=== PATIENT | male | born 1955 | race Caucasian/White ===

== ENCOUNTER 2020-05-01 12:08 | Emergency (ER) | payer OTHER, SELFPAY ==
--- NOTE | 2020-05-01 | ECG_ITS ---
Test Reason : CHEST PAIN Blood Pressure : / mmHG Vent. Rate : 082 BPM Atrial Rate : 357 BPM P-R Int : 000 ms QRS Dur : 086 ms QT Int : 392 ms P-R-T Axes : 000 -01 -10 degrees QTc Int : 457 ms Atrial fibrillation Abnormal ECG When compared to the previous EKG of No significant changes seen Referred By: Generic ED Physician Electronically Signed By:ANDIE DAVISON MD
[2020-05-01 12:40] VITALS: BP 157/98; PULSE 78; RESP 15; TEMP 36.6; O2SAT 98; BMI 35.6
--- NOTE | 2020-05-01 13:07 | XR_ITS ---
EXAMINATION: XR CHEST CLINICAL INFORMATION: Chest pain. COMPARISON: Chest 11/10/2018 TECHNIQUE: 2 views of the chest were obtained. FINDINGS: The lungs are well-expanded and clear of acute process. The heart size and pulmonary vascularity is normal. There is a healed fracture left posterior seventh rib. There is moderate spondylosis mid and lower dorsal spine. No lytic process. XR/XR chest 2V IMPRESSION: Unremarkable chest exam. Healing fracture left posterior seventh rib
[2020-05-01 13:09] VITALS: BP 154/106; PULSE 78; PULSE 79; RESP 16; O2SAT 96
--- NOTE | 2020-05-01 13:13 | ED_ITS ---
HPI - Chest Pain General Chief Complaint: Chest Pain Stated Complaint: chest pain Time Seen by Provider: 05/01/20 13:06 Source: patient and full time staff interpreter Mode of arrival: ambulatory Limitations: language barrier (conference interpreter) History of Present Illness HPI narrative: 64-year-old male with a past medical history of AFib on Eliquis, hypertension, hyperlipidemia, hernia repair here with chest and abdominal pain since 15:00 yesterday. The patient tells me he was eating shrimp yesterday at 15:00 and started to feel heaviness in his chest and upper abdomen. Intermittent pain since then. Worsened with eating, drinking and taking his morning medications. No associated nausea, diaphoresis, shortness of breath, dizziness, vomiting, fevers, chills, cough. MD complaint: chest heaviness Onset (ago): day(s) (<24 hrs) Timing of current episode: episodic Onset: after eating Pain location: substernal Pain radiation: abdomen Severity: mild Quality: heaviness Relieving factors: nothing Exacerbating factors: eating Treatment prior to arrival: none Related Data Allergies Allergy/AdvReac Type Severity Reaction Status Date / Time Iodinated Contrast Media Allergy Unknown HIVES Unverified 01/27/20 16:43 [CONTRAST, IV] kiwi [KIWI] Allergy Unknown THROAT Unverified 01/27/20 16:43 SWELLING kiwi Allergy Unknown anaphylaxis Uncoded 01/10/20 00:00 IV contrast AdvReac Unknown swelling Uncoded 01/10/20 00:00 Review of Systems Review of Systems: Yes all other systems are reviewed and are negative Constitutional: Constitutional: Reports no additional constitutional complaints, Denies body ache(s), Denies chills, Denies fever(s), Denies headache(s) and Denies weakness Eyes: Eyes: Reports no additional eye complaints and Denies change in vision ENT: Reports system reviewed and no additional complaints, except as d ocumented, Denies dizziness, Denies headache(s), Denies nasal congestion, Denies nasal discharge and Denies neck pain Cardiovascular: Cardiovascular: Reports no additional cardiovascular complaints, Reports chest pain, Denies leg edema and Denies dyspnea Respiratory: Respiratory: Reports no additional respiratory complaints, Denies cough and Denies dyspnea Gastrointestinal: Gastrointestinal: Reports no additional gastrointestinal complaints, Reports abdominal pain, Denies diarrhea, Denies nausea and Denies vomiting Genitourinary: Genitourinary: Denies urinary incontinence Musculoskeletal: Musculoskeletal: Reports no additional musculoskeletal complaints, Denies back pain, Denies arthralgias, Denies joint swelling, Denies neck pain, Denies numbness and Denies tingling Integumentary/Breasts: Skin/Breast: Reports system reviewed and no additional complaints, except as docu and Denies rash Neurologic: Reports system reviewed and no additional complaints, except as documented, Denies Abnormal speech present, Denies dizziness, Denies headache(s), Denies numbness, Denies tingling and Denies weakness [facility] Past Medical History Medical History Anxiety HTN (hypertension) Hypothyroid Palpitation Social History Social History Alcohol intake: never Smoking Status: Former smoker Use of substances other than those prescribed or required for medical reasons: No Advance Directives: No Advance Directives Information Provided: No Physical Exam Vital Signs: Vital Signs: Last Vital Signs Temp 98 F 05/01/20 12:40 Pulse 74 05/01/20 14:18 Resp 20 05/01/20 14:18 BP 164/98 H 05/01/20 14:18 Pulse Ox 98 05/01/20 14:18 Body Mass Index 35.6 Const: General: cooperative, healthy appearing, comfortable and no acute distress Orientation/consciousness: patient oriented x3 Limitations: no limitations HENMT: Head: Yes normal to inspection Ears: hearing grossly normal bilaterally General nose exam: Normal external nose present Face and sinus: Yes normal facial exam Mouth: Normal oral and palatal mucosa present Throat: Yes posterior oropharynx normal Eyes: General: appearance normal, both eyes and all related structures Pupils: Equal, round and reactive pupils present Neck: Neck: Yes normal visual inspection Chest: Other: Central chest tender to palpation Chest palpation & inspection: normal inspection of the chest Resp: Effort & Inspection: normal respiratory effort Auscultation: clear to auscultation bilaterally Cardio: Rate: regular rate Rhythm: regular rhythm Peripheral pulses: Peripheral pulses 2+ throughout GI: Inspection: Yes normal to inspection Palpation (GI): Soft to palpation and Tenderness to palpation present (GI) (No rebound or guarding) in the epigastrum Auscultation: normal bowel sounds Back/Spine/Pelvis: Thoracic/Lumbar Spine: thoracic and lumbar spine normal to inspection Skin: General skin exam: no rashes or lesions noted Neuro: General: patient oriented x3, no focal motor deficits and normal sensation to monofilament Cranial nerves: Yes Equal, round and reactive pupils present Cognition (Neuro): normal cognition Speech: No Abnormal speech present Gait exam (Neuro): Normal gait present Motor exam (neuro): 5/5 motor strength present throughout Extrem: General: Yes normal to inspection Course Course Course Narrative: 64-year-old male here with upper abdominal pain and chest pain after eating shrimp yesterday. No other associated symptoms. Patient has mild tenderness in the epigastric and some mild tenderness over the central chest. Well appearing, stable vital signs. Will check labs including troponin, EKG, chest x-ray. 1430-EKG, chest x-ray unremarkable. Labs including troponin unremarkable as well. The patient tells me he has pain is completely resolved after receiving a GI cocktail here. More likely gastritis or GERD. Discussed dietary changes with the patient. Reviewed follow-up with primary care. Reviewed worrisome signs and symptoms and when to return to the emergency department. Comfortable discharge home. MDM - Chest Pain MDM Narrative Medical decision making narrative: ACS, gastritis, GERD, cholecystitis, cholelithiasis Less likely ACS with symptoms greater than 24 hours, negative troponin and unr emarkable EKG from baseline. Less likely gallstones or acute cholecystitis with no right upper quadrant abdominal pain, normal LFTs, resolved min of symptoms with GI cocktail here. More likely gastritis or GERD. Medical Records Data Attestation: I reviewed the patient's medical records. Lab Data Attestation: I reviewed the patient's lab results. Result diagrams: 05/01/20 13:30 05/01/20 13:30 Labs: Lab Results 05/01/20 05/01/20 05/01/20 Range/Units 13:30 13:30 13:30 WBC 7.4 (4.8-10.8) X10*3/uL RBC 5.04 (4.60-5.80) X10*6/uL Hgb 16.0 (14.0-18.0) g/dl Hct 46.4 (42-52) % MCV 92.1 (80-98) fL MCH 31.7 (27.0-33.0) pg MCHC 34.5 (31.0-36.0) g/dl RDW 11.7 (11.0-16.0) % Plt Count 200 (160-400) X10*3/uL MPV 10.5 (9.4-12.4) fL Immature Gran % (Auto) 0.4 (0.0-0.4) % Neut % (Auto) 65.5 (45-73) % Lymph % (Auto) 20.3 (20-40) % Lanier % (Auto) 12.2 H (2-11) % Eos % (Auto) 1.1 (0-4) % Baso % (Auto) 0.5 (0-2) % Lymph # (Auto) 1.5 (1.2-4.9) X10*3/uL Lanier # (Auto) 0.9 (0.1-1.2) X10*3/uL Eos # (Auto) 0.1 (0.0-0.4) X10*3/uL Baso # (Auto) 0.0 (0.0-0.2) X10*3/uL Abs Immat Gran (auto) 0.03 (0.00-0.03) X10*3/uL Absolute Neuts (auto) 4.9 (2.0-8.3) X10*3/uL Absolute Nucleated RBC 0.000 (0.0-0.012) X10*3/uL Nucleated RBC % (auto) 0.0 (0.0-0.2) /100WBC Hold Blue Top Sodium 141 (135-145) mmol/L Potassium 3.7 (3.3-5.1) mmol/l Chloride 104 (96-108) mmol/L Carbon Dioxide 27 (22-29) mmol/L Anion Gap 14 (12-20) BUN 14 (9-16) mg/dL Creatinine 0.94 (0.5-1.4) mg/dL Estim Creat Clear Calc 87.9 Estimated GFR > 60 Random Glucose 102 (60-115) mg/dL Calcium 9.4 (8.4-10.2) mg/dL Magnesium 2.1 (1.6-2.6) mg/dL Total Bilirubin 1.1 H (0.0-1.0) mg/dL Direct Bilirubin 0.4 (0.0-0.5) mg/dL AST 30 (5-37) U/L ALT 37 (0-40) U/L Alkaline Phosphatase 72 (39-117) U/L Troponin I High Sens < 3.5 (<3.5-35.0) ng/L Total Protein 7.5 (6.5-8.0) g/dL Albumin 4.5 (3.5-5.0) g/dL Lipase 59 (8-78) U/L 05/01/20 Range/Units 13:30 WBC (4.8-10.8) X10*3/uL RBC (4.60-5.80) X10*6/uL Hgb (14.0-18.0) g/dl Hct (42-52) % MCV (80-98) fL MCH (27.0-33.0) pg MCHC (31.0-36.0) g/dl RDW (11.0-16.0) % Plt Count (160-400) X10*3/uL MPV (9.4-12.4) fL Immature Gran % (Auto) (0.0-0.4) % Neut % (Auto) (45-73) % Lymph % (Auto) (20-40) % Lanier % (Auto) (2-11) % Eos % (Auto) (0-4) % Baso % (Auto) (0-2) % Lymph # (Auto) (1.2-4.9) X10*3/uL Lanier # (Auto) (0.1-1.2) X10*3/uL Eos # (Auto) (0.0-0.4) X10*3/uL Baso # (Auto) (0.0-0.2) X10*3/uL Abs Immat Gran (auto) (0.00-0.03) X10*3/uL Absolute Neuts (auto) (2.0-8.3) X10*3/uL Absolute Nucleated RBC (0.0-0.012) X10*3/uL Nucleated RBC % (auto) (0.0-0.2) /100WBC Hold Blue Top SEE NOTE Sodium (135-145) mmol/L Potassium (3.3-5.1) mmol/l Chloride (96-108) mmol/L Carbon Dioxide (22-29) mmol/L Anion Gap (12-20) BUN (9-16) mg/dL Creatinine (0.5-1.4) mg/dL Estim Creat Clear Calc Estimated GFR Random Glucose (60-115) mg/dL Calcium (8.4-10.2) mg/dL Magnesium (1.6-2.6) mg/dL Total Bilirubin (0.0-1.0) mg/dL Direct Bilirubin (0.0-0.5) mg/dL AST (5-37) U/L ALT (0-40) U/L Alkaline Phosphatase (39-117) U/L Troponin I High Sens (<3.5-35.0) ng/L Total Protein (6.5-8.0) g/dL Albumin (3.5-5.0) g/dL Lipase (8-78) U/L Imaging Data Chest x-ray: Attestation: I personally reviewed and interpreted this imaging study as follows: Radiologist's impression: EXAMINATION: XR CHEST CLINICAL INFORMATION: Chest pain. COMPARISON: Chest 11/10/2018 TECHNIQUE: 2 views of the chest were obtained. FINDINGS: The lungs are well-expanded and clear of acute process. The heart size and pulmonary vascularity is normal. There is a healed fracture left posterior seventh rib. There is moderate spondylosis mid and lower dorsal spine. No lytic process. XR/XR chest 2V IMPRESSION: Unremarkable chest exam. Healing fracture left posterior seventh rib ECG Data ECG #1: Attestation: I personally reviewed and interpreted this ECG as follows: ECG interpretation date: 05/01/20 ECG interpretation time: 12:12 Interpretation: AFib with a rate of 82, normal QRS, normal QT Discharge Plan Discharge Clinical Impression: Gastritis Qualifiers: Gastritis type: unspecified gastritis Chronicity: acute Gastritis bleeding: without bleeding Qualified Code(s): K29.00 - Acute gastritis without bleeding Patient Disposition: Home, Self-Care Instructions: Gastritis (ED) Additional Instructions: Avoid fatty, greasy, spicy foods. After eating make sure you stay sitting up for at least 30 minutes. Follow-up with your primary care doctor Continue your [facility] Referrals: Gemini Chavez MD [Primary Care Provider] - 2 days Interventions: ED Discharge Assessment Last Done: 05/01/20 15:08 Discharge Date/Time: 05/01/20 15:09
[2020-05-01] MEDS: Lidocaine HCl Viscous 2 % 15 ML SOLUTION MUCOUS MEM (13:36)
[2020-05-01] MEDS: Magnesium Hydrox/Alum Hydrox 30 ML ORAL.SUSP PO (13:37)
[2020-05-01 13:38] LABS: MANUAL DIFF FLAG NO
[2020-05-01] MEDS: Famotidine/PF 20 MG/2 ML VIAL IVPUSH (13:39)
[2020-05-01 13:44] LABS: Basophils Percent Auto 0.5 % (0-2); Eosinophils Absolute Auto 0.1 X10*3/uL (0.0-0.4); Eosinophils Percent Auto 1.1 % (0-4); Hematocrit 46.4 % (42-52); Imm Gran Abs Auto 0.03 X10*3/uL (0.00-0.03); Imm Gran Pct Auto 0.4 % (0.0-0.4); Lymphocytes Absolute Auto 1.5 X10*3/uL (1.2-4.9); Lymphocytes Percent Auto 20.3 % (20-40); Mean Corpuscular HGB Conc 34.5 g/dl (31.0-36.0); Mean Corpuscular Hemoglobin 31.7 pg (27.0-33.0); Mean Corpuscular Volume 92.1 fL (80-98); Mean Platelet Volume 10.5 fL (9.4-12.4); Monocytes Absolute Auto 0.9 X10*3/uL (0.1-1.2); Monocytes Percent Auto 12.2 % (2-11); Neutrophils Absolute Auto 4.9 X10*3/uL (2.0-8.3); Neutrophils Percent Auto 65.5 % (45-73); Platelet Count 200 X10*3/uL (160-400); Red Blood Count 5.04 X10*6/uL (4.60-5.80); Red Cell Distribution Width 11.7 % (11.0-16.0); White Blood Count 7.4 X10*3/uL (4.8-10.8)
[2020-05-01 14:09] LABS: Alanine Aminotransferase 37 U/L (0-40); Albumin Level 4.5 g/dL (3.5-5.0); Alkaline Phosphatase 72 U/L (39-117); Anion Gap 14 (12-20); Aspartate Amino Transferase 30 U/L (5-37); Bilirubin Direct 0.4 mg/dL (0.0-0.5); Bilirubin Total 1.1 mg/dL (0.0-1.0); Blood Urea Nitrogen 14 mg/dL (9-16); Calcium 9.4 mg/dL (8.4-10.2); Carbon Dioxide 27 mmol/L (22-29); Chloride 104 mmol/L (96-108); Creatinine Clr Calc Pharmacy 87.9; Estimated Glomerular Filt Rate > 60; Glucose Random 102 mg/dL (60-115); Lipase 59 U/L (8-78); Magnesium 2.1 mg/dL (1.6-2.6); Potassium 3.7 mmol/l (3.3-5.1); Sodium 141 mmol/L (135-145); Total Protein 7.5 g/dL (6.5-8.0)
[2020-05-01 14:15] LABS: Troponin-I High Sensitivity < 3.5 ng/L (<3.5-35.0)
[2020-05-01 14:18] VITALS: BP 164/98; PULSE 74; RESP 20; O2SAT 98
== END 2020-05-01 15:09 | disposition home or self-care (01) ==
PROVIDERS: Nurse Practitioner Family; Emergency Provider Emergency Medicine; PCP Internal Medicine
DX: K29.00 Acute gastritis without bleeding (principal); I10 Essential (primary) hypertension
CPT/HCPCS: 36415; 71046; 80048; 80076; 83690; 83735; 84484; 85025; 93005; 99284

== ENCOUNTER → 2020-05-24 13:29 | Outpatient (BNVA) | payer OTHER, SELFPAY | PROVIDERS: PCP Internal Medicine; Visit Provider Internal Medicine | DX: J44.9 Chronic obstructive pulmonary disease, unspecified (principal); J30.9 Allergic rhinitis, unspecified; G47.33 Obstructive sleep apnea (adult) (pediatric); E66.9 Obesity, unspecified; Z68.36 Body mass index [BMI] 36.0-36.9, adult; Z79.51 Long term (current) use of inhaled steroids; Z71.3 Dietary counseling and surveillance | CPT/HCPCS: 99212 ==

== ENCOUNTER → 2020-06-30 08:27 | Outpatient (BNVA) | payer OTHER, SELFPAY | PROVIDERS: PCP Internal Medicine; Visit Provider Nurse Practitioner | DX: K76.0 Fatty (change of) liver, not elsewhere classified (principal); K21.9 Gastro-esophageal reflux disease without esophagitis; K76.9 Liver disease, unspecified | CPT/HCPCS: Q3014 ==

== ENCOUNTER 2020-07-19 10:34 | Outpatient (REF) | payer OTHER, SELFPAY | END 2020-07-19 10:35 | disposition home or self-care (01) | LOC: HO.LAB 10:34 | PROVIDERS: Visit Provider Internal Medicine | DX: Z20.822 Contact with and (suspected) exposure to COVID-19 (principal) | CPT/HCPCS: 36415; C9803; U0003; U0005 ==

== ENCOUNTER → 2020-07-21 09:04 | Outpatient (BNVA) | payer OTHER, SELFPAY | PROVIDERS: PCP Internal Medicine; Visit Provider Nurse Practitioner | DX: Z13.89 Encounter for screening for other disorder (principal) | CPT/HCPCS: Q3014 ==

== ENCOUNTER 2020-07-26 06:21 | Outpatient (REF) | payer OTHER, SELFPAY ==
[2020-07-26 07:33] LABS: Alanine Aminotransferase 46 U/L (0-40); Albumin Level 4.2 g/dL (3.5-5.0); Alkaline Phosphatase 67 U/L (39-117); Aspartate Amino Transferase 31 U/L (5-37); Bilirubin Direct 0.3 mg/dL (0.0-0.5); Bilirubin Total 1.1 mg/dL (0.0-1.0); Total Protein 6.9 g/dL (6.5-8.0)
[2020-07-28 12:21] LABS: Alpha Fetoprotein 3.3 ng/mL (<6.1)
== END 2020-07-26 06:22 | disposition home or self-care (01) ==
LOC: HO.LAB 06:21
PROVIDERS: PCP Internal Medicine; Visit Provider Nurse Practitioner
DX: K76.0 Fatty (change of) liver, not elsewhere classified (principal)
CPT/HCPCS: 36415; 80076; 82105

== ENCOUNTER 2020-08-11 07:40 | Outpatient (REF) | payer OTHER, SELFPAY ==
--- NOTE | ~2020-08-11 | US_ITS ---
EXAMINATION: US ABDOMEN COMPLETE CLINICAL INFORMATION: Fatty liver. COMPARISON: None TECHNIQUE: Real-time imaging of the abdominal viscera. FINDINGS: PANCREAS: Normal. ABDOMINAL AORTA: The proximal, mid, and distal segments are normal in caliber. INFERIOR VENA CAVA: Visualized portions are normal. LIVER: The liver is normal in size. The liver contour is normal. Parenchymal echogenicity is increased. No focal hepatic lesion. There is no intrahepatic biliary duct dilatation seen. There is no liver mass seen on today's exam. GALLBLADDER: Normal. The gallbladder is physiologically distended without evidence of stones, sludge, polyps, wall thickening or pericholecystic fluid. COMMON BILE DUCT: Normal in caliber measuring 0.3 cm in diameter. RIGHT KIDNEY: There is an echogenic stone midpole measuring 0.4 x 0.4 cm. There are 2 anechoic cysts. A midpole cyst measures 1.7 x 1.4 x 1.7 cm. Upper pole cyst measures 2.2 x 2.4 x 2.0 cm. No hydronephrosis. No renal calculi or focal parenchymal lesions. The kidney measures 11.7 cm in maximum dimension. LEFT KIDNEY: Normal. No hydronephrosis. No renal calculi or focal parenchymal lesions. The kidney measures 11.0 cm in maximum dimension. SPLEEN: Normal. The spleen measures 10.2 cm in maximum dimension. FREE FLUID: None. US/US abdomen complete IMPRESSION: Nonobstructive echogenic stone midpole and 2 cysts in right kidney. Mild hepatic steatosis. No focal lesion seen on the today's exam. On previous exam, there was a 1.9 cm heterogeneous lesion in the left hepatic lobe.
== END 2020-08-11 07:41 | disposition home or self-care (01) ==
LOC: HO.US 07:40
PROVIDERS: PCP Internal Medicine; Visit Provider Nurse Practitioner
DX: K76.0 Fatty (change of) liver, not elsewhere classified (principal)
CPT/HCPCS: 76700

== ENCOUNTER 2020-11-13 14:16 | Emergency (ER) | payer OTHER, SELFPAY ==
--- NOTE | ~2020-11-13 | XR_ITS ---
EXAMINATION: XR CHEST [id number] CLINICAL INFORMATION: Cough, wheezing. Right foot injury to the great toe. COMPARISON: Chest radiograph done on 05/01/2020. TECHNIQUE: 2 views of the chest and 3 views of the right foot were obtained. FINDINGS: Chest: Both lungs are symmetrically expanded and appear clear. The cardiac mediastinal silhouette is within normal limit. No evidence of any pleural effusion or pneumothorax. No significant change. Right foot: The bony alignment is intact. The cortices are intact. The articular margins, joint space appear unremarkable. Mild diffuse osteopenia is noted. This noted at the insertional site of the Achilles tendon to the calcaneus. XR/XR chest 2V IMPRESSION: 1. Unremarkable radiographic appearance of the chest, unchanged since 05/01/2020. 2. No radiographic evidence of any displaced right great toe fracture. Mild diffuse osteopenia.
--- NOTE | ~2020-11-13 | XR_ITS ---
EXAMINATION: XR CHEST [id number] CLINICAL INFORMATION: Cough, wheezing. Right foot injury to the great toe. COMPARISON: Chest radiograph done on 05/01/2020. TECHNIQUE: 2 views of the chest and 3 views of the right foot were obtained. FINDINGS: Chest: Both lungs are symmetrically expanded and appear clear. The cardiac mediastinal silhouette is within normal limit. No evidence of any pleural effusion or pneumothorax. No significant change. Right foot: The bony alignment is intact. The cortices are intact. The articular margins, joint space appear unremarkable. Mild diffuse osteopenia is noted. This noted at the insertional site of the Achilles tendon to the calcaneus. XR/XR foot RT 2V IMPRESSION: 1. Unremarkable radiographic appearance of the chest, unchanged since 05/01/2020. 2. No radiographic evidence of any displaced right great toe fracture. Mild diffuse osteopenia.
[2020-11-13 14:30] VITALS: BP 152/95; PULSE 91; RESP 22; TEMP 37.3; O2SAT 98; BMI 35.5
--- NOTE | 2020-11-13 15:48 | ECG_ITS ---
Test Reason : SOB/CHEST PAIN Blood Pressure : / mmHG Vent. Rate : 093 BPM Atrial Rate : 054 BPM P-R Int : 000 ms QRS Dur : 084 ms QT Int : 372 ms P-R-T Axes : 000 034 015 degrees QTc Int : 462 ms Atrial fibrillation Abnormal ECG No significant changes when compared with the previous EKG of 01 may 2020 Referred By: Summer Swenson Electronically Signed By:ANDREWS MARTINS
--- NOTE | 2020-11-13 16:05 | ED.SOB ---
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 Also is feeling wheezy and using his albuterol MDI with continued symptoms. No fevers, chills, body aches or leg swelling or pain. No weight gain. Patient has been compliant with all of his medications. He did receive a COVID vaccine 2 months ago x 2 (moderna). no recent travel or sick contact. patient is also complaining of right great toe pain. He tells me yesterday a heavy object fall on his toe causing pain. Related Data Home Medications Medication Instructions Recorded Confirmed acetaminophen 500 mg tablet 500 mg PO Q6H PRN 05/24/20 apixaban 5 mg tablet 5 mg PO BID 05/24/20 cholecalciferol (vitamin D3) 50 50 mcg PO DAILY 05/24/20 mcg (2,000 unit) tablet clonazepam 1 mg tablet 1 mg PO BID PRN 05/24/20 flu vacc [id number] 6mos up(PF) ml IM 05/24/20 fluticasone propionate 220 2 puff INHALATION BID 05/24/20 mcg/actuation HFA aerosol inhaler furosemide 40 mg tablet 0 mg PO 05/24/20 hydroxyzine pamoate 25 mg capsule 25 mg PO BID 05/24/20 levothyroxine 100 mcg tablet 100 mcg PO DAILY 05/24/20 lisinopril 40 mg tablet 40 mg PO DAILY 05/24/20 loratadine 10 mg tablet 10 mg PO DAILY 05/24/20 metoprolol succinate 200 mg 200 mg PO DAILY 05/24/20 tablet,extended release 24 hr rosuvastatin 40 mg tablet 40 mg PO DAILY 05/24/20 umeclidinium 62.5 mcg/actuation 1 inh INHALATION DAILY 05/24/20 blister powder for inhalation vitamin E (dl, acetate) 400 unit 400 unit PO BID 05/24/20 capsule zolpidem 10 mg tablet 10 mg PO BEDTIME PRN 05/24/20 Previous Rx's Medication Instructions Recorded omeprazole 20 mg capsule,delayed 20 mg PO DAILY 30 Days #30 cap 07/21/20 release benzonatate [Tessalon Perles] 100 mg PO TID PRN #10 cap 11/13/20 prednisone 40 mg PO DAILY #8 tab 11/13/20 Allergies Allergy/AdvReac Type Severity Reaction Status Date / Time Iodinated Contrast Media Allergy Unknown HIVES Verified 07/21/20 09:09 [CONTRAST, IV] kiwi [KIWI] Allergy Unknown THROAT Verified 07/21/20 09:09 SWELLING Review of Systems Review of Systems: Yes all other systems are reviewed and are negative Constitutional: Constitutional: Reports no additional constitutional complaints, Denies body ache(s), Denies chills, Denies fever(s), Denies headache(s) and Denies weakness Eyes: Eyes: Reports no additional eye complaints and Denies change in vision ENT: Reports system reviewed and no additional complaints, except as documented, Denies dizziness, Denies headache(s), Denies nasal congestion, Denies nasal discharge and Denies neck pain Cardiovascular: Cardiovascular: Reports no additional cardiovascular complaints, Reports chest pain, Denies leg edema and Reports dyspnea Respiratory: Respiratory: Reports no additional respiratory complaints, Reports cough and Reports dyspnea Gastrointestinal: Gastrointestinal: Reports no additional gastrointestinal complaints, Denies abdominal pain, Denies diarrhea, Denies nausea and Denies vomiting Genitourinary: Genitourinary: Denies urinary incontinence Musculoskeletal: Musculoskeletal: Reports no additional musculoskeletal complaints, Denies back pain, Reports arthralgias, Denies joint swelling, Denies neck pain, Denies numbness and Denies tingling Integumentary/Breasts: Skin/Breast: Reports system reviewed and no additional complaints, except as docu and Denies rash Neurologic: Reports system reviewed and no additional complaints, except as documented, Denies Abnormal speech present, Denies dizziness, Denies headache(s), Denies numbness, Denies tingling and Denies weakness PMFSH Past Medical History Attestation statement: The following information was validated with the patient. Source: old records reviewed and nursing notes reviewed Medical History (Updated 11/13/20 @ 18:05 by Summer Swenson NP) Afib Allergic rhinitis Anxiety CHF (congestive heart failure) COPD (chronic obstructive pulmonary disease) HTN (hypertension) Hypothyroid Obesity (BMI 30-39.9) CE (obstructive sleep apnea) Palpitation Surgical History History of surgery on arm Hx of colonoscopy Hx of eye surgery Hx of knee surgery Hx of tonsillectomy Family History Family History Family/Other No problems noted. Social History Social History Alcohol intake: never Patient Tobacco Use Status: Never used Tobacco Use of substances other than those prescribed or required for medical reasons: No Advance Directives: No Advance Directives Information Provided: No Physical Exam Vital Signs: Vital Signs: Last Vital Signs Temp 98.0 F 11/13/20 16:56 Pulse 105 H 11/13/20 16:56 Resp 20 11/13/20 16:56 BP 147/99 H 11/13/20 16:56 Pulse Ox 97 11/13/20 16:56 Body Mass Index 35.5 Const: General: cooperative, healthy appearing, comfortable and no acute distress Orientation/consciousness: patient oriented x3 Limitations: no limitations HENMT: Head: Yes normal to inspection Ears: hearing grossly normal bilaterally General nose exam: Normal external nose present Face and sinus: Yes normal facial exam Mouth: Normal oral and palatal mucosa present Throat: Yes posterior oropharynx normal Eyes: General: appearance normal, both eyes and all related structures Pupils: Equal, round and reactive pupils present Neck: Neck: Yes normal visual inspection Chest: Chest palpation & inspection: normal inspection of the chest Resp: Other: Mild tachypnea with a rate of 22 Prolonged expiration Mild expiratory wheezing bilaterally Cardio: Rate: regular rate Rhythm: regular rhythm Peripheral pulses: Peripheral pulses 2+ throughout GI: Inspection: Yes normal to inspection Palpation (GI): Soft to palpation and nontender Auscultation: normal bowel sounds Back/Spine/Pelvis: Thoracic/Lumbar Spine: thoracic and lumbar spine normal to inspection Skin: General skin exam: no rashes or lesions noted Neuro: General: patient oriented x3, no focal motor deficits and normal sensation to monofilament Cranial nerves: Yes Equal, round and reactive pupils present Cognition (Neuro): normal cognition Speech: No Abnormal speech present Gait exam (Neuro): Normal gait present Motor exam (neuro): 5/5 motor strength present throughout Extrem: Other: To the right great toe there is mild tenderness. There is scant bleeding noting around the nail bed but the nail is intact. Mild tenderness with flexion of the toe but patient is able General: Yes normal to inspection, Yes no pedal edema and Yes no calf tenderness Course Course Course Narrative: 64-year-old male here with complaints of shortness of breath, chest tightness, nonproductive cough and wheezing since yesterday. Also complaining of right great toe pain with a injury which occurred yesterday. On exam the patient has mild tachypnea with expiratory wheezing and prolonged expirations. Likely COPD exacerbation. No leg swelling or calf pain. Will check chest x-ray, EKG, labs. Will give DuoNeb, Solu-Medrol, magnesium IV. Will also check COVID screen. X-ray of right great toe to rule out fracture 1800- labs are unremarkable. The patient has a mildly elevated BNP but actually is improved from previous levels. Clinically he is not in congestive heart failure. His chest x-ray is normal. EKG and troponin are negative. He is in AFib with a rate of 80-90 and is currently anticoagulated on Eliquis.. He is feeling improved. He was able to ambulate in the room with no tachypnea and oxygen saturation greater than 96%. Likely COPD exacerbation. Will discharge patient home with burst of prednisone. He tells me he has adequate albuterol at home. His x-ray of his right toe was negative for acute fracture. The area was cleansed and a topical antibiotic ointment and wrap were placed. Reviewed worrisome signs and symptoms and when to return to the emergency department. Comfortable discharge home. MDM - SOB/Dyspnea MDM Narrative Medical decision making narrative: less likely CHF with no clinical findings of CHF, normal cxr less likely PE with no clinical findings concerning for DVT, no tachypnea, hypoxia. He does have some tachycardia which is likely secondary to albuterol and improved with time. He is also currently anticoagulated less likely ACS with atypical chest pain, an EKG which shows no ischemic changes and a troponin which is negative with symptoms greater than 24 hours Differential Diagnosis Differential diagnosis: Likely acute exacerbation of chronic obstructive airways disease, congestive heart failure, pneumonia and pulmonary embolism Medical Records Attestation: I reviewed the patient's medical records. Lab Data Attestation: I reviewed the patient's lab results. Result diagrams: 11/13/20 16:36 11/13/20 16:36 Labs: Lab Results 11/13/20 11/13/20 11/13/20 Range/Units 16:36 16:36 16:36 WBC 11.6 H (4.8-10.8) X10*3/uL RBC 4.75 (4.60-5.80) X10*6/uL Hgb 15.3 (14.0-18.0) g/dl Hct 44.4 (42-52) % MCV 93.5 (80-98) fL MCH 32.2 (27.0-33.0) pg MCHC 34.5 (31.0-36.0) g/dl RDW 11.9 (11.0-16.0) % Plt Count 189 (160-400) X10*3/uL MPV 10.3 (9.4-12.4) fL Immature Gran % (Auto) 0.2 (0.0-0.4) % Neut % (Auto) 76.7 H (45-73) % Lymph % (Auto) 13.2 L (20-40) % [place] % (Auto) 9.3 (2-11) % Eos % (Auto) 0.4 (0-4) % Baso % (Auto) 0.2 (0-2) % Lymph # (Auto) 1.5 (1.2-4.9) X10*3/uL [place] # (Auto) 1.1 (0.1-1.2) X10*3/uL Eos # (Auto) 0.1 (0.0-0.4) X10*3/uL Baso # (Auto) 0.0 (0.0-0.2) X10*3/uL Abs Immat Gran (auto) 0.02 (0.00-0.03) X10*3/uL Absolute Neuts (auto) 8.9 H (2.0-8.3) X10*3/uL Absolute Nucleated RBC 0.000 (0.0-0.012) X10*3/uL Nucleated RBC % (auto) 0.0 (0.0-0.2) /100WBC Sodium 144 (135-145) mmol/L Potassium 3.5 (3.3-5.1) mmol/L Chloride 109 H (96-108) mmol/L Carbon Dioxide 24 (22-29) mmol/L Anion Gap 15 (12-20) BUN 10 (9-16) mg/dL Creatinine 0.94 (0.5-1.4) mg/dL Estim Creat Clear Calc 87.8 Estimated GFR > 60 Random Glucose 155 H D (60-115) mg/dL Calcium 9.6 (8.4-10.2) mg/dL Magnesium 2.0 (1.6-2.6) mg/dL Total Bilirubin 0.8 (0.0-1.0) mg/dL Direct Bilirubin 0.2 (0.0-0.5) mg/dL AST 37 (5-37) U/L ALT 58 H (0-40) U/L Alkaline Phosphatase 70 (39-117) U/L Troponin I High Sens < 3.5 (<3.5-35.0) ng/L B-Natriuretic Peptide (<100) pg/mL Total Protein 7.0 (6.5-8.0) g/dL Albumin 4.2 (3.5-5.0) g/dL COVID-19 (KRISTEN) (Negative) COVID-19 Clin Com 11/13/20 11/13/20 Range/Units 16:36 17:02 WBC (4.8-10.8) X10*3/uL RBC (4.60-5.80) X10*6/uL Hgb (14.0-18.0) g/dl Hct (42-52) % MCV (80-98) fL MCH (27.0-33.0) pg MCHC (31.0-36.0) g/dl RDW (11.0-16.0) % Plt Count (160-400) X10*3/uL MPV (9.4-12.4) fL Immature Gran % (Auto) (0.0-0.4) % Neut % (Auto) (45-73) % Lymph % (Auto) (20-40) % [place] % (Auto) (2-11) % Eos % (Auto) (0-4) % Baso % (Auto) (0-2) % Lymph # (Auto) (1.2-4.9) X10*3/uL [place] # (Auto) (0.1-1.2) X10*3/uL Eos # (Auto) (0.0-0.4) X10*3/uL Baso # (Auto) (0.0-0.2) X10*3/uL Abs Immat Gran (auto) (0.00-0.03) X10*3/uL Absolute Neuts (auto) (2.0-8.3) X10*3/uL Absolute Nucleated RBC (0.0-0.012) X10*3/uL Nucleated RBC % (auto) (0.0-0.2) /100WBC Sodium (135-145) mmol/L Potassium (3.3-5.1) mmol/L Chloride (96-108) mmol/L Carbon Dioxide (22-29) mmol/L Anion Gap (12-20) BUN (9-16) mg/dL Creatinine (0.5-1.4) mg/dL Estim Creat Clear Calc Estimated GFR Random Glucose (60-115) mg/dL Calcium (8.4-10.2) mg/dL Magnesium (1.6-2.6) mg/dL Total Bilirubin (0.0-1.0) mg/dL Direct Bilirubin (0.0-0.5) mg/dL AST (5-37) U/L ALT (0-40) U/L Alkaline Phosphatase (39-117) U/L Troponin I High Sens (<3.5-35.0) ng/L B-Natriuretic Peptide 222 H (<100) pg/mL Total Protein (6.5-8.0) g/dL Albumin (3.5-5.0) g/dL COVID-19 (KRISTEN) Negative (Negative) COVID-19 Clin Com See Note Imaging Data Chest x-ray: Attestation: I personally reviewed and interpreted this imaging study as follows: Radiologist's impression: FINDINGS: Chest: Both lungs are symmetrically expanded and appear clear. The cardiac mediastinal silhouette is within normal limit. No evidence of any pleural effusion or pneumothorax. No significant change. right foot xray: Attestation: I personally reviewed and interpreted this imaging study as follows: Radiologist's impression: e.Right foot: The bony alignment is intact. The cortices are intact. The articular margins, joint space appear unremarkable. Mild diffuse osteopenia is noted. This noted at the insertional site of the Achilles tendon to the calcaneus ECG Data Attestation: I personally reviewed and interpreted this ECG as follows: ECG interpretation date: 11/13/20 ECG interpretation time: 15:44 Interpretation: AFib with rate of 93, normal QRS, normal QT Discharge Plan Discharge Clinical Impression: COPD (chronic obstructive pulmonary disease), Contusion of toe Patient Disposition: Home, Self-Care Instructions: COPD (Chronic Obstructive Pulmonary Disease) (ED), Contusion in Adults (ED) Additional Instructions: Next dose of prednisone tomorrow Increase fluids, rest Return for severe SOB, CP, fever >100.4 keep your toe covered, clean. return for increasing redness, drainage or fever or concern for infection Prescriptions: New prednisone 20 mg tablet 40 mg PO DAILY Qty: 8 RF: 0 benzonatate [Tessalon Perles] 100 mg capsule 100 mg PO TID PRN (Reason: cough) Qty: 10 RF: 0 No Action loratadine 10 mg tablet 10 mg PO DAILY RF: 0 zolpidem 10 mg tablet 10 mg PO BEDTIME PRNRF: 0 hydroxyzine pamoate 25 mg capsule 25 mg PO BID RF: 0 cholecalciferol (vitamin D3) 50 mcg (2,000 unit) tablet 50 mcg PO DAILY RF: 0 lisinopril 40 mg tablet 40 mg PO DAILY RF: 0 Eliquis 5 mg tablet 5 mg PO BID RF: 0 Incruse Ellipta 62.5 mcg/actuation blister with device 1 inh inhalation DAILY RF: 0 clonazepam 1 mg tablet 1 mg PO BID PRNRF: 0 vitamin E (dl, acetate) 400 unit capsule 400 unit PO BID RF: 0 Flovent HFA 220 mcg/actuation HFA aerosol inhaler 2 puff inhalation BID RF: 0 rosuvastatin 40 mg tablet 40 mg PO DAILY RF: 0 furosemide 40 mg tablet 0 mg PO RF: 0 metoprolol succinate 200 mg tablet extended release 24 hr 200 mg PO DAILY RF: 0 levothyroxine 100 mcg tablet 100 mcg PO DAILY RF: 0 acetaminophen 500 mg tablet 500 mg PO Q6H PRNRF: 0 Fluzone Quad (PF) 60 mcg (15 mcg x 4)/0.5 mL syringe IM RF: 0 omeprazole 20 mg capsule,delayed release(DR/EC) 20 mg PO DAILY 30 Days Qty: 30 RF: 6 Referrals: Gemini Chavez MD [Primary Care Provider] - 2 days Interventions: ED Discharge Assessment Last Done: 11/13/20 18:39 Discharge Date/Time: 11/13/20 18:39
[2020-11-13] MEDS: Albuterol/Iprat 2.5/0.5MG 3 ML AMPUL.NEB INHALE (16:33)
[2020-11-13 16:36] VITALS: PULSE 84; O2SAT 100
[2020-11-13] MEDS: methylPREDNISolone Sod Succ 125 MG/2 ML VIAL IVPUSH (16:39)
[2020-11-13] MEDS: Magnesium Sulfate/H2O 2 GM/50 ML PIGGYBACK IV (16:39)
[2020-11-13 16:41] LABS: MANUAL DIFF FLAG NO
[2020-11-13 16:43] LABS: Basophils Percent Auto 0.2 % (0-2); Eosinophils Absolute Auto 0.1 X10*3/uL (0.0-0.4); Eosinophils Percent Auto 0.4 % (0-4); Hematocrit 44.4 % (42-52); Hemoglobin 15.3 g/dl (14.0-18.0); Imm Gran Abs Auto 0.02 X10*3/uL (0.00-0.03); Imm Gran Pct Auto 0.2 % (0.0-0.4); Lymphocytes Absolute Auto 1.5 X10*3/uL (1.2-4.9); Lymphocytes Percent Auto 13.2 % (20-40); Mean Corpuscular HGB Conc 34.5 g/dl (31.0-36.0); Mean Corpuscular Hemoglobin 32.2 pg (27.0-33.0); Mean Corpuscular Volume 93.5 fL (80-98); Mean Platelet Volume 10.3 fL (9.4-12.4); Monocytes Absolute Auto 1.1 X10*3/uL (0.1-1.2); Monocytes Percent Auto 9.3 % (2-11); Neutrophils Absolute Auto 8.9 X10*3/uL (2.0-8.3); Neutrophils Percent Auto 76.7 % (45-73); Platelet Count 189 X10*3/uL (160-400); Red Blood Count 4.75 X10*6/uL (4.60-5.80); Red Cell Distribution Width 11.9 % (11.0-16.0); White Blood Count 11.6 X10*3/uL (4.8-10.8)
--- NOTE | 2020-11-13 16:45 | PC.NURSE ---
Pt alert and oriented x3, LS wheezes throughout. O2 sat 97-98% RA. His systolic bp high 150s. Pt has hx of asthma, he reports sob, non-productive cough, wheezing, and chest tightness starting yesterday. Symptoms worse when he woke up this morning and continued throughout the day. Pt states he has updraft machine and inhaler pump at home, he last used his inhaler this morning but no relief. Pt reports he is on Eliquis and a water pill but not able to remember the name. IV line has been established, labs drawn, meds given as documented. Pt in no apparent distress, Respiratory Therapist at bedside.
[2020-11-13 16:56] VITALS: BP 147/99; PULSE 105; RESP 20; TEMP 36.7; O2SAT 97
[2020-11-13] MEDS: guaiFENesin 100 MG/5 ML LIQUID PO (17:08)
[2020-11-13 17:14] LABS: Alanine Aminotransferase 58 U/L (0-40); Albumin Level 4.2 g/dL (3.5-5.0); Alkaline Phosphatase 70 U/L (39-117); Anion Gap 15 (12-20); Aspartate Amino Transferase 37 U/L (5-37); Bilirubin Direct 0.2 mg/dL (0.0-0.5); Bilirubin Total 0.8 mg/dL (0.0-1.0); Blood Urea Nitrogen 10 mg/dL (9-16); Calcium 9.6 mg/dL (8.4-10.2); Carbon Dioxide 24 mmol/L (22-29); Chloride 109 mmol/L (96-108); Creatinine Clr Calc Pharmacy 87.8; Estimated Glomerular Filt Rate > 60; Glucose Random 155 mg/dL (60-115); Potassium 3.5 mmol/L (3.3-5.1); Sodium 144 mmol/L (135-145)
[2020-11-13 17:16] LABS: B Type Natriuretic Peptide 222 pg/mL (<100)
[2020-11-13 17:17] LABS: Troponin-I High Sensitivity < 3.5 ng/L (<3.5-35.0)
[2020-11-13 17:30] LABS: COVID-19 Test Negative (Negative)
== END 2020-11-13 18:39 | disposition home or self-care (01) ==
PROVIDERS: Nurse Practitioner Family; Emergency Provider Emergency Medicine; PCP Internal Medicine
DX: J44.9 Chronic obstructive pulmonary disease, unspecified (principal); S90.111A Contusion of right great toe without damage to nail, initial encounter; I48.91 Unspecified atrial fibrillation; I11.0 Hypertensive heart disease with heart failure; I50.9 Heart failure, unspecified; Z79.01 Long term (current) use of anticoagulants; Z79.899 Other long term (current) drug therapy; W20.8XXA Other cause of strike by thrown, projected or falling object, initial encounter; Y93.9 Activity, unspecified; Y92.9 Unspecified place or not applicable; Y99.9 Unspecified external cause status; Z20.822 Contact with and (suspected) exposure to COVID-19
CPT/HCPCS: 36415; 71046; 73620; 80048; 80076; 83735; 83880; 84484; 85025; 87635; 93005; 94640; 96365; 96366; 96375; 99284; J2930; J3475

== ENCOUNTER → 2020-11-22 13:07 | Outpatient (BNVA) | payer OTHER, SELFPAY | PROVIDERS: PCP Internal Medicine; Visit Provider Internal Medicine | DX: J44.9 Chronic obstructive pulmonary disease, unspecified (principal); G47.33 Obstructive sleep apnea (adult) (pediatric); E66.9 Obesity, unspecified; J40 Bronchitis, not specified as acute or chronic | CPT/HCPCS: 99212 ==

== ENCOUNTER → 2021-01-22 09:42 | Outpatient (BNVA) | payer OTHER, SELFPAY | PROVIDERS: PCP Internal Medicine; Visit Provider Nurse Practitioner | CPT/HCPCS: Q3014 ==

== ENCOUNTER → 2021-03-20 12:40 | Outpatient (BNVA) | payer OTHER, SELFPAY | PROVIDERS: PCP Internal Medicine; Visit Provider Internal Medicine | DX: J44.9 Chronic obstructive pulmonary disease, unspecified (principal); G47.33 Obstructive sleep apnea (adult) (pediatric); J30.9 Allergic rhinitis, unspecified; E66.9 Obesity, unspecified; Z68.35 Body mass index [BMI] 35.0-35.9, adult; Z79.899 Other long term (current) drug therapy; Z91.19 Patient's noncompliance with other medical treatment and regimen | CPT/HCPCS: 99212 ==

== ENCOUNTER 2021-04-04 10:52 | Emergency (ER) | payer OTHER, SELFPAY ==
[2021-04-04 11:18] VITALS: BP 170/114; PULSE 90; RESP 18; TEMP 36.6; O2SAT 99; BMI 36.6
[2021-04-04 13:08] LABS: MANUAL DIFF FLAG NO
[2021-04-04 13:10] LABS: Basophils Percent Auto 0.5 % (0-2); Eosinophils Percent Auto 0.3 % (0-4); Hemoglobin 15.8 g/dl (14.0-18.0); Imm Gran Abs Auto 0.01 X10*3/uL (0.00-0.03); Imm Gran Pct Auto 0.2 % (0.0-0.4); Lymphocytes Absolute Auto 1.3 X10*3/uL (1.2-4.9); Mean Corpuscular HGB Conc 34.3 g/dl (31.0-36.0); Mean Corpuscular Hemoglobin 32.2 pg (27.0-33.0); Mean Corpuscular Volume 93.9 fL (80.0-98.0); Mean Platelet Volume 10.1 fL (9.4-12.4); Monocytes Absolute Auto 0.8 X10*3/uL (0.1-1.2); Monocytes Percent Auto 13.7 % (2-11); Neutrophils Absolute Auto 3.9 x10*3/uL (2.0-8.3); Neutrophils Percent Auto 64.3 % (45-73); Platelet Count 161 X10*3/uL (160-400); Red Cell Distribution Width 11.9 % (11.0-16.0); White Blood Count 6.1 X10*3/uL (4.8-10.8)
[2021-04-04 13:32] LABS: Alanine Aminotransferase 45 U/L (0-40); Albumin Level 4.3 g/dL (3.5-5.0); Alkaline Phosphatase 67 U/L (39-117); Anion Gap 14 (12-20); Aspartate Amino Transferase 35 U/L (5-37); Bilirubin Total 1.1 mg/dL (0.0-1.0); Blood Urea Nitrogen 10 mg/dL (9-16); Calcium 9.3 mg/dL (8.4-10.2); Carbon Dioxide 26 mmol/L (22-29); Chloride 106 mmol/L (96-108); Creatinine Clr Calc Pharmacy 81.6; Estimated Glomerular Filt Rate > 60; Glucose Random 135 mg/dL (60-115); Sodium 142 mmol/L (135-145); Total Protein 7.2 g/dL (6.5-8.0)
[2021-04-04 15:24] VITALS: BP 184/116; PULSE 88; RESP 18; TEMP 36.1; O2SAT 98
[2021-04-04 15:35] VITALS: BP 195/116; PULSE 96; RESP 18
--- NOTE | 2021-04-04 15:59 | ED_ITS ---
HPI - General Adult General Chief complaint: General Medical Stated complaint: hbp Time Seen by Provider: 04/04/21 15:59 Source: patient Mode of arrival: ambulatory Limitations: no limitations History of Present Illness HPI narrative: blood pressure has been running too high. Patient has been taking his lisinopril and Metoprolol consistently. Patient describes a slight headache. no other symptoms. Related Data Home Medications Medication Instructions Recorded Confirmed acetaminophen 500 mg tablet 500 mg PO Q6H PRN 05/24/20 03/20/21 apixaban 5 mg tablet 5 mg PO BID 05/24/20 03/20/21 cholecalciferol (vitamin D3) 50 50 mcg PO DAILY 05/24/20 03/20/21 mcg (2,000 unit) tablet clonazepam 1 mg tablet 1 mg PO BID PRN 05/24/20 03/20/21 flu vacc [id number] 6mos up(PF) ml IM 05/24/20 03/20/21 fluticasone propionate 220 2 puff INHALATION BID 05/24/20 03/20/21 mcg/actuation HFA aerosol inhaler furosemide 40 mg tablet 0 mg PO 05/24/20 03/20/21 hydroxyzine pamoate 25 mg capsule 25 mg PO BID 05/24/20 03/20/21 levothyroxine 100 mcg tablet 100 mcg PO DAILY 05/24/20 03/20/21 lisinopril 40 mg tablet 40 mg PO DAILY 05/24/20 03/20/21 loratadine 10 mg tablet 10 mg PO DAILY 05/24/20 03/20/21 metoprolol succinate 200 mg 200 mg PO DAILY 05/24/20 03/20/21 tablet,extended release 24 hr rosuvastatin 40 mg tablet 40 mg PO DAILY 05/24/20 03/20/21 umeclidinium 62.5 mcg/actuation 1 inh INHALATION DAILY 05/24/20 03/20/21 blister powder for inhalation zolpidem 10 mg tablet 10 mg PO BEDTIME PRN 05/24/20 03/20/21 albuterol sulfate mg INHALATION 03/20/21 03/20/21 Previous Rx's Medication Instructions Recorded benzonatate 100 mg capsule 100 mg PO TID PRN #10 cap 11/13/20 (Lamberto Rosales) vitamin E (dl, acetate) 180 mg 180 mg PO BID 90 Days #180 cap 01/12/21 (400 unit) capsule omeprazole 20 mg capsule,delayed 20 mg PO DAILY 30 Days #30 cap 02/20/21 release hydrochlorothiazide 50 mg tablet 50 mg PO QAM #20 tab 04/04/21 Allergies Allergy/AdvReac Type Severity Reaction Status Date / Time Iodinated Contrast Media Allergy Unknown HIVES Verified 03/20/21 13:16 [CONTRAST, IV] kiwi [KIWI] Allergy Unknown THROAT Verified 03/20/21 13:16 SWELLING Review of Systems Neurologic: Denies Sensory deficit (Neuro) [facility] Past Medical History Medical History Afib Allergic rhinitis Anxiety Bronchitis CHF (congestive heart failure) COPD (chronic obstructive pulmonary disease) HTN (hypertension) Hypothyroid Obesity (BMI 30-39.9) CE (obstructive sleep apnea) Palpitation Surgical History History of surgery on arm Hx of colonoscopy Hx of eye surgery Hx of knee surgery Hx of tonsillectomy Family History Family History Family/Other No problems noted. Social History Social History Alcohol intake: never Patient Tobacco Use Status: Never used Tobacco Advance Directives: No Physical Exam Vital Signs: Vital Signs: Last Vital Signs Temp 97 F 04/04/21 15:24 Pulse 88 04/04/21 16:18 Resp 18 04/04/21 15:35 BP 190/113 H 04/04/21 16:18 Pulse Ox 98 04/04/21 15:24 Body Mass Index 36.6 Const: Other: no acute distress Nutritional Appearance: obese Orientation/consciousness: oriented to person and patient oriented x3 Limitations: no limitations HENMT: Head: Yes normal to inspection Ears: external ears normal General nose exam: Normal external nose present Mouth: Normal oral and palatal mucosa present and oropharynx normal Throat: Yes posterior oropharynx normal Eyes: General: appearance normal, both eyes and all related structures Neck: Other: supple Neck: Yes normal visual inspection Chest: Chest palpation & inspection: normal inspection of the chest Resp: Auscultation: clear to auscultation bilaterally Cardio: Jugular venous distension: no JVD Rate: regular rate Rhythm: regular rhythm Heart sounds: S1 normal heart sound present and S2 normal heart sound present GI: Inspection: Yes normal to inspection Palpation (GI): Soft to palpation, nontender and No hepatosplenomegaly present Auscultation: normal bowel sounds : General: Yes no CVA tenderness Back/Spine/Pelvis: Back: no CVA tenderness Skin: General skin exam: no rashes or lesions noted Neuro: General: oriented to person and patient oriented x3 Cranial nerves: Yes CN's II-XII intact bilaterally Motor exam (neuro): 5/5 motor strength present throughout Sensory Exam: No Sensory deficit (Neuro) Extrem: Other: mild edema Psych: Appearance: grossly normal Course Reevaluation(s) Reevaluation #1: no evidence of end organ damage will dc on HCTZ in addition to Lisinopril, and metoprolol Time: 16:51 Medical Decision Making Lab Data Result diagrams: 04/04/21 13:05 04/04/21 13:05 Labs: Lab Results 04/04/21 04/04/21 04/04/21 Range/Units 13:05 13:05 16:23 WBC 6.1 (4.8-10.8) X10*3/uL RBC 4.90 (4.60-5.80) X10*6/uL Hgb 15.8 (14.0-18.0) g/dl Hct 46.0 (42.0-52.0) % MCV 93.9 (80.0-98.0) fL MCH 32.2 (27.0-33.0) pg MCHC 34.3 (31.0-36.0) g/dl RDW 11.9 (11.0-16.0) % Plt Count 161 (160-400) X10*3/uL MPV 10.1 (9.4-12.4) fL Immature Gran % (Auto) 0.2 (0.0-0.4) % Neut % (Auto) 64.3 (45-73) % Lymph % (Auto) 21.0 (20-40) % Garland % (Auto) 13.7 H (2-11) % Eos % (Auto) 0.3 (0-4) % Baso % (Auto) 0.5 (0-2) % Lymph # (Auto) 1.3 (1.2-4.9) X10*3/uL [place] # (Auto) 0.8 (0.1-1.2) X10*3/uL Eos # (Auto) 0.0 (0.0-0.4) X10*3/uL Baso # (Auto) 0.0 (0.0-0.2) X10*3/uL Abs Immat Gran (auto) 0.01 (0.00-0.03) X10*3/uL Absolute Neuts (auto) 3.9 (2.0-8.3) x10*3/uL Absolute Nucleated RBC 0.000 (0.0-0.012) X10*3/uL Nucleated RBC % (auto) 0.0 (0.0-0.2) /100WBC Sodium 142 (135-145) mmol/L Potassium 4.0 (3.3-5.1) mmol/L Chloride 106 (96-108) mmol/L Carbon Dioxide 26 (22-29) mmol/L Anion Gap 14 (12-20) BUN 10 (9-16) mg/dL Creatinine 0.98 (0.5-1.4) mg/dL Estim Creat Clear Calc 81.6 Estimated GFR > 60 Random Glucose 135 H (60-115) mg/dL Calcium 9.3 (8.4-10.2) mg/dL Total Bilirubin 1.1 H (0.0-1.0) mg/dL AST 35 (5-37) U/L ALT 45 H (0-40) U/L Alkaline Phosphatase 67 (39-117) U/L Total Protein 7.2 (6.5-8.0) g/dL Albumin 4.3 (3.5-5.0) g/dL Urine Color YELLOW Urine Appearance CLEAR Urine pH 6.0 (5.0-8.0) Ur Specific Can[place] 1.020 (1.005-1.025) Urine Protein NEG (NEG-TRACE) MG/DL Urine Glucose (UA) NEG (NEG) MG/DL Urine Ketones NEG (NEG) MG/DL Urine Blood NEG (NEG) Urine Nitrite NEG (NEG) Ur Leukocyte Esterase NEG (NEG) Discharge Plan Discharge Clinical Impression: Hypertension Qualifiers: Hypertension type: unspecified Qualified Code(s): I10 - Essential (primary) hypertension Patient Disposition: Home, Self-Care Instructions: Hypertension (ED) Prescriptions: New hydrochlorothiazide 50 mg tablet 50 mg PO QAM Qty: 20 RF: 0 No Action vitamin E (dl, acetate) 180 mg (400 unit) capsule 180 mg PO BID 90 Days Qty: 180 RF: 1 omeprazole 20 mg capsule,delayed release(DR/EC) 20 mg PO DAILY 30 Days Qty: 30 RF: 6 benzonatate [Tessalon Perles] 100 mg capsule 100 mg PO TID PRN (Reason: cough) Qty: 10 RF: 0 loratadine 10 mg tablet 10 mg PO DAILY RF: 0 zolpidem 10 mg tablet 10 mg PO BEDTIME PRNRF: 0 hydroxyzine pamoate 25 mg capsule 25 mg PO BID RF: 0 cholecalciferol (vitamin D3) 50 mcg (2,000 unit) tablet 50 mcg PO DAILY RF: 0 lisinopril 40 mg tablet 40 mg PO DAILY RF: 0 Eliquis 5 mg tablet 5 mg PO BID RF: 0 Incruse Ellipta 62.5 mcg/actuation blister with device 1 inh inhalation DAILY RF: 0 clonazepam 1 mg tablet 1 mg PO BID PRNRF: 0 Flovent HFA 220 mcg/actuation HFA aerosol inhaler 2 puff inhalation BID RF: 0 rosuvastatin 40 mg tablet 40 mg PO DAILY RF: 0 furosemide 40 mg tablet 0 mg PO RF: 0 metoprolol succinate 200 mg tablet extended release 24 hr 200 mg PO DAILY RF: 0 levothyroxine 100 mcg tablet 100 mcg PO DAILY RF: 0 acetaminophen 500 mg tablet 500 mg PO Q6H PRNRF: 0 Fluzone Quad [id number] (PF) 60 mcg (15 mcg x 4)/0.5 mL syringe IM RF: 0 albuterol sulfate 2.5 mg /3 mL (0.083 %) solution for nebulization inhalation RF: 0 Referrals: Gemini Chavez MD [Primary Care Provider] - 1 week Interventions: LWBS Worksheet Last Done: 04/04/21 13:05
[2021-04-04 16:18] VITALS: BP 190/113; PULSE 88
[2021-04-04] MEDS: hydroCHLOROthiazide 50 MG TABLET PO (16:18)
[2021-04-04] MEDS: lisinopriL 40 MG TABLET PO (16:18)
[2021-04-04 16:31] LABS: Appearance Urine CLEAR; Color Urine YELLOW; Glucose Urine UA NEG (NEG); Leukocyte Esterase Urine NEG (NEG); Nitrite Urine NEG (NEG); Urine Blood NEG (NEG); Urine Ketones NEG (NEG); Urine Protein NEG (NEG-TRACE)
[2021-04-04 16:56] VITALS: BP 201/116; PULSE 89; RESP 16; O2SAT 99
[2021-04-04 17:00] LABS: Hyaline Casts Urine 0-2 /LPF; Mucus Urine TRACE /LPF; RBC Urine 0-2 /HPF (0); WBC Urine 0-2 /HPF (0-4)
== END 2021-04-04 17:05 | disposition home or self-care (01) ==
PROVIDERS: Emergency Provider Emergency Medicine; PCP Internal Medicine
DX: I10 Essential (primary) hypertension (principal); Z79.899 Other long term (current) drug therapy
CPT/HCPCS: 36415; 80053; 81001; 85025; 99283; 99284

== ENCOUNTER → 2021-10-10 13:54 | Outpatient (BNVA) | payer OTHER, SELFPAY | PROVIDERS: PCP Internal Medicine; Visit Provider Internal Medicine | DX: J44.9 Chronic obstructive pulmonary disease, unspecified (principal); J30.9 Allergic rhinitis, unspecified; G47.33 Obstructive sleep apnea (adult) (pediatric); E66.9 Obesity, unspecified; Z68.36 Body mass index [BMI] 36.0-36.9, adult; Z79.899 Other long term (current) drug therapy; Z91.19 Patient's noncompliance with other medical treatment and regimen | CPT/HCPCS: 99212 ==

== ENCOUNTER → 2021-10-19 11:14 | Outpatient (BNVA) | payer OTHER, SELFPAY | PROVIDERS: PCP Internal Medicine; Visit Provider Nurse Practitioner | DX: R14.0 Abdominal distension (gaseous) (principal); K21.9 Gastro-esophageal reflux disease without esophagitis; K76.0 Fatty (change of) liver, not elsewhere classified; K76.9 Liver disease, unspecified; Z79.899 Other long term (current) drug therapy | CPT/HCPCS: 99212 ==

== ENCOUNTER 2021-11-06 10:58 | Outpatient (REF) | payer OTHER, SELFPAY ==
--- NOTE | ~2021-11-06 | CT_ITS ---
EXAMINATION: CT ABDOMEN WITHOUT CONTRAST CLINICAL INFORMATION: Liver disease COMPARISON: Previous CT November 2019 and abdominal ultrasound August 2020 TECHNIQUE: Contiguous axial thin section helical images of the abdomen were performed without contrast. The data set was reformatted in the coronal and sagittal planes and reviewed on an independent workstation. This CT examination was performed using dose optimization techniques as appropriate, variously including the following: *Automated exposure control *Adjustment of mA and/or kV according to patient size (this includes techniques or standardized protocols for targeted exams where dose is matched to indication/reason for exam; i.e. extremities or head) *Use of iterative reconstruction technique DLP: 555 mGy-cm FINDINGS: LUNG BASES: The lung bases are clear. LIVER, GALLBLADDER, BILIARY TREE: The liver is normal in size, shape and attenuation. No focal liver lesion or biliary duct dilatation. Normal gallbladder. PANCREAS: Normal SPLEEN: Normal ADRENAL GLANDS AND KIDNEYS: The adrenal glands are normal. There are bilateral renal cysts. No imaging follow-up needed. There is a 4 mm right renal stone. No hydronephrosis. BOWEL LOOPS: There is diverticulosis of the colon. Small and large bowel is otherwise unremarkable. The appendix is normal. The stomach is normal. LYMPH NODES: Normal. VASCULAR: There is evidence of atherosclerotic disease. No aneurysm. The bladder is normal. There is a reservoir for penile prosthesis adjacent to the bladder. The prostate gland does not appear enlarged. There is increased soft tissue seen deep to the abdominal wall in the inguinal region probably representing postsurgical changes following inguinal hernia repair. BONES: There are degenerative changes of the spine. CT/CT abdomen wo con IMPRESSION: Normal-appearing liver. Bilateral renal cysts. Right renal stone. Diverticulosis. Fleischner guidelines were followed.
== END 2021-11-06 10:59 | disposition home or self-care (01) ==
LOC: HO.CT 10:58
PROVIDERS: PCP Internal Medicine; Visit Provider Nurse Practitioner
DX: K76.9 Liver disease, unspecified (principal)
CPT/HCPCS: 74150

== ENCOUNTER → 2021-11-29 11:16 | Outpatient (BNVA) | payer OTHER, SELFPAY | PROVIDERS: PCP Internal Medicine; Visit Provider Nurse Practitioner | DX: K21.9 Gastro-esophageal reflux disease without esophagitis (principal); K76.0 Fatty (change of) liver, not elsewhere classified; Z79.899 Other long term (current) drug therapy | CPT/HCPCS: 99212 ==

== ENCOUNTER 2022-02-11 08:30 | Emergency (ER) | payer OTHER, SELFPAY ==
--- NOTE | ~2022-02-11 | XR_ITS ---
EXAMINATION: XR CHEST CLINICAL INFORMATION: Cough. COMPARISON: 11/13/2020 chest radiographs. TECHNIQUE: Frontal view of the chest was obtained. FINDINGS: The lungs are clear. The heart and mediastinal structures are unremarkable. Old healed posterolateral left seventh rib fracture without interval change. XR/XR chest 1V IMPRESSION: No acute cardiopulmonary process.
[2022-02-11 08:39] VITALS: BP 114/70; PULSE 82; PULSE 86; RESP 20; TEMP 36.9; O2SAT 96; O2SAT 98; BMI 34.9
--- NOTE | 2022-02-11 08:54 | ED_ITS ---
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 He is fully vaccinated against COVID and the flu. He denies sick contacts. He feels weak and dizzy when he stands up. MD elicited complaint: nausea, vomiting and other (URI symptoms, weak and dizzy, productive cough) Pertinent past history: other (asthma) Onset (ago): day(s) (4) Associated nausea: Yes Associated abdominal pain: No Location of pain: diffuse (overall doesn't feel well) Pain consistency: constant Severity: mild Quality: aching, dull and constant Exacerbating factors: eating, movement and exertion Relieving factors: none Associated symptoms: cough, fever/chills, loss of appetite, malaise, nausea/vomiting and weakness Treatment prior to arrival: none Related Data Home Medications Medication Instructions Recorded Confirmed acetaminophen 500 mg tablet 500 mg PO Q6H PRN 05/24/20 03/20/21 apixaban 5 mg tablet 5 mg PO BID 05/24/20 03/20/21 cholecalciferol (vitamin D3) 50 50 mcg PO DAILY 05/24/20 03/20/21 mcg (2,000 unit) tablet clonazepam 1 mg tablet 1 mg PO BID PRN 05/24/20 03/20/21 flu vacc [id number] 6mos up(PF) 60 ml IM 05/24/20 03/20/21 mcg(15 mcgx4)/0.5 mL IM syringe fluticasone propionate 220 2 puff inhalation BID 05/24/20 03/20/21 mcg/actuation HFA aerosol inhaler furosemide 40 mg tablet 0 mg PO 05/24/20 03/20/21 hydroxyzine pamoate 25 mg capsule 25 mg PO BID 05/24/20 03/20/21 levothyroxine 100 mcg tablet 100 mcg PO DAILY 05/24/20 03/20/21 lisinopril 40 mg tablet 40 mg PO DAILY 05/24/20 03/20/21 loratadine 10 mg tablet 10 mg PO DAILY 05/24/20 03/20/21 metoprolol succinate 200 mg 200 mg PO DAILY 05/24/20 03/20/21 tablet,extended release 24 hr rosuvastatin 40 mg tablet 40 mg PO DAILY 05/24/20 03/20/21 umeclidinium 62.5 mcg/actuation 1 inh inhalation DAILY 05/24/20 03/20/21 blister powder for inhalation zolpidem 10 mg tablet 10 mg PO BEDTIME PRN 05/24/20 03/20/21 albuterol sulfate 2.5 mg/3 mL mg inhalation 03/20/21 03/20/21 (0.083 %) solution for nebulization hydrochlorothiazide 12.5 mg tablet 12.5 mg PO DAILY 10/19/21 Previous Rx's Medication Instructions Recorded benzonatate 100 mg capsule 100 mg PO TID PRN cough #10 caps 11/13/20 (Lamberto Rosales) hydrochlorothiazide 50 mg tablet 50 mg PO QAM #20 tabs 04/04/21 omeprazole 20 mg capsule,delayed 20 mg PO DAILY 30 days #30 caps 10/19/21 release simethicone 180 mg capsule 180 mg PO QID 30 days #120 caps 10/19/21 vitamin E (dl, acetate) 180 mg 180 mg PO BID #180 caps 01/01/22 (400 unit) capsule azithromycin 250 mg tablet See Rx Instructions PO .COMPLEX #6 02/11/22 tabs benzonatate 100 mg capsule 100 mg PO TID PRN cough #14 caps 02/11/22 prednisone 20 mg tablet 40 mg PO DAILY 5 days #10 tabs 02/11/22 Allergies Allergy/AdvReac Type Severity Reaction Status Date / Time Iodinated Contrast Media Allergy Unknown HIVES Verified 11/29/21 11:39 [CONTRAST, IV] kiwi [KIWI] Allergy Unknown THROAT Verified 11/29/21 11:39 SWELLING Review of Systems 2 Review of Systems: Constitutional : pos Fever, pos Chills, pos Fatigue, pos Malaise ENT/Mouth : No sore throat, No Rhinorrhea Eyes: No Eye Pain, No Swelling, No Redness Cardiovascular : No Chest Pain, pos SOB, No Dyspnea on Exertion, No Orthopnea, No Edema, No Palpitations Respiratory : pos Cough, No Sputum, pos Wheezing Gastrointestinal : pos Nausea, pos Vomiting, No Diarrhea, No Constipation, No abdominal Pain, No Hematochezia, No Melena Genitourinary : No Dysuria, No Urinary Frequency, No Hematuria, Musculoskeletal : No joint pain, No Myalgias, No Joint Swelling Skin : No Skin Lesions, No rash Neuro : pos Weakness, No Numbness, pos Dizziness, No Headache Psych : No Anxiety/Panic, No Depression Heme/Lymph: No Bruising, No Bleeding,No Lymphadenopathy Endocrine : No Polyuria, No Polydipsia All other systems reviewed and are negative Gastrointestinal: Gastrointestinal: Reports nausea PMFSH Past Medical History Attestation statement: The following information was validated with the patient. Medical History Afib Allergic rhinitis Anxiety Bronchitis CHF (congestive heart failure) COPD (chronic obstructive pulmonary disease) HTN (hypertension) Hypothyroid Obesity (BMI 30-39.9) CE (obstructive sleep apnea) Palpitation Surgical History History of surgery on arm Hx of colonoscopy Hx of eye surgery Hx of knee surgery Hx of tonsillectomy Family History Family History Family/Other No problems noted. Social History Social History Alcohol intake: never Patient Tobacco Use Status: Never used Tobacco Use of substances other than those prescribed or required for medical reasons: No Advance Directives: No Advance Directives Information Provided: Yes Physical Exam Vital Signs: Vital Signs: Last Vital Signs Temp 98.4 F 02/11/22 08:39 Pulse 100 02/11/22 12:19 Resp 18 02/11/22 09:18 BP 122/86 02/11/22 12:19 Pulse Ox 97 02/11/22 10:54 O2 Del Method 02/11/22 10:54 BMI result Body Mass Index 34.9 Appearance: Alert. Oriented X3. No acute distress. Eyes: Pupils equal, round and reactive to light. ENT: Pharynx normal. Neck: Normal inspection. Neck supple. CVS: irregular heart rate and rhythm. Pulses normal. Respiratory: No respiratory distress. Breath sounds diminished and coarse throughout Abdomen: Soft and nontender. Skin: Skin warm and dry. Normal skin color. Normal skin turgor. Extremities: No lower extremity edema. No calf ttp Neuro: Oriented X 3. No motor deficit. No sensory deficit. Course Course Course Narrative: mildly dry - IVF ordered. will repeat Cr after gentle fluids, feels better resp pathogen panel sent off currently eating food now. Cr improved, resp pathogen panel pending - no hypoxia, stable VS - anticipate DC home MDM - Nausea/Vomiting/Diarrhea MDM Narrative Medical decision making narrative: 66 yo male with hx of COPD, CHF, afib on eliquis, anxiety, CE, GERD here with c/o feeling weak, fevers, chills, n/v dizziness cough with sputum production and overall not feeling well. At this time will obtain UA, CXR, labs, hydrate, supportive medications - tylenol, zofran, neb treatment. Swabs for flu and COVID. Dispo per results and findings. Lab Data Result diagrams: 02/11/22 09:09 02/11/22 12:43 Labs: Lab Results 02/11/22 02/11/22 02/11/22 Range/Units 09:09 09:09 09:09 WBC 6.9 (4.8-10.8) X10*3/uL RBC 5.08 (4.60-5.80) X10*6/uL Hgb 16.0 (14.0-18.0) g/dl Hct 47.7 (42.0-52.0) % MCV 93.9 (80.0-98.0) fL MCH 31.5 (27.0-33.0) pg MCHC 33.5 (31.0-36.0) g/dl RDW 11.8 (11.0-16.0) % Plt Count 163 (160-400) X10*3/uL MPV 10.6 (9.4-12.4) fL Immature Gran % (Auto) 0.3 (0.0-0.4) % Neut % (Auto) 64.1 (45-73) % Lymph % (Auto) 16.7 L (20-40) % Morrison % (Auto) 18.6 H (2-11) % Eos % (Auto) 0.0 (0-4) % Baso % (Auto) 0.3 (0-2) % Lymph # (Auto) 1.2 (1.2-4.9) X10*3/uL Morrison # (Auto) 1.3 H (0.1-1.2) X10*3/uL Eos # (Auto) 0.0 (0.0-0.4) X10*3/uL Baso # (Auto) 0.0 (0.0-0.2) X10*3/uL Abs Immat Gran (auto) 0.02 (0.00-0.03) X10*3/uL Absolute Neuts (auto) 4.4 (2.0-8.3) x10*3/uL Absolute Nucleated RBC 0.000 (0.0-0.012) X10*3/uL Nucleated RBC % (auto) 0.0 (0.0-0.2) /100WBC PT (10.0-13.1) SEC INR (0.9-1.1) Sodium 139 (135-145) mmol/L Potassium 3.9 (3.3-5.1) mmol/L Chloride 99 (96-108) mmol/L Carbon Dioxide 23 (22-29) mmol/L Anion Gap 21 H (12-20) BUN 27 H (9-16) mg/dL Creatinine 1.55 H (0.5-1.4) mg/dL Estim Creat Clear Calc 49.7 Estimated GFR 45 Random Glucose 123 H (60-115) mg/dL Lactic Acid (0.5-2.0) mmol/L Calcium 9.3 (8.4-10.2) mg/dL Magnesium 1.9 (1.6-2.6) mg/dL Total Bilirubin 1.2 H (0.0-1.0) mg/dL Direct Bilirubin 0.5 (0.0-0.5) mg/dL AST 42 H (5-37) U/L ALT 26 (0-40) U/L Alkaline Phosphatase 51 D (39-117) U/L Troponin I High Sens (<3.5-35.0) ng/L B-Natriuretic Peptide (<100) pg/mL Total Protein 7.3 (6.5-8.0) g/dL Albumin 4.2 (3.5-5.0) g/dL Lipase 53 (8-78) U/L Urine Color Urine Appearance Urine pH (5.0-9.0) Ur Specific [place] (1.005-1.025) Urine Protein (Neg-Trace) mg/dL Urine Glucose (UA) (Negative) mg/dL Urine Ketones (Negative) mg/dL Urine Blood (Negative) Urine Nitrite (Negative) Ur Leukocyte Esterase (Negative) Urine RBC (0-2) /HPF Urine WBC (0-5) /HPF Ur Squamous Epith Cells (0-2) /HPF Urine Bacteria (None Seen) Hyaline Casts (0-2) /LPF Respiratory Panel Donovan Adenovirus (Rapid PCR) (Not Detect.) B.pert (TEM-PCR) (Not Detect.) B.parapertussis DNA PCR (Not Detect.) C. pneumoniae DNA (PCR) (Not Detect.) Coronavirus OC43 (PCR) (Not Detect.) Coronavirus HKU1 (PCR) (Not Detect.) Coronavirus 229E (PCR) (Not Detect.) COVID-19 (KRISTEN) Negative (Negative) COVID-19 Clin Com See Note Coronavirus NL63 (PCR) (Not Detect.) Human Metapneumovir PCR (Not Detect.) Influenza Type A (KRIS) (Negative) Influenza A (RT-PCR) (Not Detect.) Influenza Type B (KRIS) (Negative) Influenza B (RT-PCR) (Not Detect.) Influenza A & B Note M. pneumoniae (PCR) (Not Detect.) Parainfluenza 1 (PCR) (Not Detect.) Parainfluenza 2 (PCR) (Not Detect.) Parainfluenza 3 (PCR) (Not Detect.) Parainfluenza 4 (PCR) (Not Detect.) RSV (PCR) (Not Detect.) Entero/Rhino (PCR) (Not Detect.) SARS-CoV-2 RNA (RT-PCR) (Not Detect.) 02/11/22 02/11/22 02/11/22 Range/Units 09:09 09:09 09:09 WBC (4.8-10.8) X10*3/uL RBC (4.60-5.80) X10*6/uL Hgb (14.0-18.0) g/dl Hct (42.0-52.0) % MCV (80.0-98.0) fL MCH (27.0-33.0) pg MCHC (31.0-36.0) g/dl RDW (11.0-16.0) % Plt Count (160-400) X10*3/uL MPV (9.4-12.4) fL Immature Gran % (Auto) (0.0-0.4) % Neut % (Auto) (45-73) % Lymph % (Auto) (20-40) % Morrison % (Auto) (2-11) % Eos % (Auto) (0-4) % Baso % (Auto) (0-2) % Lymph # (Auto) (1.2-4.9) X10*3/uL Morrison # (Auto) (0.1-1.2) X10*3/uL Eos # (Auto) (0.0-0.4) X10*3/uL Baso # (Auto) (0.0-0.2) X10*3/uL Abs Immat Gran (auto) (0.00-0.03) X10*3/uL Absolute Neuts (auto) (2.0-8.3) x10*3/uL Absolute Nucleated RBC (0.0-0.012) X10*3/uL Nucleated RBC % (auto) (0.0-0.2) /100WBC PT 17.7 H (10.0-13.1) SEC INR 1.5 H (0.9-1.1) Sodium (135-145) mmol/L Potassium (3.3-5.1) mmol/L Chloride (96-108) mmol/L Carbon Dioxide (22-29) mmol/L Anion Gap (12-20) BUN (9-16) mg/dL Creatinine (0.5-1.4) mg/dL Estim Creat Clear Calc Estimated GFR Random Glucose (60-115) mg/dL Lactic Acid 1.7 (0.5-2.0) mmol/L Calcium (8.4-10.2) mg/dL Magnesium (1.6-2.6) mg/dL Total Bilirubin (0.0-1.0) mg/dL Direct Bilirubin (0.0-0.5) mg/dL AST (5-37) U/L ALT (0-40) U/L Alkaline Phosphatase (39-117) U/L Troponin I High Sens 3.6 (<3.5-35.0) ng/L B-Natriuretic Peptide (<100) pg/mL Total Protein (6.5-8.0) g/dL Albumin (3.5-5.0) g/dL Lipase (8-78) U/L Urine Color Urine Appearance Urine pH (5.0-9.0) Ur Specific [place] (1.005-1.025) Urine Protein (Neg-Trace) mg/dL Urine Glucose (UA) (Negative) mg/dL Urine Ketones (Negative) mg/dL Urine Blood (Negative) Urine Nitrite (Negative) Ur Leukocyte Esterase (Negative) Urine RBC (0-2) /HPF Urine WBC (0-5) /HPF Ur Squamous Epith Cells (0-2) /HPF Urine Bacteria (None Seen) Hyaline Casts (0-2) /LPF Respiratory Panel Donovan Adenovirus (Rapid PCR) (Not Detect.) B.pert (TEM-PCR) (Not Detect.) B.parapertussis DNA PCR (Not Detect.) C. pneumoniae DNA (PCR) (Not Detect.) Coronavirus OC43 (PCR) (Not Detect.) Coronavirus HKU1 (PCR) (Not Detect.) Coronavirus 229E (PCR) (Not Detect.) COVID-19 (KRISTEN) (Negative) COVID-19 Clin Com Coronavirus NL63 (PCR) (Not Detect.) Human Metapneumovir PCR (Not Detect.) Influenza Type A (KRIS) (Negative) Influenza A (RT-PCR) (Not Detect.) Influenza Type B (KRIS) (Negative) Influenza B (RT-PCR) (Not Detect.) Influenza A & B Note M. pneumoniae (PCR) (Not Detect.) Parainfluenza 1 (PCR) (Not Detect.) Parainfluenza 2 (PCR) (Not Detect.) Parainfluenza 3 (PCR) (Not Detect.) Parainfluenza 4 (PCR) (Not Detect.) RSV (PCR) (Not Detect.) Entero/Rhino (PCR) (Not Detect.) SARS-CoV-2 RNA (RT-PCR) (Not Detect.) 10/03/22 10/03/22 10/03/22 Range/Units 09:09 09:09 12:19 WBC (4.8-10.8) X10*3/uL RBC (4.60-5.80) X10*6/uL Hgb (14.0-18.0) g/dl Hct (42.0-52.0) % MCV (80.0-98.0) fL MCH (27.0-33.0) pg MCHC (31.0-36.0) g/dl RDW (11.0-16.0) % Plt Count (160-400) X10*3/uL MPV (9.4-12.4) fL Immature Gran % (Auto) (0.0-0.4) % Neut % (Auto) (45-73) % Lymph % (Auto) (20-40) % Morrison % (Auto) (2-11) % Eos % (Auto) (0-4) % Baso % (Auto) (0-2) % Lymph # (Auto) (1.2-4.9) X10*3/uL Morrison # (Auto) (0.1-1.2) X10*3/uL Eos # (Auto) (0.0-0.4) X10*3/uL Baso # (Auto) (0.0-0.2) X10*3/uL Abs Immat Gran (auto) (0.00-0.03) X10*3/uL Absolute Neuts (auto) (2.0-8.3) x10*3/uL Absolute Nucleated RBC (0.0-0.012) X10*3/uL Nucleated RBC % (auto) (0.0-0.2) /100WBC PT (10.0-13.1) SEC INR (0.9-1.1) Sodium (135-145) mmol/L Potassium (3.3-5.1) mmol/L Chloride (96-108) mmol/L Carbon Dioxide (22-29) mmol/L Anion Gap (12-20) BUN (9-16) mg/dL Creatinine (0.5-1.4) mg/dL Estim Creat Clear Calc Estimated GFR Random Glucose (60-115) mg/dL Lactic Acid (0.5-2.0) mmol/L Calcium (8.4-10.2) mg/dL Magnesium (1.6-2.6) mg/dL Total Bilirubin (0.0-1.0) mg/dL Direct Bilirubin (0.0-0.5) mg/dL AST (5-37) U/L ALT (0-40) U/L Alkaline Phosphatase (39-117) U/L Troponin I High Sens (<3.5-35.0) ng/L B-Natriuretic Peptide 24 (<100) pg/mL Total Protein (6.5-8.0) g/dL Albumin (3.5-5.0) g/dL Lipase (8-78) U/L Urine Color Dark Yellow Urine Appearance Clear Urine pH 5.0 (5.0-9.0) Ur Specific [place] 1.020 (1.005-1.025) Urine Protein Negative (Neg-Trace) mg/dL Urine Glucose (UA) Negative (Negative) mg/dL Urine Ketones Negative (Negative) mg/dL Urine Blood Negative (Negative) Urine Nitrite Negative (Negative) Ur Leukocyte Esterase Trace H (Negative) Urine RBC 3-5 H (0-2) /HPF Urine WBC 0-5 (0-5) /HPF Ur Squamous Epith Cells 0-2 (0-2) /HPF Urine Bacteria None Seen (None Seen) Hyaline Casts 6-10 (0-2) /LPF Respiratory Panel Donovan Adenovirus (Rapid PCR) (Not Detect.) B.pert (TEM-PCR) (Not Detect.) B.parapertussis DNA PCR (Not Detect.) C. pneumoniae DNA (PCR) (Not Detect.) Coronavirus OC43 (PCR) (Not Detect.) Coronavirus HKU1 (PCR) (Not Detect.) Coronavirus 229E (PCR) (Not Detect.) COVID-19 (KRISTEN) (Negative) COVID-19 Clin Com Coronavirus NL63 (PCR) (Not Detect.) Human Metapneumovir PCR (Not Detect.) Influenza Type A (KRIS) Negative (Negative) Influenza A (RT-PCR) (Not Detect.) Influenza Type B (KRIS) Negative (Negative) Influenza B (RT-PCR) (Not Detect.) Influenza A & B Note See Note M. pneumoniae (PCR) (Not Detect.) Parainfluenza 1 (PCR) (Not Detect.) Parainfluenza 2 (PCR) (Not Detect.) Parainfluenza 3 (PCR) (Not Detect.) Parainfluenza 4 (PCR) (Not Detect.) RSV (PCR) (Not Detect.) Entero/Rhino (PCR) (Not Detect.) SARS-CoV-2 RNA (RT-PCR) (Not Detect.) 02/11/22 02/11/22 Range/Units 12:39 12:43 WBC (4.8-10.8) X10*3/uL RBC (4.60-5.80) X10*6/uL Hgb (14.0-18.0) g/dl Hct (42.0-52.0) % MCV (80.0-98.0) fL MCH (27.0-33.0) pg MCHC (31.0-36.0) g/dl RDW (11.0-16.0) % Plt Count (160-400) X10*3/uL MPV (9.4-12.4) fL Immature Gran % (Auto) (0.0-0.4) % Neut % (Auto) (45-73) % Lymph % (Auto) (20-40) % Morrison % (Auto) (2-11) % Eos % (Auto) (0-4) % Baso % (Auto) (0-2) % Lymph # (Auto) (1.2-4.9) X10*3/uL Morrison # (Auto) (0.1-1.2) X10*3/uL Eos # (Auto) (0.0-0.4) X10*3/uL Baso # (Auto) (0.0-0.2) X10*3/uL Abs Immat Gran (auto) (0.00-0.03) X10*3/uL Absolute Neuts (auto) (2.0-8.3) x10*3/uL Absolute Nucleated RBC (0.0-0.012) X10*3/uL Nucleated RBC % (auto) (0.0-0.2) /100WBC PT (10.0-13.1) SEC INR (0.9-1.1) Sodium (135-145) mmol/L Potassium (3.3-5.1) mmol/L Chloride (96-108) mmol/L Carbon Dioxide (22-29) mmol/L Anion Gap (12-20) BUN (9-16) mg/dL Creatinine 1.44 H (0.5-1.4) mg/dL Estim Creat Clear Calc 53.5 Estimated GFR 49 Random Glucose (60-115) mg/dL Lactic Acid (0.5-2.0) mmol/L Calcium (8.4-10.2) mg/dL Magnesium (1.6-2.6) mg/dL Total Bilirubin (0.0-1.0) mg/dL Direct Bilirubin (0.0-0.5) mg/dL AST (5-37) U/L ALT (0-40) U/L Alkaline Phosphatase (39-117) U/L Troponin I High Sens (<3.5-35.0) ng/L B-Natriuretic Peptide (<100) pg/mL Total Protein (6.5-8.0) g/dL Albumin (3.5-5.0) g/dL Lipase (8-78) U/L Urine Color Urine Appearance Urine pH (5.0-9.0) Ur Specific [place] (1.005-1.025) Urine Protein (Neg-Trace) mg/dL Urine Glucose (UA) (Negative) mg/dL Urine Ketones (Negative) mg/dL Urine Blood (Negative) Urine Nitrite (Negative) Ur Leukocyte Esterase (Negative) Urine RBC (0-2) /HPF Urine WBC (0-5) /HPF Ur Squamous Epith Cells (0-2) /HPF Urine Bacteria (None Seen) Hyaline Casts (0-2) /LPF Respiratory Panel Donovan See Note Adenovirus (Rapid PCR) Not Detected (Not Detect.) B.pert (TEM-PCR) Not Detected (Not Detect.) B.parapertussis DNA PCR Not Detected (Not Detect.) C. pneumoniae DNA (PCR) Not Detected (Not Detect.) Coronavirus OC43 (PCR) Not Detected (Not Detect.) Coronavirus HKU1 (PCR) Not Detected (Not Detect.) Coronavirus 229E (PCR) Not Detected (Not Detect.) COVID-19 (KRISTEN) (Negative) COVID-19 Clin Com Coronavirus NL63 (PCR) Not Detected (Not Detect.) Human Metapneumovir PCR Not Detected (Not Detect.) Influenza Type A (KRIS) (Negative) Influenza A (RT-PCR) Not Detected (Not Detect.) Influenza Type B (KRIS) (Negative) Influenza B (RT-PCR) Not Detected (Not Detect.) Influenza A & B Note M. pneumoniae (PCR) Not Detected (Not Detect.) Parainfluenza 1 (PCR) Not Detected (Not Detect.) Parainfluenza 2 (PCR) Not Detected (Not Detect.) Parainfluenza 3 (PCR) Not Detected (Not Detect.) Parainfluenza 4 (PCR) Not Detected (Not Detect.) RSV (PCR) Detected A (Not Detect.) Entero/Rhino (PCR) Not Detected (Not Detect.) SARS-CoV-2 RNA (RT-PCR) Not Detected (Not Detect.) Discharge Plan Discharge Clinical Impression: Acute viral syndrome, Bronchitis, Dehydration, mild, RSV bronchitis Patient Disposition: Home, Self-Care Instructions: Dehydration (ED), Acute Bronchitis (ED), Viral Syndrome (ED), Respiratory Syncytial Virus (ED) Additional Instructions: regresar al servicio de urgencias por cualquier empeoramiento de los s?ntomas o inquietudes No tome medicamentos para la presi?n arterial hoy. suspender hidroclorotiazida HCTZ y lisinopril hasta el 10/19. Consulte a shields m?dico esta semana y repita la prueba de funci?n renal en 2 d?as. Prescriptions: New azithromycin 250 mg tablet See Rx Instructions .ROUTE .COMPLEX Qty: 6 0RF Rx Instructions: For 250 mg dose pack: take 500 mg today (day 1), then 250 mg for 4 days (days 2-5) prednisone 20 mg tablet 40 mg PO DAILY 5 Days Qty: 10 0RF benzonatate 100 mg capsule 100 mg PO TID PRN (Reason: cough) Qty: 14 0RF No Action vitamin E (dl, acetate) 180 mg (400 unit) capsule 180 mg PO BID Qty: 180 1RF benzonatate [Tessalon Perles] 100 mg capsule 100 mg PO TID PRN (Reason: cough) Qty: 10 0RF hydrochlorothiazide 50 mg tablet 50 mg PO QAM Qty: 20 0RF loratadine 10 mg tablet 10 mg PO DAILY zolpidem 10 mg tablet 10 mg PO BEDTIME PRN hydroxyzine pamoate 25 mg capsule 25 mg PO BID cholecalciferol (vitamin D3) 50 mcg (2,000 unit) tablet 50 mcg PO DAILY lisinopril 40 mg tablet 40 mg PO DAILY Eliquis 5 mg tablet 5 mg PO BID Incruse Ellipta 62.5 mcg/actuation blister with device 1 inh inhalation DAILY clonazepam 1 mg tablet 1 mg PO BID PRN Flovent HFA 220 mcg/actuation HFA aerosol inhaler 2 puff inhalation BID rosuvastatin 40 mg tablet 40 mg PO DAILY furosemide 40 mg tablet 0 mg PO metoprolol succinate 200 mg tablet extended release 24 hr 200 mg PO DAILY levothyroxine 100 mcg tablet 100 mcg PO DAILY acetaminophen 500 mg tablet 500 mg PO Q6H PRN Fluzone Quad [id number] (PF) 60 mcg (15 mcg x 4)/0.5 mL syringe IM albuterol sulfate 2.5 mg /3 mL (0.083 %) solution for nebulization inhalation hydrochlorothiazide 12.5 mg tablet 12.5 mg PO DAILY simethicone 180 mg capsule 180 mg PO QID 30 Days Qty: 120 6RF Rx Instructions: after meals omeprazole 20 mg capsule,delayed release(DR/EC) 20 mg PO DAILY 30 Days Qty: 30 6RF Referrals: Gemini Chavez MD [Primary Care Provider] - 2 days Print Language: Greenlandic
--- NOTE | 2022-02-11 08:55 | ECG_ITS ---
Test Reason : sob Blood Pressure : / mmHG Vent. Rate : 115 BPM Atrial Rate : 000 BPM P-R Int : 000 ms QRS Dur : 082 ms QT Int : 330 ms P-R-T Axes : 000 022 023 degrees QTc Int : 456 ms Atrial fibrillation with rapid ventricular response Abnormal ECG When compared with ECG of 13-NOV-2020 15:44, Heart rate has increased Referred By: Bethany Machado Electronically Signed By:RAYMOND FRAZIER
[2022-02-11 09:14] LABS: MANUAL DIFF FLAG NO
[2022-02-11] MEDS: Albuterol Sulfate 2.5 MG, Albuterol/Iprat 2.5/0.5MG 3 ML 3 ML INHALE (09:17)
[2022-02-11 09:18] VITALS: PULSE 93; RESP 18; O2SAT 97
[2022-02-11 09:19] LABS: Basophils Percent Auto 0.3 % (0-2); Hematocrit 47.7 % (42.0-52.0); Imm Gran Abs Auto 0.02 X10*3/uL (0.00-0.03); Imm Gran Pct Auto 0.3 % (0.0-0.4); Lymphocytes Absolute Auto 1.2 X10*3/uL (1.2-4.9); Lymphocytes Percent Auto 16.7 % (20-40); Mean Corpuscular HGB Conc 33.5 g/dl (31.0-36.0); Mean Corpuscular Hemoglobin 31.5 pg (27.0-33.0); Mean Corpuscular Volume 93.9 fL (80.0-98.0); Mean Platelet Volume 10.6 fL (9.4-12.4); Monocytes Absolute Auto 1.3 X10*3/uL (0.1-1.2); Monocytes Percent Auto 18.6 % (2-11); Neutrophils Absolute Auto 4.4 x10*3/uL (2.0-8.3); Neutrophils Percent Auto 64.1 % (45-73); Platelet Count 163 X10*3/uL (160-400); Red Blood Count 5.08 X10*6/uL (4.60-5.80); Red Cell Distribution Width 11.8 % (11.0-16.0); White Blood Count 6.9 X10*3/uL (4.8-10.8)
[2022-02-11 09:21] LABS: INTERNATIONAL NORM RATIO 1.5 (0.9-1.1); Prothrombin Time 17.7 SEC (10.0-13.1)
[2022-02-11 09:27] LABS: Lactic Acid 1.7 mmol/L (0.5-2.0)
[2022-02-11 09:32] LABS: COVID-19 Test Negative (Negative); IDNOW Serial# 16C4AD1C; IDNOW Serial# 9DB6401D; Influenza A Negative (Negative); Influenza B2 Negative (Negative)
[2022-02-11 09:36] LABS: Troponin-I High Sensitivity 3.6 ng/L (<3.5-35.0)
[2022-02-11 09:37] LABS: B Type Natriuretic Peptide 24 pg/mL (<100)
[2022-02-11 09:43] LABS: Alanine Aminotransferase 26 U/L (0-40); Albumin Level 4.2 g/dL (3.5-5.0); Alkaline Phosphatase 51 U/L (39-117); Anion Gap 21 (12-20); Aspartate Amino Transferase 42 U/L (5-37); Bilirubin Direct 0.5 mg/dL (0.0-0.5); Bilirubin Total 1.2 mg/dL (0.0-1.0); Blood Urea Nitrogen 27 mg/dL (9-16); Calcium 9.3 mg/dL (8.4-10.2); Carbon Dioxide 23 mmol/L (22-29); Chloride 99 mmol/L (96-108); Creatinine Clr Calc Pharmacy 49.7; Estimated Glomerular Filt Rate 45; Glucose Random 123 mg/dL (60-115); Lipase 53 U/L (8-78); Magnesium 1.9 mg/dL (1.6-2.6); Potassium 3.9 mmol/L (3.3-5.1); Sodium 139 mmol/L (135-145); Total Protein 7.3 g/dL (6.5-8.0)
[2022-02-11 10:13] VITALS: BP 94/67; PULSE 110; O2SAT 96
[2022-02-11] MEDS: 0.9 % Sodium Chloride 500 ML IV ×2 (10:23→10:53)
[2022-02-11] MEDS: ondansetron HCL 4 MG/2 ML VIAL IVPUSH (10:24)
[2022-02-11] MEDS: methylPREDNISolone Sod Succ 125 MG/2 ML VIAL IVPUSH (10:24)
[2022-02-11] MEDS: Acetaminophen 325 MG TABLET 650 MG PO (10:24)
[2022-02-11 10:54] VITALS: BP 99/79; PULSE 103; O2SAT 97
[2022-02-11 12:19] VITALS: BP 122/86; PULSE 100
[2022-02-11 12:32] LABS: Appearance Urine Clear; Color Urine Dark Yellow; Glucose Urine UA Negative (Negative); Leukocyte Esterase Urine Trace (Negative); Nitrite Urine Negative (Negative); UMIC TRIGGER UACC YES; Urine Blood Negative (Negative); Urine Ketones Negative (Negative); Urine Protein Negative (Neg-Trace)
[2022-02-11 13:00] LABS: Bacteria Urine None Seen (None Seen); Squamous Epithelial Cell Urine 0-2 /HPF (0-2); WBC Urine 0-5 /HPF (0-5)
[2022-02-11 13:13] LABS: Creatinine Clr Calc Pharmacy 53.5; Estimated Glomerular Filt Rate 49
[2022-02-11 14:53] LABS: Adenovirus PCR Not Detected (Not Detect.); Bordetella parapertussis PCR Not Detected (Not Detect.); Bordetella pertussis PCR Not Detected (Not Detect.); Chlamydia pneumoniae PCR Not Detected (Not Detect.); Coronavirus 229E PCR Not Detected (Not Detect.); Coronavirus HKU1 PCR Not Detected (Not Detect.); Coronavirus NL63 PCR Not Detected (Not Detect.)
[2022-02-11 14:54] LABS: Coronavirus OC43 PCR Not Detected (Not Detect.); Human metapneumovirus PCR Not Detected (Not Detect.); Influenza A PCR Not Detected (Not Detect.); Influenza B PCR Not Detected (Not Detect.); Mycoplasma pneumoniae PCR Not Detected (Not Detect.); Parainfluenza 1 PCR Not Detected (Not Detect.); Parainfluenza 2 PCR Not Detected (Not Detect.); Parainfluenza 3 PCR Not Detected (Not Detect.); Parainfluenza 4 PCR Not Detected (Not Detect.); RSV PCR Detected (Not Detect.); Rhino/Enterovirus PCR Not Detected (Not Detect.); SARS-CoV-2 PCR Not Detected (Not Detect.)
== END 2022-02-11 15:19 | disposition home or self-care (01) ==
PROVIDERS: Emergency Provider Emergency Medicine; PCP Internal Medicine
DX: B34.9 Viral infection, unspecified (principal); J20.5 Acute bronchitis due to respiratory syncytial virus; E86.0 Dehydration; R06.02 Shortness of breath; I11.0 Hypertensive heart disease with heart failure; I50.9 Heart failure, unspecified; I48.91 Unspecified atrial fibrillation; Z20.822 Contact with and (suspected) exposure to COVID-19; Z79.01 Long term (current) use of anticoagulants; Z79.899 Other long term (current) drug therapy; Z79.02 Long term (current) use of antithrombotics/antiplatelets
CPT/HCPCS: 36415; 71045; 80048; 80076; 81001; 82565; 83605; 83690; 83735; 83880; 84484; 85025; 85610; 87040; 87502; 87633; 87635; 93005; 94640; 96361; 96374; 96375; 99284; 99285; J2405; J2930

== ENCOUNTER → 2022-04-17 13:21 | Outpatient (BNVA) | payer OTHER, SELFPAY | PROVIDERS: PCP Internal Medicine; Visit Provider Internal Medicine | DX: J44.9 Chronic obstructive pulmonary disease, unspecified (principal); J30.9 Allergic rhinitis, unspecified; G47.33 Obstructive sleep apnea (adult) (pediatric); J39.2 Other diseases of pharynx | CPT/HCPCS: 99212 ==

== ENCOUNTER 2022-05-17 08:23 | Outpatient (REF) | payer OTHER, SELFPAY ==
--- NOTE | ~2022-05-17 | XR_ITS ---
EXAMINATION: XR CHEST CLINICAL INFORMATION: COPD, shortness of breath COMPARISON: 02/11/2022 TECHNIQUE: 2 views of the chest were obtained. FINDINGS: Lungs are clear. No focal consolidation or mass. Normal pulmonary vascularity. No pleural effusion or pneumothorax. Healed left rib fracture with fracture callus. Calcified aortic arch. Normal heart size. XR/XR chest 2V IMPRESSION: No acute pulmonary disease. No significant change from prior study.
== END 2022-05-17 08:24 | disposition home or self-care (01) ==
LOC: HO.XRAY 08:23
PROVIDERS: PCP Internal Medicine; Visit Provider General Practice
DX: R06.02 Shortness of breath (principal); J44.9 Chronic obstructive pulmonary disease, unspecified
CPT/HCPCS: 71046

== ENCOUNTER → 2022-06-12 11:51 | Outpatient (BNVA) | payer OTHER, SELFPAY | PROVIDERS: PCP Internal Medicine; Referring Provider Internal Medicine; Visit Provider Nurse Practitioner | DX: Z13.89 Encounter for screening for other disorder (principal) ==

== ENCOUNTER 2022-06-19 06:12 | Outpatient (REF) | payer OTHER, SELFPAY ==
[2022-06-19 08:08] LABS: Blood Urea Nitrogen 14 mg/dL (9-16); Estimated Glomerular Filt Rate > 60
== END 2022-06-19 06:13 | disposition home or self-care (01) ==
LOC: HO.LAB 06:12
PROVIDERS: PCP Internal Medicine; Visit Provider Otolaryngology
DX: J38.3 Other diseases of vocal cords (principal)
CPT/HCPCS: 36415; 82565; 84520

== ENCOUNTER 2022-06-20 13:19 | Outpatient (REF) | payer OTHER, SELFPAY ==
--- NOTE | ~2022-06-20 | CT_ITS ---
EXAMINATION: CT SOFT TISSUE NECK WITHOUT CONTRAST CLINICAL INFORMATION: 66-year-old with hoarseness, dysphagia. COMPARISON: None TECHNIQUE: Volumetric CT imaging was performed in the axial plane with generation of coronal and sagittal reformatted images without intravenous contrast. Study is limited in this regard. This CT examination was performed using dose optimization techniques as appropriate, variously including the following: *Automated exposure control *Adjustment of mA and/or kV according to patient size (this includes techniques or standardized protocols for targeted exams where dose is matched to indication/reason for exam; i.e. extremities or head) *Use of iterative reconstruction technique DLP: 322 mGy-cm. FINDINGS: Skull Base: Visualized calvarium is intact. Very limited assessment of the included intracranial soft tissue structures demonstrates bilateral ICA mural calcifications. Sinusoidal nasal septal deviation is noted with scattered minor mucosal thickening in the paranasal sinuses. The mastoids and middle ear cavities are unopacified. Suprahyoid Neck: The nasopharynx, retropharynx and oropharynx appears smoothly contoured with unremarkable attenuation. The veterinary meat inspector and parapharyngeal spaces appear within normal limits. The parotid and submandibular glands are normal in morphology, with some fatty replacement of the parotid glands noted. The oral cavity structures appear within normal limits with a normal appearance to the base of the tongue and floor of the mouth structures. There are multiple small, nonpathologic-appearing, normal-sized bilateral submandibular space, submental and IJ chain lymph nodes. Moderately extensive partially calcified atheromatous plaque at both carotid bulbs. Correlate for any bruits. Lingual tonsils appear slightly lumpy but are otherwise grossly unremarkable. Epiglottis is smoothly contoured and normal in thickness. Infrahyoid Neck: The hypopharynx, larynx and thyroid gland appear within normal limits. Scattered small, nonpathologic-appearing normal-sized bilateral IJ chain and level 5 lymph nodes are seen bilaterally. No lymphadenopathy. Cartilaginous structures appear intact. Upper Chest: Visualized lung parenchyma is remarkable for a 2.5 mm noncalcified right upper lobe pulmonary nodule on image 351 of series 503. The visualized mediastinum demonstrates borderline enlargement of the ascending thoracic aorta, measuring 4.0 cm. Skeletal: Discogenic degenerative changes, with disc space height loss, degenerative endplate sclerosis, Schmorl's nodes and spondylosis noted at C3-C4. Otherwise, skeletal structures appear intact. Other Comments: None. CT/CT soft tissue neck wo IV con IMPRESSION: 1. No specific cause for hoarseness identified. 2. No cervical lymphadenopathy. 3. Moderately extensive partially calcified atheromatous plaque at both carotid bulbs. Correlate for any bruits. 4. Noncalcified 2.5 mm right upper lobe pulmonary nodule. If this patient is not at elevated risk (no history of smoking or underlying malignancy), then no further followup for this is suggested on the basis of the current Fleischner criteria. If the patient is at elevated risk, then a followup CT the chest would be recommended in 12 months.
== END 2022-06-20 13:20 | disposition home or self-care (01) ==
LOC: HO.CT 13:19
PROVIDERS: Visit Provider Otolaryngology
DX: R13.10 Dysphagia, unspecified (principal); R49.0 Dysphonia
CPT/HCPCS: 70490

== ENCOUNTER → 2022-07-10 13:24 | Outpatient (BNVA) | payer OTHER, SELFPAY | PROVIDERS: PCP Internal Medicine; Visit Provider Internal Medicine | DX: J44.9 Chronic obstructive pulmonary disease, unspecified (principal); J30.9 Allergic rhinitis, unspecified; G47.33 Obstructive sleep apnea (adult) (pediatric); J39.2 Other diseases of pharynx | CPT/HCPCS: 99212 ==

== ENCOUNTER → 2022-07-25 11:13 | Outpatient (BNVA) | payer OTHER, SELFPAY | PROVIDERS: PCP Internal Medicine; Visit Provider Nurse Practitioner | DX: K86.89 Other specified diseases of pancreas (principal); K21.9 Gastro-esophageal reflux disease without esophagitis; R14.0 Abdominal distension (gaseous) | CPT/HCPCS: 99212 ==

== ENCOUNTER 2022-08-14 10:16 | Outpatient (REF) | payer OTHER, SELFPAY ==
--- NOTE | ~2022-08-14 | US_ITS ---
EXAMINATION: US ABDOMEN COMPLETE CLINICAL INFORMATION: Fatty change of liver, not elsewhere classified. COMPARISON: CT abdomen 11/06/2021. Ultrasound abdomen complete 08/11/2020. Ultrasound abdomen limited 11/15/2019. X-ray abdomen 08/31/2018. TECHNIQUE: Real-time imaging of the abdominal viscera. FINDINGS: PANCREAS: Limited. The visualized pancreatic head and body are normal in appearance. The remainder of the pancreas is obscured from visualization by the overlying bowel gas. ABDOMINAL AORTA: The proximal common mid and distal segments are normal in caliber, with suboptimal visualization of the mid and distal segments. INFERIOR VENA CAVA: Visualized portions are normal. LIVER: The liver is normal in size. The liver contour is normal. There is diffuse increased liver parenchymal echogenicity echogenicity. No focal hepatic lesion. There is no intrahepatic biliary duct dilatation seen. GALLBLADDER: Normal. The gallbladder is physiologically distended without evidence of stones, sludge, polyps, wall thickening or pericholecystic fluid. COMMON BILE DUCT: Normal in caliber measuring 0.3 cm in diameter. RIGHT KIDNEY: At the interpolar aspect, a 4 mm nonobstructing calculus is seen. No hydronephrosis The kidney measures 11.4 cm in maximum dimension. At the upper pole, a 2.2 cm in maximal diameter anechoic, simple cyst is seen. LEFT KIDNEY: There is mild renal cortical thinning. No hydronephrosis or renal calculi. The kidney measures 10.7 cm in maximum dimension. At the lower pole, a 2.2 cm in maximal diameter anechoic, simple cyst is seen. SPLEEN: Normal. The spleen measures 9.3 cm in maximum dimension. FREE FLUID: None. US/US abdomen complete IMPRESSION: 1. There is generalized increase in hepatic echotexture, consistent with fatty infiltration or hepatocellular disease. Please correlate clinically. No focal hepatic mass or intrahepatic biliary dilatation is seen. 2. A 4 mm nonobstructing right renal calculus is seen. No left renal calculus is seen. No hydronephrosis is noted bilaterally. 3. There are benign, simple bilateral renal cysts, for which no imaging follow-up recommended. 4. Technically limited ultrasound examination of the pancreas and abdominal aorta.
== END 2022-08-14 10:17 | disposition home or self-care (01) ==
LOC: HO.US 10:16
PROVIDERS: PCP Internal Medicine; Visit Provider Nurse Practitioner
DX: K76.0 Fatty (change of) liver, not elsewhere classified (principal)
CPT/HCPCS: 76700

== ENCOUNTER 2022-10-03 09:33 | Outpatient (REF) | payer OTHER, SELFPAY ==
[2022-10-03 10:43] LABS: MANUAL DIFF FLAG NO
[2022-10-03 10:59] LABS: Basophils Percent Auto 0.4 % (0-2); Eosinophils Percent Auto 0.4 % (0-4); Hematocrit 44.1 % (42.0-52.0); Hemoglobin 15.2 g/dl (14.0-18.0); Imm Gran Abs Auto 0.02 X10*3/uL (0.00-0.03); Imm Gran Pct Auto 0.3 % (0.0-0.4); Lymphocytes Absolute Auto 1.5 X10*3/uL (1.2-4.9); Lymphocytes Percent Auto 19.5 % (20-40); Mean Corpuscular HGB Conc 34.5 g/dl (31.0-36.0); Mean Corpuscular Hemoglobin 31.5 pg (27.0-33.0); Mean Corpuscular Volume 91.5 fL (80.0-98.0); Monocytes Percent Auto 12.7 % (2-11); Neutrophils Absolute Auto 5.2 x10*3/uL (2.0-8.3); Neutrophils Percent Auto 66.7 % (45-73); Platelet Count 230 X10*3/uL (160-400); Red Blood Count 4.82 X10*6/uL (4.60-5.80); Red Cell Distribution Width 11.9 % (11.0-16.0); White Blood Count 7.8 X10*3/uL (4.8-10.8)
[2022-10-03 11:56] LABS: Alanine Aminotransferase 42 U/L (0-40); Albumin Level 4.1 g/dL (3.5-5.0); Alkaline Phosphatase 64 U/L (39-117); Anion Gap 12 (12-20); Aspartate Amino Transferase 30 U/L (5-37); Bilirubin Total 1.8 mg/dL (0.0-1.0); Blood Urea Nitrogen 18 mg/dL (9-16); Calcium 9.5 mg/dL (8.4-10.2); Carbon Dioxide 30 mmol/L (22-29); Chloride 105 mmol/L (96-108); Estimated Glomerular Filt Rate > 60; Glucose Random 107 mg/dL (60-115); Sodium 143 mmol/L (135-145); Total Protein 7.1 g/dL (6.5-8.0)
[2022-10-09 06:57] LABS: Alpha Fetoprotein 2.7 ng/mL (<6.1)
== END 2022-10-03 09:34 | disposition home or self-care (01) ==
LOC: HO.LAB 09:33
PROVIDERS: PCP Internal Medicine; Visit Provider Nurse Practitioner
DX: K76.0 Fatty (change of) liver, not elsewhere classified (principal); K86.89 Other specified diseases of pancreas; R14.0 Abdominal distension (gaseous); K21.9 Gastro-esophageal reflux disease without esophagitis; R74.01 Elevation of levels of liver transaminase levels; K75.81 Nonalcoholic steatohepatitis (NASH)
CPT/HCPCS: 36415; 80053; 82105; 85025; 99212

== ENCOUNTER 2022-11-01 21:18 | Emergency (ER) | payer OTHER, SELFPAY ==
--- NOTE | ~2022-11-01 | XR_ITS ---
EXAMINATION: XR CHEST CLINICAL INFORMATION: Cough COMPARISON: Chest x-ray 05/17/2022 TECHNIQUE: Frontal view of the chest was obtained. FINDINGS: No significant abnormality is noted involving the heart, lungs, mediastinum, bony thorax or soft tissues. XR/XR chest 1V IMPRESSION: Unremarkable chest examination.
--- NOTE | ~2022-11-01 | CT_ITS ---
EXAMINATION: CT HEAD WITHOUT CONTRAST CLINICAL INFORMATION: Dizziness COMPARISON: None available. TECHNIQUE: Contiguous axial imaging was performed from the skull base to vertex without intravenous administration of contrast. This CT examination was performed using dose optimization techniques as appropriate, variously including the following: *Automated exposure control *Adjustment of mA and/or kV according to patient size (this includes techniques or standardized protocols for targeted exams where dose is matched to indication/reason for exam; i.e. extremities or head) *Use of iterative reconstruction technique DLP: 707 there is no acute mGy-cm FINDINGS: There is no acute intra-axial, extra axial bleed, masses or midline shift. There is no acute infarct in the evolution. There is no edema. Rust to white matter differentiation is maintained normal. The lateral ventricles are symmetrical in size and configuration but enlarged. Bone windows reveal no calvarial abnormality. There is no scalp soft tissue abnormality. Bilateral paranasal sinuses and mastoid air cells are well-aerated. CT/CT head/brain wo IV con IMPRESSION: No acute intracranial process seen
--- NOTE | 2022-11-01 21:25 | ED.DIZZY ---
HPI - Dizziness General Chief Complaint: Dizziness Stated Complaint: DIZZINESS, DIFFICULTY BREATHING Time Seen by Provider: 11/01/22 21:22 Source: patient Mode of arrival: ambulatory Limitations: no limitations History of Present Illness HPI Narrative: Patient is 66 years old with history of atrial fibrillation, COPD, anxiety comes here for feeling dizzy for last 4 days patient having vertiginous feeling with spinning movement especially when turning his head to the left side with off-balance no nausea no vomiting no headche patient complaining of chest discomfort also for last 4 days. Patient seems very anxious on arrival patient does have history of COPD and been coughing for last 4 days using an nebulizing treatment only once today no fever chills Related Data Home Medications Medication Instructions Recorded Confirmed acetaminophen 500 mg tablet 500 mg PO Q6H PRN 05/24/20 03/20/21 apixaban 5 mg tablet 5 mg PO BID 05/24/20 03/20/21 cholecalciferol (vitamin D3) 50 50 mcg PO DAILY 05/24/20 03/20/21 mcg (2,000 unit) tablet clonazepam 1 mg tablet 1 mg PO BID PRN 05/24/20 03/20/21 fluticasone propionate 220 2 puff inhalation BID 05/24/20 03/20/21 mcg/actuation HFA aerosol inhaler hydroxyzine pamoate 25 mg capsule 25 mg PO BID 05/24/20 03/20/21 levothyroxine 100 mcg tablet 100 mcg PO DAILY 05/24/20 03/20/21 lisinopril 40 mg tablet 40 mg PO DAILY 05/24/20 03/20/21 loratadine 10 mg tablet 10 mg PO DAILY 05/24/20 03/20/21 metoprolol succinate 200 mg 200 mg PO DAILY 05/24/20 03/20/21 tablet,extended release 24 hr rosuvastatin 40 mg tablet 40 mg PO DAILY 05/24/20 03/20/21 umeclidinium 62.5 mcg/actuation 1 inh inhalation DAILY 05/24/20 03/20/21 blister powder for inhalation zolpidem 10 mg tablet 10 mg PO BEDTIME PRN 05/24/20 03/20/21 albuterol sulfate 2.5 mg/3 mL mg inhalation 03/20/21 03/20/21 (0.083 %) solution for nebulization hydrochlorothiazide 12.5 mg tablet 12.5 mg PO DAILY 10/19/21 furosemide 40 mg tablet 40 mg PO DAILY 10/03/22 Previous Rx's Medication Instructions Recorded vitamin E (dl, acetate) 180 mg 180 mg PO BID #180 caps 01/01/22 (400 unit) capsule omeprazole 20 mg capsule,delayed 20 mg PO DAILY 30 days #30 caps 07/25/22 release simethicone 180 mg capsule 180 mg PO QID 30 days #120 caps 07/25/22 [id number] 1 cap PO QID 30 days #120 caps 09/24/22 36,000-114,000-180,000 unit capsule,delay rel (Creon) benzonatate 200 mg capsule 200 mg PO TID PRN cough #20 caps 11/02/22 meclizine 25 mg tablet 25 mg PO TID PRN dizziness #20 tabs 11/02/22 Allergies Allergy/AdvReac Type Severity Reaction Status Date / Time Iodinated Contrast Media Allergy Unknown HIVES Verified 10/03/22 09:55 [CONTRAST, IV] kiwi [KIWI] Allergy Unknown THROAT Verified 10/03/22 09:55 SWELLING Review of Systems Review of Systems: Yes all other systems are reviewed and are negative [facility] Past Medical History Medical History Afib Allergic rhinitis Anxiety Bronchitis CHF (congestive heart failure) COPD (chronic obstructive pulmonary disease) HTN (hypertension) Hypothyroid Obesity (BMI 30-39.9) CE (obstructive sleep apnea) Palpitation Throat disorder Surgical History History of surgery on arm Hx of colonoscopy Hx of eye surgery Hx of knee surgery Hx of tonsillectomy Family History Family History Family/Other No problems noted. Social History Social History Alcohol intake: never Patient Tobacco Use Status: Never used Tobacco Advance Directives: No Advance Directives Information Provided: Yes Physical Exam Vital Signs: Vital Signs: Last Vital Signs Temp 98.1 F 11/01/22 22:49 Pulse 83 11/01/22 22:49 Resp 17 06/23/23 22:49 BP 106/73 11/01/22 22:49 Pulse Ox 96 11/01/22 22:49 O2 Del Method Room Air 11/01/22 22:49 BMI result Body Mass Index 38.4 Appearance: Alert. Oriented X3. No acute distress. Eyes: PERRLA, No Nystagmus increased dizziness on turning his head to left side ENT: Pharynx normal. Oral Mucosa moist Neck: Normal inspection. Neck supple. CVS: Normal heart rate and rhythm. Pulses normal. Respiratory: No respiratory distress. Equal air entry bilateral, no wheezing/rales/rhonchi Abdomen: Soft and nontender. Bowel sounds are present, no mass palpable, no CVA tenderness Skin: Skin warm and dry. Normal skin color. Normal skin turgor. Extremities: No lower extremity edema. No calf tenderness Neuro: Oriented X 3. No motor deficit. No sensory deficit.No cerebellar signs , cranial nerves II-XII intact Medications Administered Discontinued Medications Generic Name Dose Route Start Last Admin Trade Name Freq PRN Reason Stop Dose Admin Meclizine HCl 50 mg 11/01/22 22:23 11/01/22 22:56 Meclizine Hcl 25 Mg Tablet PO 11/01/22 22:24 50 mg ONCE ONE Administration Medical Decision Making Medical Decision Making [facility] Narrative: Patient chronic bronchitis with cough came for acute dizziness last 4 days clinically patient has benign positional vertigo CT head is negative patient felt better after meclizine and ambulatory in the ED discharge patient home Lab Data [facility] Lab Attestation statement: I reviewed the patient's lab results. 11/01/22 22:48 11/01/22 22:48 Labs: Lab Results 11/01/22 11/01/22 11/01/22 Range/Units 22:48 22:48 22:48 WBC 7.4 (4.8-10.8) X10*3/uL RBC 4.44 L (4.60-5.80) X10*6/uL Hgb 14.1 (14.0-18.0) g/dl Hct 41.3 L (42.0-52.0) % MCV 93.0 (80.0-98.0) fL MCH 31.8 (27.0-33.0) pg MCHC 34.1 (31.0-36.0) g/dl RDW 12.4 (11.0-16.0) % Plt Count 230 (160-400) X10*3/uL MPV 9.9 (9.4-12.4) fL Immature Gran % (Auto) 0.4 (0.0-0.4) % Neut % (Auto) 61.3 (45-73) % Lymph % (Auto) 26.0 (20-40) % [place] % (Auto) 11.2 H (2-11) % Eos % (Auto) 0.7 (0-4) % Baso % (Auto) 0.4 (0-2) % Lymph # (Auto) 1.9 (1.2-4.9) X10*3/uL [place] # (Auto) 0.8 (0.1-1.2) X10*3/uL Eos # (Auto) 0.1 (0.0-0.4) X10*3/uL Baso # (Auto) 0.0 (0.0-0.2) X10*3/uL Abs Immat Gran (auto) 0.03 (0.00-0.03) X10*3/uL Absolute Neuts (auto) 4.5 (2.0-8.3) x10*3/uL Absolute Nucleated RBC 0.000 (0.0-0.012) X10*3/uL Nucleated RBC % (auto) 0.0 (0.0-0.2) /100WBC PT 14.0 H (10.0-13.1) SEC INR 1.2 H (0.9-1.1) Sodium 140 (135-145) mmol/L Potassium 3.7 (3.3-5.1) mmol/L Chloride 104 (96-108) mmol/L Carbon Dioxide 24 (22-29) mmol/L Anion Gap 16 (12-20) BUN 27 H (9-16) mg/dL Creatinine 1.42 H (0.5-1.4) mg/dL Estim Creat Clear Calc 64.8 Estimated GFR 50 Random Glucose 117 H (60-115) mg/dL Calcium 9.5 (8.4-10.2) mg/dL Magnesium 1.9 (1.6-2.6) mg/dL Total Bilirubin 0.7 (0.0-1.0) mg/dL AST 24 (5-37) U/L ALT 30 (0-40) U/L Alkaline Phosphatase 52 (39-117) U/L Troponin I High Sens (<3.5-35.0) ng/L Total Protein 7.4 (6.5-8.0) g/dL Albumin 3.8 (3.5-5.0) g/dL 11/01/22 Range/Units 22:48 WBC (4.8-10.8) X10*3/uL RBC (4.60-5.80) X10*6/uL Hgb (14.0-18.0) g/dl Hct (42.0-52.0) % MCV (80.0-98.0) fL MCH (27.0-33.0) pg MCHC (31.0-36.0) g/dl RDW (11.0-16.0) % Plt Count (160-400) X10*3/uL MPV (9.4-12.4) fL Immature Gran % (Auto) (0.0-0.4) % Neut % (Auto) (45-73) % Lymph % (Auto) (20-40) % [place] % (Auto) (2-11) % Eos % (Auto) (0-4) % Baso % (Auto) (0-2) % Lymph # (Auto) (1.2-4.9) X10*3/uL [place] # (Auto) (0.1-1.2) X10*3/uL Eos # (Auto) (0.0-0.4) X10*3/uL Baso # (Auto) (0.0-0.2) X10*3/uL Abs Immat Gran (auto) (0.00-0.03) X10*3/uL Absolute Neuts (auto) (2.0-8.3) x10*3/uL Absolute Nucleated RBC (0.0-0.012) X10*3/uL Nucleated RBC % (auto) (0.0-0.2) /100WBC PT (10.0-13.1) SEC INR (0.9-1.1) Sodium (135-145) mmol/L Potassium (3.3-5.1) mmol/L Chloride (96-108) mmol/L Carbon Dioxide (22-29) mmol/L Anion Gap (12-20) BUN (9-16) mg/dL Creatinine (0.5-1.4) mg/dL Estim Creat Clear Calc Estimated GFR Random Glucose (60-115) mg/dL Calcium (8.4-10.2) mg/dL Magnesium (1.6-2.6) mg/dL Total Bilirubin (0.0-1.0) mg/dL AST (5-37) U/L ALT (0-40) U/L Alkaline Phosphatase (39-117) U/L Troponin I High Sens < 2.7 (<3.5-35.0) ng/L Total Protein (6.5-8.0) g/dL Albumin (3.5-5.0) g/dL Independent Interpretation I performed an independent interpretation of an: EKG Interpretation: Atrial fibrillation with heart rate 84 beats per minute no acute ST wave changes no acute ischemia Discharge Plan Discharge Clinical Impression: Benign paroxysmal positional vertigo, Chronic bronchitis Patient Disposition: Home, Self-Care Instructions: Chronic Bronchitis (ED), Benign Paroxysmal Positional Vertigo (ED) Additional Instructions: Care and cautions as advised Meclizine tablet 1 tablet every 8 hours as needed for dizziness Follow-up with PCP Use your nebulizer treatment every 6 hours as needed and take cough drops Cuidados y precauciones seg?n lo recomendado Tableta de meclizina 1 tableta cada 8 horas seg?n sea necesario para los mareos Seguimiento con PCP Use shields tratamiento con nebulizador cada 6 horas seg?n sea necesario y tome pastillas para la tos Prescriptions: New meclizine 25 mg tablet 25 mg PO TID PRN (Reason: dizziness) Qty: 20 0RF benzonatate 200 mg capsule 200 mg PO TID PRN (Reason: cough) Qty: 20 0RF No Action vitamin E (dl, acetate) 180 mg (400 unit) capsule 180 mg PO BID Qty: 180 1RF Creon 36,000-114,000- 180,000 unit capsule,delayed release(DR/EC) 1 cap PO QID 30 Days Qty: 120 3RF Rx Instructions: administer with meals and/or snacks loratadine 10 mg tablet 10 mg PO DAILY zolpidem 10 mg tablet 10 mg PO BEDTIME PRN hydroxyzine pamoate 25 mg capsule 25 mg PO BID cholecalciferol (vitamin D3) 50 mcg (2,000 unit) tablet 50 mcg PO DAILY lisinopril 40 mg tablet 40 mg PO DAILY Eliquis 5 mg tablet 5 mg PO BID Incruse Ellipta 62.5 mcg/actuation blister with device 1 inh inhalation DAILY clonazepam 1 mg tablet 1 mg PO BID PRN Flovent HFA 220 mcg/actuation HFA aerosol inhaler 2 puff inhalation BID rosuvastatin 40 mg tablet 40 mg PO DAILY metoprolol succinate 200 mg tablet extended release 24 hr 200 mg PO DAILY levothyroxine 100 mcg tablet 100 mcg PO DAILY acetaminophen 500 mg tablet 500 mg PO Q6H PRN furosemide 40 mg tablet 40 mg PO DAILY albuterol sulfate 2.5 mg /3 mL (0.083 %) solution for nebulization inhalation omeprazole 20 mg capsule,delayed release(DR/EC) 20 mg PO DAILY 30 Days Qty: 30 6RF simethicone 180 mg capsule 180 mg PO QID 30 Days Qty: 120 6RF Rx Instructions: after meals hydrochlorothiazide 12.5 mg tablet 12.5 mg PO DAILY Print Language: Vietnamese
[2022-11-01 21:30] VITALS: BP 152/88; PULSE 88; RESP 18; TEMP 37; O2SAT 98; BMI 38.4
--- NOTE | 2022-11-01 22:22 | ECG_ITS ---
Test Reason : CHEST PAIN Blood Pressure : / mmHG Vent. Rate : 084 BPM Atrial Rate : 000 BPM P-R Int : 000 ms QRS Dur : 092 ms QT Int : 374 ms P-R-T Axes : 000 001 005 degrees QTc Int : 441 ms Atrial fibrillation Abnormal ECG When compared with ECG of 11-FEB-2022 09:24, No significant change was found Referred By: Tanner Perez Electronically Signed By:ANDREWS MARTINS
[2022-11-01 22:49] VITALS: BP 106/73; PULSE 83; RESP 17; TEMP 36.7; O2SAT 96
[2022-11-01 22:52] LABS: MANUAL DIFF FLAG NO
[2022-11-01 22:53] LABS: Basophils Percent Auto 0.4 % (0-2); Eosinophils Absolute Auto 0.1 X10*3/uL (0.0-0.4); Eosinophils Percent Auto 0.7 % (0-4); Hematocrit 41.3 % (42.0-52.0); Hemoglobin 14.1 g/dl (14.0-18.0); Imm Gran Abs Auto 0.03 X10*3/uL (0.00-0.03); Imm Gran Pct Auto 0.4 % (0.0-0.4); Lymphocytes Absolute Auto 1.9 X10*3/uL (1.2-4.9); Mean Corpuscular HGB Conc 34.1 g/dl (31.0-36.0); Mean Corpuscular Hemoglobin 31.8 pg (27.0-33.0); Mean Platelet Volume 9.9 fL (9.4-12.4); Monocytes Absolute Auto 0.8 X10*3/uL (0.1-1.2); Monocytes Percent Auto 11.2 % (2-11); Neutrophils Absolute Auto 4.5 x10*3/uL (2.0-8.3); Neutrophils Percent Auto 61.3 % (45-73); Platelet Count 230 X10*3/uL (160-400); Red Blood Count 4.44 X10*6/uL (4.60-5.80); Red Cell Distribution Width 12.4 % (11.0-16.0); White Blood Count 7.4 X10*3/uL (4.8-10.8)
[2022-11-01] MEDS: Meclizine HCl 25 MG TABLET 50 MG PO (22:56)
[2022-11-01 22:59] LABS: INTERNATIONAL NORM RATIO 1.2 (0.9-1.1)
[2022-11-01 23:09] LABS: Alanine Aminotransferase 30 U/L (0-40); Albumin Level 3.8 g/dL (3.5-5.0); Alkaline Phosphatase 52 U/L (39-117); Anion Gap 16 (12-20); Aspartate Amino Transferase 24 U/L (5-37); Bilirubin Total 0.7 mg/dL (0.0-1.0); Blood Urea Nitrogen 27 mg/dL (9-16); Calcium 9.5 mg/dL (8.4-10.2); Carbon Dioxide 24 mmol/L (22-29); Chloride 104 mmol/L (96-108); Creatinine Clr Calc Pharmacy 64.8; Estimated Glomerular Filt Rate 50; Glucose Random 117 mg/dL (60-115); Magnesium 1.9 mg/dL (1.6-2.6); Potassium 3.7 mmol/L (3.3-5.1); Sodium 140 mmol/L (135-145); Total Protein 7.4 g/dL (6.5-8.0)
[2022-11-01 23:17] LABS: Troponin-I High Sensitivity < 2.7 ng/L (<3.5-35.0)
== END 2022-11-02 00:37 | disposition home or self-care (01) ==
PROVIDERS: Emergency Provider Internal Medicine; PCP Internal Medicine
DX: R07.89 Other chest pain (principal); R06.02 Shortness of breath; J40 Bronchitis, not specified as acute or chronic; R42 Dizziness and giddiness; Z79.899 Other long term (current) drug therapy
CPT/HCPCS: 36415; 70450; 71045; 80053; 83735; 84484; 85025; 85610; 93005; 99284; 99285

== ENCOUNTER 2022-11-28 08:00 | Outpatient (RCR) | payer OTHER, SELFPAY ==
[2022-11-26 14:30] VITALS: BP 135/87; PULSE 89
== END 2022-12-31 08:38 | disposition home or self-care (01) ==
LOC: HO.PT 08:00
PROVIDERS: PCP Internal Medicine; Visit Provider Registered Nurse
DX: R42 Dizziness and giddiness (principal)
CPT/HCPCS: 95992; 97110; 97162

== ENCOUNTER 2022-12-13 08:18 | Outpatient (REF) | payer OTHER, SELFPAY ==
[2022-12-13 15:33] LABS: Cholesterol 178 mg/dL; HDL Cholesterol 40 mg/dL; LDL Cholesterol Calculated 105 mg/dl; Triglycerides 167 mg/dL
[2022-12-14 04:29] LABS: HBsAGNum1 0.63 S/CO (0.00-0.99); HIV AB/AG Nonreactive (Nonreactive); HIV Num 1 0.07 S/CO (0.00-0.99); Hepatitis B Surface Antigen Negative (Negative)
[2022-12-14 04:37] LABS: ~HepC Num1 0.12 S/CO (0.00-0.79); ~Hepatitis C Antibody Nonreactive (Nonreactive)
== END 2022-12-13 08:19 | disposition home or self-care (01) ==
LOC: HO.HHCL 08:18
PROVIDERS: Visit Provider Internal Medicine
DX: I10 Essential (primary) hypertension (principal); Z77.21 Contact with and (suspected) exposure to potentially hazardous body fluids
CPT/HCPCS: 36415; 80061; 86803; 87340; 87389

== ENCOUNTER 2022-12-19 07:00 | Outpatient (REF) | payer OTHER, SELFPAY ==
--- NOTE | ~2022-12-19 | FL_ITS ---
EXAMINATION: FL BARIUM SWALLOW CLINICAL INFORMATION: Patient complaining of transient dysphagia to solids and episodic loss of voice. COMPARISON: None available. Correlation made with CT soft tissue neck 06/20/2022. TECHNIQUE: Barium swallow examination is performed using fluoroscopic evaluation in addition to multiple fluoroscopic spot views. The patient is imaged both upright and prone and using both thick and thin sulfate along with effervescent granules. Fluoroscopy time: 3.1 minutes DAP: 23.665 Gycm2 Images: 51 FINDINGS: The oropharyngeal phase of swallow is normal. Mild pooling in the vallecula and piriform sinuses was noted, which cleared upon subsequent swallows. There was trace laryngeal penetration on thick barium to the level of the false cords, without gross aspiration. This cleared upon patient throat clearing, and was felt by the patient. No further episodes of penetration or aspiration. The esophagus has a normal caliber, without evidence of stricture, mass, or mucosal abnormality. Minimal disordered tertiary contractions were noted after the primary peristaltic wave within the distal one half of the esophagus, consistent with mild presbyesophagus. No evidence of hiatus hernia. No evidence of gastro-esophageal reflux. Limited imaging of the stomach, duodenal bulb, duodenum, and proximal small bowel demonstrate no abnormalities. Effervescent granule artifact noted in the stomach. Mild calcification of the aortic arch noted incidentally. FL/FL barium swallow IMPRESSION: Transient laryngeal penetration noted on thick barium, which was felt by the patient, and subsequently cleared with patient throat clearing. No gross aspiration in the subglottic region. No additional aspiration episode identified. Mild presbyesophagus. Esophagus otherwise normal. Remainder the examination is normal.
== END 2022-12-19 07:01 | disposition home or self-care (01) ==
LOC: HO.XRAY 07:00
PROVIDERS: PCP Internal Medicine; Visit Provider Otolaryngology
DX: R13.10 Dysphagia, unspecified (principal)
CPT/HCPCS: 74220

== ENCOUNTER → 2022-12-19 07:03 | Outpatient (BNV) | payer OTHER, SELFPAY | PROVIDERS: PCP Internal Medicine; Visit Provider Radiology Diagnostic Radiology | DX: R13.10 Dysphagia, unspecified (principal) | CPT/HCPCS: 74221 ==

== ENCOUNTER 2023-01-08 04:23 | Emergency (ER) | payer OTHER, SELFPAY ==
[2023-01-08 04:27] VITALS: BP 157/91; PULSE 88; RESP 18; TEMP 36.8; O2SAT 98; BMI 36.6
[2023-01-08 04:45] VITALS: BP 140/89; PULSE 83; RESP 17; TEMP 36.8; O2SAT 98
--- NOTE | 2023-01-08 04:47 | ED_ITS ---
HPI - General Adult General Chief complaint: Dyspnea Stated complaint: Shortness of breath, sore throat Time Seen by Provider: 01/08/23 04:40 Source: patient Mode of arrival: ambulatory Limitations: no limitations History of Present Illness HPI narrative: Patient comes to the emergency room requesting to be tested for COVID. Patient's daughter recently tested positive for COVID. Patient states that he also have a sore throat. Denies chest pain, patient states that he has shortness of breath for a few seconds and then it self-resolved. Patient known to have COPD. Patient states it has been well controlled with his medications. Denies any fever chills, denies worsening coughing or sputum production. Patient is not oxygen dependent Related Data Home Medications Medication Instructions Recorded Confirmed acetaminophen 500 mg tablet 500 mg PO Q6H PRN 05/24/20 03/20/21 apixaban 5 mg tablet 5 mg PO BID 05/24/20 03/20/21 cholecalciferol (vitamin D3) 50 50 mcg PO DAILY 05/24/20 03/20/21 mcg (2,000 unit) tablet clonazepam 1 mg tablet 1 mg PO BID PRN 05/24/20 03/20/21 fluticasone propionate 220 2 puff inhalation BID 05/24/20 03/20/21 mcg/actuation HFA aerosol inhaler hydroxyzine pamoate 25 mg capsule 25 mg PO BID 05/24/20 03/20/21 levothyroxine 100 mcg tablet 100 mcg PO DAILY 05/24/20 03/20/21 lisinopril 40 mg tablet 40 mg PO DAILY 05/24/20 03/20/21 loratadine 10 mg tablet 10 mg PO DAILY 05/24/20 03/20/21 metoprolol succinate 200 mg 200 mg PO DAILY 05/24/20 03/20/21 tablet,extended release 24 hr rosuvastatin 40 mg tablet 40 mg PO DAILY 05/24/20 03/20/21 umeclidinium 62.5 mcg/actuation 1 inh inhalation DAILY 05/24/20 03/20/21 blister powder for inhalation zolpidem 10 mg tablet 10 mg PO BEDTIME PRN 05/24/20 03/20/21 albuterol sulfate 2.5 mg/3 mL mg inhalation 03/20/21 03/20/21 (0.083 %) solution for nebulization hydrochlorothiazide 12.5 mg tablet 12.5 mg PO DAILY 10/19/21 furosemide 40 mg tablet 40 mg PO DAILY 10/03/22 Previous Rx's Medication Instructions Recorded vitamin E (dl, acetate) 180 mg 180 mg PO BID #180 caps 01/01/22 (400 unit) capsule omeprazole 20 mg capsule,delayed 20 mg PO DAILY 30 days #30 caps 07/25/22 release simethicone 180 mg capsule 180 mg PO QID 30 days #120 caps 07/25/22 [id number] 1 cap PO QID 30 days #120 caps 09/24/22 36,000-114,000-180,000 unit capsule,delay rel (Creon) benzonatate 200 mg capsule 200 mg PO TID PRN cough #20 caps 11/02/22 meclizine 25 mg tablet 25 mg PO TID PRN dizziness #20 tabs 11/02/22 Allergies Allergy/AdvReac Type Severity Reaction Status Date / Time Iodinated Contrast Media Allergy Unknown HIVES Verified 10/03/22 09:55 [CONTRAST, IV] kiwi [KIWI] Allergy Unknown THROAT Verified 10/03/22 09:55 SWELLING Review of Systems Review of Systems: Constitutional : No Weight loss, No Fever, No Chills, No Night Sweats, No Fatigue, No Malaise ENT/Mouth : No Hearing loss, No Ear Pain, No Nasal Congestion, No Sinus Pain, No Hoarseness, complaining of mild sore throat, No Rhinorrhea, No Swallowing Difficulty Eyes: No Eye Pain, No Swelling, No Redness, No Foreign Body, No Discharge, No Vision Changes Cardiovascular : No Chest Pain, No SOB, No Dyspnea on Exertion, No Orthopnea, No Edema, No Palpitations Respiratory : No Cough, No Sputum, No Wheezing, No Smoke Exposure, No Dyspnea Gastrointestinal : No Nausea, No Vomiting, No Diarrhea, No Constipation, No abdominal Pain, No Hematochezia, No Melena Genitourinary : no irregular bleeding, No Dysuria, No Urinary Frequency, No Hematuria, No Urinary Incontinence, No Urgency, No Flank Pain, No Urinary Flow Changes, No Hesitancy Musculoskeletal : No joint pain, No Myalgias, No Joint Swelling Skin : No Skin Lesions, No rash Neuro : No Weakness, No Numbness, No Paresthesias, No Loss of Consciousness, No Dizziness, No Headache Psych : No Anxiety/Panic, No Depression, No SI/HI/AH/VH, No Social Issues, Heme/Lymph: No Bruising, No Bleeding,No Lymphadenopathy Endocrine : No Polyuria, No Polydipsia, No Temperature Intolerance COUNT INCLUDES THE [facility] Past Medical History Medical History Afib Allergic rhinitis Anxiety Bronchitis CHF (congestive heart failure) COPD (chronic obstructive pulmonary disease) HTN (hypertension) Hypothyroid Obesity (BMI 30-39.9) CE (obstructive sleep apnea) Palpitation Throat disorder Surgical History History of surgery on arm Hx of colonoscopy Hx of eye surgery Hx of knee surgery Hx of tonsillectomy Family History Family History Family/Other No problems noted. Social History Social History Alcohol intake: never Patient Tobacco Use Status: Never used Tobacco Smoked in Last 30 Days: No Use of substances other than those prescribed or required for medical reasons: No Advance Directives: No Advance Directives Information Provided: No Physical Exam ED Vital Signs: Vital Signs - 24 hr 01/08/23 04:27 01/08/23 04:45 Temperature 98.2 F 98.3 F Pulse Rate 88 83 Respiratory Rate 18 17 Blood Pressure 157/91 H 140/89 H Pulse Oximetry 98 98 Oxygen Delivery Method Room Air Room Air BMI result Body Mass Index 36.6 Const Other: Appearance: Alert. Oriented X3. No acute distress. Eyes: Pupils equal, round and reactive to light. ENT: Pharynx normal. No exudates Neck: Normal inspection. Neck supple. No lymph nodes noted. No crepitus CVS: Normal heart rate and rhythm. Pulses normal. Normal S1 and S2 Respiratory: No respiratory distress. Breath sounds normal. No Wheezing. No rales Abdomen: Soft and nontender. No rigidity. No distention. Skin: Skin warm and dry. Normal skin color. Normal skin turgor. Extremities: No lower extremity edema. No Lacerations. No Rash Neuro: Oriented X 3. No motor deficit. No sensory deficit. Moving all extremities. No slurred speech. CN 2 through 12 grossly intact Psych: calm, cooperative, normal affect Course Course Course Narrative: -patient's vital stable, no shortness of breath, normal physical exam. -per patient's request, we will test him for COVID, influenza and strep Medical Decision Making Medical Decision Making MDM Narrative: Patient's physical exam is normal -my interpretation of labs, negative for COVID influenza and strep -patient likely having viral pharyngitis Differential Diagnosis Differential Diagnoses: The differential diagnosis associated with the presentation includes (COVID, influenza, strep, viral pharyngitis) Lab Data Labs: Lab Results 01/08/23 01/08/23 01/08/23 Range/Units 04:51 04:51 04:51 COVID-19 (KRISTEN) Negative (Negative) COVID-19 Clin Com See Note Influenza Type A (KRIS) Negative (Negative) Influenza Type B (KRIS) Negative (Negative) Influenza A & B Note See Note S. pyogenes GrpA KRIS Negative (Negative) Discharge Plan Discharge Clinical Impression: Acute viral pharyngitis Patient Disposition: Home, Self-Care Instructions: Pharyngitis (ED) Additional Instructions: Please follow-up with your primary care physician tomorrow. If you have any worsening or new symptoms, please return to the emergency room or call 911 Prescriptions: No Action vitamin E (dl, acetate) 180 mg (400 unit) capsule 180 mg PO BID Qty: 180 1RF Creon 36,000-114,000- 180,000 unit capsule,delayed release(DR/EC) 1 cap PO QID 30 Days Qty: 120 3RF Rx Instructions: administer with meals and/or snacks meclizine 25 mg tablet 25 mg PO TID PRN (Reason: dizziness) Qty: 20 0RF benzonatate 200 mg capsule 200 mg PO TID PRN (Reason: cough) Qty: 20 0RF loratadine 10 mg tablet 10 mg PO DAILY zolpidem 10 mg tablet 10 mg PO BEDTIME PRN hydroxyzine pamoate 25 mg capsule 25 mg PO BID cholecalciferol (vitamin D3) 50 mcg (2,000 unit) tablet 50 mcg PO DAILY lisinopril 40 mg tablet 40 mg PO DAILY Eliquis 5 mg tablet 5 mg PO BID Incruse Ellipta 62.5 mcg/actuation blister with device 1 inh inhalation DAILY clonazepam 1 mg tablet 1 mg PO BID PRN Flovent HFA 220 mcg/actuation HFA aerosol inhaler 2 puff inhalation BID rosuvastatin 40 mg tablet 40 mg PO DAILY metoprolol succinate 200 mg tablet extended release 24 hr 200 mg PO DAILY levothyroxine 100 mcg tablet 100 mcg PO DAILY acetaminophen 500 mg tablet 500 mg PO Q6H PRN furosemide 40 mg tablet 40 mg PO DAILY albuterol sulfate 2.5 mg /3 mL (0.083 %) solution for nebulization inhalation omeprazole 20 mg capsule,delayed release(DR/EC) 20 mg PO DAILY 30 Days Qty: 30 6RF simethicone 180 mg capsule 180 mg PO QID 30 Days Qty: 120 6RF Rx Instructions: after meals hydrochlorothiazide 12.5 mg tablet 12.5 mg PO DAILY
[2023-01-08 05:09] LABS: IDNOW Serial# 6674DD1D; Strep A Nucleic Acid Negative (Negative)
[2023-01-08 05:13] LABS: IDNOW Serial# 08D9AD1C; IDNOW Serial# BCCEAD1C; Influenza A Negative (Negative); Influenza B2 Negative (Negative)
[2023-01-08 05:14] LABS: COVID-19 Test Negative (Negative)
[2023-01-08 05:48] VITALS: BP 118/95; PULSE 79; RESP 19; TEMP 36.7; O2SAT 98
--- NOTE | 2023-01-08 05:48 | PC.NURSE ---
proposal writer utilized upon pt arrival. vss. pt ambulatory at discharge. pt reports sob resolved at this time. pt requested medication for coughing. this rn discussed with dr vicente. dr vicente to place medication order. pt provided with discharge packet. pt verbalized understanding of discharge plan
== END 2023-01-08 05:51 | disposition home or self-care (01) ==
PROVIDERS: Emergency Provider Emergency Medicine; PCP Internal Medicine
DX: J02.9 Acute pharyngitis, unspecified (principal); R06.02 Shortness of breath; Z20.822 Contact with and (suspected) exposure to COVID-19; I10 Essential (primary) hypertension; I48.91 Unspecified atrial fibrillation; Z79.01 Long term (current) use of anticoagulants; Z79.899 Other long term (current) drug therapy
CPT/HCPCS: 87502; 87635; 87651; 99283; 99284

== ENCOUNTER 2023-01-23 10:54 | Outpatient (AMB) | payer OTHER, SELFPAY ==
--- NOTE | 2023-01-23 11:00 | MHC.OFFVIS ---
Intake Vital Signs 01/23/23 11:01 Height 5 ft 5 in Weight 217 lb BMI 36.1 BP 102/74 Blood Pressure Location Lt brachial Position Sitting Pulse 82 Pulse Source Pulse Oximeter Pulse Oximetry (%) 98 Oxygen Delivery Method Room Air Intake Visit Reasons: copd Intake Note: pt is here for follow up and states he is coughing and short of breath. Neon Sign Worker Required: Yes Neon Sign Worker Name: [email or web address] [id number] Allergies Iodinated Contrast Media [CONTRAST, IV] Allergy (Unknown, Verified 01/23/23 11:20) HIVES kiwi [KIWI] Allergy (Unknown, Verified 01/23/23 11:20) THROAT SWELLING Medication List - Last Reconciled 01/23/23 by Curt Marroquin MD acetaminophen 500 mg PO Q6H PRN albuterol sulfate mg inhalation albuterol sulfate 90 mcg/actuation 2 puffs inhalation Q6H PRN apixaban 5 mg PO BID benzonatate 100 mg PO TID PRN benzonatate 200 mg PO TID PRN cholecalciferol (vitamin D3) 50 mcg PO DAILY clonazepam 1 mg PO BID PRN fluticasone propionate 220 mcg/actuation 2 puffs inhalation BID furosemide 40 mg PO DAILY hydrochlorothiazide 12.5 mg PO DAILY hydroxyzine pamoate 25 mg PO BID levothyroxine 100 mcg PO DAILY [id number] 36,000-114,000- 180,000 unit (Creon) 1 cap PO QID 30 days lisinopril 40 mg PO DAILY loratadine 10 mg PO DAILY meclizine 25 mg PO TID PRN metoprolol succinate ER 200 mg PO DAILY omeprazole 20 mg PO DAILY 30 days rosuvastatin 40 mg PO DAILY simethicone 180 mg PO QID 30 days umeclidinium 62.5 mcg/actuation 1 inh inhalation DAILY vitamin E (dl, acetate) 180 mg PO BID zolpidem 10 mg PO BEDTIME PRN Do you need a note to return to daycare/school/sports/work: No HPI copd HPI Details This 67 years old gentleman's, Pashto-speaking, very pleasant,, comes after 6 months for follow-up He is a known case of obstructive sleep apnea but could not use the CPAP and does not want to use in future. He tries to lose weight and has lost only about. 3 lb in the last 6 months He has always sleeping in lateral position and his she say is that he can sleep about 6 hours without any problem. However he does continue to snore, as per his . He has had palatoplasty in the past. Breathing elias he complains of frequent bouts of cough and gets short of breath on walking even in the house. Denies any acute attacks of wheezing, or any shortness of breath at rest. He does use Incruse Ellipta 1 inhalation daily and albuterol 2 puffs Q 4-6 hours, and he is also on cough medicine, benzonatate 100 mg t.i.d. p.r.n.. [facility] Medical History Throat disorder Bronchitis CHF (congestive heart failure) Afib Allergic rhinitis COPD (chronic obstructive pulmonary disease) CE (obstructive sleep apnea) Obesity (BMI 30-39.9) Hypothyroid Anxiety Palpitation HTN (hypertension) Surgical History History of surgery on arm Hx of eye surgery Hx of colonoscopy Hx of knee surgery Hx of tonsillectomy Family History Family/Other No problems noted. Social History Alcohol intake: never Patient Tobacco Use Status: Never used Tobacco Review of Systems Const All systems reviewed & are unremarkable except as noted in HPI and below Eyes Reports no additional complaints ENT Reports nasal congestion (Mild intermittent) Card Denies chest pain, Reports irregular heart rhythm (Atrial fib) and Denies leg edema Resp Reports as per HPI GI Reports no additional complaints Reports no additional complaints Musc Reports abnormal gait (Uses cane), Reports back pain and Reports arthralgias Skin/Breast Reports system reviewed and no additional complaints, except as documented Neuro Reports no additional complaints and Reports abnormal gait (Uses cane) Psych Reports no additional complaints Physical Exam Vital Signs: Last Vital Signs Pulse 82 01/23/23 11:01 BP 102/74 01/23/23 11:01 Pulse Ox 98 01/23/23 11:01 Oxygen Delivery Method Room Air 01/23/23 11:01 BMI result Body Mass Index 36.1 Const General: comfortable, no acute distress, alert and awake Orientation/consciousness: patient oriented x3 HEENT Head: Yes normal to inspection General nose exam: No nasal polyps present and No nasal discharge present Face and sinus: Yes sinuses nontender Mouth: oropharynx normal Throat: Yes posterior oropharynx normal Eyes General: appearance normal, both eyes and all related structures Neck Neck: Yes normal visual inspection, Yes no lymphadenopathy, Yes trachea midline and Yes no JVD Thyroid: Thyroid normal Chest Chest palpation & inspection: normal inspection of the chest, normal palpation of entire chest wall and no tenderness Resp Other: Percussion note is resonant, breath sounds are distant with prolonged expiratory phase. No wheezes or rhonchi are heard. Cardio Palpation: normal PMI Rate: regular rate Rhythm: regular rhythm Heart sounds: no gallops and no murmurs GI Palpation (GI): Soft to palpation, nontender, No hepatosplenomegaly present and no masses Auscultation: normal bowel sounds Back/Spine/Pelvis Thoracic/Lumbar Spine: thoracic and lumbar spine normal to inspection and thoraco-lumbar ROM limited Skin General skin exam: no rashes or lesions noted Neuro General: patient oriented x3 and no focal motor deficits Cranial nerves: Yes CN's II-XII intact bilaterally Extrem General: Yes normal to inspection, Yes no clubbing, cyanosis or edema and Yes no calf tenderness Psych Appearance: grossly normal and well kempt Speech and movement: Normal speech and movement present Office Procedures Spirometry Testing Spirometry Comments: Spirometry done in the office, Dr. Marroquin has the results results scanned to his chart. [id number]- Spirometry Results Reviewed Results Reviewed: spirometry NORMAL Assessment & Plan Assessment & Plan (1) Obesity (BMI 30-39.9): Comment: Discussed about his weight, he is not well motivated to lose weight. Also cannot walk much . Advised him to cut down the use of carbohydrates, and increase roughage in the diet . Code(s): E66.9 - Obesity, unspecified (2) CE (obstructive sleep apnea): Comment: Currently untreated. He lost his machine because of noncompliance. He claims that he sleeps okay. Advised that he should continue to lose weight and also sleep on the side as much as possible. Patient is not interested in getting the CPAP machine again Code(s): G47.33 - Obstructive sleep apnea (adult) (pediatric) (3) COPD (chronic obstructive pulmonary disease): Comment: [id number] COPD is well controlled at this time. It seems to be well controlled and actually the spirometry today is normal. [place] : Flovent-220 2 puffs b.i.d. Incruse Ellipta 1 inhalation daily. Albuterol( Ventolin ) HFA 2 puffs Q 4-6 hours p.r.n.. Code(s): J44.9 - Chronic obstructive pulmonary disease, unspecified (4) Allergic rhinitis: Comment: It is mild, seasonal, Advised to use Claritin 10 mg once a day p.r.n. Code(s): J30.9 - Allergic rhinitis, unspecified Orders: Orders AMB Spirometry Testing Today J44.9 - Chronic obstructive pulmonary disease, unspecified Coding Level of Care Code Est Pt Level 3 (98646) Diagnoses Obesity (BMI 30-39.9) E66.9 CE (obstructive sleep apnea) G47.33 COPD (chronic obstructive pulmonary disease) J44.9 Allergic rhinitis J30.9 CPT Codes Spirometry - CPT: 75277- Spirometry ([id number])
[2023-01-23 11:01] VITALS: BP 102/74; PULSE 82; O2SAT 98; BMI 36.1
== END 2023-01-23 11:34 | disposition home or self-care (01) ==
PROVIDERS: PCP Internal Medicine; Visit Provider Internal Medicine
DX: E66.9 Obesity, unspecified (principal); G47.33 Obstructive sleep apnea (adult) (pediatric); J44.9 Chronic obstructive pulmonary disease, unspecified; J30.9 Allergic rhinitis, unspecified
CPT/HCPCS: 94010; 99213

== ENCOUNTER → 2023-01-23 10:54 | Outpatient (BNVA) | payer OTHER, SELFPAY | PROVIDERS: PCP Internal Medicine; Visit Provider Internal Medicine | DX: Z01.818 Encounter for other preprocedural examination (principal); K86.89 Other specified diseases of pancreas; K21.9 Gastro-esophageal reflux disease without esophagitis; R14.0 Abdominal distension (gaseous); K76.0 Fatty (change of) liver, not elsewhere classified; Z79.899 Other long term (current) drug therapy; J44.9 Chronic obstructive pulmonary disease, unspecified; G47.33 Obstructive sleep apnea (adult) (pediatric); E66.9 Obesity, unspecified; Z68.36 Body mass index [BMI] 36.0-36.9, adult; J30.9 Allergic rhinitis, unspecified | CPT/HCPCS: 94010; 99212 ==

== ENCOUNTER 2023-01-23 11:46 | Outpatient (AMB) | payer OTHER, SELFPAY ==
--- NOTE | 2023-01-23 11:49 | MHC.OFFVIS ---
Intake Vital Signs 01/23/23 11:58 Height 5 ft 5 in Weight 217 lb 6.012 oz BMI 36.2 BP 108/85 Blood Pressure Location Lt brachial Position Sitting Pulse 94 Intake Visit Reasons: Follow up Intake Note: Min presents in the office today in 4 months follow up of GERD and abdominal bloating. CC: He states he continues to have abdominal bloating. He states that GERD is well managed with medication. He also reports he feels that his BMs are small. Pt reports he was recently sick with vertigo and asthma. Denies other GI symptoms. Patient unsure if he is taking Omeprazole and Pantoprazole or only one PPI medication. 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 He continues to feel bloated.? This is the same symptom he has complained about since 2019 and this is failed to resolve with various antibiotic treatment for possible bacterial overgrowth and with simethicone.? Next visit consider if you do an H pylori stool antigen.? We cannot do a breath test because he is on omeprazole 20 mg a day.? In the past he had constipation but this time he denies that he is constipated moving his bowels daily with soft stools.? It is possible that he is having incomplete evacuation does not realize this and this could be contributing to his bloating.? It is also possible that his bloating has something to do with cardiac causes with an element of right-sided heart failure.? I suppose we could also consider food allergy testing going forward. He swears that he went for his labs the day before his US, but they are not found in the chart. He is agreeable to go again. We review the US, but I can not give him a full picture of his liver health w/o the labs.This is especially true as he had a hx of ? mass on a past US that was then thought to be hemangioma, follow-up was recommended with MRI.? However, the patient with 2 frightened of the machine had the MRI since this did not.? This makes it more important to follow him with an alpha-fetoprotein. ROV 6 weeks. (2) Abdominal bloating: ?Code(s): R14.0 - Abdominal distension (gaseous) (3) GERD (gastroesophageal reflux disease): ?Code(s): K21.9 - Gastro-esophageal reflux disease without esophagitis LABS 11/01/22-[address]: Gemini Merritt MD ORDERED: CMP, MG Test Result Flag Refere nce Si te Sodium 140 135-145 mmol/L Potassium 3.7 3.3-5.1 m mol/L C L 10 4 96-108 mmol /L CO2 24 22-29 mmol/L Gap 16 12-20 BUN 27 H 9-16 mg/dL Creat 1.42 H 0 .5-1.4 mg/dL Estimated C rCl 64.8 eGFR (ca lculated from the MDRD study equatio n) and eCrCl (calculated from the Cockcroft-Gau lt equation) are b ased on dif ferent parameters and may not yield comparable results . I f eCrCl result is absurd, please sarah ck patient's height/weight. EGFR 50 NOTE: For Afr ican-Czech ghassan viduals, multiply the result by 1.210. [facility] Aides And Assistants Teacher haylee Kidney Disease : Estimated GFR < 60 mL/min/1.73m2 Severe Kidn ey Disease: Estim ated GFR < 15 mL/m in/1.73m2 Glucos e, Random 117 H 60-115 mg/dL CA 9.5 8.4-10.2 mg/dL Magnesium 1.9 1. 6-2.6 mg/dL Total Bili 0.7 0.0- 1.0 mg/dL AST (GOT) 24 5-37 U /L ALT (GPT) 30 0-40 U/L Protein, Total 7 .4 6.5-8.0 g/ dL Al b 3.8 3.5-5.0 g/dL Alk Phos 52 39-117 U/L 10/03/22-[address]: Gemini Merritt MD ORDERED: Alpha Feto Test Result Flag Refere pallavie Si te AFPTM 2.7 <6.1 ng /mL QU M CORRESPONDENCE On 09/25/22 @ 08:57 Vy Waters Wrote To Per pharmacy medication is covered by insurance but they will order it because they do not have it in stock. On 09/24/22 @ 09:32 Wrote To Vy Waters Creon sent, please [facility] and make sure to be dispense. On 09/12/22 @ 09:29 Vy Waters Wrote To [employer] denied, Creon does not requires PA. Please advise. On 09/11/22 @ 23:01 System Wrote To Workgroup(s) for Response Received TODAY'S VISIT SYRIAC #Vianney Matthews We review the labs that he missed for his ROSE and all seems well. He continues to have bloating and gas although he says that since we started the Creon and the simethicone his symptoms have improved by about 50%. I think because he is a big julio c we need to increase the dose and will have him take 2 caps 4 times of the Creon a day. He is agreeable to this. He continues on his omeprazole with good control of his GERD. His last colonoscopy was in 2012 any received to phone call in a angle issue and he says ?all a understood with the word colonoscopy. ? Obviously he needs to be scheduled for screening and we will get this going. There are no prior problems with anesthesia or sedation. He has COPD that is well controlled he denies cardiac problems. There are no infectious disease problems. There is no known family history of colorectal cancer or polyps. Return office visit in 8 weeks to evaluate his response the Creon of course I will see him after the colonoscopy. [facility] Medical History Throat disorder Bronchitis CHF (congestive heart failure) Afib Allergic rhinitis COPD (chronic obstructive pulmonary disease) CE (obstructive sleep apnea) Obesity (BMI 30-39.9) Hypothyroid Anxiety Palpitation HTN (hypertension) Surgical History History of surgery on arm Hx of eye surgery Hx of colonoscopy Hx of knee surgery Hx of tonsillectomy Family History Family/Other No problems noted. Social History Alcohol intake: never Patient Tobacco Use Status: Never used Tobacco Review of Systems Const Denies fatigue, Denies fever(s), Denies night sweats, Denies poor appetite and Denies weight loss ENT Reports Normal hearing present, Denies dental pain, Denies dysphagia, Denies hearing loss, Denies mouth pain, Denies odynophagia, Denies throat swelling, Denies tongue swelling and Reports other (Dentition adequate) Card Reports no additional complaints Resp Reports no additional complaints GI Denies abdominal pain, Denies melena, Reports bloating, Denies hematochezia, Denies constipation, Reports GI cramping, Denies dysphagia, Denies excessive flatus, Denies early satiety, Reports heartburn, Reports diarrhea, Denies nausea, Denies odynophagia, Denies vomiting and Denies hematemesis Skin/Breast Denies pruritus, Denies lesions, Denies rash and Denies jaundice Neuro Reports Normal hearing present and Denies Abnormal speech present Endo Denies fatigue Aller/Immun Denies throat swelling and Denies tongue swelling Physical Exam Vital Signs: Last Vital Signs Pulse 94 01/23/23 11:58 BP 108/85 01/23/23 11:58 BMI result Body Mass Index 36.2 Const General: cooperative, no acute distress, well developed and well groomed Nutritional Appearance: well nourished and obese morbidly obese Orientation/consciousness: oriented to person, oriented to place and oriented to time Limitations: language barrier and ambulation with cane HEENT Head: Yes normocephalic and Yes atraumatic Eyes General: appearance normal, both eyes and all related structures Pupils: Equal, round and reactive pupils present Neck Neck: Yes normal visual inspection and Yes no lymphadenopathy Thyroid: Thyroid normal Resp Effort & Inspection: normal respiratory effort and able to speak in complete sentences Auscultation: clear to auscultation bilaterally Cardio Rate: regular rate Rhythm: regular rhythm Heart sounds: Normal, physiologic split S2 sound present Peripheral pulses: radial pulses present and posterior tibial pulses present GI Inspection: No distended, Yes Abdominal panniculus present and Yes obesity Palpation (GI): Soft to palpation, nontender, no guarding, not rigid and No hepatosplenomegaly present Percussion: Yes normal to percussion Auscultation: normal bowel sounds Rectal Exam - Male: Yes deferred Skin General skin exam: no rashes or lesions noted, turgor normal, skin not dry, no jaundice, No spider nevi and no striae Rashes: no rashes Nails: normal Neuro General: oriented to person, oriented to place and oriented to time Cranial nerves: Yes Equal, round and reactive pupils present and Yes Normal hearing present Speech: No Abnormal speech present Extrem General: Yes normal to inspection, No clubbing, No cyanosis and No edema Psych Appearance: grossly normal and well kempt Mental Status: mental status grossly normal Speech and movement: Normal speech and movement present Affect: normal affect Attitude: cooperative Thought process: Normal thought process present and not confabulating Thought content: Normal thought content present Insight: Limited insight present (Psych) Judgement: Limited judgement present (Psych) Results Reviewed Results Reviewed: Total Bili 0.7 0.0-1.0 mg/dL AST (GOT) 24 5-37 U/L ALT (GPT) 30 0-40 U/L Protein, Total 7.4 6.5-8.0 g/dL Alb 3.8 3.5-5.0 g/dL Alk Phos 52 39-117 U/L 10/03/22-[address]: Gemini Chavez MD ORDERED: Alpha Feto Test Result Flag Reference Site AFPTM 2.7 Assessment & Plan Assessment & Plan (1) Pancreatic insufficiency: Code(s): K86.89 - Other specified diseases of pancreas Plan: SYRIAC #Vianney Live We review the labs that he missed for his ROSE and all seems well. He continues to have bloating and gas although he says that since we started the Creon and the simethicone his symptoms have improved by about 50%. I think because he is a big julio c we need to increase the dose and will have him take 2 caps 4 times of the Creon a day. He is agreeable to this. He continues on his omeprazole with good control of his GERD. His last colonoscopy was in 2012 any received to phone call in a angle issue and he says ?all a understood with the word colonoscopy. ? Obviously he needs to be scheduled for screening and we will get this going. There are no prior problems with anesthesia or sedation. He has COPD that is well controlled he denies cardiac problems. There are no infectious disease problems. There is no known family history of colorectal cancer or polyps. Return office visit in 8 weeks to evaluate his response the Creon of course I will see him after the colonoscopy. (2) Abdominal bloating: Code(s): R14.0 - Abdominal distension (gaseous) (3) GERD (gastroesophageal reflux disease): Code(s): K21.9 - Gastro-esophageal reflux disease without esophagitis (4) Colon cancer screening: Code(s): Z12.11 - Encounter for screening for malignant neoplasm of colon (5) Pre-op examination: Code(s): Z01.818 - Encounter for other preprocedural examination (6) Hepatic steatosis: Comment: LIVER APPEARS NORMAL ON CAT SCAN 11/2021 SO HE IS REFERRED BACK TO HIS PRIMARY CARE PROVIDER FOR MONITORING OF HIS TRANSAMINASES. 11/2019 hepatic panel shows an elevated total bilirubin of 1.2 direct normal at 0.5, AST/ALT is 29/49 with a normal alk-phos, BNP is elevated at 343, TSH is low at 0.24 with no T4 yet available, autoimmune workup is negative, alpha fetoprotein from 05/2019 was 2.6, he is immune to hepatitis a is screen for hepatitis B and C is negative, HIV is also negative. * CURRENT Laboratory Tests Total Bili 0.7 0.0-1.0 mg/dL AST (GOT) 24 5-37 U/L ALT (GPT) 30 0-40 U/L Protein, Total 7.4 6.5-8.0 g/dL Alb 3.8 3.5-5.0 g/dL Alk Phos 52 39-117 U/L 10/03/22-[address]: Gemini Chavez MD ORDERED: Alpha Feto Test Result Flag Reference Site AFPTM 2.7 ULTRASOUND OF THE ABDOMEN 08/20/22 IMPRESSION: 1. There is generalized increase in hepatic echotexture, consistent with fatty infiltration or hepatocellular disease. Please correlate clinically. No focal hepatic mass or intrahepatic biliary dilatation is seen. 2. A 4 mm nonobstructing right renal calculus is seen. No left renal calculus is seen. No hydronephrosis is noted bilaterally. 3. There are benign, simple bilateral renal cysts, for which no imaging follow-up recommended. 4. Technically limited ultrasound examination of the pancreas and abdominal aorta. Code(s): K76.0 - Fatty (change of) liver, not elsewhere classified Orders: Orders Colonoscopy - GI Use Only 01/23/23 Z12.11 - Encounter for screening for malignant neoplasm of colon Medications: New peg 3350-electrolytes 236-22.74-6.74 -5.86 gram (Golytely) until fecal effluent is clear; do not exceed a total volume of 2,000 mL 240 mL PO Q10M 4,000 mL 0RF 1 day Z12.11 - Encounter for screening for malignant neoplasm of colon Changed From mjwyec-lzwwhczu-obzskrs 36,000-114,000- 180,000 unit administer with meals and/or snacks 1 cap PO QID 30 days 120 caps 3RF K86.89 - Other specified diseases of pancreas To emsmnj-amzeyfih-irhcipi 36,000-114,000- 180,000 unit (Creon) administer with meals and/or snacks 2 caps PO QID 240 caps 3RF 30 days K86.89 - Other specified diseases of pancreas Refilled simethicone after meals 180 mg PO QID 120 caps 6RF 30 days R14.0 - Abdominal distension (gaseous) Coding Level of Care Code Est Pt Level 4 (55325) Diagnoses Pancreatic insufficiency K86.89 Abdominal bloating R14.0 GERD (gastroesophageal reflux disease) K21.9 Colon cancer screening Z12.11 Pre-op examination Z01.818 Hepatic steatosis K76.0
[2023-01-23 11:58] VITALS: BP 108/85; PULSE 94; BMI 36.2
== END 2023-01-23 12:39 | disposition home or self-care (01) ==
PROVIDERS: PCP Internal Medicine; Visit Provider Nurse Practitioner
DX: K86.89 Other specified diseases of pancreas (principal); R14.0 Abdominal distension (gaseous); K21.9 Gastro-esophageal reflux disease without esophagitis; Z12.11 Encounter for screening for malignant neoplasm of colon; Z01.818 Encounter for other preprocedural examination; K76.0 Fatty (change of) liver, not elsewhere classified
CPT/HCPCS: 99214

== ENCOUNTER 2023-02-12 15:39 | Outpatient (REF) | payer OTHER, SELFPAY ==
[2023-02-12 17:53] LABS: Alanine Aminotransferase 24 U/L (0-40); Albumin Level 4.2 g/dL (3.5-5.0); Alkaline Phosphatase 63 U/L (39-117); Anion Gap 15 (12-20); Aspartate Amino Transferase 22 U/L (5-37); Bilirubin Total 0.8 mg/dL (0.0-1.0); Blood Urea Nitrogen 17 mg/dL (9-16); Calcium 9.7 mg/dL (8.4-10.2); Carbon Dioxide 28 mmol/L (22-29); Chloride 102 mmol/L (96-108); Estimated Glomerular Filt Rate > 60; Glucose Random 100 mg/dL (60-115); Potassium 4.1 mmol/L (3.3-5.1); Sodium 141 mmol/L (135-145); Total Protein 7.7 g/dL (6.5-8.0)
== END 2023-02-12 15:40 | disposition home or self-care (01) ==
LOC: HO.HHCL 15:39
PROVIDERS: Visit Provider Student in an Organized Health Care Education/Training Program
DX: I10 Essential (primary) hypertension (principal)
CPT/HCPCS: 36415; 80053

== ENCOUNTER 2023-03-05 11:46 | Outpatient (REF) | payer OTHER, SELFPAY ==
[2023-03-05 14:20] LABS: TSH reflex Free T4 0.19 uIU/mL (0.32-4.0)
[2023-03-05 14:50] LABS: Free T4 (Free Thyroxine) 1.26 ng/dL (0.71-1.85)
== END 2023-03-05 11:47 | disposition home or self-care (01) ==
LOC: HO.HHCL 11:46
PROVIDERS: Visit Provider Internal Medicine
DX: E03.9 Hypothyroidism, unspecified (principal)
CPT/HCPCS: 36415; 84439; 84443

== ENCOUNTER 2023-03-20 13:59 | Outpatient (AMB) | payer OTHER, SELFPAY ==
--- NOTE | 2023-03-20 14:45 | MHC.OFFVIS ---
Intake Vital Signs 03/20/23 14:48 Height 5 ft 5 in Weight 227 lb BMI 37.8 BP 110/72 Blood Pressure Location Lt brachial Position Sitting Pulse 84 Pulse Source Pulse Oximeter Pulse Oximetry (%) 99 Oxygen Delivery Method Room Air Intake Visit Reasons: increased shortness of breath Intake Note: pt is here for follow up and states he is feeling okay, but he states he has been having some shortness of breath. Franchise Sales Director Required: Yes Franchise Sales Director Name: [id number] flillipe Allergies Iodinated Contrast Media [CONTRAST, IV] Allergy (Unknown, Verified 03/20/23 15:06) HIVES kiwi [KIWI] Allergy (Unknown, Verified 03/20/23 15:06) THROAT SWELLING Medication List - Last Reconciled 03/20/23 by Curt Marroquin MD acetaminophen 500 mg PO Q6H PRN albuterol sulfate mg inhalation albuterol sulfate 90 mcg/actuation 2 puffs inhalation Q6H PRN apixaban 5 mg PO BID cholecalciferol (vitamin D3) 50 mcg PO DAILY clonazepam 1 mg PO BID PRN furosemide 40 mg PO DAILY hydrochlorothiazide 12.5 mg PO DAILY hydroxyzine pamoate 25 mg PO BID levothyroxine 100 mcg PO DAILY hrspmw-dabjfqje-mnychyj 36,000-114,000- 180,000 unit (Creon) 2 caps PO QID 30 days lisinopril 40 mg PO DAILY loratadine 10 mg PO DAILY meclizine 25 mg PO TID PRN metoprolol succinate ER 200 mg PO DAILY omeprazole 20 mg PO DAILY 30 days peg 3350-electrolytes 236-22.74-6.74 -5.86 gram (Golytely) 240 mL PO Q10M 1 day rosuvastatin 40 mg PO DAILY simethicone 180 mg PO QID 30 days umeclidinium 62.5 mcg/actuation 1 inh inhalation DAILY vitamin E (dl, acetate) 180 mg PO BID zolpidem 10 mg PO BEDTIME PRN Do you need a note to return to daycare/school/sports/work: No HPI increased shortness of breath HPI Details This 67 years old gentleman is a case of gross obesity and obstructive sleep apnea but has not been able to use CPAP. He remains lightheaded and due to chronic vertigo problem, and his gait is somewhat unstable. He is known to have chronic obstructive/restrictive pulmonary disorder. Currently using Incruse Ellipta once a day and Flovent-to 22 puffs b.i.d.. He claims that he is more short of breath than before, with increased cough and some wheezing. Denies any respiratory infection. [facility] Medical History Throat disorder Bronchitis CHF (congestive heart failure) Afib Allergic rhinitis COPD (chronic obstructive pulmonary disease) CE (obstructive sleep apnea) Obesity (BMI 30-39.9) Hypothyroid Anxiety Palpitation HTN (hypertension) Surgical History History of surgery on arm Hx of eye surgery Hx of colonoscopy Hx of knee surgery Hx of tonsillectomy Family History Family/Other No problems noted. Social History Alcohol intake: never Patient Tobacco Use Status: Never used Tobacco Review of Systems Const All systems reviewed & are unremarkable except as noted in HPI and below Eyes Reports no additional complaints ENT Reports nasal congestion (Mild intermittent) Card Denies chest pain, Reports irregular heart rhythm (Atrial fib) and Denies leg edema Resp Reports as per HPI GI Reports no additional complaints Reports no additional complaints Musc Reports abnormal gait (Uses cane), Reports back pain and Reports arthralgias Skin/Breast Reports system reviewed and no additional complaints, except as documented Neuro Reports no additional complaints and Reports abnormal gait (Uses cane) Psych Reports no additional complaints Physical Exam Vital Signs: Last Vital Signs Pulse 84 03/20/23 14:48 BP 110/72 03/20/23 14:48 Pulse Ox 99 03/20/23 14:48 Oxygen Delivery Method Room Air 03/20/23 14:48 BMI result Body Mass Index 37.8 Const General: comfortable, no acute distress, alert and awake Orientation/consciousness: patient oriented x3 HEENT Head: Yes normal to inspection General nose exam: No nasal polyps present and No nasal discharge present Face and sinus: Yes sinuses nontender Mouth: oropharynx normal Throat: Yes posterior oropharynx normal Eyes General: appearance normal, both eyes and all related structures Neck Neck: Yes normal visual inspection, Yes no lymphadenopathy, Yes trachea midline and Yes no JVD Thyroid: Thyroid normal Chest Chest palpation & inspection: normal inspection of the chest, normal palpation of entire chest wall and no tenderness Resp Other: Percussion note is resonant, breath sounds are distant with prolonged expiratory phase. No wheezes or rhonchi are heard. But he is not able to take deep breaths. Cardio Palpation: normal PMI Rate: regular rate Rhythm: regular rhythm Heart sounds: no gallops and no murmurs GI Palpation (GI): Soft to palpation, nontender, No hepatosplenomegaly present and no masses Auscultation: normal bowel sounds Back/Spine/Pelvis Thoracic/Lumbar Spine: thoracic and lumbar spine normal to inspection and thoraco-lumbar ROM limited Skin General skin exam: no rashes or lesions noted Neuro General: patient oriented x3 and no focal motor deficits Cranial nerves: Yes CN's II-XII intact bilaterally Extrem General: Yes normal to inspection, Yes no clubbing, cyanosis or edema and Yes no calf tenderness Psych Appearance: grossly normal and well kempt Speech and movement: Normal speech and movement present Assessment & Plan Assessment & Plan (1) COPD (chronic obstructive pulmonary disease): Comment: Mvkj-ku-renmcvjo COPD . Patient complains of increased shortness of breath on minimal exertion. This seems to be secondary to his obesity and also general deconditioning. TX: Continue Incruse Ellipta 1 inhalation daily. Will replace Flovent with Advair 250-50 1 inhalation b.i.d. Albuterol( Ventolin ) HFA 2 puffs Q 4-6 hours p.r.n.. Code(s): J44.9 - Chronic obstructive pulmonary disease, unspecified (2) Obesity (BMI 30-39.9): Comment: Discussed about his weight, he is not well motivated to lose weight. Also cannot walk much . Advised him to cut down the use of carbohydrates, and increase roughage in the diet . Code(s): E66.9 - Obesity, unspecified (3) CE (obstructive sleep apnea): Comment: Currently untreated. He lost his machine because of noncompliance. He claims that he sleeps okay. Advised that he should continue to lose weight and also sleep on the side as much as possible. *Patient is not interested in getting the CPAP machine again Code(s): G47.33 - Obstructive sleep apnea (adult) (pediatric) (4) Allergic rhinitis: Comment: It is mild, seasonal, Advised to use Claritin 10 mg once a day p.r.n. Code(s): J30.9 - Allergic rhinitis, unspecified Coding Level of Care Code Est Pt Level 3 (41462) Diagnoses COPD (chronic obstructive pulmonary disease) J44.9 Obesity (BMI 30-39.9) E66.9 CE (obstructive sleep apnea) G47.33 Allergic rhinitis J30.9
[2023-03-20 14:48] VITALS: BP 110/72; PULSE 84; O2SAT 99; BMI 37.8
== END 2023-03-20 15:07 | disposition home or self-care (01) ==
PROVIDERS: PCP Internal Medicine; Visit Provider Internal Medicine
DX: J44.9 Chronic obstructive pulmonary disease, unspecified (principal); E66.9 Obesity, unspecified; G47.33 Obstructive sleep apnea (adult) (pediatric); J30.9 Allergic rhinitis, unspecified
CPT/HCPCS: 99213

== ENCOUNTER → 2023-03-20 13:59 | Outpatient (BNVA) | payer OTHER, SELFPAY | PROVIDERS: PCP Internal Medicine; Visit Provider Internal Medicine | DX: J44.9 Chronic obstructive pulmonary disease, unspecified (principal); J30.9 Allergic rhinitis, unspecified; E66.9 Obesity, unspecified; G47.33 Obstructive sleep apnea (adult) (pediatric); Z68.37 Body mass index [BMI] 37.0-37.9, adult | CPT/HCPCS: 99212 ==

== ENCOUNTER 2023-04-01 09:58 | Day surgery (SDC) | payer OTHER, SELFPAY ==
[2023-03-27 16:17] VITALS: BMI 36.8
--- NOTE | 2023-03-31 08:53 | P.CONAN_ITS ---
Documented by User: Masha Dixon NP 03/31/23 08:56 HPI - Anesthesia Eval Consult details Narrative: 67yo M for Upper Endoscopy Eliquis for afib 02/2023 cardiac cleared for eye surgery under MAC PMFSH Active Problems Active Problems: All Active Problems (Updated 03/27/23 @ 16:27 by Melanie Flores, RN) Pre-op examination (Acute) Colon cancer screening (Acute) Pancreatic insufficiency (Acute) Abdominal bloating (Acute) Hepatic steatosis (Acute) Liver lesion (Acute) GERD (gastroesophageal reflux disease) (Acute) Throat disorder (Acute) Bronchitis (Acute) Allergic rhinitis (Acute) COPD (chronic obstructive pulmonary disease) (Acute) CE (obstructive sleep apnea) (Acute) Obesity (BMI 30-39.9) (Acute) Past Medical History Medical History Hoarseness Dysphagia Throat disorder Bronchitis CHF (congestive heart failure) Afib Allergic rhinitis COPD (chronic obstructive pulmonary disease) CE (obstructive sleep apnea) Obesity (BMI 30-39.9) Hypothyroid Anxiety Palpitation HTN (hypertension) Family History Family History Family/Other No problems noted. Surgical History Surgical History Hx of umbilical hernia repair History of surgery on arm Hx of eye surgery Hx of colonoscopy Hx of knee surgery Hx of tonsillectomy Social History Alcohol intake: never Patient Tobacco Use Status: Never used Tobacco Use of substances other than those prescribed or required for medical reasons: Yes Advance Directives: No Advance Directives Information Provided: Yes Meds Allergies Allergy/AdvReac Type Severity Reaction Status Date / Time Iodinated Contrast Media Allergy Unknown HIVES Verified 03/20/23 15:06 [CONTRAST, IV] kiwi [KIWI] Allergy Unknown THROAT Verified 03/20/23 15:06 SWELLING Home Medications Medication Instructions Recorded Confirmed Last Taken Type acetaminophen 500 mg tablet 500 mg PO Q6H PRN Pain 05/24/20 03/27/23 Unknown History apixaban 5 mg tablet 5 mg PO BID 05/24/20 03/27/23 Unknown History cholecalciferol (vitamin D3) 50 50 mcg PO DAILY 05/24/20 03/27/23 Unknown History mcg (2,000 unit) tablet clonazepam 1 mg tablet 1 mg PO BID PRN Anxiety 05/24/20 04/01/23 04/01/23 06:00 History 1 hydroxyzine pamoate 25 mg capsule 25 mg PO BID 05/24/20 03/27/23 Unknown History levothyroxine 100 mcg tablet 100 mcg PO DAILY 05/24/20 03/27/23 Unknown History lisinopril 40 mg tablet 40 mg PO DAILY 05/24/20 03/27/23 Unknown History loratadine 10 mg tablet 10 mg PO DAILY 05/24/20 03/27/23 Unknown History metoprolol succinate 200 mg 200 mg PO DAILY 05/24/20 04/01/23 04/01/23 06:00 History tablet,extended release 24 hr 200 rosuvastatin 40 mg tablet 40 mg PO DAILY 05/24/20 03/27/23 Unknown History umeclidinium 62.5 mcg/actuation 1 inh inhalation DAILY 05/24/20 03/27/23 Unknown History blister powder for inhalation zolpidem 10 mg tablet 10 mg PO BEDTIME PRN Insomnia 05/24/20 03/27/23 Unknown History albuterol sulfate 2.5 mg/3 mL mg inhalation 03/20/21 03/20/21 Unknown History (0.083 %) solution for nebulization hydrochlorothiazide 12.5 mg tablet 12.5 mg PO DAILY 10/19/21 03/27/23 Unknown History furosemide 40 mg tablet 40 mg PO DAILY 10/03/22 03/27/23 Unknown History albuterol sulfate 90 mcg/actuation 2 puff inhalation Q6H PRN 01/23/23 03/27/23 Unknown History aerosol inhaler Shortness Of Breath pantoprazole 40 mg tablet,delayed 40 mg PO DAILY 03/27/23 03/27/23 Unknown History release Exam Height,Weight and Vital Signs: Height 5 ft 5 in Weight 100.244 kg Pertinent Lab Results Pertinent Lab Results: Laboratory Tests 11/01/22 02/12/23 22:48 15:42 WBC 7.4 Hgb 14.1 Hct 41.3 L Plt Count 230 Sodium 141 Potassium 4.1 Chloride 102 Carbon Dioxide 28 BUN 17 H Creatinine 1.05 Narrative Narrative: EKG 10/2022 Vent. Rate : 084 BPM Atrial Rate : 000 BPM P-R Int : 000 ms QRS Dur : 092 ms QT Int : 374 ms P-R-T Axes : 000 001 005 degrees QTc Int : 441 ms Atrial fibrillation Abnormal ECG When compared with ECG of 11-FEB-2022 09:24, No significant change was found Assessment and Plan Assessment Anesthesia Assessment: Chart Reviewed Documented by User: Veronica Tapia MD 04/01/23 11:05 [facility] Past Medical History Medical History Hoarseness Dysphagia Throat disorder Bronchitis CHF (congestive heart failure) Afib Allergic rhinitis COPD (chronic obstructive pulmonary disease) CE (obstructive sleep apnea) Obesity (BMI 30-39.9) Hypothyroid Anxiety Palpitation HTN (hypertension) Family History Family History Family/Other No problems noted. Surgical History Surgical History Hx of umbilical hernia repair History of surgery on arm Hx of eye surgery Hx of colonoscopy Hx of knee surgery Hx of tonsillectomy History of Problems with Anesthesia: No Social History Alcohol intake: never Patient Tobacco Use Status: Never used Tobacco Use of substances other than those prescribed or required for medical reasons: Yes Advance Directives: No Advance Directives Information Provided: Yes Meds Allergies Allergy/AdvReac Type Severity Reaction Status Date / Time Iodinated Contrast Media Allergy Unknown HIVES Verified 03/20/23 15:06 [CONTRAST, IV] kiwi [KIWI] Allergy Unknown THROAT Verified 03/20/23 15:06 SWELLING Home Medications Medication Instructions Recorded Confirmed Last Taken Type acetaminophen 500 mg tablet 500 mg PO Q6H PRN Pain 05/24/20 03/27/23 Unknown History apixaban 5 mg tablet 5 mg PO BID 05/24/20 03/27/23 Unknown History cholecalciferol (vitamin D3) 50 50 mcg PO DAILY 05/24/20 03/27/23 Unknown History mcg (2,000 unit) tablet clonazepam 1 mg tablet 1 mg PO BID PRN Anxiety 05/24/20 04/01/23 04/01/23 06:00 History 1 hydroxyzine pamoate 25 mg capsule 25 mg PO BID 05/24/20 03/27/23 Unknown History levothyroxine 100 mcg tablet 100 mcg PO DAILY 05/24/20 03/27/23 Unknown History lisinopril 40 mg tablet 40 mg PO DAILY 05/24/20 03/27/23 Unknown History loratadine 10 mg tablet 10 mg PO DAILY 05/24/20 03/27/23 Unknown History metoprolol succinate 200 mg 200 mg PO DAILY 05/24/20 04/01/23 04/01/23 06:00 History tablet,extended release 24 hr 200 rosuvastatin 40 mg tablet 40 mg PO DAILY 05/24/20 03/27/23 Unknown History umeclidinium 62.5 mcg/actuation 1 inh inhalation DAILY 05/24/20 03/27/23 Unknown History blister powder for inhalation zolpidem 10 mg tablet 10 mg PO BEDTIME PRN Insomnia 05/24/20 03/27/23 Unknown History albuterol sulfate 2.5 mg/3 mL mg inhalation 03/20/21 03/20/21 Unknown History (0.083 %) solution for nebulization hydrochlorothiazide 12.5 mg tablet 12.5 mg PO DAILY 10/19/21 03/27/23 Unknown History furosemide 40 mg tablet 40 mg PO DAILY 10/03/22 03/27/23 Unknown History albuterol sulfate 90 mcg/actuation 2 puff inhalation Q6H PRN 01/23/23 03/27/23 Unknown History aerosol inhaler Shortness Of Breath pantoprazole 40 mg tablet,delayed 40 mg PO DAILY 03/27/23 03/27/23 Unknown History release Exam Airway Mallampati Class: III (edentulous upper) TM Dist: >3cm Neck ROM: Full Loose/Missing/Broken Teeth: Yes, Upper and Lower Heart: IRREG IRREGULAR RHYTHM Lungs: CTA Assessment and Plan Assessment Anesthesia Assessment: Anesthesia Plan Discussed Final Anesthetic Review History of Problems with Anesthesia: No NPO: Yes ASA Class: III Final Preanesthetic Review: Meds/Allgs Chart Reviewed, Consent Obtained/Reviewed and Anes Risks/Benef Reviewed Patient Risk: Intermediate Procedure Risk: Intermediate Anesthetic Plan Anesthetic Plan: MAC: Disposition: Standard PACU
[2023-04-01 10:41] VITALS: BP 148/106; PULSE 72; RESP 18; TEMP 36.6; O2SAT 99; BMI 36.6
--- NOTE | 2023-04-01 10:44 | MHC.SHP ---
Pre-Procedural Eval Section A Date of Service: 04/01/23 The patient is an INPATIENT: No Changes since office visit: No Cold of Flu in the past 2 weeks, No New Medical Problems, No Changes in Medication and No Patient answered all questions The History & Physical has been completed within 30 days and I have reviewed it.: Yes Section B Chief Complaint: Encounter for screening for upper gastrointestinal Allergies: Allergies Allergy/AdvReac Type Severity Reaction Status Date / Time Iodinated Contrast Media Allergy Unknown HIVES Verified 03/20/23 15:06 [CONTRAST, IV] kiwi [KIWI] Allergy Unknown THROAT Verified 03/20/23 15:06 SWELLING Plan I have reviewed the history and physical and performed a pertinent physical examination on my patient. No changes have occurred unless specified. Time Spent With Patient Time: Total time managing care of this patient today ____ minutes.
[2023-04-01 11:13] VITALS: BP 124/86; PULSE 87; RESP 18; TEMP 36.6; O2SAT 100
[2023-04-01 11:27] VITALS: BP 115/83; PULSE 68; RESP 16; O2SAT 97
[2023-04-01 11:40] VITALS: BP 134/86; PULSE 79; RESP 16; TEMP 36.3; O2SAT 99
--- NOTE | 2023-04-01 14:16 | OP_ITS ---
DATE OF SERVICE: 04/01/2023 SURGEON: Larry Carnes MD INDICATIONS: Dysphagia and abnormal barium swallow. PREOPERATIVE DIAGNOSIS: POSTOPERATIVE DIAGNOSIS: PROCEDURE PERFORMED: Upper endoscopy with biopsy. ESTIMATED BLOOD LOSS: COMPLICATIONS: ANESTHESIA: Monitored anesthesia care. ASSISTANTS: SPECIMENS: DESCRIPTION OF PROCEDURE: A history and physical was performed. The risks and benefits of the procedure were explained to the patient. Informed consent was obtained. The patient was placed in the left lateral decubitus position. The Olympus video gastroscope was introduced into the esophagus, stomach, and duodenum. Examination was performed. The scope was removed. He tolerated the procedure well and was returned to the recovery area in stable condition. FINDINGS: Esophagus: The esophagus was normal. There was an irregular EG junction, which was biopsied. Stomach: The stomach showed no evidence of masses or ulcers. The antrum was slightly nodular. This was biopsied. Duodenum: The bulb and 2nd portion were normal. IMPRESSION: Gastroesophageal reflux disease. RECOMMENDATION: Follow up the biopsy results. MD ERVIN Ny/JESUSL / [id number]
== END 2023-04-01 12:54 | disposition home or self-care (01) ==
PROVIDERS: PCP Internal Medicine; Visit Provider Internal Medicine Gastroenterology
PROC: 0DJ08ZZ Inspection of Upper Intestinal Tract, Via Natural or Artificial Opening Endoscopic (ICD-10-PCS; CPT 43235; principal; 2023-04-01 11:30)
DX: K21.9 Gastro-esophageal reflux disease without esophagitis (principal); R13.10 Dysphagia, unspecified; K22.89 Other specified disease of esophagus; I11.0 Hypertensive heart disease with heart failure; I50.9 Heart failure, unspecified; I48.91 Unspecified atrial fibrillation; K76.0 Fatty (change of) liver, not elsewhere classified; J44.9 Chronic obstructive pulmonary disease, unspecified; G47.33 Obstructive sleep apnea (adult) (pediatric); K86.89 Other specified diseases of pancreas; Z79.899 Other long term (current) drug therapy; Z79.01 Long term (current) use of anticoagulants
CPT/HCPCS: 43239; 88305; 88342; J2704

== ENCOUNTER 2023-04-07 09:03 | Emergency (ER) | payer OTHER, SELFPAY ==
[2023-04-07 09:33] VITALS: BP 144/83; PULSE 78; RESP 18; TEMP 36.2; O2SAT 97; BMI 37.9
--- NOTE | 2023-04-07 09:59 | ED_ITS ---
HPI - General Adult General Chief complaint: General Medical Stated complaint: Allergic reaction Time Seen by Provider: 04/07/23 09:55 Source: patient Mode of arrival: ambulatory Limitations: no limitations History of Present Illness HPI narrative: 67-year-old male history of hepatic steatosis liver lesion, GERD, throat disorder COPD, CE and obesity presenting with complaints throat feels like it is swollen, and his face is also swollen this has been going on x2 days, patient reports he has a known history to allergic to kiwi however he has not eaten kiwi, this started after he ate bread with raisins he does not know that was cross contaminated. He reports swelling to face was worse yesterday has improved today but he still feels like his throat was closing. No history of anaphylaxis in the past. He denies chest pain, shortness of breath, nausea, vomiting, abdominal pain, diarrhea Related Data Home Medications Medication Instructions Recorded Confirmed acetaminophen 500 mg tablet 500 mg PO Q6H PRN Pain 05/24/20 03/27/23 apixaban 5 mg tablet 5 mg PO BID 05/24/20 03/27/23 cholecalciferol (vitamin D3) 50 50 mcg PO DAILY 05/24/20 03/27/23 mcg (2,000 unit) tablet clonazepam 1 mg tablet 1 mg PO BID PRN Anxiety 05/24/20 04/01/23 hydroxyzine pamoate 25 mg capsule 25 mg PO BID 05/24/20 03/27/23 levothyroxine 100 mcg tablet 100 mcg PO DAILY 05/24/20 03/27/23 lisinopril 40 mg tablet 40 mg PO DAILY 05/24/20 03/27/23 loratadine 10 mg tablet 10 mg PO DAILY 05/24/20 03/27/23 metoprolol succinate 200 mg 200 mg PO DAILY 05/24/20 04/01/23 tablet,extended release 24 hr rosuvastatin 40 mg tablet 40 mg PO DAILY 05/24/20 03/27/23 umeclidinium 62.5 mcg/actuation 1 inh inhalation DAILY 05/24/20 03/27/23 blister powder for inhalation zolpidem 10 mg tablet 10 mg PO BEDTIME PRN Insomnia 05/24/20 03/27/23 albuterol sulfate 2.5 mg/3 mL mg inhalation 03/20/21 03/20/21 (0.083 %) solution for nebulization hydrochlorothiazide 12.5 mg tablet 12.5 mg PO DAILY 10/19/21 03/27/23 furosemide 40 mg tablet 40 mg PO DAILY 10/03/22 03/27/23 albuterol sulfate 90 mcg/actuation 2 puff inhalation Q6H PRN 01/23/23 03/27/23 aerosol inhaler Shortness Of Breath pantoprazole 40 mg tablet,delayed 40 mg PO DAILY 03/27/23 03/27/23 release Previous Rx's Medication Instructions Recorded vitamin E (dl, acetate) 180 mg 180 mg PO BID #180 caps 01/01/22 (400 unit) capsule meclizine 25 mg tablet 25 mg PO TID PRN dizziness #20 tabs 11/02/22 [id number] 2 cap PO QID 30 days #240 caps 01/23/23 36,000-114,000-180,000 unit capsule,delay rel (Creon) peg 3350-electrolytes 236 240 ml PO Q10M 1 day #4,000 mL 01/23/23 gram-22.74 gram-6.74 gram-5.86 gram solution (Golytely) simethicone 180 mg capsule 180 mg PO QID 30 days #120 caps 01/23/23 diphenhydramine HCl 25 mg capsule 25 mg PO TID PRN allergic reaction 04/07/23 (Benadryl) #20 caps epinephrine 0.3 mg/0.3 mL 0.3 mg (0.3 mL) IM Q4H PRN 04/07/23 injection, auto-injector (EpiPen anaphylaxis #2 ea 2-Blaise) prednisone 20 mg tablet 40 mg (2 x 20 mg) PO DAILY 5 days 04/07/23 #10 tabs Allergies Allergy/AdvReac Type Severity Reaction Status Date / Time Iodinated Contrast Media Allergy Unknown HIVES Verified 03/20/23 15:06 [CONTRAST, IV] kiwi [KIWI] Allergy Unknown THROAT Verified 03/20/23 15:06 SWELLING Review of Systems Review of Systems: Constitutional : No Weight loss, No Fever, No Chills, No Fatigue, No Malaise ENT/Mouth : No sore throat, No Rhinorrhea, + swelling to throat Eyes: No Eye Pain, No Swelling, No Redness Cardiovascular : No Chest Pain, No SOB, No Dyspnea on Exertion, No Orthopnea, No Edema, No Palpitations Respiratory : No Cough, No Sputum, No Wheezing Gastrointestinal : No Nausea, No Vomiting, No Diarrhea, No Constipation, No abdominal Pain, No Hematochezia, No Melena Genitourinary : No Dysuria, No Urinary Frequency, No Hematuria, Musculoskeletal : No joint pain, No Myalgias, No Joint Swelling Skin : No Skin Lesions, No rash Neuro : No Weakness, No Numbness, No Dizziness, No Headache Psych : No Anxiety/Panic, No Depression All other systems reviewed and are negative Yes all other systems are reviewed and are negative [facility] Past Medical History Attestation statement: The following information was validated with the patient. Source: old records reviewed and nursing notes reviewed Medical History Hoarseness Dysphagia Throat disorder Bronchitis CHF (congestive heart failure) Afib Allergic rhinitis COPD (chronic obstructive pulmonary disease) CE (obstructive sleep apnea) Obesity (BMI 30-39.9) Hypothyroid Anxiety Palpitation HTN (hypertension) Surgical History Hx of umbilical hernia repair History of surgery on arm Hx of eye surgery Hx of colonoscopy Hx of knee surgery Hx of tonsillectomy Family History Family History Family/Other No problems noted. Social History Alcohol intake: never Patient Tobacco Use Status: Never used Tobacco Advance Directives: No Advance Directives Information Provided: Yes Physical Exam ED Vital Signs: Vital Signs - 24 hr 04/07/23 09:33 Temperature 97.1 F Pulse Rate 78 Respiratory Rate 18 Blood Pressure 144/83 H Pulse Oximetry 97 Oxygen Delivery Method Room Air BMI result Body Mass Index 37.9 vss Appearance: Alert.? Oriented X3.? No acute distress.? Head: Normocephalic, atraumatic, no step-offs or deformities Eyes: Pupils equal, round and reactive to light.? ENT: Pharynx with slight erythema, no evident edema, patient is speaking in full sentences controlling secretions well. Neck: Normal inspection.? Neck supple.? CVS: Normal heart rate and rhythm.? Pulses normal.? Respiratory: No respiratory distress.? Breath sounds normal.? No stridor Abdomen: Soft and nontender.? Skin: Skin warm and dry.? Normal skin color.? Normal skin turgor.? Extremities: No lower extremity edema.? No calf ttp. 5/5 strength to bilateral upper and lower extremities Neuro: Oriented X 3.? No motor deficit.? No sensory deficit. CN 2-12 intact Course Reevaluation(s) Reevaluation #1: Patient feeling much better. Patient is speaking full sentences controlling secretions well tolerating p.o.. Educated patient on diagnosis and treatment plan, answered all question, patient verbalizes understanding. At this time patient will be discharged home, advised to return with new or worsening symptoms. Educated on worrisome signs and symptoms and when to return. At this time I feel comfortable discharge home. Prior to discharge I did have a long conversation with patient about proper use of an EpiPen. I do not appreciate any edema airway, face, lips, hard palate, uvula at time of discharge. Patient well-appearing saturating well on room air Time: 12:01 Medications Administered Discontinued Medications Generic Name Dose Route Start Last Admin Trade Name Keke PRN Reason Stop Dose Admin Dexamethasone Sodium Phosphate 10 mg 04/07/23 10:06 04/07/23 10:35 Dexamethasone Sod Phosphate 10 Mg/Ml Vial IVPUSH 04/07/23 10:07 10 mg ONCE ONE Administration Diphenhydramine HCl 25 mg 04/07/23 10:06 04/07/23 10:33 Diphenhydramine Hcl 50 Mg/Ml Vial IVPUSH 04/07/23 10:07 25 mg ONCE ONE Administration Medical Decision Making Medical Decision Making [facility] Narrative: 1001 67-year-old male presents with complaints of feeling like his face and throat are swelling after eating bread and raisins yesterday. Known history of kiwi allergy Physical exam benign This is likely allergic reaction. Unlikely anaphylaxis, threat to airway. Less likely angioedema Plan will give Kathy Hearn Differential Diagnosis Differential Diagnoses: The differential diagnosis associated with the presentation includes This is likely allergic reaction. Unlikely anaphylaxis, threat to airway. Less likely angioedema Admission/Observation Consideration of admission/observation: Escalation of care including admission/observation considered unlikely Tests considered The following testing was considered but not selected: Considered laboratory studies which would likely show eosinophilic predominance from allergic reaction, would not provide much more information that would change treatment. No indication Prescription Management I considered prescription management with: Other (Prednisone, Benadryl and epi pens has been educated on proper use of EpiPen) Chronic Conditions Patient?s care impacted by: Other (CE, obesity, copd, gerd ) Critical Care Time Critical Care Time Critical Care Time: No Discharge Plan Discharge Clinical Impression: Allergic reaction Patient Disposition: Home, Self-Care Instructions: General Allergic Reaction (ED), Allergy Testing (ED) Additional Instructions: Take your medications as prescribed. If you were prescribed antibiotics today, it is important that you take your medication to their entirety, do not skip any doses, do not finish them early. Follow-up with your primary care provider this week. You may want to follow up with Allergy doctor. Return to the emergency department with new or worsening symptoms. Such as fevers, chills, chest pain, shortness of breath, nausea, vomiting, dizziness, headache, vision changes, lethargy In case of emergency call 911 An EpiPen has been sent to your pharmacy, please only uses in case of severe emergency if you feel like you can not speak, throat is closing or you cannot breathe. Inject this anterior outer thigh, follow instructions on packaging, you can also ask Pharmacy for a demonstration pen. If you use an EpiPen you should seek medical attention immediately after call 911. [place] william medicamentos seg?n lo recetado. Si hoy te recetaron antibi?ticos, es importante que tomes tu medicaci?n en shields totalidad, no te saltes ninguna dosis, no las termines antes de tiempo. Tamiko un seguimiento con shields proveedor de atenci?n primaria esta semana. Es posible que desee realizar un seguimiento con un m?dico especialista en alergias. Regrese al departamento de emergencias si los s?ntomas son nuevos o empeoran. Felda fiebre, escalofr?os, dolor de pecho, dificultad para respirar, n?useas, v?mitos, mareos, dolor de gustavo, cambios en la visi?n, letargo. En palmer de emergencia llame al . Se felix enviado un EpiPen a shields farmacia; ?selo solo en palmer de emergencia grave si siente que no puede hablar, se le leda la garganta o no puede respirar. Inyecte esta parte anterior externa del muslo, siga las instrucciones del paquete, tambi?n puede solicitar en la farmacia alison pluma de demostraci?n. Si usa un EpiPen, debe buscar atenci?n m?dica inmediatamente despu?s de llamar al . Prescriptions: New diphenhydramine HCl [Benadryl] 25 mg capsule 25 mg PO TID PRN (Reason: allergic reaction) Qty: 20 0RF prednisone 20 mg tablet 40 mg PO DAILY 5 Days Qty: 10 0RF epinephrine [EpiPen 2-Blaise] 0.3 mg/0.3 mL auto-injector 0.3 mg IM Q4H PRN (Reason: anaphylaxis) Qty: 2 0RF No Action vitamin E (dl, acetate) 180 mg (400 unit) capsule 180 mg PO BID Qty: 180 1RF meclizine 25 mg tablet 25 mg PO TID PRN (Reason: dizziness) Qty: 20 0RF pantoprazole 40 mg tablet,delayed release (DR/EC) 40 mg PO DAILY loratadine 10 mg tablet 10 mg PO DAILY zolpidem 10 mg tablet 10 mg PO BEDTIME PRN (Reason: Insomnia) hydroxyzine pamoate 25 mg capsule 25 mg PO BID cholecalciferol (vitamin D3) 50 mcg (2,000 unit) tablet 50 mcg PO DAILY lisinopril 40 mg tablet 40 mg PO DAILY Eliquis 5 mg tablet 5 mg PO BID Incruse Ellipta 62.5 mcg/actuation blister with device 1 inh inhalation DAILY clonazepam 1 mg tablet 1 mg PO BID PRN (Reason: Anxiety) rosuvastatin 40 mg tablet 40 mg PO DAILY metoprolol succinate 200 mg tablet extended release 24 hr 200 mg PO DAILY levothyroxine 100 mcg tablet 100 mcg PO DAILY acetaminophen 500 mg tablet 500 mg PO Q6H PRN (Reason: Pain) furosemide 40 mg tablet 40 mg PO DAILY albuterol sulfate 2.5 mg /3 mL (0.083 %) solution for nebulization inhalation hydrochlorothiazide 12.5 mg tablet 12.5 mg PO DAILY albuterol sulfate 90 mcg/actuation HFA aerosol inhaler 2 puff inhalation Q6H PRN (Reason: Shortness Of Breath) Creon 36,000-114,000- 180,000 unit capsule,delayed release(DR/EC) 2 cap PO QID 30 Days Qty: 240 3RF Rx Instructions: administer with meals and/or snacks simethicone 180 mg capsule 180 mg PO QID 30 Days Qty: 120 6RF Rx Instructions: after meals peg 3350-electrolytes [Golytely] 236-22.74-6.74 -5.86 gram recon soln 240 ml PO Q10M 1 Days Qty: 4000 0RF Rx Instructions: until fecal effluent is clear; do not exceed a total volume of 2,000 mL Referrals: [facility] [Outside] - 1 day Gemini Chavez MD [Primary Care Provider] - 2 days
[2023-04-07] MEDS: diphenhydrAMINE HCL 50 MG/ML VIAL 25 MG IVPUSH (10:33)
[2023-04-07] MEDS: dexAMETHasone sod phosphate 10 MG/ML VIAL IVPUSH (10:35)
== END 2023-04-07 12:18 | disposition home or self-care (01) ==
PROVIDERS: Emergency Provider Emergency Medicine; PCP Internal Medicine
DX: T78.40XA Allergy, unspecified, initial encounter (principal); X58.XXXA Exposure to other specified factors, initial encounter
CPT/HCPCS: 96374; 96375; 99284; J1100; J1200

== ENCOUNTER 2023-05-20 08:48 | Outpatient (REF) | payer OTHER, SELFPAY ==
[2023-05-20 09:28] LABS: Estimated Average Glucose 131 mg/dL; Hemoglobin A1c % 6.2 % (<6.0)
[2023-05-20 10:09] LABS: Anion Gap 14 (12-20); Blood Urea Nitrogen 16 mg/dL (9-16); Calcium 9.5 mg/dL (8.4-10.2); Carbon Dioxide 28 mmol/L (22-29); Chloride 104 mmol/L (96-108); Cholesterol 170 mg/dL (<200); Estimated Glomerular Filt Rate > 60; Glucose Random 175 mg/dL (60-115); HDL Cholesterol 36 mg/dL (>40); LDL Cholesterol Calculated 67 mg/dL (<100); Sodium 142 mmol/L (135-145); Triglycerides 335 mg/dL (<150)
[2023-05-20 10:13] LABS: TSH reflex Free T4 0.94 uIU/mL (0.32-4.0)
== END 2023-05-20 08:49 | disposition home or self-care (01) ==
LOC: HO.LAB 08:48
PROVIDERS: PCP Internal Medicine; Visit Provider Internal Medicine
DX: J44.9 Chronic obstructive pulmonary disease, unspecified (principal); I10 Essential (primary) hypertension; R73.03 Prediabetes; J30.9 Allergic rhinitis, unspecified; G47.33 Obstructive sleep apnea (adult) (pediatric); E66.9 Obesity, unspecified
CPT/HCPCS: 36415; 80048; 80061; 83036; 84443; 99212

== ENCOUNTER 2023-05-20 09:15 | Outpatient (AMB) | payer OTHER, SELFPAY ==
--- NOTE | 2023-05-20 09:21 | MHC.OFFVIS ---
Intake Vital Signs 05/20/23 09:22 Height 5 ft 5 in Weight 229 lb 4.492 oz BMI 38.2 BP 132/72 Blood Pressure Location Lt brachial Position Sitting Pulse 80 Pulse Source Pulse Oximeter Pulse Oximetry (%) 98 Oxygen Delivery Method Room Air Intake Visit Reasons: copd : 2 months f/u Drill Doctor Required: Yes Allergies Iodinated Contrast Media [CONTRAST, IV] Allergy (Unknown, Verified 05/20/23 09:30) HIVES kiwi [KIWI] Allergy (Unknown, Verified 05/20/23 09:30) THROAT SWELLING Medication List - Last Reconciled 05/20/23 by Curt Marroquin MD acetaminophen 500 mg PO Q6H PRN albuterol sulfate mg inhalation albuterol sulfate 90 mcg/actuation 2 puffs inhalation Q6H PRN apixaban 5 mg PO BID cholecalciferol (vitamin D3) 50 mcg PO DAILY clonazepam 1 mg PO BID PRN diphenhydramine HCl (Benadryl) 25 mg PO TID PRN epinephrine (EpiPen 2-Blaise) 0.3 mg (0.3 mL) IM Q4H PRN fluticasone propion-salmeterol 250-50 mcg/dose (Advair Diskus) 1 inh inhalation BID 30 days furosemide 40 mg PO DAILY hydrochlorothiazide 12.5 mg PO DAILY hydroxyzine pamoate 25 mg PO BID levothyroxine 100 mcg PO DAILY [id number]-wweshkhh-tbzovjy 36,000-114,000- 180,000 unit (Creon) 2 caps PO QID 30 days lisinopril 40 mg PO DAILY loratadine 10 mg PO DAILY meclizine 25 mg PO TID PRN metoprolol succinate ER 200 mg PO DAILY pantoprazole 40 mg PO DAILY peg 3350-electrolytes 236-22.74-6.74 -5.86 gram (Golytely) 240 mL PO Q10M 1 day prednisone 40 mg (2 x 20 mg) PO DAILY 5 days rosuvastatin 40 mg PO DAILY simethicone 180 mg PO QID 30 days umeclidinium 62.5 mcg/actuation 1 inh inhalation DAILY vitamin E (dl, acetate) 180 mg PO BID zolpidem 10 mg PO BEDTIME PRN Do you need a note to return to daycare/school/sports/work: No HPI copd : 2 months f/u HPI Details THIS 67 YEARS OLD GENTLEMAN IS A KNOWN CASE OF GROSS OBESITY/ CE BUT NOT ABLE TO USE CPAP. HE ALSO HAS CHRONIC OBSTRUCTIVE PULMONARY DISEASE FOR WHICH HE IS BEING TREATED WITH COMBINATION OF ADVAIR, INCRUSE ELLIPTA AND ALBUTEROL. HE COMES FOR FOLLOW-UP AFTER HE HAS BEEN USING ADVAIR FOR 2 MONTHS. CLAIMS THAT HIS BREATHING IS DEFINITELY MUCH BETTER. HE WALKS SLOW BUT IT HE GETS SHORT OF BREATH IF HE CLIMBS 1 FLIGHT OF STAIRS. HE HAS HAD NO ACUTE EXACERBATION CHEST INFECTION. EVEN THOUGH HE DOES NOT USE CPAP HE SLEEPS FAIRLY WELL. [facility] Medical History Hoarseness Dysphagia Throat disorder Bronchitis CHF (congestive heart failure) Afib Allergic rhinitis COPD (chronic obstructive pulmonary disease) CE (obstructive sleep apnea) Obesity (BMI 30-39.9) Hypothyroid Anxiety Palpitation HTN (hypertension) Surgical History Hx of umbilical hernia repair History of surgery on arm Hx of eye surgery Hx of colonoscopy Hx of knee surgery Hx of tonsillectomy Family History Family/Other No problems noted. Social History Alcohol intake: never Patient Tobacco Use Status: Never used Tobacco Review of Systems Const All systems reviewed & are unremarkable except as noted in HPI and below Eyes Reports no additional complaints ENT Reports nasal congestion (Mild intermittent) Card Denies chest pain, Reports irregular heart rhythm (Atrial fib) and Denies leg edema Resp Reports as per HPI GI Reports no additional complaints Reports no additional complaints Musc Reports abnormal gait (Uses cane), Reports back pain and Reports arthralgias Skin/Breast Reports system reviewed and no additional complaints, except as documented Neuro Reports no additional complaints and Reports abnormal gait (Uses cane) Psych Reports no additional complaints Physical Exam Vital Signs: Last Vital Signs Pulse 80 05/20/23 09:22 BP 132/72 05/20/23 09:22 Pulse Ox 98 05/20/23 09:22 Oxygen Delivery Method Room Air 05/20/23 09:22 BMI result Body Mass Index 38.2 Const General: comfortable, no acute distress, alert and awake Orientation/consciousness: patient oriented x3 HEENT Head: Yes normal to inspection General nose exam: No nasal polyps present and No nasal discharge present Face and sinus: Yes sinuses nontender Mouth: oropharynx normal Throat: Yes posterior oropharynx normal Eyes General: appearance normal, both eyes and all related structures Neck Neck: Yes normal visual inspection, Yes no lymphadenopathy, Yes trachea midline and Yes no JVD Thyroid: Thyroid normal Chest Chest palpation & inspection: normal inspection of the chest, normal palpation of entire chest wall and no tenderness Resp Other: Percussion note is resonant, breath sounds are distant with prolonged expiratory phase. No wheezes or rhonchi are heard. Cardio Palpation: normal PMI Rate: regular rate Rhythm: regular rhythm Heart sounds: no gallops and no murmurs GI Palpation (GI): Soft to palpation, nontender, No hepatosplenomegaly present and no masses Auscultation: normal bowel sounds Back/Spine/Pelvis Thoracic/Lumbar Spine: thoracic and lumbar spine normal to inspection and thoraco-lumbar ROM limited Skin General skin exam: no rashes or lesions noted Neuro General: patient oriented x3 and no focal motor deficits Cranial nerves: Yes CN's II-XII intact bilaterally Extrem General: Yes normal to inspection, Yes no clubbing, cyanosis or edema and Yes no calf tenderness Psych Appearance: grossly normal and well kempt Speech and movement: Normal speech and movement present Assessment & Plan Assessment & Plan (1) COPD (chronic obstructive pulmonary disease): Comment: [id number] COPD . Generally well controlled, He claims that since he is on Advair his breathing is better. Code(s): J44.9 - Chronic obstructive pulmonary disease, unspecified Plan: Continue to use: ADVAIR 250-51 INHALATION B.I.D.. INCRUSE ELLIPTA 1 INHALATION DAILY. VENTOLIN HFA 2 PUFFS Q 4-6 HOURS P.R.N. (2) Allergic rhinitis: Comment: It is mild, seasonal, Advised to use Claritin 10 mg once a day p.r.n. Code(s): J30.9 - Allergic rhinitis, unspecified Plan: ABOVE (3) CE (obstructive sleep apnea): Comment: Currently untreated. He lost his machine because of noncompliance. He claims that he sleeps okay. Advised that he should continue to lose weight and also sleep on the side as much as possible. *Patient is not interested in getting the CPAP machine again Code(s): G47.33 - Obstructive sleep apnea (adult) (pediatric) Plan: ABOVE (4) Obesity (BMI 30-39.9): Comment: Discussed about his weight, he is not well motivated to lose weight. Also cannot walk much . Advised him to cut down the use of carbohydrates, and increase roughage in the diet . Code(s): E66.9 - Obesity, unspecified Plan: ABOVE Coding Level of Care Code Est Pt Level 3 (08733) Diagnoses COPD (chronic obstructive pulmonary disease) J44.9 Allergic rhinitis J30.9 CE (obstructive sleep apnea) G47.33 Obesity (BMI 30-39.9) E66.9
[2023-05-20 09:22] VITALS: BP 132/72; PULSE 80; O2SAT 98; BMI 38.2
== END 2023-05-20 09:35 | disposition home or self-care (01) ==
PROVIDERS: PCP Internal Medicine; Visit Provider Internal Medicine
DX: J44.9 Chronic obstructive pulmonary disease, unspecified (principal); J30.9 Allergic rhinitis, unspecified; G47.33 Obstructive sleep apnea (adult) (pediatric); E66.9 Obesity, unspecified
CPT/HCPCS: 99213

== ENCOUNTER 2023-06-19 11:37 | Emergency (ER) | payer OTHER, SELFPAY ==
--- NOTE | ~2023-06-19 | CT_ITS ---
EXAMINATION: CT CERVICAL SPINE WITHOUT CONTRAST CT LUMBAR SPINE WITHOUT CONTRAST CLINICAL INFORMATION: Neck trauma. Low back pain status post fall. COMPARISON: CT soft tissue neck 06/20/2022. TECHNIQUE: Traffic Maintenance Officer images were obtained. CT imaging of the cervical spine and lumbar spine was performed without contrast. Data was reformatted into multiplanar images at the acquisition workstation. This CT examination was performed using dose optimization techniques as appropriate, including one or more of the following: Automated exposure control, iterative reconstruction, and adjustment of technique factors (mA and/or kVp) according to patient size (this includes techniques or standardized protocols for targeted exams where dose is matched to indication/reason for exam). Fleischner Society criteria for the followup of incidental pulmonary nodules was implemented if appropriate. DLP: 1985 mGy-cm. (Includes head) FINDINGS: Cervical spine: Spinal alignment is normal in the sagittal dimension. Vertebral heights are preserved. No acute cervical spine fracture. No abnormal prevertebral soft tissue swelling. There is loss of intervertebral disc height with associated sclerotic degenerative endplate changes and hypertrophic disc osteophyte spurring at C3-C4. Canal patency is not well assessed on this examination due to inherent limitations of CT without intrathecal contrast. Grossly no bony canal compromise. There is heavily calcified atheromatous plaque involving both carotid bifurcations visualized soft tissues of the neck are otherwise unremarkable. Lumbar spine: Spinal alignment is normal in the sagittal dimension. Vertebral body heights are preserved. No acute fracture. Intervertebral disc spaces are grossly maintained at all levels. Grossly no spinal canal compromise. No neuroforaminal encroachment. Limited visualization of the retroperitoneal anatomy reveals scattered atheromatous calcification involving abdominal aorta and iliac vessels. CT/CT lumbar spine wo IV con IMPRESSION: Cervical spine: No evidence of acute fracture and no posttraumatic spinal subluxation. There is degenerative spondylosis at C3-C4. Lumbar spine: No evidence of acute fracture. No canal or neuroforaminal compromise.
--- NOTE | ~2023-06-19 | CT_ITS ---
EXAMINATION: CT HEAD WITHOUT CONTRAST CLINICAL INFORMATION: Blunt head trauma without loss of consciousness, on Eliquis, significant head injury and posttraumatic headache. COMPARISON: CT scan of brain on 11/01/2022 TECHNIQUE: Contiguous axial imaging was performed from the skull base to vertex without intravenous administration of contrast. This CT examination was performed using dose optimization techniques as appropriate, variously including the following: *Automated exposure control *Adjustment of mA and/or kV according to patient size (this includes techniques or standardized protocols for targeted exams where dose is matched to indication/reason for exam; i.e. extremities or head) *Use of iterative reconstruction technique DLP: 768 mGy-cm FINDINGS: Ventricles, sulci and cisterns are dilated, especially the ventricles. There is no midline shift, no abnormal intra- or extra- axial fluid accumulation. Rust and white matter differentiation is normal. Bone window images show no evidence of skull fracture. Mild mucosal thickening is seen in the right ethmoid sinus. CT/CT head/brain wo IV con IMPRESSION: 1. Unchanged mild cerebral atrophy and ventriculomegaly. 2. No intracranial hemorrhage or skull fracture is seen. 3. No evidence of space occupying lesion could be found. 4. The current plain CT scan of the brain shows no diagnostic evidence of acute cerebral infarction.
--- NOTE | 2023-06-19 11:39 | ECG_ITS ---
Test Reason : dyspnea Blood Pressure : / mmHG Vent. Rate : 071 BPM Atrial Rate : 000 BPM P-R Int : 000 ms QRS Dur : 078 ms QT Int : 374 ms P-R-T Axes : 000 -04 -03 degrees QTc Int : 406 ms Atrial fibrillation Abnormal ECG When compared with ECG of 01-NOV-2022 22:24, No significant change was found Referred By: Generic ED Physician Electronically Signed By:ANDREWS MARTINS
[2023-06-19 11:41] VITALS: BP 121/68; PULSE 82; O2SAT 100
[2023-06-19 11:52] VITALS: BP 112/80; PULSE 67; RESP 16; TEMP 36.4; O2SAT 97; BMI 37.5
[2023-06-19 12:18] LABS: MANUAL DIFF FLAG NO
[2023-06-19 12:22] LABS: Basophils Percent Auto 0.5 % (0-2); Eosinophils Percent Auto 0.6 % (0-4); Hematocrit 41.2 % (42.0-52.0); Hemoglobin 14.1 g/dl (14.0-18.0); Imm Gran Abs Auto 0.01 X10*3/uL (0.00-0.03); Imm Gran Pct Auto 0.2 % (0.0-0.4); Lymphocytes Absolute Auto 1.7 X10*3/uL (1.2-4.9); Lymphocytes Percent Auto 27.2 % (20-40); Mean Corpuscular HGB Conc 34.2 g/dl (31.0-36.0); Mean Corpuscular Hemoglobin 31.1 pg (27.0-33.0); Mean Corpuscular Volume 90.9 fL (80.0-98.0); Mean Platelet Volume 10.3 fL (9.4-12.4); Monocytes Absolute Auto 0.8 X10*3/uL (0.1-1.2); Neutrophils Absolute Auto 3.7 x10*3/uL (2.0-8.3); Neutrophils Percent Auto 58.5 % (45-73); Platelet Count 191 X10*3/uL (160-400); Red Blood Count 4.53 X10*6/uL (4.60-5.80); Red Cell Distribution Width 11.9 % (11.0-16.0); White Blood Count 6.3 X10*3/uL (4.8-10.8)
[2023-06-19 12:32] LABS: Anion Gap 12 (12-20); Blood Urea Nitrogen 24 mg/dL (9-16); Calcium 9.5 mg/dL (8.4-10.2); Carbon Dioxide 26 mmol/L (22-29); Chloride 105 mmol/L (96-108); Creatinine Clr Calc Pharmacy 64.6; Estimated Glomerular Filt Rate 57; Glucose Random 138 mg/dL (60-115); Sodium 139 mmol/L (135-145)
[2023-06-19 12:39] LABS: B Type Natriuretic Peptide 107 pg/mL (<100)
[2023-06-19 12:40] LABS: Troponin-I High Sensitivity 5.2 ng/L (<3.5-35.0)
--- NOTE | 2023-06-19 12:59 | ED.SYNCOPE ---
HPI - Syncope General Chief Complaint: Syncope Stated Complaint: near syncope Time Seen by Provider: 06/19/23 12:15 Source: patient, old records reviewed, safety and skill based pay manager and other (INSURANCE SPECIALIST) Mode of arrival: EMS Limitations: no limitations History of Present Illness HPI narrative: 67 yo male wiht PMH of GERD, fatty liver, CE, afib on eliquis, HTN, anxiety, palpitations, CHF, dysphagia, vertigo for the last 6 months with recurrent bouts of dizziness leading to falls - states his doctor is aware. Was at [facility] states the room was spinning when he fell backwards and hit his head and lower back. He did not have a LOC he was awake for the entire thing. MD complaint: other Onset (ago): minute(s) ([place] MATE) Prodromal symptoms: lightheaded Witnessed: Yes - by Bystander Context: other (while standing and shopping) Injuries sustained associated with event: head and back (lumbar) Current symptoms: back to baseline and other (mild low back pain) History: other (dizziness with falls) Treatments prior to arrival: other (c spine collar) Related Data Home Medications Medication Instructions Recorded Confirmed acetaminophen 500 mg tablet 500 mg PO Q6H PRN Pain 05/24/20 05/20/23 apixaban 5 mg tablet 5 mg PO BID 05/24/20 05/20/23 cholecalciferol (vitamin D3) 50 50 mcg PO DAILY 05/24/20 05/20/23 mcg (2,000 unit) tablet clonazepam 1 mg tablet 1 mg PO BID PRN Anxiety 05/24/20 05/20/23 hydroxyzine pamoate 25 mg capsule 25 mg PO BID 05/24/20 05/20/23 levothyroxine 100 mcg tablet 100 mcg PO DAILY 05/24/20 05/20/23 lisinopril 40 mg tablet 40 mg PO DAILY 05/24/20 05/20/23 loratadine 10 mg tablet 10 mg PO DAILY 05/24/20 05/20/23 metoprolol succinate 200 mg 200 mg PO DAILY 05/24/20 05/20/23 tablet,extended release 24 hr rosuvastatin 40 mg tablet 40 mg PO DAILY 05/24/20 05/20/23 umeclidinium 62.5 mcg/actuation 1 inh inhalation DAILY 05/24/20 05/20/23 blister powder for inhalation zolpidem 10 mg tablet 10 mg PO BEDTIME PRN Insomnia 05/24/20 05/20/23 albuterol sulfate 2.5 mg/3 mL mg inhalation 03/20/21 05/20/23 (0.083 %) solution for nebulization hydrochlorothiazide 12.5 mg tablet 12.5 mg PO DAILY 10/19/21 05/20/23 furosemide 40 mg tablet 40 mg PO DAILY 10/03/22 05/20/23 albuterol sulfate 90 mcg/actuation 2 puff inhalation Q6H PRN 01/23/23 05/20/23 aerosol inhaler Shortness Of Breath pantoprazole 40 mg tablet,delayed 40 mg PO DAILY 03/27/23 05/20/23 release Previous Rx's Medication Instructions Recorded vitamin E (dl, acetate) 180 mg 180 mg PO BID #180 caps 01/01/22 (400 unit) capsule meclizine 25 mg tablet 25 mg PO TID PRN dizziness #20 tabs 11/02/22 dlcvpb-ymddrtoi-hzluval 2 cap PO QID 30 days #240 caps 01/23/23 36,000-114,000-180,000 unit capsule,delay rel (Creon) peg 3350-electrolytes 236 240 ml PO Q10M 1 day #4,000 mL 01/23/23 gram-22.74 gram-6.74 gram-5.86 gram solution (Golytely) simethicone 180 mg capsule 180 mg PO QID 30 days #120 caps 01/23/23 diphenhydramine HCl 25 mg capsule 25 mg PO TID PRN allergic reaction 04/07/23 (Benadryl) #20 caps epinephrine 0.3 mg/0.3 mL 0.3 mg (0.3 mL) IM Q4H PRN 04/07/23 injection, auto-injector (EpiPen anaphylaxis #2 ea 2-Blaise) prednisone 20 mg tablet 40 mg (2 x 20 mg) PO DAILY 5 days 04/07/23 #10 tabs fluticasone 250 mcg-salmeterol 50 1 inh inhalation BID COPD 30 days 04/08/23 mcg/dose blistr powdr for #60 ea inhalation (Advair Diskus) Allergies Allergy/AdvReac Type Severity Reaction Status Date / Time Iodinated Contrast Media Allergy Unknown HIVES Verified 05/20/23 09:30 [CONTRAST, IV] kiwi [KIWI] Allergy Unknown THROAT Verified 05/20/23 09:30 SWELLING Review of Systems Review of Systems: Constitutional : No Fever, No Chills, No Fatigue ENT/Mouth : No sore throat, No Rhinorrhea Eyes: No Eye Pain, No Swelling, No Redness Cardiovascular : No Chest Pain, No SOB, No Dyspnea on Exertion Respiratory : No Cough, No Sputum Gastrointestinal : No Nausea, No Vomiting, No Diarrhea, No abdominal Pain Genitourinary : No Dysuria, No Urinary Frequency, No Hematuria, Musculoskeletal : No joint pain, No Myalgias, No Joint Swelling, pos back pain Skin : No Skin Lesions, No rash Neuro : No Weakness, No Numbness, No Dizziness, positive Headache Psych : No Anxiety/Panic, No Depression All other systems reviewed and are negative [facility] Past Medical History Attestation statement: The following information was validated with the patient. Source: old records reviewed Medical History Hoarseness Dysphagia Throat disorder Bronchitis CHF (congestive heart failure) Afib Allergic rhinitis COPD (chronic obstructive pulmonary disease) CE (obstructive sleep apnea) Obesity (BMI 30-39.9) Hypothyroid Anxiety Palpitation HTN (hypertension) Surgical History Hx of umbilical hernia repair History of surgery on arm Hx of eye surgery Hx of colonoscopy Hx of knee surgery Hx of tonsillectomy Family History Family History Family/Other No problems noted. Social History Social History Alcohol intake: never Patient Tobacco Use Status: Never used Tobacco Physical Exam Vital Signs: Vital Signs: Last Vital Signs Temp 97.4 F 06/19/23 15:28 Pulse 75 06/19/23 15:28 Resp 16 06/19/23 15:28 BP 136/89 06/19/23 15:28 Pulse Ox 98 06/19/23 15:28 O2 Del Method Room Air 06/19/23 15:28 BMI result Body Mass Index 37.5 Appearance: Alert. Oriented X3. No acute distress. Eyes: Pupils equal, round and reactive to light. ENT: Pharynx normal. Atraumatic Neck: Normal inspection. Neck supple. CVS: Normal heart rate and rhythm. Pulses normal. Respiratory: No respiratory distress. Breath sounds normal. Abdomen: Soft and nontender. Back: no hematoma but noted lower lumbar ttp Skin: Skin warm and dry. Normal skin color. Normal skin turgor. Extremities: No lower extremity edema. No calf ttp Neuro: Oriented X 3. No motor deficit. No sensory deficit. Course Course Course Narrative: steady gait Medications Administered Discontinued Medications Generic Name Dose Route Start Last Admin Trade Name Keke PRN Reason Stop Dose Admin Oxycodone HCl 5 mg 06/19/23 13:16 06/19/23 13:22 Oxycodone Hcl Immed Release 5 Mg Tablet PO 06/19/23 13:17 5 mg ONCE ONE Administration Medical Decision Making Medical Decision Making [facility] Narrative: 67 yo male wiht PMH of GERD, fatty liver, CE, afib on eliquis, HTN, anxiety, palpitations, CHF, dysphagia, vertigo here with recurrent episode of room spinning and fell backwards states this happens frequently and has been going on and off for 6 months at this time injured lower back he is adamant he did not have LOC and this was not syncope. He will need basic labs, EKG, CT head/cspine and lumbar spine. He is at baseline. He states and his INSURANCE SPECIALIST that PCP is aware of falls and eliquis use. Differential Diagnosis Differential Diagnoses: The differential diagnosis associated with the presentation includes vertigo, head injury, back injury Admission/Observation Consideration of admission/observation: Escalation of care including admission/observation considered GCS 15 at baseline, steady gait, dizziness resolved Lab Data [facility] Lab Attestation statement: I reviewed the patient's lab results. 06/19/23 12:14 06/19/23 12:14 Labs: Lab Results 06/19/23 06/19/23 Range/Units 12:14 12:15 WBC 6.3 (4.8-10.8) X10*3/uL RBC 4.53 L (4.60-5.80) X10*6/uL Hgb 14.1 (14.0-18.0) g/dl Hct 41.2 L (42.0-52.0) % MCV 90.9 (80.0-98.0) fL MCH 31.1 (27.0-33.0) pg MCHC 34.2 (31.0-36.0) g/dl RDW 11.9 (11.0-16.0) % Plt Count 191 (160-400) X10*3/uL MPV 10.3 (9.4-12.4) fL Immature Gran % (Auto) 0.2 (0.0-0.4) % Neut % (Auto) 58.5 (45-73) % Lymph % (Auto) 27.2 (20-40) % [place] % (Auto) 13.0 H (2-11) % Eos % (Auto) 0.6 (0-4) % Baso % (Auto) 0.5 (0-2) % Lymph # (Auto) 1.7 (1.2-4.9) X10*3/uL [place] # (Auto) 0.8 (0.1-1.2) X10*3/uL Eos # (Auto) 0.0 (0.0-0.4) X10*3/uL Baso # (Auto) 0.0 (0.0-0.2) X10*3/uL Abs Immat Gran (auto) 0.01 (0.00-0.03) X10*3/uL Absolute Neuts (auto) 3.7 (2.0-8.3) x10*3/uL Absolute Nucleated RBC 0.000 (0.0-0.012) X10*3/uL Nucleated RBC % (auto) 0.0 (0.0-0.2) /100WBC Sodium 139 (135-145) mmol/L Potassium 4.0 (3.3-5.1) mmol/L Chloride 105 (96-108) mmol/L Carbon Dioxide 26 (22-29) mmol/L Anion Gap 12 (12-20) BUN 24 H (9-16) mg/dL Creatinine 1.26 (0.5-1.4) mg/dL Estim Creat Clear Calc 64.6 Estimated GFR 57 Random Glucose 138 H (60-115) mg/dL Calcium 9.5 (8.4-10.2) mg/dL Troponin I High Sens 5.2 D (<3.5-35.0) ng/L B-Natriuretic Peptide 107 H (<100) pg/mL Independent Interpretation I performed an independent interpretation of an: EKG and CT Scan (no trauma) Interpretation: Rate: 71 Rhythm: afib [place]: left Normal QRS complex. ST T wave : normal no KIARA qTC: 406 prior studies: The study has been interpreted contemporaneously by me. . Radiology Impression Discussion of test interpretation with radiology: I have reviewed the radiologist's reading. Independent Historian Clinical information obtained from an independent historian. History obtained from or confirmed by: EMS External Record Review External record reviewed: Inpatient record Discharge Plan Discharge Clinical Impression: Dizziness Head injury Qualifiers: Encounter type: initial encounter Qualified Code(s): S09.90XA - Unspecified injury of head, initial encounter Low back pain Qualifiers: Chronicity: acute Back pain laterality: bilateral Sciatica presence: without sciatica Qualified Code(s): M54.50 - Low back pain, unspecified Patient Disposition: Home, Self-Care Instructions: Acute Low Back Pain (ED), Dizziness (ED), Head Injury (ED) Additional Instructions: no acute findings on labs, CT head, cervical spine or lumbar spine - no fractures, bleeding or broken bones. return for worsening pain, confusion, vomiting or any other concerns. sin hallazgos agudos en los laboratorios, tomograf?a computarizada de la gustavo, columna cervical o columna lumbar; sin fracturas, sangrado ni huesos rotos. Regrese si el dolor empeora, confusi?n, v?mitos o cualquier otra inquietud. Prescriptions: No Action vitamin E (dl, acetate) 180 mg (400 unit) capsule 180 mg PO BID Qty: 180 1RF fluticasone propion-salmeterol [Advair Diskus] 250-50 mcg/dose blister with device 1 inh inhalation BID 30 Days Qty: 60 3RF meclizine 25 mg tablet 25 mg PO TID PRN (Reason: dizziness) Qty: 20 0RF pantoprazole 40 mg tablet,delayed release (DR/EC) 40 mg PO DAILY diphenhydramine HCl [Benadryl] 25 mg capsule 25 mg PO TID PRN (Reason: allergic reaction) Qty: 20 0RF prednisone 20 mg tablet 40 mg PO DAILY 5 Days Qty: 10 0RF epinephrine [EpiPen 2-Blaise] 0.3 mg/0.3 mL auto-injector 0.3 mg IM Q4H PRN (Reason: anaphylaxis) Qty: 2 0RF loratadine 10 mg tablet 10 mg PO DAILY zolpidem 10 mg tablet 10 mg PO BEDTIME PRN (Reason: Insomnia) hydroxyzine pamoate 25 mg capsule 25 mg PO BID cholecalciferol (vitamin D3) 50 mcg (2,000 unit) tablet 50 mcg PO DAILY lisinopril 40 mg tablet 40 mg PO DAILY Eliquis 5 mg tablet 5 mg PO BID Incruse Ellipta 62.5 mcg/actuation blister with device 1 inh inhalation DAILY clonazepam 1 mg tablet 1 mg PO BID PRN (Reason: Anxiety) rosuvastatin 40 mg tablet 40 mg PO DAILY metoprolol succinate 200 mg tablet extended release 24 hr 200 mg PO DAILY levothyroxine 100 mcg tablet 100 mcg PO DAILY acetaminophen 500 mg tablet 500 mg PO Q6H PRN (Reason: Pain) furosemide 40 mg tablet 40 mg PO DAILY albuterol sulfate 2.5 mg /3 mL (0.083 %) solution for nebulization inhalation hydrochlorothiazide 12.5 mg tablet 12.5 mg PO DAILY albuterol sulfate 90 mcg/actuation HFA aerosol inhaler 2 puff inhalation Q6H PRN (Reason: Shortness Of Breath) Creon 36,000-114,000- 180,000 unit capsule,delayed release(DR/EC) 2 cap PO QID 30 Days Qty: 240 3RF Rx Instructions: administer with meals and/or snacks simethicone 180 mg capsule 180 mg PO QID 30 Days Qty: 120 6RF Rx Instructions: after meals peg 3350-electrolytes [Golytely] 236-22.74-6.74 -5.86 gram recon soln 240 ml PO Q10M 1 Days Qty: 4000 0RF Rx Instructions: until fecal effluent is clear; do not exceed a total volume of 2,000 mL Print Language: Kazakh
[2023-06-19] MEDS: oxyCODONE HCl Immed Release 5 MG TABLET PO (13:22)
[2023-06-19 15:28] VITALS: BP 136/89; PULSE 75; RESP 16; TEMP 36.3; O2SAT 98
[2023-06-19 15:53] LABS: Glucose, Whole Blood 106 mg/dL (60-115)
== END 2023-06-19 16:31 | disposition home or self-care (01) ==
PROVIDERS: Emergency Provider Emergency Medicine; PCP Internal Medicine
DX: S09.90XA Unspecified injury of head, initial encounter (principal); R55 Syncope and collapse; M54.50 Low back pain, unspecified; R51.9 Headache, unspecified; I48.91 Unspecified atrial fibrillation; R06.02 Shortness of breath; M54.2 Cervicalgia; I10 Essential (primary) hypertension; W01.10XA Fall on same level from slipping, tripping and stumbling with subsequent striking against unspecified object, initial encounter; Y93.9 Activity, unspecified; Y92.9 Unspecified place or not applicable; Y99.8 Other external cause status; Z79.01 Long term (current) use of anticoagulants; Z79.899 Other long term (current) drug therapy
CPT/HCPCS: 36415; 70450; 72125; 72132; 80048; 82947; 83880; 84484; 85025; 93005; 99284; 99285

== ENCOUNTER → 2023-06-19 11:39 | Outpatient (BNV) | payer OTHER, SELFPAY | PROVIDERS: Emergency Provider Emergency Medicine; PCP Internal Medicine; Visit Provider Internal Medicine | DX: I48.91 Unspecified atrial fibrillation (principal) | CPT/HCPCS: 93010 ==

== ENCOUNTER 2023-07-02 17:45 | Outpatient (REF) | payer OTHER, SELFPAY | END 2023-07-02 17:46 | disposition home or self-care (01) | LOC: HO.HHCLNP 17:45 | PROVIDERS: Visit Provider Emergency Medicine | DX: J02.9 Acute pharyngitis, unspecified (principal) | CPT/HCPCS: 87070 ==

== ENCOUNTER 2023-08-08 09:27 | Inpatient (IN) | payer OTHER, SELFPAY ==
[2023-08-08] VITALS (13 sets, daily range): BP systolic 93–138; BP diastolic 60–90; PULSE 90–136; RESP 15–26; TEMP 36.3–37.1; O2SAT 95–100; BMI 33.3
--- NOTE | ~2023-08-08 | XR_ITS ---
EXAMINATION: XR CHEST CLINICAL INFORMATION: Cough. Dyspnea. COMPARISON: Previous chest x-ray October 2022 TECHNIQUE: 2 views of the chest were obtained. FINDINGS: The cardiac and mediastinal contours are stable. There may be subsegmental atelectasis at the left lung base. No definite pneumonia. No pleural effusion or pneumothorax. Degenerative changes of the spine. XR/XR chest 2V IMPRESSION: Subsegmental atelectasis at the left lung base. No definite pneumonia.
--- NOTE | 2023-08-08 09:48 | ED.ASTHMA ---
HPI - Asthma General Chief Complaint: Asthma Stated Complaint: diff breathing, coming from home, per ems Time Seen by Provider: 08/08/23 09:37 Source: patient, EMS and RN notes reviewed Mode of arrival: EMS Limitations: no limitations History of Present Illness HPI Narrative: Patient is a 67-year-old male with history of asthma, COPD, CE, CHF, AFib on Eliquis, hypothyroid, HTN presenting to the emergency department with 6 days of shortness of breath, nonproductive cough and wheezing. He denies fevers. Denies chest pain or palpitations. Also complains of bilateral flank pain. Denies dysuria or hematuria. Denies abdominal pain, nausea, vomiting, diarrhea, constipation. Denies recent calf pain or swelling. MD complaint: shortness of breath and wheezing Onset (ago): day(s) Severity: moderate Associated symptoms: dry cough Treatments Prior to Arrival: inhaled bronchodilator Related Data Home Medications Medication Instructions Recorded Confirmed acetaminophen 500 mg tablet 500 mg PO Q6H PRN Pain 05/24/20 05/20/23 apixaban 5 mg tablet 5 mg PO BID 05/24/20 05/20/23 cholecalciferol (vitamin D3) 50 50 mcg PO DAILY 05/24/20 05/20/23 mcg (2,000 unit) tablet clonazepam 1 mg tablet 1 mg PO BID PRN Anxiety 05/24/20 05/20/23 hydroxyzine pamoate 25 mg capsule 25 mg PO BID 05/24/20 05/20/23 levothyroxine 100 mcg tablet 100 mcg PO DAILY 05/24/20 05/20/23 lisinopril 40 mg tablet 40 mg PO DAILY 05/24/20 05/20/23 loratadine 10 mg tablet 10 mg PO DAILY 05/24/20 05/20/23 metoprolol succinate 200 mg 200 mg PO DAILY 05/24/20 05/20/23 tablet,extended release 24 hr rosuvastatin 40 mg tablet 40 mg PO DAILY 05/24/20 05/20/23 umeclidinium 62.5 mcg/actuation 1 inh inhalation DAILY 05/24/20 05/20/23 blister powder for inhalation zolpidem 10 mg tablet 10 mg PO BEDTIME PRN Insomnia 05/24/20 05/20/23 albuterol sulfate 2.5 mg/3 mL mg inhalation 03/20/21 05/20/23 (0.083 %) solution for nebulization hydrochlorothiazide 12.5 mg tablet 12.5 mg PO DAILY 10/19/21 05/20/23 furosemide 40 mg tablet 40 mg PO DAILY 10/03/22 05/20/23 pantoprazole 40 mg tablet,delayed 40 mg PO DAILY 03/27/23 05/20/23 release Previous Rx's Medication Instructions Recorded vitamin E (dl, acetate) 180 mg 180 mg PO BID #180 caps 01/01/22 (400 unit) capsule meclizine 25 mg tablet 25 mg PO TID PRN dizziness #20 tabs 11/02/22 hnolba-jepccfkj-nlpmfvv 2 cap PO QID 30 days #240 caps 01/23/23 36,000-114,000-180,000 unit capsule,delay rel (Creon) peg 3350-electrolytes 236 240 ml PO Q10M 1 day #4,000 mL 01/23/23 gram-22.74 gram-6.74 gram-5.86 gram solution (Golytely) simethicone 180 mg capsule 180 mg PO QID 30 days #120 caps 01/23/23 diphenhydramine HCl 25 mg capsule 25 mg PO TID PRN allergic reaction 04/07/23 (Benadryl) #20 caps epinephrine 0.3 mg/0.3 mL 0.3 mg (0.3 mL) IM Q4H PRN 04/07/23 injection, auto-injector (EpiPen anaphylaxis #2 ea 2-Blaise) prednisone 20 mg tablet 40 mg (2 x 20 mg) PO DAILY 5 days 04/07/23 #10 tabs fluticasone 250 mcg-salmeterol 50 1 ea PO BID #180 ea 07/04/23 mcg/dose blistr powdr for inhalation (Wixela Inhub) albuterol sulfate 90 mcg/actuation 2 puff inhalation Q6H PRN 08/05/23 aerosol inhaler Shortness Of Breath #1 ea Allergies Allergy/AdvReac Type Severity Reaction Status Date / Time Iodinated Contrast Media Allergy Unknown HIVES Verified 05/20/23 09:30 [CONTRAST, IV] kiwi [KIWI] Allergy Unknown THROAT Verified 05/20/23 09:30 SWELLING Review of Systems Review of Systems: As per HPI. Yes all other systems are reviewed and are negative Constitutional: Constitutional: Reports as per HPI [facility] Past Medical History Medical History Hoarseness Dysphagia Throat disorder Bronchitis CHF (congestive heart failure) Afib Allergic rhinitis COPD (chronic obstructive pulmonary disease) CE (obstructive sleep apnea) Obesity (BMI 30-39.9) Hypothyroid Anxiety Palpitation HTN (hypertension) Surgical History Hx of umbilical hernia repair History of surgery on arm Hx of eye surgery Hx of colonoscopy Hx of knee surgery Hx of tonsillectomy Family History Family History Family/Other No problems noted. Social History Social History Alcohol intake: former Patient Tobacco Use Status: Never used Tobacco Smoked in Last 30 Days: No Use of substances other than those prescribed or required for medical reasons: No Advance Directives: No Advance Directives Information Provided: No Physical Exam Vital Signs: Vital Signs: Last Vital Signs Temp 98.8 F 08/08/23 12:41 Pulse 136 H 08/08/23 12:41 Resp 18 08/08/23 12:41 BP 106/68 08/08/23 12:41 Pulse Ox 96 08/08/23 12:41 O2 Del Method Room Air 08/08/23 12:41 O2 Flow Rate 98 08/08/23 10:00 BMI result Body Mass Index 33.3 Vital signs have been reviewed and appear to be correct. Blood pressure normal. Heart rate tachycardic. Respiratory rate tachypneic. Temperature normal (97.9 oral). Oxygen saturation normal. Const: General: cooperative and no acute distress Orientation/consciousness: oriented to person, oriented to place, oriented to time and patient oriented x3 Limitations: no limitations HEENT: Head: Yes normocephalic and Yes atraumatic Ears: external ears normal General nose exam: Normal external nose present Face and sinus: Yes face symmetric Mouth: oropharynx normal and moist mucous membranes Throat: Yes uvula midline Eyes: Pupils: Equal, round and reactive pupils present Neck: Neck: Yes normal visual inspection and Yes supple Resp: Effort & Inspection: abnormal respiratory effort (increased effort) and no respiratory distress Auscultation: wheezes expiratory wheezes, inspiratory wheezes and throughout Cardio: Rate: regular rate Rhythm: regular rhythm Heart sounds: S1 normal heart sound present and S2 normal heart sound present GI: Palpation (GI): Soft to palpation and nontender Auscultation: normoactive bowel sounds : General: Yes no CVA tenderness Back/Spine/Pelvis: Back: no CVA tenderness Skin: General skin exam: elasticity normal and turgor normal Neuro: General: oriented to person, oriented to place, oriented to time, patient oriented x3, moves all extremities, no focal motor deficits and CN's II-XI intact bilaterally Cranial nerves: Yes Equal, round and reactive pupils present Cognition (Neuro): normal cognition Extrem: General: Yes full ROM, Yes no pedal edema and Yes no calf tenderness Psych: Mental Status: mental status grossly normal Affect: normal affect Thought process: Normal thought process present Medications Administered Discontinued Medications Generic Name Dose Route Start Last Admin Trade Name Freq PRN Reason Stop Dose Admin Albuterol Sulfate 5 mg/ 0 mg 08/08/23 10:09 08/08/23 10:13 Albuterol/Ipratropium 3 ml INHALE 08/08/23 10:10 1 each ONCE ONE Administration Levalbuterol HCl 1.25 mg/ 0 mg 08/08/23 11:09 08/08/23 11:11 Ipratropium Upperco 0.5 mg INHALE 08/08/23 11:10 1 dose ONCE ONE Administration Diltiazem HCl 10 mg 08/08/23 13:10 08/08/23 13:22 Diltiazem Hcl 50 Mg/10 Ml Vial IVPUSH 08/08/23 13:11 10 mg STAT STA Administration Doxycycline Monohydrate 100 mg 08/08/23 11:04 08/08/23 11:09 Doxycycline Monohydrate 100 Mg Capsule PO 08/08/23 11:05 100 mg ONCE ONE Administration Ceftriaxone Sodium 1 gm/ 50 mls @ 100 mls/hr 08/08/23 09:53 08/08/23 11:39 Sodium Chloride IV 08/08/23 10:22 Infused ONCE ONE Infusion Sodium Chloride 1,000 mls @ 999 mls/hr 08/08/23 11:00 08/08/23 12:15 Ns IV 08/08/23 12:00 Infused .Q1H1M [facility] Infusion Methylprednisolone Sodium Succinate 125 mg 08/08/23 09:53 08/08/23 10:44 Methylprednisolone Sod Succ 125 Mg/2 Ml Vial IVPUSH 08/08/23 09:54 125 mg ONCE ONE Administration Metoprolol Tartrate 5 mg 08/08/23 10:35 08/08/23 10:41 Metoprolol Tartrate 5 Mg/5 Ml Vial IVPUSH 08/08/23 10:36 5 mg ONCE ONE Administration Metoprolol Tartrate 5 mg 08/08/23 12:00 08/08/23 12:14 Metoprolol Tartrate 5 Mg/5 Ml Vial IVPUSH 08/08/23 12:01 5 mg ONCE ONE Administration Morphine Sulfate 4 mg 08/08/23 12:29 08/08/23 12:39 Morphine Sulfate 4 Mg/Ml Cartridge IVPUSH 08/08/23 12:30 4 mg ONCE ONE Administration Protocol Medical Decision Making Medical Decision Making [facility] Narrative: Patient is a 67-year-old male with history of asthma, COPD, CE, CHF, AFib on Eliquis, hypothyroid, HTN presenting to the emergency department with 6 days of shortness of breath, nonproductive cough and wheezing. On exam patient is awake, A+Ox3, tachycardic, tachypneic, afebrile, normal neurological exam without focal deficits, physical exam findings as above. Given reported symptoms and physical exam findings, initial differential includes COPD exacerbation, viral illness, bronchitis, pneumonia, CHF exacerbation. Patient became increasingly tachycardic with breathing treatment given here, EKG shows afib with RVR. IV metoprolol and ceftriaxone ordered. Plan: labs including cultures and lactic, IV abx, IV metoprolol, CXR, ED bronch protocol Labs notable for lactic of 2.8, patient does not meet severe sepsis criteria and therefore does not require the 30mL/kg bolus. X-ray notable for atelectasis of left lung base. My interpretation is in agreement with the radiologist's interpretation. Will treat for pneumonia with ceftriaxone and doxycycline. Patient remains tachycardic despite 2 doses of metoprolol. He continues to complain of bilateral flank pain, has not provided urine specimen yet, will treat pain to see if this improves his heart rate. Heart rate not improved with morphine. Diltiazem given with improvement in rate. Repeat troponin negative. Repeat lactic slightly increased, patient has received 2L of IV fluids. Differential Diagnosis Differential Diagnoses: The differential diagnosis associated with the presentation includes As per [facility]. Admission/Observation Consideration of admission/observation: Escalation of care including admission/observation considered Lab Data [facility] Lab Attestation statement: I reviewed the patient's lab results. As per MDM. 08/08/23 10:23 08/08/23 10:23 Labs: Lab Results 08/08/23 08/08/23 Range/Units 10:23 13:29 WBC 9.1 (4.8-10.8) X10*3/uL RBC 4.32 L (4.60-5.80) X10*6/uL Hgb 13.8 L (14.0-18.0) g/dl Hct 40.1 L (42.0-52.0) % MCV 92.8 (80.0-98.0) fL MCH 31.9 (27.0-33.0) pg MCHC 34.4 (31.0-36.0) g/dl RDW 12.6 (11.0-16.0) % Plt Count 157 L (160-400) X10*3/uL MPV 10.1 (9.4-12.4) fL Immature Gran % (Auto) 0.6 H (0.0-0.4) % Neut % (Auto) 84.8 H (45-73) % Lymph % (Auto) 7.1 L (20-40) % Esmeralda % (Auto) 7.1 (2-11) % Eos % (Auto) 0.1 (0-4) % Baso % (Auto) 0.3 (0-2) % Lymph # (Auto) 0.6 L (1.2-4.9) X10*3/uL [place]mer[place] # (Auto) 0.6 (0.1-1.2) X10*3/uL Eos # (Auto) 0.0 (0.0-0.4) X10*3/uL Baso # (Auto) 0.0 (0.0-0.2) X10*3/uL Abs Immat Gran (auto) 0.05 H (0.00-0.03) X10*3/uL Absolute Neuts (auto) 7.7 (2.0-8.3) x10*3/uL Absolute Nucleated RBC 0.000 (0.0-0.012) X10*3/uL Nucleated RBC % (auto) 0.0 (0.0-0.2) /100WBC Sodium 138 (135-145) mmol/L Potassium 3.4 (3.3-5.1) mmol/L Chloride 103 (96-108) mmol/L Carbon Dioxide 26 (22-29) mmol/L Anion Gap 12 (12-20) BUN 25 H (9-16) mg/dL Creatinine 1.38 (0.5-1.4) mg/dL Estim Creat Clear Calc 63.1 Estimated GFR 51 Random Glucose 249 H (60-115) mg/dL Lactic Acid 2.8 H* (0.5-2.0) mmol/L Lactic Acid F/U @ 2Hr 3.3 H* (0.5-2.0) mmol/L Calcium 9.1 (8.4-10.2) mg/dL Total Bilirubin 1.2 H (0.0-1.0) mg/dL AST 21 (5-37) U/L ALT 25 (0-40) U/L Alkaline Phosphatase 55 (39-117) U/L Troponin I High Sens 3.3 2.7 (<3.5-35.0) ng/L B-Natriuretic Peptide 65 (<100) pg/mL Total Protein 6.9 (6.5-8.0) g/dL Albumin 3.9 (3.5-5.0) g/dL Influenza Type A (PCR) NEGATIVE (Negative) Influenza Type B (PCR) NEGATIVE (Negative) RSV RNA Qual (PCR) NEGATIVE (Negative) SARS-CoV-2 RNA (RT-PCR) NEGATIVE (Negative) Independent Interpretation I performed an independent interpretation of an: EKG (Initial EKG shows afib with RVR, rate of 168bpm, normal QTc, ST depression in V3-V5, likely rate related; repeat EKG shows atrial fibrillation with RVR, rate 118 beats per minute, normal QTc) and Plain X-Ray Interpretation: Left lower lobe atelectasis noted on chest x-ray Radiology Impression Discussion of test interpretation with radiology: I have reviewed the radiologist's reading. Radiologist Impression: XR/XR chest 2V IMPRESSION: Subsegmental atelectasis at the left lung base. No definite pneumonia. External Record Review External record reviewed: Inpatient record, Office record and Outpatient record Prescription Management I considered prescription management with: Pain Medication and Antibiotic Chronic Conditions Patient?s care impacted by: Other Critical Care Time Critical Care Time Critical Care Time: Yes Total Critical Care Time: 45 Attestation: I have personally provided critical care time exclusive of time spent on separately billable procedures. Time includes review of lab data, radiology results, discussion with consultants, and monitoring for potential decompensation. Intervention performed as documented. Discharge Plan Discharge Clinical Impression: Acute exacerbation of chronic obstructive pulmonary disease, Atrial fibrillation with RVR Patient Disposition: Admitted As Inpatient
--- NOTE | 2023-08-08 09:57 | ECG_ITS ---
Test Reason : DYSPNEA Blood Pressure : / mmHG Vent. Rate : 168 BPM Atrial Rate : 000 BPM P-R Int : 000 ms QRS Dur : 070 ms QT Int : 262 ms P-R-T Axes : 000 008 -32 degrees QTc Int : 437 ms Atrial fibrillation with rapid ventricular response Posterior infarct , age undetermined ST & T wave changes- subendocardial injury Abnormal ECG When compared with ECG of 19-JUN-2023 12:06, Vent. rate has increased BY [address] now depressed in Lateral leads Nonspecific T wave abnormality has replaced inverted T waves in Inferior leads Referred By: Ysabel Benton Electronically Signed By:Jez Welch
[2023-08-08] MEDS: Albuterol Sulfate 5 MG, Albuterol/Iprat 2.5/0.5MG 3 ML 3 ML INHALE (10:13)
[2023-08-08 10:30] LABS: MANUAL DIFF FLAG NO
[2023-08-08] MEDS: Metoprolol Tartrate 5 MG/5 ML VIAL IVPUSH ×2 (10:41→12:14)
[2023-08-08] MEDS: methylPREDNISolone Sod Succ 125 MG/2 ML VIAL IVPUSH (10:44)
[2023-08-08] MEDS: cefTRIAXone sodium 1 GM in 0.9 % Sodium Chloride 50 ML IV (10:45)
[2023-08-08 10:48] LABS: Basophils Percent Auto 0.3 % (0-2); Eosinophils Percent Auto 0.1 % (0-4); Hematocrit 40.1 % (42.0-52.0); Hemoglobin 13.8 g/dl (14.0-18.0); Imm Gran Abs Auto 0.05 X10*3/uL (0.00-0.03); Imm Gran Pct Auto 0.6 % (0.0-0.4); Lymphocytes Absolute Auto 0.6 X10*3/uL (1.2-4.9); Lymphocytes Percent Auto 7.1 % (20-40); Mean Corpuscular HGB Conc 34.4 g/dl (31.0-36.0); Mean Corpuscular Hemoglobin 31.9 pg (27.0-33.0); Mean Corpuscular Volume 92.8 fL (80.0-98.0); Mean Platelet Volume 10.1 fL (9.4-12.4); Monocytes Absolute Auto 0.6 X10*3/uL (0.1-1.2); Monocytes Percent Auto 7.1 % (2-11); Neutrophils Absolute Auto 7.7 x10*3/uL (2.0-8.3); Neutrophils Percent Auto 84.8 % (45-73); Platelet Count 157 X10*3/uL (160-400); Red Blood Count 4.32 X10*6/uL (4.60-5.80); Red Cell Distribution Width 12.6 % (11.0-16.0); White Blood Count 9.1 X10*3/uL (4.8-10.8)
[2023-08-08 10:50] LABS: Alanine Aminotransferase 25 U/L (0-40); Albumin Level 3.9 g/dL (3.5-5.0); Alkaline Phosphatase 55 U/L (39-117); Anion Gap 12 (12-20); Aspartate Amino Transferase 21 U/L (5-37); Bilirubin Total 1.2 mg/dL (0.0-1.0); Blood Urea Nitrogen 25 mg/dL (9-16); Calcium 9.1 mg/dL (8.4-10.2); Carbon Dioxide 26 mmol/L (22-29); Chloride 103 mmol/L (96-108); Creatinine Clr Calc Pharmacy 63.1; Estimated Glomerular Filt Rate 51; Glucose Random 249 mg/dL (60-115); Potassium 3.4 mmol/L (3.3-5.1); Sodium 138 mmol/L (135-145); Total Protein 6.9 g/dL (6.5-8.0)
[2023-08-08 10:54] LABS: B Type Natriuretic Peptide 65 pg/mL (<100); Lactic Acid 2.8 mmol/L (0.5-2.0)
[2023-08-08 10:58] LABS: Troponin-I High Sensitivity 3.3 ng/L (<3.5-35.0)
[2023-08-08 11:07] LABS: Influenza A PCR NEGATIVE (Negative); Influenza B PCR NEGATIVE (Negative); Resp Syncy Virus RNA Qual PCR NEGATIVE (Negative); SARS COV2 PCR INHOUSE NEGATIVE (Negative)
[2023-08-08] MEDS: Doxycycline Monohydrate 100 MG CAPSULE PO (11:09)
[2023-08-08] MEDS: 0.9 % Sodium Chloride 1,000 ML 999 ML IV (11:09)
[2023-08-08] MEDS: levalbuterol HCL 1.25 MG, Ipratropium Bromide 0.5 MG INHALE ×2 (11:11→14:57)
[2023-08-08 12:27] LABS: Reflex Lactate? Lactic Acid Added
[2023-08-08] MEDS: Morphine Sulfate 4 MG/ML CARTRIDGE IVPUSH (12:39)
[2023-08-08] MEDS: dilTIAZem HCL 50 MG/10 ML VIAL 10 MG IVPUSH (13:22)
[2023-08-08 13:51] LABS: ~Lactic Acid-LAB USE ONLY 3.3 mmol/L (0.5-2.0)
--- NOTE | 2023-08-08 13:55 | ECG_ITS ---
Test Reason : TACHY Blood Pressure : / mmHG Vent. Rate : 118 BPM Atrial Rate : 000 BPM P-R Int : 000 ms QRS Dur : 070 ms QT Int : 324 ms P-R-T Axes : 000 008 004 degrees QTc Int : 454 ms Atrial fibrillation with rapid ventricular response Abnormal ECG When compared with ECG of 08-AUG-2023 10:29, ST no longer depressed in Anterolateral leads Referred By: Ysabel Benton Electronically Signed By:Jez Welch
[2023-08-08 13:58] LABS: Troponin-I High Sensitivity 2.7 ng/L (<3.5-35.0)
--- NOTE | 2023-08-08 14:23 | P.HPHOSP_ITS ---
History of Present Illness Date of Service: 08/08/23 Attending physician on admission: Daniel Garza Chief Complaint: SOB, difficulty breathing Pt is a 67-year-old male with a PMH significant for paroxysmal?AFib on Eliquis, moderate persistent asthma, CE intolerant of CPAP, HTN, HLD, vertigo, and GERD who presents to the ED with?SOB and nonproductive cough x6 days. Patient also complains of chest pressure without pain or palpitations x3 days and lower right-sided back pain for the past 2 days, worse with breathing deeply or coughing. Patient additionally complains of RUQ and right-sided abdominal pain separate from lower right back pain that started while in the ED 20-30 minutes ago denies nausea, vomiting. No diarrhea. Patient denies ever having similar symptoms this bad before, and denies of her being admitted to the hospital for asthma exacerbation. Denies fever or chills. In the ED pt was tachycardic up to 136, tachypneic up to 26, satting at 96% on RA. Labs were significant for random glucose 249, lactic acid 2.8 with repeat 3.3, and total bilirubin 1.2. Initial troponin 3.3 with repeat 2.7. No leukocytosis. Stable H&H 13.8/40.1. No significant electrolyte abnormalities. Tested negative for flu, RSV, COVID. CXR showed subsegmental atelectasis at the left lung base with no definite pneumonia. Initial EKG demonstrated AFib with RVR of [address] depressions in V2-V6; repeat EKG showed AFib with RVR of 118 not evidence of significant ST elevations or depressions.. Pt was treated with DuoNeb, Solu-Medrol, ceftriaxone, doxycycline, morphine, metoprolol 5 mg IV x2 doses, diltiazem 10 mg IV, and IVF. Pt will be admitted to the hospital for treatment further evaluation of AFib with RVR in the setting of acute asthma exacerbation. Review of Systems 2 Review of Systems: SOB, difficulty breathing Nonproductive cough Chest pressure Right lower back pain RUQ and right-sided flank pain Denies fever, chills, nausea, vomiting PMFSH Medical History Hoarseness Dysphagia Throat disorder Bronchitis CHF (congestive heart failure) Afib Allergic rhinitis COPD (chronic obstructive pulmonary disease) CE (obstructive sleep apnea) Obesity (BMI 30-39.9) Hypothyroid Anxiety Palpitation HTN (hypertension) Family History Family/Other No problems noted. Surgical History Hx of umbilical hernia repair History of surgery on arm Hx of eye surgery Hx of colonoscopy Hx of knee surgery Hx of tonsillectomy Social History Alcohol intake: former Patient Tobacco Use Status: Never used Tobacco Smoked in Last 30 Days: No Use of substances other than those prescribed or required for medical reasons: No Advance Directives: No Advance Directives Information Provided: No Meds Allergies Allergy/AdvReac Type Severity Reaction Status Date / Time Iodinated Contrast Media Allergy Unknown HIVES Verified 05/20/23 09:30 [CONTRAST, IV] kiwi [KIWI] Allergy Unknown THROAT Verified 05/20/23 09:30 SWELLING Home Medications Medication Instructions Recorded Confirmed Last Taken Type acetaminophen 500 mg tablet 500 mg PO Q6H PRN Pain 05/24/20 05/20/23 Unknown History apixaban 5 mg tablet 5 mg PO BID 05/24/20 05/20/23 08/07/23 History cholecalciferol (vitamin D3) 50 50 mcg PO DAILY 05/24/20 05/20/23 08/07/23 History mcg (2,000 unit) tablet clonazepam 1 mg tablet 1 mg PO BID PRN Anxiety 05/24/20 05/20/23 08/07/23 History hydroxyzine pamoate 25 mg capsule 25 mg PO BID 05/24/20 05/20/23 Unknown History levothyroxine 100 mcg tablet 100 mcg PO DAILY 05/24/20 05/20/23 08/07/23 History lisinopril 40 mg tablet 40 mg PO DAILY 05/24/20 05/20/23 Unknown History loratadine 10 mg tablet 10 mg PO DAILY 05/24/20 05/20/23 Unknown History metoprolol succinate 200 mg 200 mg PO DAILY 05/24/20 05/20/23 04/01/23 06:00 History tablet,extended release 24 hr 200 rosuvastatin 40 mg tablet 40 mg PO DAILY 05/24/20 05/20/23 Unknown History umeclidinium 62.5 mcg/actuation 1 inh inhalation DAILY 05/24/20 05/20/23 Unknown History blister powder for inhalation zolpidem 10 mg tablet 10 mg PO BEDTIME PRN Insomnia 05/24/20 05/20/23 Unknown History albuterol sulfate 2.5 mg/3 mL 3 mg inhalation QID PRN Shortness 03/20/21 05/20/23 08/07/23 History (0.083 %) solution for nebulization Of Breath Or Wheezing hydrochlorothiazide 12.5 mg tablet 12.5 mg PO DAILY 10/19/21 05/20/23 08/07/23 History furosemide 40 mg tablet 40 mg PO DAILY 10/03/22 05/20/23 Unknown History pantoprazole 40 mg tablet,delayed 40 mg PO DAILY 03/27/23 05/20/23 Unknown History release Physical Exam 2 Vital Signs and Narrative: Vital Signs: Last Vital Signs Temp 98.8 F 08/08/23 12:41 Pulse 136 H 08/08/23 12:41 Resp 18 08/08/23 12:41 BP 106/68 08/08/23 12:41 Pulse Ox 96 08/08/23 12:41 O2 Del Method Room Air 08/08/23 12:41 O2 Flow Rate 98 08/08/23 10:00 BMI result Body Mass Index 33.3 Constitutional: Alert, in no acute distress. Mental Status: Oriented to person, place and time. Eyes: Pupils are equal, round, and reactive to light. Ear, Nose, and Throat: Oropharynx clear, mucous membranes moist. Ears and nose without deformities. Trachea midline. Respiratory: Diffuse expiratory wheezing. Cardiovascular: Irregularly irregular rhythm, tachy. Gastrointestinal: Abdomen soft, non-distended, with right-sided abdominal tenderness. Normal bowel sounds. Neurologic: Cranial nerves II-XII are grossly intact bilaterally. No focal neurological deficits. Moves all extremities spontaneously. Skin: Warm, dry. Musculoskeletal: No cyanosis or clubbing. Extremities: No edema. Psychiatric: Normal mood and affect. Results Labs 08/08/23 10:23 08/08/23 10:23 Labs: Laboratory Results - last 24 hr 08/08/23 08/08/23 10:23 13:29 MCV 92.8 MCH 31.9 MCHC 34.4 RDW 12.6 Plt Count 157 L MPV 10.1 Immature Gran % (Auto) 0.6 H Neut % (Auto) 84.8 H Lymph % (Auto) 7.1 L [place] % (Auto) 7.1 Eos % (Auto) 0.1 Baso % (Auto) 0.3 Lymph # (Auto) 0.6 L [place] # (Auto) 0.6 Eos # (Auto) 0.0 Baso # (Auto) 0.0 Abs Immat Gran (auto) 0.05 H Absolute Neuts (auto) 7.7 Absolute Nucleated RBC 0.000 Nucleated RBC % (auto) 0.0 Anion Gap 12 Estim Creat Clear Calc 63.1 Estimated GFR 51 Random Glucose 249 H Lactic Acid 2.8 H* Lactic Acid F/U @ 2Hr 3.3 H* Calcium 9.1 Total Bilirubin 1.2 H AST 21 ALT 25 Alkaline Phosphatase 55 Troponin I High Sens 3.3 2.7 B-Natriuretic Peptide 65 Total Protein 6.9 Albumin 3.9 Influenza Type A (PCR) NEGATIVE Influenza Type B (PCR) NEGATIVE RSV RNA Qual (PCR) NEGATIVE SARS-CoV-2 RNA (RT-PCR) NEGATIVE Imaging Radiologist's Impressions: Impressions Chest X-Ray 08/08/23 10:06 IMPRESSION: Subsegmental atelectasis at the left lung base. No definite pneumonia. Assessment and Plan (1) Atrial fibrillation with RVR: Status: Acute (2) Asthma exacerbation: Status: Acute Plan Pt is a 67-year-old male with a PMH significant for paroxysmal?AFib on Eliquis, moderate persistent asthma, CE intolerant of CPAP, HTN, HLD, vertigo, and GERD who presents to the ED with?SOB and nonproductive cough x6 days. Pt will be admitted to the hospital for treatment further evaluation of AFib with RVR in the setting of acute asthma exacerbation. AFib with RVR In the setting of asthma exacerbation Heart rate as high as 168 Was given metoprolol 5 mg IV x2 doses and diltiazem 10 mg IV in the ED Rate still poorly controlled, jumping into the 120s and 130s during interview and exam Will start on diltiazem drip Continue Eliquis, metoprolol Monitor on telemetry Acute asthma exacerbation Patient with SOB, nonproductive cough, difficulty breathing x6 days Significant wheezing upon auscultation despite treatments in the ED Will treat with Xopenex, Solu-Medrol, loratadine, benzonatate Pt not hypoxic Monitor respiratory status Chest pressure Likely secondary to asthma exacerbation Repeat EKG without ischemic changes Initial troponin 3.3 with repeat flat at 2.7 Pt being monitored on telemetry Lactic acidosis Lactic acid 2.8 with repeat 3.3 Secondary to albuterol use, not sepsis Not indication of bacterial infection: UA negative, CXR without evidence of pneumonia; no fever or leukocytosis No indication to continue antibiotics at this time HTN Continue lisinopril, hydrochlorothiazide Hypothyroidism Continue levothyroxine Mood disorder Continue clonazepam, hydroxyzine, zolpidem HLD Continue statin Vertigo Continue meclizine Full Code Attending:?Dr. Aldana DVT Prophylaxis: On Eliquis Pt will require a hospitalization of at least two nights for treatment of?AFib with RVR in the setting of acute asthma exacerbation. Patient will require hospitalization for treatment with IV diltiazem, breathing treatments, IV steroids, and close monitoring of cardiac function and respiratory status. Quality Stroke Does the patient have a stroke diagnosis?: No VTE Prior VTE?: No VTE Risk Level:: Medical - moderate - high VTE Device Contraindication: Treatment Not Indicated VTE Drug Contraindication: N/A - Med Ordered
[2023-08-08 14:43] LABS: Appearance Urine Clear; Color Urine Yellow; Glucose Urine UA Negative (Negative); Leukocyte Esterase Urine Negative (Negative); Nitrite Urine Negative (Negative); PH 5.5 (5.0-9.0); Specific Gravity - Urine 1.015 (1.005-1.025); Urine Blood Negative (Negative); Urine Ketones Negative (Negative); Urine Protein Negative (Neg-Trace)
[2023-08-08 15:32] LABS: Reflex Lactate? 2 Y
[2023-08-08 15:48] LABS: Cancel Lactic Acid Canceled
--- NOTE | 2023-08-08 17:26 | PHA.MEDREC ---
Pharmacy Consult ? Medication Reconciliation Pharmacy has completed the medication reconciliation.
[2023-08-08] MEDS: 0.9 % Sodium Chloride Flush 3 ML SYRINGE IVFLUSH (18:07)
[2023-08-08] MEDS: levalbuterol HCL 1.25 MG/3 ML VIAL.NEB INHALE (18:48)
--- NOTE | 2023-08-08 19:08 | PC.NURSE ---
this nurse did not see the Cardizem drip ordered bc it did not flag on [employer] and it was not communicated to me by the provider to start the drip. Communicated to RN upstairs.
[2023-08-08] MEDS: dilTIAZem HCL 125 MG in 0.9 % Sodium Chloride 100 ML 10 MG IVCONT (19:55)
[2023-08-08] MEDS: methylPREDNISolone Sod Succ 40 MG/ML VIAL IVPUSH (20:02)
[2023-08-08] MEDS: Benzonatate 100 MG CAPSULE PO (20:03)
[2023-08-08] MEDS: Melatonin 3 MG TABLET 6 MG PO (21:44)
[2023-08-08] MEDS: Acetaminophen 325 MG TABLET 650 MG PO (21:44)
[2023-08-09] VITALS (11 sets, daily range): BP systolic 103–132; BP diastolic 68–83; PULSE 71–98; RESP 18–20; TEMP 36.3–36.8; O2SAT 94–99
--- NOTE | 2023-08-09 00:10 | MHC.PIE ---
P.ABD PAIN I.PT STATES HE HAS ABD PAIN.STATES ATTEMPTED TO MOVE BOWELS BUT ONLY PASSED GAS.ABD IS ROUND AND FIRM,POSITIVE BOWEL SOUNDS.DENIES NAUSEA.DR AMINA MENDES. STATES TO GIVE ANOTHER DOSE OF PRN TYLENOL NOW.MED GIVEN ALONG WITH COLACE. E.PT RESTING COMF AFTER.AWAIT COLACE EFFECT.
[2023-08-09] MEDS: Acetaminophen 325 MG TABLET 650 MG PO ×2 (00:16→09:36)
[2023-08-09] MEDS: Docusate Sodium 100 MG CAPSULE PO (00:17)
[2023-08-09] MEDS: levalbuterol HCL 1.25 MG/3 ML VIAL.NEB INHALE ×5 (00:54→19:45)
[2023-08-09] MEDS: dilTIAZem HCL 125 MG in 0.9 % Sodium Chloride 100 ML 15 MG IVCONT (04:34)
--- NOTE | 2023-08-09 08:46 | MHC.CM.PN ---
CM met with Patient at bedside and addressed IMM with him, providing Patient with the original and a copy has been placed on the chart. CM assisted Patient with the completion of a HCP; he named his Daughter/Gemini Dia as his Agent. Patient lives alone in an apartment and he uses a cane and a walker to assist with mobility. Patient has a [employer] both day and evening hours. Home/resume said services is the goal and CM has initiated and will follow for dc planning. PCP is Dr. Gemini Gotti.
--- NOTE | 2023-08-09 09:11 | P.PNIM_ITS ---
Subjective Subjective Date of Service: 08/09/23 Interval History: sob Physical Exam 2 Vital Signs: Vital Signs: Last Vital Signs Temp 97.6 F 08/09/23 07:37 Pulse 71 08/09/23 08:04 Resp 20 08/09/23 08:04 BP 112/77 08/09/23 07:37 Pulse Ox 94 08/09/23 07:37 O2 Del Method Room Air 08/09/23 07:37 O2 Flow Rate 98 08/08/23 10:00 BMI result Body Mass Index 33.3 General: AO X 3, no acute distress Resp: wheeze bilateral, no accessory muscles used CVS: S1,S2,irregular GI: soft, non tender, non distended Neuro: motor grossly intact, alert Psych: appropriate affect, appropriate insight Objective Data Active Medications Acetaminophen (Acetaminophen 325 Mg Tablet) 650 mg PO Q6H PRN PRN Reason: Pain, Mild (Pain Scale 1-3) Last Admin: 08/09/23 00:16 Dose: 650 mg Documented By: MIRI Apixaban (Apixaban 5 Mg Tablet) 5 mg PO BID [facility] Benzonatate (Benzonatate 100 Mg Capsule) 100 mg PO TID PRN PRN Reason: Cough Last Admin: 08/08/23 20:03 Dose: 100 mg Documented By: JENAE Clonazepam (Clonazepam 1 Mg Tablet) 1 mg PO BID PRN PRN Reason: Anxiety Cyclobenzaprine HCl (Cyclobenzaprine Hcl 10 Mg Tablet) 10 mg PO BEDTIME [facility] Docusate Sodium (Docusate Sodium 100 Mg Capsule) 100 mg PO DAILY PRN PRN Reason: Constipation Last Admin: 08/09/23 00:17 Dose: 100 mg Documented By: MIRI Furosemide (Furosemide 40 Mg Tablet) 40 mg PO Q2D [facility]; Protocol Furosemide (Furosemide 20 Mg Tablet) 60 mg PO Q2D [facility]; Protocol Hydroxyzine HCl (Hydroxyzine Hcl 25 Mg Tablet) 25 mg PO BID PRN PRN Reason: Anxiety Diltiazem HCl 125 mg/ Sodium (Chloride) 125 mls @ 0 mls/hr IVCONT .Q0M [facility]; Protocol Last Titration: 08/09/23 04:36 Dose: 10 mg/hr, 10 mls/hr Documented By: MIRI Levalbuterol HCl (Levalbuterol Hcl 1.25 Mg/3 Ml Vial.Neb) 1.25 mg INHALE RQ4H WHILE AWAKE [facility] Last Admin: 08/09/23 00:54 Dose: 1.25 mg Documented By: NEAL Levalbuterol HCl (Levalbuterol Hcl 1.25 Mg/3 Ml Vial.Neb) 1.25 mg INHALE Q4H PRN PRN Reason: Wheezing Last Admin: 08/09/23 08:02 Dose: 1.25 mg Documented By: JOSE ANGEL Levothyroxine Sodium (Levothyroxine Sodium 100 Mcg Tablet) 100 mcg PO DAILY [facility] Loratadine (Loratadine 10 Mg Tablet) 10 mg PO DAILY [facility] Melatonin (Melatonin 3 Mg Tablet) 6 mg PO BEDTIME PRN PRN Reason: Insomnia Last Admin: 08/08/23 21:44 Dose: 6 mg Documented By: JENAE Methylprednisolone Sodium Succinate (Methylprednisolone Sod Succ 40 Mg/Ml Vial) 40 mg IVPUSH Q12H [facility] Last Admin: 08/08/23 20:02 Dose: 40 mg Documented By: JENAE Metoprolol Succinate (Metoprolol Succinate Er 100 Mg Tab.Er.24h) 200 mg PO DAILY [facility]; Protocol Non-Formulary Medication (Rdxuiw-Lmtbrhds-Ilwhega [Creon]) 2 cap PO QID [facility] Non-Formulary Medication (Pantoprazole) 40 mg PO DAILY [facility] Non-Formulary Medication (Rosuvastatin) 40 mg PO DAILY [facility] Non-Formulary Medication (Simethicone) 180 mg PO QID [facility] Non-Formulary Medication (Vitamin E (Dl, Acetate)) 45 mg PO DAILY [facility] Ondansetron HCl (Ondansetron Hcl 4 Mg/2 Ml Vial) 4 mg IVPUSH Q8H PRN PRN Reason: Nausea and Vomiting Sodium Chloride (0.9 % Sodium Chloride Flush 3 Ml Syringe) 3 ml IVFLUSH QSHIFT [facility] Last Admin: 08/09/23 00:20 Dose: Not Given Documented By: MIRI Non-Admin Reason: IV Running Vitamin D (Cholecalciferol (Vitamin D3) 25 Mcg Tablet) 50 mcg PO DAILY [facility] Zolpidem Tartrate (Zolpidem Tartrate 5 Mg Tablet) 10 mg PO BEDTIME PRN PRN Reason: Insomnia Labs 08/08/23 10:23 08/08/23 10:23 Labs: Laboratory Results - last 24 hr 08/08/23 08/08/23 08/08/23 10:23 13:29 14:32 MCV 92.8 MCH 31.9 MCHC 34.4 RDW 12.6 Plt Count 157 L MPV 10.1 Immature Gran % (Auto) 0.6 H Neut % (Auto) 84.8 H Lymph % (Auto) 7.1 L [place] % (Auto) 7.1 Eos % (Auto) 0.1 Baso % (Auto) 0.3 Lymph # (Auto) 0.6 L [place] # (Auto) 0.6 Eos # (Auto) 0.0 Baso # (Auto) 0.0 Abs Immat Gran (auto) 0.05 H Absolute Neuts (auto) 7.7 Absolute Nucleated RBC 0.000 Nucleated RBC % (auto) 0.0 Anion Gap 12 Estim Creat Clear Calc 63.1 Estimated GFR 51 Random Glucose 249 H Lactic Acid 2.8 H* Lactic Acid F/U @ 2Hr 3.3 H* Calcium 9.1 Total Bilirubin 1.2 H AST 21 ALT 25 Alkaline Phosphatase 55 Troponin I High Sens 3.3 2.7 B-Natriuretic Peptide 65 Total Protein 6.9 Albumin 3.9 Urine Color Yellow Urine Appearance Clear Urine pH 5.5 Ur Specific [place] 1.015 Urine Protein Negative Urine Glucose (UA) Negative Urine Ketones Negative Urine Blood Negative Urine Nitrite Negative Ur Leukocyte Esterase Negative Influenza Type A (PCR) NEGATIVE Influenza Type B (PCR) NEGATIVE RSV RNA Qual (PCR) NEGATIVE SARS-CoV-2 RNA (RT-PCR) NEGATIVE Assessment and Plan (1) Asthma exacerbation: Status: Acute Plan 67M PMH paroxysmal AFib on Eliquis, moderate persistent asthma, CE intolerant of CPAP, HTN, HLD, vertigo, and GERD who presented to the ED with SOB and nonproductive cough x6 days, found to have afib with rvr paroxysmal AFib with RVR rate controlled on iv cardizem, change back to po toprol continue eliquis moderate persistent asthma with acute decompensation steroids, nebs Chest pressure resolved, troponin negative Lactic acidosis Secondary to albuterol use, not sepsis HTN Continue lisinopril, hydrochlorothiazide, toprol Hypothyroidism Continue levothyroxine Mood disorder Continue clonazepam, hydroxyzine, zolpidem HLD Continue statin Vertigo Continue meclizine Full Code DVT Prophylaxis: On Eliquis reason for continued hospitalization: still wheezy, sob Quality Stroke Does the patient have a stroke diagnosis?: No VTE Prior VTE?: No VTE Risk Level:: Medical - moderate - high VTE Device Contraindication: Treatment Not Indicated VTE Drug Contraindication: N/A - Med Ordered
[2023-08-09] MEDS: methylPREDNISolone Sod Succ 40 MG/ML VIAL IVPUSH ×2 (09:35→20:19)
[2023-08-09] MEDS: guaiFENesin DM 100/10/5 ML 5 ML SYRUP PO (09:35)
[2023-08-09] MEDS: Metoprolol Succinate ER 100 MG TAB.ER.24H 200 MG PO (09:36)
[2023-08-09] MEDS: clonazePAM 1 MG TABLET PO (09:36)
[2023-08-09] MEDS: Furosemide 40 MG TABLET PO (09:36)
[2023-08-09] MEDS: Apixaban 5 MG TABLET PO ×2 (09:36→20:14)
[2023-08-09] MEDS: 0.9 % Sodium Chloride Flush 3 ML SYRINGE IVFLUSH ×3 (09:36→20:14)
[2023-08-09] MEDS: Levothyroxine Sodium 100 MCG TABLET PO (09:36)
[2023-08-09] MEDS: oxyCODONE HCl Immed Release 5 MG TABLET PO ×2 (12:23→22:23)
[2023-08-09] MEDS: Simethicone 80 MG TAB.CHEW 160 MG PO ×3 (14:40→20:13)
[2023-08-09] MEDS: Cyclobenzaprine HCl 10 MG TABLET PO (20:14)
[2023-08-10 03:10] VITALS: BP 129/62; PULSE 90; RESP 20; TEMP 36.4; O2SAT 95
[2023-08-10] MEDS: Omeprazole 20 MG CAPSULE.DR PO (05:39)
[2023-08-10 07:41] VITALS: BP 137/90; PULSE 99; RESP 18; TEMP 35.8; O2SAT 100
[2023-08-10] MEDS: levalbuterol HCL 1.25 MG/3 ML VIAL.NEB INHALE (07:46)
[2023-08-10 07:47] VITALS: PULSE 94; RESP 18; O2SAT 98
--- NOTE | 2023-08-10 09:16 | PM.DS ---
DS: Providers Provider Date of Service: 08/10/23 Date of admission: 08/08/23 15:43 Primary care physician: Gemini Chung MD DS: Diagnosis Discharge Diagnosis (1) Asthma exacerbation: Status: Acute DS: Summary Hospital Course Hospital Course: from initial hpi: 67-year-old male with a PMH significant for paroxysmal?AFib on Eliquis, moderate persistent asthma, CE intolerant of CPAP, HTN, HLD, vertigo, and GERD who presents to the ED with?SOB and nonproductive cough x6 days. Patient also complains of chest pressure without pain or palpitations x3 days and lower right-sided back pain for the past 2 days, worse with breathing deeply or coughing. Patient additionally complains of RUQ and right-sided abdominal pain separate from lower right back pain that started while in the ED 20-30 minutes ago denies nausea, vomiting. No diarrhea. Patient denies ever having similar symptoms this bad before, and denies of her being admitted to the hospital for asthma exacerbation. Denies fever or chills. In the ED pt was tachycardic up to 136, tachypneic up to 26, satting at 96% on RA. Labs were significant for random glucose 249, lactic acid 2.8 with repeat 3.3, and total bilirubin 1.2. Initial troponin 3.3 with repeat 2.7. No leukocytosis. Stable H&H 13.8/40.1. No significant electrolyte abnormalities. Tested negative for flu, RSV, COVID. CXR showed subsegmental atelectasis at the left lung base with no definite pneumonia. Initial EKG demonstrated AFib with RVR of [address] depressions in V2-V6; repeat EKG showed AFib with RVR of 118 not evidence of significant ST elevations or depressions.. Pt was treated with DuoNeb, Solu-Medrol, ceftriaxone, doxycycline, morphine, metoprolol 5 mg IV x2 doses, diltiazem 10 mg IV, and IVF. Pt will be admitted to the hospital for treatment further evaluation of AFib with RVR in the setting of acute asthma exacerbation. hospital course: Patient was admitted for paroxysmal atrial fibrillation with rapid ventricular response. He was initially started on IV Cardizem infusion and heart rate became better controlled he was transitioned back to his oral metoprolol succinate 200 mg daily and heart rate remained controlled. Was continued on his Eliquis. For moderate persistent asthma with acute decompensation/COPD was treated with IV steroids and nebulizers. He is still wheezy at time of discharge but feeling much better and will continue 5 more days of prednisone 40 mg daily at home. For hypertension was continued on lisinopril, hydrochlorothiazide, Toprol. For hypothyroidism was continue Synthroid. For mood disorder was continued on Klonopin, hydroxyzine. For hyperlipidemia was continue on statin. For obesity weight loss recommended. Patient is feeling better will be discharged home. Time Attestation Discharge Coordination Time (in mins): 35 Quality: Safe Use of Opioids Does Pt have an Active Cancer Diagnosis on the Problem List?: No Quality: Stroke Does the patient have a stroke diagnosis?: No Physical Exam Vital Signs: Vital Signs: Last Vital Signs Temp 96.5 F L 08/10/23 07:41 Pulse 94 08/10/23 07:47 Resp 18 08/10/23 07:47 BP 137/90 H 08/10/23 07:41 Pulse Ox 100 08/10/23 07:41 O2 Del Method Room Air 08/10/23 07:41 O2 Flow Rate 98 08/08/23 10:00 BMI result Body Mass Index 33.3 General: AO X 3, no acute distress Resp: still some mild wheeze bilateral, no accessory muscles used CVS: S1,S2,irregular GI: soft, non tender, non distended Neuro: motor grossly intact, alert Psych: appropriate affect, appropriate insight DS: Data Data Completed and Pending Labs on day of discharge: Preliminary micro results at discharge 08/08/23 10:38 Blood Culture - Preliminary Blood - Venous No growth after 24 hours. 08/08/23 10:23 Blood Culture - Preliminary Blood - Venous No growth after 24 hours. Discharge Plan Discharge Anticipated Discharge Date/Time: 08/10/23 09:14 Patient Disposition: Home, Self-Care Discharge Diagnosis: asthma/copd, afib rvr Referrals: Gemini Chavez MD [Primary Care Provider] - 1 Week Discharge Medications: New prednisone 20 mg tablet 40 mg PO DAILY Qty: 10 0RF Continued albuterol sulfate 90 mcg/actuation HFA aerosol inhaler 2 puff inhalation Q6H PRN (Reason: Shortness Of Breath) Qty: 1 0RF pantoprazole 40 mg tablet,delayed release (DR/EC) 40 mg PO DAILY epinephrine [EpiPen 2-Blaise] 0.3 mg/0.3 mL auto-injector 0.3 mg IM Q4H PRN (Reason: anaphylaxis) Qty: 2 0RF cyclobenzaprine 10 mg tablet 10 mg PO BEDTIME furosemide 40 mg tablet 40 mg PO Q2D furosemide 40 mg tablet 60 mg PO Q2D vitamin E (dl, acetate) 45 mg (100 unit) capsule 45 mg PO DAILY diclofenac sodium 1 % gel 2 g topical QID fluticasone propion-salmeterol [Wixela Inhub] 250-50 mcg/dose blister with device 1 inh PO BID prednisone 20 mg tablet 20 mg PO DAILY Creon 36,000-114,000- 180,000 unit capsule,delayed release(DR/EC) 2 cap PO QID loratadine 10 mg tablet 10 mg PO DAILY zolpidem 10 mg tablet 10 mg PO BEDTIME PRN (Reason: Insomnia) hydroxyzine pamoate 25 mg capsule 25 mg PO BID PRN (Reason: Anxiety) cholecalciferol (vitamin D3) 50 mcg (2,000 unit) tablet 50 mcg PO DAILY lisinopril 40 mg tablet 40 mg PO DAILY apixaban 5 mg tablet 5 mg PO BID clonazepam 1 mg tablet 1 mg PO BID PRN (Reason: Anxiety) rosuvastatin 40 mg tablet 40 mg PO DAILY metoprolol succinate 200 mg tablet extended release 24 hr 200 mg PO DAILY levothyroxine 100 mcg tablet 100 mcg PO DAILY albuterol sulfate 2.5 mg /3 mL (0.083 %) solution for nebulization 3 mg inhalation QID PRN (Reason: Shortness Of Breath Or Wheezing) simethicone 180 mg capsule 180 mg PO QID 30 Days Qty: 120 6RF Rx Instructions: after meals Discharge Orders: Discharge Order (Routine); Ordered 08/10/23 Ordered By: Daniel Garza Diet: Advance to usual diet Activity on Discharge: As tolerated Stand Alone Forms: Patient Portal Discharge page Care Plan Goals: recovery Health Concerns: asthma/copd Plan of Treatment: prednisone 5 more days Assessment: see above
--- NOTE | 2023-08-10 09:34 | MHC.CM.PN ---
Patient has been medically cleared for dc to home today, self care.
[2023-08-10] MEDS: 0.9 % Sodium Chloride Flush 3 ML SYRINGE IVFLUSH (09:52)
[2023-08-10] MEDS: Atorvastatin Calcium 80 MG TABLET PO (09:52)
[2023-08-10] MEDS: Apixaban 5 MG TABLET PO (09:52)
[2023-08-10] MEDS: Furosemide 20 MG TABLET 60 MG PO (09:53)
[2023-08-10] MEDS: Cholecalciferol (Vitamin D3) 25 MCG TABLET 50 MCG PO (09:53)
[2023-08-10] MEDS: Levothyroxine Sodium 100 MCG TABLET PO (09:53)
[2023-08-10] MEDS: Simethicone 80 MG TAB.CHEW 160 MG PO (09:53)
[2023-08-10] MEDS: methylPREDNISolone Sod Succ 40 MG/ML VIAL IVPUSH (09:53)
[2023-08-10] MEDS: Loratadine 10 MG TABLET PO (09:53)
[2023-08-10] MEDS: Metoprolol Succinate ER 100 MG TAB.ER.24H 200 MG PO (09:53)
[2023-08-10 10:36] VITALS: BP 143/61; PULSE 67; RESP 20; TEMP 35.8; O2SAT 97
== END 2023-08-10 11:05 | disposition home or self-care (01) | DRG 202 ==
LOC: HO.ED 14:30 → HO.EDOVER 15:54 → HO.IMC 18:04
PROVIDERS: Registered Nurse Emergency; Admitting Provider Student in an Organized Health Care Education/Training Program; Emergency Provider Student in an Organized Health Care Education/Training Program; PCP Internal Medicine; Visit Provider Internal Medicine
DX: J45.41 Moderate persistent asthma with (acute) exacerbation (principal); J44.1 Chronic obstructive pulmonary disease with (acute) exacerbation; I48.0 Paroxysmal atrial fibrillation; I10 Essential (primary) hypertension; E78.5 Hyperlipidemia, unspecified; R42 Dizziness and giddiness; Z20.822 Contact with and (suspected) exposure to COVID-19; E03.9 Hypothyroidism, unspecified; Z91.041 Radiographic dye allergy status; Z79.01 Long term (current) use of anticoagulants; Z79.51 Long term (current) use of inhaled steroids; Z79.52 Long term (current) use of systemic steroids; Z79.890 Hormone replacement therapy; Z79.899 Other long term (current) drug therapy
CPT/HCPCS: 0241U; 36415; 71046; 80053; 81003; 83605; 83880; 84484; 85025; 87040; 93005; 94640; 99285; J0696; J2270; J2920; J2930

== ENCOUNTER → 2023-08-08 09:57 | Outpatient (BNV) | payer OTHER, SELFPAY | PROVIDERS: Admitting Provider Student in an Organized Health Care Education/Training Program; Emergency Provider Student in an Organized Health Care Education/Training Program; PCP Internal Medicine; Visit Provider Internal Medicine Cardiovascular Disease | DX: R94.31 Abnormal electrocardiogram [ECG] [EKG] (principal) | CPT/HCPCS: 93010 ==

== ENCOUNTER → 2023-08-08 15:43 | Outpatient (BNV) | payer OTHER, SELFPAY | PROVIDERS: Admitting Provider Student in an Organized Health Care Education/Training Program; Emergency Provider Student in an Organized Health Care Education/Training Program; PCP Internal Medicine; Visit Provider Student in an Organized Health Care Education/Training Program | DX: J45.41 Moderate persistent asthma with (acute) exacerbation (principal) | CPT/HCPCS: 99223; 99233; 99239 ==

== ENCOUNTER 2023-09-03 10:45 | Outpatient (REF) | payer OTHER, SELFPAY ==
[2023-09-03 12:40] LABS: TSH reflex Free T4 0.34 uIU/mL (0.32-4.0)
== END 2023-09-03 10:46 | disposition home or self-care (01) ==
LOC: HO.HHCL 10:45
PROVIDERS: Visit Provider Internal Medicine
DX: R63.5 Abnormal weight gain (principal)
CPT/HCPCS: 36415; 84443

== ENCOUNTER 2023-09-12 10:20 | Outpatient (AMB) | payer OTHER, SELFPAY ==
--- NOTE | 2023-09-12 10:22 | A.OFFVIS_ITS ---
Vital Signs 09/12/23 10:23 Height 5 ft 5 in Weight 226 lb 3.108 oz BMI 37.6 BP 107/71 Blood Pressure Location Lt brachial Position Sitting Pulse 80 Pulse Source Pulse Oximeter Pulse Oximetry (%) 97 Oxygen Delivery Method Room Air Intake Visit Reasons: 6 Month Follow up Intake Note: Min presents in the office today in 6 months follow up of GERD and abdominal bloating. CC: Patient underwent EGD with Dr. Carnes on 04/01/23. Patient states that he is not eating much but continues to gain weight. He was seen in the ER on 08/07 with MOSAIC FLOOR LAYER complications. Patient does not know what medications he is taking. 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 He continues to have bloating and gas although he says that since we started the Creon and the simethicone his symptoms have improved by about 50%. I think because he is a big julio c we need to increase the dose and will have him take 2 caps 4 times of the Creon a day. He is agreeable to this. He continues on his omeprazole with good control of his GERD. His last colonoscopy was in 2012 any received to phone call in a angle issue and he says ?all a understood with the word colonoscopy. ? Obviously he needs to be scheduled for screening and we will get this going. There are no prior problems with anesthesia or sedation. He has COPD that is well controlled he denies cardiac problems. There are no infectious disease problems. There is no known family history of colorectal cancer or polyps. Return office visit in 8 weeks to evaluate his response the Creon of course I will see him after the colonoscopy. (2) Abdominal bloating: Code(s): R14.0 - Abdominal distension (gaseous) (3) GERD (gastroesophageal reflux disease): Code(s): K21.9 - Gastro-esophageal reflux disease without esophagitis (4) Colon cancer screening: Code(s): Z12.11 - Encounter for screening for malignant neoplasm of colon (5) Pre-op examination: Code(s): Z01.818 - Encounter for other preprocedural examination (6) Hepatic steatosis: Comment: LIVER APPEARS NORMAL ON CAT SCAN 11/2021 SO HE IS REFERRED BACK TO HIS PRIMARY CARE PROVIDER FOR MONITORING OF HIS TRANSAMINASES. 11/2019 hepatic panel shows an elevated total bilirubin of 1.2 direct normal at 0.5, AST/ALT is 29/49 with a normal alk-phos, BNP is elevated at 343, TSH is low at 0.24 with no T4 yet available, autoimmune workup is negative, alpha fetoprotein from 05/2019 was 2.6, he is immune to hepatitis a is screen for hepatitis B and C is negative, HIV is also negative. * CURRENT Laboratory Tests Total Bili 0.7 0.0-1.0 mg/dL AST (GOT) 24 5-37 U/L ALT (GPT) 30 0-40 U/L Protein, Total 7.4 6.5-8.0 g/dL Alb 3.8 3.5-5.0 g/dL Alk Phos 52 39-117 U/L 10/03/22-[address]: Gemini Chavez MD ORDERED: Alpha Feto Test Result Flag Reference Site AFPTM 2.7 ULTRASOUND OF THE ABDOMEN 08/20/22 IMPRESSION: 1. There is generalized increase in hepatic echotexture, consistent with fatty infiltration or hepatocellular disease. Please correlate clinically. No focal hepatic mass or intrahepatic biliary dilatation is seen. 2. A 4 mm nonobstructing right renal calculus is seen. No left renal calculus is seen. No hydronephrosis is noted bilaterally. 3. There are benign, simple bilateral renal cysts, for which no imaging follow-up recommended. 4. Technically limited ultrasound examination of the pancreas and abdominal aorta. Code(s): K76.0 - Fatty (change of) liver, not elsewhere classified Orders: Orders Colonoscopy - GI Use Only 01/23/23 Z12.11 - Encounter for screening for malignant neoplasm of colon Medications: New peg 3350-electrolytes 236-22.74-6.74 -5.86 gram (Golytely) until fecal effluent is clear; do not exceed a total volume of 2,000 mL 240 mL PO Q10M 4,000 mL 0RF 1 day Z12.11 - Encounter for screening for malignant neoplasm of colon Changed From pjdelt-xvintawp-xjqqjlb 36,000-114,000- 180,000 unit administer with meals and/or snacks 1 cap PO QID 30 days 120 caps 3RF K86.89 - Other specified diseases of pancreas To zryoty-fjsdmjsb-cekczxt 36,000-114,000- 180,000 unit (Creon) administer with meals and/or snacks 2 caps PO QID 240 caps 3RF 30 days K86.89 - Other specified diseases of pancreas Refilled simethicone after meals 180 mg PO QID 120 caps 6RF 30 days R14.0 - Abdominal distension (gaseous) CORRESPONDENCE On 09/09/23 @ 11:46 Noni Guillermo Wrote To [facility] (2) It is okay I will see him. On 09/09/23 @ 09:24 Vy Waters Wrote To [facility] I called the patient and told him that since he was seen by Dr. Carnes and underwent a procedure with him he should follow up with him. The patient almost started crying and saying no I don't want to loose my doctor please . I went because the sent me to him but I don't even know that doctor. He wants to continue following up with you. Please advise. On 09/09/23 @ 08:24 Noni Guillermo Wrote To Vy Waters I am just is confused as you are, but reading Dr. Carnes note looks like he should probably just follow with Dr. Carnes in cancel the appointment with me. I have no idea why he ended up with Dr. Carnes On 09/08/23 @ 17:27 Vy Waters Wrote To [facility] I'm a little confused, it seems like this patient saw Dr. Carnes in his office and underwent EGD with him on 04/01/23. I'm not sure if you're aware or he should continue following up with Dr. Carnes. Please advise EGD-performed by [facility] 04/01/23 FINDINGS: Esophagus: The esophagus was normal. There was an irregular EG junction, which was biopsied. Stomach: The stomach showed no evidence of masses or ulcers. The antrum was slightly nodular. This was biopsied. Duodenum: The bulb and 2nd portion were normal. IMPRESSION: Gastroesophageal reflux disease. RECOMMENDATION: Follow up the biopsy results. Larry Carnes MD BIOPSY Received: 04/01/23 Diagnosis A. Gastric antrum, biopsy: Gastric antral mucosa with mild reactive changes, congestion, and focal minimal chronic inactive inflammation; negative for H pylori, intestinal metaplasia and dysplasia. B. Gastroesophageal junction, biopsy: Squamocolumnar mucosa with focal mild chronic active inflammation; negative for intestinal metaplasia and dysplasia TODAY'S VISIT TONGAN# Marta Live He continues to have gas and bloating and wants to know if there is anything mor e we can do even though his symptoms have been 50% better since we started Creon and simethicone. He denies constipation although we might try giving him a laxative in the future if this does not resolve. Sometimes people do not realize they are having incomplete evacuation. Before we do that I think I will try treating him for small-bowel bacterial overgrowth I will give him a course of Flagyl and recommend that he get a probiotic supplement. He continues on his pantoprazole with good control of his GERD. Our schedulers thought that he was going to have the colonoscopy through Dr. Saul aguiar office but he only had an upper endoscopy and he would prefer to stay with our service. Apparently there was some confusion through his primary care office when they referred him to a new service for hoarseness of voice not realize he is already seeing gastroenterology. Return office visit in 6 weeks to see how he is feeling. [facility] Medical History Hoarseness Dysphagia Throat disorder Bronchitis CHF (congestive heart failure) Afib Allergic rhinitis COPD (chronic obstructive pulmonary disease) CE (obstructive sleep apnea) Obesity (BMI 30-39.9) Hypothyroid Anxiety Palpitation HTN (hypertension) Surgical History Hx of umbilical hernia repair History of surgery on arm Hx of eye surgery Hx of colonoscopy Hx of knee surgery Hx of tonsillectomy Family History Family/Other No problems noted. Social History Household Members: None Housing: Apartment Do you presently have visiting nurse or other home services: Yes Alcohol intake: former Patient Tobacco Use Status: Never used Tobacco service: No Review of Systems Const Denies fatigue, Denies fever(s), Denies night sweats, Denies poor appetite and Denies weight loss Eyes Details: glasses Reports requires corrective lenses ENT Reports Normal hearing present, Denies dental pain, Denies dysphagia, Denies hearing loss, Denies mouth pain, Denies odynophagia, Denies throat swelling, D enies tongue swelling and Reports other (Dentition adequate) Card Reports no additional complaints Resp Reports no additional complaints GI Details: Denies abdominal pain, Denies melena, Reports bloating, Denies hematochezia, Denies constipation, Denies GI cramping, Denies dysphagia, Denies excessive flatus, Denies early satiety, Reports heartburn, Denies diarrhea, Denies nausea, Denies odynophagia, Denies vomiting and Denies hematemesis Skin/Breast Denies pruritus, Denies lesions, Denies rash and Denies jaundice Neuro Reports Normal hearing present and Denies Abnormal speech present Endo Denies fatigue Aller/Immun Denies throat swelling and Denies tongue swelling Physical Exam Vital Signs: Last Vital Signs Pulse 80 09/12/23 10:23 BP 107/71 09/12/23 10:23 Pulse Ox 97 09/12/23 10:23 Oxygen Delivery Method Room Air 09/12/23 10:23 BMI result Body Mass Index 37.6 Const General: cooperative, no acute distress, well developed and well groomed Nutritional Appearance: well nourished and obese Orientation/consciousness: oriented to person, oriented to place and oriented to time Limitations: language barrier and ambulation with cane HEENT Head: Yes normocephalic and Yes atraumatic Eyes General: appearance normal, both eyes and all related structures Pupils: Equal, round and reactive pupils present Neck Neck: Yes normal visual inspection and Yes no lymphadenopathy Thyroid: Thyroid normal Resp Effort & Inspection: normal respiratory effort and able to speak in complete sentences Auscultation: clear to auscultation bilaterally Cardio Rate: regular rate Rhythm: regular rhythm Heart sounds: Normal, physiologic split S2 sound present Peripheral pulses: radial pulses present and posterior tibial pulses present GI Inspection: Yes distended, Yes Abdominal panniculus present and Yes obesity Palpation (GI): Soft to palpation, nontender, no guarding, not rigid and No hepatosplenomegaly present Percussion: Yes normal to percussion Auscultation: normal bowel sounds Rectal Exam - Male: Yes deferred Skin General skin exam: no rashes or lesions noted, turgor normal, skin not dry, no jaundice, No spider nevi and no striae Rashes: no rashes Nails: normal Neuro General: oriented to person, oriented to place and oriented to time Cranial nerves: Yes Equal, round and reactive pupils present and Yes Normal hearing present Speech: No Abnormal speech present Extrem General: Yes normal to inspection, No clubbing, No cyanosis and No edema Psych Appearance: grossly normal and well kempt Mental Status: mental status grossly normal Speech and movement: Normal speech and movement present Affect: normal affect Attitude: cooperative Thought process: Normal thought process present and not confabulating Thought content: Normal thought content present Insight: Limited insight present (Psych) Judgement: Limited judgement present (Psych) Results Reviewed Results Reviewed: EGD-performed by [facility] 04/01/23 FINDINGS: Esophagus: The esophagus was normal. There was an irregular EG junction, which was biopsied. Stomach: The stomach showed no evidence of masses or ulcers. The antrum was slightly nodular. This was biopsied. Duodenum: The bulb and 2nd portion were normal. IMPRESSION: Gastroesophageal reflux disease. RECOMMENDATION: Follow up the biopsy results. Larry Carnes MD BIOPSY Received: 04/01/23 Diagnosis A. Gastric antrum, biopsy: Gastric antral mucosa with mild reactive changes, congestion, and focal minimal chronic inactive inflammation; negative for H pylori, intestinal metaplasia and dysplasia. B. Gastroesophageal junction, biopsy: Squamocolumnar mucosa with focal mild chronic active inflammation; negative for intestinal metaplasia and dysplasia Assessment & Plan Assessment & Plan (1) Pancreatic insufficiency: Code(s): K86.89 - Other specified diseases of pancreas Category: Medical (2) Abdominal bloating: Code(s): R14.0 - Abdominal distension (gaseous) Category: Medical (3) GERD (gastroesophageal reflux disease): Code(s): K21.9 - Gastro-esophageal reflux disease without esophagitis Category: Medical Plan TONGAN# Brigitteira Live He continues to have gas and bloating and wants to know if there is anything more we can do even though his symptoms have been 50% better since we started Creon and simethicone. He denies constipation although we might try giving him a laxative in the future if this does not resolve. Sometimes people do not realize they are having incomplete evacuation. Before we do that I think I will try treating him for small-bowel bacterial overgrowth I will give him a course of Flagyl and recommend that he get a probiotic supplement. He continues on his pantoprazole with good control of his GERD. Our schedulers thought that he was going to have the colonoscopy through Dr. Carnes office but he only had an upper endoscopy and he would prefer to stay with our service. Apparently there was some confusion through his primary care office when they referred him to a new service for hoarseness of voice not realize he is already seeing gastroenterology. Return office visit in 6 weeks to see how he is feeling. Medications: New metronidazole 500 mg PO TID 10 days 30 tabs 0RF L.acidoph,saliva-B.bif-S.therm 175 mg (Acidophilus Probiotic Blend) 1 cap PO DAILY 30 caps 6RF K86.89 - Other specified diseases of pancreas, R14.0 - Abdominal distension (gaseous) pantoprazole 40 mg PO DAILY 30 tabs 6RF Refilled simethicone after meals 180 mg PO QID 30 days 120 caps 6RF R14.0 - Abdominal distension (gaseous) Coding Level of Care Code Est Pt Level 3 (00699) Diagnoses Pancreatic insufficiency K86.89 Abdominal bloating R14.0 GERD (gastroesophageal reflux disease) K21.9
[2023-09-12 10:23] VITALS: BP 107/71; PULSE 80; O2SAT 97; BMI 37.6
== END 2023-09-12 11:14 | disposition home or self-care (01) ==
PROVIDERS: PCP Internal Medicine; Visit Provider Nurse Practitioner
DX: K86.89 Other specified diseases of pancreas (principal); R14.0 Abdominal distension (gaseous); K21.9 Gastro-esophageal reflux disease without esophagitis
CPT/HCPCS: 99213

== ENCOUNTER → 2023-09-12 10:20 | Outpatient (BNVA) | payer OTHER, SELFPAY | PROVIDERS: PCP Internal Medicine; Visit Provider Nurse Practitioner | DX: K86.89 Other specified diseases of pancreas (principal); R14.0 Abdominal distension (gaseous); K21.9 Gastro-esophageal reflux disease without esophagitis | CPT/HCPCS: 99212 ==

== ENCOUNTER 2023-09-16 06:21 | Outpatient (REF) | payer OTHER, SELFPAY ==
[2023-09-16 07:07] LABS: Anion Gap 15 (12-20); Blood Urea Nitrogen 31 mg/dL (9-16); Calcium 9.6 mg/dL (8.4-10.2); Carbon Dioxide 29 mmol/L (22-29); Chloride 102 mmol/L (96-108); Estimated Glomerular Filt Rate 44; Glucose Random 126 mg/dL (60-115); Potassium 4.1 mmol/L (3.3-5.1); Sodium 142 mmol/L (135-145)
[2023-09-16 07:13] LABS: B Type Natriuretic Peptide 77 pg/mL (<100)
== END 2023-09-16 06:22 | disposition home or self-care (01) ==
LOC: HO.LAB 06:21
PROVIDERS: PCP Internal Medicine; Visit Provider Internal Medicine Cardiovascular Disease
DX: R60.9 Edema, unspecified (principal)
CPT/HCPCS: 36415; 80048; 83880

== ENCOUNTER 2023-11-10 09:47 | Outpatient (AMB) | payer OTHER, SELFPAY ==
[2023-11-10 10:44] VITALS: BP 102/64; PULSE 95; O2SAT 98; BMI 41.1
--- NOTE | 2023-11-10 10:44 | A.OFFVIS_ITS ---
Vital Signs 11/10/23 10:44 Height 5 ft 3 in Weight 232 lb BMI 41.1 BP 102/64 Blood Pressure Location Lt brachial Position Sitting Pulse 95 Pulse Source Pulse Oximeter Pulse Oximetry (%) 98 Oxygen Delivery Method Room Air Intake Visit Reasons: COPD Intake Note: pt is here for follow up and states his breathing is not good, and is bad all the time. Dev Ops Engineer Required: Yes Dev Ops Engineer Services: Dev Ops Engineer Present Dev Ops Engineer Name: Malena Allergies Iodinated Contrast Media [CONTRAST, IV] Allergy (Unknown, Verified 11/10/23 10:50) HIVES kiwi [KIWI] Allergy (Unknown, Verified 11/10/23 10:50) THROAT SWELLING Medication List - Last Reconciled 11/10/23 by Curt Marroquin MD albuterol sulfate 3 mg inhalation QID PRN albuterol sulfate 90 mcg/actuation (Ventolin HFA) 2 inhalations PO Q6H PRN apixaban 5 mg PO BID cholecalciferol (vitamin D3) 50 mcg PO DAILY clonazepam 1 mg PO BID PRN cyclobenzaprine 10 mg PO BEDTIME diclofenac sodium 1% 2 grams topical QID epinephrine (EpiPen 2-Blaise) 0.3 mg (0.3 mL) IM Q4H PRN fluticasone propion-salmeterol 250-50 mcg/dose (Wixela Inhub) 1 inh PO BID furosemide 40 mg PO Q2D furosemide 60 mg PO Q2D hydroxyzine pamoate 25 mg PO BID PRN L.acidoph,saliva-B.bif-S.therm 175 mg (Acidophilus Probiotic Blend) 1 cap PO DAILY levothyroxine 100 mcg PO DAILY emghmx-plpqvukb-kereemn 36,000-114,000- 180,000 unit (Creon) 2 caps PO QID lisinopril 40 mg PO DAILY loratadine 10 mg PO DAILY metoprolol succinate ER 200 mg PO DAILY metronidazole 500 mg PO TID 10 days pantoprazole 40 mg PO DAILY prednisone 20 mg PO DAILY rosuvastatin 40 mg PO DAILY simethicone 180 mg PO QID 30 days vitamin E (dl, acetate) 45 mg PO DAILY zolpidem 10 mg PO BEDTIME PRN Do you need a note to return to daycare/school/sports/work: No HPI HPI COPD: Details: Min is 67 years old very nice gentleman, who comes. For follow-up after 6 months He has been doing well except for the fact that lately he is becoming more short of breath on walking. Also complains of increased bouts of cough. He is nonsmoker. He remains grossly obese, and does have history of obstructive sleep apnea, but not able to use the CPAP. He claims that he tries to sleep in lateral position and does get 6-7 hours of sleep at night. He remains somewhat tired during the daytime, but denies being overly sleepy. Lately he has put on weight, and thus he is getting more short of breath on walking around. He say is that he has put on more weight since his diuretic therapy was stopped. For his breathing he continues to use Wixela 250-51 inhalation b.i.d.. He does have Incruse Ellipta at home but he really does not need to use it. He also has the albuterol HFA on hand but hardly needs to use it. His shortness of breath is mainly when he walks around, and seems to be coinciding with increase in his weight. [facility] Medical History Hoarseness Dysphagia Throat disorder Bronchitis CHF (congestive heart failure) Afib Allergic rhinitis COPD (chronic obstructive pulmonary disease) CE (obstructive sleep apnea) Obesity (BMI 30-39.9) Hypothyroid Anxiety Palpitation HTN (hypertension) Surgical History Hx of umbilical hernia repair History of surgery on arm Hx of eye surgery Hx of colonoscopy Hx of knee surgery Hx of tonsillectomy Family History Family/Other No problems noted. Social History Household Members: None Housing: Apartment Do you presently have visiting nurse or other home services: Yes Alcohol intake: former Patient Tobacco Use Status: Never used Tobacco service: No Review of Systems Const All systems reviewed & are unremarkable except as noted in HPI and below Eyes Reports no additional complaints ENT Reports nasal congestion (Mild intermittent) Card Denies chest pain, Reports irregular heart rhythm (Atrial fib) and Denies leg edema Resp Reports as per HPI GI Reports no additional complaints Reports no additional complaints Musc Reports abnormal gait (Uses cane), Reports back pain and Reports arthralgias Skin/Breast Reports system reviewed and no additional complaints, except as documented Neuro Reports no additional complaints and Reports abnormal gait (Uses cane) Psych Reports no additional complaints Physical Exam Vital Signs: Last Vital Signs Pulse 95 11/10/23 10:44 BP 102/64 11/10/23 10:44 Pulse Ox 98 11/10/23 10:44 Oxygen Delivery Method Room Air 11/10/23 10:44 BMI result Body Mass Index 41.1 Const General: comfortable, no acute distress, alert and awake Orientation/consciousness: patient oriented x3 HEENT Head: Yes normal to inspection General nose exam: No nasal polyps present and No nasal discharge present Face and sinus: Yes sinuses nontender Mouth: oropharynx normal Throat: Yes posterior oropharynx normal Eyes General: appearance normal, both eyes and all related structures Neck Neck: Yes normal visual inspection, Yes no lymphadenopathy, Yes trachea midline and Yes no JVD Thyroid: Thyroid normal Chest Chest palpation & inspection: normal inspection of the chest, normal palpation of entire chest wall and no tenderness Resp Other: Percussion note is resonant, breath sounds are distant with prolonged expiratory phase. No wheezes or rhonchi are heard. Cardio Palpation: normal PMI Rate: regular rate Rhythm: regular rhythm Heart sounds: no gallops and no murmurs GI Inspection: Yes other (Abdomen is obese and protuberant) Palpation (GI): Soft to palpation, nontender, No hepatosplenomegaly present and no masses Auscultation: normal bowel sounds Back/Spine/Pelvis Thoracic/Lumbar Spine: thoracic and lumbar spine normal to inspection and thoraco-lumbar ROM limited Skin General skin exam: no rashes or lesions noted Neuro General: patient oriented x3 and no focal motor deficits Cranial nerves: Yes CN's II-XII intact bilaterally Extrem General: Yes normal to inspection, Yes no clubbing, cyanosis or edema and Yes no calf tenderness Psych Appearance: grossly normal and well kempt Speech and movement: Normal speech and movement present Assessment & Plan Assessment & Plan (1) COPD (chronic obstructive pulmonary disease): Comment: Auin-rh-kczfeavr COPD . Generally well controlled, SPIROMETRY IN 2022 WAS BASICALLY NORMAL. Code(s): J44.9 - Chronic obstructive pulmonary disease, unspecified Category: Medical Plan: Advised to continue using Wixela 250-51 inhalation b.i.d.. May use albuterol HFA 2 puffs Q 6 hours p.r.n. He really does not need to use INCRUSE ELLIPTA. And is explained thoroughly . About this (2) Allergic rhinitis: Comment: It is mild, seasonal, . Inactive at this time Code(s): J30.9 - Allergic rhinitis, unspecified Category: Medical Plan: Advised to use Claritin 10 mg once a day p.r.n. (3) CE (obstructive sleep apnea): Comment: Currently untreated. He lost his machine because of noncompliance. He claims that he sleeps okay. Advised that he should continue to lose weight and also sleep on the side as much as possible. *Patient is not interested in getting the CPAP machine again Code(s): G47.33 - Obstructive sleep apnea (adult) (pediatric) Category: Medical Plan: as above (4) Obesity (BMI 30-39.9): Comment: Discussed about his weight, he is not well motivated to lose weight. Also cannot walk much . He has actually put on some weight lately, this seems to be due to lack of activity and exercise. Code(s): E66.9 - Obesity, unspecified Category: Medical Plan: Encouraged to stay active and walk on a daily basis. Cut down the intake of calories. Coding Level of Care Code Est Pt Level 3 (68546) Diagnoses COPD (chronic obstructive pulmonary disease) J44.9 Allergic rhinitis J30.9 CE (obstructive sleep apnea) G47.33 Obesity (BMI 30-39.9) E66.9
== END 2023-11-10 11:03 | disposition home or self-care (01) ==
PROVIDERS: PCP Internal Medicine; Visit Provider Internal Medicine
DX: J44.9 Chronic obstructive pulmonary disease, unspecified (principal); J30.9 Allergic rhinitis, unspecified; G47.33 Obstructive sleep apnea (adult) (pediatric); E66.9 Obesity, unspecified
CPT/HCPCS: 99213

== ENCOUNTER → 2023-11-10 09:47 | Outpatient (BNVA) | payer OTHER, SELFPAY | PROVIDERS: PCP Internal Medicine; Visit Provider Internal Medicine | DX: J44.9 Chronic obstructive pulmonary disease, unspecified (principal); J30.9 Allergic rhinitis, unspecified; E66.09 Other obesity due to excess calories; G47.33 Obstructive sleep apnea (adult) (pediatric) | CPT/HCPCS: 99212 ==

== ENCOUNTER 2023-11-21 08:15 | Outpatient (REF) | payer OTHER, SELFPAY ==
[2023-11-21 11:37] LABS: Anion Gap 12 (12-20); Blood Urea Nitrogen 16 mg/dL (9-16); Calcium 9.5 mg/dL (8.4-10.2); Carbon Dioxide 24 mmol/L (22-29); Chloride 110 mmol/L (96-108); Estimated Glomerular Filt Rate 60; Glucose Random 102 mg/dL (60-115); Sodium 142 mmol/L (135-145)
== END 2023-11-21 08:16 | disposition home or self-care (01) ==
LOC: HO.HHCL 08:15
PROVIDERS: Visit Provider Internal Medicine Cardiovascular Disease
DX: R60.9 Edema, unspecified (principal)
CPT/HCPCS: 36415; 80048

== ENCOUNTER 2024-01-21 08:46 | Day surgery (SDC) | payer OTHER, SELFPAY ==
--- NOTE | 2024-01-21 09:44 | P.HPSUR_ITS ---
Pre-Procedural Eval Section A - 24 Hr Update-Section A only Date of Service: 01/21/24 Section B - Complete if H&P > 30 days Chief Complaint: colon screening Relevant Family History (Specify if Yes): No Relevant Social History: None Present Medications: see Short Stay Collaborative assessment Medical History: Significant History (Hoarseness Dysphagia Throat disorder Bronchitis CHF (congestive heart failure) Afib Allergic rhinitis COPD (chronic obstructive pulmonary disease) CE (obstructive sleep apnea) Obesity (BMI 30- 39.9) Hypothyroid Anxiety Palpitation HTN (hypertension)) History of Previous Operations: Relevant previous surgery/procedure and date(s) (Hx of umbilical hernia repair History of surgery on arm Hx of eye surgery Hx of colonoscopy Hx of knee surgery Hx of tonsillectomy) Allergies: Allergies Allergy/AdvReac Type Severity Reaction Status Date / Time Iodinated Contrast Media Allergy Unknown HIVES Verified 11/10/23 10:50 [CONTRAST, IV] kiwi [KIWI] Allergy Unknown THROAT Verified 11/10/23 10:50 SWELLING Review of Systems Sugical H&P ROS: Negative: Constitution, Cardiovascular, Respiratory, Neurological, Psychiatric, Hem-Onc, Allergic/Immunologic, Gastrointestinal, Genitourinary, Musculoskeletal, Integumentary, Endocrine and Eyes/Ears/Nose/Throat Exam Surgical H&P Exam: Normal: HEENT, Normal: Heart, Normal: Lungs, Normal: Extremities, Normal: Abdomen, Normal: Skin and Normal: Neurological Plan Diagnosis/Plan: Unchanged I have reviewed the history and physical and performed a pertinent physical examination on my patient. No changes have occurred unless specified. Time Spent With Patient Time: Total time managing care of this patient today ____ minutes.
[2024-01-21 09:55] VITALS: BMI 34.6
--- NOTE | 2024-01-21 10:09 | HO.ANESPROP2 ---
HPI - Anesthesia Eval Consult details Narrative: colon screen [facility] [place] Active Problems Active Problems: All Active Problems Asthma exacerbation (Acute) Acute exacerbation of chronic obstructive pulmonary disease (Acute) Pre-op examination (Acute) Colon cancer screening (Acute) Pancreatic insufficiency (Acute) Abdominal bloating (Acute) Hepatic steatosis (Acute) Liver lesion (Acute) GERD (gastroesophageal reflux disease) (Acute) Throat disorder (Acute) Bronchitis (Acute) Allergic rhinitis (Acute) COPD (chronic obstructive pulmonary disease) (Acute) CE (obstructive sleep apnea) (Acute) Obesity (BMI 30-39.9) (Acute) Past Medical History Medical History Hoarseness Dysphagia Throat disorder Bronchitis CHF (congestive heart failure) Afib Allergic rhinitis COPD (chronic obstructive pulmonary disease) EC (obstructive sleep apnea) Obesity (BMI 30-39.9) Hypothyroid Anxiety Palpitation HTN (hypertension) Family History Family History Family/Other No problems noted. Family history of problems with anesthesia: No Surgical History Surgical History Hx of umbilical hernia repair History of surgery on arm Hx of eye surgery Hx of colonoscopy Hx of knee surgery Hx of tonsillectomy History of Problems with Anesthesia: No Social History Social History Household Members: None Housing: Apartment Do you presently have visiting nurse or other home services: Yes Alcohol intake: former Patient Tobacco Use Status: Never used Tobacco Advance Directives: No Advance Directives Information Provided: Yes service: No Meds Allergies Allergy/AdvReac Type Severity Reaction Status Date / Time Iodinated Contrast Media Allergy Unknown HIVES Verified 11/10/23 10:50 [CONTRAST, IV] kiwi [KIWI] Allergy Unknown THROAT Verified 11/10/23 10:50 SWELLING Home Medications ?Medication ?Instructions ?Recorded ?Confirmed ?Last Taken ?Type apixaban 5 mg tablet 5 mg PO BID 05/24/20 08/08/23 08/08/23 History cholecalciferol (vitamin D3) 50 50 mcg PO DAILY 05/24/20 08/08/23 08/08/23 History mcg (2,000 unit) tablet clonazepam 1 mg tablet 1 mg PO BID PRN Anxiety 05/24/20 08/08/23 08/07/23 History hydroxyzine pamoate 25 mg capsule 25 mg PO BID PRN Anxiety 05/24/20 08/08/23 Unknown History levothyroxine 100 mcg tablet 100 mcg PO DAILY 05/24/20 08/08/23 08/08/23 History lisinopril 40 mg tablet 40 mg PO DAILY 05/24/20 08/08/23 08/08/23 History loratadine 10 mg tablet 10 mg PO DAILY 05/24/20 08/08/23 08/08/23 History metoprolol succinate 200 mg 200 mg PO DAILY 05/24/20 08/08/23 08/08/23 History tablet,extended release 24 hr rosuvastatin 40 mg tablet 40 mg PO DAILY 05/24/20 08/08/23 08/08/23 History zolpidem 10 mg tablet 10 mg PO BEDTIME PRN Insomnia 05/24/20 08/08/23 Unknown History albuterol sulfate 2.5 mg/3 mL 3 mg inhalation QID PRN Shortness 03/20/21 08/08/23 Unknown History (0.083 %) solution for nebulization Of Breath Or Wheezing cyclobenzaprine 10 mg tablet 10 mg PO BEDTIME 08/08/23 08/08/23 08/07/23 History diclofenac sodium 1 % topical gel 2 g topical QID 08/08/23 08/08/23 08/08/23 History furosemide 40 mg tablet 40 mg PO Q2D 08/08/23 08/08/23 08/07/23 History furosemide 40 mg tablet 60 mg PO Q2D 08/08/23 08/08/23 08/08/23 History prednisone 20 mg tablet 20 mg PO DAILY 08/08/23 08/08/23 08/08/23 History vitamin E (dl, acetate) 45 mg (100 45 mg PO DAILY 08/08/23 08/08/23 08/08/23 History unit) capsule Exam Airway Mallampati Class: II TM Dist: >3cm Neck ROM: Limited Heart: rrr Lungs: cta Assessment and Plan Assessment Anesthesia Assessment: Anesthesia Plan Discussed Final Anesthetic Review Family History of Problems with Anesthesia: No History of Problems with Anesthesia: No NPO: Yes ASA Class: III Final Preanesthetic Review: No Changes in Pt Med Stat, Meds/Allgs Chart Reviewed, Consent Obtained/Reviewed and Anes Risks/Benef Reviewed Patient Risk: Intermediate Procedure Risk: Low Anesthetic Plan Anesthetic Plan: MAC: Disposition: Standard PACU
[2024-01-21 10:11] VITALS: BP 150/97; PULSE 89; RESP 16; TEMP 36.4; O2SAT 99
[2024-01-21] MEDS: Lactated Ringers 1,000 ML 50 ML IVCONT (10:14)
--- NOTE | 2024-01-21 10:43 | HO.OPN-COLON ---
Colonoscopy Operative Note Operative Note Date of Service: 01/21/24 Narrative: Operative Information Procedure Description: Colonoscopy Indication: screening Anesthesia: MAC COLONOSCOPY Instrument: Olympus variable stiffness ADULT scope 190L Colonoscopy Monitoring: Vital signs and clinical assessment, continuous EKG monitoring, Pulse oximetry, Carbon Dioxide monitoring and blood pressure monitoring were done throughout the procedure. Colon withdrawal time was 8 minutes. Procedure: The patient was placed in the left lateral decubitis position and pre-procedure medications were administered. After a digital rectal examination of the ano-rectum, the video colonoscope was inserted into the rectum and advanced through the colon to the cecum/TI. The colonoscope was slowly withdrawn in a retrograde panoramic fashion and the colon mucosa was carefully examined including a retroflexed view of the rectum. Findings and interventions are described below. Procedure Difficulty: easy Findings: Terminal Ileum-not intubated due to prep Cecum: poor prep, partially seen, looked normal Ascending Colon: normal Transverse Colon -normal Descending Colon:normal Sigmoid Colon: moderate diverticulosis Rectum: Retroflexion with small internal hemorrhoids seen, grade I, x 3 sessile polyps 7-9 mm sessile polyps removed with cold snare Anorectum - normal Intervention: cold snare Colon preparation: [place] Bowel Preparation Scale Right colon; 1 Transverse colon: 2 Left colon; 3 (0 = Unprepared colon segment with mucosa not seen due to solid stool that cannot be cleared. 1 = Portion of mucosa of the colon segment seen, but other areas of the colon segment not well seen due to staining, residual stool and/or opaque liquid. 2 = Minor amount of residual staining, small fragments of stool and/or opaque liquid, but mucosa of colon segment seen well. 3 = Entire mucosa of colon segment seen well with no residual staining, small fragments of stool or opaque liquid) Impression and Post Procedure Diagnosis: diverticulosis colon polyps internal hemorrhoids Plan: High fiber diet leaflet Avoid straining at stool, epsom salts and sitz bath, anusol supps or cream Repeat Colonoscopy in 6-12 months due to poor right prep or earlier if clinically indicated Above findings were reviewed with the patient and relevant handouts were provided if indicated.
[2024-01-21 10:50] VITALS: BP 104/74; PULSE 93; RESP 18; TEMP 36.1; O2SAT 96
[2024-01-21 11:05] VITALS: BP 122/89; PULSE 79; RESP 18; TEMP 36.3; O2SAT 97
[2024-01-21 11:14] VITALS: BP 129/95; PULSE 76; RESP 18; TEMP 36.1; O2SAT 99
== END 2024-01-21 11:53 | disposition home or self-care (01) ==
PROVIDERS: PCP Internal Medicine; Visit Provider Internal Medicine Gastroenterology
PROC: 0DJD8ZZ Inspection of Lower Intestinal Tract, Via Natural or Artificial Opening Endoscopic (ICD-10-PCS; CPT 45378; principal; 2024-01-21 10:50)
DX: Z12.11 Encounter for screening for malignant neoplasm of colon (principal); K62.1 Rectal polyp; K57.30 Diverticulosis of large intestine without perforation or abscess without bleeding; K64.0 First degree hemorrhoids; K21.9 Gastro-esophageal reflux disease without esophagitis; R14.0 Abdominal distension (gaseous); K86.89 Other specified diseases of pancreas; K76.0 Fatty (change of) liver, not elsewhere classified; K22.89 Other specified disease of esophagus; I11.0 Hypertensive heart disease with heart failure; I50.9 Heart failure, unspecified; I48.91 Unspecified atrial fibrillation; J44.9 Chronic obstructive pulmonary disease, unspecified; G47.33 Obstructive sleep apnea (adult) (pediatric); E66.9 Obesity, unspecified; Z68.37 Body mass index [BMI] 37.0-37.9, adult; Z79.899 Other long term (current) drug therapy; Z91.041 Radiographic dye allergy status; Z98.890 Other specified postprocedural states
CPT/HCPCS: 45385; 88305; J2704

== ENCOUNTER → 2024-01-21 08:46 | Outpatient (BNV) | payer OTHER, SELFPAY | PROVIDERS: PCP Internal Medicine; Visit Provider Internal Medicine Gastroenterology | DX: Z12.11 Encounter for screening for malignant neoplasm of colon (principal); K63.5 Polyp of colon; Z91.199 Patient's noncompliance with other medical treatment and regimen due to unspecified reason; K57.30 Diverticulosis of large intestine without perforation or abscess without bleeding | CPT/HCPCS: 45385 ==

== ENCOUNTER → 2024-02-04 11:49 | Outpatient (BNVA) | payer OTHER, SELFPAY | PROVIDERS: PCP Internal Medicine; Visit Provider Nurse Practitioner | DX: Z01.818 Encounter for other preprocedural examination (principal); K21.9 Gastro-esophageal reflux disease without esophagitis; K59.00 Constipation, unspecified | CPT/HCPCS: 99212 ==

== ENCOUNTER 2024-02-11 10:52 | Outpatient (REF) | payer OTHER, SELFPAY ==
[2024-02-11 14:23] LABS: PSA,Total (Free>4and<10) 0.27 ng/mL (0.00-4.00)
[2024-02-11 14:24] LABS: Alanine Aminotransferase 18 U/L (0-40); Albumin Level 4.4 g/dL (3.5-5.0); Alkaline Phosphatase 46 U/L (39-117); Anion Gap 15 (12-20); Aspartate Amino Transferase 20 U/L (5-37); Bilirubin Total 1.7 mg/dL (0.0-1.0); Blood Urea Nitrogen 20 mg/dL (9-16); Calcium 9.5 mg/dL (8.4-10.2); Carbon Dioxide 25 mmol/L (22-29); Chloride 106 mmol/L (96-108); Estimated Glomerular Filt Rate 48; Glucose Random 97 mg/dL (60-115); Potassium 3.7 mmol/L (3.3-5.1); Sodium 142 mmol/L (135-145); Total Protein 7.1 g/dL (6.5-8.0)
== END 2024-02-11 10:53 | disposition home or self-care (01) ==
LOC: HO.HHCL 10:52
PROVIDERS: Visit Provider Internal Medicine
DX: N40.1 Benign prostatic hyperplasia with lower urinary tract symptoms (principal); R39.16 Straining to void; Z12.5 Encounter for screening for malignant neoplasm of prostate
CPT/HCPCS: 36415; 80053; 84153

== ENCOUNTER 2024-03-18 09:08 | Outpatient (AMB) | payer OTHER, SELFPAY ==
--- NOTE | 2024-03-18 09:59 | A.OFFVIS_ITS ---
Vital Signs 03/18/24 10:01 03/18/24 10:07 Height 5 ft 6 in Weight 205 lb 0.478 oz BMI 33.1 33.1 BP 110/62 Blood Pressure Location Lt brachial Position Sitting Pulse 89 Pulse Source Pulse Oximeter Pulse Oximetry (%) 98 Oxygen Delivery Method Room Air Intake Visit Reasons: COPD Pmp Project Manager Required: No Pmp Project Manager Name: Alexandra SMITH Dairy Equipment Specialist: Dairy Equipment Specialist offered & declined Accompanied by: Self / Same As Patient Allergies Iodinated Contrast Media [CONTRAST, IV] Allergy (Unknown, Verified 03/18/24 10:11) HIVES kiwi [KIWI] Allergy (Unknown, Verified 03/18/24 10:11) THROAT SWELLING Medication List - Last Reconciled 03/18/24 by Curt Marroquin MD albuterol sulfate 3 mg inhalation QID PRN albuterol sulfate 90 mcg/actuation (Ventolin HFA) 2 puffs PO Q6H PRN apixaban 5 mg PO BID bisacodyl (Dulcolax (bisacodyl)) 10 mg (2 x 5 mg) PO BEDTIME 2 days cholecalciferol (vitamin D3) 50 mcg PO DAILY clonazepam 1 mg PO BID PRN cyclobenzaprine 10 mg PO BEDTIME diclofenac sodium 1% 2 grams topical QID epinephrine (EpiPen 2-Blaise) 0.3 mg (0.3 mL) IM Q4H PRN fluticasone propion-salmeterol 250-50 mcg/dose (Wixela Inhub) 1 ea PO BID furosemide 60 mg PO Q2D hydroxyzine pamoate 25 mg PO BID PRN L.acidoph,saliva-B.bif-S.therm 175 mg (Acidophilus Probiotic Blend) 1 cap PO DAILY levothyroxine 100 mcg PO DAILY [id number]-zplzlrtf-pqicizd 36,000-114,000- 180,000 unit (Creon) 2 caps PO QID lisinopril 40 mg PO DAILY loratadine 10 mg PO DAILY magnesium citrate 150 mL PO DAILY meclizine mg PO metoprolol succinate ER 200 mg PO DAILY pantoprazole 40 mg PO DAILY prednisone 20 mg PO DAILY rosuvastatin 40 mg PO DAILY semaglutide (weight loss) (Wegovy) 1 mg subcut QWEEK sennosides (Senna Laxative) 17.2 mg (2 x 8.6 mg) PO BEDTIME simethicone 180 mg PO QID 30 days umeclidinium 62.5 mcg/actuation (Incruse Ellipta) 1 inh inhalation DAILY vitamin E (dl, acetate) 45 mg PO DAILY zolpidem 10 mg PO BEDTIME PRN Do you need a note to return to daycare/school/sports/work: No HPI HPI COPD: Details: 68 years old very pleasant gentleman is here for his routine follow-up after 4 months. He does have history of obstructive sleep apnea but has not been able to use the CPAP. He sleeps in lateral position as much as possible and claims that he gets good sleep for 6 hours per night. Denies any daytime sleepiness. Has not been able to lose much weight. For COPD he uses Wixela 250-50 1 inhalation b.i.d. and he has Ventolin for rescue usage, but hardly needs to use it. He is nonsmoker. Overall he is very stable and happy. [facility] Medical History Pre-op examination Colon cancer screening Hoarseness Dysphagia Throat disorder Bronchitis CHF (congestive heart failure) Afib Allergic rhinitis COPD (chronic obstructive pulmonary disease) CE (obstructive sleep apnea) Obesity (BMI 30-39.9) Hypothyroid Anxiety Palpitation HTN (hypertension) Surgical History Hx of umbilical hernia repair History of surgery on arm Hx of eye surgery Hx of colonoscopy Hx of knee surgery Hx of tonsillectomy Family History Family/Other No problems noted. Social History Household Members: None Housing: Apartment Do you presently have visiting nurse or other home services: Yes Alcohol intake: former Patient Tobacco Use Status: Former Tobacco user service: No Review of Systems Const All systems reviewed & are unremarkable except as noted in HPI and below Eyes Reports no additional complaints ENT Reports nasal congestion (Mild intermittent) Card Denies chest pain, Reports irregular heart rhythm (Atrial fib) and Denies leg edema Resp Reports as per HPI GI Reports no additional complaints Reports no additional complaints Musc Reports abnormal gait (Uses cane), Reports back pain and Reports arthralgias Skin/Breast Reports system reviewed and no additional complaints, except as documented Neuro Reports no additional complaints and Reports abnormal gait (Uses cane) Psych Reports no additional complaints Physical Exam Vital Signs: Last Vital Signs Pulse 89 03/18/24 10:01 BP 110/62 03/18/24 10:01 Pulse Ox 98 03/18/24 10:01 Oxygen Delivery Method Room Air 03/18/24 10:01 BMI result Body Mass Index 33.1 Const General: comfortable, no acute distress, alert and awake Orientation/consciousness: patient oriented x3 HEENT Head: Yes normal to inspection General nose exam: No nasal polyps present and No nasal discharge present Face and sinus: Yes sinuses nontender Mouth: oropharynx normal Throat: Yes posterior oropharynx normal Eyes General: appearance normal, both eyes and all related structures Neck Neck: Yes normal visual inspection, Yes no lymphadenopathy, Yes trachea midline and Yes no JVD Thyroid: Thyroid normal Chest Chest palpation & inspection: normal inspection of the chest, normal palpation of entire chest wall and no tenderness Resp Other: Percussion note is resonant, breath sounds are distant with prolonged expiratory phase. No wheezes or rhonchi are heard. Cardio Palpation: normal PMI Rate: regular rate Rhythm: regular rhythm Heart sounds: no gallops and no murmurs GI Inspection: Yes other (Abdomen is obese and protuberant) Palpation (GI): Soft to palpation, nontender, No hepatosplenomegaly present and no masses Auscultation: normal bowel sounds Back/Spine/Pelvis Thoracic/Lumbar Spine: thoracic and lumbar spine normal to inspection and thoraco-lumbar ROM limited Skin General skin exam: no rashes or lesions noted Neuro General: patient oriented x3 and no focal motor deficits Cranial nerves: Yes CN's II-XII intact bilaterally Extrem General: Yes normal to inspection, Yes no clubbing, cyanosis or edema and Yes no calf tenderness Psych Appearance: grossly normal and well kempt Speech and movement: Normal speech and movement present Assessment & Plan Assessment & Plan (1) COPD (chronic obstructive pulmonary disease): Comment: Bquz-qe-epiamgid COPD . Generally well controlled, SPIROMETRY IN 2022 WAS BASICALLY NORMAL. Code(s): J44.9 - Chronic obstructive pulmonary disease, unspecified Category: Medical Plan: Continue to use Wixela 250-50 1 inhalation b.i.d.. Continue to use Ventolin 2 puffs Q 6 hours only as needed. (2) Allergic rhinitis: Comment: It is mild, seasonal, . Inactive at this time Code(s): J30.9 - Allergic rhinitis, unspecified Category: Medical Plan: No active treatment needed at this time . (3) CE (obstructive sleep apnea): Comment: Currently untreated. He lost his machine because of noncompliance. He claims that he sleeps okay. Code(s): G47.33 - Obstructive sleep apnea (adult) (pediatric) Category: Medical Plan: Advised that he should continue to lose weight and also sleep on the side as much as possible. *Patient is not interested in getting the CPAP machine again (4) Obesity (BMI 30-39.9): Comment: Discussed about his weight, he is not well motivated to lose weight. Also cannot walk much . He has actually put on some weight lately, this seems to be due to lack of activity and exercise. Code(s): E66.9 - Obesity, unspecified Category: Medical Plan: He is moderately obese, current BMI 33. Has not lost much weight, . If he can maintain his weight at present level, would be okay. Coding Level of Care Code Est Pt Level 3 (33853) Diagnoses COPD (chronic obstructive pulmonary disease) J44.9 Allergic rhinitis J30.9 CE (obstructive sleep apnea) G47.33 Obesity (BMI 30-39.9) E66.9
[2024-03-18 10:01] VITALS: BP 110/62; PULSE 89; O2SAT 98; BMI 33.1
--- NOTE | 2024-03-18 10:06 | A.OFFVIS_ITS ---
Vital Signs 03/18/24 10:01 Height 5 ft 6 in Weight 205 lb 0.478 oz BMI 33.1 BP 110/62 Blood Pressure Location Lt brachial Position Sitting Pulse 89 Pulse Source Pulse Oximeter Pulse Oximetry (%) 98 Oxygen Delivery Method Room Air Intake Visit Reasons: COPD Statistical Reporting Analyst Required: Yes Statistical Reporting Analyst Name: Alexandra SMITH Floorworker Lasting: Floorworker Lasting offered & declined Accompanied by: Self / Same As Patient Allergies Iodinated Contrast Media [CONTRAST, IV] Allergy (Unknown, Verified 03/18/24 10:03) HIVES kiwi [KIWI] Allergy (Unknown, Verified 03/18/24 10:03) THROAT SWELLING Medication List - Last Reconciled 03/18/24 by Sho Landin LPN albuterol sulfate 3 mg inhalation QID PRN albuterol sulfate 90 mcg/actuation (Ventolin HFA) 2 puffs PO Q6H PRN apixaban 5 mg PO BID bisacodyl (Dulcolax (bisacodyl)) 10 mg (2 x 5 mg) PO BEDTIME 2 days cholecalciferol (vitamin D3) 50 mcg PO DAILY clonazepam 1 mg PO BID PRN cyclobenzaprine 10 mg PO BEDTIME diclofenac sodium 1% 2 grams topical QID epinephrine (EpiPen 2-Blaise) 0.3 mg (0.3 mL) IM Q4H PRN fluticasone propion-salmeterol 250-50 mcg/dose (Wixela Inhub) 1 ea PO BID furosemide 60 mg PO Q2D hydroxyzine pamoate 25 mg PO BID PRN L.acidoph,saliva-B.bif-S.therm 175 mg (Acidophilus Probiotic Blend) 1 cap PO DAILY levothyroxine 100 mcg PO DAILY jxyibg-vhmcadfy-tzijmpv 36,000-114,000- 180,000 unit (Creon) 2 caps PO QID lisinopril 40 mg PO DAILY loratadine 10 mg PO DAILY magnesium citrate 150 mL PO DAILY meclizine mg PO metoprolol succinate ER 200 mg PO DAILY pantoprazole 40 mg PO DAILY prednisone 20 mg PO DAILY rosuvastatin 40 mg PO DAILY semaglutide (weight loss) (Wegovy) 1 mg subcut QWEEK sennosides (Senna Laxative) 17.2 mg (2 x 8.6 mg) PO BEDTIME simethicone 180 mg PO QID 30 days umeclidinium 62.5 mcg/actuation (Incruse Ellipta) 1 inh inhalation DAILY vitamin E (dl, acetate) 45 mg PO DAILY zolpidem 10 mg PO BEDTIME PRN PFSH Medical History (Updated 03/17/24 @ 14:28 by ANOOP Rubin) Pre-op examination Colon cancer screening Hoarseness Dysphagia Throat disorder Bronchitis CHF (congestive heart failure) Afib Allergic rhinitis COPD (chronic obstructive pulmonary disease) CE (obstructive sleep apnea) Obesity (BMI 30-39.9) Hypothyroid Anxiety Palpitation HTN (hypertension) Surgical History (Updated 03/17/24 @ 14:28 by ANOOP Rubin) Hx of umbilical hernia repair History of surgery on arm Hx of eye surgery Hx of colonoscopy Hx of knee surgery Hx of tonsillectomy Family History Family/Other No problems noted. Social History (Updated 03/18/24 @ 10:05 by Sho Landin LPN) Household Members: None Housing: Apartment Do you presently have visiting nurse or other home services: Yes Alcohol intake: former Patient Tobacco Use Status: Former Tobacco user service: No Physical Exam Vital Signs: Last Vital Signs Pulse 89 03/18/24 10:01 BP 110/62 03/18/24 10:01 Pulse Ox 98 03/18/24 10:01 Oxygen Delivery Method Room Air 03/18/24 10:01 BMI result Body Mass Index 33.1 Quality Reporting (2019) Adult ([facility] 138/2/22/69) Body Mass Index: 33.1 Coding
--- NOTE | 2024-03-18 11:53 | A.OFFVIS_ITS ---
Vital Signs 03/18/24 10:01 Height 5 ft 6 in Weight 205 lb 0.478 oz BMI 33.1 BP 110/62 Blood Pressure Location Lt brachial Position Sitting Pulse 89 Pulse Source Pulse Oximeter Pulse Oximetry (%) 98 Oxygen Delivery Method Room Air Intake Visit Reasons: COPD Allergies Iodinated Contrast Media [CONTRAST, IV] Allergy (Unknown, Verified 03/18/24 10:11) HIVES kiwi [KIWI] Allergy (Unknown, Verified 03/18/24 10:11) THROAT SWELLING Medication List - Last Reconciled 03/18/24 by Curt Marroquin MD albuterol sulfate 3 mg inhalation QID PRN albuterol sulfate 90 mcg/actuation (Ventolin HFA) 2 puffs PO Q6H PRN apixaban 5 mg PO BID bisacodyl (Dulcolax (bisacodyl)) 10 mg (2 x 5 mg) PO BEDTIME 2 days cholecalciferol (vitamin D3) 50 mcg PO DAILY clonazepam 1 mg PO BID PRN cyclobenzaprine 10 mg PO BEDTIME diclofenac sodium 1% 2 grams topical QID epinephrine (EpiPen 2-Blaise) 0.3 mg (0.3 mL) IM Q4H PRN fluticasone propion-salmeterol 250-50 mcg/dose (Wixela Inhub) 1 ea PO BID furosemide 60 mg PO Q2D hydroxyzine pamoate 25 mg PO BID PRN L.acidoph,saliva-B.bif-S.therm 175 mg (Acidophilus Probiotic Blend) 1 cap PO DAILY levothyroxine 100 mcg PO DAILY gmdgvq-ukrvukgp-yvvfawm 36,000-114,000- 180,000 unit (Creon) 2 caps PO QID lisinopril 40 mg PO DAILY loratadine 10 mg PO DAILY magnesium citrate 150 mL PO DAILY meclizine mg PO metoprolol succinate ER 200 mg PO DAILY pantoprazole 40 mg PO DAILY prednisone 20 mg PO DAILY rosuvastatin 40 mg PO DAILY semaglutide (weight loss) (Wegovy) 1 mg subcut QWEEK sennosides (Senna Laxative) 17.2 mg (2 x 8.6 mg) PO BEDTIME simethicone 180 mg PO QID 30 days umeclidinium 62.5 mcg/actuation (Incruse Ellipta) 1 inh inhalation DAILY vitamin E (dl, acetate) 45 mg PO DAILY zolpidem 10 mg PO BEDTIME PRN PFSH Medical History Pre-op examination Colon cancer screening Hoarseness Dysphagia Throat disorder Bronchitis CHF (congestive heart failure) Afib Allergic rhinitis COPD (chronic obstructive pulmonary disease) CE (obstructive sleep apnea) Obesity (BMI 30-39.9) Hypothyroid Anxiety Palpitation HTN (hypertension) Surgical History Hx of umbilical hernia repair History of surgery on arm Hx of eye surgery Hx of colonoscopy Hx of knee surgery Hx of tonsillectomy Family History Family/Other No problems noted. Social History Household Members: None Housing: Apartment Do you presently have visiting nurse or other home services: Yes Alcohol intake: former Patient Tobacco Use Status: Former Tobacco user service: No Physical Exam Vital Signs: Last Vital Signs Pulse 89 03/18/24 10:01 BP 110/62 03/18/24 10:01 Pulse Ox 98 03/18/24 10:01 Oxygen Delivery Method Room Air 03/18/24 10:01 BMI result Body Mass Index 33.1 Quality Reporting (2019) Adult ([facility] 138/2/69) Body Mass Index: 33.1 Assessment & Plan Assessment & Plan (1) COPD (chronic obstructive pulmonary disease): Comment: Ndxb-ve-afeugixn COPD . Generally well controlled, SPIROMETRY IN 2022 WAS BASICALLY NORMAL. Code(s): J44.9 - Chronic obstructive pulmonary disease, unspecified Category: Medical Plan: CONTINUE TO USE WIXELA 250-51 INHALATION B.I.D.. AND ALBUTEROL HFA 2 PUFFS Q 6 HOURS P.R.N. (2) Allergic rhinitis: Comment: It is mild, seasonal, . Inactive at this time Code(s): J30.9 - Allergic rhinitis, unspecified Category: Medical Plan: NO NEED OF ANY ACTIVE TREATMENT (3) CE (obstructive sleep apnea): Comment: Currently untreated. He lost his machine because of noncompliance. He claims that he sleeps okay. Code(s): G47.33 - Obstructive sleep apnea (adult) (pediatric) Category: Medical Plan: AGAIN INSTRUCTED TO LOSE WEIGHT AND TRY TO SLEEP IN LATERAL POSITION (4) Obesity (BMI 30-39.9): Comment: Discussed about his weight, he is not well motivated to lose weight. Also cannot walk much . He has actually put on some weight lately, this seems to be due to lack of activity and exercise. Code(s): E66.9 - Obesity, unspecified Category: Medical Plan: TALKED TO HIM ABOUT THE WEIGHT HE WILL TRY TO LOSE SOME BUT, IT MAY NOT BE REALISTIC TO EXPECT ANY SIGNIFICANT WEIGHT LOSS IN HIS CASE Coding Level of Care Code Est Pt Level 3 (02365) Diagnoses COPD (chronic obstructive pulmonary disease) J44.9 Allergic rhinitis J30.9 CE (obstructive sleep apnea) G47.33 Obesity (BMI 30-39.9) E66.9
[2024-03-18 11:55] VITALS: BMI 33.1
== END 2024-03-18 10:12 | disposition home or self-care (01) ==
LOC: HO.HPS 09:08
PROVIDERS: PCP Internal Medicine; Visit Provider Internal Medicine
DX: J44.9 Chronic obstructive pulmonary disease, unspecified (principal); G47.33 Obstructive sleep apnea (adult) (pediatric); E66.9 Obesity, unspecified; Z68.33 Body mass index [BMI] 33.0-33.9, adult
CPT/HCPCS: 99213

== ENCOUNTER → 2024-03-18 09:08 | Outpatient (BNVA) | payer OTHER, SELFPAY | PROVIDERS: PCP Internal Medicine; Visit Provider Internal Medicine | DX: J44.9 Chronic obstructive pulmonary disease, unspecified (principal); J30.9 Allergic rhinitis, unspecified; G47.33 Obstructive sleep apnea (adult) (pediatric); E66.9 Obesity, unspecified; Z68.33 Body mass index [BMI] 33.0-33.9, adult | CPT/HCPCS: 99212 ==

== ENCOUNTER 2024-03-19 13:31 | Outpatient (AMB) | payer OTHER, SELFPAY ==
--- NOTE | 2024-03-19 13:33 | A.OFFVIS_ITS ---
Vital Signs 03/19/24 13:37 Height 5 ft 6 in Weight 203 lb 11.314 oz BMI 32.9 BP 124/90 H Blood Pressure Location Rt brachial Position Sitting Pulse 79 Intake Visit Reasons: F/u constipation Intake Note: iMn presents to in office follow up of constipation. CC:Patient reports doing well and denies having any new GI concerns today. Client Services Representative Required: Yes Accompanied by: Self / Same As Patient Allergies Iodinated Contrast Media [CONTRAST, IV] Allergy (Unknown, Verified 05/25/24 09:36) HIVES kiwi [KIWI] Allergy (Unknown, Verified 05/25/24 09:36) THROAT SWELLING HPI HPI F/u constipation: Details: Assessment & Plan (1) GERD (gastroesophageal reflux disease): Code(s): K21.9 - Gastro-esophageal reflux disease without esophagitis Category: Medical (2) Pre-op examination: Code(s): Z01.818 - Encounter for other preprocedural examination Category: Medical (3) Constipation: Code(s): K59.00 - Constipation, unspecified Category: Medical Plan 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 But this has only been a problem over the past week. He has a new medication - WEGOVY - so this explains a lot!! He also did not fully clear with his scope, likely r/t the above medication which I was not aware he was on. He has not tried any of the jgfx-kqt-jrgmvhf laxatives so will start him on senna and titrate to affect her side effect. We will likely need to continue to titrate this treatment as he increases his will go V dose. Otherwise he has no other GI complaints at this time. I will put him in for his 1 year follow-up for his colonoscopy and I am also going to ask him to go for some blood work just to make sure best protect his health. Return office visit in 6 weeks to titrate his constipation treatment. Orders: Orders Colonoscopy - GI Use Only Today Z01.818 - Encounter for other preprocedural examination Comprehensive Met. Panel Today Z01.818 - Encounter for other preprocedural examination Medications: New bisacodyl (Dulcolax (bisacodyl)) 10 mg (2 x 5 mg) PO BEDTIME 2 days 4 tabs 0RF magnesium citrate For 2 days colonoscopy prep 150 mL PO DAILY 300 mL 0RF sennosides (Senna Laxative) 17.2 mg (2 x 8.6 mg) PO BEDTIME 60 tabs 6RF K59.00 - Constipation, unspecified peg 3350-electrolytes 236-22.74-6.74 -5.86 gram (Golytely) until fecal effluent is clear; do not exceed a total volume of 2,000 mL 240 mL PO Q10M 1 day 4,000 mL 0RF Z12.11 - Encounter for screening for malignant neoplasm of colon Refilled L.acidoph,saliva-B.bif-S.therm 175 mg (Acidophilus Probiotic Blend) 1 cap PO DAILY 30 caps 6RF K86.89 - Other specified diseases of pancreas, R14.0 - Abdominal distension (gaseous) pantoprazole 40 mg PO DAILY 30 tabs 6RF simethicone after meals 180 mg PO QID 30 days 120 caps 6RF R14.0 - Abdominal distension (gaseous) kzupvj-tpatppxk-nalephn 36,000-114,000- 180,000 unit (Creon) 2 caps PO QID 720 caps 1RF COLONOSCOPY Needs to be done BIOPSY TODAY'S VISIT 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 His creon dosing was incorrectly put in as 2 caps qid, I change this to bid. With this he feels he is stable and satisfied with his GI regimen. ROV 6 mos. PFS Medical History Pre-op examination Colon cancer screening Hoarseness Dysphagia Throat disorder Bronchitis CHF (congestive heart failure) Afib Allergic rhinitis COPD (chronic obstructive pulmonary disease) CE (obstructive sleep apnea) Obesity (BMI 30-39.9) Hypothyroid Anxiety Palpitation HTN (hypertension) Surgical History Hx of umbilical hernia repair History of surgery on arm Hx of eye surgery Hx of colonoscopy Hx of knee surgery Hx of tonsillectomy Family History Family/Other No problems noted. Social History Household Members: None Housing: Apartment Do you presently have visiting nurse or other home services: Yes Alcohol intake: former Patient Tobacco Use Status: Former Tobacco user Advance Directives Date on File: 08/11/23 service: No Review of Systems Const Denies fatigue, Denies fever(s), Denies night sweats, Denies poor appetite and Denies weight loss ENT Reports Normal hearing present, Denies dental pain, Denies dysphagia, Denies hearing loss, Denies mouth pain, Denies odynophagia, Denies throat swelling, Denies tongue swelling and Reports other (Dentition adequate) Card Reports no additional complaints Resp Reports no additional complaints GI Details: Denies abdominal pain, Denies melena, Reports bloating, Denies hematochezia, Reports constipation, Denies GI cramping, Denies dysphagia, Denies excessive flatus, Denies early satiety, Reports heartburn, Denies diarrhea, Denies nausea, Denies odynophagia, Denies vomiting and Denies hematemesis Skin/Breast Denies pruritus, Denies lesions, Denies rash and Denies jaundice Neuro Reports Normal hearing present and Denies Abnormal speech present Endo Denies fatigue Aller/Immun Denies throat swelling and Denies tongue swelling Physical Exam Vital Signs: Last Vital Signs Pulse 79 03/19/24 13:37 BP 124/90 H 03/19/24 13:37 BMI result Body Mass Index 32.9 Const General: cooperative, no acute distress, well developed and well groomed Nutritional Appearance: well nourished and obese Orientation/consciousness: oriented to person, oriented to place and oriented to time Limitations: language barrier and ambulation with cane HEENT Head: Yes normocephalic and Yes atraumatic Eyes General: appearance normal, both eyes and all related structures Pupils: Equal, round and reactive pupils present Neck Neck: Yes normal visual inspection and Yes no lymphadenopathy Thyroid: Thyroid normal Resp Effort & Inspection: normal respiratory effort and able to speak in complete sentences Auscultation: clear to auscultation bilaterally Cardio Rate: regular rate Rhythm: regular rhythm Heart sounds: Normal, physiologic split S2 sound present Peripheral pulses: radial pulses present and posterior tibial pulses present GI Inspection: No distended, No Abdominal panniculus present and Yes obesity Palpation (GI): Soft to palpation, nontender, no guarding, not rigid and No hepatosplenomegaly present Percussion: Yes normal to percussion Auscultation: normal bowel sounds Rectal Exam - Male: Yes deferred Skin General skin exam: no rashes or lesions noted, turgor normal, skin not dry, no jaundice, No spider nevi and no striae Rashes: no rashes Nails: normal Neuro General: oriented to person, oriented to place and oriented to time Cranial nerves: Yes Equal, round and reactive pupils present and Yes Normal hearing present Speech: No Abnormal speech present Extrem General: Yes normal to inspection, No clubbing, No cyanosis and No edema Psych Appearance: grossly normal and well kempt Mental Status: mental status grossly normal Speech and movement: Normal speech and movement present Affect: normal affect Attitude: cooperative Thought process: Normal thought process present and not confabulating Thought content: Normal thought content present Insight: Fair insight present (Psych) Judgement: Fair judgement present (Psych) Assessment & Plan Assessment & Plan (1) Constipation: Code(s): K59.00 - Constipation, unspecified Category: Medical (2) GERD (gastroesophageal reflux disease): Code(s): K21.9 - Gastro-esophageal reflux disease without esophagitis Category: Medical Plan 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 His creon dosing was incorrectly put in as 2 caps qid, I change this to bid. With this he feels he is stable and satisfied with his GI regimen. ROV 6 mos. COLONOSCOPY Needs to be done BIOPSY Medications: Changed From rtjtnj-rdhsbtul-bmhpihj 36,000-114,000- 180,000 unit 2 caps PO QID 720 caps 1RF To briwff-urqlfnja-gcbdtqf 36,000-114,000- 180,000 unit (Creon) 2 caps PO QID 720 caps 1RF Refilled L.acidoph,saliva-B.bif-S.therm 175 mg (Acidophilus Probiotic Blend) 1 cap PO DAILY 30 caps 6RF R14.0 - Abdominal distension (gaseous), K86.89 - Other specified diseases of pancreas pantoprazole 40 mg PO DAILY 30 tabs 6RF simethicone after meals 180 mg PO QID 120 caps 6RF 30 days R14.0 - Abdominal distension (gaseous) sennosides (Senna Laxative) 17.2 mg (2 x 8.6 mg) PO BEDTIME 60 tabs 6RF K59.00 - Constipation, unspecified Coding Level of Care Code Est Pt Level 3 (70349) Diagnoses Constipation K59.00 GERD (gastroesophageal reflux disease) K21.9
[2024-03-19 13:37] VITALS: BP 124/90; PULSE 79; BMI 32.9
== END 2024-03-19 13:57 | disposition home or self-care (01) ==
PROVIDERS: PCP Internal Medicine; Visit Provider Nurse Practitioner
DX: K59.00 Constipation, unspecified (principal); K21.9 Gastro-esophageal reflux disease without esophagitis
CPT/HCPCS: 99213

== ENCOUNTER → 2024-03-19 13:31 | Outpatient (BNVA) | payer OTHER, SELFPAY | PROVIDERS: PCP Internal Medicine; Visit Provider Nurse Practitioner | DX: K59.00 Constipation, unspecified (principal); K21.9 Gastro-esophageal reflux disease without esophagitis | CPT/HCPCS: 99212 ==

== ENCOUNTER 2024-03-20 15:30 | Emergency (ER) | payer OTHER, SELFPAY ==
--- NOTE | 2024-03-20 | ECG_ITS ---
Test Reason : dizziness Blood Pressure : / mmHG Vent. Rate : 083 BPM Atrial Rate : 000 BPM P-R Int : 000 ms QRS Dur : 078 ms QT Int : 356 ms P-R-T Axes : 000 000 012 degrees QTc Int : 418 ms Atrial fibrillation Abnormal ECG When compared with ECG of 08-AUG-2023 14:33, No significant change was found Referred By: Generic ED Physician Electronically Signed By:ANDIE DAVISON MD
--- NOTE | ~2024-03-20 | CT_ITS ---
EXAMINATION: CT HEAD WITHOUT CONTRAST [facility]: Head CT on 06/19/2023 TECHNIQUE: Contiguous axial imaging was performed from the skull base to vertex without intravenous administration of contrast. This CT examination was performed using dose optimization techniques as appropriate, variously including the following: *Automated exposure control *Adjustment of mA and/or kV according to patient size (this includes techniques or standardized protocols for targeted exams where dose is matched to indication/reason for exam; i.e. extremities or head) *Use of iterative reconstruction technique DLP: 792 mGy-cm RESULTS: There is no evidence of acute intracranial hemorrhage, acute large vessel infarct, midline shift or mass effect. The lopes-white differentiation is preserved. The ventricles and sulci are within normal limits in size and configuration. There is no evidence of hydrocephalus. There are no extraaxial collections. Osseous structures are intact. Paranasal sinuses and mastoid air cells are well aerated. CT/CT head/brain wo IV con IMPRESSION: No acute intracranial pathology. Electronically signed by: Nenita Duque MD 03/20/2024 06:11 PM ADALID ANNE
[2024-03-20 15:43] VITALS: BP 118/70; PULSE 96; O2SAT 97
[2024-03-20 15:55] VITALS: BP 120/87; PULSE 89; RESP 16; TEMP 36.8; O2SAT 98
[2024-03-20 16:17] LABS: MANUAL DIFF FLAG NO
[2024-03-20 16:19] VITALS: BP 120/87; PULSE 89; RESP 16; TEMP 36.6; O2SAT 99; BMI 34.3
[2024-03-20 16:25] LABS: Basophils Percent Auto 0.5 % (0-2); Eosinophils Absolute Auto 0.1 X10*3/uL (0.0-0.4); Eosinophils Percent Auto 0.6 % (0-4); Hemoglobin 12.4 g/dl (14.0-18.0); Imm Gran Abs Auto 0.02 X10*3/uL (0.00-0.03); Imm Gran Pct Auto 0.3 % (0.0-0.4); Lymphocytes Absolute Auto 1.6 X10*3/uL (1.2-4.9); Lymphocytes Percent Auto 20.2 % (20-40); Mean Corpuscular HGB Conc 35.4 g/dl (31.0-36.0); Mean Corpuscular Hemoglobin 30.8 pg (27.0-33.0); Mean Corpuscular Volume 87.1 fL (80.0-98.0); Monocytes Percent Auto 13.1 % (2-11); Neutrophils Absolute Auto 5.2 x10*3/uL (2.0-8.3); Neutrophils Percent Auto 65.3 % (45-73); Platelet Count 177 X10*3/uL (160-400); Red Blood Count 4.02 X10*6/uL (4.60-5.80); Red Cell Distribution Width 12.9 % (11.0-16.0); White Blood Count 7.9 X10*3/uL (4.8-10.8)
[2024-03-20 16:40] LABS: Alanine Aminotransferase 21 U/L (0-40); Albumin Level 3.8 g/dL (3.5-5.0); Alkaline Phosphatase 40 U/L (39-117); Anion Gap 14 (12-20); Aspartate Amino Transferase 19 U/L (5-37); Bilirubin Total 0.9 mg/dL (0.0-1.0); Blood Urea Nitrogen 14 mg/dL (9-16); Calcium 9.4 mg/dL (8.4-10.2); Carbon Dioxide 21 mmol/L (22-29); Chloride 112 mmol/L (96-108); Estimated Glomerular Filt Rate > 60; Glucose Random 85 mg/dL (60-115); Magnesium 1.5 mg/dL (1.6-2.6); Potassium 3.9 mmol/L (3.3-5.1); Sodium 143 mmol/L (135-145); Total Protein 6.2 g/dL (6.5-8.0)
[2024-03-20 16:49] LABS: Troponin-I High Sensitivity < 2.7 ng/L (<3.5-35.0)
[2024-03-20 18:30] VITALS: BP 139/98; PULSE 83; RESP 16; O2SAT 100
--- NOTE | 2024-03-20 18:43 | ED.GENADULT ---
HPI - General Adult General Chief complaint: Dizziness Stated complaint: weakness, dizzy, trouble breathing x2 days Time Seen by Provider: 03/20/24 17:20 Source: patient, RN notes reviewed and old records reviewed Mode of arrival: EMS Limitations: no limitations History of Present Illness ED Provider: Rajeev HPI narrative: 68-year-old male past medical history significant for vertigo, COPD, pancreatic insufficiency, fatty liver, GERD, obesity presents for evaluation of dizziness. Patient reports that prior to arrival he became dizzy, lightheaded and fell down. He did not hit his head or lose consciousness. He denied any chest pain He does take Eliquis for history of atrial fibrillation The patient reports that his symptoms have resolved at the time of my evaluation. He denies any kind of pain whatsoever Denies any fevers, chills, cough Denies any visual changes, focal weakness, difficulty with speech Related Data Home Medications ?Medication ?Instructions ?Recorded ?Confirmed apixaban 5 mg tablet 5 mg PO BID 05/24/20 03/18/24 cholecalciferol (vitamin D3) 50 50 mcg PO DAILY 05/24/20 03/18/24 mcg (2,000 unit) tablet clonazepam 1 mg tablet 1 mg PO BID PRN Anxiety 05/24/20 03/18/24 hydroxyzine pamoate 25 mg capsule 25 mg PO BID PRN Anxiety 05/24/20 03/18/24 levothyroxine 100 mcg tablet 100 mcg PO DAILY 05/24/20 03/18/24 lisinopril 40 mg tablet 40 mg PO DAILY 05/24/20 03/18/24 loratadine 10 mg tablet 10 mg PO DAILY 05/24/20 03/18/24 metoprolol succinate 200 mg 200 mg PO DAILY 05/24/20 03/18/24 tablet,extended release 24 hr rosuvastatin 40 mg tablet 40 mg PO DAILY 05/24/20 03/18/24 zolpidem 10 mg tablet 10 mg PO BEDTIME PRN Insomnia 05/24/20 03/18/24 albuterol sulfate 2.5 mg/3 mL 3 mg inhalation QID PRN Shortness 03/20/21 03/18/24 (0.083 %) solution for nebulization Of Breath Or Wheezing cyclobenzaprine 10 mg tablet 10 mg PO BEDTIME 08/08/23 03/18/24 diclofenac sodium 1 % topical gel 2 g topical QID 08/08/23 03/18/24 furosemide 40 mg tablet 60 mg PO Q2D 08/08/23 03/18/24 prednisone 20 mg tablet 20 mg PO DAILY 08/08/23 03/18/24 vitamin E (dl, acetate) 45 mg (100 45 mg PO DAILY 08/08/23 03/18/24 unit) capsule meclizine 25 mg tablet mg PO 03/17/24 03/18/24 umeclidinium 62.5 mcg/actuation 1 inh inhalation DAILY 03/17/24 03/18/24 blister powder for inhalation (Incruse Ellipta) semaglutide (weight loss) 2.4 mg subcut 03/19/24 mg/0.75 mL subcutaneous pen injector (Candace) Previous Rx's ?Medication ?Instructions ?Recorded epinephrine 0.3 mg/0.3 mL 0.3 mg (0.3 mL) IM Q4H PRN 04/07/23 injection, auto-injector (EpiPen anaphylaxis #2 ea 2-Blaise) albuterol sulfate 90 mcg/actuation 2 puff PO Q6H PRN shortness of 12/23/23 aerosol inhaler (Ventolin HFA) breath or wheezing #18 ea fluticasone 250 mcg-salmeterol 50 1 ea PO BID #180 ea 12/29/23 mcg/dose blistr powdr for inhalation (Wixela Inhub) bisacodyl 5 mg tablet,delayed 10 mg (2 x 5 mg) PO BEDTIME 2 days 02/04/24 release (Dulcolax (bisacodyl)) #4 tabs magnesium citrate 150 ml PO DAILY #300 mL 02/04/24 L.acidophil,salivari-Bifido 1 cap PO DAILY #30 caps 03/19/24 bifidum-Strep thermoph 175 mg capsule (Acidophilus Probiotic Blend) sptouk-gtkderyz-kljiccp 2 cap PO QID #720 caps 03/19/24 36,000-114,000-180,000 unit capsule,delay rel (Creon) pantoprazole 40 mg tablet,delayed 40 mg PO DAILY #30 tabs 03/19/24 release sennosides 8.6 mg tablet (Senna 17.2 mg (2 x 8.6 mg) PO BEDTIME 03/19/24 Laxative) #60 tabs simethicone 180 mg capsule 180 mg PO QID 30 days #120 caps 03/19/24 Allergies Allergy/AdvReac Type Severity Reaction Status Date / Time Iodinated Contrast Media Allergy Unknown HIVES Verified 03/20/24 16:20 [CONTRAST, IV] kiwi [KIWI] Allergy Unknown THROAT Verified 03/20/24 16:20 SWELLING Review of Systems Constitutional: Constitutional: Denies body ache(s), Denies chills, Denies fever(s), Denies frequent falls and Denies headache(s) Eyes: Eyes: Denies blurry vision ENT: Reports vertigo, Reports dizziness and Denies headache(s) Cardiovascular: Cardiovascular: Denies chest pain, Denies chest pain at rest and Reports dyspnea Respiratory: Respiratory: Denies cough and Reports dyspnea Gastrointestinal: Gastrointestinal: Denies abdominal pain, Denies nausea and Denies vomiting Musculoskeletal: Musculoskeletal: Denies back pain, Denies arthralgias and Denies joint swelling Integumentary/Breasts: Skin/Breast: Denies rash Neurologic: Reports vertigo, Reports dizziness, Denies frequent falls and Denies headache(s) Psychiatric: Psychiatric: Denies anxiety PMFSH Past Medical History Medical History Pre-op examination Colon cancer screening Hoarseness Dysphagia Throat disorder Bronchitis CHF (congestive heart failure) Afib Allergic rhinitis COPD (chronic obstructive pulmonary disease) CE (obstructive sleep apnea) Obesity (BMI 30-39.9) Hypothyroid Anxiety Palpitation HTN (hypertension) Surgical History Hx of umbilical hernia repair History of surgery on arm Hx of eye surgery Hx of colonoscopy Hx of knee surgery Hx of tonsillectomy Family History Family History Family/Other No problems noted. Social History Social History Household Members: None Housing: Apartment Do you presently have visiting nurse or other home services: Yes Alcohol intake: former Patient Tobacco Use Status: Former Tobacco user Advance Directives: Yes Advance Directives on File: Yes Advance Directives Date on File: 08/11/23 service: No Physical Exam ED Vital Signs: Vital Signs - 24 hr 03/20/24 15:55 03/20/24 16:19 03/20/24 18:30 Temperature 98.2 F 97.9 F Pulse Rate 89 89 83 Respiratory Rate 16 16 16 Blood Pressure 120/87 120/87 139/98 H Pulse Oximetry 98 99 100 Oxygen Delivery Method Room Air Room Air Room Air 03/20/24 19:10 03/20/24 19:15 Temperature 97.5 F 97.5 F Pulse Rate 81 81 Respiratory Rate 17 17 Blood Pressure 121/94 H 121/94 H Pulse Oximetry 100 100 Oxygen Delivery Method Room Air Room Air BMI result Body Mass Index 34.3 Const General: healthy appearing, comfortable, no acute distress, alert and awake Nutritional Appearance: well nourished Orientation/consciousness: patient oriented x3 HENMT Head: Yes normocephalic and Yes atraumatic Eyes Eyelids: Yes eyelids normal Conjunctivae: conjunctivae normal Sclerae: sclerae normal Corneas: corneas normal Pupils: Equal, round and reactive pupils present EOM: EOMs intact bilaterally Neck Neck: Yes full ROM Resp Effort & Inspection: normal respiratory effort, able to speak in complete sentences, no audible wheezes and not labored Auscultation: clear to auscultation bilaterally Cardio Rate: regular rate Rhythm: regular rhythm GI Inspection: No distended Palpation (GI): Soft to palpation, not firm, nontender, no guarding and not rigid Skin General skin exam: elasticity normal Neuro General: patient oriented x3 Cranial nerves: Yes CN's II-XII intact bilaterally, Yes Equal, round and reactive pupils present and Yes Bilaterally intact EOM present Cognition (Neuro): normal cognition Extrem Other: Moving all extremities well without any obvious deformities Medical Decision Making Medical Decision Making MDM Narrative: 68-year-old male with past medical history as documented above presents for evaluation of lightheadedness and dizziness. He also endorses shortness of breath for the last 2 days, his oxygen saturation is 100% on room air. The patient is not tachycardic. He is on Eliquis for AFib, this makes PE much less likely. The patient has a strong history of vertigo which is the likely diagnosis at this time. He did fall but denies hitting his head. A CT scan of the brain was ordered which does not show any evidence of intracranial hemorrhage. The patient's hemoglobin hematocrit are slightly below normal at 12.4 and 35.0 respectively. This is a normocytic anemia. Unclear etiology, the patient denies any black or bloody stool. Electrolytes are significant for a carbon dioxide of 21, chloride of 112 and a magnesium is slightly low at 1.5. Otherwise unremarkable chemistries. The patient's lungs are clear to auscultation. I do not suspect pneumonia does not seem to have an asthma exacerbation or COPD exacerbation. The patient feels safe being discharged home and he will be discharged at this time Differential Diagnosis Differential Diagnoses: The differential diagnosis associated with the presentation includes Vertigo Orthostasis Dehydration Dizziness Intracranial hemorrhage COPD Admission/Observation Consideration of admission/observation: Escalation of care including admission/observation considered Symptoms have resolved, workup largely unremarkable Lab Data MDM Lab Attestation statement: I reviewed the patient's lab results. As above 03/20/24 16:13 03/20/24 16:13 Labs: Lab Results 03/20/24 Range/Units 16:13 WBC 7.9 (4.8-10.8) X10*3/uL RBC 4.02 L (4.60-5.80) X10*6/uL Hgb 12.4 L (14.0-18.0) g/dl Hct 35.0 L (42.0-52.0) % MCV 87.1 (80.0-98.0) fL MCH 30.8 (27.0-33.0) pg MCHC 35.4 (31.0-36.0) g/dl RDW 12.9 (11.0-16.0) % Plt Count 177 (160-400) X10*3/uL MPV 10.0 (9.4-12.4) fL Immature Gran % (Auto) 0.3 (0.0-0.4) % Neut % (Auto) 65.3 (45-73) % Lymph % (Auto) 20.2 (20-40) % Stephenson % (Auto) 13.1 H (2-11) % Eos % (Auto) 0.6 (0-4) % Baso % (Auto) 0.5 (0-2) % Lymph # (Auto) 1.6 (1.2-4.9) X10*3/uL Stephenson # (Auto) 1.0 (0.1-1.2) X10*3/uL Eos # (Auto) 0.1 (0.0-0.4) X10*3/uL Baso # (Auto) 0.0 (0.0-0.2) X10*3/uL Abs Immat Gran (auto) 0.02 (0.00-0.03) X10*3/uL Absolute Neuts (auto) 5.2 (2.0-8.3) x10*3/uL Absolute Nucleated RBC 0.000 (0.0-0.012) X10*3/uL Nucleated RBC % (auto) 0.0 (0.0-0.2) /100WBC Hold Blue Top SEE NOTE Sodium 143 (135-145) mmol/L Potassium 3.9 (3.3-5.1) mmol/L Chloride 112 H (96-108) mmol/L Carbon Dioxide 21 L (22-29) mmol/L Anion Gap 14 (12-20) BUN 14 (9-16) mg/dL Creatinine 1.20 (0.5-1.4) mg/dL Estim Creat Clear Calc 64.0 Estimated GFR > 60 Random Glucose 85 (60-115) mg/dL Calcium 9.4 (8.4-10.2) mg/dL Magnesium 1.5 L (1.6-2.6) mg/dL Total Bilirubin 0.9 (0.0-1.0) mg/dL AST 19 (5-37) U/L ALT 21 (0-40) U/L Alkaline Phosphatase 40 (39-117) U/L Troponin I High Sens < 2.7 (<3.5-35.0) ng/L Total Protein 6.2 L (6.5-8.0) g/dL Albumin 3.8 (3.5-5.0) g/dL Independent Interpretation I performed an independent interpretation of an: EKG (AFib with a rate of 83 beats per minute. No ST segment elevation TN) and CT Scan (Agree with Radiology interpretation) Radiology Impression Discussion of test interpretation with radiology: I have reviewed the radiologist's reading. Radiologist Impression: TECHNIQUE: Contiguous axial imaging was performed from the skull base to vertex without intravenous administration of contrast. This CT examination was performed using dose optimization techniques as appropriate, variously including the following: *Automated exposure control *Adjustment of mA and/or kV according to patient size (this includes techniques or standardized protocols for targeted exams where dose is matched to indication/reason for exam; i.e. extremities or head) *Use of iterative reconstruction technique DLP: 792 mGy-cm RESULTS: There is no evidence of acute intracranial hemorrhage, acute large vessel infarct, midline shift or mass effect. The lopes-white differentiation is preserved. The ventricles and sulci are within normal limits in size and configuration. There is no evidence of hydrocephalus. There are no extraaxial collections. Osseous structures are intact. Paranasal sinuses and mastoid air cells are well aerated. CT/CT head/brain wo IV con IMPRESSION: No acute intracranial pathology. Electronically signed by: Nenita Duque MD 03/20/2024 06:11 PM [facility] Discharge Plan Discharge Clinical Impression: Dizziness Patient Disposition: Home, Self-Care Instructions: Benign Paroxysmal Positional Vertigo (ED) Additional Instructions: Your workup in the ER today was reassuring. This includes your labs, EKG. Your CT scan did not show any evidence of traumatic injuries Follow-up with your primary doctor, return for new or worsening symptoms Prescriptions: No Action albuterol sulfate [Ventolin HFA] 90 mcg/actuation HFA aerosol inhaler 2 puff PO Q6H PRN (Reason: shortness of breath or wheezing) Qty: 18 0RF fluticasone propion-salmeterol [Wixela Inhub] 250-50 mcg/dose blister with device 1 ea PO BID Qty: 180 1RF epinephrine [EpiPen 2-Blaise] 0.3 mg/0.3 mL auto-injector 0.3 mg IM Q4H PRN (Reason: anaphylaxis) Qty: 2 0RF cyclobenzaprine 10 mg tablet 10 mg PO BEDTIME furosemide 40 mg tablet 60 mg PO Q2D vitamin E (dl, acetate) 45 mg (100 unit) capsule 45 mg PO DAILY diclofenac sodium 1 % gel 2 g topical QID prednisone 20 mg tablet 20 mg PO DAILY loratadine 10 mg tablet 10 mg PO DAILY zolpidem 10 mg tablet 10 mg PO BEDTIME PRN (Reason: Insomnia) hydroxyzine pamoate 25 mg capsule 25 mg PO BID PRN (Reason: Anxiety) cholecalciferol (vitamin D3) 50 mcg (2,000 unit) tablet 50 mcg PO DAILY lisinopril 40 mg tablet 40 mg PO DAILY apixaban 5 mg tablet 5 mg PO BID clonazepam 1 mg tablet 1 mg PO BID PRN (Reason: Anxiety) rosuvastatin 40 mg tablet 40 mg PO DAILY metoprolol succinate 200 mg tablet extended release 24 hr 200 mg PO DAILY levothyroxine 100 mcg tablet 100 mcg PO DAILY albuterol sulfate 2.5 mg /3 mL (0.083 %) solution for nebulization 3 mg inhalation QID PRN (Reason: Shortness Of Breath Or Wheezing) bisacodyl [Dulcolax (bisacodyl)] 5 mg tablet,delayed release (DR/EC) 10 mg PO BEDTIME 2 Days Qty: 4 0RF magnesium citrate Solution 150 ml PO DAILY Qty: 300 0RF Rx Instructions: For 2 days colonoscopy prep Incruse Ellipta 62.5 mcg/actuation blister with device 1 inh inhalation DAILY meclizine 25 mg tablet PO Wegovy 2.4 mg/0.75 mL pen injector subcut Creon 36,000-114,000- 180,000 unit capsule,delayed release(DR/EC) 2 cap PO QID Qty: 720 1RF L.acidoph,saliva-B.bif-S.therm [Acidophilus Probiotic Blend] 175 mg capsule 1 cap PO DAILY Qty: 30 6RF pantoprazole 40 mg tablet,delayed release (DR/EC) 40 mg PO DAILY Qty: 30 6RF sennosides [Senna Laxative] 8.6 mg tablet 17.2 mg PO BEDTIME Qty: 60 6RF simethicone 180 mg capsule 180 mg PO QID 30 Days Qty: 120 6RF Rx Instructions: after meals Interventions: ED Discharge Assessment Last Done: 03/20/24 19:15 Discharge Date/Time: 03/20/24 19:21 Print Language: Chilean
[2024-03-20 19:10] VITALS: BP 121/94; PULSE 81; RESP 17; TEMP 36.4; O2SAT 100
[2024-03-20 19:15] VITALS: BP 121/94; PULSE 81; RESP 17; TEMP 36.4; O2SAT 100
== END 2024-03-20 19:21 | disposition home or self-care (01) ==
PROVIDERS: Emergency Provider Emergency Medicine; PCP Internal Medicine
DX: R42 Dizziness and giddiness (principal); I10 Essential (primary) hypertension; I48.91 Unspecified atrial fibrillation; J44.9 Chronic obstructive pulmonary disease, unspecified; Z79.01 Long term (current) use of anticoagulants; Z79.02 Long term (current) use of antithrombotics/antiplatelets; Z79.899 Other long term (current) drug therapy
CPT/HCPCS: 36415; 70450; 80053; 83735; 84484; 85025; 93005; 99284

== ENCOUNTER → 2024-03-20 15:59 | Outpatient (BNV) | payer OTHER, SELFPAY | PROVIDERS: Emergency Provider Emergency Medicine; PCP Internal Medicine; Visit Provider Internal Medicine Cardiovascular Disease | DX: R94.31 Abnormal electrocardiogram [ECG] [EKG] (principal) | CPT/HCPCS: 93010 ==

== ENCOUNTER 2024-05-03 08:10 | Outpatient (REF) | payer OTHER, SELFPAY ==
[2024-05-03 12:30] LABS: Albumin Level 3.9 g/dL (3.5-5.0); Alkaline Phosphatase 39 U/L (39-117); Anion Gap 12 (12-20); Aspartate Amino Transferase 25 U/L (5-37); Bilirubin Total 0.8 mg/dL (0.0-1.0); Blood Urea Nitrogen 9 mg/dL (9-16); Calcium 8.7 mg/dL (8.4-10.2); Carbon Dioxide 30 mmol/L (22-29); Chloride 104 mmol/L (96-108); Cholesterol 118 mg/dL (<200); Estimated Glomerular Filt Rate > 60; Glucose Random 73 mg/dL (60-115); HDL Cholesterol 31 mg/dL (>40); LDL Cholesterol Calculated 41 mg/dL (<100); Sodium 142 mmol/L (135-145); Total Protein 6.7 g/dL (6.5-8.0); Triglycerides 230 mg/dL (<150)
[2024-05-03 14:01] LABS: Alanine Aminotransferase 27 U/L (0-40)
== END 2024-05-03 08:11 | disposition home or self-care (01) ==
LOC: HO.HHCL 08:10
PROVIDERS: Visit Provider Internal Medicine
DX: Z01.818 Encounter for other preprocedural examination (principal); N18.30 Chronic kidney disease, stage 3 unspecified; R73.03 Prediabetes
CPT/HCPCS: 36415; 80053; 80061

== ENCOUNTER 2024-05-04 09:36 | Outpatient (REF) | payer OTHER, SELFPAY ==
[2024-05-04 11:01] LABS: Appearance Urine Clear; Color Urine Dark Yellow; Glucose Urine UA Negative (Negative); Leukocyte Esterase Urine Small (1+) (Negative); Nitrite Urine Negative (Negative); Specific Gravity - Urine 1.025 (1.005-1.025); UMIC TRIGGER UA YES; Urine Blood Negative (Negative); Urine Ketones Trace mg/dL (Negative); Urine Protein 30 (1+) mg/dL (Neg-Trace)
[2024-05-04 11:20] LABS: Bacteria Urine None Seen (None Seen); RBC Urine 0-2 /HPF (0-2); Squamous Epithelial Cell Urine 0-2 /HPF (0-2); WBC Urine 0-5 /HPF (0-5)
[2024-05-04 11:47] LABS: Creatinine Urine 306.08 mg/dL; Total Protein Urine Random 30 mg/dL (<12)
[2024-05-04 12:03] LABS: Anion Gap 10 (12-20); Blood Urea Nitrogen 17 mg/dL (9-16); Calcium 9.4 mg/dL (8.4-10.2); Carbon Dioxide 29 mmol/L (22-29); Chloride 107 mmol/L (96-108); Estimated Glomerular Filt Rate 59; Glucose Random 85 mg/dL (60-115); Potassium 4.2 mmol/L (3.3-5.1); Sodium 142 mmol/L (135-145)
== END 2024-05-04 09:37 | disposition home or self-care (01) ==
LOC: HO.LAB 09:36
PROVIDERS: PCP Internal Medicine; Referring Provider Internal Medicine; Visit Provider Internal Medicine Hypertension Specialist
DX: N18.9 Chronic kidney disease, unspecified (principal)
CPT/HCPCS: 36415; 80048; 81001; 81003; 82570; 84156; 99202

== ENCOUNTER 2024-05-04 09:50 | Outpatient (AMB) | payer OTHER, SELFPAY ==
[2024-05-04 09:38] VITALS: BP 98/68; PULSE 92; O2SAT 98; BMI 32.8
--- NOTE | 2024-05-04 09:38 | HO.NEPHOV_ITS ---
Vital Signs 05/04/24 09:38 Height 5 ft 6 in Weight 203 lb BMI 32.8 BP 98/68 Blood Pressure Location Rt brachial Position Sitting Pulse 92 Pulse Source Pulse Oximeter Pulse Oximetry (%) 98 Oxygen Delivery Method Room Air Intake Visit Reasons: ENP: CKD/ Conf Trim Machine Operator Required: Yes Trim Machine Operator Name: Luis Manuel [id number] Accompanied by: Self / Same As Patient Allergies Iodinated Contrast Media [CONTRAST, IV] Allergy (Unknown, Verified 05/04/24 09:40) HIVES kiwi [KIWI] Allergy (Unknown, Verified 05/04/24 09:40) THROAT SWELLING Medication List - Last Reconciled 05/04/24 by Claudio Allan MD albuterol sulfate 3 mg inhalation QID PRN albuterol sulfate 90 mcg/actuation (Ventolin HFA) 2 puffs PO Q6H PRN apixaban 5 mg PO BID bisacodyl (Dulcolax (bisacodyl)) 10 mg (2 x 5 mg) PO BEDTIME 2 days cholecalciferol (vitamin D3) 50 mcg PO DAILY clonazepam 1 mg PO BID PRN cyclobenzaprine 10 mg PO BEDTIME diclofenac sodium 1% 2 grams topical QID epinephrine (EpiPen 2-Blaise) 0.3 mg (0.3 mL) IM Q4H PRN fluticasone propion-salmeterol 250-50 mcg/dose (Wixela Inhub) 1 ea PO BID furosemide 60 mg PO Q2D hydroxyzine pamoate 25 mg PO BID PRN L.acidoph,saliva-B.bif-S.therm 175 mg (Acidophilus Probiotic Blend) 1 cap PO DAILY levothyroxine 100 mcg PO DAILY tiwitz-qwlfpuuf-sgpkpwt 36,000-114,000- 180,000 unit (Creon) 2 caps PO QID lisinopril 40 mg PO DAILY loratadine 10 mg PO DAILY magnesium citrate 150 mL PO DAILY meclizine mg PO metoprolol succinate ER 200 mg PO DAILY pantoprazole 40 mg PO DAILY prednisone 20 mg PO DAILY rosuvastatin 40 mg PO DAILY semaglutide (weight loss) (Wegovy) mg subcut sennosides (Senna Laxative) 17.2 mg (2 x 8.6 mg) PO BEDTIME simethicone 180 mg PO QID 30 days umeclidinium 62.5 mcg/actuation (Incruse Ellipta) 1 inh inhalation DAILY vitamin E (dl, acetate) 45 mg PO DAILY zolpidem 10 mg PO BEDTIME PRN HPI Comments Details: Min is a pleasant 68-year-old man with a history of obesity with hypertension has been referred for chronic kidney disease. Two months ago creatinine was 1.46. Subsequently this has improved. He is on Wegovy and he was lost about 40 lb. [facility] Medical History Pre-op examination Colon cancer screening Hoarseness Dysphagia Throat disorder Bronchitis CHF (congestive heart failure) Afib Allergic rhinitis COPD (chronic obstructive pulmonary disease) CE (obstructive sleep apnea) Obesity (BMI 30-39.9) Hypothyroid Anxiety Palpitation HTN (hypertension) Surgical History Hx of umbilical hernia repair History of surgery on arm Hx of eye surgery Hx of colonoscopy Hx of knee surgery Hx of tonsillectomy Family History Family/Other No problems noted. Social History Household Members: None Housing: Apartment Do you presently have visiting nurse or other home services: Yes Alcohol intake: former Patient Tobacco Use Status: Former Tobacco user Advance Directives Date on File: 08/11/23 service: No Review of Systems Const Denies fever(s) and Denies weight loss Card Denies chest pain Resp Denies cough and Denies hemoptysis GI Denies abdominal pain, Denies diarrhea and Denies nausea Musc Denies back pain Neuro Denies focal weakness Physical Exam Vital Signs: Last Vital Signs Pulse 92 05/04/24 09:38 BP 98/68 05/04/24 09:38 Pulse Ox 98 05/04/24 09:38 Oxygen Delivery Method Room Air 05/04/24 09:38 BMI result Body Mass Index 32.8 Comfortable Neck supple no JVD. Lungs entry equal no rales. Heart S1-S2 heard no gallop or rub. Abdomen soft nontender. Neuro alert awake oriented. No asterixis. Extremities no edema. Results Reviewed Nephrology Results: Hgb 12.4 g/dl (14.0-18.0) L 03/20/24 WBC 7.9 X10*3/uL (4.8-10.8) 03/20/24 Plt Count 177 X10*3/uL (160-400) 03/20/24 Sodium 142 mmol/L (135-145) 05/03/24 Potassium 4.0 mmol/L (3.3-5.1) 05/03/24 Chloride 104 mmol/L (96-108) 05/03/24 Carbon Dioxide 30 mmol/L (22-29) H 05/03/24 BUN 9 mg/dL (9-16) 05/03/24 Creatinine 1.17 mg/dL (0.5-1.4) 05/03/24 Calcium 8.7 mg/dL (8.4-10.2) 05/03/24 Assessment & Plan Assessment & Plan (1) CKD (chronic kidney disease): Code(s): N18.9 - Chronic kidney disease, unspecified Category: Medical Plan 68-year-old man with the acute kidney injury superimposed on chronic kidney disease. Acute kidney injury has resolved. He was underlying chronic kidney disease most likely due to hypertensive nephrosclerosis. In 2022 abdominal ultrasonogram showed a nonobstructing calculi in the right kidney. At present I do not think he has a obstructive uropathy however he needs a follow-up ultrasonogram. Optimize blood pressure control. Avoid hypotension. I have asked him to bring all his medications next visit and we might have to lower his lisinopril based on the blood pressure. I have initiated a comprehensive workup for underlying CKD. I will keep you updated Orders: Orders Basic Metabolic Panel Today N18.9 - Chronic kidney disease, unspecified UA and rflx microscopic Today N18.9 - Chronic kidney disease, unspecified Creatinine Urine Today N18.9 - Chronic kidney disease, unspecified Total Protein Urine Random Today N18.9 - Chronic kidney disease, unspecified US renal BI Today I10 - Essential (primary) hypertension, N18.9 - Chronic kidney disease, unspecified Coding Level of Care Code New Pt Level 4 (97901) Diagnoses CKD (chronic kidney disease) N18.9
== END 2024-05-04 10:02 | disposition home or self-care (01) ==
PROVIDERS: PCP Internal Medicine; Referring Provider Internal Medicine; Visit Provider Internal Medicine Hypertension Specialist
DX: N18.9 Chronic kidney disease, unspecified (principal)
CPT/HCPCS: 99204

== ENCOUNTER 2024-05-11 12:17 | Outpatient (REF) | payer OTHER, SELFPAY ==
--- NOTE | ~2024-05-11 | US_ITS ---
CLINICAL HISTORY: I10 - Essential (primary) hypertension US renal Comparison: 08/14/2022 Findings: Right kidney 12.9 cm length. 2.8 cm upper pole cyst. 5 mm lower pole stone. Left kidney 13.7 cm length. Thin cortex noted on the left. This most likely indicates chronic disease. 2.5 cm midpole cyst. No bilateral hydronephrosis. Normal bilateral renal echogenicity. Impression: 5 mm nonobstructing right renal stone Thin left renal cortex consistent with chronic disease This document has been electronically signed by: Edis Carl MD on 05/11/2024 18:41:19
== END 2024-05-11 12:18 | disposition home or self-care (01) ==
LOC: HO.US 12:17
PROVIDERS: PCP Internal Medicine; Visit Provider Internal Medicine Hypertension Specialist
DX: I12.9 Hypertensive chronic kidney disease with stage 1 through stage 4 chronic kidney disease, or unspecified chronic kidney disease (principal); N18.9 Chronic kidney disease, unspecified
CPT/HCPCS: 76775

== ENCOUNTER → 2024-05-11 12:19 | Outpatient (BNV) | payer OTHER, SELFPAY | PROVIDERS: PCP Internal Medicine; Visit Provider Radiology Diagnostic Radiology | DX: N20.0 Calculus of kidney (principal); I10 Essential (primary) hypertension | CPT/HCPCS: 76775 ==

== ENCOUNTER 2024-05-25 09:27 | Outpatient (AMB) | payer OTHER, SELFPAY ==
[2024-05-25 09:34] VITALS: BP 108/74; PULSE 80; O2SAT 94; BMI 32.1
--- NOTE | 2024-05-25 09:34 | HO.NEPHOV_ITS ---
Vital Signs 05/25/24 09:34 Height 5 ft 6 in Weight 199 lb BMI 32.1 BP 108/74 Blood Pressure Location Rt brachial Position Sitting Pulse 80 Pulse Source Pulse Oximeter Pulse Oximetry (%) 94 Oxygen Delivery Method Room Air Intake Visit Reasons: CKD/ CONF Sale Professional Digital Marketing Required: Yes Accompanied by: Self / Same As Patient Allergies Iodinated Contrast Media [CONTRAST, IV] Allergy (Unknown, Verified 05/25/24 09:36) HIVES kiwi [KIWI] Allergy (Unknown, Verified 05/25/24 09:36) THROAT SWELLING HPI Comments Details: Min is a pleasant 68-year-old man with a history of obesity with hypertension has been referred for chronic kidney disease. Two months ago creatinine was 1.46. Subsequently this has improved. He is on Wegovy and he was lost about 40 lb. 05/25/24 Wegovy had been discontinued Lost 4 lbs since last visit 3 weeks ago [facility] Medical History Pre-op examination Colon cancer screening Hoarseness Dysphagia Throat disorder Bronchitis CHF (congestive heart failure) Afib Allergic rhinitis COPD (chronic obstructive pulmonary disease) CE (obstructive sleep apnea) Obesity (BMI 30-39.9) Hypothyroid Anxiety Palpitation HTN (hypertension) Surgical History Hx of umbilical hernia repair History of surgery on arm Hx of eye surgery Hx of colonoscopy Hx of knee surgery Hx of tonsillectomy Family History Family/Other No problems noted. Social History Household Members: None Housing: Apartment Do you presently have visiting nurse or other home services: Yes Alcohol intake: former Patient Tobacco Use Status: Former Tobacco user Advance Directives Date on File: 08/11/23 service: No Physical Exam Vital Signs: Last Vital Signs Pulse 80 05/25/24 09:34 BP 108/74 05/25/24 09:34 Pulse Ox 94 05/25/24 09:34 Oxygen Delivery Method Room Air 05/25/24 09:34 BMI result Body Mass Index 32.1 Comfortable Neck supple no JVD. Lungs entry equal no rales. Heart S1-S2 heard no gallop or rub. Abdomen soft nontender. Neuro alert awake oriented. No asterixis. Extremities no edema. Results Reviewed Results Reviewed: Apr 2024 USG Right kidney 12.9 cm length. 2.8 cm upper pole cyst. 5 mm lower pole stone. Left kidney 13.7 cm length. Thin cortex noted on the left. This most likely indicates chronic disease. 2.5 cm midpole cyst. No bilateral hydronephrosis. Normal bilateral renal echogenicity. Nephrology Results: Hgb 12.4 g/dl (14.0-18.0) L 03/20/24 WBC 7.9 X10*3/uL (4.8-10.8) 03/20/24 Plt Count 177 X10*3/uL (160-400) 03/20/24 Sodium 142 mmol/L (135-145) 05/04/24 Potassium 4.2 mmol/L (3.3-5.1) 05/04/24 Chloride 107 mmol/L (96-108) 05/04/24 Carbon Dioxide 29 mmol/L (22-29) 05/04/24 BUN 17 mg/dL (9-16) H 05/04/24 Creatinine 1.23 mg/dL (0.5-1.4) 05/04/24 Calcium 9.4 mg/dL (8.4-10.2) 05/04/24 Urine Protein 30 (1+) mg/dL (Neg-Trace) H 05/04/24 Urine Creatinine 306.08 mg/dL 05/04/24 Renal US 05/11/24 Assessment & Plan Assessment & Plan (1) CKD (chronic kidney disease): Code(s): N18.9 - Chronic kidney disease, unspecified Category: Medical Plan 68-year-old man with the acute kidney injury superimposed on chronic kidney disease. Acute kidney injury has resolved. He was underlying chronic kidney disease most likely due to hypertensive nephrosclerosis. In 2022 abdominal ultrasonogram showed a nonobstructing calculi in the right kidney. No obstructive uropathy based on ultrasonogram in Apr 2024 Optimize blood pressure control. Avoid hypotension. Since BP is relatively low, Lisinopril can be decreased by 50 % to 20 mg a day Orders: Orders Basic Metabolic Panel 3 Months N18.9 - Chronic kidney disease, unspecified Coding Level of Care Code Est Pt Level 4 (15138) Diagnoses CKD (chronic kidney disease) N18.9
== END 2024-05-25 09:51 | disposition home or self-care (01) ==
PROVIDERS: PCP Internal Medicine; Visit Provider Internal Medicine Hypertension Specialist
DX: N18.9 Chronic kidney disease, unspecified (principal)
CPT/HCPCS: 99214

== ENCOUNTER → 2024-05-25 09:27 | Outpatient (BNVA) | payer OTHER, SELFPAY | PROVIDERS: PCP Internal Medicine; Visit Provider Internal Medicine Hypertension Specialist | DX: I12.9 Hypertensive chronic kidney disease with stage 1 through stage 4 chronic kidney disease, or unspecified chronic kidney disease (principal); E66.9 Obesity, unspecified; N18.9 Chronic kidney disease, unspecified; Z68.32 Body mass index [BMI] 32.0-32.9, adult | CPT/HCPCS: 99212 ==

== ENCOUNTER 2024-06-16 08:30 | Emergency (ER) | payer OTHER, SELFPAY ==
--- NOTE | ~2024-06-16 | XR_ITS ---
EXAMINATION: XR CHEST CLINICAL INFORMATION: cough COMPARISON: August 08, 2023. TECHNIQUE: Frontal view of the chest was obtained. FINDINGS: Prominence of the interstitial markings. No pleural effusion or pneumothorax. No hyperinflation. Cardiomediastinal silhouette demonstrates calcified plaque Arctic arch. Multilevel thoracic spondylosis. Questionable old healed rib fracture posterior aspect left seventh rib. XR/XR chest 1V IMPRESSION: Mild interstitial edema versus acute small airway inflammatory and/or infectious disease. Electronically signed by: Valentin Resendiz MD 06/16/2024 09:02 AM [facility]
--- NOTE | ~2024-06-16 | XR_ITS ---
EXAMINATION: XR SHOULDER, LEFT CLINICAL INFORMATION: pain, trauma COMPARISON: None available. TECHNIQUE: AP external rotation, Grashey, scapular Y, and axillary views of the left shoulder. FINDINGS: Mild loss of glenohumeral and AC joint space without bony erosive changes, loose body or periarticular spurring. No acute fracture or dislocation seen no soft tissue calcification or soft tissue swelling. XR/XR shoulder LT min 2V IMPRESSION: Mild early degenerative changes left shoulder joint. No acute fracture or dislocation. Electronically signed by: Chacorta Noland MD 06/16/2024 12:59 PM EST
--- NOTE | ~2024-06-16 | CT_ITS ---
EXAMINATION: CT HEAD WITHOUT CONTRAST CLINICAL INFORMATION: Fall with head strike. Blood thinners. COMPARISON: Numerous priors, most recently 03/20/2024. TECHNIQUE: Contiguous axial imaging was performed from the skull base to vertex without intravenous administration of contrast. This CT examination was performed using dose optimization techniques as appropriate, variously including the following: *Automated exposure control *Adjustment of mA and/or kV according to patient size (this includes techniques or standardized protocols for targeted exams where dose is matched to indication/reason for exam; i.e. extremities or head) *Use of iterative reconstruction technique FINDINGS: There is no evidence of intracranial hemorrhage or extra-axial fluid collection. There is no mass effect, or edema. No CT evidence of acute territorial infarct. Ventricles, sulci, and cisterns are normal in size and configuration for patient age. No hydrocephalus. No midline shift. No significant white matter abnormalities. Empty sella noted. Mild atheromatous calcification of the bilateral carotid siphons and V4 segments vertebral arteries bilaterally. Globes and orbital contents image normally. No extracranial soft tissue abnormalities. Mild mucoperiosteal thickening throughout the ethmoid and bilateral maxillary sinuses. The remainder of the paranasal sinuses, mastoid air cells, and tympanic cavities are normally aerated. No suspicious bony abnormalities. No fractures evident. CT/CT head/brain wo IV con IMPRESSION: No acute intracranial abnormality. No fracture evident. Electronically signed by: Bladimir Doherty MD 06/16/2024 09:49 AM [facility]
--- NOTE | ~2024-06-16 | CT_ITS ---
EXAMINATION: CT CERVICAL SPINE WITHOUT CONTRAST CLINICAL INFORMATION: Fall, head strike; neck pain. COMPARISON: 06/19/2023. TECHNIQUE: Spiral CT examination of the cervical spine performed in axial plane, without IV contrast. Sagittal, coronal, and thin section axial reformatted images were constructed from the axial data set. This CT examination was performed using dose optimization techniques as appropriate, variously including the following: *Automated exposure control *Adjustment of mA and/or kV according to patient size (this includes techniques or standardized protocols for targeted exams where dose is matched to indication/reason for exam; i.e. extremities or head) *Use of iterative reconstruction technique FINDINGS: There is moderate motion degradation in the superior aspect of the cervical region, limiting sensitivity. There is a mild levoconvex scoliosis, centered at C5. Straightening of the normal lordosis, nonspecific. Within confines of motion, no discrete fracture, compression deformity, traumatic subluxation, or suspicious bone lesion. Normal sagittal alignment without subluxation. There is a small bone island within the spinous process of C4. Severe disc degeneration focally at C3-4, with sclerosis of the endplates and spurring. Normal facet alignment. Hypertrophic degenerative facet changes, significant at C2-3 on the left. Uncinate spurring right greater than left, C3-4. Grossly no canal stenosis given modality limitation. C1-2 articulation and craniocervical junction are intact and aligned allowing for motion artifact. No prevertebral soft tissue abnormalities. Heavy calcification of the left greater than right carotid bulbs. Normal thyroid. Imaged lung apices clear. CT/CT cervical spine wo IV con IMPRESSION: 1. Somewhat limited exam due to motion as detailed. 2. No CT evidence of acute cervical spine fracture or injury. 3. Spondylosis as discussed, most significant at C2-3 and C3-4. 4. Heavy left greater than right carotid bulb calcification. 5. No significant interval change from 06/19/2023. Electronically signed by: Bladimir Doherty MD 06/16/2024 09:56 AM EST
[2024-06-16 08:31] VITALS: BP 141/69; PULSE 118; RESP 22; TEMP 36.5; O2SAT 99; BMI 32.5
--- NOTE | 2024-06-16 08:38 | ECG_ITS ---
Test Reason : dyspnea Blood Pressure : */* mmHG Vent. Rate : 111 BPM Atrial Rate : * BPM P-R Int : * ms QRS Dur : 80 ms QT Int : 316 ms P-R-T Axes : * 8 16 degrees QTcB Int : 429 ms Atrial fibrillation with rapid ventricular response Abnormal ECG When compared with ECG of 20-Mar-2024 15:59, No significant change was found Referred By: Generic ED Physician Electronically Signed By: Jez Welch
--- OUTSIDE RECORDS SUMMARY | 2024-06-16 08:58 | XMS_ITS | Encounter Summary ---
Author Organization [employer] Address [address] [facility] [address] [place] [address] Care Team Providers Care Business Continuity Specialist Name Role Phone Gemini Chavez MD Primary Care Provide r Reason for Visit * Reason Onset Date Comments Prior Authorization 06/10/2024 Encounter Details Date Type Department Care Team ([facility] st Contact Info) Description 06/10/2024 Telephone [facility] [address] [place], [place] [phone] Gemini Chavez MD [address] [place] [address] Prior Authorization Social History Tobacco Use Types Packs/Day Years Used Date Smoking Tobacco: Former Cigarettes Passive Smoke Exposure: Past Smokeless Tobacco: Never Alcohol Use Standard Drinks/Week Comments Never 0 (1 standard drink = 0.6 oz pur e alcohol) Depression Answer Date Recorded Patient Health Questionnaire-9 Score 0 09/03/2023 Patient Health Questionnaire-9 Score 0 09/03/2023 Last PHQ-9: Questionnaire Data Not on file 0 09/03/2023 Housing Stability Answer Date Recorded What is your housing situation today? I have hubert doshi 10/31/[address] you li ve. Do you have problems with any of the following? None of the above 10/31/2023 Food Insecurity Answer Date Recorded Within the past 12 months, y ou worried that your food would run out before you got money to buy more: Never True 10/31/2023 Within the past 12 months,th e food you bought just didn't last and you didn't have enough money to get more: Never True Transportation Answer Date Recorded In the past 12 months, has l ack of transportation kept you from medical appts, meetings, work or from getting things needed for daily living? No 10/31/2023 Utilities Answer Date Recorded In the past 12 months, has t he electric, gas, oil or water company threatened to shut off services in your home? Yes 10/31/2023 Depression Answer Date Recorded Patient Health Questionnaire-2 Score 0 09/03/2023 Internet Access Answer Date Recorded Internet Access Q1 Yes 01/09/2024 Internet Access Q2 Not on file 01/09/2024 Sex and Gender Information Value Date Recorded Sex Assigned at Male 03/11/2022 10:15 AM EDT Legal Sex Male 10:15 AM EDT Gender Identity Male 03/11/2022 10:15 AM EDT Sexual Orientation Straight 03/11/2022 10 :15 AM EDT documented as of this encounter Miscellaneous Notes * Telephone Encounter - Rohit Cruz - 06/10/2024 9:00 AM EST Tc from pt requesting a PA for Tirzepatide-Weight Management (Zepbound) 2.5 MG/0.5ML solution auto-injector because pt stated that he received a letter stating that PA got denied. Contact pt: [phone] (Afghan) documented in this encounter Plan of Treatment Upcoming Encounters Date Type Department Care Team (Late st Contact Info) Description 07/22/2024 11:00 AM EDT Office Visit [facility] [address] [place], [place] [phone] Gemini Chavze MD [address] [place] [address] documented as of this encounter Visit Diagnoses Not on filedocumented in this encounter Additional Health Concerns Assessment Noted Time PHQ-9 Depression Total Score: 0 09/03/19 24 9:55 AM EDT documented as of this encounter Care Teams Business Continuity Specialist Relationship Specialty Start Date End Date Gemini Chavez MD [address] [place], [place] [phone] PCP - General Family Medicine 01/21/18 [employer] 03/28/24 documented as of this encounter
--- OUTSIDE RECORDS SUMMARY | 2024-06-16 08:58 | XMS_ITS | Encounter Summary ---
Author Organization [employer] Address [address] [facility] 7t [place] [address] Care Team Providers Care Spanish Professor Name Role Phone Gemini Chavez MD Primary Care Provide r Reason for Visit * Reason Comments Med Refill Encounter Details Date Type Department Care Team ([facility] st Contact Info) Description 02/12/2024 Refill [facility] [address] [place], [place] [phone] Gemini Chavez MD [address] [place] [address] Prediabetes Social History Tobacco Use Types Packs/Day Years [...] AM EDT documented as of this encounter Plan of Treatment Upcoming Encounters Date Type Department Care Team (Late st Contact Info) Description 07/22/2024 11:00 AM EDT Office Visit [facility] [address] [place] [phone] Gemini Chavez MD [address] [place] [address] documented as of this encounter Visit Diagnoses Diagnosis Prediabetes Other abnormal glucose documented in this encounter Additional Health Concerns Assessment Noted Time PHQ-9 Depression Total Score: 0 09/03/19 24 9:55 AM EDT documented as of this encounter Care Teams Spanish Professor Relationship Specialty Start Date End Date Gemini Chavez MD [address] [place] [phone] PCP - General Family Medicine 01/21/18 [employer] 03/28/24 documented as of this encounter
--- OUTSIDE RECORDS SUMMARY | 2024-06-16 08:58 | XMS_ITS | Clinical Summary ---
Author Organization [address] [facility] Address [address] [place] [address] Phone Care Team Providers Care Steel Worker Name Role Phone Gemini Chavez MD Primary Care Provide r Allergies No known active allergies Encounters Date Type Department Care Team Description 06/02/2024 1:45 PM EST Office Visit [facility] [address] [phone] Gallito Hancock DPM Ingrowing nail (Primary Dx); Type II diabetes mellitus with peripheral circulatory disorder (CMS/HCC) from Last 3 Months Social History Tobacco Use Types Packs/Day Years Used Date Smoking Tobacco: Never Assessed Sex and Gender Information Value Date Recorded Sex Assigned at Not on file Gender Identity Not on file Sexual Orientation Not on file Job Start Date Occupation Industry Not on file Not on file Not on file Last Filed Vital Signs Vital Sign Reading Time Taken Comments Blood Pressure - - Pulse - - Temperature - - Respiratory Rate - - Oxygen Saturation - - Inhaled Oxygen Concentration - - Weight 104 kg (230 lb) 06/02/2024 1:35 PM EST Height 167.6 cm (5' 5.98 ) 06/02/2024 1:35 PM ES T Body Mass Index 37.14 06/02/2024 1:35 PM EST Plan of Treatment Upcoming Encounters Date Type Department Care Team (Late st Contact Info) Description 09/01/2024 1:00 PM EDT Office Visit [facility] [address] [phone] Gallito Hancock DPM [address] [address] Health Maintenance Due Date Last Done Comments Diabetes: Annual Foot Exam 11/18/1965 Diabetes: Annual Retina Eye Exam 11/18/1965 Hepatitis A Vaccines (1 of 2 - Risk 2-dose series) 11/18/1974 Zoster Vaccines (1 of 2) 11/18/2005 Hepatitis B Vaccines (1 of 3 - Risk 3-dose series) 2015 Abdominal Aortic Aneurysm (AAA) Screen 06/06/2023 Colorectal Cancer Screening: Colonoscopy 06/06/2023 Falls Risk Assessment 06/06/2023 Hepatitis C Screening 06/06/2023 Medicare Annual Wellness Visit 06/06/2023 Social Influencers of Health Screening 06/06/2023 Diabetes: Annual Urine Albumin-Creatinine Ratio (uACR) 06/02/2024 Diabetes: Blood Sugar Control Test (HGBA1C) 06/02/2024 11/11/2023 Depression Screening 09/02/2024 09/03/2023 Diabetes: Annual GFR (Glomerular Filtration Rate) 05/04/2025 05/04/2024, 05/03/2024 Hypertension/CHF/CAD Annual BMP Blood Test 05/04/2025 05/04/2024, 05/03/2024 Cholesterol Screening (Lipid Panel) 05/03/2029 05/03/2024 DTaP,Tdap,and Td Vaccines (5 - Td or Tdap) 04/10/2031 04/10/2021, 06/16/2014, 01/30/2006, Additional history exists Pneumococcal Vaccine: 65+ Years Completed 11/04/2022, 02/03/2015, 01/24/2015, Additional history exists RSV Immunization Patients 60+ Years Old Completed 05/19/2023 Influenza Vaccine Completed 01/05/2024, , 01/23/2022, Additional history exists COVID-19 Vaccine Completed 02/11/2024, , 04/24/2022, Additional history exists HIB Vaccines Aged Out No longer eligi ble based on patient's age to complete this topic HPV Vaccines Aged Out No longer eligi ble based on patient's age to complete this topic IPV Vaccines Aged Out No longer eligi ble based on patient's age to complete this topic MMR Vaccines Aged Out No longer eligi ble based on patient's age to complete this topic Meningococcal ACWY Vaccine Aged Out N o longer eligible based on patient's age to complete this topic RSV Immunization Patients Under 20 months Aged Out No longer eligible based on patient's age to complete this topic Varicella Vaccines Aged Out No longer eligible based on patient's age to complete this topic Care Teams Steel Worker Relationship Specialty Start Date End Date Gemini Chavez MD [address] [place] [phone] PCP - General 04/24/23
--- OUTSIDE RECORDS SUMMARY | 2024-06-16 08:58 | XMS_ITS | Encounter Summary ---
Author Organization [employer] Address [address] [facility] 7t [place] [address] Care Team Providers Care J2Ee Java Developer Name Role Phone Gemini Chavez MD Primary Care Provide r Reason for Visit * Reason Comments Med Refill Encounter Details Date Type Department Care Team ([facility] st Contact Info) Description 06/09/2024 Refill [facility] [address] [place], [place] [phone] Gemini Ochoa MD [address] [place] [address] Primary hypertension Social History Tobacco Use Types Packs/Day Years [...] Description 07/22/2024 11:00 AM EDT Office Visit [facility] [address] [place] [phone] Gemini Chavez MD [address] [place] [phone] documented as of this encounter Visit Diagnoses Diagnosis Primary hypertension Unspecified essential hypertension documented in this encounter Additional Health Concerns Assessment Noted Time PHQ-9 Depression Total Score: 0 09/03/19 24 9:55 AM EDT documented as of this encounter Care Teams J2Ee Java Developer Relationship Specialty Start Date End Date Gemini Chavez MD [address] [place] [phone] PCP - General Family Medicine 01/21/18 [employer] 03/28/24 documented as of this encounter
--- OUTSIDE RECORDS SUMMARY | 2024-06-16 08:58 | XMS_ITS | Encounter Summary ---
Author Organization [employer] Address [address] [facility] 7t [place] [address] Care Team Providers Care Senior Patient Account Representative Name Role Phone Gemini Chavez MD Primary Care Provide r Encounter Details Date Type Department Care Team (Late st Contact Info) Description 02/19/2023 Abstract [facility] [address] [place], [place] [phone] Gemini Chavez MD [address] [place], [place] [phone] Social History Tobacco Use Types Packs/Day Years Used Date Smoking Tobacco: Never Passive Smoke Exposure: Never Smokeless Tobacco: Never Alcohol Use Standard Drinks/Week Comments Never 0 (1 standard drink = 0.6 oz pur e alcohol) Depression Answer Date Recorded Patient Health Questionnaire-9 Score 6 05/16/2022 Housing Stability Answer Date Recorded What is your housing situation today? I have hbuertjuarez doshi 02/18/[address] you li ve. Do you have problems with any of the following? None of the above 02/18/2023 Food Insecurity Answer Date Recorded Within the past 12 months, y ou worried that your food would run out before you got money to buy more: Never True 02/18/2023 Within the past 12 months,th e food you bought just didn't last and you didn't have enough money to get more: Never True 02/2023 Transportation Answer Date Recorded In the past 12 months, has l ack of transportation kept you from medical appts, meetings, work or from getting things needed for daily living? No 02/18/2023 Utilities Answer Date Recorded In the past 12 months, has t he electric, gas, oil or water company threatened to shut off services in your home? No 02/18/2023 Depression Answer Date Recorded Patient Health Questionnaire-2 Score 2 05/16/2022 Sex and Gender Information Value Date Recorded Sex Assigned at Male 03/11/2022 10:15 AM EDT Legal Sex Male 10:15 AM EDT Gender Identity Male 03/11/2022 10:15 AM EDT Sexual Orientation Straight 03/11/2022 10 :15 AM EDT documented as of this encounter Plan of Treatment Upcoming Encounters Date Type Department Care Team (Late st Contact Info) Description 07/22/2024 11:00 AM EDT Office Visit [facility] [address] [place] [address] Gemini Chavez MD [address] [place] [address] documented as of this encounter Visit Diagnoses Not on filedocumented in this encounter Additional Health Concerns Assessment Noted Time PHQ-9 Depression Total Score: 6 05/16/19 23 1:42 PM EST documented as of this encounter Care Teams Senior Patient Account Representative Relationship Specialty Start Date End Date Gemini Chavez MD [address] [place] [address] PCP - General Family Medicine 01/21/18 [employer] 03/28/24 documented as of this encounter
--- OUTSIDE RECORDS SUMMARY | 2024-06-16 08:58 | XMS_ITS | Clinical Summary ---
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 Name Role Phone Gemini Chavez MD Primary Care Provide r Allergies Active Allergy Reactions Criticality Noted Date Comments Iodinated Contrast Media Hives 05/20/2023 Kiwi Extract 04/25/2017 Medications clonazePAM (KlonoPIN) 1 MG tablet TOME FAUSTINA TABLETA DOS VECES AL D A CUANDO SEA NECESARIO 2021 Active hydrOXYzine pamoate (Vistaril) 25 MG capsule hydroxyzine pamoate 25 mg capsule TOME FAUSTINA C PSULA DOS VECES AL D A CUANDO SEA NECESARIO Active zolpidem (Ambien) 10 MG tablet zolpidem 10 mg tablet TOME FAUSTINA TABLETA TODOS LOS D AL ACOSTARSE CUANDO SEA NECESARIO 2017 Active simethicone (Mylicon,Gas-X) 180 MG capsule Anti-Gas Ultra Strength 180 mg capsule TOME 1 C PSULA POR V A ORAL CUATRO VECES AL D A AFTER MEALS FOR 30 DAYS Active Respiratory Therapy Supplies (Nebulizer/Tubing/Kala thpiece) kitIndications:Chroni c obstructive pulmonary disease, unspecified COPD type (CMS/HCC) Use along with nebulizer 1 kit 2022 Active Blood Pressure Monitoring ([employer] Blood Pressure Monitor) miscIndications:Prima ry hypertension USE TO MONITOR BLOOD PRESSURE 1 each 2022 Active pantoprazole (ProtoNix) 40 MG EC tablet TAKE 1 TABLET BY MOUTH EVERY DAY 90 tablet 3 2022 Active Acetaminophen Extra Strength 500 MG tabletIndications:Evan yarthralgia TOME FAUSTINA TABLETA POR V A ORAL CADA SEIS HORAS CUANDO SEA NECESARIO MAX 8 TABS DAILY 40 tablet 2 2022 Active furosemide (Lasix) 40 MG tabletIndications:Chr onic systolic heart failure (CMS/HCC) TAKE ALTERNATING DOSE OF 1 TABLET AND 1 1/2 TABLET EVERY OTHER DAY 114 tablet 1 2022 Active cholecalciferol (Vitamin D-3) 50 MCG (2000 UT) tabletIndications:Vit figueroa D deficiency TAKE 1 TABLET BY MOUTH EVERY DAY 90 tablet 3 2023 Active loratadine (Claritin) 10 MG tabletIndications:Sea shady allergies TAKE 1 TABLET BY MOUTH EVERY DAY IF NEEDED FOR ALLERGIES 90 tablet 1 2023 Active cyclobenzaprine (Flexeril) 10 MG tablet Take 1 tablet (10 mg) by mouth at bedtime for 10 days. 10 tablet 2023 Active Ventolin HFA 108 (90 Base) MCG/ACT inhaler Inhale 2 puffs every 4 (four) hours if needed for shortness of breath or wheezing. 2023 Active EPINEPHrine (Epipen) 0.3 MG/0.3ML injection syringe INJECT 0.3 MG (0.3 ML) INTRAMUSCULARLY EVERY 4 HOURS NEEDED FOR ANAPHYLAXIS AND CALL 911 2022 Active Creon 90839-266430 units capsule delayed-release particles capsule Take 2 capsules by mouth 4 times daily. ADMINISTER WITH MEALS AND/OR SNACKS 2022 Active Fluticasone-Salmetero l 250-50 MCG/ACT aerosol powder Inhale 1 puff 2 times daily. 2023 Active Umeclidinium [place] (Incruse Ellipta) 62.5 MCG/ACT aerosol powderIndications:Chr onic obstructive pulmonary disease, unspecified COPD type (CMS/HCC) Take 1 Inhalation. by mouth in the morning. Inhale 1 puff by inhalation route every day at the same time each day 30 each 3 08/21 Active metFORMIN (Glucophage) 500 MG tabletIndications:Pre diabetes Take 1 tablet (500 mg) by mouth with breakfast and with evening meal. 60 tablet 11 11/10 Active rosuvastatin (Crestor) 40 MG tabletIndications:Pur e hypercholesterolemia TAKE 1 TABLET BY MOUTH EVERY DAY 90 tablet 1 2023 Active Semaglutide-Weight Management (Wegovy) 1 MG/0.5ML solution auto-injector INJECT ONE PEN (=1MG) SUBCUTANEOUSLY ONCE A WEEK 2 mL 2023 Active metoprolol succinate XL (Toprol-XL) 200 MG 24 hr tablet TAKE 1 TABLET BY MOUTH EVERY DAY 90 tablet 1 2023 Active hydroCHLOROthiazide 12.5 MG tabletIndications:Hyp ertension, essential TAKE 1 TABLET BY MOUTH EVERY DAY 90 tablet 1 2023 Active cholecalciferol (Vitamin D-3) 25 MCG (1000 UT) tabletIndications:Pre diabetes Take 1 tablet (25 mcg) by mouth Once per day. 60 tablet 1 2023 Active apixaban (Eliquis) 5 MG tablet TAKE 1 TABLET BY MOUTH TWICE A DAY 180 tablet 2023 Active Vitamin E 45 MG (100 UNIT) capsuleIndications:Ac quired hypothyroidism TOME 1 CAPSULA POR VIA ORAL CADA MANANA 30 capsule 11 2023 Active meclizine (Antivert) 25 MG tabletIndications:Josh tigo TOME FAUSTINA TABLETA (25 MG) POR VIA ORAL CUANDO SEA NECESARIO KINJAL VECES AL СЕРГЕЙ (MORNING, NOON AND AT BEDTIME) PARA EL MAREO 30 tablet 2023 Active levothyroxine (Synthroid, Levoxyl) 100 MCG tabletIndications:Acq uired hypothyroidism TAKE 1 TABLET BY MOUTH EVERY DAY 90 tablet 1 2023 Active Semaglutide-Weight Management (Wegovy) 2.4 MG/0.75ML solution auto-injectorIndicati ons:Class 1 obesity due to excess calories with serious comorbidity and body mass index (BMI) of 33.0 to 33.9 in adult INJECT 2.4 ML UNDER THE SKIN EVERY 7 (SEVEN) DAYS. 2 mL 2023 Active Diclofenac Sodium 1 % gel APPLY 2 GRAMS TOPICALLY FOUR TIMES DAILY 300 g 2 2023 Active Tirzepatide-Weight Management (Zepbound) 2.5 MG/0.5ML solution auto-injectorIndicati ons:Class 2 severe obesity due to excess calories with serious comorbidity and body mass index (BMI) of 38.0 to 38.9 in adult ([facility]) Inject 0.5 mL (2.5 mg) under the skin 1 (one) time per week. 2 mL 2023 Active albuterol (2.5 MG/3ML) 0.083% nebulizer solution USE 1 VIAL VIA NEBULIZER KINJAL VECES AL СЕРГЕЙ 150 mL 3 2024 Active lisinopril 40 MG tabletIndications:Zaina singleton hypertension TAKE 1 TABLET BY MOUTH EVERY MORNING 90 tablet 2024 Active albuterol (2.5 MG/3ML) 0.083% nebulizer solution USE 1 VIAL VIA NEBULIZER KINJAL VECES AL СЕРГЕЙ 180 mL 3 06/03 Discontinued lisinopril 40 MG tabletIndications:Zaina singleton hypertension TAKE 1 TABLET BY MOUTH EVERY MORNING 90 tablet 06/09 Discontinued Active Problems Problem Noted Date Diagnosed Date Stage 3 chronic kidney disease 04/16/2024 Class 1 obesity due to exces s calories with serious comorbidity and body mass index (BMI) of 33.0 to 33.9 in adult 02/11/2024 Assessment & Plan (02/11/2024 2:03 PM EDT): Patient is going on right direction, no reported side effects, I will go up on wegovy to 1.7mg weekly Benign prostatic hyperplasia (BPH) with straining on urination 02/11/2024 Class 2 severe obesity due t o excess calories with serious comorbidity and body mass index (BMI) of 38.0 to 38.9 in adult 11/11/2023 Assessment & Plan (11/11/2023 12:07 PM EDT): I will prescribed wegovy for patient, it is my medical opinion patient will benefit form medication Colon cancer screening 09/03/2023 Assessment & Plan (09/03/2023 1:57 PM EDT): Patient reports he received prep for colonoscopy but has not being schedule yet Atrial fibrillation with RVR 08/22/2023 Assessment & Plan (09/03/2023 1:54 PM EDT): Rate seem to be control now, c/w same medication regimen, f/u with cardiology Assessment & Plan (08/22/2023 1:41 PM EDT): Now again return to baseline C/w same medication regimen I discontinue his amlodipine his blood pressure has being in the low side Cardiology office will be call for a possible sooner appointment Mixed stress and urge urinary incontinence Weight gain 05/19/2023 Assessment & Plan (09/03/2023 1:57 PM EDT): I will check his TSH and contact him back Patient declines fern cutter appointment Prediabetes 05/19/2023 Assessment & Plan (04/20/2024 4:46 PM EST): Today extensive discussion was done about life style modifications I advise healthy diet (low calorie) and cardiovascular exercise Assessment & Plan (02/11/2024 2:03 PM EDT): Continue with life style modification Assessment & Plan (11/11/2023 12:04 PM EDT): Today extensive discussion was done about life style modifications I advise healthy diet (low calorie) and cardiovascular exercise Today A1c went up to 6.4% I started him on metformin 500mg BID Assessment & Plan (09/03/2023 1:55 PM EDT): Today extensive discussion was done about life style modifications I advise healthy diet (low calorie) and cardiovascular exercise Assessment & Plan (05/19/2023 2:05 PM EST): Today extensive discussion was done about life style modifications I advise healthy diet (low calorie) and cardiovascular exercise Polyarthralgia 03/05/2023 Assessment & Plan (03/05/2023 12:23 PM EDT): Acetaminophen PRN Patient will like to be re-evalauted for more TREER hours Preop examination 02/13/2023 Assessment & Plan (02/13/2023 7:03 AM EDT): RCRI is 2-pt is a moderate risk pt going for a low risk procedure Summary Bleeding Risk: Moderate (2-day risk of major bleed 0-2%) Anticoagulant: Apixaban Creatinine Clearance: 72.4 mL/min Indication For Antithrombotic: Atrial fibrillation Thromboembolic Risk: Moderate Preoperative Recommendations Last dose of apixaban: 2 days before surgery (skip 2 doses). Schedule Day Instructions -3 Apixaban as usual (morning and night) -2 Apixaban as usual (morning and night) -1 No apixaban Surgery No apixaban Last labs in 10/2022 Cr was 1.4 today cr is wnl , hb wnl , last hb1AC 5.5 and TSH in 06/2022 wnl -there are no major contraindications for surgery -advised pt to avoid any NSAIDS -advised to hold on AC day before and day of surgery , to resume AC as per surgeon but ideally next day of procedure--I called his ocular care technologist-Dr Ely's # [phone] office and spoke w CLIFF rodriguez with plan to hold AC as rec above with no need for bridging. 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 Assessment & Plan (11/11/2023 12:03 PM EDT): Continue to follow with pulmonology Assessment & Plan (09/03/2023 1:54 PM EDT): Controlled, c/w current medications and keep pulmonology appointments Needle exposure 12/12/2022 Hoarseness, persistent 11/28/2022 Assessment & Plan (03/05/2023 12:29 PM EDT): Patient will get a second opinion he has an appointment on 05/2023 Assessment & Plan (12/12/2022 1:37 PM EDT): Continue to follow with ENT Assessment & Plan (11/28/2022 10:37 AM EDT): Patient was already seen by ENT for this CT of the neck was ordered which did not identify any cause for his hoarseness, I will get ENT notes and call to see if he has a soon appointment Venous stasis 11/28/2022 Venous insufficiency of lower extremity 11/29/19 23 Assessment & Plan (11/28/2022 10:38 AM EDT): Compression stockings will be prescribed Pain in right toe(s) 11/04/2022 Overview (11/04/2022): Right foot Hallux Assessment & Plan (11/04/2022 1:06 PM EDT): Extremely tender to palpation on the tip of his right foot big toe. Appears to be ingrown toenail. Stat referral to podiatry sent. Vertigo 11/04/2022 Assessment & Plan (08/22/2023 1:42 PM EDT): Dizziness resolved C/w meclizine PRN Declines vestibular therapy for now Assessment & Plan (12/12/2022 1:36 PM EDT): Controlled Continue with meclizine PRN Assessment & Plan (11/04/2022 1:07 PM EDT): Patient reports that the meclizine that he was prescribed is not helping with his vertigo. Aching headache 05/16/2022 Assessment & Plan (12/12/2022 1:35 PM EDT): Likely tension headaches Acetaminophen PRN Chronic obstructive lung disease 05/16/2022 Assessment & Plan (08/22/2023 1:40 PM EDT): Exacerbation resolved now C/w same medication regimen including Incrusa Ellipta Continue to follow with pulmonology Assessment & Plan (05/19/2023 2:03 PM EST): Continue to follow with pulmonology Chronic systolic heart failure 05/16/2022 Assessment & Plan (11/11/2023 12:04 PM EDT): Continue t follow with cardiology Assessment & Plan (03/05/2023 12:22 PM EDT): VNA service will be place for a limited time F/u with cardiology Dyspnea on exertion 05/16/2022 Vascular insufficiency 05/16/2022 Acquired hypothyroidism 02/04/2018 Assessment & Plan (03/05/2023 12:24 PM EDT): TSH will be check History of alcohol abuse 06/23/2012 Simple renal cyst 06/23/2012 Steatohepatitis 06/23/2012 Atrial fibrillation 12/12/2011 Assessment & Plan (05/19/2023 2:03 PM EST): Continue to follow with cardiology Ptosis of eyelid 12/12/2011 Rupture of quadriceps tendon 12/12/2011 Sleep apnea 12/12/2011 Anxiety state 10/31/2011 Coronary atherosclerosis 10/31/2011 Hypertension 10/31/2011 Assessment & Plan (04/20/2024 4:46 PM EST): I advised: - Aerobic exercise to reduce BP. Initial goal of 30 min walk 3-5x/week. Increase as tolerated. - low-sodium diet (goal: <2g/day) and heart healthy diet such as DASH to reduce BP and prevent ASCVD. - Home BP monitoring 1-2 x day with goal of <140/90. - Seek immediate medical attention for chest pain, palpitations, SOB, syncope, or sudden changes in mental status. - Do not change or discontinue current prescriptions without first consulting health care provider Assessment & Plan (02/11/2024 2:02 PM EDT): I advise: - Aerobic exercise to reduce BP. Initial goal of 30 min walk 3-5x/week. Increase as tolerated. - low-sodium diet (goal: <2g/day) and heart healthy diet such as DASH to reduce BP and prevent ASCVD. - Home BP monitoring 1-2 x day with goal of <140/90. - Seek immediate medical attention for chest pain, palpitations, SOB, syncope, or sudden changes in mental status. - Do not change or discontinue current prescriptions without first consulting health care provider Assessment & Plan (11/11/2023 11:04 AM EDT): Not control today, I will set up patient for VNA services, he will benefit for medication administration and blood pressure monitoring - Aerobic exercise to reduce BP. Initial goal of 30 min walk 3-5x/week. Increase as tolerated. - low-sodium diet (goal: <2g/day) and heart healthy diet such as DASH to reduce BP and prevent ASCVD. - Home BP monitoring 1-2 x day with goal of <140/90. - Seek immediate medical attention for chest pain, palpitations, SOB, syncope, or sudden changes in mental status. - Do not change or discontinue current prescriptions without first consulting health care provider Assessment & Plan (05/19/2023 2:04 PM EST): Maintenance: BMP:ordered today Lipid Panel: ordered today ASCVD Risk: patient on high intensity statin - Aerobic exercise to reduce BP. Initial goal of 30 min walk 3-5x/week. Increase as tolerated. - low-sodium diet (goal: <2g/day) and heart healthy diet such as DASH to reduce BP and prevent ASCVD. - Home BP monitoring 1-2 x day with goal of <140/90. - Seek immediate medical attention for chest pain, palpitations, SOB, syncope, or sudden changes in mental status. - Do not change or discontinue current prescriptions without first consulting health care provider Assessment & Plan (03/05/2023 12:22 PM EDT): - Aerobic exercise to reduce BP. Initial goal of 30 min walk 3-5x/week. Increase as tolerated. - low-sodium diet (goal: <2g/day) and heart healthy diet such as DASH to reduce BP and prevent ASCVD. - Home BP monitoring 1-2 x day with goal of <140/90. - Seek immediate medical attention for chest pain, palpitations, SOB, syncope, or sudden changes in mental status. - Do not change or discontinue current prescriptions without first consulting health care provider Assessment & Plan (12/12/2022 1:35 PM EDT): - Aerobic exercise to reduce BP. Initial goal of 30 min walk 3-5x/week. Increase as tolerated. - low-sodium diet (goal: <2g/day) and heart healthy diet such as DASH to reduce BP and prevent ASCVD. - Home BP monitoring 1-2 x day with goal of <140/90. - Seek immediate medical attention for chest pain, palpitations, SOB, syncope, or sudden changes in mental status. - Do not change or discontinue current prescriptions without first consulting health care provider Assessment & Plan (11/04/2022 11:35 AM EDT): BP well managed, no medication changes recommended at this time. Counseled low-salt diet, advised increase in exercise to 30 min/ day most days, weight loss if applicable. call clinic for high BP >170/90 or low <90/60. Mood disorder 10/31/2011 Pure hypercholesterolemia 10/31/2011 Encounters Date Type Department Care Team Description 06/10/2024 Telephone [facility] [address] [place] [address] Gemini Chavez MD Prior Authorization 06/09/2024 Refill [facility] [address] [place] [address] Gemini Ochao MD Primary hypertension 06/03/2024 Refill [facility] [address] [place] [address] Gemini Chavez MD 05/26/2024 Telephone [facility] [address] [place] [address] Gemini Chavez MD Prior Authorization ([facility] for Zepbound) 05/14/2024 Refill [facility] [address] [place] [address] Gemini Chavez MD Class 1 obesity due to excess calories with serious comorbidity and body mass index (BMI) of 33.0 to 33.9 in adult 05/11/2024 Orders Only [facility] External Provider, [facility] 05/11/2024 Telephone [facility] [address] [place] [address] Gemini Chavez MD medication denied 05/10/2024 Orders Only [facility] [address] [place] [address] Gemini Chavez MD Stage 3 chronic kidney disease, unspecified whether stage 3a or 3b CKD ([facility]/HCC) (Primary Dx); Class 2 severe obesity due to excess calories with serious comorbidity and body mass index (BMI) of 38.0 to 38.9 in adult (CMS/HCC) 05/08/2024 Refill [facility] [address] [place] [address] Gemini Chavez MD Class 1 obesity due to excess calories with serious comorbidity and body mass index (BMI) of 33.0 to 33.9 in adult 05/04/2024 Orders Only [facility] Provider, Generic External Data 05/03/2024 Orders Only [facility] Provider, Generic External Data 04/30/2024 Telephone [facility] [address] [facility] [place] [address] Gemini Chavez MD FYI 04/27/2024 Telephone [facility] [address] [facility] [place] [address] Gemini Chavez MD Nurse Triage; Follow up InStead visit 04/27/24 04/27/2024 Telephone [facility] [address] [place] [address] Gemini Chavez MD FYI 04/22/2024 Orders Only [facility] [address] [facility] [place] [address] Gemini Chavez MD Viral upper respiratory tract infection (Primary Dx) 04/22/2024 Telephone [facility] [address] [facility] [place] [address] Gemini Chavez MD Medication Question 04/21/2024 Telephone [facility] [address] [facility] [place] [address] Gemini Chavez MD Fyi 04/20/2024 Telephone [facility] [address] [facility] [place] [address] Christy Diaz RN URI s/s 04/16/2024 10:45 AM EST Office Visit [facility] [address] [place] [phone] Gemini Chavez MD Stage 3 chronic kidney disease, unspecified whether stage 3a or 3b CKD (CMS/HCC) (Primary Dx); Prediabetes; Primary hypertension 04/16/2024 Telephone [facility] [address] [place] [phone] Roxy Haley RN Med Refill (Wegovy notification) 04/16/2024 Travel 04/13/2024 Refill [facility] [address] [place] [address] Gemini Chavez MD 04/12/2024 Refill [facility] [address] [place] [address] Gemini Chavez MD Class 1 obesity due to excess calories with serious comorbidity and body mass index (BMI) of 33.0 to 33.9 in adult 04/01/2024 Refill [facility] [address] [place] [phone] Gemini Chavez MD Acquired hypothyroidism 03/31/2024 Telephone [facility] [address] [place] [address] Gemini Chavez MD order 03/25/2024 Telephone [facility] [address] [place] [phone] Gemini Chavez MD VNA services 03/22/2024 Telephone [facility] [address] [place] [phone] Gemini Chavez MD ER Follow-up 03/20/2024 Orders Only [facility] External Provider, [facility] 03/17/2024 Refill [facility] [address] [place] [phone] Gemini Chavez MD Acquired hypothyroidism; Vertigo from Last 3 Months Immunizations Name Administration Dates Next Due Influenza High-dose Quadriva lent Preservative Free 01/23/2022 Influenza Injectable Quadriv alant Preservative Free IIV4 MDCK 02/13/2019 Influenza Quadrivalent Adjuvanted 01/18/2023 Influenza injectable quadriv alent preservative free 02/13/2021,02/04/2020,02/09/2018,01/01,02/08/2016 Influenza, High Dose Seasona l, Preservative Free 01/05/2024 Influenza, Injectable, MDCK, preservative free 02/03/2015 Influenza, Split (incl. alexia fied surface antigen) 01/24/2015,05/28/2012 Moderna Covid-19 Vaccine 12+ 04/11/2021,08/23/19 21,07/25/2020 Moderna Covid-19 Vaccine 6+ Bivalent 04/24/2022 Pfizer Covid-19 Vaccine 12+ 02/11/2024, 3 Pneumococcal Conjugate PCV 20 11/04/2022 Pneumococcal Polysaccharide PPSV23 02/03/2015,,01/30/2000 RSV Bivalent 05/19/2023 TD (adult), 2 Lf tetanus tox oid, preservative free, adsorbed 01/30/2006,05/13/1994 Td (adult), 5 Lf tetanus tox oid, preservative free, adsorbed 06/16/2014 Tdap 04/10/2021 Social History Tobacco Use Types Packs/Day Years Used Date Smoking Tobacco: Former Cigarettes Passive Smoke Exposure: Past Smokeless Tobacco: Never Tobacco Cessation:Counseling Given: Not Answered Alcohol Use Standard Drinks/Week Comments Never 0 [...] Orientation Straight 03/11/2022 10 :15 AM EDT Last Filed Vital Signs Vital Sign Reading Time Taken Comments Blood Pressure 118/82 04/16/2024 11:12 AM EST Pulse 80 04/16/2024 11:12 AM EST Temperature 36.8 ??C (98.2 ??F) 04/16/2024 11:[address] Respiratory Rate 18 04/16/2024 11:12 AM EST Oxygen Saturation 100% 02/11/2024 10:08 AM EDT Inhaled Oxygen Concentration - - Weight 92.6 kg (204 lb 3.2 oz) 04/16/2024 11:12 AM EST Height 165.1 cm (5' 5 ) 04/16/2024 11:12 AM EST Body Mass Index 33.98 04/16/2024 11:12 AM EST Plan of Treatment Upcoming Encounters Date Type Department Care Team (Late st Contact Info) Description 07/22/2024 11:00 AM EDT Office Visit [facility] [address] [place] [address] Gemini Chavez MD [address] [place] [address] Health Maintenance Due Date Last Done Comments CT Colonography 1955 Colonoscopy 1955 Colorectal Cancer Screening 1955 FIT DNA/Cologuard 1955 FIT 1955 FOBT 1955 Sigmoidoscopy 1955 Alcohol/Substance Use Screening 1967 Hepatitis A Vaccines (1 of 2 - Risk 2-dose series) 11/18/1974 Zoster Vaccines (1 of 2) 11/18/2005 Hepatitis B Vaccines (1 of 3 - Risk 3-dose series) 2015 Depression Screening 09/02/2024 09/03/2023, 09/03/19 SDOH Screening 10/30/2024 10/31/2023 Diabetes: Hemoglobin A1C 11/10/2024 024, 05/20/2023, 06/13/2022, Additional history exists Tobacco Screening 04/16/2025 04/16/2024 Lipid Panel 05/03/2029 05/03/2024, 010 01/2024, 12/13/2022, Additional history exists DTaP/Tdap/Td Vaccines (2 - Td or Tdap) 04/10/2031 04/10/2021, 06/16/2014, 01/30/2006, Additional history exists Pneumococcal Vaccine: 50+ Years Completed 11/04/2022, 02/03/2015, 01/24/2015, Additional history exists Hepatitis C Screening Completed 12/13/2022 RSV Patients and Patients Aged 60 years or older Completed 05/19/2023 Influenza Vaccine Completed 01/05/2024, , [...] patient's age to complete this topic Meningococcal Vaccine Aged Out No suzanne katie eligible based on patient's age to complete this topic RSV under 20 months Aged Out No longe r eligible based on patient's age to complete this topic Rotavirus Vaccines Aged Out No longer eligible based on patient's age to complete this topic Procedures Procedure Name Priority Date/Time Associated Diagnosis Comments US RENAL BI Routine 05/11/2024 6:41 PM EST BASIC METABOLIC PANEL Routine 05/04/2024 10:19 AM EST URINE PROTEIN, TOTAL, RANDOM (W/O CREATININE) Routine 05/04/2024 10:18 AM EST CREATININE, RANDOM URINE Routine 05/04/2024 10:18 AM EST URINALYSIS, COMPLETE Routine 05/04/2024 10:18 AM EST COMPREHENSIVE METABOLIC PANEL Routine 05/03/2024 8:15 AM EST LIPID PANEL, STANDARD Routine 05/03/2024 8:15 AM EST Stage 3 chronic kidney disease, unspecified whether stage 3a or 3b CKD (CMS/HCC) Prediabetes CT HEAD WO CONTRAST Routine 03/20/2024 5 :54 PM EST POCT GLYCATED HEMOGLOBIN, TOTAL Routine 11/11/2023 11:12 AM EDT Prediabetes HEPATITIS C ANTIBODY REFLEX Routine 12/13/2022 8:21 AM EDT from Last 3 Months or Most Recently Relevant to Health Maintenance Results * US RENAL BI (05/11/2024 6:41 PM EST) Anatomical Region Laterality Modality Abdomen Ultrasound 05/11/2024 6:41 PM EST Narrative 05/11/2024 6:43 PM EST ? [facility] ?[address] ?[place] [address] ? Ultrasound Report ? Signed ? Patient: Min Rees ?MR#: ?? [id number] ? : 1955 ?Acct:[id number] ? Age/Sex: 68 / M ?ADM Date: 12/31/24 ? Loc: HO.US ? Attending Dr: Claudio Allan MD ? Ordering Physician: Claudio Allan MD ?? Date of Service: 05/11/24 ?? Procedure(s): US renal BI ?? Accession Number(s): [id number] ? cc: Claudio Allan MD; Gemini Chavez MD ? CLINICAL HISTORY: I10 - Essential (primary) hypertension ? US renal ? Comparison: 08/14/2022 ? Findings: ? Right kidney 12.9 cm length. ?? 2.8 cm upper pole cyst. ?? 5 mm lower pole stone. ? Left kidney 13.7 cm length. ?? Thin cortex noted on the left. ?? This most likely indicates chronic disease. ?? 2.5 cm midpole cyst. ? No bilateral hydronephrosis. ?? Normal bilateral renal echogenicity. ? Impression: ? 5 mm nonobstructing right renal stone ? Thin left renal cortex consistent with chronic disease ? This document has been electronically signed by: Edis Carl MD on ?? 05/11/2024 18:41:19 ? Dictated By: ?Edis Carl MD ? Signed By: ?<Electronically signed by Edis Carl MD in OV> ? 05/11/24 1842 ? DD/ 1841 ? TD/TT: 05/11/24 1841 ? Industrial Hygiene Engineer: ? Procedure Note [place], Image - 05/11/2024 [place] [id number] Ultrasound Report Signed Patient: Min ReesMR#: [id number] : 6Acct:[id number] Age/Sex: 68 / MADM Date: 05/11/24 Loc: HO.US Attending Dr: Claudio Allan MD Ordering Physician: Claudio Allan MD Date of Service: 05/11/24 Procedure(s): US renal BI Accession Number(s): [id number] cc: Claudio Allan MD; Gemini Chavez MD CLINICAL HISTORY: I10 - Essential (primary) hypertension US renal Comparison: 08/14/2022 Findings: Right kidney 12.9 cm length. 2.8 cm upper pole cyst. 5 mm lower pole stone. Left kidney 13.7 cm length. Thin cortex noted on the left. This most likely indicates chronic disease. 2.5 cm midpole cyst. No bilateral hydronephrosis. Normal bilateral renal echogenicity. Impression: 5 mm nonobstructing right renal stone Thin left renal cortex consistent with chronic disease This document has been electronically signed by: Edis Carl MD on 05/11/2024 18:41:19 Dictated By: Edis Carl MD Signed By: <Electronically signed by Edis Carl MD in OV> 05/11/241841 DD/ 40 TD/TT: 05/11/241840 Industrial Hygiene Engineer: us [facility] External Provider IMG US PROCEDURES Edited Result - Final * (ABNORMAL) Basic Metabolic Panel (05/04/2024 10:19 AM EST) Sodium 142 135 - 145 mmol/L [facility] Potassium 4.2 3.3 - 5.1 mmol/L [facility] Chloride 107 96 - 108 mmol/L [facility] Carbon Dioxide 29 22 - 29 mmol/L [facility] Anion Gap 10(L) 12 - 20 [facility] Urea Nitrogen (BUN) 17(H) 9 - 16 mg/dL [facility] Creatinine, Serum 1.23 0.5 - 1.4 mg/dL [facility] Estimated Glomerular Filt Rate 59 [facility] Comment:Chronic Kidney Disea se: Estimated GFR < 60 mL/min/1.29c2Ytcsne Kidney Disease: Estimated GFR < 15 mL/min/1.73m2 Glucose 85 60 - 115 mg/dL [facility] Calcium 9.4 8.4 - 10.2 mg/dL [facility] 05/04/2024 10:1 9 AM EST 05/04/2024 10:19 AM EST Generic External Data Provider LAB BLOOD ORDERAB LES Final Result [facility] [address] [place] [address] [phone] * (ABNORMAL) Urine Protein, Total, Random without Creatinine (05/04/2024 10:18 AM EST) Protein, Total, Random Urine 30(H) <12 mg/dL [facility] 05/04/2024 10:1 8 AM EST 05/04/2024 10:48 AM EST Generic External Data Provider LAB URINE ORDERAB LES Final Result Performing Organization Address City/[facility]/ZIP Co de Phone Number [facility] [address] [place] [address] [phone] * Creatinine, Random Urine (05/04/2024 10:18 AM EST) Creatinine, Urine 306.08 mg/dL [facility] 05/04/2024 10:1 8 AM EST 05/04/2024 10:48 AM EST [email or web address] External Data Provider LAB URINE ORDERAB LES Final Result Performing Organization Address [facility] Co de Phone Number [facility] [address] [place] [phone] * (ABNORMAL) Urinalysis Complete (05/04/2024 10:18 AM EST) Color Urine Dark Yellow [facility] Appearance Urine Clear [facility] PH 6.0 5.0 - 9.0 [facility] Glucose Urine UA Negative Negative mg/dL [facility] Urine Blood Negative Negative [facility] Specific [place] - Urine 1.025 1.005 - 1.025 [facility] Urine Protein 30 (1+)(A) Neg-Trace mg/dL [facility] Urine Ketones Trace Negative mg/dL [facility] Nitrite Urine Negative Negative [facility] Leukocyte Esterase Urine Small (1+)(A) Negative [facility] RBC Urine 0-2 0 - 2 /HPF [facility] Urine WBC 0-5 0 - 5 /HPF [facility] Urine Squamous Epithelial Cell 0-2 0 - 2 /HPF [facility] Urine Bacteria None Seen None Seen [facility] Hyaline Casts, Urine 6-10 0 - 2 /LPF [facility] 05/04/2024 10:1 8 AM EST 05/04/2024 10:48 AM EST us Generic External Data Provider LAB URINE ORDERAB LES Final Result Performing Organization Address City/[facility] Co de Phone Number [facility] [address] [place] [phone] * (ABNORMAL) Lipid Panel, Standard (05/03/2024 8:15 AM EST) Triglycerides 230(H) <150 mg/dL [facility] Comment:Desirable Triglyceri de: less than 150 mg/dLBorderline High Triglyceride 150-199 mg/dLHigh Triglyceride: 200-499 mg/dLVery High Triglyceride: greater than or equal to 5OO mg/dL Cholesterol 118 <200 mg/dL [facility] Comment:Desirable Cholestero l: less than 200 mg/dLBorderline High Cholesterol: 200-239 mg/dLHigh Cholesterol: greater than 239 mg/dL LDL Cholesterol Calculated 41 <100 mg/dL [facility] Comment:Desirable LDL: less than 100 mg/dLNear Optimal/Above Optimal LDL: 110- 129 mg/dLBorderline High LDL: 130-159 mg/dLHigh LDL: 160-189 mg/dLVery High LDL: greater than or equal to 190 mg/dL HDL Cholesterol 31(L) >40 mg/dL [facility] Comment:Desirable HDL: great er than 40 mg/dL Note: This HDL assay may give artificially low results in patients with liver disease. Blood Venous blood specimen / Unknown 05/03/2024 8:15 AM EST 05/03/2024 11:40 AM EST us Gemini Chung MD LAB BLOOD ORDERABLES Final Result Performing Organization Address City/[facility]/ZIP Co de Phone Number [facility] [address] [place] [address] [phone] * (ABNORMAL) Comprehensive Metabolic Panel (05/03/2024 8:15 AM EST) Sodium 142 135 - 145 mmol/L [facility] Potassium 4.0 3.3 - 5.1 mmol/L [facility] Chloride 104 96 - 108 mmol/L [facility] Carbon Dioxide 30(H) 22 - 29 mmol/L [facility] Anion Gap 12 12 - 20 [facility] Urea Nitrogen (BUN) 9 9 - 16 mg/dL [facility] Creatinine, Serum 1.17 0.5 - 1.4 mg/dL [facility] Estimated Glomerular Filt Rate >60 [facility] Comment:Chronic Kidney Disea se: Estimated GFR < 60 mL/min/1.18a2Eaftzz Kidney Disease: Estimated GFR < 15 mL/min/1.73m2 Glucose 73 60 - 115 mg/dL [facility] Calcium 8.7 8.4 - 10.2 mg/dL [facility] Bilirubin, Total 0.8 0.0 - 1.0 mg/dL [facility] Aspartate Amino Transferase 25 5 - 37 U/L [facility] Alanine Aminotransferase 27 0 - 40 U/L [facility] Total Protein 6.7 6.5 - 8.0 g/dL [facility] Albumin Level 3.9 3.5 - 5.0 g/dL [facility] Alkaline Phosphatase 39 39 - 117 U/L [facility] 05/03/2024 8:15 AM EST 05/03/2024 11:40 AM EST us Generic External Data Provider LAB BLOOD ORDERAB LES Final Result [facility] [address] [place] [address] [phone] * CT Head w/o Contrast (03/20/2024 5:54 PM EST) Anatomical Region Laterality Modality Head, Neck Computed Tomogra phy 03/20/2024 5:54 PM EST Narrative 03/20/2024 6:13 PM EST ? [facility] ?[address] ?[place], [place] [address] ? CT Scan Report ? Signed ? Patient: Min Rees ?MR#: ?? [id number] ? : 1955 ?Acct:[id number] ? Age/Sex: 68 / M ?ADM Date: 03/20/24 ? Loc: HO.ED ? Attending Dr: ? Ordering Physician: Jacques Boo ?? Date of Service: 03/20/24 ?? Procedure(s): CT head/brain wo IV con ?? Accession Number(s): [id number] ? cc: Gemini Chavez MD; Jacques Boo ? EXAMINATION: ?? CT HEAD WITHOUT CONTRAST ? CLINICAL INFORMATION: ?? Fall on [facility] ? COMPARISON: ?? Head CT on 06/19/2023 ? TECHNIQUE: ?? Contiguous axial imaging was performed from the skull base to vertex ?? without intravenous administration of contrast. ? This CT examination was performed using dose optimization techniques as ?? appropriate, variously including the following: ?? *Automated exposure control ?? *Adjustment of mA and/or kV according to patient size (this includes ?? techniques or standardized protocols for targeted exams where dose is ?? matched to indication/reason for exam; i.e. extremities or head) ?? *Use of iterative reconstruction technique ? DLP: ?? 792 mGy-cm ? RESULTS: There is no evidence of acute intracranial hemorrhage, acute ?? large vessel infarct, midline shift or mass effect. The lopes-white ?? differentiation is preserved. ? The ventricles and sulci are within normal limits in size and ?? configuration. There is no evidence of hydrocephalus. There are no ?? extraaxial collections. ? Osseous structures are intact. Paranasal sinuses and mastoid air cells ?? are well aerated. ? CT/CT head/brain wo IV con ?? IMPRESSION: ?? No acute intracranial pathology. ? Electronically signed by: ??Nenita Duque MD ??03/20/2024 06:11 PM EST ?? RP ? Dictated By: ?Nenita Duque MD ? Signed By: ?<Electronically signed by Nenita Duque MD in OV> ? 03/20/24 1811 ? DD/ 1754 ? TD/TT: 03/20/24 1754 ? Industrial Hygiene Engineer: PN ? Procedure Note Donotsuhailinterpreter, Image - 03/20/[address] [address] [address] Scan Report Signed Patient: Min ReesMR#: [id number] : 6Acct:[id number] Age/Sex: 68 / MADM Date: 03/20/24 Loc: HO.ED Attending Dr: Ordering Physician: Jacques Boo Date of Service: 03/20/24 Procedure(s): CT head/brain wo IV con Accession Number(s): [id number] cc: Gemini Chavez MD; Jacques Boo EXAMINATION: CT HEAD WITHOUT CONTRAST CLINICAL INFORMATION: Fall on [facility] COMPARISON: Head CT on 06/19/2023 TECHNIQUE: Contiguous axial imaging was performed from the skull base to vertex without intravenous administration of contrast. This CT examination was performed using dose optimization techniques as appropriate, variously including the following: *Automated exposure control *Adjustment of mA and/or kV according to patient size (this includes techniques or standardized protocols for targeted exams where dose is matched to indication/reason for exam; i.e. extremities or head) *Use of iterative reconstruction technique DLP: 792 mGy-cm RESULTS: There is no evidence of acute intracranial hemorrhage, acute large vessel infarct, midline shift or mass effect. The lopes-white differentiation is preserved. The ventricles and sulci are within normal limits in size and configuration. There is no evidence of hydrocephalus. There are no extraaxial collections. Osseous structures are intact. Paranasal sinuses and mastoid air cells are well aerated. CT/CT head/brain wo IV con IMPRESSION: No acute intracranial pathology. Electronically signed by: Nenita Duque MD 03/20/2024 06:11 PM [facility] Dictated By: Nenita Duque MD Signed By: <Electronically signed by Nenita Duque MD in OV> 03/20/24 1811 DD/ 175 TD/TT: 03/20/24 175 Industrial Hygiene Engineer: JOSHUA [facility] External Provider IMG CT PROCEDURES Final Result * (ABNORMAL) POCT HGB A1C (11/11/2023 11:12 AM EDT) Hemoglobin A1C 6.4(A) 4.0 - 6.0 % QC Media Lot # [id number] Lot# Expiration Date ,548 Blood 11/11/2023 11:1 2 AM EDT Result [facility] Gemini Cuhng MD POINT OF CARE TEST EN TER/EDIT ORDERABLES Final Result * Hepatitis C Antibody Reflex (12/13/2022 8:21 AM EDT) Hepatitis C Antibody Nonreactive Nonreactive [facility] Comment:Antibodies to HCV no t detected; does not exclude early acuteHCV infection. 12/13/2022 8:21 AM EDT 12/13/2022 11:08 AM EDT Gemini Chung MD LAB BLOOD ORDERABLES Final Result [facility] [address], [place] [phone] from Last 3 Months or Most Recently Relevant to Health Maintenance Insurance [facility] Care Teams Ballet Teacher Relationship Specialty Start Date End Date Gemini Chavez MD [address] [place] [phone] PCP - General Family Medicine 01/21/18 [employer] 03/28/24
--- OUTSIDE RECORDS SUMMARY | 2024-06-16 08:58 | XMS_ITS | Encounter Summary ---
Author Organization [employer] [facility] Address [address] 7t [place] [address] Care Team Providers Care Medical Staff Credentialing Coordinator Name Role Phone Gemini Chavez MD Primary Care Provide r Encounter Details Date Type Department Care Team (Late st Contact Info) Description 01/22/2023 Orders Only [facility] [address] [place], [place] [phone] Gemini Chavez MD [address] [place], [place] [phone] COPD with asthma ([facility]) Social History Tobacco Use Types Packs/Day Years Used Date Smoking Tobacco: Never Passive Smoke Exposure: Never Smokeless Tobacco: Never Alcohol Use Standard Drinks/Week Comments Never 0 (1 standard drink = 0.6 oz pur e alcohol) Depression Answer Date Recorded Patient Health Questionnaire-9 Score 6 05/16/2022 Depression Answer Date Recorded Patient Health Questionnaire-2 [...] Description 07/22/2024 11:00 AM EDT Office Visit [facility] [address] [place] [address] [phone] Gemini Chavez MD [address] [place] [address] documented as of this encounter Visit Diagnoses Diagnosis COPD with asthma ([facility]) documented in this encounter Additional Health Concerns Assessment Noted Time PHQ-9 Depression Total Score: 6 05/16/19 23 1:42 PM EST documented as of this encounter Care Teams Medical Staff Credentialing Coordinator Relationship Specialty Start Date End Date Gemini Chavez MD [address] [place] [address] PCP - General Family Medicine 01/21/18 [employer] 03/28/24 documented as of this encounter
--- OUTSIDE RECORDS SUMMARY | 2024-06-16 08:58 | XMS_ITS | Encounter Summary ---
Author Organization [employer] Address [address] 7t [place] [address] Care Team Providers Care Plasterer Helper Name Role Phone Gemini Chavez MD Primary Care Provide r Reason for Visit * Reason Comments Med Change Request Encounter Details Date Type Department Care Team ([facility] st Contact Info) Description 02/04/2023 Refill [facility] [address] [place], [place] [phone] Marsha Menjivar MD [address] [place] [address] Primary hypertension Social History Tobacco Use Types [...] encounter Miscellaneous Notes * Telephone Encounter - Gail Oliva RN - 03/03/2023 11:46 AM EDT Sent to [facility] * Telephone Encounter - Jacqueline Segura - 02/12/2023 12:29 PM EDT Per the pharmacy: patient received BP monitor kit was done on a fatmata at no cost to the patient. Patient picked up BP monitor on 02/06. documented in this encounter Plan of Treatment Upcoming Encounters Date Type Department Care Team (Late st Contact Info) Description 07/22/2024 11:00 AM EDT Office Visit [facility] [address] [place] [address] Gemini Chavez MD [address] [place] [address] documented as of this encounter Visit Diagnoses Diagnosis Primary hypertension Unspecified essential hypertension documented in this encounter Additional Health Concerns Assessment Noted Time PHQ-9 Depression Total Score: 6 05/16/19 23 1:42 PM EST documented as of this encounter Care Teams Plasterer Helper Relationship Specialty Start Date End Date Gemini Chavez MD [address] [place] [phone] PCP - General Family Medicine 01/21/18 [employer] 03/28/24 documented as of this encounter
--- OUTSIDE RECORDS SUMMARY | 2024-06-16 08:58 | XMS_ITS | Encounter Summary ---
Author Organization [employer] Address [address] [facility] [address]t [place] [address] Care Team Providers Care Puppy Walker Name Role Phone Gemini Chavez MD Primary Care Provide r Reason for Visit * Reason Onset Date Comments Prior Authorization 05/26/2024 [facility]KH [place]ONADO for Z epbound Encounter Details Date Type Department Care Team ([facility] st Contact Info) Description 05/26/2024 Telephone [facility] [address] [place] [address] Gemini Chavez MD [address] [place] [phone] Prior Authorization (SUKH CORONADO for Zepbound) Social History Tobacco Use Types Packs/Day Years [...] encounter Miscellaneous Notes * Telephone Encounter - Dorys Arauz - 06/01/2024 3:01 PM EST [facility] Care[employer] Form with clinical questions was comppleted and return via fax. Confirmation was received and forwarded for scanning. * Telephone Encounter - Elissa Ambrosio - 06/01/2024 1:38 PM EST Tc from pt stating received a letter on 05/24 indicating med was denied. Any questions [phone] ( greek) * Telephone Encounter - Dorys Arauz - 05/26/2024 10:34 AM EST PA initiated on Covermymeds for Zepbound . Approval/denial pending. documented in this encounter Plan of Treatment Upcoming Encounters Date Type Department Care Team (Late st Contact Info) Description 07/22/2024 11:00 AM EDT Office Visit [facility] [address] [place] [phone] Gemini Chavez MD [address] [place] [address] documented as of this encounter Visit Diagnoses Not on filedocumented in this encounter Additional Health Concerns Assessment Noted Time PHQ-9 Depression Total Score: 0 09/03/19 9:55 AM EDT documented as of this encounter Care Teams Puppy Walker Relationship Specialty Start Date End Date Gemini Chavez MD [address] [place] [phone] PCP - General Family Medicine 01/21/18 [employer] 03/28/24 documented as of this encounter
--- OUTSIDE RECORDS SUMMARY | 2024-06-16 08:58 | XMS_ITS | Encounter Summary ---
Author Organization [facility] [facility] Address [address] [place] [address] 7t [place] [address] Care Team Providers Care Commercial Electrician Name Role Phone Gemini Chavez MD Primary Care Provide r Reason for Visit * Reason Comments Med Refill Encounter Details Date Type Department Care Team (Late st Contact Info) Description 10/07/2022 Refill [facility] [address] [place] [address] [phone] Gemini Chavez MD [address] [place], [place] [phone] Chronic systolic heart failure (CMS/HCC) Social History Tobacco Use Types Packs/Day Years Used Date Smoking Tobacco: Never Smokeless Tobacco: Never Alcohol Use Standard [...] Description 07/22/2024 11:00 AM EDT Office Visit [facility] [address] [place] [address] [phone] Gemini Chavez MD [address] [place], [place] [phone] documented as of this encounter Visit Diagnoses Diagnosis Chronic systolic heart failure (CMS/HCC) Chronic systolic heart failure documented in this encounter Additional Health Concerns Assessment Noted Time PHQ-9 Depression Total Score: 6 05/16/19 23 1:42 PM EST documented as of this encounter Care Teams Commercial Electrician Relationship Specialty Start Date End Date Gemini Chavez MD [address] [place] [address] PCP - General Family Medicine 01/21/18 [employer] 03/28/24 documented as of this encounter
--- OUTSIDE RECORDS SUMMARY | 2024-06-16 08:58 | XMS_ITS | Encounter Summary ---
Author Organization [employer] Address [address] [facility] 7t [place] [address] Care Team Providers Care Crepe Sole Wire Brusher Name Role Phone Gemini Chavez MD Primary Care Provide r Reason for Visit * Reason Onset Date Comments Appointment Request 08/21/2022 Encounter Details Date Type Department Care Team ([facility] st Contact Info) Description 08/21/[address] [facility] [address] [place], [place] [phone] Gemini Chavez MD [address] [place] [address] Appointment Request Social History Tobacco Use Types Packs/Day Years [...] encounter Miscellaneous Notes * Telephone Encounter - Jose Maria Castro - 08/21/2022 12:42 PM EDT Tc from pt requesting to r/s appt on 08/21/22 ( Recall HTN ) due to an family emergency. Please contact pt at [phone] documented in this encounter Plan of Treatment Upcoming Encounters Date Type Department Care Team (Late st Contact Info) Description 07/22/2024 11:[address] EDT Office [address] [facility] [address] [place] [address] Gemini Chavez MD [address] [place] [address] documented as of this encounter Visit Diagnoses Not on filedocumented in this encounter Additional Health Concerns Assessment Noted Time PHQ-9 Depression Total Score: 6 05/16/19 23 1:42 PM EST documented as of this encounter Care Teams Crepe Sole Wire Brusher Relationship Specialty Start Date End Date Gemini Chavez MD [address] [place] [phone] PCP - General Family Medicine 01/21/18 [employer] 03/28/24 documented as of this encounter
--- OUTSIDE RECORDS SUMMARY | 2024-06-16 08:58 | XMS_ITS | Data Portability ---
Author Organization [employer] Address [address] [place] [address] Care Team Providers Care Public Health Training Assistant Name Role Phone TALIB MARTINEZZEDWIN RONALDO Primary Care Provider [phone] HIM [facility] OTHER [facility] OTHER Assessment Encounter Date Assessment Date Assessment LastModified by Organization Details LastModified Time 11/27/2023 11/27/2023 service called for headache found 68 yom with Hypertension CHF Diabetes pt reports that earlier today noted onset dull occiput TRAORE c/w prior episodes of elev BP. Denies chest pain/pressure, diaphoresis, SOB, BRYSON. Noted BP high on home cuff. In time interval, pt took PM BP meds. Headache remaining stable. Has taken 500mg PO acetaminophen with minor relief. Most recent episode required 2 x 500 mg acetaminophen for relief VS BP 121/87 HR 73, BP much improved from prior 150/120 no neurologic deficit EKG: afib, otherwise no e/o strain/ischemia #Headache likely related to episode of elev BP pt instructed take additional 500 mg acetaminophen otherwise return to primary team [email or web address] Not available 11/27/2023 23:06:22 03/20/2024 03/20/2024 I have reviewed and agree with the assessment and plan as documented by the pier hand helper. I provided real time medical direction for this encounter and was immediately available to provide additional phone based assistance as needed. History as noted by pier hand helper. Pt with history of afib on apixaban, CHF on diuretics, HTN, CAD, GERD. Pt reports feeling dizzy described as light headed for several days. He reports that he had a fall yesterday with no LOC or head injury. Today while at a store he again became lightheaded causing him to fall without head strike or LOC. He notes SOB but no chest pain. No recent vomiting or fevers. On exam, pt comfortable appearing no distress. Vitals with orthostatic hypotension upon standing with increased HR as well. Lungs clear. EKG with Afib, rate 96, no acute ischemia. Impression: Pt with orthostatic hypotension and recent falls with no head strike or LOC. Pt with history of afib, (unclear if this is chronic) on apixaban as well as CHF. Unclear if pt's symptoms are d/t over diuresis, but will need gentle hydration and close monitoring of his vitals and fluid status as well as head CT given that he has had multiple falls on AC. I discuss with the pt that he will need evaluation and treatment in the ED. Pt will be transported via 911 ambulance to the [facility] and I give a pt expect to the ED motor and generator assembler as well. [email or web address] Not available 03/20/2024 18:19:28 04/21/2024 04/21/2024 I provided real -time medical direction via phone for this encounter and was available for additional phone-based assistance as needed. I have reviewed and agree with the Assessment and Plan as documented by the Electrical Manager. Patient given the opportunity to ask questions. Our service contacted for an assessment of: Shortness of breath As per above, patient with similar presentation back in July of this year. Complaining of some shortness of breath. Denies chest pain or dyspnea on exertion. Does have underlying anxiety disorder. Denies productive cough but does have a dry 1. Also complaining of some nasal congestion. No sick contacts. Denies fever or chills. Denies ear pain or pressure. No change in functional status. Per pier hand helper on the scene, vital signs are stable and patient is afebrile. No hypoxemia. Rhonchi diffusely throughout lung aragon. No increased work of breathing. Impression: Likely COPD asthma overlap syndrome. Could be triggered by a viral URI. Fortunately COVID and flu were negative. Plan: Responded well in the past to a short burst of prednisone. Continue otherwise with OTCs. Red flags discussed as to when to seek a higher level of care. Allergies: Reviewed PCP f/u: We discussed the diagnostic uncertainty of home visits and the risk associated with this. In this case, the patient and I felt this to be an acceptable and reasonable amount of risk given the benefit of avoiding an ED visit. We discussed the need to seek care urgently/emergen tly in the setting of any new or worsening serious symptoms, particularly fever chills [email or web address] Not available 04/21/2024 10:40:10 04/27/2024 04/27/2024 I provided real -time medical direction via phone for this encounter, and was available for additional phone based assistance as needed. I have reviewed and agree with the Assessment and Plan as documented by the Electrical Manager. We discussed the diagnostic uncertainty of home visits and the risk associated with this.. Advised the patient I do not know what is causing his headache it is possible it is sinusitis but he could have something more serious going on such as a neurovascular event. He declined going to the emergency room requesting to try and start treatment at home. The patient given the opportunity to ask questions. Advised if not improving in 2 days/ if develops worsening headache /CP/severe SOB/turning blue/uncontrolle d n/v/d or black/bloody emesis or stool/ AMS/ syncope/ acute visual/speech changes- focal numbness or weakness/hi fever unresponsive to APAP to call 911- verbalized understanding of instruction [email or web address] Not available 04/27/2024 20:25:46 Plan of Treatment Reminders Order Date Submit Date Provider Last Modified By Organization Details Last Modified Time Details Appointments None recorded. Lab rapid flu (A+B) 2023 024 [email or web address] [facility], [address] [place] [address], [phone], 4 10:38:31 rapid SARS CoV 2 Ag, QL IA, respiratory specimen 2023 024 [email or web address] [facility], [address] [place] [address], [phone], 4 10:38:31 rapid SARS CoV 2 Ag, QL IA, respiratory specimen 2023 024 [email or web address] [address], [address], 4 20:24:15 rapid flu (A+B) 2023 024 [email or web address] 0 [facility], [address] [place] [address], [address], 4 20:24:15 BMP, serum or plasma 2023 024 [email or web address] 0 [facility] - [facility], [address] [place] [address], [address], 4 20:24:15 Referral None recorded. Procedures None recorded. Surgeries None recorded. Imaging electrocard iogram 2023 024 [email or web address] Main - [facility], [address] [place] [address], [address], 4 14:50:34 electrocard iogram 2023 024 [email or web address] Main - [facility], [address] [place] [address], [address], 4 18:36:07 electrocard iogram 2023 024 [email or web address] Main - [facility], [address] [place] [address], [address], 4 20:24:15 Medication Orders prednisone 20 mg tablet 2023 [id number], [address] [place], [address], 4 10:38:33 prednisone 20 mg tablet 2023 024 [id number] [address] [place], [address], 4 10:38:31 fluticasone propionate 50 mcg/actuati on nasal spray,suspe nsion 2023 024 [id number], [address] [place], [address], 4 12:56:56 Saline Nasal 0.65 % spray aerosol 2023 [id number], [address] [place], [address], 4 12:56:56 amoxicillin 500 mg capsule 2023 024 [facility] #[id number], [address] [place], [address], 4 12:56:55 sodium chloride 0.9 % intravenous solution 2023 024 [email or web address] 0 [id number], [address] [place], [address], 4 20:24:15 Patient TargetsNo targets recorded. Patient Instructions Encounter Date Encounter Id Patient Instructions Last Modified By Organization Details Last Modified Time 03/31/2024 [id number] orthostatic vitals* [email or web address] Not available 03/31/2024 18:21:41 Reason for Referral None Reported. Results Created Date Observation Date Name Description Value Unit Range Abnormal Flag Note LastModifiedBy Organization Detail LastModifiedTime 04/21/20 24 04/21/2024 rapid SARS CoV 2 Ag, QL IA, respi rator y speci men rapid SARS CoV 2 Ag, QL IA, respiratory specimen negati ve Not Available Main - [facility] ed [address] [place] [address], [phone], 04/21/2024 10:37:26 04/21/20 24 04/21/2024 rapid flu (A+B) Flu negati ve Not Available [facility] [address] [place] [address], [phone], 04/21/2024 10:37:25 04/27/20 24 04/27/2024 rapid flu (A+B) Flu negati ve Not Available [facility] - [facility] [address] [place] [address], [phone], 04/27/2024 12:57:09 04/27/20 24 04/27/2024 rapid SARS CoV 2 Ag, QL IA, respi rator y speci men rapid SARS CoV 2 Ag, QL IA, respiratory specimen negati ve Not Available [facility] - [facility] [address] [place] [address], [address], 04/27/2024 12:57:08 03/20/20 24 03/20/2024 elect rocar diogr am No observ ation record ed. [facility] [address] [place] [address], [address], 03/20/2024 14:50:32 03/31/20 24 03/31/2024 elect rocar diogr am No observ ation record ed. [facility] [address] [place] [address], [address], 03/31/2024 18:36:06 04/27/20 24 04/27/2024 elect rocar diogr am No observ ation record ed. [facility] [address] [place] [address], [address], 04/27/2024 20:22:51 Result Notes None recorded. Procedures Surgical History None recorded. Imaging Results Imaging Date Name Status LastModified by Organization Details LastModified Time 03/20/2024 electrocardiogram completed [address], [address], 03/20/2024 14:50:32 03/31/2024 [facility] [address] [place] [address], [address], 03/31/2024 18:36:06 04/27/2024 electrocardiogram completed [email or web address] [address] [place] [address], [phone], 04/27/2024 20:22:51 Procedure Notes None recorded. Medical Equipment None Reported. Allergies No known drug allergies Medications Name Sig Start Date Stop Date Status Note LastModified by Organization Details LastModified Time cyclobenzapr ine 10 mg tablet TAKE 1 TABLET (10 MG) BY MOUTH AT BEDTIME FOR 10 DAYS. active Not Available Not Available No t Available amoxicillin 500 mg capsule TOME 1 C PSULA POR V A ORAL CADA 8 HORAS POR 10 D active Not Available Not Available No t Available furosemide 40 mg tablet TOME 1 TABLETA POR V A ORAL TODOS LOS D FOR 30 DAYS active Not Available Not Available No t Available metformin 500 mg tablet TOME FAUSTINA TABLETA (500 MG) POR V A ORAL CON EL DESAYUNO AND WITH EVENING MEAL active Not Available Not Available No t Available nystatin 100,000 unit/mL oral suspension TAKE 5 ML BY MOUTH 4 TIMES EVERY DAY FOR 7 DAYS SWISH AND SPIT, RETAIN IN MOUTH LONG POSSIBLE active Not Available Not Available No t Available ipratropium 0.5 mg-albuterol 3 mg (2.5 mg base)/3 mL nebulization soln Inhale 3 mL as needed by nebulizatio n route. 2021 active Not Available Not Available Not Avai lable tizanidine 2 mg tablet TAKE 1 TAB EVERY 8 HOURS IF NEEDED FOR MUSCLE SPASMS FOR UP TO 10 DAYS active Not Available Not Available No t Available albuterol sulfate 2.5 mg/3 mL (0.083 %) solution for nebulization USE 1 VIAL VIA NEBULIZER IKNJAL VECES AL СЕРГЕЙ active Not Available Not Available No t Available azithromycin 250 mg tablet TOME 2 TABLETAS POR V A ORAL HOY, [place] TOME 1 TABLETA POR D A CHAZ 4 D active Not Available Not Available No t Available simethicone 180 mg capsule TOME 1 C PSULA POR V A ORAL 4 TIMES A DAY FOR 30 DAYS AFTER MEALS active Not Available Not Available Not Available senna 8.6 mg tablet TAKE 2 TABLETS BY MOUTH AT BEDTIME active Not Available Not Available No t Available metoprolol succinate ER 200 mg tablet,exten ded release 24 hr TOME 1 TABLETA POR V A ORAL TODOS LOS D active Not Available Not Available No t Available prednisone 20 mg tablet TOME DOS TABLETAS POR V A ORAL TODOS LOS D POR 4 D active Not Available Not Available N ot Available clonazepam 1 mg tablet TOME 1 TABLETA POR V A ORAL DOS VECES AL D A CUANDO SEA NECESARIO active Not Available Not Available No t Available metronidazol e 500 mg tablet TOME 1 TABLETA POR V A ORAL KINJAL VECES AL D A POR 10 D active Not Available Not Available No t Available tramadol 50 mg tablet TOME FAUSTINA TABLETA POR V A ORAL CADA CUATRO A SEIS HORAS CUANDO SEA NECESARIO PARA EL DOLOR active Not Available Not Available No t Available acetaminophe n 500 mg tablet TOME FAUSTINA TABLETA CADA SEIS HORAS CUANDO SEA NECESARIO active Not Available Not Available No t Available levothyroxin e 100 mcg tablet TOME 1 TABLETA POR V A ORAL TODOS LOS D active Not Available Not Available No t Available meclizine 25 mg tablet PLEASE SEE ATTACHED FOR DETAILED DIRECTIONS active Not Available Not Available N ot Available benzonatate 100 mg capsule PLEASE SEE ATTACHED FOR DETAILED DIRECTIONS active Not Available Not Available N ot Available cephalexin 500 mg capsule TOME FAUSTINA C PSULA KINJAL VECES AL D A AFTER SURGERY active Not Available Not Available No t Available pantoprazole 40 mg tablet,delay ed release TOME FAUSTINA TABLETA POR V A ORAL TODOS LOS D active Not Available Not Available No t Available erythromycin 5 mg/gram (0.5 %) eye ointment APPLY A SMALL AMOUNT INTO BOTH EYES 4 TIMES A DAY AFTER SURGERY active Not Available Not Available No t Available omeprazole 20 mg capsule,eden yed release TOME 1 C PSULA POR V A ORAL TODOS LOS D FOR 30 DAYS active Not Available Not Available No t Available Banophen 25 mg capsule TOME 1 C PSULA POR V A ORAL KINJAL VECES AL D A CUANDO SEA NECESARIO PARA LA ALERGIA active Not Available Not Available No t Available magnesium citrate oral solution 150 ML ORALLY DAILY FOR 2 DAYS COLONOSCOPY PREP active Not Available Not Available No t Available sodium chloride 0.9 % intravenous solution Inject 750 mL by intravenous route. 2023 active Not Available Not Available Not Avai lable epinephrine 0.3 mg/0.3 mL injection, auto-injecto r INJECT 0.3 MG (0.3 ML) INTRAMUSCUL ELIZABETH EVERY 4 HOURS NEEDED FOR ANAPHYLAXIS AND CALL 911 active Not Available Not Available No t Available zolpidem 10 mg tablet TOME 1 TABLETA POR V A ORAL TODOS LOS D AL ACOSTARSE CUANDO SEA NECESARIO active Not Available Not Available No t Available lisinopril 40 mg tablet TOME 1 TABLETA POR V A ORAL TODOS LOS D EN LA MA STACY active Not Available Not Available No t Available fluticasone propionate 50 mcg/actuatio n nasal spray,suspen adriana ROCIAR 1 VEZ EN CADA FOSA NASAL DOS VECES AL D A active Not Available Not Available No t Available loratadine 10 mg tablet TOME FAUSTINA TABLETA TODOS LOS D CUANDO SEA NECESARIO FOR ALLERGIES active Not Available Not Available No t Available Ventolin HFA 90 mcg/actuatio n aerosol inhaler INHALE DANDO DOS SOPLIDOS INTO THE LUNGS CADA CUATRO HORAS FOR 30 DAYS active Not Available Not Available No t Available hydroxyzine pamoate 25 mg capsule TOME 1 C PSULA POR V A ORAL DOS VECES AL D A CUANDO SEA NECESARIO active Not Available Not Available No t Available Laxative (bisacodyl) 5 mg tablet,delay ed release TOME DOS TABLETAS POR V A ORAL AL ACOSTARSE FOR 2 DAYS active Not Available Not Available N ot Available prednisolone sodium phosphate 5 mg base/5 mL (6.7 mg/5 mL) oral soln GARGLE AND SWALLOW 5ML BY MOUTH TWICE A DAY FOR 10 DAYS active Not Available Not Available Not Available Saline Nasal 0.65 % spray aerosol Take 2 sprays every 3-4 hours by nasal route as needed. 2023 active Not Available Not Available Not Avai lable rosuvastatin 40 mg tablet TOME 1 TABLETA POR V A ORAL TODOS LOS D active Not Available Not Available No t Available nitrofuranto in monohydrate/ macrocrystal s 100 mg capsule TOME FAUSTINA C PSULA CADA 12 HORAS CON ALIMENTO active Not Available Not Available No t Available Flovent HFA 220 mcg/actuatio n aerosol inhaler TOME FAUSTINA INHALACION POR VIA ORAL DOS VECES AL СЕРГЕЙ active Not Available Not Available No t Available vitamin E (dl, acetate) 45 mg (100 unit) capsule TOME 1 C PSULA POR V A ORAL EN LA MA STACY active Not Available Not Available No t Available cholecalcife rol (vitamin D3) 25 mcg (1,000 unit) tablet TOME 1 TABLETA POR V A ORAL TODOS LOS D active Not Available Not Available No t Available hydrochlorot hiazide 12.5 mg tablet TOME 1 TABLETA POR V A ORAL TODOS LOS D active Not Available Not Available No t Available L.acidophil, salivari-Bif quang bifidum-Stre p thermoph 175 mg capsule TAKE 1 CAPSULE BY MOUTH EVERY DAY active Not Available Not Available No t Available diclofenac 1 % topical gel APPLY 2 GRAMS TOPICALLY FOUR TIMES DAILY active Not Available Not Available No t Available Vitamin D3 50 mcg (2,000 unit) tablet TOME FAUSTINA TABLETA TODOS LOS D active Not Available Not Available No t Available vitamin E (dl, acetate) 180 mg (400 unit) capsule TOME FAUSTINA C PSULA DOS VECES AL D A active Not Available Not Available No t Available GaviLyte-G 236 gram-22.74 gram-6.74 gram-5.86 gram oral solution PLEASE SEE ATTACHED FOR DETAILED DIRECTIONS active Not Available Not Available N ot Available blood pressure test kit-large cuff USE TO CHECK BLOOD PRESSURE 3 TIMES A WEEK active Not Available Not Available No t Available Eliquis 5 mg tablet TOME 1 TABLETA POR V A ORAL DOS VECES AL D A active Not Available Not Available No t Available Creon 36,000 unit-114,000 unit-180,000 unit capsule,eden yed release TOME 2 C PSULAS POR V A ORAL CUATRO VECES AL D A active Not Available Not Available No t Available guaifenesin ER 600 mg tablet, extended release 12 hr Take 1 tablet every 12 hours by oral route for 15 days. 2023 active Not Available Not Available Not Avai lable Arnuity Ellipta 200 mcg/actuatio n powder for inhalation INHALE UN SOPLIDO POR V A ORAL TODOS LOS D active Not Available Not Available No t Available Incruse Ellipta 62.5 mcg/actuatio n powder for inhalation INHALE 1 PUFF BY INHALATION ROUTE EVERY DAY IN THE MORNING AT THE SAME TIME EACH DAY active Not Available Not Available No t Available Wixela Inhub 250 mcg-50 mcg/dose powder for inhalation INHALE UN SOPLIDO POR V A ORAL DOS VECES AL D A active Not Available Not Available No t Available Chest Congestion Relief DM 10 mg-100 mg/5 mL oral syrup TAKE 5 ML POR V A ORAL CADA CUATRO HORAS CUANDO SEA NECESARIO PARA LA TOS FOR UP TO 10 DAYS active Not Available Not Available No t Available Wegovy 2.4 mg/0.75 mL subcutaneous pen injector INJECT 2.4 ML UNDER THE SKIN EVERY 7 (SEVEN) DAYS. active Not Available Not Available No t Available Wegovy 1.7 mg/0.75 mL subcutaneous pen injector INJECT 1.7 MG UNDER THE SKIN 1 (ONE) TIME PER WEEK. active Not Available Not Available No t Available Wegovy 1 mg/0.5 mL subcutaneous pen injector INJECT ONE PEN (=1MG) SUBCUTANEOU SLY ONCE A WEEK active Not Available Not Available No t Available Wegovy 0.25 mg/0.5 mL subcutaneous pen injector INJECT ONE PEN (=0.25MG) SUBCUTANEOU SLY ONCE A WEEK DIRECTED active Not Available Not Available No t Available Wegovy 0.5 mg/0.5 mL subcutaneous pen injector INJECT 0.5 MG UNDER THE SKIN EVERY 7 (SEVEN) DAYS. active Not Available Not Available No t Available Vitals Date Recorded Heart rate Body height Oxygen saturation Oxygen saturation in Arterial blood by Pulse oximetry Body weight Respiratory rate Systolic blood pressure Diastolic blood pressure Provider Name and Address Organization Details Last Updated DateTime 4 73 /min 162.56 cm 96 % 96 % 847882. 16 g 16 /min 121 mm[Hg] 87 mm[Hg] Not Available Before the Call 4 21:44:22 Date Recorded Heart rate Respiratory rate Body temperature Oxygen saturation Oxygen saturation in Arterial blood by Pulse oximetry Systolic blood pressure Diastolic blood pressure Systolic blood pressure Diastolic blood pressure Provider Name and Address Organization Details Last Updated DateTime 4 105 /min 16 /min 98.7 [degF] 95 % 95 % 114 mm[Hg] 81 mm[Hg] 85 mm[Hg] 51 mm[Hg] Not Available Before the Call 4 14:41:24 Date Recorded Respiratory rate Heart rate Body weight Body temperature Oxygen saturation Oxygen saturation in Arterial blood by Pulse oximetry Heart rate Respiratory rate Systolic blood pressure Diastolic blood pressure Systolic blood pressure Diastolic blood pressure Provider Name and Address Organization Details Last Updated DateTime 4 16 /min 74 /min 34510.4 4 g 98.3 [degF] 98 % 98 % 84 /min 20 /min 114 mm[Hg] 84 mm[Hg] 120 mm[Hg] 86 mm[Hg] Not Available Before the Call 4 18:31:50 Date Recorded Oxygen saturation Oxygen saturation in Arterial blood by Pulse oximetry Body temperature Respiratory rate Heart rate Systolic blood pressure Diastolic blood pressure Provider Name and Address Organization Details Last Updated DateTime 4 98 % 98 % 98.1 [degF] 20 /min 95 /min 150 mm[Hg] 100 mm[Hg] Not Available [facility] - production 4 11:24:31 Date Recorded Body height Body mass index (BMI) Body weight Provider Name and Address Organization Details Last Updated DateTime 04/27/2024 162.56 cm 33.5 kg/m2 90637.51 g Davina Garner MD [address] [place] [address],[address], [place], [address], [facility] [employer] 04/27/2024 20:03:55 Social History None recorded. Functional Status None recorded. Mental Status None recorded. Family History Nothing Reported. Medical History No medical history recorded. Past Encounters Encounter ID Performer Location Encounter Start Date Encounter Closed Date Diagnosis/Indication Diagnosis SNOMED-CT Code Diagnosis ICD10 Code Diagnosis Note [id number] Allison Newman MD [address] [address] 04/11/2022 18:32:13 04/15/2022 15:46:34 Cough 20028684 R05.9 [id number] Davina Garner MD [address] [address] 01/07/2023 14:14:00 01/07/2023 22:56:53 Essential hypertension 11156794 I10 Patient exam is benign. Patient reassured/ his blood pressure is normal when taken with the medic cough. The medic measured the patient's blood pressure with his 5-year-old home machine and got 135/112 thus it is the patient's machine that is giving erroneous readingsNo te sent to [facility] to reach out to the special needs caregiver to assist the patient in obtaining a new home blood pressure monitor. Advised to continue all his regular medication s and follow-up with his PCP as needed [id number] [facility] [address] [place] [id number] 01/08/2023 15:21:28 01/08/2023 23:59:09 Viral upper respiratory tract infection 900427702 J06.9 And viral pharyngiti s-advised to gargle with warm salt water every few hours and he is not a diabetic so he may suck on a teaspoon of honey intermitte ntly which will help his throat. Advised soft diet if he is having pain on swallowing / he states he has cough medicine. He may take tylenol as prescribed - however he is on eliquis- I advised no NSAIDS unless cleared by pcp. Sandra Bloom MD [facility] - [facility] [address] [place] [phone] 06/23/2023 18:11:30 06/24/2023 10:34:59 Dizziness [id number] R42 [id number] Marlyn Casas MD [facility] - [facility] [address] [place] [phone] 08/05/2023 10:57:00 08/05/2023 16:00:41 Asthma 881394228 J45.909 Exacerbati on of moderate persistent asthma 992927702 J45.41 [id number] Eric Israel MD [facility] - [facility] [address] [place] [id number] 08/13/2023 12:51:38 08/13/2023 20:11:05 Acute exacerbation of chronic obstructive pulmonary disease 352775189 J44.1 The patient has a flare-up of his COPD. He will continue his current treatments . [id number] Eric Israel MD [facility] - [facility] [address] [place] [phone] 11/14/2023 12:02:23 11/14/2023 21:31:15 Vertigo [id number] R42 This 67-year-ol d male with a past history of vertigo developed mild vertigo today. He has taken Meclizine in the past with good relief. I ordered Meclizine 50 mg now. He will follow-up with his PCP if the vertigo persists. The patient agreed with this plan. [id number] Thomas Lyon MD [facility] - [facility] [address] [place] [phone] 11/27/2023 21:44:10 11/28/2023 10:18:17 Headache [id number] R51.9 [id number] Jeancarlos Gonsales MD [facility] - [facility] [address] [place] [phone] 03/20/2024 14:41:13 03/22/2024 13:41:42 Orthostatic hypotension 51352883 I95.1 Atrial fibrillation [id number] 6004 I48.91 [id number] RENU MARIE MD [facility] - [facility] [address] [place] [id number] 03/31/2024 18:19:08 04/01/2024 11:10:35 Dizziness [id number] R42 Evaluation in the field was performed by my pier hand helper colleague, as noted above, I provided real-time direction and supervisio n for this visit. The evaluation revealed a 68-year-ol d male with a history of atrial fibrillati on , currently on Apixaban, who was referred for evaluation due to concerns of low blood pressure by his VNA during their visit today. The patient reports that his VNA checked his blood pressure with a home electronic device, which showed a systolic reading in the 90s. The patient had no complaints during the time of the visit. He denies chest pain, shortness of breath, abdominal pain, back pain, shoulder pain, dizziness, headache, or nausea/vom iting/diar timothy. He is tolerating oral intake well. Vital Signs: Stable, BP 120/86, negative orthostati cs.Exam: Clear lungs, no lower extremity edema .EKG: Atrial fibrillati on, rate-contr olled.Garry rgies: Reviewed. Impression :Worried but well Plan:-The patient was advised to continue taking his medication s as prescribed .-It may benefit the patient to have his home blood pressure machine calibrated with his PCP's blood pressure readings to ensure accuracy.- Red flags were discussed with the patient, including symptoms to watch for and when to seek further evaluation . Primary care, consider__ _ Dispositio n: We discussed the diagnostic uncertaint y of home visits and the risk associated with this. In this case, the patient and I felt this to be an acceptable and reasonable amount of risk given the benefit of avoiding an ED visit. We discussed the need to seek care urgently/e mergently in the setting of any new or worsening serious symptoms, particular ly weakness, dizziness, CP, SOB, nausea, vomiting , palpitatio ns or any other concerns. [id number] Marlyn Casas MD Main - [facility] [address] [place] [address] [phone] 04/21/2024 10:14:37 04/22/2024 00:16:20 Asthma-chronic obstructive pulmonary disease overlap syndrome [id number] J44.9 Viral uppe r respiratory tract infection [id number] J06.9 [id number] Davina Garner MD Main - [facility] [address] [place] [address] [phone] 04/27/2024 11:24:18 04/27/2024 22:19:18 Headache [id number] R51.9 w/ dizziness- possibly sinusitisS lightly less dizzy, BP unchanged still with diastolic hypertensi on seated, pulse improved status post IV fluids. Has meclizine at home advised to take 25 mg 3 times a day and change positions slowly. He verified understand ing Allergies and pharmacy verified Since is refusing ED currently advise close follow-up with PCP.Advise d warm compresses to sinuses - stop sinex due to effects possibly on pulse/ BP-will send up-to-date Rx on fluticason e and add saline. Will also start him on amoxicilli n as the patient has no known drug allergies, pharmacy reviewed. Advised patient he should not take NSAIDs because he is on Eliquis and also has some element of CKD. He may take Tylenol max 3500 mg/day based on weight. Health Concerns Section Related Observation LastModified by Organization Detai ls LastModified Time None Recorded Concern Status LastModified by Organization Details LastModified Time None Recorded Advance Directives Directive None Recorded Payers Encounter Date Sequence Insurance Name Policy Number Policy Young Covered Member ID Young Member ID Guarantor Name 11/27/2023 1 [facility] [employer] - DOS ON OR AFTER 2022 - DUAL ELIGIBLE - CUSTODIAL OPTIONS AND ONE CARE (MEDICARE REPLACEMENT/AD VANTAGE - HMO) Min Arauz [id number] Min Arauz 03/20/2024 1 [facility] [employer] - DOS ON OR AFTER 2022 - DUAL ELIGIBLE - CUSTODIAL OPTIONS AND ONE CARE (MEDICARE REPLACEMENT/AD VANTAGE - HMO) Min Arauz [id number] Min Arauz 03/31/2024 1 [facility] [employer] - DOS ON OR AFTER 2022 - DUAL ELIGIBLE - CUSTODIAL OPTIONS AND ONE CARE (MEDICARE REPLACEMENT/AD VANTAGE - HMO) Min Arauz [id number] Min Arauz 04/21/2024 1 [facility] [employer] - DOS ON OR AFTER 2022 - DUAL ELIGIBLE - CUSTODIAL OPTIONS AND ONE CARE (MEDICARE REPLACEMENT/AD VANTAGE - HMO) Min Arauz [id number] Min Arauz 04/27/2024 1 [facility] - DOS ON OR AFTER 2022 - DUAL ELIGIBLE - CUSTODIAL OPTIONS AND ONE CARE (MEDICARE REPLACEMENT/AD VANTAGE - HMO) Min Arauz [id number] Min Arauz Notes Date Note Type Note Provider Name and Address Organization Details Recorded Time 11/27/2023 text/html [facility] Nurse Triage Notes (Padmini Payne): Reason For Request: high BP Chief Complaints: Hypertension PMH: COPD/Asthma, Hypertension, CHF, Heart Disease, Diabetes Allergies: No Known Comments: Referral taken via [employer] Machine Repairer [id number]. Member with elevated BP, 153/112 and 156/120, took his HS medications. Member with headache and dizziness, denies chest pain, mild sob, but is not new, denies any arm or jaw pain, no numbness, tingling or weakness anywhere. Member would like to be evaluated. ...................... ...................... ...................... ...................... ...................... ...................... ......... Electrical Manager Note From Pradeep Rainey: [employer] visit for male pt. Pt reports headache and dizziness today in addition to noting high blood pressures on his home machine. Pt reports headache onset around 5 pm and pt took 500 mg tylenol without relief. Pt reports this has had happened many times before with ER admission for same issue 1 month ago. V/S taken with no hypertension noted. Heart rate irregular. 12 lead EKG completed showing afib, no other significant findings. Consulted with [facility] Dr. Lyon who advised pt should take another 500mg tylenol. Reviewed red flags for ED. Patient education provided. ...................... ...................... ...................... ...................... ...................... ...................... ......... Disposition: Fulfilled Thomas Lyon MD [address] [place] [address],[address], [place], [phone], [employer] 11/27/2023 23:06:36 03/20/2024 text/html This was a super vised home visit with pier hand helper Rivas Thapa. [facility] Nurse Triage Notes (Dov Lainez): Reason For Request: Patient was dizzy, fell, and hurt himself, possibly bp problems - Chief Complaints: Dizziness PMH: COPD/Asthma, Hypertension, Congestive Heart Failure, Coronary Artery Disease, Gastroesophageal Reflux Disease (GERD) Comments: Customer Care Voice Consultant verified the Pt.'s name//address and phone number. Education provided on the response time and the Pt. was advised to monitor reported s/s and seek emergency treatment if needed. Pt reports he was in the supermarket and felt dizzy and had a fall - Denies LOC - Witnessed - On blood thinners - SOB - Pt is speaking full sentences - I feel like my heart rate is low, and I am very nervous. Denies any injuries - Denies hitting his head - Denies chest pain - Concerns expressed - PT declines ER treatment. Electrical Manager Organization Information for Rivas Thapa Legal Name: [facility] Address: [address] [place] [address], [place] [address], Fleet Maintenance Foreman: Byron Mauro MD CLIA No.: [id number] Electrical Manager POC Test Results from Rivas Thapa EKG (14:32:21) EKG test performed. Attachments uploaded as part of this test result can be found under Documents section. ...................... ...................... ...................... ...................... ...................... ...................... ......... Electrical Manager Note From Rivas Thapa: This 68-year-old male with a history, including, but not limited to COPD, hypertension, congestive heart failure (on diuretics), coronary artery disease, GERD, atrial fibrillation (on apixaban) requested a visit to address two days of dizziness, shortness of breath and headache. Patient also reports that he fell at the grocery store earlier today. He denies striking his head or loss of consciousness. He complains of some mild left hip pain. Patient reports he is eating and drinking normally and has been taking all of his medications as prescribed. He denies any chest pain, vision, changes, fevers, nausea, vomiting, diarrhea.He presents awake and alert, in no acute distress. His blood pressure is orthostatic when standing. Pulse is irregular between 90 and 130. Nonfocal neurological exam. Lungs are clear throughout auscultation. Abdomen and soft, nontender, nondistended. No lower extremity edema. EKG uploaded, a-fib. [facility] contacted and agrees that an emergency department evaluation is necessary. Patient agreeable to ambulance transport to [facility] emergency department. 911 initiated and verbal SBAR given to [facility] ALS crew. ...................... ...................... ...................... ...................... ...................... ...................... ......... [facility] Consulted: Jeancarlos Gonsales ...................... ...................... ...................... ...................... ...................... ...................... ......... Disposition: Fulfilled Jeancarlos Gonsales MD [address] [place] [address],[address], [place], [phone], [employer] 03/20/2024 18:19:45 03/31/2024 text/html [facility] Nurse Triage Notes (China Mares): Reason For Request: pt sounds to have labored breathing, low bp and very dizzy Chief Complaints: Dizziness PMH: COPD/Asthma, Hypertension, Congestive Heart Failure, Coronary Artery Disease, Gastroesophageal Reflux Disease (GERD) Comments: Patient report dizziness x 5 days. Dizzy is intermittent with positional changes. BP 96/57. Shortness of breath at baseline. Reports eating and drinking adequately. Denies chest pain. No recent illness. No new medications. Education provided on the response time and the member was advised to monitor reported s/s and seek emergency treatment if needed ...................... ...................... ...................... ...................... ...................... ...................... ......... Electrical Manager Note From Chuy Finn: Pt had no complaints during time of visit. Pt sts his VN checked his BP and was in the 90's systolic with home electronic device. Pt was told he had to make an appt for a visit for eval. Pt denies CP, SOB, Abdominal pain, Jaw pain, back pain, shoulder pain, dizziness, Headache, or NVD. Baseline vitals and orthos assessed, WNL, Afebrile, Lungs clear, skin color good with good turgor, EKG performed and rhythm/A-fib. Pt stable. Pt taking eliquis. [facility] contacted and advised pt of signs indicating the ER, Drink plenty of fluids, Monitor symptoms. Allergies Discussed. ...................... ...................... ...................... ...................... ...................... ...................... ......... [facility] Consulted: Renu Marie ...................... ...................... ...................... ...................... ...................... ...................... ......... Disposition: Syed MARIE MD [address] [facility],[address], [place], [address], [employer] 03/31/2024 23:40:49 04/27/2024 text/html [facility] Nurse Triage Notes (Padmini Payne - RN): Chief Complaints: Common cold symptoms, Breathing problems PMH: COPD/Asthma, Hypertension, Congestive Heart Failure, Coronary Artery Disease, Gastroesophageal Reflux Disease (GERD), Chronic Kidney Disease, Obesity Comments: Patients VNA calling in to place a referral, patient present and identified via name and . Patient who was seen for same symptoms 04/21 and give a prednisone taper, which he improved on, but is now having rebound symptoms. Patient with occasional chest congestion, stuffy nose, hoarse voice, productive cough, headache and dizziness which is new yesterday, BRYSON. He denies chest pain, no fever/chills, no n/v/d. Per VNA his VSS, BP 134/72, HR 100, temp 98, o2 sat RA 94%, does not wear home o2, has a nebulizer but has not yet used this morning. Patient would like to be re-evaluated. Electrical Manager Organization Information for Cheikh Mejia Legal Name: [employer] Address: [address] [place] [address], Fleet Maintenance Foreman: Parish Ruiz MD CLIA No.: [id number] Electrical Manager POC Test Results from Cheikh Mejia EKG (13:04:26) EKG test performed. Reason for missing picture: Uploaded iSTAT Chem8+ (13:04:28) Na: 137 mEq/L K: 3.8 mEq/L Cl: 103 mEq/L iCa: 1.17 mmol/L TCO2: 22 mmol/L Glu: 94 mg/dL BUN: 25 mg/dL Crea: 1.3 mg/dL Hct: 34 % Hb: 11.6 g/dL A Rapid COVID antigen (13:04:29) COVID: - Rapid influenza antigen (13:04:30) Flu: - ...................... ...................... ...................... ...................... ...................... ...................... ......... Electrical Manager Note From Cheikh Mejia: Dispatched for the scheduled visit for the male patient with a headache. pt. was found alert and oriented x3 sitting in bed c/o of a severe headache from yesterday with dizziness upon sitting up. pt. noted he had been seen by [facility] on the but could not remember his diagnoses but had flu-like symptoms. noted he still had a cough and nasal congestion but other symptoms had subsided. stated he was having sinus pressure and tenderness in inferior orbital area. noted taking all medications as prescribed and using nasal spray as well as Tylenol with no relief. vitals assessed on scene. -chest pain -sob -abd pain -nvd -neck pain -back pain -weakness -blurred vision -bowel issues -urinary issues. pt. assessment airway open and patent breathing non labored circulation +radial pulse -heent abnormalities -jvd -tracheal deviation +and= chest rise and fall abd soft and non tender pelvis in tact +cms in all extremities -dcaptbtls -stroke scale findings. [facility] contacted and ordered COVID and FLU swab, BMP and orthostatic vital signs while sitting and standing in addition. 21 gauge butterfly LAC performed for BMP. all results forwarded and [facility] then ordered a 12 lead ekg and IV with 750 ml Normal Saline. IV established 18 gauge left forearm-normal saline IV drip 750 ml. all results forwarded to [facility] with changed after normal saline. [facility] noted she would send amoxicillin and Fluticasone and saline nasal spray to the patients pharmacy for possible nasal infection. red flag warnings discussed and noted to call 911 if headache or dizziness worsened any slurred speech, weakness, facial droop or syncope occurred. all times are approx.report completed by rob mejia. [facility] Lab Orders: rapid SARS CoV 2 Ag, QL IA, respiratory specimen: Performed ...................... ...................... ...................... ...................... ...................... ...................... ......... [facility] Consulted: Davina Garner ...................... ...................... ...................... ...................... ...................... ...................... ......... Disposition: FulfilledSEGMD: letty seen by [facility] on 04/21 and diagnosed with COPD exacerbation and given prednisone. COVID and flu tests were negative. He has been using Sinex and outdated fluticasone, with little relief. His cough has improved and he has had no noted fever/chills. He complains of a diffuse pounding headache since yesterday initially stated he has no history of headaches but he was seen by us in November 2023 with headache. He states he feels dizzy when he gets up but has had no visual changes, no photophobia, no speech changes, no stiff neck, no focal numbness or weakness.. He was taking Tylenol 1000 mg every 4-6 hours., Without significant relief. On record review, PMH significant for but not limited to hypertension, along with orthostatic hypotension and vertigo/ COPD/asthma/ Congestive Heart Failure, AF on Eliquis. Coronary Artery Disease, Gastroesophageal Reflux Disease (GERD), Chronic Kidney Disease, Obesity. Davina Garner MD [address] [facility] [facility],[address], [place], [address], [facility] - [employer] [facility] 04/27/2024 20:33:33
--- OUTSIDE RECORDS SUMMARY | 2024-06-16 08:58 | XMS_ITS | Encounter Summary ---
Author Organization [employer] [facility] Address [address] [facility] 7[address] [place] [address] Care Team Providers Care Commercial Airplane Pilot Name Role Phone Gemini Chavez MD Primary Care Provide r Reason for Visit * Reason Comments Med Refill Encounter Details Date Type Department Care Team (Late st Contact Info) Description 06/21/2022 Refill [facility] [address] [place], [place] [phone] Marsha Menjivar MD [address] [place], [place] [phone] Chronic systolic heart failure (CMS/HCC) Social History [...] Orientation Straight 03/11/2022 10 :15 AM EDT COVID-19 Exposure Response Date Recorded In the last 10 days, have yo u been in contact with someone who was confirmed or suspected to have Coronavirus/COVID-19? No / Unsure 06/12/2022 9:31 AM EST documented as of this encounter Plan of Treatment Upcoming Encounters Date Type Department Care Team (Late st Contact Info) Description 07/22/2024 11:00 AM EDT Office Visit [facility] [address] [place] [address] Gemini Chavez MD [address] [place] [address] documented as of this encounter Visit Diagnoses Diagnosis Chronic systolic heart failure (CMS/HCC) Chronic systolic heart failure documented in this encounter Additional Health Concerns Assessment Noted Time PHQ-9 Depression Total Score: 6 05/16/19 23 1:42 PM EST documented as of this encounter Care Teams Commercial Airplane Pilot Relationship Specialty Start Date End Date Gemini Chavez MD [address] [place] [address] PCP - General Family Medicine 01/21/18 [employer] 03/28/24 documented as of this encounter
--- OUTSIDE RECORDS SUMMARY | 2024-06-16 08:58 | XMS_ITS | Encounter Summary ---
Author Organization [employer] [facility] Address [address] [facility] [address] [facility] [address] [place] [address] Care Team Providers Care Staff Climate Scientist Name Role Phone Gemini Chavez MD Primary Care Provide r Reason for Visit * Reason Comments Med Change Request Encounter Details Date Type Department Care Team (Late st Contact Info) Description 01/08/2023 Refill [facility] [address] [place], [place] [phone] Marsha Menjivar MD [address] [place], [place] [phone] Chronic obstructive pulmonary disease, unspecified COPD type (CMS/HCC) Social History Tobacco Use Types Packs/Day [...] encounter Miscellaneous Notes * Telephone Encounter - Jacqueline Segura - 01/28/2023 11:54 AM EDT Rx generated for Nebulizer signed and faxed to [facility]. documented in this encounter Plan of Treatment Upcoming Encounters Date Type Department Care Team (Late st Contact Info) Description 07/22/2024 11:00 AM EDT Office Visit [facility] [address] [place] [address] Gemini Chavez MD [address] [place] [address] documented as of this encounter Visit Diagnoses Diagnosis Chronic obstructive pulmonary disease, unspecified COPD type (CMS/HCC) documented in this encounter Additional Health Concerns Assessment Noted Time PHQ-9 Depression Total Score: 6 05/16/19 23 1:42 PM EST documented as of this encounter Care Teams Staff Climate Scientist Relationship Specialty Start Date End Date Gemini Chavez MD [address] [place] [address] PCP - General Family Medicine 01/21/18 [employer] 03/28/24 documented as of this encounter
--- OUTSIDE RECORDS SUMMARY | 2024-06-16 08:58 | XMS_ITS | Encounter Summary ---
Author Organization [facility] Address [address] [facility] [address] [place] [address] Care Team Providers Care Music Composer Name Role Phone Gemini Chavez MD Primary Care Provide r Reason for Visit * Reason Comments Med Refill Encounter Details Date Type Department Care Team (Late st Contact Info) Description 09/08/2022 Refill [facility] [address] [place], [place] [phone] Umer Sears MD [address] [place], [place] [phone] Seasonal allergies Social History Tobacco Use Types Packs/Day Years [...] Description 07/22/2024 11:00 AM EDT Office Visit [facility] MED[facility] [address] [place], [place] [phone] eGmini Chavez MD [address] [place], [place] [phone] documented as of this encounter Visit Diagnoses Diagnosis Seasonal allergies Allergic rhinitis, cause unspecified documented in this encounter Additional Health Concerns Assessment Noted Time PHQ-9 Depression Total Score: 6 05/16/19 23 1:42 PM EST documented as of this encounter Care Teams Music Composer Relationship Specialty Start Date End Date Gemini Chavez MD [address] [place] [address] PCP - General Family Medicine 01/21/18 [employer] 03/28/24 documented as of this encounter
--- OUTSIDE RECORDS SUMMARY | 2024-06-16 08:58 | XMS_ITS | Encounter Summary ---
Author Organization [employer] Address [address] [facility] [address] [place] [address] Care Team Providers Care Milk Collector Name Role Phone Gemini Chavez MD Primary Care Provide r Reason for Visit * Reason Onset Date Comments Referral 03/14/2023 Encounter Details Date Type Department Care Team ([facility] st Contact Info) Description 03/14/2023 Telephone [facility] [address] [place], [place] [phone] Gemini Chavez MD [address] [place] [address] Referral Social History Tobacco Use Types Packs/Day Years Used Date Smoking Tobacco: Never Passive Smoke Exposure: Never Smokeless Tobacco: Never Alcohol Use Standard Drinks/Week Comments Never 0 (1 standard drink = 0.6 oz pur e alcohol) Depression Answer Date Recorded Patient Health Questionnaire-9 Score 6 05/16/2022 Housing Stability Answer Date Recorded What is your housing situation today? I have hubert doshi 02/28/[address] you li ve. Do you have problems with any of the following? None of the above 02/28/2023 Food Insecurity Answer Date Recorded Within the past 12 months, y ou worried that your food would run out before you got money to buy more: Never True 02/28/2023 Within the past 12 months,th e food you bought just didn't last and you didn't have enough money to get more: Never True Transportation Answer Date Recorded In the past 12 months, has l ack of transportation kept you from medical appts, meetings, work or from getting things needed for daily living? No 02/28/2023 Utilities Answer Date Recorded In the past 12 months, has t he electric, gas, oil or water company threatened to shut off services in your home? No 02/28/2023 Depression Answer Date Recorded Patient Health Questionnaire-2 Score 2 05/16/2022 Sex and Gender Information Value Date Recorded Sex Assigned at Male 03/11/2022 10:15 AM EDT Legal Sex Male 10:15 AM EDT Gender Identity Male 03/11/2022 10:15 AM EDT Sexual Orientation Straight 03/11/2022 10 :15 AM EDT documented as of this encounter Miscellaneous Notes * Telephone Encounter - Josette Oconnor - 03/14/2023 9:52 AM EDT Tc from pt requesting to add visits on Podiatry Jelena Nieves referral due to pain now in left toe,pt stated. documented in this encounter Plan of Treatment Upcoming Encounters Date Type Department Care Team (Late st Contact Info) Description 07/22/2024 11:00 AM EDT Office Visit [facility] [address] [place] [address] Gemini Chavez MD [address] [place] [address] documented as of this encounter Visit Diagnoses Not on filedocumented in this encounter Additional Health Concerns Assessment Noted Time PHQ-9 Depression Total Score: 6 05/16/19 23 1:42 PM EST documented as of this encounter Care Teams Milk Collector Relationship Specialty Start Date End Date Gemini Chavez MD [address] [place] [address] PCP - General Family Medicine 01/21/18 [employer] 03/28/24 documented as of this encounter
--- OUTSIDE RECORDS SUMMARY | 2024-06-16 08:58 | XMS_ITS | Encounter Summary ---
Author Organization [employer] Address 75 [facility] 7t [place] [address] Care Team Providers Care Hooker Off Name Role Phone Gemini Chavez MD Primary Care Provide r Reason for Visit * Reason Comments Med Refill Encounter Details Date Type Department Care Team ([facility] st Contact Info) Description 03/03/2024 Refill [facility] 230 [place], [place] [phone] Gemini Chavez MD 230 [place], [place] [phone] Social History Tobacco Use Types Packs/Day Years [...] Upcoming Encounters Date Type Department Care Team ([facility] st Contact Info) Description 07/22/2024 11:00 AM EDT Office Visit [facility] [address] [place] [phone] Gemini Chavez MD [address] [place] [address] documented as of this encounter Visit Diagnoses Not on filedocumented in this encounter Additional Health Concerns Assessment Noted Time PHQ-9 Depression Total Score: 0 09/03/19 24 9:55 AM EDT documented as of this encounter Care Teams Hooker Off Relationship Specialty Start Date End Date Gemini Chavez MD [address] [place] [address] PCP - General Family Medicine 01/21/18 [employer] 03/28/24 documented as of this encounter
--- OUTSIDE RECORDS SUMMARY | 2024-06-16 08:58 | XMS_ITS | Encounter Summary ---
Author Organization [employer] Address 75 [facility] 7t [place] [address] Care Team Providers Care Hand Assembler For Puller Over Name Role Phone Gemini Chavez MD Primary Care Provide r Reason for Visit * Reason Comments Med Refill Encounter Details Date Type Department Care Team ([facility] st Contact Info) Description 02/12/2024 Refill [facility] 230 [place], [place] [phone] Gemini Chavez MD 230 [place] [address] Prediabetes Social History Tobacco Use Types Packs/Day [...] Description 07/22/2024 11:00 AM EDT Office Visit [facility] [address] [place] [phone] Gemini Chavez MD 230 [place] [address] documented as of this encounter Visit Diagnoses Diagnosis Prediabetes Other abnormal glucose documented in this encounter Additional Health Concerns Assessment Noted Time PHQ-9 Depression Total Score: 0 09/03/19 24 9:55 AM EDT documented as of this encounter Care Teams Hand Assembler For Puller Over Relationship Specialty Start Date End Date Gemini Chavez MD [address] [place] [phone] PCP - General Family Medicine 01/21/18 [employer] 03/28/24 documented as of this encounter
--- OUTSIDE RECORDS SUMMARY | 2024-06-16 08:58 | XMS_ITS | Encounter Summary ---
Author Organization [employer] Address 75 [facility] 7t [place] [address] Care Team Providers Care Liquefaction And Regasification Helper Name Role Phone Gemini Chavez MD Primary Care Provide r Reason for Visit * Reason Onset Date Comments Nurse Triage 03/26/2023 Encounter Details Date Type Department Care Team ([facility] st Contact Info) Description 03/26/2023 Telephone [facility] 230 [place], [place] [phone] Gemini Chavez MD 230 [place] [address] Nurse Triage Social History Tobacco Use Types Packs/Day Years [...] t he electric, gas, oil or water [employer] threatened to shut off services in your [...] encounter Miscellaneous Notes * Telephone Encounter - Sharmila Chavez RN - 03/26/2023 11:47 AM EST Triage call with [place] [employer] [place] [id number] Pt reports ingrown toenail great toe on left foot for 3 days now. Pt reports it is painful and causes some limping when ambulating. Pt denies redness, drainage. Pt requests a referral to incident response coordinator which was very helpful last time this happened. Pt is advised will send this request to PCP and nursing team for follow up and Pt agreed. Pt declined to come to [facility] only wants incident response coordinator to cut this toenail. Protocol Used: Information Only Call - No Triage (Adult) Protocol-Based Disposition: Discuss with PCP and Callback by Nurse Today Video visit not offered Positive Triage Question: * Requesting referral to a specialist * All higher-acuity triage questions were negative Care Advice Discussed: * Reasons To Call Back - New symptoms develop - You have more questions - You become worse * Telephone Encounter - Winter Gleason - 03/26/2023 11:16 AM EST Symptom: Toenail Symptoms Outcome: Schedule an urgent appointment (within 1 hour) or talk to a nurse or provider soon Reason: Severe pain now The caller accepted this outcome Please contact pt at [phone] (word processing machine operator needed) documented in this encounter Plan of Treatment Upcoming Encounters Date Type Department Care Team ([facility] st Contact Info) Description 07/22/2024 11:00 AM EDT Office Visit [facility] [address] [place] [address] [phone] Gemini Chavez MD 230 [place], [place] [phone] documented as of this encounter Visit Diagnoses Not on filedocumented in this encounter Additional Health Concerns Assessment Noted Time PHQ-9 Depression Total Score: 6 05/16/19 23 1:42 PM EST documented as of this encounter Care Teams Liquefaction And Regasification Helper Relationship Specialty Start Date End Date Gemini Chavez MD 230 [place] [address] PCP - General Family Medicine 01/21/18 [employer] 03/28/24 documented as of this encounter
--- OUTSIDE RECORDS SUMMARY | 2024-06-16 08:58 | XMS_ITS | Encounter Summary ---
Author Organization [employer] Address 75 [facility] 7t [place] [address] Care Team Providers Care Lcac Operator Name Role Phone Gemini Chavez MD Primary Care Provide r Reason for Visit * Reason Comments Med Refill Encounter Details Date Type Department Care Team ([facility] st Contact Info) Description 05/14/2024 Refill [facility] 230 [place], [place] [phone] Gemini Chavez MD 230 [place], [place] [phone] Class 1 obesity due to excess calories with serious comorbidity and body mass index (BMI) of 33.0 to 33.9 in adult Social History Tobacco Use Types Packs/Day Years [...] Description 07/22/2024 11:00 AM EDT Office Visit [facility] 230 [place] [address] Gemini Chavez MD 230 [place] [address] documented as of this encounter Visit Diagnoses Diagnosis Class 1 obesity due to excess calories with serious comorbidity and body mass index (BMI) of 33.0 to 33.9 in adult documented in this encounter Additional Health Concerns Assessment Noted Time PHQ-9 Depression Total Score: 0 09/03/19 24 9:55 AM EDT documented as of this encounter Care Teams Lcac Operator Relationship Specialty Start Date End Date Gemini Chavez MD 230 [place] [address] PCP - General Family Medicine 01/21/18 [employer] 03/28/24 documented as of this encounter
--- OUTSIDE RECORDS SUMMARY | 2024-06-16 08:58 | XMS_ITS | Encounter Summary ---
Author Organization [employer] Address 75 [facility] 7t [place] [address] Care Team Providers Care Sign Language Teacher Name Role Phone Gemini Chavez MD Primary Care Provide r Reason for Visit * Reason Comments Med Refill Encounter Details Date Type Department Care Team ([facility] st Contact Info) Description 06/03/2024 Refill [facility] 230 [place], [place] [phone] Gemini Chavez MD 230 [place], [place] [phone] Social History Tobacco Use Types Packs/Day Years [...] Upcoming Encounters Date Type Department Care Team ([facility] st Contact Info) Description 07/22/2024 11:00 AM EDT Office Visit [facility] [address] [place] [address] Gemini Chavez MD [address] [place] [address] documented as of this encounter Visit Diagnoses Not on filedocumented in this encounter Additional Health Concerns Assessment Noted Time PHQ-9 Depression Total Score: 0 09/03/19 24 9:55 AM EDT documented as of this encounter Care Teams Sign Language Teacher Relationship Specialty Start Date End Date Geimni Chavez MD [address] [place] [address] PCP - General Family Medicine 01/21/18 [employer] 03/28/24 documented as of this encounter
--- OUTSIDE RECORDS SUMMARY | 2024-06-16 08:59 | XMS_ITS | Encounter Summary ---
Author Organization [employer] Address 75 [facility] 7t [place] [address] Care Team Providers Care Dairy Clerk Name Role Phone Gemini Chavez MD Primary Care Provide r Reason for Visit * Reason Comments Med Refill Encounter Details Date Type Department Care Team ([facility] st Contact Info) Description 05/08/2024 Refill [facility] 230 [place], [place] [phone] Gemini Chavez MD 230 [place], [place] [phone] Class 1 obesity due to excess calories [...] encounter Miscellaneous Notes * Telephone Encounter - Gemini Chung MD - 05/10/2024 12:19 PM EST I change prescription to zepbound thank you documented in this encounter Plan of Treatment Upcoming Encounters Date Type Department Care Team (Late st Contact Info) Description 07/22/2024 11:00 AM EDT Office Visit [facility] [address] [place] [address] Gemini Chavez MD 230 [place] [address] documented as of this encounter Visit Diagnoses Diagnosis Class 1 obesity due to excess calories with serious comorbidity and body mass index (BMI) of 33.0 to 33.9 in adult documented in this encounter Additional Health Concerns Assessment Noted Time PHQ-9 Depression Total Score: 0 09/03/19 24 9:55 AM EDT documented as of this encounter Care Teams Dairy Clerk Relationship Specialty Start Date End Date Gemini Chavez MD [address] [place] [address] PCP - General Family Medicine 01/21/18 [employer] 03/28/24 documented as of this encounter
--- OUTSIDE RECORDS SUMMARY | 2024-06-16 08:59 | XMS_ITS | Encounter Summary ---
Author Organization [employer] Address 75 [facility] 7t [place] [address] Care Team Providers Care Salvage Winder And Inspector Name Role Phone Gemini Chavez MD Primary Care Provide r Encounter Details Date Type Department Care Team (Late st Contact Info) Description 07/10/2023 Orders Only [facility] 230 [place], [place] [phone] Gemini Chavez MD 230 [place], [place] [phone] Mixed stress and urge urinary incontinence (Primary Dx) Social History Tobacco Use Types Packs/Day Years Used Date Smoking Tobacco: Never Passive Smoke Exposure: Never Smokeless Tobacco: Never Alcohol Use Standard Drinks/Week Comments Never 0 (1 standard drink = 0.6 oz pur e alcohol) Depression Answer Date Recorded Patient Health Questionnaire-9 Score 6 05/16/2022 Housing Stability Answer Date Recorded What is your housing situation today? I have hubertjuarez doshi 02/28/[address] you [...] the past 12 months, has t he [employer], [employer], oil or water company threatened to shut [...] AM EDT Office Visit [facility] [address] [place] [address] Gemini Chavez MD [address] [place] [address] documented as of this encounter Visit Diagnoses Diagnosis Mixed stress and urge urinary incontinence- Primary Mixed incontinence urge and stress (male)(female) documented in this encounter Additional Health Concerns Assessment Noted Time PHQ-9 Depression Total Score: 6 05/16/19 23 1:42 PM EST documented as of this encounter Care Teams Salvage Winder And Inspector Relationship Specialty Start Date End Date Gemini Chavez MD [address] [place] [address] PCP - General Family Medicine 01/21/18 [employer] 03/28/24 documented as of this encounter
--- OUTSIDE RECORDS SUMMARY | 2024-06-16 08:59 | XMS_ITS | Encounter Summary ---
Author Organization [employer] Address 75 [facility] 7t [place] [address] Care Team Providers Care Slimer Name Role Phone Gemini Chavez MD Primary Care Provide r Reason for Visit * Reason Onset Date Comments medication denied 05/11/2024 Encounter Details Date Type Department Care Team ([facility] st Contact Info) Description 05/11/2024 Telephone [facility] 230 [place], [place] [phone] Gemini Chavez MD 230 [place] [address] medication denied Social History Tobacco Use Types Packs/Day Years [...] * Telephone Encounter - Dorys Arauz - 05/20/2024 2:32 PM EST PA initiated on [employer] for Zepbound . Approval/denial pending. * Telephone Encounter - Josy Arizmendi RN - 05/11/2024 10:06 AM EST Telephone call returned to patient in regards to below message. Patient stating medication was denied at pharmacy, would like PA. Patient verbalized understanding and denied having any further questions or concerns at this time. Patient to follow up as needed. * Telephone Encounter - Steffany Adams - 05/11/2024 9:05 AM EST Tc from pt notifying (roslyn) got denied in the pharmacy as he was recommend to contact pcp documented in this encounter Plan of Treatment Upcoming Encounters Date Type Department Care Team (Late st Contact Info) Description 07/22/2024 11:00 AM EDT Office Visit [facility] MED[facility] [address] [place] [phone] Gemini Chavez MD 230 [place] [address] documented as of this encounter Visit Diagnoses Not on filedocumented in this encounter Additional Health Concerns Assessment Noted Time PHQ-9 Depression Total Score: 0 09/03/19 9:55 AM EDT documented as of this encounter Care Teams Slimer Relationship Specialty Start Date End Date Gemini Chavez MD 230 [place] [address] PCP - General Family Medicine 01/21/18 [employer] 03/28/24 documented as of this encounter
--- OUTSIDE RECORDS SUMMARY | 2024-06-16 08:59 | XMS_ITS | Encounter Summary ---
Author Organization [employer] Address 75 [facility] 7t [place] [address] Care Team Providers Care Creative Technologist Name Role Phone Gemini Chavez MD Primary Care Provide r Reason for Referral * Medications - Closed Specialty Diagnoses / Procedures Referred By Klever dozier Referred To Contact Diagnoses Class 2 severe obesity due to excess calories with serious comorbidity and body mass index (BMI) of 38.0 to 38.9 in adult ([facility]) Gemini Chavez MD [address] [place] [address] Phone: tel: fax: Referral ID Status Reason Start Date Expiration Date Visits Re quested Visits Authorized [id number] Closed 05/10/2024 05/10/2025 1 1 Encounter Details Date Type Department Care Team (Late st Contact Info) Description 05/10/2024 Orders Only [facility] 230 [place], [place] [phone] Gemini Chavez MD [address] [place], [place] [phone] Stage 3 chronic kidney disease, unspecified whether stage 3a or 3b CKD ([facility]/HCC) (Primary Dx); Class 2 severe obesity due to excess calories with serious comorbidity and body mass index (BMI) of 38.0 to 38.9 in adult (CMS/HCC) Social History Tobacco Use Types Packs/Day [...] Office Visit [facility] 230 [place], [place] [phone] Gemini Chavez MD [address] [place] [address] documented as of this encounter Visit Diagnoses Diagnosis Stage 3 chronic kidney disease, unspecified whether stage 3a or 3b CKD (CMS/HCC)- Primary Class 2 severe obesity due to excess calories with serious comorbidity and body mass index (BMI) of 38.0 to 38.9 in adult (CMS/[facility]) documented in this encounter Additional Health Concerns Assessment Noted Time PHQ-9 Depression Total Score: 0 09/03/19 9:55 AM EDT documented as of this encounter Care Teams Creative Technologist Relationship Specialty Start Date End Date Gemini Chavez MD [address] [place] [address] PCP - General Family Medicine 01/21/18 [employer] 03/28/24 documented as of this encounter
--- OUTSIDE RECORDS SUMMARY | 2024-06-16 08:59 | XMS_ITS | Encounter Summary ---
Author Organization [facility] Address [address] [place] [phone] Care Team Providers Care Reporting Analyst Name Role Phone Gemini Chavez MD Primary Care Provide r Reason for Visit * Reason Comments Follow-up Painful feet and toe s Encounter Details Date Type Department Care Team (Late st Contact Info) Description 06/02/2024 1:45 PM EST Office Visit [facility] [place] [address] [phone] Gallito Hancock DPM [address] [address] Ingrowing nail (Primary Dx); Type II diabetes mellitus with peripheral circulatory disorder (CMS/HCC) Social History Tobacco Use Types Packs/Day Years Used Date Smoking Tobacco: Never Assessed Sex and Gender Information Value Date Recorded Sex Assigned at Not on file Gender Identity Not on file Sexual Orientation Not on file Job Start Date Occupation Industry Not on file Not on file Not on file documented as of this encounter Last Filed Vital Signs Vital Sign Reading Time Taken Comments Blood Pressure - - Pulse - - Temperature - - Respiratory Rate - - Oxygen Saturation - - Inhaled Oxygen Concentration - - Weight 104 kg (230 lb) 06/02/2024 1:35 PM EST Height 167.6 cm (5' 5.98 ) 06/02/2024 1:35 PM ES T Body Mass Index 37.14 06/02/2024 1:35 PM EST documented in this encounter Progress Notes * Gallito Hancock DPM - 06/02/2024 1:45 PM EST S Patient presents complaining of severe pain in both his great toenails he notes the nails grow intohis skin he feels like they are 7-10 on a visual scale sharp shooting achy worse activity present activity duration of many months and slowly been getting worse patient states that the ingrown nails seem to help tremendously when they were removed last time he states he is still concerned about surgical procedure he states he has multiple medical comorbidities and he states today may not be a good day but does not want them to be cleaned back he does note that he has been soaking regularly and using Vaseline states that he still trims his nail constantly he is a type II diabetic has had abouthaving nail procedure does not they have been trimmed back does not want to go to vascular surgery does not he is a well-controlled diabetic does report the pain discomfort is transient ROS: GENERAL: Pt denies nausea, fever, vomiting, chills, or shortness of breath. Pt in NAD. CARDIOLOGY: pt denies chest pain, palpitations LUNGS: pt denies shortness of breath MUSCULOSKELETAL: See HPI, otherwise no joint pain or swelling, back pain, or muscle pain. SKIN: see HPI, otherwise no lesions, rash or itching NEURO: No persistent headache, weakness or numbness The remainder of the review of systems is noncontributory PAST MEDICAL HISTORY: There is no problem list on file for this patient. Aching headaches acquired hypothyroidism anxiety state atrial fibrillation chronic obstructive lungdisease chronic systolic heart failure coronary arthrosclerosis dyspnea on exertion hypertension history of alcohol abuse mood disorder ptosis of eyelid pure hypercholesterolemia ruptured quadricep tendon simple retinal cyst sleep apnea stable hypohepatitis vascular insufficiency pain in toes vertigo hoarseness venous insufficiencies COPD polyarthralgia SOCIAL HISTORY: Social History Tobacco Use Smoking status: Not on file Smokeless tobacco: Not on file Substance Use Topics Alcohol use: Not on file History Never marked as reviewed. ACTIVE MEDICATIONS: No current outpatient medications on file. No current facility-administered medications for this visit. ALLERGIES: Patient has no known allergies. PHYSICAL EXAM: Height 5' 6 (1.676 m), weight 230 lb (104.3 kg). Estimated body mass index is 37.12 kg/m?? as calculated from the following: Height as of this encounter: 5' 6 (1.676 m). Weight as of this encounter: 230 lb (104.3 kg). BMI PLAN PODIATRIC EXAMINATION: GENERAL: Patient appears well nourished, with NAD. VASCULAR: Dorsalis pedis pulses are1/4 bilaterally and Posterior tibial pulses are 0/4 bilaterally.Capillary filling time within normal limits the digits. No pallor on elevation or rubor on dependency. Absent hair growth. No varicosities. Denies rest pain or claudication pain. NEUROLOGICAL: Sharp/dull sensation intact, protective sensation intact 10/10 with 5.07 semmes kaushik bilaterally, vibratory sensation with tuning fork intact to the tibial tuberosity. ORTHOPEDIC: Good muscle strength 5/5 of all flexors and extensors. Dorsi flexion of ankle ,10 degrees, plantar flexion WNL. No muscle atrophy. DERMATOLOGICAL:.Abnormal curvature both great toes and the growth medial lateral nail fold of the right and left great toenail with localized irritation of skin without signs of infection nails are thickened discolored BIOMECHANICS: STJ ROM wnl, MTJ ROM wnl, 1st MPJ ROM wnl. IMAGING: IMPRESSION: 1. Ingrowing nail 2. Type II diabetes mellitus with peripheral circulatory disorder (CMS/HCC) PLAN: Pt was seen and examined, history reviewed. Ingrown nail portions removed for immediate relief Treatment options were discussed patient is a for ingrowing nail would recommend permanent nail matrixectomy's patient states that to think about it he is afraid of wound formation and is a diabetic Ingrown portions removed recommend Vaseline topically daily with warm water soaks Revisited surgical options above minor surgical intervention patient states like to hold off on at this time Minor surgical procedure was revisited today in detail patient declined Discussed with patient regarding proper glucose control, exercise, and diet. Explained to patient proper shoe gear, and importance of daily foot checks. Patient is a candidate for minor surgery surgical standpoint secondary to A1c of 6.2 would have increased risk secondary to PVD Referral offered to vascular surgery for peripheral vascular disease patient is currently without any wounds but may benefit from establishing with their service given signs of lack of pulses patientlike to hold off on at this time I reviewed neuropathy and why it occurs in diabetics. I educated the patient on proper blood sugar control and the importance of an HgBA1c of less than 7.0%. I reviewed the signs and symptoms of neuropathy with the patient Pt to return for another evaluation in 3 months. Gallito Hancock DPM documented in this encounter Plan of Treatment Upcoming Encounters Date Type Department Care Team (Late st Contact Info) Description 09/01/2024 1:00 PM EDT Office Visit [facility] [place] [address] [phone] Gallito Hancock, DPM 175 [facility] 250 [place] [address] documented as of this encounter Visit Diagnoses Diagnosis Ingrowing nail- Primary Type II diabetes mellitus with peripheral circulatory disorder (CMS/[facility]) Type II or unspecified type diabetes mellitus with peripheral circulatory disorders, not stated as uncontrolled documented in this encounter Care Teams Reporting Analyst Relationship Specialty Start Date End Date Gemini Chavez MD [address] [phone] PCP - General 04/24/23 documented as of this encounter
--- OUTSIDE RECORDS SUMMARY | 2024-06-16 08:59 | XMS_ITS | Encounter Summary ---
Author Organization [facility] Address [address] [facility] [address] [place] [address] Care Team Providers Care Compliance Clerk Name Role Phone Gemini Chavez MD Primary Care Provide r Reason for Visit * Reason Comments Med Refill Encounter Details Date Type Department Care Team ([facility] st Contact Info) Description 10/20/2023 Refill [facility] [address] [place], [place] [phone] Gemini Chavez MD [address] [place] [address] Seasonal allergies Social History Tobacco Use Types [...] Recorded Patient Health Questionnaire-2 Score 0 09/03/2023 Sex and Gender Information Value Date Recorded Sex Assigned at Male 03/11/2022 10:15 AM EDT Legal Sex Male 10:15 AM EDT Gender Identity Male 03/11/2022 10:15 AM EDT Sexual Orientation Straight 03/11/2022 10 :15 AM EDT documented as of this encounter Plan of Treatment Upcoming Encounters Date Type Department Care Team (Late st Contact Info) Description 07/22/2024 11:00 AM EDT Office Visit [facility] MEDICINE [address] [place] [id number] Gemini Chavez MD [address] [place] [address] documented as of this encounter Visit Diagnoses Diagnosis Seasonal allergies Allergic rhinitis, cause unspecified documented in this encounter Additional Health Concerns Assessment Noted Time PHQ-9 Depression Total Score: 0 09/03/19 9:55 AM EDT documented as of this encounter Care Teams Compliance Clerk Relationship Specialty Start Date End Date Gemini Chavez MD [address] [place] [id number] PCP - General Family Medicine 01/21/18 [facility] 03/28/24 documented as of this encounter
[2024-06-16 09:24] LABS: MANUAL DIFF FLAG NO
--- NOTE | 2024-06-16 09:26 | PC.NURSE ---
Pt to CT Scan.
[2024-06-16 09:27] LABS: Basophils Percent Auto 0.3 % (0-2); Eosinophils Percent Auto 0.4 % (0-4); Hematocrit 33.3 % (42.0-52.0); Hemoglobin 11.5 g/dl (14.0-18.0); Imm Gran Abs Auto 0.02 X10*3/uL (0.00-0.03); Imm Gran Pct Auto 0.3 % (0.0-0.4); Lymphocytes Percent Auto 14.9 % (20-40); Mean Corpuscular HGB Conc 34.5 g/dl (31.0-36.0); Mean Corpuscular Hemoglobin 31.9 pg (27.0-33.0); Mean Corpuscular Volume 92.2 fL (80.0-98.0); Mean Platelet Volume 10.1 fL (9.4-12.4); Monocytes Absolute Auto 0.7 X10*3/uL (0.1-1.2); Monocytes Percent Auto 10.3 % (2-11); Neutrophils Percent Auto 73.8 % (45-73); Platelet Count 173 X10*3/uL (160-400); Red Blood Count 3.61 X10*6/uL (4.60-5.80); White Blood Count 6.8 X10*3/uL (4.8-10.8)
[2024-06-16 09:32] LABS: INTERNATIONAL NORM RATIO 1.3 (0.9-1.1); Prothrombin Time 15.5 SEC (10.9-12.4)
[2024-06-16 09:47] LABS: Alanine Aminotransferase 18 U/L (0-40); Albumin Level 3.8 g/dL (3.5-5.0); Alkaline Phosphatase 43 U/L (39-117); Anion Gap 10 (12-20); Aspartate Amino Transferase 22 U/L (5-37); Bilirubin Direct 0.3 mg/dL (0.0-0.5); Bilirubin Total 0.8 mg/dL (0.0-1.0); Blood Urea Nitrogen 12 mg/dL (9-16); Calcium 8.7 mg/dL (8.4-10.2); Carbon Dioxide 26 mmol/L (22-29); Chloride 109 mmol/L (96-108); Estimated Glomerular Filt Rate > 60; Glucose Random 140 mg/dL (60-115); Lipase 52 U/L (8-78); Potassium 3.5 mmol/L (3.3-5.1); Sodium 141 mmol/L (135-145); Total Protein 6.5 g/dL (6.5-8.0)
[2024-06-16 09:51] LABS: B Type Natriuretic Peptide 238 pg/mL (<100)
[2024-06-16 09:53] LABS: Troponin-I High Sensitivity 4.2 ng/L (<3.5-35.0)
[2024-06-16 10:04] LABS: Influenza A PCR NEGATIVE (Negative); Influenza B PCR NEGATIVE (Negative); Resp Syncy Virus RNA Qual PCR NEGATIVE (Negative); SARS COV2 PCR INHOUSE NEGATIVE (Negative)
[2024-06-16 10:09] VITALS: BP 124/89; PULSE 93; RESP 16; O2SAT 99
[2024-06-16 10:50] VITALS: BP 121/91; PULSE 84; RESP 14; O2SAT 100
[2024-06-16 11:34] VITALS: BP 156/93; PULSE 80; RESP 16; O2SAT 99
--- NOTE | 2024-06-16 11:55 | ED_ITS ---
HPI - SOB/Dyspnea General Chief Complaint: Dyspnea Stated Complaint: diff breathing, shoulder pain Time Seen by Provider: 06/16/24 11:15 Source: patient Limitations: language barrier and other (poor historian) History of Present Illness ED Provider: Sarah Beth Quinonez PA-C HPI Narrative: 68-year-old male with a history of chronic kidney disease, asthma, COPD, vertigo, morbid obesity, sleep apnea, AFib on apixaban, hypertension, hypothyroidism, diabetes, hyperlipidemia, GERD presents with multiple complaints. Patient states he suffers from vertigo and is often dizzy, he states he fell today, there was no head strike. There was no loss of consciousness. Patient primarily complains of left humeral pain. Patient also complains of bilateral ear pressure, that has been going on for months. In addition, patient complains of shortness of breath. When asked when his current symptoms began, states he is ?always short of breath?. Denies chest pain, fever, cough cold symptoms, wheezing. Denies unilateral calf pain or swelling. No recent travel, surgery, immobility, no hemoptysis. Related Data Home Medications ?Medication ?Instructions ?Recorded ?Confirmed apixaban 5 mg tablet 5 mg PO BID 05/24/20 05/04/24 cholecalciferol (vitamin D3) 50 50 mcg PO DAILY 05/24/20 05/04/24 mcg (2,000 unit) tablet clonazepam 1 mg tablet 1 mg PO BID PRN Anxiety 05/24/20 05/04/24 hydroxyzine pamoate 25 mg capsule 25 mg PO BID PRN Anxiety 05/24/20 05/04/24 levothyroxine 100 mcg tablet 100 mcg PO DAILY 05/24/20 05/04/24 lisinopril 40 mg tablet 40 mg PO DAILY 05/24/20 05/04/24 metoprolol succinate 200 mg 200 mg PO DAILY 05/24/20 05/04/24 tablet,extended release 24 hr rosuvastatin 40 mg tablet 40 mg PO DAILY 05/24/20 05/04/24 zolpidem 10 mg tablet 10 mg PO BEDTIME PRN Insomnia 05/24/20 05/04/24 albuterol sulfate 2.5 mg/3 mL 3 mg inhalation QID PRN Shortness 03/20/21 05/04/24 (0.083 %) solution for nebulization Of Breath Or Wheezing diclofenac sodium 1 % topical gel 2 g topical QID 08/08/23 05/04/24 vitamin E (dl, acetate) 45 mg (100 45 mg PO DAILY 08/08/23 05/04/24 unit) capsule umeclidinium 62.5 mcg/actuation 1 inh inhalation DAILY 03/17/24 05/04/24 blister powder for inhalation (Incruse Ellipta) semaglutide (weight loss) 2.4 mg subcut 03/19/24 05/04/24 mg/0.75 mL subcutaneous pen injector (Wegovy) furosemide 40 mg tablet 40 mg PO Q2D 05/25/24 hydrochlorothiazide 12.5 mg tablet 12.5 mg PO DAILY 05/25/24 meclizine 25 mg tablet 25 mg PO DAILY 05/25/24 metformin 500 mg tablet 500 mg PO BID 05/25/24 Previous Rx's ?Medication ?Instructions ?Recorded epinephrine 0.3 mg/0.3 mL 0.3 mg (0.3 mL) IM Q4H PRN 04/07/23 injection, auto-injector (EpiPen anaphylaxis #2 ea 2-Blaise) albuterol sulfate 90 mcg/actuation 2 puff PO Q6H PRN shortness of 12/23/23 aerosol inhaler (Ventolin HFA) breath or wheezing #18 ea fluticasone 250 mcg-salmeterol 50 1 ea PO BID #180 ea 12/29/23 mcg/dose blistr powdr for inhalation (Wixela Inhub) bisacodyl 5 mg tablet,delayed 10 mg (2 x 5 mg) PO BEDTIME 2 days 02/04/24 release (Dulcolax (bisacodyl)) #4 tabs L.acidophil,salivari-Bifido 1 cap PO DAILY #30 caps 03/19/24 bifidum-Strep thermoph 175 mg capsule (Acidophilus Probiotic Blend) fereue-thcqddly-djkhsmn 2 cap PO QID #720 caps 03/19/24 36,000-114,000-180,000 unit capsule,delay rel (Creon) pantoprazole 40 mg tablet,delayed 40 mg PO DAILY #30 tabs 03/19/24 release sennosides 8.6 mg tablet (Senna 17.2 mg (2 x 8.6 mg) PO BEDTIME 03/19/24 Laxative) #60 tabs simethicone 180 mg capsule 180 mg PO QID 30 days #120 caps 03/19/24 Allergies Allergy/AdvReac Type Severity Reaction Status Date / Time Iodinated Contrast Media Allergy Unknown HIVES Verified 06/16/24 08:35 [CONTRAST, IV] kiwi [KIWI] Allergy Unknown THROAT Verified 06/16/24 08:35 SWELLING Review of Systems 2 Review of Systems: Yes all other systems are reviewed and are negative Constitutional: Constitutional: Denies fatigue and Denies fever(s) ENT: Reports otalgia Cardiovascular: Cardiovascular: Denies chest pain and Reports dyspnea Respiratory: Respiratory: Denies cough, Reports dyspnea and Denies wheezing Gastrointestinal: Gastrointestinal: Denies abdominal pain, Denies nausea and Denies vomiting Endocrine: Endocrine: Denies fatigue Allergic/Immunologic: Allergic/Immunologic: Denies wheezing PMFSH Past Medical History Attestation statement: The following information was validated with the patient. Medical History Pre-op examination Colon cancer screening Hoarseness Dysphagia Throat disorder Bronchitis CHF (congestive heart failure) Afib Allergic rhinitis COPD (chronic obstructive pulmonary disease) CE (obstructive sleep apnea) Obesity (BMI 30-39.9) Hypothyroid Anxiety Palpitation HTN (hypertension) Surgical History Hx of umbilical hernia repair History of surgery on arm Hx of eye surgery Hx of colonoscopy Hx of knee surgery Hx of tonsillectomy Family History Family History Family/Other No problems noted. Social History Social History Household Members: None Housing: Apartment Do you presently have visiting nurse or other home services: Yes Alcohol intake: former Patient Tobacco Use Status: Former Tobacco user Advance Directives: Yes Advance Directives on File: Yes Advance Directives Date on File: 08/11/23 Do you have a plan to hurt others: No Plan service: No Physical Exam 2 Vital Signs: Vital Signs: Last Vital Signs Temp 97.7 F 06/16/24 08:31 Pulse 85 06/16/24 12:18 Resp 16 06/16/24 12:18 BP 146/98 H 06/16/24 12:18 Pulse Ox 99 06/16/24 12:18 O2 Del Method Room Air 06/16/24 12:18 BMI result Body Mass Index 32.5 Const: Other: Alert Orientation/consciousness: patient oriented x3 HEENT: Other: Bilateral TMs are subtly dull Eyes: Other: No nystagmus Resp: Other: Nonlabored respirations, lungs are clear to auscultation no wheezing Cardio: Other: Normal peripheral perfusion, trace pedal edema Skin: Other: Warm dry no rash Neuro: Other: No ataxia General: patient oriented x3, gait normal, no focal motor deficits and CN's II-XI intact bilaterally Extrem: Other: Pain with palpation mid humeral shaft on the left, no deformity, no focal pain over the left shoulder, patient was able to flex and extend from the elbow Psych: Other: Cooperative Medications Administered Discontinued Medications Generic Name Dose Route Start Last Admin Trade Name Freq PRN Reason Stop Dose Admin Acetaminophen 975 mg 06/16/24 12:41 06/16/24 12:52 Acetaminophen 325 Mg Tablet PO 06/16/24 12:42 975 mg ONCE ONE Administration Medical Decision Making Medical Decision Making [facility] Narrative: 68-year-old male with a history of chronic kidney disease, asthma, COPD, vertigo, morbid obesity, sleep apnea, AFib on apixaban, hypertension, hypothyroidism, diabetes, hyperlipidemia, GERD presents with multiple complaints. Patient states he suffers from vertigo and is often dizzy, he states he fell today, there was no head strike. There was no loss of consciousness. Patient primarily complains of left humeral pain. Patient also complains of bilateral ear pressure, that has been going on for months. In addition, patient complains of shortness of breath. When asked when his current symptoms began, states he is ?always short of breath?. Denies chest pain, fever, cough cold symptoms, wheezing. Denies unilateral calf pain or swelling. No recent travel, surgery, immobility, no hemoptysis. Problem: Asthma, COPD, AFib, diabetes, vertigo History: Per patient I have considered the following differential diagnoses: Intracranial hemorrhage, cervical spine injury, CVA, vertigo, labyrinthitis, serous otitis, COPD/asthma exacerbation, pneumonia, viral syndrome, ACS, heart failure, PE, fracture/dislocation exacerbation Plan: Regard to the patient's dizziness and ear complaint, he has evidence of serous otitis, perhaps this is the reason why he felt dizzy today, we will send with the care instructions. Given the fall and he is anticoagulated, he was scanned, imaging was ordered from triage. I do not believe this is a stroke, the patient states he is always dizzy, there was no change in his symptoms, he is neurologically intact. I also do not think this is vertigo, there was no nystagmus, he is asymptomatic. In regard to his shortness of breath, it is highly subjective. Thought about viral syndrome and pneumonia, however he has no infectious signs symptoms, viral panel and chest x-ray were obtained. The patient was not wheezing to suggest asthma or COPD exacerbation. Thought about ACS, however he has no chest pain, troponin EKG were ordered from triage. Also thought about new heart failure, however he is not overtly hypertensive, he is not hypoxic, he does not appear volume overloaded on exam, BNP added. Lastly, considering PE, however he is not hypoxic there was no pleuritic chest pain, he has no objective signs symptoms for DVT on exam, I am deferring a dimer as I do not think it is clinically warranted. In regard to the arm pain, we will obtain an x-ray, I have low suspicion for fracture or dislocation. I have independently reviewed the following tests: Labs: No leukocytosis, not anemic, no electrolyte abnormality, 1st troponin 4.2, 2nd troponin 3.4 , BNP 238 EKG: Atrial fibrillation with rapid ventricular response Abnormal ECG When compared with ECG of 20-Mar-2024 15:59, No significant change was found Referred By: Generic ED Physician Electronically Signed By: X-ray left shoulder: XR/XR shoulder LT min 2V IMPRESSION: Mild early degenerative changes left shoulder joint. No acute fracture or dislocation. Electronically signed by: Chacorta Noland MD 06/16/2024 12:59 PM EST RP Chest x-ray: XR/XR chest 1V IMPRESSION: Mild interstitial edema versus acute small airway inflammatory and/or infectious disease. Electronically signed by: Valentin Resendiz MD 06/16/2024 09:[address] brain: CT/CT head/brain wo IV con IMPRESSION: No acute intracranial abnormality. No fracture evident. Electronically signed by: Bladimir Doherty MD 06/16/2024 09:[address] cervical spine: CT/CT cervical spine wo IV con IMPRESSION: 1. Somewhat limited exam due to motion as detailed. 2. No CT evidence of acute cervical spine fracture or injury. 3. Spondylosis as discussed, most significant at C2-3 and C3-4. 4. Heavy left greater than right carotid bulb calcification. 5. No significant interval change from 06/19/2023. Electronically signed by: Bladimir Doherty MD 06/16/2024 09:56 AM EST RP Lab Data 06/16/24 09:16 06/16/24 09:16 Labs: Lab Results 06/16/24 06/16/24 Range/Units 09:16 11:38 WBC 6.8 (4.8-10.8) X10*3/uL RBC 3.61 L (4.60-5.80) X10*6/uL Hgb 11.5 L (14.0-18.0) g/dl Hct 33.3 L (42.0-52.0) % MCV 92.2 (80.0-98.0) fL MCH 31.9 (27.0-33.0) pg MCHC 34.5 (31.0-36.0) g/dl RDW 12.0 (11.0-16.0) % Plt Count 173 (160-400) X10*3/uL MPV 10.1 (9.4-12.4) fL Immature Gran % (Auto) 0.3 (0.0-0.4) % Neut % (Auto) 73.8 H (45-73) % Lymph % (Auto) 14.9 L (20-40) % Guthrie % (Auto) 10.3 (2-11) % Eos % (Auto) 0.4 (0-4) % Baso % (Auto) 0.3 (0-2) % Lymph # (Auto) 1.0 L (1.2-4.9) X10*3/uL Guthrie # (Auto) 0.7 (0.1-1.2) X10*3/uL Eos # (Auto) 0.0 (0.0-0.4) X10*3/uL Baso # (Auto) 0.0 (0.0-0.2) X10*3/uL Abs Immat Gran (auto) 0.02 (0.00-0.03) X10*3/uL Absolute Neuts (auto) 5.0 (2.0-8.3) x10*3/uL Absolute Nucleated RBC 0.000 (0.0-0.012) X10*3/uL Nucleated RBC % (auto) 0.0 (0.0-0.2) /100WBC PT 15.5 H (10.9-12.4) SEC INR 1.3 H (0.9-1.1) Sodium 141 (135-145) mmol/L Potassium 3.5 (3.3-5.1) mmol/L Chloride 109 H (96-108) mmol/L Carbon Dioxide 26 (22-29) mmol/L Anion Gap 10 L (12-20) BUN 12 (9-16) mg/dL Creatinine 1.10 (0.5-1.4) mg/dL Estim Creat Clear Calc 68.0 Estimated GFR > 60 Random Glucose 140 H (60-115) mg/dL Calcium 8.7 D (8.4-10.2) mg/dL Total Bilirubin 0.8 (0.0-1.0) mg/dL Direct Bilirubin 0.3 (0.0-0.5) mg/dL AST 22 (5-37) U/L ALT 18 (0-40) U/L Alkaline Phosphatase 43 (39-117) U/L Troponin I High Sens 4.2 D 3.4 (<3.5-35.0) ng/L B-Natriuretic Peptide 238 H (<100) pg/mL Total Protein 6.5 (6.5-8.0) g/dL Albumin 3.8 (3.5-5.0) g/dL Lipase 52 (8-78) U/L Influenza Type A (PCR) NEGATIVE (Negative) Influenza Type B (PCR) NEGATIVE (Negative) RSV RNA Qual (PCR) NEGATIVE (Negative) SARS-CoV-2 RNA (RT-PCR) NEGATIVE (Negative) Discharge Plan Discharge Clinical Impression: Breath shortness, Serous otitis media, Contusion of arm, left Patient Disposition: Home, Self-Care Instructions: Contusion in Adults (ED), Serous Otitis Media (ED), Shortness of Breath (ED) Additional Instructions: All of your screening labs including a cardiac enzymes were normal. The chest x-ray is clear, there was no fracture or dislocation noted of your left upper extremity. The CT scans of your brain and cervical spine were normal as well. In regard to your your discomfort, you have fluid within the inner ear. This is not an infection. It is congestion. It could be contributing to your chronic dizziness. Start using [id number] Zyrtec daily. In regard to your shortness of breath, there was no source identified that is contributing to your ongoing chronic symptoms. Follow up with your primary care provider, they may order pulmonary function testing for you. Prescriptions: No Action albuterol sulfate [Ventolin HFA] 90 mcg/actuation HFA aerosol inhaler 2 puff PO Q6H PRN (Reason: shortness of breath or wheezing) Qty: 18 0RF fluticasone propion-salmeterol [Wixela Inhub] 250-50 mcg/dose blister with device 1 ea PO BID Qty: 180 1RF epinephrine [EpiPen 2-Blaise] 0.3 mg/0.3 mL auto-injector 0.3 mg IM Q4H PRN (Reason: anaphylaxis) Qty: 2 0RF vitamin E (dl, acetate) 45 mg (100 unit) capsule 45 mg PO DAILY diclofenac sodium 1 % gel 2 g topical QID furosemide 40 mg tablet 40 mg PO Q2D zolpidem 10 mg tablet 10 mg PO BEDTIME PRN (Reason: Insomnia) hydroxyzine pamoate 25 mg capsule 25 mg PO BID PRN (Reason: Anxiety) cholecalciferol (vitamin D3) 50 mcg (2,000 unit) tablet 50 mcg PO DAILY lisinopril 40 mg tablet 40 mg PO DAILY apixaban 5 mg tablet 5 mg PO BID clonazepam 1 mg tablet 1 mg PO BID PRN (Reason: Anxiety) rosuvastatin 40 mg tablet 40 mg PO DAILY metoprolol succinate 200 mg tablet extended release 24 hr 200 mg PO DAILY levothyroxine 100 mcg tablet 100 mcg PO DAILY albuterol sulfate 2.5 mg /3 mL (0.083 %) solution for nebulization 3 mg inhalation QID PRN (Reason: Shortness Of Breath Or Wheezing) bisacodyl [Dulcolax (bisacodyl)] 5 mg tablet,delayed release (DR/EC) 10 mg PO BEDTIME 2 Days Qty: 4 0RF hydrochlorothiazide 12.5 mg tablet 12.5 mg PO DAILY metformin 500 mg tablet 500 mg PO BID Incruse Ellipta 62.5 mcg/actuation blister with device 1 inh inhalation DAILY meclizine 25 mg tablet 25 mg PO DAILY Wegovy 2.4 mg/0.75 mL pen injector subcut Creon 36,000-114,000- 180,000 unit capsule,delayed release(DR/EC) 2 cap PO QID Qty: 720 1RF L.acidoph,saliva-B.bif-S.therm [Acidophilus Probiotic Blend] 175 mg capsule 1 cap PO DAILY Qty: 30 6RF pantoprazole 40 mg tablet,delayed release (DR/EC) 40 mg PO DAILY Qty: 30 6RF sennosides [Senna Laxative] 8.6 mg tablet 17.2 mg PO BEDTIME Qty: 60 6RF simethicone 180 mg capsule 180 mg PO QID 30 Days Qty: 120 6RF Rx Instructions: after meals Print Language: [place]
[2024-06-16 12:10] LABS: Troponin-I High Sensitivity 3.4 ng/L (<3.5-35.0)
[2024-06-16 12:18] VITALS: BP 146/98; PULSE 85; RESP 16; O2SAT 99
[2024-06-16] MEDS: Acetaminophen 325 MG TABLET 975 MG PO (12:52)
[2024-06-16 13:23] VITALS: BP 146/98; PULSE 85; RESP 16; TEMP 36.5; O2SAT 99
== END 2024-06-16 13:33 | disposition home or self-care (01) ==
PROVIDERS: Physician Assistant Medical; Registered Nurse Emergency; Emergency Provider Emergency Medicine; PCP Internal Medicine
DX: R06.02 Shortness of breath (principal); H65.90 Unspecified nonsuppurative otitis media, unspecified ear; S40.022A Contusion of left upper arm, initial encounter; W19.XXXA Unspecified fall, initial encounter; Y93.9 Activity, unspecified; Y92.9 Unspecified place or not applicable; Y99.9 Unspecified external cause status; R05.9 Cough, unspecified; M54.2 Cervicalgia; M25.512 Pain in left shoulder; I48.91 Unspecified atrial fibrillation; E03.9 Hypothyroidism, unspecified; I13.0 Hypertensive heart and chronic kidney disease with heart failure and stage 1 through stage 4 chronic kidney disease, or unspecified chronic kidney disease; E11.22 Type 2 diabetes mellitus with diabetic chronic kidney disease; N18.9 Chronic kidney disease, unspecified; I50.9 Heart failure, unspecified; Z79.01 Long term (current) use of anticoagulants; Z03.818 Encounter for observation for suspected exposure to other biological agents ruled out
CPT/HCPCS: 0241U; 36415; 70450; 71045; 72125; 73030; 80048; 80076; 83690; 83880; 84484; 85025; 85610; 93005; 99284; 99285

== ENCOUNTER → 2024-06-16 08:37 | Outpatient (BNV) | payer OTHER, SELFPAY | PROVIDERS: PCP Internal Medicine; Visit Provider Radiology Diagnostic Radiology | DX: R91.8 Other nonspecific abnormal finding of lung field (principal); M19.012 Primary osteoarthritis, left shoulder; S09.90XA Unspecified injury of head, initial encounter; I65.23 Occlusion and stenosis of bilateral carotid arteries | CPT/HCPCS: 70450; 71045; 72125; 73030 ==

== ENCOUNTER 2024-07-01 05:41 | Emergency (ER) | payer OTHER, SELFPAY ==
--- NOTE | 2024-07-01 | ECG_ITS ---
Test Reason : htn Blood Pressure : */* mmHG Vent. Rate : 80 BPM Atrial Rate : * BPM P-R Int : * ms QRS Dur : 80 ms QT Int : 364 ms P-R-T Axes : * 3 2 degrees QTcB Int : 419 ms Atrial fibrillation with premature ventricular or aberrantly conducted complexes Abnormal ECG When compared with ECG of 16-Jun-2024 08:58, No significant change was found Referred By: Generic ED Physician Electronically Signed By: ANDREWS MARTINS
[2024-07-01 05:44] VITALS: BP 161/99; PULSE 88; RESP 20; TEMP 36.1; O2SAT 100; BMI 32.0
[2024-07-01 06:07] LABS: MANUAL DIFF FLAG NO
[2024-07-01 06:12] LABS: Basophils Percent Auto 0.4 % (0-2); Eosinophils Absolute Auto 0.1 X10*3/uL (0.0-0.4); Hemoglobin 12.3 g/dl (14.0-18.0); Imm Gran Abs Auto 0.02 X10*3/uL (0.00-0.03); Imm Gran Pct Auto 0.3 % (0.0-0.4); Lymphocytes Absolute Auto 1.3 X10*3/uL (1.2-4.9); Lymphocytes Percent Auto 18.5 % (20-40); Mean Corpuscular HGB Conc 34.2 g/dl (31.0-36.0); Mean Corpuscular Hemoglobin 31.4 pg (27.0-33.0); Mean Corpuscular Volume 91.8 fL (80.0-98.0); Mean Platelet Volume 10.4 fL (9.4-12.4); Monocytes Absolute Auto 0.8 X10*3/uL (0.1-1.2); Monocytes Percent Auto 11.4 % (2-11); Neutrophils Percent Auto 68.4 % (45-73); Platelet Count 186 X10*3/uL (160-400); Red Blood Count 3.92 X10*6/uL (4.60-5.80); Red Cell Distribution Width 12.4 % (11.0-16.0); White Blood Count 7.3 X10*3/uL (4.8-10.8)
[2024-07-01 06:29] LABS: Alanine Aminotransferase 29 U/L (0-40); Albumin Level 3.8 g/dL (3.5-5.0); Alkaline Phosphatase 44 U/L (39-117); Anion Gap 13 (12-20); Aspartate Amino Transferase 23 U/L (5-37); Blood Urea Nitrogen 16 mg/dL (9-16); Carbon Dioxide 22 mmol/L (22-29); Chloride 111 mmol/L (96-108); Creatinine Clr Calc Pharmacy 76.4; Estimated Glomerular Filt Rate > 60; Glucose Random 98 mg/dL (60-115); Sodium 142 mmol/L (135-145); Total Protein 6.7 g/dL (6.5-8.0)
[2024-07-01 06:36] LABS: Troponin-I High Sensitivity 5.1 ng/L (<3.5-35.0)
[2024-07-01 09:43] VITALS: BP 180/100; PULSE 73; RESP 18; O2SAT 99
--- NOTE | 2024-07-01 09:45 | ECG_ITS ---
Test Reason : REPEAT Blood Pressure : */* mmHG Vent. Rate : 75 BPM Atrial Rate : * BPM P-R Int : * ms QRS Dur : 80 ms QT Int : 390 ms P-R-T Axes : * 5 -3 degrees QTcB Int : 435 ms Atrial fibrillation Abnormal ECG When compared with ECG of 01-Jul-2024 05:53, No significant change was found Referred By: Shreyas Rivera Electronically Signed By: ANDREWS MARTINS
--- OUTSIDE RECORDS SUMMARY | 2024-07-01 10:53 | XMS_ITS | Encounter Summary ---
Author Organization [employer] Address 75 [facility] 7t [place] [address] Care Team Providers Care Head Porter Baggage Name Role Phone Gemini Chavez MD Primary Care Provide r Reason for Visit * Reason Comments Med Refill Encounter Details Date Type Department Care Team ([facility] st Contact Info) Description 06/09/2024 Refill [facility] MEDICINE [address] [place], [place] [phone] Gemini Ochoa MD 230 [place] [address] Primary hypertension Social History Tobacco Use Types [...] Description 07/22/2024 11:00 AM EDT Office Visit [facility] MED[facility] [address] [place] [address] Gemini Chavez MD [address] [place] [address] documented as of this encounter Visit Diagnoses Diagnosis Primary hypertension Unspecified essential hypertension documented in this encounter Additional Health Concerns Assessment Noted Time PHQ-9 Depression Total Score: 0 09/03/19 24 9:55 AM EDT documented as of this encounter Care Teams Head Porter Baggage Relationship Specialty Start Date End Date Gemini Chavez MD [address] [place] [address] PCP - General Family Medicine 01/21/18 [employer] 03/28/24 documented as of this encounter
--- OUTSIDE RECORDS SUMMARY | 2024-07-01 10:53 | XMS_ITS | Encounter Summary ---
Author Organization [employer] Address 75 [facility] 7t [place] [address] Care Team Providers Care Power Shovel Engineer Name Role Phone Gemini Chavez MD Primary Care Provide r Reason for Visit * Reason Comments Med Refill Encounter Details Date Type Department Care Team ([facility] st Contact Info) Description 05/14/2024 Refill [facility] MEDICINE 230 [place], [place] [phone] Gemini Chavez MD 230 [place], [place] [phone] Class 1 obesity due to excess calories [...] Description 07/22/2024 11:00 AM EDT Office Visit [facility] MEDICINE [address] [place] [address] Gemini Chavez MD 230 [place] [address] documented as of this encounter Visit Diagnoses Diagnosis Class 1 obesity due to excess calories with serious comorbidity and body mass index (BMI) of 33.0 to 33.9 in adult documented in this encounter Additional Health Concerns Assessment Noted Time PHQ-9 Depression Total Score: 0 09/03/19 24 9:55 AM EDT documented as of this encounter Care Teams Power Shovel Engineer Relationship Specialty Start Date End Date Gemini Chavez MD 230 [place] [address] PCP - General Family Medicine 01/21/18 [employer] 03/28/24 documented as of this encounter
--- OUTSIDE RECORDS SUMMARY | 2024-07-01 10:53 | XMS_ITS | Encounter Summary ---
Author Organization [facility] Address 75 [facility] 7t [place] [address] Care Team Providers Care Studio Sales Associate Name Role Phone Gemini Chavez MD Primary Care Provide r Reason for Visit * Reason Onset Date Comments Prior Authorization 06/10/2024 Encounter Details Date Type Department Care Team ([facility] st Contact Info) Description 06/10/2024 Telephone [facility] MEDICINE 230 [place], [place] [phone] Gemini Chavez MD 230 [place] [address] Prior Authorization Social History Tobacco Use Types [...] encounter Miscellaneous Notes * Telephone Encounter - Jovana Pulido - 06/18/2024 9:33 AM EST Tc from pt regarding PA. Pt stated he just spoke with health insurance and was advise to contact PCP. Additional information is required on PA. Contact pt at [phone] (japanese) * Telephone Encounter - Rohit Cruz - 06/10/2024 9:00 AM EST Tc from pt requesting a PA for Tirzepatide-Weight Management (Zepbound) 2.5 MG/0.5ML solution auto-injector because pt stated that he received a letter stating that PA got denied. Contact pt: [phone] (Georgian) documented in this encounter Plan of Treatment Upcoming Encounters Date Type Department Care Team (Late st Contact Info) Description 07/22/2024 11:00 AM EDT Office Visit [facility] MEDICINE [address] [place], [place] [phone] Gemini Chavez MD 230 [place] [address] documented as of this encounter Visit Diagnoses Not on filedocumented in this encounter Additional Health Concerns Assessment Noted Time PHQ-9 Depression Total Score: 0 09/03/19 9:55 AM EDT documented as of this encounter Care Teams Studio Sales Associate Relationship Specialty Start Date End Date Gemini Chavez MD [address] [place] [address] PCP - General Family Medicine 01/21/18 [employer] 03/28/24 documented as of this encounter
--- OUTSIDE RECORDS SUMMARY | 2024-07-01 10:53 | XMS_ITS | Encounter Summary ---
Author Organization [employer] Address 75 [facility] 7t [place] [address] Care Team Providers Care Hospitality Host Name Role Phone Gemini Chavez MD Primary Care Provide r Reason for Visit * Reason Onset Date Comments Appointment Request 08/21/2022 Encounter Details Date Type Department Care Team ([facility] st Contact Info) Description 08/21/2022 Telephone [facility] MEDICINE 230 [place], [place] [phone] Gemini Chavez MD 230 [place] [address] Appointment Request Social History Tobacco Use Types [...] an family emergency. Please contact pt at [phone] documented in this encounter Plan of Treatment Upcoming Encounters Date Type Department Care Team (Late st Contact Info) Description 07/22/2024 11:00 AM EDT Office Visit [facility] MEDICINE [address] [place] [address] Gemini Chavez MD 230 [place] [address] documented as of this encounter Visit Diagnoses Not on filedocumented in this encounter Additional Health Concerns Assessment Noted Time PHQ-9 Depression Total Score: 6 05/16/19 23 1:42 PM EST documented as of this encounter Care Teams Hospitality Host Relationship Specialty Start Date End Date Gemini Chavez MD [address] [place] [address] PCP - General Family Medicine 01/21/18 [employer] 03/28/24 documented as of this encounter
--- OUTSIDE RECORDS SUMMARY | 2024-07-01 10:53 | XMS_ITS | Encounter Summary ---
Author Organization [employer] Address [address] [facility] 7t [place] [address] Care Team Providers Care Sample Cutter Name Role Phone Gemini Chavez MD Primary Care Provide r Reason for Visit * Reason Comments Med Refill Encounter Details Date Type Department Care Team ([facility] st Contact Info) Description 02/12/2024 Refill [facility] MEDICINE 230 [place], [place] [phone] Gemini Chavez MD 230 [place] [address] Prediabetes Social History Tobacco Use Types Packs/Day [...] Description 07/22/2024 11:00 AM EDT Office Visit [facility] MEDICINE [address] [place] [address] Gemini Chavez MD 230 [place] [address] documented as of this encounter Visit Diagnoses Diagnosis Prediabetes Other abnormal glucose documented in this encounter Additional Health Concerns Assessment Noted Time PHQ-9 Depression Total Score: 0 09/03/19 24 9:55 AM EDT documented as of this encounter Care Teams Sample Cutter Relationship Specialty Start Date End Date Gemini Chavez MD [address] [place] [address] PCP - General Family Medicine 01/21/18 [employer] [place] 03/28/24 documented as of this encounter
--- OUTSIDE RECORDS SUMMARY | 2024-07-01 10:53 | XMS_ITS | Encounter Summary ---
Author Organization [employer] Address 75 [facility] 7t [place] [address] Care Team Providers Care Civil Clerk Name Role Phone Gemini Chavez MD Primary Care Provide r Reason for Visit * Reason Comments Med Refill Encounter Details Date Type Department Care Team ([facility] st Contact Info) Description 03/03/2024 Refill [facility] 230 [place], [place] [phone] Gemini Chavez MD 230 [place], [place] [phone] Social History Tobacco Use Types Packs/Day Years [...] Upcoming Encounters Date Type Department Care Team ([facility] st Contact Info) Description 07/22/2024 11:00 AM EDT Office Visit [facility] MEDICINE [address] [place] [address] Gemini Chavez MD [address] [place] [address] documented as of this encounter Visit Diagnoses Not on filedocumented in this encounter Additional Health Concerns Assessment Noted Time PHQ-9 Depression Total Score: 0 09/03/19 24 9:55 AM EDT documented as of this encounter Care Teams Civil Clerk Relationship Specialty Start Date End Date Gemini Chavez MD [address] [place] [address] PCP - General Family Medicine 01/21/18 [employer] 03/28/24 documented as of this encounter
--- OUTSIDE RECORDS SUMMARY | 2024-07-01 10:53 | XMS_ITS | Encounter Summary ---
Author Organization [employer] Address 75 [facility] 7t [place] [address] Care Team Providers Care Shooter Helper Name Role Phone Gemini Chavez MD Primary Care Provide r Reason for Visit * Reason Comments Med Refill Encounter Details Date Type Department Care Team ([facility] st Contact Info) Description 06/03/2024 Refill [facility] MEDICINE 230 [place], [place] [phone] Gemini Chavez MD 230 [place], [place] [phone] Social History Tobacco Use Types Packs/Day Years [...] Upcoming Encounters Date Type Department Care Team ([facility] st Contact Info) Description 07/22/2024 11:00 AM EDT Office Visit [facility] MEDICINE [address] [place] [address] Gemini Chavez MD [address] [place] [address] documented as of this encounter Visit Diagnoses Not on filedocumented in this encounter Additional Health Concerns Assessment Noted Time PHQ-9 Depression Total Score: 0 09/03/19 24 9:55 AM EDT documented as of this encounter Care Teams Shooter Helper Relationship Specialty Start Date End Date Gemini Chavez MD [address] [place] [address] PCP - General Family Medicine 01/21/18 [employer] 03/28/24 documented as of this encounter
--- OUTSIDE RECORDS SUMMARY | 2024-07-01 10:53 | XMS_ITS | Encounter Summary ---
Author Organization [employer] Address 75 [facility] 7t [place] [address] Care Team Providers Care Medical Technical Writer Name Role Phone Gemini Chavez MD Primary Care Provide r Reason for Visit * Reason Comments Med Refill Encounter Details Date Type Department Care Team ([facility] st Contact Info) Description 02/12/2024 Refill [facility] MEDICINE 230 [place], [place] [phone] Gemini Chavez MD 230 [place] [address] Prediabetes Social History Tobacco Use Types Packs/Day [...] Description 07/22/2024 11:00 AM EDT Office Visit [facility] MEDICINE [address] [place] [address] Gemini Chavez MD 230 [place] [address] documented as of this encounter Visit Diagnoses Diagnosis Prediabetes Other abnormal glucose documented in this encounter Additional Health Concerns Assessment Noted Time PHQ-9 Depression Total Score: 0 09/03/19 24 9:55 AM EDT documented as of this encounter Care Teams Medical Technical Writer Relationship Specialty Start Date End Date Gemini Chavez MD [address] [place] [address] PCP - General Family Medicine 01/21/18 [employer] 03/28/24 documented as of this encounter
--- OUTSIDE RECORDS SUMMARY | 2024-07-01 10:53 | XMS_ITS | Encounter Summary ---
Author Organization [facility] [facility] Address 75 [facility] 7t [place] [address] Care Team Providers Care Md Urologist Name Role Phone Gemini Chavez MD Primary Care Provide r Reason for Visit * Reason Comments Med Refill Encounter Details Date Type Department Care Team (Late st Contact Info) Description 06/21/2022 Refill [facility] MEDICINE 230 [place], [place] [phone] Marsha Menjivar MD 230 [place], [place] [phone] Chronic systolic heart failure (CMS/HCC) Social History [...] Description 07/22/2024 11:00 AM EDT Office Visit [facility] MEDICINE 230 [place] [address] Gemini Chavez MD 230 [place] [address] documented as of this encounter Visit Diagnoses Diagnosis Chronic systolic heart failure (CMS/HCC) Chronic systolic heart failure documented in this encounter Additional Health Concerns Assessment Noted Time PHQ-9 Depression Total Score: 6 05/16/19 23 1:42 PM EST documented as of this encounter Care Teams Md Urologist Relationship Specialty Start Date End Date Gemini Chavez MD 230 [place] [address] PCP - General Family Medicine 01/21/18 [employer] 03/28/24 documented as of this encounter
--- OUTSIDE RECORDS SUMMARY | 2024-07-01 10:53 | XMS_ITS | Encounter Summary ---
Author Organization [employer] Address 75 [facility] 7t [place] [address] Care Team Providers Care Heel Sander Rubber Name Role Phone Gemini Chavez MD Primary Care Provide r Reason for Visit * Reason Onset Date Comments Prior Authorization 05/26/2024 [employer] CORONADO for Z epbound Encounter Details Date Type Department Care Team ([facility] st Contact Info) Description 05/26/2024 Telephone [facility] MEDICINE 230 [place] [address] Gemini Chavez MD 230 [place] [address] Prior Authorization (SUKH CORONADO for Zepbound) Social [...] Dorys Arauz - 06/01/2024 3:01 PM EST [facility] Caremark Form with clinical questions was comppleted and return via fax. Confirmation was received and forwarded for scanning. * Telephone Encounter - Elissa Ambrosio - 06/01/2024 1:38 PM EST Tc from pt stating received a letter on 05/24 indicating med was denied. Any questions [phone] ( estonian) * Telephone Encounter - Dorys Arauz - 05/26/2024 10:34 AM EST PA initiated on [employer]eds for Zepbound . Approval/denial pending. documented in this encounter Plan of Treatment Upcoming Encounters Date Type Department Care Team (Late st Contact Info) Description 07/22/2024 11:00 AM EDT Office Visit [facility] MEDICINE [address] [place] [address] Gemini Chavez MD 230 [place] [address] documented as of this encounter Visit Diagnoses Not on filedocumented in this encounter Additional Health Concerns Assessment Noted Time PHQ-9 Depression Total Score: 0 09/03/19 9:55 AM EDT documented as of this encounter Care Teams Heel Sander Rubber Relationship Specialty Start Date End Date Gemini Chavez MD 230 [place] [address] PCP - General Family Medicine 01/21/18 [employer] 03/28/24 documented as of this encounter
--- OUTSIDE RECORDS SUMMARY | 2024-07-01 10:53 | XMS_ITS ---
Author Organization [facility] Address [address] [place] [address] Care Team Providers Care Flat Ironer Name Role Phone Gemini Fisher M.D. Primary Care Provider Larry Angeles Jr Unavailable Katherine FORTE, Cipriano Unavailable Unavailable REASON FOR VISIT dysphagia PROBLEMS Problem Type ICD Code Onset Dates Problem Status W/U Status Risk SNOMED Code Notes Problem Dysphagia (R13.10) Active confirmed Dysphagia (71777833) Encounters Encounter Location Date Provider Diagnosis [facility] Out[facility] [address] [place], [place] [phone] 04/01/2023 Larry Carnes Jr Dysphagia R13.10 and Abn findings-GI tract R93.3 ASSESSMENTS Encounter Date Diagnosis Assessment Notes Treatment Notes Treatment Clinical Notes 04/01/2023 Dysphagia (ICD-10 - R13.10) 04/01/2023 Abn findings-GI tract (ICD-10 - R93.3) PLAN OF TREATMENT No Information
--- OUTSIDE RECORDS SUMMARY | 2024-07-01 10:54 | XMS_ITS | Encounter Summary ---
Author Organization [employer] [facility] Address 75 [facility] 7t [place] [address] Care Team Providers Care Metal Tube Cutter Name Role Phone Gemini Chavez MD Primary Care Provide r Reason for Visit * Reason Comments Med Change Request Encounter Details Date Type Department Care Team (Late st Contact Info) Description 01/08/2023 Refill [facility] MEDICINE 230 [place], [place] [phone] Marsha Menjivar MD 230 [place], [place] [phone] Chronic obstructive pulmonary disease, unspecified COPD type [...] generated for Nebulizer signed and faxed to [facility]. documented in this encounter Plan of Treatment Upcoming Encounters Date Type Department Care Team (Late st Contact Info) Description 07/22/2024 11:00 AM EDT Office Visit [facility] MEDICINE 230 [place] [address] Gemini Chavez MD 230 [place] [address] documented as of this encounter Visit Diagnoses Diagnosis Chronic obstructive pulmonary disease, unspecified COPD type (CMS/HCC) documented in this encounter Additional Health Concerns Assessment Noted Time PHQ-9 Depression Total Score: 6 05/16/19 23 1:42 PM EST documented as of this encounter Care Teams Metal Tube Cutter Relationship Specialty Start Date End Date Gemini Chavez MD 230 [place] [address] PCP - General Family Medicine 01/21/18 [employer] 03/28/24 documented as of this encounter
--- OUTSIDE RECORDS SUMMARY | 2024-07-01 10:54 | XMS_ITS | Patient Health Record ---
Author Organization [facility] Address [address] [place] [address] Care Team Providers Care Metal Pourer Name Role Phone Gemini Fisher M.D. Primary Care Provider Larry Angeles Jr Unavailable [phone] Katherine FORTE, Cipriano Unavailable Unavailable ALLERGIES No Known Allergies REASON FOR REFERRAL No Information MEDICATIONS Medication SIG (Take, Route, Frequency, Duration) Notes Start Date End Date Status Creon [id number] UNIT TOME 2 C PSULAS POR V A ORAL 4 TIMES A DAY FOR 30 DAYS ADMINISTER WITH MEALS AND/OR SNACKS Oral for 30 Active Simethicone Ultra Strength 1 80 MG Oral for 30 Active Flovent HFA 220 MCG/ACT Inhalation for 60 Active Furosemide 40 MG Oral for 90 A ctive Acetaminophen Extra Strength 500 MG TOME FAUSTINA TABLETA POR V A ORAL CADA SEIS HORAS CUANDO SEA NECESARIO MAX 8 TABS DAILY Oral for 5 Active Rosuvastatin Calcium 40 MG Oral for 90 Active Vitamin E 45 MG (100 UNIT) Oral for 30 Active Albuterol Sulfate (2.5 MG/3M L) 0.083% Inhalation for 17 Active Metoprolol Succinate ER 200 MG TOME FAUSTINA TABLETA POR V A ORAL TODOS LOS D Oral for 90 Active Lisinopril 40 MG Oral for 90 A ctive Vitamin D3 50 MCG (2000 UT) TOME FAUSTINA TAB FRAN TODOS LOS D Oral for 90 Active Levothyroxine Sodium 100 MCG Oral for 90 Active Zolpidem Tartrate 10 MG Oral for 30 Active Loratadine 10 MG TOME FAUSTINA TABLETA POR VIA ORAL TODOS LOS LANDER[place] CUANDO SEA NECESARIO FOR ALLERGIES Oral for 90 Active hydroCHLOROthiazide 12.5 MG TOME FAUSTINA TAB FRAN TODOS LOS D Oral for 90 Active Meclizine HCl 25 MG PLEASE SEE ATTACHED FOR DETAILED DIRECTIONS Oral for 10 Active Pantoprazole Sodium 40 MG TOME FAUSTINA TABLE TA TODOS LOS D Oral for 90 Active clonazePAM 1 MG TOME FAUSTINA TABLETA DOS VECES AL D A CUANDO SEA NECESARIO Oral for 30 Active Incruse Ellipta 62.5 MCG/ACT INHALE 1 PU FF BY MOUTH EVERY DAY AT THE SAME TIME EACH DAY Inhalation for 30 Active SOCIAL HISTORY Tobacco Use: Social History Observation Description Date Details (start date - stop date) Never Smoker NA - NA Sex Assigned At : Social History Observation Description Sex Assigned At Unknown Tobacco Use/Smoking Question Answer Notes Patient is a nonsmoker Alcohol Screen Question Answer Notes Did you have a drink containing alcohol in the p ast year? No Points 0 Interpretation Negative PROBLEMS Problem Type ICD Code Onset Dates Problem Status W/U Status Risk SNOMED Code Notes Problem Dysphagia, unspecified type (R13.10) Active confirmed 60977960 Problem Abnormal barium swallow (R93.3) Active confirmed 487618213 Problem Gastroesophageal reflux disease, unspecified whether esophagitis present (K21.9) Active confirmed 733984710 Problem Presbyesophagus (K22.89) Active confirmed 503942731 Problem Dysphagia (R13.10) Active confirmed Dys phagia (38477965) PLAN OF TREATMENT Future Test Test Name Order Date UPPER GI ENDOSCOPY 03/13/2023 Insurance Providers Payer Name Payer Address Payer Phone Subscriber Number Group Number Insured Name Patient Relationship to Insured Coverage Start Date Coverage End Date [facility] [address] Attn Claims CLIFF Perez [id number] KOBE DAILY Self - patient is the insured MEDICAL (GENERAL) HISTORY Medical History History ICD Code CE/COPD hypertension Fatty liver pulmonary nodule Elevated BMI Atrial fibrillation Hypothyroidism Gastroesophageal reflux disease/dysphagi a Surgical History Surgery Date(Month/Year) Cataract surgery Umbilical hernia repair Tonsillectomy
--- OUTSIDE RECORDS SUMMARY | 2024-07-01 10:54 | XMS_ITS | Encounter Summary ---
Author Organization [employer] Address 75 [facility] 7t [place] [address] Care Team Providers Care Tool Setter Name Role Phone Gemini Chavez MD Primary Care Provide r Encounter Details Date Type Department Care Team (Late st Contact Info) Description 02/19/2023 Abstract [facility] MEDICINE 230 [place], [place] [phone] Gemini Chavez MD 230 [place], [place] [phone] Social History Tobacco Use Types Packs/Day Years Used Date Smoking Tobacco: Never Passive Smoke Exposure: Never Smokeless Tobacco: Never Alcohol Use Standard Drinks/Week Comments Never 0 (1 standard drink = 0.6 oz pur e alcohol) Depression Answer Date Recorded Patient Health Questionnaire-9 Score 6 05/16/2022 Housing Stability Answer Date Recorded What is your housing situation today? I have hubertjuarez doshi 02/18/[address] you [...] Office Visit [facility] MEDICINE [address] [place] [address] Gemini Chavez MD [address] [place] [address] documented as of this encounter Visit Diagnoses Not on filedocumented in this encounter Additional Health Concerns Assessment Noted Time PHQ-9 Depression Total Score: 6 05/16/19 23 1:42 PM EST documented as of this encounter Care Teams Tool Setter Relationship Specialty Start Date End Date Gemini Chavez MD 230 [place] [address] PCP - General Family Medicine 01/21/18 [employer] 03/28/24 documented as of this encounter
--- OUTSIDE RECORDS SUMMARY | 2024-07-01 10:54 | XMS_ITS | Encounter Summary ---
Author Organization [employer] [facility] Address 75 [facility] 7t [place] [address] Care Team Providers Care Pressure Tester Operator Name Role Phone Gemini Chavez MD Primary Care Provide r Reason for Visit * Reason Comments Med Refill Encounter Details Date Type Department Care Team (Late st Contact Info) Description 10/07/2022 Refill [facility] MEDICINE [address] [place] [address] [phone] Gemini Chavez MD 230 [place], [place] [phone] Chronic systolic heart failure (CMS/HCC) Social History [...] Description 07/22/2024 11:00 AM EDT Office Visit [facility] MEDICINE [address] [place] [address] [phone] Gemini Chavez MD 230 [place], [place] [phone] documented as of this encounter Visit Diagnoses Diagnosis Chronic systolic heart failure (CMS/HCC) Chronic systolic heart failure documented in this encounter Additional Health Concerns Assessment Noted Time PHQ-9 Depression Total Score: 6 05/16/19 23 1:42 PM EST documented as of this encounter Care Teams Pressure Tester Operator Relationship Specialty Start Date End Date Gemini Chavez MD 230 [place] [address] PCP - General Family Medicine 01/21/18 [employer] 03/28/24 documented as of this encounter
--- OUTSIDE RECORDS SUMMARY | 2024-07-01 10:54 | XMS_ITS | Clinical Summary ---
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 ADMINISTER WITH MEALS AND/OR SNACKS 2022 Active Fluticasone-Salmetero l 250-50 MCG/ACT aerosol powder Inhale 1 puff 2 times daily. 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 Preop examination 02/13/2023 Assessment & Plan [...] ideally next day of procedure--I called his asphalt layer-Dr Ely's # [phone] office and spoke w CLIFF rodriguez with [...] Encounters Date Type Department Care Team Description 06/18/2024 Orders Only [facility] [address] [place] [address] Gemini Chavez MD 06/16/2024 Orders Only [facility] External Provider, [facility] 06/10/2024 Telephone [facility] [address] [place] [address] Gemini Chavez MD Prior Authorization 06/09/2024 Refill [facility] [address] [place] [address] Gemini Ochoa MD Primary hypertension 06/03/2024 Refill [facility] [address] [place] [address] Gemini Chavez MD 05/26/2024 Telephone [facility] [address], [place] [phone] Gemini Chavez MD Prior Authorization ([facility] for [facility]ep[facility]) 05/14/2024 Refill [facility] [address], [place] [phone] Gemini Chavez MD Class 1 obesity due to excess calories with serious comorbidity and body mass index (BMI) of 33.0 to 33.9 in adult 05/11/2024 Orders Only [facility] External Provider, [facility] 05/11/2024 Telephone [facility] [address] [place] [address] Gemini Chavez MD medication denied 05/10/2024 Orders Only [facility] [address] [place] [address] Gemini Chavez MD Stage 3 chronic kidney disease, unspecified whether stage 3a or 3b CKD ([facility]/HCC) (Primary Dx); Class 2 severe obesity due to excess calories with serious comorbidity and body mass index (BMI) of 38.0 to 38.9 in adult ([facility]) 05/08/2024 Refill [facility] [address] [place] [address] Gemini Chavez MD Class 1 obesity due to excess calories with serious comorbidity and body mass index (BMI) of 33.0 to 33.9 in adult 05/04/2024 Orders Only GENERIC EXTERNAL DATA DEPARTMENT Provider, Generic External Data 05/03/2024 Orders Only GENERIC EXTERNAL DATA DEPARTMENT Provider, Generic External Data 04/30/2024 Telephone [facility] [address] [place] [phone] Gemini Chavez MD FYI 04/27/2024 Telephone [facility] [address] [place] [address] Gemini Chavez MD Nurse Triage; Follow up InStead visit 04/27/24 04/27/2024 Telephone [facility] [address] [place] [address] Gemini Chavez MD FYI 04/22/2024 Orders Only [facility] [address] [place] [address] Gemini Chavez MD Viral upper respiratory tract infection (Primary Dx) 04/22/2024 Telephone [facility] [address] [place] [address] Gemini Chavez MD Medication Question 04/21/2024 Telephone [facility] [address] [place] [address] Gemini Chavez MD Fyi 04/20/2024 Telephone [facility] [address] [place] [address] Christy Diaz RN URI s/s 04/16/2024 10:45 AM EST Office Visit [facility] [address] [place] [phone] Gemini Chavez MD Stage 3 chronic kidney disease, unspecified whether stage 3a or 3b CKD (CMS/HCC) (Primary Dx); Prediabetes; Primary hypertension 04/16/2024 Telephone [facility] [address] [place] [phone] Roxy Haley RN Med Refill (Wegovy notification) 04/16/2024 Travel 04/13/2024 Refill [facility] [address] [place] [phone] Gemini Chavez MD 04/12/2024 Refill [facility] [address] [place] [phone] Gemini Chavez MD Class 1 obesity due to excess calories with serious comorbidity and body mass index (BMI) of 33.0 to 33.9 in adult 04/01/2024 Refill [facility] [address] [place] [address] Gemini Chavez MD Acquired hypothyroidism 03/31/2024 Telephone [facility] [address] [place] [phone] Gemini Chavez MD order from Last 3 Months Immunizations Name Administration [...] EDT Office Visit [facility] [address] [place] [address] Gemini Chavez MD [address] [place] [address] Health Maintenance Due Date Last Done Comments CT Colonography 1955 Colonoscopy 1955 Colorectal Cancer Screening 1955 FIT DNA/Cologuard 1955 FIT 1955 FOBT 1955 Sigmoidoscopy 1955 Alcohol/Substance Use Screening 1967 Hepatitis A Vaccines (1 of 2 - Risk 2-dose series) 11/18/1974 Zoster Vaccines (1 of 2) 11/18/2005 Hepatitis B Vaccines (1 of 3 - Risk 3-dose series) 2015 Depression Screening 09/02/2024 09/03/2023, 09/03/19 24 SDOH Screening 10/30/2024 10/31/2023 Diabetes: Hemoglobin A1C [...] Procedure Name Priority Date/Time Associated Diagnosis Comments XR SHOULDER 2+ VIEWS LEFT Routine 06/16/2024 12:45 PM EST HIGH SENSITIVITY TROPONIN I Routine 06/16/2024 11:[address] HEAD WO CONTRAST Routine 06/16/2024 9 :18 AM EST HIGH SENSITIVITY TROPONIN I Routine 06/16/2024 9:16 AM EST B TYPE NATRIURETIC PEPTIDE (BNP) Routine 06/16/2024 9:16 AM EST LIPASE Routine 06/16/2024 9:16 AM EST BASIC METABOLIC PANEL Routine 06/16/2024 9:16 AM EST HEPATIC FUNCTION PANEL Routine 9:16 AM EST PROTHROMBIN TIME-INR Routine 06/16/2024 9:16 AM EST CBC WITH AUTO DIFFERENTIAL Routine 06/16/2024 9:16 AM EST SARS COV2/INFLUENZA A/B AND RSV RNA QL NAAT Routine 06/16/2024 9:[address] CERVICAL SPINE WO CONTRAST Routine 06/16/2024 9:08 AM EST XR CHEST 1 VIEW Routine 06/16/2024 8:45 AM EST US RENAL BI Routine 05/11/2024 6:41 PM [...] stage 3a or 3b CKD (CMS/HCC) Prediabetes POCT GLYCATED HEMOGLOBIN, TOTAL Routine 11/11/2023 11:12 AM EDT Prediabetes HEPATITIS C ANTIBODY REFLEX Routine 12/13/2022 8:21 AM EDT from Last 3 Months or Most Recently Relevant to Health Maintenance Results * XR Shoulder 2+ Views Left (06/16/2024 12:45 PM EST) Anatomical Region Laterality Modality Upper Extremities, Shoulder Left Radi ographic Imaging 06/16/2024 12:4 5 PM EST Narrative 06/16/2024 1:02 PM EST ? [facility] ?[address] ?[place] [address] ?XRay Report ? Signed ? Patient: Min Rees ?MR#: ?? [id number] ? : 1955 ?Acct:[id number] ? Age/Sex: 68 / M ?ADM Date: 06/16/24 ? Loc: HO.ED ? Attending Dr: ? Ordering Physician: Sarah Beth Quinonez ?? Date of Service: 06/16/24 ?? Procedure(s): XR shoulder LT min 2V ?? Accession Number(s): [id number] ? cc: Gemini Chavez MD; Sarah Beth Quinonez ? EXAMINATION: ?? XR SHOULDER, LEFT ? CLINICAL INFORMATION: ?? pain, trauma ? COMPARISON: ?? None available. ? TECHNIQUE: ?? AP external rotation, Grashey, scapular Y, and axillary views of the ?? left shoulder. ? FINDINGS: ?? Mild loss of glenohumeral and AC joint space without bony erosive ?? changes, loose body or periarticular spurring. No acute fracture or ?? dislocation seen no soft tissue calcification or soft tissue swelling. ? XR/XR shoulder LT min 2V ?? IMPRESSION: ?? Mild early degenerative changes left shoulder joint. No acute fracture ?? or dislocation. ? Electronically signed by: ??Chacorta Noland MD ??06/16/2024 12:59 PM EST RP ? Dictated By: ?Nuzhat,Chacorta S MD ? Signed By: ?<Electronically signed by Chacorta S Nuzhat, MD in OV> ?06/16/241258 ? DD/ 1245 ? TD/TT: 06/16/24 1250 ? Powder Coat Painter: CJ ? Procedure Note Donotuseinterpreter, Image - 06/16/[address] [address] XRay Report Signed Patient: Min ReesMR#: [id number] : 6Acct:[id number] Age/Sex: 68 / MADM Date: 06/16/24 Loc: HO.ED Attending Dr: Ordering Physician: Sarah Beth Quinonez Date of Service: 06/16/24 Procedure(s): XR shoulder LT min 2V Accession Number(s): [id number] cc: Gemini Chavez MD; Sarah Beth Quinonez EXAMINATION: XR SHOULDER, LEFT CLINICAL INFORMATION: pain, trauma COMPARISON: None available. TECHNIQUE: AP external rotation, Grashey, scapular Y, and axillary views of the left shoulder. FINDINGS: Mild loss of glenohumeral and AC joint space without bony erosive changes, loose body or periarticular spurring. No acute fracture or dislocation seen no soft tissue calcification or soft tissue swelling. XR/XR shoulder LT min 2V IMPRESSION: Mild early degenerative changes left shoulder joint. No acute fracture or dislocation. Electronically signed by: Chacorta Noland MD 06/16/2024 12:59 PM EST Dictated By: Chacorta Noland MD Signed By: <Electronically signed by Chacorta Noland MD in OV> 06/16/24 1259 DD/ 1245 TD/TT: 06/16/24 1250 Powder Coat Painter: CJ us [facility] External Provider IMG XR PROCEDURES Edited Result - Final * High Sensitivity Troponin I (06/16/2024 11:38 AM EST) Only the most recent of2 resultswithin the time period is included. TROPONIN I HIGH SENSITIVITY 3.4 <3.5 - 35.0 ng/L [facility] Comment:The [place] high sens itivity Troponin-I results should beused in conjunction with other diagnostic information suchas ECG, clinical observations and information, and patientsymptoms to aid in the diagnosis of [place]. 06/16/2024 11:3 8 AM EST 06/16/2024 11:41 AM EST us Generic External Data Provider LAB BLOOD ORDERAB LES Final Result [facility] [address] [place] [address] [phone] * CT Head w/o Contrast (06/16/2024 9:18 AM EST) Anatomical Region Laterality Modality Head, Neck Computed Tomogra phy 06/16/2024 9:18 AM EST Narrative 06/16/2024 9:52 AM EST ? [facility] ?[address] ?[place] [address] ? CT Scan Report ? Signed ? Patient: Min eRes ?MR#: ?? [id number] ? : 1955 ?Acct:[id number] ? Age/Sex: 68 / M ?ADM Date: 06/16/24 ? Loc: HO.ED ? Attending Dr: ? Ordering Physician: Ysabel Benton NP ?? Date of Service: 06/16/24 ?? Procedure(s): CT head/brain wo IV con ?? Accession Number(s): [id number] ? cc: Gemini Chavez MD; Ysabel Benton NP ? Report Number: ?? [id number]: Total DLP = ??793.00 mGy-cm ?? EXAMINATION: ?? CT HEAD WITHOUT CONTRAST ? CLINICAL INFORMATION: ?? Fall with head strike. Blood thinners. ? COMPARISON: ?? Numerous priors, most recently 03/20/2024. ? TECHNIQUE: ?? Contiguous axial imaging was [...] ?? *Use of iterative reconstruction technique ? FINDINGS: ?? There is no evidence of intracranial hemorrhage or extra-axial fluid ?? collection. ?? There is no mass effect, or edema. No CT evidence of acute territorial ?? infarct. ?? Ventricles, sulci, and cisterns are normal in size and configuration ?? for patient age. No hydrocephalus. No midline shift. ? No significant white matter abnormalities. ?? Empty sella noted. ?? Mild atheromatous calcification of the bilateral carotid siphons and V4 ?? segments vertebral arteries bilaterally. ? Globes and orbital contents image normally. ?? No extracranial soft tissue abnormalities. ? Mild mucoperiosteal thickening throughout the ethmoid and bilateral ?? maxillary sinuses. ?? The remainder of the paranasal sinuses, mastoid air cells, and tympanic ?? cavities are normally aerated. ?? No suspicious bony abnormalities. No fractures evident. ? CT/CT head/brain wo IV con ?? IMPRESSION: ?? No acute intracranial abnormality. No fracture evident. ? Electronically signed by: ??Bladimir Doherty MD ??06/16/2024 09:49 AM EST RP ? Dictated By: ?Bladimir Doherty MD ? Signed By: ?<Electronically signed by Bladimir Doherty MD in OV> ?06/16/24 0949 ? DD/ 0918 ? TD/TT: 06/16/24 0944 ? Powder Coat Painter: ? Procedure Note Tam, Jeancarlos - 06/16/[address] [address] [address] Scan Report Signed Patient: Min Rees#: [id number] : 6Acct:[id number] Age/Sex: 68 / MADM Date: 06/16/24 Loc: HO.ED Attending Dr: Ordering Physician: Ysabel Benton NP Date of Service: 06/16/24 Procedure(s): CT head/brain wo IV con Accession Number(s): [id number] cc: Gemini Chavez MD; Ysabel Benton AUTOMATIC TIRE TESTER Report Number: [id number]: Total DLP = 793.00 mGy-cm EXAMINATION: CT HEAD WITHOUT CONTRAST CLINICAL INFORMATION: Fall with head strike. Blood thinners. COMPARISON: Numerous priors, most recently 03/20/2024. TECHNIQUE: Contiguous axial imaging was performed from [...] or head) *Use of iterative reconstruction technique FINDINGS: There is no evidence of intracranial hemorrhage or extra-axial fluid collection. There is no mass effect, or edema. No CT evidence of acute territorial infarct. Ventricles, sulci, and cisterns are normal in size and configuration for patient age. No hydrocephalus. No midline shift. No significant white matter abnormalities. Empty sella noted. Mild atheromatous calcification of the bilateral carotid siphons and V4 segments vertebral arteries bilaterally. Globes and orbital contents image normally. No extracranial soft tissue abnormalities. Mild mucoperiosteal thickening throughout the ethmoid and bilateral maxillary sinuses. The remainder of the paranasal sinuses, mastoid air cells, and tympanic cavities are normally aerated. No suspicious bony abnormalities. No fractures evident. CT/CT head/brain wo IV con IMPRESSION: No acute intracranial abnormality. No fracture evident. Electronically signed by: Bladimir Doherty MD 06/16/2024 09:49 AM [facility] Dictated By: Bladimir Doherty MD Signed By: <Electronically signed by Bladimir Doherty MD in OV> 06/16/2449 DD/ 7 TD/TT: 06/16/24943 Powder Coat Painter: [facility] External Provider IMG CT PROCEDURES Edited Result - Final * SARS-CoV-2 RNA, Influenza A/B, and RSV RNA, Ql NAAT (06/16/2024 9:16 AM EST) Pathologist [facility] Influenza A PCR NEGATIVE Negative [facility] Influenza B PCR NEGATIVE Negative [facility] Resp Syncy Virus RNA Qual PCR NEGATIVE Negative [facility] SARS COV2 PCR NEGATIVE Negative [facility] Comment:All test results mus t be correlated with clinical findings.Negative results do not preclude SARS-CoV2, influenza Avirus, influenza B virus and/or RSV infectionand should not be used as the sole basis for treatment orother patient management decisions. Negative results must becombined with clinical observations, patient history, andepidemiological information.This test has not been evaluated for monitoring treatment ofinfection.This test has been authorized by the FDA under an EmergencyUse Authorization (EUA) for use by authorized laboratories.Testing performed on the [employer] GeneXpert utilizingreal-time RT-PCR.All SARS CoV2 and positive influenza A/B results arereported to [facility]. 06/16/2024 9:16 AM EST 06/16/2024 9:21 AM EST us Generic External Data Provider LAB MICROBIOLOGY - GENERAL ORDERABLES Final Result [facility] [address] [place] [phone] * (ABNORMAL) CBC auto differential (06/16/2024 9:16 AM EST) Pathologist [facility] White Blood Count 6.8 4.8 - 10.8 X10*3/uL [facility] Red Blood Count 3.61(L) 4.60 - 5.80 X10*6/uL [facility] Hemoglobin 11.5(L) 14.0 - 18.0 g/dl [facility] Hematocrit 33.3(L) 42.0 - 52.0 % [facility] Mean Corpuscular Volume 92.2 80.0 - 98.0 fL [facility] Mean Corpuscular Hemoglobin 31.9 27.0 - 33.0 pg [facility] Mean Corpuscular HGB Conc 34.5 31.0 - 36.0 g/dl [facility] Red Cell Distribution Width 12.0 11.0 - 16.0 % [facility] Platelet Count 173 160 - 400 X10*3/uL [facility] Mean Platelet Volume 10.1 9.4 - 12.4 fL [facility] Neutrophils Percent Auto 73.8(H) 45 - 73 % [facility] Imm Gran Pct Auto 0.3 0.0 - 0.4 % [facility] Lymphocytes Percent Auto 14.9(L) 20 - 40 % [facility] Monocytes Percent Auto 10.3 2 - 11 % [facility] Eosinophils Percent Auto 0.4 0 - 4 % [facility] Basophils Percent Auto 0.3 0 - 2 % [facility] NRBC Pct Auto 0.0 0.0 - 0.2 /100WBC [facility] Neutrophils Absolute Auto 5.0 2.0 - 8.3 x10*3/uL [facility] Imm Gran Abs Auto 0.02 0.00 - 0.03 X10*3/uL [facility] Lymphocytes Absolute Auto 1.0(L) 1.2 - 4.9 X10*3/uL [facility] Monocytes Absolute Auto 0.7 0.1 - 1.2 X10*3/uL [facility] Eosinophils Absolute Auto 0.0 0.0 - 0.4 X10*3/uL [facility] Basophils Absolute Auto 0.0 0.0 - 0.2 X10*3/uL [facility] NRBC Abs Auto 0.000 0.0 - 0.012 X10*3/uL [facility] 06/16/2024 9:16 AM EST 06/16/2024 9:21 AM EST us Generic External Data Provider LAB BLOOD ORDERAB LES Final Result [facility] [address] [place] [phone] * (ABNORMAL) Prothrombin Time-INR (06/16/2024 9:16 AM EST) [facility] Prothrombin Time 15.5(H) 10.9 - 12.4 SEC [facility] INTERNATIONAL NORM RATIO 1.3(H) 0.9 - 1.1 [facility] Comment:INTERNATIONAL NORMAL IZED RATIO (INR) REFERENCE RANGES Reference RangeFor patients not on anticoagulant therapy: 0.9 - 1.1INR ranges for oral anticoagulanttherapy:For prevention and treatment of venous thrombosis and pulmonary embolism: 2.0 - 3.0For acute myocardial infarction with aspirin therapy: 2.0 - 3.0For acute myocardial infarction without aspirin therapy: 3.0 - 4.0For patients with mechanical prosthetic heart valves: 2.5 - 3.5 06/16/2024 9:16 AM EST 06/16/2024 9:21 AM EST Generic External Data Provider LAB BLOOD ORDERAB LES Final Result Performing Organization Address [facility] de Phone Number [facility] [address] [place] [phone] * (ABNORMAL) B Type Natriuretic Peptide (BNP) (06/16/2024 9:16 AM EST) [facility] B Type Natriuretic Peptide 238(H) <100 pg/mL [facility] Comment:For those patients w ho are being treated with Natrecor(nesiritide, recombinant BNP), BNP testing should beperformed at least two hours post treatment in order toensure that only endogenous levels of BNP are detected. 06/16/2024 9:16 AM EST 06/16/2024 9:21 AM EST Generic External Data Provider LAB BLOOD ORDERAB LES Final Result Performing Organization Address [facility] de Phone Number [facility] [address] [place] [phone] * Lipase (06/16/2024 9:16 AM EST) [facility] Lipase 52 8 - 78 U/L [facility] 06/16/2024 9:16 AM EST 06/16/2024 9:21 AM EST Generic External Data Provider LAB BLOOD ORDERAB LES Final Result Performing Organization Address [facility] de Phone Number [facility] [address] [place] [phone] * Hepatic Function Panel (06/16/2024 9:16 AM EST) Bilirubin, Total 0.8 0.0 - 1.0 mg/dL [facility] Bilirubin, Direct 0.3 0.0 - 0.5 mg/dL [facility] Aspartate Amino Transferase 22 5 - 37 U/L [facility] Alanine Aminotransferase 18 0 - 40 U/L [facility] Total Protein 6.5 6.5 - 8.0 g/dL [facility] Albumin Level 3.8 3.5 - 5.0 g/dL [facility] Alkaline Phosphatase 43 39 - 117 U/L [facility] 06/16/2024 9:16 AM EST 06/16/2024 9:21 AM EST Generic External Data Provider LAB BLOOD ORDERAB LES Final Result Performing Organization Address [facility] Phone Number [facility] [address] [place] [phone] * (ABNORMAL) Basic Metabolic Panel (06/16/2024 9:16 AM EST) Only the most recent of2 resultswithin the time period is included. Sodium 141 135 - 145 mmol/L [facility] Potassium 3.5 3.3 - 5.1 mmol/L [facility] Chloride 109(H) 96 - 108 mmol/L [facility] Carbon Dioxide 26 22 - 29 mmol/L [facility] Anion Gap 10(L) 12 - 20 [facility] Urea Nitrogen (BUN) 12 9 - 16 mg/dL [facility] Creatinine, Serum 1.10 0.5 - 1.4 mg/dL [facility] Creatinine Clr Calc Pharmacy 68.0 [facility] Comment:eGFR (calculated fro m the MDRD study equation) and eCrCl(calculated from the Cockcroft-Gault equation) are based ondifferent parameters and may not yield comparable results.If eCrCl result is absurd, please check patient'sheight/weight. Estimated Glomerular Filt Rate >60 [facility] Comment:Chronic Kidney Disea se: Estimated GFR < 60 mL/min/1.14n0Rwmudl Kidney Disease: Estimated GFR < 15 mL/min/1.73m2 Glucose 140(H) 60 - 115 mg/dL [facility] Calcium 8.7 8.4 - 10.2 mg/dL [facility] 06/16/2024 9:16 AM EST 06/16/2024 9:21 AM EST us Generic External Data Provider LAB BLOOD ORDERAB LES Final Result [facility] [address] [place] [address] [phone] * CT Cervical Spine w/o Contrast (06/16/2024 9:08 AM EST) Anatomical Region Laterality Modality Spine, C-spine Computed Tomogra phy 06/16/2024 9:0 8 AM EST Narrative 06/16/2024 9:58 AM EST ? [facility] ?[address] ?[place] [address] ? CT Scan Report ? Signed ? Patient: Min Rees ?MR#: ?? [id number] ? : 1955 ?Acct:[id number] ? Age/Sex: 68 / M ?ADM Date: 02/05/25 ? Loc: HO.ED ? Attending Dr: ? Ordering Physician: Ysabel Benton NP ?? Date of Service: 06/16/24 ?? Procedure(s): CT cervical spine wo IV con ?? Accession Number(s): [id number] ? cc: Gemini Chavez MD; Ysabel Benton NP ? Report Number: ?? [id number]: Total DLP = ??436.00 mGy-cm ?? EXAMINATION: ?? CT CERVICAL SPINE WITHOUT CONTRAST ? CLINICAL INFORMATION: ?? Fall, head strike; neck pain. ? COMPARISON: ?? 06/19/2023. ? TECHNIQUE: ?? Spiral CT examination of the cervical spine performed in axial plane, ?? without IV contrast. Sagittal, coronal, and thin section axial ?? reformatted images were constructed from the axial data set. ? This CT examination was performed using dose optimization techniques as ?? appropriate, variously including the following: ?? *Automated exposure control ?? *Adjustment of mA and/or kV according to patient size (this includes ?? techniques or standardized protocols for targeted exams where dose is ?? matched to indication/reason for exam; i.e. extremities or head) ?? *Use of iterative reconstruction technique ? FINDINGS: ?? There is moderate motion degradation in the superior aspect of the ?? cervical region, limiting sensitivity. ?? There is a mild levoconvex scoliosis, centered at C5. Straightening of ?? the normal lordosis, nonspecific. ?? Within confines of motion, no discrete fracture, compression deformity, ?? traumatic subluxation, or suspicious bone lesion. ?? Normal sagittal alignment without subluxation. ?? There is a small bone island within the spinous process of C4. ?? Severe disc degeneration focally at C3-4, with sclerosis of the ?? endplates and spurring. ? Normal facet alignment. Hypertrophic degenerative facet changes, ?? significant at C2-3 on the left. ?? Uncinate spurring right greater than left, C3-4. ? Grossly no canal stenosis given modality limitation. ?? C1-2 articulation and craniocervical junction are intact and aligned ?? allowing for motion artifact. ? No prevertebral soft tissue abnormalities. ?? Heavy calcification of the left greater than right carotid bulbs. ?? Normal thyroid. ?? Imaged lung apices clear. ? CT/CT cervical spine wo IV con ?? IMPRESSION: ?? 1. Somewhat limited exam due to motion as detailed. ?? 2. No CT evidence of acute cervical spine fracture or injury. ?? 3. Spondylosis as discussed, most significant at C2-3 and C3-4. ?? 4. Heavy left greater than right carotid bulb calcification. ?? 5. No significant interval change from 06/19/2023. ? Electronically signed by: ??Bladimir Doherty MD ??06/16/2024 09:56 AM EST RP ? Dictated By: ?Bladimir Doherty MD ? Signed By: ?<Electronically signed by Bladimir Doherty MD in OV> ?06/16/24 0956 ? DD/ 0908 ? TD/TT: 06/16/24 0944 ? Powder Coat Painter: ? Procedure Note Jeancarlos Turcios - 06/16/[address] [address] [address] Scan Report Signed Patient: Min ReesMR#: [id number] : 1955cct:[id number] Age/Sex: 68 / MADM Date: 06/16/24 Loc: HO.ED Attending Dr: Ordering Physician: Ysabel Benton NP Date of Service: 06/16/24 Procedure(s): CT cervical spine wo IV con Accession Number(s): [id number] cc: Gmeini Chavez MD; Ysabel Benton NP Report Number: [id number]: Total DLP = 436.00 mGy-cm EXAMINATION: CT CERVICAL SPINE WITHOUT CONTRAST CLINICAL INFORMATION: Fall, head strike; neck pain. COMPARISON: 06/19/2023. TECHNIQUE: Spiral CT examination of the cervical spine performed in axial plane, without IV contrast. Sagittal, coronal, and thin section axial reformatted images were constructed from the axial data set. This CT examination was performed using dose optimization techniques as appropriate, variously including the following: *Automated exposure control *Adjustment of mA and/or kV according to patient size (this includes techniques or standardized protocols for targeted exams where dose is matched to indication/reason for exam; i.e. extremities or head) *Use of iterative reconstruction technique FINDINGS: There is moderate motion degradation in the superior aspect of the cervical region, limiting sensitivity. There is a mild levoconvex scoliosis, centered at C5. Straightening of the normal lordosis, nonspecific. Within confines of motion, no discrete fracture, compression deformity, traumatic subluxation, or suspicious bone lesion. Normal sagittal alignment without subluxation. There is a small bone island within the spinous process of C4. Severe disc degeneration focally at C3-4, with sclerosis of the endplates and spurring. Normal facet alignment. Hypertrophic degenerative facet changes, significant at C2-3 on the left. Uncinate spurring right greater than left, C3-4. Grossly no canal stenosis given modality limitation. C1-2 articulation and craniocervical junction are intact and aligned allowing for motion artifact. No prevertebral soft tissue abnormalities. Heavy calcification of the left greater than right carotid bulbs. Normal thyroid. Imaged lung apices clear. CT/CT cervical spine wo IV con IMPRESSION: 1. Somewhat limited exam due to motion as detailed. 2. No CT evidence of acute cervical spine fracture or injury. 3. Spondylosis as discussed, most significant at C2-3 and C3-4. 4. Heavy left greater than right carotid bulb calcification. 5. No significant interval change from 06/19/2023. 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 [facility] ?[address] ?[place] [address] ?XRay Report ? Signed ? Patient: Davonte Cano,Min ?MR#: ?? [id number] ? : 1955 ?Acct:[id number] ? Age/Sex: 68 / M ?ADM Date: 02/05/25 ? Loc: HO.ED ? Attending Dr: ? Ordering Physician: Generic ED Physician ?? Date of Service: 06/16/24 ?? Procedure(s): XR chest 1V ?? Accession Number(s): [id number] ? cc: Gemini Chavez MD; Generic ED Physician ? EXAMINATION: ?? XR CHEST ? CLINICAL INFORMATION: ?? cough ? COMPARISON: ?? August 08, 2023. ? TECHNIQUE: ?? Frontal view of the chest was obtained. ? FINDINGS: ?? Prominence of the interstitial markings. ?? No pleural effusion or pneumothorax. No hyperinflation. ?? Cardiomediastinal silhouette demonstrates calcified plaque Arctic arch. ?? Multilevel thoracic spondylosis. Questionable old healed rib fracture ?? posterior aspect left seventh rib. ? XR/XR chest 1V ?? IMPRESSION: ?? Mild interstitial edema versus acute small airway inflammatory and/or ?? infectious disease. ? Electronically signed by: ??Valentin Resendiz MD ??06/16/2024 09:02 AM ?? EST RP ? Dictated By: ?Valentin Guzmna MD ? Signed By: ?<Electronically signed by Valentin Ruelas MD in OV> ? 06/16/24 0902 ? DD/ 0845 ? TD/TT: 06/16/24 0850 ? Powder Coat Painter: ? Procedure Note Tam, Image - 06/16/[address] [address] XRay Report Signed Patient: Min ReesMR#: [id number] : 6Acct:[id number] Age/Sex: 68 / MADM Date: 06/16/24 Loc: HO.ED Attending Dr: Ordering Physician: Generic ED Physician Date of Service: 06/16/24 Procedure(s): XR chest 1V Accession Number(s): [id number] cc: Gemini Chavez MD; Generic ED Physician EXAMINATION: XR CHEST CLINICAL INFORMATION: cough COMPARISON: August 08, 2023. TECHNIQUE: Frontal view of the chest was obtained. FINDINGS: Prominence of the interstitial markings. No pleural effusion or pneumothorax. No hyperinflation. Cardiomediastinal silhouette demonstrates calcified plaque Arctic arch. Multilevel thoracic spondylosis. Questionable old healed rib fracture posterior aspect left seventh rib. XR/XR chest 1V IMPRESSION: Mild interstitial edema versus acute small airway inflammatory and/or infectious disease. Electronically signed by: Valentin Resendiz MD 06/16/2024 09:02 AM EST RP Dictated By: Valentin Guzman MD Signed By: <Electronically signed by Valentin Ruelas MDin OV> 06/16/24 0902 DD/ 0845 TD/TT: 06/16/24 0850 Powder Coat Painter: [facility] External Provider IMG XR PROCEDURES Edited Result - Final * US RENAL BI (05/11/2024 6:41 PM EST) Anatomical Region Laterality Modality Abdomen Ultrasound 05/11/2024 6:41 PM EST Narrative 05/11/2024 6:43 PM EST ? [facility] ?[address] ?[place] [address] ? Ultrasound Report ? Signed ? Patient: Min Rees ?MR#: ?? [id number] ? : 1955 ?Acct:[id number] ? Age/Sex: 68 / M ?ADM Date: 05/11/24 ? Loc: HO.US ? Attending Dr: Claudio Allan MD ? Ordering Physician: Claudio Allan MD ?? Date of Service: 05/11/24 ?? Procedure(s): US renal BI ?? Accession Number(s): [id number] ? cc: Claudio Allan MD; Gemini Chavez [...] in OV> ? 05/11/24 1842 ? DD/ 40 ? TD/TT: 05/11/241840 ? Powder Coat Painter: ? Procedure Note Tam, Image - 05/11/2024 [place] [address] Ultrasound Report Signed Patient: Mini Rees#: [id number] : 1955cct:[id number] Age/Sex: 68 / MADM Date: 05/11/24 Loc: HO.US Attending Dr: Claudio Allan MD Ordering Physician: Claudio Allan MD Date of Service: 05/11/24 Procedure(s): US renal BI Accession Number(s): [id number] cc: Claudio Allan MD; Gemini Chavez MD [...] in OV> 05/11/241841 DD/ 40 TD/TT: 05/11/241840 Powder Coat Painter: [facility] External Provider IMG US PROCEDURES Edited Result - Final * (ABNORMAL) Urine Protein, Total, Random without Creatinine (05/04/2024 10:18 AM EST) Protein, Total, Random Urine 30(H) <12 mg/dL [facility] 05/04/2024 10:1 8 AM EST 05/04/2024 10:48 AM EST Generic External Data Provider LAB URINE ORDERAB LES Final Result Performing Organization Address City/[facility]/ZIP Co de Phone Number [facility] [address] [place] [phone] * Creatinine, Random Urine (05/04/2024 10:18 AM EST) Creatinine, Urine 306.08 mg/dL [facility] 05/04/2024 10:1 8 AM EST 05/04/2024 10:48 AM EST Generic External Data Provider LAB URINE ORDERAB LES Final Result Performing Organization Address [facility] Co de Phone Number [facility] [address] [place] [phone] * (ABNORMAL) Urinalysis Complete (05/04/2024 10:18 AM EST) Color Urine Dark Yellow [facility] Appearance Urine Clear [facility] PH 6.0 5.0 - 9.0 [facility] Glucose Urine UA Negative Negative mg/dL [facility] Urine Blood Negative Negative [facility] Specific [place] - Urine 1.025 1.005 - 1.025 [facility] Urine Protein 30 (1+)(A) Neg-Trace mg/dL [facility] Urine Ketones Trace Negative mg/dL [facility] Nitrite Urine Negative Negative [facility] Leukocyte Esterase Urine Small (1+)(A) Negative [facility] RBC Urine 0-2 0 - 2 /HPF [facility] Urine WBC 0-5 0 - 5 /HPF [facility] Urine Squamous Epithelial Cell 0-2 0 - 2 /HPF [facility] Urine Bacteria None Seen None Seen [facility] Hyaline Casts, Urine 6-10 0 - 2 /LPF [facility] 05/04/2024 10:1 8 AM EST 05/04/2024 10:48 AM EST us Generic External Data Provider LAB URINE ORDERAB LES Final Result [facility] [address] [place] [phone] * (ABNORMAL) Lipid Panel, Standard (05/03/2024 8:15 AM EST) Triglycerides 230(H) <150 mg/dL [facility] Comment:Desirable Triglyceri de: less than 150 mg/dLBorderline High Triglyceride 150-199 mg/dLHigh Triglyceride: 200-499 mg/dLVery High Triglyceride: greater than or equal to 5OO mg/dL Cholesterol 118 <200 mg/dL [facility] Comment:Desirable Cholestero l: less than 200 mg/dLBorderline High Cholesterol: 200-239 mg/dLHigh Cholesterol: greater than 239 mg/dL LDL Cholesterol Calculated 41 <100 mg/dL [facility] Comment:Desirable LDL: less than 100 mg/dLNear Optimal/Above Optimal LDL: 110- 129 mg/dLBorderline High LDL: 130-159 mg/dLHigh LDL: 160-189 mg/dLVery High LDL: greater than or equal to 190 mg/dL HDL Cholesterol 31(L) >40 mg/dL [facility] Comment:Desirable HDL: great er than 40 mg/dL Note: This HDL assay may give artificially low results in patients with liver disease. Blood Venous blood specimen / Unknown 05/03/2024 8:15 AM EST 05/03/2024 11:40 AM EST us Gemnii Chung MD LAB BLOOD ORDERABLES Final Result Performing Organization Address City/[facility]/ZIP Co de Phone Number [facility] [address] [place] [phone] * (ABNORMAL) Comprehensive Metabolic Panel (05/03/2024 8:15 AM EST) Sodium 142 135 - 145 mmol/L [facility] Potassium 4.0 3.3 - 5.1 mmol/L [facility] Chloride 104 96 - 108 mmol/L [facility] Carbon Dioxide 30(H) 22 - 29 mmol/L [facility] Anion Gap 12 12 - 20 [facility] Urea Nitrogen (BUN) 9 9 - 16 mg/dL [facility] Creatinine, Serum 1.17 0.5 - 1.4 mg/dL [facility] Estimated Glomerular Filt Rate >60 [facility] Comment:Chronic Kidney Disea se: Estimated GFR < 60 mL/min/[id number] Kidney Disease: Estimated GFR < 15 mL/min/1.73m2 Glucose 73 60 - 115 mg/dL [facility] Calcium 8.7 8.4 - 10.2 mg/dL [facility] Bilirubin, Total 0.8 0.0 - 1.0 mg/dL [facility] Aspartate Amino Transferase 25 5 - 37 U/L [facility] Alanine Aminotransferase 27 0 - 40 U/L [facility] Total Protein 6.7 6.5 - 8.0 g/dL [facility] Albumin Level 3.9 3.5 - 5.0 g/dL [facility] Alkaline Phosphatase 39 39 - 117 U/L [facility] 05/03/2024 8:15 AM EST 05/03/2024 11:40 AM EST us Generic External Data Provider LAB BLOOD ORDERAB LES Final Result Performing Organization Address City/[facility]/ZIP Co de Phone Number [facility] [address] [place] [phone] * (ABNORMAL) POCT HGB A1C (11/11/2023 11:12 AM EDT) Hemoglobin A1C 6.4(A) 4.0 - 6.0 % QC Media Lot # [id number] Lot# Expiration Date ,026 Blood 11/11/2023 11:1 2 AM EDT Gemini Chung MD POINT OF CARE TEST EN TER/EDIT ORDERABLES Final Result * Hepatitis C Antibody Reflex (12/13/2022 8:21 AM EDT) Hepatitis C Antibody Nonreactive Nonreactive [facility] Comment:Antibodies to HCV no t detected; does not exclude early acuteHCV infection. 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
--- OUTSIDE RECORDS SUMMARY | 2024-07-01 10:54 | XMS_ITS | Clinical Summary ---
Author Organization [facility] Address [address] [place] [phone] Phone Care Team Providers Care Activity Therapy Teacher Name Role Phone Gemini Chavez MD Primary Care Provide r Allergies No known active allergies Encounters Date Type Department Care Team Description 06/02/2024 1:45 PM EST Office Visit [facility] [address] [phone] Gallito Hancock DPM Ingrowing nail (Primary Dx); Type II diabetes mellitus with peripheral circulatory disorder (CMS/HCC) from Last 3 Months Social History Tobacco Use Types Packs/Day Years Used Date Smoking Tobacco: Never Assessed Sex and Gender Information Value Date Recorded Sex Assigned at Not on file Legal Sex Male 8:58 PM EST Gender Identity Not on file Sexual Orientation Not on file Last Filed Vital Signs [...] Description 09/01/2024 1:00 PM EDT Office Visit [facility] [address] [phone] Gallito Hancock DPM [address] [phone] Health Maintenance Due Date Last [...] patient's age to complete this topic Meningococcal B Vacine Aged Out No lo nger eligible based on patient's age to complete this topic RSV Immunization Patients Under 20 months Aged Out No longer eligible based on patient's age to complete this topic Varicella Vaccines Aged Out No longer eligible based on patient's age [place] [address] [employer] MED[employer] Member Subscriber Plan / Payer (Ef fective 2022-Present) Name:Min Rees Relation to Subscriber:Self Name:Min Rees Payer ID:[id number] Group ID:[id number] Type:Not on file Address: [place] [address] [place] [phone] Care Teams Activity Therapy Teacher Relationship Specialty Start Date End Date Gemini Chavez MD [address] [place] [phone] PCP - General 04/24/23
--- OUTSIDE RECORDS SUMMARY | 2024-07-01 10:54 | XMS_ITS | Data Portability ---
Author Organization [employer], [employer] Address [address] [place] [address] Care Team Providers Care Developmental Services Worker Name Role Phone TALIB MARTINEZZEDWIN RONALDO Primary Care Provider [phone] HIM CCA OTHER [facility] OTHER Assessment Encounter Date Assessment Date Assessment [...] assessment and plan as documented by the fitness coordinator. I provided real time medical direction for this encounter and was immediately available to provide additional phone based assistance as needed. History as noted by fitness coordinator. Pt with history of afib on apixaban, [...] be transported via 911 ambulance to the [facility] and I give a pt expect to the ED refrigerating engineer as well. [email or web address] Not available 03/20/2024 18:19:28 04/21/2024 04/21/2024 I provided real -time medical direction via phone for this encounter and was available for additional phone-based assistance as needed. I have reviewed and agree with the Assessment and Plan as documented by the Powder Loader. Patient given the opportunity to ask questions. [...] pressure. No change in functional status. Per fitness coordinator on the scene, vital signs are stable [...] Assessment and Plan as documented by the Powder Loader. We discussed the diagnostic uncertainty of home [...] to call 911- verbalized understanding of instruction Not available 04/27/2024 20:25:46 Plan of Treatment Reminders Order Date Submit Date Provider Last Modified By Organization Details Last Modified Time Details Appointments None recorded. Lab rapid SARS CoV 2 Ag, QL IA, respiratory specimen 2023 024 [email or web address] [facility], [address] [place] [address], [id number], 4 20:24:15 rapid flu (A+B) 2023 024 [email or web address] [facility] [address] [place] [address], [id number], 4 20:24:15 BMP, serum or plasma 2023 024 [email or web address] 0 [facility], [address] [place] [address], [id number], 4 20:24:15 rapid flu (A+B) 2023 024 [email or web address] [facility], [address] [place] [address], [id number], 4 10:38:31 rapid SARS CoV 2 Ag, QL IA, respiratory specimen 2023 024 [email or web address] Main - [facility], [address] [place] [address], [id number], 4 10:38:31 Referral None recorded. Procedures None recorded. Surgeries None recorded. Imaging electrocard iogram 2023 024 [email or web address] 0 Main - [facility], [address] [place] [address], [id number], 4 20:24:15 electrocard iogram 2023 024 [email or web address] Main - [facility], [address] [place] [address], [id number], 4 18:36:07 electrocard iogram 2023 024 [email or web address] Main - [facility], [address] [place] [address], [id number], 4 14:50:34 Medication Orders fluticasone propionate 50 mcg/actuati on nasal spray,suspe nsion 2023 024 [facility], [address] [place], [address], 4 12:56:56 Saline Nasal 0.65 % spray aerosol 2023 024 [facility], [address] [place], [address], 4 12:56:56 amoxicillin 500 mg capsule 2023 024 [facility], [address] [place], [address], 4 12:56:55 sodium chloride 0.9 % intravenous solution 2023 024 [email or web address] [facility], [address] [place], [address], 4 20:24:15 prednisone 20 mg tablet 2023 024 WERNER [facility], [address] [place], [address], 4 10:38:33 prednisone 20 mg tablet 2023 024 [email or web address] [facility], [address] [place], [address], 4 10:38:31 Patient TargetsNo targets recorded. Patient Instructions Encounter Date Encounter Id Patient Instructions Last Modified By Organization Details Last Modified Time 03/31/2024 [id number] orthostatic vitals* [email or web address] Not available 03/31/2024 18:21:41 Reason for Referral None Reported. Results Created Date Observation Date Name Description Value Unit Range Abnormal Flag Note LastModifiedBy Organization Detail LastModifiedTime 04/21/20 24 04/21/2024 rapid SARS CoV 2 Ag, QL IA, respi rator y speci men rapid SARS CoV 2 Ag, QL IA, respiratory specimen negati ve Not Available [facility] - [facility] [address] [place] [address], [id number], 04/21/2024 10:37:26 04/21/20 24 04/21/2024 rapid flu (A+B) Flu negati ve Not Available [facility] [address] [place] [address], [id number], 04/21/2024 10:37:25 04/27/20 24 04/27/2024 rapid flu (A+B) Flu negati ve Not Available [facility] [address] [place] [address], [id number], 04/27/2024 12:57:09 04/27/20 24 04/27/2024 rapid SARS CoV 2 Ag, QL IA, respi rator y speci men rapid SARS CoV 2 Ag, QL IA, respiratory specimen negati ve Not Available [facility] - [facility] [address] [place] [address], [id number], 04/27/2024 12:57:08 03/20/20 24 03/20/2024 elect rocar diogr am No observ ation record ed. [facility] [address] [place] [address], [id number], 03/20/2024 14:50:32 03/31/20 24 03/31/2024 elect rocar diogr am No observ ation record ed. [facility] [address] [place] [address], [id number], 03/31/2024 18:36:06 04/27/20 24 04/27/2024 elect rocar diogr am No observ ation record ed. [email or web address] [facility] [address] [place] [address], [id number], 04/27/2024 20:22:51 Result Notes None recorded. Procedures Surgical History None recorded. Imaging Results Imaging Date Name Status LastModified by Organization Details LastModified Time 03/20/2024 electrocardiogram completed [address], [id number], 03/20/2024 14:50:32 03/31/2024 [facility] [address] [place] [address], [id number], 03/31/2024 18:36:06 04/27/2024 electrocardiogram completed [email or web address] [facility] [address] [place] [address], [id number], 04/27/2024 20:22:51 Procedure Notes None recorded. Medical [...] for nebulization USE 1 VIAL VIA NEBULIZER KINJAL VECES AL СЕРГЕЙ active Not Available Not [...] 1 C PSULA POR V A ORAL KINJLA VECES AL D A CUANDO SEA NECESARIO [...] /min 162.56 cm 96 % 96 % 034611. 16 g 16 /min 121 mm[Hg] 87 mm[Hg] Not Available [employer] 4 21:44:22 Date Recorded Heart rate Respiratory rate Body temperature Oxygen saturation Oxygen saturation in Arterial blood by Pulse oximetry Systolic blood pressure Diastolic blood pressure Systolic blood pressure Diastolic blood pressure Provider Name and Address Organization Details Last Updated DateTime 4 105 /min 16 /min 98.7 [degF] 95 % 95 % 114 mm[Hg] 81 mm[Hg] 85 mm[Hg] 51 mm[Hg] Not Available [employer] 4 14:41:24 Date Recorded Respiratory rate Heart rate Body weight Body temperature Oxygen saturation Oxygen saturation in Arterial blood by Pulse oximetry Heart rate Respiratory rate Systolic blood pressure Diastolic blood pressure Systolic blood pressure Diastolic blood pressure Provider Name and Address Organization Details Last Updated DateTime 4 16 /min 74 /min 33250.4 4 g 98.3 [degF] 98 % 98 % 84 /min 20 /min 114 mm[Hg] 84 mm[Hg] 120 mm[Hg] 86 mm[Hg] Not Available [employer] 4 18:31:50 Date Recorded Oxygen saturation Oxygen [...] Updated DateTime 04/27/2024 162.56 cm 33.5 kg/m2 40714.51 g Davina Garner MD [address] [place] [address],[address], [place], [address], [facility] [employer] 04/27/2024 20:03:55 Social History None recorded. Functional Status None recorded. Mental Status None recorded. Family History Nothing Reported. Medical History No medical history recorded. Past Encounters Encounter ID Performer Location Encounter Start Date Encounter Closed Date Diagnosis/Indication Diagnosis SNOMED-CT Code Diagnosis ICD10 Code Diagnosis Note [id number] Allison Newman MD [address] [phone] 04/11/2022 18:32:13 04/15/2022 15:46:34 Cough 78518809 R05.9 [id number] Davina Garner MD [address] [address] 01/07/2023 14:14:00 01/07/2023 22:56:53 Essential hypertension 55906043 I10 Patient exam is benign. Patient reassured/ his blood pressure is normal when taken with the medic cough. The medic measured the patient's blood pressure with his 5-year-old home machine and got 135/112 thus it is the patient's machine that is giving erroneous readingsNo te sent to [facility] to reach out to the customer care assistant to assist the patient in obtaining a new home blood pressure monitor. Advised to continue all his regular medication s and follow-up with his PCP as needed [id number] [facility] [address] [place] [phone] 01/08/2023 15:21:28 01/08/2023 23:59:09 Viral upper respiratory tract infection 734169342 J06.9 And viral pharyngiti s-advised to gargle [...] pcp. Sandra Bloom MD [facility] - [facility] [address] [place] [phone] 06/23/2023 18:11:30 06/24/2023 10:34:59 Dizziness [id number] R42 [id number] Marlyn Casas MD [facility] - [facility] [address] [place] [phone] 08/05/2023 10:57:00 08/05/2023 16:00:41 Asthma 032514816 J45.909 Exacerbati on of moderate persistent asthma 709486266 J45.41 [id number] Eric Israel MD Main - [facility] [address] [place] [id number] 08/13/2023 12:51:38 08/13/2023 20:11:05 Acute exacerbation of chronic obstructive pulmonary disease 926882603 J44.1 The patient has a flare-up of his COPD. He will continue his current treatments . [id number] Eric Israel MD Main - [facility] [address] [place] [phone] 11/14/2023 12:02:23 11/14/2023 21:31:15 Vertigo 551186350 R42 This 67-year-ol d male with a past history of vertigo developed mild vertigo today. He has taken Meclizine in the past with good relief. I ordered Meclizine 50 mg now. He will follow-up with his PCP if the vertigo persists. The patient agreed with this plan. [id number] Thomas Lyon MD [facility] - [facility] [address] [place] [id number] 11/27/2023 21:44:10 11/28/2023 10:18:17 Headache 92547942 R51.9 [id number] Jeancarlos Gonsales MD [facility] - [facility] [address] [place] [phone] 03/20/2024 14:41:13 03/22/2024 13:41:42 Orthostatic hypotension 88569929 I95.1 Atrial fibrillation 4943 6004 I48.91 [id number] RENU MARIE MD [facility] - [facility] [address] [place] [phone] 03/31/2024 18:19:08 04/01/2024 11:10:35 Dizziness 811354376 R42 Evaluation in the field was performed by my fitness coordinator colleague, as noted above, I provided real-time [...] , palpitatio ns or any other concerns. [id number] Marlyn Casas MD [facility] - [facility] [address] [place] [id number] 04/21/2024 10:14:37 04/22/2024 00:16:20 Asthma-chronic obstructive pulmonary disease overlap syndrome 0554093303 7177242 J44.9 Viral uppe r respiratory tract infection 399979226 J06.9 [id number] Davina Garner MD Main - [facility] [address] [place] [phone] 04/27/2024 11:24:18 04/27/2024 22:19:18 Headache 07794399 R51.9 w/ dizziness- possibly sinusitisS lightly less [...] Young Member ID Guarantor Name 11/27/2023 [address] [facility] [employer] - DOS ON OR AFTER 2022 - DUAL ELIGIBLE - SKILLED NURSING OPTIONS AND ONE CARE (MEDICARE REPLACEMENT/AD VANTAGE - HMO) Min Arauz [id number] Min Arauz 03/20/2024 1 [facility] [employer] - DOS ON OR AFTER 2022 - DUAL ELIGIBLE - SKILLED NURSING OPTIONS AND ONE CARE (MEDICARE REPLACEMENT/AD VANTAGE - HMO) Min Arauz [id number] Min Arauz 03/31/2024 1 [facility] [employer] - DOS ON OR AFTER 2022 - DUAL ELIGIBLE - SKILLED NURSING OPTIONS AND ONE CARE (MEDICARE REPLACEMENT/AD VANTAGE - HMO) Min Arauz [id number] Min Arauz 04/21/2024 1 [facility] [employer] - DOS ON OR AFTER 2022 - DUAL ELIGIBLE - SKILLED NURSING OPTIONS AND ONE CARE (MEDICARE REPLACEMENT/AD VANTAGE - HMO) Min Arauz [id number] Min Arauz 04/27/2024 1 [facility] - DOS ON OR AFTER 2022 - DUAL ELIGIBLE - SKILLED NURSING OPTIONS AND ONE CARE (MEDICARE REPLACEMENT/AD VANTAGE - HMO) Min Arauz [id number] Min Arauz Notes Date Note Type Note Provider Name and Address Organization Details Recorded Time 11/27/2023 text/html [facility] Nurse Triage Notes (Padmini Payne): Reason For Request: high BP Chief Complaints: Hypertension PMH: COPD/Asthma, Hypertension, CHF, Heart Disease, Diabetes Allergies: No Known Comments: Referral taken via [employer] [id number]. Member with elevated BP, 153/112 and 156/120, took his HS medications. Member with headache and dizziness, denies chest pain, mild sob, but is not new, denies any arm or jaw pain, no numbness, tingling or weakness anywhere. Member would like to be evaluated. ...................... ...................... ...................... ...................... ...................... ...................... ......... Powder Loader Note From Pradeep Rainey: [facility] visit for [...] afib, no other significant findings. Consulted with [facility] Dr. Lyon who advised pt should take another 500mg tylenol. Reviewed red flags for ED. Patient education provided. ...................... ...................... ...................... ...................... ...................... ...................... ......... Disposition: Fulfilled Thomas Lyon MD [address] [place] [address],[address], [place], [address], [employer] 11/27/2023 23:06:36 03/20/2024 text/html This was a super vised home visit with fitness coordinator Rivas Thapa. [facility] Nurse Triage Notes (Dov Lainez): Reason For Request: Patient was dizzy, fell, and hurt himself, possibly bp problems - Chief Complaints: Dizziness PMH: COPD/Asthma, Hypertension, Congestive Heart Failure, Coronary Artery Disease, Gastroesophageal Reflux Disease (GERD) Comments: Design Verification Engineer verified the Pt.'s name//address and phone number. [...] Concerns expressed - PT declines ER treatment. Powder Loader Organization Information for Rivas Thapa Legal Name: [facility]ated [facility] Transportation Address: [address] [place] [address], [place] [address], Intervention Teacher: Byron Mauro MD CLIA No.: [id number] Powder Loader POC Test Results from Rivas Thapa EKG (14:32:21) EKG test performed. Attachments uploaded as part of this test result can be found under Documents section. ...................... ...................... ...................... ...................... ...................... ...................... ......... Powder Loader Note From Rivas Thapa: This 68-year-old male [...] No lower extremity edema. EKG uploaded, a-fib. [facility] contacted and agrees that an emergency department evaluation is necessary. Patient agreeable to ambulance transport to [facility] emergency department. 911 initiated and verbal SBAR given to [facility] ALS crew. ...................... ...................... ...................... ...................... ...................... ...................... ......... [facility] Consulted: Jeancarlos Gonsales ...................... ...................... ...................... ...................... ...................... ...................... ......... Disposition: Fulfilled Jeancarlos Gonsales MD [address] [place] [address],[address], [place], [address], [employer] 03/20/2024 18:19:45 03/31/2024 text/html [facility] Nurse Triage [...] ...................... ...................... ...................... ...................... ...................... ...................... ......... Powder Loader Note From Chuy Finn: Pt had no [...] and rhythm/A-fib. Pt stable. Pt taking eliquis. [facility] Dylon contacted and advised pt of signs indicating the ER, Drink plenty of fluids, Monitor symptoms. Allergies Discussed. ...................... ...................... ...................... ...................... ...................... ...................... ......... [facility] Consulted: Renu Marie ...................... ...................... ...................... ...................... ...................... ...................... ......... Disposition: Syed MARIE MD [address] [facility],[address], [place], [address], [employer] 03/31/2024 23:40:49 04/27/2024 text/html [facility] Nurse Triage Notes (Padmini Payne [...] morning. Patient would like to be re-evaluated. Powder Loader Organization Information for Cheikh Mejia Legal Name: [employer] Address: [address] [place] [address], Intervention Teacher: Parish Ruiz MD CLIA No.: [id number] Powder Loader POC Test Results from Cheikh Mejia EKG [...] ...................... ...................... ...................... ...................... ...................... ...................... ......... Powder Loader Note From Cheikh Mejia: Dispatched for the scheduled visit for the male patient with a headache. pt. was found alert and oriented x3 sitting in bed c/o of a severe headache from yesterday with dizziness upon sitting up. pt. noted he had been seen by [facility] on the but could not remember his [...] in all extremities -dcaptbtls -stroke scale findings. [facility] contacted and ordered COVID and FLU swab, BMP and orthostatic vital signs while sitting and standing in addition. 21 gauge butterfly LAC performed for BMP. all results forwarded and [facility] then ordered a 12 lead ekg and IV with 750 ml Normal Saline. IV established 18 gauge left forearm-normal saline IV drip 750 ml. all results forwarded to [facility] with changed after normal saline. [facility] noted she would send amoxicillin and Fluticasone and saline nasal spray to the patients pharmacy for possible nasal infection. red flag warnings discussed and noted to call 911 if headache or dizziness worsened any slurred speech, weakness, facial droop or syncope occurred. all times are approx.report completed by rob mejia. [facility] Lab Orders: rapid SARS CoV 2 Ag, QL IA, respiratory specimen: Performed ...................... ...................... ...................... ...................... ...................... ...................... ......... [facility] Consulted: Davina Garner ...................... ...................... ...................... ...................... ...................... ...................... ......... Disposition: FulfilledSEGMD: letty seen by [facility] on 04/21 and diagnosed with COPD exacerbation [...] Kidney Disease, Obesity. Davina Garner MD [address] [facility],[address], [place], [address], [facility] - [employer] [facility] 04/27/2024 20:33:33
--- OUTSIDE RECORDS SUMMARY | 2024-07-01 10:54 | XMS_ITS | Encounter Summary ---
Author Organization [employer] [facility] Address [address] [facility] [address] [place] [address] Care Team Providers Care Superintendent System Operation Name Role Phone Gemini Chavez MD Primary Care Provide r Reason for Visit * Reason Comments Med Refill Encounter Details Date Type Department Care Team (Late st Contact Info) Description 09/08/2022 Refill [facility] [address] [place], [place] [phone] Umer Sears MD [address] [place], [place] [phone] Seasonal allergies Social History Tobacco Use Types [...] 07/22/2024 11:00 AM EDT Office Visit [facility] [address] [place], [place] [phone] Gemini Chavez MD [address] [place], [place] [phone] documented as of this encounter Visit Diagnoses Diagnosis Seasonal allergies Allergic rhinitis, cause unspecified documented in this encounter Additional Health Concerns Assessment Noted Time PHQ-9 Depression Total Score: 6 05/16/19 23 1:42 PM EST documented as of this encounter Care Teams Superintendent System Operation Relationship Specialty Start Date End Date Gemini Chavez MD [address] [place] [address] PCP - General Family Medicine 01/21/18 [employer] 03/28/24 documented as of this encounter
--- OUTSIDE RECORDS SUMMARY | 2024-07-01 10:54 | XMS_ITS | Encounter Summary ---
Author Organization [employer] Address [address] [facility] [address] [place] [address] Care Team Providers Care Mud Analysis Well Logging Captain Name Role Phone Gemini Chavez MD Primary Care Provide r Reason for Visit * Reason Comments Med Change Request Encounter Details Date Type Department Care Team ([facility] st Contact Info) Description 02/04/2023 Refill [facility] [address] [place], [place] [phone] Marsha Menjivar MD [address] [place] [address] Primary hypertension Social History Tobacco Use Types [...] - 03/03/2023 11:46 AM EDT Sent to [employer] [facility] * Telephone Encounter - Jacqueline [...] Description 07/22/2024 11:00 AM EDT Office Visit [facility] [address] [place] [address] Gemini Chavez MD [address] [place] [address] documented as of this encounter Visit Diagnoses Diagnosis Primary hypertension Unspecified essential hypertension documented in this encounter Additional Health Concerns Assessment Noted Time PHQ-9 Depression Total Score: 6 05/16/19 23 1:42 PM EST documented as of this encounter Care Teams Mud Analysis Well Logging Captain Relationship Specialty Start Date End Date Gemini Chavez MD [address] [place] [id number] PCP - General Family Medicine 01/21/18 [employer] 03/28/24 documented as of this encounter
--- OUTSIDE RECORDS SUMMARY | 2024-07-01 10:54 | XMS_ITS | Encounter Summary ---
Author Organization [employer] [facility] Address [address] [facility] [address] [place] [address] Care Team Providers Care It Risk Advisor Name Role Phone Gemini Chavez MD Primary Care Provide r Encounter Details Date Type Department Care Team (Late st Contact Info) Description 01/22/2023 Orders Only [facility] [address] [place], [place] [phone] Gemini Chavez MD [address] [place], [place] [phone] COPD with asthma ([facility]) Social History Tobacco Use Types Packs/Day [...] Description 07/22/2024 11:00 AM EDT Office Visit [facility] [address] [place] [address] [phone] Gemini Chavez MD [address] [place] [address] documented as of this encounter Visit Diagnoses Diagnosis COPD with asthma ([facility]) documented in this encounter Additional Health Concerns Assessment Noted Time PHQ-9 Depression Total Score: 6 05/16/19 23 1:42 PM EST documented as of this encounter Care Teams It Risk Advisor Relationship Specialty Start Date End Date Gemini Chavez MD [address] [place] [address] PCP - General Family Medicine 01/21/18 [employer] 03/28/24 documented as of this encounter
--- OUTSIDE RECORDS SUMMARY | 2024-07-01 10:55 | XMS_ITS | Encounter Summary ---
Author Organization [employer] Address 75 [facility] 7t [place] [address] Care Team Providers Care Otr [employer] Truck Driver Name Role Phone Gemini Chavez MD Primary Care Provide r Reason for Visit * Reason Onset Date Comments Nurse Triage 03/26/2023 Encounter Details Date Type Department Care Team ([facility] st Contact Info) Description 03/26/2023 Telephone [facility] MEDICINE [address] [place], [place] [phone] Gemini Chavez MD 230 [place] [address] Nurse Triage Social History Tobacco Use Types [...] t he electric, gas, oil or water [employer] threatened to shut off services in your [...] 03/26/2023 11:47 AM EST Triage call with [place] [employer] Press Operator [place] [id number] Pt reports ingrown toenail great toe on left foot for 3 days now. Pt reports it is painful and causes some limping when ambulating. Pt denies redness, drainage. Pt requests a referral to traffic rate clerk which was very helpful last time this happened. Pt is advised will send this request to PCP and nursing team for follow up and Pt agreed. Pt declined to come to [facility] only wants traffic rate clerk to cut this toenail. Protocol Used: Information [...] accepted this outcome Please contact pt at [phone] (translator and interpreter needed) documented in this encounter Plan of Treatment Upcoming Encounters Date Type Department Care Team ([facility] st Contact Info) Description 07/22/2024 11:00 AM EDT Office Visit [facility] MEDICINE [address] [place] [address] [phone] Gemini Chavez MD [address] [place], [place] [phone] documented as of this encounter Visit Diagnoses Not on filedocumented in this encounter Additional Health Concerns Assessment Noted Time PHQ-9 Depression Total Score: 6 05/16/19 23 1:42 PM EST documented as of this encounter Care Teams [employer] Truck Driver Relationship Specialty Start Date End Date Gemini Chavez MD 230 [place] [address] PCP - General Family Medicine 01/21/18 [email or web address] 03/28/24 documented as of this encounter
--- OUTSIDE RECORDS SUMMARY | 2024-07-01 10:55 | XMS_ITS | Encounter Summary ---
Author Organization [facility] Address [id number] [place] [phone] Care Team Providers Care Button And Buckle Maker Name Role Phone Gemini Chavez MD Primary Care Provide r Reason for Visit * Reason Comments Follow-up Painful feet and toe s Encounter Details Date Type Department Care Team (Late st Contact Info) Description 06/02/2024 1:45 PM EST Office Visit [facility] [place] [address] [phone] Gallito Hancock DPM [address] [address] Ingrowing nail (Primary Dx); Type II diabetes mellitus with peripheral circulatory disorder (CMS/HCC) Social History Tobacco Use Types Packs/Day Years Used Date Smoking Tobacco: Never Assessed Sex and Gender Information Value Date Recorded Sex Assigned at Not on file Legal Sex Male 8:58 PM EST Gender Identity Not on file Sexual Orientation Not on file documented as of this [...] PM EDT Office Visit [facility] [place] [address] [phone] Gallito Hancock, DPM 175 [facility] 250 [place] [address] documented as of this encounter Visit Diagnoses Diagnosis Ingrowing nail- Primary Type II diabetes mellitus with peripheral circulatory disorder (CMS/[facility]) Type II or unspecified type diabetes mellitus with peripheral circulatory disorders, not stated as uncontrolled documented in this encounter Care Teams Button And Buckle Maker Relationship Specialty Start Date End Date Gemini Chavez MD [address] [phone] PCP - General 04/24/23 documented as of this encounter
--- OUTSIDE RECORDS SUMMARY | 2024-07-01 10:55 | XMS_ITS | Encounter Summary ---
Author Organization [employer] Address 75 [facility] 7t [place] [address] Care Team Providers Care Marketing Communications Coordinator Name Role Phone Gemini Chavez MD Primary Care Provide r Encounter Details Date Type Department Care Team (Late st Contact Info) Description 07/10/2023 Orders Only [facility] MEDICINE 230 [place], [place] [phone] Gemini Chavez MD 230 [place], [place] [phone] Mixed stress and urge urinary incontinence (Primary [...] the past 12 months, has t he [employer], [employer], oil or water company threatened to shut [...] 11:00 AM EDT Office Visit [facility] MEDICINE [address] [place] [address] Gemini Chavez MD [address] [place] [address] documented as of this encounter Visit Diagnoses Diagnosis Mixed stress and urge urinary incontinence- Primary Mixed incontinence urge and stress (male)(female) documented in this encounter Additional Health Concerns Assessment Noted Time PHQ-9 Depression Total Score: 6 05/16/19 23 1:42 PM EST documented as of this encounter Care Teams Marketing Communications Coordinator Relationship Specialty Start Date End Date Gemini Chavez MD [address] [place] [phone] PCP - General Family Medicine 01/21/18 [employer] 03/28/24 documented as of this encounter
--- OUTSIDE RECORDS SUMMARY | 2024-07-01 10:55 | XMS_ITS | Encounter Summary ---
Author Organization [employer] Address 75 [facility] 7t [place] [address] Care Team Providers Care Data Warehouse Architect Name Role Phone Gemini Chavez MD Primary Care Provide r Reason for Visit * Reason Comments Med Refill Encounter Details Date Type Department Care Team ([facility] st Contact Info) Description 10/20/2023 Refill [facility] MED & PEDS [address] [place], [place] [phone] Gemini Chavez MD 230 [place] [address] Seasonal allergies Social History Tobacco Use Types [...] Description 07/22/2024 11:00 AM EDT Office Visit [facility] MEDICINE [address] [place] [phone] Gemini Chavez MD 230 [place] [address] documented as of this encounter Visit Diagnoses Diagnosis Seasonal allergies Allergic rhinitis, cause unspecified documented in this encounter Additional Health Concerns Assessment Noted Time PHQ-9 Depression Total Score: 0 09/03/19 9:55 AM EDT documented as of this encounter Care Teams Data Warehouse Architect Relationship Specialty Start Date End Date Gemini Chavez MD [address] [place] [phone] PCP - General Family Medicine 01/21/18 [email or web address] 03/28/24 documented as of this encounter
--- OUTSIDE RECORDS SUMMARY | 2024-07-01 10:55 | XMS_ITS | Encounter Summary ---
Author Organization [employer] Address 75 [facility] 7t [place] [address] Care Team Providers Care Drug Safety Specialist Name Role Phone Gemini Chavez MD Primary Care Provide r Encounter Details Date Type Department Care Team (Late st Contact Info) Description 06/16/2024 Orders Only [facility] External Provider, [facility] Social History Tobacco Use Types Packs/Day Years [...] 07/22/2024 11:00 AM EDT Office Visit [facility] MEDICINE 230 [place] [address] Geimni Chavez MD 230 [place] [address] documented as of this encounter Procedures Procedure Name Priority Date/Time Associated Diagnosis Comments XR SHOULDER 2+ VIEWS LEFT Routine 06/16/2024 12:45 PM EST HIGH SENSITIVITY TROPONIN I Routine 06/16/2024 11:[address] HEAD WO CONTRAST Routine 06/16/2024 9:18 AM EST HIGH SENSITIVITY TROPONIN I Routine 06/16/2024 9:16 AM EST SARS COV2/INFLUENZA A/B AND RSV RNA QL NAAT Routine 06/16/2024 9:16 AM EST CBC WITH AUTO DIFFERENTIAL Routine 06/16/2024 9:16 AM EST PROTHROMBIN TIME-INR Routine 06/16/2024 9:16 AM EST B TYPE NATRIURETIC PEPTIDE (BNP) Routine 06/16/2024 9:16 AM EST LIPASE Routine 06/16/2024 9:16 AM EST HEPATIC FUNCTION PANEL Routine 06/16/2024 9:16 AM EST BASIC METABOLIC PANEL Routine 06/16/2024 9:[address] CERVICAL SPINE WO CONTRAST Routine 06/16/2024 9:08 AM EST XR CHEST 1 VIEW Routine 06/16/2024 8:45 AM EST documented in this encounter Results * XR Shoulder 2+ Views Left (06/16/2024 12:45 PM EST) Anatomical Region Laterality Modality Upper Extremities, Shoulder Left Radi ographic Imaging 06/16/2024 12:4 5 PM EST Narrative 06/16/2024 1:02 PM EST ? [facility] ?[address] ?[place] [address] ?XRay Report ? Signed ? Patient: Min Rees ?MR#: ?? [id number] ? : 1955 ?Acct:[id number] ? Age/Sex: 68 / M ?ADM Date: 06/16/24 ? Loc: HO.ED ? Attending Dr: ? Ordering Physician: Sarah Beth Quinonez ?? Date of Service: 06/16/24 ?? Procedure(s): XR shoulder LT min 2V ?? Accession Number(s): [id number] ? cc: Gemini Chavez MD; Sarah Beth [...] by Chacorta S Nuzhat, MD in OV> ?06/16/24 1259 ? DD/ 1245 ? TD/TT: 06/16/24 1250 ? Beach Expert: CJ ? Procedure Note Tam, Image - 06/16/[address] [address] XRay Report Signed Patient: Min ReesMR#: [id number] : 6Acct:[id number] Age/Sex: 68 / MADM Date: 06/16/24 Loc: HO.ED Attending Dr: Ordering Physician: Sarah Beth Quinonez Date of Service: 06/16/24 Procedure(s): XR shoulder LT min 2V Accession Number(s): [id number] cc: Gemini Chavez MD; Sarah Beth Quinonez [...] 06/16/24 1259 DD/ 1245 TD/TT: 06/16/24 1250 Beach Expert: CJ [facility] External Provider IMG XR PROCEDURES Edited Result - Final * High Sensitivity Troponin I (06/16/2024 11:38 AM EST) TROPONIN I HIGH SENSITIVITY 3.4 <3.5 - 35.0 ng/L [facility] Comment:The Ham high sens itivity Troponin-I results should beused in conjunction with other diagnostic information suchas ECG, clinical observations and information, and patientsymptoms to aid in the diagnosis of LA. 06/16/2024 11:3 8 AM EST 06/16/2024 11:41 AM EST us Generic External Data Provider LAB BLOOD ORDERAB LES Final Result [facility] [address] [place] [address] [phone] * CT Head w/o Contrast (06/16/2024 9:18 AM EST) Anatomical Region Laterality Modality Head, Neck Computed Tomogra phy 06/16/2024 9:18 AM EST Narrative 06/16/2024 9:52 AM EST ? [facility] ?[address] ?[place] [address] ? CT Scan Report ? Signed ? Patient: Min Rees ?MR#: ?? [id number] ? : 1955 ?Acct:[id number] ? Age/Sex: 68 / M ?ADM Date: 06/16/24 ? Loc: HO.ED ? Attending Dr: ? Ordering Physician: Ysabel Benton PERINATAL TECHNICIAN ?? Date of Service: 06/16/24 ?? Procedure(s): CT head/brain wo IV con ?? Accession Number(s): [id number] ? cc: Gemini Chavez MD; Ysabel Benton NP ? Report Number: ?? [id number]: Total DLP = ??793.00 mGy-cm ?? EXAMINATION: [...] DD/ 0918 ? TD/TT: 06/16/24 0944 ? Beach Expert: ? Procedure Note Tam, Jeancarlos - 06/16/[address] [address] [address] Scan Report Signed Patient: Min Rees#: [id number] : 6Acct:[id number] Age/Sex: 68 / MADM Date: 06/16/24 Loc: HO.ED Attending Dr: Ordering Physician: Ysabel Benton NP Date of Service: 06/16/24 Procedure(s): CT head/brain wo IV con Accession Number(s): [id number] cc: Gemini Chavez MD; Ysabel Benton NP Report Number: [id number]: Total DLP = 793.00 mGy-cm EXAMINATION: CT [...] by: Bladimir Doherty MD 06/16/2024 09:49 AM EST Dictated By: Bladimir Doherty MD Signed By: <Electronically signed by Bladimir Doherty MD in OV> 06/16/2449 DD/ 7 TD/TT: 06/16/24943 Beach Expert: [facility] External Provider IM CT PROCEDURES Edited Result - Final * SARS-CoV-2 RNA, Influenza A/B, and RSV RNA, Ql NAAT (06/16/2024 9:16 AM EST) Influenza A PCR NEGATIVE Negative [facility] Influenza B PCR NEGATIVE Negative [facility] Resp Syncy Virus RNA Qual PCR NEGATIVE Negative [facility] SARS COV2 PCR NEGATIVE Negative [facility] Comment:All test results mus t [...] use by authorized laboratories.Testing performed on the [employer] GeneXpert utilizingreal-time RT-PCR.All SARS CoV2 and positive influenza A/B results arereported to [facility]. 06/16/2024 9:16 AM EST 06/16/2024 9:21 AM EST Generic External Data Provider LAB MICROBIOLOGY - GENERAL ORDERABLES Final Result Performing Organization Address [facility] de Phone Number [facility] [address] [place] [phone] * High Sensitivity Troponin I (06/16/2024 9:16 AM EST) Pathologist [facility] TROPONIN I HIGH SENSITIVITY 4.2 <3.5 - 35.0 ng/L [facility] Comment:The [place] high sens itivity Troponin-I results should beused in conjunction with other diagnostic information suchas ECG, clinical observations and information, and patientsymptoms to aid in the diagnosis of LA. 06/16/2024 9:16 AM EST 06/16/2024 9:21 AM EST Generic External Data Provider LAB BLOOD ORDERAB LES Final Result Performing Organization Address [facility] Co de Phone Number [facility] [address] [place] [address] [phone] * (ABNORMAL) B Type Natriuretic Peptide (BNP) (06/16/2024 9:16 AM EST) Pathologist [facility] B Type Natriuretic Peptide 238(H) <100 pg/mL [facility] Comment:For those patients w ho are being treated with Natrecor(nesiritide, recombinant BNP), BNP testing should beperformed at least two hours post treatment in order toensure that only endogenous levels of BNP are detected. 06/16/2024 9:16 AM EST 06/16/2024 9:21 AM EST Generic External Data Provider LAB BLOOD ORDERAB LES Final Result Performing Organization Address City/[facility]/ZIP Co de Phone Number [facility] [address] [place] [phone] * Lipase (06/16/2024 9:16 AM EST) Pathologist [facility] Lipase 52 8 - 78 U/L [facility] 06/16/2024 9:16 AM EST 06/16/2024 9:21 AM EST us Generic External Data Provider LAB BLOOD ORDERAB LES Final Result Performing Organization Address City/[facility]/ZIP Co de Phone Number [facility] [address] [place] [phone] * (ABNORMAL) Basic Metabolic Panel (06/16/2024 9:16 AM EST) [facility] Sodium 141 135 - 145 mmol/L [facility] Potassium 3.5 3.3 - 5.1 mmol/L [facility] Chloride 109(H) 96 - 108 mmol/L [facility] Carbon Dioxide 26 22 - 29 mmol/L [facility] Anion Gap 10(L) 12 - 20 [facility] Urea Nitrogen (BUN) 12 9 - 16 mg/dL [facility] Creatinine, Serum 1.10 0.5 - 1.4 mg/dL [facility] Creatinine Clr Calc Pharmacy 68.0 [facility] Comment:eGFR (calculated fro m the MDRD study equation) and eCrCl(calculated from the Cockcroft-Gault equation) are based ondifferent parameters and may not yield comparable results.If eCrCl result is absurd, please check patient'sheight/weight. Estimated Glomerular Filt Rate >60 [facility] Comment:Chronic Kidney Disea se: Estimated GFR < 60 mL/min/1.99e8Ruazwm Kidney Disease: Estimated GFR < 15 mL/min/1.73m2 Glucose 140(H) 60 - 115 mg/dL [facility] Calcium 8.7 8.4 - 10.2 mg/dL [facility] 06/16/2024 9:16 AM EST 06/16/2024 9:21 AM EST us Generic External Data Provider LAB BLOOD ORDERAB LES Final Result Performing Organization Address City/[facility] Co de Phone Number [facility] [address] [place] [phone] * Hepatic Function Panel (06/16/2024 9:16 AM EST) Bilirubin, Total 0.8 0.0 - 1.0 mg/dL [facility] Bilirubin, Direct 0.3 0.0 - 0.5 mg/dL [facility] Aspartate Amino Transferase 22 5 - 37 U/L [facility] Alanine Aminotransferase 18 0 - 40 U/L [facility] Total Protein 6.5 6.5 - 8.0 g/dL [facility] Albumin Level 3.8 3.5 - 5.0 g/dL [facility] Alkaline Phosphatase 43 39 - 117 U/L [facility] 06/16/2024 9:16 AM EST 06/16/2024 9:21 AM EST us Generic External Data Provider LAB BLOOD ORDERAB LES Final Result [facility] [address] [place] [address] [phone] * (ABNORMAL) Prothrombin Time-INR (06/16/2024 9:16 AM EST) Pathologist [facility] Prothrombin Time 15.5(H) 10.9 - 12.4 SEC [facility] INTERNATIONAL NORM RATIO 1.3(H) 0.9 - 1.1 [facility] Comment:INTERNATIONAL NORMAL IZED RATIO (INR) REFERENCE [...] ORDERAB LES Final Result Performing Organization Address [facility] de Phone Number [facility] [address] [place] [phone] * (ABNORMAL) CBC auto differential (06/16/2024 9:16 AM EST) [facility] White Blood Count 6.8 4.8 - 10.8 X10*3/uL [facility] Red Blood Count 3.61(L) 4.60 - 5.80 X10*6/uL [facility] Hemoglobin 11.5(L) 14.0 - 18.0 g/dl [facility] Hematocrit 33.3(L) 42.0 - 52.0 % [facility] Mean Corpuscular Volume 92.2 80.0 - 98.0 fL [facility] Mean Corpuscular Hemoglobin 31.9 27.0 - 33.0 pg [facility] Mean Corpuscular HGB Conc 34.5 31.0 - 36.0 g/dl [facility] Red Cell Distribution Width 12.0 11.0 - 16.0 % [facility] Platelet Count 173 160 - 400 X10*3/uL [facility] Mean Platelet Volume 10.1 9.4 - 12.4 fL [facility] Neutrophils Percent Auto 73.8(H) 45 - 73 % [facility] Imm Gran Pct Auto 0.3 0.0 - 0.4 % [facility] Lymphocytes Percent Auto 14.9(L) 20 - 40 % [facility] Monocytes Percent Auto 10.3 2 - 11 % [facility] Eosinophils Percent Auto 0.4 0 - 4 % [facility] Basophils Percent Auto 0.3 0 - 2 % [facility] NRBC Pct Auto 0.0 0.0 - 0.2 /100WBC [facility] Neutrophils Absolute Auto 5.0 2.0 - 8.3 x10*3/uL [facility] Imm Gran Abs Auto 0.02 0.00 - 0.03 X10*3/uL [facility] Lymphocytes Absolute Auto 1.0(L) 1.2 - 4.9 X10*3/uL [facility] Monocytes Absolute Auto 0.7 0.1 - 1.2 X10*3/uL [facility] Eosinophils Absolute Auto 0.0 0.0 - 0.4 X10*3/uL [facility] Basophils Absolute Auto 0.0 0.0 - 0.2 X10*3/uL [facility] NRBC Abs Auto 0.000 0.0 - 0.012 X10*3/uL [facility] 06/16/2024 9:16 AM EST 06/16/2024 9:21 AM EST us Generic External Data Provider LAB BLOOD ORDERAB LES Final Result [facility] [address] [place] [address] [phone] * CT Cervical Spine w/o Contrast (06/16/2024 9:08 AM EST) Anatomical Region Laterality Modality Spine, C-spine Computed Tomogra phy 06/16/2024 9:08 AM EST Narrative 06/16/2024 9:58 AM EST ? [facility] ?[address] ?[place], [place] [address] ? CT Scan Report ? Signed ? Patient: Davonte Cano,Min ?MR#: ?? [id number] ? : 1955 ?Acct:[id number] ? Age/Sex: 68 / M ?ADM Date: 06/16/24 ? Loc: HO.ED ? Attending Dr: ? Ordering Physician: Ysabel Benton NP ?? Date of Service: 06/16/24 ?? Procedure(s): CT cervical spine wo IV con ?? Accession Number(s): [id number] ? cc: Gemini Chavez MD; Ysabel Benton NP ? Report Number: ?? [id number]: Total DLP = ??436.00 mGy-cm ?? EXAMINATION: [...] Doherty MD ??06/16/2024 09:56 AM EST RP ?? Workstation: [id number] ? Dictated By: ?Bladimir Doherty MD ? Signed By: ?<Electronically signed by Bladimir Doherty MD in OV> ?06/16/24 0956 ? DD/ 0908 ? TD/TT: 06/16/2444 ? Beach Expert: ? Procedure Note Jeancarlos Turcios - 06/16/[address] [address] [address] Scan Report Signed Patient: Min eResMR#: [id number] : 6Acct:[id number] Age/Sex: 68 / MADM Date: 06/16/24 Loc: HO.ED Attending Dr: Ordering Physician: Ysabel Benton NP Date of Service: 06/16/24 Procedure(s): CT cervical spine wo IV con Accession Number(s): [id number] cc: Gemini Chavez MD; Ysabel Benton NP Report Number: [id number]: Total DLP = 436.00 mGy-cm EXAMINATION: CT [...] by: Bladimir Doherty MD 06/16/2024 09:56 AM [facility] Dictated By: Bladimir Doherty MD Signed By: <Electronically signed by Bladimir Doherty MD in OV> 06/16/2456 DD/ 0908 TD/TT: 06/16/2444 Beach Expert: us [facility] External Provider IMG CT PROCEDURES Edited Result - Final * XR Chest 1 View (06/16/2024 8:45 AM EST) Anatomical Region Laterality Modality Chest Radiographic Claire ging 06/16/2024 8:45 AM EST Narrative 06/16/2024 9:05 AM EST ? [facility] ?[address] ?[place], [place] [address] ?XRay Report ? Signed ? Patient: Min Rees ?MR#: ?? [id number] ? : 1955 ?Acct:[id number] ? Age/Sex: 68 / M ?ADM Date: 06/16/24 ? Loc: HO.ED ? Attending Dr: ? Ordering Physician: Generic ED Physician ?? Date of Service: 06/16/24 ?? Procedure(s): XR chest 1V ?? Accession Number(s): [id number] ? cc: Gemini Chavez MD; Generic ED [...] ?? EST RP ? Dictated By: ?Valentin Guzman MD ? Signed By: ?<Electronically signed by Valentin Ruelas MD in OV> ? 06/16/24 0902 ? DD/ 0845 ? TD/TT: 06/16/24 0850 ? Beach Expert: ? Procedure Note Donotuseinterpreter, Image - 06/16/2024 [facility] [address] [place] [address] XRay Report Signed Patient: Min ReesMR#: [id number] : 6Acct:[id number] Age/Sex: 68 / MADM Date: 06/16/24 Loc: HO.ED Attending Dr: Ordering Physician: Generic ED Physician Date of Service: 06/16/24 Procedure(s): XR chest 1V Accession Number(s): [id number] cc: Gemini Chavez MD; Generic ED Physician [...] by: Valentin Resendiz MD 06/16/2024 09:02 AM [facility] Dictated By: Valentin Guzman MD Signed By: <Electronically signed by Valentin Ruelas MDin OV> 06/16/24 0902 DD/ 0845 TD/TT: 06/16/24 0850 Beach Expert: [facility] External Provider IMG XR PROCEDURES Edited Result - Final documented in this encounter Visit Diagnoses Not on filedocumented in this encounter Additional Health Concerns Assessment Noted Time PHQ-9 Depression Total Score: 0 09/03/19 24 9:55 AM EDT documented as of this encounter Care Teams Drug Safety Specialist Relationship Specialty Start Date End Date Gemini Chavez MD [address] [place] [address] PCP - General Family Medicine 01/21/18 [email or web address] 11/17/24 documented as of this encounter
--- OUTSIDE RECORDS SUMMARY | 2024-07-01 10:55 | XMS_ITS | Encounter Summary ---
Author Organization [employer] Address 75 [facility] 7t [place] [address] Care Team Providers Care Barber Name Role Phone Gemini Chavez MD Primary Care Provide r Encounter Details Date Type Department Care Team (Late st Contact Info) Description 06/18/2024 Orders Only [facility] MEDICINE [address] [place], [place] [phone] Gemini Chavez MD [address] [place], [place] [phone] Social History Tobacco Use Types Packs/Day Years [...] Description 07/22/2024 11:00 AM EDT Office Visit [facility] MEDICINE [address] [place] [phone] Gemini Chavez MD [address] [place] [phone] documented as of this encounter Visit Diagnoses Not on filedocumented in this encounter Additional Health Concerns Assessment Noted Time PHQ-9 Depression Total Score: 0 09/03/19 24 9:55 AM EDT documented as of this encounter Care Teams Barber Relationship Specialty Start Date End Date Gemini Chavez MD [address] [place] [phone] PCP - General Family Medicine 01/21/18 [employer] 03/28/24 documented as of this encounter
--- OUTSIDE RECORDS SUMMARY | 2024-07-01 10:55 | XMS_ITS ---
Author Organization [facility] Address [address] [place] [address] Care Team Providers Care Engineering Secretary Name Role Phone Gemini Fisher M.D. Primary Care Provider Abimael Carnes Jr, Larry Unavailable Katherine FORTE, Cipriano Unavailable Unavailable REASON FOR VISIT pathology Encounters Encounter Location Date Provider Diagnosis [facility] [address] [place] [address] 04/14/2023 Larry Carnes Jr PLAN OF TREATMENT No Information
--- OUTSIDE RECORDS SUMMARY | 2024-07-01 10:55 | XMS_ITS | Encounter Summary ---
Author Organization [employer] Address [address] [facility] 7t [place] [address] Care Team Providers Care Warehouse Insulation Worker Name Role Phone Gemini Chavez MD Primary Care Provide r Reason for Referral * Medications - Closed Specialty Diagnoses / Procedures Referred By Klever dozier Referred To Contact Diagnoses Class 2 severe obesity due to excess calories with serious comorbidity and body mass index (BMI) of 38.0 to 38.9 in adult ([facility]) Gemini Chavez MD [address] [place] [address] Phone: tel: fax: Referral ID Status Reason Start Date Expiration Date Visits Re quested Visits Authorized [id number] Closed 05/10/2024 05/10/2025 1 1 Encounter Details Date Type Department Care Team (Late st Contact Info) Description 05/10/2024 Orders Only [facility] [address] [place], [place] [phone] Gemini Chavez MD [address] [place], [place] [phone] Stage 3 chronic kidney disease, unspecified whether stage 3a or 3b CKD ([facility]) (Primary Dx); Class 2 severe obesity due [...] Description 07/22/2024 11:00 AM EDT Office Visit [facility] [address] [place], [place] [phone] Gemini Chavez MD [address] [place] [address] documented as of this encounter Visit Diagnoses Diagnosis Stage 3 chronic kidney disease, unspecified whether stage 3a or 3b CKD (CMS/HCC)- Primary Class 2 severe obesity due to excess calories with serious comorbidity and body mass index (BMI) of 38.0 to 38.9 in adult ([facility]) documented in this encounter Additional Health Concerns Assessment Noted Time PHQ-9 Depression Total Score: 0 09/03/19 9:55 AM EDT documented as of this encounter Care Teams Warehouse Insulation Worker Relationship Specialty Start Date End Date Gemini Chavez MD [address] [place] [address] PCP - General Family Medicine 01/21/18 [employer] 03/28/24 documented as of this encounter
--- OUTSIDE RECORDS SUMMARY | 2024-07-01 10:55 | XMS_ITS ---
Author Organization [facility] Address [address] [place] [address] Care Team Providers Care Wetlands Technician Name Role Phone Gemini Fisher M.D. Primary Care Provider Larry Angeles Jr Unavailable [phone] Katherine FORTE, Cipriano Unavailable Unavailable ALLERGIES No Known Allergies REASON FOR VISIT Patient presents today for PREBYSESOPHAGUS MEDICATIONS Medication SIG (Take, Route, Frequency, Duration) Notes Start Date End Date Status Lisinopril 40 MG Oral for 90 A ctive Levothyroxine Sodium 100 MCG Oral for 90 Active Loratadine 10 MG TOME FAUSTINA TABLETA POR VIA ORAL TODOS [place] CUANDO SEA NECESARIO FOR ALLERGIES Oral for 90 Active Meclizine HCl 25 MG PLEASE SEE ATTACHED FOR DETAILED DIRECTIONS Oral for 10 Active Incruse Ellipta 62.5 MCG/ACT INHALE 1 PU FF BY MOUTH EVERY DAY AT THE SAME TIME EACH DAY Inhalation for 30 Active Creon [id number] UNIT TOME 2 C PSULAS POR V A ORAL 4 TIMES A DAY FOR 30 DAYS ADMINISTER WITH MEALS AND/OR SNACKS Oral for 30 Active Flovent HFA 220 MCG/ACT Inhalation for 60 Active Furosemide 40 MG Oral for 90 A ctive Rosuvastatin Calcium 40 MG Oral for 90 Active Albuterol Sulfate (2.5 MG/3M L) 0.083% Inhalation for 17 Active Metoprolol Succinate ER 200 MG TOME FAUSTINA TABLETA POR V A ORAL TODOS LOS D Oral for 90 Active Zolpidem Tartrate 10 MG Oral for 30 Active hydroCHLOROthiazide 12.5 MG TOME FAUSTINA TAB FRAN TODOS LOS D Oral for 90 Active Pantoprazole Sodium 40 MG TOME FAUSTINA TABLE TA TODOS LOS D Oral for 90 Active clonazePAM 1 MG TOME FAUSTINA TABLETA DOS VECES AL D A CUANDO SEA NECESARIO Oral for 30 Active Vitamin D3 50 MCG (2000 UT) TOME FAUSTINA TAB FRAN TODOS LOS D Oral for 90 Active Simethicone Ultra Strength 1 80 MG Oral for 30 Active Acetaminophen Extra Strength 500 MG TOME FAUSTINA TABLETA POR V A ORAL CADA SEIS HORAS CUANDO SEA NECESARIO MAX 8 TABS DAILY Oral for 5 Active Vitamin E 45 MG (100 UNIT) Oral for 30 Active SOCIAL HISTORY Tobacco Use: [...] Problem Dysphagia, unspecified type (R13.10) Active confirmed [id number] Problem Abnormal barium swallow (R93.3) Active confirmed [id number] Problem Gastroesophageal reflux disease, unspecified whether esophagitis present (K21.9) Active confirmed [id number] Problem Presbyesophagus (K22.89) Active confirmed [id number] VITAL SIGNS BMI 36.77 kg/m2 03/13/2023 Blood pressure systolic 000 mm Hg 03/13/20 23 Blood pressure diastolic 00 mm Hg 023 Height 5 ft 5 in in 03/13/2023 Temperature 97.8 degrees Fahrenheit 03/13/20 23 Weight 221 lbs 03/13/2023 Encounters Encounter Location Date Provider Diagnosis [facility] [address] [place] [address] 03/13/2023 Larry Carnes Jr Dysphagia, unspecified type R13.10 ; Abnormal barium swallow R93.3 ; Gastroesophageal reflux disease, unspecified whether esophagitis present K21.9 and Presbyesophagus K22.89 ASSESSMENTS Encounter Date Diagnosis Assessment Notes Treatment Notes Treatment Clinical Notes 03/13/2023 Dysphagia, unspecifi ed type (ICD-10 - R13.10) Digestive diseases material was printed 03/13/2023 Abnormal barium swal low (ICD-10 - R93.3) 03/13/2023 Gastroesophageal ref lux disease, unspecified whether esophagitis present (ICD-10 - K21.9) 03/13/2023 Presbyesophagus (ICD -10 - K22.89) PLAN OF TREATMENT Treatment Notes Assessment Notes Dysphagia, unspecified type Digestive di seases material was printed Future Test Test Name Order Date UPPER GI ENDOSCOPY 03/13/2023 Next Appt Details Follow Up: prn, Reason: Progress Notes * Examination Category Sub-Category Detail Notes General Examination GENERAL APPEARANCE: in no ac nomi distress HEAD: normocephalic EYES: sclera non-icteric NECK/THYROID: no lymphadenopathy HEART: S1, S2 normal, no mu rmurs CHEST: normal shape and exp ansion LUNGS: clear to auscultatio n bilaterally ABDOMEN: soft, nontender, non distended, bowel sounds present, no organomegaly SKIN: anicteric EXTREMITIES: no clubbing, cyanosi s, or edema PSYCH: cognitive function i ntact ORAL CAVITY: mucosa moist
--- OUTSIDE RECORDS SUMMARY | 2024-07-01 10:55 | XMS_ITS | Encounter Summary ---
Author Organization [employer] Address [address] [facility] 7t [place] [address] Care Team Providers Care It Sales Consultant Name Role Phone Gemini Chavez MD Primary Care Provide r Reason for Visit * Reason Comments Med Refill Encounter Details Date Type Department Care Team ([facility] st Contact Info) Description 05/08/2024 Refill [facility] [address] [place], [place] [phone] Gemini Chavez MD [address] [place], [place] [phone] Class 1 obesity due to excess calories [...] Description 07/22/2024 11:00 AM EDT Office Visit [facility] [address] [place] [phone] Gemini Chavez MD [address] [place] [address] documented as of this encounter Visit Diagnoses Diagnosis Class 1 obesity due to excess calories with serious comorbidity and body mass index (BMI) of 33.0 to 33.9 in adult documented in this encounter Additional Health Concerns Assessment Noted Time PHQ-9 Depression Total Score: 0 09/03/19 24 9:55 AM EDT documented as of this encounter Care Teams It Sales Consultant Relationship Specialty Start Date End Date Gemini Chavez MD [address] [place] [address] PCP - General Family Medicine 01/21/18 [facility] 03/28/24 documented as of this encounter
--- OUTSIDE RECORDS SUMMARY | 2024-07-01 10:55 | XMS_ITS | Encounter Summary ---
Author Organization [employer] Address [address] [facility] 7t [place] [address] Care Team Providers Care Corporate Associate Name Role Phone Gemini Chavez MD Primary Care Provide r Reason for Visit * Reason Onset Date Comments Referral 03/14/2023 Encounter Details Date Type Department Care Team ([facility] st Contact Info) Description 03/14/2023 Telephone [facility] [address] [place], [place] [phone] Gemini Chavez MD [address] [place] [address] Referral Social History Tobacco Use Types Packs/Day [...] 11:00 AM EDT Office Visit [facility] [address] [place] [address] Gemini Chavez MD [address] [place] [address] documented as of this encounter Visit Diagnoses Not on filedocumented in this encounter Additional Health Concerns Assessment Noted Time PHQ-9 Depression Total Score: 6 05/16/19 23 1:42 PM EST documented as of this encounter Care Teams Corporate Associate Relationship Specialty Start Date End Date Gemini Chavez MD [address] [place] [address] PCP - General Family Medicine 01/21/18 [employer] 03/28/24 documented as of this encounter
[2024-07-01 14:09] VITALS: BP 183/102; PULSE 76; RESP 20; TEMP 37.1; O2SAT 97
--- NOTE | 2024-07-01 14:10 | MHC.EDTECH ---
vital signs taken and documented . Upper right forearm 183/102 repeat BP upper left forearm 199/110. Results reported to triage provider Ysabel
--- NOTE | 2024-07-01 14:14 | MHC.EDTECH ---
Assisted patient back to waiting room chair after completing vital signs. Patient with unsteady gait and complaints of dizziness . GAYLE barrera
== END 2024-07-01 19:50 | disposition left against medical advice (07) ==
PROVIDERS: Emergency Provider Emergency Medicine; PCP Internal Medicine
DX: R42 Dizziness and giddiness (principal); I48.91 Unspecified atrial fibrillation; I10 Essential (primary) hypertension; Z79.899 Other long term (current) drug therapy
CPT/HCPCS: 36415; 80053; 84484; 85025; 93005; 99281; 99283

== ENCOUNTER → 2024-07-01 05:53 | Outpatient (BNV) | payer OTHER, SELFPAY | PROVIDERS: Emergency Provider Emergency Medicine; PCP Internal Medicine; Visit Provider Internal Medicine | DX: I48.91 Unspecified atrial fibrillation (principal); I49.3 Ventricular premature depolarization | CPT/HCPCS: 93010 ==

== ENCOUNTER 2024-07-15 08:48 | Outpatient (AMB) | payer OTHER, SELFPAY ==
[2024-07-15 09:14] VITALS: BP 92/62; PULSE 67; O2SAT 98; BMI 33.6
--- NOTE | 2024-07-15 09:14 | A.OFFVIS_ITS ---
Vital Signs 07/15/24 09:14 Height 5 ft 6 in Weight 208 lb 5.389 oz BMI 33.6 BP 92/62 Blood Pressure Location Lt brachial Position Sitting Pulse 67 Pulse Source Pulse Oximeter Pulse Oximetry (%) 98 Oxygen Delivery Method Room Air Intake Visit Reasons: COPD Intake Note: pt is here for follow up and state he is dizzy all the time but breathing is stable Home Health Care Provider Required: No Allergies Iodinated Contrast Media [CONTRAST, IV] Allergy (Unknown, Verified 07/15/24 09:30) HIVES kiwi [KIWI] Allergy (Unknown, Verified 07/15/24 09:30) THROAT SWELLING Medication List - Last Reconciled 07/15/24 by Curt Marroquin MD albuterol sulfate 3 mg inhalation QID PRN albuterol sulfate 90 mcg/actuation (Ventolin HFA) 2 puffs PO Q6H PRN apixaban 5 mg PO BID bisacodyl (Dulcolax (bisacodyl)) 10 mg (2 x 5 mg) PO BEDTIME 2 days cholecalciferol (vitamin D3) 50 mcg PO DAILY clonazepam 1 mg PO BID PRN diclofenac sodium 1% 2 grams topical QID epinephrine (EpiPen 2-Blaise) 0.3 mg (0.3 mL) IM Q4H PRN fluticasone propion-salmeterol 250-50 mcg/dose (Wixela Inhub) 1 ea PO BID furosemide 40 mg PO Q2D hydrochlorothiazide 12.5 mg PO DAILY hydroxyzine pamoate 25 mg PO BID PRN L.acidoph,saliva-B.bif-S.therm 175 mg (Acidophilus Probiotic Blend) 1 cap PO DAILY levothyroxine 100 mcg PO DAILY qbanho-zdyxiuja-kurqroh 36,000-114,000- 180,000 unit (Creon) 2 caps PO QID lisinopril 40 mg PO DAILY meclizine 25 mg PO DAILY metformin 500 mg PO BID metoprolol succinate ER 200 mg PO DAILY pantoprazole 40 mg PO DAILY rosuvastatin 40 mg PO DAILY semaglutide (weight loss) (Wegovy) mg subcut sennosides (Senna Laxative) 17.2 mg (2 x 8.6 mg) PO BEDTIME simethicone 180 mg PO QID 30 days umeclidinium 62.5 mcg/actuation (Incruse Ellipta) 1 inh inhalation DAILY vitamin E (dl, acetate) 45 mg PO DAILY zolpidem 10 mg PO BEDTIME PRN Do you need a note to return to daycare/school/sports/work: No HPI HPI COPD: Details: This 68 years old very pleasant gentleman with history of asthma/COPD syndrome, and many other comorbidities comes for his follow-up after 4 months. Breathing elias he is doing well and remains stable. However about a month ago he went to the emergency room for dizziness and other nonspecific symptoms, he had high blood pressure and also serous otitis, . Antihypertensive meds were adjusted and for the otitis he was advised to . Use home remedies He somewhat better but keeps on gaining weight . He had been started on WAGOVY but is not able to get a not, will need to be started on alternate agent. [facility] Medical History Pre-op examination Colon cancer screening Hoarseness Dysphagia Throat disorder Bronchitis CHF (congestive heart failure) Afib Allergic rhinitis COPD (chronic obstructive pulmonary disease) CE (obstructive sleep apnea) Obesity (BMI 30-39.9) Hypothyroid Anxiety Palpitation HTN (hypertension) Surgical History Hx of umbilical hernia repair History of surgery on arm Hx of eye surgery Hx of colonoscopy Hx of knee surgery Hx of tonsillectomy Family History Family/Other No problems noted. Social History Household Members: None Housing: Apartment Do you presently have visiting nurse or other home services: Yes Alcohol intake: former Patient Tobacco Use Status: Former Tobacco user Advance Directives Date on File: 08/11/23 service: No Review of Systems Const All systems reviewed & are unremarkable except as noted in HPI and below Eyes Reports no additional complaints ENT Reports nasal congestion (Mild intermittent) Card Denies chest pain, Reports irregular heart rhythm (Atrial fib) and Denies leg edema Resp Reports as per HPI GI Reports no additional complaints Reports no additional complaints Musc Reports abnormal gait (Uses cane), Reports back pain and Reports arthralgias Skin/Breast Reports system reviewed and no additional complaints, except as documented Neuro Reports no additional complaints and Reports abnormal gait (Uses cane) Psych Reports no additional complaints Physical Exam Const General: comfortable, no acute distress, alert and awake Orientation/consciousness: patient oriented x3 HEENT Head: Yes normal to inspection General nose exam: No nasal polyps present and No nasal discharge present Face and sinus: Yes sinuses nontender Mouth: oropharynx normal Throat: Yes posterior oropharynx normal Eyes General: appearance normal, both eyes and all related structures Neck Neck: Yes normal visual inspection, Yes no lymphadenopathy, Yes trachea midline and Yes no JVD Thyroid: Thyroid normal Chest Chest palpation & inspection: normal inspection of the chest, normal palpation of entire chest wall and no tenderness Resp Other: Percussion note is resonant, breath sounds are distant with prolonged expiratory phase. No wheezes or rhonchi are heard. Cardio Palpation: normal PMI Rate: regular rate Rhythm: regular rhythm Heart sounds: no gallops and no murmurs GI Inspection: Yes other (Abdomen is obese and protuberant) Palpation (GI): Soft to palpation, nontender, No hepatosplenomegaly present and no masses Auscultation: normal bowel sounds Back/Spine/Pelvis Thoracic/Lumbar Spine: thoracic and lumbar spine normal to inspection and thoraco-lumbar ROM limited Skin General skin exam: no rashes or lesions noted Neuro General: patient oriented x3 and no focal motor deficits Cranial nerves: Yes CN's II-XII intact bilaterally Extrem General: Yes normal to inspection, Yes no clubbing, cyanosis or edema and Yes no calf tenderness Psych Appearance: grossly normal and well kempt Speech and movement: Normal speech and movement present Assessment & Plan Assessment & Plan (1) Obesity (BMI 30-39.9): Comment: Discussed about his weight, he is not well motivated to lose weight. Also cannot walk much . He has actually put on some weight lately, this seems to be due to lack of activity and exercise. HE HAS BEEN STARTED ON WAGOVY INJECTIONS BUT NOW, PER INSURANCE WOULD NEED TO HAVE ANOTHER ALTERNATE AGENT. Code(s): E66.9 - Obesity, unspecified Category: Medical Plan: Patient is aware of this issue and would try to watch his diet, Hoping to start on Zepbound therapy . (2) CE (obstructive sleep apnea): Comment: Currently untreated. He lost his machine because of noncompliance. He claims that he sleeps okay. He is not going to be able to use the CPAP. Code(s): G47.33 - Obstructive sleep apnea (adult) (pediatric) Category: Medical Plan: Continue to sleep in lateral, position as much as possible Continue with weight reduction program. (3) COPD (chronic obstructive pulmonary disease): Comment: Elyk-yg-mtkukuid ASTHMA/COPD . Generally well controlled, Code(s): J44.9 - Chronic obstructive pulmonary disease, unspecified Category: Medical Plan: Continue Wixela. 250-51 inhalation b.i.d. Incruse Ellipta 1 inhalation daily Albuterol HFA 2 puffs Q 4-6 hours p.r.n. Alternately he may use albuterol solution in the nebulizer Q 6 hours p.r.n. when at home. Coding Level of Care Code Est Pt Level 3 (50545) Diagnoses Obesity (BMI 30-39.9) E66.9 CE (obstructive sleep apnea) G47.33 COPD (chronic obstructive pulmonary disease) J44.9
--- OUTSIDE RECORDS SUMMARY | 2024-07-15 09:28 | XMS_ITS | Encounter Summary ---
Author Organization [employer] Address [address] [facility] 7t [place] [address] Care Team Providers Care Compilation Clerk Name Role Phone Gemini Chavez MD Primary Care Provide r Reason for Visit * Reason Comments Med Refill Encounter Details Date Type Department Care Team ([facility] st Contact Info) Description 02/12/2024 Refill [facility] [address] [place], [place] [phone] Gemini Chavez MD [address] [place], [place] [phone] Prediabetes Social History Tobacco Use Types Packs/Day [...] Description 07/22/2024 11:00 AM EDT Office Visit [facility] [address] [place] [phone] Gemini Chavez MD [address] [place] [address] documented as of this encounter Visit Diagnoses Diagnosis Prediabetes Other abnormal glucose documented in this encounter Additional Health Concerns Assessment Noted Time PHQ-9 Depression Total Score: 0 09/03/19 24 9:55 AM EDT documented as of this encounter Care Teams Compilation Clerk Relationship Specialty Start Date End Date Gemini Chavez MD [address] [place] [address] PCP - General Family Medicine 01/21/18 [employer] 03/28/24 documented as of this encounter
--- OUTSIDE RECORDS SUMMARY | 2024-07-15 09:28 | XMS_ITS | Encounter Summary ---
Author Organization [employer] Address [address] [facility] 7t [place] [address] Care Team Providers Care Telephone Answering Service Operator Name Role Phone Gemini Chavez MD Primary Care Provide r Reason for Visit * Reason Comments Med Refill Encounter Details Date Type Department Care Team ([facility] st Contact Info) Description 02/12/2024 Refill [facility] [address] [place], [place] [phone] Gemini Chavez MD [address] [place], [place] [phone] Prediabetes Social History Tobacco Use Types Packs/Day [...] Description 07/22/2024 11:00 AM EDT Office Visit [facility] [address] [place] [address] Gemini Chavez MD [address] [place] [address] documented as of this encounter Visit Diagnoses Diagnosis Prediabetes Other abnormal glucose documented in this encounter Additional Health Concerns Assessment Noted Time PHQ-9 Depression Total Score: 0 09/03/19 24 9:55 AM EDT documented as of this encounter Care Teams Telephone Answering Service Operator Relationship Specialty Start Date End Date Gemini Chavez MD [address] [place] [phone] PCP - General Family Medicine 01/21/18 [employer] 03/28/24 documented as of this encounter
--- OUTSIDE RECORDS SUMMARY | 2024-07-15 09:28 | XMS_ITS | Encounter Summary ---
Author Organization [employer] Address [address] [facility] 7t [place] [address] Care Team Providers Care Human Resource Manager Name Role Phone Gemini Chavez MD Primary Care Provide r Reason for Visit * Reason Onset Date Comments Appointment Request 08/21/2022 Encounter Details Date Type Department Care Team ([facility] st Contact Info) Description 08/21/2022 Telephone [facility]INE [address] [place], [place] [phone] Gemini Chavez MD [address] [place] [address] Appointment Request Social History Tobacco Use Types [...] an family emergency. Please contact pt at [phone] documented in this encounter Plan of Treatment Upcoming Encounters Date Type Department Care Team (Late st Contact Info) Description 07/22/2024 11:00 AM EDT Office Visit [facility] [address] [place] [address] Gemini Chavez MD [address] [place] [address] documented as of this encounter Visit Diagnoses Not on filedocumented in this encounter Additional Health Concerns Assessment Noted Time PHQ-9 Depression Total Score: 6 05/16/19 23 1:42 PM EST documented as of this encounter Care Teams Human Resource Manager Relationship Specialty Start Date End Date Gemini Chavez MD [address] [place] [address] PCP - General Family Medicine 01/21/18 [employer] 03/28/24 documented as of this encounter
--- OUTSIDE RECORDS SUMMARY | 2024-07-15 09:28 | XMS_ITS | Encounter Summary ---
Author Organization [employer] [facility] Address [address] [facility] 7t [place] [address] Care Team Providers Care Apprentice Cosmetologist Name Role Phone Gemini Chavez MD Primary Care Provide r Reason for Visit * Reason Comments Med Change Request Encounter Details Date Type Department Care Team (Late st Contact Info) Description 01/08/2023 Refill [facility] 230 [place], [place] [phone] Marsha Menjivar MD [address] [place], [place] [phone] Chronic obstructive pulmonary disease, unspecified COPD type [...] generated for Nebulizer signed and faxed to [facility]. documented in this encounter Plan of Treatment Upcoming Encounters Date Type Department Care Team (Late st Contact Info) Description 07/22/2024 11:00 AM EDT Office Visit [facility] [address] [place] [address] Gemini Chavez MD [address] [place] [address] documented as of this encounter Visit Diagnoses Diagnosis Chronic obstructive pulmonary disease, unspecified COPD type (CMS/HCC) documented in this encounter Additional Health Concerns Assessment Noted Time PHQ-9 Depression Total Score: 6 05/16/19 23 1:42 PM EST documented as of this encounter Care Teams Apprentice Cosmetologist Relationship Specialty Start Date End Date Gemini Chavez MD [address] [place] [address] PCP - General Family Medicine 01/21/18 [employer] 03/28/24 documented as of this encounter
--- OUTSIDE RECORDS SUMMARY | 2024-07-15 09:28 | XMS_ITS ---
Author Organization [facility] Address [address] [place] [address] Care Team Providers Care Registered Vascular Technologist (Rvt) Name Role Phone Phillip Sousa, Gemini Primary Care Provider Larry Angeles Jr Unavailable Katherine FORTE, Cipriaon Unavailable Unavailable REASON FOR VISIT dysphagia Problems Problem Type SNOMED Code ICD Code Onset Dates Problem Status W/U Status Risk Notes Problem Dysphagia (06682177) Dysphagia (R13.10) Active confirmed Encounters Encounter Location Date Provider Diagnosis [facility] Outpatient [address] [place], [place] [phone] 04/01/2023 Larry Carnes Jr Dysphagia R13.10 and Abn findings-GI tract R93.3 Assessments Encounter Date Diagnosis (ICD Code) Assessment Notes Treatment Notes Treatment Clinical Notes Section Notes 04/01/2023 Dysphagia (ICD-10 - R13.10) 04/01/2023 Abn findings-GI tract (ICD-10 - R93.3) Plan Of Treatment No Information Progress Notes * BEN DAILYIODOB: 1955 (68 yo M)Acc No.[id number]:04/01/2023 EGD/MAC Patient:?KOBE DAILY Provider:?Larry Carnes MD :1955???Age:67 Y???Sex:Male Jose Manuel e:04/01/2023 Address:[address] [place], [place] [phone] Pcp:Gemini Fisher M.D. Subjective: * Chief Complaints: * ???1. Dysphagia. * Medical History:? Objective: * Vitals:? Assessment: * Assessment: 1.?Dysphagia - R13.10 (Prima ry)???2.?Abn findings-GI tract - R93.3??? Plan: * Treatment: * Procedure Codes:?79391 UPPER GI ENDOSCOPY, BIOPSY * * The named appointment provid er may or may not be the originator of this progress note, and it is not deemed complete until electronically signed by the appointment provider. Sign off status: Pending * Provider:?Larry Carnes MD Date:?1 06/01/2022 Generated for Dutch rosales/Aylin/eTransmitting on:?07/15/2024 09:28 AM EST
--- OUTSIDE RECORDS SUMMARY | 2024-07-15 09:28 | XMS_ITS | Encounter Summary ---
Author Organization [employer] Address [address] [facility] 7t [place] [address] Care Team Providers Care Transportation Aid Name Role Phone Gemini Chavez MD Primary Care Provide r Reason for Visit * Reason Comments Pre-visit Planning (Unable to reach for PVP screening, LVM) Encounter Details Date Type Department Care Team ([facility] st Contact Info) Description 07/15/2024 Patient Outreach [facility] MED[facility] [address] [place] [address] Gemini Chavez MD [address] [place] [address] Pre-visit Planning ((Unable to reach for PVP screening, LVM)) Social History Tobacco Use Types Packs/Day Years [...] AM EDT documented as of this encounter Progress Notes * Ximena Mathur - 07/15/2024 9:19 AM EST CC Ximena. Placed outbound call to patient to complete pre-visit planning. No answer at this time. Patient name and were not confirmed. CC left voicemail requesting return call. Direct contact information provided. documented in this encounter Plan of Treatment Upcoming Encounters Date Type Department Care Team (Late st Contact Info) Description 07/22/2024 11:00 AM EDT Office Visit [facility] [address] [place] [address] Gemini Chavez MD [address] [place] [address] documented as of this encounter Visit Diagnoses Not on filedocumented in this encounter Additional Health Concerns Assessment Noted Time PHQ-9 Depression Total Score: 0 09/03/19 24 9:55 AM EDT documented as of this encounter Care Teams Transportation Aid Relationship Specialty Start Date End Date Gemini Chavez MD [address] [place] [address] PCP - General Family Medicine 01/21/18 [employer] 03/28/24 documented as of this encounter
--- OUTSIDE RECORDS SUMMARY | 2024-07-15 09:28 | XMS_ITS | Patient Health Record ---
Author Organization [facility] Address [address] [place] [address] Care Team Providers Care Tow Truck Driver Name Role Phone Gemini Fisher M.D. Primary Care Provider Larry Angeles Jr Unavailable Katherine FORTE, Cipriano Unavailable Unavailable Allergies No Known Allergies Reason For Referral No Information Medications Medication SIG (Take, Route, Frequency, Duration) Notes Start Date End Date Status Creon [id number] UNIT TOME 2 C PSULAS POR V [...] TIME EACH DAY Inhalation for 30 Active Social History Tobacco Use: Social History Observation Description Date Details (start date - stop date) Never Smoker NA - NA Tobacco Use/Smoking Question Answer Notes Patient is a nonsmoker Alcohol Screen Question Answer Notes Did you have a drink containing alcohol in the p ast year? No Points 0 Interpretation Negative Problems Problem Type SNOMED Code ICD Code Onset Dates Problem Status W/U Status Risk Notes Problem Dysphagia (62741915) Dysphagia (R13.10) Active confirmed Problem 46752182 Dysphagia, unspecified type (R13.10) Active confirmed Problem 308725043 Abnormal barium swallow (R93.3) Active confirmed Problem 993398110 Gastroesophageal reflux disease, unspecified whether esophagitis present (K21.9) Active confirmed Problem 399646670 Presbyesophagus (K22.89) Active confirmed Plan Of Treatment Future Test Test Name Order Date UPPER GI ENDOSCOPY 03/13/2023 Insurance Providers Payer Name Payer Address Payer Phone Subscriber Number Group Number Insured Name Patient Relationship to Insured Coverage Start Date Coverage End Date [facility] [address] Attn Claims CLIFF Perez [id number] KOBE DAILY Self - patient is the insured Medical (General) History Medical History History ICD Code CE/COPD hypertension Fatty liver pulmonary nodule Elevated BMI Atrial fibrillation Hypothyroidism Gastroesophageal reflux disease/dysphagi a Surgical History Surgery Date(Month/Year) Cataract surgery Umbilical hernia repair Tonsillectomy
--- OUTSIDE RECORDS SUMMARY | 2024-07-15 09:28 | XMS_ITS | Encounter Summary ---
Author Organization [employer] Address [address] [facility] 7t [place] [address] Care Team Providers Care Tombstone Polisher Name Role Phone Gemini Chavez MD Primary Care Provide r Reason for Visit * Reason Comments Med Change Request Encounter Details Date Type Department Care Team ([facility] st Contact Info) Description 02/04/2023 Refill [facility] & PEDS [address] [place], [place] [phone] Marsha Menjivar MD [address] [place] [address] Primary hypertension Social History Tobacco Use Types [...] - 03/03/2023 11:46 AM EDT Sent to [employer] * Telephone Encounter - Jacqueline [...] Description 07/22/2024 11:00 AM EDT Office Visit [facility] MEDICINE [address] [place] [address] Gemini Chavez MD [address] [place] [address] documented as of this encounter Visit Diagnoses Diagnosis Primary hypertension Unspecified essential hypertension documented in this encounter Additional Health Concerns Assessment Noted Time PHQ-9 Depression Total Score: 6 05/16/19 23 1:42 PM EST documented as of this encounter Care Teams Tombstone Polisher Relationship Specialty Start Date End Date Gemini Chavez MD [address] [place] [address] PCP - General Family Medicine 01/21/18 [employer] 03/28/24 documented as of this encounter
--- OUTSIDE RECORDS SUMMARY | 2024-07-15 09:28 | XMS_ITS | Encounter Summary ---
Author Organization [employer] Address [address] [facility] 7t [place] [address] Care Team Providers Care Community Nutrition Educator Name Role Phone Gemini Chavez MD Primary Care Provide r Reason for Visit * Reason Onset Date Comments Prior Authorization 06/10/2024 Encounter Details Date Type Department Care Team ([facility] st Contact Info) Description 06/10/2024 Telephone [facility] [address] [place], [place] [phone] Gemini Chavez MD [address] [place] [address] Prior Authorization Social History Tobacco Use Types [...] is required on PA. Contact pt at [phone] (macedonian) * Telephone Encounter - Rohit Cruz - 06/10/2024 9:00 AM EST Tc from pt requesting a PA for Tirzepatide-Weight Management (Zepbound) 2.5 MG/0.5ML solution auto-injector because pt stated that he received a letter stating that PA got denied. Contact pt: [phone] (Hungarian) documented in this encounter Plan of Treatment Upcoming Encounters Date Type Department Care Team (Late st Contact Info) Description 07/22/2024 11:00 AM EDT Office Visit [facility] [address] [place], [place] [phone] Gemini Chavez MD [address] [place] [address] documented as of this encounter Visit Diagnoses Not on filedocumented in this encounter Additional Health Concerns Assessment Noted Time PHQ-9 Depression Total Score: 0 09/03/19 9:55 AM EDT documented as of this encounter Care Teams Community Nutrition Educator Relationship Specialty Start Date End Date Gemini Chavez MD [address] [place] [address] PCP - General Family Medicine 01/21/18 [employer] 03/28/24 documented as of this encounter
--- OUTSIDE RECORDS SUMMARY | 2024-07-15 09:28 | XMS_ITS | Encounter Summary ---
Author Organization [employer] Address [address] [facility] 7t [place] [address] Care Team Providers Care Mechanical Press Operator Name Role Phone Gemini Chavez MD Primary Care Provide r Reason for Visit * Reason Comments Med Refill Encounter Details Date Type Department Care Team ([facility] st Contact Info) Description 05/14/2024 Refill [facility] MED[facility] [address] [place], [place] [phone] Gemini Chavez MD [address] [place], [place] [phone] Class 1 obesity due to excess calories [...] 07/22/2024 11:00 AM EDT Office Visit [facility] [address] [place] [address] Gemini Chavez MD [address] [place] [address] documented as of this encounter Visit Diagnoses Diagnosis Class 1 obesity due to excess calories with serious comorbidity and body mass index (BMI) of 33.0 to 33.9 in adult documented in this encounter Additional Health Concerns Assessment Noted Time PHQ-9 Depression Total Score: 0 09/03/19 24 9:55 AM EDT documented as of this encounter Care Teams Mechanical Press Operator Relationship Specialty Start Date End Date Gemini Chavez MD [address] [place] [address] PCP - General Family Medicine 01/21/18 [employer] 03/28/24 documented as of this encounter
--- OUTSIDE RECORDS SUMMARY | 2024-07-15 09:28 | XMS_ITS | Encounter Summary ---
Author Organization [facility] [facility] Address [address] [facility] 7t [place] [address] Care Team Providers Care Sexual Health Physician Name Role Phone Gemini Chavez MD Primary Care Provide r Encounter Details Date Type Department Care Team (Late st Contact Info) Description 01/22/2023 Orders Only [facility]INE [address] [place], [place] [phone] Gemini Chavez MD [address] [place], [place] [phone] COPD with asthma ([facility] Social History Tobacco Use Types Packs/Day Years [...] Description 07/22/2024 11:00 AM EDT Office Visit [facility] [address] [place] [phone] Gemini Chavez MD [address] [place] [address] documented as of this encounter Visit Diagnoses Diagnosis COPD with asthma ([facility]) documented in this encounter Additional Health Concerns Assessment Noted Time PHQ-9 Depression Total Score: 6 05/16/19 23 1:42 PM EST documented as of this encounter Care Teams Sexual Health Physician Relationship Specialty Start Date End Date Gemini Chavez MD [address] [place] [address] PCP - General Family Medicine 01/21/18 [employer] 03/28/24 documented as of this encounter
--- OUTSIDE RECORDS SUMMARY | 2024-07-15 09:28 | XMS_ITS | Clinical Summary ---
Author Organization [address] [facility] Address [address] [place] [address] Phone Care Team Providers Care Video Production Assistant Name Role Phone Gemini Chavez MD Primary Care Provide r Allergies No known active allergies Encounters Date Type Department Care Team Description 06/02/2024 1:45 PM EST Office Visit [facility] [address] [address] Gallito Hancokc DPM Ingrowing nail (Primary Dx); Type II [...] Description 09/01/2024 1:00 PM EDT Office Visit [facility] [address] [address] Gallito Hancock DPM [address] [address] Health Maintenance Due Date Last [...] patient's age to complete [place] [address] [employer] MEDICARE Member Subscriber Plan / Payer (Ef fective 2022-Present) Name:Min Rees Relation to Subscriber:Self Name:Min Rees Payer ID:[id number] Group ID:[id number] Type:Not on file Address: [place] [address] [place] [id number] Care Teams Video Production Assistant Relationship Specialty Start Date End Date Gemini Chavez MD [address] [place] [phone] PCP - General 04/24/23
--- OUTSIDE RECORDS SUMMARY | 2024-07-15 09:28 | XMS_ITS | Encounter Summary ---
Author Organization [employer] Address [address] [facility] 7t [place] [address] Care Team Providers Care Investor Relations Analyst Name Role Phone Gemini Chavez MD Primary Care Provide r Reason for Visit * Reason Comments Med Refill Encounter Details Date Type Department Care Team ([facility] st Contact Info) Description 03/03/2024 Refill [facility] [address] [place], [place] [phone] Gemini Chavez MD [address] [place], [place] [phone] Social History Tobacco Use Types Packs/Day Years [...] Upcoming Encounters Date Type Department Care Team ([facility] st Contact Info) Description 07/22/2024 11:00 AM EDT Office Visit [facility] [address] [place] [address] Gemini Chavez MD [address] [place] [address] documented as of this encounter Visit Diagnoses Not on filedocumented in this encounter Additional Health Concerns Assessment Noted Time PHQ-9 Depression Total Score: 0 09/03/19 24 9:55 AM EDT documented as of this encounter Care Teams Investor Relations Analyst Relationship Specialty Start Date End Date Gemini Chavez MD [address] [place] [address] PCP - General Family Medicine 01/21/18 [employer] 03/28/24 documented as of this encounter
--- OUTSIDE RECORDS SUMMARY | 2024-07-15 09:28 | XMS_ITS | Encounter Summary ---
Author Organization [employer] [facility] Address [address] [place] [address] 7t [place] [address] Care Team Providers Care Diesel Powerplant Mechanic Name Role Phone Gemini Chavez MD Primary Care Provide r Reason for Visit * Reason Comments Med Refill Encounter Details Date Type Department Care Team (Late st Contact Info) Description 10/07/2022 Refill [facility] MED[facility] [address] [place] [phone] Gemini Chavez MD [address] [place], [place] [phone] Chronic systolic heart failure (CMS/HCC) Social History [...] Description 07/22/2024 11:00 AM EDT Office Visit [facility] [address] [place] [phone] Gemini Chavez MD [address] [place], [place] [phone] documented as of this encounter Visit Diagnoses Diagnosis Chronic systolic heart failure (CMS/HCC) Chronic systolic heart failure documented in this encounter Additional Health Concerns Assessment Noted Time PHQ-9 Depression Total Score: 6 05/16/19 23 1:42 PM EST documented as of this encounter Care Teams Diesel Powerplant Mechanic Relationship Specialty Start Date End Date Gemini Chavez MD [address] [place] [address] PCP - General Family Medicine 01/21/18 [employer] 03/28/24 documented as of this encounter
--- OUTSIDE RECORDS SUMMARY | 2024-07-15 09:28 | XMS_ITS | Encounter Summary ---
Author Organization [employer] [facility] Address [address] [facility] 7t [place] [address] Care Team Providers Care Architecture Faculty Member Name Role Phone Gemini Chavez MD Primary Care Provide r Reason for Visit * Reason Comments Med Refill Encounter Details Date Type Department Care Team (Late st Contact Info) Description 09/08/2022 Refill [facility] MED & PEDS [address] [place], [place] [phone] Umer Sears MD [address] [place], [place] [phone] Seasonal allergies Social History Tobacco Use Types [...] 07/22/2024 11:00 AM EDT Office Visit [facility] MEDICINE [address] [place], [place] [phone] Gemini Chvaez MD [address] [place], [place] [phone] documented as of this encounter Visit Diagnoses Diagnosis Seasonal allergies Allergic rhinitis, cause unspecified documented in this encounter Additional Health Concerns Assessment Noted Time PHQ-9 Depression Total Score: 6 05/16/19 23 1:42 PM EST documented as of this encounter Care Teams Architecture Faculty Member Relationship Specialty Start Date End Date Gemini Chavez MD [address] [place] [address] PCP - General Family Medicine 01/21/18 [employer] 03/28/24 documented as of this encounter
--- OUTSIDE RECORDS SUMMARY | 2024-07-15 09:28 | XMS_ITS | Clinical Summary ---
Author Organization [employer] [facility] Address [address] [place] [address] 7[address] [place] [address] Care Team Providers Care System Configuration Specialist Name Role Phone Gemini Chavez MD [...] ANAPHYLAXIS AND CALL [phone] Active Creon [id number] units capsule delayed-release particles capsule Take 2 capsules by mouth 4 times daily. ADMINISTER WITH MEALS AND/OR SNACKS 2022 Active Fluticasone-Salmetero l 250-50 MCG/ACT aerosol powder Inhale 1 puff 2 times daily. 2023 Active Umeclidinium Atco (Incruse Ellipta) 62.5 MCG/ACT aerosol powderIndications:Chr onic [...] evening meal. 60 tablet 11 11/10 Active Semaglutide-Weight Management (Wegovy) 1 MG/0.5ML solution [...] (BMI) of 38.0 to 38.9 in adult ([facility]) Inject 0.5 mL (2.5 mg) under the skin 1 (one) time per week. 2 mL 2023 Active albuterol (2.5 MG/3ML) 0.083% nebulizer solution USE 1 VIAL VIA NEBULIZER KINJAL GALVAN AL СЕРГЕЙ 150 mL 3 2024 Active lisinopril 40 MG tabletIndications:Zaina singleton hypertension TAKE 1 TABLET BY MOUTH EVERY MORNING 90 tablet 2024 Active rosuvastatin (Crestor) 40 MG tabletIndications:Pur e hypercholesterolemia TOME 1 TABLETA POR VIA ORAL TODOS [place] 90 tablet 1 2024 Active amLODIPine (Norvasc) 2.5 MG tabletIndications:Zaina singleton hypertension Take 2 tablets (5 mg) by mouth Once per day. 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-Dr Ely's # [phone] office and spoke w CLIFF rodriguez with [...] atherosclerosis 10/31/2011 Hypertension 10/31/2011 Assessment & Plan (07/05/2024 8:58 AM EST): -continue hydrochlorothiazide 12.5 mg daily -continue metoprolol XL 200 daily -continue furosemide 40mg mg daily -start amlodipine 2.5mg daily 07/05/24 -low NA diet and lifestyle modification discussed -continue home BP checks Pt has follow up already scheduled with PCP for 07/22/24 Assessment & Plan (04/20/2024 4:46 PM EST): [...] Encounters Date Type Department Care Team Description 07/15/2024 Patient Outreach [facility] [address] [place] [phone] Gemini Chavez MD Pre-visit Planning ((Unable to reach for PVP screening, LVM)) 07/12/2024 11:00 AM EST Clinical Support [address] [address] Elyssa Barajas, GAYLE Dietary counseling; Exercise counseling; Primary hypertension 07/12/2024 Travel 07/05/2024 9:00 AM EST Office Visit [facility] [address] [place] [address] Alexandra Knox MD Primary hypertension (Primary Dx); Elevated blood pressure reading 07/02/2024 Refill [facility] [address] [place] [phone] Gemini Chavez MD Pure hypercholesterolemia 06/18/2024 Orders Only [facility] [address] [facility] [place] [address] Gemini Chavez MD 06/16/2024 Orders Only [facility] External Provider, [facility] 06/10/2024 Telephone [facility] [address] [facility] [place] [address] Gemini Chavez MD Prior Authorization 06/09/2024 Refill [facility] [address] [facility] [place] [address] Gemini Ochoa MD Primary hypertension 06/03/2024 Refill [facility] [address] [facility] [place] [address] Gemini Chavez MD 05/26/2024 Telephone [facility] [address] [facility] [place] [address] Gemini Chavez MD Prior Authorization ([facility] for Zepbound) 05/14/2024 Refill [facility] [address] [facility] [place] [address] Gemini Chavez MD Class 1 obesity due to excess calories with serious comorbidity and body mass index (BMI) of 33.0 to 33.9 in adult 05/11/2024 Orders Only [facility] External Provider, [facility] 05/11/2024 Telephone [facility] [address] [place] [address] Geimni Chavez MD medication denied 05/10/2024 Orders Only [facility] [address] [facility] [place] [address] Gemini Chavez MD Stage 3 chronic kidney disease, unspecified whether stage 3a or 3b CKD (CMS/HCC) (Primary Dx); Class 2 severe obesity due to excess calories with serious comorbidity and body mass index (BMI) of 38.0 to 38.9 in adult (CMS/HCC) 05/08/2024 Refill [facility] [address] [facility] [place] [address] Gemini Chavez MD Class 1 obesity due to excess calories with serious comorbidity and body mass index (BMI) of 33.0 to 33.9 in adult 05/04/2024 Orders Only [facility] EXTERNAL DATA DEPARTMENT Provider, Generic External Data 05/03/2024 Orders Only [facility] EXTERNAL DATA DEPARTMENT Provider, Generic External Data 04/30/[address] [address] Gemini Chavez MD FYI 04/27/[address] [address] Gemini Chavez MD Nurse Triage; Follow up InStead visit 04/27/24 04/27/[address] [address] Gemini Chavez MD FYI 04/22/2024 Orders Only [address] [address] Gemini Chavez MD Viral upper respiratory tract infection (Primary Dx) 04/22/[address] [address] Gemini Chavez MD Medication Question 04/21/[address] [address] Gemini Chavez MD Fyi 04/20/[address] [address] Christy Diaz RN URI s/s 04/16/2024 10:45 AM EST Office Visit [address] [address] Gemini Chavez MD Stage 3 chronic kidney disease, unspecified whether stage 3a or 3b CKD (CMS/HCC) (Primary Dx); Prediabetes; Primary hypertension 04/16/[address] [address] Roxy Haley RN Med Refill (Wegovy notification) 04/16/2024 Travel from Last 3 Months Immunizations Name Administration Dates Next Due Influenza High-dose Quadriva lent Preservative Free 01/23/2022 Influenza Injectable Quadriv alant Preservative Free IIV4 MDCK 02/13/2019 Influenza Quadrivalent Adjuvanted 01/18/2023 Influenza injectable quadriv alent preservative free 02/13/2021,02/04/2020,02/09/2018,01/01,02/08/2016 Influenza, High Dose Seasona l, Preservative Free 01/05/2024 Influenza, Injectable, MDCK, preservative free 02/03/2015 Influenza, Split (incl. alexia fied surface antigen) 01/24/2015,05/28/2012 Moderna Covid-19 Vaccine 12+ 04/11/2021,08/23/19,07/25/2020 Moderna Covid-19 Vaccine 6+ Bivalent 04/24/2022 Pfizer [...] Sign Reading Time Taken Comments Blood Pressure 170/94 07/12/2024 11:49 AM EST Pulse 88 07/12/2024 11:48 AM EST Temperature 36.7 ??C (98 ??F) 07/05/2024 8:40 AM EST Respiratory Rate 20 07/12/2024 11:48 AM EST Oxygen Saturation 98% 07/12/2024 11:48 AM EST Inhaled Oxygen Concentration - - Weight 95.8 kg (211 lb 3.2 oz) 07/12/2024 11:48 AM EST Height 169.5 cm (5' 6.75 ) 07/12/2024 11:[address] Body Mass Index 33.33 07/12/2024 11:48 AM EST Plan of Treatment Upcoming Encounters Date Type Department Care Team (Late st Contact Info) Description 07/22/2024 11:00 AM EDT Office Visit [facility] [address] [place] [address] Gemini Chavez MD [address] [place] [address] Health Maintenance Due Date Last Done Comments [...] 05/20/2023, 06/13/2022, Additional history exists Tobacco Screening 07/05/2025 07/05/2024 Lipid Panel 05/03/2029 05/03/2024, 01/0 01/2024, 12/13/2022, Additional history exists DTaP/Tdap/Td Vaccines [...] EST Narrative 06/16/2024 1:02 PM EST ? [facility] ?[address] ?[place] [address] ?XRay Report ? Signed ? Patient: Min Rees ?MR#: ?? [id number] ? : 1955 ?Acct:[id number] ? Age/Sex: 68 / M ?ADM Date: 06/16/24 ? Loc: HO.ED ? Attending Dr: ? Ordering Physician: Sarah Beth Quinonez ?? Date of Service: 06/16/24 ?? Procedure(s): XR shoulder LT min 2V ?? Accession Number(s): [id number] ? cc: Gemini Chavez MD; Sarah Beth [...] 12:59 PM EST RP ? Dictated By: ?Chacorta Noland MD ? Signed By: ?<Electronically signed by Chacorta Noland MD in OV> ?06/16/24 1259 ? DD/ 1245 ? TD/TT: 06/16/24 1250 ? Student Support Counselor: MSM ? Procedure Note Donotuseinterpreter, Image - 06/16/2024 [place] [address] XRay Report Signed Patient: Min ReesMR#: [id number] : 6Acct:[id number] Age/Sex: 68 / MADM Date: 06/16/24 Loc: HO.ED Attending Dr: Ordering Physician: Sarah Beth Quinonez Date of Service: 06/16/24 Procedure(s): XR shoulder LT min 2V Accession Number(s): [id number] cc: Gemini Chavez MD; Sarah Beth Quinonez [...] fracture or dislocation. Electronically signed by: Chacorta oNland MD 06/16/2024 12:59 PM EST Dictated By: Chacorta Noland MD Signed By: <Electronically signed by Chacorta Noland MD in OV> 06/16/24 1259 DD/ 1245 TD/TT: 06/16/24 1250 Student Support Counselor: C[facility] External Provider IMG XR PROCEDURES Edited Result - Final * High Sensitivity Troponin I (06/16/2024 11:38 AM EST) Only the most recent of2 resultswithin the time period is included. TROPONIN I HIGH SENSITIVITY 3.4 <3.5 - 35.0 ng/L [facility] Comment:The [place] high sens itivity Troponin-I results should beused in conjunction with other diagnostic information suchas ECG, clinical observations and information, and patientsymptoms to aid in the diagnosis of [place]. 06/16/2024 11:3 8 AM EST 06/16/2024 11:41 AM EST Generic External Data Provider LAB BLOOD ORDERAB LES Final Result Performing Organization Address City/State/[facility] Co de Phone Number [facility] [address] [place] [address] [phone] * CT Head w/o Contrast (06/16/2024 9:18 AM EST) Anatomical Region Laterality Modality Head, Neck Computed Tomogra phy 06/16/2024 9:18 AM EST Narrative 06/16/2024 9:52 AM EST ? [facility] ?[address] ?[place] [address] ? CT Scan Report ? Signed ? Patient: Davonte Cano,Min ?MR#: ?? [id number] ? : 1955 ?Acct:[id number] ? Age/Sex: 68 / M ?ADM Date: 02/05/25 ? Loc: HO.ED ? Attending Dr: ? Ordering Physician: Ysabel Benton NP ?? Date of Service: 06/16/24 ?? Procedure(s): CT head/brain wo IV con ?? Accession Number(s): [id number] ? cc: Gemini Chavez MD; Ysabel Benton NP ? Report Number: ?? [id number]: Total DLP = ??793.00 mGy-cm ?? EXAMINATION: [...] DD/ 0918 ? TD/TT: 06/16/24 0944 ? Student Support Counselor: ? Procedure Note Donotuseinterpreter, Image - 06/16/[address] [address] [address] Scan Report Signed Patient: Min ReesMR#: [id number] : 6Acct:[id number] Age/Sex: 68 / MADM Date: 06/16/24 Loc: HO.ED Attending Dr: Ordering Physician: Ysabel Benton NP Date of Service: 06/16/24 Procedure(s): CT head/brain wo IV con Accession Number(s): [id number] cc: Gemini Chavez MD; Ysabel Benton NP Report Number: [id number]: Total DLP = 793.00 mGy-cm EXAMINATION: CT [...] by Bladimir Doherty MD in OV> 06/16/24 0949 DD/ 7 TD/TT: 06/16/24943 Student Support Counselor: [facility] External Provider IMG CT PROCEDURES Edited Result - Final * SARS-CoV-2 RNA, Influenza A/B, and RSV RNA, Ql NAAT (06/16/2024 9:16 AM EST) Influenza A PCR NEGATIVE Negative [facility] Influenza B PCR NEGATIVE Negative [facility] Resp Syncy Virus RNA Qual PCR NEGATIVE Negative [facility] SARS COV2 PCR NEGATIVE Negative [facility] Comment:All test results mus t [...] use by authorized laboratories.Testing performed on the [facility] GeneXpert utilizingreal-time RT-PCR.All SARS CoV2 and positive influenza A/B results arereported to [facility]. 06/16/2024 9:16 AM EST 06/16/2024 9:21 AM EST Generic External Data Provider LAB MICROBIOLOGY - GENERAL ORDERABLES Final Result [facility] [address] [place] [phone] * (ABNORMAL) CBC auto differential (06/16/2024 9:16 AM EST) White Blood Count 6.8 4.8 - 10.8 X10*3/uL [facility] Red Blood Count 3.61(L) 4.60 - 5.80 X10*6/uL [facility] Hemoglobin 11.5(L) 14.0 - 18.0 g/dl [facility] Hematocrit 33.3(L) 42.0 - 52.0 % [facility] Mean Corpuscular Volume 92.2 80.0 - 98.0 fL [facility] Mean Corpuscular Hemoglobin 31.9 27.0 - 33.0 pg [facility] Mean Corpuscular HGB Conc 34.5 31.0 - 36.0 g/dl [facility] Red Cell Distribution Width 12.0 11.0 - 16.0 % [facility] Platelet Count 173 160 - 400 X10*3/uL [facility] Mean Platelet Volume 10.1 9.4 - 12.4 fL [facility] Neutrophils Percent Auto 73.8(H) 45 - 73 % [facility] Imm Gran Pct Auto 0.3 0.0 - 0.4 % [facility] Lymphocytes Percent Auto 14.9(L) 20 - 40 % [facility] Monocytes Percent Auto 10.3 2 - 11 % [facility] Eosinophils Percent Auto 0.4 0 - 4 % [facility] Basophils Percent Auto 0.3 0 - 2 % [facility] NRBC Pct Auto 0.0 0.0 - 0.2 /100WBC [facility] Neutrophils Absolute Auto 5.0 2.0 - 8.3 x10*3/uL [facility] Imm Gran Abs Auto 0.02 0.00 - 0.03 X10*3/uL [facility] Lymphocytes Absolute Auto 1.0(L) 1.2 - 4.9 X10*3/uL [facility] Monocytes Absolute Auto 0.7 0.1 - 1.2 X10*3/uL [facility] Eosinophils Absolute Auto 0.0 0.0 - 0.4 X10*3/uL [facility] Basophils Absolute Auto 0.0 0.0 - 0.2 X10*3/uL [facility] NRBC Abs Auto 0.000 0.0 - 0.012 X10*3/uL [facility] 06/16/2024 9:16 AM EST 06/16/2024 9:21 AM EST Generic External Data Provider LAB BLOOD ORDERAB LES Final Result Performing Organization Address [facility] Co de Phone Number [facility] [address] [place] [phone] * (ABNORMAL) Prothrombin Time-INR (06/16/2024 9:16 AM EST) Prothrombin Time 15.5(H) 10.9 - 12.4 SEC [facility] INTERNATIONAL NORM RATIO 1.3(H) 0.9 - 1.1 [facility] Comment:INTERNATIONAL NORMAL IZED RATIO (INR) REFERENCE [...] ORDERAB LES Final Result Performing Organization Address [facility] Co de Phone Number [facility] [address] [place] [phone] * (ABNORMAL) B Type Natriuretic Peptide (BNP) (06/16/2024 9:16 AM EST) B Type Natriuretic Peptide 238(H) <100 pg/mL [facility] Comment:For those patients w ho are being treated with Natrecor(nesiritide, recombinant BNP), BNP testing should beperformed at least two hours post treatment in order toensure that only endogenous levels of BNP are detected. 06/16/2024 9:16 AM EST 06/16/2024 9:21 AM EST us Generic External Data Provider LAB BLOOD ORDERAB LES Final Result Performing Organization Address [facility]/ZIP Co de Phone Number [facility] [address] [place] [phone] * Lipase (06/16/2024 9:16 AM EST) Lipase 52 8 - 78 U/L [facility] 06/16/2024 9:16 AM EST 06/16/2024 9:21 AM EST Generic External Data Provider LAB BLOOD ORDERAB LES Final Result Performing Organization Address [facility] de Phone Number [facility] [address] [place] [phone] * Hepatic Function Panel (06/16/2024 9:16 AM EST) Bilirubin, Total 0.8 0.0 - 1.0 mg/dL [facility] Bilirubin, Direct 0.3 0.0 - 0.5 mg/dL [facility] Aspartate Amino Transferase 22 5 - 37 U/L [facility] Alanine Aminotransferase 18 0 - 40 U/L [facility] Total Protein 6.5 6.5 - 8.0 g/dL [facility] Albumin Level 3.8 3.5 - 5.0 g/dL [facility] Alkaline Phosphatase 43 39 - 117 U/L [facility] 06/16/2024 9:16 AM EST 06/16/2024 9:21 AM EST Generic External Data Provider LAB BLOOD ORDERAB LES Final Result Performing Organization Address [facility] Co de Phone Number [facility] [address] [place] [address] [phone] * (ABNORMAL) Basic Metabolic Panel (06/16/2024 9:16 AM EST) Only the most recent of2 resultswithin the time period is included. Sodium 141 135 - 145 mmol/L [facility] Potassium 3.5 3.3 - 5.1 mmol/L [facility] Chloride 109(H) 96 - 108 mmol/L [facility] Carbon Dioxide 26 22 - 29 mmol/L [facility] Anion Gap 10(L) 12 - 20 [facility] Urea Nitrogen (BUN) 12 9 - 16 mg/dL [facility] Creatinine, Serum 1.10 0.5 - 1.4 mg/dL [facility] Creatinine Clr Calc Pharmacy 68.0 [facility] Comment:eGFR (calculated fro m the MDRD study equation) and eCrCl(calculated from the Cockcroft-Gault equation) are based ondifferent parameters and may not yield comparable results.If eCrCl result is absurd, please check patient'sheight/weight. Estimated Glomerular Filt Rate >60 [facility] Comment:Chronic Kidney Disea se: Estimated GFR < 60 mL/min/1.22d1Ctvhli Kidney Disease: Estimated GFR < 15 mL/min/1.73m2 Glucose 140(H) 60 - 115 mg/dL [facility] Calcium 8.7 8.4 - 10.2 mg/dL [facility] 06/16/2024 9:16 AM EST 06/16/2024 9:21 AM EST us Generic External Data Provider LAB BLOOD ORDERAB LES Final Result [facility] [address], [place] [phone] * CT Cervical Spine w/o Contrast (06/16/2024 9:08 AM EST) Anatomical Region Laterality Modality Spine, C-spine Computed Tomogra phy 06/16/2024 9:08 AM EST Narrative 06/16/2024 9:58 AM EST ? [facility] ?[address] ?[place] [address] ? CT Scan Report ? Signed ? Patient: Davonte Cano,Min ?MR#: ?? [id number] ? : 1955 ?Acct:[id number] ? Age/Sex: 68 / M ?ADM Date: 06/16/24 ? Loc: HO.ED ? Attending Dr: ? Ordering Physician: Ysabel Benton NP ?? Date of Service: 06/16/24 ?? Procedure(s): CT cervical spine wo IV con ?? Accession Number(s): [id number] ? cc: Gemini Chavez MD; Ysabel Benton NP ? Report Number: ?? [id number]: Total DLP = ??436.00 mGy-cm ?? EXAMINATION: [...] ??06/16/2024 09:56 AM EST RP ?? Work[id number] ? Dictated By: ?Bladimir Doherty MD ? Signed By: ?<Electronically signed by Bladimir Doherty MD in OV> ?06/16/24 0956 ? DD/ ? TD/TT: 06/16/2444 ? Student Support Counselor: ? Procedure Note Jeancarlos Turcios - 06/16/[address] [place] [address] [address] Scan Report Signed Patient: Min ReesMR#: [id number] : 1955cct:[id number] Age/Sex: 68 / MADM Date: 06/16/24 Loc: HO.ED Attending Dr: Ordering Physician: Ysabel Benton NP Date of Service: 06/16/24 Procedure(s): CT cervical spine wo IV con Accession Number(s): [id number] cc: Gemini Chavez MD; Ysabel Benton NP Report Number: [id number]: Total DLP = 436.00 mGy-cm EXAMINATION: CT [...] Doherty MD in OV> 06/16/24 0956 DD/ 7 TD/TT: 06/16/2444 Student Support Counselor: [facility] External Provider IMG CT PROCEDURES Edited Result - Final * XR Chest 1 View (06/16/2024 8:45 AM EST) Anatomical Region Laterality Modality Chest Radiographic Claire ging 06/16/2024 8:45 AM EST Narrative 06/16/2024 9:05 AM EST ? [facility] ?[address] ?[place] [address] ?XRay Report ? Signed ? Patient: Min Rees ?MR#: ?? [id number] ? : 1955 ?Acct:[id number] ? Age/Sex: 68 / M ?ADM Date: 06/16/24 ? Loc: HO.ED ? Attending Dr: ? Ordering Physician: Generic ED Physician ?? Date of Service: 06/16/24 ?? Procedure(s): XR chest 1V ?? Accession Number(s): [id number] ? cc: Gemini Chavez MD; Generic ED [...] DD/ 0845 ? TD/TT: 06/16/24 0850 ? Student Support Counselor: ? Procedure Jeancarlos Norwood - 06/16/2024 [place] [address] [facility] [place] [address] XRay Report Signed Patient: Mini Rees#: [id number] : 6Acct:[id number] Age/Sex: 68 / MADM Date: 06/16/24 Loc: HO.ED Attending Dr: Ordering Physician: Generic ED Physician Date of Service: 06/16/24 Procedure(s): XR chest 1V Accession Number(s): [id number] cc: Gemini Chavez MD; Generic ED Physician [...] 06/16/24 0902 DD/ 0845 TD/TT: 06/16/24 0850 Student Support Counselor: [facility] External Provider IMG XR PROCEDURES Edited Result - Final * US RENAL BI (05/11/2024 6:41 PM EST) Anatomical Region Laterality Modality Abdomen Ultrasound 05/11/2024 6:41 PM EST Narrative 05/11/2024 6:43 PM EST ? [facility] ?[address] ?[place] [address] ? Ultrasound Report ? Signed ? Patient: Davonte Cano,Min ?MR#: ?? [id number] ? : 1955 ?Acct:[id number] ? Age/Sex: 68 / M ?ADM Date: 12/31/24 ? Loc: HO.US ? Attending Dr: Claudio Allan MD ? Ordering Physician: Claudio Allan MD ?? Date of Service: 05/11/24 ?? Procedure(s): US renal BI ?? Accession Number(s): [id number] ? cc: Claudio Allan MD; Gemini Chavez [...] DD/ 1841 ? TD/TT: 05/11/24 1841 ? Student Support Counselor: ? Procedure Note Tam, Image - 05/11/2024 [place] [address] Ultrasound Report Signed Patient: Mini Rees#: [id number] : 6Acct:[id number] Age/Sex: 68 / MADM Date: 05/11/24 Loc: HO.US Attending Dr: Claudio Allan MD Ordering Physician: Claudio Allan MD Date of Service: 05/11/24 Procedure(s): US renal BI Accession Number(s): [id number] cc: Claudio Allan MD; Gemini Chavez MD [...] in OV> 05/11/241841 DD/ 40 TD/TT: 05/11/241840 Student Support Counselor: us [facility] External Provider IMG US PROCEDURES Edited Result - Final * (ABNORMAL) Urine Protein, Total, Random without Creatinine (05/04/2024 10:18 AM EST) Protein, Total, Random Urine 30(H) <12 mg/dL [facility] 05/04/2024 10:1 8 AM EST 05/04/2024 10:48 AM EST Generic External Data Provider LAB URINE ORDERAB LES Final Result Performing Organization Address [facility] Co de Phone Number [facility] [address] [place] [phone] * Creatinine, Random Urine (05/04/2024 10:18 AM EST) Creatinine, Urine 306.08 mg/dL [facility] 05/04/2024 10:1 8 AM EST 05/04/2024 10:48 AM EST Generic External Data Provider LAB URINE ORDERAB LES Final Result Performing Organization Address [facility] Co de Phone Number [facility] [address] [place] [phone] * (ABNORMAL) Urinalysis Complete (05/04/2024 10:18 AM EST) Color Urine Dark Yellow [facility] Appearance Urine Clear [facility] PH 6.0 5.0 - 9.0 [facility] Glucose Urine UA Negative Negative mg/dL [facility] Urine Blood Negative Negative [facility] Specific [place] - Urine 1.025 1.005 - 1.025 [facility] Urine Protein 30 (1+)(A) Neg-Trace mg/dL [facility] Urine Ketones Trace Negative mg/dL [facility] Nitrite Urine Negative Negative [facility] Leukocyte Esterase Urine Small (1+)(A) Negative [facility] RBC Urine 0-2 0 - 2 /HPF [facility] Urine WBC 0-5 0 - 5 /HPF [facility] Urine Squamous Epithelial Cell 0-2 0 - 2 /HPF [facility] Urine Bacteria None Seen None Seen [facility] Hyaline Casts, Urine 6-10 0 - 2 /LPF [facility] 05/04/2024 10:1 8 AM EST 05/04/2024 10:48 AM EST us Generic External Data Provider LAB URINE ORDERAB LES Final Result Performing Organization Address City/State/[facility] Co de Phone Number [facility] [address] [place] [phone] * (ABNORMAL) Lipid Panel, Standard (05/03/2024 8:15 AM EST) Triglycerides 230(H) <150 mg/dL [facility] Comment:Desirable Triglyceri de: less than 150 mg/dLBorderline High Triglyceride 150-199 mg/dLHigh Triglyceride: 200-499 mg/dLVery High Triglyceride: greater than or equal to 5OO mg/dL Cholesterol 118 <200 mg/dL [facility] Comment:Desirable Cholestero l: less than 200 mg/dLBorderline High Cholesterol: 200-239 mg/dLHigh Cholesterol: greater than 239 mg/dL LDL Cholesterol Calculated 41 <100 mg/dL [facility] Comment:Desirable LDL: less than 100 mg/dLNear Optimal/Above Optimal LDL: 110- 129 mg/dLBorderline High LDL: 130-159 mg/dLHigh LDL: 160-189 mg/dLVery High LDL: greater than or equal to 190 mg/dL HDL Cholesterol 31(L) >40 mg/dL [facility] Comment:Desirable HDL: great er than 40 mg/dL Note: This HDL assay may give artificially low results in patients with liver disease. Blood Venous blood specimen / Unknown 05/03/2024 8:15 AM EST 05/03/2024 11:40 AM EST us Gemini Chung MD LAB BLOOD ORDERABLES Final Result [facility] [address] [place] [address] [phone] * (ABNORMAL) Comprehensive Metabolic Panel (05/03/2024 8:15 AM EST) Sodium 142 135 - 145 mmol/L [facility] Potassium 4.0 3.3 - 5.1 mmol/L [facility] Chloride 104 96 - 108 mmol/L [facility] Carbon Dioxide 30(H) 22 - 29 mmol/L [facility] Anion Gap 12 12 - 20 [facility] Urea Nitrogen (BUN) 9 9 - 16 mg/dL [facility] Creatinine, Serum 1.17 0.5 - 1.4 mg/dL [facility] Estimated Glomerular Filt Rate >60 [facility] Comment:Chronic Kidney Disea se: Estimated GFR < 60 mL/min/[id number] Kidney Disease: Estimated GFR < 15 mL/min/1.73m2 Glucose 73 60 - 115 mg/dL [facility] Calcium 8.7 8.4 - 10.2 mg/dL [facility] Bilirubin, Total 0.8 0.0 - 1.0 mg/dL [facility] Aspartate Amino Transferase 25 5 - 37 U/L [facility] Alanine Aminotransferase 27 0 - 40 U/L [facility] Total Protein 6.7 6.5 - 8.0 g/dL [facility] Albumin Level 3.9 3.5 - 5.0 g/dL [facility] Alkaline Phosphatase 39 39 - 117 U/L [facility] 05/03/2024 8:15 AM EST 05/03/2024 11:40 AM EST Generic External Data Provider LAB BLOOD ORDERAB LES Final Result Performing Organization Address [facility]/ZIP Co de Phone Number [facility] [address] [place] [address] [phone] * (ABNORMAL) POCT HGB A1C (11/11/2023 11:12 AM EDT) Hemoglobin A1C 6.4(A) 4.0 - 6.0 % QC Media Lot # [id number] Lot# Expiration Date Blood 11/11/2023 11:1 2 AM EDT us Gemini Chung MD POINT OF CARE TEST EN TER/EDIT ORDERABLES Final Result * Hepatitis C Antibody Reflex (12/13/2022 8:21 AM EDT) Hepatitis C Antibody Nonreactive Nonreactive [facility] Comment:Antibodies to HCV no t detected; does not exclude early acuteHCV infection. 12/13/2022 8:21 AM EDT 12/13/2022 11:08 AM EDT us Gemini Chung MD LAB BLOOD ORDERABLES Final Result Performing Organization Address [facility]/ZIP Co de Phone Number [facility] [address] [place] [address] [phone] from Last 3 Months or Most Recently Relevant to Health Maintenance Insurance [address] [place] [id number] [employer] [facility] Care Teams System Configuration Specialist Relationship Specialty Start Date End Date Gemini Chavez MD [address] [place] [address] PCP - General Family Medicine 01/21/18 [employer] 03/28/24
--- OUTSIDE RECORDS SUMMARY | 2024-07-15 09:28 | XMS_ITS | Encounter Summary ---
Author Organization [facility] Address [address] [facility] 7t [place] [address] Care Team Providers Care Aviculturist Name Role Phone Gemini Chavez MD Primary Care Provide r Reason for Visit * Reason Comments Med Refill Encounter Details Date Type Department Care Team (Late st Contact Info) Description 06/21/2022 Refill [facility] [address] [place], [place] [phone] Marsha Menjivar MD [address] [place], [place] [phone] Chronic systolic heart failure (CMS/HCC) Social History [...] Description 07/22/2024 11:00 AM EDT Office Visit [facility] [address] [place] [address] Gemini Chavez MD [address] [place] [address] documented as of this encounter Visit Diagnoses Diagnosis Chronic systolic heart failure (CMS/HCC) Chronic systolic heart failure documented in this encounter Additional Health Concerns Assessment Noted Time PHQ-9 Depression Total Score: 6 05/16/19 23 1:42 PM EST documented as of this encounter Care Teams Aviculturist Relationship Specialty Start Date End Date Gemini Chavez MD [address] [place] [address] PCP - General Family Medicine 01/21/18 [employer] 03/28/24 documented as of this encounter
--- OUTSIDE RECORDS SUMMARY | 2024-07-15 09:29 | XMS_ITS | Encounter Summary ---
Author Organization [employer] Address [address] [facility] 7t [place] [address] Care Team Providers Care Tufting Creeler Name Role Phone Gemini Chavez MD Primary Care Provide r Reason for Visit * Reason Onset Date Comments Nurse Triage 03/26/2023 Encounter Details Date Type Department Care Team ([facility] st Contact Info) Description 03/26/[address] [facility] [address] [place], [place] [phone] Gemini Chavez MD [address] [place] [address] Nurse Triage Social History Tobacco Use Types [...] t he electric, gas, oil or water [employer] threatened to shut off services in your [...] 03/26/2023 11:47 AM EST Triage call with [employer] Merchandising Coordinator ID [id number] Pt reports ingrown toenail great toe on left foot for 3 days now. Pt reports it is painful and causes some limping when ambulating. Pt denies redness, drainage. Pt requests a referral to cement side laster which was very helpful last time this happened. Pt is advised will send this request to PCP and nursing team for follow up and Pt agreed. Pt declined to come to [facility] only wants cement side laster to cut this toenail. Protocol Used: Information [...] accepted this outcome Please contact pt at [phone] (bank reconciliator needed) documented in this encounter Plan of Treatment Upcoming Encounters Date Type Department Care Team ([facility] st Contact Info) Description 07/22/2024 11:00 AM EDT Office Visit [facility] [address] [place] [address] [phone] Gemiin Chavez MD [address] [place], [place] [phone] documented as of this encounter Visit Diagnoses Not on filedocumented in this encounter Additional Health Concerns Assessment Noted Time PHQ-9 Depression Total Score: 6 05/16/19 23 1:42 PM EST documented as of this encounter Care Teams Tufting Creeler Relationship Specialty Start Date End Date Gemini Chavez MD [address] [place] [address] PCP - General Family Medicine 01/21/18 [employer] 03/28/24 documented as of this encounter
--- OUTSIDE RECORDS SUMMARY | 2024-07-15 09:29 | XMS_ITS | Encounter Summary ---
Author Organization [employer] Address 75 [facility] 7t [place] [address] Care Team Providers Care Rate Supervisor Name Role Phone Gemini Chavez MD Primary Care Provide r Reason for Visit * Reason Comments Hypertension Headache Encounter Details Date Type Department Care Team ([facility] st Contact Info) Description 07/05/2024 9:00 AM EST Office Visit [facility] [address] [place], [place] [phone] Alexandra Knox MD [address] [place], [place] [phone] Primary hypertension (Primary Dx); Elevated blood pressure reading Social History Tobacco Use Types Packs/Day Years [...] AM EDT documented as of this encounter Last Filed Vital Signs Vital Sign Reading Time Taken Comments Blood Pressure 150/96 07/05/2024 8:40 AM EST Pulse 90 07/05/2024 8:40 AM EST Temperature 36.7 ??C (98 ??F) 07/05/2024 8:40 AM EST Respiratory Rate 18 07/05/2024 8:40 AM EST Oxygen Saturation - - Inhaled Oxygen Concentration - - Weight 94.2 kg (207 lb 9.6 oz) 07/05/2024 8:40 A M EST Height 165.1 cm (5' 5 ) 07/05/2024 8:40 AM EST Body Mass Index 34.55 07/05/2024 8:40 AM EST documented in this encounter Progress Notes * Alexandra Knox MD - 07/05/2024 9:00 AM EST Subjective Patient ID: Min Cano is a 68 y.o. male with past medical history atrial fibrillation, hypertension, COPD, CAD, EtOH use disorder who presents to walk in clinic for elevated blood pressure readings at home. Pt reports home blood pressures have been elevated for 6 days. He repots he went tot he ER 6 days ago due to asymptomatic BP elevated of 180/150 at home and was sent home. There is a note from 06/16/24for SOB but pt denies he had SOB. Pt is on hydrochlorothiazide 12.5, Metoprolol XL 200 and Lasix 40mg. He denies current active headache. Denies chest pain, COB, dizziness or vision changes. Hypertension Associated symptoms: headaches Associated symptoms: no chest pain, no fatigue and no fever Headache Associated symptoms: no cough, no fatigue and no fever Review of Systems Constitutional: Negative for diaphoresis, fatigue and fever. Respiratory: Negative for cough and chest tightness. Cardiovascular: Negative for chest pain. Neurological: Positive for headaches. Objective Visit Vitals BP (!) 150/96 (BP Location: Left arm, Patient Position: Sitting, BP Cuff Size: Adult) Pulse 90 Temp 98 ??F (36.7 ??C) (Oral) Resp 18 Body mass index is 34.55 kg/m??. Physical Exam Constitutional: Appearance: Normal appearance. Cardiovascular: Rate and Rhythm: Normal rate and regular rhythm. Heart sounds: Normal heart sounds. Pulmonary: Effort: Pulmonary effort is normal. Breath sounds: Normal breath sounds. Abdominal: General: Abdomen is flat. Palpations: Abdomen is soft. Tenderness: There is no abdominal tenderness. Musculoskeletal: Cervical back: Normal range of motion and neck supple. Lymphadenopathy: Cervical: No cervical adenopathy. Skin: General: Skin is warm and dry. Neurological: General: No focal deficit present. Mental Status: Mental status is at baseline. Cranial Nerves: No cranial nerve deficit. Motor: No weakness. Coordination: Coordination normal. Psychiatric: Behavior: Behavior normal. Problem List Items Addressed This Visit Hypertension - Primary -continue hydrochlorothiazide 12.5 mg daily -continue metoprolol XL 200 daily -continue furosemide 40mg mg daily -start amlodipine 2.5mg daily 07/05/24 -low NA diet and lifestyle modification discussed -continue home BP checks Pt has follow up already scheduled with PCP for 07/22/24 Relevant Medications amLODIPine (Norvasc) 2.5 MG tablet Other Visit Diagnoses Elevated blood pressure reading No follow-ups on file. documented in this encounter Miscellaneous Notes * Assessment & Plan Note - Alexandra Knox MD - 07/05/2024 8:58 AM EST Associated Problem(s): Hypertension -continue hydrochlorothiazide 12.5 mg daily -continue metoprolol XL 200 daily -continue furosemide 40mg mg daily -start amlodipine 2.5mg daily 07/05/24 -low NA diet and lifestyle modification discussed -continue home BP checks Pt has follow up already scheduled with PCP for 07/22/24 documented in this encounter Plan of Treatment Upcoming Encounters Date Type Department Care Team (Late st Contact Info) Description 07/22/2024 11:00 AM EDT Office Visit [facility] [address] [place] [address] Gemini Chavez MD [address] [place] [address] documented as of this encounter Visit Diagnoses Diagnosis Primary hypertension- Primary Unspecified essential hypertension Elevated blood pressure reading Elevated blood pressure reading without diagnosis of hypertension documented in this encounter Additional Health Concerns Assessment Noted Time PHQ-9 Depression Total Score: 0 09/03/19 9:55 AM EDT documented as of this encounter Care Teams Rate Supervisor Relationship Specialty Start Date End Date Gemini Chavez MD [address] [place] [address] PCP - General Family Medicine 01/21/18 [employer] 03/28/24 documented as of this encounter
--- OUTSIDE RECORDS SUMMARY | 2024-07-15 09:29 | XMS_ITS | Encounter Summary ---
Author Organization [employer] Address [address] [facility] 7t [place] [address] Care Team Providers Care Hassock Maker Name Role Phone Gemini Chavez MD Primary Care Provide r Reason for Visit * Reason Comments Med Refill Encounter Details Date Type Department Care Team ([facility] st Contact Info) Description 10/20/2023 Refill [facility] [address] [place], [place] [phone] Gemini Chavez MD [address] [place] [address] Seasonal allergies Social History Tobacco Use Types [...] 07/22/2024 11:00 AM EDT Office Visit [facility] [address] [place] [phone] Gemini Chavez MD [address] [place] [address] documented as of this encounter Visit Diagnoses Diagnosis Seasonal allergies Allergic rhinitis, cause unspecified documented in this encounter Additional Health Concerns Assessment Noted Time PHQ-9 Depression Total Score: 0 09/03/19 9:55 AM EDT documented as of this encounter Care Teams Hassock Maker Relationship Specialty Start Date End Date Gemini Chavez MD [address] [place] [address] PCP - General Family Medicine 01/21/18 [employer] 03/28/24 documented as of this encounter
--- OUTSIDE RECORDS SUMMARY | 2024-07-15 09:29 | XMS_ITS | Encounter Summary ---
Author Organization [employer] Address [address] [facility] 7t [place] [address] Care Team Providers Care Woodwork Salvage Inspector Name Role Phone Gemini Chavez MD Primary Care Provide r Reason for Visit * Reason Comments Med Refill Encounter Details Date Type Department Care Team ([facility] st Contact Info) Description 07/02/2024 Refill [facility] [address] [place], [place] [phone] Gemini Chavez MD [address] [place], [place] [phone] Pure hypercholesterolemia Social History Tobacco Use Types Packs/Day Years [...] Upcoming Encounters Date Type Department Care Team ([facility] st Contact Info) Description 07/22/2024 11:00 AM EDT Office Visit [facility] [address] [place] [phone] Gemini Chavez MD [address] [place] [address] documented as of this encounter Visit Diagnoses Diagnosis Pure hypercholesterolemia documented in this encounter Additional Health Concerns Assessment Noted Time PHQ-9 Depression Total Score: 0 09/03/19 24 9:55 AM EDT documented as of this encounter Care Teams Woodwork Salvage Inspector Relationship Specialty Start Date End Date Gemini Chavez MD [address] [place] [address] PCP - General Family Medicine 01/21/18 [employer] 03/28/24 documented as of this encounter
--- OUTSIDE RECORDS SUMMARY | 2024-07-15 09:29 | XMS_ITS | Encounter Summary ---
Author Organization [employer] Address [address] [facility] 7t [place] [address] Care Team Providers Care Wind Instrument Repairer Name Role Phone Gemini Chavez MD Primary Care Provide r Reason for Referral * Medications - Closed Specialty Diagnoses / Procedures Referred By Klever dozier Referred To Contact Diagnoses Class 2 severe obesity due to excess calories with serious comorbidity and body mass index (BMI) of 38.0 to 38.9 in adult ([facility]) Gemini Chavez MD [address] [place] [address] Phone: tel: fax: Referral ID Status Reason Start Date Expiration Date Visits Re quested Visits Authorized [id number] Closed 05/10/2024 05/10/2025 1 1 Encounter Details Date Type Department Care Team (Late st Contact Info) Description 05/10/[address] [facility] [address] [place], [place] [phone] Gemini Chavez MD [address] [place], [place] [phone] Stage 3 chronic kidney disease, unspecified whether stage 3a or 3b CKD ([facility]/HCC) (Primary Dx); Class 2 severe obesity due [...] 07/22/2024 11:00 AM EDT Office Visit [facility] [address] [place], [place] [phone] Gemini Chavez MD [address] [place] [address] documented as of this encounter Visit Diagnoses Diagnosis Stage 3 chronic kidney disease, unspecified whether stage 3a or 3b CKD (CMS/HCC)- Primary Class 2 severe obesity due to excess calories with serious comorbidity and body mass index (BMI) of 38.0 to 38.9 in adult ([facility]) documented in this encounter Additional Health Concerns Assessment Noted Time PHQ-9 Depression Total Score: 0 09/03/19 9:55 AM EDT documented as of this encounter Care Teams Wind Instrument Repairer Relationship Specialty Start Date End Date Gemini Chavez MD [address] [place] [address] PCP - General Family Medicine 01/21/18 [id number] 03/28/24 documented as of this encounter
--- OUTSIDE RECORDS SUMMARY | 2024-07-15 09:29 | XMS_ITS | Encounter Summary ---
Author Organization [employer] Address [address] [facility] 7t [place] [address] Care Team Providers Care Drive Tester Name Role Phone Gemini Chavez MD Primary Care Provide r Reason for Visit * Reason Onset Date Comments Referral 03/14/2023 Encounter Details Date Type Department Care Team ([facility] st Contact Info) Description 03/14/2023 Telephone [facility] [address] [place], [place] [phone] Gemini Chavez MD [address] [place] [address] Referral Social History Tobacco Use Types Packs/Day [...] Description 07/22/2024 11:00 AM EDT Office Visit [facility] [address] [place] [address] Gemini Chavez MD [address] [place] [address] documented as of this encounter Visit Diagnoses Not on filedocumented in this encounter Additional Health Concerns Assessment Noted Time PHQ-9 Depression Total Score: 6 05/16/19 23 1:42 PM EST documented as of this encounter Care Teams Drive Tester Relationship Specialty Start Date End Date Gemini Chavez MD [address] [place] [address] PCP - General Family Medicine 01/21/18 [employer] 03/28/24 documented as of this encounter
--- OUTSIDE RECORDS SUMMARY | 2024-07-15 09:29 | XMS_ITS | Encounter Summary ---
Author Organization [employer] Address [address] [facility] 7t [place] [address] Care Team Providers Care Media Relations Specialist Name Role Phone Gemini Chavez MD Primary Care Provide r Encounter Details Date Type Department Care Team (Late st Contact Info) Description 07/10/2023 Orders Only [facility] [address] [place], [place] [phone] Gemini Chavez MD [address] [place], [place] [phone] Mixed stress and urge urinary incontinence (Primary [...] the past 12 months, has t he [employer], oil or water company threatened to shut [...] Description 07/22/2024 11:00 AM EDT Office Visit [facility] [address] [place] [address] Gemini Chavez MD [address] [place] [address] documented as of this encounter Visit Diagnoses Diagnosis Mixed stress and urge urinary incontinence- Primary Mixed incontinence urge and stress (male)(female) documented in this encounter Additional Health Concerns Assessment Noted Time PHQ-9 Depression Total Score: 6 05/16/19 23 1:42 PM EST documented as of this encounter Care Teams Media Relations Specialist Relationship Specialty Start Date End Date Gemini Chavez MD [address] [place] [address] PCP - General Family Medicine 01/21/18 [employer] 03/28/24 documented as of this encounter
--- OUTSIDE RECORDS SUMMARY | 2024-07-15 09:29 | XMS_ITS | Encounter Summary ---
Author Organization [employer] Address [address] [facility] 7t [place] [address] Care Team Providers Care Family Medicine Physician Assistant Name Role Phone Gemini Chavez MD Primary Care Provide r Reason for Visit * Reason Comments Med Refill Encounter Details Date Type Department Care Team ([facility] st Contact Info) Description 05/08/2024 Refill [facility] [address] [place], [place] [phone] Gemini Chavez MD [address] [place], [place] [phone] Class 1 obesity due to excess calories [...] Description 07/22/2024 11:00 AM EDT Office Visit [facility] [address] [place] [phone] Gemini Chavez MD [address] [place] [address] documented as of this encounter Visit Diagnoses Diagnosis Class 1 obesity due to excess calories with serious comorbidity and body mass index (BMI) of 33.0 to 33.9 in adult documented in this encounter Additional Health Concerns Assessment Noted Time PHQ-9 Depression Total Score: 0 09/03/19 24 9:55 AM EDT documented as of this encounter Care Teams Family Medicine Physician Assistant Relationship Specialty Start Date End Date Gemini Chavez MD [address] [place] [address] PCP - General Family Medicine 01/21/18 [employer] 03/28/24 documented as of this encounter
--- OUTSIDE RECORDS SUMMARY | 2024-07-15 09:29 | XMS_ITS ---
Author Organization [facility] Address [address] [place] [address] Care Team Providers Care Grading Supervisor Name Role Phone Gemini Fisher M.D. Primary Care Provider Abimael Carnes Jr, Larry Unavailable Katherine FORTE, Cipriano Unavailable Unavailable REASON FOR VISIT pathology Encounters Encounter Location Date Provider Diagnosis [facility] [address] [place] [address] 04/14/2023 Larry Carnes Jr Plan Of Treatment No Information Progress Notes * BEN DAILYIODOB: 1955 (67 yo M)Acc No.[id number]:04/14/2023 Patient:?KOBE DAILY :1955???Age:67 Y???Sex:Male Address:[address] [place] [address] [address] , [place], [address] * true * Date:? Generated for Dutch rosales/Aylin/eTransmitting on:?07/15/2024 09:29 AM EST
--- OUTSIDE RECORDS SUMMARY | 2024-07-15 09:29 | XMS_ITS | Encounter Summary ---
Author Organization [employer] Address 75 [facility] 7t [place] [address] Care Team Providers Care Blower Insulator Name Role Phone Gemini Chavez MD Primary Care Provide r Reason for Visit * Reason Comments Hypertension Blood pressure check Pt was in [facility] 07/05/24 has new rx: amlodipine 5mg QAM Encounter Details Date Type Department Care Team (Latest Contact Info) Description 07/12/2024 11:00 AM EST Clinical Support [facility] 230 [place], [place] [phone] Elyssa Barajas RN Dietary counseling; Exercise counseling; Primary hypertension Social History Tobacco Use Types [...] Pulse 88 07/12/2024 11:48 AM EST Temperature - - Respiratory Rate 20 07/12/2024 11:48 AM EST Oxygen Saturation 98% 07/12/2024 11:48 AM EST Inhaled Oxygen Concentration - - Weight 95.8 kg (211 lb 3.2 oz) 07/12/2024 11:48 AM EST Height 169.5 cm (5' 6.75 ) 07/12/2024 11:[address] Body Mass Index 33.33 07/12/2024 11:48 AM EST documented in this encounter Patient Instructions * Patient Instructions* Elyssa Barajas RN - 07/12/2024 11:00 AM EST Pt to continue monitoring BP at home, increase amlodipine to 10 mg every day, return for PCP visit 07/22/24 to evaluate BP. will also discuss weight gain reported, and re attempt approval for Zepbound by insurance. documented in this encounter Plan of Treatment Upcoming Encounters Date Type Department Care Team (Late st Contact Info) Description 07/22/2024 11:00 AM EDT Office Visit [facility] [address] [place] [address] Gemini Chavez MD [address] [place] [address] documented as of this encounter Visit Diagnoses Diagnosis Dietary counseling Dietary surveillance and counseling Exercise counseling Primary hypertension Unspecified essential hypertension documented in this encounter Additional Health Concerns Assessment Noted Time PHQ-9 Depression Total Score: 0 09/03/19 9:55 AM EDT documented as of this encounter Care Teams Blower Insulator Relationship Specialty Start Date End Date Gemini Chavez MD [address] [place] [address] PCP - General Family Medicine 01/21/18 [employer] 03/28/24 documented as of this encounter
--- OUTSIDE RECORDS SUMMARY | 2024-07-15 09:29 | XMS_ITS | Encounter Summary ---
Author Organization [facility] Address [address] [facility] [address] [place] [address] Care Team Providers Care Gas Cutting Machine Operator Name Role Phone Gemini Chavez MD Primary Care Provide r Encounter Details Date Type Department Care Team (Late st Contact Info) Description 02/19/2023 Abstract [facility] MEDICINE [address] [place], [place] [phone] Gemini Chavez MD [address] [place], [place] [phone] Social History Tobacco Use Types Packs/Day Years [...] Description 07/22/2024 11:00 AM EDT Office Visit [facility] MED[facility]INE [address] [place] [address] Gemini Chavez MD [address] [place] [address] documented as of this encounter Visit Diagnoses Not on filedocumented in this encounter Additional Health Concerns Assessment Noted Time PHQ-9 Depression Total Score: 6 05/16/19 23 1:42 PM EST documented as of this encounter Care Teams Gas Cutting Machine Operator Relationship Specialty Start Date End Date Gemini Chavez MD [address] [place] [address] PCP - General Family Medicine 01/21/18 [employer] 03/28/24 documented as of this encounter
--- OUTSIDE RECORDS SUMMARY | 2024-07-15 09:29 | XMS_ITS | Data Portability ---
Author Organization [place] [place] Address [address] [place] [address] Care Team Providers Care Plate Hanger Name Role Phone TALIB MARTINEZZEDWIN RONALDO Primary Care Provider [phone] HIM [facility] OTHER [facility] OTHER Assessment Encounter Date Assessment Date [...] assessment and plan as documented by the physician. I provided real time medical direction for this encounter and was immediately available to provide additional phone based assistance as needed. History as noted by physician. Pt with history of afib on apixaban, [...] be transported via 911 ambulance to the [facility] and I give a pt expect to the ED aircraft line assembler as well. [email or web address] Not available 03/20/2024 18:19:28 04/21/2024 04/21/2024 I provided real -time medical direction via phone for this encounter and was available for additional phone-based assistance as needed. I have reviewed and agree with the Assessment and Plan as documented by the Waste Management Engineer. Patient given the opportunity to ask questions. [...] pressure. No change in functional status. Per physician on the scene, vital signs are stable [...] Assessment and Plan as documented by the Waste Management Engineer. We discussed the diagnostic uncertainty of home [...] to call 911- verbalized understanding of instruction [email or web address] Not available 04/27/2024 20:25:46 Plan of Treatment Reminders Order Date Submit Date Provider Last Modified By Organization Details Last Modified Time Details Appointments None recorded. Lab rapid SARS CoV 2 Ag, QL IA, respiratory specimen 2023 024 [email or web address] 0 [facility], [address] [place] [address], [phone], 4 20:24:15 rapid flu (A+B) 2023 024 [email or web address] 0 [facility], [address] [place] [address], [address], 4 20:24:15 BMP, serum or plasma 2023 024 [email or web address] 0 [facility], [address] [place] [address], [address], 4 20:24:15 rapid flu (A+B) 2023 024 [email or web address] [facility], [address] [place] [address], [address], 4 10:38:31 rapid SARS CoV 2 Ag, QL IA, respiratory specimen 2023 024 [email or web address] Main - [facility], [address] [place] [address], [phone], 4 10:38:31 Referral None recorded. Procedures None recorded. Surgeries None recorded. Imaging electrocard iogram 2023 024 [email or web address] 0 Main - [facility], [address] [place] [address], [address], 4 20:24:15 electrocard iogram 2023 024 [email or web address] Main - [facility], [address] [place] [address], [address], 4 18:36:07 electrocard iogram 2023 024 [email or web address] Main - [facility], [address] [place] [address], [address], 4 14:50:34 Medication Orders fluticasone propionate 50 mcg/actuati on nasal spray,suspe nsion 2023 024 [id number], [address] [place], [address], 4 12:56:56 Saline Nasal 0.65 % spray aerosol 2023 024 [id number], [address] [place], [address], 4 12:56:56 amoxicillin 500 mg capsule 2023 024 [id number], [address] [place], [address], 4 12:56:55 sodium chloride 0.9 % intravenous solution 2023 024 [email or web address] 0 [facility], [address] [place], [address], 4 20:24:15 prednisone 20 mg tablet 2023 024 WERNER [facility], [address] [place], [address], 4 10:38:33 prednisone 20 mg tablet 2023 024 [email or web address] [facility], [address] [place], [address], 4 10:38:31 Patient TargetsNo targets recorded. Patient Instructions Encounter Date Encounter Id Patient Instructions Last Modified By Organization Details Last Modified Time 03/31/2024 [id number] orthostatic vitals* [email or web address] Not available 03/31/2024 18:21:41 Reason for Referral None Reported. Results Created Date Observation Date Name Description Value Unit Range Abnormal Flag Note LastModifiedBy Organization Detail LastModifiedTime 04/21/20 24 04/21/2024 rapid SARS CoV 2 Ag, QL IA, respi rator y speci men rapid SARS CoV 2 Ag, QL IA, respiratory specimen negati ve Not Available Main - [facility] [address] [place] [address], [address], 04/21/2024 10:37:26 04/21/20 24 04/21/2024 rapid flu (A+B) Flu negati ve Not Available [facility] - [facility] [address] [place] [address], [address], 04/21/2024 10:37:25 04/27/20 24 04/27/2024 rapid flu (A+B) Flu negati ve Not Available [facility] - [facility] [address] [place] [address], [address], 04/27/2024 12:57:09 04/27/20 24 04/27/2024 rapid SARS CoV 2 Ag, QL IA, respi rator y speci men rapid SARS CoV 2 Ag, QL IA, respiratory specimen negati ve Not Available [facility] - [facility] [address] [place] [address], [address], 04/27/2024 12:57:08 03/20/20 24 03/20/2024 elect rocar diogr am No observ ation record ed. [facility] [address] [place] [address], [address], 03/20/2024 14:50:32 03/31/20 24 03/31/2024 elect rocar diogr am No observ ation record ed. [facility] [address] [place] [address], [address], 03/31/2024 18:36:06 04/27/20 24 04/27/2024 elect rocar diogr am No observ ation record ed. [email or web address] [facility] [address] [place] [address], [phone], 04/27/2024 20:22:51 Result Notes None recorded. Procedures Surgical History None recorded. Imaging Results Imaging Date Name Status LastModified by Organization Details LastModified Time 03/20/2024 electrocardiogram completed [address], [address], 03/20/2024 14:50:32 03/31/2024 [facility]ogram [facility] [address] [place] [address], [address], 03/31/2024 18:36:06 04/27/2024 electrocardiogram completed [email or web address] [facility] [address] [place] [address], [address], 04/27/2024 20:22:51 Procedure Notes None recorded. Medical [...] /min 162.56 cm 96 % 96 % 760490. 16 g 16 /min 121 mm[Hg] 87 mm[Hg] Not Available [email or web address] 4 21:44:22 Date Recorded Heart rate Respiratory rate Body temperature Oxygen saturation Oxygen saturation in Arterial blood by Pulse oximetry Systolic blood pressure Diastolic blood pressure Systolic blood pressure Diastolic blood pressure Provider Name and Address Organization Details Last Updated DateTime 4 105 /min 16 /min 98.7 [degF] 95 % 95 % 114 mm[Hg] 81 mm[Hg] 85 mm[Hg] 51 mm[Hg] Not Available [email or web address] 4 14:41:24 Date Recorded Respiratory rate Heart rate Body weight Body temperature Oxygen saturation Oxygen saturation in Arterial blood by Pulse oximetry Heart rate Respiratory rate Systolic blood pressure Diastolic blood pressure Systolic blood pressure Diastolic blood pressure Provider Name and Address Organization Details Last Updated DateTime 4 16 /min 74 /min 44252.4 4 g 98.3 [degF] 98 % 98 % 84 /min 20 /min 114 mm[Hg] 84 mm[Hg] 120 mm[Hg] 86 mm[Hg] Not Available 2theloo 4 18:31:50 Date Recorded Oxygen saturation Oxygen [...] Updated DateTime 04/27/2024 162.56 cm 33.5 kg/m2 91981.51 g Davina Garner MD [address] [place] [address],[address], [place], [address], [facility] Fr[facility]p 04/27/2024 20:03:55 Social History None recorded. Functional Status None recorded. Mental Status None recorded. Family History Nothing Reported. Medical History No medical history recorded. Past Encounters Encounter ID Performer Location Encounter Start Date Encounter Closed Date Diagnosis/Indication Diagnosis SNOMED-CT Code Diagnosis ICD10 Code Diagnosis Note [id number] Allison Newman MD [address] [phone] 04/11/2022 18:32:13 04/15/2022 15:46:34 Cough 02177860 R05.9 [id number] Davina Garner MD [address] [address] 01/07/2023 14:14:00 01/07/2023 22:56:53 Essential hypertension 34729640 I10 Patient exam is benign. Patient reassured/ his blood pressure is normal when taken with the medic cough. The medic measured the patient's blood pressure with his 5-year-old home machine and got 135/112 thus it is the patient's machine that is giving erroneous readingsNo te sent to [facility] to reach out to the child care cook to assist the patient in obtaining a new home blood pressure monitor. Advised to continue all his regular medication s and follow-up with his PCP as needed [id number] [facility] [address] [place] [id number] 01/08/2023 15:21:28 01/08/2023 23:59:09 Viral upper respiratory tract infection 511728641 J06.9 And viral pharyngiti s-advised to gargle [...] pcp. Sandra Bloom MD Main - [facility] [address] [place] [phone] 06/23/2023 18:11:30 06/24/2023 10:34:59 Dizziness 571392539 R42 [id number] Marlyn Casas MD Main - [facility] [address] [place] [phone] 08/05/2023 10:57:00 08/05/2023 16:00:41 Asthma 709157527 J45.909 Exacerbati on of moderate persistent asthma 537701404 J45.41 [id number] Eric Israel MD Main - [facility] [address] [place] [id number] 08/13/2023 12:51:38 08/13/2023 20:11:05 Acute exacerbation of chronic obstructive pulmonary disease 402865496 J44.1 The patient has a flare-up of his COPD. He will continue his current treatments . [id number] Eric Israel MD Main - [facility] [address] [place] [id number] 11/14/2023 12:02:23 11/14/2023 21:31:15 Vertigo 031511152 R42 This 67-year-ol d male with a past history of vertigo developed mild vertigo today. He has taken Meclizine in the past with good relief. I ordered Meclizine 50 mg now. He will follow-up with his PCP if the vertigo persists. The patient agreed with this plan. [id number] Thomas Lyon MD [facility] - [facility] [address] [place] [phone] 11/27/2023 21:44:10 11/28/2023 10:18:17 Headache 75459961 R51.9 [id number] Jeancarlos Gonsales MD Main - [facility] [address] [place] [phone] 03/20/2024 14:41:13 03/22/2024 13:41:42 Orthostatic hypotension 48766640 I95.1 Atrial fibrillation 4943 6004 I48.91 [id number] RENU MARIE MD Main - [facility] [address] [place] [id number] 03/31/2024 18:19:08 04/01/2024 11:10:35 Dizziness 992531746 R42 Evaluation in the field was performed by my physician colleague, as noted above, I provided real-time [...] , palpitatio ns or any other concerns. [id number] Marlyn Casas MD Main - [facility] [address] [place] [id number] 04/21/2024 10:14:37 04/22/2024 00:16:20 Asthma-chronic obstructive pulmonary disease overlap syndrome [id number] 2877508 J44.9 Viral uppe r respiratory tract infection 201496254 J06.9 [id number] Davina Garner MD Main - [facility] [address] [place] [phone] 04/27/2024 11:24:18 04/27/2024 22:19:18 Headache 80148618 R51.9 w/ dizziness- possibly sinusitisS lightly less [...] Young Member ID Guarantor Name 11/27/2023 1 [facility] [employer] - DOS ON OR AFTER 2022 - DUAL ELIGIBLE - FDC OPTIONS AND ONE CARE (MEDICARE REPLACEMENT/AD VANTAGE - HMO) Min Arauz [id number] Min Arauz 03/20/2024 1 [facility] [employer] - DOS ON OR AFTER 2022 - DUAL ELIGIBLE - FDC OPTIONS AND ONE CARE (MEDICARE REPLACEMENT/AD VANTAGE - HMO) Min Arauz [id number] Min Arauz 03/31/2024 1 [facility] [employer] - DOS ON OR AFTER 2022 - DUAL ELIGIBLE - FDC OPTIONS AND ONE CARE (MEDICARE REPLACEMENT/AD VANTAGE - HMO) Min Arauz [id number] Min Arauz 04/21/2024 1 [facility] [employer] - DOS ON OR AFTER 2022 - DUAL ELIGIBLE - FDC OPTIONS AND ONE CARE (MEDICARE REPLACEMENT/AD VANTAGE - HMO) Min Arauz [id number] Min Arauz 04/27/2024 1 [facility] - DOS ON OR AFTER 2022 - DUAL ELIGIBLE - FDC OPTIONS AND ONE CARE (MEDICARE REPLACEMENT/AD VANTAGE - HMO) Min Arauz [id number] Min Arauz Notes Date Note Type Note Provider Name and Address Organization Details Recorded Time 11/27/2023 text/html [facility] Nurse Triage Notes (Padmini Payne): Reason For Request: high BP Chief Complaints: Hypertension PMH: COPD/Asthma, Hypertension, CHF, Heart Disease, Diabetes Allergies: No Known Comments: Referral taken via House Mover [id number]. Member with elevated BP, 153/112 and 156/120, took his HS medications. Member with headache and dizziness, denies chest pain, mild sob, but is not new, denies any arm or jaw pain, no numbness, tingling or weakness anywhere. Member would like to be evaluated. ...................... ...................... ...................... ...................... ...................... ...................... ......... Waste Management Engineer Note From Pradeep Rainey: [facility] visit for [...] afib, no other significant findings. Consulted with [facility] Dr. Lyon who advised pt should take another 500mg tylenol. Reviewed red flags for ED. Patient education provided. ...................... ...................... ...................... ...................... ...................... ...................... ......... Disposition: Fulfilled Thomas Lyon MD [address] [place] [address],[address], [place], [phone], [facility] 11/27/2023 23:06:36 03/20/2024 text/html This was a super vised home visit with physician Rivsa Thapa. [facility] Nurse Triage Notes (Dov Lainez): Reason For Request: Patient was dizzy, fell, and hurt himself, possibly bp problems - Chief Complaints: Dizziness PMH: COPD/Asthma, Hypertension, Congestive Heart Failure, Coronary Artery Disease, Gastroesophageal Reflux Disease (GERD) Comments: Facilities Maintenance Assistant verified the Pt.'s name//address and phone number. [...] Concerns expressed - PT declines ER treatment. Waste Management Engineer Organization Information for Rivas Thapa Legal Name: [facility] [employer] Address: [address] [place] [address], [place] [address], Commercial Collector: Byron Mauro MD CLIA No.: [id number] Waste Management Engineer POC Test Results from Rivas Thapa EKG (14:32:21) EKG test performed. Attachments uploaded as part of this test result can be found under Documents section. ...................... ...................... ...................... ...................... ...................... ...................... ......... Waste Management Engineer Note From Rivas Thapa: This 68-year-old male [...] No lower extremity edema. EKG uploaded, a-fib. [facility] contacted and agrees that an emergency department evaluation is necessary. Patient agreeable to ambulance transport to [facility] emergency department. 911 initiated and verbal SBAR given to [facility] ALS crew. ...................... ...................... ...................... ...................... ...................... ...................... ......... [facility] Consulted: Jeancarlos Gonsales ...................... ...................... ...................... ...................... ...................... ...................... ......... Disposition: Fulfilled Jeancarlos Gonsales MD [address] [place] [address],[address], [place], [address], [place] 03/20/2024 18:19:45 03/31/2024 text/html [facility] Nurse Triage [...] ...................... ...................... ...................... ...................... ...................... ...................... ......... Waste Management Engineer Note From Chuy Finn: Pt had no [...] and rhythm/A-fib. Pt stable. Pt taking eliquis. [facility] Dylon contacted and advised pt of signs indicating the ER, Drink plenty of fluids, Monitor symptoms. Allergies Discussed. ...................... ...................... ...................... ...................... ...................... ...................... ......... [facility] Consulted: Renu Marie ...................... ...................... ...................... ...................... ...................... ...................... ......... Disposition: Syed MARIE MD [address] [facility],[address], [place], [address], [email or web address] - [facility] 03/31/2024 23:40:49 04/27/2024 text/html [facility] Nurse Triage Notes (Padmini Payne - RN): [...] morning. Patient would like to be re-evaluated. Waste Management Engineer Organization Information for Cheikh Mejia Legal Name: [employer] Address: [address] [place] [address], Commercial Collector: Parish Ruiz MD CLIA No.: [id number] Waste Management Engineer POC Test Results from Cheikh Mejia EKG [...] ...................... ...................... ...................... ...................... ...................... ...................... ......... Waste Management Engineer Note From Cheikh Mejia: Dispatched for the scheduled visit for the male patient with a headache. pt. was found alert and oriented x3 sitting in bed c/o of a severe headache from yesterday with dizziness upon sitting up. pt. noted he had been seen by count includes the [facility] on the but could not remember his [...] in all extremities -dcaptbtls -stroke scale findings. [facility] contacted and ordered COVID and FLU swab, BMP and orthostatic vital signs while sitting and standing in addition. 21 gauge butterfly LAC performed for BMP. all results forwarded and [facility] then ordered a 12 lead ekg and IV with 750 ml Normal Saline. IV established 18 gauge left forearm-normal saline IV drip 750 ml. all results forwarded to [facility] with changed after normal saline. [facility] noted she would send amoxicillin and Fluticasone and saline nasal spray to the patients pharmacy for possible nasal infection. red flag warnings discussed and noted to call 911 if headache or dizziness worsened any slurred speech, weakness, facial droop or syncope occurred. all times are approx.report completed by rob mejia. [facility] Lab Orders: rapid SARS CoV 2 Ag, QL IA, respiratory specimen: Performed ...................... ...................... ...................... ...................... ...................... ...................... ......... [facility] Consulted: Davina Garner ...................... ...................... ...................... ...................... ...................... ...................... ......... Disposition: FulfilledSEGMD: letty seen by [facility] on 04/21 and diagnosed with COPD exacerbation [...] Kidney Disease, Obesity. Davina Garner MD [address] [facility],[address], [place], [address], [facility] - [employer] [facility] 04/27/2024 20:33:33
--- OUTSIDE RECORDS SUMMARY | 2024-07-15 09:29 | XMS_ITS ---
Author Organization [facility] Address [address] [place] [address] Care Team Providers Care Music Rehabilitation Therapist Name Role Phone Gemini Fisher M.D. Primary Care Provider Larry Angeles Jr Unavailable [phone] Katherine FORTE, Cipriano Unavailable Unavailable Allergies No Known Allergies REASON FOR VISIT Patient presents today for PREBYSESOPHAGUS Medications Medication SIG (Take, Route, Frequency, Duration) [...] EACH DAY Inhalation for 30 Active Creon [id number] UNIT TOME 2 C PSULAS POR V [...] for 30 Active Vitamin D3 50 MCG (1999 UT) TOME FAUSTINA TAB FRAN TODOS LOS D Oral for 90 Active Simethicone Ultra Strength 1 80 MG Oral for 30 Active Acetaminophen Extra Strength 500 MG TOME FAUSTINA TABLETA POR V A ORAL CADA SEIS HORAS CUANDO SEA NECESARIO MAX 8 TABS DAILY Oral for 5 Active Vitamin E 45 MG (100 UNIT) Oral for 30 Active Social History Tobacco Use: [...] Problem Status W/U Status Risk Notes Problem [id number] Dysphagia, unspecified type (R13.10) Active confirmed Problem 094319272 Abnormal barium swallow (R93.3) Active confirmed Problem 542090248 Gastroesophageal reflux disease, unspecified whether esophagitis present (K21.9) Active confirmed Problem 259837041 Presbyesophagus (K22.89) Active confirmed Vital Signs Temperature 97.8 degrees Fahrenheit 03/13/20 23 Blood pressure systolic 000 mm Hg 03/13/20 23 Blood pressure diastolic 00 mm Hg 023 Height 5 ft 5 in in 03/13/2023 Weight 221 lbs 03/13/2023 BMI 36.77 kg/m2 03/13/2023 Encounters Encounter Location Date Provider Diagnosis [facility] [address] [place] [id number] 03/13/2023 Larry Carnes Jr Dysphagia, unspecified type R13.10 ; Abnormal barium swallow R93.3 ; Gastroesophageal reflux disease, unspecified whether esophagitis present K21.9 and Presbyesophagus K22.89 Assessments Encounter Date Diagnosis (ICD Code) Assessment Notes Treatment Notes Treatment Clinical Notes Section Notes 03/13/2023 Dysphagia, unspecified type (ICD-10 - R13.10) Digestive diseases material was printed We discussed his symptoms today. We discussed gastroesophageal reflux disease today. We recommended he continue pantoprazole. He will undergo upper endoscopy for further evaluation. He is aware of risks and benefits and agrees to proceed. He'll stop diuretics the day of the procedure and Eliquis 3 days before the procedure. 03/13/2023 Abnormal barium swallow (ICD-10 - R93.3) We discussed his symptoms today. We discussed gastroesophageal reflux disease today. We recommended he continue pantoprazole. He will undergo upper endoscopy for further evaluation. He is aware of risks and benefits and agrees to proceed. He'll stop diuretics the day of the procedure and Eliquis 3 days before the procedure. 03/13/2023 Gastroesophageal reflux disease, unspecified whether esophagitis present (ICD-10 - K21.9) We discussed hi s symptoms today. We discussed gastroesophageal reflux disease today. We recommended he continue pantoprazole. He will undergo upper endoscopy for further evaluation. He is aware of risks and benefits and agrees to proceed. He'll stop diuretics the day of the procedure and Eliquis 3 days before the procedure. 03/13/2023 Presbyesophagus (ICD-10 - K22.89) We discussed h is symptoms today. We discussed gastroesophageal reflux disease today. We recommended he continue pantoprazole. He will undergo upper endoscopy for further evaluation. He is aware of risks and benefits and agrees to proceed. He'll stop diuretics the day of the procedure and Eliquis 3 days before the procedure. Plan Of Treatment Treatment Notes Assessment Notes Dysphagia, unspecified type Digestive di seases material was printed Future Test Test Name Order Date UPPER GI ENDOSCOPY 03/13/2023 Next Appt Details Follow Up: prn, Reason: Progress Notes * BEN DAILYIODOB: 1955 (67 yo M)Acc No.[id number]:03/13/2023 Progress Notes Patient:?KOBE DAILY Provider:?Larry Carnes MD :1955???Age:67 Y???Sex:Male Jose Manuel e:03/13/2023 Address:[address] [place], [place] [id number] Pcp:Gemini Fisher Subjective: * Chief Complaints: * ???1. Patient presents today for PREBYSESOPHAGUS. * HPI: ???New symptom(s):? The patient is a pleasant 67-year-old man seen today in consultation. He was referred by his ENT provider for consideration of upper endoscopy for further evaluation of the patient's complaints of dysphagia and hoarseness. Flexible laryngoscopy is reported as normal. He was treated with prednisone gargles but had persistent symptoms. Radiographic evaluation includes CT scanning of the neck which showed no lymphadenopathy or cause for hoarseness. Subsequently a barium swallow was done which showed minimal tertiary contractions after the primary peristaltic wave consistent with mild presbyesophagus. ?Today he complains of intermittent dysphagia in the cervical area. There is occasional vomiting but no hematemesis. He has been taking pantoprazole 40 mg daily for years for reflux symptoms with generally good control. There has been no melena. * ROS:?General/Constitutional:?Change in appetite?denies.?Fatigue?denies.?ENT:?Patient denies?difficulty swallowing.?Respiratory:?Patient denies?shortness of breath.?Cardiovascular:?Patient denies?chest pain.?Gastrointestinal:?Comments?See HPI for details.?Genitourinary:?Difficulty urinating?denies.?Incontinence?denies.?Musculoskeletal:?Patient denies?muscle aches.?Skin:?Patient denies?pruritis.?Neurologic:?Patient denies?low back pain.?Psychiatric:?Patient denies?mental or physical abuse.? * Medical History:?CE/COPD, H ypertension, Fatty liver, Pulmonary nodule, Elevated BMI, Atrial fibrillation, Hypothyroidism, Gastroesophageal reflux disease/dysphagia. * Surgical History:?Cataract s urgery , Umbilical hernia repair , Tonsillectomy . * Family History:?Father: dece ased.?Mother: .? no known hx of colon cancer. * Social History:?Tobacco Use:?Tobacco Use/Smoking?Patient is a?nonsmoker.?Drugs/Alcohol:?Alcohol Screen?Did you have a drink containing alcohol in the past year??No,?Points?0,?Interpretation?Negative.?Miscellaneous:?Marital status: . Occupation: disability. * Medications:?Taking Simethic one Ultra Strength 180 MG Capsule Oral , Taking Vitamin E 45 MG (100 UNIT) Capsule Oral , Taking Acetaminophen Extra Strength 500 MG Tablet TOME FAUSTINA TABLETA POR V A ORAL CADA SEIS HORAS CUANDO SEA NECESARIO MAX 8 TABS DAILY Oral , Taking Vitamin D3 50 MCG (2000 UT) Tablet TOME FAUSTINA TABLETA TODOS LOS D Oral , Taking Metoprolol Succinate ER 200 MG Tablet Extended Release 24 Hour TOME FAUSTINA TABLETA POR V A ORAL TODOS LOS D Oral , Taking hydroCHLOROthiazide 12.5 MG Tablet TOME FAUSTINA TABLETA TODOS LOS D Oral , Taking Zolpidem Tartrate 10 MG Tablet Oral , Taking clonazePAM 1 MG Tablet TOME FAUSTINA TABLETA DOS VECES AL D A CUANDO SEA NECESARIO Oral , Taking Pantoprazole Sodium 40 MG Tablet Delayed Release TOME FAUSTINA TABLETA TODOS LOS D Oral , Taking Creon [id number] UNIT Capsule Delayed Release Particles TOME 2 C PSULAS POR V A ORAL 4 TIMES A DAY FOR 30 DAYS ADMINISTER WITH MEALS AND/OR SNACKS Oral , Taking Furosemide 40 MG Tablet Oral , Taking Flovent HFA 220 MCG/ACT Aerosol Inhalation , Taking Albuterol Sulfate (2.5 MG/3ML) 0.083% Nebulization Solution Inhalation , Taking Rosuvastatin Calcium 40 MG Tablet Oral , Taking Levothyroxine Sodium 100 MCG Tablet Oral , Taking Lisinopril 40 MG Tablet Oral , Taking Meclizine HCl 25 MG Tablet PLEASE SEE ATTACHED FOR DETAILED DIRECTIONS Oral , Taking Loratadine 10 MG Tablet TOME FAUSTINA TABLETA POR VIA ORAL TODOS LOS LANDEROS CUANDO SEA NECESARIO FOR ALLERGIES Oral , Taking Incruse Ellipta 62.5 MCG/ACT Aerosol Powder Breath Activated INHALE 1 PUFF BY MOUTH EVERY DAY AT THE SAME TIME EACH DAY Inhalation , Medication List reviewed and reconciled with the patient * Allergies:?N.K.D.A. Objective: * Vitals:?Wt: 221 lbs, Ht: 5 f t 5 in, BMI:36.77 Index, BP: 000/00 mm Hg, Temp: 97.8. * Examination: ???General Examination: ?GENERAL APPEARANCE:?in no acute distress.?HEAD:?normocephalic.?EYES:?sclera non-icteric.?ORAL CAVITY:?mucosa moist.?NECK/THYROID:?no lymphadenopathy.?SKIN:?anicteric.?HEART:?S1, S2 normal, no murmurs.?LUNGS:?clear to auscultation bilaterally.?CHEST:?normal shape and expansion.?ABDOMEN:?soft, nontender, nondistended, bowel sounds present, no organomegaly .?EXTREMITIES:?no clubbing, cyanosis, or edema.?PSYCH:?cognitive function intact.? Assessment: * Assessment: 1.?Dysphagia, unspecified ty pe - R13.10 (Primary)?2.?Abnormal barium swallow - R93.3?3.?Gastroesophageal reflux disease, unspecified whether esophagitis present - K21.9?4.?Presbyesophagus - K22.89? We discussed his symptoms to day. We discussed gastroesophageal reflux disease today. We recommended he continue pantoprazole. He will undergo upper endoscopy for further evaluation. He is aware of risks and benefits and agrees to proceed. He'll stop diuretics the day of the procedure and Eliquis 3 days before the procedure. Plan: * Treatment: Notes: Digestive diseases material was printed.?? * Procedure Codes:?3017F COLOR ECTAL CA SCREEN DOC REV, G9903 Pt scrn tbco id as non user, G9744 PATIENT NOT ELIG D/T ACTIVE DX HTN * Preventive Medicine:? ??Counseling:?Care goal follow-up plan:?Above Normal BMI Follow-up?Giving encouragement to exercise,?BMI management provided?Yes.? * Follow Up:?prn * * Sign off status: Completed true * Provider:?Larry Carnes MD Date:?05/13/2022 Generated for Dutch rosales/Aylin/Poweritting on:?07/15/2024 09:29 AM EST History and Physical Notes * HPI (History of Present Illness) Category Sub-Category Detail Notes Category Not es New symptom(s) The patient is a pleasant 67-year-old man seen today in consultation. He was referred by his ENT provider for consideration of upper endoscopy for further evaluation of the patient's complaints of dysphagia and hoarseness. Flexible laryngoscopy is reported as normal. He was treated with prednisone gargles but had persistent symptoms. Radiographic evaluation includes CT scanning of the neck which showed no lymphadenopathy or cause for hoarseness. Subsequently a barium swallow was done which showed minimal tertiary contractions after the primary peristaltic wave consistent with mild presbyesophagus. Today he complains of intermittent dysphagia in the cervical area. There is occasional vomiting but no hematemesis. He has been taking pantoprazole 40 mg daily for years for reflux symptoms with generally good control. There has been no melena. Examination Category Sub-Category Detail Notes Category Not es General Examination GENERAL APPEARANCE: in no acute di stress HEAD: normocephalic EYES: sclera non-icteric NECK/THYROID: no lymphadenopathy HEART: S1, S2 normal, no mu rmurs CHEST: normal shape and exp ansion LUNGS: clear to auscultatio n bilaterally ABDOMEN: soft, nontender, non distended, bowel sounds present, no organomegaly SKIN: anicteric EXTREMITIES: no clubbing, cyanosi s, or edema PSYCH: cognitive function i ntact ORAL CAVITY: mucosa moist
--- OUTSIDE RECORDS SUMMARY | 2024-07-15 09:29 | XMS_ITS | Encounter Summary ---
Author Organization [facility] Address [address] [place] [address] Care Team Providers Care Md Physician Dermatologist Name Role Phone Gemini Chavez MD Primary Care Provide r Encounter Details Date Type Department Care Team (Latest Contact Info) Description 07/12/2024 Travel Social History Tobacco Use Types Packs/Day Years [...] Description 07/22/2024 11:00 AM EDT Office Visit [facility] [address] [place] [address] Gemini Chavez MD [address] [place] [address] documented as of this encounter Visit Diagnoses Not on filedocumented in this encounter Additional Health Concerns Assessment Noted Time PHQ-9 Depression Total Score: 0 09/03/19 24 9:55 AM EDT documented as of this encounter Care Teams Md Physician Dermatologist Relationship Specialty Start Date End Date Gemini Chavez MD [address] [place] [address] PCP - General Family Medicine 01/21/18 [place] 03/28/24 documented as of this encounter
--- OUTSIDE RECORDS SUMMARY | 2024-07-15 09:30 | XMS_ITS | Encounter Summary ---
Author Organization Book&Table Address [address] [facility] 7t [place] [address] Care Team Providers Care Truck Spotter Name Role Phone Gemini Chavez MD Primary Care Provide r Encounter Details Date Type Department Care Team (Late st Contact Info) Description 06/16/2024 Orders Only [facility] External Provider, [facility] Social History Tobacco Use Types Packs/Day [...] 11:00 AM EDT Office Visit [facility] MEDICINE [address] [place] [address] Gemini Chavez MD [address] [place] [address] documented as of this encounter Procedures Procedure [...] EST Narrative 06/16/2024 1:02 PM EST ? [facility] ?[address] ?[place] [address] ?XRay Report ? Signed ? Patient: Min Rees ?MR#: ?? [id number] ? : 1955 ?Acct:[id number] ? Age/Sex: 68 / M ?ADM Date: 06/16/24 ? Loc: HO.ED ? Attending Dr: ? Ordering Physician: Sarah Beth Quinonez ?? Date of Service: 06/16/24 ?? Procedure(s): XR shoulder LT min 2V ?? Accession Number(s): [id number] ? cc: Gemini Chavez MD; Sarah Beth [...] DD/ 1245 ? TD/TT: 06/16/24 1250 ? Associate Professor Of Education: CJ ? Procedure Note Tam, Image - 06/16/[address] [address] XRay Report Signed Patient: Min ReesMR#: [id number] : 6Acct:[id number] Age/Sex: 68 / MADM Date: 06/16/24 Loc: HO.ED Attending Dr: Ordering Physician: Sarah Beth Quinonez Date of Service: 06/16/24 Procedure(s): XR shoulder LT min 2V Accession Number(s): [id number] cc: Gemini Chavez MD; Sarah Beth Quinonez [...] 06/16/24 1259 DD/ 1245 TD/TT: 06/16/24 1250 Associate Professor Of Education: CJ [facility] External Provider IMG XR PROCEDURES Edited Result - Final * High Sensitivity Troponin I (06/16/2024 11:38 AM EST) TROPONIN I HIGH SENSITIVITY 3.4 <3.5 - 35.0 ng/L [facility] Comment:The [place] high sens itivity Troponin-I results should beused in conjunction with other diagnostic information suchas ECG, clinical observations and information, and patientsymptoms to aid in the diagnosis of NV. 06/16/2024 11:3 8 AM EST 06/16/2024 11:41 AM EST us Generic External Data Provider LAB BLOOD ORDERAB LES Final Result [facility] [address] [place] [address] [phone] * CT Head w/o Contrast (06/16/2024 9:18 AM EST) Anatomical Region Laterality Modality Head, Neck Computed Tomogra phy 06/16/2024 9:18 AM EST Narrative 06/16/2024 9:52 AM EST ? [facility] ?[address] ?[place] [address] ? CT Scan Report ? Signed ? Patient: Min Rees ?MR#: ?? [id number] ? : 1955 ?Acct:[id number] ? Age/Sex: 68 / M ?ADM Date: 06/16/24 ? Loc: HO.ED ? Attending Dr: ? Ordering Physician: Ysabel Benton [employer]ICE OFFICER ?? Date of Service: 06/16/24 ?? Procedure(s): CT head/brain wo IV con ?? Accession Number(s): [id number] ? cc: Gemini Chavez MD; Ysabel Benton NP ? Report Number: ?? [id number]: Total DLP = ??793.00 mGy-cm ?? EXAMINATION: [...] DD/ 0918 ? TD/TT: 06/16/24 0944 ? Associate Professor Of Education: ? Procedure Note Tam, Jeancarlos - 06/16/[address] [address] [address] Scan Report Signed Patient: Min Rees#: [id number] : 6Acct:[id number] Age/Sex: 68 / MADM Date: 06/16/24 Loc: HO.ED Attending Dr: Ordering Physician: Ysabel Benton NP Date of Service: 06/16/24 Procedure(s): CT head/brain wo IV con Accession Number(s): [id number] cc: Gemini Chavez MD; Ysabel Benton NP Report Number: [id number]: Total DLP = 793.00 mGy-cm EXAMINATION: CT [...] in OV> 06/16/2449 DD/ 7 TD/TT: 06/16/24943 Associate Professor Of Education: [facility] External Provider IM CT PROCEDURES Edited Result - Final * SARS-CoV-2 RNA, Influenza A/B, and RSV RNA, Ql NAAT (06/16/2024 9:16 AM EST) Influenza A PCR NEGATIVE Negative [facility] Influenza B PCR NEGATIVE Negative [facility] Resp Syncy Virus RNA Qual PCR NEGATIVE Negative [facility] SARS COV2 PCR NEGATIVE Negative [facility] Comment:All test results mus t be [...] use by authorized laboratories.Testing performed on the [place] GeneXpert utilizingreal-time RT-PCR.All SARS CoV2 and positive influenza A/B results arereported to [facility]. 06/16/2024 9:16 AM EST 06/16/2024 9:21 AM EST Generic External Data Provider LAB MICROBIOLOGY - GENERAL ORDERABLES Final Result Performing Organization Address [facility] de Phone Number [facility] [address] [place] [phone] * High Sensitivity Troponin I (06/16/2024 9:16 AM EST) Pathologist [facility] TROPONIN I HIGH SENSITIVITY 4.2 <3.5 - 35.0 ng/L [facility] Comment:The [place] high sens itivity Troponin-I results should beused in conjunction with other diagnostic information suchas ECG, clinical observations and information, and patientsymptoms to aid in the diagnosis of NV. 06/16/2024 9:16 AM EST 06/16/2024 9:21 AM EST Generic External Data Provider LAB BLOOD ORDERAB LES Final Result Performing Organization Address [facility] Co de Phone Number [facility] [address] [place] [address] [phone] * (ABNORMAL) B Type Natriuretic Peptide (BNP) (06/16/2024 9:16 AM EST) Pathologist [facility] B Type Natriuretic Peptide 238(H) <100 pg/mL [facility] Comment:For those patients w ho are being treated with Natrecor(nesiritide, recombinant BNP), BNP testing should beperformed at least two hours post treatment in order toensure that only endogenous levels of BNP are detected. 06/16/2024 9:16 AM EST 06/16/2024 9:21 AM EST Generic External Data Provider LAB BLOOD ORDERAB LES Final Result Performing Organization Address City/[facility]/ZIP Co de Phone Number [facility] [address] [place] [address] [phone] * Lipase (06/16/2024 9:16 AM EST) Pathologist [facility] Lipase 52 8 - 78 U/L [facility] 06/16/2024 9:16 AM EST 06/16/2024 9:21 AM EST us Generic External Data Provider LAB BLOOD ORDERAB LES Final Result Performing Organization Address City/[facility]/ZIP Co de Phone Number [facility] [address] [place] [address] [phone] * (ABNORMAL) Basic Metabolic Panel (06/16/2024 9:16 AM EST) [facility] Sodium 141 135 - 145 mmol/L [facility] Potassium 3.5 3.3 - 5.1 mmol/L [facility] Chloride 109(H) 96 - 108 mmol/L [facility] Carbon Dioxide 26 22 - 29 mmol/L [facility] Anion Gap 10(L) 12 - 20 [facility] Urea Nitrogen (BUN) 12 9 - 16 mg/dL [facility] Creatinine, Serum 1.10 0.5 - 1.4 mg/dL [facility] Creatinine Clr Calc Pharmacy 68.0 [facility] Comment:eGFR (calculated fro m the MDRD study equation) and eCrCl(calculated from the Cockcroft-Gault equation) are based ondifferent parameters and may not yield comparable results.If eCrCl result is absurd, please check patient'sheight/weight. Estimated Glomerular Filt Rate >60 [facility] Comment:Chronic Kidney Disea se: Estimated GFR < 60 mL/min/1.82p0Oplnny Kidney Disease: Estimated GFR < 15 mL/min/1.73m2 Glucose 140(H) 60 - 115 mg/dL [facility] Calcium 8.7 8.4 - 10.2 mg/dL [facility] 06/16/2024 9:16 AM EST 06/16/2024 9:21 AM EST us Generic External Data Provider LAB BLOOD ORDERAB LES Final Result Performing Organization Address City/[facility] Co de Phone Number [facility] [address] [place] [phone] * Hepatic Function Panel (06/16/2024 9:16 AM EST) Bilirubin, Total 0.8 0.0 - 1.0 mg/dL [facility] Bilirubin, Direct 0.3 0.0 - 0.5 mg/dL [facility] Aspartate Amino Transferase 22 5 - 37 U/L [facility] Alanine Aminotransferase 18 0 - 40 U/L [facility] Total Protein 6.5 6.5 - 8.0 g/dL [facility] Albumin Level 3.8 3.5 - 5.0 g/dL [facility] Alkaline Phosphatase 43 39 - 117 U/L [facility] 06/16/2024 9:16 AM EST 06/16/2024 9:21 AM EST us Generic External Data Provider LAB BLOOD ORDERAB LES Final Result [facility] [address] [place] [address] [phone] * (ABNORMAL) Prothrombin Time-INR (06/16/2024 9:16 AM EST) Pathologist [facility] Prothrombin Time 15.5(H) 10.9 - 12.4 SEC [facility] INTERNATIONAL NORM RATIO 1.3(H) 0.9 - 1.1 [facility] Comment:INTERNATIONAL NORMAL IZED RATIO (INR) [...] ORDERAB LES Final Result Performing Organization Address [facility] de Phone Number [facility] [address] [place] [phone] * (ABNORMAL) CBC auto differential (06/16/2024 9:16 AM EST) [facility] White Blood Count 6.8 4.8 - 10.8 X10*3/uL [facility] Red Blood Count 3.61(L) 4.60 - 5.80 X10*6/uL [facility] Hemoglobin 11.5(L) 14.0 - 18.0 g/dl [facility] Hematocrit 33.3(L) 42.0 - 52.0 % [facility] Mean Corpuscular Volume 92.2 80.0 - 98.0 fL [facility] Mean Corpuscular Hemoglobin 31.9 27.0 - 33.0 pg [facility] Mean Corpuscular HGB Conc 34.5 31.0 - 36.0 g/dl [facility] Red Cell Distribution Width 12.0 11.0 - 16.0 % [facility] Platelet Count 173 160 - 400 X10*3/uL [facility] Mean Platelet Volume 10.1 9.4 - 12.4 fL [facility] Neutrophils Percent Auto 73.8(H) 45 - 73 % [facility] Imm Gran Pct Auto 0.3 0.0 - 0.4 % [facility] Lymphocytes Percent Auto 14.9(L) 20 - 40 % [facility] Monocytes Percent Auto 10.3 2 - 11 % [facility] Eosinophils Percent Auto 0.4 0 - 4 % [facility] Basophils Percent Auto 0.3 0 - 2 % [facility] NRBC Pct Auto 0.0 0.0 - 0.2 /100WBC [facility] Neutrophils Absolute Auto 5.0 2.0 - 8.3 x10*3/uL [facility] Imm Gran Abs Auto 0.02 0.00 - 0.03 X10*3/uL [facility] Lymphocytes Absolute Auto 1.0(L) 1.2 - 4.9 X10*3/uL [facility] Monocytes Absolute Auto 0.7 0.1 - 1.2 X10*3/uL [facility] Eosinophils Absolute Auto 0.0 0.0 - 0.4 X10*3/uL [facility] Basophils Absolute Auto 0.0 0.0 - 0.2 X10*3/uL [facility] NRBC Abs Auto 0.000 0.0 - 0.012 X10*3/uL [facility] 06/16/2024 9:16 AM EST 06/16/2024 9:21 AM EST us Generic External Data Provider LAB BLOOD ORDERAB LES Final Result [facility] [address] [place] [address] [phone] * CT Cervical Spine w/o Contrast (06/16/2024 9:08 AM EST) Anatomical Region Laterality Modality Spine, C-spine Computed Tomogra phy 06/16/2024 9:08 AM EST Narrative 06/16/2024 9:58 AM EST ? [facility] ?[address] ?[place], [place] [address] ? CT Scan Report ? Signed ? Patient: Davonte Cano,Min ?MR#: ?? [id number] ? : 1955 ?Acct:[id number] ? Age/Sex: 68 / M ?ADM Date: 06/16/24 ? Loc: HO.ED ? Attending Dr: ? Ordering Physician: Ysabel Benton NP ?? Date of Service: 06/16/24 ?? Procedure(s): CT cervical spine wo IV con ?? Accession Number(s): [id number] ? cc: Gemini Chavez MD; Ysabel Benton NP ? Report Number: ?? [id number]: Total DLP = ??436.00 mGy-cm ?? EXAMINATION: [...] ??06/16/2024 09:56 AM EST RP ?? Workstation: [id number] ? Dictated By: ?Bladimir Doherty MD ? Signed By: ?<Electronically signed by Bladimir Doherty MD in OV> ?06/16/24 0956 ? DD/ 0908 ? TD/TT: 06/16/2444 ? Associate Professor Of Education: ? Procedure Note Jeancarlos Turcios - 06/16/[address] [address] [address] Scan Report Signed Patient: Min ReesMR#: [id number] : 6Acct:[id number] Age/Sex: 68 / MADM Date: 06/16/24 Loc: HO.ED Attending Dr: Ordering Physician: Ysabel Benton NP Date of Service: 06/16/24 Procedure(s): CT cervical spine wo IV con Accession Number(s): [id number] cc: Gemini Chavez MD; Ysabel Benton NP Report Number: [id number]: Total DLP = 436.00 mGy-cm EXAMINATION: CT [...] by: Bladimir Doherty MD 06/16/2024 09:56 AM [facility] Dictated By: Bladimir Doherty MD Signed By: <Electronically signed by Bladimir Doherty MD in OV> 06/16/2456 DD/ 0908 TD/TT: 06/16/2444 Associate Professor Of Education: us [facility] External Provider IMG CT PROCEDURES Edited Result - Final * XR Chest 1 View (06/16/2024 8:45 AM EST) Anatomical Region Laterality Modality Chest Radiographic Claire ging 06/16/2024 8:45 AM EST Narrative 06/16/2024 9:05 AM EST ? [facility] ?[address] ?[place], [place] [address] ?XRay Report ? Signed ? Patient: Min Rees ?MR#: ?? [id number] ? : 1955 ?Acct:[id number] ? Age/Sex: 68 / M ?ADM Date: 06/16/24 ? Loc: HO.ED ? Attending Dr: ? Ordering Physician: Generic ED Physician ?? Date of Service: 06/16/24 ?? Procedure(s): XR chest 1V ?? Accession Number(s): [id number] ? cc: Gemini Chavez MD; Generic ED [...] DD/ 0845 ? TD/TT: 06/16/24 0850 ? Associate Professor Of Education: ? Procedure Note Donotuseinterpreter, Image - 06/16/2024 [facility] [address] [place] [address] XRay Report Signed Patient: Min ReesMR#: [id number] : 6Acct:[id number] Age/Sex: 68 / MADM Date: 06/16/24 Loc: HO.ED Attending Dr: Ordering Physician: Generic ED Physician Date of Service: 06/16/24 Procedure(s): XR chest 1V Accession Number(s): [id number] cc: Gemini Chavez MD; Generic ED Physician [...] by: Valentin Resendiz MD 06/16/2024 09:02 AM [facility] Dictated By: Valentin Guzman MD Signed By: <Electronically signed by Valentin Ruelas MDin OV> 06/16/24 0902 DD/ 0845 TD/TT: 06/16/24 0850 Associate Professor Of Education: [facility] External Provider IMG XR PROCEDURES Edited Result - Final documented in this encounter Visit Diagnoses Not on filedocumented in this encounter Additional Health Concerns Assessment Noted Time PHQ-9 Depression Total Score: 0 09/03/19 24 9:55 AM EDT documented as of this encounter Care Teams Truck Spotter Relationship Specialty Start Date End Date Gemini Chavez MD [address] [place] [address] PCP - General Family Medicine 01/21/18 [employer] 11/17/24 documented as of this encounter
--- OUTSIDE RECORDS SUMMARY | 2024-07-15 09:30 | XMS_ITS | Encounter Summary ---
Author Organization Re-APP Address [address] [facility] [address]t [place] [address] Care Team Providers Care Gyroscope Repairer Name Role Phone Gemini Chavez MD Primary Care Provide r Encounter Details Date Type Department Care Team (Late st Contact Info) Description 06/18/2024 Orders Only [facility] MEDICINE [address] [place], [place] [phone] Gemini Chavez MD [address] [place], [place] [phone] Social History Tobacco Use Types Packs/Day Years [...] Office Visit [facility] MEDICINE [address] [place] [phone] Gemini Chavez MD [address] [place] [phone] documented as of this encounter Visit Diagnoses Not on filedocumented in this encounter Additional Health Concerns Assessment Noted Time PHQ-9 Depression Total Score: 0 09/03/19 24 9:55 AM EDT documented as of this encounter Care Teams Gyroscope Repairer Relationship Specialty Start Date End Date Gemini Chavez MD [address] [place] [phone] PCP - General Family Medicine 01/21/18 [employer] 03/28/24 documented as of this encounter
== END 2024-07-15 09:31 | disposition home or self-care (01) ==
PROVIDERS: PCP Internal Medicine; Visit Provider Internal Medicine
DX: E66.9 Obesity, unspecified (principal); G47.33 Obstructive sleep apnea (adult) (pediatric); J44.9 Chronic obstructive pulmonary disease, unspecified
CPT/HCPCS: 99213

== ENCOUNTER → 2024-07-15 08:48 | Outpatient (BNVA) | payer OTHER, SELFPAY | PROVIDERS: PCP Internal Medicine; Visit Provider Internal Medicine | DX: J44.89 Other specified chronic obstructive pulmonary disease (principal); E66.9 Obesity, unspecified; G47.33 Obstructive sleep apnea (adult) (pediatric); Z68.33 Body mass index [BMI] 33.0-33.9, adult | CPT/HCPCS: 99212 ==

== ENCOUNTER 2024-07-22 11:53 | Emergency (ER) | payer OTHER, SELFPAY ==
[2024-07-22] VITALS (7 sets, daily range): BP systolic 118–147; BP diastolic 72–93; PULSE 65–82; RESP 12–18; TEMP 36.3–36.8; O2SAT 96–100; BMI 37.3
--- NOTE | ~2024-07-22 | XR_ITS ---
EXAMINATION: XR CHEST CLINICAL INFORMATION: chest pain/ sob COMPARISON: 06/16/2024, 08/08/2023. TECHNIQUE: Frontal view of the chest was obtained. FINDINGS: The cardiac, hilar, and mediastinal contours are normal. Aortic mural calcification. Lungs demonstrate minimal bibasilar atelectatic changes. There is suggestion of bronchial thickening in the bilateral mid and lower lungs, suggesting airways disease. No consolidation. No pneumothorax or effusion. Old left rib fractures again noted. Mild spinal degenerative changes with mild right convex scoliosis. No soft tissue abnormalities. XR/XR chest 1V IMPRESSION: Thickening of the small airways in the mid and lower lungs bilaterally suggesting infectious or reactive airways disease. Lungs otherwise clear. Electronically signed by: Bladimir Doherty MD 07/22/2024 12:57 PM EDT
--- NOTE | 2024-07-22 12:06 | MHC.EDTECH ---
pt changed into hospital gown and placed on playground monitor
--- NOTE | 2024-07-22 12:20 | ECG_ITS ---
Test Reason : CP Blood Pressure : */* mmHG Vent. Rate : 78 BPM Atrial Rate : * BPM P-R Int : * ms QRS Dur : 78 ms QT Int : 392 ms P-R-T Axes : * 3 8 degrees QTcB Int : 446 ms Atrial fibrillation Abnormal ECG When compared with ECG of 01-Jul-2024 09:49, No significant change was found Referred By: Generic ED Physician Electronically Signed By: ANDREWS MARTINS
[2024-07-22 12:36] LABS: MANUAL DIFF FLAG NO
[2024-07-22 12:38] LABS: Basophils Percent Auto 0.3 % (0-2); Eosinophils Absolute Auto 0.1 X10*3/uL (0.0-0.4); Eosinophils Percent Auto 0.7 % (0-4); Hematocrit 37.1 % (42.0-52.0); Hemoglobin 12.9 g/dl (14.0-18.0); Imm Gran Abs Auto 0.03 X10*3/uL (0.00-0.03); Imm Gran Pct Auto 0.3 % (0.0-0.4); Lymphocytes Absolute Auto 1.4 X10*3/uL (1.2-4.9); Lymphocytes Percent Auto 14.3 % (20-40); Mean Corpuscular HGB Conc 34.8 g/dl (31.0-36.0); Mean Corpuscular Hemoglobin 31.1 pg (27.0-33.0); Mean Corpuscular Volume 89.4 fL (80.0-98.0); Mean Platelet Volume 10.3 fL (9.4-12.4); Monocytes Percent Auto 10.4 % (2-11); Neutrophils Absolute Auto 7.3 x10*3/uL (2.0-8.3); Platelet Count 181 X10*3/uL (160-400); Red Blood Count 4.15 X10*6/uL (4.60-5.80); Red Cell Distribution Width 12.1 % (11.0-16.0); White Blood Count 9.9 X10*3/uL (4.8-10.8)
[2024-07-22 12:58] LABS: Alanine Aminotransferase 28 U/L (0-40); Alkaline Phosphatase 47 U/L (39-117); Anion Gap 12 (12-20); Aspartate Amino Transferase 20 U/L (5-37); Blood Urea Nitrogen 24 mg/dL (9-16); Calcium 9.3 mg/dL (8.4-10.2); Carbon Dioxide 22 mmol/L (22-29); Chloride 110 mmol/L (96-108); Creatinine Clr Calc Pharmacy 63.4; Estimated Glomerular Filt Rate > 60; Glucose Random 85 mg/dL (60-115); Potassium 4.4 mmol/L (3.3-5.1); Sodium 140 mmol/L (135-145); Total Protein 6.9 g/dL (6.5-8.0)
[2024-07-22 12:59] LABS: Troponin-I High Sensitivity 3.6 ng/L (<3.5-35.0)
[2024-07-22 13:24] LABS: Influenza A PCR NEGATIVE (Negative); Influenza B PCR NEGATIVE (Negative); Resp Syncy Virus RNA Qual PCR NEGATIVE (Negative); SARS COV2 PCR INHOUSE NEGATIVE (Negative)
--- NOTE | 2024-07-22 13:57 | ECG_ITS ---
Test Reason : CP WORSENING Blood Pressure : */* mmHG Vent. Rate : 67 BPM Atrial Rate : * BPM P-R Int : * ms QRS Dur : 72 ms QT Int : 404 ms P-R-T Axes : * 5 3 degrees QTcB Int : 426 ms Atrial fibrillation Abnormal ECG When compared with ECG of 22-Jul-2024 12:24, No significant change was found Referred By: Generic ED Physician Electronically Signed By: ANDREWS MARTINS
--- NOTE | 2024-07-22 13:58 | PC.NURSE ---
patient states that chest pain is worsening, additional EKG ordered, patient VSS at this time
--- NOTE | 2024-07-22 15:35 | PC.NURSE ---
this RN added repeat trop for 3hr. patient states he is still having chest pain without relief. no ED provider signed up yet.
--- NOTE | 2024-07-22 16:00 | ED.CHESTPAIN ---
HPI - Chest Pain General Chief Complaint: Chest Pain Stated Complaint: CP FROM WALKIN PER EMS Time Seen by Provider: 07/22/24 15:57 Source: patient, family and EMS Mode of arrival: EMS Limitations: language barrier (Citizen Of [place]-speaking bilingual medical assistant utilized) History of Present Illness ED Provider: Gudelia Mcgregor NP HPI narrative: Patient is a 60-year-old male who presents emergency department via EMS coming from [facility]. He reports that he awoke around 05:30 this morning in she was experiencing substernal chest pain described as a stabbing sensation. Reports that this has been happening intermittently throughout the day lasting seconds to minutes at a time but occurs a couple of times per hour. Pain is nonradiating, denies associated diaphoresis, nausea, vomiting, worsening on exertion. Pain is felt at rest. He denies history of similar pain in the past. Denies associated dizziness or lightheadedness, neck pain. He admitted nursing staff that he has been experiencing shortness of breath but this is consistent with his baseline he states it is no worse than usual and he denies recent URI symptoms associated with this. He also reported to nurse during triage that he was having swelling in his lower extremities, this however was 2 days ago and he was not wearing his compression stockings, he does not have lower extremity swelling but seems that this has been chronic for many years. Related Data Home Medications ?Medication ?Instructions ?Recorded ?Confirmed apixaban 5 mg tablet 5 mg PO BID 05/24/20 07/15/24 cholecalciferol (vitamin D3) 50 50 mcg PO DAILY 05/24/20 07/15/24 mcg (2,000 unit) tablet clonazepam 1 mg tablet 1 mg PO BID PRN Anxiety 05/24/20 07/15/24 hydroxyzine pamoate 25 mg capsule 25 mg PO BID PRN Anxiety 05/24/20 07/15/24 levothyroxine 100 mcg tablet 100 mcg PO DAILY 05/24/20 07/15/24 lisinopril 40 mg tablet 40 mg PO DAILY 05/24/20 07/15/24 metoprolol succinate 200 mg 200 mg PO DAILY 05/24/20 07/15/24 tablet,extended release 24 hr rosuvastatin 40 mg tablet 40 mg PO DAILY 05/24/20 07/15/24 zolpidem 10 mg tablet 10 mg PO BEDTIME PRN Insomnia 05/24/20 07/15/24 albuterol sulfate 2.5 mg/3 mL 3 mg inhalation QID PRN Shortness 03/20/21 07/15/24 (0.083 %) solution for nebulization Of Breath Or Wheezing diclofenac sodium 1 % topical gel 2 g topical QID 08/08/23 07/15/24 vitamin E (dl, acetate) 45 mg (100 45 mg PO DAILY 08/08/23 07/15/24 unit) capsule umeclidinium 62.5 mcg/actuation 1 inh inhalation DAILY 03/17/24 07/15/24 blister powder for inhalation (Incruse Ellipta) semaglutide (weight loss) 2.4 mg subcut 03/19/24 07/15/24 mg/0.75 mL subcutaneous pen injector (Wegovy) furosemide 40 mg tablet 40 mg PO Q2D 05/25/24 07/15/24 hydrochlorothiazide 12.5 mg tablet 12.5 mg PO DAILY 05/25/24 07/15/24 meclizine 25 mg tablet 25 mg PO DAILY 05/25/24 07/15/24 metformin 500 mg tablet 500 mg PO BID 05/25/24 07/15/24 Previous Rx's ?Medication ?Instructions ?Recorded epinephrine 0.3 mg/0.3 mL 0.3 mg (0.3 mL) IM Q4H PRN 04/07/23 injection, auto-injector (EpiPen anaphylaxis #2 ea 2-Blaise) albuterol sulfate 90 mcg/actuation 2 puff PO Q6H PRN shortness of 12/23/23 aerosol inhaler (Ventolin HFA) breath or wheezing #18 ea bisacodyl 5 mg tablet,delayed 10 mg (2 x 5 mg) PO BEDTIME 2 days 02/04/24 release (Dulcolax (bisacodyl)) #4 tabs L.acidophil,salivari-Bifido 1 cap PO DAILY #30 caps 03/19/24 bifidum-Strep thermoph 175 mg capsule (Acidophilus Probiotic Blend) [id number]-[id number]-dqmvzxk 2 cap PO QID #720 caps 03/19/24 36,000-114,000-180,000 unit capsule,delay rel (Creon) pantoprazole 40 mg tablet,delayed 40 mg PO DAILY #30 tabs 03/19/24 release sennosides 8.6 mg tablet (Senna 17.2 mg (2 x 8.6 mg) PO BEDTIME 03/19/24 Laxative) #60 tabs simethicone 180 mg capsule 180 mg PO QID 30 days #120 caps 03/19/24 fluticasone 250 mcg-salmeterol 50 1 ea PO BID #180 ea 06/23/24 mcg/dose blistr powdr for inhalation (Wixela Inhub) Allergies Allergy/AdvReac Type Severity Reaction Status Date / Time Iodinated Contrast Media Allergy Unknown HIVES Verified 07/22/24 12:14 [CONTRAST, IV] kiwi [KIWI] Allergy Unknown THROAT Verified 07/22/24 12:14 SWELLING Review of Systems Review of Systems: Yes all other systems are reviewed and are negative [facility] Past Medical History Attestation statement: The following information was validated with the patient. Source: old records reviewed Medical History Pre-op examination Colon cancer screening Hoarseness Dysphagia Throat disorder Bronchitis CHF (congestive heart failure) Afib Allergic rhinitis COPD (chronic obstructive pulmonary disease) CE (obstructive sleep apnea) Obesity (BMI 30-39.9) Hypothyroid Anxiety Palpitation HTN (hypertension) Surgical History Hx of umbilical hernia repair History of surgery on arm Hx of eye surgery Hx of colonoscopy Hx of knee surgery Hx of tonsillectomy Family History Family History Family/Other No problems noted. Social History Social History Household Members: None Housing: Apartment Do you presently have visiting nurse or other home services: Yes Alcohol intake: former Patient Tobacco Use Status: Former Tobacco user Advance Directives: Yes Advance Directives on File: Yes Advance Directives Date on File: 08/11/23 Do you have a plan to hurt others: No Plan service: No Physical Exam Vital Signs: Vital Signs: Last Vital Signs Temp 97.4 F 07/22/24 20:50 Pulse 67 07/22/24 20:50 Resp 16 07/22/24 20:50 BP 129/86 07/22/24 20:50 Pulse Ox 96 07/22/24 20:50 O2 Del Method Room Air 07/22/24 20:50 BMI result Body Mass Index 37.3 Appearance: Alert.?Oriented to person, place and time. No acute distress.?Normal affect. Eyes: Pupils equal, round and reactive to light.? ENT: Pharynx normal.?? Neck: Normal inspection.? Neck supple.??No JVD. CVS: Heart sounds normal. Normal heart rate and rhythm.? Pulses normal.?? Respiratory: No respiratory distress.? Lung sounds clear to auscultation bilaterally?? Abdomen: Soft and non-tender. Normoactive bowel sounds. No pulsatile mass.?? Skin: Skin warm and dry.? Normal skin color.? ?? Extremities: No lower extremity edema.? No calf ttp? Neuro: Moves all extremities spontaneously. Sensation intact bilaterally. No focal neuro deficits. Ambulates with normal steady gait. Course Reevaluation(s) Reevaluation #1: High sensitive troponin x3 negative. Received nitro in the ED, has been 3 hours with no further chest pain. Reviewed this case with my attending Dr. Perez who recommends discharge home and outpatient follow-up with Cardiology. Discussed strict return precautions. All questions answered Medications Administered Discontinued Medications Generic Name Dose Route Start Last Admin Trade Name Freq PRN Reason Stop Dose Admin Acetaminophen 975 mg 07/22/24 18:36 07/22/24 18:43 Acetaminophen 325 Mg Tablet PO 07/22/24 18:37 975 mg ONCE ONE Administration Nitroglycerin 0.5 inch 07/22/24 16:21 07/22/24 16:33 Nitroglycerin 2 % Oint 1 Gm Packet TRANSDERMA 07/22/24 16:22 0.5 inch ONCE ONE Administration Medical Decision Making Medical Decision Making MDM Narrative: I assumed care of patient at 16:10 Patient is a 68-year-old male with past medical history of CKD, asthma, COPD, vertigo, morbid obesity, sleep apnea, atrial fibrillation apixaban, hypertension, hypothyroidism, diabetes, hyperlipidemia, GERD who presents to the emergency department for evaluation with complaint of chest pain, intermittent in nature and staying seconds to minutes at a time a few times every hour without identifiable exacerbating or alleviating factors. Pain self resolves. No evidence of volume overload or shock on exam. EKG revealing atrial fibrillation with ventricular rate of 67, QTC 426, T-wave inversion in the III does not new seen on priors, is without signs of acute ischemia. EKG without evidence of STEMI. High sensitive troponin x2 were obtained prior to my assumption of care both of which are negative. Heart Score of 4. CXR is without consolidation or infiltrate to suggest pneumonia, findings of reactive airway disease which he has a history of but he is without tachypnea, hypoxia, or wheezing to be of concern for acute exacerbation. His viral serologies are negative. CBC is without leukocytosis, has a mild normocytic anemia not meeting transfusion criteria, no thrombocytopenia. No electrolyte derangement. No BEE. LFTs unremarkable. Low suspicion for acute PE as he is anticoagulated on Eliquis endorsing compliance, he is without tachycardia hypoxia or tachypnea. No recent trauma or injury, no tracheal deviation, unlikely tension pneumothorax. No abdominal tenderness upon palpation, negative Fuchs sign, unlikely acute cholecystitis, choledocholithiasis, no fever or jaundice to suggest acute cholangitis, may possibly be biliary colic secondary to cholelithiasis. Denies associated acid reflux, no tenderness upon palpation over the epigastrium or left upper quadrant to suggest gastritis, no recent hematemesis history less likely to suggest PUD. Denies excessive alcohol consumption, history of diabetes, lower suspicion acute pancreatitis. Differential Diagnosis Differential Diagnoses: The differential diagnosis associated with the presentation includes (See narrative above) Admission/Observation Consideration of admission/observation: Escalation of care including admission/observation considered (See narrative above and course narrative for further detail) Lab Data MDM Lab Attestation statement: I reviewed the patient's lab results. 07/22/24 12:32 07/22/24 12:32 Labs: Lab Results 07/22/24 07/22/24 07/22/24 Range/Units 12:32 15:38 19:40 WBC 9.9 (4.8-10.8) X10*3/uL RBC 4.15 L (4.60-5.80) X10*6/uL Hgb 12.9 L (14.0-18.0) g/dl Hct 37.1 L (42.0-52.0) % MCV 89.4 (80.0-98.0) fL MCH 31.1 (27.0-33.0) pg MCHC 34.8 (31.0-36.0) g/dl RDW 12.1 (11.0-16.0) % Plt Count 181 (160-400) X10*3/uL MPV 10.3 (9.4-12.4) fL Immature Gran % (Auto) 0.3 (0.0-0.4) % Neut % (Auto) 74.0 H (45-73) % Lymph % (Auto) 14.3 L (20-40) % [place] % (Auto) 10.4 (2-11) % Eos % (Auto) 0.7 (0-4) % Baso % (Auto) 0.3 (0-2) % Lymph # (Auto) 1.4 (1.2-4.9) X10*3/uL [place] # (Auto) 1.0 (0.1-1.2) X10*3/uL Eos # (Auto) 0.1 (0.0-0.4) X10*3/uL Baso # (Auto) 0.0 (0.0-0.2) X10*3/uL Abs Immat Gran (auto) 0.03 (0.00-0.03) X10*3/uL Absolute Neuts (auto) 7.3 (2.0-8.3) x10*3/uL Absolute Nucleated RBC 0.000 (0.0-0.012) X10*3/uL Nucleated RBC % (auto) 0.0 (0.0-0.2) /100WBC Sodium 140 (135-145) mmol/L Potassium 4.4 (3.3-5.1) mmol/L Chloride 110 H (96-108) mmol/L Carbon Dioxide 22 (22-29) mmol/L Anion Gap 12 (12-20) BUN 24 H (9-16) mg/dL Creatinine 1.14 (0.5-1.4) mg/dL Estim Creat Clear Calc 63.4 Estimated GFR > 60 Random Glucose 85 (60-115) mg/dL Calcium 9.3 (8.4-10.2) mg/dL Total Bilirubin 1.0 (0.0-1.0) mg/dL AST 20 (5-37) U/L ALT 28 (0-40) U/L Alkaline Phosphatase 47 (39-117) U/L Troponin I High Sens 3.6 3.8 3.6 (<3.5-35.0) ng/L B-Natriuretic Peptide 181 H (<100) pg/mL Total Protein 6.9 (6.5-8.0) g/dL Albumin 4.0 (3.5-5.0) g/dL Influenza Type A (PCR) NEGATIVE (Negative) Influenza Type B (PCR) NEGATIVE (Negative) RSV RNA Qual (PCR) NEGATIVE (Negative) SARS-CoV-2 RNA (RT-PCR) NEGATIVE (Negative) Independent Interpretation I performed an independent interpretation of an: EKG (See narrative above) and Plain X-Ray (No consolidation or infiltrate) Radiology Impression Discussion of test interpretation with radiology: I have reviewed the radiologist's reading. Radiologist Impression: XR/XR chest 1V IMPRESSION: Thickening of the small airways in the mid and lower lungs bilaterally suggesting infectious or reactive airways disease. Lungs otherwise clear. Independent Historian Clinical information obtained from an independent historian. History obtained from or confirmed by: Spouse External Record Review External record reviewed: Outpatient record Chronic Conditions Patient?s care impacted by: Other (See narrative above) Discharge Plan Discharge Clinical Impression: Chest pain Patient Disposition: Home, Self-Care Instructions: Chest Pain (ED) Additional Instructions: You were evaluated in the emergency department today for chest pain that started this morning, EKG did not show signs of a heart attack or abnormal findings. High sensitive troponin x3 were negative which is reassuring. It is recommended that you follow-up with your workers' compensation magistrate, please contact their office tomorrow to arrange for an outpatient follow-up within the next 3 days. You may return to emergency department any new or worsening symptoms or concerns. Prescriptions: No Action albuterol sulfate [Ventolin HFA] 90 mcg/actuation HFA aerosol inhaler 2 puff PO Q6H PRN (Reason: shortness of breath or wheezing) Qty: 18 0RF fluticasone propion-salmeterol [Wixela Inhub] 250-50 mcg/dose blister with device 1 ea PO BID Qty: 180 1RF epinephrine [EpiPen 2-Blaise] 0.3 mg/0.3 mL auto-injector 0.3 mg IM Q4H PRN (Reason: anaphylaxis) Qty: 2 0RF vitamin E (dl, acetate) 45 mg (100 unit) capsule 45 mg PO DAILY diclofenac sodium 1 % gel 2 g topical QID furosemide 40 mg tablet 40 mg PO Q2D zolpidem 10 mg tablet 10 mg PO BEDTIME PRN (Reason: Insomnia) hydroxyzine pamoate 25 mg capsule 25 mg PO BID PRN (Reason: Anxiety) cholecalciferol (vitamin D3) 50 mcg (2,000 unit) tablet 50 mcg PO DAILY lisinopril 40 mg tablet 40 mg PO DAILY apixaban 5 mg tablet 5 mg PO BID clonazepam 1 mg tablet 1 mg PO BID PRN (Reason: Anxiety) rosuvastatin 40 mg tablet 40 mg PO DAILY metoprolol succinate 200 mg tablet extended release 24 hr 200 mg PO DAILY levothyroxine 100 mcg tablet 100 mcg PO DAILY albuterol sulfate 2.5 mg /3 mL (0.083 %) solution for nebulization 3 mg inhalation QID PRN (Reason: Shortness Of Breath Or Wheezing) bisacodyl [Dulcolax (bisacodyl)] 5 mg tablet,delayed release (DR/EC) 10 mg PO BEDTIME 2 Days Qty: 4 0RF hydrochlorothiazide 12.5 mg tablet 12.5 mg PO DAILY metformin 500 mg tablet 500 mg PO BID Incruse Ellipta 62.5 mcg/actuation blister with device 1 inh inhalation DAILY meclizine 25 mg tablet 25 mg PO DAILY Wegovy 2.4 mg/0.75 mL pen injector subcut Creon 36,000-114,000- 180,000 unit capsule,delayed release(DR/EC) 2 cap PO QID Qty: 720 1RF L.acidoph,saliva-B.bif-S.therm [Acidophilus Probiotic Blend] 175 mg capsule 1 cap PO DAILY Qty: 30 6RF pantoprazole 40 mg tablet,delayed release (DR/EC) 40 mg PO DAILY Qty: 30 6RF sennosides [Senna Laxative] 8.6 mg tablet 17.2 mg PO BEDTIME Qty: 60 6RF simethicone 180 mg capsule 180 mg PO QID 30 Days Qty: 120 6RF Rx Instructions: after meals Referrals: Gemini Chavez MD [Primary Care Provider] - Interventions: ED Discharge Assessment Last Done: 07/22/24 20:50 Discharge Date/Time: 07/22/24 20:58 Print Language: Citizen Of [place]
[2024-07-22 16:09] LABS: Troponin-I High Sensitivity 3.8 ng/L (<3.5-35.0)
[2024-07-22] MEDS: Nitroglycerin 2 % Oint 1 GM Packet 0.5 INCH TRANSDERMA (16:33)
--- OUTSIDE RECORDS SUMMARY | 2024-07-22 16:44 | XMS_ITS | Encounter Summary ---
Author Organization [employer] Address [address] [facility] [address] [place] [address] Care Team Providers Care Tour Actor Name Role Phone Gemini Chavez MD Primary Care Provide r Reason for Visit * Reason Comments Med Refill Encounter Details Date Type Department Care Team ([facility] st Contact Info) Description 02/12/2024 Refill [facility] [address] [place], [place] [phone] Gemini Chavez MD [address] [place], [place] [phone] Prediabetes Social History Tobacco Use Types Packs/Day [...] as of this encounter Plan of Treatment Not on file documented as of this encounter Visit Diagnoses Diagnosis Prediabetes Other abnormal glucose documented in this encounter Additional Health Concerns Assessment Noted Time PHQ-9 Depression Total Score: 0 09/03/19 9:55 AM EDT documented as of this encounter Care Teams Tour Actor Relationship Specialty Start Date End Date Gemini Chavez MD [address] [place] [id number] PCP - General Family Medicine 01/21/18 [facility] 03/28/24 documented as of this encounter
[2024-07-22 16:45] LABS: B Type Natriuretic Peptide 181 pg/mL (<100)
--- OUTSIDE RECORDS SUMMARY | 2024-07-22 16:45 | XMS_ITS | Encounter Summary ---
Author Organization [employer] Address [address] [facility] [address] [place] [address] Care Team Providers Care [employer] Crewmember Name Role Phone Gemini Chavez MD Primary Care Provide r Encounter Details Date Type Department Care Team (Late st Contact Info) Description 02/19/2023 Abstract [facility] [address] [place], [place] [phone] Gemini Chavez MD [address] [place], [place] [phone] Social History Tobacco Use Types Packs/Day Years [...] documented as of this encounter Care Teams [employer] Crewmember Relationship Specialty Start Date End Date eGmini Chavez MD [address] [place] [address] PCP - General Family Medicine 01/21/18 [employer] 03/28/24 documented as of this encounter
--- OUTSIDE RECORDS SUMMARY | 2024-07-22 16:45 | XMS_ITS | Data Portability ---
Author Organization [employer] [place] in [employer] Address [address] [place] [address] Care Team Providers Care Client Development Director Name Role Phone TALIB MARTINEZZEDWIN RONALDO Primary Care Provider [phone] HIM [facility] OTHER [facility] OTHER [phone] Assessment Encounter Date Assessment Date Assessment LastModified [...] assessment and plan as documented by the jackhammer splitter operator. I provided real time medical direction for this encounter and was immediately available to provide additional phone based assistance as needed. History as noted by jackhammer splitter operator. Pt with history of afib on apixaban, [...] be transported via 911 ambulance to the [facility] and I give a pt expect to the ED epic radiant analyst as well. [email or web address] Not available 03/20/2024 18:19:28 04/21/2024 04/21/2024 I provided real -time medical direction via phone for this encounter and was available for additional phone-based assistance as needed. I have reviewed and agree with the Assessment and Plan as documented by the Child And Family Counselor. Patient given the opportunity to ask questions. [...] pressure. No change in functional status. Per jackhammer splitter operator on the scene, vital signs are stable [...] Assessment and Plan as documented by the Child And Family Counselor. We discussed the diagnostic uncertainty of home [...] to call 911- verbalized understanding of instruction [email or web address] Not available 04/27/2024 20:25:46 Plan of Treatment Reminders Order Date Submit Date Provider Last Modified By Organization Details Last Modified Time Details Appointments None recorded. Lab rapid SARS CoV 2 Ag, QL IA, respiratory specimen 2023 024 [email or web address] 0 [facility], [address] [place] [address], [phone], 4 20:24:15 rapid flu (A+B) 2023 024 [email or web address] 0 [facility], [address] [place] [address], [address], 4 20:24:15 BMP, serum or plasma 2023 024 [email or web address] 0 [facility], [address] [place] [address], [address], 4 20:24:15 rapid flu (A+B) 2023 024 [email or web address] [facility], [address] [place] [address], [address], 4 10:38:31 rapid SARS CoV 2 Ag, QL IA, respiratory specimen 2023 024 [email or web address] Main - [facility], [address] [place] [address], [address], 4 10:38:31 Referral None recorded. Procedures None recorded. Surgeries None recorded. Imaging electrocard iogram 2023 024 [email or web address] 0 Main - [facility], [address] [place] [address], [address], 4 20:24:15 electrocard iogram 2023 024 [email or web address] Main - [facility], [address] [place] [address], [address], 4 18:36:07 electrocard iogram 2023 024 [email or web address] Main - [facility], [address] [place] [address], [address], 4 14:50:34 Medication Orders fluticasone propionate 50 mcg/actuati on nasal spray,suspe nsion 2023 024 [facility], [address] [place], [address], 4 12:56:56 Saline Nasal 0.65 % spray aerosol 2023 024 [facility], [address] [place], [address], 4 12:56:56 amoxicillin 500 mg capsule 2023 024 [facility], [address] [place], [address], 4 12:56:55 sodium chloride 0.9 % intravenous solution 2023 024 [email or web address] [facility], [address] [place], [address], 4 20:24:15 prednisone 20 mg tablet 2023 024 WERNER [facility], [address] [place], [address], 4 10:38:33 prednisone 20 mg tablet 2023 024 [email or web address] [facility], [address] [place], [address], 4 10:38:31 Patient TargetsNo targets recorded. Patient Instructions Encounter Date Encounter Id Patient Instructions Last Modified By Organization Details Last Modified Time 03/31/2024 [id number] orthostatic vitals* [email or web address] Not available 03/31/2024 18:21:41 Reason for Referral None Reported. Results Created Date Observation Date Name Description Value Unit Range Abnormal Flag Note LastModifiedBy Organization Detail LastModifiedTime 04/21/20 24 04/21/2024 rapid SARS CoV 2 Ag, QL IA, respi rator y speci men rapid SARS CoV 2 Ag, QL IA, respiratory specimen negati ve Not Available Main - [facility] [address] [place] [address], [address], 04/21/2024 10:37:26 04/21/20 24 04/21/2024 rapid flu (A+B) Flu negati ve Not Available Main - [facility] [address] [place] [address], [address], 04/21/2024 10:37:25 04/27/20 24 04/27/2024 rapid flu (A+B) Flu negati ve Not Available [facility] - [facility] [address] [place] [address], [address], 04/27/2024 12:57:09 04/27/20 24 04/27/2024 rapid SARS CoV 2 Ag, QL IA, respi rator y speci men rapid SARS CoV 2 Ag, QL IA, respiratory specimen negati ve Not Available Main - [facility] [address] [place] [address], [address], 04/27/2024 12:57:08 03/20/20 24 03/20/2024 elect rocar diogr am No observ ation [facility] [address] [place] [address], [address], 03/20/2024 14:50:32 03/31/20 24 03/31/2024 elect rocar diogr am No observ ation record ed. [facility] [address] [place] [address], [address], 03/31/2024 18:36:06 04/27/20 24 04/27/2024 elect rocar diogr am No observ ation record ed. [email or web address] [facility] [address] [place] [address], [address], 04/27/2024 20:22:51 Result Notes None recorded. Procedures Surgical History None recorded. Imaging Results Imaging Date Name Status LastModified by Organization Details LastModified Time 03/20/2024 electrocardiogram completed [address], [address], 03/20/2024 14:50:32 03/31/2024 [facility] [address] [place] [address], [address], 03/31/2024 18:36:06 04/27/2024 electrocardiogram completed [email or web address] [facility] [address] [place] [address], [address], 04/27/2024 20:22:51 Procedure Notes None recorded. Medical [...] /min 162.56 cm 96 % 96 % 381079. 16 g 16 /min 121 mm[Hg] 87 mm[Hg] Not Available [employer] 4 21:44:22 Date Recorded Heart rate Respiratory rate Body temperature Oxygen saturation Oxygen saturation in Arterial blood by Pulse oximetry Systolic blood pressure Diastolic blood pressure Systolic blood pressure Diastolic blood pressure Provider Name and Address Organization Details Last Updated DateTime 4 105 /min 16 /min 98.7 [degF] 95 % 95 % 114 mm[Hg] 81 mm[Hg] 85 mm[Hg] 51 mm[Hg] Not Available [employer] 4 14:41:24 Date Recorded Respiratory rate Heart rate Body weight Body temperature Oxygen saturation Oxygen saturation in Arterial blood by Pulse oximetry Heart rate Respiratory rate Systolic blood pressure Diastolic blood pressure Systolic blood pressure Diastolic blood pressure Provider Name and Address Organization Details Last Updated DateTime 4 16 /min 74 /min 74971.4 4 g 98.3 [degF] 98 % 98 % 84 /min 20 /min 114 mm[Hg] 84 mm[Hg] 120 mm[Hg] 86 mm[Hg] Not Available [employer] 4 18:31:50 Date Recorded Oxygen saturation Oxygen [...] Updated DateTime 04/27/2024 162.56 cm 33.5 kg/m2 35188.51 g Davina Garner MD [address] [place] [address],[address], [place], [address], [facility] [employer] 04/27/2024 20:03:55 Social History None recorded. Functional Status None recorded. Mental Status None recorded. Family History Nothing Reported. Medical History No medical history recorded. Past Encounters Encounter ID Performer Location Encounter Start Date Encounter Closed Date Diagnosis/Indication Diagnosis SNOMED-CT Code Diagnosis ICD10 Code Diagnosis Note [id number] Allison Newman MD [address] [phone] 04/11/2022 18:32:13 04/15/2022 15:46:34 Cough 09636377 R05.9 [id number] Davina Garner MD [address] [address] 01/07/2023 14:14:00 01/07/2023 22:56:53 Essential hypertension 33263998 I10 Patient exam is benign. Patient reassured/ his blood pressure is normal when taken with the medic cough. The medic measured the patient's blood pressure with his 5-year-old home machine and got 135/112 thus it is the patient's machine that is giving erroneous readingsNo te sent to [facility] to reach out to the hospice care consultant to assist the patient in obtaining a new home blood pressure monitor. Advised to continue all his regular medication s and follow-up with his PCP as needed [id number] Davina [facility] [address] [place] [phone] 01/08/2023 15:21:28 01/08/2023 23:59:09 Viral upper respiratory tract infection 697371915 J06.9 And viral pharyngiti s-advised to gargle [...] pcp. Sandra Bloom MD Main - [facility] [address] [place] [phone] 06/23/2023 18:11:30 06/24/2023 10:34:59 Dizziness 203271952 R42 [id number] Marlyn Casas MD Main - [facility] [address] [place] [phone] 08/05/2023 10:57:00 08/05/2023 16:00:41 Asthma 162545046 J45.909 Exacerbati on of moderate persistent asthma 711169628 J45.41 [id number] Eric Israel MD Main - [facility] [address] [place] [phone] 08/13/2023 12:51:38 08/13/2023 20:11:05 Acute exacerbation of chronic obstructive pulmonary disease 803661862 J44.1 The patient has a flare-up of his COPD. He will continue his current treatments . [id number] Eric Israel MD Main - [facility] [address] [place] [phone] 11/14/2023 12:02:23 11/14/2023 21:31:15 Vertigo 079976332 R42 This 67-year-ol d male with a past history of vertigo developed mild vertigo today. He has taken Meclizine in the past with good relief. I ordered Meclizine 50 mg now. He will follow-up with his PCP if the vertigo persists. The patient agreed with this plan. [id number] Thomas Lyon MD Main - [facility] [address] [place] [phone] 11/27/2023 21:44:10 11/28/2023 10:18:17 Headache 33748369 R51.9 [id number] Jeancarlos Gonsales MD Main - [facility] [address] [place] [phone] 03/20/2024 14:41:13 03/22/2024 13:41:42 Orthostatic hypotension 96711101 I95.1 Atrial fibrillation 4943 6004 I48.91 [id number] RENU MARIE MD Main - [facility] [address] [place] [phone] 03/31/2024 18:19:08 04/01/2024 11:10:35 Dizziness 070570550 R42 Evaluation in the field was performed by my jackhammer splitter operator colleague, as noted above, I provided real-time [...] , palpitatio ns or any other concerns. [id number] Marlyn Casas MD Main - [facility] [address] [place] [id number] 04/21/2024 10:14:37 04/22/2024 00:16:20 Asthma-chronic obstructive pulmonary disease overlap syndrome [id number] 9343321 J44.9 Viral uppe r respiratory tract infection 539768691 J06.9 [id number] Davina Garner MD Main - [facility] [address] [place] [phone] 04/27/2024 11:24:18 04/27/2024 22:19:18 Headache 72723758 R51.9 w/ dizziness- possibly sinusitisS lightly less [...] Young Member ID Guarantor Name 11/27/[address] [facility] Astley Clarke - DOS ON OR AFTER 2022 - DUAL ELIGIBLE - LONG TERM OPTIONS AND ONE CARE (MEDICARE REPLACEMENT/AD VANTAGE - HMO) Min Arauz [id number] Min Arauz 03/20/[address] [facility] Astley Clarke - DOS ON OR AFTER 2022 - DUAL ELIGIBLE - LONG TERM OPTIONS AND ONE CARE (MEDICARE REPLACEMENT/AD VANTAGE - HMO) Min Arauz [id number] Min Arauz 03/31/[address] [facility] Astley Clarke - DOS ON OR AFTER 2022 - DUAL ELIGIBLE - LONG TERM OPTIONS AND ONE CARE (MEDICARE REPLACEMENT/AD VANTAGE - HMO) Min Arauz [id number] Min Arauz 04/21/[address] [facility] Astley Clarke - DOS ON OR AFTER 2022 - DUAL ELIGIBLE - LONG TERM OPTIONS AND ONE CARE (MEDICARE REPLACEMENT/AD VANTAGE - HMO) Min Arauz [id number] Min Arauz 04/27/2024 1 [facility] - DOS ON OR AFTER 2022 - DUAL ELIGIBLE - LONG TERM OPTIONS AND ONE CARE (MEDICARE REPLACEMENT/AD VANTAGE - HMO) Min Arauz [id number] Min Arauz Notes Date Note Type Note Provider Name and Address Organization Details Recorded Time 11/27/2023 text/html [facility] Nurse Triage Notes (Padmini Payne): Reason For Request: high BP Chief Complaints: Hypertension PMH: COPD/Asthma, Hypertension, CHF, Heart Disease, Diabetes Allergies: No Known Comments: Referral taken via Mission Systems [employer] [id number]. Member with elevated BP, 153/112 and 156/120, took his HS medications. Member with headache and dizziness, denies chest pain, mild sob, but is not new, denies any arm or jaw pain, no numbness, tingling or weakness anywhere. Member would like to be evaluated. ...................... ...................... ...................... ...................... ...................... ...................... ......... Child And Family Counselor Note From Pradeep Rainey: [employer] visit for [...] afib, no other significant findings. Consulted with [facility] Dr. Lyon who advised pt should take another 500mg tylenol. Reviewed red flags for ED. Patient education provided. ...................... ...................... ...................... ...................... ...................... ...................... ......... Disposition: Fulfilled Thomas Lyon MD [address] [place] [address],[address], [place], [address], [employer] 11/27/2023 23:06:36 03/20/2024 text/html This was a super vised home visit with jackhammer splitter operator Rivas Thapa. [facility] Nurse Triage Notes (Dov Lainez): Reason For Request: Patient was dizzy, fell, and hurt himself, possibly bp problems - Chief Complaints: Dizziness PMH: COPD/Asthma, Hypertension, Congestive Heart Failure, Coronary Artery Disease, Gastroesophageal Reflux Disease (GERD) Comments: Glazier Supervisor verified the Pt.'s name//address and phone number. [...] Concerns expressed - PT declines ER treatment. Child And Family Counselor Organization Information for Rivas Thapa Legal Name: [facility] Address: [address] [place] [address], [place] [address], Ambulatory Services Representative: Byron Mauro MD CLIA No.: [id number] Child And Family Counselor POC Test Results from Rivas Thapa EKG (14:32:21) EKG test performed. Attachments uploaded as part of this test result can be found under Documents section. ...................... ...................... ...................... ...................... ...................... ...................... ......... Child And Family Counselor Note From Rivas Thapa: This 68-year-old male [...] No lower extremity edema. EKG uploaded, a-fib. [facility] contacted and agrees that an emergency department evaluation is necessary. Patient agreeable to ambulance transport to [facility] emergency department. 911 initiated and verbal SBAR given to [facility] ALS crew. ...................... ...................... ...................... ...................... ...................... ...................... ......... [facility] Consulted: Jeancarlos Gonsales ...................... ...................... ...................... ...................... ...................... ...................... ......... Disposition: Fulfilled Jeancarlos Gonsales MD [address] [place] [address],[address], [place], [address], [employer] 03/20/2024 18:19:45 03/31/2024 text/html [facility] Nurse Triage [...] ...................... ...................... ...................... ...................... ...................... ...................... ......... Child And Family Counselor Note From Chuy Finn: Pt had no [...] and rhythm/A-fib. Pt stable. Pt taking eliquis. [facility] Dylon contacted and advised pt of signs indicating the ER, Drink plenty of fluids, Monitor symptoms. Allergies Discussed. ...................... ...................... ...................... ...................... ...................... ...................... ......... [facility] Consulted: Renu Marie ...................... ...................... ...................... ...................... ...................... ...................... ......... Disposition: Syed MARIE MD [address] [facility],[address], [place], [address], [employer] 03/31/2024 23:40:49 04/27/2024 text/html [facility] Nurse Triage Notes (Padmini Payne - [...] morning. Patient would like to be re-evaluated. Child And Family Counselor Organization Information for Cheikh Mejia Legal Name: [employer] Address: [address] [place] [address], Ambulatory Services Representative: Parish Ruiz MD CLIA No.: [id number] Child And Family Counselor POC Test Results from Cheikh Mejia EKG [...] ...................... ...................... ...................... ...................... ...................... ...................... ......... Child And Family Counselor Note From Cheikh Mejia: Dispatched for the scheduled visit for the male patient with a headache. pt. was found alert and oriented x3 sitting in bed c/o of a severe headache from yesterday with dizziness upon sitting up. pt. noted he had been seen by replaced by [facility] on the but could not remember his [...] in all extremities -dcaptbtls -stroke scale findings. [facility] contacted and ordered COVID and FLU swab, BMP and orthostatic vital signs while sitting and standing in addition. 21 gauge butterfly LAC performed for BMP. all results forwarded and [facility] then ordered a 12 lead ekg and IV with 750 ml Normal Saline. IV established 18 gauge left forearm-normal saline IV drip 750 ml. all results forwarded to [facility] with changed after normal saline. [facility] noted she would send amoxicillin and Fluticasone and saline nasal spray to the patients pharmacy for possible nasal infection. red flag warnings discussed and noted to call 911 if headache or dizziness worsened any slurred speech, weakness, facial droop or syncope occurred. all times are approx.report completed by rob mejia. [facility] Lab Orders: rapid SARS CoV 2 Ag, QL IA, respiratory specimen: Performed ...................... ...................... ...................... ...................... ...................... ...................... ......... [facility] Consulted: Davina Garner ...................... ...................... ...................... ...................... ...................... ...................... ......... Disposition: FulfilledSEGMD: letty seen by [facility] on 04/21 and diagnosed with COPD [...] Kidney Disease, Obesity. Davina Garner MD [address] [facility],[address], [place], [address], [facility] [employer] [facility] 04/27/2024 20:33:33
--- OUTSIDE RECORDS SUMMARY | 2024-07-22 16:45 | XMS_ITS | Encounter Summary ---
Author Organization [employer] Address [address] [facility] [address] [place] [address] Care Team Providers Care Custodial Foreman Name Role Phone Gemini Chavez MD Primary Care Provide r Reason for Visit * Reason Comments Hypertension Headache Encounter Details Date Type Department Care Team ([facility] st Contact Info) Description 07/05/2024 9:00 AM EST Office Visit [facility] [address] [place], [place] [phone] Alexandra Knox MD [address] [place], [place] [phone] Primary hypertension (Primary Dx); Elevated blood pressure [...] documented in this encounter Plan of Treatment Not on file documented as of this encounter Visit Diagnoses Diagnosis Primary hypertension- Primary Unspecified essential hypertension Elevated blood pressure reading Elevated blood pressure reading without diagnosis of hypertension documented in this encounter Additional Health Concerns Assessment Noted Time PHQ-9 Depression Total Score: 0 09/03/19 9:55 AM EDT documented as of this encounter Care Teams Custodial Foreman Relationship Specialty Start Date End Date Gemini Chavez MD [address] [place] [address] PCP - General Family Medicine 01/21/18 [employer] 03/28/24 documented as of this encounter
--- OUTSIDE RECORDS SUMMARY | 2024-07-22 16:45 | XMS_ITS ---
Author Organization [facility] Address [address] [place] [address] Care Team Providers Care Coffee Brewer Name Role Phone Gemini Fisher M.D. Primary Care Provider Larry Angeles Jr Unavailable [phone] Katherine FORTE, Cipriano Unavailable Unavailable Allergies No [...] EACH DAY Inhalation for 30 Active Creon 50308-745472 UNIT TOME 2 C PSULAS POR V [...] Problem Status W/U Status Risk Notes Problem 99954731 Dysphagia, unspecified type (R13.10) Active confirmed Problem 010657337 Abnormal barium swallow (R93.3) Active confirmed Problem 085745627 Gastroesophageal reflux disease, unspecified whether esophagitis present (K21.9) Active confirmed Problem 000106100 Presbyesophagus (K22.89) Active confirmed Vital Signs Temperature 97.8 degrees Fahrenheit 03/13/20 23 Blood pressure systolic 000 mm Hg 03/13/20 23 Blood pressure diastolic 00 mm Hg 023 Height 5 ft 5 in in 03/13/2023 Weight 221 lbs 03/13/2023 BMI 36.77 kg/m2 03/13/2023 Encounters Encounter Location Date Provider Diagnosis [facility] [address] [place] [address] 03/13/2023 Larry Carnes Jr Dysphagia, unspecified type [...] * BEN DAILYIODOB: 1955 (67 yo M)Acc No.[id number]:03/13/2023 Progress Notes Patient:?KOBE DAILY Provider:?Larry Carnes MD :1955???Age:67 Y???Sex:Male Jose Manuel e:03/13/2023 Address:[address] [place], [place] [phone] Pcp:Gemini Fisher Subjective: * Chief Complaints: * [...] TODOS LOS D Oral , Taking Creon [id number] UNIT Capsule Delayed Release Particles TOME 2 [...] Carnes MD Date:?05/13/2022 Generated for Dutch rosales/Aylin/Poweritting on:?07/22/2024 10:41 AM EDT History and Physical Notes * HPI (History [...]
--- OUTSIDE RECORDS SUMMARY | 2024-07-22 16:45 | XMS_ITS | Encounter Summary ---
Author Organization [employer] Address [address] [facility] [address]t [place] [address] Care Team Providers Care Christmas Tree Contractor Name Role Phone Gemini Chavez MD Primary Care Provide r Encounter Details Date Type Department Care Team (Late st Contact Info) Description 07/10/2023 Orders Only [facility] [address] [place], [place] [phone] Gemini Chavez MD [address] [place], [place] [phone] Mixed stress and urge urinary incontinence (Primary [...] the past 12 months, has t he [employer], oil or water [employer] threatened to shut off services in your [...] documented as of this encounter Care Teams Christmas Tree Contractor Relationship Specialty Start Date End Date Gemini Chavez MD [address] [place] [address] PCP - General Family Medicine 01/21/18 [employer] 03/28/24 documented as of this encounter
--- OUTSIDE RECORDS SUMMARY | 2024-07-22 16:45 | XMS_ITS | Encounter Summary ---
Author Organization [employer] Address [address] [facility] [address] [place] [address] Care Team Providers Care Animal Bounty Hunter Name Role Phone Gemini Chavez MD Primary Care Provide r Reason for Visit * Reason Comments Med Refill Encounter Details Date Type Department Care Team ([facility] st Contact Info) Description 05/08/2024 Refill [facility] [address] [place], [place] [phone] Gemini Chavez MD [address] [place], [place] [phone] Class 1 obesity due to excess calories [...] documented as of this encounter Care Teams Animal Bounty Hunter Relationship Specialty Start Date End Date Gemini Chavez MD [address] [place] [address] PCP - General Family Medicine 01/21/18 [employer] 03/28/24 documented as of this encounter
--- OUTSIDE RECORDS SUMMARY | 2024-07-22 16:45 | XMS_ITS | Encounter Summary ---
Author Organization [employer] Address 75 [facility] 7t [place] [address] Care Team Providers Care Relief Driller Name Role Phone Gemini Chavez MD Primary Care Provide r Reason for Visit * Reason Onset Date Comments Nurse Triage 03/26/2023 Encounter Details Date Type Department Care Team ([facility] st Contact Info) Description 03/26/2023 Telephone [facility] MEDICINE [address] [place], [place] [phone] Gemini Chavez MD [address] [place] [address] Nurse Triage Social History Tobacco Use Types [...] t he electric, gas, oil or water dELiAs threatened to shut off services in your [...] 03/26/2023 11:47 AM EST Triage call with [employer] Wiring Technician ID [id number] Pt reports ingrown toenail great toe on left foot for 3 days now. Pt reports it is painful and causes some limping when ambulating. Pt denies redness, drainage. Pt requests a referral to investigative shopper which was very helpful last time this happened. Pt is advised will send this request to PCP and nursing team for follow up and Pt agreed. Pt declined to come to [facility] only wants investigative shopper to cut this toenail. Protocol Used: Information [...] accepted this outcome Please contact pt at [phone] (vp clinical needed) documented in this encounter Plan of Treatment Not on file documented as of this encounter Visit Diagnoses Not on filedocumented in this encounter Additional Health Concerns Assessment Noted Time PHQ-9 Depression Total Score: 6 05/16/19 23 1:42 PM EST documented as of this encounter Care Teams Relief Driller Relationship Specialty Start Date End Date Gemini Chavez MD [address] [place] [address] PCP - General Family Medicine 01/21/18 [employer] 03/28/24 documented as of this encounter
--- OUTSIDE RECORDS SUMMARY | 2024-07-22 16:45 | XMS_ITS | Encounter Summary ---
Author Organization [employer] Address 75 [facility] 7t [place] [address] Care Team Providers Care Jalousie Installer Name Role Phone Gemini Chavez MD Primary Care Provide r Reason for Visit * Reason Comments Med Refill Encounter Details Date Type Department Care Team ([facility] st Contact Info) Description 05/14/2024 Refill [facility] MEDICINE [address] [place], [place] [phone] Gemini Chavez MD [address] [place], [place] [phone] Class 1 obesity due to excess calories [...] documented as of this encounter Care Teams Jalousie Installer Relationship Specialty Start Date End Date Gemini Chavez MD [address] [place] [id number] PCP - General Family Medicine 01/21/18 [employer] 03/28/24 documented as of this encounter
--- OUTSIDE RECORDS SUMMARY | 2024-07-22 16:45 | XMS_ITS | Encounter Summary ---
Author Organization [employer] Address 75 [facility] 7t [place] [address] Care Team Providers Care Inventory Taker Name Role Phone Gemini Chavez MD Primary Care Provide r Encounter Details Date Type Department Care Team ([facility] st Contact Info) Description 01/22/2023 Orders Only [facility] MEDICINE [address] [place], [place] [phone] Gemini Chavez MD [address] [place], [place] [phone] COPD with asthma (CMS/HCC) Social History Tobacco Use Types Packs/Day [...] encounter Visit Diagnoses Diagnosis COPD with asthma (CMS/HCC) documented in this encounter Additional Health Concerns Assessment Noted Time PHQ-9 Depression Total Score: 6 05/16/19 23 1:42 PM EST documented as of this encounter Care Teams Inventory Taker Relationship Specialty Start Date End Date Gemini Chavez MD [address] [place], [place] [phone] PCP - General Family Medicine 01/21/18 [employer] 03/28/24 documented as of this encounter
--- OUTSIDE RECORDS SUMMARY | 2024-07-22 16:45 | XMS_ITS | Encounter Summary ---
Author Organization [employer] Address 75 [facility] 7t [place] [address] Care Team Providers Care Printing Worker Supervisor Name Role Phone Gemini Chavez MD Primary Care Provide r Reason for Visit * Reason Comments Med Change Request Encounter Details Date Type Department Care Team ([facility] st Contact Info) Description 02/04/2023 Refill [facility]EDS [address] [place], [place] [phone] Marsha Menjivar MD [address] [place] [address] Primary hypertension Social History Tobacco Use Types [...] - 03/03/2023 11:46 AM EDT Sent to [facility] * Telephone Encounter - Jacqueline [...] documented as of this encounter Care Teams Printing Worker Supervisor Relationship Specialty Start Date End Date Gemini Chavez MD [address] [place] [address] PCP - General Family Medicine 01/21/18 [employer] 03/28/24 documented as of this encounter
--- OUTSIDE RECORDS SUMMARY | 2024-07-22 16:45 | XMS_ITS | Encounter Summary ---
Author Organization [employer] Address 75 [facility] 7t [place] [address] Care Team Providers Care Elementary Math Tutor Name Role Phone Gemini Chavez MD Primary Care Provide r Reason for Visit * Reason Onset Date Comments Appointment Request 08/21/2022 Encounter Details Date Type Department Care Team ([facility] st Contact Info) Description 08/21/2022 Telephone [facility] MEDICINE [address] [place], [place] [phone] Gemini Chavez MD [address] [place] [address] Appointment Request Social History Tobacco Use Types [...] an family emergency. Please contact pt at [phone] documented in this encounter Plan of Treatment Not on file documented as of this encounter Visit Diagnoses Not on filedocumented in this encounter Additional Health Concerns Assessment Noted Time PHQ-9 Depression Total Score: 6 05/16/19 23 1:42 PM EST documented as of this encounter Care Teams Elementary Math Tutor Relationship Specialty Start Date End Date Gemini Chavez MD [address] [place] [address] PCP - General Family Medicine 01/21/18 [employer] 03/28/24 documented as of this encounter
--- OUTSIDE RECORDS SUMMARY | 2024-07-22 16:45 | XMS_ITS | Encounter Summary ---
Author Organization [employer] Address 75 [facility] 7t [place] [address] Care Team Providers Care Archives Director Name Role Phone Gemini Chavez MD Primary Care Provide r Encounter Details Date Type Department Care Team (Late st Contact Info) Description 06/18/2024 Orders Only [facility] MEDICINE [address] [place], [place] [phone] Gemini Chavez MD [address] [place], [place] [phone] Social History Tobacco Use Types Packs/Day Years [...] documented as of this encounter Care Teams Archives Director Relationship Specialty Start Date End Date Gemini Chavez MD [address] [place] [id number] PCP - General Family Medicine 01/21/18 [employer] 03/28/24 documented as of this encounter
--- OUTSIDE RECORDS SUMMARY | 2024-07-22 16:45 | XMS_ITS | Encounter Summary ---
Author Organization [employer] Address 75 [facility] 7t [place] [address] Care Team Providers Care Eeler Name Role Phone Gemini Chavez MD Primary Care Provide r Reason for Visit * Reason Comments Med Refill Encounter Details Date Type Department Care Team ([facility] st Contact Info) Description 06/21/2022 Refill [facility] MEDICINE [address] [place], [place] [phone] Marsha Menjivar MD [address] [place], [place] [phone] Chronic systolic heart failure (CMS/HCC) Social History [...] documented as of this encounter Care Teams Eeler Relationship Specialty Start Date End Date Gemini Chavez MD [address] [place] [address] PCP - General Family Medicine 01/21/18 [employer] 03/28/24 documented as of this encounter
--- OUTSIDE RECORDS SUMMARY | 2024-07-22 16:45 | XMS_ITS | Encounter Summary ---
Author Organization [employer] Address 75 [facility] [address]t [place] [address] Care Team Providers Care Ball Thread Machine Tender Name Role Phone Gemini Chavez MD Primary Care Provide r Reason for Visit * Reason Comments Med Refill Encounter Details Date Type Department Care Team ([facility] st Contact Info) Description 02/12/2024 Refill [facility] MEDICINE [address] [place], [place] [phone] Gemini Chavez MD [address] [place], [place] [phone] Prediabetes Social History Tobacco Use Types Packs/Day [...] documented as of this encounter Care Teams Ball Thread Machine Tender Relationship Specialty Start Date End Date Gemini Chavez MD [address] [place] [address] PCP - General Family Medicine 01/21/18 [employer] 03/28/24 documented as of this encounter
--- OUTSIDE RECORDS SUMMARY | 2024-07-22 16:45 | XMS_ITS | Clinical Summary ---
Author Organization [employer] [facility] Address [address] [place] [address] 7[address] [place] [address] Care Team Providers Care Child Nurse Name Role Phone Gemini Chavez MD Primary [...] ANAPHYLAXIS AND CALL [phone] Active Creon [id number] units capsule delayed-release particles capsule Take 2 capsules by mouth 4 times daily. ADMINISTER WITH MEALS AND/OR SNACKS 2022 Active Fluticasone-Salmetero l 250-50 MCG/ACT aerosol powder Inhale 1 puff 2 times daily. 2023 Active Umeclidinium [place] (Incruse Ellipta) 62.5 MCG/ACT aerosol powderIndications:Chr onic [...] TIMES DAILY 300 g 2 2023 Active albuterol (2.5 MG/3ML) 0.083% nebulizer solution USE 1 VIAL VIA NEBULIZER KINJAL VECES AL СЕРГЕЙ 150 mL 3 2024 Active lisinopril 40 MG tabletIndications:Zaina areli hypertension TAKE 1 TABLET BY MOUTH EVERY MORNING 90 tablet 2024 Active rosuvastatin (Crestor) 40 MG tabletIndications:Pur e hypercholesterolemia TOME 1 TABLETA POR VIA ORAL TODOS [place] 90 tablet 1 2024 Active amLODIPine (Norvasc) 2.5 MG tabletIndications:Zaina singleton hypertension Take 2 tablets (5 mg) by mouth Once per day. 60 tablet 11 07/05 Active amLODIPine (Norvasc) 10 MG tablet Take 1 tablet (10 mg) by mouth Once per day. 30 tablet 11 07/15 Active Tirzepatide-Weight Management (Zepbound) 2.5 MG/0.5ML solution auto-injectorIndicati ons:Class 1 obesity due to excess calories with serious comorbidity and body mass index (BMI) of 33.0 to 33.9 in adult Inject 0.5 mL (2.5 mg) under the skin 1 (one) time per week. 2 mL 2024 Active rosuvastatin (Crestor) 40 MG tabletIndications:Pur e hypercholesterolemia TAKE 1 TABLET BY MOUTH EVERY DAY 90 tablet 1 07/02 Discontinued Tirzepatide-Weight Management (Zepbound) 2.5 MG/0.5ML solution auto-injectorIndicati ons:Class 2 severe obesity due to excess calories with serious comorbidity and body mass index (BMI) of 38.0 to 38.9 in adult ([facility]) Inject 0.5 mL (2.5 mg) under the skin 1 (one) time per week. 2 mL 07/22 Discontinued( Reorder (will not trigger notification to Pharmacy)) Hospital, Clinic, or Other Facility Administered Medication Ordered Dose Route Frequency Start Date End Date Status nitroglycerin (Nitrostat) SL tablet 0.4 mgIndications:Precord ial pain 0.4 mg SL Every 5 min PRN 07/22/2024 Active aspirin chewable tablet 325 mgIndications:Precord ial pain 325 mg PO Once 07/22/2024 07/22/2024 Ended Active Problems Problem Noted Date Diagnosed Date Precordial pain 07/22/2024 Assessment & Plan (07/22/2024 11:27 AM EDT): EKG done today shows his baseline A-fib no ST changes I ordered today in office aspirin 325 mg stat and nitroglycerin 0.4 mg under the tongue Patient will be sent to the emergency room via EMS Stage 3 chronic kidney disease 04/16/2024 Class 1 obesity due to exces s calories with serious comorbidity and body mass index (BMI) of 33.0 to 33.9 in adult 02/11/2024 Assessment & Plan (07/22/2024 11:28 AM EDT): Patient is no longer on Wegovy, I will prescribe today for patient Zepbound 2.5 mg weekly counseling about side effects done today patient also counseled about healthy diet Assessment & Plan (02/11/2024 2:03 PM EDT): [...] TSH and contact him back Patient declines ob/gyn doctor appointment Prediabetes 05/19/2023 Assessment & Plan (04/20/2024 [...] will like to be re-evalauted for more [employer] hours Preop examination 02/13/2023 Assessment & Plan [...] ideally next day of procedure--I called his power press tender-Dr Ely's # [phone] office and spoke w CLIFF rodriguez with [...] 11/28/2022 Venous insufficiency of lower extremity 11/29/19 Assessment & Plan (11/28/2022 10:38 AM EDT): [...] Encounters Date Type Department Care Team Description 07/22/2024 11:00 AM EDT Office Visit [facility] [address] [place] [phone] Gemini Chavez MD Precordial pain (Primary Dx); Class 1 obesity due to excess calories with serious comorbidity and body mass index (BMI) of 33.0 to 33.9 in adult 07/22/2024 Orders Only GENERIC EXTERNAL DATA DEPARTMENT Provider, Generic External Data 07/22/2024 Travel 07/15/2024 Refill [facility] [address] [address] Gemini Chavez MD 07/15/2024 Patient Outreach [address] [address] Gemini Chavez MD Pre-visit Planning ((Unable to reach for PVP screening, LVM)) 07/12/2024 11:00 AM EST Clinical Support [address] [address] Elyssa Barajas, GAYLE Dietary counseling; Exercise counseling; Primary hypertension 07/12/2024 Travel 07/05/2024 9:00 AM EST Office Visit [facility] [address] [address] Alexandra Knox MD Primary hypertension (Primary Dx); Elevated blood pressure reading 07/02/2024 Refill [facility] [address] [place] [address] Gemini Chavez MD Pure hypercholesterolemia 06/18/2024 Orders Only [facility] [address] [place] [address] Gemini Chavez MD 06/16/2024 Orders Only [facility] External Provider, [facility] 06/10/2024 Telephone [facility] [address] [place] [address] Gemini Chavez MD Prior Authorization 06/09/2024 Refill [facility] [address] [place] [address] Gemini Ochoa MD Primary hypertension 06/03/2024 Refill [facility] [address] [place] [address] Gemini Chavez MD 05/26/2024 Telephone [facility] [address] [place] [address] Gemini Chavez MD Prior Authorization ([facility] for Zepbound) 05/14/2024 Refill [facility] [address] [place] [address] Gemini Chavez MD Class 1 obesity due to excess calories with serious comorbidity and body mass index (BMI) of 33.0 to 33.9 in adult 05/11/2024 Orders Only [facility] External Provider, [facility] 05/11/2024 Telephone [facility] [address] [place] [address] Gemini Chavez MD medication denied 05/10/2024 Orders Only [facility] [address] [place] [address] Gemini Chavez MD Stage 3 chronic kidney disease, unspecified whether stage 3a or 3b CKD (CMS/HCC) (Primary Dx); Class 2 severe obesity due to excess calories with serious comorbidity and body mass index (BMI) of 38.0 to 38.9 in adult (CMS/HCC) 05/08/2024 Refill [facility] [address] [place] [address] Gemini Chavez MD Class 1 obesity due to excess calories with serious comorbidity and body mass index (BMI) of 33.0 to 33.9 in adult 05/04/2024 Orders Only GENERIC EXTERNAL DATA DEPARTMENT Provider, Generic External Data 05/03/2024 Orders Only GENERIC EXTERNAL DATA DEPARTMENT Provider, Generic External Data 04/30/2024 Telephone [facility] [address] [place] [address] Gemini Chavez MD FYI 04/27/2024 Telephone [facility] [address] [place], [place] [phone] Gemini Chavez MD Nurse Triage; Follow up InStead visit 04/27/24 04/27/[address] [phone] Gemini Chavez MD FYI from Last 3 Months Immunizations Name Administration [...] Bivalent 04/24/2022 Pfizer Covid-19 Vaccine 12+ 02/11/2024, Pneumococcal Conjugate PCV 20 11/04/2022 Pneumococcal Polysaccharide [...] Sign Reading Time Taken Comments Blood Pressure 139/94 07/22/2024 10:57 AM EDT Pulse 78 07/22/2024 10:57 AM EDT Temperature 36.2 ??C (97.1 ??F) 07/22/2024 10:57 AM E DT Respiratory Rate 18 07/22/2024 10:57 AM EDT Oxygen Saturation 99% 07/22/2024 10:57 AM EDT Inhaled Oxygen Concentration - - Weight 95.8 kg (211 lb 3.2 oz) 07/12/2024 11:48 AM EST Height 169.5 cm (5' 6.75 ) 07/12/2024 11:[address] Body Mass Index 33.33 07/12/2024 11:48 AM EST Plan of Treatment Health Maintenance Due Date Last Done Comments [...] Procedure Name Priority Date/Time Associated Diagnosis Comments HIGH SENSITIVITY TROPONIN I Routine 07/22/2024 3:38 PM EDT ECG 12-LEAD Routine 07/22/2024 11:21 AM EDT Precordial pain XR SHOULDER 2+ VIEWS LEFT Routine 06/16/2024 [...] Recently Relevant to Health Maintenance Results * High Sensitivity Troponin I (07/22/2024 3:38 PM EDT) Only the most recent of3 resultswithin the time period is included. TROPONIN I HIGH SENSITIVITY 3.8 <3.5 - 35.0 ng/L [facility] Comment:The Ham high sens itivity Troponin-I results should beused in conjunction with other diagnostic information suchas ECG, clinical observations and information, and patientsymptoms to aid in the diagnosis of [place]. 07/22/2024 3:38 PM EDT 07/22/2024 3:43 PM EDT us Generic External Data Provider LAB BLOOD ORDERAB LES Final Result [facility] [address] [place] [address] [phone] * ECG 12 lead (07/22/2024 11:21 AM EDT) Narrative Gemini Chavez MD - 07/22/2024 11:21 AM EDT Atrial fibrillation with normal ventricular response, rate [address] abnormalities us Gemini Chung MD ECG ORDERABLES Final Result * XR Shoulder 2+ Views Left (06/16/2024 12:45 PM EST) Anatomical Region Laterality Modality Upper Extremities, Shoulder Left Radi ographic Imaging 06/16/2024 12:4 5 PM EST Narrative 06/16/2024 1:02 PM EST ? [facility] ?[address] ?[place] [address] ?XRay Report ? Signed ? Patient: Min Rees ?MR#: ?? [id number] ? : 1955 ?Acct:[id number] ? Age/Sex: 68 / M ?ADM Date: 06/16/24 ? Loc: HO.ED ? Attending Dr: ? Ordering Physician: Sarah Beth Quinonez ?? Date of Service: 06/16/24 ?? Procedure(s): XR shoulder LT min 2V ?? Accession Number(s): [id number] ? cc: Gemini Chavez MD; Sarah Beth [...] DD/ 1245 ? TD/TT: 06/16/24 1250 ? Senior Storage Engineer: MSM ? Procedure Note Kimberlyter, Image - 06/16/2024 [place] [address] XRay Report Signed Patient: Min ReesMR#: [id number] : 6Acct:[id number] Age/Sex: 68 / MADM Date: 06/16/24 Loc: HO.ED Attending Dr: Ordering Physician: Sarah Beth Quinonez Date of Service: 06/16/24 Procedure(s): XR shoulder LT min 2V Accession Number(s): [id number] cc: Gemini Chavez MD; Sarah Beth Quinonez [...] by: Chacorta Noland MD 06/16/2024 12:59 PM [facility] [place] Dictated By: Chacorta Noland MD Signed By: <Electronically signed by Chacorta Noland MD in OV> 06/16/24 1259 DD/ 1245 TD/TT: 06/16/24 1250 Senior Storage Engineer: CJ [facility] External Provider IMG XR PROCEDURES Edited Result - Final * CT Head w/o Contrast (06/16/2024 9:18 AM EST) Anatomical Region Laterality Modality Head, Neck Computed Tomogra phy 06/16/2024 9:18 AM EST Narrative 06/16/2024 9:52 AM EST ? [facility] ?[address] ?[place] [address] ? CT Scan Report ? Signed ? Patient: Davonte Cano,Min ?MR#: ?? [id number] ? : 1955 ?Acct:[id number] ? Age/Sex: 68 / M ?ADM Date: 06/16/24 ? Loc: HO.ED ? Attending Dr: ? Ordering Physician: Ysabel Benton NP ?? Date of Service: 06/16/24 ?? Procedure(s): CT head/brain wo IV con ?? Accession Number(s): [id number] ? cc: Gemini Chavez MD; Ysabel Benton NP ? Report Number: ?? [id number]: Total DLP = ??793.00 mGy-cm ?? EXAMINATION: [...] DD/ 0918 ? TD/TT: 06/16/24 0944 ? Senior Storage Engineer: ? Procedure Note Tam, Image - 06/16/[address] [place] [address] [address] Scan Report Signed Patient: Min ReesMR#: [id number] : 6Acct:[id number] Age/Sex: 68 / MADM Date: 06/16/24 Loc: HO.ED Attending Dr: Ordering Physician: Ysabel Benton NP Date of Service: 06/16/24 Procedure(s): CT head/brain wo IV con Accession Number(s): [id number] cc: Gemini Chavez MD; Ysabel Benton NP Report Number: [id number]: Total DLP = 793.00 mGy-cm EXAMINATION: CT [...] Doherty MD in OV> 06/16/24 0949 DD/ TD/TT: 06/16/24 0944 Senior Storage Engineer: [facility] External Provider IMG CT PROCEDURES Edited Result - Final * SARS-CoV-2 RNA, Influenza A/B, and RSV RNA, Ql NAAT (06/16/2024 9:16 AM EST) Influenza A PCR NEGATIVE Negative [facility] Influenza B PCR NEGATIVE Negative [facility] Resp Syncy Virus RNA Qual PCR NEGATIVE Negative [facility] SARS COV2 PCR NEGATIVE Negative [facility] Comment:All test results mus t [...] use by authorized laboratories.Testing performed on the [employer] GeneXpert utilizingreal-time RT-PCR.All SARS CoV2 and positive influenza A/B results arereported to [facility]. 06/16/2024 9:16 AM EST 06/16/2024 9:21 AM EST us Generic External Data Provider LAB MICROBIOLOGY - GENERAL ORDERABLES Final Result [facility] [address] [place] [phone] * (ABNORMAL) CBC auto differential (06/16/2024 9:16 AM EST) White Blood Count 6.8 4.8 - 10.8 X10*3/uL [facility] Red Blood Count 3.61(L) 4.60 - 5.80 X10*6/uL [facility] Hemoglobin 11.5(L) 14.0 - 18.0 g/dl [facility] Hematocrit 33.3(L) 42.0 - 52.0 % [facility] Mean Corpuscular Volume 92.2 80.0 - 98.0 fL [facility] Mean Corpuscular Hemoglobin 31.9 27.0 - 33.0 pg [facility] Mean Corpuscular HGB Conc 34.5 31.0 - 36.0 g/dl [facility] Red Cell Distribution Width 12.0 11.0 - 16.0 % [facility] Platelet Count 173 160 - 400 X10*3/uL [facility] Mean Platelet Volume 10.1 9.4 - 12.4 fL [facility] Neutrophils Percent Auto 73.8(H) 45 - 73 % [facility] Imm Gran Pct Auto 0.3 0.0 - 0.4 % [facility] Lymphocytes Percent Auto 14.9(L) 20 - 40 % [facility] Monocytes Percent Auto 10.3 2 - 11 % [facility] Eosinophils Percent Auto 0.4 0 - 4 % [facility] Basophils Percent Auto 0.3 0 - 2 % [facility] NRBC Pct Auto 0.0 0.0 - 0.2 /100WBC [facility] Neutrophils Absolute Auto 5.0 2.0 - 8.3 x10*3/uL [facility] Imm Gran Abs Auto 0.02 0.00 - 0.03 X10*3/uL [facility] Lymphocytes Absolute Auto 1.0(L) 1.2 - 4.9 X10*3/uL [facility] Monocytes Absolute Auto 0.7 0.1 - 1.2 X10*3/uL [facility] Eosinophils Absolute Auto 0.0 0.0 - 0.4 X10*3/uL [facility] Basophils Absolute Auto 0.0 0.0 - 0.2 X10*3/uL [facility] NRBC Abs Auto 0.000 0.0 - 0.012 X10*3/uL [facility] 06/16/2024 9:16 AM EST 06/16/2024 9:21 AM EST us Generic External Data Provider LAB BLOOD ORDERAB LES Final Result [facility] [address] [place] [address] [phone] * (ABNORMAL) Prothrombin Time-INR (06/16/2024 9:16 AM EST) Prothrombin Time 15.5(H) 10.9 - 12.4 SEC [facility] INTERNATIONAL NORM RATIO 1.3(H) 0.9 - 1.1 [facility] Comment:INTERNATIONAL NORMAL IZED RATIO (INR) [...] ORDERAB LES Final Result Performing Organization Address [facility] de Phone Number [facility] [address] [place] [phone] * (ABNORMAL) B Type Natriuretic Peptide (BNP) (06/16/2024 9:16 AM EST) Pathologist [facility] B Type Natriuretic Peptide 238(H) <100 pg/mL [facility] Comment:For those patients w ho are being treated with Natrecor(nesiritide, recombinant BNP), BNP testing should beperformed at least two hours post treatment in order toensure that only endogenous levels of BNP are detected. 06/16/2024 9:16 AM EST 06/16/2024 9:21 AM EST Generic External Data Provider LAB BLOOD ORDERAB LES Final Result Performing Organization Address [facility] de Phone Number [facility] [address] [place] [phone] * Lipase (06/16/2024 9:16 AM EST) Lipase 52 8 - 78 U/L [facility] 06/16/2024 9:16 AM EST 06/16/2024 9:21 AM EST Generic External Data Provider LAB BLOOD ORDERAB LES Final Result Performing Organization Address [facility] de Phone Number [facility] [address] [place] [phone] [phone] * Hepatic Function Panel (06/16/2024 9:16 AM EST) [facility] Bilirubin, Total 0.8 0.0 - 1.0 mg/dL [facility] Bilirubin, Direct 0.3 0.0 - 0.5 mg/dL [facility] Aspartate Amino Transferase 22 5 - 37 U/L [facility] Alanine Aminotransferase 18 0 - 40 U/L [facility] Total Protein 6.5 6.5 - 8.0 g/dL [facility] Albumin Level 3.8 3.5 - 5.0 g/dL [facility] Alkaline Phosphatase 43 39 - 117 U/L [facility] 06/16/2024 9:16 AM EST 06/16/2024 9:21 AM EST Generic External Data Provider LAB BLOOD ORDERAB LES Final Result Performing Organization Address [facility] de Phone Number [facility] [address] [place] [phone] [phone] * (ABNORMAL) Basic Metabolic Panel (06/16/2024 9:16 AM EST) Only the most recent of2 resultswithin the time period is included. [facility] Sodium 141 135 - 145 mmol/L [facility] Potassium 3.5 3.3 - 5.1 mmol/L [facility] Chloride 109(H) 96 - 108 mmol/L [facility] Carbon Dioxide 26 22 - 29 mmol/L [facility] Anion Gap 10(L) 12 - 20 [facility] Urea Nitrogen (BUN) 12 9 - 16 mg/dL [facility] Creatinine, Serum 1.10 0.5 - 1.4 mg/dL [facility] Creatinine Clr Calc Pharmacy 68.0 [facility] Comment:eGFR (calculated fro m the MDRD study equation) and eCrCl(calculated from the Cockcroft-Gault equation) are based ondifferent parameters and may not yield comparable results.If eCrCl result is absurd, please check patient'sheight/weight. Estimated Glomerular Filt Rate >60 [facility] Comment:Chronic Kidney Disea se: Estimated GFR < 60 mL/min/1.77o7Xubpht Kidney Disease: Estimated GFR < 15 mL/min/1.73m2 Glucose 140(H) 60 - 115 mg/dL [facility] Calcium 8.7 8.4 - 10.2 mg/dL [facility] 06/16/2024 9:16 AM EST 06/16/2024 9:21 AM EST us Generic External Data Provider LAB BLOOD ORDERAB LES Final Result Performing Organization Address City/State/[facility] Co de Phone Number [facility] [address] [place] [address] [phone] * CT Cervical Spine w/o Contrast (06/16/2024 9:08 AM EST) Anatomical Region Laterality Modality Spine, C-spine Computed Tomogra phy 06/16/2024 9:08 AM EST Narrative 06/16/2024 9:58 AM EST ? [facility] ?[address] ?[place] [address] ? CT Scan Report ? Signed ? Patient: Min Rees ?MR#: ?? [id number] ? : 1955 ?Acct:[id number] ? Age/Sex: 68 / M ?ADM Date: 06/16/24 ? Loc: HO.ED ? Attending Dr: ? Ordering Physician: Ysabel Benton SUPERVISOR [employer]SEMBL[employer] ?? Date of Service: 06/16/24 ?? Procedure(s): CT cervical spine wo IV con ?? Accession Number(s): [id number] ? cc: Gemini Chavez MD; Ysabel Benton NP ? Report Number: ?? [id number]: Total DLP = ??436.00 mGy-cm ?? EXAMINATION: [...] signed by Bladimir Doherty MD in OV> ?06/16/24955 ? DD/ 7 ? TD/TT: 06/16/24 0944 ? Senior Storage Engineer: ? Procedure Note Donotsuhailinterpreter, Image - 06/16/[address] [address] [address] Scan Report Signed Patient: Min ReesMR#: [id number] : 6Acct:[id number] Age/Sex: 68 / MADM Date: 06/16/24 Loc: HO.ED Attending Dr: Ordering Physician: Ysabel Benton NP Date of Service: 06/16/24 Procedure(s): CT cervical spine wo IV con Accession Number(s): [id number] cc: Gemini Chavez MD; Ysabel Benton NP Report Number: [id number]: Total DLP = 436.00 mGy-cm EXAMINATION: CT [...] 06/16/24 0956 DD/ 0908 TD/TT: 06/16/24 0944 Senior Storage Engineer: [facility] External Provider IMG CT PROCEDURES Edited Result - Final * XR Chest 1 View (06/16/2024 8:45 AM EST) Anatomical Region Laterality Modality Chest Radiographic Claire ging 06/16/2024 8:45 AM EST Narrative 06/16/2024 9:05 AM EST ? [facility] ?[address] ?[place] [address] ?XRay Report ? Signed ? Patient: Min Rees ?MR#: ?? [id number] ? : 1955 ?Acct:[id number] ? Age/Sex: 68 / M ?ADM Date: 02/05/25 ? Loc: HO.ED ? Attending Dr: ? Ordering Physician: Generic ED Physician ?? Date of Service: 06/16/24 ?? Procedure(s): XR chest 1V ?? Accession Number(s): [id number] ? cc: Gemini Chavez MD; Generic ED [...] DD/ 0845 ? TD/TT: 06/16/24 0850 ? Senior Storage Engineer: ? Procedure Note Sandrakatherine, Image - 06/16/2024 [place] [address] XRay Report Signed Patient: Min ReesMR#: [id number] : 6Acct:[id number] Age/Sex: 68 / MADM Date: 06/16/24 Loc: HO.ED Attending Dr: Ordering Physician: Generic ED Physician Date of Service: 06/16/24 Procedure(s): XR chest 1V Accession Number(s): [id number] cc: Gemini Chavez MD; Generic ED Physician [...] 06/16/24 0902 DD/ 0845 TD/TT: 06/16/24 0850 Senior Storage Engineer: [facility] External Provider IMG XR PROCEDURES Edited Result - Final * US RENAL BI (05/11/2024 6:41 PM EST) Anatomical Region Laterality Modality Abdomen Ultrasound 05/11/2024 6:41 PM EST Narrative 05/11/2024 6:43 PM EST ? [facility] ?[address] ?[place] [address] ? Ultrasound Report ? Signed ? Patient: Min Rees ?MR#: ?? [id number] ? : 1955 ?Acct:[id number] ? Age/Sex: 68 / M ?ADM Date: 05/11/24 ? Loc: HO.US ? Attending Dr: Claudio Allan MD ? Ordering Physician: Claudio Allan MD ?? Date of Service: 05/11/24 ?? Procedure(s): US renal BI ?? Accession Number(s): [id number] ? cc: Claudio Allan MD; Gemini Chavez [...] 05/11/24 1842 ? DD/ 1841 ? TD/TT: 05/11/241840 ? Senior Storage Engineer: ? Procedure Note Donguanakitoter, Image - 05/11/2024 [place] [address] Ultrasound Report Signed Patient: Min ReesMR#: [id number] : 1955cct:[id number] Age/Sex: 68 / MADM Date: 05/11/24 Loc: HO.US Attending Dr: Claudio Allan MD Ordering Physician: Claudio Allan MD Date of Service: 05/11/24 Procedure(s): US renal BI Accession Number(s): [id number] cc: Claudio Allan MD; Gemini Chavez MD [...] in OV> 05/11/241841 DD/ 40 TD/TT: 05/11/241840 Senior Storage Engineer: us [facility] External Provider IMG US PROCEDURES Edited Result - Final * (ABNORMAL) Urine Protein, Total, Random without Creatinine (05/04/2024 10:18 AM EST) Protein, Total, Random Urine 30(H) <12 mg/dL [facility] 05/04/2024 10:1 8 AM EST 05/04/2024 10:48 AM EST us Generic External Data Provider LAB URINE ORDERAB LES Final Result Performing Organization Address [facility] Co de Phone Number [facility] [address] [place] [phone] * Creatinine, Random Urine (05/04/2024 10:18 AM EST) Creatinine, Urine 306.08 mg/dL [facility] 05/04/2024 10:1 8 AM EST 05/04/2024 10:48 AM EST Generic External Data Provider LAB URINE ORDERAB LES Final Result Performing Organization Address [facility] de Phone Number [facility] [address] [place] [phone] * (ABNORMAL) Urinalysis Complete (05/04/2024 10:18 AM EST) Color Urine Dark Yellow [facility] Appearance Urine Clear [facility] PH 6.0 5.0 - 9.0 [facility] Glucose Urine UA Negative Negative mg/dL [facility] Urine Blood Negative Negative [facility] Specific [place] - Urine 1.025 1.005 - 1.025 [facility] Urine Protein 30 (1+)(A) Neg-Trace mg/dL [facility] Urine Ketones Trace Negative mg/dL [facility] Nitrite Urine Negative Negative [facility] Leukocyte Esterase Urine Small (1+)(A) Negative [facility] RBC Urine 0-2 0 - 2 /HPF [facility] Urine WBC 0-5 0 - 5 /HPF [facility] Urine Squamous Epithelial Cell 0-2 0 - 2 /HPF [facility] Urine Bacteria None Seen None Seen [facility] Hyaline Casts, Urine 6-10 0 - 2 /LPF [facility] 05/04/2024 10:1 8 AM EST 05/04/2024 10:48 AM EST us Generic External Data Provider LAB URINE ORDERAB LES Final Result Performing Organization Address City/[place] [facility]/ZIP Co de Phone Number [facility] [address] [place] [address] [phone] * (ABNORMAL) Lipid Panel, Standard (05/03/2024 8:15 AM EST) Triglycerides 230(H) <150 mg/dL [facility] Comment:Desirable Triglyceri de: less than 150 mg/dLBorderline High Triglyceride 150-199 mg/dLHigh Triglyceride: 200-499 mg/dLVery High Triglyceride: greater than or equal to 5OO mg/dL Cholesterol 118 <200 mg/dL [facility] Comment:Desirable Cholestero l: less than 200 mg/dLBorderline High Cholesterol: 200-239 mg/dLHigh Cholesterol: greater than 239 mg/dL LDL Cholesterol Calculated 41 <100 mg/dL [facility] Comment:Desirable LDL: less than 100 mg/dLNear Optimal/Above Optimal LDL: 110- 129 mg/dLBorderline High LDL: 130-159 mg/dLHigh LDL: 160-189 mg/dLVery High LDL: greater than or equal to 190 mg/dL HDL Cholesterol 31(L) >40 mg/dL [facility] Comment:Desirable HDL: great er than 40 mg/dL Note: This HDL assay may give artificially low results in patients with liver disease. Blood Venous blood specimen / Unknown 05/03/2024 8:15 AM EST 05/03/2024 11:40 AM EST us Gemini Chung MD LAB BLOOD ORDERABLES Final Result Performing Organization Address City/[facility]/ZIP Co de Phone Number [facility] [address] [place] [phone] * (ABNORMAL) Comprehensive Metabolic Panel (05/03/2024 8:15 AM EST) Sodium 142 135 - 145 mmol/L [facility] Potassium 4.0 3.3 - 5.1 mmol/L [facility] Chloride 104 96 - 108 mmol/L [facility] Carbon Dioxide 30(H) 22 - 29 mmol/L [facility] Anion Gap 12 12 - 20 [facility] Urea Nitrogen (BUN) 9 9 - 16 mg/dL [facility] Creatinine, Serum 1.17 0.5 - 1.4 mg/dL [facility] Estimated Glomerular Filt Rate >60 [facility] Comment:Chronic Kidney Disea se: Estimated GFR < 60 mL/min/1.73s2Udnyph Kidney Disease: Estimated GFR < 15 mL/min/1.73m2 Glucose 73 60 - 115 mg/dL [facility] Calcium 8.7 8.4 - 10.2 mg/dL [facility] Bilirubin, Total 0.8 0.0 - 1.0 mg/dL [facility] Aspartate Amino Transferase 25 5 - 37 U/L [facility] Alanine Aminotransferase 27 0 - 40 U/L [facility] Total Protein 6.7 6.5 - 8.0 g/dL [facility] Albumin Level 3.9 3.5 - 5.0 g/dL [facility] Alkaline Phosphatase 39 39 - 117 U/L [facility] 05/03/2024 8:15 AM EST 05/03/2024 11:40 AM EST us Generic External Data Provider LAB BLOOD ORDERAB LES Final Result [facility] [address] [place] [address] [phone] * (ABNORMAL) POCT HGB A1C (11/11/2023 11:12 AM EDT) Hemoglobin A1C 6.4(A) 4.0 - 6.0 % QC Media Lot # [id number] Lot# Expiration Date ,026 Blood 11/11/2023 11:1 2 AM EDT Gemini Chung MD POINT OF CARE TEST EN TER/EDIT ORDERABLES Final Result * Hepatitis C Antibody Reflex (12/13/2022 8:21 AM EDT) Hepatitis C Antibody Nonreactive Nonreactive [facility] Comment:Antibodies to HCV no t detected; does not exclude early acuteHCV infection. 12/13/2022 8:21 AM EDT 12/13/2022 11:08 AM EDT Gemini Chung MD LAB BLOOD ORDERABLES Final Result [facility] [address] [place] [address] [phone] from Last 3 Months or Most Recently Relevant to Health Maintenance Insurance - [employer] Care Teams Child Nurse Relationship Specialty Start Date End Date Gemini Chavez MD [address] [place] [address] PCP - General Family Medicine 01/21/18 [employer] 03/28/24
--- OUTSIDE RECORDS SUMMARY | 2024-07-22 16:45 | XMS_ITS | Encounter Summary ---
Author Organization [employer] Address 75 [facility] 7t [place] [address] Care Team Providers Care Slot Host Name Role Phone Gemini Chavez MD Primary Care Provide r Reason for Visit * Reason Comments Med Refill Encounter Details Date Type Department Care Team ([facility] st Contact Info) Description 03/03/2024 Refill [facility] [address] [place], [place] [phone] Gemini Chavez MD [address] [place], [place] [phone] Social History Tobacco Use Types Packs/Day Years [...] documented as of this encounter Care Teams Slot Host Relationship Specialty Start Date End Date Gemini Chavez MD [address] [place] [address] PCP - General Family Medicine 01/21/18 [employer] 03/28/24 documented as of this encounter
--- OUTSIDE RECORDS SUMMARY | 2024-07-22 16:45 | XMS_ITS | Encounter Summary ---
Author Organization [employer] Address 75 [facility] 7t [place] [address] Care Team Providers Care Spring Coverer Name Role Phone Gemini Chavez MD Primary Care Provide r Reason for Visit * Reason Comments Med Refill Encounter Details Date Type Department Care Team ([facility] st Contact Info) Description 10/20/2023 Refill [facility] [address] [place], [place] [phone] Gemini Chavez MD [address] [place] [address] Seasonal allergies Social History Tobacco Use Types [...] documented as of this encounter Care Teams Spring Coverer Relationship Specialty Start Date End Date Gemini Chavez MD [address] [place] [phone] PCP - General Family Medicine 01/21/18 [facility] 03/28/24 documented as of this encounter
--- OUTSIDE RECORDS SUMMARY | 2024-07-22 16:45 | XMS_ITS ---
Author Organization [facility] Address [address] [place] [address] Care Team Providers Care Irrigation Tax Assessor Collector Name Role Phone Gemini Fisher M.D. Primary Care Provider Abimael Carnes Jr, Larry Unavailable Katherine FORTE, Cipriano Unavailable Unavailable REASON FOR VISIT pathology Encounters Encounter Location Date Provider Diagnosis [facility] [address] [place] [address] 04/14/2023 Larry Carnes Jr Plan Of Treatment No Information Progress Notes * BEN DAILYIODOB: 1955 (67 yo M)Acc No.[id number]:04/14/2023 Patient:?KOBE DAILY :1955???Age:67 Y???Sex:Male Address:[address] [place] [address] [address] , [place], [address] * true * Date:? Generated for Byroni bobby/Aylin/eTransmitting on:?07/22/2024 10:41 AM EDT
--- OUTSIDE RECORDS SUMMARY | 2024-07-22 16:45 | XMS_ITS | Encounter Summary ---
Author Organization [employer] Address 75 [facility] 7t [place] [address] Care Team Providers Care Knife Sharpener Name Role Phone Gemini Chavez MD Primary Care Provide r Reason for Visit * Reason Comments Hypertension Blood pressure check Pt was in [facility] 07/05/24 has new rx: amlodipine 5mg QAM Encounter Details Date Type Department Care Team (Latest Contact Info) Description 07/12/2024 11:00 AM EST Clinical Support [facility] [address] [place], [place] [phone] Elyssa Barajas RN Dietary counseling; Exercise counseling; [...] for PCP visit 07/22/24 to evaluate BP. MD will also discuss weight gain reported, and re attempt approval for Zepbound by insurance. documented in this encounter Progress Notes * Elyssa Barajas RN - 07/12/2024 11:00 AM EST SUBJECTIVE: Min Cano is a 68 y.o. year old male who presents for Hypertension (Blood pressure check/[facility]24 has new rx: amlodipine 5mg QAM) Preferred language for medical information: tonger needed: yes- GUSTABO Platt Recommendations at last visit were : Hypertension - Primary -continue hydrochlorothiazide 12.5 mg daily -continue metoprolol XL 200 daily -continue furosemide 40mg mg daily >-start amlodipine 2.5mg daily 07/05/24 >Ordered as: amLODIPine (Norvasc) 2.5 MG tablet Take 2 tablets (5 mg) by mouth Once per day. Dispense: 60 tablet, Refills: 11 ordered 07/05/2024 07/05/2025 -low NA diet and lifestyle modification discussed -continue home BP checks Pt has follow up already scheduled with PCP for 07/22/24 Today, Min Cano denies blurred vision, shortness of breath, chest pain Pt does endorse headaches today: takes tylenol but it does not work well Has head aches by history, the quality is about the same Pt does endorse dizziness when he stands up. He states in the past he has fallen at home, reminded pt to wear and use medic alert. Information relayed to Dr Fisher after nurse visit. Pt has history of vertigo, has meclizine rx. Current Outpatient Medications Medication Sig Dispense Refill Acetaminophen Extra Strength 500 MG tablet TOME FAUSTINA TABLETA POR V A ORAL CADA SEIS HORAS CUANDO SEANECESARIO MAX 8 TABS DAILY 40 tablet 2 albuterol (2.5 MG/3ML) 0.083% nebulizer solution USE 1 VIAL VIA NEBULIZER KINJAL VECES AL СЕРГЕЙ 150 mL 3 amLODIPine (Norvasc) 2.5 MG tablet Take 2 tablets (5 mg) by mouth Once per day. 60 tablet 11 apixaban (Eliquis) 5 MG tablet TAKE 1 TABLET BY MOUTH TWICE A DAY 180 tablet 0 Blood Pressure Monitoring ([employer] Blood Pressure Monitor) [facility] USE TO MONITOR BLOOD PRESSURE 1 each 0 cholecalciferol (Vitamin D-3) 25 MCG (1000 UT) tablet Take 1 tablet (25 mcg) by mouth Once per day.60 tablet 1 cholecalciferol (Vitamin D-3) 50 MCG (2000 UT) tablet TAKE 1 TABLET BY MOUTH EVERY DAY 90 tablet 3 clonazePAM (KlonoPIN) 1 MG tablet TOME FAUSTINA TABLETA DOS VECES AL D A CUANDO SEA NECESARIO Creon [id number] units capsule delayed-release particles capsule Take 2 capsules by mouth 4 timesdaily. ADMINISTER WITH MEALS AND/OR SNACKS cyclobenzaprine (Flexeril) 10 MG tablet Take 1 tablet (10 mg) by mouth at bedtime for 10 days. 10 tablet 0 Diclofenac Sodium 1 % gel APPLY 2 GRAMS TOPICALLY FOUR TIMES DAILY 300 g 2 EPINEPHrine (Epipen) 0.3 MG/0.3ML injection syringe INJECT 0.3 MG (0.3 ML) INTRAMUSCULARLY EVERY 4 HOURS NEEDED FOR ANAPHYLAXIS AND CALL 911 Fluticasone-Salmeterol 250-50 MCG/ACT aerosol powder Inhale 1 puff 2 times daily. furosemide (Lasix) 40 MG tablet TAKE ALTERNATING DOSE OF 1 TABLET AND 1 1/2 TABLET EVERY OTHER DAY 114 tablet 1 hydroCHLOROthiazide 12.5 MG tablet TAKE 1 TABLET BY MOUTH EVERY DAY 90 tablet 1 hydrOXYzine pamoate (Vistaril) 25 MG capsule hydroxyzine pamoate 25 mg capsule TOME FAUSTINA C PSULA DOS VECES AL D A CUANDO SEA NECESARIO levothyroxine (Synthroid, Levoxyl) 100 MCG tablet TAKE 1 TABLET BY MOUTH EVERY DAY 90 tablet 1 lisinopril 40 MG tablet TAKE 1 TABLET BY MOUTH EVERY MORNING 90 tablet 0 loratadine (Claritin) 10 MG tablet TAKE 1 TABLET BY MOUTH EVERY DAY IF NEEDED FOR ALLERGIES 90 tablet 1 meclizine (Antivert) 25 MG tablet TOME FAUSTINA TABLETA (25 MG) POR VIA ORAL CUANDO SEA NECESARIO KINJAL VECES AL СЕРГЕЙ (MORNING, NOON AND AT BEDTIME) PARA EL MAREO 30 tablet 0 metFORMIN (Glucophage) 500 MG tablet Take 1 tablet (500 mg) by mouth with breakfast and with evening meal. 60 tablet 11 metoprolol succinate XL (Toprol-XL) 200 MG 24 hr tablet TAKE 1 TABLET BY MOUTH EVERY DAY 90 tablet 1 pantoprazole (ProtoNix) 40 MG EC tablet TAKE 1 TABLET BY MOUTH EVERY DAY 90 tablet 3 Respiratory Therapy Supplies (Nebulizer/Tubing/Mouthpiece) kit Use along with nebulizer 1 kit 0 rosuvastatin (Crestor) 40 MG tablet TOME 1 TABLETA POR VIA ORAL TODOS [place]ER[place] 90 tablet 1 Semaglutide-Weight Management (Wegovy) 1 MG/0.5ML solution auto-injector INJECT ONE PEN (=1MG) SUBCUTANEOUSLY ONCE A WEEK 2 mL 0 Semaglutide-Weight Management (Wegovy) 2.4 MG/0.75ML solution auto-injector INJECT 2.4 ML UNDER THESKIN EVERY 7 (SEVEN) DAYS. 2 mL 0 simethicone (Mylicon,Gas-X) 180 MG capsule Anti-Gas Ultra Strength 180 mg capsule TOME 1 C PSULA POR V A ORAL CUATRO VECES AL D A AFTER MEALS FOR 30 DAYS Tirzepatide-Weight Management (Zepbound) 2.5 MG/0.5ML solution auto-injector Inject 0.5 mL (2.5 mg)under the skin 1 (one) time per week. 2 mL 0 Umeclidinium Bogard (Incruse Ellipta) 62.5 MCG/ACT aerosol powder Take 1 Inhalation. by mouth in the morning. Inhale 1 puff by inhalation route every day at the same time each day 30 each 3 Ventolin HFA 108 (90 Base) MCG/ACT inhaler Inhale 2 puffs every 4 (four) hours if needed for shortness of breath or wheezing. Vitamin E 45 MG (100 UNIT) capsule TOME 1 CAPSULA POR VIA ORAL CADA MANANA 30 capsule 11 zolpidem (Ambien) 10 MG tablet zolpidem 10 mg tablet TOME FAUSTINA TABLETA TODOS LOS D AL ACOSTARSE CUANDO SEA NECESARIO No current facility-administered medications for this visit. Patient Active Problem List Diagnosis Date Noted Stage 3 chronic kidney disease ([facility]) 04/16/2024 Class 1 obesity due to excess calories with serious comorbidity and body mass index (BMI) of 33.0 to 33.9 in adult 02/11/2024 Benign prostatic hyperplasia (BPH) with straining on urination 02/11/2024 Class 2 severe obesity due to excess calories with serious comorbidity and body mass index (BMI) of38.0 to 38.9 in adult ([facility]) 11/11/2023 Colon cancer screening 09/03/2023 Atrial fibrillation with RVR ([facility]) 08/22/2023 Mixed stress and urge urinary incontinence 07/10/2023 Weight gain 05/19/2023 Prediabetes 05/19/2023 Polyarthralgia 03/05/2023 Preop examination 02/13/2023 COPD with asthma ([facility]) 01/22/2023 Needle exposure 12/12/2022 Hoarseness, persistent 11/28/2022 Venous stasis 11/28/2022 Venous insufficiency of lower extremity 11/28/2022 Pain in right toe(s) 11/04/2022 Vertigo 11/04/2022 Aching headache 05/16/2022 Chronic obstructive lung disease ([facility]) 05/16/2022 Chronic systolic heart failure ([facility]) 05/16/2022 Dyspnea on exertion 05/16/2022 Vascular insufficiency 05/16/2022 Acquired hypothyroidism 02/04/2018 History of alcohol abuse 06/23/2012 Simple renal cyst 06/23/2012 Steatohepatitis 06/23/2012 Atrial fibrillation ([facility]) 12/12/2011 Ptosis of eyelid 12/12/2011 Rupture of quadriceps tendon 12/12/2011 Sleep apnea 12/12/2011 Anxiety state 10/31/2011 Coronary atherosclerosis 10/31/2011 Hypertension 10/31/2011 Mood disorder ([facility]) 10/31/2011 Pure hypercholesterolemia 10/31/2011 Iodinated contrast media and Kiwi extract Min Cano does confirm adherence to medications for hypertension listed above. Confirmed medications taken today [x] Recent emergency room or hospitalizations: on 06/16/24 for c/o TAYE- work up negative/no new changes Notes scanned into chart: yes Social History Tobacco Use Smoking Status Former Types: Cigarettes Passive exposure: Past Smokeless Tobacco Never Social History Substance and Sexual Activity Alcohol Use Never Social History Substance and Sexual Activity Drug Use Never BP Readings from Last 4 Encounters: 07/12/24 (!) 170/94 07/05/24 (!) 150/96 04/16/24 118/82 02/11/24 130/84 Pulse Readings from Last 4 Encounters: 07/12/24 88 07/05/24 90 04/16/24 80 02/11/24 87 OBJECTIVE: Vitals: 07/12/24 1148 07/12/24 1149 BP: (!) 166/92 (!) 170/94 BP Location: Right arm Left arm Patient Position: Sitting Sitting BP Cuff Size: Large adult Large adult Pulse: 88 Resp: 20 SpO2: 98% Weight: 211 lb 3.2 oz (95.8 kg) Height: 5' 6.75 (1.695 m) ASSESSMENT: Achieve goal blood pressure of <140/90 or <130/80 PLAN: Today's findings reviewed with PCP. Changes to medication regimen are: Increase amlodipine to 10 mg PO QD. Min Cano advised to continue taking medications as directed and reinforcement of lifestyle modifications including low sodium diet and exercise were reviewed. Min Cano agreeable to plan discussed at today's visit. Pt also concerned the weight gain of 17 lbs since his [employer] was no longer approved. Recent Rx of Zepbound declined by insurance. D/W Phillip who stated she will d/w pt during scheduled OV on 07/22/24 and reattempt approval for same. Pt notified of this information and agreeable to plan of care. Today's weight is 211.2 lbs. Previous weight on 05/04/24 was 203 lbs. Future Appointments Date Time Provider Department Center 07/22/2024 11:00 AM Gemini Chung MD MEDICINE [facility] Elyssa Barajas RN documented in this encounter Plan of Treatment Not on file documented as of this encounter Visit Diagnoses Diagnosis Dietary counseling Dietary surveillance and counseling Exercise counseling Primary hypertension Unspecified essential hypertension documented in this encounter Additional Health Concerns Assessment Noted Time PHQ-9 Depression Total Score: 0 09/03/19 9:55 AM EDT documented as of this encounter Care Teams Knife Sharpener Relationship Specialty Start Date End Date Gemini Chavez MD [address] [place] [address] PCP - General Family Medicine 01/21/18 [employer] 03/28/24 documented as of this encounter
--- OUTSIDE RECORDS SUMMARY | 2024-07-22 16:45 | XMS_ITS | Encounter Summary ---
Author Organization [employer] Address 75 [facility] 7t [place] [address] Care Team Providers Care Pbx Operator Name Role Phone Gemini Chavez MD Primary Care Provide r Reason for Visit * Reason Comments Med Refill Encounter Details Date Type Department Care Team ([facility] st Contact Info) Description 07/02/2024 Refill [facility] [address] [place], [place] [phone] Gemini Chavez MD [address] [place], [place] [phone] Pure hypercholesterolemia Social History Tobacco Use Types [...] documented as of this encounter Care Teams Pbx Operator Relationship Specialty Start Date End Date Gemini Chavez MD [address] [place] [address] PCP - General Family Medicine 01/21/18 [employer] 03/28/24 documented as of this encounter
--- OUTSIDE RECORDS SUMMARY | 2024-07-22 16:45 | XMS_ITS | Encounter Summary ---
Author Organization [employer] Address [address] [facility] 7t [place] [address] Care Team Providers Care Tube Skiver Name Role Phone Gemini Chavez MD Primary Care Provide r Encounter Details Date Type Department Care Team (Late st Contact Info) Description 05/10/2024 Orders Only [facility] [address] [place], [place] [phone] Gemini Chavez MD [address] [place], [place] [phone] Stage 3 chronic kidney disease, unspecified whether [...] of 38.0 to 38.9 in adult (CMS/HCC) documented in this encounter Additional Health Concerns Assessment Noted Time PHQ-9 Depression Total Score: 0 09/03/19 9:55 AM EDT documented as of this encounter Care Teams Tube Skiver Relationship Specialty Start Date End Date Gemini Chavez MD [address] [place] [address] PCP - General Family Medicine 01/21/18 [employer] 03/28/24 documented as of this encounter
--- OUTSIDE RECORDS SUMMARY | 2024-07-22 16:45 | XMS_ITS | Encounter Summary ---
Author Organization [employer] Address 75 [facility] 7t [place] [address] Care Team Providers Care Ditch Cleaner Name Role Phone Gemini Chavez MD Primary Care Provide r Reason for Visit * Reason Comments Pre-visit Planning (Unable to reach for PVP screening, LVM) Encounter Details Date Type Department Care Team ([facility] st Contact Info) Description 07/15/2024 Patient Outreach [facility] [address] [place] [address] Gemini Chavez MD [address] [place] [address] Pre-visit Planning ((Unable to reach for PVP [...] documented as of this encounter Care Teams Ditch Cleaner Relationship Specialty Start Date End Date Gemini Chavez MD [address] [place] [address] PCP - General Family Medicine 01/21/18 [employer] 03/28/24 documented as of this encounter
--- OUTSIDE RECORDS SUMMARY | 2024-07-22 16:45 | XMS_ITS | Patient Health Record ---
Author Organization [facility] Address [address] [place] [address] Care Team Providers Care Local Company Truck Driver Name Role Phone Gemini Fisher M.D. Primary Care Provider Larry Angeles Jr Unavailable [phone] Katherine FORTE, Cipriano Unavailable Unavailable Allergies No Known Allergies Reason For Referral No Information Medications Medication SIG (Take, Route, Frequency, Duration) Notes Start Date End Date Status Creon [id number] UNIT TOME 2 C PSULAS POR V [...] Status W/U Status Risk Notes Problem Dysphagia (91806456) Dysphagia (R13.10) Active confirmed Problem 75015669 Dysphagia, unspecified type (R13.10) Active confirmed Problem 338445232 Abnormal barium swallow (R93.3) Active confirmed Problem 794108400 Gastroesophageal reflux disease, unspecified whether esophagitis present (K21.9) Active confirmed Problem 934389038 Presbyesophagus (K22.89) Active confirmed Plan Of Treatment Future Test Test Name Order Date UPPER GI ENDOSCOPY 03/13/2023 Insurance Providers Payer Name Payer Address Payer Phone Subscriber Number Group Number Insured Name Patient Relationship to Insured Coverage Start Date Coverage End Date [facility] [address] Attn Claims CLIFF Perez [id number] KOBE DAILY Self - patient is the insured Medical (General) History Medical History History ICD Code CE/COPD hypertension Fatty liver pulmonary nodule Elevated BMI Atrial fibrillation Hypothyroidism Gastroesophageal reflux disease/dysphagi a Surgical History Surgery Date(Month/Year) Cataract surgery Umbilical hernia repair Tonsillectomy
--- OUTSIDE RECORDS SUMMARY | 2024-07-22 16:45 | XMS_ITS | Clinical Summary ---
Author Organization [facility] Address [address] [place] [address] Phone Care Team Providers Care Product Promoter Retail Pet Name Role Phone Gemini Chavez MD Primary Care Provide r Allergies No known active allergies Encounters Date Type Department Care Team Description 06/02/2024 1:45 PM EST Office Visit [facility] [address] [phone] Gallito Hancock DPM Ingrowing nail [...] Description 09/01/2024 1:00 PM EDT Office Visit [facility] [address] [phone] Gallito Hancock DPM [address] [address] Health Maintenance Due Date Last [...] patient's age to complete [place] [address] [employer] MEDICARE Member Subscriber Plan / Payer (Ef fective 2022-Present) Name:Min Rees Relation to Subscriber:Self Name:Min Rees Payer ID:[id number] Group ID:[id number] Type:Not on file Address: [place] [address] [place] [address] Care Teams Product Promoter Retail Pet Relationship Specialty Start Date End Date Gemini Chavez MD [address] [place] [phone] PCP - General 04/24/23
--- OUTSIDE RECORDS SUMMARY | 2024-07-22 16:45 | XMS_ITS | Encounter Summary ---
Author Organization [employer] Address 75 [facility] 7t [place] [address] Care Team Providers Care Hog Ribber Name Role Phone Gemini Chavez MD Primary Care Provide r Reason for Visit * Reason Onset Date Comments Referral 03/14/2023 Encounter Details Date Type Department Care Team ([facility] st Contact Info) Description 03/14/2023 Telephone [facility] [address] [place], [place] [phone] Gemini Chavez MD [address] [place] [address] Referral Social History Tobacco Use Types Packs/Day [...] documented as of this encounter Care Teams Hog Ribber Relationship Specialty Start Date End Date Gemini Chavez MD [address] [place] [address] PCP - General Family Medicine 01/21/18 [employer] 03/28/24 documented as of this encounter
--- OUTSIDE RECORDS SUMMARY | 2024-07-22 16:45 | XMS_ITS | Encounter Summary ---
Author Organization [facility] Address [address] [facility] 7t [place] [address] Care Team Providers Care Straightedge Man Name Role Phone Gemini Chavez MD Primary Care Provide r Reason for Visit * Reason Comments Med Refill Encounter Details Date Type Department Care Team (Late st Contact Info) Description 09/08/2022 Refill [facility] [address] [place], [place] [phone] Umer Sears MD [address] [place], [place] [phone] Seasonal allergies Social History Tobacco Use Types [...] documented as of this encounter Care Teams Straightedge Man Relationship Specialty Start Date End Date Gemini Chavez MD [address] [place], [place] [phone] PCP - General Family Medicine 01/21/18 [employer] 03/28/24 documented as of this encounter
--- OUTSIDE RECORDS SUMMARY | 2024-07-22 16:45 | XMS_ITS ---
Author Organization [facility] Address [address] [place] [address] Care Team Providers Care Knitted Garment Finisher Name Role Phone Phillip Sousa, Gemini Primary Care Provider Larry Angeles Jr Unavailable Katherine FORTE, Cipriano Unavailable Unavailable REASON FOR VISIT dysphagia Problems Problem Type SNOMED Code ICD Code Onset Dates Problem Status W/U Status Risk Notes Problem Dysphagia (23761685) Dysphagia (R13.10) Active confirmed Encounters Encounter Location Date Provider Diagnosis [facility] [address] [place] [place], [place] [phone] 04/01/2023 Larry Carnes Jr Dysphagia R13.10 and Abn findings-GI tract R93.3 Assessments Encounter Date Diagnosis (ICD Code) Assessment Notes Treatment Notes Treatment Clinical Notes Section Notes 04/01/2023 Dysphagia (ICD-10 - R13.10) 04/01/2023 Abn findings-GI tract (ICD-10 - R93.3) Plan Of Treatment No Information Progress Notes * BEN DAILYIODOB: 1955 (68 yo M)Acc No.[id number]:04/01/2023 EGD/MAC Patient:?KOBE DAILY Provider:?Laryr Carnes MD :1955???Age:67 Y???Sex:Male Jose Manuel e:04/01/2023 Address:[address] [place], [place] [id number] Pcp:Gemini Fisher M.D. Subjective: * Chief Complaints: * ???1. Dysphagia. * Medical History:? Objective: * Vitals:? Assessment: * Assessment: 1.?Dysphagia - R13.10 (Prima ry)???2.?Abn findings-GI tract - R93.3??? Plan: * Treatment: * Procedure Codes:?56376 UPPER GI ENDOSCOPY, BIOPSY * * The named appointment provid er may or may not be the originator of this progress note, and it is not deemed complete until electronically signed by the appointment provider. Sign off status: Pending * Provider:?Larry Carnes MD Date:?1 06/01/2022 Generated for Dutch rosales/Aylin/eTransmitting on:?07/22/2024 04:44 PM EDT
--- OUTSIDE RECORDS SUMMARY | 2024-07-22 16:45 | XMS_ITS | Encounter Summary ---
Author Organization [employer] [facility] Address [address] [facility] 7t [place] [address] Care Team Providers Care Marketing Content Coordinator Name Role Phone Gemini Chavez MD [...] as of this encounter Care Teams Marketing Content Coordinator Relationship Specialty Start Date End Date Gemini Chavez MD [address] [place] [address] PCP - General Family Medicine 01/21/18 [employer] 03/28/24 documented as of this encounter
--- OUTSIDE RECORDS SUMMARY | 2024-07-22 16:45 | XMS_ITS | Encounter Summary ---
Author Organization [employer] Address [address] [facility] 7t [place] [address] Care Team Providers Care Net Mvc Developer Name Role Phone Gemini Chavez MD Primary Care Provide r Reason for Visit * Reason Onset Date Comments Prior Authorization 06/10/2024 Encounter Details Date Type Department Care Team ([facility] st Contact Info) Description 06/10/2024 Telephone [facility] [address] [place], [place] [phone] Gemini Chavez MD [address] [place] [address] Prior Authorization Social History Tobacco Use Types [...] is required on PA. Contact pt at [phone] (south korean) * Telephone Encounter - Rohit Cruz - 06/10/2024 9:00 AM EST Tc from pt requesting a PA for Tirzepatide-Weight Management (Zepbound) 2.5 MG/0.5ML solution auto-injector because pt stated that he received a letter stating that PA got denied. Contact pt: [phone] (Kyrgyz) documented in this encounter Plan of Treatment Not on file documented as of this encounter Visit Diagnoses Not on filedocumented in this encounter Additional Health Concerns Assessment Noted Time PHQ-9 Depression Total Score: 0 09/03/19 9:55 AM EDT documented as of this encounter Care Teams Net Mvc Developer Relationship Specialty Start Date End Date Gemini Chavez MD [address] [place] [address] PCP - General Family Medicine 01/21/18 [employer] 03/28/24 documented as of this encounter
--- OUTSIDE RECORDS SUMMARY | 2024-07-22 16:45 | XMS_ITS | Encounter Summary ---
Author Organization [employer] Address [address] [facility] 7t [place] [address] Care Team Providers Care Senior Consultant Name Role Phone Gemini Chavez MD Primary Care Provide r Reason for Visit * Reason Comments Med Change Request Encounter Details Date Type Department Care Team ([facility] st Contact Info) Description 01/08/2023 Refill [facility] MED[facility]INE [address] [place], [place] [phone] Marsha Menjivar MD [address] [place], [place] [phone] Chronic obstructive pulmonary disease, unspecified COPD type (CMS/FORMERLY [facility]) Social History Tobacco Use Types Packs/Day Years [...] generated for Nebulizer signed and faxed to [facility]. documented in this encounter Plan of Treatment Not on file documented as of this encounter Visit Diagnoses Diagnosis Chronic obstructive pulmonary disease, unspecified COPD type (CMS/HCC) documented in this encounter Additional Health Concerns Assessment Noted Time PHQ-9 Depression Total Score: 6 05/16/19 23 1:42 PM EST documented as of this encounter Care Teams Senior Consultant Relationship Specialty Start Date End Date Gemini Chavez MD [address] [place] [address] PCP - General Family Medicine 01/21/18 [employer] 03/28/24 documented as of this encounter
--- OUTSIDE RECORDS SUMMARY | 2024-07-22 16:45 | XMS_ITS | Encounter Summary ---
Author Organization [facility] Address [address] [facility] 7t [place] [address] Care Team Providers Care Shooting Gallery Operator Name Role Phone Gemini Chavez MD Primary Care Provide r Reason for Visit * Reason Comments Med Refill Encounter Details Date Type Department Care Team ([facility] st Contact Info) Description 10/07/2022 Refill [facility] [address] [place], [place] [phone] Gemini Chavez MD [address] [place] [address] Chronic systolic heart failure (CMS/HCC) Social History [...] documented as of this encounter Care Teams Shooting Gallery Operator Relationship Specialty Start Date End Date Gemini Chavez MD [address] [place] [address] PCP - General Family Medicine 01/21/18 [employer] 03/28/24 documented as of this encounter
--- OUTSIDE RECORDS SUMMARY | 2024-07-22 16:46 | XMS_ITS | Encounter Summary ---
Author Organization [employer] Address [address] [facility] 7t [place] [address] Care Team Providers Care Geoscience Laboratory Technician Name Role Phone Gemini Chavez MD Primary Care Provide r Reason for Visit * Reason Onset Date Comments Med Refill 07/15/2024 Encounter Details Date Type Department Care Team (Late st Contact Info) Description 07/15/2024 Refill [facility] [address] [place] [address] Gemini Chavez MD [address] [place] [address] Social History Tobacco Use Types Packs/Day Years [...] encounter Miscellaneous Notes * Telephone Encounter - Elyssa Barajas RN - 07/15/2024 10:41 AM EST Please see nurse visit notes 07/12/24 Dose increase based on recommendations documented in this encounter Plan of Treatment Not on file documented as of this encounter Visit Diagnoses Not on filedocumented in this encounter Additional Health Concerns Assessment Noted Time PHQ-9 Depression Total Score: 0 09/03/19 24 9:55 AM EDT documented as of this encounter Care Teams Geoscience Laboratory Technician Relationship Specialty Start Date End Date Gemini Chavez MD [address] [place] [address] PCP - General Family Medicine 01/21/18 [email or web address] 03/28/24 documented as of this encounter
--- OUTSIDE RECORDS SUMMARY | 2024-07-22 16:46 | XMS_ITS | Encounter Summary ---
Author Organization [email or web address] [facility] Address [address] [facility] 7t [place] [address] Care Team Providers Care Door Opener Name Role Phone Gemini Chavez MD Primary Care Provide r Encounter Details Date Type Department Care Team (Latest Contact Info) Description 07/22/2024 Travel Social History Tobacco Use Types Packs/Day [...] documented as of this encounter Care Teams Door Opener Relationship Specialty Start Date End Date Gemini Chavez MD [address] [place] [address] PCP - General Family Medicine 01/21/18 [employer] 03/28/24 documented as of this encounter
--- OUTSIDE RECORDS SUMMARY | 2024-07-22 16:46 | XMS_ITS | Encounter Summary ---
Author Organization [employer] Address [address] [facility] 7t [place] [address] Care Team Providers Care Junior Software Engineer Name Role Phone Gemini Chavez MD Primary Care Provide r Encounter Details Date Type Department Care Team ([facility] st Contact Info) Description 07/22/2024 11:00 AM EDT Office Visit [facility] MEDICINE [address] [place], [place] [phone] Gemini Chavez MD [address] [place], [place] [phone] Precordial pain (Primary Dx); Class 1 obesity [...] EDT Inhaled Oxygen Concentration - - Weight - - Height - - Body Mass Index - - documented in this encounter Progress Notes * Gemini Chung MD - 07/22/2024 11:00 AM EDT SUBJECTIVE: Min Cano is a 68 y.o. year old male who presents for Chronic Disease Management . Acute Concerns: Chest pain: Patient woke up today with acute chest pain located in the middle of his chest, pain isdescribed as sharp that comes and goes and it radiates to his left arm, he also is complaining of acute on chronic shortness of breath Patient wanted to come to this visit, his main reason is that he was on Wegovy and was losing weight and feeling better, due to insurance Wegovy was discontinue and he has been gaining some weight again, he was wondering if there is any other alternative to the medication that it was prescribed forhim before Social History Social History Narrative Not on file Patient Active Problem List Diagnosis Aching headache Acquired hypothyroidism Anxiety state Atrial fibrillation ([facility] Chronic obstructive lung disease ([facility]) Chronic systolic heart failure ([facility]) Coronary atherosclerosis Dyspnea on exertion Hypertension History of alcohol abuse Mood disorder ([facility]) Ptosis of eyelid Pure hypercholesterolemia Rupture of quadriceps tendon Simple renal cyst Sleep apnea Steatohepatitis Vascular insufficiency Pain in right toe(s) Vertigo Hoarseness, persistent Venous stasis Venous insufficiency of lower extremity Needle exposure COPD with asthma ([facility]) Preop examination Polyarthralgia Weight gain Prediabetes Mixed stress and urge urinary incontinence Atrial fibrillation with RVR ([facility]) Colon cancer screening Class 2 severe obesity due to excess calories with serious comorbidity and body mass index (BMI) of38.0 to 38.9 in adult ([facility]) Class 1 obesity due to excess calories with serious comorbidity and body mass index (BMI) of 33.0 to 33.9 in adult Benign prostatic hyperplasia (BPH) with straining on urination Stage 3 chronic kidney disease ([facility]) Precordial pain No family history on file. Review of Systems Constitutional: Positive for unexpected weight change. HENT: Negative. Respiratory: Positive for shortness of breath. Negative for apnea, cough, choking, chest tightness,wheezing and stridor. Cardiovascular: Positive for chest pain. Negative for palpitations and leg swelling. OBJECTIVE: Vitals: 07/22/24 1057 BP: (!) 139/94 BP Location: Right arm Patient Position: Sitting BP Cuff Size: Large adult Pulse: 78 Resp: 18 Temp: 97.1 ??F (36.2 ??C) SpO2: 99% Physical Exam Constitutional: Appearance: Normal appearance. Cardiovascular: Rate and Rhythm: Normal rate. Rhythm irregular. Pulmonary: Effort: Pulmonary effort is normal. Breath sounds: Normal breath sounds. Abdominal: General: Abdomen is flat. Palpations: Abdomen is soft. Musculoskeletal: Right lower leg: No edema. Left lower leg: No edema. Neurological: Mental Status: He is alert. Follow Up: No follow-ups on file. Current Outpatient Medications on File Prior to Visit Medication Sig Dispense Refill Acetaminophen Extra Strength 500 MG tablet TOME FAUSTINA TABLETA POR V A ORAL CADA SEIS HORAS CUANDO SEANECESARIO MAX 8 TABS DAILY 40 tablet 2 albuterol (2.5 MG/3ML) 0.083% nebulizer solution USE 1 VIAL VIA NEBULIZER KINJAL JORGENSEN 150 mL 3 amLODIPine (Norvasc) 10 MG tablet Take 1 tablet (10 mg) by mouth Once per day. 30 tablet 11 amLODIPine (Norvasc) 2.5 MG tablet Take 2 tablets (5 mg) by mouth Once per day. 60 tablet 11 apixaban (Eliquis) 5 MG tablet TAKE 1 TABLET BY MOUTH TWICE A DAY 180 tablet 0 Blood Pressure Monitoring ([employer] Blood Pressure Monitor) [facility] USE TO MONITOR BLOOD PRESSURE 1 each 0 cholecalciferol (Vitamin D-3) 25 MCG (1000 UT) tablet Take 1 tablet (25 mcg) by mouth Once per day.60 tablet 1 cholecalciferol (Vitamin D-3) 50 MCG (2000 UT) tablet TAKE 1 TABLET BY MOUTH EVERY DAY 90 tablet 3 clonazePAM (KlonoPIN) 1 MG tablet TOMChristine WEEMS TABLETA DOS VECES AL D A [facility] NECESARIO Creon [id number] units capsule delayed-release particles capsule Take 2 [...] D A AFTER MEALS FOR 30 DAYS Umeclidinium [place] (Incruse Ellipta) 62.5 MCG/ACT aerosol powder Take [...] LOS D AL ACOSTARSE CUANDO SEA NECESARIO [DISCONTINUED] Tirzepatide-Weight Management (Zepbound) 2.5 MG/0.5ML solution auto-injector Inject 0.5 mL (2.5 mg) under the skin 1 (one) time per week. 2 mL 0 No current facility-administered medications on file prior to visit. Problem List Items Addressed This Visit Precordial pain - Primary EKG done today shows his baseline A-fib no ST changes I ordered today in office aspirin 325 mg stat and nitroglycerin 0.4 mg under the tongue Patient will be sent to the emergency room via EMS Relevant Medications aspirin chewable tablet 325 mg (Completed) nitroglycerin (Nitrostat) SL tablet 0.4 mg Other Relevant Orders ECG 12 lead (Completed) Class 1 obesity due to excess calories with serious comorbidity and body mass index (BMI) of 33.0 to 33.9 in adult Patient is no longer on Wegovy, I will prescribe today for patient Zepbound 2.5 mg weekly counseling about side effects done today patient also counseled about healthy diet Relevant Medications Tirzepatide-Weight Management (Zepbound) 2.5 MG/0.5ML solution auto-injector documented in this encounter Miscellaneous Notes * Assessment & Plan Note - Gemini Chung MD - 07/22/2024 11:28 AM EDT Associated Problem(s): Class 1 obesity due to excess calories with serious comorbidity and body mass index (BMI) of 33.0 to 33.9 in adult Patient is no longer on Wegovy, I will prescribe today for patient Zepbound 2.5 mg weekly counseling about side effects done today patient also counseled about healthy diet * Assessment & Plan Note - Gemini Chung MD - 07/22/2024 11:27 AM EDT Associated Problem(s): Precordial pain EKG done today shows his baseline A-fib no ST changes I ordered today in office aspirin 325 mg stat and nitroglycerin 0.4 mg under the tongue Patient will be sent to the emergency room via EMS documented in this encounter Plan of Treatment Not on file documented as of this encounter Procedures Procedure Name Priority Date/Time Associated Diagnosis Comments ECG 12-LEAD Routine 07/22/2024 11:21 AM EDT Precordial pain documented in this encounter Results * ECG 12 lead (07/22/2024 11:21 AM EDT) Narrative Gemini Chavez MD - 07/22/2024 11:21 AM EDT Atrial fibrillation with normal ventricular response, rate [address] abnormalities us Gemini Chung MD ECG ORDERABLES Final Result documented in this encounter Visit Diagnoses Diagnosis Precordial pain- Primary Class 1 obesity due to excess calories with serious comorbidity and body mass index (BMI) of 33.0 to 33.9 in adult documented in this encounter Administered Medications Active Administered Medications - up to 3 most recent administrations Medication Order MAR Action Action Date Dose Rate Site nitroglycerin (Nitrostat) SL tablet 0.4 mg 0.4 mg, Sublingual, Every 5 min PRN, chest pain, Starting on Tiff 07/22/24 at 1119, May administer up to 3 doses per episode.Indications:Precordial pain Given 07/22/2024 11:45 AM EDT 0.4 mg Inactive Administered Medications - up to 3 most recent administrations Medication Order MAR Action Action Date Dose Rate Site aspirin chewable tablet 325 mg 325 mg, Oral, Once, On Tiff 07/22/24 at 1130, For 1 doseIndications:Precordial pain Given 07/22/2024 11:30 AM EDT 324 mg documented in this encounter Additional Health Concerns Assessment Noted Time PHQ-9 Depression Total Score: 0 09/03/19 9:55 AM EDT documented as of this encounter Care Teams Junior Software Engineer Relationship Specialty Start Date End Date Gemini Chavez MD [address] [place] [address] PCP - General Family Medicine 01/21/18 [employer] 03/28/24 documented as of this encounter
--- OUTSIDE RECORDS SUMMARY | 2024-07-22 16:46 | XMS_ITS | Encounter Summary ---
Author Organization [employer] Address [address] [facility] 7t [place] [address] Care Team Providers Care Nude Model Name Role Phone Gemini Chavez MD Primary Care Provide r Encounter Details Date Type Department Care Team (Late st Contact Info) Description 07/22/2024 Orders Only GENERIC EXTERNAL DATA DEPARTMENT Provider, Generic External Data Social History Tobacco Use Types Packs/Day Years [...] TROPONIN I Routine 07/22/2024 3:38 PM EDT documented in this encounter Results * High Sensitivity Troponin I (07/22/2024 3:38 PM EDT) TROPONIN I HIGH SENSITIVITY 3.8 <3.5 - 35.0 ng/L [facility] Comment:The [place] high sens itivity Troponin-I results should beused in conjunction with other diagnostic information suchas ECG, clinical observations and information, and patientsymptoms to aid in the diagnosis of [place]. 07/22/2024 3:38 PM EDT 07/22/2024 3:43 PM EDT us Generic External Data Provider LAB BLOOD ORDERAB LES Final Result [facility] [address] [place] [address] [phone] documented in this encounter Visit Diagnoses Not on filedocumented in this encounter Additional Health Concerns Assessment Noted Time PHQ-9 Depression Total Score: 0 09/03/19 24 9:55 AM EDT documented as of this encounter Care Teams Nude Model Relationship Specialty Start Date End Date Gemini Chavez MD [address] [place] [address] PCP - General Family Medicine 01/21/18 [employer] 03/28/24 documented as of this encounter
--- NOTE | 2024-07-22 16:58 | PC.NURSE ---
patient states that he has no chest pain since nitro paste patch applied. patient sitting up in bed, resp even and unlabored. patient family at bedside.
[2024-07-22] MEDS: Acetaminophen 325 MG TABLET 975 MG PO (18:43)
--- NOTE | 2024-07-22 19:43 | PC.NURSE ---
pt lying in bed in semi fowlers, calm-appearing. at bedside. pt denies CP and SOB. staff senior electronics technician used. pt requested food. ADDICTION PROFESSIONAL Sonu stewart. next trop drawn and sent. call blackman in reach
[2024-07-22 20:06] LABS: Troponin-I High Sensitivity 3.6 ng/L (<3.5-35.0)
== END 2024-07-22 20:58 | disposition home or self-care (01) ==
PROVIDERS: Nurse Practitioner Family; Emergency Provider Emergency Medicine; PCP Internal Medicine
DX: R07.89 Other chest pain (principal); R06.02 Shortness of breath; Z79.899 Other long term (current) drug therapy; Z03.818 Encounter for observation for suspected exposure to other biological agents ruled out
CPT/HCPCS: 0241U; 36415; 71045; 80053; 83880; 84484; 85025; 93005; 99283; 99285

== ENCOUNTER → 2024-07-22 12:20 | Outpatient (BNV) | payer OTHER, SELFPAY | PROVIDERS: PCP Internal Medicine; Visit Provider Internal Medicine | DX: I48.91 Unspecified atrial fibrillation (principal) | CPT/HCPCS: 93010 ==

== ENCOUNTER → 2024-07-22 12:20 | Outpatient (BNV) | payer OTHER, SELFPAY | PROVIDERS: Visit Provider Radiology Diagnostic Radiology | DX: R07.9 Chest pain, unspecified (principal); R06.02 Shortness of breath | CPT/HCPCS: 71045 ==

== ENCOUNTER 2024-08-10 06:37 | Outpatient (REF) | payer OTHER, SELFPAY ==
--- OUTSIDE RECORDS SUMMARY | 2024-08-10 06:40 | XMS_ITS | Encounter Summary ---
Author Organization [facility] Address [address] [facility] 7t [place] [address] Care Team Providers Care Bottom Filler Name Role Phone Gemini Chavez MD Primary Care Provide r Encounter Details Date Type Department Care Team (Late st Contact Info) Description 01/22/2023 Orders Only [facility] MEDICINE [address] [place] [phone] Gemini Chavez MD [address] [place], [place] [phone] COPD with asthma (CMS/HCC) Social History Tobacco [...] Care Team (Late st Contact Info) Description 08/23/2024 10:30 AM EDT Clinical Support [facility] [address] [place] [phone] documented as of this encounter Visit Diagnoses Diagnosis COPD with asthma (CMS/HCC) documented in this encounter Additional Health Concerns Assessment Noted Time PHQ-9 Depression Total Score: 6 05/16/19 23 1:42 PM EST documented as of this encounter Care Teams Bottom Filler Relationship Specialty Start Date End Date Gemini Chavez MD [address] [place] [address] PCP - General Family Medicine 01/21/18 [employer] 03/28/24 documented as of this encounter
--- OUTSIDE RECORDS SUMMARY | 2024-08-10 06:40 | XMS_ITS | Encounter Summary ---
Author Organization [facility] [facility] Address [address] [facility] 7t [place] [address] Care Team Providers Care Curb Machine Operator Name Role Phone Gemini Chavez MD Primary Care Provide r Reason for Visit * Reason Comments Med Change Request Encounter Details Date Type Department Care Team (Late st Contact Info) Description 01/08/2023 Refill [facility] MEDICINE [address] [place], [place] [phone] Marsha Menjivar MD [address] [place], [place] [phone] Chronic obstructive pulmonary disease, unspecified COPD type [...] generated for Nebulizer signed and faxed to [facility]. documented in this encounter Plan of Treatment Upcoming Encounters Date Type Department Care Team (Late st Contact Info) Description 08/23/2024 10:30 AM EDT Clinical Support [facility] MEDICINE [address] [place] [address] documented as of this encounter Visit Diagnoses Diagnosis Chronic obstructive pulmonary disease, unspecified COPD type (CMS/HCC) documented in this encounter Additional Health Concerns Assessment Noted Time PHQ-9 Depression Total Score: 6 05/16/19 23 1:42 PM EST documented as of this encounter Care Teams Curb Machine Operator Relationship Specialty Start Date End Date Gemini Chavez MD [address] [place] [address] PCP - General Family Medicine 01/21/18 [employer] 03/28/24 documented as of this encounter
--- OUTSIDE RECORDS SUMMARY | 2024-08-10 06:40 | XMS_ITS | Encounter Summary ---
Author Organization [employer] Address [address] [facility] 7t [place] [address] Care Team Providers Care Nurse Companion Name Role Phone Gemini Chavez MD Primary Care Provide r Reason for Visit * Reason Comments Med Refill Encounter Details Date Type Department Care Team ([facility] st Contact Info) Description 03/03/2024 Refill [facility] [address] [place], [place] [phone] Gemini Chavez MD [address] [place], [place] [phone] Social History Tobacco Use Types Packs/Day Years [...] Description 08/23/2024 10:30 AM EDT Clinical Support [facility] [address] [place] [address] documented as of this encounter Visit Diagnoses Not on filedocumented in this encounter Additional Health Concerns Assessment Noted Time PHQ-9 Depression Total Score: 0 09/03/19 9:55 AM EDT documented as of this encounter Care Teams Nurse Companion Relationship Specialty Start Date End Date Gemini Chavez MD [address] [place] [address] PCP - General Family Medicine 01/21/18 [employer] 03/28/24 documented as of this encounter
--- OUTSIDE RECORDS SUMMARY | 2024-08-10 06:40 | XMS_ITS | Encounter Summary ---
Author Organization [employer] Address [address] [facility] 7t [place] [address] Care Team Providers Care Production Line Technician Name Role Phone Gemini Chavez MD Primary Care Provide r Reason for Visit * Reason Comments Med Refill Encounter Details Date Type Department Care Team ([facility] st Contact Info) Description 05/14/2024 Refill [facility] [address] [place], [place] [phone] Gemini Chavez MD [address] [place], [place] [phone] Class 1 obesity due to excess calories [...] Description 08/23/2024 10:30 AM EDT Clinical Support [facility] [address] [place] [address] documented as of this encounter Visit Diagnoses Diagnosis Class 1 obesity due to excess calories with serious comorbidity and body mass index (BMI) of 33.0 to 33.9 in adult documented in this encounter Additional Health Concerns Assessment Noted Time PHQ-9 Depression Total Score: 0 09/03/19 9:55 AM EDT documented as of this encounter Care Teams Production Line Technician Relationship Specialty Start Date End Date Gemini Chavez MD [address] [place] [address] PCP - General Family Medicine 01/21/18 [employer] 03/28/24 documented as of this encounter
--- OUTSIDE RECORDS SUMMARY | 2024-08-10 06:40 | XMS_ITS | Encounter Summary ---
Author Organization [facility] Address [address] [facility] 7t [place] [address] Care Team Providers Care Teamsite Developer Name Role Phone Gemini Chavez MD Primary Care Provide r Reason for Visit * Reason Comments Med Refill Encounter Details Date Type Department Care Team (Late st Contact Info) Description 09/08/2022 Refill [facility] [address] [place], [place] [phone] Umer Sears MD [address] [place], [place] [phone] Seasonal allergies Social History Tobacco Use Types [...] Description 08/23/2024 10:30 AM EDT Clinical Support [facility] [address] [place], [place] [phone] documented as of this encounter Visit Diagnoses Diagnosis Seasonal allergies Allergic rhinitis, cause unspecified documented in this encounter Additional Health Concerns Assessment Noted Time PHQ-9 Depression Total Score: 6 05/16/19 23 1:42 PM EST documented as of this encounter Care Teams Teamsite Developer Relationship Specialty Start Date End Date Gemini Chavez MD [address] [place] [address] PCP - General Family Medicine 01/21/18 [employer] 03/28/24 documented as of this encounter
--- OUTSIDE RECORDS SUMMARY | 2024-08-10 06:40 | XMS_ITS | Encounter Summary ---
Author Organization [employer] [facility] Address [address] [facility] 7[address] [place] [address] Care Team Providers Care Ring Maker Name Role Phone Gemini Chavez MD Primary Care Provide r Reason for Visit * Reason Comments Med Refill Encounter Details Date Type Department Care Team (Late st Contact Info) Description 06/21/2022 Refill [facility] [address] [place], [place] [phone] Marsha Menjivar MD [address] [place], [place] [phone] Chronic systolic heart failure (CMS/HCC) Social History [...] Description 08/23/2024 10:30 AM EDT Clinical Support [facility] [address] [place], [place] [phone] documented as of this encounter Visit Diagnoses Diagnosis Chronic systolic heart failure (CMS/HCC) Chronic systolic heart failure documented in this encounter Additional Health Concerns Assessment Noted Time PHQ-9 Depression Total Score: 6 05/16/19 23 1:42 PM EST documented as of this encounter Care Teams Ring Maker Relationship Specialty Start Date End Date Gemini Chavez MD [address] [place] [address] PCP - General Family Medicine 01/21/18 [employer] 03/28/24 documented as of this encounter
--- OUTSIDE RECORDS SUMMARY | 2024-08-10 06:40 | XMS_ITS ---
Author Organization [facility] Address [address] [place] [address] Care Team Providers Care Endodontic Assistant Name Role Phone Phillip Sousa, Gemini Primary Care Provider Larry Angeles Jr Unavailable Katherine FORTE, Cipriano Unavailable Unavailable REASON FOR VISIT dysphagia Problems Problem Type SNOMED Code ICD Code Onset Dates Problem Status W/U Status Risk Notes Problem Dysphagia (01564405) Dysphagia (R13.10) Active confirmed Encounters Encounter Location Date Provider Diagnosis [facility] Outpatient [address] [place], [place] [phone] 04/01/2023 Larry Carnes Jr Dysphagia R13.10 and Abn findings-GI tract R93.3 Assessments Encounter Date Diagnosis (ICD Code) Assessment Notes Treatment Notes Treatment Clinical Notes Section Notes 04/01/2023 Dysphagia (ICD-10 - R13.10) 04/01/2023 Abn findings-GI tract (ICD-10 - R93.3) Plan Of Treatment No Information Progress Notes * BEN DAILYIODOB: 1955 (68 yo M)Acc No.[id number]:04/01/2023 EGD/MAC Patient:?KOBE DAILY Provider:?Larry Carnes MD :1955???Age:67 Y???Sex:Male Jose Manuel e:04/01/2023 Address:[address] [place], [place] [id number] Pcp:Gemini Fisher M.D. Subjective: * Chief Complaints: * ???1. Dysphagia. * Medical History:? Objective: * Vitals:? Assessment: * Assessment: 1.?Dysphagia - R13.10 (Prima ry)???2.?Abn findings-GI tract - R93.3??? Plan: * Treatment: * Procedure Codes:?62512 UPPER GI ENDOSCOPY, BIOPSY * * The named appointment provid er may or may not be the originator of this progress note, and it is not deemed complete until electronically signed by the appointment provider. Sign off status: Pending * Provider:?Larry Carnes MD Date:?1 06/01/2022 Generated for Dutch rosales/Aylin/eTransmitting on:?08/10/2024 06:40 AM EDT
--- OUTSIDE RECORDS SUMMARY | 2024-08-10 06:40 | XMS_ITS | Encounter Summary ---
Author Organization [employer] Address [address] [facility] 7t [place] [address] Care Team Providers Care Food Storeroom Clerk Name Role Phone Gemini Chavez MD Primary Care Provide r Reason for Visit * Reason Onset Date Comments Nurse Triage 03/26/2023 Encounter Details Date Type Department Care Team ([facility] st Contact Info) Description 03/26/2023 Telephone [facility] [address] [place], [place] [phone] Gemini Chavez MD [address] [place] [address] Nurse Triage Social History Tobacco Use Types [...] t he electric, gas, oil or water [employer] threatened to shut off services in your [...] 03/26/2023 11:47 AM EST Triage call [place] [id number] Pt reports ingrown toenail great toe on left foot for 3 days now. Pt reports it is painful and causes some limping when ambulating. Pt denies redness, drainage. Pt requests a referral to clinical rn liaison which was very helpful last time this happened. Pt is advised will send this request to PCP and nursing team for follow up and Pt agreed. Pt declined to come to [facility] only wants clinical rn liaison to cut this toenail. Protocol Used: Information [...] accepted this outcome Please contact pt at [phone] (statement distribution clerk needed) documented in this encounter Plan of Treatment Upcoming Encounters Date Type Department Care Team ([facility] st Contact Info) Description 08/23/2024 10:30 AM EDT Clinical Support [address] [address] documented as of this encounter Visit Diagnoses Not on filedocumented in this encounter Additional Health Concerns Assessment Noted Time PHQ-9 Depression Total Score: 6 05/16/19 23 1:42 PM EST documented as of this encounter Care Teams Food Storeroom Clerk Relationship Specialty Start Date End Date Gemini Chavez MD [address] [place] [address] PCP - General Family Medicine 01/21/18 [employer] 03/28/24 documented as of this encounter
--- OUTSIDE RECORDS SUMMARY | 2024-08-10 06:40 | XMS_ITS | Encounter Summary ---
Author Organization [employer] Address [address] [facility] 7t [place] [address] Care Team Providers Care Post Doc Fellowship Name Role Phone Gemini Chavez MD Primary Care Provide r Reason for Visit * Reason Onset Date Comments Prior Authorization 06/10/2024 Encounter Details Date Type Department Care Team ([facility] st Contact Info) Description 06/10/2024 Telephone [facility] [address] [place], [place] [phone] Gemini Chavez MD [address] [place] [address] Prior Authorization Social History Tobacco Use Types [...] is required on PA. Contact pt at [phone] (english) * Telephone Encounter - Rohit Cruz - 06/10/2024 9:00 AM EST Tc from pt requesting a PA for Tirzepatide-Weight Management (Zepbound) 2.5 MG/0.5ML solution auto-injector because pt stated that he received a letter stating that PA got denied. Contact pt: [phone] (Serbian) documented in this encounter Plan of Treatment Upcoming Encounters Date Type Department Care Team (Late st Contact Info) Description 08/23/2024 10:30 AM EDT Clinical Support [facility] [address] [place] [address] documented as of this encounter Visit Diagnoses Not on filedocumented in this encounter Additional Health Concerns Assessment Noted Time PHQ-9 Depression Total Score: 0 09/03/19 9:55 AM EDT documented as of this encounter Care Teams Post Doc Fellowship Relationship Specialty Start Date End Date Gemini Chavez MD [address] [place] [address] PCP - General Family Medicine 01/21/18 [employer] 03/28/24 documented as of this encounter
--- OUTSIDE RECORDS SUMMARY | 2024-08-10 06:40 | XMS_ITS | Patient Health Record ---
Author Organization [facility] Address [address] [place] [address] Care Team Providers Care Hoop Punch Operator Helper Name Role Phone Gemini Fisher M.D. Primary Care Provider Larry Angeles Jr Unavailable [phone] Katherine FORTE, Cipriano Unavailable Unavailable Allergies No Known Allergies Reason For Referral No Information Medications Medication SIG (Take, Route, Frequency, Duration) Notes Start Date End Date Status Creon [id number] UNIT TOME 2 C PSULAS POR V [...] Status W/U Status Risk Notes Problem Dysphagia (08296943) Dysphagia (R13.10) Active confirmed Problem 40344470 Dysphagia, unspecified type (R13.10) Active confirmed Problem 688346407 Abnormal barium swallow (R93.3) Active confirmed Problem 407514747 Gastroesophageal reflux disease, unspecified whether esophagitis present (K21.9) Active confirmed Problem 449125376 Presbyesophagus (K22.89) Active confirmed Plan Of Treatment Future Test Test Name Order Date UPPER GI ENDOSCOPY 03/13/2023 Insurance Providers Payer Name Payer Address Payer Phone Subscriber Number Group Number Insured Name Patient Relationship to Insured Coverage Start Date Coverage End Date [facility] [address] Attn Claims CLIFF [place] [id number] KOBE DAILY Self - patient is the insured Medical (General) History Medical History History ICD Code CE/COPD hypertension Fatty liver pulmonary nodule Elevated BMI Atrial fibrillation Hypothyroidism Gastroesophageal reflux disease/dysphagi a Surgical History Surgery Date(Month/Year) Cataract surgery Umbilical hernia repair Tonsillectomy
--- OUTSIDE RECORDS SUMMARY | 2024-08-10 06:40 | XMS_ITS | Data Portability ---
Author Organization [employer], [place] [employer] Address [address] [place] [address] Care Team Providers Care Rate Analyst Name Role Phone TALIB MARTINEZZEDWIN RONALDO Primary Care Provider [phone] HIM CCA OTHER [facility] OTHER [phone] Assessment Encounter Date Assessment Date Assessment LastModified [...] assessment and plan as documented by the tool keeper. I provided real time medical direction for this encounter and was immediately available to provide additional phone based assistance as needed. History as noted by tool keeper. Pt with history of afib on apixaban, [...] be transported via 911 ambulance to the [facility] and I give a pt expect to the ED investigative shopper as well. [email or web address] Not available 03/20/2024 18:19:28 04/21/2024 04/21/2024 I provided real -time medical direction via phone for this encounter and was available for additional phone-based assistance as needed. I have reviewed and agree with the Assessment and Plan as documented by the Tire Curer. Patient given the opportunity to ask questions. [...] pressure. No change in functional status. Per tool keeper on the scene, vital signs are stable [...] Assessment and Plan as documented by the Tire Curer. We discussed the diagnostic uncertainty of home [...] to call 911- verbalized understanding of instruction [email or web address] Not available 04/27/2024 20:25:46 Plan of Treatment Reminders Order Date Submit Date Provider Last Modified By Organization Details Last Modified Time Details Appointments None recorded. Lab rapid SARS CoV 2 Ag, QL IA, respiratory specimen 2023 024 [email or web address] 0 [facility], [address] [place] [address], [phone], 4 20:24:15 rapid flu (A+B) 2023 024 [email or web address] 0 [facility], [address] [place] [address], [id number], 4 20:24:15 BMP, serum or plasma 2023 024 [email or web address] 0 [facility], [address] [place] [address], [id number], 4 20:24:15 rapid flu (A+B) 2023 024 [email or web address] [facility], [address] [place] [address], [address], 4 10:38:31 rapid SARS CoV 2 Ag, QL IA, respiratory specimen 2023 024 [email or web address] Main - [facility], [address] [place] [address], [address], 4 10:38:31 Referral None recorded. Procedures None recorded. Surgeries None recorded. Imaging electrocard iogram 2023 024 [email or web address] 0 Main - [facility], [address] [place] [address], [address], 4 20:24:15 electrocard iogram 2023 024 [email or web address] Main - [facility], [address] [place] [address], [address], 4 18:36:07 electrocard iogram 2023 024 [email or web address] Main - [facility], [address] [place] [address], [address], 4 14:50:34 Medication Orders fluticasone propionate 50 mcg/actuati on nasal spray,suspe nsion 2023 024 [id number], [address] [place], [address], 4 12:56:56 Saline Nasal 0.65 % spray aerosol 2023 024 [id number], [address] [place], [address], 4 12:56:56 amoxicillin 500 mg capsule 2023 024 [id number], [address] [place], [address], 4 12:56:55 sodium chloride 0.9 % intravenous solution 2023 024 [email or web address] [id number], [address] [place], [address], 4 20:24:15 prednisone 20 mg tablet 2023 024 WERNER [facility], [address] [place], [address], 4 10:38:33 prednisone 20 mg tablet 2023 024 [email or web address] [facility], [address] [place], [address], 4 10:38:31 Patient TargetsNo targets recorded. Patient Instructions Encounter Date Encounter Id Patient Instructions Last Modified By Organization Details Last Modified Time 03/31/2024 [id number] orthostatic vitals* [email or web address] Not available 03/31/2024 18:21:41 Reason for Referral None Reported. Results Created Date Observation Date Name Description Value Unit Range Abnormal Flag Note LastModifiedBy Organization Detail LastModifiedTime 04/21/20 24 04/21/2024 rapid SARS CoV 2 Ag, QL IA, respi rator y speci men rapid SARS CoV 2 Ag, QL IA, respiratory specimen negati ve Not Available [facility] [address] [place] [address], [address], 04/21/2024 10:37:26 04/21/20 24 04/21/2024 rapid flu (A+B) Flu negati ve Not Available [facility] [address] [place] [address], [address], 04/21/2024 10:37:25 04/27/20 24 04/27/2024 rapid flu (A+B) Flu negati ve Not Available [facility] [address] [place] [address], [address], 04/27/2024 12:57:09 04/27/20 24 04/27/2024 rapid SARS CoV 2 Ag, QL IA, respi rator y speci men rapid SARS CoV 2 Ag, QL IA, respiratory specimen negati ve Not Available [facility] - [facility] [address] [place] [address], [address], 04/27/2024 12:57:08 03/20/20 24 03/20/2024 elect rocar diogr am No observ ation record ed. [facility] [address] [place] [address], [address], 03/20/2024 14:50:32 03/31/20 24 03/31/2024 elect rocar diogr am No observ ation record ed. [facility] [address] [place] [address], [id number], 03/31/2024 18:36:06 04/27/20 24 04/27/2024 elect rocar diogr am No observ ation record ed. [email or web address] [facility] [address] [place] [address], [id number], 04/27/2024 20:22:51 Result Notes None recorded. Procedures Surgical History None recorded. Imaging Results Imaging Date Name Status LastModified by Organization Details LastModified Time 03/20/2024 electrocardiogram completed [address], [address], 03/20/2024 14:50:32 03/31/2024 [facility] [address] [place] [address], [address], 03/31/2024 18:36:06 04/27/2024 electrocardiogram completed [email or web address] [facility] [address] [place] [address], [address], 04/27/2024 20:22:51 Procedure Notes None recorded. Medical [...] /min 162.56 cm 96 % 96 % 680513. 16 g 16 /min 121 mm[Hg] 87 mm[Hg] Not Available [employer] 4 21:44:22 Date Recorded Heart rate Respiratory rate Body temperature Oxygen saturation Oxygen saturation in Arterial blood by Pulse oximetry Systolic blood pressure Diastolic blood pressure Systolic blood pressure Diastolic blood pressure Provider Name and Address Organization Details Last Updated DateTime 4 105 /min 16 /min 98.7 [degF] 95 % 95 % 114 mm[Hg] 81 mm[Hg] 85 mm[Hg] 51 mm[Hg] Not Available [employer] 4 14:41:24 Date Recorded Respiratory rate Heart rate Body weight Body temperature Oxygen saturation Oxygen saturation in Arterial blood by Pulse oximetry Heart rate Respiratory rate Systolic blood pressure Diastolic blood pressure Systolic blood pressure Diastolic blood pressure Provider Name and Address Organization Details Last Updated DateTime 4 16 /min 74 /min 13398.4 4 g 98.3 [degF] 98 % 98 % 84 /min 20 /min 114 mm[Hg] 84 mm[Hg] 120 mm[Hg] 86 mm[Hg] Not Available [employer] 4 18:31:50 Date Recorded Oxygen saturation Oxygen [...] Updated DateTime 04/27/2024 162.56 cm 33.5 kg/m2 31092.51 g Davina Garner MD [address] [place] [address],[address], [place], [address], [facility] ASSURED INFORMATION SECURITY 04/27/2024 20:03:55 Social History None recorded. Functional Status None recorded. Mental Status None recorded. Family History Nothing Reported. Medical History No medical history recorded. Past Encounters Encounter ID Performer Location Encounter Start Date Encounter Closed Date Diagnosis/Indication Diagnosis SNOMED-CT Code Diagnosis ICD10 Code Diagnosis Note [id number] Allison Newman MD [address] [address] 04/11/2022 18:32:13 04/15/2022 15:46:34 Cough 71640188 R05.9 [id number] Davina Garner MD [address] [address] 01/07/2023 14:14:00 01/07/2023 22:56:53 Essential hypertension 06127089 I10 Patient exam is benign. Patient reassured/ his blood pressure is normal when taken with the medic cough. The medic measured the patient's blood pressure with his 5-year-old home machine and got 135/112 thus it is the patient's machine that is giving erroneous readingsNo te sent to [facility] to reach out to the care director to assist the patient in obtaining a new home blood pressure monitor. Advised to continue all his regular medication s and follow-up with his PCP as needed [id number] Davina [facility] [address] [place] [id number] 01/08/2023 15:21:28 01/08/2023 23:59:09 Viral upper respiratory tract infection 849054716 J06.9 And viral pharyngiti s-advised to gargle [...] pcp. Sandra Bloom MD [facility] - [facility] [address] [place] [phone] 06/23/2023 18:11:30 06/24/2023 10:34:59 Dizziness 696315992 R42 [id number] Marlyn Casas MD Main - [facility] [address] [place] [id number] 08/05/2023 10:57:00 08/05/2023 16:00:41 Asthma 829667370 J45.909 Exacerbati on of moderate persistent asthma 691449511 J45.41 [id number] Eric Israel MD Main - [facility] [address] [place] [id number] 08/13/2023 12:51:38 08/13/2023 20:11:05 Acute exacerbation of chronic obstructive pulmonary disease 064936741 J44.1 The patient has a flare-up of his COPD. He will continue his current treatments . [id number] Eric Israel MD Main - [facility] [address] [place] [phone] 11/14/2023 12:02:23 11/14/2023 21:31:15 Vertigo 232261923 R42 This 67-year-ol d male with a past history of vertigo developed mild vertigo today. He has taken Meclizine in the past with good relief. I ordered Meclizine 50 mg now. He will follow-up with his PCP if the vertigo persists. The patient agreed with this plan. [id number] Thomas Lyon MD Main - [facility] [address] [place] [phone] 11/27/2023 21:44:10 11/28/2023 10:18:17 Headache 29470761 R51.9 [id number] Jeancarlos Gonsales MD Main - [facility] [address] [place] [phone] 03/20/2024 14:41:13 03/22/2024 13:41:42 Orthostatic hypotension 77623670 I95.1 Atrial fibrillation 4943 6004 I48.91 [id number] RENU MARIE MD Main - [facility] [address] [place] [id number] 03/31/2024 18:19:08 04/01/2024 11:10:35 Dizziness 239838568 R42 Evaluation in the field was performed by my tool keeper colleague, as noted above, I provided real-time [...] , palpitatio ns or any other concerns. [id number] Marlyn Casas MD [facility] - [facility] [address] [place] [id number] 04/21/2024 10:14:37 04/22/2024 00:16:20 Asthma-chronic obstructive pulmonary disease overlap syndrome [id number] 0558143 J44.9 Viral uppe r respiratory tract infection 372247639 J06.9 [id number] Davina Garner MD Main - [facility] [address] [place] [id number] 04/27/2024 11:24:18 04/27/2024 22:19:18 Headache 24963015 R51.9 w/ dizziness- possibly sinusitisS lightly less [...] Young Member ID Guarantor Name 11/27/2023 1 [facility] - DOS ON OR AFTER 2022 - DUAL ELIGIBLE - RESIDENTIAL OPTIONS AND ONE CARE (MEDICARE REPLACEMENT/AD VANTAGE - HMO) Min Arauz [id number] Min Arauz 03/20/2024 1 [facility] [employer] - DOS ON OR AFTER 2022 - DUAL ELIGIBLE - RESIDENTIAL OPTIONS AND ONE CARE (MEDICARE REPLACEMENT/AD VANTAGE - HMO) Min Arauz [id number] Min Arauz 03/31/2024 1 [facility] [employer] - DOS ON OR AFTER 2022 - DUAL ELIGIBLE - RESIDENTIAL OPTIONS AND ONE CARE (MEDICARE REPLACEMENT/AD VANTAGE - HMO) Min Arauz [id number] Min Arauz 04/21/2024 1 [facility] [employer] - DOS ON OR AFTER 2022 - DUAL ELIGIBLE - RESIDENTIAL OPTIONS AND ONE CARE (MEDICARE REPLACEMENT/AD VANTAGE - HMO) Min Arauz [id number] Min Arauz 04/27/2024 1 [facility] - DOS ON OR AFTER 2022 - DUAL ELIGIBLE - RESIDENTIAL OPTIONS AND ONE CARE (MEDICARE REPLACEMENT/AD VANTAGE - HMO) Min Arazu [id number] Min Arauz Notes Date Note Type Note Provider Name and Address Organization Details Recorded Time 11/27/2023 text/html [facility] Nurse Triage Notes (Padmini Payne): Reason For Request: high BP Chief Complaints: Hypertension PMH: COPD/Asthma, Hypertension, CHF, Heart Disease, Diabetes Allergies: No Known Comments: Referral taken via End Touching Machine Operator [id number]. Member with elevated BP, 153/112 and 156/120, took his HS medications. Member with headache and dizziness, denies chest pain, mild sob, but is not new, denies any arm or jaw pain, no numbness, tingling or weakness anywhere. Member would like to be evaluated. ...................... ...................... ...................... ...................... ...................... ...................... ......... Tire Curer Note From Pradeep Rainey: Smart[employer] visit for [...] afib, no other significant findings. Consulted with [facility] Dr. Lyon who advised pt should take another 500mg tylenol. Reviewed red flags for ED. Patient education provided. ...................... ...................... ...................... ...................... ...................... ...................... ......... Disposition: Fulfilled Thomas Lyon MD [address] [place] [address],[address], [place], [address], [employer] 11/27/2023 23:06:36 03/20/2024 text/html This was a super vised home visit with tool keeper Rivas Thapa. [facility] Nurse Triage Notes (Dov Lainez): Reason For Request: Patient was dizzy, fell, and hurt himself, possibly bp problems - Chief Complaints: Dizziness PMH: COPD/Asthma, Hypertension, Congestive Heart Failure, Coronary Artery Disease, Gastroesophageal Reflux Disease (GERD) Comments: Purse Seiner verified the Pt.'s name//address and phone number. [...] Concerns expressed - PT declines ER treatment. Tire Curer Organization Information for Rivas Thapa Legal Name: [facility] Transportation Address: [address] [place] [address], [place] [address], [employer] Strand: Byron Mauro MD CLIA No.: [id number] Tire Curer POC Test Results from Rivas Thapa EKG (14:32:21) EKG test performed. Attachments uploaded as part of this test result can be found under Documents section. ...................... ...................... ...................... ...................... ...................... ...................... ......... Tire Curer Note From Rivas Thapa: This 68-year-old male [...] No lower extremity edema. EKG uploaded, a-fib. [facility] contacted and agrees that an emergency department evaluation is necessary. Patient agreeable to ambulance transport to [facility] emergency department. 911 initiated and verbal SBAR given to [facility] ALS crew. ...................... ...................... ...................... ...................... ...................... ...................... ......... [facility] Consulted: Jeancarlos Gonsales ...................... ...................... ...................... ...................... ...................... ...................... ......... Disposition: Fulfilled Jeancarlos Gonsales MD [address] [place] [address],[address], [place], [address], [employer] 03/20/2024 18:19:45 03/31/2024 text/html [facility] Nurse Triage [...] ...................... ...................... ...................... ...................... ...................... ...................... ......... Tire Curer Note From Chuy Finn: Pt had no [...] and rhythm/A-fib. Pt stable. Pt taking eliquis. [facility] Dylon contacted and advised pt of signs indicating the ER, Drink plenty of fluids, Monitor symptoms. Allergies Discussed. ...................... ...................... ...................... ...................... ...................... ...................... ......... [facility] Consulted: Renu Marie ...................... ...................... ...................... ...................... ...................... ...................... ......... Disposition: Syed MARIE MD [address] [facility] [place] [facility],[address], [place], [address], [employer] - [employer]ED INFORMATION SECURITY 03/31/2024 23:40:49 04/27/2024 text/html [facility] Nurse Triage Notes (Padmini Payne - [...] morning. Patient would like to be re-evaluated. Tire Curer Organization Information for Cheikh Mejia Legal Name: [employer]? Address: [address] [place] [address], [employer] Strand: Parish Ruiz MD CLIA No.: [id number] Tire Curer POC Test Results from Cheikh Mejia EKG [...] ...................... ...................... ...................... ...................... ...................... ...................... ......... Tire Curer Note From Cheikh Mejia: Dispatched for the scheduled visit for the male patient with a headache. pt. was found alert and oriented x3 sitting in bed c/o of a severe headache from yesterday with dizziness upon sitting up. pt. noted he had been seen by [facility] on the but could not remember his [...] in all extremities -dcaptbtls -stroke scale findings. [facility] contacted and ordered COVID and FLU swab, BMP and orthostatic vital signs while sitting and standing in addition. 21 gauge butterfly LAC performed for BMP. all results forwarded and [facility] then ordered a 12 lead ekg and IV with 750 ml Normal Saline. IV established 18 gauge left forearm-normal saline IV drip 750 ml. all results forwarded to [facility] with changed after normal saline. [facility] noted she would send amoxicillin and Fluticasone and saline nasal spray to the patients pharmacy for possible nasal infection. red flag warnings discussed and noted to call 911 if headache or dizziness worsened any slurred speech, weakness, facial droop or syncope occurred. all times are approx.report completed by rob mejia. [facility] Lab Orders: rapid SARS CoV 2 Ag, QL IA, respiratory specimen: Performed ...................... ...................... ...................... ...................... ...................... ...................... ......... [facility] Consulted: Davina Garner ...................... ...................... ...................... ...................... [...] Kidney Disease, Obesity. Davina Garner MD [address] [facility] [place] [facility],[address], [place], [address], [facility] - [employer] [facility] 04/27/2024 20:33:33
--- OUTSIDE RECORDS SUMMARY | 2024-08-10 06:40 | XMS_ITS | Encounter Summary ---
Author Organization [employer] Address [address] [facility] [address] [place] [address] Care Team Providers Care Cell Coverer Name Role Phone Gemini Chavez MD Primary Care Provide r Reason for Visit * Reason Comments Med Change Request Encounter Details Date Type Department Care Team ([facility] st Contact Info) Description 02/04/2023 Refill [facility] MED & PEDS [address] [place], [place] [phone] Marsha Menjivar MD [address] [place] [address] Primary hypertension Social History Tobacco Use Types [...] - 03/03/2023 11:46 AM EDT Sent to [employer] * Telephone Encounter - Jacqueline [...] Description 08/23/2024 10:30 AM EDT Clinical Support [facility] MEDICINE [address] [place] [address] documented as of this encounter Visit Diagnoses Diagnosis Primary hypertension Unspecified essential hypertension documented in this encounter Additional Health Concerns Assessment Noted Time PHQ-9 Depression Total Score: 6 05/16/19 23 1:42 PM EST documented as of this encounter Care Teams Cell Coverer Relationship Specialty Start Date End Date Gemini Chavez MD [address] [place] [address] PCP - General Family Medicine 01/21/18 [employer] 03/28/24 documented as of this encounter
--- OUTSIDE RECORDS SUMMARY | 2024-08-10 06:40 | XMS_ITS | Encounter Summary ---
Author Organization [employer] [facility] Address [address] [facility] [address]t [place] [address] Care Team Providers Care Vice Investigator Name Role Phone Gemini Chavez MD Primary Care Provide r Reason for Visit * Reason Comments Med Refill Encounter Details Date Type Department Care Team (Late st Contact Info) Description 10/07/2022 Refill [facility] MEDICINE [address] [place], [place] [phone] Gemini Chavez MD [address] [place], [place] [phone] Chronic systolic heart failure (CMS/HCC) Social History [...] Description 08/23/2024 10:30 AM EDT Clinical Support [facility] MEDICINE [address] [place] [address] [phone] documented as of this encounter Visit Diagnoses Diagnosis Chronic systolic heart failure (CMS/HCC) Chronic systolic heart failure documented in this encounter Additional Health Concerns Assessment Noted Time PHQ-9 Depression Total Score: 6 05/16/19 23 1:42 PM EST documented as of this encounter Care Teams Vice Investigator Relationship Specialty Start Date End Date Gemini Chavez MD [address] [place] [address] PCP - General Family Medicine 01/21/18 [employer] 03/28/24 documented as of this encounter
--- OUTSIDE RECORDS SUMMARY | 2024-08-10 06:40 | XMS_ITS | Encounter Summary ---
Author Organization [employer] Address [address] [facility] [address] [place] [address] Care Team Providers Care Cut Off Machine Operator Name Role Phone Gemini Chavez MD Primary Care Provide r Reason for Visit * Reason Onset Date Comments Appointment Request 08/21/2022 Encounter Details Date Type Department Care Team ([facility] st Contact Info) Description 08/21/2022 Telephone [facility] MEDICINE [address] [place], [place] [phone] Gemini Chavez MD [address] [place] [address] Appointment Request Social History Tobacco Use Types [...] an family emergency. Please contact pt at [phone] documented in this encounter Plan of Treatment Upcoming Encounters Date Type Department Care Team (Late st Contact Info) Description 08/23/2024 10:30 AM EDT Clinical Support [facility] MEDICINE [address] [place] [address] documented as of this encounter Visit Diagnoses Not on filedocumented in this encounter Additional Health Concerns Assessment Noted Time PHQ-9 Depression Total Score: 6 05/16/19 23 1:42 PM EST documented as of this encounter Care Teams Cut Off Machine Operator Relationship Specialty Start Date End Date Gemini Chavez MD [address] [place] [address] PCP - General Family Medicine 01/21/18 [employer] 03/28/24 documented as of this encounter
--- OUTSIDE RECORDS SUMMARY | 2024-08-10 06:40 | XMS_ITS | Encounter Summary ---
Author Organization [employer] Address [address] [facility] [address] [place] [address] Care Team Providers Care Registered Travel Nurse Name Role Phone Gemini Chavez MD Primary Care Provide r Encounter Details Date Type Department Care Team (Late st Contact Info) Description 07/10/2023 Orders Only [facility] MEDICINE [address] [place], [place] [phone] Gemini Chavez MD [address] [place], [place] [phone] Mixed stress and urge urinary incontinence (Primary [...] the past 12 months, has t he [employer], [employer] oil or water company threatened to shut [...] Description 08/23/2024 10:30 AM EDT Clinical Support [facility] MEDICINE [address] [place] [address] documented as of this encounter Visit Diagnoses Diagnosis Mixed stress and urge urinary incontinence- Primary Mixed incontinence urge and stress (male)(female) documented in this encounter Additional Health Concerns Assessment Noted Time PHQ-9 Depression Total Score: 6 05/16/19 23 1:42 PM EST documented as of this encounter Care Teams Registered Travel Nurse Relationship Specialty Start Date End Date Gemini Chavez MD [address] [place] [id number] PCP - General Family Medicine 01/21/18 [employer] 03/28/24 documented as of this encounter
--- OUTSIDE RECORDS SUMMARY | 2024-08-10 06:40 | XMS_ITS | Encounter Summary ---
Author Organization [facility] Address [address] [facility] [address] [place] [address] Care Team Providers Care Director Of Market Analysis Name Role Phone Gemini Chavez MD Primary Care Provide r Reason for Visit * Reason Onset Date Comments Referral 03/14/2023 Encounter Details Date Type Department Care Team ([facility] st Contact Info) Description 03/14/2023 Telephone [facility] [address] [place], [place] [phone] Gemini Chavez MD [address] [place] [address] Referral Social History Tobacco Use Types Packs/Day [...] Description 08/23/2024 10:30 AM EDT Clinical Support [facility] [address] [place] [address] documented as of this encounter Visit Diagnoses Not on filedocumented in this encounter Additional Health Concerns Assessment Noted Time PHQ-9 Depression Total Score: 6 05/16/19 23 1:42 PM EST documented as of this encounter Care Teams Director Of Market Analysis Relationship Specialty Start Date End Date Gemini Chavez MD [address] [place] [address] PCP - General Family Medicine 01/21/18 [employer] 03/28/24 documented as of this encounter
--- OUTSIDE RECORDS SUMMARY | 2024-08-10 06:40 | XMS_ITS | Encounter Summary ---
Author Organization [employer] Address [address] [facility] [address] [place] [address] Care Team Providers Care Movie Editor Name Role Phone Gemini Chavez MD Primary Care Provide r Reason for Visit * Reason Comments Med Refill Encounter Details Date Type Department Care Team ([facility] st Contact Info) Description 02/12/2024 Refill [facility] [address] [place], [place] [phone] Gemini Chavez MD [address] [place] [address] Prediabetes Social History Tobacco Use Types Packs/Day [...] Description 08/23/2024 10:30 AM EDT Clinical Support [facility] [address] [place] [address] documented as of this encounter Visit Diagnoses Diagnosis Prediabetes Other abnormal glucose documented in this encounter Additional Health Concerns Assessment Noted Time PHQ-9 Depression Total Score: 0 09/03/19 9:55 AM EDT documented as of this encounter Care Teams Movie Editor Relationship Specialty Start Date End Date Gemini Chavez MD [address] [place] [address] PCP - General Family Medicine 01/21/18 [employer] 03/28/24 documented as of this encounter
--- OUTSIDE RECORDS SUMMARY | 2024-08-10 06:40 | XMS_ITS | Clinical Summary ---
Author Organization [facility] Address [address] [place] [address] 7t [place] [address] Care Team Providers Care Foundry Finisher Name Role Phone Gemini Chavez MD Primary [...] ANAPHYLAXIS AND CALL 911 2022 Active Creon 22089-836444 units capsule delayed-release particles capsule Take 2 capsules by mouth 4 times daily. ADMINISTER WITH MEALS AND/OR SNACKS 2022 Active Fluticasone-Salmetero l 250-50 MCG/ACT aerosol powder Inhale 1 puff 2 times daily. 2023 Active Umeclidinium [place] (Incruse Ellipta) 62.5 MCG/ACT aerosol powderIndications:Chr onic [...] ONCE A WEEK 2 mL 2023 Active cholecalciferol (Vitamin D-3) 25 MCG (1000 UT) tabletIndications:Pre diabetes Take 1 tablet (25 mcg) by mouth Once per day. 60 tablet 1 2023 Active Vitamin E 45 MG (100 UNIT) capsuleIndications:Ac quired hypothyroidism TOME 1 CAPSULA POR VIA ORAL CADA MANANA 30 capsule 11 2023 Active meclizine (Antivert) 25 MG tabletIndications:Josh tigo TOME FAUSTINA TABLETA (25 MG) POR VIA ORAL CUANDO SEA NECESARIO KINJAL VECES AL СЕРГЕЙ (MORNING, NOON AND AT BEDTIME) PARA EL MAREO 30 tablet 2023 Active Semaglutide-Weight Management (Wegovy) 2.4 MG/0.75ML solution auto-injectorIndicati ons:Class 1 obesity due to excess calories with serious comorbidity and body mass index (BMI) of 33.0 to 33.9 in adult INJECT 2.4 ML UNDER THE SKIN EVERY 7 (SEVEN) DAYS. 2 mL 2023 Active albuterol (2.5 MG/3ML) [...] 2024 Active amLODIPine (Norvasc) 2.5 MG tabletIndications:Zaina areli hypertension Take 2 tablets (5 mg) by [...] time per week. 2 mL 2024 Active apixaban (Eliquis) 5 MG tablet TAKE 1 TABLET BY MOUTH TWICE A DAY 180 tablet 2024 Active metoprolol succinate XL (Toprol-XL) 200 MG 24 hr tablet TAKE 1 TABLET BY MOUTH EVERY DAY 90 tablet 1 2024 Active hydroCHLOROthiazide 12.5 MG tabletIndications:Hyp ertension, essential TAKE 1 TABLET BY MOUTH EVERY DAY 90 tablet 1 2024 Active levothyroxine (Synthroid, Levoxyl) 100 MCG tabletIndications:Acq uired hypothyroidism TOME 1 TABLETA POR VIA ORAL TODOS [place] 90 tablet 1 2024 Active Diclofenac Sodium 1 % gel APPLY 2 GRAMS TOPICALLY FOUR TIMES DAILY 300 g 2 2024 Active metoprolol succinate XL (Toprol-XL) 200 MG 24 hr tablet TAKE 1 TABLET BY MOUTH EVERY DAY 90 tablet 1 08/04 Discontinued hydroCHLOROthiazide 12.5 MG tabletIndications:Hyp ertension, essential TAKE 1 TABLET BY MOUTH EVERY DAY 90 tablet 1 08/04 Discontinued apixaban (Eliquis) 5 MG tablet TAKE 1 TABLET BY MOUTH TWICE A DAY 180 tablet 07/28 Discontinued levothyroxine (Synthroid, Levoxyl) 100 MCG tabletIndications:Acq uired hypothyroidism TAKE 1 TABLET BY MOUTH EVERY DAY 90 tablet 1 08/06 Discontinued Diclofenac Sodium 1 % gel APPLY 2 GRAMS TOPICALLY FOUR TIMES DAILY 300 g 2 08/09 Discontinued( Reorder (will not trigger notification to Pharmacy)) Tirzepatide-Weight Management (Zepbound) 2.5 MG/0.5ML solution auto-injectorIndicati ons:Class 2 severe obesity due to excess calories with serious comorbidity and body mass index (BMI) of 38.0 to 38.9 in adult (CMS/HCC) Inject 0.5 mL (2.5 mg) under the [...] TSH and contact him back Patient declines red cross worker appointment Prediabetes 05/19/2023 Assessment & Plan (04/20/2024 [...] will like to be re-evalauted for more PRECISE WINDER hours Preop examination 02/13/2023 Assessment & Plan [...] ideally next day of procedure--I called his box repairer-Dr Ely's # [phone] office and spoke w CLIFF rodriguez with [...] Encounters Date Type Department Care Team Description 08/09/2024 9:00 AM EDT Office Visit [facility] [address] [place], [place] [phone] Rivas Hurst MD Benign paroxysmal positional vertigo, unspecified laterality (Primary Dx); Chronic left shoulder pain; Hypertension, unspecified type 08/06/2024 Refill [facility] [address] [place], [place] [phone] Gemini Chavez MD Acquired hypothyroidism 08/04/2024 Refill [facility] [address] [place], [place] [phone] Gemini Chavez MD Hypertension, essential 07/29/[address] [address] Gemini Chavez MD ER Follow-up 07/28/[address] [address] Gemini Chavez MD Prior Authorization ( [place] Request: Zepbound) 07/26/[address] [address] Gemini Chavez MD 07/22/2024 11:00 AM EDT Office Visit [address] [address] Gemini Chavez MD Precordial pain (Primary Dx); Class 1 obesity due to excess calories with serious comorbidity and body mass index (BMI) of 33.0 to 33.9 in adult 07/22/2024 Orders Only GENERIC EXTERNAL DATA DEPARTMENT Provider, Generic External Data 07/22/2024 Travel 07/15/2024 Refill [facility] [address] [address] Gemini Chavez MD 07/15/2024 Patient Outreach [address] [address] Gemini Chavez MD Pre-visit Planning ((Unable to reach for PVP screening, LVM)) 07/12/2024 11:00 AM EST Clinical Support [address] [address] Elyssa Barajas, RN Dietary counseling; Exercise counseling; Primary hypertension 07/12/2024 Travel 07/05/2024 9:00 AM EST Office Visit [facility] [address] [place] [address] [phone] Alexandra Knox MD Primary hypertension (Primary Dx); Elevated blood pressure reading 07/02/[address] [phone] Gemini Chavez MD Pure hypercholesterolemia 06/18/2024 Orders Only [facility] [address] [place] [address] Gemini Chavez MD 06/16/2024 Orders Only [facility] External Provider, [facility] 06/10/2024 Telephone [facility] [address] [place] [address] Gemini Chavez MD Prior Authorization 06/09/2024 Refill [facility] [address] [place] [address] Gemini Ochoa MD Primary hypertension 06/03/2024 Refill [facility] [address] [place], [place] [phone] Gemini Chavez MD 05/26/2024 Telephone [facility] [address] [place], [place] [phone] Gemini Chavez MD Prior Authorization ([facility] for Zepbound) 05/14/2024 Refill [facility] [address] [place], [place] [phone] Gemini Chavez MD Class 1 obesity due to excess calories with serious comorbidity and body mass index (BMI) of 33.0 to 33.9 in adult from Last 3 Months Immunizations Name Administration [...] Reading Time Taken Comments Blood Pressure 150/96 08/09/2024 9:05 AM EDT Pulse 85 08/09/2024 8:47 AM EDT Temperature 36.7 ??C (98 ??F) 08/09/2024 8:47 AM EDT Respiratory Rate 20 08/09/2024 8:47 AM EDT Oxygen Saturation 99% 08/09/2024 8:47 AM EDT Inhaled Oxygen Concentration - - Weight 96.3 kg (212 lb 3.2 oz) 08/09/2024 8:47 A M EDT Height 169.5 cm (5' 6.75 ) 08/09/2024 8:47 AM ED T Body Mass Index 33.48 08/09/2024 8:47 AM EDT Plan of Treatment Upcoming Encounters Date Type Department Care Team (Late st Contact Info) Description 08/23/2024 10:30 AM EDT Clinical Support [facility] [address] [place] [address] Health Maintenance Due Date Last Done Comments [...] 05/20/2023, 06/13/2022, Additional history exists Tobacco Screening 08/09/2025 08/09/2024 Lipid Panel 05/03/2029 05/03/2024, 01/0 01/2024, 12/13/2022, [...] Comments HIGH SENSITIVITY TROPONIN I Routine 07/22/2024 7:40 PM EDT HIGH SENSITIVITY TROPONIN I Routine 07/22/2024 3:38 [...] FUNCTION PANEL Routine 06/16/2024 9:16 AM EST PROTHROMBIN TIME-INR Routine 06/16/2024 9:16 AM EST CBC WITH AUTO DIFFERENTIAL Routine 06/16/2024 9:16 AM EST SARS COV2/INFLUENZA A/B AND RSV RNA QL NAAT Routine 06/16/2024 9:[address] CERVICAL SPINE WO CONTRAST Routine 06/16/2024 9:08 AM EST XR CHEST 1 VIEW Routine 06/16/2024 8:45 AM EST LIPID PANEL, STANDARD Routine 05/03/2024 8:15 AM EST Stage 3 chronic kidney disease, unspecified whether stage 3a or 3b CKD (CMS/HCC) Prediabetes POCT GLYCATED HEMOGLOBIN, TOTAL Routine 11/11/2023 11:12 AM EDT Prediabetes HEPATITIS C ANTIBODY REFLEX Routine 12/13/2022 8:21 AM EDT from Last 3 Months or Most Recently Relevant to Health Maintenance Results * High Sensitivity Troponin I (07/22/2024 7:40 PM EDT) Only the most recent of4 resultswithin the time period is included. TROPONIN I HIGH SENSITIVITY 3.6 <3.5 - 35.0 ng/L [facility] Comment:The Ham high sens itivity Troponin-I results should beused in conjunction with other diagnostic information suchas ECG, clinical observations and information, and patientsymptoms to aid in the diagnosis of AK. 07/22/2024 7:40 PM EDT 07/22/2024 7:42 PM EDT us Generic External Data Provider LAB BLOOD ORDERAB LES Final Result [facility] [address] [place] [phone] [phone] * ECG 12 lead (07/22/2024 11:21 [...] EST Narrative 06/16/2024 1:02 PM EST ? [facility] ?[address] ?[place] [address] ?XRay Report ? Signed ? Patient: Min Rees ?MR#: ?? [id number] ? : 1955 ?Acct:[id number] ? Age/Sex: 68 / M ?ADM Date: 06/16/24 ? Loc: HO.ED ? Attending Dr: ? Ordering Physician: Sarah Beth Quinonez ?? Date of Service: 06/16/24 ?? Procedure(s): XR shoulder LT min 2V ?? Accession Number(s): [id number] ? cc: Gemini Chavez MD; Quinonez,Sarah Beth PA ? EXAMINATION: ?? XR SHOULDER, LEFT ? [...] DD/ 1245 ? TD/TT: 06/16/24 1250 ? Clinical Assistant Professor: MSM ? Procedure Note Donguanakitoter, Image - 06/16/[address] [address] XRay Report Signed Patient: Min ReesMR#: [id number] : 6Acct:[id number] Age/Sex: 68 / MADM Date: 06/16/24 Loc: HO.ED Attending Dr: Ordering Physician: Sarah Beth Quinonez Date of Service: 06/16/24 Procedure(s): XR shoulder LT min 2V Accession Number(s): [id number] cc: Gemini Chavez MD; Sarah Beth Quinonez [...] 06/16/24 1259 DD/ 1245 TD/TT: 06/16/24 1250 Clinical Assistant Professor: MSM us [facility] External Provider IMG XR PROCEDURES Edited Result - Final * CT Head w/o Contrast (06/16/2024 9:18 AM EST) Anatomical Region Laterality Modality Head, Neck Computed Tomogra phy 06/16/2024 9:18 AM EST Narrative 06/16/2024 9:52 AM EST ? [facility] ?[address] ?[place], [place] [address] ? CT Scan Report ? Signed ? Patient: Min Rees ?MR#: ?? [id number] ? : 1955 ?Acct:[id number] ? Age/Sex: 68 / M ?ADM Date: 06/16/24 ? Loc: HO.ED ? Attending Dr: ? Ordering Physician: Ysabel Benton NP ?? Date of Service: 06/16/24 ?? Procedure(s): CT head/brain wo IV con ?? Accession Number(s): [id number] ? cc: Gemini Chavez MD; Ysabel Benton NP ? Report Number: ?? [id number]: Total DLP = ??793.00 mGy-cm ?? EXAMINATION: [...] MD in OV> ?06/16/24 0949 ? DD/ ? TD/TT: 06/16/24943 ? Clinical Assistant Professor: ? Procedure Note Jeancarlos Turcios - 06/16/[address] [place] [address] [address] Scan Report Signed Patient: Min ReesMR#: [id number] : 1955cct:[id number] Age/Sex: 68 / MADM Date: 06/16/24 Loc: HO.ED Attending Dr: Ordering Physician: Ysabel Benton NP Date of Service: 06/16/24 Procedure(s): CT head/brain wo IV con Accession Number(s): [id number] cc: Gemini Chavez MD; Ysabel Benton NP Report Number: [id number]: Total DLP = 793.00 mGy-cm EXAMINATION: CT [...] Doherty MD in OV> 06/16/24 0949 DD/ 0918 TD/TT: 06/16/24 0944 Clinical Assistant Professor: [facility] External Provider IMG CT PROCEDURES Edited Result - Final * SARS-CoV-2 RNA, Influenza A/B, and RSV RNA, Ql NAAT (06/16/2024 9:16 AM EST) Influenza A PCR NEGATIVE Negative [facility] Influenza B PCR NEGATIVE Negative [facility] Resp Syncy Virus RNA Qual PCR NEGATIVE Negative [facility] SARS COV2 PCR NEGATIVE Negative [facility] Comment:All test results mus t be [...] use by authorized laboratories.Testing performed on the [employer] GeneXpert utilizingreal-time RT-PCR.All SARS CoV2 and positive influenza A/B results arereported to [facility]. 06/16/2024 9:16 AM EST 06/16/2024 9:21 AM EST us Generic External Data Provider LAB MICROBIOLOGY - GENERAL ORDERABLES Final Result [facility] [address] [place] [phone] * (ABNORMAL) CBC auto differential (06/16/2024 9:16 AM EST) White Blood Count 6.8 4.8 - 10.8 X10*3/uL [facility] Red Blood Count 3.61(L) 4.60 - 5.80 X10*6/uL [facility] Hemoglobin 11.5(L) 14.0 - 18.0 g/dl [facility] Hematocrit 33.3(L) 42.0 - 52.0 % [facility] Mean Corpuscular Volume 92.2 80.0 - 98.0 fL [facility] Mean Corpuscular Hemoglobin 31.9 27.0 - 33.0 pg [facility] Mean Corpuscular HGB Conc 34.5 31.0 - 36.0 g/dl [facility] Red Cell Distribution Width 12.0 11.0 - 16.0 % [facility] Platelet Count 173 160 - 400 X10*3/uL [facility] Mean Platelet Volume 10.1 9.4 - 12.4 fL [facility] Neutrophils Percent Auto 73.8(H) 45 - 73 % [facility] Imm Gran Pct Auto 0.3 0.0 - 0.4 % [facility] Lymphocytes Percent Auto 14.9(L) 20 - 40 % [facility] Monocytes Percent Auto 10.3 2 - 11 % [facility] Eosinophils Percent Auto 0.4 0 - 4 % [facility] Basophils Percent Auto 0.3 0 - 2 % [facility] NRBC Pct Auto 0.0 0.0 - 0.2 /100WBC [facility] Neutrophils Absolute Auto 5.0 2.0 - 8.3 x10*3/uL [facility] Imm Gran Abs Auto 0.02 0.00 - 0.03 X10*3/uL [facility] Lymphocytes Absolute Auto 1.0(L) 1.2 - 4.9 X10*3/uL [facility] Monocytes Absolute Auto 0.7 0.1 - 1.2 X10*3/uL [facility] Eosinophils Absolute Auto 0.0 0.0 - 0.4 X10*3/uL [facility] Basophils Absolute Auto 0.0 0.0 - 0.2 X10*3/uL [facility] NRBC Abs Auto 0.000 0.0 - 0.012 X10*3/uL [facility] 06/16/2024 9:16 AM EST 06/16/2024 9:21 AM EST us Generic External Data Provider LAB BLOOD ORDERAB LES Final Result Performing Organization Address City/State/[facility] Co de Phone Number [facility] [address] [place] [phone] * (ABNORMAL) Prothrombin Time-INR (06/16/2024 9:16 AM EST) Prothrombin Time 15.5(H) 10.9 - 12.4 SEC [facility] INTERNATIONAL NORM RATIO 1.3(H) 0.9 - 1.1 [facility] Comment:INTERNATIONAL NORMAL IZED RATIO (INR) [...] Result Performing Organization Address City/[facility] Co de Phone Number [facility] [address] [place] [phone] * (ABNORMAL) B Type Natriuretic Peptide (BNP) (06/16/2024 9:16 AM EST) Pathologist [facility] B Type Natriuretic Peptide 238(H) <100 pg/mL [facility] Comment:For those patients w ho are being treated with Natrecor(nesiritide, recombinant BNP), BNP testing should beperformed at least two hours post treatment in order toensure that only endogenous levels of BNP are detected. 06/16/2024 9:16 AM EST 06/16/2024 9:21 AM EST us Generic External Data Provider LAB BLOOD ORDERAB LES Final Result Performing Organization Address [facility] Co de Phone Number [facility] [address] [place] [phone] * Lipase (06/16/2024 9:16 AM EST) Lipase 52 8 - 78 U/L [facility] 06/16/2024 9:16 AM EST 06/16/2024 9:21 AM EST us Generic External Data Provider LAB BLOOD ORDERAB LES Final Result Performing Organization Address [facility]/ZIP Co de Phone Number [facility] [address] [place] [phone] * Hepatic Function Panel (06/16/2024 9:16 AM EST) Bilirubin, Total 0.8 0.0 - 1.0 mg/dL [facility] Bilirubin, Direct 0.3 0.0 - 0.5 mg/dL [facility] Aspartate Amino Transferase 22 5 - 37 U/L [facility] Alanine Aminotransferase 18 0 - 40 U/L [facility] Total Protein 6.5 6.5 - 8.0 g/dL [facility] Albumin Level 3.8 3.5 - 5.0 g/dL [facility] Alkaline Phosphatase 43 39 - 117 U/L [facility] 06/16/2024 9:16 AM EST 06/16/2024 9:21 AM EST us Generic External Data Provider LAB BLOOD ORDERAB LES Final Result Performing Organization Address City/State/[facility] Co de Phone Number [facility] [address] [place] [phone] * (ABNORMAL) Basic Metabolic Panel (06/16/2024 9:16 AM EST) Pathologist [facility] Sodium 141 135 - 145 mmol/L [facility] Potassium 3.5 3.3 - 5.1 mmol/L [facility] Chloride 109(H) 96 - 108 mmol/L [facility] Carbon Dioxide 26 22 - 29 mmol/L [facility] Anion Gap 10(L) 12 - 20 [facility] Urea Nitrogen (BUN) 12 9 - 16 mg/dL [facility] Creatinine, Serum 1.10 0.5 - 1.4 mg/dL [facility] Creatinine Clr Calc Pharmacy 68.0 [facility] Comment:eGFR (calculated fro m the MDRD study equation) and eCrCl(calculated from the Cockcroft-Gault equation) are based ondifferent parameters and may not yield comparable results.If eCrCl result is absurd, please check patient'sheight/weight. Estimated Glomerular Filt Rate >60 [facility] Comment:Chronic Kidney Disea se: Estimated GFR < 60 mL/min/1.94k5Sfncxc Kidney Disease: Estimated GFR < 15 mL/min/1.73m2 Glucose 140(H) 60 - 115 mg/dL [facility] Calcium 8.7 8.4 - 10.2 mg/dL [facility] 06/16/2024 9:16 AM EST 06/16/2024 9:21 AM EST us Generic External Data Provider LAB BLOOD ORDERAB LES Final Result [facility] [address] [place] [address] [phone] * CT Cervical Spine w/o Contrast (06/16/2024 9:08 AM EST) Anatomical Region Laterality Modality Spine, C-spine Computed Tomogra phy 06/16/2024 9:08 AM EST Narrative 06/16/2024 9:58 AM EST ? [facility] ?[address] ?[place] [address] ? CT Scan Report ? Signed ? Patient: Min Rees ?MR#: ?? [id number] ? : 1955 ?Acct:[id number] ? Age/Sex: 68 / M ?ADM Date: 06/16/24 ? Loc: HO.ED ? Attending Dr: ? Ordering Physician: Ysabel Benton NP ?? Date of Service: 06/16/24 ?? Procedure(s): CT cervical spine wo IV con ?? Accession Number(s): [id number] ? cc: Gemini Chavez MD; Ysabel Benton NP ? Report Number: ?? [id number]: Total DLP = ??436.00 mGy-cm ?? EXAMINATION: [...] OV> ?06/16/24955 ? DD/ 7 ? TD/TT: 06/16/24943 ? Clinical Assistant Professor: ? Procedure Note Donotuseinterpreter, Image - 06/16/[address] [address] [address] Scan Report Signed Patient: Min ReesMR#: [id number] : 1955cct:[id number] Age/Sex: 68 / MADM Date: 06/16/24 Loc: HO.ED Attending Dr: Ordering Physician: Ysabel Benton NP Date of Service: 06/16/24 Procedure(s): CT cervical spine wo IV con Accession Number(s): [id number] cc: Gemini Chavez MD; Ysabel Benton NP Report Number: [id number]: Total DLP = 436.00 mGy-cm EXAMINATION: CT [...] Bladimir Doherty MD 06/16/2024 09:56 AM EST RP Dictated By: Bladimir Doherty MD Signed By: <Electronically signed by Bladimir Doherty MD in OV> 06/16/24 0956 DD/ TD/TT: 06/16/24 0944 Clinical Assistant Professor: [facility] External Provider IMG CT PROCEDURES Edited Result - Final * XR Chest 1 View (06/16/2024 8:45 AM EST) Anatomical Region Laterality Modality Chest Radiographic Claire ging 06/16/2024 8:45 AM EST Narrative 06/16/2024 9:05 AM EST ? [facility] ?[address] ?[place] [address] ?XRay Report ? Signed ? Patient: Davonte Cano,Min ?MR#: ?? [id number] ? : 1955 ?Acct:[id number] ? Age/Sex: 68 / M ?ADM Date: 02/05/25 ? Loc: HO.ED ? Attending Dr: ? Ordering Physician: Generic ED Physician ?? Date of Service: 06/16/24 ?? Procedure(s): XR chest 1V ?? Accession Number(s): [id number] ? cc: Gemini Chavez MD; Generic ED [...] DD/ 0845 ? TD/TT: 06/16/24 0850 ? Clinical Assistant Professor: ? Procedure Note Donotuseinterpreter, Image - 06/16/2024 [place] [address] XRay Report Signed Patient: Min ReesMR#: [id number] : 1955cct:[id number] Age/Sex: 68 / MADM Date: 06/16/24 Loc: HO.ED Attending Dr: Ordering Physician: Generic ED Physician Date of Service: 06/16/24 Procedure(s): XR chest 1V Accession Number(s): [id number] cc: Gemini Chavez MD; Generic ED Physician [...] Valentin Resendiz MD 06/16/2024 09:02 AM EST Dictated By: Valentin Guzman MD Signed By: <Electronically signed by Valentin Ruelas MDin OV> 06/16/24 0902 DD/ 0845 TD/TT: 06/16/24 0850 Clinical Assistant Professor: [facility] External Provider IMG XR PROCEDURES Edited Result - Final * (ABNORMAL) Lipid Panel, Standard (05/03/2024 8:15 AM EST) Triglycerides 230(H) <150 mg/dL [facility] Comment:Desirable Triglyceri de: less than 150 mg/dLBorderline High Triglyceride 150-199 mg/dLHigh Triglyceride: 200-499 mg/dLVery High Triglyceride: greater than or equal to 5OO mg/dL Cholesterol 118 <200 mg/dL [facility] Comment:Desirable Cholestero l: less than 200 mg/dLBorderline High Cholesterol: 200-239 mg/dLHigh Cholesterol: greater than 239 mg/dL LDL Cholesterol Calculated 41 <100 mg/dL [facility] Comment:Desirable LDL: less than 100 mg/dLNear Optimal/Above Optimal LDL: 110- 129 mg/dLBorderline High LDL: 130-159 mg/dLHigh LDL: 160-189 mg/dLVery High LDL: greater than or equal to 190 mg/dL HDL Cholesterol 31(L) >40 mg/dL [facility] Comment:Desirable HDL: great er than 40 mg/dL Note: This HDL assay may give artificially low results in patients with liver disease. Blood Venous blood specimen / Unknown 05/03/2024 8:15 AM EST 05/03/2024 11:40 AM EST us Gemini Chung MD LAB BLOOD ORDERABLES Final Result [facility] [address] [place] [phone] * (ABNORMAL) POCT HGB A1C (11/11/2023 11:12 AM EDT) Hemoglobin A1C 6.4(A) 4.0 - 6.0 % QC Media Lot # [id number] Lot# Expiration Date [id number] Blood 11/11/2023 11:1 2 AM EDT Gemini Chung MD POINT OF CARE TEST EN TER/EDIT ORDERABLES Final Result * Hepatitis C Antibody Reflex (12/13/2022 8:21 AM EDT) Hepatitis C Antibody Nonreactive Nonreactive [facility] Comment:Antibodies to HCV no t detected; does not exclude early acuteHCV infection. 12/13/2022 8:21 AM EDT 12/13/2022 11:08 AM EDT Gemini Chung MD LAB BLOOD ORDERABLES Final Result [facility] [address] [place] [phone] from Last 3 Months or Most Recently Relevant to Health Maintenance Insurance - [employer] Care Teams Foundry Finisher Relationship Specialty Start Date End Date Gemini Chavez MD [address] [place] [address] PCP - General Family Medicine 01/21/18 [employer] 03/28/24
--- OUTSIDE RECORDS SUMMARY | 2024-08-10 06:40 | XMS_ITS | Encounter Summary ---
Author Organization [employer] Address [address] [facility] [address] [place] [address] Care Team Providers Care Clinical Nurse Manager Name Role Phone Gemini Chavez MD Primary Care Provide r Encounter Details Date Type Department Care Team (Late st Contact Info) Description 02/19/2023 Abstract [facility] [address] [place], [place] [phone] Gemini Chavez MD [address] [place], [place] [phone] Social History Tobacco Use Types Packs/Day Years [...] Description 08/23/2024 10:30 AM EDT Clinical Support [facility] [address] [place] [address] documented as of this encounter Visit Diagnoses Not on filedocumented in this encounter Additional Health Concerns Assessment Noted Time PHQ-9 Depression Total Score: 6 05/16/19 23 1:42 PM EST documented as of this encounter Care Teams Clinical Nurse Manager Relationship Specialty Start Date End Date Gemini Chavez MD [address] [place] [address] PCP - General Family Medicine 01/21/18 [employer] 03/28/24 documented as of this encounter
--- OUTSIDE RECORDS SUMMARY | 2024-08-10 06:40 | XMS_ITS | Clinical Summary ---
Author Organization [facility] Address 175 [place] [address] Phone Care Team Providers Care Strapping Machine Operator Name Role Phone Gemini Chavez MD Primary Care Provide r Allergies No known active allergies Encounters Date Type Department Care Team Description 06/02/2024 1:45 PM EST Office Visit Orthopedic [facility] [address] [phone] Gallito Hancock DPM Ingrowing nail [...] Description 09/01/2024 1:00 PM EDT Office Visit [facility] [address] [phone] Gallito Hancock DPM [address] [address] Health Maintenance Due Date Last [...] patient's age to complete [place] [address] [employer] MEDICARE Member Subscriber Plan / Payer (Ef fective 2022-Present) Name:Min Rees Relation to Subscriber:Self Name:Min Rees Payer ID:[id number] Group ID:[id number] Type:Not on file Address: [place] [address] [place] [phone] Care Teams Strapping Machine Operator Relationship Specialty Start Date End Date Gemini Chavez MD [address] [place] [phone] PCP - General 04/24/23
--- OUTSIDE RECORDS SUMMARY | 2024-08-10 06:41 | XMS_ITS | Encounter Summary ---
Author Organization [facility] Address 75 [facility] 7t [place] [address] Care Team Providers Care Metal Mold Dresser Name Role Phone Gemini Chavez MD Primary Care Provide r Reason for Visit * Reason Comments Med Refill Encounter Details Date Type Department Care Team ([facility] st Contact Info) Description 08/06/2024 Refill [facility] 230 [place], [place] [phone] Gemini Chavez MD 230 [place], [place] [phone] Acquired hypothyroidism Social History Tobacco Use Types Packs/Day Years [...] Description 08/23/2024 10:30 AM EDT Clinical Support [facility] [address] [place] [address] documented as of this encounter Visit Diagnoses Diagnosis Acquired hypothyroidism Unspecified hypothyroidism documented in this encounter Additional Health Concerns Assessment Noted Time PHQ-9 Depression Total Score: 0 09/03/19 9:55 AM EDT documented as of this encounter Care Teams Metal Mold Dresser Relationship Specialty Start Date End Date Gemini Chavez MD [address] [place] [address] PCP - General Family Medicine 01/21/18 [place] 03/28/24 documented as of this encounter
--- OUTSIDE RECORDS SUMMARY | 2024-08-10 06:41 | XMS_ITS | Encounter Summary ---
Author Organization [employer] Address 75 [facility] 7t [place] [address] Care Team Providers Care Gameroom Technician Name Role Phone Gemini Chavez MD Primary Care Provide r Encounter Details Date Type Department Care Team (Late st Contact Info) Description 06/18/2024 Orders Only [facility] 230 [place], [place] [phone] Gemini Chavez MD [address] [place], [place] [phone] Social History Tobacco Use Types Packs/Day Years [...] Clinical Support [facility] [address] [place] [address] documented as of this encounter Visit Diagnoses Not on filedocumented in this encounter Additional Health Concerns Assessment Noted Time PHQ-9 Depression Total Score: 0 09/03/19 24 9:55 AM EDT documented as of this encounter Care Teams Gameroom Technician Relationship Specialty Start Date End Date Gemini Chavez MD [address] [place] [address] PCP - General Family Medicine 01/21/18 [employer] 03/28/24 documented as of this encounter
--- OUTSIDE RECORDS SUMMARY | 2024-08-10 06:41 | XMS_ITS ---
Author Organization [facility] Address [address] [place] [address] Care Team Providers Care Collection Systems Foreman Name Role Phone Gemini Fisher M.D. Primary Care Provider Abimael Carnes Jr, Larry Unavailable [phone] Katherine FORTE, Cipriano Unavailable Unavailable REASON FOR VISIT pathology Encounters Encounter Location Date Provider Diagnosis [facility] [address] [place] [address] 04/14/2023 Larry Carnes Jr Plan Of Treatment No Information Progress Notes * BEN DAILYIODOB: 1955 (67 yo M)Acc No.[id number]:04/14/2023 Patient:?KOBE DAILY :1955???Age:67 Y???Sex:Male Address:[address] [place] [address] [address] , [place], [address] * true * Date:? Generated for Byroni bobby/Aylin/eTransmitting on:?08/10/2024 06:40 AM EDT
--- OUTSIDE RECORDS SUMMARY | 2024-08-10 06:41 | XMS_ITS | Encounter Summary ---
Author Organization [employer] Address 75 [facility] 7t [place] [address] Care Team Providers Care Customer Supply Coordinator Name Role Phone Gemini Chavez MD Primary Care Provide r Encounter Details Date Type Department Care Team (Late st Contact Info) Description 05/10/2024 Orders Only [facility] [address] [place], [place] [phone] Gemini Chavez MD 230 [place], [place] [phone] Stage 3 chronic kidney disease, unspecified whether [...] Description 08/23/2024 10:30 AM EDT Clinical Support [facility] [address] [place] [address] documented as of this encounter Visit Diagnoses [...] documented as of this encounter Care Teams Customer Supply Coordinator Relationship Specialty Start Date End Date Gemini Chavez MD 230 [place] [address] PCP - General Family Medicine 01/21/18 [employer] [facility] 03/28/24 documented as of this encounter
--- OUTSIDE RECORDS SUMMARY | 2024-08-10 06:41 | XMS_ITS | Encounter Summary ---
Author Organization [employer] Address 75 [facility] 7t [place] [address] Care Team Providers Care Employment Coach Name Role Phone Gemini Chavez MD Primary Care Provide r Reason for Visit * Reason Comments Med Refill Encounter Details Date Type Department Care Team ([facility] st Contact Info) Description 05/08/2024 Refill [facility] 230 [place], [place] [phone] Gemini Chavez MD 230 [place], [place] [phone] Class 1 obesity due to excess calories [...] Description 08/23/2024 10:30 AM EDT Clinical Support [facility] [address] [place] [address] documented as of this encounter Visit Diagnoses Diagnosis Class 1 obesity due to excess calories with serious comorbidity and body mass index (BMI) of 33.0 to 33.9 in adult documented in this encounter Additional Health Concerns Assessment Noted Time PHQ-9 Depression Total Score: 0 09/03/19 9:55 AM EDT documented as of this encounter Care Teams Employment Coach Relationship Specialty Start Date End Date Gemini Chavez MD [address] [place] [address] PCP - General Family Medicine 01/21/18 [employer] 03/28/24 documented as of this encounter
--- OUTSIDE RECORDS SUMMARY | 2024-08-10 06:41 | XMS_ITS | Encounter Summary ---
Author Organization [employer] Address 75 [facility] 7t [place] [address] Care Team Providers Care Scraper Operator Name Role Phone Gemini Chavez MD Primary Care Provide r Reason for Visit * Reason Comments Med Refill Encounter Details Date Type Department Care Team ([facility] st Contact Info) Description 10/20/2023 Refill [facility] [address] [place], [place] [phone] Gemini Chavez MD 230 [place] [address] Seasonal allergies Social History Tobacco Use Types [...] Description 08/23/2024 10:30 AM EDT Clinical Support [facility] 230 [place] [address] documented as of this encounter Visit Diagnoses Diagnosis Seasonal allergies Allergic rhinitis, cause unspecified documented in this encounter Additional Health Concerns Assessment Noted Time PHQ-9 Depression Total Score: 0 09/03/19 9:55 AM EDT documented as of this encounter Care Teams Scraper Operator Relationship Specialty Start Date End Date Gemini Chavez MD [address] [place] [address] PCP - General Family Medicine 01/21/18 [employer] 03/28/24 documented as of this encounter
--- OUTSIDE RECORDS SUMMARY | 2024-08-10 06:41 | XMS_ITS ---
Author Organization [facility] Address [address] [place] [address] Care Team Providers Care Rails Developer Name Role Phone Gemini Fisher M.D. Primary [...] EACH DAY Inhalation for 30 Active Creon [id number] UNIT TOME 2 C PSULAS POR V [...] Problem Status W/U Status Risk Notes Problem 48660199 Dysphagia, unspecified type (R13.10) Active confirmed Problem 118123408 Abnormal barium swallow (R93.3) Active confirmed Problem 237156542 Gastroesophageal reflux disease, unspecified whether esophagitis present (K21.9) Active confirmed Problem 801258653 Presbyesophagus (K22.89) Active confirmed Vital Signs Temperature 97.8 degrees Fahrenheit 03/13/20 23 Blood pressure systolic 000 mm Hg 03/13/20 23 Blood pressure diastolic 00 mm Hg 023 Height 5 ft 5 in in 03/13/2023 Weight 221 lbs 03/13/2023 BMI 36.77 kg/m2 03/13/2023 Encounters Encounter Location Date Provider Diagnosis [facility] [address] [place] [phone] 03/13/2023 Larry Carnes Jr Dysphagia, unspecified type [...] * BEN DAILYIODOB: 1955 (67 yo M)Acc No.[id number]:03/13/2023 Progress Notes Patient:?KOBE DAILY Provider:?Larry Carnes MD :1955???Age:67 Y???Sex:Male Jose Manuel e:03/13/2023 Address:[address] [place], [place] [phone] Pcp:Gemini Fisher Subjective: * Chief Complaints: * [...] TODOS LOS D Oral , Taking Creon [id number] UNIT Capsule Delayed Release Particles TOME 2 [...] Carnes MD Date:?05/13/2022 Generated for Dutch rosales/Aylin/Poweritting on:?08/10/2024 06:40 AM EDT History and Physical Notes * [...]
--- OUTSIDE RECORDS SUMMARY | 2024-08-10 06:41 | XMS_ITS | Encounter Summary ---
Author Organization [employer] [facility] Address 75 [facility] 7t [place] [address] Care Team Providers Care Marketing Campaign Analyst Name Role Phone Gemini Chavez MD Primary Care Provide r Reason for Referral * Consultation (Routine) - Pending Review Specialty Diagnoses / Procedures Referred By Klever dozier Referred To Contact Physical Therapy Diagnoses Benign paroxysmal positional vertigo, unspecified laterality Rivas Hurst MD [address] [place] [address] Phone: tel: fax: Referral ID Status Reason Start Date Expiration Date Visits Requested Visits Authorized [id number] Pending Review Specialty Services Required 08/09/2024 08/09/2025 1 1 * Consultation (Urgent) - Pending Review Specialty Diagnoses / Procedures Referred By Klever dozier Referred To Contact Orthopaedic Surgery Diagnoses Chronic left shoulder pain Rivas Hurst MD [address] [place] [address] Phone: tel: fax: Referral ID Status Reason Start Date Expiration Date Visits Requested Visits Authorized [id number] Pending Review Specialty Services Required 08/09/2024 08/09/2025 1 1 Reason for Visit * Reason Comments Vertigo Arm Pain Encounter Details Date Type Department Care Team (Late st Contact Info) Description 08/09/2024 9:00 AM EDT Office Visit [facility] [address] [place] [address] Rivas Hurst MD [address] [place] [phone] Benign paroxysmal positional vertigo, unspecified laterality (Primary Dx); Chronic left shoulder pain; Hypertension, unspecified type Social History Tobacco Use Types Packs/Day Years [...] housing situation today? I have hubertjuarez doshi 10/31/[address] you [...] Mass Index 33.48 08/09/2024 8:47 AM EDT documented in this encounter Progress Notes * Rivas Hurst MD - 08/09/2024 9:00 AM EDT Subjective Patient ID: Min Cano is a 68 y.o. male. Hair Spinner: Jeremy MI Min had recurrence of vertigo 3 days ago, described as the room spinning, worse with movements of head. No fever, headache, n/v. States past history of similar vertigo , resolved with physical therapy at [facility]. He was prescribed meclizine in March,, but states he did not take it. CT scan of head at [facility] 06/16/2024 was read as No acute intracranial abnormality. Also has left shoulder pain that started 5 months ago that worsened when he fell 06/16/2024 and was evaluated to [facility] ED. Pain is worse with ROM of shoulder. X-rays of left shoulder done in the ED: IMPRESSION: Mild early degenerative changes left shoulder joint. No acute fracture or dislocation. Taking Tylenol with little relief. Left-handed. Lives alone. Not employed. Former smoker. Patient Active Problem List Diagnosis Aching headache Acquired hypothyroidism Anxiety state Atrial fibrillation (CMS/HCC) Chronic obstructive lung disease (CMS/HCC) Chronic systolic heart failure (CMS/HCC) Coronary atherosclerosis Dyspnea on exertion Hypertension History of alcohol abuse Mood disorder (CMS/HCC) Ptosis of eyelid Pure hypercholesterolemia Rupture of quadriceps tendon Simple renal cyst Sleep apnea Steatohepatitis Vascular insufficiency Pain in right toe(s) Vertigo Hoarseness, persistent Venous stasis Venous insufficiency of lower extremity Needle exposure COPD with asthma (CMS/HCC) Preop examination Polyarthralgia Weight gain Prediabetes Mixed stress and urge urinary incontinence Atrial fibrillation with RVR (CMS/HCC) Colon cancer screening Class 2 severe obesity due to excess calories with serious comorbidity and body mass index (BMI) of38.0 to 38.9 in adult ([facility]) Class 1 obesity due to excess calories with serious comorbidity and body mass index (BMI) of 33.0 to 33.9 in adult Benign prostatic hyperplasia (BPH) with straining on urination Stage 3 chronic kidney disease ([facility]) Precordial pain The following portions of the chart were reviewed this encounter and updated as appropriate: Tobacco Allergies Meds Problems Med Hx Surg Hx Fam Hx Review of Systems Constitutional: Negative for fever. Respiratory: Negative for shortness of breath. Cardiovascular: Negative for chest pain. Gastrointestinal: Negative for abdominal pain. Musculoskeletal: Positive for arthralgias. Skin: Negative for rash. Neurological: Positive for dizziness. Negative for headaches. Objective Physical Exam Constitutional: Appearance: Normal appearance. HENT: Nose: Nose normal. Eyes: Conjunctiva/sclera: Conjunctivae normal. Pupils: Pupils are equal, round, and reactive to light. Cardiovascular: Rate and Rhythm: Normal rate. Rhythm irregular. Heart sounds: No murmur heard. Pulmonary: Effort: Pulmonary effort is normal. Breath sounds: Normal breath sounds. Musculoskeletal: General: Normal range of motion. Cervical back: No tenderness. Comments: Left shoulder: Tenderness to palpation anteriorly. Markedly decreased range of motion secondary to pain with abduction limited to approximately 45 degrees by pain. Skin: Findings: No rash. Neurological: Mental Status: He is alert. Cranial Nerves: Cranial nerves 2-12 are intact. Sensory: Sensation is intact. Motor: Motor function is intact. Gait: Gait is intact. Psychiatric: Mood and Affect: Mood normal. Behavior: Behavior normal. Procedures Assessment/Plan Diagnoses and all orders for this visit: Benign paroxysmal positional vertigo, unspecified laterality Referred back for vestibular physical therapy. Chronic left shoulder pain Refilled diclofenac gel. Referred to orthopedic surgery Hypertension, unspecified type Has home BP monitor. States that home BP readings are always high. Reviewed BP parameters, given written BP log that includes BP parameters, to keep daily. RN BP visit scheduled, patient will bring BP log to appointment. Other orders - Diclofenac Sodium 1 % gel; APPLY 2 GRAMS TOPICALLY FOUR TIMES DAILY documented in this encounter Plan of Treatment Upcoming Encounters Date Type Department Care Team (Late st Contact Info) Description 08/23/2024 10:30 AM EDT Clinical Support [facility] [address] [place] [address] Scheduled Referrals Name Type Priority Associated Diagnoses Orde r Schedule Referral to Orthopaedic Surgery Outpatient Referral Urgent Chronic left shoulder pain Expected: 08/09/2024 (Approximate), Expires: 08/09/2025 Referral to Physical Therapy Outpatient Referral Routine Benign paroxysmal positional vertigo, unspecified laterality Expected: 08/09/2024 (Approximate), Expires: 08/09/2025 documented as of this encounter Visit Diagnoses Diagnosis Benign paroxysmal positional vertigo, unspecified laterality- Primary Chronic left shoulder pain Pain in joint, shoulder region Hypertension, unspecified type documented in this encounter Additional Health Concerns Assessment Noted Time PHQ-9 Depression Total Score: 0 09/03/19 9:55 AM EDT documented as of this encounter Care Teams Marketing Campaign Analyst Relationship Specialty Start Date End Date Gemini Chavez MD [address] [place] [address] PCP - General Family Medicine 01/21/18 [place] 03/28/24 documented as of this encounter
[2024-08-10 07:34] LABS: Anion Gap 11 (12-20); Blood Urea Nitrogen 15 mg/dL (9-16); Calcium 9.1 mg/dL (8.4-10.2); Carbon Dioxide 27 mmol/L (22-29); Chloride 110 mmol/L (96-108); Estimated Glomerular Filt Rate > 60; Glucose Random 100 mg/dL (60-115); Sodium 144 mmol/L (135-145)
[2024-08-10 07:59] LABS: Appearance Urine Clear; Color Urine Yellow; Glucose Urine UA Negative (Negative); Leukocyte Esterase Urine Negative (Negative); Nitrite Urine Negative (Negative); PH 5.5 (5.0-9.0); Specific Gravity - Urine 1.015 (1.005-1.025); Urine Blood Negative (Negative); Urine Ketones Trace mg/dL (Negative); Urine Protein Negative (Neg-Trace)
== END 2024-08-10 06:38 | disposition home or self-care (01) ==
LOC: HO.LAB 06:37
PROVIDERS: PCP Internal Medicine; Visit Provider Internal Medicine Hypertension Specialist
DX: N18.9 Chronic kidney disease, unspecified (principal)
CPT/HCPCS: 36415; 80048; 81003

== ENCOUNTER 2024-08-24 09:46 | Outpatient (AMB) | payer OTHER, SELFPAY ==
[2024-08-24 09:46] VITALS: BP 130/88; PULSE 90; O2SAT 96; BMI 34.3
--- NOTE | 2024-08-24 09:46 | HO.NEPHOV_ITS ---
Vital Signs 08/24/24 09:46 Height 5 ft 6 in Weight 212 lb 6 oz BMI 34.3 BP 130/88 Blood Pressure Location Rt brachial Position Sitting Pulse 90 Pulse Source Pulse Oximeter Pulse Oximetry (%) 96 Oxygen Delivery Method Room Air Intake Visit Reasons: CKD/ LVM Java J2Ee Software Engineer Required: Yes Java J2Ee Software Engineer Language: Mountain Bike Guide Services: Java J2Ee Software Engineer Present Java J2Ee Software Engineer Name: Inocencia([id number]) Allergies Iodinated Contrast Media [CONTRAST, IV] Allergy (Unknown, Verified 08/24/24 09:49) HIVES kiwi [KIWI] Allergy (Unknown, Verified 08/24/24 09:49) THROAT SWELLING Medication List - Last Reconciled 08/24/24 by Claudio Allan MD albuterol sulfate 3 mg inhalation QID PRN albuterol sulfate 90 mcg/actuation (Ventolin HFA) 2 puffs PO Q6H PRN apixaban 5 mg PO BID bisacodyl (Dulcolax (bisacodyl)) 10 mg (2 x 5 mg) PO BEDTIME 2 days cholecalciferol (vitamin D3) 50 mcg PO DAILY clonazepam 1 mg PO BID PRN diclofenac sodium 1% 2 grams topical QID epinephrine (EpiPen 2-Blaise) 0.3 mg (0.3 mL) IM Q4H PRN fluticasone propion-salmeterol 250-50 mcg/dose (Wixela Inhub) 1 ea PO BID furosemide 40 mg PO Q2D hydrochlorothiazide 12.5 mg PO DAILY hydroxyzine pamoate 25 mg PO BID PRN L.acidoph,saliva-B.bif-S.therm 175 mg (Acidophilus Probiotic Blend) 1 cap PO DAILY levothyroxine 100 mcg PO DAILY mtjoze-wattjvri-xinevlz 36,000-114,000- 180,000 unit (Creon) 2 caps PO QID lisinopril 40 mg PO DAILY meclizine 25 mg PO DAILY metformin 500 mg PO BID metoprolol succinate ER 200 mg PO DAILY pantoprazole 40 mg PO DAILY rosuvastatin 40 mg PO DAILY sennosides (Senna Laxative) 17.2 mg (2 x 8.6 mg) PO BEDTIME simethicone 180 mg PO QID 30 days sodium,potassium,mag sulfates 17.5-3.13-1.6 gram (Suprep Bowel Prep Kit) DILUTE; drink 1/2 at 6-8 pm and half at 11 PM- 1AM umeclidinium 62.5 mcg/actuation (Incruse Ellipta) 1 inh inhalation DAILY vitamin E (dl, acetate) 45 mg PO DAILY zolpidem 10 mg PO BEDTIME PRN HPI Comments Details: Min is a pleasant 68-year-old man with a history of obesity with hypertension has been referred for chronic kidney disease. Two months ago creatinine was 1.46. Subsequently this has improved. He is on Wegovy and he was lost about 40 lb. 05/25/24;Wegovy had been discontinued Lost 4 lbs since last visit 3 weeks ago 08/24/24: Overall doing well. Gained about 10 lbs During last visit, BP is relatively low, Lisinopril can be decreased by 50 % to 20 mg a day but he is still on 40 mg I beleive. He is not sure [facility] Medical History Pre-op examination Colon cancer screening Hoarseness Dysphagia Throat disorder Bronchitis CHF (congestive heart failure) Afib Allergic rhinitis COPD (chronic obstructive pulmonary disease) CE (obstructive sleep apnea) Obesity (BMI 30-39.9) Hypothyroid Anxiety Palpitation HTN (hypertension) Surgical History Hx of umbilical hernia repair History of surgery on arm Hx of eye surgery Hx of colonoscopy Hx of knee surgery Hx of tonsillectomy Family History Family/Other No problems noted. Social History Household Members: None Housing: Apartment Do you presently have visiting nurse or other home services: Yes Alcohol intake: former Patient Tobacco Use Status: Former Tobacco user Advance Directives Date on File: 08/11/23 service: No Physical Exam Vital Signs: Last Vital Signs Pulse 90 08/24/24 09:46 BP 130/88 08/24/24 09:46 Pulse Ox 96 08/24/24 09:46 Oxygen Delivery Method Room Air 08/24/24 09:46 BMI result Body Mass Index 34.3 Comfortable Neck supple no JVD. Lungs entry equal no rales. Heart S1-S2 heard no gallop or rub. Abdomen soft nontender. Neuro alert awake oriented. No asterixis. Extremities no edema. Results Reviewed Nephrology Results: Hgb 12.9 g/dl (14.0-18.0) L 07/22/24 WBC 9.9 X10*3/uL (4.8-10.8) 07/22/24 Plt Count 181 X10*3/uL (160-400) 07/22/24 Sodium 144 mmol/L (135-145) 08/10/24 Potassium 4.0 mmol/L (3.3-5.1) 08/10/24 Chloride 110 mmol/L (96-108) H 08/10/24 Carbon Dioxide 27 mmol/L (22-29) 08/10/24 BUN 15 mg/dL (9-16) 08/10/24 Creatinine 1.11 mg/dL (0.5-1.4) 08/10/24 Calcium 9.1 mg/dL (8.4-10.2) 08/10/24 Urine Protein Negative mg/dL (Neg-Trace) 08/10/24 Assessment & Plan Assessment & Plan (1) CKD (chronic kidney disease): Code(s): N18.9 - Chronic kidney disease, unspecified Category: Medical Plan 68-year-old man with the acute kidney injury superimposed on chronic kidney disease. Acute kidney injury has resolved. He was underlying chronic kidney disease most likely due to hypertensive nephrosclerosis. In 2022 abdominal ultrasonogram showed a nonobstructing calculi in the right kidney. No obstructive uropathy based on ultrasonogram in Apr 2024 Optimize blood pressure control. Avoid hypotension. Encouraged to bring all his meds during next visit May need to adjust diuretics. No need to stay on both Lasix and HCTZ Orders: Orders Basic Metabolic Panel 5 Months N18.9 - Chronic kidney disease, unspecified Coding Level of Care Code Est Pt Level 4 (38855) Diagnoses CKD (chronic kidney disease) N18.9
--- OUTSIDE RECORDS SUMMARY | 2024-08-24 11:09 | XMS_ITS | Encounter Summary ---
Author Organization [employer] Address 75 [facility] 7t [place] [address] Care Team Providers Care Polishing Machine Operator Helper Name Role Phone Gemini Chavez MD Primary Care Provide r Reason for Visit * Reason Onset Date Comments Appointment Request 08/21/2022 Encounter Details Date Type Department Care Team ([facility] st Contact Info) Description 08/21/2022 Telephone [facility] [address] [place], [place] [phone] Gemini Chavez MD [address] [place] [address] Appointment Request Social History Tobacco Use Types [...] an family emergency. Please contact pt at [phone] documented in this encounter Plan of Treatment Upcoming Encounters Date Type Department Care Team (Late st Contact Info) Description 08/26/2024 11:15 AM EDT Office Visit [facility] [address] [place] [address] Gemini Chavez MD [address] [place] [address] documented as of this encounter Visit Diagnoses Not on filedocumented in this encounter Additional Health Concerns Assessment Noted Time PHQ-9 Depression Total Score: 6 05/16/19 23 1:42 PM EST documented as of this encounter Care Teams Polishing Machine Operator Helper Relationship Specialty Start Date End Date Gemini Chavez MD [address] [place] [address] PCP - General Family Medicine 01/21/18 [employer] 03/28/24 documented as of this encounter
--- OUTSIDE RECORDS SUMMARY | 2024-08-24 11:09 | XMS_ITS | Encounter Summary ---
Author Organization [employer] [facility] Address [address] [facility] 7t [place] [address] Care Team Providers Care Diesel Pile Driver Operator Name Role Phone Gemini Chavez MD Primary Care Provide r Reason for Visit * Reason Comments Med Refill Encounter Details Date Type Department Care Team (Late st Contact Info) Description 06/21/2022 Refill [facility] [address] [place], [place] [phone] Marsha Menjivar MD [address] [place], [place] [phone] Chronic systolic heart failure (CMS/HCC) Social History [...] Description 08/26/2024 11:15 AM EDT Office Visit [facility] [address] [place] [address] Gemini Chavez MD [address] [place] [address] documented as of this encounter Visit Diagnoses Diagnosis Chronic systolic heart failure (CMS/HCC) Chronic systolic heart failure documented in this encounter Additional Health Concerns Assessment Noted Time PHQ-9 Depression Total Score: 6 05/16/19 23 1:42 PM EST documented as of this encounter Care Teams Diesel Pile Driver Operator Relationship Specialty Start Date End Date Gemini Chavez MD [address] [place] [address] PCP - General Family Medicine 01/21/18 [employer] 03/28/24 documented as of this encounter
--- OUTSIDE RECORDS SUMMARY | 2024-08-24 11:09 | XMS_ITS | Encounter Summary ---
Author Organization [employer] Address [address] [facility] 7t [place] [address] Care Team Providers Care Gray Mixing Operator Name Role Phone Gemini Chavez MD Primary Care Provide r Reason for Visit * Reason Comments Med Refill Encounter Details Date Type Department Care Team ([facility] st Contact Info) Description 05/14/2024 Refill [facility] [address] [place], [place] [phone] Gemini Chavez MD [address] [place], [place] [phone] Class 1 obesity due to excess calories [...] Description 08/26/2024 11:15 AM EDT Office Visit [facility] [address] [place] [address] Gemini Chavez MD [address] [place] [address] documented as of this encounter Visit Diagnoses Diagnosis Class 1 obesity due to excess calories with serious comorbidity and body mass index (BMI) of 33.0 to 33.9 in adult documented in this encounter Additional Health Concerns Assessment Noted Time PHQ-9 Depression Total Score: 0 09/03/19 9:55 AM EDT documented as of this encounter Care Teams Gray Mixing Operator Relationship Specialty Start Date End Date Gemini Chavez MD [address] [place] [address] PCP - General Family Medicine 01/21/18 [employer] 03/28/24 documented as of this encounter
--- OUTSIDE RECORDS SUMMARY | 2024-08-24 11:09 | XMS_ITS | Encounter Summary ---
Author Organization [employer] Address [address] [facility] 7t [place] [address] Care Team Providers Care Patient Insurance Clerk Name Role Phone Gemini Chavez MD Primary Care Provide r Reason for Visit * Reason Comments Med Refill Encounter Details Date Type Department Care Team ([facility] st Contact Info) Description 02/12/2024 Refill [facility] 230 [place], [place] [phone] Gemini Chavez MD [address] [place] [address] Prediabetes Social History Tobacco Use Types Packs/Day [...] Description 08/26/2024 11:15 AM EDT Office Visit [facility] [address] [place] [address] Gemini Chavez MD [address] [place] [address] documented as of this encounter Visit Diagnoses Diagnosis Prediabetes Other abnormal glucose documented in this encounter Additional Health Concerns Assessment Noted Time PHQ-9 Depression Total Score: 0 09/03/19 9:55 AM EDT documented as of this encounter Care Teams Patient Insurance Clerk Relationship Specialty Start Date End Date Gemini Chavez MD [address] [place] [address] PCP - General Family Medicine 01/21/18 [employer] 03/28/24 documented as of this encounter
--- OUTSIDE RECORDS SUMMARY | 2024-08-24 11:09 | XMS_ITS ---
Author Organization [facility] Address [address] [place] [address] Care Team Providers Care Garden Tractor Mechanic Name Role Phone Phillip Sousa, Gemini Primary Care Provider Larry [place] Jr Unavailable [phone] Katherine FORTE, Cipriano Unavailable Unavailable REASON FOR VISIT dysphagia Problems Problem Type SNOMED Code ICD Code Onset Dates Problem Status W/U Status Risk Notes Problem Dysphagia (55146132) Dysphagia (R13.10) Active confirmed Encounters Encounter Location Date Provider Diagnosis [facility] [address] [place], [place] [id number] 04/01/2023 Larry Carnes Jr Dysphagia R13.10 and Abn findings-GI tract R93.3 Assessments Encounter Date Diagnosis (ICD Code) Assessment Notes Treatment Notes Treatment Clinical Notes Section Notes 04/01/2023 Dysphagia (ICD-10 - R13.10) 04/01/2023 Abn findings-GI tract (ICD-10 - R93.3) Plan Of Treatment No Information Progress Notes * BEN DAILYIODOB: 1955 (68 yo M)Acc No.[id number]:04/01/2023 EGD/MAC Patient:?KOBE DAILY Provider:?Larry Carnes MD :1955???Age:67 Y???Sex:Male Jose Manuel e:04/01/2023 Address:[address] [place], [place] [id number] Pcp:Gemini Fisher M.D. Subjective: * Chief Complaints: * ???1. Dysphagia. * Medical History:? Objective: * Vitals:? Assessment: * Assessment: 1.?Dysphagia - R13.10 (Prima ry)???2.?Abn findings-GI tract - R93.3??? Plan: * Treatment: * Procedure Codes:?12059 UPPER GI ENDOSCOPY, BIOPSY * * The named appointment provid er may or may not be the originator of this progress note, and it is not deemed complete until electronically signed by the appointment provider. Sign off status: Pending * Provider:?Larry Carnes MD Date:?1 06/01/2022 Generated for Dutch rosales/Aylin/eTransmitting on:?08/24/2024 11:09 AM EDT
--- OUTSIDE RECORDS SUMMARY | 2024-08-24 11:09 | XMS_ITS | Encounter Summary ---
Author Organization [employer] [facility] Address [address] [facility] 7t [place] [address] Care Team Providers Care Fur Stretcher Name Role Phone Gemini Chavez MD Primary Care Provide r Reason for Visit * Reason Comments Med Refill Encounter Details Date Type Department Care Team (Late st Contact Info) Description 10/07/2022 Refill [facility] [address] [place] [phone] Gemini Chavez MD [address] [place], [place] [phone] Chronic systolic heart failure (CMS/HCC) Social History [...] Description 08/26/2024 11:15 AM EDT Office Visit [facility] [address] [place] [phone] Gemini Chavez MD [address] [place], [place] [phone] documented as of this encounter Visit Diagnoses Diagnosis Chronic systolic heart failure (CMS/HCC) Chronic systolic heart failure documented in this encounter Additional Health Concerns Assessment Noted Time PHQ-9 Depression Total Score: 6 05/16/19 23 1:42 PM EST documented as of this encounter Care Teams Fur Stretcher Relationship Specialty Start Date End Date Gemini Chavez MD [address] [place] [address] PCP - General Family Medicine 01/21/18 [employer] 03/28/24 documented as of this encounter
--- OUTSIDE RECORDS SUMMARY | 2024-08-24 11:09 | XMS_ITS | Encounter Summary ---
Author Organization [employer] Address [address] [facility] 7t [place] [address] Care Team Providers Care Word Processing Machine Operator Name Role Phone Gemini Chavez MD Primary Care Provide r Reason for Visit * Reason Onset Date Comments Prior Authorization 06/10/2024 Encounter Details Date Type Department Care Team ([facility] st Contact Info) Description 06/10/2024 Telephone [facility] [address] [place], [place] [phone] Gemini Chavez MD [address] [place] [address] Prior Authorization Social History Tobacco Use Types [...] is required on PA. Contact pt at [phone] (british) * Telephone Encounter - Rohit Cruz - 06/10/2024 9:00 AM EST Tc from pt requesting a PA for Tirzepatide-Weight Management (Zepbound) 2.5 MG/0.5ML solution auto-injector because pt stated that he received a letter stating that PA got denied. Contact pt: [phone] ([employer]) documented in this encounter Plan of Treatment Upcoming Encounters Date Type Department Care Team (Late st Contact Info) Description 08/26/2024 11:15 AM EDT Office Visit [facility] [address] [place], [place] [phone] Gemini Chavez MD [address] [place] [address] documented as of this encounter Visit Diagnoses Not on filedocumented in this encounter Additional Health Concerns Assessment Noted Time PHQ-9 Depression Total Score: 0 09/03/19 9:55 AM EDT documented as of this encounter Care Teams Word Processing Machine Operator Relationship Specialty Start Date End Date Gemini Chavez MD [address] [place] [address] PCP - General Family Medicine 01/21/18 [employer] 03/28/24 documented as of this encounter
--- OUTSIDE RECORDS SUMMARY | 2024-08-24 11:09 | XMS_ITS | Encounter Summary ---
Author Organization [facility] [facility] Address [address] [facility] 7t [place] [address] Care Team Providers Care State Fire Marshal Name Role Phone Gemini Chavez MD Primary Care Provide r Reason for Visit * Reason Comments Med Refill Encounter Details Date Type Department Care Team (Late st Contact Info) Description 09/08/2022 Refill [facility] [address] [place], [place] [phone] Umer Sears MD [address] [place], [place] [phone] Seasonal allergies Social History Tobacco Use Types [...] Description 08/26/2024 11:15 AM EDT Office Visit [facility] 230 [place], [place] [phone] Gemini Chavez MD [address] [place], [place] [phone] documented as of this encounter Visit Diagnoses Diagnosis Seasonal allergies Allergic rhinitis, cause unspecified documented in this encounter Additional Health Concerns Assessment Noted Time PHQ-9 Depression Total Score: 6 05/16/19 23 1:42 PM EST documented as of this encounter Care Teams State Fire Marshal Relationship Specialty Start Date End Date Gemini Chavez MD [address] [place] [address] PCP - General Family Medicine 01/21/18 [employer] 03/28/24 documented as of this encounter
--- OUTSIDE RECORDS SUMMARY | 2024-08-24 11:09 | XMS_ITS | Encounter Summary ---
Author Organization [employer] Address [address] [facility] 7t [place] [address] Care Team Providers Care Supervisor Garage Name Role Phone Gemini Chavez MD Primary Care Provide r Reason for Visit * Reason Comments Med Refill Encounter Details Date Type Department Care Team ([facility] st Contact Info) Description 02/12/2024 Refill [facility] [address] [place], [place] [phone] Gemini Chavez MD [address] [place] [address] Prediabetes Social History Tobacco Use Types Packs/Day [...] Description 08/26/2024 11:15 AM EDT Office Visit [facility] [address] [place] [address] Gemini Chavez MD [address] [place] [address] documented as of this encounter Visit Diagnoses Diagnosis Prediabetes Other abnormal glucose documented in this encounter Additional Health Concerns Assessment Noted Time PHQ-9 Depression Total Score: 0 09/03/19 9:55 AM EDT documented as of this encounter Care Teams Supervisor Garage Relationship Specialty Start Date End Date Gemini Chavez MD [address] [place] [address] PCP - General Family Medicine 01/21/18 [employer] 03/28/24 documented as of this encounter
--- OUTSIDE RECORDS SUMMARY | 2024-08-24 11:09 | XMS_ITS | Encounter Summary ---
Author Organization [employer] Address [address] [facility] 7t [place] [address] Care Team Providers Care Bit Setter Name Role Phone Gemini Chavez MD Primary Care Provide r Reason for Visit * Reason Comments Med Refill Encounter Details Date Type Department Care Team ([facility] st Contact Info) Description 03/03/2024 Refill [facility] [address] [place], [place] [phone] Gemini Chavez MD [address] [place], [place] [phone] Social History Tobacco Use Types Packs/Day Years [...] Upcoming Encounters Date Type Department Care Team ([facility] st Contact Info) Description 08/26/2024 11:15 AM EDT Office Visit [facility] [address] [place] [address] Gemini Chavez MD [address] [place] [address] documented as of this encounter Visit Diagnoses Not on filedocumented in this encounter Additional Health Concerns Assessment Noted Time PHQ-9 Depression Total Score: 0 09/03/19 24 9:55 AM EDT documented as of this encounter Care Teams Bit Setter Relationship Specialty Start Date End Date Gemini Chavez MD [address] [place] [address] PCP - General Family Medicine 01/21/18 [employer] 03/28/24 documented as of this encounter
--- OUTSIDE RECORDS SUMMARY | 2024-08-24 11:10 | XMS_ITS | Clinical Summary ---
Author Organization [employer] [facility] Address [address] [place] [address] 7t [place] [address] Care Team Providers Care Tax Consultant Name Role Phone Gemini Chavez MD [...] ANAPHYLAXIS AND CALL [phone] Active Creon [id number] units capsule delayed-release particles capsule Take 2 capsules by mouth 4 times daily. ADMINISTER WITH MEALS AND/OR SNACKS 2022 Active Fluticasone-Salmetero l 250-50 MCG/ACT aerosol powder Inhale 1 puff 2 times daily. 2023 Active Umeclidinium [place] (Incruse Ellipta) 62.5 MCG/ACT aerosol powderIndications:Chr onic obstructive pulmonary disease, unspecified COPD type (CMS/HCC) Take 1 Inhalation. by mouth in the morning. 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 [employer]ER hours Preop examination 02/13/2023 Assessment & Plan [...] ideally next day of procedure--I called his comparative sociology professor-Dr Ely's # [phone] office and spoke w CLIFF rodriguez with [...] Encounters Date Type Department Care Team Description 08/23/2024 10:30 AM EDT Clinical Support [facility] [address] [place] [phone] Maritza Rivera RN Hypertension, unspecified type [I10] 08/23/2024 Travel 08/10/2024 Orders Only GENERIC EXTERNAL DATA DEPARTMENT Provider, Generic External Data 08/09/2024 9:00 AM EDT Office Visit [facility] [address] [place] [phone] Rivas Hurst MD Benign paroxysmal positional vertigo, unspecified laterality (Primary Dx); Chronic left shoulder pain; Hypertension, unspecified type 08/06/2024 Refill [facility] [address] [place] [phone] Gemini Chavez MD Acquired hypothyroidism 08/04/2024 Refill [facility] [address] [place] [phone] Gemini Chavez MD Hypertension, essential 07/29/2024 Telephone [facility] [address] [place] [phone] Gemini Chavez MD ER Follow-up 07/28/[address] [address] Gemini Chavez MD Prior Authorization ( [place] Request: Zepbound) 07/26/2024 Refill [facility] [address] [place] [phone] Gemini Chavez MD 07/22/2024 11:00 AM EDT Office Visit [address] [address] Gemini Chavez MD Precordial pain (Primary Dx); Class 1 obesity due to excess calories with serious comorbidity and body mass index (BMI) of 33.0 to 33.9 in adult 07/22/2024 Orders Only GENERIC EXTERNAL DATA DEPARTMENT Provider, Generic External Data 07/22/2024 Travel 07/15/[address] [facility] [address] [address] Gemini Chavez MD 07/15/2024 Patient Outreach [address] [address] Gemini Chavez MD Pre-visit Planning ((Unable to reach for PVP screening, LVM)) 07/12/2024 11:00 AM EST Clinical Support [address] [address] Elyssa Barajas, GAYLE Dietary counseling; Exercise counseling; Primary hypertension 07/12/2024 Travel 07/05/2024 9:00 AM EST [facility] [address] [address] Alexandra Knox MD Primary hypertension (Primary Dx); Elevated blood pressure reading 07/02/[address] [address] Gemini Chavez MD Pure hypercholesterolemia 06/18/2024 Orders Only [address] [address] Gemini Chavez MD 06/16/2024 Orders Only [facility] External Provider, [facility] 06/10/[address] [place] [address] Gemini Chavez MD Prior Authorization 06/09/2024 Refill [facility] [address] [place] [address] Gemini Ochoa MD Primary hypertension 06/03/2024 Refill [facility] [address] [place] [address] Gemini Chavez MD 05/26/2024 Telephone [facility] [address] [place] [address] Gemini Chavez MD Prior Authorization ([facility] for Zepbound) from Last 3 Months Immunizations Name Administration [...] Sign Reading Time Taken Comments Blood Pressure 158/100 08/23/2024 11:17 AM EDT manual b/p Pulse 75 08/23/2024 11:00 AM EDT Temperature 36.2 ??C (97.1 ??F) 08/23/2024 1 1:00 AM EDT Respiratory Rate 16 08/23/2024 11:0 0 AM EDT Oxygen Saturation 99% 08/23/2024 11: 00 AM EDT Inhaled Oxygen Concentration - - Weight 96.3 kg (212 lb 3.2 oz) 08/10/19 8:47 AM EDT Height 169.5 cm (5' 6.75 ) 08/09/2024 8 :47 AM EDT Body Mass Index 33.48 08/09/2024 8:47 AM EDT Plan of Treatment Upcoming Encounters Date Type Department Care Team (Late st Contact Info) Description 08/26/2024 11:15 AM EDT Office Visit [facility] [address] [place] [address] Gemini Chavez MD [address] [place], [place] [phone] Health Maintenance Due Date Last Done Comments CT Colonography 1955 FIT DNA/Cologuard 1955 FIT 1955 FOBT 1955 Sigmoidoscopy 1955 Alcohol/Substance Use Screening 1967 Hepatitis A Vaccines (1 of 2 - Risk 2-dose series) 11/18/1974 Zoster Vaccines (1 of 2) 11/18/2005 Hepatitis B Vaccines (1 of 3 - Risk 3-dose series) 2015 Depression Screening 09/02/2024 09/03/2023, 09/03/19 24 SDOH Screening 10/30/2024 10/31/2023 Diabetes: Hemoglobin A1C 11/10/2024 024, 05/20/2023, 06/13/2022, Additional history exists Colonoscopy 01/20/2025 01/21/2024 Colorectal Cancer Screening 01/20/2025 Tobacco Screening 08/09/2025 08/09/2024 Lipid Panel 05/03/2029 [...] Procedure Name Priority Date/Time Associated Diagnosis Comments BASIC METABOLIC PANEL Routine 08/10/2024 6:46 AM EDT URINALYSIS WITH REFLEX TO MICROSCOPIC Routine 08/10/2024 6:43 AM EDT HIGH SENSITIVITY TROPONIN I Routine 07/22/2024 7:40 [...] stage 3a or 3b CKD (CMS/HCC) Prediabetes HM COLONOSCOPY Routine 01/21/2024 10:19 AM EDT POCT GLYCATED HEMOGLOBIN, TOTAL Routine 11/11/2023 11:12 AM EDT Prediabetes HEPATITIS C ANTIBODY REFLEX Routine 12/13/2022 8:21 AM EDT from Last 3 Months or Most Recently Relevant to Health Maintenance Results * (ABNORMAL) Basic Metabolic Panel (08/10/2024 6:46 AM EDT) Only the most recent of2 resultswithin the time period is included. Sodium 144 135 - 145 mmol/L [facility] Potassium 4.0 3.3 - 5.1 mmol/L [facility] Chloride 110(H) 96 - 108 mmol/L [facility] Carbon Dioxide 27 22 - 29 mmol/L [facility] Anion Gap 11(L) 12 - 20 [facility] Urea Nitrogen (BUN) 15 9 - 16 mg/dL [facility] Creatinine, Serum 1.11 0.5 - 1.4 mg/dL [facility] Estimated Glomerular Filt Rate >60 [facility] Comment:Chronic Kidney Disea se: Estimated GFR < 60 mL/min/1.35t1Qidclt Kidney Disease: Estimated GFR < 15 mL/min/1.73m2 Glucose 100 60 - 115 mg/dL [facility] Calcium 9.1 8.4 - 10.2 mg/dL [facility] 08/10/2024 6:46 AM EDT 08/10/2024 6:46 AM EDT Generic External Data Provider LAB BLOOD ORDERAB LES Final Result Performing Organization Address [facility] de Phone Number [facility] [address] [place] [phone] * Urinalysis with Reflex to Microscopic (08/10/2024 6:43 AM EDT) Color Urine Yellow [facility] Appearance Urine Clear [facility] PH 5.5 5.0 - 9.0 [facility] Glucose Urine UA Negative Negative mg/dL [facility] Urine Blood Negative Negative [facility] Specific [place] - Urine 1.015 1.005 - 1.025 [facility] Urine Protein Negative Neg-Trace mg/dL [facility] Urine Ketones Trace Negative mg/dL [facility] Nitrite Urine Negative Negative [facility] Leukocyte Esterase Urine Negative Negative [facility] 08/10/2024 6:43 AM EDT 08/10/2024 7:46 AM EDT us Generic External Data Provider LAB URINE ORDERAB LES Final Result Performing Organization Address [facility] Co de Phone Number [facility] [address] [place] [phone] * High Sensitivity Troponin I (07/22/2024 7:40 PM EDT) Only the most recent of4 resultswithin the time period is included. TROPONIN I HIGH SENSITIVITY 3.6 <3.5 - 35.0 ng/L [facility] Comment:The [place] high sens itivity Troponin-I results should beused in conjunction with other diagnostic information suchas ECG, clinical observations and information, and patientsymptoms to aid in the diagnosis of [place]. 07/22/2024 7:40 PM EDT 07/22/2024 7:42 PM EDT us Generic External Data Provider LAB BLOOD ORDERAB LES Final Result [facility] [address] [place] [address] [phone] * ECG 12 lead (07/22/2024 11:21 [...] EST Narrative 06/16/2024 1:02 PM EST ? [facility] ?[address] ?[place] [address] ?XRay Report ? Signed ? Patient: Min Rees ?MR#: ?? [id number] ? : 1955 ?Acct:[id number] ? Age/Sex: 68 / M ?ADM Date: 02/05/25 ? Loc: HO.ED ? Attending Dr: ? Ordering Physician: Sarah Beth Quinonez ?? Date of Service: 06/16/24 ?? Procedure(s): XR shoulder LT min 2V ?? Accession Number(s): [id number] ? cc: Gemini Chavez MD; Sarah Beth [...] by Chacorta Noland MD in OV> ?06/16/24 4139 ? DD/ 1245 ? TD/TT: 06/16/24 1250 ? Risk Professional: MSM ? Procedure Note Tam, Jeancarlos - 06/16/2024 [place] [address] XRay Report Signed Patient: Mini Rees#: [id number] : 6Acct:[id number] Age/Sex: 68 / MADM Date: 06/16/24 Loc: HO.ED Attending Dr: Ordering Physician: Sarah Beth Quinonez Date of Service: 06/16/24 Procedure(s): XR shoulder LT min 2V Accession Number(s): [id number] cc: Gemini Chavez MD; Sarah Beth Quinonez [...] Chacorta Noland MD 06/16/2024 12:59 PM EST RP Dictated By: Chacorta Noland MD Signed By: <Electronically signed by Chacorta Noland MD in OV> 06/16/24 1259 DD/ 1245 TD/TT: 06/16/24 1250 Risk Professional: [facility] External Provider IMG XR PROCEDURES Edited Result - Final * CT Head w/o Contrast (06/16/2024 9:18 AM EST) Anatomical Region Laterality Modality Head, Neck Computed Tomogra phy 06/16/2024 9:18 AM EST Narrative 06/16/2024 9:52 AM EST ? [facility] ?[address] ?[place] [address] ? [address] Scan Report ? Signed ? Patient: Min Rees ?MR#: ?? [id number] ? : 1955 ?Acct:[id number] ? Age/Sex: 68 / M ?ADM Date: 06/16/24 ? Loc: HO.ED ? Attending Dr: ? Ordering Physician: Ysabel Benton NP ?? Date of Service: 06/16/24 ?? Procedure(s): CT head/brain wo IV con ?? Accession Number(s): [id number] ? cc: Gemini Chavez MD; Ysabel Benton NP ? Report Number: ?? [id number]: Total DLP = ??793.00 mGy-cm ?? EXAMINATION: [...] DD/ 0918 ? TD/TT: 06/16/24 0944 ? Risk Professional: ? Procedure Note Jeancarlos Turcios - 06/16/[address] [address] CT Scan Report Signed Patient: Min Rees#: [id number] : 6Acct:[id number] Age/Sex: 68 / MADM Date: 06/16/24 Loc: HO.ED Attending Dr: Ordering Physician: Ysabel Benton NP Date of Service: 06/16/24 Procedure(s): CT head/brain wo IV con Accession Number(s): [id number] cc: Gemini Chavez MD; Ysabel Benton NP Report Number: [id number]: Total DLP = 793.00 mGy-cm EXAMINATION: CT [...] by: Bladimir Doherty MD 06/16/2024 09:49 AM [facility] Dictated By: Bladimir Doherty MD Signed By: <Electronically signed by Bladimir Doherty MD in OV> 06/16/2449 DD/ 7 TD/TT: 06/16/24943 Risk Professional: [facility] External Provider IMG CT PROCEDURES Edited Result - Final * SARS-CoV-2 RNA, Influenza A/B, and RSV RNA, Ql NAAT (06/16/2024 9:16 AM EST) Pathologist [facility] Influenza A PCR NEGATIVE Negative [facility] Influenza B PCR NEGATIVE Negative [facility] Resp Syncy Virus RNA Qual PCR NEGATIVE Negative [facility] SARS COV2 PCR NEGATIVE Negative [facility] Comment:All test results mus t [...] use by authorized laboratories.Testing performed on the [place] GeneXpert utilizingreal-time RT-PCR.All SARS CoV2 and positive influenza A/B results arereported to [facility]. 06/16/2024 9:16 AM EST 06/16/2024 9:21 AM EST us Generic External Data Provider LAB MICROBIOLOGY - GENERAL ORDERABLES Final Result [facility] [address] [place] [phone] * (ABNORMAL) CBC auto differential (06/16/2024 9:16 AM EST) [facility] White Blood Count 6.8 4.8 - 10.8 X10*3/uL [facility] Red Blood Count 3.61(L) 4.60 - 5.80 X10*6/uL [facility] Hemoglobin 11.5(L) 14.0 - 18.0 g/dl [facility] Hematocrit 33.3(L) 42.0 - 52.0 % [facility] Mean Corpuscular Volume 92.2 80.0 - 98.0 fL [facility] Mean Corpuscular Hemoglobin 31.9 27.0 - 33.0 pg [facility] Mean Corpuscular HGB Conc 34.5 31.0 - 36.0 g/dl [facility] Red Cell Distribution Width 12.0 11.0 - 16.0 % [facility] Platelet Count 173 160 - 400 X10*3/uL [facility] Mean Platelet Volume 10.1 9.4 - 12.4 fL [facility] Neutrophils Percent Auto 73.8(H) 45 - 73 % [facility] Imm Gran Pct Auto 0.3 0.0 - 0.4 % [facility] Lymphocytes Percent Auto 14.9(L) 20 - 40 % [facility] Monocytes Percent Auto 10.3 2 - 11 % [facility] Eosinophils Percent Auto 0.4 0 - 4 % [facility] Basophils Percent Auto 0.3 0 - 2 % [facility] NRBC Pct Auto 0.0 0.0 - 0.2 /100WBC [facility] Neutrophils Absolute Auto 5.0 2.0 - 8.3 x10*3/uL [facility] Imm Gran Abs Auto 0.02 0.00 - 0.03 X10*3/uL [facility] Lymphocytes Absolute Auto 1.0(L) 1.2 - 4.9 X10*3/uL [facility] Monocytes Absolute Auto 0.7 0.1 - 1.2 X10*3/uL [facility] Eosinophils Absolute Auto 0.0 0.0 - 0.4 X10*3/uL [facility] Basophils Absolute Auto 0.0 0.0 - 0.2 X10*3/uL [facility] NRBC Abs Auto 0.000 0.0 - 0.012 X10*3/uL [facility] 06/16/2024 9:16 AM EST 06/16/2024 9:21 AM EST us Generic External Data Provider LAB BLOOD ORDERAB LES Final Result [facility] [address] [place] [address] [phone] * (ABNORMAL) Prothrombin Time-INR (06/16/2024 9:16 AM EST) Prothrombin Time 15.5(H) 10.9 - 12.4 SEC [facility] INTERNATIONAL NORM RATIO 1.3(H) 0.9 - 1.1 [facility] Comment:INTERNATIONAL NORMAL IZED RATIO [...] ORDERAB LES Final Result Performing Organization Address [facility] Co de Phone Number [facility] [address] [place] [phone] * (ABNORMAL) B Type Natriuretic Peptide (BNP) (06/16/2024 9:16 AM EST) Pathologist [facility] B Type Natriuretic Peptide 238(H) <100 pg/mL [facility] Comment:For those patients w ho are being treated with Natrecor(nesiritide, recombinant BNP), BNP testing should beperformed at least two hours post treatment in order toensure that only endogenous levels of BNP are detected. 06/16/2024 9:16 AM EST 06/16/2024 9:21 AM EST us Generic External Data Provider LAB BLOOD ORDERAB LES Final Result Performing Organization Address [facility]/ZIP Co de Phone Number [facility] [address] [place] [address] [phone] * Lipase (06/16/2024 9:16 AM EST) Lipase 52 8 - 78 U/L [facility] 06/16/2024 9:16 AM EST 06/16/2024 9:21 AM EST Generic External Data Provider LAB BLOOD ORDERAB LES Final Result Performing Organization Address [facility] Phone Number [facility] [address] [place] [phone] * Hepatic Function Panel (06/16/2024 9:16 AM EST) Bilirubin, Total 0.8 0.0 - 1.0 mg/dL [facility] Bilirubin, Direct 0.3 0.0 - 0.5 mg/dL [facility] Aspartate Amino Transferase 22 5 - 37 U/L [facility] Alanine Aminotransferase 18 0 - 40 U/L [facility] Total Protein 6.5 6.5 - 8.0 g/dL [facility] Albumin Level 3.8 3.5 - 5.0 g/dL [facility] Alkaline Phosphatase 43 39 - 117 U/L [facility] 06/16/2024 9:16 AM EST 06/16/2024 9:[address] [facility] External Data Provider LAB BLOOD ORDERAB LES Final Result Performing Organization Address [facility] Phone Number [facility] [address] [place] [phone] * CT Cervical Spine w/o Contrast (06/16/2024 9:08 AM EST) Anatomical Region Laterality Modality Spine, C-spine Computed Tomogra phy 06/16/2024 9:08 AM EST Narrative 06/16/2024 9:58 AM EST ? [place] [facility] ?[address] ?[place] [address] ? CT Scan Report ? Signed ? Patient: Davonte Cano,Min ?MR#: ?? [id number] ? : 1955 ?Acct:[id number] ? Age/Sex: 68 / M ?ADM Date: 06/16/24 ? Loc: HO.ED ? Attending Dr: ? Ordering Physician: Ysabel Benton NP ?? Date of Service: 06/16/24 ?? Procedure(s): CT cervical spine wo IV con ?? Accession Number(s): [id number] ? cc: Gemini Chavez MD; Ysabel Benton NP ? Report Number: ?? [id number]: Total DLP = ??436.00 mGy-cm ?? EXAMINATION: [...] DD/ 0908 ? TD/TT: 06/16/24 0944 ? Risk Professional: ? Procedure Note Sandrakatherine, Image - 06/16/[address] [place] [address] [address] Scan Report Signed Patient: Min ReesMR#: [id number] : 6Acct:[id number] Age/Sex: 68 / MADM Date: 06/16/24 Loc: HO.ED Attending Dr: Ordering Physician: Ysabel Benton NP Date of Service: 06/16/24 Procedure(s): CT cervical spine wo IV con Accession Number(s): [id number] cc: Gemini Chavez MD; Ysabel Benton NP Report Number: [id number]: Total DLP = 436.00 mGy-cm EXAMINATION: CT [...] 06/16/24 0956 DD/ 0908 TD/TT: 06/16/24 0944 Risk Professional: [facility] External Provider IMG CT PROCEDURES Edited Result - Final * XR Chest 1 View (06/16/2024 8:45 AM EST) Anatomical Region Laterality Modality Chest Radiographic Claire ging 06/16/2024 8:45 AM EST Narrative 06/16/2024 9:05 AM EST ? [facility] ?[address] ?[place] [address] ?XRay Report ? Signed ? Patient: Davonte Cano,Min ?MR#: ?? [id number] ? : 1955 ?Acct:[id number] ? Age/Sex: 68 / M ?ADM Date: 06/16/24 ? Loc: HO.ED ? Attending Dr: ? Ordering Physician: Generic ED Physician ?? Date of Service: 06/16/24 ?? Procedure(s): XR chest 1V ?? Accession Number(s): [id number] ? cc: Gemini Chavez MD; Generic ED [...] DD/ 0845 ? TD/TT: 06/16/24 0850 ? Risk Professional: ? Procedure Note Jeancarlos Turcios - 06/16/[address] [address] XRay Report Signed Patient: Min ReesMR#: [id number] : 6Acct:[id number] Age/Sex: 68 / MADM Date: 06/16/24 Loc: HO.ED Attending Dr: Ordering Physician: Generic ED Physician Date of Service: 06/16/24 Procedure(s): XR chest 1V Accession Number(s): [id number] cc: Gemini Chavez MD; Generic ED Physician [...] 06/16/24 0902 DD/ 0845 TD/TT: 06/16/24 0850 Risk Professional: [facility] External Provider IMG XR PROCEDURES Edited Result - Final * (ABNORMAL) Lipid Panel, Standard (05/03/2024 8:15 AM EST) Triglycerides 230(H) <150 mg/dL [facility] Comment:Desirable Triglyceri de: less than 150 mg/dLBorderline High Triglyceride 150-199 mg/dLHigh Triglyceride: 200-499 mg/dLVery High Triglyceride: greater than or equal to 5OO mg/dL Cholesterol 118 <200 mg/dL [facility] Comment:Desirable Cholestero l: less than 200 mg/dLBorderline High Cholesterol: 200-239 mg/dLHigh Cholesterol: greater than 239 mg/dL LDL Cholesterol Calculated 41 <100 mg/dL [facility] Comment:Desirable LDL: less than 100 mg/dLNear Optimal/Above Optimal LDL: 110- 129 mg/dLBorderline High LDL: 130-159 mg/dLHigh LDL: 160-189 mg/dLVery High LDL: greater than or equal to 190 mg/dL HDL Cholesterol 31(L) >40 mg/dL [facility] Comment:Desirable HDL: great er than 40 mg/dL Note: This HDL assay may give artificially low results in patients with liver disease. Blood Venous blood specimen / Unknown 05/03/2024 8:15 AM EST 05/03/2024 11:40 AM EST Gemini Chung MD LAB BLOOD ORDERABLES Final Result [facility] [address] [place] [phone] * Hm Colonoscopy (01/21/2024 10:19 AM EDT) Colonoscopy Normal Normal Narrative Kaylee, Jamila - 01/21/2024 10:19 AM EDT Repeat Colonoscopy in 6-12 months due to poor right prep or earlier if clinically indicated see external hospital admission note on 01/21/2024 [facility] [employer] [employer] Edited Result - Final * (ABNORMAL) POCT HGB A1C (11/11/2023 11:12 AM EDT) Hemoglobin A1C 6.4(A) 4.0 - 6.0 % QC Media Lot # [id number] Lot# Expiration Date ,776,[id number] Blood 11/11/2023 11:1 2 AM EDT Gemini Chung MD POINT OF CARE TEST EN TER/EDIT ORDERABLES Final Result * Hepatitis C Antibody Reflex (12/13/2022 8:21 AM EDT) Hepatitis C Antibody Nonreactive Nonreactive [facility] Comment:Antibodies to HCV no t detected; does not exclude early acuteHCV infection. 12/13/2022 8:21 AM EDT 12/13/2022 11:08 AM EDT Gemini Chung MD LAB BLOOD ORDERABLES Final Result [facility] [address] [place] [address] [phone] from Last 3 Months or Most Recently Relevant to Health Maintenance Insurance [facility] Member Subscriber Plan / Payer (Ef fective 2022-Present) Name:Min Rees Relation to Subscriber:Self Name:Min Rees Payer ID:Not on file Group ID:[id number] Type:Not on file Address: [address] [employer] (HMO D-SNP) [address] [place] [id number] Care Teams Tax Consultant Relationship Specialty Start Date End Date Gemini Chavez MD [address] [place] [phone] PCP - General Family Medicine 01/21/18 [employer] 03/28/24
--- OUTSIDE RECORDS SUMMARY | 2024-08-24 11:10 | XMS_ITS | Encounter Summary ---
Author Organization [employer] Address [address] [facility] [address] [place] [address] Care Team Providers Care Copier Technician Name Role Phone Gemini Chavez MD Primary Care Provide r Reason for Visit * Reason Onset Date Comments Referral 03/14/2023 Encounter Details Date Type Department Care Team ([facility] st Contact Info) Description 03/14/[address] [facility] [address] [place], [place] [phone] Gemini Chavez MD [address] [place] [address] Referral Social History Tobacco Use Types Packs/Day [...] Description 08/26/2024 11:15 AM EDT Office Visit [facility] [address] [place] [address] Gemini Chavez MD [address] [place] [address] documented as of this encounter Visit Diagnoses Not on filedocumented in this encounter Additional Health Concerns Assessment Noted Time PHQ-9 Depression Total Score: 6 05/16/19 23 1:42 PM EST documented as of this encounter Care Teams Copier Technician Relationship Specialty Start Date End Date Gemini Chavez MD [address] [place] [address] PCP - General Family Medicine 01/21/18 [employer] 03/28/24 documented as of this encounter
--- OUTSIDE RECORDS SUMMARY | 2024-08-24 11:10 | XMS_ITS | Encounter Summary ---
Author Organization [employer] Address [address] [facility] 7t [place] [address] Care Team Providers Care Diagnostic Technologist Name Role Phone Gemini Chavez MD Primary Care Provide r Encounter Details Date Type Department Care Team (Late st Contact Info) Description 02/19/2023 Abstract [facility] [address] [place], [place] [phone] Gemini Chavez MD [address] [place], [place] [phone] Social History Tobacco Use Types Packs/Day Years [...] Description 08/26/2024 11:15 AM EDT Office Visit [facility] [address] [place] [address] Gemini Chavez MD [address] [place] [address] documented as of this encounter Visit Diagnoses Not on filedocumented in this encounter Additional Health Concerns Assessment Noted Time PHQ-9 Depression Total Score: 6 05/16/19 23 1:42 PM EST documented as of this encounter Care Teams Diagnostic Technologist Relationship Specialty Start Date End Date Gemini Chavez MD [address] [place] [address] PCP - General Family Medicine 01/21/18 M [employer] 03/28/24 documented as of this encounter
--- OUTSIDE RECORDS SUMMARY | 2024-08-24 11:10 | XMS_ITS | Encounter Summary ---
Author Organization [employer] Address [address] [facility] 7t [place] [address] Care Team Providers Care Zinc Miner Blasting Name Role Phone Gemini Chavez MD Primary Care Provide r Reason for Visit * Reason Onset Date Comments Nurse Triage 03/26/2023 Encounter Details Date Type Department Care Team ([facility] st Contact Info) Description 03/26/[address] [facility] [address] [place], [place] [phone] Gemini Chavez MD [address] [place] [address] Nurse Triage Social History Tobacco Use Types [...] t he electric, gas, oil or water [employer] threatened to shut off services in your [...] 03/26/2023 11:47 AM EST Triage call with [place]re Director Security Risk Management ID [id number] Pt reports ingrown toenail great toe on left foot for 3 days now. Pt reports it is painful and causes some limping when ambulating. Pt denies redness, drainage. Pt requests a referral to medical research assistant which was very helpful last time this happened. Pt is advised will send this request to PCP and nursing team for follow up and Pt agreed. Pt declined to come to [facility] only wants medical research assistant to cut this toenail. Protocol Used: Information [...] accepted this outcome Please contact pt at [phone] (press breaker needed) documented in this encounter Plan of Treatment Upcoming Encounters Date Type Department Care Team ([facility] st Contact Info) Description 08/26/2024 11:15 AM EDT Office Visit [facility] [address] [place] [address] [phone] Gemini Chavez MD [address] [place], [place] [phone] documented as of this encounter Visit Diagnoses Not on filedocumented in this encounter Additional Health Concerns Assessment Noted Time PHQ-9 Depression Total Score: 6 05/16/19 23 1:42 PM EST documented as of this encounter Care Teams Zinc Miner Blasting Relationship Specialty Start Date End Date Gemini Chavez MD [address] [place] [address] PCP - General Family Medicine 01/21/18 [employer] 03/28/24 documented as of this encounter
--- OUTSIDE RECORDS SUMMARY | 2024-08-24 11:10 | XMS_ITS | Data Portability ---
Author Organization [employer] [place] Address [address] [place] [address] Care Team Providers Care Personalization Specialist Name Role Phone TALIB MARTINEZZEDWIN RONALDO Primary Care Provider [phone] HIM CCA OTHER [facility] OTHER Assessment Encounter Date Assessment Date [...] assessment and plan as documented by the oracle fusion consultant. I provided real time medical direction for this encounter and was immediately available to provide additional phone based assistance as needed. History as noted by oracle fusion consultant. Pt with history of afib on apixaban, [...] be transported via 911 ambulance to the [facility] and I give a pt expect to the ED boarding kennel or cattery operator as well. [email or web address] Not available 03/20/2024 18:19:28 04/21/2024 04/21/2024 I provided real -time medical direction via phone for this encounter and was available for additional phone-based assistance as needed. I have reviewed and agree with the Assessment and Plan as documented by the Truck Crane Operator. Patient given the opportunity to ask questions. [...] pressure. No change in functional status. Per oracle fusion consultant on the scene, vital signs are stable [...] Assessment and Plan as documented by the Truck Crane Operator. We discussed the diagnostic uncertainty of home [...] to call 911- verbalized understanding of instruction [email or web address] Not available 04/27/2024 20:25:46 Plan of Treatment Reminders Order Date Submit Date Provider Last Modified By Organization Details Last Modified Time Details Appointments None recorded. Lab rapid SARS CoV 2 Ag, QL IA, respiratory specimen 2023 024 [email or web address] Main - [facility], [address] [place] [address], [address] [place] [address] 4 20:24:15 rapid flu (A+B) 2023 024 [email or web address] 0 Main - [facility], [address] [place] [address], [phone] 4 20:24:15 BMP, serum or plasma 2023 024 [email or web address] 0 Main - [facility], [address] [place] [address], [address] 4 20:24:15 rapid flu (A+B) 2023 024 [email or web address] Main - [facility], [address] [place] [address], [address] 4 10:38:31 rapid SARS CoV 2 Ag, QL IA, respiratory specimen 2023 024 [email or web address] Main - [facility], [address] [place] [address], [address] 4 10:38:31 Referral None recorded. Procedures None recorded. Surgeries None recorded. Imaging electrocard iogram 2023 024 [email or web address] 0 Main - [facility], [address] [place] [address], [address] 4 20:24:15 electrocard iogram 2023 024 [email or web address] Main - [facility], [address] [place] [address], [address] 4 18:36:07 electrocard iogram 2023 024 [email or web address] Main - [facility], [address] [place] [address], [address] 4 14:50:34 Medication Orders fluticasone propionate 50 mcg/actuati on nasal spray,suspe nsion 2023 024 [facility] [address] [place], [address], 4 12:56:56 Saline Nasal 0.65 % spray aerosol 2023 024 [facility], [address] [place], [address], 4 12:56:56 amoxicillin 500 mg capsule 2023 024 [facility], [address] [place], [address], 4 12:56:55 sodium chloride 0.9 % intravenous solution 2023 024 [email or web address] 0 [facility] [address] [place], [address], 4 20:24:15 prednisone 20 mg tablet 2023 024 [facility]/Pharmacy #2071, [address] [place], [address], 4 10:38:33 prednisone 20 mg tablet 2023 024 [email or web address] [facility]/Pharmacy #0835, [address] [place], [address], 4 10:38:31 Patient TargetsNo targets recorded. Patient Instructions Encounter Date Encounter Id Patient Instructions Last Modified By Organization Details Last Modified Time 03/31/2024 [id number] orthostatic vitals* [email or web address] Not available 03/31/2024 18:21:41 Reason for Referral None Reported. Results Created Date Observation Date Name Description Value Unit Range Abnormal Flag Note LastModifiedBy Organization Detail LastModifiedTime 04/21/20 24 04/21/2024 rapid SARS CoV 2 Ag, QL IA, respi rator y speci men rapid SARS CoV 2 Ag, QL IA, respiratory specimen negati ve Not Available [facility] ed [address] [place] [address], [phone] 04/21/2024 10:37:26 04/21/20 24 04/21/2024 rapid flu (A+B) Flu negati ve Not Available Main - [facility] ed [address] [place] [address], [address] 04/21/2024 10:37:25 04/27/20 24 04/27/2024 rapid flu (A+B) Flu negati ve Not Available [facility] ed [address] [place] [address], [address] 04/27/2024 12:57:09 04/27/20 24 04/27/2024 rapid SARS CoV 2 Ag, QL IA, respi rator y speci men rapid SARS CoV 2 Ag, QL IA, respiratory specimen negati ve Not Available Main - [facility] ed [address] [place] [address], [address] 04/27/2024 12:57:08 03/20/20 24 03/20/2024 elect rocar diogr am No observ ation record ed. [email or web address] Main - [facility] [address] [place] [address], [address] 03/20/2024 14:50:32 03/31/20 24 03/31/2024 elect rocar diogr am No observ ation record ed. [email or web address] Main - [facility] [address] [place] [address], [address] 03/31/2024 18:36:06 04/27/20 24 04/27/2024 elect starr tinajeorgr am No observ ation record ed. [email or web address] [address], [address] 04/27/2024 20:22:51 Result Notes None recorded. Procedures Surgical History None recorded. Imaging Results Imaging Date Name Status LastModified by Organization Details LastModified Time 03/20/2024 electrocardiogram completed [email or web address] [facility] [address] [place] [address], [address] 03/20/2024 14:50:32 03/31/2024 electrocardiogram completed [email or web address] Main - [address], [address] 03/31/2024 18:36:06 04/27/2024 electrocardiogram completed [email or web address] [facility] [address] [place] [address], [address] 04/27/2024 20:22:51 Procedure Notes None recorded. Medical [...] /min 162.56 cm 96 % 96 % 022284. 16 g 16 /min 121 mm[Hg] 87 mm[Hg] Not Available [employer] 4 21:44:22 Date Recorded Heart rate Respiratory rate Body temperature Oxygen saturation Oxygen saturation in Arterial blood by Pulse oximetry Systolic blood pressure Diastolic blood pressure Systolic blood pressure Diastolic blood pressure Provider Name and Address Organization Details Last Updated DateTime 4 105 /min 16 /min 98.7 [degF] 95 % 95 % 114 mm[Hg] 81 mm[Hg] 85 mm[Hg] 51 mm[Hg] Not Available [employer] 4 14:41:24 Date Recorded Respiratory rate Heart rate Body weight Body temperature Oxygen saturation Oxygen saturation in Arterial blood by Pulse oximetry Heart rate Respiratory rate Systolic blood pressure Diastolic blood pressure Systolic blood pressure Diastolic blood pressure Provider Name and Address Organization Details Last Updated DateTime 4 16 /min 74 /min 15460.4 4 g 98.3 [degF] 98 % 98 % 84 /min 20 /min 114 mm[Hg] 84 mm[Hg] 120 mm[Hg] 86 mm[Hg] Not Available [employer] 4 18:31:50 Date Recorded Oxygen saturation Oxygen saturation in Arterial blood by Pulse oximetry Body temperature Respiratory rate Heart rate Systolic blood pressure Diastolic blood pressure Provider Name and Address Organization Details Last Updated DateTime 4 98 % 98 % 98.1 [degF] 20 /min 95 /min 150 mm[Hg] 100 mm[Hg] Not Available [employer] 4 11:24:31 Date Recorded Body height Body mass index (BMI) Body weight Provider Name and Address Organization Details Last Updated DateTime 04/27/2024 162.56 cm 33.5 kg/m2 64763.51 g Davina Garner MD [address] [facility],[address], [place], [address], [place] - [employer] 04/27/2024 20:03:55 Social History None recorded. Functional Status None recorded. Mental Status None recorded. Family History Nothing Reported. Medical History No medical history recorded. Past Encounters Encounter ID Performer Location Encounter Start Date Encounter Closed Date Diagnosis/Indication Diagnosis SNOMED-CT Code Diagnosis ICD10 Code Diagnosis Note [id number] Allison Newman MD Main - [facility] [address] [place] [phone] 04/11/2022 18:32:13 04/15/2022 15:46:34 Cough 94774559 R05.9 [id number] Davina Garner MD Main - [facility] [address] [place] [phone] 01/07/2023 14:14:00 01/07/2023 22:56:53 Essential hypertension 31155938 I10 Patient exam is benign. Patient reassured/ his blood pressure is normal when taken with the medic cough. The medic measured the patient's blood pressure with his 5-year-old home machine and got 135/112 thus it is the patient's machine that is giving erroneous readingsNo te sent to [facility] to reach out to the insurance healthcare representative to assist the patient in obtaining a new home blood pressure monitor. Advised to continue all his regular medication s and follow-up with his PCP as needed [id number] Davina Garner MD Main - [facility] [address] [place] [phone] 01/08/2023 15:21:28 01/08/2023 23:59:09 Viral upper respiratory tract infection 342821722 J06.9 And viral pharyngiti s-advised to gargle [...] pcp. Sandra Bloom MD Main - [facility] [address] [place] [phone] 06/23/2023 18:11:30 06/24/2023 10:34:59 Dizziness [id number] R42 [id number] Marlyn Casas MD Main - [facility] [address] [place] [phone] 08/05/2023 10:57:00 08/05/2023 16:00:41 Asthma 848081882 J45.909 Exacerbati on of moderate persistent asthma 638482698 J45.41 [id number] Eric Israel MD Main - [facility] [address] [place] [id number] 08/13/2023 12:51:38 08/13/2023 20:11:05 Acute exacerbation of chronic obstructive pulmonary disease 360047139 J44.1 The patient has a flare-up of his COPD. He will continue his current treatments . [id number] Eric Israel MD Main - [facility] [address] [place] [phone] 11/14/2023 12:02:23 11/14/2023 21:31:15 Vertigo [id number] R42 This 67-year-ol d male with a past history of vertigo developed mild vertigo today. He has taken Meclizine in the past with good relief. I ordered Meclizine 50 mg now. He will follow-up with his PCP if the vertigo persists. The patient agreed with this plan. [id number] Thomas Lyon MD Main - [facility] [address] [place] [phone] 11/27/2023 21:44:10 11/28/2023 10:18:17 Headache 64727376 R51.9 [id number] Jeancarlos Gonsales MD Main - [facility] [address] [place] [phone] 03/20/2024 14:41:13 03/22/2024 13:41:42 Orthostatic hypotension 69406303 I95.1 Atrial fibrillation 4943 6004 I48.91 [id number] RENU MARIE MD Main - [facility] [address] [place] [phone] 03/31/2024 18:19:08 04/01/2024 11:10:35 Dizziness 476214050 R42 Evaluation in the field was performed by my oracle fusion consultant colleague, as noted above, I provided real-time [...] , palpitatio ns or any other concerns. [id number] Marlyn Casas MD Main - [facility] [address] [place] [phone] 04/21/2024 10:14:37 04/22/2024 00:16:20 Asthma-chronic obstructive pulmonary disease overlap syndrome [id number] 5632472 J44.9 Viral uppe r respiratory tract infection 580159424 J06.9 [id number] Davina Garner MD Main - [facility] [address] [place] [phone] 04/27/2024 11:24:18 04/27/2024 22:19:18 Headache 66137876 R51.9 w/ dizziness- possibly sinusitisS lightly less [...] Young Member ID Guarantor Name 11/27/2023 1 [facility] - DOS ON OR AFTER 2022 - DUAL ELIGIBLE - INTERMEDIATE OPTIONS AND ONE CARE (MEDICARE REPLACEMENT/AD VANTAGE - HMO) Min Arauz [id number] Min Arauz 03/20/2024 1 [facility] - DOS ON OR AFTER 2022 - DUAL ELIGIBLE - INTERMEDIATE OPTIONS AND ONE CARE (MEDICARE REPLACEMENT/AD VANTAGE - HMO) Min Arauz [id number] Min Arauz 03/31/2024 1 [facility] - DOS ON OR AFTER 2022 - DUAL ELIGIBLE - INTERMEDIATE OPTIONS AND ONE CARE (MEDICARE REPLACEMENT/AD VANTAGE - HMO) Min Arauz [id number] Min Arauz 04/21/2024 1 [facility] - DOS ON OR AFTER 2022 - DUAL ELIGIBLE - INTERMEDIATE OPTIONS AND ONE CARE (MEDICARE REPLACEMENT/AD VANTAGE - HMO) Min Arauz [id number] Min Arauz 04/27/2024 1 [facility] - DOS ON OR AFTER 2022 - DUAL ELIGIBLE - INTERMEDIATE OPTIONS AND ONE CARE (MEDICARE REPLACEMENT/AD VANTAGE - HMO) Min Arauz [id number] Min Arauz Notes Date Note Type Note Provider Name and Address Organization Details Recorded Time 11/27/2023 text/html [facility] Nurse Triage Notes (Padmini Payne): Reason For Request: high BP Chief Complaints: Hypertension PMH: COPD/Asthma, Hypertension, CHF, Heart Disease, Diabetes Allergies: No Known Comments: Referral taken via [employer] [id number]. Member with elevated BP, 153/112 and 156/120, took his HS medications. Member with headache and dizziness, denies chest pain, mild sob, but is not new, denies any arm or jaw pain, no numbness, tingling or weakness anywhere. Member would like to be evaluated. ...................... ...................... ...................... ...................... ...................... ...................... ......... Truck Crane Operator Note From Pradeep Rainey: [employer] visit for [...] afib, no other significant findings. Consulted with [facility] Dr. Lyon who advised pt should take another 500mg tylenol. Reviewed red flags for ED. Patient education provided. ...................... ...................... ...................... ...................... ...................... ...................... ......... Disposition: Fulfilled Thomas Lyon MD [address] [facility],[address], [place], [address], [employer]ANICE ARANA 11/27/2023 23:06:36 03/20/2024 text/html This was a super vised home visit with oracle fusion consultant Rivas Thapa. [facility] Nurse Triage Notes (Dov Lainez): Reason For Request: Patient was dizzy, fell, and hurt himself, possibly bp problems - Chief Complaints: Dizziness PMH: COPD/Asthma, Hypertension, Congestive Heart Failure, Coronary Artery Disease, Gastroesophageal Reflux Disease (GERD) Comments: [employer] Supervisor verified the Pt.'s name//address and phone [...] Concerns expressed - PT declines ER treatment. Truck Crane Operator Organization Information for Rivas Thapa - [employer] Legal Name: [facility] [employer] Address: [address] [place] [address], [place] [address], Recruiting Operations Consultant: Byron Mauro MD [facility] No.: [id number] Truck Crane Operator POC Test Results from Rivas Thapa - CHRIS EKG (14:32:21) EKG test performed. Attachments uploaded as part of this test result can be found under Documents section. ...................... ...................... ...................... ...................... ...................... ...................... ......... Truck Crane Operator Note From Rivas Thapa: This 68-year-old male [...] No lower extremity edema. EKG uploaded, a-fib. [facility] contacted and agrees that an emergency department evaluation is necessary. Patient agreeable to ambulance transport to [facility] emergency department. 911 initiated and verbal SBAR given to [facility] ALS crew. ...................... ...................... ...................... ...................... ...................... ...................... ......... [facility] Consulted: Jeancarlos Gonsales ...................... ...................... ...................... ...................... ...................... ...................... ......... Disposition: Syed Gonsales MD [address] [facility],[address], [place], [address], [place] [employer] 03/20/2024 18:19:45 03/31/2024 text/html CRC Nurse Triage [...] ...................... ...................... ...................... ...................... ...................... ...................... ......... Truck Crane Operator Note From Chuy Finn: Pt had no [...] and rhythm/A-fib. Pt stable. Pt taking eliquis. [facility] Baci contacted and advised pt of signs indicating the ER, Drink plenty of fluids, Monitor symptoms. Allergies Discussed. ...................... ...................... ...................... ...................... ...................... ...................... ......... [facility] Consulted: Renu Marie ...................... ...................... ...................... ...................... ...................... ...................... ......... Disposition: Syed MARIE MD [address] [place] [address],[address], [place], [address], [employer] 03/31/2024 23:40:49 04/27/2024 text/html [facility] Nurse Triage Notes (Padmini Payne - [...] morning. Patient would like to be re-evaluated. Truck Crane Operator Organization Information for Cheikh Mejia Legal Name: [employer] Address: [address] [place], [place] [address], [place] [address], Recruiting Operations Consultant: Parish CAUSEY No.: [id number] Truck Crane Operator POC Test Results from Cheikh Mejia EKG (::26) EKG test performed. Reason for missing picture: Uploaded iSTAT Chem8+ (13:04:28) Na: 137 mEq/L K: 3.8 mEq/L Cl: 103 mEq/L iCa: 1.17 mmol/L TCO2: 22 mmol/L Glu: 94 mg/dL BUN: 25 mg/dL Crea: 1.3 mg/dL Hct: 34 % Hb: 11.6 g/dL A Rapid COVID antigen (13:04:29) COVID: - Rapid influenza antigen (13:04:30) Flu: - ...................... ...................... ...................... ...................... ...................... ...................... ......... Truck Crane Operator Note From Cheikh Mejia: Dispatched for the scheduled visit for the male patient with a headache. pt. was found alert and oriented x3 sitting in bed c/o of a severe headache from yesterday with dizziness upon sitting up. pt. noted he had been seen by [facility] on the but could not remember his [...] in all extremities -dcaptbtls -stroke scale findings. [facility] contacted and ordered COVID and FLU swab, BMP and orthostatic vital signs while sitting and standing in addition. 21 gauge butterfly LAC performed for BMP. all results forwarded and [facility] then ordered a 12 lead ekg and IV with 750 ml Normal Saline. IV established 18 gauge left forearm-normal saline IV drip 750 ml. all results forwarded to [facility] with changed after normal saline. [facility] noted she would send amoxicillin and Fluticasone and saline nasal spray to the patients pharmacy for possible nasal infection. red flag warnings discussed and noted to call 911 if headache or dizziness worsened any slurred speech, weakness, facial droop or syncope occurred. all times are approx.report completed by rob mejia. [facility] Lab Orders: rapid SARS CoV 2 Ag, QL IA, respiratory specimen: Performed ...................... ...................... ...................... ...................... ...................... ...................... ......... [facility] Consulted: Davina Garner ...................... ...................... ...................... ...................... ...................... ...................... ......... Disposition: FulfilledSEGMD: pat seen by Marianela on 04/21 and diagnosed with COPD exacerbation [...] Kidney Disease, Obesity. Davina Garner MD [address] [facility],[address], [place], [address], [employer] - JANICE RAMIREZ 04/27/2024 20:33:33
--- OUTSIDE RECORDS SUMMARY | 2024-08-24 11:10 | XMS_ITS | Encounter Summary ---
Author Organization [email or web address] Address [address] [facility] 7t [place] [address] Care Team Providers Care Medical Claims Assistant Name Role Phone Gemini Chavez MD Primary Care Provide r Encounter Details Date Type Department Care Team (Late st Contact Info) Description 07/10/2023 Orders Only [facility] MEDICINE [address] [place], [place] [phone] Gemini Chavez MD 230 [place], [place] [phone] Mixed stress and urge urinary incontinence (Primary [...] the past 12 months, has t he [employer], [employer], oil or water company threatened to shut [...] Description 08/26/2024 11:15 AM EDT Office Visit [facility] [address] [place] [address] Gemini Chavez MD [address] [place] [address] documented as of this encounter Visit Diagnoses Diagnosis Mixed stress and urge urinary incontinence- Primary Mixed incontinence urge and stress (male)(female) documented in this encounter Additional Health Concerns Assessment Noted Time PHQ-9 Depression Total Score: 6 05/16/19 23 1:42 PM EST documented as of this encounter Care Teams Medical Claims Assistant Relationship Specialty Start Date End Date Gemini Chavez MD [address] [place] [address] PCP - General Family Medicine 01/21/18 [employer] 03/28/24 documented as of this encounter
--- OUTSIDE RECORDS SUMMARY | 2024-08-24 11:10 | XMS_ITS | Encounter Summary ---
Author Organization [employer] Address 75 [facility] 7t [place] [address] Care Team Providers Care Body Shop Technician Name Role Phone Gemini Chavez MD Primary Care Provide r Reason for Visit * Reason Comments Med Change Request Encounter Details Date Type Department Care Team ([facility] st Contact Info) Description 02/04/2023 Refill [facility]S [address] [place], [place] [phone] Marsha Menjivar MD [address] [place] [address] Primary hypertension Social History Tobacco Use Types [...] - 03/03/2023 11:46 AM EDT Sent to [employer] [facility] * Telephone Encounter - Jacqueline [...] Description 08/26/2024 11:15 AM EDT Office Visit [facility] MEDICINE 230 [place] [address] Gemini Chavez MD [address] [place] [address] documented as of this encounter Visit Diagnoses Diagnosis Primary hypertension Unspecified essential hypertension documented in this encounter Additional Health Concerns Assessment Noted Time PHQ-9 Depression Total Score: 6 05/16/19 23 1:42 PM EST documented as of this encounter Care Teams Body Shop Technician Relationship Specialty Start Date End Date Gemini Chavez MD [address] [place] [address] PCP - General Family Medicine 01/21/18 [employer] 03/28/24 documented as of this encounter
--- OUTSIDE RECORDS SUMMARY | 2024-08-24 11:10 | XMS_ITS | Encounter Summary ---
Author Organization [employer] [facility] Address 75 [facility] 7t [place] [address] Care Team Providers Care Financial Systems Director Name Role Phone Gemini Chavez MD Primary Care Provide r Reason for Visit * Reason Comments Med Change Request Encounter Details Date Type Department Care Team (Late st Contact Info) Description 01/08/2023 Refill [facility] MEDICINE 230 [place], [place] [phone] Marsha Menjivar MD 230 [place], [place] [phone] Chronic obstructive pulmonary disease, unspecified COPD type [...] generated for Nebulizer signed and faxed to [facility]. documented in this encounter Plan of Treatment Upcoming Encounters Date Type Department Care Team (Late st Contact Info) Description 08/26/2024 11:15 AM EDT Office Visit [facility] MEDICINE 230 [place] [address] Gemini Chavez MD 230 [place] [address] documented as of this encounter Visit Diagnoses Diagnosis Chronic obstructive pulmonary disease, unspecified COPD type (CMS/HCC) documented in this encounter Additional Health Concerns Assessment Noted Time PHQ-9 Depression Total Score: 6 05/16/19 23 1:42 PM EST documented as of this encounter Care Teams Financial Systems Director Relationship Specialty Start Date End Date Gemini Chavez MD 230 [place] [address] PCP - General Family Medicine 01/21/18 [employer] 03/28/24 documented as of this encounter
--- OUTSIDE RECORDS SUMMARY | 2024-08-24 11:10 | XMS_ITS | Patient Health Record ---
Author Organization [facility] Address [address] [place] [address] Care Team Providers Care Fuse Spooler Name Role Phone Gemini Fisher M.D. Primary Care Provider Larry Angeles Jr Unavailable Katherine FORTE, Cipriano Unavailable Unavailable Allergies No Known Allergies Reason For Referral No Information Medications Medication SIG (Take, Route, Frequency, Duration) Notes Start Date End Date Status Creon [id number] UNIT TOME 2 C PSULAS POR V [...] Status W/U Status Risk Notes Problem Dysphagia (93977432) Dysphagia (R13.10) Active confirmed Problem 36306529 Dysphagia, unspecified type (R13.10) Active confirmed Problem 967067667 Abnormal barium swallow (R93.3) Active confirmed Problem 588604616 Gastroesophageal reflux disease, unspecified whether esophagitis present (K21.9) Active confirmed Problem 626150368 Presbyesophagus (K22.89) Active confirmed Plan Of Treatment Future Test Test Name Order Date UPPER GI ENDOSCOPY 03/13/2023 Insurance Providers Payer Name Payer Address Payer Phone Subscriber Number Group Number Insured Name Patient Relationship to Insured Coverage Start Date Coverage End Date [facility] [address] Attn Claims CLIFF Perez [id number] KOBE DAILY Self - patient is the insured Medical (General) History Medical History History ICD Code CE/COPD hypertension Fatty liver pulmonary nodule Elevated BMI Atrial fibrillation Hypothyroidism Gastroesophageal reflux disease/dysphagi a Surgical History Surgery Date(Month/Year) Cataract surgery Umbilical hernia repair Tonsillectomy
--- OUTSIDE RECORDS SUMMARY | 2024-08-24 11:10 | XMS_ITS | Encounter Summary ---
Author Organization [employer] [facility] Address [address] [facility] 7t [place] [address] Care Team Providers Care Retort Loader Name Role Phone Gemini Chavez MD Primary Care Provide r Encounter Details Date Type Department Care Team (Late st Contact Info) Description 01/22/2023 Orders Only [facility] MEDICINE 230 [place], [place] [phone] Gemini Chavez MD 230 [place], [place] [phone] COPD with asthma ([facility]) Social History Tobacco Use Types Packs/Day [...] Description 08/26/2024 11:15 AM EDT Office Visit [facility] [address] [place] [address] [phone] Gemini Chavez MD 230 [place], [place] [phone] documented as of this encounter Visit Diagnoses Diagnosis COPD with asthma ([facility]) documented in this encounter Additional Health Concerns Assessment Noted Time PHQ-9 Depression Total Score: 6 05/16/19 23 1:42 PM EST documented as of this encounter Care Teams Retort Loader Relationship Specialty Start Date End Date Gemini Chavez MD 230 [place] [address] PCP - General Family Medicine 01/21/18 [employer] 03/28/24 documented as of this encounter
--- OUTSIDE RECORDS SUMMARY | 2024-08-24 11:10 | XMS_ITS | Clinical Summary ---
Author Organization [address] [facility] Address [address] [place] [address] Phone Care Team Providers Care Middle School Counselor Name Role Phone Gemini Chavez MD Primary Care Provide r Allergies No known active allergies Encounters Date Type Department Care Team Description 06/02/2024 1:45 PM EST Office Visit [facility] [address] [address] Gallito Hancock DPM Ingrowing nail (Primary Dx); Type II diabetes mellitus with peripheral circulatory disorder ([facility] V24, [facility] V28) from Last 3 Months Social History Tobacco [...] 09/01/2024 1:00 PM EDT Office Visit [facility] [address] [address] Gallito Hancock DPM [address] [address] Health Maintenance Due Date Last [...] Blood Sugar Control Test (HGBA1C) 06/02/2024 11/11/2023 COVID-19 Vaccine ( season) 2024 02/11/2024, 02/06/2023, 04/24/2022, Additional history exists Depression Screening 09/02/2024 09/03/2023 Diabetes: Annual GFR (Glomerular Filtration Rate) 05/04/2025 05/04/2024, 05/03/2024 Hypertension/CHF/CAD Annual BMP Blood Test 05/04/2025 05/04/2024, 05/03/2024 Cholesterol Screening (Lipid Panel) 05/03/2029 05/03/2024 DTaP,Tdap,and Td Vaccines (5 - Td or Tdap) 04/10/2031 04/10/2021, 06/16/2014, 01/30/2006, Additional history exists Pneumococcal Vaccine: 50+ Years Completed 11/04/2022, 02/03/2015, 01/24/2015, Additional history exists RSV Immunization Adult Patients Completed 05/19/2023 Influenza Vaccine Completed 01/05/2024, , 01/23/2022, Additional history exists HIB Vaccines Aged Out [...] age to complete this topic Meningococcal B Vaccine Aged Out No l onger eligible based on patient's age to complete this topic RSV Immunization Patients Under 20 months Aged Out No longer eligible based on patient's age to complete this topic Varicella Vaccines Aged Out No longer eligible based on patient's age to complete this topic Insurance GUST[employer]O SHARIF [id number] [employer] MEDICARE Member Subscriber Plan / Payer (Ef fective 2022-Present) Name:Min eRes Relation to Subscriber:Self Name:Min Rees Payer ID:[id number] Group ID:[id number] Type:Not on file Address: [place] [address] [place] [phone] Care Teams Middle School Counselor Relationship Specialty Start Date End Date Gemini Chavez MD [address] [place] [address] [place] [phone] PCP - General 04/24/23
--- OUTSIDE RECORDS SUMMARY | 2024-08-24 11:11 | XMS_ITS | Encounter Summary ---
Author Organization [employer] [facility] Address 75 [facility] 7t [place] [address] Care Team Providers Care Location Worker Name Role Phone Gemini Chavez MD Primary Care Provide r Encounter Details Date Type Department Care Team (Latest Contact Info) Description 08/23/2024 Travel Social History Tobacco Use Types Packs/Day [...] Description 08/26/2024 11:15 AM EDT Office Visit [facility] MEDICINE 230 [place] [address] Gemini Chavez MD 230 [place] [address] documented as of this encounter Visit Diagnoses Not on filedocumented in this encounter Additional Health Concerns Assessment Noted Time PHQ-9 Depression Total Score: 0 09/03/19 9:55 AM EDT documented as of this encounter Care Teams Location Worker Relationship Specialty Start Date End Date Gemini Chavez MD 230 [place] [address] PCP - General Family Medicine 01/21/18 [employer] 03/28/24 documented as of this encounter
--- OUTSIDE RECORDS SUMMARY | 2024-08-24 11:11 | XMS_ITS ---
Author Organization [facility] Address [address] [place] [address] Care Team Providers Care Vp Global Name Role Phone Gemini Fisher M.D. Primary Care Provider Abimael Carnes Jr, Larry Unavailable [phone] Katherine FORTE, Cipriano Unavailable Unavailable REASON FOR VISIT pathology Encounters Encounter Location Date Provider Diagnosis [facility] [address] [place] [address] 04/14/2023 Larry Carnes Jr Plan Of Treatment No Information Progress Notes * BEN DAILYIODOB: 1955 (67 yo M)Acc No.[id number]:04/14/2023 Patient:?KOBE DAILY :1955???Age:67 Y???Sex:Male Address:[address] [place] [address] [address] , [place], [address] * true * Date:? Generated for Byroni bobby/Aylin/eTransmitting on:?08/24/2024 11:10 AM EDT
--- OUTSIDE RECORDS SUMMARY | 2024-08-24 11:11 | XMS_ITS | Encounter Summary ---
Author Organization [employer] Address 75 [facility] 7t [place] [address] Care Team Providers Care Clinical Physician Assistant Name Role Phone Gemini Chavez MD Primary Care Provide r Reason for Visit * Reason Comments Med Refill Encounter Details Date Type Department Care Team ([facility] st Contact Info) Description 05/08/2024 Refill [facility] MEDICINE 230 [place], [place] [phone] Gemini Chavez MD 230 [place], [place] [phone] Class 1 obesity due to excess calories [...] 11:15 AM EDT Office Visit [facility] MEDICINE [address] [place] [address] Gemini Chavez MD 230 [place] [address] documented as of this encounter Visit Diagnoses Diagnosis Class 1 obesity due to excess calories with serious comorbidity and body mass index (BMI) of 33.0 to 33.9 in adult documented in this encounter Additional Health Concerns Assessment Noted Time PHQ-9 Depression Total Score: 0 09/03/19 24 9:55 AM EDT documented as of this encounter Care Teams Clinical Physician Assistant Relationship Specialty Start Date End Date Gemini Chavez MD [address] [place] [address] PCP - General Family Medicine 01/21/18 [employer] 03/28/24 documented as of this encounter
--- OUTSIDE RECORDS SUMMARY | 2024-08-24 11:11 | XMS_ITS | Encounter Summary ---
Author Organization [employer] Address [address] [facility] 7t [place] [address] Care Team Providers Care Ticket Marker Name Role Phone Gemini Chavez MD Primary Care Provide r Encounter Details Date Type Department Care Team (Late st Contact Info) Description 05/10/2024 Orders Only [facility] MEDICINE 230 [place], [place] [phone] Gemini Chavez MD 230 [place], [place] [phone] Stage 3 chronic kidney disease, unspecified whether [...] Description 08/26/2024 11:15 AM EDT Office Visit [facility] MEDICINE 230 [place] [address] Gemini Chavez MD 230 [place] [address] documented as of this encounter Visit Diagnoses [...] documented as of this encounter Care Teams Ticket Marker Relationship Specialty Start Date End Date Gemini Chavez MD [address] [place] [address] PCP - General Family Medicine 01/21/18 [email or web address] 03/28/24 documented as of this encounter
--- OUTSIDE RECORDS SUMMARY | 2024-08-24 11:11 | XMS_ITS | Encounter Summary ---
Author Organization [employer] Address 75 [facility] 7t [place] [address] Care Team Providers Care Nuclear Reactor Operator Name Role Phone Gemini Chavez MD Primary Care Provide r Reason for Visit * Reason Comments NST/BPP Visit Encounter Details Date Type Department Care Team (Latest Contact Info) Description 08/23/2024 10:30 AM EDT Clinical Support [facility] MEDICINE 230 [place], [place] [phone] Maritza Rivera RN Hypertension, unspecified type [I10] Social History Tobacco Use Types Packs/Day Years [...] Blood Pressure 158/100 08/23/2024 11:17 AM EDT ma dontrellal b/p Pulse 75 08/23/2024 11:00 AM EDT Temperature 36.2 ??C (97.1 ??F) 08/23/2024 11:00 AM E DT Respiratory Rate 16 08/23/2024 11:00 AM EDT Oxygen Saturation 99% 08/23/2024 11:00 AM EDT Inhaled Oxygen Concentration - - Weight - - Height - - Body Mass Index - - documented in this encounter Progress Notes * Maritza Rivera RN - 08/23/2024 10:30 AM EDT SUBJECTIVE: Min Cano is a 68 y.o. year old male who presents for NST/BPP Visit Preferred language for medical information: Forensic Social Worker needed: Yes, in house transportation analyst and [facility] # [id number] Recommendations at last visit were Pt was sent to ED for acute chest pain.. Today, Min Cano does complain of shortness of breath x 3 months , bilateral LE swelling and intermittent headaches in the am, takes Tylenol. Current Outpatient Medications Medication Sig Dispense Refill Acetaminophen Extra Strength 500 MG tablet TOME FAUSTINA TABLETA POR V A ORAL CADA SEIS HORAS CUANDO SEANECESARIO MAX 8 TABS DAILY 40 tablet 2 albuterol (2.5 MG/3ML) 0.083% nebulizer solution USE 1 VIAL VIA NEBULIZER KINJAL VECES AL СЕРГЕЙ 150 mL 3 amLODIPine (Norvasc) 10 MG tablet Take 1 tablet (10 mg) by mouth Once per day. 30 tablet 11 amLODIPine (Norvasc) 2.5 MG tablet Take 2 tablets (5 mg) by mouth Once per day. 60 tablet 11 apixaban (Eliquis) 5 MG tablet TAKE 1 TABLET BY MOUTH TWICE A DAY 180 tablet 0 Blood Pressure Monitoring ([facility] Blood Pressure Monitor) [facility] USE TO MONITOR BLOOD PRESSURE 1 each 0 cholecalciferol (Vitamin D-3) 25 MCG (1000 UT) tablet Take 1 tablet (25 mcg) by mouth Once per day.60 tablet 1 cholecalciferol (Vitamin D-3) 50 MCG (2000 UT) tablet TAKE 1 TABLET BY MOUTH EVERY DAY 90 tablet 3 clonazePAM (KlonoPIN) 1 MG tablet TOME FAUSTINA TABLETA DOS VECES AL D A CUANDO SEA NECESARIO Creon [id number] units capsule delayed-release particles capsule Take 2 [...] NECESARIO levothyroxine (Synthroid, Levoxyl) 100 MCG tablet TOME 1 TABLETA POR VIA ORAL TODOS [place] LANDER[place] 90 tablet 1 lisinopril 40 MG tablet [...] time per week. 2 mL 0 Umeclidinium [place] (Incruse Ellipta) 62.5 MCG/ACT aerosol powder Take [...] LOS D AL ACOSTARSE CUANDO SEA NECESARIO Current Facility-Administered Medications Medication Dose Route Frequency Provider Last Rate Last Admin nitroglycerin (Nitrostat) SL tablet 0.4 mg 0.4 mg Sublingual q5 min PRN Gemini Chung MD0.4 mg at 07/22/24 1145 Patient Active Problem List Diagnosis Date Noted Precordial pain 07/22/2024 Stage 3 chronic kidney disease ([facility]) 04/16/2024 Class 1 obesity due to excess calories with serious comorbidity and body mass index (BMI) of 33.0 to 33.9 in adult 02/11/2024 Benign prostatic hyperplasia (BPH) with straining on urination 02/11/2024 Class 2 severe obesity due to excess calories with serious comorbidity and body mass index (BMI) of38.0 to 38.9 in adult ([facility]) 11/11/2023 Colon cancer screening 09/03/2023 Atrial fibrillation with RVR ([facility]) 08/22/2023 Mixed stress and urge urinary incontinence 07/10/2023 Weight gain 05/19/2023 Prediabetes 05/19/2023 Polyarthralgia 03/05/2023 Preop examination 02/13/2023 COPD with asthma ([facility]) 01/22/2023 Needle exposure 12/12/2022 Hoarseness, persistent 11/28/2022 Venous stasis 11/28/2022 Venous insufficiency of lower extremity 11/28/2022 Pain in right toe(s) 11/04/2022 Vertigo 11/04/2022 Aching headache 05/16/2022 Chronic obstructive lung disease ([facility]) 05/16/2022 Chronic systolic heart failure ([facility]) 05/16/2022 Dyspnea on exertion 05/16/2022 Vascular insufficiency 05/16/2022 Acquired hypothyroidism 02/04/2018 History of alcohol abuse 06/23/2012 Simple renal cyst 06/23/2012 Steatohepatitis 06/23/2012 Atrial fibrillation ([facility]) 12/12/2011 Ptosis of eyelid 12/12/2011 Rupture of quadriceps tendon 12/12/2011 Sleep apnea 12/12/2011 Anxiety state 10/31/2011 Coronary atherosclerosis 10/31/2011 Hypertension 10/31/2011 Mood disorder ([facility]) 10/31/2011 Pure hypercholesterolemia 10/31/2011 Iodinated contrast media and Kiwi extract Min Cano does confirm adherence to medications for hypertension listed above. Confirmed medications taken today [x] Recent emergency room or hospitalizations: No Social History Tobacco Use Smoking Status Former Types: Cigarettes Passive exposure: Past Smokeless Tobacco Never Social History Substance and Sexual Activity Alcohol Use Never Social History Substance and Sexual Activity Drug Use Never BP Readings from Last 4 Encounters: 08/23/24 (!) 158/100 08/09/24 (!) 150/96 07/22/24 (!) 139/94 07/12/24 (!) 170/94 Pulse Readings from Last 4 Encounters: 08/23/24 75 08/09/24 85 07/22/24 78 07/12/24 88 OBJECTIVE: Vitals: 08/23/24 1100 08/23/24 1117 BP: (!) 159/107 (!) 158/100 BP Location: Right arm Patient Position: Sitting BP Cuff Size: Adult Pulse: 75 Resp: 16 Temp: 97.1 ??F (36.2 ??C) TempSrc: Oral SpO2: 99% ASSESSMENT: Achieve goal blood pressure of <140/90 or <130/80 PLAN: Today's findings reviewed with PCP. Changes to medication regimen are none at this time. Min Cano advised to continue taking medications as directed and reinforcement of lifestyle modifications including low sodium diet and exercise were reviewed. Last seen Casino Operations Supervisor on08/18/24, next appt 09/14/24 Min Cano agreeable to plan discussed at today's visit. Future Appointments Date Time Provider Department Center 08/26/2024 11:15 AM Gemini Chung MD MEDICINE [facility] Maritza Rivera RN documented in this encounter Plan of Treatment Upcoming Encounters Date Type Department Care Team (Late st Contact Info) Description 08/26/2024 11:15 AM EDT Office Visit [facility] MEDICINE [address] [place] [address] Gemini Chavez MD [address] [place], [place] [phone] documented as of this encounter Visit Diagnoses Diagnosis Hypertension, unspecified type [I10] documented in this encounter Additional Health Concerns Assessment Noted Time PHQ-9 Depression Total Score: 0 09/03/19 9:55 AM EDT documented as of this encounter Care Teams Nuclear Reactor Operator Relationship Specialty Start Date End Date Gemini Chavez MD [address] [place] [address] PCP - General Family Medicine 01/21/18 [employer] 03/28/24 documented as of this encounter
--- OUTSIDE RECORDS SUMMARY | 2024-08-24 11:11 | XMS_ITS ---
Author Organization [facility] Address [address] [place] [address] Care Team Providers Care Hand Miter Operator Name Role Phone Gemini Fisher M.D. Primary [...] EACH DAY Inhalation for 30 Active Creon [id number] UNIT TOME 2 C PSULAS POR V [...] Problem Status W/U Status Risk Notes Problem 02624882 Dysphagia, unspecified type (R13.10) Active confirmed Problem 704986615 Abnormal barium swallow (R93.3) Active confirmed Problem 439377734 Gastroesophageal reflux disease, unspecified whether esophagitis present (K21.9) Active confirmed Problem 134963210 Presbyesophagus (K22.89) Active confirmed Vital Signs Temperature 97.8 degrees Fahrenheit 03/13/20 23 Blood pressure systolic 000 mm Hg 03/13/20 23 Blood pressure diastolic 00 mm Hg 023 Height 5 ft 5 in in 03/13/2023 Weight 221 lbs 03/13/2023 BMI 36.77 kg/m2 03/13/2023 Encounters Encounter Location Date Provider Diagnosis [facility] [address] [place] [phone] 03/13/2023 Larry Carnes Jr Dysphagia, unspecified type [...] * BEN DAILYIODOB: 1955 (67 yo M)Acc No.[id number]:03/13/2023 Progress Notes Patient:?KOBE DAILY Provider:?Larry Carnes MD :1955???Age:67 Y???Sex:Male Jose Manuel e:03/13/2023 Address:[address] [place], [place] [phone] Pcp:Gemini Fisher Subjective: * Chief Complaints: * [...] TODOS LOS D Oral , Taking Creon [id number] UNIT Capsule Delayed Release Particles TOME 2 [...] Carnes MD Date:?05/13/2022 Generated for Dutch rosales/Aylin/Poweritting on:?08/24/2024 11:10 AM EDT History and Physical Notes * [...]
--- OUTSIDE RECORDS SUMMARY | 2024-08-24 11:11 | XMS_ITS | Encounter Summary ---
Author Organization [employer] Address [address] [facility] 7t [place] [address] Care Team Providers Care Services Executive Name Role Phone eGmini Chavez MD Primary Care Provide r Encounter Details Date Type Department Care Team (Late st Contact Info) Description 06/18/2024 Orders Only [facility] [address] [place], [place] [phone] Gemini Chavez MD [address] [place], [place] [phone] Social History Tobacco Use Types Packs/Day Years [...] Description 08/26/2024 11:15 AM EDT Office Visit [facility] [address] [place] [address] Gemini Chavez MD [address] [place] [address] documented as of this encounter Visit Diagnoses Not on filedocumented in this encounter Additional Health Concerns Assessment Noted Time PHQ-9 Depression Total Score: 0 09/03/19 24 9:55 AM EDT documented as of this encounter Care Teams Services Executive Relationship Specialty Start Date End Date Gemini Chavez MD [address] [place] [address] PCP - General Family Medicine 01/21/18 [employer] 03/28/24 documented as of this encounter
--- OUTSIDE RECORDS SUMMARY | 2024-08-24 11:11 | XMS_ITS | Encounter Summary ---
Author Organization [employer] Address [address] [facility] 7t [place] [address] Care Team Providers Care Tobacco Cutter Name Role Phone Gemini Chavez MD Primary Care Provide r Reason for Visit * Reason Comments Med Refill Encounter Details Date Type Department Care Team ([facility] st Contact Info) Description 10/20/2023 Refill [facility] [address] [place], [place] [phone] Gemini Chavez MD [address] [place] [address] Seasonal allergies Social History Tobacco Use Types [...] Description 08/26/2024 11:15 AM EDT Office Visit [facility] [address] [place] [address] Gemini Chavez MD [address] [place] [address] documented as of this encounter Visit Diagnoses Diagnosis Seasonal allergies Allergic rhinitis, cause unspecified documented in this encounter Additional Health Concerns Assessment Noted Time PHQ-9 Depression Total Score: 0 09/03/19 9:55 AM EDT documented as of this encounter Care Teams Tobacco Cutter Relationship Specialty Start Date End Date Gemini Chavez MD [address] [place] [address] PCP - General Family Medicine 01/21/18 [email or web address] 03/28/24 documented as of this encounter
== END 2024-08-24 09:56 | disposition home or self-care (01) ==
LOC: HO.HKA 09:46
PROVIDERS: PCP Internal Medicine; Visit Provider Internal Medicine Hypertension Specialist
DX: N18.9 Chronic kidney disease, unspecified (principal)
CPT/HCPCS: 99214

== ENCOUNTER → 2024-08-24 09:46 | Outpatient (BNVA) | payer OTHER, SELFPAY | PROVIDERS: PCP Internal Medicine; Visit Provider Internal Medicine Hypertension Specialist | DX: I12.9 Hypertensive chronic kidney disease with stage 1 through stage 4 chronic kidney disease, or unspecified chronic kidney disease (principal); N18.9 Chronic kidney disease, unspecified; E66.9 Obesity, unspecified; Z68.34 Body mass index [BMI] 34.0-34.9, adult | CPT/HCPCS: 99212 ==

== ENCOUNTER 2024-08-25 17:57 | Emergency (ER) | payer OTHER, SELFPAY ==
--- NOTE | 2024-08-25 | ECG_ITS ---
Test Reason : CHEST PAIN Blood Pressure : */* mmHG Vent. Rate : 79 BPM Atrial Rate : 79 BPM P-R Int : 158 ms QRS Dur : 90 ms QT Int : 372 ms P-R-T Axes : 35 -8 28 degrees QTcB Int : 426 ms Normal sinus rhythm Minimal voltage criteria for LVH, may be normal variant ( Waldemar product ) Borderline ECG Normal sinus rhythm has replaced Atrial fibrillation Referred By: Generic ED Physician Electronically Signed By: ANDIE DAVISON MD
[2024-08-25 18:16] VITALS: BP 172/112; BP 173/103; PULSE 16; PULSE 77; RESP 16; TEMP 36.3; O2SAT 99; BMI 34.0
[2024-08-25 19:11] LABS: MANUAL DIFF FLAG NO
[2024-08-25 19:14] LABS: Basophils Percent Auto 0.5 % (0-2); Eosinophils Absolute Auto 0.1 X10*3/uL (0.0-0.4); Eosinophils Percent Auto 0.8 % (0-4); Hematocrit 37.6 % (42.0-52.0); Hemoglobin 12.9 g/dl (14.0-18.0); Imm Gran Abs Auto 0.02 X10*3/uL (0.00-0.03); Imm Gran Pct Auto 0.3 % (0.0-0.4); Lymphocytes Absolute Auto 1.6 X10*3/uL (1.2-4.9); Lymphocytes Percent Auto 25.8 % (20-40); Mean Corpuscular HGB Conc 34.3 g/dl (31.0-36.0); Mean Corpuscular Hemoglobin 30.9 pg (27.0-33.0); Mean Corpuscular Volume 90.2 fL (80.0-98.0); Mean Platelet Volume 9.7 fL (9.4-12.4); Monocytes Absolute Auto 0.8 X10*3/uL (0.1-1.2); Neutrophils Absolute Auto 3.7 x10*3/uL (2.0-8.3); Neutrophils Percent Auto 59.6 % (45-73); Platelet Count 180 X10*3/uL (160-400); Red Blood Count 4.17 X10*6/uL (4.60-5.80); Red Cell Distribution Width 11.9 % (11.0-16.0); White Blood Count 6.2 X10*3/uL (4.8-10.8)
[2024-08-25 19:19] LABS: INTERNATIONAL NORM RATIO 1.1 (0.9-1.1); Prothrombin Time 12.9 SEC (10.9-12.4)
--- NOTE | 2024-08-25 19:19 | ED.GENADULT ---
HPI - General Adult General Chief complaint: Headache Stated complaint: dizzy, headache, hx htn Time Seen by Provider: 08/25/24 19:15 History of Present Illness ED Provider: Eleuterio Jenkins MD HPI narrative: 68-year-old male with history of hypertension, chronic vertigo, chronic shoulder pain he presents mainly concerned for blood pressure 170/1 10s at home this afternoon he takes his blood pressure regularly at the instruction of his PCP. He reported very mild headache around that time and mild dizziness but these symptoms have since resolved. Patient has no vision change focal neurologic changes or symptoms nor any chest pain difficulty breathing or other symptoms Related Data Home Medications ?Medication ?Instructions ?Recorded ?Confirmed apixaban 5 mg tablet 5 mg PO BID 05/24/20 08/24/24 cholecalciferol (vitamin D3) 50 50 mcg PO DAILY 05/24/20 08/24/24 mcg (2,000 unit) tablet clonazepam 1 mg tablet 1 mg PO BID PRN Anxiety 05/24/20 08/24/24 hydroxyzine pamoate 25 mg capsule 25 mg PO BID PRN Anxiety 05/24/20 08/24/24 levothyroxine 100 mcg tablet 100 mcg PO DAILY 05/24/20 08/24/24 lisinopril 40 mg tablet 40 mg PO DAILY 05/24/20 08/24/24 metoprolol succinate 200 mg 200 mg PO DAILY 05/24/20 08/24/24 tablet,extended release 24 hr rosuvastatin 40 mg tablet 40 mg PO DAILY 05/24/20 08/24/24 zolpidem 10 mg tablet 10 mg PO BEDTIME PRN Insomnia 05/24/20 08/24/24 albuterol sulfate 2.5 mg/3 mL 3 mg inhalation QID PRN Shortness 03/20/21 08/24/24 (0.083 %) solution for nebulization Of Breath Or Wheezing diclofenac sodium 1 % topical gel 2 g topical QID 08/08/23 08/24/24 vitamin E (dl, acetate) 45 mg (100 45 mg PO DAILY 08/08/23 08/24/24 unit) capsule umeclidinium 62.5 mcg/actuation 1 inh inhalation DAILY 03/17/24 08/24/24 blister powder for inhalation (Incruse Ellipta) furosemide 40 mg tablet 40 mg PO Q2D 05/25/24 08/24/24 hydrochlorothiazide 12.5 mg tablet 12.5 mg PO DAILY 05/25/24 08/24/24 meclizine 25 mg tablet 25 mg PO DAILY 05/25/24 08/24/24 metformin 500 mg tablet 500 mg PO BID 05/25/24 08/24/24 Previous Rx's ?Medication ?Instructions ?Recorded epinephrine 0.3 mg/0.3 mL 0.3 mg (0.3 mL) IM Q4H PRN 04/07/23 injection, auto-injector (EpiPen anaphylaxis #2 ea 2-Blaise) albuterol sulfate 90 mcg/actuation 2 puff PO Q6H PRN shortness of 12/23/23 aerosol inhaler (Ventolin HFA) breath or wheezing #18 ea bisacodyl 5 mg tablet,delayed 10 mg (2 x 5 mg) PO BEDTIME 2 days 02/04/24 release (Dulcolax (bisacodyl)) #4 tabs L.acidophil,salivari-Bifido 1 cap PO DAILY #30 caps 03/19/24 bifidum-Strep thermoph 175 mg capsule (Acidophilus Probiotic Blend) hcsabp-tiehyifr-ijgivny 2 cap PO QID #720 caps 03/19/24 36,000-114,000-180,000 unit capsule,delay rel (Creon) pantoprazole 40 mg tablet,delayed 40 mg PO DAILY #30 tabs 03/19/24 release sennosides 8.6 mg tablet (Senna 17.2 mg (2 x 8.6 mg) PO BEDTIME 03/19/24 Laxative) #60 tabs simethicone 180 mg capsule 180 mg PO QID 30 days #120 caps 03/19/24 fluticasone 250 mcg-salmeterol 50 1 ea PO BID #180 ea 06/23/24 mcg/dose blistr powdr for inhalation (Wixela Inhub) sodium,potassium,mag sulfates 17.5 See Rx Instructions PO .COMPLEX 08/20/24 gram-3.13 gram-1.6 gram oral soln #354 mL (Suprep Bowel Prep Kit) Allergies Allergy/AdvReac Type Severity Reaction Status Date / Time Iodinated Contrast Media Allergy Unknown HIVES Verified 08/25/24 18:18 [CONTRAST, IV] kiwi [KIWI] Allergy Unknown THROAT Verified 08/25/24 18:18 [facility] Past Medical History Medical History Pre-op examination Colon cancer screening Hoarseness Dysphagia Throat disorder Bronchitis CHF (congestive heart failure) Afib Allergic rhinitis COPD (chronic obstructive pulmonary disease) CE (obstructive sleep apnea) Obesity (BMI 30-39.9) Hypothyroid Anxiety Palpitation HTN (hypertension) Surgical History Hx of umbilical hernia repair History of surgery on arm Hx of eye surgery Hx of colonoscopy Hx of knee surgery Hx of tonsillectomy Family History Family History Family/Other No problems noted. Social History Social History Household Members: None Housing: Apartment Do you presently have visiting nurse or other home services: Yes Alcohol intake: former Patient Tobacco Use Status: Former Tobacco user Smoked in Last 30 Days: No Use of substances other than those prescribed or required for medical reasons: No Advance Directives: Yes Advance Directives on File: Yes Advance Directives Date on File: 08/11/23 Do you have a plan to hurt others: No Plan service: No Physical Exam ED Vital Signs: Vital Signs - 24 hr 08/25/24 18:16 Temperature 97.4 F Pulse Rate 77 Respiratory Rate 16 Blood Pressure 173/103 H Pulse Oximetry 99 Oxygen Delivery Method Room Air BMI result Body Mass Index 34.0 Const Other: EXAM: Gen: Alert, awake, well appearing, well hydrated. Head: Atraumatic Eyes: Anicteric, Normal conjunctiva. ENT: Moist mucosa, no pallor. ? Neck: Supple. Respiratory: Breathing comfortably, No distress.Clear to auscultation bilaterally, symmetric chest expansion, No wheeze, rales, ronchi. Cardiovascular: Regular rate and rhythm. No murmurs or rub. Well perfused periphery, warm extremities. No edema. ? Abdominal: Soft, no objective distension. No palpable masses or obvious organomegaly. No focal tenderness, no guarding, no rebound tenderness or other peritoneal findings. MSK: Shoulder with limited range of motion particularly limited abduction but also with flexion and extension. Tender throughout the deltoid region no swelling no reddened. Neurovascularly intact left upper extremity soft compartments no focal bony tenderness or deformity : No flank tenderness. Neuro: Alert. Gross movement of all extremities intact. ? Vital signs: See flowsheet Medical Decision Making Medical Decision Making [facility] Narrative: 60-year-old male with hypertension, 170/110 at home alarmed him and he came for evaluation. Asymptomatic at this time per guidelines no indication for any additional treatment or workup. Patient's shoulder pain was chronic and mentioned incidentally on review of systems he does appear to have some stiffness as described above possibly arthritic or internal derangement of the shoulder. We will place in a sling I have advised him to ask PCP for orthopedic referral tomorrow when he sees the PCP in the office. Labs reassuring. Lab Data [facility] Lab Attestation statement: I reviewed the patient's lab results. 08/25/24 19:07 08/25/24 19:07 Labs: Lab Results 08/25/24 Range/Units 19:07 WBC 6.2 (4.8-10.8) X10*3/uL RBC 4.17 L (4.60-5.80) X10*6/uL Hgb 12.9 L (14.0-18.0) g/dl Hct 37.6 L (42.0-52.0) % MCV 90.2 (80.0-98.0) fL MCH 30.9 (27.0-33.0) pg MCHC 34.3 (31.0-36.0) g/dl RDW 11.9 (11.0-16.0) % Plt Count 180 (160-400) X10*3/uL MPV 9.7 (9.4-12.4) fL Immature Gran % (Auto) 0.3 (0.0-0.4) % Neut % (Auto) 59.6 (45-73) % Lymph % (Auto) 25.8 (20-40) % [place] % (Auto) 13.0 H (2-11) % Eos % (Auto) 0.8 (0-4) % Baso % (Auto) 0.5 (0-2) % Lymph # (Auto) 1.6 (1.2-4.9) X10*3/uL [place] # (Auto) 0.8 (0.1-1.2) X10*3/uL Eos # (Auto) 0.1 (0.0-0.4) X10*3/uL Baso # (Auto) 0.0 (0.0-0.2) X10*3/uL Abs Immat Gran (auto) 0.02 (0.00-0.03) X10*3/uL Absolute Neuts (auto) 3.7 (2.0-8.3) x10*3/uL Absolute Nucleated RBC 0.000 (0.0-0.012) X10*3/uL Nucleated RBC % (auto) 0.0 (0.0-0.2) /100WBC PT 12.9 H (10.9-12.4) SEC INR 1.1 (0.9-1.1) Sodium 143 (135-145) mmol/L Potassium 4.1 (3.3-5.1) mmol/L Chloride 108 (96-108) mmol/L Carbon Dioxide 28 (22-29) mmol/L Anion Gap 11 L (12-20) BUN 16 (9-16) mg/dL Creatinine 1.08 (0.5-1.4) mg/dL Estim Creat Clear Calc 73.1 Estimated GFR > 60 Random Glucose 101 (60-115) mg/dL Calcium 9.7 D (8.4-10.2) mg/dL Magnesium 1.9 (1.6-2.6) mg/dL Total Bilirubin 1.0 (0.0-1.0) mg/dL AST 21 (5-37) U/L ALT 22 (0-40) U/L Alkaline Phosphatase 46 (39-117) U/L Troponin I High Sens 4.2 (<3.5-35.0) ng/L Total Protein 6.7 (6.5-8.0) g/dL Albumin 4.2 (3.5-5.0) g/dL Influenza Type A (PCR) NEGATIVE (Negative) Influenza Type B (PCR) NEGATIVE (Negative) RSV RNA Qual (PCR) NEGATIVE (Negative) SARS-CoV-2 RNA (RT-PCR) NEGATIVE (Negative) Independent Interpretation I performed an independent interpretation of an: EKG Interpretation: Sinus rhythm rate 67, QTC 4-6, no ischemic changes 1 Pac Discharge Plan Discharge Clinical Impression: Hypertension Patient Disposition: Home, Self-Care Instructions: Hypertension (ED) Additional Instructions: DISCHARGE DIAGNOSES: Hypertension resolved and asymptomatic Shoulder pain chronic likely internal derangement of the shoulder or arthritis HISTORY OF PRESENTATION: ?Elevated blood pressure at home [place]. No symptoms related to blood pressure. EMERGENCY DEPARTMENT COURSE,TESTS, TREATMENTS: While in the ED today you had reassuring lab workup EKG and examination DISCHARGE MEDICATIONS: ?[We have made no changes to your regular medication regimen] FOLLOW-UP: ?Call your primary or general physician soon as possible to discuss your symptoms, your ED visit and to discuss follow up plans When you follow-up with your primary doctor tomorrow make sure you mentioned in your shoulder she get referral to Orthopedics discuss your blood pressure and transient symptoms today INSTRUCTIONS ?& RETURN PRECAUTIONS: If any symptoms change first call your primary physician, if it is after-hours your primary doctors office should have a provider valuation consultant you can speak with. If the symptoms are severe or very concerning to you then call 911 or return to the ED. Eleuterio Jenkins MD Emergency Physician [facility] Prescriptions: No Action albuterol sulfate [Ventolin HFA] 90 mcg/actuation HFA aerosol inhaler 2 puff PO Q6H PRN (Reason: shortness of breath or wheezing) Qty: 18 0RF fluticasone propion-salmeterol [Wixela Inhub] 250-50 mcg/dose blister with device 1 ea PO BID Qty: 180 1RF sodium,potassium,mag sulfates [Suprep Bowel Prep Kit] 17.5-3.13-1.6 gram recon soln See Rx Instructions PO .COMPLEX Qty: 354 0RF Rx Instructions: DILUTE; drink 1/2 at 6-8 pm and half at 11 PM- 1AM epinephrine [EpiPen 2-Blaise] 0.3 mg/0.3 mL auto-injector 0.3 mg IM Q4H PRN (Reason: anaphylaxis) Qty: 2 0RF vitamin E (dl, acetate) 45 mg (100 unit) capsule 45 mg PO DAILY diclofenac sodium 1 % gel 2 g topical QID furosemide 40 mg tablet 40 mg PO Q2D zolpidem 10 mg tablet 10 mg PO BEDTIME PRN (Reason: Insomnia) hydroxyzine pamoate 25 mg capsule 25 mg PO BID PRN (Reason: Anxiety) cholecalciferol (vitamin D3) 50 mcg (2,000 unit) tablet 50 mcg PO DAILY lisinopril 40 mg tablet 40 mg PO DAILY apixaban 5 mg tablet 5 mg PO BID clonazepam 1 mg tablet 1 mg PO BID PRN (Reason: Anxiety) rosuvastatin 40 mg tablet 40 mg PO DAILY metoprolol succinate 200 mg tablet extended release 24 hr 200 mg PO DAILY levothyroxine 100 mcg tablet 100 mcg PO DAILY albuterol sulfate 2.5 mg /3 mL (0.083 %) solution for nebulization 3 mg inhalation QID PRN (Reason: Shortness Of Breath Or Wheezing) bisacodyl [Dulcolax (bisacodyl)] 5 mg tablet,delayed release (DR/EC) 10 mg PO BEDTIME 2 Days Qty: 4 0RF hydrochlorothiazide 12.5 mg tablet 12.5 mg PO DAILY metformin 500 mg tablet 500 mg PO BID Incruse Ellipta 62.5 mcg/actuation blister with device 1 inh inhalation DAILY meclizine 25 mg tablet 25 mg PO DAILY Creon 36,000-114,000- 180,000 unit capsule,delayed release(DR/EC) 2 cap PO QID Qty: 720 1RF L.acidoph,saliva-B.bif-S.therm [Acidophilus Probiotic Blend] 175 mg capsule 1 cap PO DAILY Qty: 30 6RF pantoprazole 40 mg tablet,delayed release (DR/EC) 40 mg PO DAILY Qty: 30 6RF sennosides [Senna Laxative] 8.6 mg tablet 17.2 mg PO BEDTIME Qty: 60 6RF simethicone 180 mg capsule 180 mg PO QID 30 Days Qty: 120 6RF Rx Instructions: after meals Interventions: ED Discharge Assessment Last Done: 08/25/24 20:14 Discharge Date/Time: 08/25/24 20:25 Print Language: Saudi Arabian
[2024-08-25 19:30] LABS: Alanine Aminotransferase 22 U/L (0-40); Albumin Level 4.2 g/dL (3.5-5.0); Alkaline Phosphatase 46 U/L (39-117); Anion Gap 11 (12-20); Aspartate Amino Transferase 21 U/L (5-37); Blood Urea Nitrogen 16 mg/dL (9-16); Calcium 9.7 mg/dL (8.4-10.2); Carbon Dioxide 28 mmol/L (22-29); Chloride 108 mmol/L (96-108); Creatinine Clr Calc Pharmacy 73.1; Estimated Glomerular Filt Rate > 60; Glucose Random 101 mg/dL (60-115); Magnesium 1.9 mg/dL (1.6-2.6); Potassium 4.1 mmol/L (3.3-5.1); Sodium 143 mmol/L (135-145); Total Protein 6.7 g/dL (6.5-8.0)
--- OUTSIDE RECORDS SUMMARY | 2024-08-25 19:42 | XMS_ITS | Encounter Summary ---
Author Organization [employer] Address [address] [facility] 7t [place] [address] Care Team Providers Care Bagel Maker Name Role Phone Gemini Chavez MD Primary Care Provide r Reason for Visit * Reason Onset Date Comments Appointment Request 08/21/2022 Encounter Details Date Type Department Care Team ([facility] st Contact Info) Description 08/21/2022 Telephone [facility] [address] [place], [place] [phone] Gemini Chavez MD [address] [place] [address] Appointment Request Social History Tobacco Use Types [...] an family emergency. Please contact pt at [phone] documented in this encounter Plan of Treatment Upcoming Encounters Date Type Department Care Team (Late st Contact Info) Description 08/26/2024 11:15 AM EDT Office Visit [facility] [address] [place] [address] Gemini Chavez MD [address] [place] [address] documented as of this encounter Visit Diagnoses Not on filedocumented in this encounter Additional Health Concerns Assessment Noted Time PHQ-9 Depression Total Score: 6 05/16/19 23 1:42 PM EST documented as of this encounter Care Teams Bagel Maker Relationship Specialty Start Date End Date Gemini Chavez MD [address] [place] [address] PCP - General Family Medicine 01/21/18 [facility] 03/28/24 documented as of this encounter
--- OUTSIDE RECORDS SUMMARY | 2024-08-25 19:42 | XMS_ITS | Encounter Summary ---
Author Organization [employer] Address [address] [facility] 7t [place] [address] Care Team Providers Care Manager Water Name Role Phone Gemini Chavez MD Primary Care Provide r Reason for Visit * Reason Comments Med Refill Encounter Details Date Type Department Care Team ([facility] st Contact Info) Description 02/12/2024 Refill [facility] [address] [place], [place] [phone] Gemini Chavez MD [address] [place] [address] Prediabetes Social History Tobacco Use Types Packs/Day [...] 11:15 AM EDT Office Visit [facility] [address] [place] [address] Gemini Chavez MD [address] [place] [address] documented as of this encounter Visit Diagnoses Diagnosis Prediabetes Other abnormal glucose documented in this encounter Additional Health Concerns Assessment Noted Time PHQ-9 Depression Total Score: 0 09/03/19 9:55 AM EDT documented as of this encounter Care Teams Manager Water Relationship Specialty Start Date End Date Gemini Chavez MD [address] [place] [address] PCP - General Family Medicine 01/21/18 [employer] 03/28/24 documented as of this encounter
--- OUTSIDE RECORDS SUMMARY | 2024-08-25 19:42 | XMS_ITS ---
Author Organization [facility] Address [address] [place] [address] Care Team Providers Care Application Packaging Specialist Name Role Phone Phillip Sousa, Gemini Primary Care Provider Larry Angeles Jr Unavailable [phone] Katherine FORTE, Cipriano Unavailable Unavailable REASON FOR VISIT dysphagia Problems Problem Type SNOMED Code ICD Code Onset Dates Problem Status W/U Status Risk Notes Problem Dysphagia (57867201) Dysphagia (R13.10) Active confirmed Encounters Encounter Location Date Provider Diagnosis [facility] [address] [place], [place] [phone] 04/01/2023 Larry Carnes Jr Dysphagia R13.10 and Abn findings-GI tract R93.3 Assessments Encounter Date Diagnosis (ICD Code) Assessment Notes Treatment Notes Treatment Clinical Notes Section Notes 04/01/2023 Dysphagia (ICD-10 - R13.10) 04/01/2023 Abn findings-GI tract (ICD-10 - R93.3) Plan Of Treatment No Information Progress Notes * BEN DAILYIODOB: 1955 (68 yo M)Acc No.[id number]:04/01/2023 EGD/MAC Patient:?KOBE DAILY Provider:?Larry Carnes MD :1955???Age:67 Y???Sex:Male Jose Manuel e:04/01/2023 Address:[address] [place], [place] [id number] Pcp:Gemini Fisher M.D. Subjective: * Chief Complaints: * ???1. Dysphagia. * Medical History:? Objective: * Vitals:? Assessment: * Assessment: 1.?Dysphagia - R13.10 (Prima ry)???2.?Abn findings-GI tract - R93.3??? Plan: * Treatment: * Procedure Codes:?77887 UPPER GI ENDOSCOPY, BIOPSY * * The named appointment provid er may or may not be the originator of this progress note, and it is not deemed complete until electronically signed by the appointment provider. Sign off status: Pending * Provider:?Larry Carnes MD Date:?1 06/01/2022 Generated for Dutch rosales/Aylin/eTransmitting on:?08/25/2024 07:41 PM EDT
--- OUTSIDE RECORDS SUMMARY | 2024-08-25 19:42 | XMS_ITS | Encounter Summary ---
Author Organization [employer] Address [address] [facility] 7t [place] [address] Care Team Providers Care Rotary Drier Feeder Name Role Phone Gemini Chavez MD Primary Care Provide r Reason for Visit * Reason Comments Med Refill Encounter Details Date Type Department Care Team ([facility] st Contact Info) Description 05/14/2024 Refill [facility] [address] [place], [place] [phone] Gemini Chavez MD [address] [place], [place] [phone] Class 1 obesity due to excess calories [...] Visit [facility] [address] [place] [address] Gemini Chavez MD [address] [place] [address] documented as of this encounter Visit Diagnoses Diagnosis Class 1 obesity due to excess calories with serious comorbidity and body mass index (BMI) of 33.0 to 33.9 in adult documented in this encounter Additional Health Concerns Assessment Noted Time PHQ-9 Depression Total Score: 0 09/03/19 9:55 AM EDT documented as of this encounter Care Teams Rotary Drier Feeder Relationship Specialty Start Date End Date Gemini Chavez MD [address] [place] [address] PCP - General Family Medicine 01/21/18 [email or web address] 03/28/24 documented as of this encounter
--- OUTSIDE RECORDS SUMMARY | 2024-08-25 19:42 | XMS_ITS | Patient Health Record ---
Author Organization [facility] Address [address] [place] [address] Care Team Providers Care Glass Production Machine Operator Name Role Phone Gemini Fisher M.D. Primary Care Provider Larry Angeles Jr Unavailable Katherine FORTE, Cipriano Unavailable Unavailable Allergies No Known Allergies Reason For Referral No Information Medications Medication SIG (Take, Route, Frequency, Duration) Notes Start Date End Date Status Creon [id number] UNIT TOME 2 C PSULAS POR V [...] Status W/U Status Risk Notes Problem Dysphagia (10047611) Dysphagia (R13.10) Active confirmed Problem 96552529 Dysphagia, unspecified type (R13.10) Active confirmed Problem 542876276 Abnormal barium swallow (R93.3) Active confirmed Problem [id number] Gastroesophageal reflux disease, unspecified whether esophagitis present (K21.9) Active confirmed Problem 480135864 Presbyesophagus (K22.89) Active confirmed Plan Of Treatment Future Test Test Name Order Date UPPER GI ENDOSCOPY 03/13/2023 Insurance Providers Payer Name Payer Address Payer Phone Subscriber Number Group Number Insured Name Patient Relationship to Insured Coverage Start Date Coverage End Date [facility] [address] Attn Claims CLIFF [place] [id number] KOBE DAILY Self - patient is the insured Medical (General) History Medical History History ICD Code CE/COPD hypertension Fatty liver pulmonary nodule Elevated BMI Atrial fibrillation Hypothyroidism Gastroesophageal reflux disease/dysphagi a Surgical History Surgery Date(Month/Year) Cataract surgery Umbilical hernia repair Tonsillectomy
--- OUTSIDE RECORDS SUMMARY | 2024-08-25 19:42 | XMS_ITS | Encounter Summary ---
Author Organization [employer] Address [address] [facility] [address] [place] [address] Care Team Providers Care Oil Rig Driller Name Role Phone Gemini Chavez MD Primary Care Provide r Reason for Visit * Reason Comments Med Refill Encounter Details Date Type Department Care Team ([facility] st Contact Info) Description 03/03/2024 Refill [facility] [address] [place], [place] [phone] Gemini Chavez MD [address] [place], [place] [phone] Social History Tobacco Use Types Packs/Day Years [...] Upcoming Encounters Date Type Department Care Team ([facility] st Contact Info) Description 08/26/2024 11:15 AM EDT Office Visit [facility] [address] [place] [address] Gemini Chavez MD [address] [place] [address] documented as of this encounter Visit Diagnoses Not on filedocumented in this encounter Additional Health Concerns Assessment Noted Time PHQ-9 Depression Total Score: 0 09/03/19 24 9:55 AM EDT documented as of this encounter Care Teams Oil Rig Driller Relationship Specialty Start Date End Date Gemini Chavez MD [address] [place] [address] PCP - General Family Medicine 01/21/18 [facility] 03/28/24 documented as of this encounter
--- OUTSIDE RECORDS SUMMARY | 2024-08-25 19:42 | XMS_ITS | Clinical Summary ---
Author Organization [facility] Address [address] [place] [address] Phone Care Team Providers Care Data Steward Name Role Phone Gemini Chavez MD Primary Care Provide r Allergies No known active allergies Encounters Date Type Department Care Team Description 06/02/2024 1:45 PM EST Office Visit Orthopedic [facility] [address] [phone] Gallito Hancock DPM Ingrowing nail (Primary Dx); Type II diabetes mellitus with peripheral circulatory disorder ([facility] V24, [facility] V28) from Last 3 Months Social History [...] 09/01/2024 1:00 PM EDT Office Visit Orthopedic [facility] [address] [phone] Gallito Hancock DPM [address] [address] Health Maintenance Due Date Last [...] patient's age to complete this topic Insurance [place]ARIF [id number] [employer] MEDICARE Member Subscriber Plan / Payer (Ef fective 2022-Present) Name:Min Rees Relation to Subscriber:Self Name:Min Rees Payer ID:[id number] Group ID:[id number] Type:Not on file Address: [place] [address] [place] [address] Care Teams Data Steward Relationship Specialty Start Date End Date Gemini Chavez MD [address] [place] [address] [place] [phone] PCP - General 04/24/23
--- OUTSIDE RECORDS SUMMARY | 2024-08-25 19:42 | XMS_ITS | Encounter Summary ---
Author Organization [employer] [facility] Address [address] [facility] 7t [place] [address] Care Team Providers Care Tar Kettle Runner Name Role Phone Gemini Chavez MD Primary Care Provide r Reason for Visit * Reason Comments Med Refill Encounter Details Date Type Department Care Team (Late st Contact Info) Description 06/21/2022 Refill [facility] [address] [place], [place] [phone] Marsha Menjivar MD [address] [place], [place] [phone] Chronic systolic heart failure (CMS/HCC) Social History [...] Description 08/26/2024 11:15 AM EDT Office Visit [facility] [address] [place] [address] Gemini Chavez MD [address] [place] [address] documented as of this encounter Visit Diagnoses Diagnosis Chronic systolic heart failure (CMS/HCC) Chronic systolic heart failure documented in this encounter Additional Health Concerns Assessment Noted Time PHQ-9 Depression Total Score: 6 05/16/19 23 1:42 PM EST documented as of this encounter Care Teams Tar Kettle Runner Relationship Specialty Start Date End Date Gemini Chavez MD [address] [place] [address] PCP - General Family Medicine 01/21/18 ZANY OX 03/28/24 documented as of this encounter
--- OUTSIDE RECORDS SUMMARY | 2024-08-25 19:42 | XMS_ITS | Encounter Summary ---
Author Organization [employer] Address [address] 7t [place] [address] Care Team Providers Care Library Manager Name Role Phone Gemini Chavez MD Primary Care Provide r Encounter Details Date Type Department Care Team (Late st Contact Info) Description 02/19/2023 Abstract [facility] [address] [place], [place] [phone] Gemini Chavez MD [address] [place], [place] [phone] Social History Tobacco Use Types Packs/Day Years [...] Description 08/26/2024 11:15 AM EDT Office Visit [facility] [address] [place] [address] Gemini Chavez MD [address] [place] [address] documented as of this encounter Visit Diagnoses Not on filedocumented in this encounter Additional Health Concerns Assessment Noted Time PHQ-9 Depression Total Score: 6 05/16/19 23 1:42 PM EST documented as of this encounter Care Teams Library Manager Relationship Specialty Start Date End Date Gemini Chavez MD [address] [place] [address] PCP - General Family Medicine 01/21/18 [employer] 03/28/24 documented as of this encounter
--- OUTSIDE RECORDS SUMMARY | 2024-08-25 19:42 | XMS_ITS | Clinical Summary ---
Author Organization [employer] Address [address] [place] [address] 7t [place] [address] Care Team Providers Care Tallow Pumper Name Role Phone Gemini Chavez MD Primary [...] ANAPHYLAXIS AND CALL 911 2022 Active Creon 59349-872101 units capsule delayed-release particles capsule Take 2 capsules by mouth 4 times daily. ADMINISTER WITH MEALS AND/OR SNACKS 2022 Active Fluticasone-Salmetero l 250-50 MCG/ACT aerosol powder Inhale 1 puff 2 times daily. 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 INSPECTOR hours Preop examination 02/13/2023 Assessment & Plan [...] ideally next day of procedure--I called his purchasing/receiving-Dr Ely's # [phone] office and spoke w CLIFF rodriguez with [...] 08/23/2024 10:30 AM EDT Clinical Support [facility] [address] [place] [phone] Maritza Rivera RN Hypertension, unspecified type [I10] 08/23/2024 Travel 08/10/2024 Orders Only GENERIC EXTERNAL DATA DEPARTMENT Provider, Generic External Data 08/09/2024 9:00 AM EDT Office Visit [facility] [address] [place] [address] Rivas Hurst MD Benign paroxysmal positional vertigo, unspecified laterality (Primary Dx); Chronic left shoulder pain; Hypertension, unspecified type 08/06/2024 Refill [facility] [address] [place] [address] Gemini Chavez MD Acquired hypothyroidism 08/04/2024 Refill [facility] [address] [place] [address] Gemini Chavez MD Hypertension, essential 07/29/2024 Telephone [facility] [address] [place] [phone] Gemini Chavez MD ER Follow-up 07/28/[address] [address] Gemini Chavez MD Prior Authorization ( [place] Request: [employer]) 07/26/2024 Refill [facility] [address] [place] [phone] Gemini Chavez MD 07/22/2024 11:00 AM EDT Office Visit [address] [address] Gemini Chavez MD Precordial pain (Primary Dx); Class 1 obesity due to excess calories with serious comorbidity and body mass index (BMI) of 33.0 to 33.9 in adult 07/22/2024 Orders Only GENERIC EXTERNAL DATA DEPARTMENT Provider, Generic External Data 07/22/2024 Travel 07/15/2024 Refill [facility] [address] [address] Gemini Chavez MD 07/15/2024 Patient Outreach [address] [address] Gemini Chavez MD Pre-visit Planning ((Unable to reach for PVP screening, LVM)) 07/12/2024 11:00 AM EST Clinical Support [address] [address] Elyssa Barajas, GAYLE Dietary counseling; Exercise counseling; Primary hypertension 07/12/2024 Travel 07/05/2024 9:00 AM EST Office Visit [facility] [address] [address] Alexandra Knox MD Primary hypertension (Primary Dx); Elevated blood pressure reading 07/02/[address] [address] Gemini Chavez MD Pure hypercholesterolemia 06/18/2024 Orders Only [address] [address] Gemini Chavez MD 06/16/2024 Orders Only [facility] External Provider, [facility] 06/10/[address] [place] [address] Gemini Chavez MD Prior Authorization 06/09/2024 Refill [facility] [address] [place] [address] Gemini Ochoa MD Primary hypertension 06/03/2024 Refill [facility] [address] [place] [address] Gemini Chavez MD from Last 3 Months Immunizations Name Administration [...] 08/26/2024 11:15 AM EDT Office Visit [facility] [address] [place] [address] Gemini Chavez MD [address] [place] [address] Health Maintenance Due Date Last Done Comments [...] Screening 08/09/2025 08/09/2024 Lipid Panel 05/03/2029 05/03/2024, 010 01/2024, 12/13/2022, [...] included. Sodium 144 135 - 145 mmol/L [facility] Potassium 4.0 3.3 - 5.1 mmol/L [facility] Chloride 110(H) 96 - 108 mmol/L [facility] Carbon Dioxide 27 22 - 29 mmol/L [facility] Anion Gap 11(L) 12 - 20 [facility] Urea Nitrogen (BUN) 15 9 - 16 mg/dL [facility] Creatinine, Serum 1.11 0.5 - 1.4 mg/dL [facility] Estimated Glomerular Filt Rate >60 [facility] Comment:Chronic Kidney Disea se: Estimated GFR < 60 mL/min/1.54e5Vkoowv Kidney Disease: Estimated GFR < 15 mL/min/1.73m2 Glucose 100 60 - 115 mg/dL [facility] Calcium 9.1 8.4 - 10.2 mg/dL [facility] 08/10/2024 6:46 AM EDT 08/10/2024 6:46 AM EDT us Generic External Data Provider LAB BLOOD ORDERAB LES Final Result Performing Organization Address City/[facility]/ZIP Co de Phone Number [facility] [address] [place] [phone] * Urinalysis with Reflex to Microscopic (08/10/2024 6:43 AM EDT) Color Urine Yellow [facility] Appearance Urine Clear [facility] PH 5.5 5.0 - 9.0 [facility] Glucose Urine UA Negative Negative mg/dL [facility] Urine Blood Negative Negative [facility] Specific [place] - Urine 1.015 1.005 - 1.025 [facility] Urine Protein Negative Neg-Trace mg/dL [facility] Urine Ketones Trace Negative mg/dL [facility] Nitrite Urine Negative Negative [facility] Leukocyte Esterase Urine Negative Negative [facility] 08/10/2024 6:43 AM EDT 08/10/2024 7:46 AM EDT us Generic External Data Provider LAB URINE ORDERAB LES Final Result Performing Organization Address [facility] Co de Phone Number [facility] [address] [place] [phone] * High Sensitivity Troponin I (07/22/2024 7:40 PM EDT) Only the most recent of4 resultswithin the time period is included. TROPONIN I HIGH SENSITIVITY 3.6 <3.5 - 35.0 ng/L [facility] Comment:The [place] high sens itivity Troponin-I results should beused in conjunction with other diagnostic information suchas ECG, clinical observations and information, and patientsymptoms to aid in the diagnosis of [place]. 07/22/2024 7:40 PM EDT 07/22/2024 7:42 PM EDT us Generic External Data Provider LAB BLOOD ORDERAB LES Final Result [facility] [address] [place] [address] [phone] * ECG 12 lead (07/22/2024 11:21 [...] EST Narrative 06/16/2024 1:02 PM EST ? [facility] ?[address] ?[place] E[place] [address] ?XRay Report ? Signed ? Patient: Min Rees ?MR#: ?? [id number] ? : 1955 ?Acct:[id number] ? Age/Sex: 68 / M ?ADM Date: 02/05/25 ? Loc: HO.ED ? Attending Dr: ? Ordering Physician: Sarah Beth Quinonez ?? Date of Service: 06/16/24 ?? Procedure(s): XR shoulder LT min 2V ?? Accession Number(s): [id number] ? cc: Gemini Chavez MD; Sarah Beth [...] DD/ 1245 ? TD/TT: 06/16/24 1250 ? Pipe Finishing Supervisor: MSM ? Procedure Note Jeancarlos Turcios - 06/16/[address] [address] XRay Report Signed Patient: Min ReesMR#: [id number] : 1955cct:[id number] Age/Sex: 68 / MADM Date: 06/16/24 Loc: HO.ED Attending Dr: Ordering Physician: Sarah Beth Quinonez Date of Service: 06/16/24 Procedure(s): XR shoulder LT min 2V Accession Number(s): [id number] cc: Gemini Chavez MD; Sarah Beth Quinonez [...] 06/16/24 1259 DD/ 1245 TD/TT: 06/16/24 1250 Pipe Finishing Supervisor: [facility] External Provider IMG XR PROCEDURES Edited Result - Final * CT Head w/o Contrast (06/16/2024 9:18 AM EST) Anatomical Region Laterality Modality Head, Neck Computed Tomogra phy 06/16/2024 9:18 AM EST Narrative 06/16/2024 9:52 AM EST ? [facility] ?[address] ?[place] [address] ? CT Scan Report ? Signed ? Patient: Min Rees ?MR#: ?? [id number] ? : 1955 ?Acct:[id number] ? Age/Sex: 68 / M ?ADM Date: 06/16/24 ? Loc: HO.ED ? Attending Dr: ? Ordering Physician: Ysabel Benton NP ?? Date of Service: 06/16/24 ?? Procedure(s): CT head/brain wo IV con ?? Accession Number(s): [id number] ? cc: Gemini Chavez MD; Ysabel Benton NP ? Report Number: ?? [id number]: Total DLP = ??793.00 mGy-cm ?? EXAMINATION: [...] Doherty MD ??06/16/2024 09:49 AM EST RP ?? Workstation: [id number] ? Dictated By: ?Bladimir Doherty MD ? Signed By: ?<Electronically signed by Bladimir Doherty MD in OV> ?06/16/2449 ? DD/ ? TD/TT: 06/16/249[address] ? Pipe Finishing Supervisor: ? Procedure Note Tam, Jeancarlos - 06/16/[address] [address] [address] Scan Report Signed Patient: Min Rees#: [id number] : 6Acct:[id number] Age/Sex: 68 / MADM Date: 06/16/24 Loc: HO.ED Attending Dr: Ordering Physician: Ysabel Benton NP Date of Service: 06/16/24 Procedure(s): CT head/brain wo IV con Accession Number(s): [id number] cc: Gemini Chavez MD; Ysabel Benton NP Report Number: [id number]: Total DLP = 793.00 mGy-cm EXAMINATION: CT [...] MD in OV> 06/16/24 0949 DD/ TD/TT: 06/16/2444 Pipe Finishing Supervisor: [facility] External Provider IMG CT PROCEDURES Edited Result - Final * SARS-CoV-2 RNA, Influenza A/B, and RSV RNA, Ql NAAT (06/16/2024 9:16 AM EST) Influenza A PCR NEGATIVE Negative [facility] Influenza B PCR NEGATIVE Negative [facility] Resp Syncy Virus RNA Qual PCR NEGATIVE Negative [facility] SARS COV2 PCR NEGATIVE Negative [facility] Comment:All test results mus [...] use by authorized laboratories.Testing performed on the [employer] GeneXpert utilizingreal-time RT-PCR.All SARS CoV2 and positive influenza A/B results arereported to [facility]. 06/16/2024 9:16 AM EST 06/16/2024 9:21 AM EST us Generic External Data Provider LAB MICROBIOLOGY - GENERAL ORDERABLES Final Result [facility] [address] [place] [phone] * (ABNORMAL) CBC auto differential (06/16/2024 9:16 AM EST) White Blood Count 6.8 4.8 - 10.8 X10*3/uL [facility] Red Blood Count 3.61(L) 4.60 - 5.80 X10*6/uL [facility] Hemoglobin 11.5(L) 14.0 - 18.0 g/dl [facility] Hematocrit 33.3(L) 42.0 - 52.0 % [facility] Mean Corpuscular Volume 92.2 80.0 - 98.0 fL [facility] Mean Corpuscular Hemoglobin 31.9 27.0 - 33.0 pg [facility] Mean Corpuscular HGB Conc 34.5 31.0 - 36.0 g/dl [facility] Red Cell Distribution Width 12.0 11.0 - 16.0 % [facility] Platelet Count 173 160 - 400 X10*3/uL [facility] Mean Platelet Volume 10.1 9.4 - 12.4 fL [facility] Neutrophils Percent Auto 73.8(H) 45 - 73 % [facility] Imm Gran Pct Auto 0.3 0.0 - 0.4 % [facility] Lymphocytes Percent Auto 14.9(L) 20 - 40 % [facility] Monocytes Percent Auto 10.3 2 - 11 % [facility] Eosinophils Percent Auto 0.4 0 - 4 % [facility] Basophils Percent Auto 0.3 0 - 2 % [facility] NRBC Pct Auto 0.0 0.0 - 0.2 /100WBC [facility] Neutrophils Absolute Auto 5.0 2.0 - 8.3 x10*3/uL [facility] Imm Gran Abs Auto 0.02 0.00 - 0.03 X10*3/uL [facility] Lymphocytes Absolute Auto 1.0(L) 1.2 - 4.9 X10*3/uL [facility] Monocytes Absolute Auto 0.7 0.1 - 1.2 X10*3/uL [facility] Eosinophils Absolute Auto 0.0 0.0 - 0.4 X10*3/uL [facility] Basophils Absolute Auto 0.0 0.0 - 0.2 X10*3/uL [facility] NRBC Abs Auto 0.000 0.0 - 0.012 X10*3/uL [facility] 06/16/2024 9:16 AM EST 06/16/2024 9:21 AM EST us Generic External Data Provider LAB BLOOD ORDERAB LES Final Result [facility] [address] [place] [phone] * (ABNORMAL) Prothrombin Time-INR (06/16/2024 9:16 AM EST) Prothrombin Time 15.5(H) 10.9 - 12.4 SEC [facility] INTERNATIONAL NORM RATIO 1.3(H) 0.9 - 1.1 [facility] Comment:INTERNATIONAL NORMAL IZED RATIO (INR) [...] ORDERAB LES Final Result Performing Organization Address [facility] Co de Phone Number [facility] [address] [place] [phone] * (ABNORMAL) B Type Natriuretic Peptide (BNP) (06/16/2024 9:16 AM EST) B Type Natriuretic Peptide 238(H) <100 pg/mL [facility] Comment:For those patients w ho are being treated with Natrecor(nesiritide, recombinant BNP), BNP testing should beperformed at least two hours post treatment in order toensure that only endogenous levels of BNP are detected. 06/16/2024 9:16 AM EST 06/16/2024 9:21 AM EST us Generic External Data Provider LAB BLOOD ORDERAB LES Final Result Performing Organization Address [facility] Co de Phone Number [facility] [address] [place] [phone] * Lipase (06/16/2024 9:16 AM EST) Lipase 52 8 - 78 U/L [facility] 06/16/2024 9:16 AM EST 06/16/2024 9:21 AM EST us Generic External Data Provider LAB BLOOD ORDERAB LES Final Result Performing Organization Address [facility] Phone Number [facility] [address] [place] [phone] * Hepatic Function Panel (06/16/2024 9:16 AM EST) Bilirubin, Total 0.8 0.0 - 1.0 mg/dL [facility] Bilirubin, Direct 0.3 0.0 - 0.5 mg/dL [facility] Aspartate Amino Transferase 22 5 - 37 U/L [facility] Alanine Aminotransferase 18 0 - 40 U/L [facility] Total Protein 6.5 6.5 - 8.0 g/dL [facility] Albumin Level 3.8 3.5 - 5.0 g/dL [facility] Alkaline Phosphatase 43 39 - 117 U/L [facility] 06/16/2024 9:16 AM EST 06/16/2024 9:21 AM EST Generic External Data Provider LAB BLOOD ORDERAB LES Final Result Performing Organization Address [facility] Phone Number [facility] [address] [place] [phone] * CT Cervical Spine w/o Contrast (06/16/2024 9:08 AM EST) Anatomical Region Laterality Modality Spine, C-spine Computed Tomogra phy 06/16/2024 9:08 AM EST Narrative 06/16/2024 9:58 AM EST ? [facility] ?[address] ?[place] [address] ? CT Scan Report ? Signed ? Patient: Davonte Cano,Min ?MR#: ?? [id number] ? : 1955 ?Acct:[id number] ? Age/Sex: 68 / M ?ADM Date: 02/05/25 ? Loc: HO.ED ? Attending Dr: ? Ordering Physician: Ysabel Benton NP ?? Date of Service: 06/16/24 ?? Procedure(s): CT cervical spine wo IV con ?? Accession Number(s): [id number] ? cc: Gemini Chavez MD; Ysabel Benton NP ? Report Number: ?? [id number]: Total DLP = ??436.00 mGy-cm ?? EXAMINATION: [...] DD/ 0908 ? TD/TT: 06/16/24 0944 ? Pipe Finishing Supervisor: ? Procedure Note Donotuseinterpreter, Image - 06/16/[address] [place] [address] [address] Scan Report Signed Patient: Min ReesMR#: [id number] : 6Acct:[id number] Age/Sex: 68 / MADM Date: 06/16/24 Loc: HO.ED Attending Dr: Ordering Physician: Ysabel Benton NP Date of Service: 06/16/24 Procedure(s): CT cervical spine wo IV con Accession Number(s): [id number] cc: Gemini Chavez MD; Ysabel Benton NP Report Number: [id number]: Total DLP = 436.00 mGy-cm EXAMINATION: CT [...] 06/16/24 0956 DD/ 0908 TD/TT: 06/16/24 0944 Pipe Finishing Supervisor: [facility] External Provider IMG CT PROCEDURES Edited Result - Final * XR Chest 1 View (06/16/2024 8:45 AM EST) Anatomical Region Laterality Modality Chest Radiographic Claire ging 06/16/2024 8:45 AM EST Narrative 06/16/2024 9:05 AM EST ? [place] [facility] ?[address] ?[place] [address] ?XRay Report ? Signed ? Patient: Davonte Cano,Min ?MR#: ?? [id number] ? : 1955 ?Acct:[id number] ? Age/Sex: 68 / M ?ADM Date: 06/16/24 ? Loc: HO.ED ? Attending Dr: ? Ordering Physician: Generic ED Physician ?? Date of Service: 06/16/24 ?? Procedure(s): XR chest 1V ?? Accession Number(s): [id number] ? cc: Gemini Chavez MD; Generic ED [...] DD/ 0845 ? TD/TT: 06/16/24 0850 ? Pipe Finishing Supervisor: ? Procedure Note Jeancarlos Turcios - 06/16/[address] [address] XRay Report Signed Patient: Min Rees#: [id number] : 6Acct:[id number] Age/Sex: 68 / MADM Date: 06/16/24 Loc: HO.ED Attending Dr: Ordering Physician: Generic ED Physician Date of Service: 06/16/24 Procedure(s): XR chest 1V Accession Number(s): [id number] cc: Gemini Chavez MD; Generic ED Physician [...] signed by Valentin Ruelas MDin OV> 06/16/24 09 DD/ 0845 TD/TT: 06/16/24 0850 Pipe Finishing Supervisor: [facility] External Provider IMG XR PROCEDURES Edited Result - Final * (ABNORMAL) Lipid Panel, Standard (05/03/2024 8:15 AM EST) Triglycerides 230(H) <150 mg/dL [facility] Comment:Desirable Triglyceri de: less than 150 mg/dLBorderline High Triglyceride 150-199 mg/dLHigh Triglyceride: 200-499 mg/dLVery High Triglyceride: greater than or equal to 5OO mg/dL Cholesterol 118 <200 mg/dL [facility] Comment:Desirable Cholestero l: less than 200 mg/dLBorderline High Cholesterol: 200-239 mg/dLHigh Cholesterol: greater than 239 mg/dL LDL Cholesterol Calculated 41 <100 mg/dL [facility] Comment:Desirable LDL: less than 100 mg/dLNear Optimal/Above Optimal LDL: 110- 129 mg/dLBorderline High LDL: 130-159 mg/dLHigh LDL: 160-189 mg/dLVery High LDL: greater than or equal to 190 mg/dL HDL Cholesterol 31(L) >40 mg/dL [facility] Comment:Desirable HDL: great er than 40 mg/dL Note: This HDL assay may give artificially low results in patients with liver disease. Blood Venous blood specimen / Unknown 05/03/2024 8:15 AM EST 05/03/2024 11:40 AM EST Gemini Chung MD LAB BLOOD ORDERABLES Final Result [facility] [address] [place] [address] [phone] * Hm Colonoscopy (01/21/2024 10:19 AM EDT) Colonoscopy Normal Normal Narrative Jamila Page - 01/21/2024 10:19 AM EDT Repeat Colonoscopy in 6-12 months due to poor right prep or earlier if clinically indicated see external hospital admission note on 01/21/2024 Bryon Arroyo MD HEALTH MAINTENANCE Edited Result - Final * (ABNORMAL) POCT HGB A1C (11/11/2023 11:12 AM EDT) Hemoglobin A1C 6.4(A) 4.0 - 6.0 % QC Media Lot # [id number] Lot# Expiration Date ,[id number] Blood 11/11/2023 11:1 2 AM EDT Gemini Chung MD POINT OF CARE TEST EN TER/EDIT ORDERABLES Final Result * Hepatitis C Antibody Reflex (12/13/2022 8:21 AM EDT) Hepatitis C Antibody Nonreactive Nonreactive [facility] Comment:Antibodies to HCV no t detected; does not exclude early acuteHCV infection. 12/13/2022 8:21 AM EDT 12/13/2022 11:08 AM EDT Gemini Chung MD LAB BLOOD ORDERABLES Final Result Performing Organization Address [facility]/ZIP Co de Phone Number [facility] [address] [place] [address] [phone] from Last 3 Months or Most Recently Relevant to Health Maintenance Insurance [facility] [employer] Member Subscriber Plan / Payer (Ef fective 2022-Present) Name:Min Rees Relation to Subscriber:Self Name:Min Rees Payer ID:Not on file Group ID:[id number] Type:Not on file Address: [address] ALF OPT[employer] (HMO D-SNP) [facility] [address] [place] [address] Care Teams Tallow Pumper Relationship Specialty Start Date End Date Gemini Chavez MD [address] [place] [address] PCP - General Family Medicine 01/21/18 [employer] 03/28/24
--- OUTSIDE RECORDS SUMMARY | 2024-08-25 19:42 | XMS_ITS | Encounter Summary ---
Author Organization [employer] Address [address] [facility] 7t [place] [address] Care Team Providers Care Chief Solution Architect Name Role Phone Gemini Chavez MD Primary Care Provide r Reason for Visit * Reason Onset Date Comments Prior Authorization 06/10/2024 Encounter Details Date Type Department Care Team ([facility] st Contact Info) Description 06/10/2024 Telephone [facility] MEDICINE [address] [place], [place] [phone] Gemini Chavez MD [address] [place] [address] Prior Authorization Social History Tobacco Use Types [...] is required on PA. Contact pt at [phone] (omani) * Telephone Encounter - Rohit Cruz - 06/10/2024 9:00 AM EST Tc from pt requesting a PA for Tirzepatide-Weight Management (Zepbound) 2.5 MG/0.5ML solution auto-injector because pt stated that he received a letter stating that PA got denied. Contact pt: [phone] ([place] Citizen) documented in this encounter Plan of Treatment Upcoming Encounters Date Type Department Care Team (Late st Contact Info) Description 08/26/2024 11:15 AM EDT Office Visit [facility] MEDICINE [address] [place], [place] [phone] Gemini Chavez MD [address] [place] [address] documented as of this encounter Visit Diagnoses Not on filedocumented in this encounter Additional Health Concerns Assessment Noted Time PHQ-9 Depression Total Score: 0 09/03/19 9:55 AM EDT documented as of this encounter Care Teams Chief Solution Architect Relationship Specialty Start Date End Date Gemini Chavez MD [address] [place] [id number] PCP - General Family Medicine 01/21/18 [employer] 03/28/24 documented as of this encounter
--- OUTSIDE RECORDS SUMMARY | 2024-08-25 19:42 | XMS_ITS | Encounter Summary ---
Author Organization [employer] Address [address] [facility] 7t [place] [address] Care Team Providers Care Internal Medicine Specialist Name Role Phone Gemini Chavez MD Primary Care Provide r Reason for Visit * Reason Comments Med Change Request Encounter Details Date Type Department Care Team ([facility] st Contact Info) Description 02/04/2023 Refill [facility] CHC MED & PEDS [address] [place], [place] [phone] Marsha Menjivar MD [address] [place] [address] Primary hypertension Social History Tobacco Use Types [...] - 03/03/2023 11:46 AM EDT Sent to [employer] * Telephone Encounter - Jacqueline [...] Description 08/26/2024 11:15 AM EDT Office Visit [facility] MEDICINE [address] [place] [address] Gemini Chavez MD [address] [place] [address] documented as of this encounter Visit Diagnoses Diagnosis Primary hypertension Unspecified essential hypertension documented in this encounter Additional Health Concerns Assessment Noted Time PHQ-9 Depression Total Score: 6 05/16/19 23 1:42 PM EST documented as of this encounter Care Teams Internal Medicine Specialist Relationship Specialty Start Date End Date Gemini Chavez MD [address] [place] [address] PCP - General Family Medicine 01/21/18 [employer] 03/28/24 documented as of this encounter
--- OUTSIDE RECORDS SUMMARY | 2024-08-25 19:42 | XMS_ITS | Encounter Summary ---
Author Organization [employer] [facility] Address [address] [facility] 7t [place] [address] Care Team Providers Care Recycling Collections Driver Name Role Phone Gemini Chavez MD Primary Care Provide r Reason for Visit * Reason Comments Med Change Request Encounter Details Date Type Department Care Team (Late st Contact Info) Description 01/08/2023 Refill [facility] MEDICINE [address] [place], [place] [phone] Marsha Menjivar MD [address] [place], [place] [phone] Chronic obstructive pulmonary disease, unspecified COPD type [...] generated for Nebulizer signed and faxed to [facility]. documented in this encounter Plan of Treatment Upcoming Encounters Date Type Department Care Team (Late st Contact Info) Description 08/26/2024 11:15 AM EDT Office Visit [facility] MEDICINE [address] [place] [address] Gemini Chavez MD [address] [place] [address] documented as of this encounter Visit Diagnoses Diagnosis Chronic obstructive pulmonary disease, unspecified COPD type (CMS/HCC) documented in this encounter Additional Health Concerns Assessment Noted Time PHQ-9 Depression Total Score: 6 05/16/19 23 1:42 PM EST documented as of this encounter Care Teams Recycling Collections Driver Relationship Specialty Start Date End Date Gemini Chavez MD [address] [place] [address] PCP - General Family Medicine 01/21/18 [employer] 03/28/24 documented as of this encounter
--- OUTSIDE RECORDS SUMMARY | 2024-08-25 19:42 | XMS_ITS | Encounter Summary ---
Author Organization [employer] Address [address] [facility] 7t [place] [address] Care Team Providers Care Miter Operator Name Role Phone Gemini Chavez MD Primary Care Provide r Reason for Visit * Reason Onset Date Comments Nurse Triage 03/26/2023 Encounter Details Date Type Department Care Team ([facility] st Contact Info) Description 03/26/2023 Telephone [facility] MEDICINE [address] [place], [place] [phone] Gemini Chavez MD [address] [place] [address] Nurse Triage Social History Tobacco Use Types [...] t he electric, gas, oil or water [employer] threatened to shut off services in your [...] 03/26/2023 11:47 AM EST Triage call with Potter [employer] [place] [id number] Pt reports ingrown toenail great toe on left foot for 3 days now. Pt reports it is painful and causes some limping when ambulating. Pt denies redness, drainage. Pt requests a referral to golf cart assembler which was very helpful last time this happened. Pt is advised will send this request to PCP and nursing team for follow up and Pt agreed. Pt declined to come to [facility] only wants golf cart assembler to cut this toenail. Protocol Used: Information [...] accepted this outcome Please contact pt at [phone] (tennis camp instructor needed) documented in this encounter Plan of Treatment Upcoming Encounters Date Type Department Care Team ([facility] st Contact Info) Description 08/26/2024 11:15 AM EDT Office Visit [facility] MEDICINE [address] [place] [address] [phone] Gemini Chavez MD [address] [place], [place] [phone] documented as of this encounter Visit Diagnoses Not on filedocumented in this encounter Additional Health Concerns Assessment Noted Time PHQ-9 Depression Total Score: 6 05/16/19 23 1:42 PM EST documented as of this encounter Care Teams Miter Operator Relationship Specialty Start Date End Date Gemini Chavez MD [address] [place] [address] PCP - General Family Medicine 01/21/18 [employer] 03/28/24 documented as of this encounter
--- OUTSIDE RECORDS SUMMARY | 2024-08-25 19:42 | XMS_ITS | Encounter Summary ---
Author Organization [employer] Address [address] [facility] 7t [place] [address] Care Team Providers Care Cafe Helper Name Role Phone Gemini Chavez MD Primary Care Provide r Reason for Visit * Reason Comments Med Refill Encounter Details Date Type Department Care Team ([facility] st Contact Info) Description 02/12/2024 Refill [facility] MEDICINE 230 [place], [place] [phone] Gemini Chavez MD 230 [place] [address] Prediabetes Social History Tobacco Use Types Packs/Day [...] Description 08/26/2024 11:15 AM EDT Office Visit [facility] MEDICINE [address] [place] [address] Gemini Chavez MD 230 [place] [address] documented as of this encounter Visit Diagnoses Diagnosis Prediabetes Other abnormal glucose documented in this encounter Additional Health Concerns Assessment Noted Time PHQ-9 Depression Total Score: 0 09/03/19 9:55 AM EDT documented as of this encounter Care Teams Cafe Helper Relationship Specialty Start Date End Date Gemini Chavez MD [address] [place] [address] PCP - General Family Medicine 01/21/18 [employer] 03/28/24 documented as of this encounter
--- OUTSIDE RECORDS SUMMARY | 2024-08-25 19:42 | XMS_ITS | Encounter Summary ---
Author Organization [employer] Address [address] [facility] 7t [place] [address] Care Team Providers Care Policy Cancellation Clerk Name Role Phone Gemini Chavez MD Primary Care Provide r Encounter Details Date Type Department Care Team (Late st Contact Info) Description 07/10/2023 Orders Only [facility] MEDICINE 230 [place], [place] [phone] Gemini Chavez MD [address] [place], [place] [phone] Mixed stress and urge urinary incontinence (Primary [...] the past 12 months, has t he [employer], [employer], oil or water company threatened to shut [...] Description 08/26/2024 11:15 AM EDT Office Visit [facility] MEDICINE [address] [place] [address] Gemini Chavez MD [address] [place] [address] documented as of this encounter Visit Diagnoses Diagnosis Mixed stress and urge urinary incontinence- Primary Mixed incontinence urge and stress (male)(female) documented in this encounter Additional Health Concerns Assessment Noted Time PHQ-9 Depression Total Score: 6 05/16/19 23 1:42 PM EST documented as of this encounter Care Teams Policy Cancellation Clerk Relationship Specialty Start Date End Date Gemini Chavez MD [address] [place] [address] PCP - General Family Medicine 01/21/18 [employer] 03/28/24 documented as of this encounter
--- OUTSIDE RECORDS SUMMARY | 2024-08-25 19:42 | XMS_ITS | Encounter Summary ---
Author Organization [employer] [facility] Address [address] [facility] 7t [place] [address] Care Team Providers Care Supervisor Special Education Name Role Phone Gemini Chavez MD Primary Care Provide r Reason for Visit * Reason Comments Med Refill Encounter Details Date Type Department Care Team (Late st Contact Info) Description 09/08/2022 Refill [facility] CHC MED & PEDS [address] [place], [place] [phone] Umer Sears MD [address] [place], [place] [phone] Seasonal allergies Social History Tobacco Use Types [...] Description 08/26/2024 11:15 AM EDT Office Visit [facility] MEDICINE 230 [place], [place] [phone] Gemini Chavez MD [address] [place], [place] [phone] documented as of this encounter Visit Diagnoses Diagnosis Seasonal allergies Allergic rhinitis, cause unspecified documented in this encounter Additional Health Concerns Assessment Noted Time PHQ-9 Depression Total Score: 6 05/16/19 23 1:42 PM EST documented as of this encounter Care Teams Supervisor Special Education Relationship Specialty Start Date End Date Gemini Chavez MD [address] [place] [address] PCP - General Family Medicine 01/21/18 [employer] 03/28/24 documented as of this encounter
--- OUTSIDE RECORDS SUMMARY | 2024-08-25 19:42 | XMS_ITS | Encounter Summary ---
Author Organization [employer] [facility] Address [address] [facility] 7t [place] [address] Care Team Providers Care Mobile Home Set Up Person Name Role Phone Gemini Chavez MD Primary Care Provide r Encounter Details Date Type Department Care Team (Late st Contact Info) Description 01/22/[address] [facility] MEDICINE [address] [place], [place] [phone] Gemini Chavez MD [address] [place], [place] [phone] COPD with asthma ([facility]) Social History Tobacco Use Types [...] AM EDT Office Visit [facility] MEDICINE [address] [place] [phone] Gemini Chavez MD [address] [place], [place] [phone] documented as of this encounter Visit Diagnoses Diagnosis COPD with asthma ([facility]) documented in this encounter Additional Health Concerns Assessment Noted Time PHQ-9 Depression Total Score: 6 05/16/19 23 1:42 PM EST documented as of this encounter Care Teams Mobile Home Set Up Person Relationship Specialty Start Date End Date Gemini Chavez MD [address] [place] [address] PCP - General Family Medicine 01/21/18 [employer] 03/28/24 documented as of this encounter
--- OUTSIDE RECORDS SUMMARY | 2024-08-25 19:42 | XMS_ITS | Encounter Summary ---
Author Organization [employer] Address [address] [facility] 7t [place] [address] Care Team Providers Care Inpatient Services Rn Name Role Phone Gemini Chavez MD Primary Care Provide r Reason for Visit * Reason Onset Date Comments Referral 03/14/2023 Encounter Details Date Type Department Care Team ([facility] st Contact Info) Description 03/14/2023 Telephone [facility] MEDICINE 230 [place], [place] [phone] Gemini Chavez MD [address] [place] [address] Referral Social History Tobacco Use Types Packs/Day [...] 08/26/2024 11:15 AM EDT Office Visit [facility] MEDICINE [address] [place] [address] Gemini Chavez MD [address] [place] [address] documented as of this encounter Visit Diagnoses Not on filedocumented in this encounter Additional Health Concerns Assessment Noted Time PHQ-9 Depression Total Score: 6 05/16/19 23 1:42 PM EST documented as of this encounter Care Teams Inpatient Services Rn Relationship Specialty Start Date End Date Gemini Chavez MD [address] [place] [address] PCP - General Family Medicine 01/21/18 [employer] 03/28/24 documented as of this encounter
--- OUTSIDE RECORDS SUMMARY | 2024-08-25 19:42 | XMS_ITS | Data Portability ---
Author Organization [employer], [place] - [employer] Address [address] [place] [address] Care Team Providers Care Belly Packer Name Role Phone TALIB MARTINEZZEDWIN RONALDO Primary Care Provider [phone] HIM [facility] OTHER [facility] OTHER [phone] Assessment Encounter Date Assessment Date Assessment LastModified [...] assessment and plan as documented by the systems test technician. I provided real time medical direction for this encounter and was immediately available to provide additional phone based assistance as needed. History as noted by systems test technician. Pt with history of afib on apixaban, [...] be transported via 911 ambulance to the [facility] and I give a pt expect to the ED tension machine operator as well. [email or web address] Not available 03/20/2024 18:19:28 04/21/2024 04/21/2024 I provided real -time medical direction via phone for this encounter and was available for additional phone-based assistance as needed. I have reviewed and agree with the Assessment and Plan as documented by the Station Jailer. Patient given the opportunity to ask questions. [...] pressure. No change in functional status. Per systems test technician on the scene, vital signs are stable [...] Assessment and Plan as documented by the Station Jailer. We discussed the diagnostic uncertainty of home [...] to call 911- verbalized understanding of instruction [email or web address] Not available 04/27/2024 20:25:46 Plan of Treatment Reminders Order Date Submit Date Provider Last Modified By Organization Details Last Modified Time Details Appointments None recorded. Lab rapid SARS CoV 2 Ag, QL IA, respiratory specimen 2023 024 [email or web address] [facility] - [facility], [address] [place] [address], [address] [place] [address] 4 20:24:15 rapid flu (A+B) 2023 024 [email or web address] 0 [facility] - [facility], [address] [place] [address], [id number] 4 20:24:15 BMP, serum or plasma 2023 024 [email or web address] 0 [facility] - [facility], [address] [place] [address], [address] 4 20:24:15 rapid flu (A+B) 2023 024 [email or web address] Main - [facility], [address] [place] [address], [address] 4 10:38:31 rapid SARS CoV 2 Ag, QL IA, respiratory specimen 2023 024 [email or web address] [facility] - [facility], [address] [place] [address], [address] 4 10:38:31 Referral None recorded. Procedures None recorded. Surgeries None recorded. Imaging electrocard iogram 2023 024 [email or web address] 0 [facility] - [facility], [address] [place] [address], [address] 4 20:24:15 electrocard iogram 2023 024 [email or web address] Main - [facility], [address] [place] [address], [address] 4 18:36:07 electrocard iogram 2023 024 [email or web address] Main - [facility], [address] [place] [address], [address] 4 14:50:34 Medication Orders fluticasone propionate 50 mcg/actuati on nasal spray,suspe nsion 2023 024 [facility] [address] [place], [address], 4 12:56:56 Saline Nasal 0.65 % spray aerosol 2023 024 [facility], [address] [place], [address], 4 12:56:56 amoxicillin 500 mg capsule 2023 024 [facility] [address] [place], [address], 4 12:56:55 sodium chloride 0.9 % intravenous solution 2023 024 [email or web address] 0 [facility] [address] [place], [address], 4 20:24:15 prednisone 20 mg tablet 2023 024 [facility]/Pharmacy #2071, [address] [place], [address], 4 10:38:33 prednisone 20 mg tablet 2023 024 [email or web address] [facility]/Pharmacy #5926, [address] [place], [address], 4 10:38:31 Patient TargetsNo targets recorded. Patient Instructions Encounter Date Encounter Id Patient Instructions Last Modified By Organization Details Last Modified Time 03/31/2024 [id number] orthostatic vitals* [email or web address] Not available 03/31/2024 18:21:41 Reason for Referral None Reported. Results Created Date Observation Date Name Description Value Unit Range Abnormal Flag Note LastModifiedBy Organization Detail LastModifiedTime 04/21/20 24 04/21/2024 rapid SARS CoV 2 Ag, QL IA, respi rator y speci men rapid SARS CoV 2 Ag, QL IA, respiratory specimen negati ve Not Available [facility] - [facility] ed [address] [place] [address], [address] 04/21/2024 10:37:26 04/21/20 24 04/21/2024 rapid flu (A+B) Flu negati ve Not Available Main - [facility] ed [address] [place] [address], [address] 04/21/2024 10:37:25 04/27/20 24 04/27/2024 rapid flu (A+B) Flu negati ve Not Available [facility] - [facility] ed [address] [place] [address], [address] 04/27/2024 12:57:09 04/27/20 24 04/27/2024 rapid SARS CoV 2 Ag, QL IA, respi rator y speci men rapid SARS CoV 2 Ag, QL IA, respiratory specimen negati ve Not Available Main - [facility] ed [address] [place] [address], [address] 04/27/2024 12:57:08 03/20/20 24 03/20/2024 elect rocar diogr am No observ ation record ed. [email or web address] Main - [facility] [address] [place] [address], [address] 03/20/2024 14:50:32 03/31/20 24 03/31/2024 elect rocar diogr am No observ ation record ed. gbaci Main - [facility] [address] [place] [address], [address] 03/31/2024 18:36:06 04/27/20 24 04/27/2024 elect starr tinajerogr am No observ ation record ed. [email or web address] [address], [address] 04/27/2024 20:22:51 Result Notes None recorded. Procedures Surgical History None recorded. Imaging Results Imaging Date Name Status LastModified by Organization Details LastModified Time 03/20/2024 electrocardiogram completed [email or web address] [facility] [address] [place] [address], [address] 03/20/2024 14:50:32 03/31/2024 electrocardiogram completed [email or web address] Main - [address], [address] 03/31/2024 18:36:06 04/27/2024 electrocardiogram completed [email or web address] [facility] [address] [place] [address], [address] 04/27/2024 20:22:51 Procedure Notes None recorded. Medical [...] /min 162.56 cm 96 % 96 % 302283. 16 g 16 /min 121 mm[Hg] 87 mm[Hg] Not Available [email or web address] 4 21:44:22 Date Recorded Heart rate Respiratory rate Body temperature Oxygen saturation Oxygen saturation in Arterial blood by Pulse oximetry Systolic blood pressure Diastolic blood pressure Systolic blood pressure Diastolic blood pressure Provider Name and Address Organization Details Last Updated DateTime 4 105 /min 16 /min 98.7 [degF] 95 % 95 % 114 mm[Hg] 81 mm[Hg] 85 mm[Hg] 51 mm[Hg] Not Available [employer] 4 14:41:24 Date Recorded Respiratory rate Heart rate Body weight Body temperature Oxygen saturation Oxygen saturation in Arterial blood by Pulse oximetry Heart rate Respiratory rate Systolic blood pressure Diastolic blood pressure Systolic blood pressure Diastolic blood pressure Provider Name and Address Organization Details Last Updated DateTime 4 16 /min 74 /min 61247.4 4 g 98.3 [degF] 98 % 98 % 84 /min 20 /min 114 mm[Hg] 84 mm[Hg] 120 mm[Hg] 86 mm[Hg] Not Available [facility] 4 18:31:50 Date Recorded Oxygen saturation Oxygen saturation in Arterial blood by Pulse oximetry Body temperature Respiratory rate Heart rate Systolic blood pressure Diastolic blood pressure Provider Name and Address Organization Details Last Updated DateTime 4 98 % 98 % 98.1 [degF] 20 /min 95 /min 150 mm[Hg] 100 mm[Hg] Not Available [employer] 4 11:24:31 Date Recorded Body height Body mass index (BMI) Body weight Provider Name and Address Organization Details Last Updated DateTime 04/27/2024 162.56 cm 33.5 kg/m2 60951.51 g Davina Garner MD [address] [facility],[address] [facility], [place], [address], [place] - [employer] 04/27/2024 20:03:55 Social History None recorded. Functional Status None recorded. Mental Status None recorded. Family History Nothing Reported. Medical History No medical history recorded. Past Encounters Encounter ID Performer Location Encounter Start Date Encounter Closed Date Diagnosis/Indication Diagnosis SNOMED-CT Code Diagnosis ICD10 Code Diagnosis Note [id number] Allison Newman MD [facility] [address] [place] [phone] 04/11/2022 18:32:13 04/15/2022 15:46:34 Cough 71626144 R05.9 [id number] Davina Garner MD [facility] [address] [place] [phone] 01/07/2023 14:14:00 01/07/2023 22:56:53 Essential hypertension 83244606 I10 Patient exam is benign. Patient reassured/ his blood pressure is normal when taken with the medic cough. The medic measured the patient's blood pressure with his 5-year-old home machine and got 135/112 thus it is the patient's machine that is giving erroneous readingsNo te sent to [facility] to reach out to the intensive care medicine specialist to assist the patient in obtaining a new home blood pressure monitor. Advised to continue all his regular medication s and follow-up with his PCP as needed [id number] Davina Garner MD Main - [facility] [address] [place] [phone] 01/08/2023 15:21:28 01/08/2023 23:59:09 Viral upper respiratory tract infection 918003572 J06.9 And viral pharyngiti s-advised to gargle [...] pcp. Sandra Bloom MD [facility] - [facility] [address] [place] [phone] 06/23/2023 18:11:30 06/24/2023 10:34:59 Dizziness 527087778 R42 [id number] Marlyn Casas MD Main - [facility] [address] [place] [phone] 08/05/2023 10:57:00 08/05/2023 16:00:41 Asthma 293831699 J45.909 Exacerbati on of moderate persistent asthma 436125622 J45.41 [id number] Eric Israel MD Main - [facility] [address] [place] [phone] 08/13/2023 12:51:38 08/13/2023 20:11:05 Acute exacerbation of chronic obstructive pulmonary disease 437215837 J44.1 The patient has a flare-up of his COPD. He will continue his current treatments . [id number] Eric Israel MD [facility] - [facility] [address] [place] [id number] 11/14/2023 12:02:23 11/14/2023 21:31:15 Vertigo 272673734 R42 This 67-year-ol d male with a past history of vertigo developed mild vertigo today. He has taken Meclizine in the past with good relief. I ordered Meclizine 50 mg now. He will follow-up with his PCP if the vertigo persists. The patient agreed with this plan. [id number] Thomas Lyon MD [facility] [address] [place] [phone] 11/27/2023 21:44:10 11/28/2023 10:18:17 Headache 05800840 R51.9 [id number] Jeancarlos Gonsales MD [facility] - [facility] [address] [place] [phone] 03/20/2024 14:41:13 03/22/2024 13:41:42 Orthostatic hypotension 26500634 I95.1 Atrial fibrillation 4943 6004 I48.91 [id number] RENU MARIE MD [facility] [address] [place] [phone] 03/31/2024 18:19:08 04/01/2024 11:10:35 Dizziness 561051512 R42 Evaluation in the field was performed by my systems test technician colleague, as noted above, I provided real-time [...] , palpitatio ns or any other concerns. [id number] Marlyn Casas MD [facility] - [facility] [address] [place] [id number] 04/21/2024 10:14:37 04/22/2024 00:16:20 Asthma-chronic obstructive pulmonary disease overlap syndrome 9199230994 2183647 J44.9 Viral uppe r respiratory tract infection 638963409 J06.9 [id number] Davina Garner MD Main - [facility] [address] [place] [phone] 04/27/2024 11:24:18 04/27/2024 22:19:18 Headache 33357247 R51.9 w/ dizziness- possibly sinusitisS lightly less [...] Young Member ID Guarantor Name 11/27/2023 1 [facility] - DOS ON OR AFTER 2022 - DUAL ELIGIBLE - LONGTERM OPTIONS AND ONE CARE (MEDICARE REPLACEMENT/AD VANTAGE - HMO) Min Arauz [id number] Min Arauz 03/20/2024 1 [facility] - DOS ON OR AFTER 2022 - DUAL ELIGIBLE - LONGTERM OPTIONS AND ONE CARE (MEDICARE REPLACEMENT/AD VANTAGE - HMO) Min Arauz [id number] Min Arauz 03/31/2024 1 [facility] - DOS ON OR AFTER 2022 - DUAL ELIGIBLE - LONGTERM OPTIONS AND ONE CARE (MEDICARE REPLACEMENT/AD VANTAGE - HMO) Min Arauz [id number] Min Arauz 04/21/2024 1 [facility] C[facility] - DOS ON OR AFTER 2022 - DUAL ELIGIBLE - LONGTERM OPTIONS AND ONE CARE (MEDICARE REPLACEMENT/AD VANTAGE - HMO) Min Arauz [id number] Min Arauz 04/27/2024 1 [facility] ALLIANCE - DOS ON OR AFTER 2022 - DUAL ELIGIBLE - LONGTERM OPTIONS AND ONE CARE (MEDICARE REPLACEMENT/AD VANTAGE - HMO) Min Arauz [id number] Min Arauz Notes Date Note Type Note Provider Name and Address Organization Details Recorded Time 11/27/2023 text/html [facility] Nurse Triage Notes (Padmini [place]): Reason For Request: high BP Chief Complaints: Hypertension PMH: COPD/Asthma, Hypertension, CHF, Heart Disease, Diabetes Allergies: No Known Comments: Referral taken via [employer] [id number]. Member with elevated BP, 153/112 and 156/120, took his HS medications. Member with headache and dizziness, denies chest pain, mild sob, but is not new, denies any arm or jaw pain, no numbness, tingling or weakness anywhere. Member would like to be evaluated. ...................... ...................... ...................... ...................... ...................... ...................... ......... Station Jailer Note From Pradeep Rainey: Smart[employer] visit for [...] afib, no other significant findings. Consulted with [facility]. Lyon who advised pt should take another 500mg tylenol. Reviewed red flags for ED. Patient education provided. ...................... ...................... ...................... ...................... ...................... ...................... ......... Disposition: Fulfilled Thomas Lyon MD [address] [facility],[address], [place], [address], [employer] ErenisJANICE ARANA 11/27/2023 23:06:36 03/20/2024 text/html This was a super vised home visit with systems test technician Rivas Thapa. [facility] Nurse Triage Notes (Dov Lainez): Reason For Request: Patient was dizzy, fell, and hurt himself, possibly bp problems - Chief Complaints: Dizziness PMH: COPD/Asthma, Hypertension, Congestive Heart Failure, Coronary Artery Disease, Gastroesophageal Reflux Disease (GERD) Comments: Credit Union Examiner verified the Pt.'s name//address and phone number. [...] Concerns expressed - PT declines ER treatment. Station Jailer Organization Information for Rivas Thapa - CH[employer]IS[employer]emerson Legal Name: [facility] Transportation Address: [address] [place] [address], [place] [address], Cloth Coverer: Byron Mauro MD [facility] No.: [id number] Station Jailer POC Test Results from Rivas Thapa - CHRIS EKG (14:32:21) EKG test performed. Attachments uploaded as part of this test result can be found under Documents section. ...................... ...................... ...................... ...................... ...................... ...................... ......... Station Jailer Note From Rivas Thapa: This 68-year-old male [...] No lower extremity edema. EKG uploaded, a-fib. [facility] contacted and agrees that an emergency department evaluation is necessary. Patient agreeable to ambulance transport to [facility] emergency department. 911 initiated and verbal SBAR given to [facility] ALS crew. ...................... ...................... ...................... ...................... ...................... ...................... ......... [facility] Consulted: Jeancarlos Gonsales ...................... ...................... ...................... ...................... ...................... ...................... ......... Disposition: Syed Gonsales MD [address] [facility],[address], [place], [address], [place] GUST[place]O RAMIREZSykio 03/20/2024 18:19:45 03/31/2024 text/html [facility] Nurse Triage [...] ...................... ...................... ...................... ...................... ...................... ...................... ......... Station Jailer Note From Chuy Finn: Pt had no [...] and rhythm/A-fib. Pt stable. Pt taking eliquis. [facility] Baci contacted and advised pt of signs indicating the ER, Drink plenty of fluids, Monitor symptoms. Allergies Discussed. ...................... ...................... ...................... ...................... ...................... ...................... ......... [facility] Consulted: Renu Marie ...................... ...................... ...................... ...................... ...................... ...................... ......... Disposition: Syed MARIE MD [address] [place] [address],[address], [place], [address], [employer] 03/31/2024 23:40:49 04/27/2024 text/html [facility] Nurse Triage Notes (Padmini [place] - [...] morning. Patient would like to be re-evaluated. Station Jailer Organization Information for Cheikh Mejia Legal Name: [employer] Address: [address] [place], [place] [address], [place] [address], Cloth Coverer: Parish CAUSEY No.: [id number] Station Jailer POC Test Results from Cheikh Mejia EKG [...] ...................... ...................... ...................... ...................... ...................... ...................... ......... Station Jailer Note From Cheikh Mejia: Dispatched for the [...] in all extremities -dcaptbtls -stroke scale findings. [facility] contacted and ordered COVID and FLU swab, BMP and orthostatic vital signs while sitting and standing in addition. 21 gauge butterfly LAC performed for BMP. all results forwarded and [facility] then ordered a 12 lead ekg and IV with 750 ml Normal Saline. IV established 18 gauge left forearm-normal saline IV drip 750 ml. all results forwarded to [facility] with changed after normal saline. [facility] noted she would send amoxicillin and Fluticasone and saline nasal spray to the patients pharmacy for possible nasal infection. red flag warnings discussed and noted to call 911 if headache or dizziness worsened any slurred speech, weakness, facial droop or syncope occurred. all times are approx.report completed by rob mejia. [facility] Lab Orders: rapid SARS CoV 2 Ag, QL IA, respiratory specimen: Performed ...................... ...................... ...................... ...................... ...................... ...................... ......... [facility] Consulted: Davina Garner ...................... ...................... ...................... ...................... [...] Kidney Disease, Obesity. Davina Garner MD [address] [facility],[address], [place], [address], [place] - JANICE RAMIREZ 04/27/2024 20:33:33
--- OUTSIDE RECORDS SUMMARY | 2024-08-25 19:42 | XMS_ITS ---
Author Organization [facility] Address [address] [place] [address] Care Team Providers Care Smash Hand Name Role Phone Gemini Fisher M.D. Primary [...] EACH DAY Inhalation for 30 Active Creon [id number] UNIT TOME 2 C PSULAS POR V [...] Problem Status W/U Status Risk Notes Problem 91762681 Dysphagia, unspecified type (R13.10) Active confirmed Problem 559037061 Abnormal barium swallow (R93.3) Active confirmed Problem 598291019 Gastroesophageal reflux disease, unspecified whether esophagitis present (K21.9) Active confirmed Problem 525075024 Presbyesophagus (K22.89) Active confirmed Vital Signs Temperature 97.8 degrees Fahrenheit 03/13/20 23 Blood pressure systolic 000 mm Hg 03/13/20 23 Blood pressure diastolic 00 mm Hg 023 Height 5 ft 5 in in 03/13/2023 Weight 221 lbs 03/13/2023 BMI 36.77 kg/m2 03/13/2023 Encounters Encounter Location Date Provider Diagnosis [facility] [address] [place] [phone] 03/13/2023 Larry Carnes Jr Dysphagia, unspecified type [...] * BEN DAILYIODOB: 1955 (67 yo M)Acc No.[id number]:03/13/2023 Progress Notes Patient:?KOBE DAILY Provider:?Larry Carnes MD :1955???Age:67 Y???Sex:Male Jose Manuel e:03/13/2023 Address:[address] [place], [place] [phone] Pcp:Gemini Fisher Subjective: * Chief Complaints: * [...] TODOS LOS D Oral , Taking Creon 50695-716846 UNIT Capsule Delayed Release Particles TOME 2 [...] Carnes MD Date:?05/13/2022 Generated for Dutch rosales/Aylin/Poweritting on:?08/25/2024 07:42 PM EDT History and Physical Notes * HPI [...]
--- OUTSIDE RECORDS SUMMARY | 2024-08-25 19:42 | XMS_ITS | Encounter Summary ---
Author Organization [employer] [facility] Address [address] [facility] [address] [place] [address] Care Team Providers Care Distribution Center Assistant Name Role Phone Gemini Chavez MD Primary Care Provide r Reason for Visit * Reason Comments Med Refill Encounter Details Date Type Department Care Team (Late st Contact Info) Description 10/07/2022 Refill [facility] [address] [place] [address] [phone] Gemini Chavez MD [address] [place], [place] [phone] Chronic systolic heart failure (CMS/HCC) Social History [...] Description 08/26/2024 11:15 AM EDT Office Visit [facility] [address] [place] [address] [phone] Gemini Chavez MD [address] [place], [place] [phone] documented as of this encounter Visit Diagnoses Diagnosis Chronic systolic heart failure (CMS/HCC) Chronic systolic heart failure documented in this encounter Additional Health Concerns Assessment Noted Time PHQ-9 Depression Total Score: 6 05/16/19 23 1:42 PM EST documented as of this encounter Care Teams Distribution Center Assistant Relationship Specialty Start Date End Date Gemini Chavez MD [address] [place] [address] PCP - General Family Medicine 01/21/18 [facility] 03/28/24 documented as of this encounter
--- OUTSIDE RECORDS SUMMARY | 2024-08-25 19:43 | XMS_ITS | Encounter Summary ---
Author Organization [employer] Address [address] [facility] [address] [place] [address] Care Team Providers Care Cooking Instructor Name Role Phone Gemini Chavez MD Primary Care Provide r Reason for Visit * Reason Comments Med Refill Encounter Details Date Type Department Care Team ([facility] st Contact Info) Description 10/20/2023 Refill [facility] [address] [place], [place] [phone] Gemini Chavez MD [address] [place] [address] Seasonal allergies Social History Tobacco Use Types [...] 11:15 AM EDT Office Visit [facility] [address] [place] [address] Gemini Chavez MD [address] [place] [address] documented as of this encounter Visit Diagnoses Diagnosis Seasonal allergies Allergic rhinitis, cause unspecified documented in this encounter Additional Health Concerns Assessment Noted Time PHQ-9 Depression Total Score: 0 09/03/19 9:55 AM EDT documented as of this encounter Care Teams Cooking Instructor Relationship Specialty Start Date End Date Gemini Chavez MD [address] [place] [address] PCP - General Family Medicine 01/21/18 [employer] 03/28/24 documented as of this encounter
--- OUTSIDE RECORDS SUMMARY | 2024-08-25 19:43 | XMS_ITS | Encounter Summary ---
Author Organization [employer] Address 75 [facility] 7t [place] [address] Care Team Providers Care Vocational Trainer Name Role Phone Gemini Chavez MD Primary Care Provide r Reason for Visit * Reason Comments Med Refill Encounter Details Date Type Department Care Team ([facility] st Contact Info) Description 05/08/2024 Refill [facility] [address] [place], [place] [phone] Gemini Chavez MD [address] [place], [place] [phone] Class 1 obesity due to excess calories [...] Description 08/26/2024 11:15 AM EDT Office Visit [facility] [address] [place] [phone] Gemini Chavez MD [address] [place] [address] documented as of this encounter Visit Diagnoses Diagnosis Class 1 obesity due to excess calories with serious comorbidity and body mass index (BMI) of 33.0 to 33.9 in adult documented in this encounter Additional Health Concerns Assessment Noted Time PHQ-9 Depression Total Score: 0 09/03/19 24 9:55 AM EDT documented as of this encounter Care Teams Vocational Trainer Relationship Specialty Start Date End Date Gemini Chavez MD [address] [place] [phone] PCP - General Family Medicine 01/21/18 [employer] 03/28/24 documented as of this encounter
--- OUTSIDE RECORDS SUMMARY | 2024-08-25 19:43 | XMS_ITS | Encounter Summary ---
Author Organization [employer] Address 75 [facility] 7t [place] [address] Care Team Providers Care Glycerin Supervisor Name Role Phone Gemini Chavez MD Primary Care Provide r Reason for Visit * Reason Comments NST/BPP Visit Encounter Details Date Type Department Care Team (Latest Contact Info) Description 08/23/2024 10:30 AM EDT Clinical Support [facility] MEDICINE [address] [place], [place] [phone] Maritza Rivera RN Hypertension, unspecified type [I10] [...] NST/BPP Visit Preferred language for medical information: Electrical Machine Builder needed: Yes, 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 2 mL 0 Umeclidinium [place] (Incruse Ellipta) 62.5 MCG/ACT aerosol powder Take [...] pain 07/22/2024 Stage 3 chronic kidney disease ([facility]) 04/16/2024 Class 1 obesity due to excess calories with serious comorbidity and body mass index (BMI) of 33.0 to 33.9 in adult 02/11/2024 Benign prostatic hyperplasia (BPH) with straining on urination 02/11/2024 Class 2 severe obesity due to excess calories with serious comorbidity and body mass index (BMI) of38.0 to 38.9 in adult ([facility]) 11/11/2023 Colon cancer screening 09/03/2023 Atrial fibrillation with RVR ([facility]) 08/22/2023 Mixed stress and urge urinary incontinence 07/10/2023 Weight gain 05/19/2023 Prediabetes 05/19/2023 Polyarthralgia 03/05/2023 Preop examination 02/13/2023 COPD with asthma ([facility]) 01/22/2023 Needle exposure 12/12/2022 Hoarseness, persistent 11/28/2022 Venous stasis 11/28/2022 Venous insufficiency of lower extremity 11/28/2022 Pain in right toe(s) 11/04/2022 Vertigo 11/04/2022 Aching headache 05/16/2022 Chronic obstructive lung disease ([facility]) 05/16/2022 Chronic systolic heart failure ([facility]) 05/16/2022 Dyspnea on exertion 05/16/2022 Vascular insufficiency 05/16/2022 Acquired hypothyroidism 02/04/2018 History of alcohol abuse 06/23/2012 Simple renal cyst 06/23/2012 Steatohepatitis 06/23/2012 Atrial fibrillation ([facility]) 12/12/2011 Ptosis of eyelid 12/12/2011 Rupture of quadriceps tendon 12/12/2011 Sleep apnea 12/12/2011 Anxiety state 10/31/2011 Coronary atherosclerosis 10/31/2011 Hypertension 10/31/2011 Mood disorder ([facility]) 10/31/2011 Pure hypercholesterolemia 10/31/2011 Iodinated contrast media [...] diet and exercise were reviewed. Last seen [employer] on08/18/24, next appt 09/14/24 Min Cano agreeable to plan discussed at today's visit. Future Appointments Date Time Provider Department Center 08/26/2024 11:15 AM Gemini Chung MD MEDICINE [facility] Maritza Rivera RN documented in this encounter Plan of Treatment Upcoming Encounters Date Type Department Care Team (Late st Contact Info) Description 08/26/2024 11:15 AM EDT Office Visit [facility] [address] [place] [address] Gemini Chavez MD [address] [place], [place] [phone] documented as of this encounter Visit Diagnoses Diagnosis Hypertension, unspecified type [I10] documented in this encounter Additional Health Concerns Assessment Noted Time PHQ-9 Depression Total Score: 0 09/03/19 9:55 AM EDT documented as of this encounter Care Teams Glycerin Supervisor Relationship Specialty Start Date End Date Gemini Chavez MD [address] [place] [phone] PCP - General Family Medicine 01/21/18 [employer] 03/28/24 documented as of this encounter
--- OUTSIDE RECORDS SUMMARY | 2024-08-25 19:43 | XMS_ITS | Encounter Summary ---
Author Organization [facility] [facility] Address 75 [facility] 7t [place] [address] Care Team Providers Care Rotary Swaging Machine Operator Name Role Phone Gemini Chavez [...] 11:15 AM EDT Office Visit [facility] MED[facility]INE [address] [place] [address] Gemini Chavez MD [address] [place] [address] documented as of this encounter Visit Diagnoses Not on filedocumented in this encounter Additional Health Concerns Assessment Noted Time PHQ-9 Depression Total Score: 0 09/03/19 9:55 AM EDT documented as of this encounter Care Teams Rotary Swaging Machine Operator Relationship Specialty Start Date End Date Gemini Chavez MD [address] [place] [address] PCP - General Family Medicine 01/21/18 [employer] 03/28/24 documented as of this encounter
--- OUTSIDE RECORDS SUMMARY | 2024-08-25 19:43 | XMS_ITS | Encounter Summary ---
Author Organization [employer] Address 75 [facility] 7t [place] [address] Care Team Providers Care Manager Of Financial Planning Name Role Phone Gemini Chavez MD Primary Care Provide r Encounter Details Date Type Department Care Team (Late st Contact Info) Description 05/10/2024 Orders Only [facility] MEDICINE [address] [place], [place] [phone] Gemini Chavez MD [address] [place], [place] [phone] Stage 3 chronic kidney disease, unspecified whether [...] 11:15 AM EDT Office Visit [facility] [address] [place] [address] Gemini Chavez MD [address] [place] [address] documented as of this encounter Visit Diagnoses [...] as of this encounter Care Teams Manager Of Financial Planning Relationship Specialty Start Date End Date Gemini Chavez MD [address] [place] [address] PCP - General Family Medicine 01/21/18 [employer] 03/28/24 documented as of this encounter
--- OUTSIDE RECORDS SUMMARY | 2024-08-25 19:43 | XMS_ITS | Encounter Summary ---
Author Organization [employer] Address 75 [facility] 7t [place] [address] Care Team Providers Care Fastener Sewing Machine Operator Name Role Phone Gemini Chavez MD Primary Care Provide r Encounter Details Date Type Department Care Team (Late st Contact Info) Description 06/18/2024 Orders Only [facility] MEDICINE [address] [place], [place] [phone] Gemini Chavez MD 230 [place], [place] [phone] Social History Tobacco Use Types Packs/Day Years [...] 08/26/2024 11:15 AM EDT Office Visit [facility] MEDICINE [address] [place] [address] Gemini Chavez MD [address] [place] [address] documented as of this encounter Visit Diagnoses Not on filedocumented in this encounter Additional Health Concerns Assessment Noted Time PHQ-9 Depression Total Score: 0 09/03/19 24 9:55 AM EDT documented as of this encounter Care Teams Fastener Sewing Machine Operator Relationship Specialty Start Date End Date Gemini Chavez MD [address] [place] [address] PCP - General Family Medicine 01/21/18 [employer] 03/28/24 documented as of this encounter
--- OUTSIDE RECORDS SUMMARY | 2024-08-25 19:43 | XMS_ITS ---
Author Organization [facility] Address [address] [place] [address] Care Team Providers Care Accounting Teacher Name Role Phone Gemini Fisher M.D. Primary Care Provider Abimael Carnes Jr, Larry Unavailable Katherine FORTE, Cipriano Unavailable Unavailable REASON FOR VISIT pathology Encounters Encounter Location Date Provider Diagnosis [facility] [address] [place] [address] 04/14/2023 Larry Carnes Jr Plan Of Treatment No Information Progress Notes * BEN DAILYIODOB: 1955 (67 yo M)Acc No.[id number]:04/14/2023 Patient:?KOBE DAILY :1955???Age:67 Y???Sex:Male Address:[address] [place] [address] [address] , [place], [address] * true * Date:? Generated for Byroni bobby/Aylin/eTransmitting on:?08/25/2024 07:42 PM EDT
[2024-08-25 19:51] LABS: Influenza A PCR NEGATIVE (Negative); Influenza B PCR NEGATIVE (Negative); Resp Syncy Virus RNA Qual PCR NEGATIVE (Negative); SARS COV2 PCR INHOUSE NEGATIVE (Negative)
[2024-08-25 20:01] LABS: Troponin-I High Sensitivity 4.2 ng/L (<3.5-35.0)
[2024-08-25 20:07] VITALS: BP 147/99; PULSE 75; RESP 16; TEMP 36.8; O2SAT 99
[2024-08-25 20:14] VITALS: BP 147/99; PULSE 75; RESP 16; TEMP 36.8; O2SAT 99
== END 2024-08-25 20:25 | disposition home or self-care (01) ==
PROVIDERS: Physician Assistant Medical; Emergency Provider Emergency Medicine
DX: I10 Essential (primary) hypertension (principal); R51.9 Headache, unspecified; I48.91 Unspecified atrial fibrillation; Z87.891 Personal history of nicotine dependence; Z03.818 Encounter for observation for suspected exposure to other biological agents ruled out; J45.909 Unspecified asthma, uncomplicated
CPT/HCPCS: 0241U; 80053; 83735; 84484; 85025; 85610; 93005; 99283; 99284

== ENCOUNTER → 2024-08-25 19:37 | Outpatient (BNV) | payer OTHER, SELFPAY | PROVIDERS: Emergency Provider Emergency Medicine; Visit Provider Internal Medicine Cardiovascular Disease | DX: R07.9 Chest pain, unspecified (principal) | CPT/HCPCS: 93010 ==

== ENCOUNTER 2024-09-15 09:35 | Outpatient (AMB) | payer OTHER, SELFPAY ==
--- NOTE | 2024-09-15 10:14 | A.OFFVIS_ITS ---
Vital Signs 09/15/24 10:27 Height 5 ft 7 in Weight 216 lb BMI 33.8 Intake Visit Reasons: ED f/u LT shoulder pain Intake Note: Min is a 68 year old right hand dominant male who presents today for an ER follow up of left shoulder. Patient presented to [facility] on 08/25/24 due to ongoing shoulder pain that has been getting worse since a fall in June. X- rays were done and he was referred to orthopedics. Patient reports sharp pain with movement of his arm. His pain is located at in his shoulder that radiates down his arm to his elbow, as well as his shoulder blade. Limited ROM. No numbness or tingling. Finds no relief with Tylenol or topical cream. No other treatment. Head Sugar Reprocess Operator Required: Yes Head Sugar Reprocess Operator Services: Head Sugar Reprocess Operator Present Head Sugar Reprocess Operator Name: Darrian [id number] Allergies Iodinated Contrast Media [CONTRAST, IV] Allergy (Unknown, Verified 09/15/24 10:23) HIVES kiwi [KIWI] Allergy (Unknown, Verified 09/15/24 10:23) THROAT SWELLING Medication List - Last Reconciled 09/15/24 by Mario Wild PA-C albuterol sulfate 3 mg inhalation QID PRN albuterol sulfate 90 mcg/actuation (Ventolin HFA) 2 puffs PO Q6H PRN apixaban 5 mg PO BID bisacodyl (Dulcolax (bisacodyl)) 10 mg (2 x 5 mg) PO BEDTIME 2 days cholecalciferol (vitamin D3) 50 mcg PO DAILY clonazepam 1 mg PO BID PRN diclofenac sodium 1% 2 grams topical QID epinephrine (EpiPen 2-Blaise) 0.3 mg (0.3 mL) IM Q4H PRN fluticasone propion-salmeterol 250-50 mcg/dose (Wixela Inhub) 1 ea PO BID furosemide 40 mg PO Q2D hydrochlorothiazide 25 mg PO DAILY hydroxyzine pamoate 25 mg PO BID PRN L.acidoph,saliva-B.bif-S.therm 175 mg (Acidophilus Probiotic Blend) 1 cap PO DAILY levothyroxine 100 mcg PO DAILY bbnumw-wuvoepqe-bnbsbul 36,000-114,000- 180,000 unit (Creon) 2 caps PO QID lisinopril 40 mg PO DAILY meclizine 25 mg PO DAILY metformin 500 mg PO BID metoprolol succinate ER 200 mg PO DAILY pantoprazole 40 mg PO DAILY rosuvastatin 40 mg PO DAILY sennosides (Senna Laxative) 17.2 mg (2 x 8.6 mg) PO BEDTIME simethicone 180 mg PO QID 30 days sodium,potassium,mag sulfates 17.5-3.13-1.6 gram (Suprep Bowel Prep Kit) DILUTE; drink 1/2 at 6-8 pm and half at 11 PM- 1AM umeclidinium 62.5 mcg/actuation (Incruse Ellipta) 1 inh inhalation DAILY vitamin E (dl, acetate) 45 mg PO DAILY zolpidem 10 mg PO BEDTIME PRN HPI HPI ED f/u LT shoulder pain: Details: 68 yo male presents to the office today for left shoulder pain. The pain has been present for several months. He states the pain is present with most activities such as reaching over head and sleeping at night. He states the pain does radiate down the arm and also into the back. He denies n/t into the hand or fingers. No PT done for the let shoulder. [facility] Medical History Pre-op examination Colon cancer screening Hoarseness Dysphagia Throat disorder Bronchitis CHF (congestive heart failure) Afib Allergic rhinitis COPD (chronic obstructive pulmonary disease) CE (obstructive sleep apnea) Obesity (BMI 30-39.9) Hypothyroid Anxiety Palpitation HTN (hypertension) Surgical History Hx of umbilical hernia repair History of surgery on arm Hx of eye surgery Hx of colonoscopy Hx of knee surgery Hx of tonsillectomy Family History Family/Other No problems noted. Social History Household Members: None Housing: Apartment Do you presently have visiting nurse or other home services: Yes Alcohol intake: former Patient Tobacco Use Status: Former Tobacco user Advance Directives Date on File: 08/11/23 service: No Review of Systems Const All systems reviewed & are unremarkable except as noted in HPI and below Physical Exam Vital Signs: BMI result Body Mass Index 33.8 Const General: cooperative and no acute distress Orientation/consciousness: patient oriented x3 Resp Effort & Inspection: normal respiratory effort and able to speak in complete sentences Cardio Peripheral pulses: Peripheral pulses 2+ throughout Neuro General: patient oriented x3 Extrem Other: Left shoulder is normal to inspection. He has significant limitations with attempts at range of motion due to severe pain. I can passively forward flex him to 45 degrees. External rotation to 40 degrees. Office Procedures AMB Joint Injection/Aspiration Joint Injection/Aspiration Primary Site: left shoulder Prep: site was prepped using aseptic technique, ethochloride spray was applied and injection warnings given Injected: 80 mg of, DepoMedrol, with 8 mL of, 1% plain lidocaine and in the subcromial space Approach Used: posterolateral Procedure: The patient tolerated the procedure well and there was some relief with the local anesthesia Coding 91153 - Glenohumeral/Tronchanteric Bursa/Intraarticular Procedure code (CPT) selection complete Results Reviewed Results Reviewed: X-rays of the left shoulder obtained from the emergency department are significant for glenohumeral joint and AC joint arthritis Assessment & Plan Assessment & Plan (1) Left shoulder tendonitis: Code(s): M77.8 - Other enthesopathies, not elsewhere classified Category: Medical (2) Arthritis of left shoulder: Code(s): M19.012 - Primary osteoarthritis, left shoulder Category: Medical Plan We discussed options today which include physical therapy and a steroid injection to help with his discomfort. Given his significant limitations on clinical exam I can not distinguish between rotator cuff pathology versus arthritic flare-up. My hope since the injection will give him some relief to allow him to begin moving the shoulder. I did place an order for physical therapy. If symptoms persist or worsen over the next 6 weeks she will contact our office and I will order an MRI of the left shoulder otherwise he will follow up as needed. Orders: Orders PT Evaluation and Treatment Today M77.8 - Other enthesopathies, not elsewhere classified Coding Level of Care Code New Pt Level 3 (52158) Complex EM visit Add On G2211 Diagnoses Left shoulder tendonitis M77.8 Arthritis of left shoulder M19.012 CPT Codes Coding - Joint 7: 52130 - Glenohumeral/Tronchanteric Bursa/Intraarticular ([id number])
[2024-09-15 10:27] VITALS: BMI 33.8
--- OUTSIDE RECORDS SUMMARY | 2024-09-15 10:27 | XMS_ITS | Encounter Summary ---
Author Organization [employer] Address 75 [facility] 7t [place] [address] Care Team Providers Care Petroleum Sampler Name Role Phone Gemini Chavez MD Primary Care Provide r Reason for Visit * Reason Comments Med Refill Encounter Details Date Type Department Care Team ([facility] st Contact Info) Description 03/03/2024 Refill [facility] [address] [place], [place] [phone] Gemini Chavez MD [address] [place], [place] [phone] Social History Tobacco Use Types Packs/Day Years [...] Care Team (Late st Contact Info) Description 11/29/2024 11:00 AM EDT Office Visit [facility] MEDICINE [address] [place] [address] Gemini Chavez MD [address] [place] [address] documented as of this encounter Visit Diagnoses Not on filedocumented in this encounter Additional Health Concerns Assessment Noted Time PHQ-9 Depression Total Score: 0 09/03/19 24 9:55 AM EDT documented as of this encounter Care Teams Petroleum Sampler Relationship Specialty Start Date End Date Gemini Chavez MD [address] [place] [address] PCP - General Family Medicine 01/21/18 [employer] 03/28/24 documented as of this encounter
--- OUTSIDE RECORDS SUMMARY | 2024-09-15 10:27 | XMS_ITS ---
Author Organization [facility] Address [address] [place] [address] Care Team Providers Care Edge Plugger Name Role Phone Phillip Sousa, Gemini Primary Care Provider Abimael Carnes Jr, Larry Unavailable Katherine FORTE, Cipriano Unavailable Unavailable REASON FOR VISIT dysphagia Problems Problem Type SNOMED Code ICD Code Onset Dates Problem Status W/U Status Risk Notes Problem Dysphagia (R13.10) Active confirmed Encounters Encounter Location Date Provider Diagnosis [facility] Outpatient [address] [place], [place] [phone] 04/01/2023 Larry Carnes Jr Dysphagia R13.10 and Abn findings-GI tract R93.3 Assessments Encounter Date Diagnosis (ICD Code) Assessment Notes Treatment Notes Treatment Clinical Notes Section Notes 04/01/2023 Dysphagia (ICD-10 - R13.10) 04/01/2023 Abn findings-GI tract (ICD-10 - R93.3) Plan Of Treatment No Information Progress Notes * BEN DAILYIODOB: 1955 (68 yo M)Acc No.[id number]:04/01/2023 EGD/MAC Patient:?KOBE DAILY Provider:?Larry Carnes MD :1955???Age:67 Y???Sex:Male Jose Manuel e:04/01/2023 Address:[address] [place], [place] [phone] Pcp:Gemini Fisher M.D. Subjective: * Chief Complaints: * ???1. Dysphagia. * Medical History:? Objective: * Vitals:? Assessment: * Assessment: 1.?Dysphagia - R13.10 (Prima ry)???2.?Abn findings-GI tract - R93.3??? Plan: * Treatment: * Procedure Codes:?15272 UPPER GI ENDOSCOPY, BIOPSY * * The named appointment provid er may or may not be the originator of this progress note, and it is not deemed complete until electronically signed by the appointment provider. Sign off status: Pending * Provider:?Larry Carnes MD Date:?06/01/2022 Generated for Dutch rosales/Aylin/eTransmitting on:?09/15/2024 10:27 AM EDT
--- OUTSIDE RECORDS SUMMARY | 2024-09-15 10:27 | XMS_ITS | Encounter Summary ---
Author Organization [employer] Address 75 [facility] 7t [place] [address] Care Team Providers Care Crematorium Operator Name Role Phone Gemini Chavez MD Primary Care Provide r Reason for Visit * Reason Comments Med Refill Encounter Details Date Type Department Care Team ([facility] st Contact Info) Description 02/12/2024 Refill [facility] MEDICINE [address] [place], [place] [phone] Gemini Chavez MD [address] [place] [address] Prediabetes Social History Tobacco Use Types Packs/Day [...] Description 11/29/2024 11:00 AM EDT Office Visit [facility] MEDICINE [address] [place] [address] Gemini Chavez MD [address] [place] [address] documented as of this encounter Visit Diagnoses Diagnosis Prediabetes Other abnormal glucose documented in this encounter Additional Health Concerns Assessment Noted Time PHQ-9 Depression Total Score: 0 09/03/19 24 9:55 AM EDT documented as of this encounter Care Teams Crematorium Operator Relationship Specialty Start Date End Date Gemini Chavez MD [address] [place] [address] PCP - General Family Medicine 01/21/18 [employer] 03/28/24 documented as of this encounter
--- OUTSIDE RECORDS SUMMARY | 2024-09-15 10:27 | XMS_ITS | Encounter Summary ---
Author Organization [employer] Address 75 [facility] 7t [place] [address] Care Team Providers Care Senior Business Analyst Name Role Phone Gemini Chavez MD Primary Care Provide r Reason for Visit * Reason Comments Med Refill Encounter Details Date Type Department Care Team ([facility] st Contact Info) Description 05/14/2024 Refill [facility] MEDICINE 230 [place], [place] [phone] Gemini Chavez MD 230 [place], [place] [phone] Class 1 obesity due to excess calories [...] Description 11/29/2024 11:00 AM EDT Office Visit [facility] MEDICINE [address] [place] [address] Gemini Chavez MD [address] [place] [address] documented as of this encounter Visit Diagnoses Diagnosis Class 1 obesity due to excess calories with serious comorbidity and body mass index (BMI) of 33.0 to 33.9 in adult documented in this encounter Additional Health Concerns Assessment Noted Time PHQ-9 Depression Total Score: 0 09/03/19 9:55 AM EDT documented as of this encounter Care Teams Senior Business Analyst Relationship Specialty Start Date End Date Gemini Chavez MD [address] [place] [address] PCP - General Family Medicine 01/21/18 [employer] 03/28/24 documented as of this encounter
--- OUTSIDE RECORDS SUMMARY | 2024-09-15 10:27 | XMS_ITS | Encounter Summary ---
Author Organization [employer] Address 75 [facility] 7t [place] [address] Care Team Providers Care Bindery Chief Name Role Phone Gemini Chavez MD Primary Care Provide r Reason for Visit * Reason Comments Med Refill Encounter Details Date Type Department Care Team (Late st Contact Info) Description 09/08/2022 Refill [facility] [address] [place], [place] [phone] Umer Sears MD [address] [place], [place] [phone] Seasonal allergies Social History Tobacco Use Types [...] Description 11/29/2024 11:00 AM EDT Office Visit [facility] MEDICINE [address] [place], [place] [phone] Gemini Chavez MD [address] [place], [place] [phone] documented as of this encounter Visit Diagnoses Diagnosis Seasonal allergies Allergic rhinitis, cause unspecified documented in this encounter Additional Health Concerns Assessment Noted Time PHQ-9 Depression Total Score: 6 05/16/19 23 1:42 PM EST documented as of this encounter Care Teams Bindery Chief Relationship Specialty Start Date End Date Gemini Chavez MD [address] [place] [address] PCP - General Family Medicine 01/21/18 [employer] 03/28/24 documented as of this encounter
--- OUTSIDE RECORDS SUMMARY | 2024-09-15 10:27 | XMS_ITS | Encounter Summary ---
Author Organization [employer] Address 75 [facility] 7t [place] [address] Care Team Providers Care Harness Cutter Name Role Phone Gemini Chavez MD Primary Care Provide r Reason for Visit * Reason Comments Med Refill Encounter Details Date Type Department Care Team ([facility] st Contact Info) Description 02/12/2024 Refill [facility] MEDICINE [address] [place], [place] [phone] Gemini Chavez MD [address] [place] [address] Prediabetes Social History Tobacco Use Types Packs/Day [...] Description 11/29/2024 11:00 AM EDT Office Visit [facility] MEDICINE [address] [place] [address] Gemini Chavez MD [address] [place] [address] documented as of this encounter Visit Diagnoses Diagnosis Prediabetes Other abnormal glucose documented in this encounter Additional Health Concerns Assessment Noted Time PHQ-9 Depression Total Score: 0 09/03/19 24 9:55 AM EDT documented as of this encounter Care Teams Harness Cutter Relationship Specialty Start Date End Date Gemini Chavez MD [address] [place] [address] PCP - General Family Medicine 01/21/18 [employer] 03/28/24 documented as of this encounter
--- OUTSIDE RECORDS SUMMARY | 2024-09-15 10:27 | XMS_ITS | Encounter Summary ---
Author Organization [employer] Address [address] [facility] 7t [place] [address] Care Team Providers Care Validation Engineer Name Role Phone Gemini Chavez MD Primary Care Provide r Reason for Visit * Reason Onset Date Comments Appointment Request 08/21/2022 Encounter Details Date Type Department Care Team ([facility] st Contact Info) Description 08/21/2022 Telephone [facility] MED[facility]INE [address] [place], [place] [phone] Gemini Chavez MD 230 [place] [address] Appointment Request Social History Tobacco Use Types [...] an family emergency. Please contact pt at [phone] documented in this encounter Plan of Treatment Upcoming Encounters Date Type Department Care Team (Late st Contact Info) Description 11/29/2024 11:00 AM EDT Office Visit [facility] MED[facility]INE [address] [place] [address] Gemini Chavez MD [address] [place] [address] documented as of this encounter Visit Diagnoses Not on filedocumented in this encounter Additional Health Concerns Assessment Noted Time PHQ-9 Depression Total Score: 6 05/16/19 23 1:42 PM EST documented as of this encounter Care Teams Validation Engineer Relationship Specialty Start Date End Date Gemini Chavez MD [address] [place], [place] [phone] PCP - General Family Medicine 01/21/18 [employer] 03/28/24 documented as of this encounter
--- OUTSIDE RECORDS SUMMARY | 2024-09-15 10:27 | XMS_ITS | Encounter Summary ---
Author Organization [employer] [facility] Address [address] [facility] 7t [place] [address] Care Team Providers Care Identification Printing Machine Setter Name Role Phone Gemini Chavez MD Primary Care Provide r Reason for Visit * Reason Comments Med Refill Encounter Details Date Type Department Care Team (Late st Contact Info) Description 06/21/2022 Refill [facility] MEDICINE [address] [place], [place] [phone] Marsha Menjivar MD 230 [place], [place] [phone] Chronic systolic heart failure (CMS/HCC) Social History [...] Encounters Date Type Department Care Team (Late Contact Info) Description 11/29/2024 11:00 AM EDT Office Visit [facility] MED[facility]INE [address] [place], [place] [phone] Gemini Chavez MD 230 [place], [place] [phone] documented as of this encounter Visit Diagnoses Diagnosis Chronic systolic heart failure (CMS/HCC) Chronic systolic heart failure documented in this encounter Additional Health Concerns Assessment Noted Time PHQ-9 Depression Total Score: 6 05/16/19 23 1:42 PM EST documented as of this encounter Care Teams Identification Printing Machine Setter Relationship Specialty Start Date End Date Gemini Chavez MD [address] [place] [address] PCP - General Family Medicine 01/21/18 [employer] 03/28/24 documented as of this encounter
--- OUTSIDE RECORDS SUMMARY | 2024-09-15 10:27 | XMS_ITS | Encounter Summary ---
Author Organization [employer] Address [address] [facility] 7t [place] [address] Care Team Providers Care Gas Operator Name Role Phone Gemini Chavez MD Primary Care Provide r Reason for Visit * Reason Onset Date Comments Prior Authorization 06/10/2024 Encounter Details Date Type Department Care Team ([facility] st Contact Info) Description 06/10/2024 Telephone [facility]INE 230 [place], [place] [phone] Gemini Chavez MD 230 [place] [address] Prior Authorization Social History Tobacco Use Types [...] is required on PA. Contact pt at [phone] (kiswahili) * Telephone Encounter - Rohit Cruz - 06/10/2024 9:00 AM EST Tc from pt requesting a PA for Tirzepatide-Weight Management (Zepbound) 2.5 MG/0.5ML solution auto-injector because pt stated that he received a letter stating that PA got denied. Contact pt: [phone] (Yakut) documented in this encounter Plan of Treatment Upcoming Encounters Date Type Department Care Team (Late st Contact Info) Description 11/29/2024 11:00 AM EDT Office Visit [facility] 230 [place], [place] [phone] Gemini Chavez MD [address] [place], [place] [phone] documented as of this encounter Visit Diagnoses Not on filedocumented in this encounter Additional Health Concerns Assessment Noted Time PHQ-9 Depression Total Score: 0 09/03/19 9:55 AM EDT documented as of this encounter Care Teams Gas Operator Relationship Specialty Start Date End Date Gemini Chavez MD [address] [place] [address] PCP - General Family Medicine 01/21/18 [employer] 03/28/24 documented as of this encounter
--- OUTSIDE RECORDS SUMMARY | 2024-09-15 10:27 | XMS_ITS | Encounter Summary ---
Author Organization [employer] [facility] Address [address] [facility] 7t [place] [address] Care Team Providers Care Cattle Dehorner Name Role Phone Gemini Chavez MD Primary Care Provide r Reason for Visit * Reason Comments Med Refill Encounter Details Date Type Department Care Team (Late st Contact Info) Description 10/07/2022 Refill [facility] MEDICINE 230 [place], [place] [phone] Gemini Chavez MD 230 [place], [place] [phone] Chronic systolic heart failure (CMS/HCC) Social History [...] Description 11/29/2024 11:00 AM EDT Office Visit [facility] MEDICINE [address] [place] [address] [phone] Gemini Chavez MD 230 [place] [address] documented as of this encounter Visit Diagnoses Diagnosis Chronic systolic heart failure (CMS/HCC) Chronic systolic heart failure documented in this encounter Additional Health Concerns Assessment Noted Time PHQ-9 Depression Total Score: 6 05/16/19 23 1:42 PM EST documented as of this encounter Care Teams Cattle Dehorner Relationship Specialty Start Date End Date Gemini Chavez MD 230 [place] [address] PCP - General Family Medicine 01/21/18 [employer] 03/28/24 documented as of this encounter
--- OUTSIDE RECORDS SUMMARY | 2024-09-15 10:28 | XMS_ITS | Encounter Summary ---
Author Organization [employer] Address [address] [facility] 7t [place] [address] Care Team Providers Care Mutton Puncher Name Role Phone Gemini Chavez MD Primary Care Provide r Encounter Details Date Type Department Care Team (Late st Contact Info) Description 06/18/2024 Orders Only [facility] MED[facility]INE 230 [place], [place] [phone] Gemini Chavez MD 230 [place], [place] [phone] Social History Tobacco Use Types Packs/Day Years [...] Description 11/29/2024 11:00 AM EDT Office Visit [facility] MED[facility] 230 [place] [address] Gemini Chavez MD 230 [place] [address] documented as of this encounter Visit Diagnoses Not on filedocumented in this encounter Additional Health Concerns Assessment Noted Time PHQ-9 Depression Total Score: 0 09/03/19 9:55 AM EDT documented as of this encounter Care Teams Mutton Puncher Relationship Specialty Start Date End Date Gemini Chavez MD [address] [place] [phone] PCP - General Family Medicine 01/21/18 [employer] 03/28/24 documented as of this encounter
--- OUTSIDE RECORDS SUMMARY | 2024-09-15 10:28 | XMS_ITS | Encounter Summary ---
Author Organization [employer] Address [address] [facility] 7t [place] [address] Care Team Providers Care Network Coordinator Name Role Phone Gemini Chavez MD Primary Care Provide r Reason for Visit * Reason Onset Date Comments Referral 03/14/2023 Encounter Details Date Type Department Care Team ([facility] st Contact Info) Description 03/14/2023 Telephone [facility]INE 230 [place], [place] [phone] Gemini Chavez MD 230 [place], [place] [phone] Referral Social History Tobacco Use Types Packs/Day [...] t he electric, gas, oil or water icix threatened to shut off services in your [...] Office Visit [facility]INE 230 [place] [address] Gemini Chavez MD 230 [place] [address] documented as of this encounter Visit Diagnoses Not on filedocumented in this encounter Additional Health Concerns Assessment Noted Time PHQ-9 Depression Total Score: 6 05/16/19 23 1:42 PM EST documented as of this encounter Care Teams Network Coordinator Relationship Specialty Start Date End Date Gemini Chavez MD 230 [place] [address] PCP - General Family Medicine 01/21/18 [email or web address] 03/28/24 documented as of this encounter
--- OUTSIDE RECORDS SUMMARY | 2024-09-15 10:28 | XMS_ITS | Clinical Summary ---
Author Organization [employer] Address [address] [place] [address] 7t [place] [address] Care Team Providers Care Nurse Obgyn Name Role Phone Gemini Chavez MD Primary [...] ANAPHYLAXIS AND CALL 911 2022 Active Creon [id number] units capsule delayed-release particles capsule Take 2 capsules by mouth 4 times daily. ADMINISTER WITH MEALS AND/OR SNACKS 2022 Active Fluticasone-Salmetero l 250-50 MCG/ACT aerosol powder Inhale 1 puff 2 times daily. 2023 Active Umeclidinium [place] (Incruse Ellipta) 62.5 MCG/ACT aerosol powderIndications:Chr onic [...] AL СЕРГЕЙ 150 mL 3 2024 Active rosuvastatin (Crestor) 40 MG tabletIndications:Pur [...] TIMES DAILY 300 g 2 2024 Active hydroCHLOROthiazide (HYDRODiuril) 25 MG tabletIndications:Hyp ertension, unspecified type Take 1 tablet (25 mg) by mouth Once per day. 30 tablet 2 08/26 Active FREESTYLE LITE test stripIndications:Pred iabetes Use to test blood sugar once daily 100 each 3 09/03 Active Lancets miscIndications:Predi abetes Use to test blood sugar once daily 100 each 2024 Active Blood Glucose Monitoring Suppl (FreeStyle [place] Lite) w/Device kitIndications:Predia betes Use to test blood sugar once daily 1 kit 2024 Active lisinopril 40 MG tabletIndications:Zaina singleton hypertension TAKE 1 TABLET BY MOUTH EVERY MORNING 90 tablet 2024 Active lisinopril 40 MG tabletIndications:Zaina singleton hypertension TAKE 1 TABLET BY MOUTH EVERY MORNING 90 tablet 09/06 Discontinued hydroCHLOROthiazide 12.5 MG tabletIndications:Hyp ertension, essential TAKE 1 TABLET BY MOUTH EVERY DAY 90 tablet 1 08/26 Discontinued Hospital, Clinic, or Other Facility Administered Medication [...] 33.9 in adult 02/11/2024 Assessment & Plan (08/26/2024 2:22 PM EDT): I prescribed for patient Zepbound, patient cannot take undermine he has numerous contraindications one of them is uncontrolled anxiety in spite of her being treated with medications and therapy, patient also has uncontrolled high blood pressure, and patient also has atrial fibrillation Assessment & Plan (07/22/2024 11:28 AM EDT): [...] TSH and contact him back Patient declines packaging materials inspector appointment Prediabetes 05/19/2023 Assessment & Plan (04/20/2024 [...] will like to be re-evalauted for more DESK MONITOR hours Preop examination 02/13/2023 Assessment & Plan [...] ideally next day of procedure--I called his ship washer-Dr Ely's # [phone] office and spoke w CLIFF -rose with plan to hold AC as rec [...] atherosclerosis 10/31/2011 Hypertension 10/31/2011 Assessment & Plan (08/26/2024 2:21 PM EDT): Blood pressure is not at goal, I decided to increase his hydrochlorothiazide to 25 mg daily, plan is for him to log his blood pressure at home and come back in 2 weeks for nurse visit if blood pressure is persistently over 140/90 plan is to add hydralazine 10 mg 3 times a day Assessment & Plan (07/05/2024 8:58 AM EST): [...] Encounters Date Type Department Care Team Description 09/10/[address] [facility] MEDICINE [address] [place] [phone] Gemini Chavez MD Call Back Request 09/09/2024 11:30 AM EDT Clinical Support [address] [address] Maritza Rivera RN Hypertension, unspecified type [I10] 09/09/2024 Travel 09/05/[address] [address] Ashley Garcia MD Primary hypertension 09/03/[address] [facility] MEDICINE 230 [place] [address] Gemini Chavez MD Prediabetes 08/26/2024 11:15 AM EDT Office Visit [facility] MEDICINE 230 [place] [address] Gemini Chavez MD Hypertension, unspecified type (Primary Dx); Class 1 obesity due to excess calories with serious comorbidity and body mass index (BMI) of 33.0 to 33.9 in adult 08/26/2024 Travel 08/25/2024 Orders Only GENERIC EXTERNAL DATA DEPARTMENT Provider, Generic External Data 08/23/2024 10:30 AM EDT Clinical Support [facility] MED[facility] [address] [place] [phone] Maritza Rivera RN Hypertension, unspecified type [I10] 08/23/2024 Travel 08/10/2024 Orders Only GENERIC EXTERNAL DATA DEPARTMENT Provider, Generic External Data 08/09/2024 9:00 AM EDT Office Visit [facility] 230 [place] [address] Rivas Hurst MD Benign paroxysmal positional vertigo, unspecified laterality (Primary Dx); Chronic left shoulder pain; Hypertension, unspecified type 08/06/[address] [facility] MED[facility]INE [address] [place] [address] Gemini Chavez MD Acquired hypothyroidism 08/04/[address] [facility] MED[facility]INE [address] [place] [address] Gemini Chavez MD Hypertension, essential 07/29/[address] [facility] MEDICINE [address] [place] [phone] Gemini Chavez MD ER Follow-up 07/28/[address] [facility] MEDICINE [address] [place] [phone] Gemini Chavez MD Prior Authorization ( PA Request: Zepbound) 07/26/[address] [address] Gemini Chavez MD 07/22/2024 11:00 AM EDT Office Visit [address] [address] Gemini Chavez MD Precordial pain (Primary Dx); Class 1 obesity due to excess calories with serious comorbidity and body mass index (BMI) of 33.0 to 33.9 in adult 07/22/2024 Orders Only GENERIC EXTERNAL DATA DEPARTMENT Provider, Generic External Data 07/22/2024 Travel 07/15/[address] [facility] [address] [address] Gemini Chavez MD 07/15/2024 Patient Outreach [address] [address] Gemini Chavez MD Pre-visit Planning ((Unable to reach for PVP screening, LVM)) 07/12/2024 11:00 AM EST Clinical Support [address] [address] Elyssa Barajas, GAYLE Dietary counseling; Exercise counseling; Primary hypertension 07/12/2024 Travel 07/05/2024 9:00 AM EST Office Visit [facility] [address] [address] Alexandra Knox MD Primary hypertension (Primary Dx); Elevated blood pressure reading 07/02/[address] [address] Gemini Chavez MD Pure hypercholesterolemia 06/18/2024 Orders Only [address] [address] Gemini Chavez MD from Last 3 Months [...] Sign Reading Time Taken Comments Blood Pressure 124/78 09/09/2024 12:08 PM EDT Pulse 68 09/09/2024 12:00 PM EDT Temperature 37 ??C (98.6 ??F) 08/26/2024 11:02 AM EDT Respiratory Rate 16 09/09/2024 12:00 PM EDT Oxygen Saturation 98% 09/09/2024 12:00 PM EDT Inhaled Oxygen Concentration - - Weight 96.6 kg (213 lb) 08/26/2024 11:02 AM EDT Height 169.4 cm (5' 6.7 ) 08/26/2024 11:02 AM ED T Body Mass Index 33.66 08/26/2024 11:02 AM EDT Plan of Treatment Upcoming Encounters Date Type Department Care Team (Late st Contact Info) Description 11/29/2024 11:00 AM EDT Office Visit [facility] MEDICINE 230 [place] [address] Gemini Chavez MD 230 [place] [address] Health Maintenance Due Date Last Done Comments [...] 01/21/2024 Colorectal Cancer Screening 01/20/2025 Tobacco Screening 08/26/2025 08/26/2024 Lipid Panel 05/03/2029 05/03/2024, 01/2024, 12/13/2022, Additional history exists DTaP/Tdap/Td Vaccines [...] Diagnosis Comments HIGH SENSITIVITY TROPONIN I Routine 08/25/2024 7:07 PM EDT SARS COV2/INFLUENZA A/B AND RSV RNA QL NAAT Routine 08/25/2024 7:07 PM EDT BASIC METABOLIC PANEL Routine 08/10/2024 6:46 AM EDT URINALYSIS WITH REFLEX TO MICROSCOPIC Routine 08/10/2024 6:43 AM EDT AMB REFERRAL TO ORTHOPAEDIC SURGERY Urgent 08/09/2024 Chronic left shoulder pain HIGH SENSITIVITY TROPONIN I Routine 07/22/2024 7:40 PM EDT HIGH SENSITIVITY TROPONIN I Routine 07/22/2024 3:38 PM EDT ECG 12-LEAD Routine 07/22/2024 11:21 AM EDT Precordial pain LIPID PANEL, STANDARD Routine 05/03/2024 8:15 AM [...] Maintenance Results * High Sensitivity Troponin I (08/25/2024 7:07 PM EDT) Only the most recent of3 resultswithin the time period is included. TROPONIN I HIGH SENSITIVITY 4.2 <3.5 - 35.0 ng/L [facility] Comment:The Ham high sens itivity Troponin-I results should beused in conjunction with other diagnostic information suchas ECG, clinical observations and information, and patientsymptoms to aid in the diagnosis of [place]. 08/25/2024 7:07 PM EDT 08/25/2024 7:10 PM EDT us Generic External Data Provider LAB BLOOD ORDERAB LES Final Result Performing Organization Address [facility] Co de Phone Number [facility] [address] [place] [phone] * SARS-CoV-2 RNA, Influenza A/B, and RSV RNA, Ql NAAT (08/25/2024 7:07 PM EDT) Pathologist [facility] Influenza A PCR NEGATIVE Negative [facility] Influenza B PCR NEGATIVE Negative [facility] Resp Syncy Virus RNA Qual PCR NEGATIVE Negative [facility] SARS COV2 PCR NEGATIVE Negative [facility] Comment:All test results mus [...] use by authorized laboratories.Testing performed on the [employer] GeneXpert utilizingreal-time RT-PCR.All SARS CoV2 and positive influenza A/B results arereported to [facility]. 08/25/2024 7:07 PM EDT 08/25/2024 7:10 PM EDT Generic External Data Provider LAB MICROBIOLOGY - GENERAL ORDERABLES Final Result Performing Organization Address [facility]/ZIP Co de Phone Number [facility] [address] [place] [phone] * (ABNORMAL) Basic Metabolic Panel (08/10/2024 6:46 AM EDT) Pathologist [facility] Sodium 144 135 - 145 mmol/L [facility] Potassium 4.0 3.3 - 5.1 mmol/L [facility] Chloride 110(H) 96 - 108 mmol/L [facility] Carbon Dioxide 27 22 - 29 mmol/L [facility] Anion Gap 11(L) 12 - 20 [facility] Urea Nitrogen (BUN) 15 9 - 16 mg/dL [facility] Creatinine, Serum 1.11 0.5 - 1.4 mg/dL [facility] Estimated Glomerular Filt Rate >60 [facility] Comment:Chronic Kidney Disea se: Estimated GFR < 60 mL/min/[id number] Kidney Disease: Estimated GFR < 15 mL/min/1.73m2 Glucose 100 60 - 115 mg/dL [facility] Calcium 9.1 8.4 - 10.2 mg/dL [facility] 08/10/2024 6:46 AM EDT 08/10/2024 6:46 AM EDT us Generic External Data Provider LAB BLOOD ORDERAB LES Final Result Performing Organization Address [facility] Co de Phone Number [facility] [address] [place] [phone] * Urinalysis with Reflex to Microscopic (08/10/2024 6:43 AM EDT) Color Urine Yellow [facility] Appearance Urine Clear [facility] PH 5.5 5.0 - 9.0 [facility] Glucose Urine UA Negative Negative mg/dL [facility] Urine Blood Negative Negative [facility] Specific Herrick - Urine 1.015 1.005 - 1.025 [facility] Urine Protein Negative Neg-Trace mg/dL [facility] Urine Ketones Trace Negative mg/dL [facility] Nitrite Urine Negative Negative [facility] Leukocyte Esterase Urine Negative Negative [facility] 08/10/2024 6:43 AM EDT 08/10/2024 7:46 AM EDT us Generic External Data Provider LAB URINE ORDERAB LES Final Result Performing Organization Address [facility]/ZIP Co de Phone Number [facility] [address] [place] [phone] * Referral to Orthopaedic Surgery (08/09/2024) us Rivas Hurst MD OUTPATIENT REFERRAL ORDERABLES F inal Result * ECG 12 lead (07/22/2024 11:21 AM EDT) Narrative Gemini Chavez MD - 07/22/2024 11:21 AM EDT Atrial fibrillation with normal ventricular response, rate [address] abnormalities us Gemini Chung MD ECG ORDERABLES Final Result * (ABNORMAL) Lipid Panel, Standard (05/03/2024 8:15 AM EST) Triglycerides 230(H) <150 mg/dL [facility] Comment:Desirable Triglyceri de: less than 150 mg/dLBorderline High Triglyceride 150-199 mg/dLHigh Triglyceride: 200-499 mg/dLVery High Triglyceride: greater than or equal to 5OO mg/dL Cholesterol 118 <200 mg/dL [facility] Comment:Desirable Cholestero l: less than 200 mg/dLBorderline High Cholesterol: 200-239 mg/dLHigh Cholesterol: greater than 239 mg/dL LDL Cholesterol Calculated 41 <100 mg/dL [facility] Comment:Desirable LDL: less than 100 mg/dLNear Optimal/Above Optimal LDL: 110- 129 mg/dLBorderline High LDL: 130-159 mg/dLHigh LDL: 160-189 mg/dLVery High LDL: greater than or equal to 190 mg/dL HDL Cholesterol 31(L) >40 mg/dL [facility] Comment:Desirable HDL: great er than 40 mg/dL Note: This HDL assay may give artificially low results in patients with liver disease. Blood Venous blood specimen / Unknown 05/03/2024 8:15 AM EST 05/03/2024 11:40 AM EST us Gemini Chung MD LAB BLOOD ORDERABLES Final Result [facility] [address] [place] [phone] * Hm Colonoscopy (01/21/2024 10:19 AM EDT) Colonoscopy Normal Normal Narrative Jamila Page - 01/21/2024 10:19 AM EDT Repeat Colonoscopy in 6-12 months due to poor right prep or earlier if clinically indicated see external hospital admission note on 01/21/2024 [facility] Provider HEALTH MAINTENANCE Edited Result - Final * (ABNORMAL) POCT HGB A1C (11/11/2023 11:12 AM EDT) Hemoglobin A1C 6.4(A) 4.0 - 6.0 % QC Media Lot # [id number] Lot# Expiration Date Blood 11/11/2023 11:1 2 AM EDT Gemini Chung MD POINT OF CARE TEST EN TER/EDIT ORDERABLES Final Result * Hepatitis C Antibody Reflex (12/13/2022 8:21 AM EDT) Hepatitis C Antibody Nonreactive Nonreactive [facility] Comment:Antibodies to HCV no t detected; does not exclude early acuteHCV infection. 12/13/2022 8:21 AM EDT 12/13/2022 11:08 AM EDT Gemini Chung MD LAB BLOOD ORDERABLES Final Result [facility] [address] [place], [place] [phone] from Last 3 Months or Most Recently Relevant to Health Maintenance Insurance [address] [place] [id number] [employer] LONGTERM OPTIONS (HMO D-SNP) [facility] STANDARD [facility] LONGTERM OPTIONS (HMO D-SNP) [address] [place] [id number] Care Teams Nurse Obgyn Relationship Specialty Start Date End Date Gemini Chavez MD [address] [place] [address] PCP - General Family Medicine 01/21/18 [employer] 03/28/24
--- OUTSIDE RECORDS SUMMARY | 2024-09-15 10:28 | XMS_ITS | Patient Health Record ---
Author Organization [facility] Address [address] [place] [address] Care Team Providers Care Agricultural Technician Name Role Phone Gemini Fisher M.D. Primary Care Provider Larry Angeles Jr Unavailable Katherine FORTE, Cipriano Unavailable Unavailable Allergies No Known Allergies Reason For Referral No Information Medications Medication SIG (Take, Route, Frequency, Duration) Notes Start Date End Date Status Creon [id number] UNIT TOME 2 C PSULAS POR V [...] Risk Notes Problem Dysphagia (R13.10) Active confirmed Problem 54430924 Dysphagia, unspecified type (R13.10) Active confirmed Problem 404569041 Abnormal barium swallow (R93.3) Active confirmed Problem [id number] Gastroesophageal reflux disease, unspecified whether esophagitis present (K21.9) Active confirmed Problem [id number] Presbyesophagus (K22.89) Active confirmed Plan Of Treatment Future Test Test Name Order Date UPPER GI ENDOSCOPY 03/13/2023 Insurance Providers Payer Name Payer Address Payer Phone Subscriber Number Group Number Insured Name Patient Relationship to Insured Coverage Start Date Coverage End Date [facility] [address] Attn Claims CLIFF Perez [id number] KOBE DAILY Self - patient is the insured Medical (General) History Medical History History ICD Code CE/COPD hypertension Fatty liver pulmonary nodule Elevated BMI Atrial fibrillation Hypothyroidism Gastroesophageal reflux disease/dysphagi a Surgical History Surgery Date(Month/Year) Cataract surgery Umbilical hernia repair Tonsillectomy
--- OUTSIDE RECORDS SUMMARY | 2024-09-15 10:28 | XMS_ITS ---
Author Organization [facility] Address [address] [place] [address] Care Team Providers Care Senior Paralegal Name Role Phone Gemini Fisher M.D. Primary Care Provider Abimael Carnes Jr, Larry Unavailable [phone] Katherine FORTE, Cipriano Unavailable Unavailable REASON FOR VISIT pathology Encounters Encounter Location Date Provider Diagnosis [facility] [address] [place] [address] 04/14/2023 Larry Carnes Jr Plan Of Treatment No Information Progress Notes * BEN DAILYIODOB: 1955 (67 yo M)Acc No.[id number]:04/14/2023 Patient:?KOBE DAILY :1955???Age:67 Y???Sex:Male Address:[address] [place] [address] [address] , [place], [address] * true * Date:? Generated for Byroni bobby/Aylin/eTransmitting on:?09/15/2024 10:28 AM EDT
--- OUTSIDE RECORDS SUMMARY | 2024-09-15 10:28 | XMS_ITS | Encounter Summary ---
Author Organization [employer] Address [address] [facility] 7t [place] [address] Care Team Providers Care Cripple Chaser Name Role Phone Gemini Chavez MD Primary Care Provide r Encounter Details Date Type Department Care Team (Late st Contact Info) Description 05/10/2024 Orders Only [facility] MEDICINE [address] [place], [place] [phone] Gemini Chavez MD [address] [place], [place] [phone] Stage 3 chronic kidney disease, unspecified whether [...] Description 11/29/2024 11:00 AM EDT Office Visit [facility] [address] [place] [phone] Gemini Chavez MD [address] [place] [address] documented as of this encounter Visit Diagnoses Diagnosis Stage 3 chronic kidney disease, unspecified whether stage 3a or 3b CKD ([facility])- Primary Class 2 severe obesity due to excess calories with serious comorbidity and body mass index (BMI) of 38.0 to 38.9 in adult ([facility]) documented in this encounter Additional Health Concerns Assessment Noted Time PHQ-9 Depression Total Score: 0 09/03/19 9:55 AM EDT documented as of this encounter Care Teams Cripple Chaser Relationship Specialty Start Date End Date Gemini Chavez MD [address] [place] [id number] PCP - General Family Medicine 01/21/18 [employer] (Work) 03/28/24 documented as of this encounter
--- OUTSIDE RECORDS SUMMARY | 2024-09-15 10:28 | XMS_ITS | Encounter Summary ---
Author Organization [facility] Address [address] [facility] 7t [place] [address] Care Team Providers Care Transmission System Operator Name Role Phone Gemini Chavez MD Primary Care Provide r Encounter Details Date Type Department Care Team (Late st Contact Info) Description 01/22/2023 Orders Only [facility] MED[facility]INE [address] [place], [place] [phone] Gemini Chavez MD [address] [place], [place] [phone] COPD with asthma ([facility]) Social History Tobacco Use Types Packs/Day Years [...] Description 11/29/2024 11:00 AM EDT Office Visit [facility] [address] [place], [place] [phone] Gemini Chavez MD [address] [place], [place] [phone] documented as of this encounter Visit Diagnoses Diagnosis COPD with asthma ([facility]) documented in this encounter Additional Health Concerns Assessment Noted Time PHQ-9 Depression Total Score: 6 05/16/19 23 1:42 PM EST documented as of this encounter Care Teams Transmission System Operator Relationship Specialty Start Date End Date Gemini Chavez MD [address] [place] [address] PCP - General Family Medicine 01/21/18 [place] 03/28/24 documented as of this encounter
--- OUTSIDE RECORDS SUMMARY | 2024-09-15 10:28 | XMS_ITS | Encounter Summary ---
Author Organization [employer] Address [address] [facility] 7t [place] [address] Care Team Providers Care Rougher Helper Name Role Phone Gemini Chavez MD Primary Care Provide r Reason for Visit * Reason Onset Date Comments Call Back Request 09/10/2024 Encounter Details Date Type Department Care Team ([facility] st Contact Info) Description 09/10/2024 Telephone [facility] MEDICINE [address] [place], [place] [phone] Gemini Chavez MD [address] [place] [address] Call Back Request Social History Tobacco Use Types Packs/Day [...] encounter Miscellaneous Notes * Telephone Encounter - Jeimy Hussein RN - 09/14/2024 9:06 AM EDT TC returned to [facility], left detailed message advising provider would like eliquis held two days prior to colonoscopy and resume 2 days after procedure. * Telephone Encounter - Jeimy Hussein RN - 09/13/2024 1:51 PM EDT Please clarify on what you would like in regards to holding and resuming eliquis for colonoscopy scheduled 09/21/24, thanks!! * Telephone Encounter - Elissa Ambrosio - 09/13/2024 12:30 PM EDT Tc from [place] with [facility] to clarify if pt can hold eliquis for two days. [phone] Option 5 Nurses * Telephone Encounter - Jeimy Hussein RN - 09/10/2024 2:39 PM EDT Keri from [facility] returned call, colonoscopy is scheduled for 09/21/[address] Underwood. Advised them pt. Is already established with cardiology at [facility]. Advised them message has been sent in regards toholding and resuming eliquis for procedure and will call them back with orders. * Telephone Encounter - Jeimy Hussein RN - 09/10/2024 2:06 PM EDT TC returned to [facility] GI nurse's line, no answer, left detailed message that pt. Has been seen for BP f/up since last in ED and BP yesterday was normal 124/78. Pt. Is due for a colonoscopy soon per GI note from [facility], please advise on holding and then resuming eliquis for a colonoscopy , thank you!! * Telephone Encounter - Elissa Ambrosio - 09/10/2024 1:20 PM EDT Tc from [place] with [facility] to: - Follow up b/p visit two weeks after pt being in the ER. - Report: pt was referred to [facility], appointment on September 21 - Advise holding apixaban (Eliquis) 5 MG tablet. [phone] Option 5 Nurses documented in this encounter Plan of Treatment Upcoming Encounters Date Type Department Care Team (Late st Contact Info) Description 11/29/2024 11:00 AM EDT Office Visit [facility] MEDICINE [address] [facility] [place] [phone] Gemini Chavez MD [address] [place] [address] documented as of this encounter Visit Diagnoses Not on filedocumented in this encounter Additional Health Concerns Assessment Noted Time PHQ-9 Depression Total Score: 0 09/03/19 24 9:55 AM EDT documented as of this encounter Care Teams Rougher Helper Relationship Specialty Start Date End Date Gemini Chavez MD [address] [place] [address] PCP - General Family Medicine 01/21/18 [place] 03/28/24 documented as of this encounter
--- OUTSIDE RECORDS SUMMARY | 2024-09-15 10:28 | XMS_ITS | Encounter Summary ---
Author Organization [employer] Address [address] [facility] [address] [place] [address] Care Team Providers Care Staff Appraiser Name Role Phone Gemini Chavez MD Primary Care Provide r Encounter Details Date Type Department Care Team (Late st Contact Info) Description 02/19/[address] [facility] MEDICINE [address] [place], [place] [phone] Gemini Chavez MD [address] [place], [place] [phone] Social History Tobacco Use Types Packs/Day Years [...] Description 11/29/2024 11:00 AM EDT Office Visit [facility] [address] [place] [address] Gemini Chavez MD [address] [place] [address] documented as of this encounter Visit Diagnoses Not on filedocumented in this encounter Additional Health Concerns Assessment Noted Time PHQ-9 Depression Total Score: 6 05/16/19 23 1:42 PM EST documented as of this encounter Care Teams Staff Appraiser Relationship Specialty Start Date End Date Gemini Chavez MD [address] [place] [address] PCP - General Family Medicine 01/21/18 [place] 03/28/24 documented as of this encounter
--- OUTSIDE RECORDS SUMMARY | 2024-09-15 10:28 | XMS_ITS | Encounter Summary ---
Author Organization [facility] Address [address] [facility] 7t [place] [address] Care Team Providers Care Escrow Officer Name Role Phone Gemini Chavez MD Primary Care Provide r Reason for Visit * Reason Onset Date Comments Nurse Triage 03/26/2023 Encounter Details Date Type Department Care Team ([facility] st Contact Info) Description 03/26/2023 Telephone [facility] MEDICINE [address] [place] [address] Gemini Chavez MD [address] [place] [address] Nurse Triage Social History Tobacco Use Types [...] 03/26/2023 11:47 AM EST Triage call with Deuel Stock Chaser [place] [id number] Pt reports ingrown toenail great toe on left foot for 3 days now. Pt reports it is painful and causes some limping when ambulating. Pt denies redness, drainage. Pt requests a referral to credit card analyst which was very helpful last time this happened. Pt is advised will send this request to PCP and nursing team for follow up and Pt agreed. Pt declined to come to [facility] only wants credit card analyst to cut this toenail. Protocol Used: Information [...] accepted this outcome Please contact pt at [phone] (tying machine operator lumber needed) documented in this encounter Plan of Treatment Upcoming Encounters Date Type Department Care Team ([facility] st Contact Info) Description 11/29/2024 11:00 AM EDT Office Visit [facility] MEDICINE [address] [place] [phone] Gemini Chavez MD [address] [place], [place] [phone] documented as of this encounter Visit Diagnoses Not on filedocumented in this encounter Additional Health Concerns Assessment Noted Time PHQ-9 Depression Total Score: 6 05/16/19 23 1:42 PM EST documented as of this encounter Care Teams Escrow Officer Relationship Specialty Start Date End Date Gemini Chavez MD [address] [place] [address] PCP - General Family Medicine 01/21/18 [email or web address] 03/28/24 documented as of this encounter
--- OUTSIDE RECORDS SUMMARY | 2024-09-15 10:28 | XMS_ITS | Data Portability ---
Author Organization [employer], [employer] in - [employer] Address [address] [place] [address] Care Team Providers Care Paperhanger And Painter Name Role Phone TALIB MARTINEZZEDWIN RONALDO Primary Care Provider [phone] HIM [facility] OTHER [facility] OTHER [phone] Assessment Encounter Date Assessment Date Assessment LastModified [...] assessment and plan as documented by the mercantile reporter. I provided real time medical direction for this encounter and was immediately available to provide additional phone based assistance as needed. History as noted by mercantile reporter. Pt with history of afib on apixaban, [...] be transported via 911 ambulance to the [facility] and I give a pt expect to the ED model maker plaster as well. [email or web address] Not available 03/20/2024 18:19:28 04/21/2024 04/21/2024 I provided real -time medical direction via phone for this encounter and was available for additional phone-based assistance as needed. I have reviewed and agree with the Assessment and Plan as documented by the Food Beverage Attendant. Patient given the opportunity to ask questions. [...] pressure. No change in functional status. Per mercantile reporter on the scene, vital signs are stable [...] Assessment and Plan as documented by the Food Beverage Attendant. We discussed the diagnostic uncertainty of home [...] to call 911- verbalized understanding of instruction [email or web address] Not available 04/27/2024 20:25:46 Plan of Treatment Reminders Order Date Submit Date Provider Last Modified By Organization Details Last Modified Time Details Appointments None recorded. Lab rapid SARS CoV 2 Ag, QL IA, respiratory specimen 2023 024 [email or web address] Main - [facility], [address] [place] [address], [id number] 4 20:24:15 rapid flu (A+B) 2023 024 [email or web address] 0 Main - [facility], [address] [place] [address], [id number] 4 20:24:15 BMP, serum or plasma 2023 024 [email or web address] 0 Main - [facility], [address] [place] [address], [id number] 4 20:24:15 rapid flu (A+B) 2023 024 [email or web address] Main - [facility], [address] [place] [address], [address] [place] [address] 4 10:38:31 rapid SARS CoV 2 Ag, QL IA, respiratory specimen 2023 024 [email or web address] Main - [facility], [address] [place] [address], [id number] 4 10:38:31 Referral None recorded. Procedures None recorded. Surgeries None recorded. Imaging electrocard iogram 2023 024 [email or web address] 0 Main - [facility], [address] [place] [address], [id number] 4 20:24:15 electrocard iogram 2023 024 [email or web address] Main - [facility], [address] [place] [address], [id number] 4 18:36:07 electrocard iogram 2023 024 [email or web address] Main - [facility], [address] [place] [address], [phone] 4 14:50:34 Medication Orders fluticasone propionate 50 mcg/actuati on nasal spray,suspe nsion 2023 024 [facility] [address] [place], [address], 4 12:56:56 Saline Nasal 0.65 % spray aerosol 2023 024 [facility] [address] [place], [address], 4 12:56:56 amoxicillin 500 mg capsule 2023 024 [facility], [address] [place], [address], 4 12:56:55 sodium chloride 0.9 % intravenous solution [email or web address] [facility] [address] [place], [address], 4 20:24:15 prednisone 20 mg tablet 2023 024 [facility] #2071, [address] [place], [address], 4 10:38:33 prednisone 20 mg tablet 2023 024 [email or web address] [facility]armacy #5918, [address] [place], [address], 4 10:38:31 Patient TargetsNo targets recorded. Patient Instructions Encounter Date Encounter Id Patient Instructions Last Modified By Organization Details Last Modified Time 03/31/2024 [id number] orthostatic vitals* [email or web address] Not available 03/31/2024 18:21:41 Reason for Referral None Reported. Results Created Date Observation Date Name Description Value Unit Range Abnormal Flag Note LastModifiedBy Organization Detail LastModifiedTime 04/21/20 24 04/21/2024 rapid SARS CoV 2 Ag, QL IA, respi rator y speci men rapid SARS CoV 2 Ag, QL IA, respiratory specimen negati ve Not Available [facility] ed [address] [place] [address], [phone] 04/21/2024 10:37:26 04/21/20 24 04/21/2024 rapid flu (A+B) Flu negati ve Not Available Main - [facility] ed [address] [place] [address], [phone] 04/21/2024 10:37:25 04/27/20 24 04/27/2024 rapid flu (A+B) Flu negati ve Not Available [facility] ed [address] [place] [address], [address] 04/27/2024 12:57:09 04/27/20 24 04/27/2024 rapid SARS CoV 2 Ag, QL IA, respi rator y speci men rapid SARS CoV 2 Ag, QL IA, respiratory specimen negati ve Not Available Main - [facility] ed [address] [place] [address], [phone] 04/27/2024 12:57:08 03/20/20 24 03/20/2024 elect rocar diogr am No observ ation record ed. [email or web address] Main - [facility] [address] [place] [address], [phone] 03/20/2024 14:50:32 03/31/20 24 03/31/2024 elect rocar diogr am No observ ation record ed. gbaci Main - [facility] [address] [place] [address], [phone] 03/31/2024 18:36:06 04/27/20 24 04/27/2024 elect starr tinajerogr am No observ ation record ed. [email or web address] [address], [address] 04/27/2024 20:22:51 Result Notes None recorded. Procedures Surgical History None recorded. Imaging Results Imaging Date Name Status LastModified by Organization Details LastModified Time 03/20/2024 electrocardiogram completed [email or web address] [facility] [address] [place] [address], [phone] 03/20/2024 14:50:32 03/31/2024 electrocardiogram completed [email or web address] Main - [address], [phone] 03/31/2024 18:36:06 04/27/2024 electrocardiogram completed [email or web address] [facility] [address] [place] [address], [phone] 04/27/2024 20:22:51 Procedure Notes None recorded. Medical [...] /min 162.56 cm 96 % 96 % 374217. 16 g 16 /min 121 mm[Hg] 87 mm[Hg] Not Available [employer] 4 21:44:22 Date Recorded Heart rate Respiratory rate Body temperature Oxygen saturation Oxygen saturation in Arterial blood by Pulse oximetry Systolic blood pressure Diastolic blood pressure Systolic blood pressure Diastolic blood pressure Provider Name and Address Organization Details Last Updated DateTime 4 105 /min 16 /min 98.7 [degF] 95 % 95 % 114 mm[Hg] 81 mm[Hg] 85 mm[Hg] 51 mm[Hg] Not Available [employer] 4 14:41:24 Date Recorded Respiratory rate Heart rate Body weight Body temperature Oxygen saturation Oxygen saturation in Arterial blood by Pulse oximetry Heart rate Respiratory rate Systolic blood pressure Diastolic blood pressure Systolic blood pressure Diastolic blood pressure Provider Name and Address Organization Details Last Updated DateTime 4 16 /min 74 /min 17374.4 4 g 98.3 [degF] 98 % 98 % 84 /min 20 /min 114 mm[Hg] 84 mm[Hg] 120 mm[Hg] 86 mm[Hg] Not Available [employer] 4 18:31:50 Date Recorded Oxygen saturation Oxygen saturation in Arterial blood by Pulse oximetry Body temperature Respiratory rate Heart rate Systolic blood pressure Diastolic blood pressure Provider Name and Address Organization Details Last Updated DateTime 4 98 % 98 % 98.1 [degF] 20 /min 95 /min 150 mm[Hg] 100 mm[Hg] Not Available [employer] 4 11:24:31 Date Recorded Body height Body mass index (BMI) Body weight Provider Name and Address Organization Details Last Updated DateTime 04/27/2024 162.56 cm 33.5 kg/m2 03420.51 g Davina Garner MD [address] [facility], [place], [address], [place] - [employer]inode 04/27/2024 20:03:55 Social History None recorded. Functional Status None recorded. Mental Status None recorded. Family History Nothing Reported. Medical History No medical history recorded. Past Encounters Encounter ID Performer Location Encounter Start Date Encounter Closed Date Diagnosis/Indication Diagnosis SNOMED-CT Code Diagnosis ICD10 Code Diagnosis Note [id number] Allison Newman MD Main - [facility] [address] [place] [phone] 0 04/11/2022 18:32:13 04/15/2022 15:46:34 Cough 74681659 R05.9 [id number] Davina Garner MD Main - [facility] [address] [place] [phone] 01/07/2023 14:14:00 01/07/2023 22:56:53 Essential hypertension 36042348 I10 Patient exam is benign. Patient reassured/ his blood pressure is normal when taken with the medic cough. The medic measured the patient's blood pressure with his 5-year-old home machine and got 135/112 thus it is the patient's machine that is giving erroneous readingsNo te sent to [facility] to reach out to the career counselor to assist the patient in obtaining a new home blood pressure monitor. Advised to continue all his regular medication s and follow-up with his PCP as needed [id number] Davina Garner MD Main - [facility] [address] [place] [address] 01/08/2023 15:21:28 01/08/2023 23:59:09 Viral upper respiratory tract infection 352389347 J06.9 And viral pharyngiti s-advised to gargle [...] pcp. Sandra Bloom MD Main - [facility] [address] [place] [phone] 06/23/2023 18:11:30 06/24/2023 10:34:59 Dizziness [id number] R42 [id number] Marlyn Casas MD Main - [facility] [address] [place] [id number] 08/05/2023 10:57:00 08/05/2023 16:00:41 Asthma 227352806 J45.909 Exacerbati on of moderate persistent asthma 095891998 J45.41 [id number] Eric Israel MD Main - [facility] [address] [place] [id number] 08/13/2023 12:51:38 08/13/2023 20:11:05 Acute exacerbation of chronic obstructive pulmonary disease 914365437 J44.1 The patient has a flare-up of his COPD. He will continue his current treatments . [id number] Eric Israel MD Main - [facility] [address] [place] [phone] 11/14/2023 12:02:23 11/14/2023 21:31:15 Vertigo 614871934 R42 This 67-year-ol d male with a past history of vertigo developed mild vertigo today. He has taken Meclizine in the past with good relief. I ordered Meclizine 50 mg now. He will follow-up with his PCP if the vertigo persists. The patient agreed with this plan. [id number] Thomas Lyon MD [facility] - [facility] [address] [place] [phone] 0 11/27/2023 21:44:10 11/28/2023 10:18:17 Headache 22154446 R51.9 [id number] Jeancarlos Gonsales MD Main - [facility] [address] [place] [id number] 0 03/20/2024 14:41:13 03/22/2024 13:41:42 Orthostatic hypotension 41328586 I95.1 Atrial fibrillation 4943 6004 I48.91 [id number] RENU MARIE MD Main - [facility] [address] [place] [id number] 0 03/31/2024 18:19:08 04/01/2024 11:10:35 Dizziness 175241717 R42 Evaluation in the field was performed by my mercantile reporter colleague, as noted above, I provided real-time [...] , palpitatio ns or any other concerns. [id number] Marlyn Casas MD Main - [facility] [address] [place] [phone] 0 04/21/2024 10:14:37 04/22/2024 00:16:20 Asthma-chronic obstructive pulmonary disease overlap syndrome [id number] 8918709 J44.9 Viral uppe r respiratory tract infection 543260915 J06.9 [id number] Davina Garner MD Main - [facility] [address] [place] [id number] 0 04/27/2024 11:24:18 04/27/2024 22:19:18 Headache 32999121 R51.9 w/ dizziness- possibly sinusitisS lightly less [...] Recorded Advance Directives Directive None Recorded Payers Insurance Date Sequence Insurance Name Policy Number Policy Young Covered Member ID Young Member ID Guarantor Name 03/31/2024 1 [facility] - DOS PRIOR TO 2022 - DUAL ELIGIBLE (MEDICARE REPLACEMENT/AD VANTAGE - HMO) Min Arauz [id number] Min Arauz 04/27/2024 1 [facility] - DOS ON OR AFTER 2022 - DUAL ELIGIBLE - RETIREMENT OPTIONS AND ONE CARE (MEDICARE REPLACEMENT/AD VANTAGE - HMO) Min Arauz [id number] Min Arauz Notes Date Note Type Note Provider Name and Address Organization Details Recorded Time 11/27/2023 text/html [facility] Nurse Triage Notes (Padmini Payne): Reason For Request: high BP Chief Complaints: Hypertension PMH: COPD/Asthma, Hypertension, CHF, Heart Disease, Diabetes Allergies: No Known Comments: Referral taken via Supervisor Blood [id number]. Member with elevated BP, 153/112 and 156/120, took his HS medications. Member with headache and dizziness, denies chest pain, mild sob, but is not new, denies any arm or jaw pain, no numbness, tingling or weakness anywhere. Member would like to be evaluated. ...................... ...................... ...................... ...................... ...................... ...................... ......... Food Beverage Attendant Note From Pradeep Rainey: [facility] visit for [...] afib, no other significant findings. Consulted with [facility] Dr. Lyon who advised pt should take another 500mg tylenol. Reviewed red flags for ED. Patient education provided. ...................... ...................... ...................... ...................... ...................... ...................... ......... Disposition: Fulfilled Thomas Lyon MD [address] [place] [address],[address], [place], [address] [employer] 11/27/2023 23:06:36 03/20/2024 text/html This was a super vised home visit with mercantile reporter Rivas Thapa. [facility] Nurse Triage Notes (Dov Lainez): Reason For Request: Patient was dizzy, fell, and hurt himself, possibly bp problems - Chief Complaints: Dizziness PMH: COPD/Asthma, Hypertension, Congestive Heart Failure, Coronary Artery Disease, Gastroesophageal Reflux Disease (GERD) Comments: Spine Supervisor verified the Pt.'s name//address and phone [...] Concerns expressed - PT declines ER treatment. Food Beverage Attendant Organization Information for Rivas Thapa Legal Name: [facility] Transportation Address: [address] [place] [address], [place] [address], Design Technology Professor: Byron CAUSEY No.: [id number] Food Beverage Attendant POC Test Results from Rivas Thapa EKG (14:32:21) EKG test performed. Attachments uploaded as part of this test result can be found under Documents section. ...................... ...................... ...................... ...................... ...................... ...................... ......... Food Beverage Attendant Note From Rivas Thapa: This 68-year-old male [...] No lower extremity edema. EKG uploaded, a-fib. [facility] contacted and agrees that an emergency department evaluation is necessary. Patient agreeable to ambulance transport to [facility] emergency department. 911 initiated and verbal SBAR given to [facility] ALS crew. ...................... ...................... ...................... ...................... ...................... ...................... ......... [facility] Consulted: Jeancarlos Gonsales ...................... ...................... ...................... ...................... ...................... ...................... ......... Disposition: Fulfilled Jeancarlos Gonsales MD [address] [place] [address],[address], [place], [address], [employer] 03/20/2024 18:19:45 03/31/2024 text/html [facility] Nurse Triage [...] ...................... ...................... ...................... ...................... ...................... ...................... ......... Food Beverage Attendant Note From Chuy Finn: Pt had no [...] and rhythm/A-fib. Pt stable. Pt taking eliquis. [facility] Baci contacted and advised pt of signs indicating the ER, Drink plenty of fluids, Monitor symptoms. Allergies Discussed. ...................... ...................... ...................... ...................... ...................... ...................... ......... [facility] Consulted: Renu Marie ...................... ...................... ...................... ...................... ...................... ...................... ......... Disposition: Syed RENU MARIE MD [address] [facility],[address], [place], [address], [employer] 03/31/2024 23:40:49 04/27/2024 text/html [facility] Nurse Triage Notes (Padmini Payne - RN): [...] morning. Patient would like to be re-evaluated. Food Beverage Attendant Organization Information for Cheikh Mejia Legal Name: [employer] Address: [address] [place] [address], Design Technology Professor: Parish Ruiz MD CLIA No.: [id number] Food Beverage Attendant POC Test Results from Cheikh Mejia EKG [...] ...................... ...................... ...................... ...................... ...................... ...................... ......... Food Beverage Attendant Note From Cheikh Mejia: Dispatched for the scheduled visit for the male patient with a headache. pt. was found alert and oriented x3 sitting in bed c/o of a severe headache from yesterday with dizziness upon sitting up. pt. noted he had been seen by [facility] on the but could not [...] in all extremities -dcaptbtls -stroke scale findings. [facility] contacted and ordered COVID and FLU swab, BMP and orthostatic vital signs while sitting and standing in addition. 21 gauge butterfly LAC performed for BMP. all results forwarded and [facility] then ordered a 12 lead ekg and IV with 750 ml Normal Saline. IV established 18 gauge left forearm-normal saline IV drip 750 ml. all results forwarded to [facility] with changed after normal saline. [facility] noted she would send amoxicillin and Fluticasone and saline nasal spray to the patients pharmacy for possible nasal infection. red flag warnings discussed and noted to call 911 if headache or dizziness worsened any slurred speech, weakness, facial droop or syncope occurred. all times are approx.report completed by rob mejia. [facility] Lab Orders: rapid SARS CoV 2 Ag, QL IA, respiratory specimen: Performed ...................... ...................... ...................... ...................... ...................... ...................... ......... [facility] Consulted: Davina Garner ...................... ...................... ...................... ...................... ...................... ...................... ......... Disposition: FulfilledSEGMD: letty seen by [facility] on 04/21 and diagnosed with COPD exacerbation [...] Kidney Disease, Obesity. Davina Garner MD [address] [facility],[address], [place], [address], [employer] 04/27/2024 20:33:33
--- OUTSIDE RECORDS SUMMARY | 2024-09-15 10:28 | XMS_ITS | Encounter Summary ---
Author Organization [employer] Address [address] [facility] [address] [place] [address] Care Team Providers Care Animal Doctor Name Role Phone Gemini Chavez MD Primary Care Provide r Reason for Visit * Reason Comments Med Change Request Encounter Details Date Type Department Care Team (Late st Contact Info) Description 02/04/2023 Refill [facility] MED & PEDS [address] [place], [place] [phone] Marsha Menjivar MD [address] [place] [address] Primary hypertension Social History Tobacco Use Types [...] - 03/03/2023 11:46 AM EDT Sent to [facility] * Telephone Encounter - Jacqueline [...] Description 11/29/2024 11:00 AM EDT Office Visit [facility] MEDICINE [address] [place] [address] Gemini Chavez MD [address] [place] [address] documented as of this encounter Visit Diagnoses Diagnosis Primary hypertension Unspecified essential hypertension documented in this encounter Additional Health Concerns Assessment Noted Time PHQ-9 Depression Total Score: 6 05/16/19 23 1:42 PM EST documented as of this encounter Care Teams Animal Doctor Relationship Specialty Start Date End Date Gemini Chavez MD [address] [place] [address] PCP - General Family Medicine 01/21/18 [employer] 03/28/24 documented as of this encounter
--- OUTSIDE RECORDS SUMMARY | 2024-09-15 10:28 | XMS_ITS | Encounter Summary ---
Author Organization [employer] Address [address] [facility] [address] [place] [address] Care Team Providers Care Death Claim Examiner Name Role Phone Gemini Chavez MD Primary Care Provide r Encounter Details Date Type Department Care Team (Late st Contact Info) Description 07/10/2023 Orders Only [facility] MEDICINE [address] [place], [place] [phone] Gemini Chavez MD [address] [place], [place] [phone] Mixed stress and urge urinary incontinence (Primary [...] t he electric, gas, oil or water [employer] threatened to shut off services in your [...] Office Visit [facility] MEDICINE [address] [place] [address] Gemini Chavez MD [address] [place] [address] documented as of this encounter Visit Diagnoses Diagnosis Mixed stress and urge urinary incontinence- Primary Mixed incontinence urge and stress (male)(female) documented in this encounter Additional Health Concerns Assessment Noted Time PHQ-9 Depression Total Score: 6 05/16/19 23 1:42 PM EST documented as of this encounter Care Teams Death Claim Examiner Relationship Specialty Start Date End Date Gemini Chavez MD [address] [place] [address] PCP - General Family Medicine 01/21/18 [employer] 03/28/24 documented as of this encounter
--- OUTSIDE RECORDS SUMMARY | 2024-09-15 10:28 | XMS_ITS | Encounter Summary ---
Author Organization [employer] Address [address] [facility] [address] [place] [address] Care Team Providers Care Arson Investigator Name Role Phone Gemini Chavez MD Primary Care Provide r Reason for Visit * Reason Comments Med Refill Encounter Details Date Type Department Care Team (Late st Contact Info) Description 10/20/2023 Refill [facility] MED & PEDS [address] [place], [place] [phone] Gemini Chavez MD [address] [place] [address] Seasonal allergies Social History Tobacco Use Types [...] Description 11/29/2024 11:00 AM EDT Office Visit [facility] MEDICINE [address] [place] [address] Gemini Chavez MD [address] [place] [address] [phone] documented as of this encounter Visit Diagnoses Diagnosis Seasonal allergies Allergic rhinitis, cause unspecified documented in this encounter Additional Health Concerns Assessment Noted Time PHQ-9 Depression Total Score: 0 09/03/19 9:55 AM EDT documented as of this encounter Care Teams Arson Investigator Relationship Specialty Start Date End Date Gemini Chavez MD [address] [place] [address] PCP - General Family Medicine 01/21/18 [employer] 03/28/24 documented as of this encounter
--- OUTSIDE RECORDS SUMMARY | 2024-09-15 10:28 | XMS_ITS | Encounter Summary ---
Author Organization [employer] Address [address] [facility] 7t [place] [address] Care Team Providers Care Electrode Turner And Finisher Name Role Phone Gemini Chavez MD Primary Care Provide r Reason for Visit * Reason Comments Med Change Request Encounter Details Date Type Department Care Team (Late Contact Info) Description 01/08/2023 Refill [facility] MEDICINE [address] [place], [place] [phone] Marsha Menjivar MD [address] [place] [address] Chronic obstructive pulmonary disease, unspecified COPD type (CMS/[facility]) Social History Tobacco Use Types Packs/Day [...] generated for Nebulizer signed and faxed to [facility]. documented in this encounter Plan of Treatment Upcoming Encounters Date Type Department Care Team (Late st Contact Info) Description 11/29/2024 11:00 AM EDT Office Visit [facility] MEDICINE [address] [place] [address] Gemini Chavez MD [address] [place] [address] documented as of this encounter Visit Diagnoses Diagnosis Chronic obstructive pulmonary disease, unspecified COPD type (CMS/HCC) documented in this encounter Additional Health Concerns Assessment Noted Time PHQ-9 Depression Total Score: 6 05/16/19 23 1:42 PM EST documented as of this encounter Care Teams Electrode Turner And Finisher Relationship Specialty Start Date End Date Gemini Chavez MD [address] [place] [address] PCP - General Family Medicine 01/21/18 [employer] 03/28/24 documented as of this encounter
--- OUTSIDE RECORDS SUMMARY | 2024-09-15 10:28 | XMS_ITS | Encounter Summary ---
Author Organization [employer] Address 75 [facility] 7t [place] [address] Care Team Providers Care Ceramic Products Sales Engineer Name Role Phone Gemini Chavez MD Primary Care Provide r Reason for Visit * Reason Comments Med Refill Encounter Details Date Type Department Care Team ([facility] st Contact Info) Description 05/08/2024 Refill [facility] MEDICINE 230 [place], [place] [phone] Gemini Chavez MD 230 [place] [address] Class 1 obesity due to excess calories [...] 11/29/2024 11:00 AM EDT Office Visit [facility] MEDICINE [address] [place] [phone] Gemini Chavez MD 230 [place] [address] documented as of this encounter Visit Diagnoses Diagnosis Class 1 obesity due to excess calories with serious comorbidity and body mass index (BMI) of 33.0 to 33.9 in adult documented in this encounter Additional Health Concerns Assessment Noted Time PHQ-9 Depression Total Score: 0 09/03/19 24 9:55 AM EDT documented as of this encounter Care Teams Ceramic Products Sales Engineer Relationship Specialty Start Date End Date Gemini Chavez MD [address] [place] [address] PCP - General Family Medicine 01/21/18 [employer] 03/28/24 documented as of this encounter
== END 2024-09-15 11:08 | disposition home or self-care (01) ==
LOC: HO.HOS 09:35
PROVIDERS: PCP Internal Medicine; Visit Provider Physician Assistant
DX: M19.012 Primary osteoarthritis, left shoulder (principal); M77.8 Other enthesopathies, not elsewhere classified
CPT/HCPCS: 20610; 99203

== ENCOUNTER → 2024-09-15 09:35 | Outpatient (BNVA) | payer OTHER, SELFPAY | PROVIDERS: PCP Internal Medicine; Visit Provider Physician Assistant | DX: M19.012 Primary osteoarthritis, left shoulder (principal); M77.8 Other enthesopathies, not elsewhere classified | CPT/HCPCS: 20610; 99202; J1010; J2003 ==

== ENCOUNTER 2024-09-17 12:46 | Outpatient (AMB) | payer OTHER, SELFPAY ==
--- OUTSIDE RECORDS SUMMARY | 2024-09-17 12:50 | XMS_ITS | Clinical Summary ---
Author Organization [facility] Address 175 [place] [address] Phone Care Team Providers Care Carnallite Plant Operator Name Role Phone Gemini Chavez MD Primary Care Provide r Allergies No known active allergies Encounters Date Type Department Care Team Description 09/01/2024 1:00 PM EDT Office Visit Orthopedic [facility] [place] [address] [phone] Gallito Hancock DPM Ingrowing nail (Primary Dx); Type II diabetes mellitus with peripheral circulatory disorder ([facility] V24, [facility] V28) from Last 3 Months Social History [...] - Inhaled Oxygen Concentration - - Weight 109 kg (240 lb) 09/01/2024 12:40 PM EDT Height 167.6 cm (5' 5.98 ) 09/01/2024 12:40 PM E DT Body Mass Index 38.76 09/01/2024 12:40 PM EDT Plan of Treatment Upcoming Encounters Date Type Department Care Team (Late st Contact Info) Description 12/02/2024 10:30 AM EDT Office Visit Orthopedic Surgery [place] [address] [phone] Gallito Hancock DPM [address] [address] Health Maintenance Due Date Last Done Comments [...] Risk Assessment 06/06/2023 Hepatitis C Screening 06/06/2023 Social Influencers of Health Screening 06/06/2023 Diabetes: Annual Urine Albumin-Creatinine Ratio (uACR) 06/02/2024 Diabetes: Blood Sugar Control Test (HGBA1C) 06/02/2024 11/11/2023 COVID-19 Vaccine ( season) 2024 02/11/2024, 02/06/2023, 04/24/2022, Additional history exists Depression Screening 09/02/2024 09/03/2023 Diabetes: Annual GFR (Glomerular Filtration Rate) 08/10/2025 08/10/2024, 06/16/2024, 05/04/2024, Additional history exists Hypertension/CHF/CAD Annual BMP Blood Test 08/10/2025 08/10/2024, 06/16/2024, 05/04/2024, Additional history exists Cholesterol Screening (Lipid Panel) 05/03/2029 05/03/2024 DTaP,Tdap,and [...] patient's age to complete this topic Insurance MEDICAID - [place] Care Teams Carnallite Plant Operator Relationship Specialty Start Date End Date Gemini Chavez MD [address] [phone] PCP - General 04/24/23
--- OUTSIDE RECORDS SUMMARY | 2024-09-17 12:50 | XMS_ITS ---
Author Organization [facility] Address [address] [place] [address] Care Team Providers Care Lens Mounter Name Role Phone Phillip Sousa, Gemini Primary Care Provider Larry Angeles Jr Unavailable Katherine FORTE, Cipriano Unavailable Unavailable REASON FOR VISIT dysphagia Problems Problem Type SNOMED Code ICD Code Onset Dates Problem Status W/U Status Risk Notes Problem Dysphagia (26546765) Dysphagia (R13.10) Active confirmed Encounters Encounter Location Date Provider Diagnosis [facility] Outpatient [address] [place], [place] [phone] 04/01/2023 Larry Carnes Jr Dysphagia R13.10 and Abn findings-GI tract R93.3 Assessments Encounter Date Diagnosis (ICD Code) Assessment Notes Treatment Notes Treatment Clinical Notes Section Notes 04/01/2023 Dysphagia (ICD-10 - R13.10) 04/01/2023 Abn findings-GI tract (ICD-10 - R93.3) Plan Of Treatment No Information Progress Notes * BEN DAILYIODOB: 1955 (68 yo M)Acc No.[id number]:04/01/2023 EGD/MAC Patient:?KOBE DAILY Provider:?Larry Carnes MD :1955???Age:67 Y???Sex:Male Jose Manuel e:04/01/2023 Address:[address] [place], [place] [id number] Pcp:Gemini Fisher M.D. Subjective: * Chief Complaints: * ???1. Dysphagia. * Medical History:? Objective: * Vitals:? Assessment: * Assessment: 1.?Dysphagia - R13.10 (Prima ry)???2.?Abn findings-GI tract - R93.3??? Plan: * Treatment: * Procedure Codes:?11357 UPPER GI ENDOSCOPY, BIOPSY * * The named appointment provid er may or may not be the originator of this progress note, and it is not deemed complete until electronically signed by the appointment provider. Sign off status: Pending * Provider:?Larry Carnes MD Date:?1 06/01/2022 Generated for Dutch rosales/Aylin/eTransmitting on:?09/17/2024 12:50 PM EDT
--- OUTSIDE RECORDS SUMMARY | 2024-09-17 12:50 | XMS_ITS | Data Portability ---
Author Organization [facility] Address [address] [place] [address] Care Team Providers Care Sonar Technician Name Role Phone TALIB MARTINEZZEDWIN RONALDO Primary Care Provider [phone] HIM [facility] OTHER [facility] OTHER Assessment Encounter Date Assessment Date [...] assessment and plan as documented by the automobile sales consultant. I provided real time medical direction for this encounter and was immediately available to provide additional phone based assistance as needed. History as noted by automobile sales consultant. Pt with history of afib on [...] be transported via 911 ambulance to the [facility] and I give a pt expect to the ED tire recapping machine operator as well. [email or web address] Not available 03/20/2024 18:19:28 04/21/2024 04/21/2024 I provided real -time medical direction via phone for this encounter and was available for additional phone-based assistance as needed. I have reviewed and agree with the Assessment and Plan as documented by the Trials Manager. Patient given the opportunity to ask [...] pressure. No change in functional status. Per automobile sales consultant on the scene, vital signs are [...] Assessment and Plan as documented by the Trials Manager. We discussed the diagnostic uncertainty of [...] to call 911- verbalized understanding of instruction [email or web address] Not available 04/27/2024 20:25:46 Plan of Treatment Reminders Order Date Submit Date Provider Last Modified By Organization Details Last Modified Time Details Appointments None recorded. Lab rapid SARS CoV 2 Ag, QL IA, respiratory specimen 2023 024 [email or web address] 0 [facility], [address] [place] [address], [id number] 4 20:24:15 rapid flu (A+B) 2023 024 [email or web address] 0 [facility] - [facility], [address] [place] [address], [id number] 4 20:24:15 BMP, serum or plasma 2023 024 [email or web address] 0 [facility] - [facility], [address] [place] [address], [id number] 4 20:24:15 rapid flu (A+B) 2023 024 [email or web address] Main - [facility], [address] [place] [address], [address] [place] [address] 4 10:38:31 rapid SARS CoV 2 Ag, QL IA, respiratory specimen 2023 024 [email or web address] [facility] - [facility], [address] [place] [address], [id number] 4 10:38:31 Referral None recorded. Procedures None recorded. Surgeries None recorded. Imaging electrocard iogram 2023 024 [email or web address] 0 Main - [facility], [address] [place] [address], [id number] 4 20:24:15 electrocard iogram 2023 024 [email or web address] Main - [facility], [address] [place] [address], [id number] 4 18:36:07 electrocard iogram 2023 024 [email or web address] Main - [facility], [address] [place] [address], [id number] 4 14:50:34 Medication Orders fluticasone propionate 50 mcg/actuati on nasal spray,suspe nsion 2023 024 [facility] [address] [place], [address], 4 12:56:56 Saline Nasal 0.65 % spray aerosol 2023 024 [facility], [address] [place], [address], 4 12:56:56 amoxicillin 500 mg capsule 2023 024 [facility], [address] [place], [address], 4 12:56:55 sodium chloride 0.9 % intravenous solution 2023 024 [email or web address] 0 [facility] [address] [place], [address], 4 20:24:15 prednisone 20 mg tablet 2023 024 [facility] #2071, [address] [place], [address], 4 10:38:33 prednisone 20 mg tablet 2023 024 [email or web address] [facility]/Pharmacy #[id number], [address] [place], [address], 4 10:38:31 Patient TargetsNo targets recorded. Patient Instructions Encounter Date Encounter Id Patient Instructions Last Modified By Organization Details Last Modified Time 03/31/2024 [id number] orthostatic vitals* [email or web address] Not available 03/31/2024 18:21:41 Reason for Referral None Reported. Results Created Date Observation Date Name Description Value Unit Range Abnormal Flag Note LastModifiedBy Organization Detail LastModifiedTime 04/21/20 24 04/21/2024 rapid SARS CoV 2 Ag, QL IA, respi rator y speci men rapid SARS CoV 2 Ag, QL IA, respiratory specimen negati ve Not Available [facility] ed [address] [place] [address], [phone] 04/21/2024 10:37:26 04/21/20 24 04/21/2024 rapid flu (A+B) Flu negati ve Not Available Main - [facility] ed [address] [place] [address], [phone] 04/21/2024 10:37:25 04/27/20 24 04/27/2024 rapid flu (A+B) Flu negati ve Not Available [facility] ed [address] [place] [address], [phone] 04/27/2024 12:57:09 04/27/20 24 04/27/2024 rapid SARS CoV 2 Ag, QL IA, respi rator y speci men rapid SARS CoV 2 Ag, QL IA, respiratory specimen negati ve Not Available Main - [facility] ed [address] [place] [address], [phone] 04/27/2024 12:57:08 03/20/20 24 03/20/2024 elect rocar diogr am No observ ation record ed. btils Main - [facility] [address] [place] [address], [phone] 03/20/2024 14:50:32 03/31/20 24 03/31/2024 elect rocar diogr am No observ ation record ed. gbaci Main - [facility] [address] [place] [address], [phone] 03/31/2024 18:36:06 04/27/20 24 04/27/2024 elect starr tinajerogr am No observ ation record ed. [email or web address] [address], [phone] 04/27/2024 20:22:51 Result Notes None recorded. Procedures Surgical History None recorded. Imaging Results Imaging Date Name Status LastModified by Organization Details LastModified Time 03/20/2024 electrocardiogram completed [email or web address] [facility] [address] [place] [address], [phone] 03/20/2024 14:50:32 03/31/2024 electrocardiogram completed [email or web address] Main - [address], [phone] 03/31/2024 18:36:06 04/27/2024 electrocardiogram completed [email or web address] [facility] [address] [place] [address], [phone] 04/27/2024 20:22:51 Procedure Notes None recorded. Medical [...] /min 162.56 cm 96 % 96 % 488175. 16 g 16 /min 121 mm[Hg] 87 mm[Hg] Not Available [employer] 4 21:44:22 Date Recorded Heart rate Respiratory rate Body temperature Oxygen saturation Oxygen saturation in Arterial blood by Pulse oximetry Systolic blood pressure Diastolic blood pressure Systolic blood pressure Diastolic blood pressure Provider Name and Address Organization Details Last Updated DateTime 4 105 /min 16 /min 98.7 [degF] 95 % 95 % 114 mm[Hg] 81 mm[Hg] 85 mm[Hg] 51 mm[Hg] Not Available [employer] 4 14:41:24 Date Recorded Respiratory rate Heart rate Body weight Body temperature Oxygen saturation Oxygen saturation in Arterial blood by Pulse oximetry Heart rate Respiratory rate Systolic blood pressure Diastolic blood pressure Systolic blood pressure Diastolic blood pressure Provider Name and Address Organization Details Last Updated DateTime 4 16 /min 74 /min 76170.4 4 g 98.3 [degF] 98 % 98 % 84 /min 20 /min 114 mm[Hg] 84 mm[Hg] 120 mm[Hg] 86 mm[Hg] Not Available [employer] 4 18:31:50 Date Recorded Oxygen saturation Oxygen saturation in Arterial blood by Pulse oximetry Body temperature Respiratory rate Heart rate Systolic blood pressure Diastolic blood pressure Provider Name and Address Organization Details Last Updated DateTime 4 98 % 98 % 98.1 [degF] 20 /min 95 /min 150 mm[Hg] 100 mm[Hg] Not Available [employer] 4 11:24:31 Date Recorded Body height Body mass index (BMI) Body weight Provider Name and Address Organization Details Last Updated DateTime 04/27/2024 162.56 cm 33.5 kg/m2 08620.51 g Davina Garner MD 30 [facility],[address] [facility], [place], [phone], [place] - [place] 04/27/2024 20:03:55 Social History None recorded. Functional Status None recorded. Mental Status None recorded. Family History Nothing Reported. Medical History No medical history recorded. Past Encounters Encounter ID Performer Location Encounter Start Date Encounter Closed Date Diagnosis/Indication Diagnosis SNOMED-CT Code Diagnosis ICD10 Code Diagnosis Note [id number] Allison Newman MD [facility] [address] [place] [phone] 04/11/2022 18:32:13 04/15/2022 15:46:34 Cough 09877991 R05.9 [id number] Davina Garner MD [facility] [address] [place] [id number] 01/07/2023 14:14:00 01/07/2023 22:56:53 Essential hypertension 08249438 I10 Patient exam is benign. Patient reassured/ his blood pressure is normal when taken with the medic cough. The medic measured the patient's blood pressure with his 5-year-old home machine and got 135/112 thus it is the patient's machine that is giving erroneous readingsNo te sent to [facility] to reach out to the rn patient care to assist the patient in obtaining a new home blood pressure monitor. Advised to continue all his regular medication s and follow-up with his PCP as needed [id number] Davina Garner MD [facility] [address] [place] [phone] 01/08/2023 15:21:28 01/08/2023 23:59:09 Viral upper respiratory tract infection 782254311 J06.9 And viral pharyngiti s-advised to gargle [...] pcp. Sandra Bloom MD [facility] [address] [place] [phone] 06/23/2023 18:11:30 06/24/2023 10:34:59 Dizziness 096850080 R42 [id number] Marlyn Casas MD [facility] [address] [place] [id number] 08/05/2023 10:57:00 08/05/2023 16:00:41 Asthma 650159795 J45.909 Exacerbati on of moderate persistent asthma 426021336 J45.41 [id number] Eric Israel MD [facility] [address] [place] [phone] 08/13/2023 12:51:38 08/13/2023 20:11:05 Acute exacerbation of chronic obstructive pulmonary disease 168610384 J44.1 The patient has a flare-up of his COPD. He will continue his current treatments . [id number] Eric Israel MD [facility] [address] [place] [phone] 11/14/2023 12:02:23 11/14/2023 21:31:15 Vertigo 298661172 R42 This 67-year-ol d male with a past history of vertigo developed mild vertigo today. He has taken Meclizine in the past with good relief. I ordered Meclizine 50 mg now. He will follow-up with his PCP if the vertigo persists. The patient agreed with this plan. [id number] Thomas Lyon MD [facility] [address] [place] [phone] 11/27/2023 21:44:10 11/28/2023 10:18:17 Headache 26298712 R51.9 [id number] Jeancarlos Gonsales MD [facility] [address] [place] [phone] 03/20/2024 14:41:13 03/22/2024 13:41:42 Orthostatic hypotension 71242999 I95.1 Atrial fibrillation 4943 6004 I48.91 [id number] RENU MARIE MD [facility] [address] [place] [id number] 03/31/2024 18:19:08 04/01/2024 11:10:35 Dizziness 815156720 R42 Evaluation in the field was performed by my automobile sales consultant colleague, as noted above, I provided [...] , palpitatio ns or any other concerns. [id number] Marlyn Casas MD [facility] [address] [place] [phone] 04/21/2024 10:14:37 04/22/2024 00:16:20 Asthma-chronic obstructive pulmonary disease overlap syndrome 0526768214 3555897 J44.9 Viral uppe r respiratory tract infection 707966171 J06.9 [id number] Davina Garner MD [facility] [address] [place] [id number] 04/27/2024 11:24:18 04/27/2024 22:19:18 Headache 85451417 R51.9 w/ dizziness- possibly sinusitisS lightly less [...] Young Member ID Guarantor Name 03/31/2024 1 [facility] - DOS PRIOR TO 2022 - DUAL ELIGIBLE (MEDICARE REPLACEMENT/AD VANTAGE - HMO) Min Arauz [id number] Min Arauz 04/27/2024 1 [facility] - DOS ON OR AFTER 2022 - DUAL ELIGIBLE - HALF-WAY OPTIONS AND ONE CARE (MEDICARE REPLACEMENT/AD VANTAGE - HMO) Min Arauz [id number] Min Arauz Notes Date Note Type Note Provider Name and Address Organization Details Recorded Time 11/27/2023 text/html [facility] Nurse Triage Notes (Padmini Payne): Reason For Request: high BP Chief Complaints: Hypertension PMH: COPD/Asthma, Hypertension, CHF, Heart Disease, Diabetes Allergies: No Known Comments: Referral taken via Clinical Services Assistant [id number]. Member with elevated BP, 153/112 and 156/120, took his HS medications. Member with headache and dizziness, denies chest pain, mild sob, but is not new, denies any arm or jaw pain, no numbness, tingling or weakness anywhere. Member would like to be evaluated. ...................... ...................... ...................... ...................... ...................... ...................... ......... Trials Manager Note From Pradeep Rainey: Smartcare visit [...] ...................... ......... Disposition: Fulfilled Thomas Lyon MD [address] [place] [address],[address], [place], [phone] 11/27/2023 23:06:36 03/20/2024 text/html This was a super vised home visit with automobile sales consultant Rivas Thapa. [facility] Nurse Triage Notes (Dov Lainez): Reason For Request: Patient was dizzy, fell, and hurt himself, possibly bp problems - Chief Complaints: Dizziness PMH: COPD/Asthma, Hypertension, Congestive Heart Failure, Coronary Artery Disease, Gastroesophageal Reflux Disease (GERD) Comments: Ranch Helper verified the Pt.'s name//address and phone number. [...] Concerns expressed - PT declines ER treatment. Trials Manager Organization Information for Rivas Thapa Legal Name: [facility] Transportation Address: [address] [place] [address], [place] [address], Quality Control Systems Manager: Byron CAUSEY No.: [id number] Trials Manager POC Test Results from Rivas Thapa EKG (14:32:21) EKG test performed. Attachments uploaded as part of this test result can be found under Documents section. ...................... ...................... ...................... ...................... ...................... ...................... ......... Trials Manager Note From Rivas Thapa: This 68-year-old [...] necessary. Patient agreeable to ambulance transport to [facility] emergency department. 911 initiated and verbal SBAR given to [facility] ALS crew. ...................... ...................... ...................... ...................... ...................... ...................... ......... [facility] Consulted: Jeancarlos Gonsales ...................... ...................... ...................... ...................... ...................... ...................... ......... Disposition: Fulfilled Jeancarlos Gonsales MD [address] [place] [address],[address], [place], [phone], [facility] 03/20/2024 18:19:45 03/31/2024 text/html [facility] Nurse Triage [...] ...................... ...................... ...................... ...................... ...................... ...................... ......... Trials Manager Note From Chuy Finn: Pt had [...] [facility] Baci contacted and advised pt of signs indicating the ER, Drink plenty of fluids, Monitor symptoms. Allergies Discussed. ...................... ...................... ...................... ...................... ...................... ...................... ......... [facility] Consulted: Renu Marie ...................... ...................... ...................... ...................... ...................... ...................... ......... Disposition: Syed RENU MARIE MD 30 [facility],[address], [place], [phone], [facility] 03/31/2024 23:40:49 04/27/2024 text/html [facility] Nurse Triage [...] morning. Patient would like to be re-evaluated. Trials Manager Organization Information for Cheikh Mejia Legal Name: [employer] Address: [address] [place] [address], Quality Control Systems Manager: Parish Ruiz MD CLIA No.: [id number] Trials Manager POC Test Results from Cheikh Mejia [...] ...................... ...................... ...................... ...................... ...................... ...................... ......... Trials Manager Note From Cheikh Mejia: Dispatched for the scheduled visit for the male patient with a headache. pt. was found alert and oriented x3 sitting in bed c/o of a severe headache from yesterday with dizziness upon sitting up. pt. noted he had been seen by [facility] on the but could not remember his [...] ...................... ......... Disposition: FulfilledSEGMD: [facility] and diagnosed with COPD exacerbation [...] Kidney Disease, Obesity. Davina Garner MD 30 [facility],[address], [place], [phone], [facility] 04/27/2024 20:33:33
--- OUTSIDE RECORDS SUMMARY | 2024-09-17 12:50 | XMS_ITS | Patient Health Record ---
Author Organization [facility] Address [address] [place] [address] Care Team Providers Care Loading Supervisor Name Role Phone Gemini Fisher M.D. Primary Care Provider Larry Angeles Jr Unavailable Katherine FORTE, Cipriano Unavailable Unavailable Allergies No Known Allergies Reason For Referral No Information Medications Medication SIG (Take, Route, Frequency, Duration) Notes Start Date End Date Status Creon [id number] UNIT TOME 2 C PSULAS POR V [...] Status W/U Status Risk Notes Problem Dysphagia (00410492) Dysphagia (R13.10) Active confirmed Problem 82393874 Dysphagia, unspecified type (R13.10) Active confirmed Problem 951557534 Abnormal barium swallow (R93.3) Active confirmed Problem 563403725 Gastroesophageal reflux disease, unspecified whether esophagitis present (K21.9) Active confirmed Problem 558381036 Presbyesophagus (K22.89) Active confirmed Plan Of Treatment Future Test Test Name Order Date UPPER GI ENDOSCOPY 03/13/2023 Insurance Providers Payer Name Payer Address Payer Phone Subscriber Number Group Number Insured Name Patient Relationship to Insured Coverage Start Date Coverage End Date [facility] [address] Attn Claims CLIFF Peer[place] [id number] KOBE DAILY Self - patient is the insured Medical (General) History Medical History History ICD Code CE/COPD hypertension Fatty liver pulmonary nodule Elevated BMI Atrial fibrillation Hypothyroidism Gastroesophageal reflux disease/dysphagi a Surgical History Surgery Date(Month/Year) Cataract surgery Umbilical hernia repair Tonsillectomy
--- OUTSIDE RECORDS SUMMARY | 2024-09-17 12:51 | XMS_ITS ---
Author Organization [facility] Address [address] [place] [address] Care Team Providers Care Oracle Iam Consultant Name Role Phone Gemini Fisher M.D. Primary Care Provider Abimael Carnes Jr, Larry Unavailable Katherine FORTE, Cipriano Unavailable Unavailable REASON FOR VISIT pathology Encounters Encounter Location Date Provider Diagnosis [facility] [address] [place] [address] 04/14/2023 Larry Carnes Jr Plan Of Treatment No Information Progress Notes * BEN DAILYIODOB: 1955 (67 yo M)Acc No.[id number]:04/14/2023 Patient:?KOBE DAILY :1955???Age:67 Y???Sex:Male Address:[address] [place] [address] [address] , [place], [address] * true * Date:? Generated for Byroni bobby/Aylin/eTransmitting on:?09/17/2024 12:50 PM EDT
--- NOTE | 2024-09-17 12:52 | MHC.OFFVIS ---
Vital Signs 09/17/24 13:06 Height 5 ft 7 in Weight 215 lb 6.266 oz BMI 33.7 BP 111/82 Blood Pressure Location Rt brachial Position Sitting Pulse 95 Pulse Source Pulse Oximeter Pulse Oximetry (%) 96 Oxygen Delivery Method Room Air Intake Visit Reasons: 6 month follow up Intake Note: Patient 6 month follow up for Constipation. Route Cdl Driver Required: Yes Route Cdl Driver Language: Amharic Allergies Iodinated Contrast Media [CONTRAST, IV] Allergy (Unknown, Verified 09/17/24 13:09) HIVES kiwi [KIWI] Allergy (Unknown, Verified 09/17/24 13:09) THROAT SWELLING HPI HPI 6 month follow up: Details: Assessment & Plan (1) Constipation: Code(s): K59.00 - Constipation, unspecified Category: Medical (2) GERD (gastroesophageal reflux disease): Code(s): K21.9 - Gastro-esophageal reflux disease without esophagitis Category: Medical Plan EG[place]IAN #Tachira LIve HE is on pantoprazole, creon, simethicone, senna, and a probiotic. His creon dosing was incorrectly put in as 2 caps qid, I change this to bid. With this he feels he is stable and satisfied with his GI regimen. ROV 6 mos. Medications: Changed From kanmgv-kdjzdelg-tsevevs 36,000-114,000- 180,000 unit 2 caps PO QID 720 caps 1RF To jfyoze-dsbvwmgh-vrutsri 36,000-114,000- 180,000 unit (Creon) 2 caps PO QID 720 caps 1RF Refilled L.acidoph,saliva-B.bif-S.therm 175 mg (Acidophilus Probiotic Blend) 1 cap PO DAILY 30 caps 6RF R14.0 - Abdominal distension (gaseous), K86.89 - Other specified diseases of pancreas pantoprazole 40 mg PO DAILY 30 tabs 6RF simethicone after meals 180 mg PO QID 120 caps 6RF 30 days R14.0 - Abdominal distension (gaseous) sennosides (Senna Laxative) 17.2 mg (2 x 8.6 mg) PO BEDTIME 60 tabs 6RF K59.00 - Constipation, unspecified [facility]OSCOPY [facility], SCHEDULED FOR 09/21/2024 BIOPSY CORRESPONDENCE On 09/09/23 @ 11:46 Noni Guillermo Wrote To Eagle[facility] (2) It is okay I will see him. On 09/09/23 @ 09:24 Vy Waters Wrote To EagleAugust I called the patient and told him that since he was seen by Dr. Carnes and underwent a procedure with him he should follow up with him. The patient almost started crying and saying no I don't want to loose my doctor please . I went because the sent me to him but I don't even know that doctor. He wants to continue following up with you. Please advise. On 09/09/23 @ 08:24 Noni Guillermo Wrote To Vy Waters I am just is confused as you are, but reading Dr. Carnes note looks like he should probably just follow with Dr. Carnes in cancel the appointment with me. I have no idea why he ended up with Dr. Carnes On 09/08/23 @ 17:27 Vy Waters Wrote To Eagle I'm a little confused, it seems like this patient saw Dr. Carnes in his office and underwent EGD with him on 04/01/23. I'm not sure if you're aware or he should continue following up with Dr. Carnes. Please ad TODAY'S VISIT EGYPTIAN #Marta Live HE is on pantoprazole, creon, simethicone, senna, and a probiotic. His arm is in a sling today, he is having a lot of left arm pain and it is in a sling today. He just has xrays, apparently there is no dx yet. He continues to do well, however, due to a computer error he was taking 2 creon qid, instead of bid. We review this and he will change the dosing to decrease the pill burden. If he feels this is not effective we will re consider. Return office visit in 6 months [facility] Medical History Pre-op examination Colon cancer screening Hoarseness Dysphagia Throat disorder Bronchitis CHF (congestive heart failure) Afib Allergic rhinitis COPD (chronic obstructive pulmonary disease) CE (obstructive sleep apnea) Obesity (BMI 30-39.9) Hypothyroid Anxiety Palpitation HTN (hypertension) Surgical History Hx of umbilical hernia repair History of surgery on arm Hx of eye surgery Hx of colonoscopy Hx of knee surgery Hx of tonsillectomy Family History Family/Other No problems noted. Social History Household Members: None Housing: Apartment Do you presently have visiting nurse or other home services: Yes Alcohol intake: former Patient Tobacco Use Status: Former Tobacco user Advance Directives Date on File: 08/11/23 service: No Review of Systems Const Denies fatigue, Denies fever(s), Denies night sweats, Denies poor appetite and Denies weight loss ENT Reports Normal hearing present, Denies dental pain, Denies dysphagia, Denies hearing loss, Denies mouth pain, Denies odynophagia, Denies throat swelling, Denies tongue swelling and Reports other (Dentition adequate) Card Reports no additional complaints Resp Reports no additional complaints GI Details: Denies abdominal pain, Denies melena, Reports bloating, Denies hematochezia, Reports constipation, Denies GI cramping, Denies dysphagia, Denies excessive flatus, Denies early satiety, Reports heartburn, Denies diarrhea, Denies nausea, Denies odynophagia, Denies vomiting and Denies hematemesis Skin/Breast Denies pruritus, Denies lesions, Denies rash and Denies jaundice Neuro Reports Normal hearing present and Denies Abnormal speech present Endo Denies fatigue Aller/Immun Denies throat swelling and Denies tongue swelling Physical Exam Const General: cooperative, no acute distress, well developed and well groomed Nutritional Appearance: well nourished and obese Orientation/consciousness: oriented to person, oriented to place and oriented to time Limitations: language barrier HEENT Head: Yes normocephalic and Yes atraumatic Eyes General: appearance normal, both eyes and all related structures Pupils: Equal, round and reactive pupils present Neck Neck: Yes normal visual inspection and Yes no lymphadenopathy Thyroid: Thyroid normal Resp Effort & Inspection: normal respiratory effort and able to speak in complete sentences Auscultation: clear to auscultation bilaterally Cardio Rate: regular rate Rhythm: regular rhythm Heart sounds: Normal, physiologic split S2 sound present Peripheral pulses: radial pulses present and posterior tibial pulses present GI Inspection: No distended, No Abdominal panniculus present and Yes obesity Palpation (GI): Soft to palpation, nontender, no guarding, not rigid and No hepatosplenomegaly present Percussion: Yes normal to percussion Auscultation: normal bowel sounds Rectal Exam - Male: Yes deferred Skin General skin exam: no rashes or lesions noted, turgor normal, skin not dry, no jaundice, No spider nevi and no striae Rashes: no rashes Nails: normal Neuro General: oriented to person, oriented to place and oriented to time Cranial nerves: Yes Equal, round and reactive pupils present and Yes Normal hearing present Speech: No Abnormal speech present Extrem General: Yes normal to inspection, No clubbing, No cyanosis and No edema Psych Appearance: grossly normal and well kempt Mental Status: mental status grossly normal Speech and movement: Normal speech and movement present Affect: normal affect Attitude: cooperative Thought process: Normal thought process present and not confabulating Thought content: Normal thought content present Insight: Limited insight present (Psych) Judgement: Limited judgement present (Psych) Assessment & Plan Assessment & Plan (1) GERD (gastroesophageal reflux disease): Code(s): K21.9 - Gastro-esophageal reflux disease without esophagitis Category: Medical (2) Hx of colonoscopy: Comment: 02/2024=hyperplastic polyps kandice repeat 1 year r/t poor prep; 02/2013 Dr. Robles Code(s): Z98.890 - Other specified postprocedural states Category: Surgical (3) Constipation: Code(s): K59.00 - Constipation, unspecified Category: Medical Plan EG[place] #Marta Live HE is on pantoprazole, creon, simethicone, senna, and a probiotic. His arm is in a sling today, he is having a lot of left arm pain and it is in a sling today. He just has xrays, apparently there is no dx yet. He continues to do well, however, due to a computer error he was taking 2 creon qid, instead of bid. We review this and he will change the dosing to decrease the pill burden. If he feels this is not effective we will re consider. Return office visit in 6 months Medications: Changed From pflpsk-mhzmdywn-gxrkrfm 36,000-114,000- 180,000 unit (Creon) 2 caps PO QID 720 caps 1RF To wzcxsb-siiywdbz-djiyoqo 36,000-114,000- 180,000 unit (Creon) 2 caps PO BID 360 caps 1RF Refilled pantoprazole 40 mg PO DAILY 30 tabs 6RF sennosides (Senna Laxative) 17.2 mg (2 x 8.6 mg) PO BEDTIME 60 tabs 6RF K59.00 - Constipation, unspecified simethicone after meals 180 mg PO QID 30 days 120 caps 6RF R14.0 - Abdominal distension (gaseous) Coding Level of Care Code Est Pt Level 3 (05234) Diagnoses GERD (gastroesophageal reflux disease) K21.9 Hx of colonoscopy Z98.890 Constipation K59.00
[2024-09-17 13:06] VITALS: BP 111/82; PULSE 95; O2SAT 96; BMI 33.7
== END 2024-09-17 13:23 | disposition home or self-care (01) ==
LOC: HO.HGI 12:47
PROVIDERS: PCP Internal Medicine; Visit Provider Nurse Practitioner
DX: K21.9 Gastro-esophageal reflux disease without esophagitis (principal); Z98.890 Other specified postprocedural states; K59.00 Constipation, unspecified
CPT/HCPCS: 99213

== ENCOUNTER → 2024-09-17 12:46 | Outpatient (BNVA) | payer OTHER, SELFPAY | PROVIDERS: PCP Internal Medicine; Visit Provider Nurse Practitioner | DX: K59.00 Constipation, unspecified (principal); K21.9 Gastro-esophageal reflux disease without esophagitis; R14.0 Abdominal distension (gaseous); Z98.890 Other specified postprocedural states | CPT/HCPCS: 99212 ==

== ENCOUNTER 2024-10-01 15:15 | Emergency (ER) | payer OTHER, SELFPAY ==
[2024-10-01] VITALS (7 sets, daily range): BP systolic 100–119; BP diastolic 67–76; PULSE 70–97; RESP 11–18; TEMP 36.4–36.9; O2SAT 95–100; BMI 35.1
--- NOTE | ~2024-10-01 | XR_ITS ---
CLINICAL HISTORY: sob 1 view chest x-ray Comparison: CR/SR - XR CHEST 1V - 07/22/24 12:46 EDT Findings: Mild peribronchial thickening may be bronchitis. No consolidation, pleural effusion or pneumothorax. Normal heart size. Aortic atherosclerosis. No acute fracture. IMPRESSION: Mild peribronchial thickening may be bronchitis. No consolidation. This document has been electronically signed by: Sky Noguera MD on 10/01/2024 19:35:49
--- OUTSIDE RECORDS SUMMARY | 2024-10-01 15:49 | XMS_ITS | Continuity of Care Document ---
Author Organization [facility] Address [address] [place] [address] Care Team Providers Care Manager Assurance Name Role Phone MARYLINUS PEREZRONALDO Primary Care Provider [phone] [facility] OTHER Assessment Encounter Date Assessment Date Assessment LastModified by Organization Details LastModified Time 09/29/2024 09/29/2024 Impression: 68yo/m with pmhx as above presenting with 3-4 days of persistent respiratory symptoms. Patient states symptoms began 4 days ago, [facility] Evaluation at that time was re-assuring, negative for covid/flu, had wheezing and cough, treated as mild COPD. Patient states symptoms improving, taking albuterol 4 times a day, although today last dose with this morning. No new chest pain, dyspnea, back pain, pleurisy. No new fevers/chills, nausea/vomiting , abdominal pain. No LE edema, orthopnea, PND. Denies other ROS. On exam he is awake, alert, in no distress. Mildly hypertensive at 150/90, however no tachycardia, no tachypnea, no hypoxia. He is breathing comfortably, no increased work of breathing, but has diffuse expiratory wheezes throughout. No crackles or rhonchi. No LE edema or asymmetry. Denies other ROS. Exam otherwise WNL. Plan: Patient with persistent symptoms although state is improving on current regimen. Evaluation is re-assuring for medic, is breathing comfortably, in no distress, no new signs or symptoms of illness. Covid and flu were negative on last visit, he is on 3 day of prednisone. I believe it's reasonable to add an antibiotic to his regimen for outpatient COPD management, will send augmentin rx to his pharmacy, recommend he continue albuterol 4 times a day, and followup with PMD in 24-48 hours for recheck and discuss CXR if symptoms are not improving. I have a lower clinical suspicion at this time for an occult emergency medical condition such as ACS, PE, aortic dissection, AAA, ARDS, sepsis, CHF. Discharged from visit with mandatory timed followup and strict return instructions reviewed. Primary care, consider 48 hour followup and outpatient CXR if symptoms persist. Disposition: We discussed the diagnostic uncertainty of home visits and the risk associated with this. In this case, the patient and I felt this to be an acceptable and reasonable amount of risk given the benefit of avoiding an ED visit. We discussed the need to seek care urgently/emerge ntly in the setting of any new or worsening serious symptoms [email or web address] Not available 09/29/2024 15:23:11 Plan of Treatment Reminders Order Date Submit Date Provider Last Modified By Organization Details Last Modified Time Details Appointments Urgent Care 2024 01:23P Hollis Garner MD Not available Not available Not available Lab None recorded. Referral None recorded. Procedures None recorded. Surgeries None recorded. Imaging None recorded. Medication Orders ipratropi um 0.5 mg-albute rol 3 mg (2.5 mg base)/3 mL nebulizat ion soln 2024 025 [email or web address] [id number], [address] [place], [address], 09/29/2024 15:23:32 amoxicill in 875 mg-potass ium clavulana te 125 mg tablet 2024 025 WERNER [id number], [address] [place], [address], 09/29/2024 15:23:55 Patient TargetsNo targets recorded. Patient InstructionsNo instructions recorded. Reason for Referral None Reported. Results Created Date Observation Date Name Description Value Unit Range Abnormal Flag Note LastModifiedBy Organization Detail LastModifiedTime 10/02/19 25 tanya schuster am No observ ation record ed. [email or web address] [address], [address] 10/01/2024 13:30:59 Result Notes None recorded. Medical Equipment None Reported. Allergies Allergen ID Allergen Name Allergen Category Reaction Reaction Severity Criticality Documentation Date Start Date Code Code System Note Provider Name and Address Organization Details Recorded Time 04627 Iodinated contrast media (substanc e) medicatio n Not available Not available Not available 09/29/2024 99079 2003 SNOMED Not Available [facility] - production 5 13:32:48 Medications Name Sig Start Date Stop Date [...] mg/3 mL (0.083 %) solution for nebulization Inhale 3 mL 4 times a day by nebulizatio n route for 5 days. 2024 active Not Available Not Available Not Avai lable azithromycin 250 mg tablet TOME 2 TABLETAS [...] No t Available prednisone 20 mg tablet Take 2 tablets every day by oral route for 5 days. 2024 active Not Available Not Available Not Avai lable clonazepam 1 mg tablet TOME 1 TABLETA [...] t Available loratadine 10 mg tablet TOME [place] TABLETA TODOS LOS D CUANDO SEA NECESARIO FOR ALLERGIES active Not Available Not Available No t Available amoxicillin 875 mg-potassium clavulanate 125 mg tablet Take 1 tablet every 12 hours by oral route for 5 days. 2024 active Not Available Not Available Not Avai lable Ventolin HFA 90 mcg/actuatio n aerosol inhaler [...] Available No t Available Vitals Date Recorded Respiratory rate Heart rate Body temperature Oxygen saturation Oxygen saturation in Arterial blood by Pulse oximetry Systolic blood pressure Diastolic blood pressure Provider Name and Address Organization Details Last Updated DateTime 5 20 /min 80 /min 98.5 [degF] 97 % 97 % 150 mm[Hg] 90 mm[Hg] Not Available [facility] - production 5 15:07:54 Social History None recorded. Functional Status None recorded. Mental Status None recorded. Family History Nothing Reported. Medical History No medical history recorded. Past Encounters Encounter ID Performer Location Encounter Start Date Encounter Closed Date Diagnosis/Indication Diagnosis SNOMED-CT Code Diagnosis ICD10 Code Diagnosis Note [id number] Blaidmir Ureña MD [facility] [address] [place] [phone] 09/27/2024 11:58:02 09/27/2024 18:16:19 Viral upper respiratory tract infection 962329898 J06.9 Acute exac erbation of chronic obstructive pulmonary disease 029496288 J44.1 [id number] Bladimir Ureña MD [facility] [address] [place] [phone] 09/29/2024 15:07:52 09/29/2024 18:34:43 Persistent cough 719502898 R05.3 Health Concerns Section Related Observation LastModified by Organization Detai ls LastModified Time None Recorded Concern Status LastModified by Organization Details LastModified Time None Recorded Payers Encounter Date Sequence Insurance Name Policy Number Policy Young Covered Member ID Young Member ID Guarantor Name 09/29/[address] [facility] - DOS ON OR AFTER 2022 - DUAL ELIGIBLE - RESIDENTIAL OPTIONS AND ONE CARE (MEDICARE REPLACEMENT/AD VANTAGE - HMO) Min Arauz [id number] Min Arauz Notes Date Note Type Note Provider Name and Address Organization Details Recorded Time 09/29/2024 text/html HPI: No busser needed as this 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 Call returned to Min Cano via [email or web address] Health Inspector as this sheet writer is remote to triage below. Reports having sx of cough, intermittent SOB since Friday. Denies any CP. PT having intermittent wheezing. No fever. Pt having ST and runny nose. NO homekit for COVID-19. Pt alert, oriented. Speaking clearly with noted hoarseness. Pt offered our walk in center. Prefers [facility] referral. Confirmed Demographics and allergies. ...................... ...................... ...................... ...................... ...................... ...................... ......... [facility] Nurse Triage Notes (Kaitlyn Kline): Reason For Request: breathing problems Chief Complaints: Breathing Problems, Cough, Sore Throat PMH: COPD/Asthma, Hypertension, Congestive Heart Failure, Coronary Artery Disease, Gastroesophageal Reflux Disease (GERD), Chronic Kidney Disease, Obesity PMH Reviewed at 09/29/2024:32 Allergies Reviewed at 09/29/2024:32 Comments: HPI reviewed ...................... ...................... ...................... ...................... ...................... ...................... ......... Dental Equipment Repairer Note From Chavo Romero: SC12 dispatched to address listed above for the report of a male libertarian with breathing issues. Arrival on scene, patient was found inside seated in chair, alert and oriented x4, patent airway, breathing slightly labored but still speaking in complete sentences, skin WPD. +/= Chest rise. +SOB, -CP, -NVD, -Trauma, -Fever. GCS 15. Lung sounds revealed diffuse wheezing upon expiration. Abdomen Soft, non tender. No pitting edema or signs of fluid overload noted. Patient reports that he has been experiencing increasing shortness of breath since 09/26 with history of asthma and CHF. Patient advised that he was visited by [facility] over 09/27 for same complaints, tested negative for COVID/FLU, and was prescribed a 5 day course of Prednisone. Patient reports that he has been taking his Albuterol Nebulizer 4 times a day with the last treatment being this morning at about 0700, patient reports improvement in symptoms with both Albuterol and Prednisone, advised that he has only taken 2 days of Prednisone. Patient reports normal food/fluid intake, reports medication compliance. Patient denies any other symptoms indicative of viral infection such as body aches, fevers, chills, congestion etc. Patient vital signs obtained as noted. [facility] consulted, provided orders for a Duoneb treatment, advised he would send prescription for antibiotics to patient preferred pharmacy. Above DuoNeb treatment (3mg Albuterol and 0.5mg Ipratropium Larimer) was administered without incident with reported improvement, six patient rights verified prior. Patient reported that he was feeling much better after nebulizer treatment, advised that he felt okay staying home. Patient advised to continue taking his nebulizer up to 4 times a day per [facility], Prednisone, and Antibiotics when he picks it up. Red flags were discussed with patient, advised to call 911 if he begins to experience life threatening symptoms. SC12 Clear. [facility] Medication Orders: ipratropium 0.5 mg-albuterol 3 mg (2.5 mg base)/3 mL nebulization soln: Administered ...................... ...................... ...................... ...................... ...................... ...................... ......... [facility] Consulted: Bladimir Ureña ...................... ...................... ...................... ...................... ...................... ...................... ......... Disposition: Syed Ureña MD [address] [facility],[address], [place], [address], JANICE LOUIS 09/29/2024 17:30:47
--- NOTE | 2024-10-01 18:38 | ECG_ITS ---
Test Reason : SOB Blood Pressure : */* mmHG Vent. Rate : 83 BPM Atrial Rate : * BPM P-R Int : * ms QRS Dur : 86 ms QT Int : 354 ms P-R-T Axes : * 35 23 degrees QTcB Int : 415 ms Atrial fibrillation Abnormal ECG When compared with ECG of 26-Aug-2024 05:04, Nonspecific T wave abnormality no longer evident in Lateral leads Referred By: Zenaida Zaragoza Electronically Signed By: Jez Welch
--- NOTE | 2024-10-01 18:43 | ED.SOB ---
HPI - SOB/Dyspnea General Chief Complaint: Dyspnea Stated Complaint: sob hx 5 days neb treatment, wheezing Time Seen by Provider: 10/01/24 16:28 History of Present Illness HPI Narrative: Patient is a 68-year-old male presents today with having increasing shortness of breath. Positive history of COPD. Started on steroid and Augmentin with a history of congestive heart failure. Patient complaining symptoms not improving. No fever no chills. No chest pain or diaphoresis. No nausea no vomiting. Positive coughing upper respiratory symptoms. Symptoms not made worse with lying down. There is no leg swelling. No history of blood clots. Never had to be hospitalized for COPD/CHF Related Data Home Medications ?Medication ?Instructions ?Recorded ?Confirmed apixaban 5 mg tablet 5 mg PO BID 05/24/20 09/15/24 cholecalciferol (vitamin D3) 50 50 mcg PO DAILY 05/24/20 09/15/24 mcg (2,000 unit) tablet clonazepam 1 mg tablet 1 mg PO BID PRN Anxiety 05/24/20 09/15/24 hydroxyzine pamoate 25 mg capsule 25 mg PO BID PRN Anxiety 05/24/20 09/15/24 levothyroxine 100 mcg tablet 100 mcg PO DAILY 05/24/20 09/15/24 lisinopril 40 mg tablet 40 mg PO DAILY 05/24/20 09/15/24 metoprolol succinate 200 mg 200 mg PO DAILY 05/24/20 09/15/24 tablet,extended release 24 hr rosuvastatin 40 mg tablet 40 mg PO DAILY 05/24/20 09/15/24 zolpidem 10 mg tablet 10 mg PO BEDTIME PRN Insomnia 05/24/20 09/15/24 albuterol sulfate 2.5 mg/3 mL 3 mg inhalation QID PRN Shortness 03/20/21 09/15/24 (0.083 %) solution for nebulization Of Breath Or Wheezing diclofenac sodium 1 % topical gel 2 g topical QID 08/08/23 09/15/24 vitamin E (dl, acetate) 45 mg (100 45 mg PO DAILY 08/08/23 09/15/24 unit) capsule umeclidinium 62.5 mcg/actuation 1 inh inhalation DAILY 03/17/24 09/15/24 blister powder for inhalation (Incruse Ellipta) furosemide 40 mg tablet 40 mg PO Q2D 05/25/24 09/15/24 meclizine 25 mg tablet 25 mg PO DAILY 05/25/24 09/15/24 metformin 500 mg tablet 500 mg PO BID 05/25/24 09/15/24 hydrochlorothiazide 25 mg tablet 25 mg PO DAILY 09/15/24 09/15/24 Previous Rx's ?Medication ?Instructions ?Recorded epinephrine 0.3 mg/0.3 mL 0.3 mg (0.3 mL) IM Q4H PRN 04/07/23 injection, auto-injector (EpiPen anaphylaxis #2 ea 2-Blaise) albuterol sulfate 90 mcg/actuation 2 puff PO Q6H PRN shortness of 12/23/23 aerosol inhaler (Ventolin HFA) breath or wheezing #18 ea bisacodyl 5 mg tablet,delayed 10 mg (2 x 5 mg) PO BEDTIME 2 days 02/04/24 release (Dulcolax (bisacodyl)) #4 tabs L.acidophil,salivari-Bifido 1 cap PO DAILY #30 caps 03/19/24 bifidum-Strep thermoph 175 mg capsule (Acidophilus Probiotic Blend) fluticasone 250 mcg-salmeterol 50 1 ea PO BID #180 ea 06/23/24 mcg/dose blistr powdr for inhalation (Wixela Inhub) sodium,potassium,mag sulfates 17.5 See Rx Instructions PO .COMPLEX 08/20/24 gram-3.13 gram-1.6 gram oral soln #354 mL (Suprep Bowel Prep Kit) [id number] 2 cap PO BID #360 caps 09/17/24 36,000-114,000-180,000 unit capsule,delay rel (Creon) pantoprazole 40 mg tablet,delayed 40 mg PO DAILY #30 tabs 09/17/24 release sennosides 8.6 mg tablet (Senna 17.2 mg (2 x 8.6 mg) PO BEDTIME 09/17/24 Laxative) #60 tabs simethicone 180 mg capsule 180 mg PO QID 30 days #120 caps 09/17/24 prednisone 20 mg tablet 40 mg (2 x 20 mg) PO DAILY #10 tabs 10/01/24 tramadol 50 mg tablet 50 mg PO BEDTIME 7 days #7 tabs 10/01/24 Allergies Allergy/AdvReac Type Severity Reaction Status Date / Time Iodinated Contrast Media Allergy Unknown HIVES Verified 10/01/24 15:41 [CONTRAST, IV] kiwi [KIWI] Allergy Unknown THROAT Verified 10/01/24 15:41 SWELLING Review of Systems Review of Systems: Positive shortness of breath Positive coughing upper respiratory symptoms PMFSH Past Medical History Attestation statement: The following information was validated with the patient. Medical History Hoarseness Dysphagia Colon cancer screening Throat disorder Bronchitis CHF (congestive heart failure) Afib Allergic rhinitis COPD (chronic obstructive pulmonary disease) CE (obstructive sleep apnea) Obesity (BMI 30-39.9) Hypothyroid Anxiety Palpitation HTN (hypertension) Surgical History Hx of umbilical hernia repair History of surgery on arm Hx of eye surgery Hx of colonoscopy Hx of knee surgery Hx of tonsillectomy Family History Family History Family/Other No problems noted. Social History Social History Household Members: None Housing: Apartment Do you presently have visiting nurse or other home services: Yes Alcohol intake: former Patient Tobacco Use Status: Former Tobacco user Smoked in Last 30 Days: No Use of substances other than those prescribed or required for medical reasons: No Advance Directives: Yes Advance Directives on File: Yes Advance Directives Date on File: 08/11/23 Do you have a plan to hurt others: No Plan service: No Physical Exam Vital Signs: Vital Signs: Last Vital Signs Temp 97.5 F 10/01/24 20:13 Pulse 97 10/01/24 20:13 Resp 11 L 10/01/24 20:13 BP 107/67 10/01/24 20:13 Pulse Ox 99 10/01/24 20:13 O2 Del Method Room Air 10/01/24 20:13 BMI result Body Mass Index 35.1 Appearance: Alert. Oriented X3. No acute distress. Eyes: Pupils equal, round and reactive to light. ENT: Pharynx normal. Neck: Normal inspection. Neck supple. No lymph nodes noted. No crepitus CVS: Normal heart rate and rhythm. Pulses normal. Normal S1 and S2 Respiratory: No respiratory distress. Breath sounds normal. No Wheezing. No rales Abdomen: Soft and nontender. No rigidity. No distention. good BS x4 Skin: Skin warm and dry. Normal skin color. Normal skin turgor. Extremities: No lower extremity edema. Neurovascular intact to all extremities. No Lacerations. No Rash Neuro: Oriented X 3. No motor deficit. No sensory deficit. Moving all extermities. No slurred speech Medications Administered Discontinued Medications Generic Name Dose Route Start Last Admin Trade Name Paulq PRN Reason Stop Dose Admin Albuterol Sulfate 2.5 mg 10/01/24 18:40 10/01/24 19:19 Albuterol Sulfate (0.083%) 2.5 Mg/3 Ml Vial.Neb INHALE 10/01/24 18:41 2.5 mg ONCE ONE Administration Albuterol/Ipratropium 3 ml 10/01/24 18:40 10/01/24 19:19 Albuterol/Iprat 2.5/0.5mg 3 Ml Ampul.Neb INHALE 10/01/24 18:41 3 ml ONCE ONE Administration Methylprednisolone Sodium Succinate 60 mg 10/01/24 18:41 10/01/24 19:44 Methylprednisolone Sod Succ 125 Mg Vial IVPUSH 10/01/24 18:42 60 mg ONCE ONE Administration Medical Decision Making Medical Decision Making [facility] Narrative: Patient given nebulized treatment. My interpretation patient's chest x-ray was grossly negative for pneumonia. I reviewed radiology's reading. Patient is troponin is less than 2.7 BNP is 134 no signs of congestive heart failure as this is baseline. COVID flu RSV were all negative. Urine was negative. After neb treatment patient's symptomatically feels improved. Ambulated well O2 sat maintained at greater than 95% on room air. Urine was negative for infection. Patient wants to go home. Will continue steroid. Will have patient use additional inhalers at home. Close follow-up with his primary on an outpatient basis. Differential Diagnosis Differential Diagnoses: The differential diagnosis associated with the presentation includes Asthma, CHF, pneumonia Admission/Observation Consideration of admission/observation: Escalation of care including admission/observation considered Lab Data [facility] Lab Attestation statement: I reviewed the patient's lab results. 10/01/24 18:56 10/01/24 18:56 Labs: Lab Results 10/01/24 10/01/24 Range/Units 18:56 19:15 WBC 11.1 H (4.8-10.8) X10*3/uL RBC 4.19 L (4.60-5.80) X10*6/uL Hgb 13.2 L (14.0-18.0) g/dl Hct 37.4 L (42.0-52.0) % MCV 89.3 (80.0-98.0) fL MCH 31.5 (27.0-33.0) pg MCHC 35.3 (31.0-36.0) g/dl RDW 12.7 (11.0-16.0) % Plt Count 203 (160-400) X10*3/uL MPV 9.4 (9.4-12.4) fL Immature Gran % (Auto) 0.6 H (0.0-0.4) % Neut % (Auto) 89.6 H (45-73) % Lymph % (Auto) 6.1 L (20-40) % Churchill % (Auto) 3.6 (2-11) % Eos % (Auto) 0.0 (0-4) % Baso % (Auto) 0.1 (0-2) % Lymph # (Auto) 0.7 L (1.2-4.9) X10*3/uL Churchill # (Auto) 0.4 (0.1-1.2) X10*3/uL Eos # (Auto) 0.0 (0.0-0.4) X10*3/uL Baso # (Auto) 0.0 (0.0-0.2) X10*3/uL Abs Immat Gran (auto) 0.07 H (0.00-0.03) X10*3/uL Absolute Neuts (auto) 9.9 H (2.0-8.3) x10*3/uL Absolute Nucleated RBC 0.000 (0.0-0.012) X10*3/uL Nucleated RBC % (auto) 0.0 (0.0-0.2) /100WBC Sodium 143 (135-145) mmol/L Potassium 4.9 (3.3-5.1) mmol/L Chloride 109 H (96-108) mmol/L Carbon Dioxide 23 (22-29) mmol/L Anion Gap 16 (12-20) BUN 45 H (9-16) mg/dL Creatinine 1.23 (0.5-1.4) mg/dL Estim Creat Clear Calc 63.1 Estimated GFR 59 Random Glucose 117 H (60-115) mg/dL Calcium 9.5 (8.4-10.2) mg/dL Total Bilirubin 0.9 (0.0-1.0) mg/dL Direct Bilirubin 0.3 (0.0-0.5) mg/dL AST 18 (5-37) U/L ALT 42 H (0-40) U/L Alkaline Phosphatase 43 (39-117) U/L Troponin I High Sens < 2.7 (<3.5-35.0) ng/L B-Natriuretic Peptide 134 H (<100) pg/mL Total Protein 6.9 (6.5-8.0) g/dL Albumin 4.3 (3.5-5.0) g/dL Urine Color Yellow Urine Appearance Clear Urine pH 5.0 (5.0-9.0) Ur Specific [place] 1.015 (1.005-1.025) Urine Protein Negative (Neg-Trace) mg/dL Urine Glucose (UA) Negative (Negative) mg/dL Urine Ketones Negative (Negative) mg/dL Urine Blood Negative (Negative) Urine Nitrite Negative (Negative) Ur Leukocyte Esterase Negative (Negative) Urine RBC 0-2 (0-2) /HPF Urine WBC 0-5 (0-5) /HPF Ur Squamous Epith Cells 0-2 (0-2) /HPF Urine Bacteria None Seen (None Seen) Hyaline Casts 0-2 (0-2) /LPF Influenza Type A (PCR) NEGATIVE (Negative) Influenza Type B (PCR) NEGATIVE (Negative) RSV RNA Qual (PCR) NEGATIVE (Negative) SARS-CoV-2 RNA (RT-PCR) NEGATIVE (Negative) Independent Interpretation I performed an independent interpretation of an: EKG (My interpretation of patient's EKG showed an atrial fibrillation heart rate is approximately 70 QRS QTC normal no acute ST segment elevation. No change from previous) and Plain X-Ray (My interpretation patient's chest x-ray is grossly negative for pneumonia pneumothorax) Radiology Impression Discussion of test interpretation with radiology: I have reviewed the radiologist's reading. External Record Review External record reviewed: Inpatient record Social Determinants Patient?s care significantly limited by Social Determinants of Health including: Problems related to primary support group Discharge Plan Discharge Clinical Impression: Asthma Patient Disposition: Home, Self-Care Instructions: Asthma (DC) Prescriptions: New prednisone 20 mg tablet 40 mg PO DAILY Qty: 10 0RF No Action albuterol sulfate [Ventolin HFA] 90 mcg/actuation HFA aerosol inhaler 2 puff PO Q6H PRN (Reason: shortness of breath or wheezing) Qty: 18 0RF fluticasone propion-salmeterol [Wixela Inhub] 250-50 mcg/dose blister with device 1 ea PO BID Qty: 180 1RF sodium,potassium,mag sulfates [Suprep Bowel Prep Kit] 17.5-3.13-1.6 gram recon soln See Rx Instructions PO .COMPLEX Qty: 354 0RF Rx Instructions: DILUTE; drink 1/2 at 6-8 pm and half at 11 PM- 1AM tramadol 50 mg tablet 50 mg PO BEDTIME 7 Days Qty: 7 0RF epinephrine [EpiPen 2-Blaise] 0.3 mg/0.3 mL auto-injector 0.3 mg IM Q4H PRN (Reason: anaphylaxis) Qty: 2 0RF vitamin E (dl, acetate) 45 mg (100 unit) capsule 45 mg PO DAILY diclofenac sodium 1 % gel 2 g topical QID furosemide 40 mg tablet 40 mg PO Q2D zolpidem 10 mg tablet 10 mg PO BEDTIME PRN (Reason: Insomnia) hydroxyzine pamoate 25 mg capsule 25 mg PO BID PRN (Reason: Anxiety) cholecalciferol (vitamin D3) 50 mcg (2,000 unit) tablet 50 mcg PO DAILY lisinopril 40 mg tablet 40 mg PO DAILY apixaban 5 mg tablet 5 mg PO BID clonazepam 1 mg tablet 1 mg PO BID PRN (Reason: Anxiety) rosuvastatin 40 mg tablet 40 mg PO DAILY metoprolol succinate 200 mg tablet extended release 24 hr 200 mg PO DAILY levothyroxine 100 mcg tablet 100 mcg PO DAILY albuterol sulfate 2.5 mg /3 mL (0.083 %) solution for nebulization 3 mg inhalation QID PRN (Reason: Shortness Of Breath Or Wheezing) bisacodyl [Dulcolax (bisacodyl)] 5 mg tablet,delayed release (DR/EC) 10 mg PO BEDTIME 2 Days Qty: 4 0RF metformin 500 mg tablet 500 mg PO BID Incruse Ellipta 62.5 mcg/actuation blister with device 1 inh inhalation DAILY meclizine 25 mg tablet 25 mg PO DAILY Ladonnaacidmariela,saliva-Bvelma-Leahtherm [Acidophilus Probiotic Blend] 175 mg capsule 1 cap PO DAILY Qty: 30 6RF pantoprazole 40 mg tablet,delayed release (DR/EC) 40 mg PO DAILY Qty: 30 6RF Creon 36,000-114,000- 180,000 unit capsule,delayed release(DR/EC) 2 cap PO BID Qty: 360 1RF sennosides [Senna Laxative] 8.6 mg tablet 17.2 mg PO BEDTIME Qty: 60 6RF simethicone 180 mg capsule 180 mg PO QID 30 Days Qty: 120 6RF Rx Instructions: after meals hydrochlorothiazide 25 mg tablet 25 mg PO DAILY Referrals: Gemini Chavez MD [Primary Care Provider] - 10/05/24 Print Language: Vincentian
[2024-10-01 19:03] LABS: MANUAL DIFF FLAG NO
[2024-10-01 19:05] LABS: Basophils Percent Auto 0.1 % (0-2); Hematocrit 37.4 % (42.0-52.0); Hemoglobin 13.2 g/dl (14.0-18.0); Imm Gran Abs Auto 0.07 X10*3/uL (0.00-0.03); Imm Gran Pct Auto 0.6 % (0.0-0.4); Lymphocytes Absolute Auto 0.7 X10*3/uL (1.2-4.9); Lymphocytes Percent Auto 6.1 % (20-40); Mean Corpuscular HGB Conc 35.3 g/dl (31.0-36.0); Mean Corpuscular Hemoglobin 31.5 pg (27.0-33.0); Mean Corpuscular Volume 89.3 fL (80.0-98.0); Mean Platelet Volume 9.4 fL (9.4-12.4); Monocytes Absolute Auto 0.4 X10*3/uL (0.1-1.2); Monocytes Percent Auto 3.6 % (2-11); Neutrophils Absolute Auto 9.9 x10*3/uL (2.0-8.3); Neutrophils Percent Auto 89.6 % (45-73); Platelet Count 203 X10*3/uL (160-400); Red Blood Count 4.19 X10*6/uL (4.60-5.80); Red Cell Distribution Width 12.7 % (11.0-16.0); White Blood Count 11.1 X10*3/uL (4.8-10.8)
[2024-10-01] MEDS: Albuterol/Iprat 2.5/0.5MG 3 ML AMPUL.NEB INHALE (19:19)
[2024-10-01] MEDS: Albuterol Sulfate (0.083%) 2.5 MG/3 ML VIAL.NEB INHALE (19:19)
[2024-10-01 19:21] LABS: Alanine Aminotransferase 42 U/L (0-40); Albumin Level 4.3 g/dL (3.5-5.0); Alkaline Phosphatase 43 U/L (39-117); Anion Gap 16 (12-20); Aspartate Amino Transferase 18 U/L (5-37); Bilirubin Direct 0.3 mg/dL (0.0-0.5); Bilirubin Total 0.9 mg/dL (0.0-1.0); Blood Urea Nitrogen 45 mg/dL (9-16); Calcium 9.5 mg/dL (8.4-10.2); Carbon Dioxide 23 mmol/L (22-29); Chloride 109 mmol/L (96-108); Creatinine Clr Calc Pharmacy 63.1; Estimated Glomerular Filt Rate 59; Glucose Random 117 mg/dL (60-115); Potassium 4.9 mmol/L (3.3-5.1); Sodium 143 mmol/L (135-145); Total Protein 6.9 g/dL (6.5-8.0)
[2024-10-01 19:26] LABS: Appearance Urine Clear; Color Urine Yellow; Glucose Urine UA Negative (Negative); Leukocyte Esterase Urine Negative (Negative); Nitrite Urine Negative (Negative); Specific Gravity - Urine 1.015 (1.005-1.025); Urine Blood Negative (Negative); Urine Ketones Negative (Negative); Urine Protein Negative (Neg-Trace)
[2024-10-01 19:27] LABS: B Type Natriuretic Peptide 134 pg/mL (<100)
[2024-10-01 19:28] LABS: Bacteria Urine None Seen (None Seen); Hyaline Casts Urine 0-2 /LPF (0-2); RBC Urine 0-2 /HPF (0-2); Squamous Epithelial Cell Urine 0-2 /HPF (0-2); WBC Urine 0-5 /HPF (0-5)
[2024-10-01 19:39] LABS: Troponin-I High Sensitivity < 2.7 ng/L (<3.5-35.0)
[2024-10-01 20:02] LABS: Influenza A PCR NEGATIVE (Negative); Influenza B PCR NEGATIVE (Negative); Resp Syncy Virus RNA Qual PCR NEGATIVE (Negative); SARS COV2 PCR INHOUSE NEGATIVE (Negative)
== END 2024-10-01 22:23 | disposition home or self-care (01) ==
PROVIDERS: Emergency Provider Emergency Medicine Emergency Medical Services; PCP Internal Medicine
DX: J45.909 Unspecified asthma, uncomplicated (principal); I48.91 Unspecified atrial fibrillation; R06.02 Shortness of breath; Z03.818 Encounter for observation for suspected exposure to other biological agents ruled out; Z79.899 Other long term (current) drug therapy
CPT/HCPCS: 0241U; 71045; 80048; 80076; 81001; 83880; 84484; 85025; 93005; 94640; 99284; 99285; J2919

== ENCOUNTER → 2024-10-01 18:38 | Outpatient (BNV) | payer OTHER, SELFPAY | PROVIDERS: Emergency Provider Emergency Medicine Emergency Medical Services; PCP Internal Medicine; Visit Provider Internal Medicine Cardiovascular Disease | DX: I48.91 Unspecified atrial fibrillation (principal) | CPT/HCPCS: 93010 ==

== ENCOUNTER → 2024-10-01 18:38 | Outpatient (BNV) | payer OTHER, SELFPAY | PROVIDERS: Emergency Provider Emergency Medicine Emergency Medical Services; PCP Internal Medicine; Visit Provider Radiology Diagnostic Radiology | DX: R06.02 Shortness of breath (principal) | CPT/HCPCS: 71045 ==

== ENCOUNTER 2024-11-04 11:05 | Outpatient (AMB) | payer OTHER, SELFPAY ==
--- NOTE | 2024-11-04 11:14 | MHC.OFFVIS ---
Vital Signs 11/04/24 11:15 Height 5 ft 6 in Weight 209 lb 7.026 oz BMI 33.8 BP 110/72 Blood Pressure Location Rt brachial Position Sitting Pulse 79 Pulse Source Pulse Oximeter Pulse Oximetry (%) 97 Oxygen Delivery Method Room Air Intake Visit Reasons: COPD Intake Note: pt is here for follow up of COPD and states he is feeling good today no issues with breathing Director Insurance Required: No Allergies Iodinated Contrast Media (CONTRAST, IV) Allergy (Unknown, Verified 11/04/24 11:19) HIVES kiwi (KIWI) Allergy (Unknown, Verified 11/04/24 11:19) THROAT SWELLING HPI HPI COPD: Details: 68 YEARS OLD GENTLEMAN VERY PLEASANT, GROSSLY OBESE WITH CHRONIC OBSTRUCTIVE PULMONARY DISEASE, COMES FOR FOLLOW-UP AFTER 4 MONTHS. HE HAS NOT LOST MUCH WEIGHT AND WAS NOT ABLE TO GET ON TO ANTI OBESITY MEDS. HE IS STILL TRYING TO LOSE A FEW LB AT A TIME. IN GENERAL HE FEELS GOOD THEN BREATHING IS STABLE. SLEEPS FAIRLY GOOD. TODAY HE IS COMPLAINING OF PAINFUL LEFT BIG TOE, AND HAS SOME INFECTION. HE IS GOING TO SEE HIS PCP THIS AFTERNOON. [facility] Medical History Hoarseness Dysphagia Colon cancer screening Throat disorder Bronchitis CHF (congestive heart failure) Afib Allergic rhinitis COPD (chronic obstructive pulmonary disease) CE (obstructive sleep apnea) Obesity (BMI 30-39.9) Hypothyroid Anxiety Palpitation HTN (hypertension) Surgical History Hx of umbilical hernia repair History of surgery on arm Hx of eye surgery Hx of colonoscopy Hx of knee surgery Hx of tonsillectomy Family History Family/Other No problems noted. Social History Household Members: None Housing: Apartment Do you presently have visiting nurse or other home services: Yes Alcohol intake: former Patient Tobacco Use Status: Former Tobacco user Advance Directives Date on File: 08/11/23 service: No Review of Systems Const All systems reviewed & are unremarkable except as noted in HPI and below Eyes Reports no additional complaints ENT Reports nasal congestion (Mild intermittent) Card Denies chest pain, Reports irregular heart rhythm (Atrial fib) and Denies leg edema Resp Reports as per HPI GI Reports no additional complaints Reports no additional complaints Musc Reports abnormal gait (Uses cane), Reports back pain and Reports arthralgias Skin/Breast Reports system reviewed and no additional complaints, except as documented Neuro Reports no additional complaints and Reports abnormal gait (Uses cane) Psych Reports no additional complaints Physical Exam Vital Signs: Last Vital Signs Pulse 79 11/04/24 11:15 BP 110/72 11/04/24 11:15 Pulse Ox 97 11/04/24 11:15 Oxygen Delivery Method Room Air 11/04/24 11:15 BMI result Body Mass Index 33.8 Const General: comfortable, no acute distress, alert and awake Orientation/consciousness: patient oriented x3 HEENT Head: Yes normal to inspection General nose exam: No nasal polyps present and No nasal discharge present Face and sinus: Yes sinuses nontender Mouth: oropharynx normal Throat: Yes posterior oropharynx normal Eyes General: appearance normal, both eyes and all related structures Neck Neck: Yes normal visual inspection, Yes no lymphadenopathy, Yes trachea midline and Yes no JVD Thyroid: Thyroid normal Chest Chest palpation & inspection: normal inspection of the chest, normal palpation of entire chest wall and no tenderness Resp Other: Percussion note is resonant, breath sounds are distant with prolonged expiratory phase. No wheezes or rhonchi are heard. Cardio Palpation: normal PMI Rate: regular rate Rhythm: regular rhythm Heart sounds: no gallops and no murmurs GI Inspection: Yes other (Abdomen is obese and protuberant) Palpation (GI): Soft to palpation, nontender, No hepatosplenomegaly present and no masses Auscultation: normal bowel sounds Back/Spine/Pelvis Thoracic/Lumbar Spine: thoracic and lumbar spine normal to inspection and thoraco-lumbar ROM limited Skin General skin exam: no rashes or lesions noted Neuro General: patient oriented x3 and no focal motor deficits Cranial nerves: Yes CN's II-XII intact bilaterally Extrem General: Yes normal to inspection, Yes no clubbing, cyanosis or edema and Yes no calf tenderness Psych Appearance: grossly normal and well kempt Speech and movement: Normal speech and movement present Assessment & Plan Assessment & Plan (1) COPD (chronic obstructive pulmonary disease): Comment: [id number] ASTHMA/COPD . CLINICALLY WELL CONTROLLED AT THIS TIME. Code(s): J44.9 - Chronic obstructive pulmonary disease, unspecified Category: Medical Plan: ADVISED TO CONTINUE CURRENT REGIMEN WHICH INCLUDES : INCRUSE ELLIPTA 1 INHALATION DAILY WIXELA 250-50 1 INHALATION B.I.D. ALBUTEROL HFA( VENTOLIN) 2 PUFFS Q 4-6 HOURS P.R.N. (2) CE (obstructive sleep apnea): Comment: Currently untreated. He lost his machine because of noncompliance. He claims that he sleeps okay. He is not going to be able to use the CPAP. Code(s): G47.33 - Obstructive sleep apnea (adult) (pediatric) Category: Medical Plan: I ADVISED HIM THAT THE BEST SOLUTION IS TO KEEP ON LOSING WEIGHT. ALWAYS TRY TO SLEEP IN LATERAL POSITION. (3) Obesity (BMI 30-39.9): Comment: Discussed about his weight, he is not well motivated to lose weight. Also cannot walk much . He has actually put on some weight lately, this seems to be due to lack of activity and exercise. He was hoping that he could be started on anti obesity meds but it was not approved so he is just trying to cut down his diet. Code(s): E66.9 - Obesity, unspecified Category: Medical Plan: Talked about dietary management and advised to cut down the portions of his meals. Try to walk daily as much as possible. Coding Level of Care Code Est Pt Level 3 (09304) Diagnoses COPD (chronic obstructive pulmonary disease) J44.9 CE (obstructive sleep apnea) G47.33 Obesity (BMI 30-39.9) E66.9
[2024-11-04 11:15] VITALS: BP 110/72; PULSE 79; O2SAT 97; BMI 33.8
--- OUTSIDE RECORDS SUMMARY | 2024-11-04 13:14 | XMS_ITS | Encounter Summary ---
Author Organization [employer] Address [address] [facility] [address] [place] [address] Care Team Providers Care Financial Aid Director Name Role Phone Gemini Chavez MD Primary Care Provide r Reason for Visit * Reason Comments Med Refill Encounter Details Date Type Department Care Team ([facility] st Contact Info) Description 02/12/2024 Refill [facility] [address] [place], [place] [phone] Gemini Chavez MD [address] [place] [address] Prediabetes Social History Tobacco Use Types Packs/Day [...] EDT Office Visit [facility] [address] [place] [id number] Gemini Chavez MD [address] [place] [address] documented as of this encounter Visit Diagnoses Diagnosis Prediabetes Other abnormal glucose documented in this encounter Additional Health Concerns Assessment Noted Time PHQ-9 Depression Total Score: 0 09/03/19 24 9:55 AM EDT documented as of this encounter Care Teams Financial Aid Director Relationship Specialty Start Date End Date Gemini Chavez MD [address] [place] [id number] PCP - General Family Medicine 01/21/18 Compliance Assurance 03/28/24 documented as of this encounter
== END 2024-11-04 11:29 | disposition home or self-care (01) ==
LOC: HO.HPS 11:05
PROVIDERS: PCP Internal Medicine; Visit Provider Internal Medicine
DX: J44.9 Chronic obstructive pulmonary disease, unspecified (principal); G47.33 Obstructive sleep apnea (adult) (pediatric); E66.9 Obesity, unspecified
CPT/HCPCS: 99213

== ENCOUNTER → 2024-11-04 11:05 | Outpatient (BNVA) | payer OTHER, SELFPAY | PROVIDERS: PCP Internal Medicine; Visit Provider Internal Medicine | DX: G47.33 Obstructive sleep apnea (adult) (pediatric) (principal); J44.9 Chronic obstructive pulmonary disease, unspecified; E66.9 Obesity, unspecified | CPT/HCPCS: 99212 ==

== ENCOUNTER → 2024-12-11 07:56 | Outpatient (BNV) | payer OTHER, SELFPAY | PROVIDERS: Emergency Provider Emergency Medicine Emergency Medical Services; PCP Internal Medicine; Visit Provider Radiology Vascular & Interventional Radiology | DX: M19.012 Primary osteoarthritis, left shoulder (principal) | CPT/HCPCS: 73030 ==

== ENCOUNTER 2024-12-11 08:23 | Emergency (ER) | payer OTHER, SELFPAY ==
--- NOTE | ~2024-12-11 | XR_ITS ---
CLINICAL HISTORY: pain 3 view left shoulder Comparison: None provided Findings: Bones intact. No dislocations. Moderate degenerative change of the glenohumeral and acromioclavicular joints. Old left 7th rib fracture suggested. No erosions. No radiopaque foreign body. IMPRESSION: 1. No acute findings. Degenerative changes and old left 7th rib fracture. This document has been electronically signed by: Gaston Garnica MD on 12/11/2024 09:05:28
[2024-12-11 08:39] VITALS: BP 161/96; PULSE 86; RESP 17; TEMP 36.7; O2SAT 97; BMI 34.4
--- NOTE | 2024-12-11 08:51 | ED.EXTPRO ---
HPI - Extremity Problem General Chief complaint: Extremity Injury, Upper Stated complaint: l shoulder pain into ear Time Seen by Provider: 12/11/24 08:46 History of Present Illness HPI Narrative: Patient is a 69-year-old male presents today with having left shoulder pain. The shoulder pain is worse with movement it has been ongoing for about 7 month. There is no fever no chills. It is worse with movement. There is no chest pain there is no shortness of breath there is no diaphoresis. He has been going to physical therapy. Denies any focal weakness. Patient is from home. Has a history of atrial fibrillation patient is on Eliquis. No trauma. Related Data Home Medications ?Medication ?Instructions ?Recorded ?Confirmed apixaban 5 mg tablet 5 mg PO BID 05/24/20 09/15/24 cholecalciferol (vitamin D3) 50 50 mcg PO DAILY 05/24/20 09/15/24 mcg (2,000 unit) tablet clonazepam 1 mg tablet 1 mg PO BID PRN Anxiety 05/24/20 09/15/24 hydroxyzine pamoate 25 mg capsule 25 mg PO BID PRN Anxiety 05/24/20 09/15/24 levothyroxine 100 mcg tablet 100 mcg PO DAILY 05/24/20 09/15/24 lisinopril 40 mg tablet 40 mg PO DAILY 05/24/20 09/15/24 metoprolol succinate 200 mg 200 mg PO DAILY 05/24/20 09/15/24 tablet,extended release 24 hr rosuvastatin 40 mg tablet 40 mg PO DAILY 05/24/20 09/15/24 zolpidem 10 mg tablet 10 mg PO BEDTIME PRN Insomnia 05/24/20 09/15/24 albuterol sulfate 2.5 mg/3 mL 3 mg inhalation QID PRN Shortness 03/20/21 09/15/24 (0.083 %) solution for nebulization Of Breath Or Wheezing diclofenac sodium 1 % topical gel 2 g topical QID 08/08/23 09/15/24 vitamin E (dl, acetate) 45 mg (100 45 mg PO DAILY 08/08/23 09/15/24 unit) capsule umeclidinium 62.5 mcg/actuation 1 inh inhalation DAILY 03/17/24 09/15/24 blister powder for inhalation (Incruse Ellipta) furosemide 40 mg tablet 40 mg PO Q2D 05/25/24 09/15/24 meclizine 25 mg tablet 25 mg PO DAILY 05/25/24 09/15/24 metformin 500 mg tablet 500 mg PO BID 05/25/24 09/15/24 hydrochlorothiazide 25 mg tablet 25 mg PO DAILY 09/15/24 09/15/24 Previous Rx's ?Medication ?Instructions ?Recorded epinephrine 0.3 mg/0.3 mL 0.3 mg (0.3 mL) IM Q4H PRN 04/07/23 injection, auto-injector (EpiPen anaphylaxis #2 ea 2-Blaise) albuterol sulfate 90 mcg/actuation 2 puff PO Q6H PRN shortness of 12/23/23 aerosol inhaler (Ventolin HFA) breath or wheezing #18 ea bisacodyl 5 mg tablet,delayed 10 mg (2 x 5 mg) PO BEDTIME 2 days 02/04/24 release (Dulcolax (bisacodyl)) #4 tabs L.acidophil,salivari-Bifido 1 cap PO DAILY #30 caps 03/19/24 bifidum-Strep thermoph 175 mg capsule (Acidophilus Probiotic Blend) sodium,potassium,mag sulfates 17.5 See Rx Instructions PO .COMPLEX 08/20/24 gram-3.13 gram-1.6 gram oral soln #354 mL (Suprep Bowel Prep Kit) iroere-wakhszpo-xqyfbmc 2 cap PO BID #360 caps 09/17/24 36,000-114,000-180,000 unit capsule,delay rel (Creon) pantoprazole 40 mg tablet,delayed 40 mg PO DAILY #30 tabs 09/17/24 release sennosides 8.6 mg tablet (Senna 17.2 mg (2 x 8.6 mg) PO BEDTIME 09/17/24 Laxative) #60 tabs simethicone 180 mg capsule 180 mg PO QID 30 days #120 caps 09/17/24 tramadol 50 mg tablet 50 mg PO BEDTIME 7 days #7 tabs 10/01/24 fluticasone 250 mcg-salmeterol 50 1 inh inhalation BID #180 ea 12/06/24 mcg/dose blistr powdr for inhalation (Wixela Inhub) oxycodone 5 mg tablet 5 mg PO Q8H PRN pain #7 tabs 12/11/24 Allergies Allergy/AdvReac Type Severity Reaction Status Date / Time Iodinated Contrast Media Allergy Unknown HIVES Verified 12/11/24 08:41 (CONTRAST, IV) kiwi (KIWI) Allergy Unknown THROAT Verified 12/11/24 08:41 SWELLING Review of Systems Review of Systems: Positive pain to the left shoulder. Worse with movement PMFSH Past Medical History Attestation statement: The following information was validated with the patient. Medical History Hoarseness Dysphagia Colon cancer screening Throat disorder Bronchitis CHF (congestive heart failure) Afib Allergic rhinitis COPD (chronic obstructive pulmonary disease) CE (obstructive sleep apnea) Obesity (BMI 30-39.9) Hypothyroid Anxiety Palpitation HTN (hypertension) Surgical History Hx of umbilical hernia repair History of surgery on arm Hx of eye surgery Hx of colonoscopy Hx of knee surgery Hx of tonsillectomy Family History Family History Family/Other No problems noted. Social History Social History Household Members: None Housing: Apartment Do you presently have visiting nurse or other home services: Yes Alcohol intake: former Patient Tobacco Use Status: Former Tobacco user Advance Directives: Yes Advance Directives on File: Yes Advance Directives Date on File: 08/11/23 Do you have a plan to hurt others: No Plan service: No Physical Exam Vital Signs: Vital Signs: Last Vital Signs Temp 98.1 F 12/11/24 08:39 Pulse 86 12/11/24 08:39 Resp 17 12/11/24 08:39 BP 161/96 H 12/11/24 08:39 Pulse Ox 97 12/11/24 08:39 O2 Del Method Room Air 12/11/24 08:39 BMI result Body Mass Index 34.4 Medical Decision Making Medical Decision Making MDM Narrative: Patient had limited range of motion out of the left shoulder. There is no gross redness to suggest there is an infection. My interpretation patient's x-ray showed no acute fracture. Explained to patient that takes time. Has a long history of arthritis. Will require follow-up on an outpatient basis. Will give a couple of Percocet for extreme pain. Close follow-up on an outpatient basis. There is no chest pain is no shortness a breath there is no diaphoresis not consistent with having ACS. Differential Diagnosis Differential Diagnoses: The differential diagnosis associated with the presentation includes Shoulder pain Admission/Observation Consideration of admission/observation: Escalation of care including admission/observation considered Independent Interpretation I performed an independent interpretation of an: Plain X-Ray (No acute fracture) Radiology Impression Discussion of test interpretation with radiology: I have reviewed the radiologist's reading. Social Determinants Patient?s care significantly limited by Social Determinants of Health including: Problems related to primary support group Discharge Plan Discharge Clinical Impression: Acute shoulder pain Patient Disposition: Home, Self-Care Instructions: Arthralgia (ED), Shoulder Pain (ED) Prescriptions: New oxycodone 5 mg tablet 5 mg PO Q8H PRN (Reason: pain) Qty: 7 0RF Rx Instructions: Partial Fill upon patient request. No Action albuterol sulfate [Ventolin HFA] 90 mcg/actuation HFA aerosol inhaler 2 puff PO Q6H PRN (Reason: shortness of breath or wheezing) Qty: 18 0RF sodium,potassium,mag sulfates [Suprep Bowel Prep Kit] 17.5-3.13-1.6 gram recon soln See Rx Instructions PO .COMPLEX Qty: 354 0RF Rx Instructions: DILUTE; drink 1/2 at 6-8 pm and half at 11 PM- 1AM tramadol 50 mg tablet 50 mg PO BEDTIME 7 Days Qty: 7 0RF fluticasone propion-salmeterol [Wixela Inhub] 250-50 mcg/dose blister with device 1 inh inhalation BID Qty: 180 1RF epinephrine [EpiPen 2-Blaise] 0.3 mg/0.3 mL auto-injector 0.3 mg IM Q4H PRN (Reason: anaphylaxis) Qty: 2 0RF vitamin E (dl, acetate) 45 mg (100 unit) capsule 45 mg PO DAILY diclofenac sodium 1 % gel 2 g topical QID furosemide 40 mg tablet 40 mg PO Q2D zolpidem 10 mg tablet 10 mg PO BEDTIME PRN (Reason: Insomnia) hydroxyzine pamoate 25 mg capsule 25 mg PO BID PRN (Reason: Anxiety) cholecalciferol (vitamin D3) 50 mcg (2,000 unit) tablet 50 mcg PO DAILY lisinopril 40 mg tablet 40 mg PO DAILY apixaban 5 mg tablet 5 mg PO BID clonazepam 1 mg tablet 1 mg PO BID PRN (Reason: Anxiety) rosuvastatin 40 mg tablet 40 mg PO DAILY metoprolol succinate 200 mg tablet extended release 24 hr 200 mg PO DAILY levothyroxine 100 mcg tablet 100 mcg PO DAILY albuterol sulfate 2.5 mg /3 mL (0.083 %) solution for nebulization 3 mg inhalation QID PRN (Reason: Shortness Of Breath Or Wheezing) bisacodyl [Dulcolax (bisacodyl)] 5 mg tablet,delayed release (DR/EC) 10 mg PO BEDTIME 2 Days Qty: 4 0RF metformin 500 mg tablet 500 mg PO BID Incruse Ellipta 62.5 mcg/actuation blister with device 1 inh inhalation DAILY meclizine 25 mg tablet 25 mg PO DAILY L.acidoph,saliva-B.bif-S.therm [Acidophilus Probiotic Blend] 175 mg capsule 1 cap PO DAILY Qty: 30 6RF pantoprazole 40 mg tablet,delayed release (DR/EC) 40 mg PO DAILY Qty: 30 6RF Creon 36,000-114,000- 180,000 unit capsule,delayed release(DR/EC) 2 cap PO BID Qty: 360 1RF sennosides [Senna Laxative] 8.6 mg tablet 17.2 mg PO BEDTIME Qty: 60 6RF simethicone 180 mg capsule 180 mg PO QID 30 Days Qty: 120 6RF Rx Instructions: after meals hydrochlorothiazide 25 mg tablet 25 mg PO DAILY Referrals: Gemini Chavez MD [Primary Care Provider, Internal Medicine] - 12/15/24 Sandra Pinedo MD [Physician, Hand Surgery] - 12/15/24 Print Language: Micronesian
[2024-12-11 10:05] VITALS: BP 161/96; PULSE 86; RESP 17; TEMP 36.7; O2SAT 97
== END 2024-12-11 10:06 | disposition home or self-care (01) ==
PROVIDERS: Emergency Provider Emergency Medicine Emergency Medical Services; PCP Internal Medicine
DX: M25.512 Pain in left shoulder (principal); Z79.899 Other long term (current) drug therapy; Z87.891 Personal history of nicotine dependence
CPT/HCPCS: 73030; 99282; 99283

== ENCOUNTER 2025-01-13 10:09 | Outpatient (RCR) | payer OTHER, SELFPAY ==
--- NOTE | 2024-10-08 15:14 | MHC.PT.EP ---
[facility] [place] Office [place] Office [place] Office [address] [phone] F: [phone] F: [phone] F: [phone] F: [phone] Physical Therapy Plan of Care Date of Evaluation: 10/08/24 Date of Surgery: Diagnosis: LEFT shoulder tendonitis (MD Dx) LEFT shoulder adhesive capsulitis and likely RTC involvement (PT Dx) RS Assessment: Min is a 68 y.o. bengali speaking male who is referred to PT by Mario Wild PA-C of [facility] with Dx of LEFT shoulder tendonitis. PT diagnosis is LEFT shoulder adhesive capsulitis and likely RTC invovlement, difficulty with assessment due to pain and muscle guarding. Patient impairments include poor posture, limited shoulder ROM, weakness LEFT shoulder, pain. Patient current functional limitations are lift arm away from body, putting on shirt and pants, dressing, reaching cabinets, cooking, cleaning. Patient will benefit from skilled PT to address aforementioned impairments and functional limitations to meet established goals. Frequency and Duration: The patient will be seen 1-2x/week for 4 weeks Short Term Goals: 2 weeks Patient demonstrates consistency and independence with HEP to self manage symptoms. Mcc Goals: 4 weeks Patient presents with increased LEFT shoulder flexion AROM 120 degrees to be able to reach top of head for bathing/washing hair. Patient presents with increased LEFT shoulder ER AROM 40 degrees to be able to put on jacket independently. Treatment Plan: Modalities to reduce pain, spasms and effusion. Manual therapy to restore motion and function. Therapeutic exercise to improve strength and flexibility. Neuromuscular re-education for posture and balance. Therapeutic activities to return to functional activities of daily living. Electronically signed by: Marlene Schulz, PT, DPT Please sign and return to therapist. Thank you for your referral.
--- NOTE | 2025-02-04 13:54 | MHC.PT.DC ---
[facility] [place] [facility] [place] [facility] [place] [facility] [address] Fabrice Syed [address] [phone] F: [phone] F: [phone] F: [phone] F: [phone] Physical Therapy Discharge Report Diagnosis: LEFT shoulder tendonitis (MD Dx) LEFT shoulder adhesive capsulitis and likely RTC involvement (PT Dx) RS Date of Surgery: Date of Evaluation: 10/08/24 Date of Discharge: 02/04/25 Treatments to Date: 12 Cancellations to Date: 1 No Shows to Date: 0 Discharge Status: Patient Elected to Stop Recommend MD Follow-up Discharge Summary: Min continues with c/o shoulder pain and lat shoulder radicular sxs, not improving significantly with manual therapy, modalities and therapeutic exercises and activities. Due to this he is a good candidate for MRI of L shoulder to see if there is RTC injury/involvement in addition to impingement. Electronically signed by: Marlene Schulz, PT, DPT Please sign and return to therapist. Thank you for your referral.
== END 2025-02-04 13:55 | disposition home or self-care (01) ==
LOC: HO.PT 10:09
PROVIDERS: PCP Internal Medicine; Visit Provider Physician Assistant
DX: M77.8 Other enthesopathies, not elsewhere classified (principal)
CPT/HCPCS: 97110; 97140; 97162; 97530

== ENCOUNTER 2025-01-18 09:28 | Outpatient (AMB) | payer OTHER, SELFPAY ==
--- NOTE | 2025-01-18 09:38 | A.OFFVIS_ITS ---
Vital Signs 01/18/25 09:39 Height 5 ft 6 in Weight 216 lb BMI 34.9 BP 110/60 Blood Pressure Location Rt brachial Position Sitting Pulse 83 Pulse Source Pulse Oximeter Pulse Oximetry (%) 97 Oxygen Delivery Method Room Air Intake Visit Reasons: COPD Intake Note: Patient is here for a follow up on COPD, no new symptoms. Skein Tier Required: Yes Skein Tier Name: Astrid Adams C.L.M Allergies Iodinated Contrast Media (CONTRAST, IV) Allergy (Unknown, Verified 01/18/25 10:13) HIVES kiwi (KIWI) Allergy (Unknown, Verified 01/18/25 10:13) THROAT SWELLING Medication List - Last Reconciled 01/18/25 by Curt Marroquin MD albuterol sulfate 3 mg inhalation QID PRN albuterol sulfate 90 mcg/actuation (Ventolin HFA) 2 puffs PO Q6H PRN apixaban 5 mg PO BID bisacodyl (Dulcolax (bisacodyl)) 10 mg (2 x 5 mg) PO BEDTIME 2 days cholecalciferol (vitamin D3) 50 mcg PO DAILY clonazepam 1 mg PO BID PRN diclofenac sodium 1% 2 grams topical QID epinephrine (EpiPen 2-Blaise) 0.3 mg (0.3 mL) IM Q4H PRN fluticasone propion-salmeterol 250-50 mcg/dose (Wixela Inhub) 1 inh inhalation BID furosemide 40 mg PO Q2D hydrochlorothiazide 25 mg PO DAILY hydroxyzine pamoate 25 mg PO BID PRN L.acidoph,saliva-B.bif-S.therm 175 mg (Acidophilus Probiotic Blend) 1 cap PO DAILY levothyroxine 100 mcg PO DAILY zwocbs-brzfdzty-rntciax 36,000-114,000- 180,000 unit (Creon) 2 caps PO BID lisinopril 40 mg PO DAILY meclizine 25 mg PO DAILY metformin 500 mg PO BID metoprolol succinate ER 200 mg PO DAILY oxycodone 5 mg PO Q8H PRN pantoprazole 40 mg PO DAILY rosuvastatin 40 mg PO DAILY sennosides (Senna Laxative) 17.2 mg (2 x 8.6 mg) PO BEDTIME simethicone 180 mg PO QID 30 days sodium,potassium,mag sulfates 17.5-3.13-1.6 gram (Suprep Bowel Prep Kit) DILUTE; drink 1/2 at 6-8 pm and half at 11 PM- 1AM tramadol 50 mg PO BEDTIME 7 days umeclidinium 62.5 mcg/actuation (Incruse Ellipta) 1 inh inhalation DAILY vitamin E (dl, acetate) 45 mg PO DAILY zolpidem 10 mg PO BEDTIME PRN Do you need a note to return to daycare/school/sports/work: No HPI HPI COPD: Details: THIS 69 YEARS OLD GENTLEMAN, WELSH /NIGERIAN SPEAKING, IS A CASE OF MODERATELY SEVERE CHRONIC OBSTRUCTIVE PULMONARY DISEASE. AND ALSO CASE OF OBSTRUCTIVE SLEEP APNEA. COPD STATUS HAS REMAINED VERY STABLE WITHOUT ANY ACUTE EXACERBATION. HE USES WIXELA 250-50 1 INHALATION B.I.D. AND HARDLY NEEDS TO USE ALBUTEROL IN THE NEBULIZER OR ALBUTEROL HFA. MAIN COMPLAINT IS HOLDING HIS ARTHRITIS IN THE SHOULDERS BACK AND LOWER EXTREMITY. WEIGHT UNCHANGED, HIS SLEEP IS INTERRUPTED, HE KNOWS THAT HE HAS OBSTRUCTIVE SLEEP APNEA BUT DOES NOT WANT TO HEAR ABOUT USING CPAP. HE TRIES TO SLEEP IN LATERAL POSITION BUT HIS LEFT SHOULDER IS PAINFUL SO HE HAS TO BE MOSTLY ON THE RIGHT SIDE. .OVERALL STAYING VERY STABLE [facility] Medical History Hoarseness Dysphagia Colon cancer screening Throat disorder Bronchitis CHF (congestive heart failure) Afib Allergic rhinitis COPD (chronic obstructive pulmonary disease) CE (obstructive sleep apnea) Obesity (BMI 30-39.9) Hypothyroid Anxiety Palpitation HTN (hypertension) Surgical History Hx of umbilical hernia repair History of surgery on arm Hx of eye surgery Hx of colonoscopy Hx of knee surgery Hx of tonsillectomy Family History Family/Other No problems noted. Social History Household Members: None Housing: Apartment Do you presently have visiting nurse or other home services: Yes Alcohol intake: former Patient Tobacco Use Status: Former Tobacco user Advance Directives Date on File: 08/11/23 service: No Review of Systems Const All systems reviewed & are unremarkable except as noted in HPI and below Eyes Reports no additional complaints ENT Reports nasal congestion (Mild intermittent) Card Denies chest pain, Reports irregular heart rhythm (Atrial fib) and Denies leg edema Resp Reports as per HPI GI Reports no additional complaints Reports no additional complaints Musc Reports abnormal gait (Uses cane), Reports back pain and Reports arthralgias Skin/Breast Reports system reviewed and no additional complaints, except as documented Neuro Reports no additional complaints and Reports abnormal gait (Uses cane) Psych Reports no additional complaints Physical Exam Vital Signs: Last Vital Signs Pulse 83 01/18/25 09:39 BP 110/60 01/18/25 09:39 Pulse Ox 97 01/18/25 09:39 Oxygen Delivery Method Room Air 01/18/25 09:39 BMI result Body Mass Index 34.9 Const General: comfortable, no acute distress, alert and awake Orientation/consciousness: patient oriented x3 HEENT Head: Yes normal to inspection General nose exam: No nasal polyps present and No nasal discharge present Face and sinus: Yes sinuses nontender Mouth: oropharynx normal Throat: Yes posterior oropharynx normal Eyes General: appearance normal, both eyes and all related structures Neck Neck: Yes normal visual inspection, Yes no lymphadenopathy, Yes trachea midline and Yes no JVD Thyroid: Thyroid normal Chest Chest palpation & inspection: normal inspection of the chest, normal palpation of entire chest wall and no tenderness Resp Other: Percussion note is resonant, breath sounds are distant with prolonged expiratory phase. No wheezes or rhonchi are heard. Cardio Palpation: normal PMI Rate: regular rate Rhythm: regular rhythm Heart sounds: no gallops and no murmurs GI Inspection: Yes other (Abdomen is obese and protuberant) Palpation (GI): Soft to palpation, nontender, No hepatosplenomegaly present and no masses Auscultation: normal bowel sounds Back/Spine/Pelvis Thoracic/Lumbar Spine: thoracic and lumbar spine normal to inspection and thoraco-lumbar ROM limited Skin General skin exam: no rashes or lesions noted Neuro General: patient oriented x3 and no focal motor deficits Cranial nerves: Yes CN's II-XII intact bilaterally Extrem General: Yes normal to inspection, Yes no clubbing, cyanosis or edema and Yes no calf tenderness Psych Appearance: grossly normal and well kempt Speech and movement: Normal speech and movement present Assessment & Plan Assessment & Plan (1) COPD (chronic obstructive pulmonary disease): Comment: Mtnw-do-jeszbqxw ASTHMA/COPD . CLINICALLY WELL CONTROLLED AT THIS TIME. DOES NOT NEED TO USE ALBUTEROL FREQUENTLY. Code(s): J44.9 - Chronic obstructive pulmonary disease, unspecified Category: Medical Plan: CONTINUE WIXELA 250-50 1 INHALATION B.I.D. ALBUTEROL SOLUTION IN THE NEBULIZER Q 4-6 HOURS P.R.N. OR ALBUTEROL HFA 2 PUFFS Q 4-6 HOURS P.R.N. (2) CE (obstructive sleep apnea): Comment: Currently untreated. He lost his machine because of noncompliance. He claims that he sleeps okay, wakes up a few times due to pain in the shoulders and back. He is not going to be able to use the CPAP. Has not lost any weight, . Which is not expected anyway Code(s): G47.33 - Obstructive sleep apnea (adult) (pediatric) Category: Medical Plan: Again advised him to lose weight even a few lb at month. Always try to sleep in lateral position. (3) Obesity (BMI 30-39.9): Comment: Discussed about his weight, he is not well motivated to lose weight. Also cannot walk much . Code(s): E66.9 - Obesity, unspecified Category: Medical Plan: Anyway discussed about need to lose weight and discussed about diet and exercise once again. Coding Level of Care Code Est Pt Level 3 (18046) Diagnoses COPD (chronic obstructive pulmonary disease) J44.9 CE (obstructive sleep apnea) G47.33 Obesity (BMI 30-39.9) E66.9
[2025-01-18 09:39] VITALS: BP 110/60; PULSE 83; O2SAT 97; BMI 34.9
--- OUTSIDE RECORDS SUMMARY | 2025-01-18 10:56 | XMS_ITS | Encounter Summary ---
Author Organization [employer] Address [address] [facility] [address]t [place] [address] Care Team Providers Care Rn Iv Therapy Name Role Phone Gemini Chavez MD Primary Care Provide r Encounter Details Date Type Department Care Team (Late st Contact Info) Description 01/22/2023 Orders Only [facility] MEDICINE [address] [place], [place] [phone] Gemini Chavez MD [address] [place], [place] [phone] COPD with asthma (CMS/HCC) Social History Tobacco [...] documented as of this encounter Care Teams Rn Iv Therapy Relationship Specialty Start Date End Date Gemini Chavez MD [address] [place], [place] [phone] PCP - General Family Medicine 01/21/18 [email or web address] 03/28/24 documented as of this encounter
--- OUTSIDE RECORDS SUMMARY | 2025-01-18 10:56 | XMS_ITS | Encounter Summary ---
Author Organization [employer] Address [address] [facility] [address] [place] [address] Care Team Providers Care Printed Circuit Board Assembly Repairer Name Role Phone Gemini Chavez MD Primary Care Provide r Reason for Visit * Reason Comments Med Refill Encounter Details Date Type Department Care Team ([facility] st Contact Info) Description 05/14/2024 Refill [facility] MED[facility]INE [address] [place], [place] [phone] Gemini Chavez MD [address] [place], [place] [phone] Class 1 obesity due to excess calories [...] documented as of this encounter Care Teams Printed Circuit Board Assembly Repairer Relationship Specialty Start Date End Date Gemini Chavez MD [address] [place] [id number] PCP - General Family Medicine 01/21/18 [employer] 03/28/24 documented as of this encounter
--- OUTSIDE RECORDS SUMMARY | 2025-01-18 10:56 | XMS_ITS | Encounter Summary ---
Author Organization [employer] Address [address] [facility] [address] [place] [address] Care Team Providers Care Business Improvement Manager Name Role Phone Gemini Chavez MD Primary Care Provide r Reason for Visit * Reason Onset Date Comments NOV RECALL 01/18/2025 Encounter Details Date Type Department Care Team (Late st Contact Info) Description 01/18/2025 Telephone [facility] [address] [place] [address] Gemini Chavez MD [address] [place] [address] NOV RECALL Social History Tobacco Use Types Packs/Day Years Used Date Smoking Tobacco: Former Cigarettes Passive Smoke Exposure: Past Smokeless Tobacco: Never Alcohol Use Standard Drinks/Week Comments Never 0 (1 standard drink = 0.6 oz pur e alcohol) Depression Answer Date Recorded Patient Health Questionnaire-9 Score 0 11/29/2024 Patient Health Questionnaire-9 Score 0 11/29/2024 Last PHQ-9: Questionnaire Data Not on file 0 11/29/2024 Housing Stability Answer Date Recorded What is your housing situation today? I have hubert doshi 11/29/[address] you li ve. Do you have problems with any of the following? None of the above 11/29/2024 Food Insecurity Answer Date Recorded Within the past 12 months, y ou worried that your food would run out before you got money to buy more: Never True 11/29/2024 Within the past 12 months,th e food you bought just didn't last and you didn't have enough money to get more: Never True Transportation Answer Date Recorded In the past 12 months, has l ack of transportation kept you from medical appts, meetings, work or from getting things needed for daily living? No 11/29/2024 Utilities Answer Date Recorded In the past 12 months, has t he electric, gas, oil or water company threatened to shut off services in your home? No 11/29/2024 Depression Answer Date Recorded Patient Health Questionnaire-2 Score 0 11/29/2024 Internet Access Answer Date Recorded Internet Access Q1 No 11/29/2024 Internet Access Q2 I do not want or need it 11/10 Sex and Gender Information Value Date Recorded Sex Assigned at Male 03/11/2022 10:15 AM EDT Legal Sex Male 10:15 AM EDT Gender Identity Male 03/11/2022 10:15 AM EDT Sexual Orientation Straight 03/11/2022 10 :15 AM EDT documented as of this encounter Miscellaneous Notes * Telephone Encounter - Candida Castro MA - 01/18/2025 9:27 AM EDT TC- Patient to schedule an appt (NOV Recall) with [facility] to call back to sche appt.Mailed recall letter. documented in this encounter Plan of Treatment Not on file documented as of this encounter Visit Diagnoses Not on filedocumented in this encounter Additional Health Concerns Assessment Noted Time PHQ-9 Depression Total Score: 0 11/30/19 25 10:53 AM EDT documented as of this encounter Care Teams Business Improvement Manager Relationship Specialty Start Date End Date Gemini Chavez MD [address] [place] [id number] PCP - General Family Medicine 01/21/18 [email or web address] 03/28/24 documented as of this encounter
--- OUTSIDE RECORDS SUMMARY | 2025-01-18 10:56 | XMS_ITS | Encounter Summary ---
Author Organization [employer] Address [address] [facility] [address]t [place] [address] Care Team Providers Care College Instructor Name Role Phone Gemini Chavez MD Primary Care Provide r Encounter Details Date Type Department Care Team (Late st Contact Info) Description 02/19/2023 Abstract [facility] MEDICINE [address] [place], [place] [phone] Gemini Chavez MD [address] [place], [place] [phone] Social History Tobacco Use Types Packs/Day Years [...] documented as of this encounter Care Teams College Instructor Relationship Specialty Start Date End Date Gemini Chavez MD [address] [place] [address] PCP - General Family Medicine 01/21/18 [facility] [facility] 03/28/24 documented as of this encounter
--- OUTSIDE RECORDS SUMMARY | 2025-01-18 10:56 | XMS_ITS | Encounter Summary ---
Author Organization [employer] Address [address] [facility] [address] [place] [address] Care Team Providers Care Cone Operator Name Role Phone Gemini Chavez MD Primary Care Provide r Reason for Visit * Reason Comments Med Refill Encounter Details Date Type Department Care Team (Late st Contact Info) Description 10/20/2023 Refill [facility] [address] [place], [place] [phone] Gemini Chavez MD [address] [facility] [place] [address] Seasonal allergies Social History Tobacco Use Types [...] documented as of this encounter Care Teams Cone Operator Relationship Specialty Start Date End Date Gemini Chavez MD [address] [place] [id number] PCP - General Family Medicine 01/21/18 [employer] 03/28/24 documented as of this encounter
--- OUTSIDE RECORDS SUMMARY | 2025-01-18 10:56 | XMS_ITS | Encounter Summary ---
Author Organization [employer] Address [address] [facility] 7t [place] [address] Care Team Providers Care Comber Tender Name Role Phone Gemini Chavez MD Primary Care Provide r Reason for Visit * Reason Onset Date Comments Appointment Request 08/21/2022 Encounter Details Date Type Department Care Team ([facility] st Contact Info) Description 08/21/2022 Telephone [facility] MEDICINE 230 [place], [place] [phone] Gemini Chavez MD 230 [place] [address] Appointment Request Social History Tobacco Use Types [...] an family emergency. Please contact pt at [phone] documented in this encounter Plan of Treatment Not on file documented as of this encounter Visit Diagnoses Not on filedocumented in this encounter Additional Health Concerns Assessment Noted Time PHQ-9 Depression Total Score: 6 05/16/19 23 1:42 PM EST documented as of this encounter Care Teams Comber Tender Relationship Specialty Start Date End Date Gemini Chavez MD 230 [place] [address] PCP - General Family Medicine 01/21/18 [email or web address] 03/28/24 documented as of this encounter
--- OUTSIDE RECORDS SUMMARY | 2025-01-18 10:56 | XMS_ITS | Encounter Summary ---
Author Organization [facility] Address [address] [place] [address] Phone Care Team Providers Care Miscellaneous Machine Operator Name Role Phone Curt Richey MD Primary Care Provider + Encounter Details Date Type Department Care Team (Late st Contact Info) Description 12/24/2019 Ancillary Orders [facility] [address] [facility] 3rd Floor, [address] [place] [address] Curt Richey MD 50 [place] [address] [email or web address] Social History Tobacco Use Types Packs/Day Years Used Date Smoking Tobacco: Never Assessed Sex and Gender Information Value Date Recorded Sex Assigned at Not on file Legal Sex Male 7:00 AM EDT Gender Identity Not on file Sexual Orientation Not on file documented as of this encounter Plan of Treatment Not on file documented as of this encounter Visit Diagnoses Not on filedocumented in this encounter Care Teams Miscellaneous Machine Operator Relationship Specialty Start Date End Date Curt Richey MD [email or web address] PCP - General Cardiology 12/21/19 documented as of this encounter Additional Source Comments The information contained in this document represents components of the legal health record. It is not the complete legal health record.[facility]
--- OUTSIDE RECORDS SUMMARY | 2025-01-18 10:56 | XMS_ITS | Clinical Summary ---
Author Organization [facility] Address [address] [facility] [address] [place] [address] Phone Care Team Providers Care Surgical Rn Name Role Phone Curt Richey MD Primary Care Provider + Social History Tobacco Use Types Packs/Day Years Used Date Smoking Tobacco: Never Assessed Education Answer Date Recorded Are you interested in more education? Not on kendall e 09/06/2022 Are you concerned about learning? Not on file 09/06/2022 No 09/06/2022 No 09/06/2022 Digital Access Answer Date Recorded No 10/08/2022 No 10/08/2022 Reliable internet access at home? Not on file 10/08/2022 Device with a working camera? Not on file Sex and Gender Information Value Date Recorded Sex Assigned at Not on file Legal Sex Male 7:00 AM EDT Gender Identity Not on file Sexual Orientation Not on file Plan of Treatment Not on file Medical Devices Not on file Insurance [address] [place] [id number] [facility] ONE CARE MEDICARE REPLACEMENT CLIFF [facility] MEDICARE REPLACEMENT MEDICARE REPLACEMENT CARE MEDICARE [place] [address] [address] [place] [address] ONE C[employer] MEDICARE REPLACEMENT Care Teams Surgical Rn Relationship Specialty Start Date End Date Curt Richey MD PCP - General Cardiology 12/21/19 Additional Source Comments The information contained in this document represents components of the legal health record. It is not the complete legal health record.[facility]
--- OUTSIDE RECORDS SUMMARY | 2025-01-18 10:56 | XMS_ITS | Encounter Summary ---
Author Organization [employer] Address [address] [facility] 7t [place] [address] Care Team Providers Care Surgical Nurse Practitioner Name Role Phone Gemini Chavez MD Primary Care Provide r Reason for Visit * Reason Comments Med Change Request Encounter Details Date Type Department Care Team ([facility] st Contact Info) Description 01/08/2023 Refill [facility] MEDICINE 230 [place], [place] [phone] Marsha Menjivar MD 230 [place], [place] [phone] Chronic obstructive pulmonary disease, unspecified COPD type (CMS/[facility]) Social History Tobacco Use Types Packs/Day Years [...] for Nebulizer signed and faxed to [facility]. documented in this encounter Plan of Treatment Not on file documented as of this encounter Visit Diagnoses Diagnosis Chronic obstructive pulmonary disease, unspecified COPD type (CMS/HCC) documented in this encounter Additional Health Concerns Assessment Noted Time PHQ-9 Depression Total Score: 6 05/16/19 23 1:42 PM EST documented as of this encounter Care Teams Surgical Nurse Practitioner Relationship Specialty Start Date End Date Gemini Chavez MD 230 [place] [address] PCP - General Family Medicine 01/21/18 [email or web address] 03/28/24 documented as of this encounter
--- OUTSIDE RECORDS SUMMARY | 2025-01-18 10:56 | XMS_ITS | Encounter Summary ---
Author Organization [facility] Address [address] [facility] [address] [place] [address] Phone Care Team Providers Care Tree Warden Name Role Phone Curt Richey MD Primary Care Provider + Encounter Details Date Type Department Care Team (Latest Contact Info) Description 12/24/2019 Ancillary [facility] [address] [place] [address] [place] [address] Curt Richey MD 50 [place] [address] [email or web address] Atrial fibrillation, unspecified type Social History Tobacco Use Types Packs/Day Years Used Date Smoking Tobacco: Never Assessed Sex and Gender Information Value Date Recorded Sex Assigned at Not on file Legal Sex Male 7:00 AM EDT Gender Identity Not on file Sexual Orientation Not on file documented as of this encounter Plan of Treatment Not on file documented as of this encounter Results * Holter Monitor 24 Hours (12/24/2019 2:19 PM EDT) Anatomical Region Laterality Modality Heart Other Narrative 12/24/2019 2:47 PM EDT 24-hour monitor: Baseline rhythm is atrial fibrillation with a minimum heart rate of 48, maximum 177, average 85 bpm. The longest pause duration is 2.23 seconds at 9:12 AM. There are occasional wide QRS complex beats which may represent PVCs or atrial fibrillation conducted aberrantly. Is no diary submitted. There are no patient event markers. Impression: Abnormal 24-hour monitor. Atrial fibrillation is present throughout the recording, details above. No diary submitted. No patient event markers. Procedure Note Philip Silvestre MD - 08/14/2020 24-hour monitor: Baseline rhythm is atrial fibrillation with a minimumheart rate of 48, maximum 177, average 85 bpm. The longest pause durationis 2.23 seconds at 9:12 AM. There are occasional wide QRS complex beatswhich may represent PVCs or atrial fibrillation conducted aberrantly. Isno diary submitted. There are no patient event markers. Impression: Abnormal 24-hour monitor. Atrial fibrillation is presentthroughout the recording, details above. No diary submitted. No patientevent markers. Curt Richey MD [facility] Final Result documented in this encounter Visit Diagnoses Diagnosis Atrial fibrillation, unspecified type Atrial fibrillation, unspecified type documented in this encounter Care Teams Tree Warden Relationship Specialty Start Date End Date Curt Richey MD [email or web address] PCP - General Cardiology 12/21/19 documented as of this encounter Additional Source Comments The information contained in this document represents components of the legal health record. It is not the complete legal health record.[facility]
--- OUTSIDE RECORDS SUMMARY | 2025-01-18 10:56 | XMS_ITS | Encounter Summary ---
Author Organization [employer] Address [address] [facility] 7t [place] [address] Care Team Providers Care Optometric Aide Name Role Phone Gemini Chavez MD Primary Care Provide r Reason for Visit * Reason Comments Med Refill Encounter Details Date Type Department Care Team ([facility] st Contact Info) Description 06/21/2022 Refill [facility] MEDICINE 230 [place], [place] [phone] Marsha Menjivar MD 230 [place], [place] [phone] Chronic systolic heart failure (CMS/HCC) Social History [...] documented as of this encounter Care Teams Optometric Aide Relationship Specialty Start Date End Date Gemini Chavez MD [address] [place] [address] PCP - General Family Medicine 01/21/18 [employer] 03/28/24 documented as of this encounter
--- OUTSIDE RECORDS SUMMARY | 2025-01-18 10:56 | XMS_ITS | Encounter Summary ---
Author Organization [employer] Address [address] [facility] 7t [place] [address] Care Team Providers Care Lab Assistant Name Role Phone Gemini Chavez MD Primary Care Provide r Reason for Visit * Reason Onset Date Comments Nurse Triage 03/26/2023 Encounter Details Date Type Department Care Team ([facility] st Contact Info) Description 03/26/2023 Telephone [facility] MEDICINE 230 [place], [place] [phone] Gemini Chavez MD 230 [place] [address] Nurse Triage Social History Tobacco Use Types [...] 03/26/2023 11:47 AM EST Triage call with [employer] ID [id number] Pt reports ingrown toenail great toe on left foot for 3 days now. Pt reports it is painful and causes some limping when ambulating. Pt denies redness, drainage. Pt requests a referral to registered nurse cardiac which was very helpful last time this happened. Pt is advised will send this request to PCP and nursing team for follow up and Pt agreed. Pt declined to come to [facility] only wants registered nurse cardiac to cut this toenail. Protocol Used: Information [...] accepted this outcome Please contact pt at [phone] (chemist helper needed) documented in this encounter Plan of Treatment Not on file documented as of this encounter Visit Diagnoses Not on filedocumented in this encounter Additional Health Concerns Assessment Noted Time PHQ-9 Depression Total Score: 6 05/16/19 23 1:42 PM EST documented as of this encounter Care Teams Lab Assistant Relationship Specialty Start Date End Date Gemini Chavez MD 230 [place] [address] PCP - General Family Medicine 01/21/18 [employer] 03/28/24 documented as of this encounter
--- OUTSIDE RECORDS SUMMARY | 2025-01-18 10:56 | XMS_ITS | Encounter Summary ---
Author Organization [employer] Address [address] [facility] 7t [place] [address] Care Team Providers Care Agricultural Pilot Name Role Phone Gemini Chavez MD Primary Care Provide r Reason for Visit * Reason Comments Med Refill Encounter Details Date Type Department Care Team ([facility] st Contact Info) Description 02/12/2024 Refill [facility] MEDICINE 230 [place], [place] [phone] Gemini Chavez MD 230 [place] [address] Prediabetes Social History Tobacco Use Types Packs/Day [...] documented as of this encounter Care Teams Agricultural Pilot Relationship Specialty Start Date End Date Gemini Chavez MD [address] [place] [address] PCP - General Family Medicine 01/21/18 [employer] 03/28/24 documented as of this encounter
--- OUTSIDE RECORDS SUMMARY | 2025-01-18 10:56 | XMS_ITS | Encounter Summary ---
Author Organization [employer] Address 75 [facility] 7t [place] [address] Care Team Providers Care Help Desk Representative Name Role Phone Gemini Chavez MD Primary Care Provide r Encounter Details Date Type Department Care Team (Late st Contact Info) Description 07/10/2023 Orders Only [facility] MEDICINE 230 [place], [place] [phone] Gemini Chavez MD 230 [place], [place] [phone] Mixed stress and urge urinary incontinence (Primary [...] t he electric, gas, oil or water [employer] threatened to shut off services in your [...] documented as of this encounter Care Teams Help Desk Representative Relationship Specialty Start Date End Date Gemini Chavez MD 230 [place] [address] PCP - General Family Medicine 01/21/18 [employer] 03/28/24 documented as of this encounter
--- OUTSIDE RECORDS SUMMARY | 2025-01-18 10:56 | XMS_ITS | Encounter Summary ---
Author Organization [employer] Address [address] [facility] 7t [place] [address] Care Team Providers Care Print Support Specialist Name Role Phone Gemini Chavez MD Primary Care Provide r Reason for Visit * Reason Comments Med Refill Encounter Details Date Type Department Care Team ([facility] st Contact Info) Description 10/07/2022 Refill [facility] MEDICINE 230 [place], [place] [phone] Gemini Chavez MD 230 [place], [place] [phone] Chronic systolic heart failure (CMS/HCC) Social History [...] documented as of this encounter Care Teams Print Support Specialist Relationship Specialty Start Date End Date Gemini Chavez MD 230 [place] [address] PCP - General Family Medicine 01/21/18 [employer] 03/28/24 documented as of this encounter
--- OUTSIDE RECORDS SUMMARY | 2025-01-18 10:56 | XMS_ITS | Encounter Summary ---
Author Organization [employer] Address [address] [facility] 7t [place] [address] Care Team Providers Care Soldering Machine Operator Name Role Phone Gemini Chavez MD Primary Care Provide r Reason for Visit * Reason Comments Med Change Request Encounter Details Date Type Department Care Team (Late st Contact Info) Description 02/04/2023 Refill [facility] MED & PEDS [address] [place], [place] [phone] Marsha Menjivar MD 230 [place] [address] Primary hypertension Social History Tobacco Use Types [...] documented as of this encounter Care Teams Soldering Machine Operator Relationship Specialty Start Date End Date Gemini Chavez MD 230 [place] [address] PCP - General Family Medicine 01/21/18 [employer] 03/28/24 documented as of this encounter
--- OUTSIDE RECORDS SUMMARY | 2025-01-18 10:56 | XMS_ITS | Clinical Summary ---
Author Organization [address] [facility] Address 175 [place] [address] Phone Care Team Providers Care Microwave Technician Name Role Phone Gemini Chavez MD Primary Care Provide r Allergies No known active allergies Encounters Date Type Department Care Team Description 11/22/2024 4:00 PM EDT Office Visit Orthopedic [facility] [address] [phone] Gallito Hancock DPM Cellulitis of great toe, left (Primary Dx); Ingrowing nail; Dermatophytosis of nail; Type II diabetes mellitus with peripheral circulatory disorder (CMS/HCC V24, CMS/HCC V28); Pain in toe of right foot; Pain in toe of left foot 11/04/2024 1:45 PM EDT Office Visit [place] [address] [phone] Gallito Hancock DPM Ingrowing nail (Primary Dx); Abscess of left foot from Last 3 Months Social History Tobacco [...] Care Team (Late st Contact Info) Description 02/22/2025 2:45 PM EDT Office Visit Orthopedic Surgery - [place] [address] [address] Gallito Hancock, DPM 175 [facility] 250 [place] [address] Health Maintenance Due Date Last Done Comments [...] 06/06/2023 Social Influencers of Health Screening 06/06/2023 Depression Screening 05/12/2024 Diabetes: Annual Urine Albumin-Creatinine Ratio (uACR) 06/02/2024 Diabetes: Blood Sugar Control Test (HGBA1C) 06/02/2024 11/11/2023 COVID-19 Vaccine ( season) 2025 02/11/2024, 02/06/2023, 04/24/2022, Additional history exists Influenza Vaccine (#1) 2025 , 01/18/2023, 01/23/2022, Additional history exists Diabetes: Annual GFR (Glomerular Filtration Rate) 10/01/2025 10/01/2024, 08/10/2024, 06/16/2024, Additional history exists Hypertension/CHF/CAD Annual BMP Blood Test 10/01/2025 10/01/2024, 08/10/2024, 06/16/2024, Additional history exists Cholesterol Screening (Lipid Panel) 05/03/2029 05/03/2024 DTaP,Tdap,and Td Vaccines (5 - Td or Tdap) 04/10/2031 04/10/2021, 06/16/2014, 01/30/2006, Additional history exists Pneumococcal Vaccine: 50+ Years Completed 11/04/2022, 02/03/2015, 01/24/2015, Additional history exists RSV Immunization Adult Patients Completed 05/19/2023 HIB Vaccines Aged Out No longer eligi [...] complete this topic Insurance [place] - [place] Member Subscriber Plan / Payer (Ef fective 2024-Present) Name:MIN DAILY Relation to Subscriber:Self Name:Min Daily Payer ID:[id number] Group ID:Not on file Type:Not on file Address: [facility] [place] ATTN:CLAIMS [address] [place] [phone] [place] [address] Member Subscriber Plan / Payer (Ef fective 2022-Present) Name:Min Daily Relation to Subscriber:Self Name:Min Daily Payer ID:[id number] Group ID:[id number] Type:Not on file Address: [address] [place] [address] Care Teams Microwave Technician Relationship Specialty Start Date End Date Gemini Chavez MD NPI: [id number] [place] [id number] PCP - General 04/24/23
--- OUTSIDE RECORDS SUMMARY | 2025-01-18 10:56 | XMS_ITS | Patient Health Record ---
Author Organization [facility] Address [address] [place] [address] Care Team Providers Care Body Man Name Role Phone Gemini Fisher M.D. Primary Care Provider Larry Angeles Jr Unavailable [phone] Katherine FORTE, Cipriano Unavailable Unavailable Allergies No Known Allergies Reason For Referral No Information Medications Medication SIG (Take, Route, Frequency, Duration) Notes Start Date End Date Status Creon [id number] UNIT TOME 2 C PSULAS POR V [...] Status W/U Status Risk Notes Problem Dysphagia (21343954) Dysphagia (R13.10) Active confirmed Problem [id number] Dysphagia, unspecified type (R13.10) Active confirmed Problem 273892163 Abnormal barium swallow (R93.3) Active confirmed Problem [id number] Gastroesophageal reflux disease, unspecified whether esophagitis present (K21.9) Active confirmed Problem [id number] Presbyesophagus (K22.89) Active confirmed Plan Of Treatment Future Test Test Name Order Date UPPER GI ENDOSCOPY 03/13/2023 Insurance Providers Payer Name Payer Address Payer Phone Subscriber Number Group Number Insured Name Patient Relationship to Insured Coverage Start Date Coverage End Date [facility] [address] Attn Claims CLIFF Perez [id number] KOBE DAILY Self - patient is the insured Medical (General) History Medical History History ICD Code CE/COPD hypertension Fatty liver pulmonary nodule Elevated BMI Atrial fibrillation Hypothyroidism Gastroesophageal reflux disease/dysphagi a Surgical History Surgery Date(Month/Year) Cataract surgery Umbilical hernia repair Tonsillectomy
--- OUTSIDE RECORDS SUMMARY | 2025-01-18 10:56 | XMS_ITS | Encounter Summary ---
Author Organization [employer] Address [address] [facility] 7t [place] [address] Care Team Providers Care Ambulance Operations Supervisor Name Role Phone Gemini Chavez MD Primary Care Provide r Reason for Visit * Reason Onset Date Comments Prior Authorization 06/10/2024 Encounter Details Date Type Department Care Team ([facility] st Contact Info) Description 06/10/2024 Telephone [facility] MEDICINE 230 [place], [place] [phone] Gemini Chavez MD 230 [place] [address] Prior Authorization Social History Tobacco Use Types [...] is required on PA. Contact pt at [phone] (english) * Telephone Encounter - Rohit Cruz - 06/10/2024 9:00 AM EST Tc from pt requesting a PA for Tirzepatide-Weight Management (Zepbound) 2.5 MG/0.5ML solution auto-injector because pt stated that he received a letter stating that PA got denied. Contact pt: [phone] (Monegasque) documented in this encounter Plan of Treatment Not on file documented as of this encounter Visit Diagnoses Not on filedocumented in this encounter Additional Health Concerns Assessment Noted Time PHQ-9 Depression Total Score: 0 09/03/19 24 9:55 AM EDT documented as of this encounter Care Teams Ambulance Operations Supervisor Relationship Specialty Start Date End Date Gemini Chavez MD [address] [place] [address] PCP - General Family Medicine 01/21/18 [employer] 03/28/24 documented as of this encounter
--- OUTSIDE RECORDS SUMMARY | 2025-01-18 10:56 | XMS_ITS | Encounter Summary ---
Author Organization [employer] Address [address] [facility] 7t [place] [address] Care Team Providers Care Equipment Service Technician Name Role Phone Gemini Chavez MD Primary Care Provide r Reason for Visit * Reason Comments Med Refill Encounter Details Date Type Department Care Team ([facility] st Contact Info) Description 03/03/2024 Refill [facility] 230 [place], [place] [phone] Gemini Chavez MD 230 [place], [place] [phone] Social History Tobacco Use Types Packs/Day Years [...] documented as of this encounter Care Teams Equipment Service Technician Relationship Specialty Start Date End Date Gemini Chavez MD [address] [place] [address] PCP - General Family Medicine 01/21/18 [employer] 03/28/24 documented as of this encounter
--- OUTSIDE RECORDS SUMMARY | 2025-01-18 10:56 | XMS_ITS | Encounter Summary ---
Author Organization [employer] Address [address] [facility] 7t [place] [address] Care Team Providers Care Physician Support Coordinator Name Role Phone Gemini Chavez MD Primary Care Provide r Reason for Visit * Reason Onset Date Comments Referral 03/14/2023 Encounter Details Date Type Department Care Team ([facility] st Contact Info) Description 03/14/2023 Telephone [facility] MEDICINE 230 [place], [place] [phone] Gemini Chavez MD 230 [place], [place] [phone] Referral Social History Tobacco Use Types Packs/Day [...] t he electric, gas, oil or water [employer] threatened to shut off services in your [...] documented as of this encounter Care Teams Physician Support Coordinator Relationship Specialty Start Date End Date Gemini Chavez MD 230 [place] [address] PCP - General Family Medicine 01/21/18 [employer] 03/28/24 documented as of this encounter
--- OUTSIDE RECORDS SUMMARY | 2025-01-18 10:56 | XMS_ITS | Encounter Summary ---
Author Organization [employer] Address [address] [facility] 7t [place] [address] Care Team Providers Care Customer Complaint Service Supervisor Name Role Phone Gemini Chavez MD Primary Care Provide r Reason for Visit * Reason Comments Med Refill Encounter Details Date Type Department Care Team ([facility] st Contact Info) Description 09/08/[address] [facility] MED & PEDS [address] [place], [place] [phone] Umer Sears MD 230 [place], [place] [phone] Seasonal allergies Social History Tobacco Use Types [...] as of this encounter Care Teams Customer Complaint Service Supervisor Relationship Specialty Start Date End Date Gemini Chavez MD 230 [place], [place] [phone] PCP - General Family Medicine 01/21/18 [employer] 03/28/24 documented as of this encounter
--- OUTSIDE RECORDS SUMMARY | 2025-01-18 10:56 | XMS_ITS | Clinical Summary ---
Author Organization [employer] Address [address] [place] [address] 7[address] [place] [address] Care Team Providers Care Oracle Ebs Consultant Name Role Phone Gemini Chavez MD Primary Care Provide r Allergies Active Allergy Reactions Criticality Noted Date Comments Iodinated Contrast Media Hives 05/20/2023 Kiwi Extract 04/25/2017 Medications clonazePAM (KlonoPIN) 1 MG tablet TOME FAUSTINA TABLETA DOS VECES AL D A CUANDO SEA NECESARIO 022 Active hydrOXYzine pamoate (Vistaril) 25 MG capsule hydroxyzine pamoate 25 mg capsule TOME FAUSTINA C PSULA DOS VECES AL D A CUANDO SEA NECESARIO Active zolpidem (Ambien) 10 MG tablet zolpidem 10 mg tablet TOME FAUSTINA TABLETA TODOS LOS D AL ACOSTARSE CUANDO SEA NECESARIO 018 Active simethicone (Mylicon,Gas-X) 180 MG capsule Anti-Gas Ultra Strength 180 mg capsule TOME 1 C PSULA POR V A ORAL CUATRO VECES AL D A AFTER MEALS FOR 30 DAYS Active Respiratory Therapy Supplies (Nebulizer/Tubing/Mout hpiece) kitIndications:Chronic obstructive pulmonary disease, unspecified COPD type (CMS/HCC) Use along with nebulizer 1 kit 023 Active Blood Pressure Monitoring ([employer] Blood Pressure Monitor) miscIndications:Primar y hypertension USE TO MONITOR BLOOD PRESSURE 1 each 023 Active pantoprazole (ProtoNix) 40 MG EC tablet TAKE 1 TABLET BY MOUTH EVERY DAY 90 tablet 3 023 Active Acetaminophen Extra Strength 500 MG tabletIndications:Poly arthralgia TOME FAUSTINA TABLETA POR V A ORAL CADA SEIS HORAS CUANDO SEA NECESARIO MAX 8 TABS DAILY 40 tablet 2 023 Active furosemide (Lasix) 40 MG tabletIndications:Metal Framer haylee systolic heart failure (CMS/HCC) TAKE ALTERNATING DOSE OF 1 TABLET AND 1 1/2 TABLET EVERY OTHER DAY 114 tablet 1 023 Active loratadine (Claritin) 10 MG tabletIndications:Seas onal allergies TAKE 1 TABLET BY MOUTH EVERY DAY IF NEEDED FOR ALLERGIES 90 tablet 1 024 Active cyclobenzaprine (Flexeril) 10 MG tablet Take 1 tablet (10 mg) by mouth at bedtime for 10 days. 10 tablet 024 Active Ventolin HFA 108 (90 Base) MCG/ACT inhaler Inhale 2 puffs every 4 (four) hours if needed for shortness of breath or wheezing. 024 Active EPINEPHrine (Epipen) 0.3 MG/0.3ML injection syringe INJECT 0.3 MG (0.3 ML) INTRAMUSCULARLY EVERY 4 HOURS NEEDED FOR ANAPHYLAXIS AND CALL [phone] Active Creon [id number] units capsule delayed-release particles capsule Take 2 capsules by mouth 4 times daily. ADMINISTER WITH MEALS AND/OR SNACKS 023 Active Fluticasone-Salmeterol 250-50 MCG/ACT aerosol powder Inhale 1 puff 2 times daily. 024 Active Umeclidinium [place] (Incruse Ellipta) 62.5 MCG/ACT aerosol powderIndications:Metal Framer haylee obstructive pulmonary disease, unspecified COPD type (CMS/HCC) Take 1 Inhalation. by mouth in the morning. Inhale 1 puff by inhalation route every day at the same time each day 30 each 3 024 Active Semaglutide-Weight Management (Wegovy) 1 MG/0.5ML solution auto-injector INJECT ONE PEN (=1MG) SUBCUTANEOUSLY ONCE A WEEK 2 mL 024 Active cholecalciferol (Vitamin D-3) 25 MCG (1000 UT) tabletIndications:Pred iabetes Take 1 tablet (25 mcg) by mouth Once per day. 60 tablet 1 024 Active Vitamin E 45 MG (100 UNIT) capsuleIndications:Acq uired hypothyroidism TOME 1 CAPSULA POR VIA ORAL CADA MANANA 30 capsule 11 024 Active meclizine (Antivert) 25 MG tabletIndications:Vert igo TOME FAUSTINA TABLETA (25 MG) POR VIA ORAL CUANDO SEA NECESARIO KINJAL VECES AL СЕРГЕЙ (MORNING, NOON AND AT BEDTIME) PARA EL MAREO 30 tablet 024 Active Semaglutide-Weight Management (Wegovy) 2.4 MG/0.75ML solution auto-injectorIndicatio ns:Class 1 obesity due to excess calories with serious comorbidity and body mass index (BMI) of 33.0 to 33.9 in adult INJECT 2.4 ML UNDER THE SKIN EVERY 7 (SEVEN) DAYS. 2 mL 024 Active albuterol (2.5 MG/3ML) 0.083% nebulizer solution USE 1 VIAL VIA NEBULIZER KINJAL VECES AL СЕРГЕЙ 150 mL 3 025 Active amLODIPine (Norvasc) 2.5 MG tabletIndications:Prim stef hypertension Take 2 tablets (5 mg) by mouth Once per day. 60 tablet 11 025 07/05 Active amLODIPine (Norvasc) 10 MG tablet Take 1 tablet (10 mg) by mouth Once per day. 30 tablet 11 025 07/15 Active Tirzepatide-Weight Management (Zepbound) 2.5 MG/0.5ML solution auto-injectorIndicatio ns:Class 1 obesity due to excess calories with serious comorbidity and body mass index (BMI) of 33.0 to 33.9 in adult Inject 0.5 mL (2.5 mg) under the skin 1 (one) time per week. 2 mL 025 Active metoprolol succinate XL (Toprol-XL) 200 MG 24 hr tablet TAKE 1 TABLET BY MOUTH EVERY DAY 90 tablet 1 025 Active levothyroxine (Synthroid, Levoxyl) 100 MCG tabletIndications:Acqu ired hypothyroidism TOME 1 TABLETA POR VIA ORAL TODOS [place] LANDER[place] 90 tablet 1 025 Active Diclofenac Sodium 1 % gel APPLY 2 GRAMS TOPICALLY FOUR TIMES DAILY 300 g 2 025 Active FREESTYLE LITE test stripIndications:Predi abetes Use to test blood sugar once daily 100 each 3 025 09/03 Active Blood Glucose Monitoring Suppl (FreeStyle [place] Lite) w/Device kitIndications:Prediab etes Use to test blood sugar once daily 1 kit 025 Active cholecalciferol (D3) 50 MCG (1999) tabletIndications:Brynn min D deficiency TOME FAUSTINA TABLETA TODOS [place] 90 tablet 3 025 Active apixaban (Eliquis) 5 MG tablet TAKE 1 TABLET BY MOUTH TWICE A DAY 180 tablet 025 Active hydroCHLOROthiazide (HYDRODiuril) 25 MG tabletIndications:Hype rtension, unspecified type TAKE 1 TABLET BY MOUTH EVERY DAY 30 tablet 2 025 Active metFORMIN (Glucophage) 500 MG tabletIndications:Pred iabetes TAKE 1 TABLET BY MOUTH WITH BREAKFAST AND EVENING MEAL 180 tablet 3 025 Active lisinopril 40 MG tabletIndications:Prim stef hypertension TAKE 1 TABLET BY MOUTH EVERY MORNING 90 tablet 1 025 Active FreeStyle lancetsIndications:Pre diabetes USE TO TEST BLOOD SUGAR ONCE DAILY 100 each 4 025 Active lidocaine (Lidoderm) 5 % patchIndications:Chron ic left shoulder pain Apply 1 patch topically Once per day. Remove & discard patch within 12 hours or as directed by MD. 14 patch 025 Active rosuvastatin (Crestor) 40 MG tabletIndications:Pure hypercholesterolemia TOME 1 TABLETA POR VIA ORAL TODOS [place] 90 tablet 1 025 Active ciprofloxacin-dexAMETH asone (CiproDEX) otic suspensionIndications: Acute reactive otitis externa of both ears Administer 4 drops into each ear 2 times daily for 7 days. 7.5 mL 1 025 12/22 Hospital, Clinic, or Other Facility Administered Medication Ordered Dose Route Frequency Start Date End Date Status nitroglycerin (Nitrostat) SL tablet 0.4 mgIndications:Precordia l pain 0.4 mg SL Every 5 min PRN 07/22/2024 Active Active Problems Problem Noted Date Diagnosed Date Acute reactive otitis externa of both ears 12/15 Assessment & Plan (01/18/2025 9:50 AM EDT): Bilateral oe. Rx as written below Chronic left shoulder pain 11/29/2024 Assessment & Plan (11/29/2024 3:17 PM EDT): I will refer him back to orthopedics Class 1 obesity due to exces s calories with serious comorbidity and body mass index (BMI) of 34.0 to 34.9 in adult 11/29/2024 Assessment & Plan (11/29/2024 3:19 PM EDT): I will call to find out status of the prescription Precordial pain 07/22/2024 Assessment & Plan (07/22/2024 11:27 AM EDT): EKG done today shows his baseline A-fib no ST changes I ordered today in office aspirin 325 mg stat and nitroglycerin 0.4 mg under the tongue Patient will be sent to the emergency room via EMS Stage 3 chronic kidney disease 04/16/2024 Assessment & Plan (11/29/2024 3:17 PM EDT): It was advise to avoid nephrotoxic medications Class 1 obesity due to exces s [...] fibrillation with RVR 08/22/2023 Assessment & Plan (11/29/2024 3:15 PM EDT): Continue to follow with cardiology Assessment & Plan (09/03/2023 1:54 PM EDT): [...] TSH and contact him back Patient declines student counselor appointment Prediabetes 05/19/2023 Assessment & Plan (11/29/2024 3:16 PM EDT): Today extensive discussion was done about life style modifications I advise healthy diet (low calorie) and cardiovascular exercise Assessment & Plan (04/20/2024 4:46 PM EST): [...] will like to be re-evalauted for more FUR SORTER hours Preop examination 02/13/2023 Assessment & Plan [...] ideally next day of procedure--I called his folder gluer operator-Dr Ely's # [phone] office and spoke w PA -ok with plan to hold AC as rec above with no need for bridging. 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 Assessment & Plan (11/29/2024 3:17 PM EDT): C/w same medication regimen Continue t follow up with pulmonology Assessment & Plan (11/11/2023 12:03 PM EDT): [...] systolic heart failure 05/16/2022 Assessment & Plan (11/29/2024 3:15 PM EDT): Continue to follow with cardiology Assessment & Plan (11/11/2023 12:04 PM EDT): [...] atherosclerosis 10/31/2011 Hypertension 10/31/2011 Assessment & Plan (11/29/2024 3:16 PM EDT): I advised: - Aerobic exercise to reduce [...] consulting health care provider Assessment & Plan (08/26/2024 2:21 PM EDT): [...] Encounters Date Type Department Care Team Description 01/18/2025 Telephone [facility] [address] [place] [address] Gemini Chavez MD NOV RECALL 12/22/2024 Telephone [facility] [address] [place] [address] Gemini Chavez MD Hypotension 12/16/2024 Refill [facility] [address] [place] [address] Gemini Chavez MD Pure hypercholesterolemia 12/15/2024 10:30 AM EDT Office Visit [address] [phone] Jessica Ho NP Chronic left shoulder pain (Primary Dx); Acute reactive otitis externa of both ears 12/15/[address] [address] Gemini Chavez MD telephone call 12/15/2024 Travel 12/14/[address] [address] Gemini Chavez MD Nurse Triage 12/11/2024 Orders Only [facility] External Provider, [facility] 12/01/2024 Refill [facility] [address] [place] [address] Gemini Chavez MD Prediabetes 12/01/2024 Refill [facility] [address] [place] [address] Gemini Chavez MD Primary hypertension 11/29/2024 11:00 AM EDT Office Visit [address] [address] Gemini Chavez MD Chronic left shoulder pain (Primary Dx); Hypertension, unspecified type; Chronic systolic heart failure (CMS/HCC); COPD with asthma (CMS/HCC); Atrial fibrillation with RVR ([facility]/HCC); Stage 3 chronic kidney disease, unspecified whether stage 3a or 3b CKD ([facility]/HCC); Prediabetes; Class 1 obesity due to excess calories with serious comorbidity and body mass index (BMI) of 34.0 to 34.9 in adult 11/29/2024 Telephone [facility] [address] [place] [address] Gemini Chavez MD Prior Authorization (SUKH PA: Claudia) 11/29/2024 Travel 11/26/[address] [phone] Gemini Chavez MD [employer] 11/18/2024 Refill [facility] [address] [place], [place] [phone] Gemini Chavez MD Prediabetes 11/16/2024 Refill [facility] [address] [place], [place] [phone] Gemini Chavez MD Hypertension, unspecified type 11/01/2024 Refill [facility] [address] [place], [place] [phone] Gemini Chavez MD from Last 3 Months Immunizations Immunization Administration Dates Next Due Influenza High-dose Quadriva [...] Sign Reading Time Taken Comments Blood Pressure 130/90 12/15/2024 9:59 AM EDT Pulse 77 12/15/2024 9:59 AM EDT Temperature 35.5 C (95.9 F) 12/15/2024 9:59 AM EDT Respiratory Rate 16 12/15/2024 9:59 AM EDT Oxygen Saturation 98% 12/15/2024 9:59 AM EDT Inhaled Oxygen Concentration - - Weight 98 kg (216 lb) 12/15/2024 9:59 AM EDT Height 169.4 cm (5' 6.7 ) 12/15/2024 9:59 AM EDT Body Mass Index 34.14 12/15/2024 9:59 AM EDT Plan of Treatment Health Maintenance Due Date Last Done Comments CT Colonography 1955 FIT DNA/Cologuard 1955 FIT 1955 FOBT 1955 Sigmoidoscopy 1955 Hepatitis A Vaccines (1 of 2 - Risk 2-dose series) 11/18/1974 Hepatitis B Vaccines (1 of 3 - Risk 3-dose series) 2015 COVID-19 Vaccine ( season) 2025 02/11/2024, 02/06/2023, 04/24/2022, Additional history exists Colonoscopy 01/20/2025 01/21/2024 Colorectal Cancer Screening 01/20/2025 Zoster Vaccines (2 of 2) 02/21/2025 12/27/2024 Alcohol/Substance Use Screening 11/29/2025 11/29/2024 Depression Screening 11/29/2025 11/29/2024, 11/30/19 25 Diabetes: Hemoglobin A1C 11/29/2025 025, 11/11/2023, 05/20/2023, Additional history exists SDOH Screening 11/29/2025 11/29/2024 Tobacco Screening 12/15/2025 12/15/2024 Lipid Panel 05/03/2029 05/03/2024, 010 01/2024, 12/13/2022, Additional history exists DTaP/Tdap/Td Vaccines (2 - Td or Tdap) 04/10/2031 04/10/2021, 06/16/2014, 01/30/2006, Additional history exists Pneumococcal Vaccine: 50+ Years Completed 11/04/2022, 02/03/2015, 01/24/2015, Additional history exists Hepatitis C Screening Completed 12/13/2022 RSV Patients and Patients Aged 60 years or older Completed 05/19/2023 Influenza Vaccine Completed 01/03/2025, , 01/18/2023, Additional history exists HIB Vaccines Aged Out [...] Comments XR SHOULDER 2+ VIEWS LEFT Routine 12/11/2024 9:05 AM EDT POCT GLYCATED HEMOGLOBIN, TOTAL Routine 11/29/2024 11:22 AM EDT Prediabetes POCT GLUCOSE Routine 11/29/2024 11:22 AM EDT Prediabetes LIPID PANEL, STANDARD Routine 05/03/2024 8:15 AM EST Stage 3 chronic kidney disease, unspecified whether stage 3a or 3b CKD (CMS/HCC) Prediabetes HM COLONOSCOPY Routine 01/21/2024 10:19 AM EDT HEPATITIS C ANTIBODY REFLEX Routine 12/13/2022 8:21 AM EDT from Last 3 Months or Most Recently Relevant to Health Maintenance Results * XR Shoulder 2+ Views Left (12/11/2024 9:05 AM EDT) Anatomical Region Laterality Modality Upper Extremities, Shoulder Left Radi ographic Imaging 12/11/2024 9:05 AM EDT Narrative 12/11/2024 9:06 AM EDT [address] [address] XRay Report Signed Patient: Min Rees MR#: [id number] : 1955 Acct:[id number] Age/Sex: 69 / M ADM Date: 12/11/24 Loc: HO.ED Attending Dr: Ordering Physician: Zenaida Zaragoza MD Date of Service: 12/11/24 Procedure(s): XR shoulder LT min 2V Accession Number(s): [id number] cc: Gemini Chavez MD; Zenaida Zaragoza MD CLINICAL HISTORY: pain 3 view left shoulder Comparison: None provided Findings: Bones intact. No dislocations. Moderate degenerative change of the glenohumeral and acromioclavicular joints. Old left 7th rib fracture suggested. No erosions. No radiopaque foreign body. IMPRESSION: 1. No acute findings. Degenerative changes and old left 7th rib fracture. This document has been electronically signed by: Gaston Garnica MD on 12/11/2024 09:05:28 Dictated By: Gaston Garnica MD Signed By: <Electronically signed by Gaston Garnica MD in OV> 12/11/24905 DD/ 4 TD/TT: 12/11/24904 Technical Service Rep: Procedure Note Donotuseinterpreter, Image - 12/11/2024 [place] [address] XRay Report Signed Patient: Min Rees#: [id number] : 6Acct:[id number] Age/Sex: 69 / MADM Date: 12/11/24 Loc: .ED Attending Dr: Ordering Physician: Zenaida Zaragoza MD Date of Service: 12/11/24 Procedure(s): XR shoulder LT min 2V Accession Number(s): [id number] cc: Gemini Chavez MD; Zenaida Zaragoza MD CLINICAL HISTORY: pain 3 view left shoulder Comparison: None provided Findings: Bones intact. No dislocations. Moderate degenerative change of the glenohumeral and acromioclavicular joints. Old left 7th rib fracture suggested. No erosions. No radiopaque foreign body. IMPRESSION: 1. No acute findings. Degenerative changes and old left 7th rib fracture. This document has been electronically signed by: Gaston Garnica MD on 12/11/2024 09:05:28 Dictated By: Gaston Garnica MD Signed By: <Electronically signed by Gaston Garnica MD in OV> 12/11/24905 DD/ 4 TD/TT: 12/11/24904 Technical Service Rep: [facility] External Provider IMG XR PROCEDURES Edited Result - Final * (ABNORMAL) POCT HGB A1C (11/29/2024 11:22 AM EDT) Hemoglobin A1C 5.7 4.0 - 5.7 % QC Media Lot # [id number] Lot# Expiration Date Blood 11/29/2024 11:2 2 AM EDT Gemini Chung MD POINT OF CARE TEST ENTER/EDIT ORDERABLES Edited Result - Final * POCT Glucose (11/29/2024 11:22 AM EDT) Glucose Blood, POC 178 60 - 200 mg/dL QC Media Lot # [id number] Lot# Expiration Date [id number] Blood Capillary blood specimen / Unknown 11/29/2024 11:22 AM EDT Gemini Chung MD POINT OF CARE TEST ENTER/EDIT ORDERABLES Edited Result - Final * (ABNORMAL) Lipid Panel, Standard (05/03/2024 8:15 AM EST) Triglycerides 230(H) <150 mg/dL [facility] Comment:Desirable Triglyceri de: less than 150 mg/dLBorderline High Triglyceride 150-199 mg/dLHigh Triglyceride: 200-499 mg/dLVery High Triglyceride: greater than or equal to 5OO mg/dL Cholesterol 118 <200 mg/dL [facility] Comment:Desirable Cholestero l: less than 200 mg/dLBorderline High Cholesterol: 200-239 mg/dLHigh Cholesterol: greater than 239 mg/dL LDL Cholesterol Calculated 41 <100 mg/dL [facility] Comment:Desirable LDL: less than 100 mg/dLNear Optimal/Above Optimal LDL: 110- 129 mg/dLBorderline High LDL: 130-159 mg/dLHigh LDL: 160-189 mg/dLVery High LDL: greater than or equal to 190 mg/dL HDL Cholesterol 31(L) >40 mg/dL [facility] Comment:Desirable HDL: great er than 40 mg/dL Note: This HDL assay may give artificially low results in patients with liver disease. Blood Venous blood specimen / Unknown 05/03/2024 8:15 AM EST 05/03/2024 11:40 AM EST Gemini Chung MD LAB BLOOD ORDERABLES Final Result Performing Organization Address [facility]/ZIP Co de Phone Number [facility] [address] [place] [phone] * Hm Colonoscopy (01/21/2024 10:19 AM EDT) Colonoscopy Normal Normal Narrative Jamila Page - 01/21/2024 10:19 AM EDT Repeat Colonoscopy in 6-12 months due to poor right prep or earlier if clinically indicated see external hospital admission note on 01/21/2024 Bryon Arroyo MD HEALTH MAINTENANCE Edited Result - Final * Hepatitis C Antibody Reflex (12/13/2022 8:21 AM EDT) Hepatitis C Antibody Nonreactive Nonreactive [facility] Comment:Antibodies to HCV no t detected; does not exclude early acuteHCV infection. 12/13/2022 8:21 AM EDT 12/13/2022 11:08 AM EDT Gemini Chung MD LAB BLOOD ORDERABLES Final Result Performing Organization Address [facility] Co de Phone Number [facility] [address] [place] [address] [phone] from Last 3 Months or Most Recently Relevant to Health Maintenance Insurance [address] [place] [phone] [facility] RESIDENTIAL OPTIONS (HMO D-SNP) [facility] STANDARD [address] [place] [id number] [place] [phone] [place] [phone] Care Teams Oracle Ebs Consultant Relationship Specialty Start Date End Date Gemini Chavez MD [address] [place] [phone] PCP - General Family Medicine 01/21/18 [employer] 03/28/24
--- OUTSIDE RECORDS SUMMARY | 2025-01-18 10:56 | XMS_ITS | Encounter Summary ---
Author Organization [employer] Address [address] [facility] 7t [place] [address] Care Team Providers Care Secondary Connector Armature Name Role Phone Gemini Chavez MD Primary Care Provide r Reason for Visit * Reason Comments Med Refill Encounter Details Date Type Department Care Team ([facility] st Contact Info) Description 02/12/2024 Refill [facility] [address] [place], [place] [phone] Gemini Chavez MD [address] [place] [address] Prediabetes Social History Tobacco Use Types Packs/Day [...] documented as of this encounter Care Teams Secondary Connector Armature Relationship Specialty Start Date End Date Gemini Chavez MD [address] [place] [phone] PCP - General Family Medicine 01/21/18 [employer] 03/28/24 documented as of this encounter
--- OUTSIDE RECORDS SUMMARY | 2025-01-18 10:57 | XMS_ITS | Encounter Summary ---
Author Organization [employer] Address [address] [facility] [address]t [place] [address] Care Team Providers Care Administration Internship Name Role Phone Gemini Chavez MD Primary Care Provide r Reason for Visit * Reason Comments Med Refill Encounter Details Date Type Department Care Team ([facility] st Contact Info) Description 05/08/2024 Refill [facility] [address] [place], [place] [phone] Gemini Chavez MD [address] [place] [address] Class 1 obesity due to excess calories [...] documented as of this encounter Care Teams Administration Internship Relationship Specialty Start Date End Date Gemini Chavez MD [address] [place] [phone] PCP - General Family Medicine 01/21/18 [employer] 03/28/24 documented as of this encounter
--- OUTSIDE RECORDS SUMMARY | 2025-01-18 10:57 | XMS_ITS | Encounter Summary ---
Author Organization [employer] Address [address] [facility] 7t [place] [address] Care Team Providers Care Appliance Repair Technician Name Role Phone Gemini Chavez MD Primary Care Provide r Encounter Details Date Type Department Care Team (Late st Contact Info) Description 05/10/2024 Orders Only [facility] [address] [place], [place] [phone] Gemini Chavez MD [address] [place], [place] [phone] Stage 3 chronic kidney disease, unspecified whether [...] documented as of this encounter Care Teams Appliance Repair Technician Relationship Specialty Start Date End Date Gemini Chavez MD [address] [place] [phone] PCP - General Family Medicine 01/21/18 [employer] 03/28/24 documented as of this encounter
--- OUTSIDE RECORDS SUMMARY | 2025-01-18 10:57 | XMS_ITS | Encounter Summary ---
Author Organization [employer] Address [address] [facility] [address]t [place] [address] Care Team Providers Care Vacuum Metalizer Operator Name Role Phone Gemini Chavez MD Primary Care Provide r Encounter Details Date Type Department Care Team (Late st Contact Info) Description 06/18/2024 Orders Only [facility] [address] [place], [place] [phone] Gemini Chavez MD [address] [place], [place] [phone] Social History Tobacco Use Types Packs/Day Years [...] documented as of this encounter Care Teams Vacuum Metalizer Operator Relationship Specialty Start Date End Date Gemini Chavez MD [address] [place] [phone] PCP - General Family Medicine 01/21/18 [employer] 03/28/24 documented as of this encounter
--- OUTSIDE RECORDS SUMMARY | 2025-01-18 10:57 | XMS_ITS | Encounter Summary ---
Author Organization [employer] Address [address] [facility] [address]t [place] [address] Care Team Providers Care Envelope Stamping Machine Operator Name Role Phone Gemini Chavez MD Primary Care Provide r Reason for Visit * Reason Comments Med Refill Encounter Details Date Type Department Care Team ([facility] st Contact Info) Description 10/16/2024 Refill [facility] [address] [place], [place] [phone] Gemini Chavez MD [address] [place] [address] Prediabetes Social History Tobacco Use Types Packs/Day [...] documented as of this encounter Care Teams Envelope Stamping Machine Operator Relationship Specialty Start Date End Date Gemini Chavez MD [address] [place] [phone] PCP - General Family Medicine 01/21/18 [employer] 03/28/24 documented as of this encounter
== END 2025-01-18 10:17 | disposition home or self-care (01) ==
PROVIDERS: PCP Internal Medicine; Visit Provider Internal Medicine
DX: J44.9 Chronic obstructive pulmonary disease, unspecified (principal); G47.33 Obstructive sleep apnea (adult) (pediatric); E66.9 Obesity, unspecified
CPT/HCPCS: 99213

== ENCOUNTER → 2025-01-18 09:28 | Outpatient (BNVA) | payer OTHER, SELFPAY | PROVIDERS: PCP Internal Medicine; Visit Provider Internal Medicine | DX: J44.9 Chronic obstructive pulmonary disease, unspecified (principal); G47.33 Obstructive sleep apnea (adult) (pediatric); E66.9 Obesity, unspecified; Z68.34 Body mass index [BMI] 34.0-34.9, adult; I10 Essential (primary) hypertension; Z87.891 Personal history of nicotine dependence | CPT/HCPCS: 99212 ==

== ENCOUNTER 2025-01-20 14:56 | Outpatient (REF) | payer OTHER, SELFPAY ==
[2025-01-20 18:01] LABS: Anion Gap 15 (12-20); Blood Urea Nitrogen 26 mg/dL (9-16); Calcium 9.5 mg/dL (8.4-10.2); Carbon Dioxide 25 mmol/L (22-29); Chloride 108 mmol/L (96-108); Estimated Glomerular Filt Rate 49; Potassium 4.1 mmol/L (3.3-5.1); Sodium 144 mmol/L (135-145)
== END 2025-01-20 14:57 | disposition home or self-care (01) ==
LOC: HO.LAB 14:56
PROVIDERS: Absent Provider Internal Medicine Hypertension Specialist; PCP Internal Medicine; Visit Provider Physician Assistant
DX: M77.8 Other enthesopathies, not elsewhere classified (principal); K21.9 Gastro-esophageal reflux disease without esophagitis; K86.89 Other specified diseases of pancreas; K59.00 Constipation, unspecified; R14.0 Abdominal distension (gaseous); N18.9 Chronic kidney disease, unspecified; Z98.890 Other specified postprocedural states; Z79.899 Other long term (current) drug therapy; Z87.891 Personal history of nicotine dependence
CPT/HCPCS: 36415; 80048; 99212

== ENCOUNTER 2025-01-20 14:56 | Outpatient (AMB) | payer OTHER, SELFPAY ==
--- NOTE | 2025-01-20 15:09 | A.OFFVIS_ITS ---
Vital Signs 01/20/25 15:13 Height 5 ft 6 in Weight 216 lb BMI 34.9 Intake Visit Reasons: OV- Chronic left shoulder pain Intake Note: Min is a 68 year old right hand dominant male who presents today for an ER follow up of left shoulder. At his last visit on 09/15/24 he was given an injection and referred to physical therapy. Today patient reports that physical therapy and last injection did not help with his pain. States his pain is the same since his last visit. Pediatric Urologist Name: Bell ID# [id number] Allergies Iodinated Contrast Media (CONTRAST, IV) Allergy (Unknown, Verified 01/20/25 15:13) HIVES kiwi (KIWI) Allergy (Unknown, Verified 01/20/25 15:13) THROAT SWELLING Medication List - Last Reconciled 01/20/25 by Mario Wild PA-C albuterol sulfate 3 mg inhalation QID PRN albuterol sulfate 90 mcg/actuation (Ventolin HFA) 2 puffs PO Q6H PRN apixaban 5 mg PO BID bisacodyl (Dulcolax (bisacodyl)) 10 mg (2 x 5 mg) PO BEDTIME 2 days cholecalciferol (vitamin D3) 50 mcg PO DAILY clonazepam 1 mg PO BID PRN diclofenac sodium 1% 2 grams topical QID epinephrine (EpiPen 2-Blaise) 0.3 mg (0.3 mL) IM Q4H PRN fluticasone propion-salmeterol 250-50 mcg/dose (Wixela Inhub) 1 inh inhalation BID furosemide 40 mg PO Q2D hydrochlorothiazide 25 mg PO DAILY hydroxyzine pamoate 25 mg PO BID PRN L.acidoph,saliva-B.bif-S.therm 175 mg (Acidophilus Probiotic Blend) 1 cap PO DAILY levothyroxine 100 mcg PO DAILY jaikfj-xfeyloot-msxcfuj 36,000-114,000- 180,000 unit (Creon) 2 caps PO BID lisinopril 40 mg PO DAILY meclizine 25 mg PO DAILY metformin 500 mg PO BID metoprolol succinate ER 200 mg PO DAILY oxycodone 5 mg PO Q8H PRN pantoprazole 40 mg PO DAILY rosuvastatin 40 mg PO DAILY sennosides (Senna Laxative) 17.2 mg (2 x 8.6 mg) PO BEDTIME simethicone 180 mg PO QID 30 days sodium,potassium,mag sulfates 17.5-3.13-1.6 gram (Suprep Bowel Prep Kit) DILUTE; drink 1/2 at 6-8 pm and half at 11 PM- 1AM tramadol 50 mg PO BEDTIME 7 days umeclidinium 62.5 mcg/actuation (Incruse Ellipta) 1 inh inhalation DAILY vitamin E (dl, acetate) 45 mg PO DAILY zolpidem 10 mg PO BEDTIME PRN HPI HPI OV- Chronic left shoulder pain: Details: 69-year-old gentleman presents to the office today for a follow-up left shoulder pain. The patient was last seen by me and had an injection of his left shoulder which she states was not helpful. He states he did physical therapy for about 2 months and this was also unsuccessful. He states he continues to have discomfort with attempting to reach the arm and he can not bring his arm overhead or behind his body. [facility] Medical History Hoarseness Dysphagia Colon cancer screening Throat disorder Bronchitis CHF (congestive heart failure) Afib Allergic rhinitis COPD (chronic obstructive pulmonary disease) CE (obstructive sleep apnea) Obesity (BMI 30-39.9) Hypothyroid Anxiety Palpitation HTN (hypertension) Surgical History Hx of umbilical hernia repair History of surgery on arm Hx of eye surgery Hx of colonoscopy Hx of knee surgery Hx of tonsillectomy Family History Family/Other No problems noted. Social History Household Members: None Housing: Apartment Do you presently have visiting nurse or other home services: Yes Alcohol intake: former Patient Tobacco Use Status: Former Tobacco user Advance Directives Date on File: 08/11/23 service: No Review of Systems Const All systems reviewed & are unremarkable except as noted in HPI and below Physical Exam Vital Signs: BMI result Body Mass Index 34.9 Const General: cooperative and no acute distress Orientation/consciousness: patient oriented x3 Resp Effort & Inspection: normal respiratory effort and able to speak in complete sentences Cardio Peripheral pulses: Peripheral pulses 2+ throughout Neuro General: patient oriented x3 Extrem Other: Left shoulder is normal to inspection. He has significant limitations with attempts at range of motion due to severe pain. I can passively forward flex him to 45 degrees. External rotation to 40 degrees. Assessment & Plan Assessment & Plan (1) Left shoulder tendonitis: Code(s): M77.8 - Other enthesopathies, not elsewhere classified Category: Medical Plan: Patient has failed conservative management continues to have limitations with daily activities therefore an MRI of the left shoulder has been ordered to further evaluate the integrity of the rotator cuff. Once the scan is complete I will contact the patient to determine the next step in his treatment plan. The patient is content with this plan. Orders: Orders MR shoulder LT wo con Today S46.009A - Unspecified injury of muscle(s) and tendon(s) of the rotator cuff of unspecified shoulder, initial encounter Coding Level of Care Code Est Pt Level 3 (05781) Complex EM visit Add On G2211 Diagnoses Left shoulder tendonitis M77.8
[2025-01-20 15:13] VITALS: BMI 34.9
--- OUTSIDE RECORDS SUMMARY | 2025-01-20 18:24 | XMS_ITS | Encounter Summary ---
Author Organization [employer] Address [address] [facility] 7t [place] [address] Care Team Providers Care Automobile Mechanic Motor Name Role Phone Gemini Chavez MD Primary Care Provide r Reason for Visit * Reason Comments Med Refill Encounter Details Date Type Department Care Team ([facility] st Contact Info) Description 05/14/[address] [facility] MEDICINE [address] [place], [place] [phone] Gemini Chavez MD [address] [place], [place] [phone] Class 1 obesity due to excess calories [...] Care Team (Late st Contact Info) Description 03/23/2025 11:15 AM EST Office Visit [facility] MEDICINE [address] [place] [phone] Gemini Chavez MD [address] [place] [address] documented as of this encounter Visit Diagnoses Diagnosis Class 1 obesity due to excess calories with serious comorbidity and body mass index (BMI) of 33.0 to 33.9 in adult documented in this encounter Additional Health Concerns Assessment Noted Time PHQ-9 Depression Total Score: 0 09/03/19 9:55 AM EDT documented as of this encounter Care Teams Automobile Mechanic Motor Relationship Specialty Start Date End Date Gemini Chavez MD [address] [place] [address] PCP - General Family Medicine 01/21/18 [employer] 03/28/24 documented as of this encounter
--- OUTSIDE RECORDS SUMMARY | 2025-01-20 18:24 | XMS_ITS | Encounter Summary ---
Author Organization [facility] Address [address] [facility] 7t [place] [address] Care Team Providers Care Workforce Development Vice President Name Role Phone Gemini Chavez MD Primary Care Provide r Reason for Visit * Reason Comments Med Refill Encounter Details Date Type Department Care Team (Late Contact Info) Description 06/21/2022 Refill [facility] MEDICINE [address] [place] [address] [phone] Marsha Menjivar MD [address] [place], [place] [phone] Chronic systolic heart failure (CMS/HCC) Social History [...] Description 03/23/2025 11:15 AM EST Office Visit [facility] MEDICINE [address] [place] [phone] Gemini Chavez MD [address] [place] [address] documented as of this encounter Visit Diagnoses Diagnosis Chronic systolic heart failure (CMS/HCC) Chronic systolic heart failure documented in this encounter Additional Health Concerns Assessment Noted Time PHQ-9 Depression Total Score: 6 05/16/19 23 1:42 PM EST documented as of this encounter Care Teams Workforce Development Vice President Relationship Specialty Start Date End Date Gemini Chavez MD [address] [place] [address] PCP - General Family Medicine 01/21/18 [employer] 03/28/24 documented as of this encounter
--- OUTSIDE RECORDS SUMMARY | 2025-01-20 18:24 | XMS_ITS | Encounter Summary ---
Author Organization [employer] [facility] Address [address] [facility] 7[address] [place] [address] Care Team Providers Care Third Rail Installer Name Role Phone Gemini Chavez MD Primary Care Provide r Reason for Visit * Reason Comments Med Refill Encounter Details Date Type Department Care Team (Late st Contact Info) Description 10/07/2022 Refill [facility] MEDICINE [address] [place], [place] [phone] Gemini Chavez MD [address] [place], [place] [phone] Chronic systolic heart failure (CMS/HCC) Social History [...] Description 03/23/2025 11:15 AM EST Office Visit [facility] MEDICINE [address] [place], [place] [phone] Gemini Chavez MD [address] [place] [address] documented as of this encounter Visit Diagnoses Diagnosis Chronic systolic heart failure (CMS/HCC) Chronic systolic heart failure documented in this encounter Additional Health Concerns Assessment Noted Time PHQ-9 Depression Total Score: 6 05/16/19 23 1:42 PM EST documented as of this encounter Care Teams Third Rail Installer Relationship Specialty Start Date End Date Gemini Chavez MD [address] [place] [address] PCP - General Family Medicine 01/21/18 [employer] 03/28/24 documented as of this encounter
--- OUTSIDE RECORDS SUMMARY | 2025-01-20 18:24 | XMS_ITS | Encounter Summary ---
Author Organization [employer] Address [address] [facility] 7t [place] [address] Care Team Providers Care Jet Dyeing Machine Operator Name Role Phone Gemini Chavez MD Primary Care Provide r Reason for Visit * Reason Onset Date Comments Appointment Request 08/21/2022 Encounter Details Date Type Department Care Team ([facility] st Contact Info) Description 08/21/2022 Telephone [facility] MEDICINE [address] [place], [place] [phone] Gemini Chavez MD [address] [place] [address] Appointment Request Social History Tobacco Use Types [...] an family emergency. Please contact pt at [phone] documented in this encounter Plan of Treatment Upcoming Encounters Date Type Department Care Team (Late st Contact Info) Description 03/23/2025 11:15 AM EST Office Visit [facility] MEDICINE [address] [place] [address] Gemini Chavez MD [address] [place] [address] documented as of this encounter Visit Diagnoses Not on filedocumented in this encounter Additional Health Concerns Assessment Noted Time PHQ-9 Depression Total Score: 6 05/16/19 23 1:42 PM EST documented as of this encounter Care Teams Jet Dyeing Machine Operator Relationship Specialty Start Date End Date Gemini Chavez MD [address] [place] [phone] PCP - General Family Medicine 01/21/18 [employer] 03/28/24 documented as of this encounter
--- OUTSIDE RECORDS SUMMARY | 2025-01-20 18:24 | XMS_ITS | Encounter Summary ---
Author Organization [employer] Address [address] [facility] 7t [place] [address] Care Team Providers Care Professor Of Spanish Name Role Phone Gemini Chavez MD Primary Care Provide r Reason for Visit * Reason Onset Date Comments NOV RECALL 01/18/2025 Encounter Details Date Type Department Care Team (Late st Contact Info) Description 01/18/2025 Telephone [facility] [address] [place] [address] Gemini Chavez MD [address] [place] [address] NOV RECALL Social History Tobacco Use Types [...] an appt (NOV Recall) with [facility] to call back to sche appt.Mailed recall letter. documented in this encounter Plan of Treatment Upcoming Encounters Date Type Department Care Team (Late st Contact Info) Description 03/23/2025 11:15 AM EST Office Visit [facility] MEDICINE [address] [place] [address] Gemini Chavez MD [address] [place] [address] documented as of this encounter Visit Diagnoses Not on filedocumented in this encounter Additional Health Concerns Assessment Noted Time PHQ-9 Depression Total Score: 0 11/30/19 25 10:53 AM EDT documented as of this encounter Care Teams Professor Of Spanish Relationship Specialty Start Date End Date Gemini Chavez MD [address] [place] [phone] PCP - General Family Medicine 01/21/18 [employer] 03/28/24 documented as of this encounter
--- OUTSIDE RECORDS SUMMARY | 2025-01-20 18:24 | XMS_ITS | Encounter Summary ---
Author Organization [employer] Address [address] [facility] 7t [place] [address] Care Team Providers Care Physical Therapy Technician Name Role Phone Gemini Chavez MD Primary Care Provide r Reason for Visit * Reason Onset Date Comments Prior Authorization 06/10/2024 Encounter Details Date Type Department Care Team ([facility] st Contact Info) Description 06/10/2024 Telephone [facility] MEDICINE [address] [place], [place] [phone] Gemini Chavez MD [address] [place] [address] Prior Authorization Social History Tobacco Use Types [...] is required on PA. Contact pt at [phone] (kazakh) * Telephone Encounter - Rohit Cruz - 06/10/2024 9:00 AM EST Tc from pt requesting a PA for Tirzepatide-Weight Management (Zepbound) 2.5 MG/0.5ML solution auto-injector because pt stated that he received a letter stating that PA got denied. Contact pt: [phone] (Maltese) documented in this encounter Plan of Treatment Upcoming Encounters Date Type Department Care Team (Late st Contact Info) Description 03/23/2025 11:15 AM EST Office Visit [facility] MEDICINE [address] [place], [place] [phone] Gemini Chavez MD [address] [place] [address] documented as of this encounter Visit Diagnoses Not on filedocumented in this encounter Additional Health Concerns Assessment Noted Time PHQ-9 Depression Total Score: 0 09/03/19 9:55 AM EDT documented as of this encounter Care Teams Physical Therapy Technician Relationship Specialty Start Date End Date Gemini Chavez MD [address] [place] [address] PCP - General Family Medicine 01/21/18 [employer] 03/28/24 documented as of this encounter
--- OUTSIDE RECORDS SUMMARY | 2025-01-20 18:24 | XMS_ITS | Encounter Summary ---
Author Organization [employer] Address [address] [facility] 7t [place] [address] Care Team Providers Care Car Racer Name Role Phone Gemini Chavez MD Primary Care Provide r Reason for Visit * Reason Comments Med Refill Encounter Details Date Type Department Care Team ([facility] st Contact Info) Description 02/12/2024 Refill [facility] MEDICINE [address] [place], [place] [phone] Gemini Chavez MD [address] [place] [address] Prediabetes Social History Tobacco Use Types Packs/Day [...] Description 03/23/2025 11:15 AM EST Office Visit [facility] MEDICINE [address] [place] [phone] Gemini Chavez MD [address] [place] [phone] documented as of this encounter Visit Diagnoses Diagnosis Prediabetes Other abnormal glucose documented in this encounter Additional Health Concerns Assessment Noted Time PHQ-9 Depression Total Score: 0 09/03/19 24 9:55 AM EDT documented as of this encounter Care Teams Car Racer Relationship Specialty Start Date End Date Gemini Chavez MD [address] [place] [address] PCP - General Family Medicine 01/21/18 [employer] 03/28/24 documented as of this encounter
--- OUTSIDE RECORDS SUMMARY | 2025-01-20 18:24 | XMS_ITS | Encounter Summary ---
Author Organization [employer] Address [address] [facility] 7t [place] [address] Care Team Providers Care Electrical Equipment Tester Name Role Phone Gemini Chavez MD Primary Care Provide r Reason for Visit * Reason Comments Med Refill Encounter Details Date Type Department Care Team ([facility] st Contact Info) Description 03/03/[address] [facility] [address] [place], [place] [phone] Gemini Chavez MD [address] [place], [place] [phone] Social History Tobacco Use Types Packs/Day Years [...] Description 03/23/2025 11:15 AM EST Office Visit [facility] MEDICINE [address] [place] [address] Gemini Chavez MD [address] [place] [address] documented as of this encounter Visit Diagnoses Not on filedocumented in this encounter Additional Health Concerns Assessment Noted Time PHQ-9 Depression Total Score: 0 09/03/19 24 9:55 AM EDT documented as of this encounter Care Teams Electrical Equipment Tester Relationship Specialty Start Date End Date Gemini Chavez MD [address] [place] [address] PCP - General Family Medicine 01/21/18 [employer] 03/28/24 documented as of this encounter
--- OUTSIDE RECORDS SUMMARY | 2025-01-20 18:24 | XMS_ITS | Encounter Summary ---
Author Organization [employer] Address 75 [facility] 7t [place] [address] Care Team Providers Care Genomics Scientist Name Role Phone Gemini Chavez MD Primary Care Provide r Reason for Visit * Reason Comments Med Refill Encounter Details Date Type Department Care Team ([facility] st Contact Info) Description 02/12/2024 Refill [facility] MED[facility] [address] [place], [place] [phone] Gemini Chavez MD 230 [place] [address] Prediabetes Social History Tobacco Use Types Packs/Day [...] Description 03/23/2025 11:15 AM EST Office Visit [facility] MED[facility]INE [address] [place] [address] Gemini Chavez MD [address] [place] [address] documented as of this encounter Visit Diagnoses Diagnosis Prediabetes Other abnormal glucose documented in this encounter Additional Health Concerns Assessment Noted Time PHQ-9 Depression Total Score: 0 09/03/19 24 9:55 AM EDT documented as of this encounter Care Teams Genomics Scientist Relationship Specialty Start Date End Date Gemini Chavez MD [address] [place] [address] PCP - General Family Medicine 01/21/18 [employer] 03/28/24 documented as of this encounter
--- OUTSIDE RECORDS SUMMARY | 2025-01-20 18:24 | XMS_ITS | Encounter Summary ---
Author Organization [employer] Address 75 [facility] 7t [place] [address] Care Team Providers Care Non Destructive Testing Scientist Name Role Phone Gemini Chavez MD Primary Care Provide r Reason for Visit * Reason Comments Med Refill Encounter Details Date Type Department Care Team (Late st Contact Info) Description 09/08/2022 Refill [facility] MED & PEDS [address] [place], [place] [phone] Umer Sears MD 230 [place], [place] [phone] Seasonal allergies Social History Tobacco Use Types [...] Description 03/23/2025 11:15 AM EST Office Visit [facility] MEDICINE 230 [place], [place] [phone] Gemini Chavez MD [address] [place], [place] [phone] documented as of this encounter Visit Diagnoses Diagnosis Seasonal allergies Allergic rhinitis, cause unspecified documented in this encounter Additional Health Concerns Assessment Noted Time PHQ-9 Depression Total Score: 6 05/16/19 23 1:42 PM EST documented as of this encounter Care Teams Non Destructive Testing Scientist Relationship Specialty Start Date End Date Gemini Chavez MD [address] [place] [address] PCP - General Family Medicine 01/21/18 [employer] 03/28/24 documented as of this encounter
--- OUTSIDE RECORDS SUMMARY | 2025-01-20 18:25 | XMS_ITS | Encounter Summary ---
Author Organization [employer] Address [address] [facility] 7t [place] [address] Care Team Providers Care Stock Control Supervisor Name Role Phone Gemini Chavez MD Primary Care Provide r Encounter Details Date Type Department Care Team (Late st Contact Info) Description 06/18/2024 Orders Only [facility] MEDICINE [address] [place], [place] [phone] Gemini Chavez MD [address] [place], [place] [phone] Social History Tobacco Use Types Packs/Day Years [...] Description 03/23/2025 11:15 AM EST Office Visit [facility] MED[facility] [address] [place] [address] Gemini Chavez MD [address] [place] [address] documented as of this encounter Visit Diagnoses Not on filedocumented in this encounter Additional Health Concerns Assessment Noted Time PHQ-9 Depression Total Score: 0 09/03/19 9:55 AM EDT documented as of this encounter Care Teams Stock Control Supervisor Relationship Specialty Start Date End Date Gemini Chavez MD [address] [place] [address] PCP - General Family Medicine 01/21/18 [employer] 03/28/24 documented as of this encounter
--- OUTSIDE RECORDS SUMMARY | 2025-01-20 18:25 | XMS_ITS | Patient Health Record ---
Author Organization [facility] Address [address] [place] [address] Care Team Providers Care Mixologist Name Role Phone Gemini Fisher M.D. Primary Care Provider Larry Angeles Jr Unavailable [phone] Katherine FORTE, Cipriano Unavailable Unavailable Allergies No Known Allergies Reason For Referral No Information Medications Medication SIG (Take, Route, Frequency, Duration) Notes Start Date End Date Status Creon [id number] UNIT TOME 2 C PSULAS POR V [...] Status W/U Status Risk Notes Problem Dysphagia (53122660) Dysphagia (R13.10) Active confirmed Problem 91810263 Dysphagia, unspecified type (R13.10) Active confirmed Problem 499324030 Abnormal barium swallow (R93.3) Active confirmed Problem 590756007 Gastroesophageal reflux disease, unspecified whether esophagitis present (K21.9) Active confirmed Problem [id number] Presbyesophagus (K22.89) Active confirmed Plan Of Treatment Future Test Test Name Order Date UPPER GI ENDOSCOPY 03/13/2023 Insurance Providers Payer Name Payer Address Payer Phone Subscriber Number Group Number Insured Name Patient Relationship to Insured Coverage Start Date Coverage End Date [facility] [address] Attn Claims CLIFF Perez [id number] [id number] DAILY Self - patient is the insured Medical (General) History Medical History History ICD Code CE/COPD hypertension Fatty liver pulmonary nodule Elevated BMI Atrial fibrillation Hypothyroidism Gastroesophageal reflux disease/dysphagi a Surgical History Surgery Date(Month/Year) Cataract surgery Umbilical hernia repair Tonsillectomy
--- OUTSIDE RECORDS SUMMARY | 2025-01-20 18:25 | XMS_ITS | Encounter Summary ---
Author Organization [employer] Address 75 [facility] 7t [place] [address] Care Team Providers Care Postal Service Window Clerk Name Role Phone Gemini Chavez MD Primary Care Provide r Encounter Details Date Type Department Care Team (Late st Contact Info) Description 01/20/2025 Orders Only GENERIC EXTERNAL DATA DEPARTMENT Provider, [...] Description 03/23/2025 11:15 AM EST Office Visit [facility] MEDICINE [address] [place] [address] Gemini Chavez MD 230 [place] [address] documented as of this encounter Procedures Procedure Name Priority Date/Time Associated Diagnosis Comments BASIC METABOLIC PANEL Routine 01/20/2025 3:40 PM EDT documented in this encounter Results * (ABNORMAL) Basic Metabolic Panel (01/20/2025 3:40 PM EDT) Sodium 144 135 - 145 mmol/L [facility] Potassium 4.1 3.3 - 5.1 mmol/L [facility] Chloride 108 96 - 108 mmol/L [facility] Carbon Dioxide 25 22 - 29 mmol/L [facility] Anion Gap 15 12 - 20 [facility] Urea Nitrogen (BUN) 26(H) 9 - 16 mg/dL [facility] Creatinine, Serum 1.43(H) 0.5 - 1.4 mg/dL [facility] Estimated Glomerular Filt Rate 49 [facility] Comment:Chronic Kidney Disea se: Estimated GFR < 60 mL/min/1.39a5Sgyfpb Kidney Disease: Estimated GFR < 15 mL/min/1.73m2 Glucose 73 60 - 115 mg/dL [facility] Calcium 9.5 8.4 - 10.2 mg/dL [facility] 01/20/2025 3:40 PM EDT 01/20/2025 3:40 PM EDT us Generic External Data Provider LAB BLOOD ORDERAB LES Final Result [facility] [address] [place] [phone] documented in this encounter Visit Diagnoses Not on filedocumented in this encounter Additional Health Concerns Assessment Noted Time PHQ-9 Depression Total Score: 0 11/30/19 25 10:53 AM EDT documented as of this encounter Care Teams Postal Service Window Clerk Relationship Specialty Start Date End Date Gemini Chavez MD [address] [place] [address] PCP - General Family Medicine 01/21/18 [employer] 03/28/24 documented as of this encounter
--- OUTSIDE RECORDS SUMMARY | 2025-01-20 18:25 | XMS_ITS | Encounter Summary ---
Author Organization [employer] Address 75 [facility] 7t [place] [address] Care Team Providers Care Neurology Teacher Name Role Phone Gemini Chavez MD Primary Care Provide r Encounter Details Date Type Department Care Team (Late st Contact Info) Description 02/19/2023 Abstract [facility] MEDICINE [address] [place], [place] [phone] Gemini Chavez MD [address] [place], [place] [phone] Social History Tobacco Use Types Packs/Day Years [...] Description 03/23/2025 11:15 AM EST Office Visit [facility] MEDICINE [address] [place] [address] Gemini Chavez MD [address] [place] [address] documented as of this encounter Visit Diagnoses Not on filedocumented in this encounter Additional Health Concerns Assessment Noted Time PHQ-9 Depression Total Score: 6 05/16/19 23 1:42 PM EST documented as of this encounter Care Teams Neurology Teacher Relationship Specialty Start Date End Date Gemini Chavez MD 230 [place] [address] PCP - General Family Medicine 01/21/18 [employer] 03/28/24 documented as of this encounter
--- OUTSIDE RECORDS SUMMARY | 2025-01-20 18:25 | XMS_ITS | Encounter Summary ---
Author Organization [employer] Address 75 [facility] 7t [place] [address] Care Team Providers Care Curve Saw Operator Name Role Phone Gemini Chavez MD Primary Care Provide r Reason for Visit * Reason Comments Med Change Request Encounter Details Date Type Department Care Team (Late Contact Info) Description 01/08/2023 Refill [facility] MEDICINE 230 [place], [place] [phone] Marsha Menjivar MD [address] [place] [address] Chronic obstructive pulmonary disease, unspecified COPD type (CMS/[facility]) Social History Tobacco Use Types [...] generated for Nebulizer signed and faxed to [facility] documented in this encounter Plan of Treatment Upcoming Encounters Date Type Department Care Team (Late st Contact Info) Description 03/23/2025 11:15 AM EST Office Visit [facility] MEDICINE [address] [place] [address] Gemini Chavez MD [address] [place] [address] documented as of this encounter Visit Diagnoses Diagnosis Chronic obstructive pulmonary disease, unspecified COPD type (CMS/HCC) documented in this encounter Additional Health Concerns Assessment Noted Time PHQ-9 Depression Total Score: 6 05/16/19 23 1:42 PM EST documented as of this encounter Care Teams Curve Saw Operator Relationship Specialty Start Date End Date Gemini Chavez MD [address] [place] [address] PCP - General Family Medicine 01/21/18 [employer] 03/28/24 documented as of this encounter
--- OUTSIDE RECORDS SUMMARY | 2025-01-20 18:25 | XMS_ITS | Encounter Summary ---
Author Organization [employer] Address [address] [facility] 7t [place] [address] Care Team Providers Care Washer Meat Name Role Phone Gemini Chavez MD Primary Care Provide r Reason for Visit * Reason Comments Med Refill Encounter Details Date Type Department Care Team ([facility] st Contact Info) Description 10/16/2024 Refill [facility] MEDICINE [address] [place], [place] [phone] Gemini Chavez MD [address] [place] [address] Prediabetes Social History Tobacco Use Types Packs/Day [...] 11:15 AM EST Office Visit [facility] MEDICINE [address] [place] [address] Gemini Chavez MD [address] [place] [address] documented as of this encounter Visit Diagnoses Diagnosis Prediabetes Other abnormal glucose documented in this encounter Additional Health Concerns Assessment Noted Time PHQ-9 Depression Total Score: 0 09/03/19 24 9:55 AM EDT documented as of this encounter Care Teams Washer Meat Relationship Specialty Start Date End Date Gemini Chavez MD [address] [place] [address] PCP - General Family Medicine 01/21/18 [employer] 03/28/24 documented as of this encounter
--- OUTSIDE RECORDS SUMMARY | 2025-01-20 18:25 | XMS_ITS | Clinical Summary ---
Author Organization [address] [facility] Address [address] [place] [address] Phone Care Team Providers Care Laborer Concrete Plant Name Role Phone Gemini Chavez MD Primary Care Provide r Allergies No known active allergies Encounters Date Type Department Care Team Description 11/22/2024 4:00 PM EDT Office Visit Orthopedic [facility] [address] [phone] Gallito Hancock DPM Cellulitis of great toe, left (Primary Dx); Ingrowing nail; Dermatophytosis of nail; Type II diabetes mellitus with peripheral circulatory disorder (CMS/HCC V24, CMS/HCC V28); Pain in toe of right foot; Pain in toe of left foot 11/04/2024 1:45 PM EDT Office Visit [place] [address] [phone] Gallito Hancock DPM Ingrowing nail [...] PM EDT Office Visit [facility] [place] [address] [phone] Gallito Hancock, DPM 175 [facility] [address] [place] [address] Health Maintenance Due Date Last [...] ID:Not on file Type:Not on file Address: [facility] [place] ATTN:CLAIMS [address] [place] [phone] [place] [address] Member Subscriber Plan / Payer (Ef fective 2022-Present) Name:Min Daily Relation to Subscriber:Self Name:Min Daily Payer ID:[id number] Group ID:[id number] Type:Not on file Address: [address] [place] [phone] Care Teams Laborer Concrete Plant Relationship Specialty Start Date End Date Gemini Chavez MD NPI: [id number] [place] [id number] PCP - General 04/24/23
--- OUTSIDE RECORDS SUMMARY | 2025-01-20 18:25 | XMS_ITS | Clinical Summary ---
Author Organization [employer] Address [address] [place] [address] 7t [place] [address] Care Team Providers Care Systems Analyst Developer Name Role Phone Gemini Chavez MD [...] 2 023 Active furosemide (Lasix) 40 MG tabletIndications:Ironer Or Presser haylee systolic heart failure (CMS/HCC) TAKE ALTERNATING [...] ANAPHYLAXIS AND CALL [phone] Active Creon 80907-677705 units capsule delayed-release particles capsule Take 2 capsules by mouth 4 times daily. ADMINISTER WITH MEALS AND/OR SNACKS 023 Active Fluticasone-Salmeterol 250-50 MCG/ACT aerosol powder Inhale 1 puff 2 times daily. 024 Active Umeclidinium [place] (Incruse Ellipta) 62.5 MCG/ACT aerosol powderIndications:Ironer Or Presser haylee obstructive pulmonary disease, unspecified COPD type [...] 09/03 Active Blood Glucose Monitoring Suppl (FreeStyle [place] Lite) w/Device kitIndications:Prediab etes Use to test [...] TSH and contact him back Patient declines movie actor appointment Prediabetes 05/19/2023 Assessment & Plan (11/29/2024 [...] will like to be re-evalauted for more CLOUD ADMINISTRATOR hours Preop examination 02/13/2023 Assessment & Plan [...] ideally next day of procedure--I called his owner consulting engineer-Dr Ely's # [phone] office and spoke w PA -ok with [...] Encounters Date Type Department Care Team Description 01/20/2025 Orders Only GENERIC EXTERNAL DATA DEPARTMENT Provider, Generic External Data 01/18/2025 Telephone [facility] [address] [place] [address] Gemini Chavez MD NOV SASHA 12/22/2024 Telephone [facility] [address] [place] [address] Gemini Chavez MD Hypotension 12/16/2024 Refill [facility] [address] [place] [address] Gemini Chavez MD Pure hypercholesterolemia 12/15/2024 10:30 AM EDT Office Visit [facility] [address] [place] [address] Jessica Ho NP Chronic left shoulder pain (Primary Dx); Acute reactive otitis externa of both ears 12/15/2024 Telephone [facility] [address] [place] [address] Gemini Chavez MD telephone call 12/15/2024 Travel 12/14/[address] [address] Gemini Chavez MD Nurse Triage 12/11/2024 Orders Only [facility] External Provider, [facility] 12/01/2024 Refill [facility] [address] [place] [address] Gemini Chavez MD Prediabetes 12/01/2024 Refill [facility] [address] [place] [address] Gemini Chavez MD Primary hypertension 11/29/2024 11:00 AM EDT Office Visit [facility] [address] [place] [address] Gemini Chavez MD Chronic left shoulder pain (Primary Dx); Hypertension, unspecified type; Chronic systolic heart failure (CMS/HCC); COPD with asthma (CMS/HCC); Atrial fibrillation with RVR (CMS/HCC); Stage 3 chronic kidney disease, unspecified whether stage 3a or 3b CKD (CMS/HCC); Prediabetes; Class 1 obesity due to excess calories with serious comorbidity and body mass index (BMI) of 34.0 to 34.9 in adult 11/29/2024 Telephone [facility] [address] [place] [address] Gemini Chavez MD Prior Authorization (SUKH PA: Claudia) 11/29/2024 Travel 11/26/2024 Telephone [facility] [address] [place] [address] Gemini Chavez MD Chartprep 11/18/2024 Refill [facility] [address] [place] [address] Gemini Chavez MD Prediabetes 11/16/2024 Refill [facility] [address] [place], [place] [phone] Gemini Chavez MD Hypertension, unspecified type 11/01/2024 Refill [facility] [address] [place] [address] Gemini Chavez MD from Last 3 Months [...] 12/15/2024 9:59 AM EDT Plan of Treatment Upcoming Encounters Date Type Department Care Team (Late st Contact Info) Description 03/23/2025 11:15 AM EST Office Visit [facility] [address] [place] [address] Gemini Chavez MD [address] [place] [address] Health Maintenance Due Date Last Done Comments [...] Screening 12/15/2025 12/15/2024 Lipid Panel 05/03/2029 05/03/2024, 01/0 01/2024, 12/13/2022, [...] METABOLIC PANEL Routine 01/20/2025 3:40 PM EDT XR SHOULDER 2+ VIEWS LEFT Routine 12/11/2024 [...] Maintenance Results * (ABNORMAL) Basic Metabolic Panel (01/20/2025 3:40 PM EDT) Sodium 144 135 - 145 mmol/L [facility] Potassium 4.1 3.3 - 5.1 mmol/L [facility] Chloride 108 96 - 108 mmol/L [facility] Carbon Dioxide 25 22 - 29 mmol/L [facility] Anion Gap 15 12 - 20 [facility] Urea Nitrogen (BUN) 26(H) 9 - 16 mg/dL [facility] Creatinine, Serum 1.43(H) 0.5 - 1.4 mg/dL [facility] Estimated Glomerular Filt Rate 49 [facility] Comment:Chronic Kidney Disea se: Estimated GFR < 60 mL/min/1.59m2Uyhjui Kidney Disease: Estimated GFR < 15 mL/min/1.73m2 Glucose 73 60 - 115 mg/dL [facility] Calcium 9.5 8.4 - 10.2 mg/dL [facility] 01/20/2025 3:40 PM EDT 01/20/2025 3:40 PM EDT us Generic External Data Provider LAB BLOOD ORDERAB LES Final Result Performing Organization Address City/State/[facility] Co de Phone Number [facility] [address] [place] [phone] * XR Shoulder 2+ Views Left (12/11/2024 9:05 AM EDT) Anatomical Region Laterality Modality Upper Extremities, Shoulder Left Radi ographic Imaging 12/11/2024 9:05 AM EDT Narrative 12/11/2024 9:06 AM EDT [address] [address] XRay Report Signed Patient: Min Rees MR#: [id number] : 1955 Acct:[id number] Age/Sex: 69 / M ADM Date: 12/11/24 Loc: HO.ED Attending Dr: Ordering Physician: Zenaida Zaragoza MD Date of Service: 12/11/24 Procedure(s): XR shoulder LT min 2V Accession Number(s): [id number] cc: Gemini Chavez MD; Zenaida Zaragoza MD [...] in OV> 12/11/24905 DD/ 4 TD/TT: 12/11/24904 Fur Scraper: Procedure Note Donotuseinterpreter, Image - 12/11/2024 [place] [address] XRay Report Signed Patient: Min ReesMR#: [id number] : 1955cct:[id number] Age/Sex: 69 / MADM Date: 12/11/24 Loc: .ED Attending Dr: Ordering Physician: Zenaida Zaragoza MD Date of Service: 12/11/24 Procedure(s): XR shoulder LT min 2V Accession Number(s): [id number] cc: Gemini Chavez MD; Zenaida Zaragoza MD [...] Garnica MD on 12/11/2024 09:05:28 Dictated By: Gsaton Garnica MD Signed By: <Electronically signed by Gaston Garnica MD in OV> 12/11/24905 DD/ 4 TD/TT: 12/11/24904 Fur Scraper: [facility] External Provider IMG XR PROCEDURES Edited Result - Final * (ABNORMAL) POCT HGB A1C (11/29/2024 11:22 AM EDT) Hemoglobin A1C 5.7 4.0 - 5.7 % QC Media Lot # [id number] Lot# Expiration Date 3069, Blood 11/29/2024 11:2 2 AM EDT Gemini Chung MD POINT OF CARE TEST ENTER/EDIT ORDERABLES Edited Result - Final * POCT Glucose (11/29/2024 11:22 AM EDT) Glucose Blood, POC 178 60 - 200 mg/dL QC Media Lot # [id number] Lot# Expiration Date [id number] Blood Capillary blood specimen / Unknown 11/29/2024 11:22 AM EDT Gemini Chung MD POINT OF CARE TEST ENTER/EDIT ORDERABLES Edited Result - Final * (ABNORMAL) Lipid Panel, Standard (05/03/2024 8:15 AM EST) Triglycerides 230(H) <150 mg/dL [facility] Comment:Desirable Triglyceri de: less than 150 mg/dLBorderline High Triglyceride 150-199 mg/dLHigh Triglyceride: 200-499 mg/dLVery High Triglyceride: greater than or equal to 5OO mg/dL Cholesterol 118 <200 mg/dL [facility] Comment:Desirable Cholestero l: less than 200 mg/dLBorderline High Cholesterol: 200-239 mg/dLHigh Cholesterol: greater than 239 mg/dL LDL Cholesterol Calculated 41 <100 mg/dL [facility] Comment:Desirable LDL: less than 100 mg/dLNear Optimal/Above Optimal LDL: 110- 129 mg/dLBorderline High LDL: 130-159 mg/dLHigh LDL: 160-189 mg/dLVery High LDL: greater than or equal to 190 mg/dL HDL Cholesterol 31(L) >40 mg/dL [facility] Comment:Desirable HDL: great er than 40 mg/dL Note: This HDL assay may give artificially low results in patients with liver disease. Blood Venous blood specimen / Unknown 05/03/2024 8:15 AM EST 05/03/2024 11:40 AM EST us Gemini Chung MD LAB BLOOD ORDERABLES Final Result Performing Organization Address [facility] Co de Phone Number [facility] [address] [place] [phone] * Hm Colonoscopy (01/21/2024 10:19 AM EDT) Colonoscopy Normal Normal Narrative Jamila Page - 01/21/2024 10:19 AM EDT Repeat Colonoscopy in 6-12 months due to poor right prep or earlier if clinically indicated see external hospital admission note on 01/21/2024 Bryon Arryoo MD HEALTH MAINTENANCE Edited Result - Final * Hepatitis C Antibody Reflex (12/13/2022 8:21 AM EDT) Hepatitis C Antibody Nonreactive Nonreactive [facility] Comment:Antibodies to HCV no t detected; does not exclude early acuteHCV infection. 12/13/2022 8:21 AM EDT 12/13/2022 11:08 AM EDT us Gemini Chung MD LAB BLOOD ORDERABLES Final Result Performing Organization Address [facility] Co de Phone Number [facility] [address] [place] [phone] from Last 3 Months or Most Recently Relevant to Health Maintenance Insurance [facility] USP OPTIONS (HMO D-SNP) [facility] [address] [place] [address] [phone] [address] [place] [phone] Care Teams Systems Analyst Developer Relationship Specialty Start Date End Date Gemini Chavez MD [address] [place] [address] PCP - General Family Medicine 01/21/18 [employer] 03/28/24
--- OUTSIDE RECORDS SUMMARY | 2025-01-20 18:25 | XMS_ITS | Encounter Summary ---
Author Organization [employer] [facility] Address [address] [facility] 7t [place] [address] Care Team Providers Care Concaver Name Role Phone Gemini Chavez MD Primary Care Provide r Encounter Details Date Type Department Care Team (Late st Contact Info) Description 01/22/2023 Orders Only [facility] [address] [place], [place] [phone] Gemini Chavez MD [address] [place], [place] [phone] COPD with asthma (CMS/HCC) Social History Tobacco [...] 11:15 AM EST Office Visit [facility] [address] [place], [place] [phone] Gemini Chavez MD [address] [place], [place] [phone] documented as of this encounter Visit Diagnoses Diagnosis COPD with asthma (CMS/HCC) documented in this encounter Additional Health Concerns Assessment Noted Time PHQ-9 Depression Total Score: 6 05/16/19 23 1:42 PM EST documented as of this encounter Care Teams Concaver Relationship Specialty Start Date End Date Gemini Chavez MD [address] [place] [address] PCP - General Family Medicine 01/21/18 [employer] 03/28/24 documented as of this encounter
--- OUTSIDE RECORDS SUMMARY | 2025-01-20 18:25 | XMS_ITS | Encounter Summary ---
Author Organization [employer] Address [address] [facility] 7t [place] [address] Care Team Providers Care Grade Recorder Name Role Phone Gemini Chavez MD Primary Care Provide r Encounter Details Date Type Department Care Team (Late st Contact Info) Description 05/10/2024 Orders Only [facility] [address] [place], [place] [phone] Gemini Chavez MD [address] [place], [place] [phone] Stage 3 chronic kidney disease, unspecified whether [...] Description 03/23/2025 11:15 AM EST Office Visit [facility] [address] [place] [phone] Gemini Chavez MD [address] [place] [address] documented as of this encounter Visit Diagnoses [...] documented as of this encounter Care Teams Grade Recorder Relationship Specialty Start Date End Date Gemini Chavez MD [address] [place] [address] PCP - General Family Medicine 01/21/18 [employer] 03/28/24 documented as of this encounter
--- OUTSIDE RECORDS SUMMARY | 2025-01-20 18:25 | XMS_ITS | Encounter Summary ---
Author Organization [facility] Address [address] [place] [address] Phone Care Team Providers Care Buyer Internship Name Role Phone Curt Richey MD Primary Care Provider + Encounter Details Date Type Department Care Team (Late st Contact Info) Description 12/24/2019 Ancillary Orders [facility] [address] [facility] 3rd Floor, [address] [place] [address] Curt Richey MD [address] [place] [address] Social History Tobacco Use Types Packs/Day Years [...] on filedocumented in this encounter Care Teams Buyer Internship Relationship Specialty Start Date End Date Curt Richey MD PCP - General Cardiology 12/21/19 documented as of this encounter Additional Source Comments The information contained in this document represents components of the legal health record. It is not the complete legal health record.[facility]
--- OUTSIDE RECORDS SUMMARY | 2025-01-20 18:25 | XMS_ITS | Encounter Summary ---
Author Organization [facility] Address [address] [facility] [address] [place] [address] Phone Care Team Providers Care Drop Tester Name Role Phone Curt Richey MD Primary Care Provider + Encounter Details Date Type Department Care Team (Latest Contact Info) Description 12/24/2019 Ancillary [facility] [address] [place] [address] [place] [address] Curt Richey MD [address] [place] [address] [email or web address] Atrial fibrillation, unspecified type Social History Tobacco [...] type documented in this encounter Care Teams Drop Tester Relationship Specialty Start Date End Date Curt Richey MD [email or web address] PCP - General Cardiology 12/21/19 documented as of this encounter Additional Source Comments The information contained in this document represents components of the legal health record. It is not the complete legal health record.[facility]
--- OUTSIDE RECORDS SUMMARY | 2025-01-20 18:25 | XMS_ITS | Encounter Summary ---
Author Organization [employer] Address [address] [facility] 7t [place] [address] Care Team Providers Care Land Law Examiner Name Role Phone Gemini Chavez MD Primary Care Provide r Reason for Visit * Reason Comments Med Refill Encounter Details Date Type Department Care Team ([facility] st Contact Info) Description 05/08/2024 Refill [facility] [address] [place], [place] [phone] Gemini Chavez MD [address] [place] [address] Class 1 obesity due to excess calories [...] 11:15 AM EST Office Visit [facility] [address] [place] [address] Gemini Chavez MD [address] [place] [address] documented as of this encounter Visit Diagnoses Diagnosis Class 1 obesity due to excess calories with serious comorbidity and body mass index (BMI) of 33.0 to 33.9 in adult documented in this encounter Additional Health Concerns Assessment Noted Time PHQ-9 Depression Total Score: 0 09/03/19 24 9:55 AM EDT documented as of this encounter Care Teams Land Law Examiner Relationship Specialty Start Date End Date Gemini Chavez MD [address] [place] [address] PCP - General Family Medicine 01/21/18 [employer] 03/28/24 documented as of this encounter
--- OUTSIDE RECORDS SUMMARY | 2025-01-20 18:25 | XMS_ITS | Encounter Summary ---
Author Organization [employer] Address [address] [facility] 7t [place] [address] Care Team Providers Care Business Services Manager Name Role Phone Gemini Chavez MD Primary Care Provide r Reason for Visit * Reason Onset Date Comments Nurse Triage 03/26/2023 Encounter Details Date Type Department Care Team ([facility] st Contact Info) Description 03/26/2023 Telephone [facility] [address] [place], [place] [phone] Gemini Chavez MD 230 [place] [address] Nurse Triage Social History Tobacco Use Types [...] 03/26/2023 11:47 AM EST Triage call with [employer] Trainee [place] [id number] Pt reports ingrown toenail great toe on left foot for 3 days now. Pt reports it is painful and causes some limping when ambulating. Pt denies redness, drainage. Pt requests a referral to pot lining supervisor which was very helpful last time this happened. Pt is advised will send this request to PCP and nursing team for follow up and Pt agreed. Pt declined to come to [facility] only wants pot lining supervisor to cut this toenail. Protocol Used: Information [...] accepted this outcome Please contact pt at [phone] (vice president quality improvement needed) documented in this encounter Plan of Treatment Upcoming Encounters Date Type Department Care Team ([facility] st Contact Info) Description 03/23/2025 11:15 AM EST Office Visit [facility] [address] [place] [phone] Gemini Chavez MD 230 [place], [place] [phone] documented as of this encounter Visit Diagnoses Not on filedocumented in this encounter Additional Health Concerns Assessment Noted Time PHQ-9 Depression Total Score: 6 05/16/19 23 1:42 PM EST documented as of this encounter Care Teams Business Services Manager Relationship Specialty Start Date End Date Gemini Chavez MD [address] [place], [place] [phone] PCP - General Family Medicine 01/21/18 [employer] 03/28/24 documented as of this encounter
--- OUTSIDE RECORDS SUMMARY | 2025-01-20 18:25 | XMS_ITS | Encounter Summary ---
Author Organization [employer] Address [address] [facility] 7t [place] [address] Care Team Providers Care Rf Technician Name Role Phone Gemini Chavez MD Primary Care Provide r Encounter Details Date Type Department Care Team (Late st Contact Info) Description 07/10/2023 Orders Only [facility] MEDICINE [address] [place], [place] [phone] Gemini Chavez MD [address] [place], [place] [phone] Mixed stress and urge urinary incontinence (Primary [...] t he electric, gas, oil or water [employer] threatened to shut off services in your [...] Description 03/23/2025 11:15 AM EST Office Visit [facility]INE [address] [place] [address] Gemini Chavez MD [address] [place] [address] documented as of this encounter Visit Diagnoses Diagnosis Mixed stress and urge urinary incontinence- Primary Mixed incontinence urge and stress (male)(female) documented in this encounter Additional Health Concerns Assessment Noted Time PHQ-9 Depression Total Score: 6 05/16/19 23 1:42 PM EST documented as of this encounter Care Teams Rf Technician Relationship Specialty Start Date End Date Gemini Chavez MD [address] [place] [address] PCP - General Family Medicine 01/21/18 [employer] 03/28/24 documented as of this encounter
--- OUTSIDE RECORDS SUMMARY | 2025-01-20 18:25 | XMS_ITS | Clinical Summary ---
Author Organization [facility] Address [address] [facility] [address] [place] [phone] Phone Care Team Providers Care Hairspring Vibrator Name Role Phone Curt Richey MD Primary [...] Medical Devices Not on file Insurance [address] [place] [phone] [facility] ONE CARE MEDICARE REPLACEMENT CLIFF DONAHUE [facility] MEDICARE REPLACEMENT MEDICARE REPLACEMENT CARE MEDICARE [place] [address] [place] [address] ONE CARE MEDICARE REPLACEMENT Care Teams Hairspring Vibrator Relationship Specialty Start Date End Date Curt Richey MD PCP - General Cardiology 12/21/19 Additional Source Comments The information contained in this document represents components of the legal health record. It is not the complete legal health record.[facility]
--- OUTSIDE RECORDS SUMMARY | 2025-01-20 18:25 | XMS_ITS | Encounter Summary ---
Author Organization [employer] Address [address] [facility] 7t [place] [address] Care Team Providers Care Protozoologist Name Role Phone Gemini Chavez MD Primary Care Provide r Reason for Visit * Reason Comments Med Change Request Encounter Details Date Type Department Care Team (Late st Contact Info) Description 02/04/2023 Refill [facility] P[facility]S [address] [place], [place] [phone] Marsha Menjivar MD [address] [place] [address] Primary hypertension Social History Tobacco Use Types [...] Description 03/23/2025 11:15 AM EST Office Visit [facility] [address] [place] [address] Gemini Chavez MD [address] [place] [address] documented as of this encounter Visit Diagnoses Diagnosis Primary hypertension Unspecified essential hypertension documented in this encounter Additional Health Concerns Assessment Noted Time PHQ-9 Depression Total Score: 6 05/16/19 23 1:42 PM EST documented as of this encounter Care Teams Protozoologist Relationship Specialty Start Date End Date Gemini Chavez MD [address] [place] [address] PCP - General Family Medicine 01/21/18 [employer] 03/28/24 documented as of this encounter
--- OUTSIDE RECORDS SUMMARY | 2025-01-20 18:25 | XMS_ITS | Encounter Summary ---
Author Organization [employer] Address [address] [facility] 7t [place] [address] Care Team Providers Care Tape Stringer Name Role Phone Gemini Chavez MD Primary Care Provide r Reason for Visit * Reason Onset Date Comments Referral 03/14/2023 Encounter Details Date Type Department Care Team ([facility] st Contact Info) Description 03/14/2023 Telephone [facility] MEDICINE 230 [place], [place] [phone] Gemini Chavez MD 230 [place], [place] [phone] Referral Social History Tobacco Use Types Packs/Day [...] t he electric, gas, oil or water [employer] threatened to shut off services in your [...] Description 03/23/2025 11:15 AM EST Office Visit [facility] [address] [place] [address] Gemini Chavez MD [address] [place] [address] documented as of this encounter Visit Diagnoses Not on filedocumented in this encounter Additional Health Concerns Assessment Noted Time PHQ-9 Depression Total Score: 6 05/16/19 23 1:42 PM EST documented as of this encounter Care Teams Tape Stringer Relationship Specialty Start Date End Date Gemini Chavez MD [address] [place] [address] PCP - General Family Medicine 01/21/18 [employer] 03/28/24 documented as of this encounter
--- OUTSIDE RECORDS SUMMARY | 2025-01-20 18:25 | XMS_ITS | Encounter Summary ---
Author Organization [employer] Address [address] [facility] 7t [place] [address] Care Team Providers Care Industrial Staff Nurse Name Role Phone Gemini Chavez MD Primary Care Provide r Reason for Visit * Reason Comments Med Refill Encounter Details Date Type Department Care Team (Late st Contact Info) Description 10/20/2023 Refill [facility]EDS [address] [place], [place] [phone] Gemini Chavez MD [address] [facility] [place] [address] Seasonal allergies Social History Tobacco Use Types [...] Description 03/23/2025 11:15 AM EST Office Visit [facility] MEDICINE [address] [place] [address] Gemini Chavez MD [address] [place] [phone] documented as of this encounter Visit Diagnoses Diagnosis Seasonal allergies Allergic rhinitis, cause unspecified documented in this encounter Additional Health Concerns Assessment Noted Time PHQ-9 Depression Total Score: 0 09/03/19 9:55 AM EDT documented as of this encounter Care Teams Industrial Staff Nurse Relationship Specialty Start Date End Date Gemini Chavez MD [address] [place] [address] PCP - General Family Medicine 01/21/18 [employer] 03/28/24 documented as of this encounter
== END 2025-01-20 15:43 | disposition home or self-care (01) ==
LOC: HO.HOS 14:57
PROVIDERS: PCP Internal Medicine; Visit Provider Physician Assistant
DX: M77.8 Other enthesopathies, not elsewhere classified (principal)
CPT/HCPCS: 99213; G2211

== ENCOUNTER 2025-01-20 16:23 | Outpatient (AMB) | payer OTHER, SELFPAY ==
--- NOTE | 2025-01-20 16:25 | A.OFFVIS_ITS ---
Vital Signs 01/20/25 16:26 Height 5 ft 6 in Weight 215 lb 2.738 oz BMI 34.7 BP 105/81 Blood Pressure Location Rt brachial Position Sitting Pulse 93 Intake Visit Reasons: IBS, GERD Intake Note: Min presents in office today in follow up of IBS and GERD. CC: Patient reports abd bloating, and trouble swallowing solids. Ethernet Network Architect Required: Yes Ethernet Network Architect Language: [employer] Instruments Inspector Name: yV, GI LM Accompanied by: Self / Same As Patient Allergies Iodinated Contrast Media (CONTRAST, IV) Allergy (Unknown, Verified 01/20/25 16:32) HIVES kiwi (KIWI) Allergy (Unknown, Verified 01/20/25 16:32) THROAT SWELLING HPI HPI IBS, GERD: Details: Assessment & Plan (1) GERD (gastroesophageal reflux disease): Code(s): K21.9 - Gastro-esophageal reflux disease without esophagitis Category: Medical (2) Hx of colonoscopy: Comment: 02/2024=hyperplastic polyps kandice repeat 1 year r/t poor prep; 02/2013 Dr. Robles Code(s): Z98.890 - Other specified postprocedural states Category: Surgical (3) Constipation: Code(s): K59.00 - Constipation, unspecified Category: Medical Plan [facility]ARO[facility] #[facility] HE is on pantoprazole, creon, simethicone, senna, and a probiotic. His arm is in a sling today, he is having a lot of left arm pain and it is in a sling today. He just has xrays, apparently there is no dx yet. He continues to do well, however, due to a computer error he was taking 2 creon qid, instead of bid. We review this and he will change the dosing to decrease the pill burden. If he feels this is not effective we will re consider. Return office visit in 6 months Medications: Changed From rrbavx-fuxgtioj-ccrzrrl 36,000-114,000- 180,000 unit (Creon) 2 caps PO QID 720 caps 1RF To knwvla-aeovlgrn-rlwnmja 36,000-114,000- 180,000 unit (Creon) 2 caps PO BID 360 caps 1RF Refilled pantoprazole 40 mg PO DAILY 30 tabs 6RF sennosides (Senna Laxative) 17.2 mg (2 x 8.6 mg) PO BEDTIME 60 tabs 6RF K59.00 - Constipation, unspecified simethicone after meals 180 mg PO QID 30 days 120 caps 6RF R14.0 - Abdominal distension (gaseous) CORRESPONDENCE On 01/14/25 @ 08:34 Poornima Hernandez Wrote To Harleen Grimes called pt today with interp [id number] first number on file did not have box set up second number went right to so left a message asking pt to call back to be scheduled On 12/08/24 @ 08:43 Harleen Grimes Wrote To Harleen Grimes (2) patient may be scheduled anytime, does not need to wait until after pulmonary 01/18. He is on Eliquis 2 days prior. TODAY'S VISIT German #V live [facility] Medical History Hoarseness Dysphagia Colon cancer screening Throat disorder Bronchitis CHF (congestive heart failure) Afib Allergic rhinitis COPD (chronic obstructive pulmonary disease) CE (obstructive sleep apnea) Obesity (BMI 30-39.9) Hypothyroid Anxiety Palpitation HTN (hypertension) Surgical History Hx of umbilical hernia repair History of surgery on arm Hx of eye surgery Hx of colonoscopy Hx of knee surgery Hx of tonsillectomy Family History Family/Other No problems noted. Social History Household Members: None Housing: Apartment Do you presently have visiting nurse or other home services: Yes Alcohol intake: former Patient Tobacco Use Status: Former Tobacco user Advance Directives Date on File: 08/11/23 service: No Review of Systems Const Denies fatigue, Denies fever(s), Denies night sweats, Denies poor appetite and Denies weight loss Eyes Details: GLASSES Reports requires corrective lenses ENT Reports Normal hearing present, Denies dental pain, Denies dysphagia, Denies hearing loss, Denies mouth pain, Denies odynophagia, Denies throat swelling, Denies tongue swelling and Reports other (Dentition adequate) Card Reports no additional complaints Resp Reports no additional complaints GI Details: Denies abdominal pain, Denies melena, Reports bloating, Denies hematochezia, Re ports constipation, Denies GI cramping, Denies dysphagia, Denies excessive flatus, Denies early satiety, Reports heartburn, Denies diarrhea, Reports loose stools, Denies nausea, Denies odynophagia, Denies vomiting and Denies hematemesis Skin/Breast Denies pruritus, Denies lesions, Denies rash and Denies jaundice Neuro Reports Normal hearing present and Denies Abnormal speech present Endo Denies fatigue Aller/Immun Denies throat swelling and Denies tongue swelling Physical Exam Vital Signs: Last Vital Signs Pulse 93 01/20/25 16:26 BP 105/81 01/20/25 16:26 BMI result Body Mass Index 34.7 Const General: cooperative, no acute distress, well developed and well groomed Nutritional Appearance: well nourished and obese Orientation/consciousness: oriented to person, oriented to place and oriented to time Limitations: language barrier and ambulation with cane HEENT Head: Yes normocephalic and Yes atraumatic Eyes General: appearance normal, both eyes and all related structures Pupils: Equal, round and reactive pupils present Neck Neck: Yes normal visual inspection and Yes no lymphadenopathy Thyroid: Thyroid normal Resp Effort & Inspection: normal respiratory effort and able to speak in complete sentences Auscultation: clear to auscultation bilaterally Cardio Rate: regular rate Rhythm: regular rhythm Heart sounds: Normal, physiologic split S2 sound present Peripheral pulses: radial pulses present and posterior tibial pulses present GI Inspection: No distended, No Abdominal panniculus present and Yes obesity Palpation (GI): Soft to palpation, nontender, no guarding, not rigid and No hepatosplenomegaly present Percussion: Yes normal to percussion Auscultation: normal bowel sounds Rectal Exam - Male: Yes deferred Skin General skin exam: no rashes or lesions noted, turgor normal, skin not dry, no jaundice, No spider nevi and no striae Rashes: no rashes Nails: normal Neuro General: oriented to person, oriented to place and oriented to time Cranial nerves: Yes Equal, round and reactive pupils present and Yes Normal hearing present Speech: No Abnormal speech present Extrem General: Yes normal to inspection, No clubbing, No cyanosis and No edema Psych Appearance: grossly normal and well kempt Mental Status: mental status grossly normal Speech and movement: Normal speech and movement present Affect: normal affect Attitude: cooperative Thought process: Normal thought process present and not confabulating Thought content: Normal thought content present Insight: Fair insight present (Psych) Judgement: Fair judgement present (Psych) Assessment & Plan Assessment & Plan (1) GERD (gastroesophageal reflux disease): Code(s): K21.9 - Gastro-esophageal reflux disease without esophagitis Category: Medical (2) Pancreatic insufficiency: Code(s): K86.89 - Other specified diseases of pancreas Category: Medical (3) Constipation: Code(s): K59.00 - Constipation, unspecified Category: Medical (4) Abdominal bloating: Code(s): R14.0 - Abdominal distension (gaseous) Category: Medical (5) Hx of colonoscopy: Comment: 02/2024=hyperplastic polyps kandice repeat 1 year r/t poor prep; 02/2013 Dr. Robles Code(s): Z98.890 - Other specified postprocedural states Category: Surgical Plan German # V live HE is on pantoprazole, creon, simethicone, senna, and a probiotic. - The patient is a 69 year old male presenting for follow-up for GERD, IBS and bloating. - Medication intake includes Creon, taken two capsules twice daily; previously he, because of a miscommunication, was taking 2 caps 4 times a day. His symptom control has been the same since we reduced the dose so clearly this would just be a waste of his money to continue a higher dose. - Reports unresolved pain in arm with pending MRI; x-rays showed no issues. - Colonoscopy planned, communication issues with appointment scheduling due to phone issues. We walk him down to the schedulers to see if we can get an in- person appointment nail down. - New kidney-related concerns noted during recent blood test with results pending. Return office visit in 6 months COLONOSCOPY BIOPSY Coding Level of Care Code Est Pt Level 3 (45299) Diagnoses GERD (gastroesophageal reflux disease) K21.9 Pancreatic insufficiency K86.89 Constipation K59.00 Abdominal bloating R14.0 Hx of colonoscopy Z98.890
[2025-01-20 16:26] VITALS: BP 105/81; PULSE 93; BMI 34.7
== END 2025-01-20 17:27 | disposition home or self-care (01) ==
LOC: HO.HGI 16:24
PROVIDERS: PCP Internal Medicine; Visit Provider Nurse Practitioner
DX: K21.9 Gastro-esophageal reflux disease without esophagitis (principal); K86.89 Other specified diseases of pancreas; K59.00 Constipation, unspecified; R14.0 Abdominal distension (gaseous); Z98.890 Other specified postprocedural states
CPT/HCPCS: 99213

== ENCOUNTER 2025-01-25 09:36 | Outpatient (AMB) | payer OTHER, SELFPAY ==
--- NOTE | 2025-01-25 09:49 | HO.NEPHOV ---
Vital Signs 01/25/25 09:50 Height 5 ft 6 in Weight 212 lb BMI 34.2 BP 100/76 Blood Pressure Location Rt brachial Position Sitting Pulse 91 Pulse Source Pulse Oximeter Pulse Oximetry (%) 98 Oxygen Delivery Method Room Air Intake Visit Reasons: 5 MO FU-Conf Vice President Of Brand Management Required: Yes Vice President Of Brand Management Name: [place] [id number] Accompanied by: Self / Same As Patient Allergies Iodinated Contrast Media (CONTRAST, IV) Allergy (Unknown, Verified 01/25/25 09:53) HIVES kiwi (KIWI) Allergy (Unknown, Verified 01/25/25 09:53) THROAT SWELLING Medication List - Last Reconciled 01/25/25 by Claudio Allan MD albuterol sulfate 3 mg inhalation QID PRN albuterol sulfate 90 mcg/actuation (Ventolin HFA) 2 puffs PO Q6H PRN amlodipine 10 mg PO DAILY apixaban 5 mg PO BID bisacodyl (Dulcolax (bisacodyl)) 10 mg (2 x 5 mg) PO BEDTIME 2 days cholecalciferol (vitamin D3) 50 mcg PO DAILY clonazepam 1 mg PO BID PRN diclofenac sodium 1% 2 grams topical QID epinephrine (EpiPen 2-Blaise) 0.3 mg (0.3 mL) IM Q4H PRN fluticasone propion-salmeterol 250-50 mcg/dose (Wixela Inhub) 1 inh inhalation BID furosemide 40 mg PO Q2D hydrochlorothiazide 25 mg PO DAILY hydroxyzine pamoate 25 mg PO BID PRN L.acidoph,saliva-B.bif-S.therm 175 mg (Acidophilus Probiotic Blend) 1 cap PO DAILY levothyroxine 100 mcg PO DAILY tfrxoz-ddtiewme-qthtzzz 36,000-114,000- 180,000 unit (Creon) 2 caps PO BID lisinopril 40 mg PO DAILY meclizine 25 mg PO DAILY metformin 500 mg PO BID metoprolol succinate ER 200 mg PO DAILY oxycodone 5 mg PO Q8H PRN pantoprazole 40 mg PO DAILY rosuvastatin 40 mg PO DAILY sennosides (Senna Laxative) 17.2 mg (2 x 8.6 mg) PO BEDTIME simethicone 180 mg PO QID 30 days sodium,potassium,mag sulfates 17.5-3.13-1.6 gram (Suprep Bowel Prep Kit) DILUTE; drink 1/2 at 6-8 pm and half at 11 PM- 1AM tramadol 50 mg PO BEDTIME 7 days umeclidinium 62.5 mcg/actuation (Incruse Ellipta) 1 inh inhalation DAILY vitamin E (dl, acetate) 45 mg PO DAILY zolpidem 10 mg PO BEDTIME PRN HPI Comments Details: Min is a pleasant 68-year-old man with a history of obesity with hypertension has been referred for chronic kidney disease. Two months ago creatinine was 1.46. Subsequently this has improved. He is on Wegovy and he was lost about 40 lb. 05/25/24;Wegovy had been discontinued Lost 4 lbs since last visit 3 weeks ago 08/24/24: Overall doing well. Gained about 10 lbs During last visit, BP is relatively low, Lisinopril can be decreased by 50 % to 20 mg a day but he is still on 40 mg I beleive. He is not sure 01/25/25 The patient is a 69-year-old male presenting with low blood pressure and CKD He has been taking furosemide and hydrochlorothiazide, contributing to hypotension. Blood pressure is currently too low, requiring medication adjustment. Medications: - Furosemide: 40 mg Q2D - Hydrochlorothiazide: Diuretic for fluid management - Lisinopril 40 mg: PFSH Medical History Hoarseness Dysphagia Colon cancer screening Throat disorder Bronchitis CHF (congestive heart failure) Afib Allergic rhinitis COPD (chronic obstructive pulmonary disease) CE (obstructive sleep apnea) Obesity (BMI 30-39.9) Hypothyroid Anxiety Palpitation HTN (hypertension) Surgical History Hx of umbilical hernia repair History of surgery on arm Hx of eye surgery Hx of colonoscopy Hx of knee surgery Hx of tonsillectomy Family History Family/Other No problems noted. Social History Household Members: None Housing: Apartment Do you presently have visiting nurse or other home services: Yes Alcohol intake: former Patient Tobacco Use Status: Former Tobacco user Advance Directives Date on File: 08/11/23 service: No Physical Exam Vital Signs: Last Vital Signs Pulse 91 01/25/25 09:50 BP 100/76 01/25/25 09:50 Pulse Ox 98 01/25/25 09:50 Oxygen Delivery Method Room Air 01/25/25 09:50 BMI result Body Mass Index 34.2 Comfortable Neck supple no JVD. Lungs entry equal no rales. Heart S1-S2 heard no gallop or rub. Abdomen soft nontender. Neuro alert awake oriented. No asterixis. Extremities no edema. Results Reviewed Nephrology Results: Sodium, (135-145) 144 mmol/L 01/20/25 Potassium, (3.3-5.1) 4.1 mmol/L 01/20/25 Chloride, (96-108) 108 mmol/L 01/20/25 Carbon Dioxide, (22-29) 25 mmol/L 01/20/25 BUN, (9-16) 26 mg/dL H 01/20/25 Creatinine, (0.5-1.4) 1.43 mg/dL H 01/20/25 Calcium, (8.4-10.2) 9.5 mg/dL 01/20/25 Renal US 05/11/24 Assessment & Plan Assessment & Plan (1) CKD (chronic kidney disease): Code(s): N18.9 - Chronic kidney disease, unspecified Category: Medical Plan 68-year-old man with the acute kidney injury superimposed on chronic kidney disease. Acute kidney injury has resolved. He was underlying chronic kidney disease most likely due to hypertensive nephrosclerosis. In 2022 abdominal ultrasonogram showed a nonobstructing calculi in the right kidney. No obstructive uropathy based on ultrasonogram in Apr 2024 Optimize blood pressure control. Avoid hypotension. Encouraged to bring all his meds during next visit May need to adjust diuretics. No need to stay on both Lasix and HCTZ 01/25/25 1. Hypotension - Stop furosemide, continue hydrochlorothiazide. - Decrease lisinopril to 20 mg. - Blood test in 4 weeks. Written instructions given 2. CKD Worsening of Creatinine ? Hypoperfusion Above changes should improve renal fucntion Recheck REnal panel in few weeks Orders: Orders Basic Metabolic Panel 4 Weeks N18.9 - Chronic kidney disease, unspecified Coding Level of Care Code Est Pt Level 4 (01336) Diagnoses CKD (chronic kidney disease) N18.9
[2025-01-25 09:50] VITALS: BP 100/76; PULSE 91; O2SAT 98; BMI 34.2
--- OUTSIDE RECORDS SUMMARY | 2025-01-25 12:14 | XMS_ITS | Encounter Summary ---
Author Organization [employer] Address [address] [facility] 7t [place] [address] Care Team Providers Care Courier Driver Name Role Phone Gemini Chavez MD Primary Care Provide r Reason for Visit * Reason Onset Date Comments Appointment Request 08/21/2022 Encounter Details Date Type Department Care Team ([facility] st Contact Info) Description 08/21/2022 Telephone [facility] [address] [place], [place] [phone] Gemini Chavez MD [address] [place] [address] Appointment Request Social History Tobacco Use Types [...] an family emergency. Please contact pt at [phone] documented in this encounter Plan of Treatment Upcoming Encounters Date Type Department Care Team (Late st Contact Info) Description 03/23/2025 11:15 AM EST Office Visit [facility] [address] [place] [address] Gemini Chavez MD [address] [place] [address] documented as of this encounter Visit Diagnoses Not on filedocumented in this encounter Additional Health Concerns Assessment Noted Time PHQ-9 Depression Total Score: 6 05/16/19 23 1:42 PM EST documented as of this encounter Care Teams Courier Driver Relationship Specialty Start Date End Date Gemini Chavez MD [address] [place] [address] PCP - General Family Medicine 01/21/18 [employer] 03/28/24 documented as of this encounter
--- OUTSIDE RECORDS SUMMARY | 2025-01-25 12:14 | XMS_ITS | Encounter Summary ---
Author Organization [employer] Address [address] [facility] 7t [place] [address] Care Team Providers Care Business Machine Operator Name Role Phone Gemini Chavez MD Primary Care Provide r Reason for Visit * Reason Onset Date Comments Nurse Triage 03/26/2023 Encounter Details Date Type Department Care Team ([facility] st Contact Info) Description 03/26/2023 Telephone [facility] 230 [place], [place] [phone] Gemini Chavez MD [address] [place] [address] Nurse Triage Social History Tobacco Use Types [...] 03/26/2023 11:47 AM EST Triage call with [place] [id number] Pt reports ingrown toenail great toe on left foot for 3 days now. Pt reports it is painful and causes some limping when ambulating. Pt denies redness, drainage. Pt requests a referral to balance staff staker which was very helpful last time this happened. Pt is advised will send this request to PCP and nursing team for follow up and Pt agreed. Pt declined to come to [facility] only wants balance staff staker to cut this toenail. Protocol Used: Information [...] accepted this outcome Please contact pt at [phone] (aquatic physiotherapist needed) documented in this encounter Plan of Treatment Upcoming Encounters Date Type Department Care Team ([facility] st Contact Info) Description 03/23/2025 11:15 AM EST Office Visit [facility] [address] [place] [address] [phone] Gemini Chavez MD [address] [place], [place] [phone] documented as of this encounter Visit Diagnoses Not on filedocumented in this encounter Additional Health Concerns Assessment Noted Time PHQ-9 Depression Total Score: 6 05/16/19 23 1:42 PM EST documented as of this encounter Care Teams Business Machine Operator Relationship Specialty Start Date End Date Gemini Chavez MD [address] [place], [place] [phone] PCP - General Family Medicine 01/21/18 [employer] 03/28/24 documented as of this encounter
--- OUTSIDE RECORDS SUMMARY | 2025-01-25 12:14 | XMS_ITS | Encounter Summary ---
Author Organization [employer] Address [address] [facility] 7t [place] [address] Care Team Providers Care Stripe Matcher Name Role Phone Gemini Chavez MD Primary Care Provide r Reason for Visit * Reason Comments Med Change Request Encounter Details Date Type Department Care Team (Late st Contact Info) Description 02/04/[address] [facility] [address] [place], [place] [phone] Marsha Menjivar MD 230 [place] [address] Primary hypertension Social History Tobacco Use Types [...] Office Visit [facility] [address] [place] [address] Gemini Chavez MD [address] [place] [address] documented as of this encounter Visit Diagnoses Diagnosis Primary hypertension Unspecified essential hypertension documented in this encounter Additional Health Concerns Assessment Noted Time PHQ-9 Depression Total Score: 6 05/16/19 23 1:42 PM EST documented as of this encounter Care Teams Stripe Matcher Relationship Specialty Start Date End Date Gemini Chavez MD [address] [place] [address] PCP - General Family Medicine 01/21/18 [employer] 03/28/24 documented as of this encounter
--- OUTSIDE RECORDS SUMMARY | 2025-01-25 12:14 | XMS_ITS | Encounter Summary ---
Author Organization [employer] Address [address] [facility] 7t [place] [address] Care Team Providers Care Edi Architect Name Role Phone Gemini Chavez MD Primary Care Provide r Reason for Visit * Reason Onset Date Comments Prior Authorization 06/10/2024 Encounter Details Date Type Department Care Team ([facility] st Contact Info) Description 06/10/2024 Telephone [facility] [address] [place], [place] [phone] Gemini Chavez MD [address] [place] [address] Prior Authorization Social History Tobacco Use Types [...] is required on PA. Contact pt at [phone] (bahraini) * Telephone Encounter - Rohit Cruz - 06/10/2024 9:00 AM EST Tc from pt requesting a PA for Tirzepatide-Weight Management (Zepbound) 2.5 MG/0.5ML solution auto-injector because pt stated that he received a letter stating that PA got denied. Contact pt: [phone] (Armenian) documented in this encounter Plan of Treatment Upcoming Encounters Date Type Department Care Team (Late st Contact Info) Description 03/23/2025 11:15 AM EST Office Visit [facility] [address] [place], [place] [phone] Gemini Chavez MD [address] [place] [address] documented as of this encounter Visit Diagnoses Not on filedocumented in this encounter Additional Health Concerns Assessment Noted Time PHQ-9 Depression Total Score: 0 09/03/19 9:55 AM EDT documented as of this encounter Care Teams Edi Architect Relationship Specialty Start Date End Date Gemini Chavez MD [address] [place] [address] PCP - General Family Medicine 01/21/18 [employer] 03/28/24 documented as of this encounter
--- OUTSIDE RECORDS SUMMARY | 2025-01-25 12:14 | XMS_ITS | Encounter Summary ---
Author Organization [employer] [facility] Address [address] [facility] 7t [place] [address] Care Team Providers Care Olive Grower Name Role Phone Gemini Chavez MD Primary Care Provide r Encounter Details Date Type Department Care Team (Late st Contact Info) Description 01/22/2023 Orders Only [facility] MED[facility]INE 230 [place], [place] [phone] Gemini Chavez MD [address] [place], [place] [phone] COPD with asthma (CMS/HCC) Social History Tobacco [...] Description 03/23/2025 11:15 AM EST Office Visit [facility] 230 [place], [place] [phone] Gemini Chavez MD [address] [place], [place] [phone] documented as of this encounter Visit Diagnoses Diagnosis COPD with asthma (CMS/HCC) documented in this encounter Additional Health Concerns Assessment Noted Time PHQ-9 Depression Total Score: 6 05/16/19 23 1:42 PM EST documented as of this encounter Care Teams Olive Grower Relationship Specialty Start Date End Date Gemini Chavez MD [address] [place] [address] PCP - General Family Medicine 01/21/18 [employer] 03/28/24 documented as of this encounter
--- OUTSIDE RECORDS SUMMARY | 2025-01-25 12:14 | XMS_ITS | Encounter Summary ---
Author Organization [employer] Address [address] [facility] 7t [place] [address] Care Team Providers Care Cloth Bleaching Range Tender Name Role Phone Gemini Chavez MD Primary Care Provide r Reason for Visit * Reason Comments Med Refill Encounter Details Date Type Department Care Team ([facility] st Contact Info) Description 03/03/2024 Refill [facility] [address] [place], [place] [phone] Gemini Chavez MD [address] [place], [place] [phone] Social History Tobacco Use Types Packs/Day Years [...] Description 03/23/2025 11:15 AM EST Office Visit [facility] [address] [place] [address] Gemini Chavez MD [address] [place] [address] documented as of this encounter Visit Diagnoses Not on filedocumented in this encounter Additional Health Concerns Assessment Noted Time PHQ-9 Depression Total Score: 0 09/03/19 24 9:55 AM EDT documented as of this encounter Care Teams Cloth Bleaching Range Tender Relationship Specialty Start Date End Date Gemini Chavez MD [address] [place] [address] PCP - General Family Medicine 01/21/18 [employer] 03/28/24 documented as of this encounter
--- OUTSIDE RECORDS SUMMARY | 2025-01-25 12:14 | XMS_ITS | Encounter Summary ---
Author Organization [employer] Address [address] [facility] 7t [place] [address] Care Team Providers Care Marketing Sales Manager Name Role Phone Gemini Chavez MD Primary Care Provide r Reason for Visit * Reason Onset Date Comments Referral 03/14/2023 Encounter Details Date Type Department Care Team ([facility] st Contact Info) Description 03/14/[address] [facility] [address] [place], [place] [phone] Gemini Chavez MD 230 [place], [place] [phone] Referral Social History Tobacco Use Types Packs/Day [...] t he electric, gas, oil or water [employer] threatened to shut off services in your [...] 03/23/2025 11:15 AM EST Office [facility] [address] [place] [address] Gemini Chavez MD 230 [place] [address] documented as of this encounter Visit Diagnoses Not on filedocumented in this encounter Additional Health Concerns Assessment Noted Time PHQ-9 Depression Total Score: 6 05/16/19 23 1:42 PM EST documented as of this encounter Care Teams Marketing Sales Manager Relationship Specialty Start Date End Date Gemini Chavez MD [address] [place] [address] PCP - General Family Medicine 01/21/18 [employer] 03/28/24 documented as of this encounter
--- OUTSIDE RECORDS SUMMARY | 2025-01-25 12:14 | XMS_ITS | Encounter Summary ---
Author Organization [employer] [facility] Address [address] [facility] 7t [place] [address] Care Team Providers Care Value Engineer Name Role Phone Gemini Chavez MD Primary Care Provide r Reason for Visit * Reason Comments Med Refill Encounter Details Date Type Department Care Team (Late st Contact Info) Description 10/07/2022 Refill [facility] 230 [place], [place] [phone] Gemini Chavez MD 230 [place], [place] [phone] Chronic systolic heart failure (CMS/HCC) Social History [...] EST Office Visit [facility] 230 [place], [place] [phone] Gemini Chavez MD [address] [place] [address] documented as of this encounter Visit Diagnoses Diagnosis Chronic systolic heart failure (CMS/HCC) Chronic systolic heart failure documented in this encounter Additional Health Concerns Assessment Noted Time PHQ-9 Depression Total Score: 6 05/16/19 23 1:42 PM EST documented as of this encounter Care Teams Value Engineer Relationship Specialty Start Date End Date Gemini Chavez MD [address] [place] [address] PCP - General Family Medicine 01/21/18 [employer] 03/28/24 documented as of this encounter
--- OUTSIDE RECORDS SUMMARY | 2025-01-25 12:14 | XMS_ITS | Encounter Summary ---
Author Organization [employer] Address 75 [facility] 7t [place] [address] Care Team Providers Care Braid Maker Name Role Phone Gemini Chavez MD Primary Care Provide r Reason for Visit * Reason Comments Med Refill Encounter Details Date Type Department Care Team ([facility] st Contact Info) Description 02/12/2024 Refill [facility] [address] [place], [place] [phone] Gemini Chavez MD 230 [place] [address] Prediabetes Social History Tobacco Use Types Packs/Day [...] Description 03/23/2025 11:15 AM EST Office Visit [facility] [address] [place] [address] Gemini Chavez MD [address] [place] [address] documented as of this encounter Visit Diagnoses Diagnosis Prediabetes Other abnormal glucose documented in this encounter Additional Health Concerns Assessment Noted Time PHQ-9 Depression Total Score: 0 09/03/19 24 9:55 AM EDT documented as of this encounter Care Teams Braid Maker Relationship Specialty Start Date End Date Gemini Chavez MD [address] [place] [address] PCP - General Family Medicine 01/21/18 [employer] 03/28/24 documented as of this encounter
--- OUTSIDE RECORDS SUMMARY | 2025-01-25 12:14 | XMS_ITS | Encounter Summary ---
Author Organization [employer] Address 75 [facility] 7t [place] [address] Care Team Providers Care Medical Assistant Prn Name Role Phone Gemini Chavez MD Primary Care Provide r Reason for Visit * Reason Comments Med Refill Encounter Details Date Type Department Care Team ([facility] st Contact Info) Description 02/12/2024 Refill [facility] 230 [place], [place] [phone] Gemini Chavez MD 230 [place] [address] Prediabetes Social History Tobacco Use Types Packs/Day [...] Description 03/23/2025 11:15 AM EST Office Visit [facility] [address] [place] [address] Gemini Chavez MD [address] [place] [address] documented as of this encounter Visit Diagnoses Diagnosis Prediabetes Other abnormal glucose documented in this encounter Additional Health Concerns Assessment Noted Time PHQ-9 Depression Total Score: 0 09/03/19 24 9:55 AM EDT documented as of this encounter Care Teams Medical Assistant Prn Relationship Specialty Start Date End Date Gemini Chavez MD [address] [place] [address] PCP - General Family Medicine 01/21/18 [employer] 03/28/24 documented as of this encounter
--- OUTSIDE RECORDS SUMMARY | 2025-01-25 12:14 | XMS_ITS | Clinical Summary ---
Author Organization [employer] Address [address] [place] [address] 7t [place] [address] Care Team Providers Care Emergency Man Name Role Phone Gemini Chavez MD [...] 2 023 Active furosemide (Lasix) 40 MG tabletIndications:Glove Parts Cutter haylee systolic heart failure (CMS/HCC) TAKE ALTERNATING [...] ANAPHYLAXIS AND CALL 911 023 Active Creon 49907-034514 units capsule delayed-release particles capsule Take 2 capsules by mouth 4 times daily. ADMINISTER WITH MEALS AND/OR SNACKS 023 Active Fluticasone-Salmeterol 250-50 MCG/ACT aerosol powder Inhale 1 puff 2 times daily. 024 Active Umeclidinium [place] (Incruse Ellipta) 62.5 MCG/ACT aerosol powderIndications:Glove Parts Cutter haylee obstructive pulmonary disease, unspecified COPD type [...] Once per day. 60 tablet 11 025 2025 Active amLODIPine (Norvasc) 10 MG tablet Take 1 tablet (10 mg) by mouth Once per day. 30 tablet 11 025 2025 Active Tirzepatide-Weight Management (Zepbound) 2.5 MG/0.5ML solution [...] sugar once daily 100 each 3 025 2025 Active Blood Glucose Monitoring Suppl (FreeStyle [employer] Lite) w/Device kitIndications:Prediab etes Use to test blood sugar once daily 1 kit Active cholecalciferol (D3) 50 MCG (1999) tabletIndications:Brynn [...] [facility] [place] [facility] 90 tablet 1 Active Hospital, Clinic, or Other Facility Administered Medication [...] TSH and contact him back Patient declines glacing machine tender appointment Prediabetes 05/19/2023 Assessment & Plan (11/29/2024 [...] will like to be re-evalauted for more DISTRIBUTION CENTER MANAGER hours Preop examination 02/13/2023 Assessment & Plan [...] ideally next day of procedure--I called his stripper machine operator-Dr Ely's # [phone] office and spoke w PA -ok with [...] DEPARTMENT Provider, Generic External Data 01/18/2025 Telephone [facility] [address] [place] [address] Gemini Chavez MD NOV RECALL 12/22/2024 Telephone [facility] [address] [place] [address] Gemini Chavez MD Hypotension 12/16/2024 Refill [facility] [address] [place], [place] [phone] Gemini Chavez MD Pure hypercholesterolemia 12/15/2024 10:30 AM EDT Office Visit [facility] [address] [place] [address] Jessica Ho NP Chronic left shoulder pain (Primary Dx); Acute reactive otitis externa of both ears 12/15/2024 Telephone [facility] [address] [place] [address] Gemini Chavez MD telephone call 12/15/2024 Travel 12/14/2024 Telephone [facility] [address] [place] [address] Gemini Chavez MD Nurse Triage 12/11/2024 Orders Only [facility] External Provider, [facility] 12/01/2024 Refill [facility] [address] [place] [address] Gemini Chavez MD Prediabetes 12/01/2024 Refill [facility] [address] [place] [address] Gemini Chavez MD Primary hypertension 11/29/2024 11:00 AM EDT Office Visit [facility] [address] [place] [address] Gemini Chavez MD Chronic left shoulder pain (Primary Dx); Hypertension, unspecified type; Chronic systolic heart failure (CMS/HCC); COPD with asthma ([facility]/HCC); Atrial fibrillation with RVR ([facility]/HCC); Stage 3 chronic kidney disease, unspecified whether stage 3a or 3b CKD ([facility]/HCC); Prediabetes; Class 1 obesity due to excess calories with serious comorbidity and body mass index (BMI) of 34.0 to 34.9 in adult 11/29/2024 Telephone [facility] [address] [place] [address] Gemini Chavez MD Prior Authorization ([facility] PA: Claudia) 11/29/2024 Travel 11/26/2024 Telephone [facility] [address] [place], [place] [phone] Gemini Chavez MD Chartprep 11/18/2024 Refill [facility] [address] [place] [address] Gemini Chavez MD Prediabetes 11/16/2024 Refill [facility] [address] [place], [place] [phone] Gemini Chavez MD Hypertension, unspecified type 11/01/2024 Refill [facility] [address] [place] [address] Gemini Chavez MD from Last 3 Months [...] Description 03/23/2025 11:15 AM EST Office Visit [facility] [address] [place] [address] Gemini Chavez MD 230 [place] [address] Health Maintenance Due Date Last Done Comments [...] EDT) Sodium 144 135 - 145 mmol/L [facility] Potassium 4.1 3.3 - 5.1 mmol/L [facility] Chloride 108 96 - 108 mmol/L [facility] Carbon Dioxide 25 22 - 29 mmol/L [facility] Anion Gap 15 12 - 20 [facility] Urea Nitrogen (BUN) 26(H) 9 - 16 mg/dL [facility] Creatinine, Serum 1.43(H) 0.5 - 1.4 mg/dL [facility] Estimated Glomerular Filt Rate 49 [facility] Comment:Chronic Kidney Disea se: Estimated GFR < 60 mL/min/1.72a6Lnayew Kidney Disease: Estimated GFR < 15 mL/min/1.73m2 Glucose 73 60 - 115 mg/dL [facility] Calcium 9.5 8.4 - 10.2 mg/dL [facility] 01/20/2025 3:40 PM EDT 01/20/2025 3:40 PM EDT us Generic External Data Provider LAB BLOOD ORDERAB LES Final Result Performing Organization Address City/State/RUST Co de Phone Number [facility] [address] [place] [phone] * XR Shoulder 2+ Views Left (12/11/2024 9:05 AM EDT) Anatomical Region Laterality Modality Upper Extremities, Shoulder Left Radi ographic Imaging 12/11/2024 9:05 AM EDT Narrative 12/11/2024 9:06 AM EDT [address] [address] XRay Report Signed Patient: Min Rees MR#: [id number] : 1955 Acct:[id number] Age/Sex: 69 / M ADM Date: 12/11/24 Loc: HO.ED Attending Dr: Ordering Physician: Zenaida Zaragoza MD Date of Service: 12/11/24 Procedure(s): XR shoulder LT min 2V Accession Number(s): [id number] cc: Gemini Chavez MD; Zenaida Zaragoza MD [...] in OV> 12/11/24905 DD/ 4 TD/TT: 12/11/24904 District Manager: Procedure Note Donotuseinterpreter, Image - 12/11/[address] [address] XRay Report Signed Patient: Min ReesMR#: [id number] : 1955cct:[id number] Age/Sex: 69 / MADM Date: 12/11/24 Loc: HO.ED Attending Dr: Ordering Physician: Zenaida Zaragoza MD Date of Service: 12/11/24 Procedure(s): XR shoulder LT min 2V Accession Number(s): [id number] cc: Gemini Chavez MD; Zenaida Zaragoza MD [...] in OV> 12/11/24905 DD/ 4 TD/TT: 12/11/24904 District Manager: [facility] External Provider IMG XR PROCEDURES Edited Result - Final * (ABNORMAL) POCT HGB A1C (11/29/2024 11:22 AM EDT) Hemoglobin A1C 5.7 4.0 - 5.7 % QC Media Lot # [id number] Lot# Expiration Date Blood 11/29/2024 11:2 2 AM EDT Gemini Chung MD POINT OF CARE TEST ENTER/EDIT ORDERABLES Edited Result - Final * POCT Glucose (11/29/2024 11:22 AM EDT) Pathologist [facility] Glucose Blood, POC 178 60 - 200 mg/dL QC Media Lot # [id number] Lot# Expiration Date 808, Blood Capillary blood specimen / Unknown 11/29/2024 11:22 AM EDT Gemini Chung MD POINT OF CARE TEST ENTER/EDIT ORDERABLES Edited Result - Final * (ABNORMAL) Lipid Panel, Standard (05/03/2024 8:15 AM EST) Triglycerides 230(H) <150 mg/dL [facility] Comment:Desirable Triglyceri de: less than 150 mg/dLBorderline High Triglyceride 150-199 mg/dLHigh Triglyceride: 200-499 mg/dLVery High Triglyceride: greater than or equal to 5OO mg/dL Cholesterol 118 <200 mg/dL [facility] Comment:Desirable Cholestero l: less than 200 mg/dLBorderline High Cholesterol: 200-239 mg/dLHigh Cholesterol: greater than 239 mg/dL LDL Cholesterol Calculated 41 <100 mg/dL [facility] Comment:Desirable LDL: less than 100 mg/dLNear Optimal/Above Optimal LDL: 110- 129 mg/dLBorderline High LDL: 130-159 mg/dLHigh LDL: 160-189 mg/dLVery High LDL: greater than or equal to 190 mg/dL HDL Cholesterol 31(L) >40 mg/dL [facility] Comment:Desirable HDL: great er than 40 mg/dL Note: This HDL assay may give artificially low results in patients with liver disease. Blood Venous blood specimen / Unknown 05/03/2024 8:15 AM EST 05/03/2024 11:40 AM EST Gemini Chung MD LAB BLOOD ORDERABLES Final Result Performing Organization Address [facility]/RUST Co de Phone Number [facility] [address] [place] [phone] * Hm Colonoscopy (01/21/2024 10:19 AM [...] AM EDT) Hepatitis C Antibody Nonreactive Nonreactive [facility] Comment:Antibodies to HCV no t detected; does not exclude early acuteHCV infection. 12/13/2022 8:21 AM EDT 12/13/2022 11:08 AM EDT Gemini Chung MD LAB BLOOD ORDERABLES Final Result Performing Organization Address [facility] Co de Phone Number [facility] [address] [place] [phone] from Last 3 Months or Most Recently Relevant to Health Maintenance Insurance [employer] [facility] OPTIONS (O D-SNP) [facility] [address] [place] [address] Care Teams Emergency Man Relationship Specialty Start Date End Date Gemini Chavez MD [address] [place] [address] PCP - General Family Medicine 01/21/18 [employer] 03/28/24
--- OUTSIDE RECORDS SUMMARY | 2025-01-25 12:14 | XMS_ITS | Clinical Summary ---
Author Organization 175 [facility] Address 175 [place] [address] Phone Care Team Providers Care Oxygen Therapy Teacher Name Role Phone Gemini Chavez MD Primary Care Provide r Allergies No known active allergies Encounters Date Type Department Care Team Description 11/22/2024 4:00 PM EDT Office Visit [facility] [address] [phone] Gallito Hancock DPM Cellulitis of great toe, left (Primary Dx); Ingrowing nail; Dermatophytosis of nail; Type II diabetes mellitus with peripheral circulatory disorder (CMS/HCC V24, CMS/HCC V28); Pain in toe of right foot; Pain in toe of left foot 11/04/2024 1:45 PM EDT Office Visit [place] [address] [phone] Gallito Hancock DPM Ingrowing nail [...] PM EDT Office Visit [facility] [place] [address] [phone] Gallito Hancock, DPM 175 [facility] [address] [place] [address] Health Maintenance Due Date Last [...] ID:Not on file Type:Not on file Address: [facility] [place] ATTN:CLAIMS [address] [place] [phone] [place] [address] Member Subscriber Plan / Payer (Ef fective 2022-Present) Name:Min Daily Relation to Subscriber:Self Name:Min Daily Payer ID:[id number] Group ID:[id number] Type:Not on file Address: [address] [place] [phone] Care Teams Oxygen Therapy Teacher Relationship Specialty Start Date End Date Gemini Chavez MD NPI: [id number] [place] [id number] PCP - General 04/24/23
--- OUTSIDE RECORDS SUMMARY | 2025-01-25 12:14 | XMS_ITS | Encounter Summary ---
Author Organization [employer] Address 75 [facility] 7t [place] [address] Care Team Providers Care Accounts Administrator Name Role Phone Gemini Chavez MD Primary Care Provide r Reason for Visit * Reason Comments Med Refill Encounter Details Date Type Department Care Team (Late st Contact Info) Description 09/08/2022 Refill [facility] [address] [place], [place] [phone] Umer Sears MD [address] [place], [place] [phone] Seasonal allergies Social History Tobacco Use Types [...] Description 03/23/2025 11:15 AM EST Office Visit [facility] 230 [place], [place] [phone] Gemini Chavez MD [address] [place], [place] [phone] documented as of this encounter Visit Diagnoses Diagnosis Seasonal allergies Allergic rhinitis, cause unspecified documented in this encounter Additional Health Concerns Assessment Noted Time PHQ-9 Depression Total Score: 6 05/16/19 23 1:42 PM EST documented as of this encounter Care Teams Accounts Administrator Relationship Specialty Start Date End Date Gemini Chavez MD 230 [place] [address] PCP - General Family Medicine 01/21/18 [employer] 03/28/24 documented as of this encounter
--- OUTSIDE RECORDS SUMMARY | 2025-01-25 12:14 | XMS_ITS | Encounter Summary ---
Author Organization [facility] Address 75 [facility] 7t [place] [address] Care Team Providers Care Human Resources Technician Name Role Phone Gemini Chavez MD Primary Care Provide r Reason for Visit * Reason Comments Med Refill Encounter Details Date Type Department Care Team (Late Contact Info) Description 06/21/2022 Refill [facility] [address] [place] [phone] Marsha Menjivar MD 230 [place], [place] [phone] Chronic systolic heart failure (CMS/HCC) Social History [...] Department Care Team (Late Contact Info) Description 03/23/2025 11:15 AM EST Office Visit [facility] [address] [place] [address] Gemini Chavez MD [address] [place] [address] documented as of this encounter Visit Diagnoses Diagnosis Chronic systolic heart failure (CMS/HCC) Chronic systolic heart failure documented in this encounter Additional Health Concerns Assessment Noted Time PHQ-9 Depression Total Score: 6 05/16/19 23 1:42 PM EST documented as of this encounter Care Teams Human Resources Technician Relationship Specialty Start Date End Date Gemini Chavez MD [address] [place] [address] PCP - General Family Medicine 01/21/18 [employer] 03/28/24 documented as of this encounter
--- OUTSIDE RECORDS SUMMARY | 2025-01-25 12:14 | XMS_ITS | Encounter Summary ---
Author Organization [employer] Address 75 [facility] 7t [place] [address] Care Team Providers Care Test Center Administrator Name Role Phone Gemini Chavez MD Primary Care Provide r Reason for Visit * Reason Comments Med Refill Encounter Details Date Type Department Care Team ([facility] st Contact Info) Description 05/14/2024 Refill [facility] 230 [place], [place] [phone] Gemini Chavez MD 230 [place], [place] [phone] Class 1 obesity due to excess calories [...] Description 03/23/2025 11:15 AM EST Office Visit [facility] [address] [place] [address] Gemini Chavez MD [address] [place] [address] documented as of this encounter Visit Diagnoses Diagnosis Class 1 obesity due to excess calories with serious comorbidity and body mass index (BMI) of 33.0 to 33.9 in adult documented in this encounter Additional Health Concerns Assessment Noted Time PHQ-9 Depression Total Score: 0 09/03/19 9:55 AM EDT documented as of this encounter Care Teams Test Center Administrator Relationship Specialty Start Date End Date Gemini Chavez MD [address] [place] [address] PCP - General Family Medicine 01/21/18 [employer] 03/28/24 documented as of this encounter
--- OUTSIDE RECORDS SUMMARY | 2025-01-25 12:14 | XMS_ITS | Encounter Summary ---
Author Organization [email or web address] Address 75 [facility] 7t [place] [address] Care Team Providers Care Sports Apparel Internship Name Role Phone Gemini Chavez MD Primary Care Provide r Encounter Details Date Type Department Care Team (Late st Contact Info) Description 02/19/2023 Abstract [facility] [address] [place], [place] [phone] Gemini Chavez MD 230 [place], [place] [phone] Social History Tobacco Use Types Packs/Day Years [...] 11:15 AM EST Office Visit [facility] [address] [place] [address] Gemini Chavez MD 230 [place] [address] documented as of this encounter Visit Diagnoses Not on filedocumented in this encounter Additional Health Concerns Assessment Noted Time PHQ-9 Depression Total Score: 6 05/16/19 23 1:42 PM EST documented as of this encounter Care Teams Sports Apparel Internship Relationship Specialty Start Date End Date Gemini Chavez MD [address] [place] [address] PCP - General Family Medicine 01/21/18 [employer] 03/28/24 documented as of this encounter
--- OUTSIDE RECORDS SUMMARY | 2025-01-25 12:14 | XMS_ITS | Patient Health Record ---
Author Organization [facility] Address [address] [place] [address] Care Team Providers Care Project Production Engineer Name Role Phone Gemini Fisher M.D. Primary Care Provider Larry Angeles Jr Unavailable [phone] Katherine FORTE, Cipriano Unavailable Unavailable Allergies No Known Allergies Reason For Referral No Information Medications Medication SIG (Take, Route, Frequency, Duration) Notes Start Date End Date Status Creon [id number] UNIT TOME 2 C PSULAS POR V [...] Status W/U Status Risk Notes Problem Dysphagia (72824074) Dysphagia (R13.10) Active confirmed Problem 49841188 Dysphagia, unspecified type (R13.10) Active confirmed Problem 408678359 Abnormal barium swallow (R93.3) Active confirmed Problem 523615883 Gastroesophageal reflux disease, unspecified whether esophagitis present (K21.9) Active confirmed Problem 643069840 Presbyesophagus (K22.89) Active confirmed Plan Of Treatment Future Test Test Name Order Date UPPER GI ENDOSCOPY 03/13/2023 Insurance Providers Payer Name Payer Address Payer Phone Subscriber Number Group Number Insured Name Patient Relationship to Insured Coverage Start Date Coverage End Date [facility] [address] Attn Claims CLIFF [place] [id number] KOBE DAILY Self - patient is the insured Medical (General) History Medical History History ICD Code CE/COPD hypertension Fatty liver pulmonary nodule Elevated BMI Atrial fibrillation Hypothyroidism Gastroesophageal reflux disease/dysphagi a Surgical History Surgery Date(Month/Year) Cataract surgery Umbilical hernia repair Tonsillectomy
--- OUTSIDE RECORDS SUMMARY | 2025-01-25 12:14 | XMS_ITS | Encounter Summary ---
Author Organization [employer] Address 75 [facility] 7t [place] [address] Care Team Providers Care Director Water And Waste Services Name Role Phone Gemini Chavez MD Primary Care Provide r Encounter Details Date Type Department Care Team (Late st Contact Info) Description 07/10/2023 Orders Only [facility] 230 [place], [place] [phone] Gemini Chavez MD 230 [place], [place] [phone] Mixed stress and urge urinary incontinence (Primary [...] t he electric, gas, oil or water [employer] threatened to shut off services in your [...] Description 03/23/2025 11:15 AM EST Office Visit [facility] [address] [place] [address] Gemini Chavez MD [address] [place] [address] documented as of this encounter Visit Diagnoses Diagnosis Mixed stress and urge urinary incontinence- Primary Mixed incontinence urge and stress (male)(female) documented in this encounter Additional Health Concerns Assessment Noted Time PHQ-9 Depression Total Score: 6 05/16/19 23 1:42 PM EST documented as of this encounter Care Teams Director Water And Waste Services Relationship Specialty Start Date End Date Gemini Chavez MD [address] [place] [address] PCP - General Family Medicine 01/21/18 [employer] 03/28/24 documented as of this encounter
--- OUTSIDE RECORDS SUMMARY | 2025-01-25 12:14 | XMS_ITS | Encounter Summary ---
Author Organization [employer] Address 75 [facility] 7t [place] [address] Care Team Providers Care Fuse Coiler Name Role Phone Gemini Chavez MD Primary Care Provide r Reason for Visit * Reason Comments Med Change Request Encounter Details Date Type Department Care Team (Late Contact Info) Description 01/08/[address] [facility] [address] [place], [place] [phone] Marsha Menjivar MD [address] [place] [address] Chronic obstructive pulmonary disease, unspecified COPD type (CMS/[facility]) Social History Tobacco Use Types Packs/Day Years [...] Nebulizer signed and faxed to [facility]. documented in this encounter Plan of Treatment Upcoming Encounters Date Type Department Care Team (Late st Contact Info) Description 03/23/2025 11:15 AM EST Office Visit [facility] [address] [place] [address] Gemini Chavez MD [address] [place] [address] documented as of this encounter Visit Diagnoses Diagnosis Chronic obstructive pulmonary disease, unspecified COPD type (CMS/HCC) documented in this encounter Additional Health Concerns Assessment Noted Time PHQ-9 Depression Total Score: 6 05/16/19 23 1:42 PM EST documented as of this encounter Care Teams Fuse Coiler Relationship Specialty Start Date End Date Gemini Chavez MD [address] [place] [address] PCP - General Family Medicine 01/21/18 [employer] 03/28/24 documented as of this encounter
--- OUTSIDE RECORDS SUMMARY | 2025-01-25 12:15 | XMS_ITS | Clinical Summary ---
Author Organization [facility] Address [address] [facility] [address] [place] [phone] Phone Care Team Providers Care Local Az Truck Driver Name Role Phone Curt Richey MD Primary [...] Medical Devices Not on file Insurance [address] [place] [id number] [facility] ONE CARE MEDICARE REPLACEMENT CLIFF DONAHUE [facility] MEDICARE REPLACEMENT MEDICARE REPLACEMENT CARE MEDIC[place] [address] [place] [address] ONE CARE MEDICARE REPLACEMENT Care Teams Local Az Truck Driver Relationship Specialty Start Date End Date Curt Richey MD PCP - General Cardiology 12/21/19 Additional Source Comments The information contained in this document represents components of the legal health record. It is not the complete legal health record.[facility]
--- OUTSIDE RECORDS SUMMARY | 2025-01-25 12:15 | XMS_ITS | Encounter Summary ---
Author Organization [facility] Address [address] [facility] [address] [place] [address] Phone Care Team Providers Care Paraprofessional Education Assistant Name Role Phone Curt Richey MD Primary Care Provider + Encounter Details Date Type Department Care Team (Latest Contact Info) Description 12/24/2019 Ancillary [facility] [address] [place] [address] [place] [address] Curt Richey MD [address] [place] [address] [email or web address] Atrial fibrillation, unspecified type Social History Tobacco [...] type documented in this encounter Care Teams Paraprofessional Education Assistant Relationship Specialty Start Date End Date Curt Richey MD [email or web address] PCP - General Cardiology 12/21/19 documented as of this encounter Additional Source Comments The information contained in this document represents components of the legal health record. It is not the complete legal health record.[facility]
--- OUTSIDE RECORDS SUMMARY | 2025-01-25 12:15 | XMS_ITS | Encounter Summary ---
Author Organization [employer] Address [address] [facility] 7t [place] [address] Care Team Providers Care Blasting Gang Miner Name Role Phone Gemini Chavez MD Primary Care Provide r Reason for Visit * Reason Comments Med Refill Encounter Details Date Type Department Care Team ([facility] st Contact Info) Description 05/08/2024 Refill [facility] [address] [place], [place] [phone] Gemini Chavez MD 230 [place] [address] Class 1 obesity due to excess calories [...] Description 03/23/2025 11:15 AM EST Office Visit [facility] [address] [place] [phone] Gemini Chavez MD 230 [place] [address] documented as of this encounter Visit Diagnoses Diagnosis Class 1 obesity due to excess calories with serious comorbidity and body mass index (BMI) of 33.0 to 33.9 in adult documented in this encounter Additional Health Concerns Assessment Noted Time PHQ-9 Depression Total Score: 0 09/03/19 24 9:55 AM EDT documented as of this encounter Care Teams Blasting Gang Miner Relationship Specialty Start Date End Date Gemini Chavez MD [address] [place] [phone] PCP - General Family Medicine 01/21/18 [employer] 03/28/24 documented as of this encounter
--- OUTSIDE RECORDS SUMMARY | 2025-01-25 12:15 | XMS_ITS | Encounter Summary ---
Author Organization [employer] Address [address] [facility] 7t [place] [address] Care Team Providers Care Ict Business Analyst Name Role Phone Gemini Chavez MD Primary Care Provide r Encounter Details Date Type Department Care Team (Late st Contact Info) Description 05/10/2024 Orders Only [facility] [address] [place], [place] [phone] Gemini Chavez MD 230 [place], [place] [phone] Stage 3 chronic kidney disease, unspecified whether [...] AM EST Office Visit [facility] [address] [place] [address] Gemini Chavez MD [address] [place] [address] documented as of this encounter Visit Diagnoses [...] documented as of this encounter Care Teams Ict Business Analyst Relationship Specialty Start Date End Date Gemini Chavez MD [address] [place] [phone] PCP - General Family Medicine 01/21/18 [employer] 03/28/24 documented as of this encounter
--- OUTSIDE RECORDS SUMMARY | 2025-01-25 12:15 | XMS_ITS | Encounter Summary ---
Author Organization [employer] Address [address] [facility] 7t [place] [address] Care Team Providers Care Glove Operator Name Role Phone Gemini Chavez MD Primary Care Provide r Encounter Details Date Type Department Care Team (Late st Contact Info) Description 06/18/2024 Orders Only [facility] 230 [place], [place] [phone] Gemini Chavez MD 230 [place], [place] [phone] Social History Tobacco Use Types Packs/Day Years [...] Description 03/23/2025 11:15 AM EST Office Visit [facility] 230 [place] [address] Gemini Chavez MD [address] [place] [address] documented as of this encounter Visit Diagnoses Not on filedocumented in this encounter Additional Health Concerns Assessment Noted Time PHQ-9 Depression Total Score: 0 09/03/19 9:55 AM EDT documented as of this encounter Care Teams Glove Operator Relationship Specialty Start Date End Date Gemini Chavez MD [address] [place] [phone] PCP - General Family Medicine 01/21/18 [employer] 03/28/24 documented as of this encounter
--- OUTSIDE RECORDS SUMMARY | 2025-01-25 12:15 | XMS_ITS | Encounter Summary ---
Author Organization [facility] Address [address] [place] [address] Phone Care Team Providers Care Flight Communications Officer Name Role Phone Curt Richey MD Primary Care Provider + Encounter Details Date Type Department Care Team (Late st Contact Info) Description 12/24/2019 Ancillary Orders [facility] [address] [facility] 3rd Floor, [address] [place] [address] Curt Richey MD 50 [place] [address] Social History Tobacco Use Types Packs/Day Years [...] on filedocumented in this encounter Care Teams Flight Communications Officer Relationship Specialty Start Date End Date Curt Richey MD PCP - General Cardiology 12/21/19 documented as of this encounter Additional Source Comments The information contained in this document represents components of the legal health record. It is not the complete legal health record.[facility]
--- OUTSIDE RECORDS SUMMARY | 2025-01-25 12:15 | XMS_ITS | Encounter Summary ---
Author Organization [employer] Address [address] [facility] 7t [place] [address] Care Team Providers Care Guard Chief Name Role Phone Gemini Chavez MD Primary Care Provide r Reason for Visit * Reason Comments Med Refill Encounter Details Date Type Department Care Team ([facility] st Contact Info) Description 10/16/2024 Refill [facility] [address] [place], [place] [phone] Gemini Chavez MD [address] [place] [address] Prediabetes Social History Tobacco Use Types Packs/Day [...] Description 03/23/2025 11:15 AM EST Office Visit [facility] [address] [place] [address] Gemini Chavez MD [address] [place] [phone] documented as of this encounter Visit Diagnoses Diagnosis Prediabetes Other abnormal glucose documented in this encounter Additional Health Concerns Assessment Noted Time PHQ-9 Depression Total Score: 0 09/03/19 24 9:55 AM EDT documented as of this encounter Care Teams Guard Chief Relationship Specialty Start Date End Date Gemini Chavez MD [address] [place] [phone] PCP - General Family Medicine 01/21/18 [employer] 03/28/24 documented as of this encounter
--- OUTSIDE RECORDS SUMMARY | 2025-01-25 12:15 | XMS_ITS | Encounter Summary ---
Author Organization [employer] Address [address] [facility] 7t [place] [address] Care Team Providers Care Conference Manager Name Role Phone Gemini Chavez MD [...] Description 03/23/2025 11:15 AM EST Office Visit [facility] 230 [place] [address] Gemini Chavez MD [address] [place] [address] documented as of this encounter Procedures Procedure Name Priority Date/Time Associated Diagnosis Comments BASIC METABOLIC PANEL Routine 01/20/2025 3:40 PM EDT documented in this encounter Results * (ABNORMAL) Basic Metabolic Panel (01/20/2025 3:40 PM EDT) Sodium 144 135 - 145 mmol/L [facility] Potassium 4.1 3.3 - 5.1 mmol/L [facility] Chloride 108 96 - 108 mmol/L [facility] Carbon Dioxide 25 22 - 29 mmol/L [facility] Anion Gap 15 12 - 20 [facility] Urea Nitrogen (BUN) 26(H) 9 - 16 mg/dL [facility] Creatinine, Serum 1.43(H) 0.5 - 1.4 mg/dL [facility] Estimated Glomerular Filt Rate 49 [facility] Comment:Chronic Kidney Disea se: Estimated GFR < 60 mL/min/1.82d7Qoxshr Kidney Disease: Estimated GFR < 15 mL/min/1.73m2 Glucose 73 60 - 115 mg/dL [facility] Calcium 9.5 8.4 - 10.2 mg/dL [facility] 01/20/2025 3:40 PM EDT 01/20/2025 3:40 PM EDT us Generic External Data Provider LAB BLOOD ORDERAB LES Final Result [facility] [address] [place] [address] [phone] documented in this encounter Visit Diagnoses Not on filedocumented in this encounter Additional Health Concerns Assessment Noted Time PHQ-9 Depression Total Score: 0 11/30/19 25 10:53 AM EDT documented as of this encounter Care Teams Conference Manager Relationship Specialty Start Date End Date Gemini Chavez MD [address] [place] [address] PCP - General Family Medicine 01/21/18 [employer] 03/28/24 documented as of this encounter
--- OUTSIDE RECORDS SUMMARY | 2025-01-25 12:15 | XMS_ITS | Encounter Summary ---
Author Organization [employer] Address [address] [facility] 7t [place] [address] Care Team Providers Care Minister Name Role Phone Gemini Chavez MD Primary Care Provide r Reason for Visit * Reason Comments Med Refill Encounter Details Date Type Department Care Team (Late st Contact Info) Description 10/20/2023 Refill [facility] [address] [place], [place] [phone] Gemini Chavez MD [address] [facility] [place] [address] Seasonal allergies Social History Tobacco Use Types [...] 03/23/2025 11:15 AM EST Office Visit [facility] [address] [place] [phone] Gemini Chavez MD [address] [place] [phone] documented as of this encounter Visit Diagnoses Diagnosis Seasonal allergies Allergic rhinitis, cause unspecified documented in this encounter Additional Health Concerns Assessment Noted Time PHQ-9 Depression Total Score: 0 09/03/19 9:55 AM EDT documented as of this encounter Care Teams Minister Relationship Specialty Start Date End Date Gemini Chavez MD [address] [place] [phone] PCP - General Family Medicine 01/21/18 [email or web address] 03/28/24 documented as of this encounter
== END 2025-01-25 10:10 | disposition home or self-care (01) ==
LOC: HO.HKA 09:36
PROVIDERS: PCP Internal Medicine; Visit Provider Internal Medicine Hypertension Specialist
DX: N18.9 Chronic kidney disease, unspecified (principal)
CPT/HCPCS: 99214

== ENCOUNTER → 2025-01-25 09:36 | Outpatient (BNVA) | payer OTHER, SELFPAY | PROVIDERS: PCP Internal Medicine; Visit Provider Internal Medicine Hypertension Specialist | DX: I95.0 Idiopathic hypotension (principal); N18.9 Chronic kidney disease, unspecified | CPT/HCPCS: 99212 ==

== ENCOUNTER 2025-02-02 08:24 | Day surgery (SDC) | payer OTHER, SELFPAY ==
--- OUTSIDE RECORDS SUMMARY | 2025-01-21 16:41 | XMS_ITS | Patient Health Record ---
Author Organization [facility] Address [address] [place] [address] Care Team Providers Care Mortgage Lender Name Role Phone Gemini Fisher M.D. Primary Care Provider Larry Angeles Jr Unavailable Katherine FORTE, Cipriano Unavailable Unavailable Allergies No Known Allergies Reason For Referral No Information Medications Medication SIG (Take, Route, Frequency, Duration) Notes Start Date End Date Status Creon [id number] UNIT TOME 2 C PSULAS POR V [...] Status W/U Status Risk Notes Problem Dysphagia (52398385) Dysphagia (R13.10) Active confirmed Problem 30641410 Dysphagia, unspecified type (R13.10) Active confirmed Problem 330076549 Abnormal barium swallow (R93.3) Active confirmed Problem [id number] Gastroesophageal reflux disease, unspecified whether esophagitis present (K21.9) Active confirmed Problem 617854660 Presbyesophagus (K22.89) Active confirmed Plan Of Treatment Future Test Test Name Order Date UPPER GI ENDOSCOPY 03/13/2023 Insurance Providers Payer Name Payer Address Payer Phone Subscriber Number Group Number Insured Name Patient Relationship to Insured Coverage Start Date Coverage End Date [facility] [address] Attn Claims CLIFF Perez [id number] KOBE DAILY Self - patient is the insured Medical (General) History Medical History History ICD Code CE/COPD hypertension Fatty liver pulmonary nodule Elevated BMI Atrial fibrillation Hypothyroidism Gastroesophageal reflux disease/dysphagi a Surgical History Surgery Date(Month/Year) Cataract surgery Umbilical hernia repair Tonsillectomy
--- OUTSIDE RECORDS SUMMARY | 2025-01-21 16:41 | XMS_ITS | Clinical Summary ---
Author Organization [facility] Address [address] [facility] [address] [place] [address] Phone Care Team Providers Care Electric Power Line Examiner Name Role Phone Curt Richey MD Primary [...] Medical Devices Not on file Insurance [address] [place] [id number] [facility] ONE CARE MEDICARE REPLACEMENT [place] [facility] MEDICARE REPLACEMENT MEDICARE REPLACEMENT * Guarantor: Min Arauz Account Type Relation to Patient Date of Phone Billing Address Personal/Family Self [address] [place] [address] [address] [place] [address] [place] [address] ONE CARE MEDICARE REPLACEMENT Care Teams Electric Power Line Examiner Relationship Specialty Start Date End Date Curt Richey MD PCP - General Cardiology 12/21/19 Additional Source Comments The information contained in this document represents components of the legal health record. It is not the complete legal health record.[facility]
--- OUTSIDE RECORDS SUMMARY | 2025-01-21 16:41 | XMS_ITS | Encounter Summary ---
Author Organization [facility] Address [address] [facility] [address] [place] [address] Phone Care Team Providers Care Employment Security Officer Name Role Phone Curt Richey MD Primary Care Provider + Encounter Details Date Type Department Care Team (Latest Contact Info) Description 12/24/2019 Ancillary [facility] [address] [place] [address] [place] [address] Curt Richey MD [address] [place] [address] [email or web address] Atrial fibrillation, unspecified type Social History Tobacco [...] type documented in this encounter Care Teams Employment Security Officer Relationship Specialty Start Date End Date Curt Richey MD [email or web address] PCP - General Cardiology 12/21/19 documented as of this encounter Additional Source Comments The information contained in this document represents components of the legal health record. It is not the complete legal health record.[facility]
--- OUTSIDE RECORDS SUMMARY | 2025-01-21 16:41 | XMS_ITS | Clinical Summary ---
Author Organization [address] [facility] Address 175 [place] [address] Phone Care Team Providers Care Melter Supervisor Open Hearth Furnace Name Role Phone Gemini Chavez MD Primary Care Provide r Allergies No known active allergies Encounters Date Type Department Care Team Description 11/22/2024 4:00 PM EDT Office Visit [facility] [address] [phone] Gallito Hancock DPM Cellulitis of great toe, left (Primary Dx); Ingrowing nail; Dermatophytosis of nail; Type II diabetes mellitus with peripheral circulatory disorder (CMS/HCC V24, CMS/HCC V28); Pain in toe of right foot; Pain in toe of left foot 11/04/2024 1:45 PM EDT Office Visit [place] [address] [phone] Gallito Hancock DPM Ingrowing nail [...] PM EDT Office Visit [facility] [place] [address] [phone] Gallito Hancock, DPM 175 [facility] 250 [place] [address] Health Maintenance Due Date Last [...] ID:Not on file Type:Not on file Address: [facility] GLEN DANIEL ATTN:CLAIMS [address] [place] [address] [place] [address] Member Subscriber Plan / Payer (Ef fective 2022-Present) Name:Min Daily Relation to Subscriber:Self Name:Min Daily Payer ID:[id number] Group ID:[id number] Type:Not on file Address: [address] [place] [id number] Care Teams Melter Supervisor Open Hearth Furnace Relationship Specialty Start Date End Date Gemini Chavez MD NPI: [id number] [place] [id number] PCP - General 04/24/23
--- OUTSIDE RECORDS SUMMARY | 2025-01-21 16:41 | XMS_ITS | Encounter Summary ---
Author Organization [facility] Address [address] [place] [address] Phone Care Team Providers Care Pattern Clerk Name Role Phone Curt Richey MD Primary Care Provider + Encounter Details Date Type Department Care Team (Late st Contact Info) Description 12/24/2019 Ancillary Orders [facility] [address] [facility] 3rd Floor, [address] [place] [address] Curt Richey MD 50 [place] [address] Social History Tobacco Use Types Packs/Day Years [...] on filedocumented in this encounter Care Teams Pattern Clerk Relationship Specialty Start Date End Date Curt Richey MD PCP - General Cardiology 12/21/19 documented as of this encounter Additional Source Comments The information contained in this document represents components of the legal health record. It is not the complete legal health record.[facility]
--- NOTE | 2025-01-31 13:24 | HO.ANESPROP2 ---
Documented by User: Tavia Palmer NP 02/01/25 10:53 HPI - Anesthesia Eval Consult details Narrative: 69 yr old male for colonoscopy Saw cardiology, Dr. Ely 01/26/25 for preop clearance: note states pt is moderate risk for moderate risk procedure. He reported SOB at the visit, a subsequent visit was scheduled. He denied chest pain. Appears cardiology is/?had been prescribing GLP-1 for weight loss CE: noncompliant with CPAP Asthma/COPD: stable per 01/20/25 [facility] [place] without recent albuterol use Atrial fibrillation: on eliquis Anesthesia Pre-Procedure Meds Is the patient on any of the following meds?: GLP1/DPP4 PMFSH Active Problems Active Problems: All Active Problems (Updated 01/18/25 @ 10:21 by Curt Marroquin MD) Afib (Acute) Arthritis of left shoulder (Acute) Left shoulder tendonitis (Acute) CKD (chronic kidney disease) (Acute) Constipation (Acute) Asthma exacerbation (Acute) Acute exacerbation of chronic obstructive pulmonary disease (Acute) Pancreatic insufficiency (Acute) Abdominal bloating (Acute) Hepatic steatosis (Acute) Liver lesion (Acute) GERD (gastroesophageal reflux disease) (Acute) Hx of colonoscopy (Acute) Throat disorder (Acute) Bronchitis (Acute) Allergic rhinitis (Acute) COPD (chronic obstructive pulmonary disease) (Acute) CE (obstructive sleep apnea) (Acute) Obesity (BMI 30-39.9) (Acute) Past Medical History Medical History Hoarseness Dysphagia Colon cancer screening Throat disorder Bronchitis CHF (congestive heart failure) Afib Allergic rhinitis COPD (chronic obstructive pulmonary disease) CE (obstructive sleep apnea) Obesity (BMI 30-39.9) Hypothyroid Anxiety Palpitation HTN (hypertension) Family History Family History Family/Other No problems noted. Family history of problems with anesthesia: No Surgical History Surgical History Hx of umbilical hernia repair History of surgery on arm Hx of eye surgery Hx of colonoscopy Hx of knee surgery Hx of tonsillectomy History of Problems with Anesthesia: No Social History Social History Household Members: None Housing: Apartment Do you presently have visiting nurse or other home services: Yes Alcohol intake: former Patient Tobacco Use Status: Former Tobacco user Use of substances other than those prescribed or required for medical reasons: No Are you DNR?: No Advance Directives: No Advance Directives Information Provided: Yes Advance Directives Date on File: 08/11/23 service: No Meds Allergies Allergy/AdvReac Type Severity Reaction Status Date / Time Iodinated Contrast Media Allergy Unknown HIVES Verified 02/02/25 08:58 (CONTRAST, IV) kiwi (KIWI) Allergy Unknown THROAT Verified 02/02/25 08:58 SWELLING Home Medications ?Medication ?Instructions ?Recorded ?Confirmed ?Last Taken ?Type apixaban 5 mg tablet 5 mg PO BID 05/24/20 02/02/25 01/30/25 History cholecalciferol (vitamin D3) 50 50 mcg PO DAILY 05/24/20 02/02/25 08/08/23 History mcg (2,000 unit) tablet clonazepam 1 mg tablet 1 mg PO BID PRN Anxiety 05/24/20 02/02/25 08/07/23 History hydroxyzine pamoate 25 mg capsule 25 mg PO BID PRN Anxiety 05/24/20 02/02/25 Unknown History levothyroxine 100 mcg tablet 100 mcg PO DAILY 05/24/20 02/02/25 08/08/23 History lisinopril 40 mg tablet 40 mg PO DAILY 05/24/20 02/02/25 08/08/23 History metoprolol succinate 200 mg 200 mg PO DAILY 05/24/20 02/02/25 08/08/23 History tablet,extended release 24 hr rosuvastatin 40 mg tablet 40 mg PO DAILY 05/24/20 02/02/25 08/08/23 History zolpidem 10 mg tablet 10 mg PO BEDTIME PRN Insomnia 05/24/20 02/02/25 Unknown History albuterol sulfate 2.5 mg/3 mL 3 mg inhalation QID PRN Shortness 03/20/21 02/02/25 Unknown History (0.083 %) solution for nebulization Of Breath Or Wheezing diclofenac sodium 1 % topical gel 2 g topical QID 08/08/23 02/02/25 08/08/23 History vitamin E (dl, acetate) 45 mg (100 45 mg PO DAILY 08/08/23 02/02/25 08/08/23 History unit) capsule furosemide 40 mg tablet 40 mg PO Q2D 05/25/24 02/02/25 Unknown History meclizine 25 mg tablet 25 mg PO DAILY 05/25/24 02/02/25 Unknown History metformin 500 mg tablet 500 mg PO BID 05/25/24 02/02/25 Unknown History hydrochlorothiazide 25 mg tablet 25 mg PO DAILY 09/15/24 02/02/25 Unknown History amlodipine 10 mg tablet 10 mg PO DAILY 01/20/25 02/02/25 Unknown History Exam Pertinent Lab Results Pertinent Lab Results: Laboratory Tests 10/01/24 01/20/25 18:56 15:40 WBC 11.1 H RBC 4.19 L Hgb 13.2 L Hct 37.4 L Plt Count 203 Sodium 144 Potassium 4.1 BUN 26 H Creatinine 1.43 H Narrative Narrative: EKG 09/2024 Vent. Rate : 83 BPM Atrial Rate : * BPM P-R Int : * ms QRS Dur : 86 ms QT Int : 354 ms P-R-T Axes : * 35 23 degrees QTcB Int : 415 ms Atrial fibrillation Abnormal ECG When compared with ECG of 26-Aug-2024 05:04, Nonspecific T wave abnormality no longer evident in Lateral leads Assessment and Plan Final Anesthetic Review Family History of Problems with Anesthesia: No History of Problems with Anesthesia: No Documented by User: Carolina Jhaveri MD 02/02/25 09:10 [facility] Past Medical History Medical History Hoarseness Dysphagia Colon cancer screening Throat disorder Bronchitis CHF (congestive heart failure) Afib Allergic rhinitis COPD (chronic obstructive pulmonary disease) CE (obstructive sleep apnea) Obesity (BMI 30-39.9) Hypothyroid Anxiety Palpitation HTN (hypertension) Family History Family History Family/Other No problems noted. Surgical History Surgical History Hx of umbilical hernia repair History of surgery on arm Hx of eye surgery Hx of colonoscopy Hx of knee surgery Hx of tonsillectomy Social History Social History Household Members: None Housing: Apartment Do you presently have visiting nurse or other home services: Yes Alcohol intake: former Patient Tobacco Use Status: Former Tobacco user Use of substances other than those prescribed or required for medical reasons: No Are you DNR?: No Advance Directives: No Advance Directives Information Provided: Yes Advance Directives Date on File: 08/11/23 service: No Meds Allergies Allergy/AdvReac Type Severity Reaction Status Date / Time Iodinated Contrast Media Allergy Unknown HIVES Verified 02/02/25 08:58 (CONTRAST, IV) kiwi (KIWI) Allergy Unknown THROAT Verified 02/02/25 08:58 SWELLING Home Medications ?Medication ?Instructions ?Recorded ?Confirmed ?Last Taken ?Type apixaban 5 mg tablet 5 mg PO BID 05/24/20 02/02/25 01/30/25 History cholecalciferol (vitamin D3) 50 50 mcg PO DAILY 05/24/20 02/02/25 08/08/23 History mcg (2,000 unit) tablet clonazepam 1 mg tablet 1 mg PO BID PRN Anxiety 05/24/20 02/02/25 08/07/23 History hydroxyzine pamoate 25 mg capsule 25 mg PO BID PRN Anxiety 05/24/20 02/02/25 Unknown History levothyroxine 100 mcg tablet 100 mcg PO DAILY 05/24/20 02/02/25 08/08/23 History lisinopril 40 mg tablet 40 mg PO DAILY 05/24/20 02/02/25 08/08/23 History metoprolol succinate 200 mg 200 mg PO DAILY 05/24/20 02/02/25 08/08/23 History tablet,extended release 24 hr rosuvastatin 40 mg tablet 40 mg PO DAILY 05/24/20 02/02/25 08/08/23 History zolpidem 10 mg tablet 10 mg PO BEDTIME PRN Insomnia 05/24/20 02/02/25 Unknown History albuterol sulfate 2.5 mg/3 mL 3 mg inhalation QID PRN Shortness 03/20/21 02/02/25 Unknown History (0.083 %) solution for nebulization Of Breath Or Wheezing diclofenac sodium 1 % topical gel 2 g topical QID 08/08/23 02/02/25 08/08/23 History vitamin E (dl, acetate) 45 mg (100 45 mg PO DAILY 08/08/23 02/02/25 08/08/23 History unit) capsule furosemide 40 mg tablet 40 mg PO Q2D 05/25/24 02/02/25 Unknown History meclizine 25 mg tablet 25 mg PO DAILY 05/25/24 02/02/25 Unknown History metformin 500 mg tablet 500 mg PO BID 05/25/24 02/02/25 Unknown History hydrochlorothiazide 25 mg tablet 25 mg PO DAILY 09/15/24 02/02/25 Unknown History amlodipine 10 mg tablet 10 mg PO DAILY 01/20/25 02/02/25 Unknown History Exam Airway Mallampati Class: II (missing multiple teeth, no teeth on top) TM Dist: >3cm Neck ROM: Full Heart: ireg Lungs: cta Assessment and Plan Assessment Anesthesia Assessment: Anesthesia Plan Discussed and Chart Reviewed Final Anesthetic Review NPO: Yes ASA Class: III Final Preanesthetic Review: No Changes in Pt Med Stat, Meds/Allgs Chart Reviewed and Consent Obtained/Reviewed Patient Risk: Low Procedure Risk: Low Anesthetic Plan Anesthetic Plan: MAC: Disposition: Standard PACU
[2025-02-01 07:33] VITALS: BMI 34.7
[2025-02-02 08:54] VITALS: BMI 32.8
[2025-02-02 09:20] VITALS: BP 155/98; PULSE 113; RESP 16; TEMP 36.1; O2SAT 97
--- NOTE | 2025-02-02 09:20 | P.HPSUR_ITS ---
Pre-Procedural Eval Section A - 24 Hr Update-Section A only Date of Service: 02/02/25 Section B - Complete if H&P > 30 days Chief Complaint: Personal history of colon polyps, unspecified Relevant Family History (Specify if Yes): No Relevant Social History: None Present Medications: see Short Stay Collaborative assessment Medical History: Significant History (Hoarseness Dysphagia Colon cancer screening Throat disorder Bronchitis CHF (congestive heart failure) Afib Allergic rhinitis COPD (chronic obstructive pulmonary disease) CE (obstructive sleep apnea) Obesity (BMI 30-39.9) Hypothyroid Anxiety Palpitation HTN (hypertension)) History of Previous Operations: Relevant previous surgery/procedure and date(s) (Hx of umbilical hernia repair History of surgery on arm Hx of eye surgery Hx of colonoscopy Hx of knee surgery Hx of tonsillectomy) Allergies: Allergies Allergy/AdvReac Type Severity Reaction Status Date / Time Iodinated Contrast Media Allergy Unknown HIVES Verified 02/02/25 08:58 (CONTRAST, IV) kiwi (KIWI) Allergy Unknown THROAT Verified 02/02/25 08:58 SWELLING Review of Systems Sugical H&P ROS: Negative: Constitution, Cardiovascular, Respiratory, Neurological, Psychiatric, Hem-Onc, Allergic/Immunologic, Gastrointestinal, G enitourinary, Musculoskeletal, Integumentary, Endocrine and Eyes/Ears/Nose/Throat Exam Surgical H&P Exam: Normal: HEENT, Normal: Heart, Normal: Lungs, Normal: Extremities, Normal: Abdomen, Normal: Skin and Normal: Neurological Plan Diagnosis/Plan: Unchanged I have reviewed the history and physical and performed a pertinent physical examination on my patient. No changes have occurred unless specified. Time Spent With Patient Time: Total time managing care of this patient today ____ minutes.
[2025-02-02] MEDS: Lactated Ringers 1,000 ML 100 ML IVCONT (09:22)
[2025-02-02 09:28] LABS: Glucose, Whole Blood 125 mg/dL (60-115)
--- NOTE | 2025-02-02 10:15 | HO.OPN-COLON ---
Colonoscopy Operative Note Operative Note Date of Service: 02/02/25 Narrative: Operative Information Procedure Description: Colonoscopy Indication: screening Anesthesia: MAC COLONOSCOPY Instrument: Olympus variable stiffness ADULT scope 190L Colonoscopy Monitoring: Vital signs and clinical assessment, continuous EKG monitoring, Pulse oximetry, Carbon Dioxide monitoring and blood pressure monitoring were done throughout the procedure. Colon withdrawal time was 7 minutes. Procedure: The patient was placed in the left lateral decubitis position and pre-procedure medications were administered. After a digital rectal examination of the ano-rectum, the video colonoscope was inserted into the rectum and advanced through the colon to the cecum/TI. The colonoscope was slowly withdrawn in a retrograde panoramic fashion and the colon mucosa was carefully examined including a retroflexed view of the rectum. Findings and interventions are described below. Procedure Difficulty: easy Findings: Melanosis coli noted Terminal Ileum-normal Cecum:normal Ascending Colon: normal Transverse Colon -normal Descending Colon:normal Sigmoid Colon: moderate diverticulosis Rectum: Retroflexion with small internal hemorrhoids seen, grade I Anorectum - normal Intervention: none Colon preparation: [place] Bowel Preparation Scale Right colon; 2 Transverse colon: 2 Left colon; 2 (0 = Unprepared colon segment with mucosa not seen due to solid stool that cannot be cleared. 1 = Portion of mucosa of the colon segment seen, but other areas of the colon segment not well seen due to staining, residual stool and/or opaque liquid. 2 = Minor amount of residual staining, small fragments of stool and/or opaque liquid, but mucosa of colon segment seen well. 3 = Entire mucosa of colon segment seen well with no residual staining, small fragments of stool or opaque liquid) Impression and Post Procedure Diagnosis: diverticulosis melanosis coli internal hemorrhoids Plan: High fiber diet leaflet Avoid straining at stool, epsom salts and sitz bath, anusol supps or cream Repeat Colonoscopy in 10 years or earlier if clinically indicated Above findings were reviewed with the patient and relevant handouts were provided if indicated.
[2025-02-02 10:21] VITALS: BP 112/83; PULSE 108; RESP 16; TEMP 36.3; O2SAT 97
[2025-02-02 10:36] VITALS: BP 133/94; PULSE 87; RESP 20; TEMP 36.1; O2SAT 97
== END 2025-02-02 11:17 | disposition home or self-care (01) ==
PROVIDERS: PCP Internal Medicine; Visit Provider Internal Medicine Gastroenterology
PROC: 0DJD8ZZ Inspection of Lower Intestinal Tract, Via Natural or Artificial Opening Endoscopic (ICD-10-PCS; CPT 45378; principal; 2025-02-02 11:20)
DX: Z12.11 Encounter for screening for malignant neoplasm of colon (principal); Z86.0100 Personal history of colon polyps, unspecified; K63.89 Other specified diseases of intestine; K57.30 Diverticulosis of large intestine without perforation or abscess without bleeding; K64.0 First degree hemorrhoids; K58.9 Irritable bowel syndrome, unspecified; K59.00 Constipation, unspecified; K21.9 Gastro-esophageal reflux disease without esophagitis; K86.89 Other specified diseases of pancreas; R14.0 Abdominal distension (gaseous); I48.91 Unspecified atrial fibrillation; I11.0 Hypertensive heart disease with heart failure; I50.9 Heart failure, unspecified; J44.9 Chronic obstructive pulmonary disease, unspecified; E03.9 Hypothyroidism, unspecified; Z79.01 Long term (current) use of anticoagulants; Z79.899 Other long term (current) drug therapy; Z91.041 Radiographic dye allergy status; Z98.890 Other specified postprocedural states; Z87.891 Personal history of nicotine dependence
CPT/HCPCS: G0121; 82947; J0616; J2704

== ENCOUNTER → 2025-02-02 08:24 | Outpatient (BNV) | payer OTHER, SELFPAY | PROVIDERS: PCP Internal Medicine; Visit Provider Internal Medicine Gastroenterology | DX: Z12.11 Encounter for screening for malignant neoplasm of colon (principal); K63.89 Other specified diseases of intestine; K57.30 Diverticulosis of large intestine without perforation or abscess without bleeding; K64.0 First degree hemorrhoids | CPT/HCPCS: G0121 ==

== ENCOUNTER 2025-02-15 07:57 | Emergency (ER) | payer OTHER, SELFPAY ==
[2025-02-15] VITALS (8 sets, daily range): BP systolic 107–145; BP diastolic 46–95; PULSE 71–112; RESP 18–25; TEMP 36.4; O2SAT 96–100; BMI 34.9
--- NOTE | ~2025-02-15 | XR_ITS ---
EXAMINATION: XR CHEST 2 VIEWS HISTORY: sob, cough COMPARISON: Comparison is made with the prior examination dated 09/28/2024. FINDINGS: PA and lateral views of the chest are submitted. The lungs are expanded and clear. There is no pleural effusion, pneumothorax, or pulmonary vascular congestion. The heart is normal in size. There is calcification of the aorta. The bones are intact. XR/XR chest 2V IMPRESSION: No acute cardiopulmonary abnormality. Electronically signed by: Ras Zhao MD 02/15/2025 09:41 AM EDT
--- NOTE | 2025-02-15 08:16 | ECG_ITS ---
Test Reason : sob Blood Pressure : */* mmHG Vent. Rate : 93 BPM Atrial Rate : * BPM P-R Int : * ms QRS Dur : 82 ms QT Int : 350 ms P-R-T Axes : * 17 25 degrees QTcB Int : 435 ms Atrial fibrillation Abnormal ECG When compared with ECG of 01-Oct-2024 19:11, No significant change was found Referred By: Generic ED Physician Electronically Signed By: ANDIE DAVISON MD
--- NOTE | 2025-02-15 08:36 | PC.NURSE ---
69 M presents to ED with SOB since 3am, cough, wheezes. Hx asthma. A+OX4, calm, cooperative. Pt c/o L shoulder pain 5/10, chronic. No CP reported. RR even but a little shallow, dry cough. Pt is ambulatory. Pt also c/o h/a and some dizziness.
--- NOTE | 2025-02-15 08:40 | ECG_ITS ---
Test Reason : RVR Blood Pressure : */* mmHG Vent. Rate : 124 BPM Atrial Rate : * BPM P-R Int : * ms QRS Dur : 84 ms QT Int : 338 ms P-R-T Axes : * -1 9 degrees QTcB Int : 485 ms Atrial fibrillation with rapid ventricular response Nonspecific ST abnormality Abnormal ECG When compared with ECG of 15-Feb-2025 08:19, No significant change was found Referred By: Tavia Garcia Electronically Signed By: ANDIE DAVISON MD
[2025-02-15] MEDS: Albuterol Sulfate 5 MG, Albuterol/Iprat 2.5/0.5MG 3 ML 3 ML INHALE (09:02)
--- NOTE | 2025-02-15 09:07 | ED.SOB ---
HPI - SOB/Dyspnea General Chief Complaint: Dyspnea Stated Complaint: DIZZY,SOB 100% RA PER EMS Time Seen by Provider: 02/15/25 08:05 Source: patient, EMS, RN notes reviewed and old records reviewed Mode of arrival: EMS History of Present Illness ED Provider: Tavia Garcia PA-C HPI Narrative: 69-year-old Macanese-speaking male with a past medical history of diabetes, CHF, AFib on Eliquis, COPD, CE, hypothyroid, HTN, presenting to the ED via EMS complaining of dry cough, headache, ear pain, sore throat, SOB since 02:00. Also reports room spinning dizziness worse with position changes, resolved with rest. Reports history of vertigo, admits to this feels typical for him. Denies fever, chills, chest pain, recent travel, sick contacts, difficulty or inability to swallow, pedal edema. Patient received 125 mg Solu-Medrol and albuterol neb [employer]. Related Data Home Medications ?Medication ?Instructions ?Recorded ?Confirmed apixaban 5 mg tablet 5 mg PO BID 05/24/20 02/02/25 cholecalciferol (vitamin D3) 50 50 mcg PO DAILY 05/24/20 02/02/25 mcg (2,000 unit) tablet clonazepam 1 mg tablet 1 mg PO BID PRN Anxiety 05/24/20 02/02/25 hydroxyzine pamoate 25 mg capsule 25 mg PO BID PRN Anxiety 05/24/20 02/02/25 levothyroxine 100 mcg tablet 100 mcg PO DAILY 05/24/20 02/02/25 lisinopril 40 mg tablet 40 mg PO DAILY 05/24/20 02/02/25 metoprolol succinate 200 mg 200 mg PO DAILY 05/24/20 02/02/25 tablet,extended release 24 hr rosuvastatin 40 mg tablet 40 mg PO DAILY 05/24/20 02/02/25 zolpidem 10 mg tablet 10 mg PO BEDTIME PRN Insomnia 05/24/20 02/02/25 albuterol sulfate 2.5 mg/3 mL 3 mg inhalation QID PRN Shortness 03/20/21 02/02/25 (0.083 %) solution for nebulization Of Breath Or Wheezing diclofenac sodium 1 % topical gel 2 g topical QID 08/08/23 02/02/25 vitamin E (dl, acetate) 45 mg (100 45 mg PO DAILY 08/08/23 02/02/25 unit) capsule furosemide 40 mg tablet 40 mg PO Q2D 05/25/24 02/02/25 meclizine 25 mg tablet 25 mg PO DAILY 05/25/24 02/02/25 metformin 500 mg tablet 500 mg PO BID 05/25/24 02/02/25 hydrochlorothiazide 25 mg tablet 25 mg PO DAILY 09/15/24 02/02/25 amlodipine 10 mg tablet 10 mg PO DAILY 01/20/25 02/02/25 Previous Rx's ?Medication ?Instructions ?Recorded epinephrine 0.3 mg/0.3 mL 0.3 mg (0.3 mL) IM Q4H PRN 04/07/23 injection, auto-injector (EpiPen anaphylaxis #2 ea 2-Blaise) albuterol sulfate 90 mcg/actuation 2 puff PO Q6H PRN shortness of 12/23/23 aerosol inhaler (Ventolin HFA) breath or wheezing #18 ea [id number] 2 cap PO BID #360 caps 09/17/24 36,000-114,000-180,000 unit capsule,delay rel (Creon) pantoprazole 40 mg tablet,delayed 40 mg PO DAILY #30 tabs 09/17/24 release sennosides 8.6 mg tablet (Senna 17.2 mg (2 x 8.6 mg) PO BEDTIME 09/17/24 Laxative) #60 tabs simethicone 180 mg capsule 180 mg PO QID 30 days #120 caps 09/17/24 tramadol 50 mg tablet 50 mg PO BEDTIME 7 days #7 tabs 10/01/24 fluticasone 250 mcg-salmeterol 50 1 inh inhalation BID #180 ea 12/06/24 mcg/dose blistr powdr for inhalation (Wixela Inhub) oxycodone 5 mg tablet 5 mg PO Q8H PRN pain #7 tabs 12/11/24 L.acidophil,salivari-Bifido 1 cap PO DAILY #30 caps 02/15/25 bifidum-Strep thermoph 175 mg capsule (Acidophilus Probiotic Blend) prednisone 20 mg tablet 40 mg (2 x 20 mg) PO DAILY 5 days 02/15/25 #10 tabs Allergies Allergy/AdvReac Type Severity Reaction Status Date / Time Iodinated Contrast Media Allergy Unknown HIVES Verified 02/15/25 08:21 (CONTRAST, IV) kiwi (KIWI) Allergy Unknown THROAT Verified 02/15/25 08:21 SWELLING Review of Systems Review of Systems: Yes all other systems are reviewed and are negative Constitutional: Constitutional: Reports as per HPI Neurologic: Denies Abnormal speech present [facility] Past Medical History Attestation statement: The following information was validated with the patient. Source: old records reviewed Medical History Diabetes Hoarseness Dysphagia Colon cancer screening Throat disorder Bronchitis CHF (congestive heart failure) Afib Allergic rhinitis COPD (chronic obstructive pulmonary disease) CE (obstructive sleep apnea) Obesity (BMI 30-39.9) Hypothyroid Anxiety Palpitation HTN (hypertension) Surgical History Hx of umbilical hernia repair History of surgery on arm Hx of eye surgery Hx of colonoscopy Hx of knee surgery Hx of tonsillectomy Family History Family History Family/Other No problems noted. Social History Social History Household Members: None Housing: Apartment Do you presently have visiting nurse or other home services: Yes Alcohol intake: former Patient Tobacco Use Status: Former Tobacco user Smoked in Last 30 Days: No Use of substances other than those prescribed or required for medical reasons: No Advance Directives: Yes Advance Directives on File: Yes Advance Directives Date on File: 08/11/23 service: No Physical Exam Vital Signs: Vital Signs: Last Vital Signs Temp 97.5 F 02/15/25 14:03 Pulse 96 02/15/25 14:03 Resp 20 02/15/25 14:03 BP 145/95 H 02/15/25 14:03 Pulse Ox 98 02/15/25 14:03 O2 Del Method Room Air 02/15/25 14:03 BMI result Body Mass Index 34.9 Const: General: cooperative, healthy appearing and no acute distress Orientation/consciousness: patient oriented x3 Limitations: no limitations HEENT: Head: Yes normal to inspection and Yes atraumatic Ears: hearing grossly normal bilaterally, external ears normal, TM's normal bilaterally and mastoids normal General nose exam: Normal external nose present Face and sinus: Yes normal facial exam Mouth: Normal oral and palatal mucosa present and no muffled voice Throat: Yes posterior oropharynx normal, Yes tonsils normal, Yes uvula midline, No peritonsillar mass, No uvula laterally displaced and No uvular edema Eyes: General: appearance normal, both eyes and all related structures EOM: EOMs intact bilaterally Neck: Neck: Yes normal visual inspection and Yes no meningeal signs Resp: Effort & Inspection: Actively coughing Quality: dry and no respiratory distress Auscultation: wheezes expiratory wheezes and throughout and diminished lung sounds diffuse Cardio: Rate: regular rate Heart sounds: S1 normal heart sound present and S2 normal heart sound present GI: Inspection: Yes normal to inspection Palpation (GI): Soft to palpation, nontender, no guarding and not rigid : General: Yes no CVA tenderness Back/Spine/Pelvis: Back: no CVA tenderness Skin: Rashes: no rashes Wounds: no wounds Neuro: General: patient oriented x3, tone normal, moves all extremities, no meningeal signs, no focal motor deficits and CN's II-XI intact bilaterally Cranial nerves: Yes CN's II-XII intact bilaterally and Yes Normal facial strength present Cognition (Neuro): normal cognition Speech: No Abnormal speech present Gait exam (Neuro): Normal gait present and not ataxic Motor exam (neuro): 5/5 motor strength present throughout, Pronator motor function not present and no tremor noted Coordination: [id number] test normal Romberg Test: Negative Extrem: General: Yes normal to inspection, Yes no pedal edema and Yes no calf tenderness Course Course Course Narrative: -1004--no leukocytosis. H/H stable. Troponin negative > will obtain repeat. BNP mildly elevated >will give dose of 40 IV Lasix. Clinically no evidence of CHF/fluid overload -viral testing and rapid strep negative XR chest 2V IMPRESSION: No acute cardiopulmonary abnormality. -1045--on re-evaluation patient reports symptomatic improvement. Denies dizziness at present. Reports improvement in SOB. Lungs now CTA. Patient in AFib with RVR after albuterol treatment. Known history of AFib. Admits to taking his home medications today, takes metoprolol ER. Will repeat EKG and give dose of IV metoprolol for rate control. -Patient remains feeling improved in the ED, denies pain at present. Pts nurse did report pt c/o brief CP in the ED > additional EKG performed and unchanged. HR in low 100's > will continue to monitor/observe - allow aluterol to metaolize -1406-- HR in high 90's. Patient reports sx improvement. Feels safe for discharge home at this time. Will discharge home with p.o. prednisone close PCP follow-up. Strict return precautions discussed Results discussed with patient including worrisome signs and symptoms and strict return precautions, and when to return to the emergency department. They verbalized understanding and feel safe for discharge at this time. Medications Administered Discontinued Medications Generic Name Dose Route Start Last Admin Trade Name Freq PRN Reason Stop Dose Admin Albuterol Sulfate 5 mg/ 0 mg 02/15/25 08:58 02/15/25 09:02 Albuterol/Ipratropium 3 ml INHALE 02/15/25 08:59 7.5 each ONCE ONE Administration Furosemide 40 mg 02/15/25 10:03 02/15/25 10:22 Furosemide 40 Mg/4 Ml Vial IVPUSH 02/15/25 10:04 40 mg ONCE ONE Administration Protocol Meclizine HCl 25 mg 02/15/25 08:40 02/15/25 09:31 Meclizine Hcl 25 Mg Tablet PO 02/15/25 08:41 25 mg ONCE ONE Administration Metoprolol Tartrate 2.5 mg 02/15/25 10:43 02/15/25 10:59 Metoprolol Tartrate 5 Mg/5 Ml Vial IVPUSH 02/15/25 10:44 2.5 mg ONCE ONE Administration Protocol Metoprolol Tartrate 2.5 mg 02/15/25 11:33 02/15/25 12:01 Metoprolol Tartrate 5 Mg/5 Ml Vial IVPUSH 02/15/25 11:34 2.5 mg ONCE ONE Administration Protocol Medical Decision Making Medical Decision Making MDM Narrative: 69-year-old Macanese-speaking male with a past medical history of diabetes, CHF, AFib on Eliquis, COPD, CE, hypothyroid, HTN, presenting to the ED via EMS complaining of dry cough, headache, ear pain, sore throat, SOB since 02:00. Also reports room spinning dizziness worse with position changes, resolved with rest. On exam vital signs stable, NAD, nontoxic appearing, diffuse expiratory wheeze and diminished lung sounds throughout. No focal neuro deficits. No appreciable nystagmus. No pitting edema. Concern for COPD exacerbation vs viral illness vs pneumonia. Lower suspicion for acute CHF or PE/ACS at this time. Concern for BPPV/vertigo. Lower suspicion for ICH or CVA/TIA. Low suspicion for severe sepsis Plan: EKG, labs, UA, CXR, ED bronch protocol, viral testing, meclizine, re-evaluate Please refer to course for remaining clinical decision making, interpretation of labs/imaging results, and discussions with consultants and/or family members. Differential Diagnosis Differential Diagnoses: The differential diagnosis associated with the presentation includes As above Admission/Observation Consideration of admission/observation: Escalation of care including admission/observation considered Lab Data MDM Lab Attestation statement: I reviewed the patient's lab results. 02/15/25 09:03 02/15/25 09:03 Labs: Lab Results 02/15/25 02/15/25 02/15/25 Range/Units 08:59 09:03 11:52 WBC 8.8 (4.8-10.8) X10*3/uL RBC 4.21 L (4.60-5.80) X10*6/uL Hgb 13.0 L (14.0-18.0) g/dl Hct 37.2 L (42.0-52.0) % MCV 88.4 (80.0-98.0) fL MCH 30.9 (27.0-33.0) pg MCHC 34.9 (31.0-36.0) g/dl RDW 11.6 (11.0-16.0) % Plt Count 160 (160-400) X10*3/uL MPV 10.1 (9.4-12.4) fL Immature Gran % (Auto) 0.2 (0.0-0.4) % Neut % (Auto) 80.8 H (45-73) % Lymph % (Auto) 10.9 L (20-40) % [place] % (Auto) 7.4 (2-11) % Eos % (Auto) 0.5 (0-4) % Baso % (Auto) 0.2 (0-2) % Lymph # (Auto) 1.0 L (1.2-4.9) X10*3/uL [place] # (Auto) 0.7 (0.1-1.2) X10*3/uL Eos # (Auto) 0.0 (0.0-0.4) X10*3/uL Baso # (Auto) 0.0 (0.0-0.2) X10*3/uL Abs Immat Gran (auto) 0.02 (0.00-0.03) X10*3/uL Absolute Neuts (auto) 7.1 (2.0-8.3) x10*3/uL Absolute Nucleated RBC 0.000 (0.0-0.012) X10*3/uL Nucleated RBC % (auto) 0.0 (0.0-0.2) /100WBC Sodium 145 (135-145) mmol/L Potassium 4.0 (3.3-5.1) mmol/L Chloride 112 H (96-108) mmol/L Carbon Dioxide 25 (22-29) mmol/L Anion Gap 12 (12-20) BUN 15 (9-16) mg/dL Creatinine 1.04 (0.5-1.4) mg/dL Estim Creat Clear Calc 73.4 Estimated GFR > 60 Random Glucose 129 H (60-115) mg/dL Calcium 9.7 (8.4-10.2) mg/dL Magnesium 1.7 (1.6-2.6) mg/dL Total Bilirubin 1.0 (0.0-1.0) mg/dL Direct Bilirubin 0.2 (0.0-0.5) mg/dL AST 22 (5-37) U/L ALT 33 (0-40) U/L Alkaline Phosphatase 49 (39-117) U/L Troponin I High Sens 4.0 4.1 (<3.5-35.0) ng/L NT-Pro-B Natriuret Pep 996.5 H (<300) pg/mL Total Protein 6.4 L (6.5-8.0) g/dL Albumin 4.2 (3.5-5.0) g/dL Influenza Type A (PCR) NEGATIVE (Negative) Influenza Type B (PCR) NEGATIVE (Negative) RSV RNA Qual (PCR) NEGATIVE (Negative) SARS-CoV-2 RNA (RT-PCR) NEGATIVE (Negative) S. pyogenes GrpA KRIS Negative (Negative) Independent Interpretation I performed an independent interpretation of an: EKG (My interpretation: EKG AFib rate of 93. QRS 82. QTC 435. No significant change when compared to prior.) and Plain X-Ray Radiology Impression Discussion of test interpretation with radiology: I have reviewed the radiologist's reading. Independent Historian Clinical information obtained from an independent historian. History obtained from or confirmed by: EMS External Record Review External record reviewed: Inpatient record, Office record, Outpatient record, Prior outpatient labs, Prior outpatient radiology, Primary care record and Outside ED record Tests considered The following testing was considered but not selected: As above Prescription Management I considered prescription management with: Other Chronic Conditions Patient?s care impacted by: Diabetes and Other (AFib on Eliquis, COPD) Critical Care Time Critical Care Time Critical Care Time: Yes Total Critical Care Time: 50 Attestation: I have personally provided critical care time exclusive of time spent on separately billable procedures. Time includes review of lab data, radiology results, discussion with consultants, and monitoring for potential decompensation. Intervention performed as documented. Discharge Plan Discharge Clinical Impression: COPD exacerbation, Atrial fibrillation with rapid ventricular response Patient Disposition: Home, Self-Care Instructions: A-fib (Atrial Fibrillation) (ED), COPD (Chronic Obstructive Pulmonary Disease) (DC) Additional Instructions: You are having a COPD exacerbation. Prednisone as a steroid please take as prescribed until completion It is important for you to continue all home prescribed medications. Monitor your blood pressure and heart rate at home closely If you develop any constant or worsening shortness of breath, chest pain, fevers, lightheadedness or dizziness return to the emergency department Prescriptions: New prednisone 20 mg tablet 40 mg PO DAILY 5 Days Qty: 10 0RF No Action albuterol sulfate [Ventolin HFA] 90 mcg/actuation HFA aerosol inhaler 2 puff PO Q6H PRN (Reason: shortness of breath or wheezing) Qty: 18 0RF tramadol 50 mg tablet 50 mg PO BEDTIME 7 Days Qty: 7 0RF fluticasone propion-salmeterol [Wixela Inhub] 250-50 mcg/dose blister with device 1 inh inhalation BID Qty: 180 1RF L.acidoph,saliva-B.bif-S.therm [Acidophilus Probiotic Blend] 175 mg capsule 1 cap PO DAILY Qty: 30 6RF epinephrine [EpiPen 2-Blaise] 0.3 mg/0.3 mL auto-injector 0.3 mg IM Q4H PRN (Reason: anaphylaxis) Qty: 2 0RF vitamin E (dl, acetate) 45 mg (100 unit) capsule 45 mg PO DAILY diclofenac sodium 1 % gel 2 g topical QID furosemide 40 mg tablet 40 mg PO Q2D oxycodone 5 mg tablet 5 mg PO Q8H PRN (Reason: pain) Qty: 7 0RF Rx Instructions: Partial Fill upon patient request. zolpidem 10 mg tablet 10 mg PO BEDTIME PRN (Reason: Insomnia) hydroxyzine pamoate 25 mg capsule 25 mg PO BID PRN (Reason: Anxiety) cholecalciferol (vitamin D3) 50 mcg (2,000 unit) tablet 50 mcg PO DAILY lisinopril 40 mg tablet 40 mg PO DAILY apixaban 5 mg tablet 5 mg PO BID clonazepam 1 mg tablet 1 mg PO BID PRN (Reason: Anxiety) rosuvastatin 40 mg tablet 40 mg PO DAILY metoprolol succinate 200 mg tablet extended release 24 hr 200 mg PO DAILY levothyroxine 100 mcg tablet 100 mcg PO DAILY albuterol sulfate 2.5 mg /3 mL (0.083 %) solution for nebulization 3 mg inhalation QID PRN (Reason: Shortness Of Breath Or Wheezing) metformin 500 mg tablet 500 mg PO BID meclizine 25 mg tablet 25 mg PO DAILY pantoprazole 40 mg tablet,delayed release (DR/EC) 40 mg PO DAILY Qty: 30 6RF Creon 36,000-114,000- 180,000 unit capsule,delayed release(DR/EC) 2 cap PO BID Qty: 360 1RF sennosides [Senna Laxative] 8.6 mg tablet 17.2 mg PO BEDTIME Qty: 60 6RF simethicone 180 mg capsule 180 mg PO QID 30 Days Qty: 120 6RF Rx Instructions: after meals hydrochlorothiazide 25 mg tablet 25 mg PO DAILY amlodipine 10 mg tablet 10 mg PO DAILY Referrals: Gemini Chavez MD [Primary Care Provider, Internal Medicine] - 2 days Print Language: Macanese
[2025-02-15 09:08] LABS: MANUAL DIFF FLAG NO
[2025-02-15 09:09] LABS: Hematocrit 37.2 % (42.0-52.0); Hemoglobin 13.0 g/dl (14.0-18.0); Imm Gran Abs Auto 0.02 X10*3/uL (0.00-0.03); Imm Gran Pct Auto 0.2 % (0.0-0.4); Lymphocytes Absolute Auto 1.0 X10*3/uL (1.2-4.9); Mean Corpuscular HGB Conc 34.9 g/dl (31.0-36.0); Mean Corpuscular Hemoglobin 30.9 pg (27.0-33.0); Mean Corpuscular Volume 88.4 fL (80.0-98.0); NRBC Abs Auto 0.000 X10*3/uL (0.0-0.012); NRBC Pct Auto 0.0 /100WBC (0.0-0.2); Platelet Count 160 X10*3/uL (160-400); Red Blood Count 4.21 X10*6/uL (4.60-5.80); White Blood Count 8.8 X10*3/uL (4.8-10.8)
[2025-02-15 09:29] LABS: Alanine Aminotransferase 33 U/L (0-40); Albumin Level 4.2 g/dL (3.5-5.0); Alkaline Phosphatase 49 U/L (39-117); Anion Gap 12 (12-20); Aspartate Amino Transferase 22 U/L (5-37); Blood Urea Nitrogen 15 mg/dL (9-16); Calcium 9.7 mg/dL (8.4-10.2); Carbon Dioxide 25 mmol/L (22-29); Chloride 112 mmol/L (96-108); Creatinine Clr Calc Pharmacy 73.4; Estimated Glomerular Filt Rate > 60; Magnesium 1.7 mg/dL (1.6-2.6); Potassium 4.0 mmol/L (3.3-5.1); Sodium 145 mmol/L (135-145); Total Protein 6.4 g/dL (6.5-8.0)
[2025-02-15 09:33] LABS: IDNOW Serial# 08D9AD1C; Strep A Nucleic Acid Negative (Negative)
[2025-02-15 09:36] LABS: NT Pro B Type Natriuretic Pept 996.5 pg/mL (<300)
[2025-02-15 09:38] LABS: Troponin-I High Sensitivity 4.0 ng/L (<3.5-35.0)
--- OUTSIDE RECORDS SUMMARY | 2025-02-15 09:38 | XMS_ITS | Encounter Summary ---
Author Organization [employer] Address [address] [facility] [address] [place] [address] Care Team Providers Care Training Program Manager Name Role Phone Gemini Chavez MD Primary Care Provide r Reason for Visit * Reason Onset Date Comments Prior Authorization 06/10/2024 Encounter Details Date Type Department Care Team ([facility] st Contact Info) Description 06/10/2024 Telephone [facility] [address] [place], [place] [phone] Gemini Cahvez MD [address] [place] [address] Prior Authorization Social History Tobacco Use Types [...] is required on PA. Contact pt at [phone] (jordanian) * Telephone Encounter - Rohit Cruz - 06/10/2024 9:00 AM EST Tc from pt requesting a PA for Tirzepatide-Weight Management (Zepbound) 2.5 MG/0.5ML solution auto-injector because pt stated that he received a letter stating that PA got denied. Contact pt: [phone] (Arabic) documented in this encounter Plan of Treatment Upcoming Encounters Date Type Department Care Team (Late st Contact Info) Description 03/23/2025 11:15 AM EST Office Visit [facility] [address] [place], [place] [phone] Gemini Chavez MD [address] [place] [phone] documented as of this encounter Visit Diagnoses Not on filedocumented in this encounter Additional Health Concerns Assessment Noted Time PHQ-9 Depression Total Score: 0 09/03/19 9:55 AM EDT documented as of this encounter Care Teams Training Program Manager Relationship Specialty Start Date End Date Gemini Chavez MD [address] [place] [address] PCP - General Family Medicine 01/21/18 [facility] 03/28/24 documented as of this encounter
--- OUTSIDE RECORDS SUMMARY | 2025-02-15 09:38 | XMS_ITS | Encounter Summary ---
Author Organization [employer] Address [address] [facility] [address] [place] [address] Care Team Providers Care Direct Service Provider Name Role Phone Gemini Chavez MD Primary Care Provide r Reason for Visit * Reason Comments Med Refill Encounter Details Date Type Department Care Team ([facility] st Contact Info) Description 02/12/2024 Refill [facility] [address] [place], [place] [phone] Gemini Chavez MD [address] [place] [address] Prediabetes Social History Tobacco Use Types Packs/Day [...] Description 03/23/2025 11:15 AM EST Office Visit [facility] [address] [place] [phone] Gemini Chavez MD [address] [place] [phone] documented as of this encounter Visit Diagnoses Diagnosis Prediabetes Other abnormal glucose documented in this encounter Additional Health Concerns Assessment Noted Time PHQ-9 Depression Total Score: 0 09/03/19 24 9:55 AM EDT documented as of this encounter Care Teams Direct Service Provider Relationship Specialty Start Date End Date Gemini Chavez MD [address] [place] [phone] PCP - General Family Medicine 01/21/18 [employer] 03/28/24 documented as of this encounter
--- OUTSIDE RECORDS SUMMARY | 2025-02-15 09:38 | XMS_ITS | Encounter Summary ---
Author Organization [employer] Address [address] [facility] [address]t [place] [address] Care Team Providers [employer] Solutions Specialist Name Role Phone Gemini Chavez MD Primary Care Provide r Reason for Visit * Reason Comments Med Refill Encounter Details Date Type Department Care Team ([facility] st Contact Info) Description 03/03/2024 Refill [facility] [address] [place], [place] [phone] Gemini Chavez MD [address] [place], [place] [phone] Social History Tobacco Use Types Packs/Day Years [...] Description 03/23/2025 11:15 AM EST Office Visit [facility] [address] [place] [phone] Gemini Chavez MD [address] [place] [phone] documented as of this encounter Visit Diagnoses Not on filedocumented in this encounter Additional Health Concerns Assessment Noted Time PHQ-9 Depression Total Score: 0 09/03/19 24 9:55 AM EDT documented as of this encounter Care Teams Solutions Specialist Relationship Specialty Start Date End Date Gemini Chavez MD [address] [place] [phone] PCP - General Family Medicine 01/21/18 [email or web address] 03/28/24 documented as of this encounter
--- OUTSIDE RECORDS SUMMARY | 2025-02-15 09:38 | XMS_ITS | Encounter Summary ---
Author Organization [employer] Address [address] [facility] 7t [place] [address] Care Team Providers Care Esthetician/Spa Coordinator Name Role Phone Gemini Chavez MD Primary Care Provide r Reason for Visit * Reason Comments Med Refill Encounter Details Date Type Department Care Team ([facility] st Contact Info) Description 05/14/2024 Refill [facility] MEDICINE 230 [place], [place] [phone] Gemini Chavez MD 230 [place], [place] [phone] Class 1 obesity due to excess calories [...] EST Office Visit [facility] MEDICINE [address] [place] [phone] Gemini Chavez MD [address] [place] [phone] documented as of this encounter Visit Diagnoses Diagnosis Class 1 obesity due to excess calories with serious comorbidity and body mass index (BMI) of 33.0 to 33.9 in adult documented in this encounter Additional Health Concerns Assessment Noted Time PHQ-9 Depression Total Score: 0 09/03/19 9:55 AM EDT documented as of this encounter Care Teams Esthetician/Spa Coordinator Relationship Specialty Start Date End Date Gemini Chavez MD [address] [place] [phone] PCP - General Family Medicine 01/21/18 [employer] 03/28/24 documented as of this encounter
--- OUTSIDE RECORDS SUMMARY | 2025-02-15 09:38 | XMS_ITS | Encounter Summary ---
Author Organization [employer] Address 75 [facility] 7t [place] [address] Care Team Providers Care Newscast Director Name Role Phone Gemini Chavez MD Primary Care Provide r Reason for Visit * Reason Comments Med Refill Encounter Details Date Type Department Care Team ([facility] st Contact Info) Description 02/12/2024 Refill [facility] MEDICINE 230 [place], [place] [phone] Gemini Chavez MD 230 [place] [address] Prediabetes Social History Tobacco Use Types Packs/Day [...] 11:15 AM EST Office Visit [facility] MEDICINE [address] [place] [phone] Gemini Chavez MD [address] [place] [address] documented as of this encounter Visit Diagnoses Diagnosis Prediabetes Other abnormal glucose documented in this encounter Additional Health Concerns Assessment Noted Time PHQ-9 Depression Total Score: 0 09/03/19 24 9:55 AM EDT documented as of this encounter Care Teams Newscast Director Relationship Specialty Start Date End Date Gemini Chavez MD [address] [place] [id number] PCP - General Family Medicine 01/21/18 [employer] 03/28/24 documented as of this encounter
--- OUTSIDE RECORDS SUMMARY | 2025-02-15 09:39 | XMS_ITS | Encounter Summary ---
Author Organization [employer] Address [address] [facility] 7t [place] [address] Care Team Providers Care Retail Business Analyst Name Role Phone Gemini Chavez MD Primary Care Provide r Reason for Visit * Reason Comments Med Refill Encounter Details Date Type Department Care Team (Late st Contact Info) Description 09/08/2022 Refill [facility] MED & PEDS [address] [place], [place] [phone] Umer Sears MD 230 [place], [place] [phone] Seasonal allergies Social History Tobacco Use Types [...] Visit [facility] MEDICINE 230 [place], [place] [phone] Gemini Chavez MD 230 [place], [place] [phone] documented as of this encounter Visit Diagnoses Diagnosis Seasonal allergies Allergic rhinitis, cause unspecified documented in this encounter Additional Health Concerns Assessment Noted Time PHQ-9 Depression Total Score: 6 05/16/19 23 1:42 PM EST documented as of this encounter Care Teams Retail Business Analyst Relationship Specialty Start Date End Date Gemini Chavez MD 230 [place] [address] PCP - General Family Medicine 01/21/18 [employer] 03/28/24 documented as of this encounter
--- OUTSIDE RECORDS SUMMARY | 2025-02-15 09:39 | XMS_ITS | Encounter Summary ---
Author Organization [employer] Address 75 [facility] 7t [place] [address] Care Team Providers Care Client Relationship Executive Name Role Phone Gemini Chavez MD Primary Care Provide r Reason for Visit * Reason Comments Med Change Request Encounter Details Date Type Department Care Team (Late Contact Info) Description 01/08/2023 Refill [facility] MEDICINE 230 [place], [place] [phone] Marsha Menjivar MD 230 [place] [address] Chronic obstructive pulmonary disease, unspecified COPD type (CMS/[facility]) Social History Tobacco Use Types Packs/Day [...] generated for Nebulizer signed and faxed to [facility]. documented in this encounter Plan of Treatment Upcoming Encounters Date Type Department Care Team (Late st Contact Info) Description 03/23/2025 11:15 AM EST Office Visit [facility] MEDICINE 230 [place] [address] Gemini Chavez MD 230 [place] [address] documented as of this encounter Visit Diagnoses Diagnosis Chronic obstructive pulmonary disease, unspecified COPD type (CMS/HCC) ([facility]) documented in this encounter Additional Health Concerns Assessment Noted Time PHQ-9 Depression Total Score: 6 05/16/19 23 1:42 PM EST documented as of this encounter Care Teams Client Relationship Executive Relationship Specialty Start Date End Date Gemini Chavez MD 230 [place] [address] PCP - General Family Medicine 01/21/18 [employer] 03/28/24 documented as of this encounter
--- OUTSIDE RECORDS SUMMARY | 2025-02-15 09:39 | XMS_ITS | Encounter Summary ---
Author Organization [employer] Address [address] [facility] 7t [place] [address] Care Team Providers Care Group President Name Role Phone Gemini Chavez MD Primary Care Provide r Encounter Details Date Type Department Care Team (Late st Contact Info) Description 05/10/2024 Orders Only [facility] MEDICINE 230 [place], [place] [phone] Gemini Chavez MD 230 [place], [place] [phone] Stage 3 chronic kidney disease, unspecified whether [...] 03/23/2025 11:15 AM EST Office Visit [facility] MEDICINE [address] [place] [phone] Gemini Chavez MD [address] [place] [address] documented as of this encounter Visit Diagnoses Diagnosis Stage 3 chronic kidney disease, unspecified whether stage 3a or 3b CKD (CMS/HCC) ([facility])- Primary Class 2 severe obesity due to excess calories with serious comorbidity and body mass index (BMI) of 38.0 to 38.9 in adult documented in this encounter Additional Health Concerns Assessment Noted Time PHQ-9 Depression Total Score: 0 09/03/19 9:55 AM EDT documented as of this encounter Care Teams Group President Relationship Specialty Start Date End Date Gemini Chavez MD [address] [place] [phone] PCP - General Family Medicine 01/21/18 [employer] 03/28/24 documented as of this encounter
--- OUTSIDE RECORDS SUMMARY | 2025-02-15 09:39 | XMS_ITS | Encounter Summary ---
Author Organization [employer] Address 75 [facility] 7t [place] [address] Care Team Providers Care New Car Inspector Name Role Phone Gemini Chavez MD Primary Care Provide r Reason for Visit * Reason Onset Date Comments Referral 03/14/2023 Encounter Details Date Type Department Care Team ([facility] st Contact Info) Description 03/14/2023 Telephone [facility] MEDICINE 230 [place], [place] [phone] Gemini Chavez MD 230 [place], [place] [phone] Referral Social History Tobacco Use Types Packs/Day [...] t he electric, gas, oil or water [employer] threatened to shut off services in your [...] 11:15 AM EST Office Visit [facility] MEDICINE 230 [place] [address] Gemini Chavez MD 230 [place] [address] documented as of this encounter Visit Diagnoses Not on filedocumented in this encounter Additional Health Concerns Assessment Noted Time PHQ-9 Depression Total Score: 6 05/16/19 23 1:42 PM EST documented as of this encounter Care Teams New Car Inspector Relationship Specialty Start Date End Date Gemini Chavez MD 230 [place] [address] PCP - General Family Medicine 01/21/18 [employer] 03/28/24 documented as of this encounter
--- OUTSIDE RECORDS SUMMARY | 2025-02-15 09:39 | XMS_ITS | Encounter Summary ---
Author Organization [employer] Address 75 [facility] 7t [place] [address] Care Team Providers Care Motor Man Name Role Phone Gmeini Chavez MD Primary Care Provide r Reason for Visit * Reason Onset Date Comments Appointment Request 08/21/2022 Encounter Details Date Type Department Care Team ([facility] st Contact Info) Description 08/21/2022 Telephone [facility] MEDICINE 230 [place], [place] [phone] Gemini Chavez MD 230 [place] [address] Appointment Request Social History Tobacco Use Types [...] encounter Miscellaneous Notes * Telephone Encounter - Jos eMaria Castro - 08/21/2022 12:42 PM EDT Tc from pt requesting to r/s appt on 08/21/22 ( Recall HTN ) due to an family emergency. Please contact pt at [phone] documented in this encounter Plan of Treatment Upcoming Encounters Date Type Department Care Team (Late st Contact Info) Description 03/23/2025 11:15 AM EST Office Visit [facility] MEDICINE 230 [place] [address] Gemini Chavez MD 230 [place] [address] documented as of this encounter Visit Diagnoses Not on filedocumented in this encounter Additional Health Concerns Assessment Noted Time PHQ-9 Depression Total Score: 6 05/16/19 23 1:42 PM EST documented as of this encounter Care Teams Motor Man Relationship Specialty Start Date End Date Gemini Chavez MD [address] [place] [address] PCP - General Family Medicine 01/21/18 [employer] 03/28/24 documented as of this encounter
--- OUTSIDE RECORDS SUMMARY | 2025-02-15 09:39 | XMS_ITS | Encounter Summary ---
Author Organization [employer] [facility] Address 75 [facility] 7t [place] [address] Care Team Providers Care Crane Oiler Name Role Phone Gemini Chavez MD Primary Care Provide r Reason for Visit * Reason Comments Med Refill Encounter Details Date Type Department Care Team (Late Contact Info) Description 06/21/2022 Refill [facility] MEDICINE [address] [place] [address] [phone] Marsha Menjivar MD 230 [place], [place] [phone] Chronic systolic heart failure (CMS/HCC) Social History [...] Description 03/23/2025 11:15 AM EST Office Visit [facility] MEDICINE [address] [place] [phone] Gemini Chavez MD 230 [place] [address] documented as of this encounter Visit Diagnoses Diagnosis Chronic systolic heart failure (HCC) Chronic systolic heart failure documented in this encounter Additional Health Concerns Assessment Noted Time PHQ-9 Depression Total Score: 6 05/16/19 23 1:42 PM EST documented as of this encounter Care Teams Crane Oiler Relationship Specialty Start Date End Date Gemini Chavez MD 230 [place] [address] PCP - General Family Medicine 01/21/18 [employer] 03/28/24 documented as of this encounter
--- OUTSIDE RECORDS SUMMARY | 2025-02-15 09:39 | XMS_ITS | Clinical Summary ---
Author Organization [facility] Address [address] [facility] [address] [place] [phone] Phone Care Team Providers Care Electronics System Mechanic Name Role Phone Curt Richey MD Primary [...] Medical Devices Not on file Insurance [address] [place] [id number] [facility] ONE CARE MEDICARE REPLACEMENT CLIFF DONAHUE [facility] MEDICARE REPLACEMENT MEDICARE REPLACEMENT CARE MEDICARE [place] [address] [place] [address] [employer] MEDICARE REPLACEMENT Care Teams Electronics System Mechanic Relationship Specialty Start Date End Date Curt Richey MD PCP - General Cardiology 12/21/19 Additional Source Comments The information contained in this document represents components of the legal health record. It is not the complete legal health record.[facility]
--- OUTSIDE RECORDS SUMMARY | 2025-02-15 09:39 | XMS_ITS | Encounter Summary ---
Author Organization [employer] Address [address] [facility] 7t [place] [address] Care Team Providers Care Crust Sorter Name Role Phone Gemini Chavez MD Primary Care Provide r Reason for Visit * Reason Comments Med Refill Encounter Details Date Type Department Care Team ([facility] st Contact Info) Description 05/08/2024 Refill [facility] MEDICINE 230 [place], [place] [phone] Gemini Chavez MD 230 [place] [address] Class 1 obesity due to excess calories [...] EST Office Visit [facility] MEDICINE [address] [place] [phone] Gemini Chavez MD 230 [place] [address] documented as of this encounter Visit Diagnoses Diagnosis Class 1 obesity due to excess calories with serious comorbidity and body mass index (BMI) of 33.0 to 33.9 in adult documented in this encounter Additional Health Concerns Assessment Noted Time PHQ-9 Depression Total Score: 0 09/03/19 24 9:55 AM EDT documented as of this encounter Care Teams Crust Sorter Relationship Specialty Start Date End Date Gemini Chavez MD [address] [place] [phone] PCP - General Family Medicine 01/21/18 [employer] 03/28/24 documented as of this encounter
--- OUTSIDE RECORDS SUMMARY | 2025-02-15 09:39 | XMS_ITS | Encounter Summary ---
Author Organization [employer] Address 75 [facility] 7t [place] [address] Care Team Providers Care Dry Kiln Operator Helper Name Role Phone Gemini Chavez MD Primary Care Provide r Encounter Details Date Type Department Care Team (Late st Contact Info) Description 02/19/2023 Abstract [facility] MEDICINE 230 [place], [place] [phone] Gemini Chavez MD 230 [place], [place] [phone] Social History Tobacco Use Types Packs/Day Years [...] Description 03/23/2025 11:15 AM EST Office Visit [facility] MEDICINE 230 [place] [address] Gemini Chavez MD 230 [place] [address] documented as of this encounter Visit Diagnoses Not on filedocumented in this encounter Additional Health Concerns Assessment Noted Time PHQ-9 Depression Total Score: 6 05/16/19 23 1:42 PM EST documented as of this encounter Care Teams Dry Kiln Operator Helper Relationship Specialty Start Date End Date Gemini Chavze MD 230 [place] [address] PCP - General Family Medicine 01/21/18 [employer] 03/28/24 documented as of this encounter
--- OUTSIDE RECORDS SUMMARY | 2025-02-15 09:39 | XMS_ITS | Encounter Summary ---
Author Organization [employer] Address 75 [facility] 7t [place] [address] Care Team Providers Care Harbormaster Name Role Phone Gemini Chavez MD Primary Care Provide r Reason for Visit * Reason Comments Med Refill Encounter Details Date Type Department Care Team (Late st Contact Info) Description 10/20/2023 Refill [facility] CHC MED & PEDS [address] [place], [place] [phone] Gemini Chavez MD 230 [facility] [place] [address] Seasonal allergies Social History Tobacco Use Types [...] Office Visit [facility] MEDICINE [address] [place] [address] Gemini Chavez MD [address] [place] [address] documented as of this encounter Visit Diagnoses Diagnosis Seasonal allergies Allergic rhinitis, cause unspecified documented in this encounter Additional Health Concerns Assessment Noted Time PHQ-9 Depression Total Score: 0 09/03/19 9:55 AM EDT documented as of this encounter Care Teams Harbormaster Relationship Specialty Start Date End Date Gemini Chavez MD [address] [place] [address] PCP - General Family Medicine 01/21/18 [employer] 03/28/24 documented as of this encounter
--- OUTSIDE RECORDS SUMMARY | 2025-02-15 09:39 | XMS_ITS | Encounter Summary ---
Author Organization [employer] Address [address] [facility] 7t [place] [address] Care Team Providers Care Edge Stripper Name Role Phone Gemini Chavez MD Primary Care Provide r Encounter Details Date Type Department Care Team (Late st Contact Info) Description 06/18/2024 Orders Only [facility] MEDICINE 230 [place], [place] [phone] Gemini Chavez MD 230 [place], [place] [phone] Social History Tobacco Use Types Packs/Day Years [...] Description 03/23/2025 11:15 AM EST Office Visit [facility] MEDICINE 230 [place] [address] Gemini Chavez MD 230 [place] [address] documented as of this encounter Visit Diagnoses Not on filedocumented in this encounter Additional Health Concerns Assessment Noted Time PHQ-9 Depression Total Score: 0 09/03/19 9:55 AM EDT documented as of this encounter Care Teams Edge Stripper Relationship Specialty Start Date End Date Gemini Chavez MD [address] [place] [address] PCP - General Family Medicine 01/21/18 [employer] 03/28/24 documented as of this encounter
--- OUTSIDE RECORDS SUMMARY | 2025-02-15 09:39 | XMS_ITS | Clinical Summary ---
Author Organization [employer] Address [address] [place] [address] 7[address] [place] [address] Care Team Providers Care Inhalation Therapy Aides Teacher Name Role Phone Gemini Chavez MD [...] obstructive pulmonary disease, unspecified COPD type (CMS/HCC) (HCC) Use along with nebulizer 1 kit 2022 [...] 40 MG tabletIndications:Chr onic systolic heart failure (HCC) TAKE ALTERNATING DOSE OF 1 TABLET AND 1 1/2 TABLET EVERY OTHER DAY 114 tablet 1 2022 Active loratadine (Claritin) 10 MG tabletIndications:Sea shady [...] ANAPHYLAXIS AND CALL 911 2022 Active Creon 28074-915934 units capsule delayed-release particles capsule Take 2 capsules by mouth 4 times daily. ADMINISTER WITH MEALS AND/OR SNACKS 2022 Active Fluticasone-Salmetero l 250-50 MCG/ACT aerosol powder Inhale 1 puff 2 times daily. 2023 Active Umeclidinium Helton (Incruse Ellipta) 62.5 MCG/ACT aerosol powderIndications:Chr onic obstructive pulmonary disease, unspecified COPD type (CMS/HCC) (HCC) Take 1 Inhalation. by mouth in the morning. Inhale 1 puff by inhalation route every day at the same time each day 30 each 3 2023 Active Semaglutide-Weight Management (Wegovy) 1 MG/0.5ML solution auto-injector INJECT ONE PEN (=1MG) SUBCUTANEOUSLY ONCE A WEEK 2 mL 2023 Active cholecalciferol (Vitamin D-3) 25 MCG (1000 UT) tabletIndications:Pre diabetes Take 1 tablet (25 mcg) by mouth Once per day. 60 tablet 1 2023 Active meclizine (Antivert) 25 MG tabletIndications:Josh [...] AL СЕРГЕЙ 150 mL 3 2024 Active amLODIPine (Norvasc) 2.5 MG tabletIndications:Zaina [...] time per week. 2 mL 2024 Active Diclofenac Sodium 1 % gel APPLY 2 GRAMS TOPICALLY FOUR TIMES DAILY 300 g 2 2024 Active FREESTYLE LITE test stripIndications:Pred iabetes Use to test blood sugar once daily 100 each 3 09/03 Active Blood Glucose Monitoring Suppl (FreeStyle [place] Lite) w/Device kitIndications:Predia betes Use to test blood sugar once daily 1 kit 2024 Active cholecalciferol (D3) 50 MCG (1999) tabletIndications:Vit figueroa D deficiency TOME FAUSTINA TABLETA TODOS [place] 90 tablet 3 2024 Active metFORMIN (Glucophage) 500 MG tabletIndications:Pre diabetes TAKE 1 TABLET BY MOUTH WITH BREAKFAST AND EVENING MEAL 180 tablet 3 2024 Active lisinopril 40 MG tabletIndications:Zaina areli hypertension TAKE 1 TABLET BY MOUTH EVERY MORNING 90 tablet 1 2024 Active FreeStyle lancetsIndications:Pr ediabetes USE TO TEST BLOOD SUGAR ONCE DAILY 100 each 4 2024 Active lidocaine (Lidoderm) 5 % patchIndications:Multimedia Producer haylee left shoulder pain Apply 1 patch topically Once per day. Remove & discard patch within 12 hours or as directed by . 14 patch 2024 Active rosuvastatin (Crestor) 40 MG tabletIndications:Pur e hypercholesterolemia TOME 1 TABLETA POR VIA ORAL TODOS [place] 90 tablet 1 2024 Active metoprolol succinate XL (Toprol-XL) 200 MG 24 hr tablet TAKE 1 TABLET BY MOUTH EVERY DAY 90 tablet 1 2024 Active levothyroxine (Synthroid, Levoxyl) 100 MCG tabletIndications:Acq uired hypothyroidism TAKE 1 TABLET BY MOUTH EVERY DAY 90 tablet 1 2024 Active apixaban (Eliquis) 5 MG tablet TOME 1 TABLETA POR VIA ORAL DOS VECES AL СЕРГЕЙ 180 tablet 2024 Active Vitamin E 45 MG (100 UNIT) capsuleIndications:Ac quired hypothyroidism Take 1 capsule by mouth Once per day. TAKE 1 CAPSULE BY MOUTH EVERY MORNING 30 capsule 11 2024 Active hydroCHLOROthiazide (HYDRODiuril) 25 MG tabletIndications:Hyp ertension, unspecified type TAKE 1 TABLET BY MOUTH EVERY DAY 90 tablet 1 2024 Active Vitamin E 45 MG (100 UNIT) capsuleIndications:Ac quired hypothyroidism TOME 1 CAPSULA POR VIA ORAL CADA MANANA 30 capsule 11 02/04 Discontinued metoprolol succinate XL (Toprol-XL) 200 MG 24 hr tablet TAKE 1 TABLET BY MOUTH EVERY DAY 90 tablet 1 01/27 Discontinued levothyroxine (Synthroid, Levoxyl) 100 MCG tabletIndications:Acq uired hypothyroidism TOME 1 TABLETA POR VIA ORAL TODOS [place] 90 tablet 1 01/27 Discontinued apixaban (Eliquis) 5 MG tablet TAKE 1 TABLET BY MOUTH TWICE A DAY 180 tablet 01/28 Discontinued hydroCHLOROthiazide (HYDRODiuril) 25 MG tabletIndications:Hyp ertension, unspecified type TAKE 1 TABLET BY MOUTH EVERY DAY 30 tablet 2 02/11 Discontinued Hospital, Clinic, or Other Facility Administered [...] via EMS Stage 3 chronic kidney disease (CMS/HCC) 024 Assessment & Plan (11/29/2024 3:17 PM EDT): [...] being schedule yet Atrial fibrillation with RVR ([facility]) Assessment & Plan (11/29/2024 3:15 PM EDT): [...] TSH and contact him back Patient declines splitting machine tender appointment Prediabetes 05/19/2023 Assessment & [...] will like to be re-evalauted for more FINISHED CLOTH EXAMINER hours Preop examination 02/13/2023 Assessment & Plan [...] ideally next day of procedure--I called his sample distributor-Dr Ely's # [phone] office and spoke w CLIFF rodriguez with plan to hold AC as rec above with no need for bridging. -on day of surgery can take BB and levothyroxine with a sip of water and to hold rest of meds -nurse staff to fax this note to surgeon COPD with asthma ([facility]) 01/22/2023 Assessment & Plan (11/29/2024 3:17 PM [...] renal cyst 06/23/2012 Steatohepatitis 06/23/2012 Atrial fibrillation (CMS/HCC) 12/12/2011 Assessment & Plan (05/19/2023 2:03 PM [...] Encounters Date Type Department Care Team Description 02/11/2025 Refill [facility] [address] [place] [address] Gemini Chavez MD Hypertension, unspecified type 02/04/2025 Refill [facility] [address] [place] [address] Gemini Chavez MD Acquired hypothyroidism 02/03/2025 Telephone [facility] [address] [place] [address] Gemini Chavez MD Fyi 02/02/2025 Orders Only GENERIC EXTERNAL DATA DEPARTMENT Provider, Generic External Data 01/31/2025 Patient Outreach [facility] [address] [place] [address] Gemini Chavez MD Care Coordination (A Agency) 01/28/2025 Refill [facility] [address] [place] [address] Gemini Chavez MD 01/27/2025 Refill [facility] [address] [place] [address] Gemini Chavez MD Acquired hypothyroidism 01/20/2025 Orders Only GENERIC EXTERNAL DATA DEPARTMENT Provider, Generic External Data 01/18/2025 Telephone [facility] [address] [place], [place] [phone] Gemini Chavez MD NOV RECALL 12/22/2024 Telephone [facility] [address] [place] [address] Gemini Chavez MD Hypotension 12/16/2024 Refill [facility] [address] [place] [address] Gemini Chavez MD Pure hypercholesterolemia 12/15/2024 10:30 AM EDT Office Visit [facility] [address] [place] [address] Jessica Ho NP Chronic left shoulder pain (Primary Dx); Acute reactive otitis externa of both ears 12/15/2024 Telephone [facility] [address] [place] [address] Gemini Chavez MD telephone call 12/15/2024 Travel 12/14/2024 Telephone [facility] [address] [place] [address] Gemini Chavez MD Nurse Triage 12/11/2024 Orders Only [facility] External Provider, [facility] 12/01/2024 Refill [facility] [address] [place] [address] Gemini Chavez MD Prediabetes 12/01/2024 Refill [facility] [address] [place] [address] Gemnii Chavez MD Primary hypertension 11/29/2024 11:00 AM EDT Office Visit [facility] [address] [place] [address] Gemini Chavez MD Chronic left shoulder pain (Primary Dx); Hypertension, unspecified type; Chronic systolic heart failure (CMS/HCC); COPD with asthma (CMS/HCC); Atrial fibrillation with RVR (CMS/HCC); Stage 3 chronic kidney disease, unspecified whether stage 3a or 3b CKD (CMS/HCC); Prediabetes; Class 1 obesity due to excess calories with serious comorbidity and body mass index (BMI) of 34.0 to 34.9 in adult 11/29/2024 Telephone [facility] [address] [place] [address] Gemini Chavez MD Prior Authorization (SUKH PA: Claudia) 11/29/2024 Travel 11/26/2024 Telephone [facility] [address] [place], [place] [phone] Gemini Chavez MD Chartprep 11/18/2024 Refill [facility] [address] [place] [address] Gemini Chavez MD Prediabetes 11/16/2024 Refill [facility] [address] [place] [address] Gemini Chavez MD Hypertension, unspecified type from Last 3 Months Immunizations Immunization Administration [...] Description 03/23/2025 11:15 AM EST Office Visit [facility] [address] [place] [address] Gemini Chavez MD [address] [place] [address] Health Maintenance Due Date Last Done Comments [...] Procedure Name Priority Date/Time Associated Diagnosis Comments GLUCOSE, WHOLE BLOOD Routine 02/02/2025 9:24 AM EDT BASIC METABOLIC PANEL Routine 01/20/2025 3:40 PM [...] Relevant to Health Maintenance Results * (ABNORMAL) Glucose, Whole Blood (02/02/2025 9:24 AM EDT) Glucose, Whole Blood 125(H) 60 - 115 mg/dL [facility] Comment:METER #: [id number] 02/02/2025 9:24 AM EDT 02/02/2025 9:28 AM EDT Generic External Data Provider LAB BLOOD ORDERAB LES Final Result Performing Organization Address [facility] Co de Phone Number [facility] [address] [place] [address] [phone] * (ABNORMAL) Basic Metabolic Panel (01/20/2025 3:40 PM EDT) Sodium 144 135 - 145 mmol/L [facility] Potassium 4.1 3.3 - 5.1 mmol/L [facility] Chloride 108 96 - 108 mmol/L [facility] Carbon Dioxide 25 22 - 29 mmol/L [facility] Anion Gap 15 12 - 20 [facility] Urea Nitrogen (BUN) 26(H) 9 - 16 mg/dL [facility] Creatinine, Serum 1.43(H) 0.5 - 1.4 mg/dL [facility] Estimated Glomerular Filt Rate 49 [facility] Comment:Chronic Kidney Disea se: Estimated GFR < 60 mL/min/[id number] Kidney Disease: Estimated GFR < 15 mL/min/1.73m2 Glucose 73 60 - 115 mg/dL [facility] Calcium 9.5 8.4 - 10.2 mg/dL [facility] 01/20/2025 3:40 PM EDT 01/20/2025 3:40 PM EDT Generic External Data Provider LAB BLOOD ORDERAB LES Final Result Performing Organization Address [facility]/ZIP Co de Phone Number [facility] [address] [place] [address] [phone] * XR Shoulder 2+ Views Left (12/11/2024 9:05 AM EDT) Anatomical Region Laterality Modality Upper Extremities, Shoulder Left Radi ographic Imaging 12/11/2024 9:05 AM EDT Narrative 12/11/2024 9:06 AM EDT [address] [address] XRay Report Signed Patient: iMn Rees MR#: [id number] : 1955 Acct:[id number] Age/Sex: 69 / M ADM Date: 12/11/24 Loc: HO.ED Attending Dr: Ordering Physician: Zenaida Zaragoza MD Date of Service: 12/11/24 Procedure(s): XR shoulder LT min 2V Accession Number(s): [id number] cc: Gemini Chavez MD; Zenaida Zaragoza MD [...] in OV> 12/11/24905 DD/ 4 TD/TT: 12/11/24904 Hardwood Floor Finisher: Procedure Note Donotuseinterpreter, Image - 12/11/[address] [address] XRay Report Signed Patient: Min ReesMR#: [id number] : 1955cct:[id number] Age/Sex: 69 / MADM Date: 12/11/24 Loc: HO.ED Attending Dr: Ordering Physician: Zenaida Zaragoza MD Date of Service: 12/11/24 Procedure(s): XR shoulder LT min 2V Accession Number(s): [id number] cc: Gemini Chavez MD; Zenaida Zaragoza MD [...] in OV> 12/11/24905 DD/ 4 TD/TT: 12/11/24904 Hardwood Floor Finisher: [facility] External Provider IMG XR PROCEDURES Edited Result - Final * (ABNORMAL) POCT HGB A1C (11/29/2024 11:22 AM EDT) Hemoglobin A1C 5.7 4.0 - 5.7 % QC Media Lot # [id number] Lot# Expiration Date 448 Blood 11/29/2024 11:2 2 AM EDT Gemini Chung MD POINT OF CARE TEST ENTER/EDIT ORDERABLES Edited Result - Final * POCT Glucose (11/29/2024 11:22 AM EDT) Glucose Blood, POC 178 60 - 200 mg/dL QC Media Lot # [id number] Lot# Expiration Date [id number] Blood Capillary blood specimen / Unknown 11/29/2024 11:22 AM EDT Gemini Chung MD POINT OF CARE TEST ENTER/EDIT ORDERABLES Edited Result - Final * (ABNORMAL) Lipid Panel, Standard (05/03/2024 8:15 AM EST) Triglycerides 230(H) <150 mg/dL [facility] Comment:Desirable Triglyceri de: less than 150 mg/dLBorderline High Triglyceride 150-199 mg/dLHigh Triglyceride: 200-499 mg/dLVery High Triglyceride: greater than or equal to 5OO mg/dL Cholesterol 118 <200 mg/dL [facility] Comment:Desirable Cholestero l: less than 200 mg/dLBorderline High Cholesterol: 200-239 mg/dLHigh Cholesterol: greater than 239 mg/dL LDL Cholesterol Calculated 41 <100 mg/dL [facility] Comment:Desirable LDL: less than 100 mg/dLNear Optimal/Above Optimal LDL: 110- 129 mg/dLBorderline High LDL: 130-159 mg/dLHigh LDL: 160-189 mg/dLVery High LDL: greater than or equal to 190 mg/dL HDL Cholesterol 31(L) >40 mg/dL [facility] Comment:Desirable HDL: great er than 40 mg/dL Note: This HDL assay may give artificially low results in patients with liver disease. Blood Venous blood specimen / Unknown 05/03/2024 8:15 AM EST 05/03/2024 11:40 AM EST Gemini Chung MD LAB BLOOD ORDERABLES Final Result [facility] [address] [place] [phone] * Hm Colonoscopy (01/21/2024 10:19 AM EDT) Colonoscopy Normal Normal Narrative Jamila Page - 01/21/2024 10:19 AM EDT Repeat Colonoscopy in 6-12 months due to poor right prep or earlier if clinically indicated see external hospital admission note on 01/21/2024 Historical Provider HEALTH MAINTENANCE Edited Result - Final * Hepatitis C Antibody Reflex (12/13/2022 8:21 AM EDT) Hepatitis C Antibody Nonreactive Nonreactive [facility] Comment:Antibodies to HCV no t detected; does not exclude early acuteHCV infection. 12/13/2022 8:21 AM EDT 12/13/2022 11:08 AM EDT us Gemini Chung MD LAB BLOOD ORDERABLES Final Result [facility] [address] [place] [address] [phone] from Last 3 Months or Most Recently Relevant to Health Maintenance Insurance [facility] [employer] OPTIONS (HMO D-SNP) [facility] Care Teams Inhalation Therapy Aides Teacher Relationship Specialty Start Date End Date Gemini Chavez MD [address] [place] [address] PCP - General Family Medicine 01/21/18 [employer] 03/28/24
--- OUTSIDE RECORDS SUMMARY | 2025-02-15 09:39 | XMS_ITS | Encounter Summary ---
Author Organization [employer] Address [address] [facility] 7t [place] [address] Care Team Providers Care Atmospheric Sciences Professor Name Role Phone Gemini Chavez MD Primary Care Provide r Reason for Visit * Reason Comments Med Refill Encounter Details Date Type Department Care Team ([facility] st Contact Info) Description 02/11/2025 Refill [facility] [address] [place], [place] [phone] Gemini Chavez MD [address] [place] [address] Hypertension, unspecified type Social History Tobacco Use [...] Description 03/23/2025 11:15 AM EST Office Visit [facility] [address] [place] [phone] Gemini Chavez MD [address] [place] [phone] documented as of this encounter Visit Diagnoses Diagnosis Hypertension, unspecified type documented in this encounter Additional Health Concerns Assessment Noted Time PHQ-9 Depression Total Score: 0 11/30/19 25 10:53 AM EDT documented as of this encounter Care Teams Atmospheric Sciences Professor Relationship Specialty Start Date End Date Gemini Chavez MD [address] [place] [phone] PCP - General Family Medicine 01/21/18 [employer] 03/28/24 documented as of this encounter
--- OUTSIDE RECORDS SUMMARY | 2025-02-15 09:39 | XMS_ITS | Encounter Summary ---
Author Organization [employer] Address [address] [facility] 7t [place] [address] Care Team Providers Care Naval Marine Engineer Name Role Phone Gemini Chavez MD Primary Care Provide r Reason for Visit * Reason Comments Med Change Request Encounter Details Date Type Department Care Team (Late st Contact Info) Description 02/04/2023 Refill [facility] [address] [place], [place] [phone] Marsha Menjivar MD [address] [place] [address] Primary hypertension Social History Tobacco Use Types [...] EST Office Visit [facility] [address] [place] [address] Gemini Chavez MD [address] [place] [address] documented as of this encounter Visit Diagnoses Diagnosis Primary hypertension Unspecified essential hypertension documented in this encounter Additional Health Concerns Assessment Noted Time PHQ-9 Depression Total Score: 6 05/16/19 23 1:42 PM EST documented as of this encounter Care Teams Naval Marine Engineer Relationship Specialty Start Date End Date Gemini Chavez MD [address] [place] [address] PCP - General Family Medicine 01/21/18 [email or web address] 03/28/24 documented as of this encounter
--- OUTSIDE RECORDS SUMMARY | 2025-02-15 09:39 | XMS_ITS | Encounter Summary ---
Author Organization [facility] Address [address] [place] [address] Phone Care Team Providers Care Rn Cardiac Name Role Phone Curt Richey MD Primary Care Provider + Encounter Details Date Type Department Care Team (Late st Contact Info) Description 12/24/2019 Ancillary Orders [facility] [address] [facility] [address] Floor, [address] [place] [address] Curt Richey MD [address] [place] [address] [email or web address] Social History Tobacco Use Types Packs/Day Years [...] on filedocumented in this encounter Care Teams Rn Cardiac Relationship Specialty Start Date End Date Curt Richey MD [email or web address] PCP - General Cardiology 12/21/19 documented as of this encounter Additional Source Comments The information contained in this document represents components of the legal health record. It is not the complete legal health record.[facility]
--- OUTSIDE RECORDS SUMMARY | 2025-02-15 09:39 | XMS_ITS | Encounter Summary ---
Author Organization [employer] Address [address] [facility] 7t [place] [address] Care Team Providers Care Loan Manager Name Role Phone Gemini Chavez MD Primary Care Provide r Reason for Visit * Reason Onset Date Comments Nurse Triage 03/26/2023 Encounter Details Date Type Department Care Team ([facility] st Contact Info) Description 03/26/2023 Telephone [facility] [address] [place], [place] [phone] Gemini Chavez MD [address] [place] [address] Nurse Triage Social History Tobacco Use Types [...] 03/26/2023 11:47 AM EST Triage call with [place] [id number] Pt reports ingrown toenail great toe on left foot for 3 days now. Pt reports it is painful and causes some limping when ambulating. Pt denies redness, drainage. Pt requests a referral to crude tester which was very helpful last time this happened. Pt is advised will send this request to PCP and nursing team for follow up and Pt agreed. Pt declined to come to [facility] only wants crude tester to cut this toenail. Protocol Used: Information [...] accepted this outcome Please contact pt at [phone] (environmental services manager needed) documented in this encounter Plan of Treatment Upcoming Encounters Date Type Department Care Team ([facility] st Contact Info) Description 03/23/2025 11:15 AM EST Office Visit [facility] [address] [place] [phone] Gemini Chavez MD [address] [place], [place] [phone] documented as of this encounter Visit Diagnoses Not on filedocumented in this encounter Additional Health Concerns Assessment Noted Time PHQ-9 Depression Total Score: 6 05/16/19 23 1:42 PM EST documented as of this encounter Care Teams Loan Manager Relationship Specialty Start Date End Date Gemini Chavez MD [address] [place], [place] [phone] PCP - General Family Medicine 01/21/18 [employer] 03/28/24 documented as of this encounter
--- OUTSIDE RECORDS SUMMARY | 2025-02-15 09:39 | XMS_ITS | Clinical Summary ---
Author Organization [address] [place] [address] Address [address] [place] [address] Phone Care Team Providers Care Coordinator Cardiopulmonary Services Name Role Phone Gemini Chavez MD Primary Care Provide r Allergies No known active allergies Encounters Date Type Department Care Team Description 11/22/2024 4:00 PM EDT Office Visit Orthopedic [facility] [address] [phone] Gallito Hancock DPM Cellulitis of great toe, left (Primary Dx); Ingrowing nail; Dermatophytosis of nail; Type II diabetes mellitus with peripheral circulatory disorder (CMS/HCC V24, CMS/HCC V28); Pain in toe of right foot; Pain in toe of left foot from Last 3 Months [...] 02/22/2025 2:45 PM EDT Office Visit Orthopedic [facility] [address] [phone] Gallito Hancock DPM [address] [address] Health Maintenance Due Date Last Done Comments Colorectal Cancer Screening: Colonoscopy 1955 Diabetes: Annual Foot Exam 11/18/1965 Diabetes: Annual Retina Eye Exam 11/18/1965 Hepatitis A Vaccines (1 of 2 - Risk 2-dose series) 11/18/1974 Zoster Vaccines (1 of 2) 11/18/2005 Hepatitis B Vaccines (1 of 3 - Risk 3-dose series) 2015 Abdominal Aortic Aneurysm (AAA) Screen 06/06/2023 Falls Risk Assessment 06/06/2023 Hepatitis C [...] complete this topic Insurance [place] [facility] Member Subscriber Plan / Payer (Ef fective 2022-Present) Name:Min Daily Relation to Subscriber:Self Name:Min Daily Payer ID:[id number] Group ID:[id number] Type:Not on file Address: [address] [place] [id number] Care Teams Coordinator Cardiopulmonary Services Relationship Specialty Start Date End Date Gemini Chavez MD [address] [phone] PCP - General 04/24/23
--- OUTSIDE RECORDS SUMMARY | 2025-02-15 09:39 | XMS_ITS | Encounter Summary ---
Author Organization [employer] [facility] Address [address] [facility] 7t [place] [address] Care Team Providers Care Center Punch Operator Name Role Phone Gemini Chavez MD Primary Care Provide r Reason for Visit * Reason Comments Med Refill Encounter Details Date Type Department Care Team (Late st Contact Info) Description 10/07/2022 Refill [facility] MED[facility]INE [address] [place], [place] [phone] Gemini Chavez MD [address] [place], [place] [phone] Chronic systolic heart failure (CMS/HCC) Social History [...] Description 03/23/2025 11:15 AM EST Office Visit [facility] [address] [place], [place] [phone] Gemini Chavez MD [address] [place] [address] documented as of this encounter Visit Diagnoses Diagnosis Chronic systolic heart failure (HCC) Chronic systolic heart failure documented in this encounter Additional Health Concerns Assessment Noted Time PHQ-9 Depression Total Score: 6 05/16/19 23 1:42 PM EST documented as of this encounter Care Teams Center Punch Operator Relationship Specialty Start Date End Date Gemini Chavez MD [address] [place] [address] PCP - General Family Medicine 01/21/18 [employer] 03/28/24 documented as of this encounter
--- OUTSIDE RECORDS SUMMARY | 2025-02-15 09:39 | XMS_ITS | Encounter Summary ---
Author Organization [employer] [facility] Address [address] [facility] 7t [place] [address] Care Team Providers Care Supervisor Plating And Point Assembly Name Role Phone Gemini Chavez MD Primary Care Provide r Encounter Details Date Type Department Care Team (Late st Contact Info) Description 01/22/2023 Orders Only [facility] MEDICINE [address] [place], [place] [phone] Gemini Chavez MD [address] [place], [place] [phone] COPD with asthma (CMS/HCC) Social History Tobacco [...] Office Visit [facility] MEDICINE [address] [place], [place] [phone] Gemini Chavez MD [address] [place], [place] [phone] documented as of this encounter Visit Diagnoses Diagnosis COPD with asthma (CMS/HCC) (HCC) documented in this encounter Additional Health Concerns Assessment Noted Time PHQ-9 Depression Total Score: 6 05/16/19 23 1:42 PM EST documented as of this encounter Care Teams Supervisor Plating And Point Assembly Relationship Specialty Start Date End Date Gemini Chavez MD [address] [place] [address] PCP - General Family Medicine 01/21/18 [facility] 03/28/24 documented as of this encounter
--- OUTSIDE RECORDS SUMMARY | 2025-02-15 09:39 | XMS_ITS | Encounter Summary ---
Author Organization [facility] Address [address] [facility] [address] [place] [address] Phone Care Team Providers Care Glost Kiln Operator Name Role Phone Curt Richey MD Primary Care Provider + Encounter Details Date Type Department Care Team (Latest Contact Info) Description 12/24/2019 Ancillary [facility] [address] [place] [address] [place] [address] Curt Richey MD [address] [place] [address] [email or web address] Atrial fibrillation, unspecified type Social History Tobacco [...] type documented in this encounter Care Teams Glost Kiln Operator Relationship Specialty Start Date End Date Curt Richey MD [email or web address] PCP - General Cardiology 12/21/19 documented as of this encounter Additional Source Comments The information contained in this document represents components of the legal health record. It is not the complete legal health record.[facility]
--- OUTSIDE RECORDS SUMMARY | 2025-02-15 09:39 | XMS_ITS | Encounter Summary ---
Author Organization [employer] Address [address] [facility] 7t [place] [address] Care Team Providers Care Cotton Dispatcher Name Role Phone Gemini Chavez MD Primary Care Provide r Encounter Details Date Type Department Care Team (Late st Contact Info) Description 07/10/2023 Orders Only [facility] MEDICINE 230 [place], [place] [phone] Gemini Chavez MD 230 [place], [place] [phone] Mixed stress and urge urinary incontinence (Primary [...] t he electric, gas, oil or water [employer] threatened to shut off services in your [...] Description 03/23/2025 11:15 AM EST Office Visit [facility] MED[facility] [address] [place] [address] Gemini Chavez MD [address] [place] [address] documented as of this encounter Visit Diagnoses Diagnosis Mixed stress and urge urinary incontinence- Primary Mixed incontinence urge and stress (male)(female) documented in this encounter Additional Health Concerns Assessment Noted Time PHQ-9 Depression Total Score: 6 05/16/19 23 1:42 PM EST documented as of this encounter Care Teams Cotton Dispatcher Relationship Specialty Start Date End Date Gemini Chavez MD [address] [place] [address] PCP - General Family Medicine 01/21/18 [employer] 03/28/24 documented as of this encounter
--- OUTSIDE RECORDS SUMMARY | 2025-02-15 09:39 | XMS_ITS | Encounter Summary ---
Author Organization [employer] Address [address] [facility] 7t [place] [address] Care Team Providers Care Card Hand Name Role Phone Gemini Chavez MD Primary Care Provide r Reason for Visit * Reason Comments Med Refill Encounter Details Date Type Department Care Team ([facility] st Contact Info) Description 10/16/2024 Refill [facility] MEDICINE 230 [place], [place] [phone] Gemini Chavez MD 230 [place] [address] Prediabetes Social History Tobacco Use Types Packs/Day [...] AM EST Office Visit [facility] [address] [place] [phone] Gemini Chavez MD [address] [place] [address] documented as of this encounter Visit Diagnoses Diagnosis Prediabetes Other abnormal glucose documented in this encounter Additional Health Concerns Assessment Noted Time PHQ-9 Depression Total Score: 0 09/03/19 24 9:55 AM EDT documented as of this encounter Care Teams Card Hand Relationship Specialty Start Date End Date Gemini Chavez MD [address] [place] [address] PCP - General Family Medicine 01/21/18 [employer] 03/28/24 documented as of this encounter
--- OUTSIDE RECORDS SUMMARY | 2025-02-15 09:39 | XMS_ITS | Patient Health Record ---
Author Organization [facility] Address [address] [place] [address] Care Team Providers Care Leather Grainer Name Role Phone Gemini Fisher M.D. Primary Care Provider Larry Angeles Jr Unavailable [phone] Katherine FORTE, Cipriano Unavailable Unavailable Allergies No Known Allergies Reason For Referral No Information Medications Medication SIG (Take, Route, Frequency, Duration) Notes Start Date End Date Status Creon [id number] UNIT TOME 2 C PSULAS POR V [...] Status W/U Status Risk Notes Problem Dysphagia (98629986) Dysphagia (R13.10) Active confirmed Problem 85734868 Dysphagia, unspecified type (R13.10) Active confirmed Problem 736605499 Abnormal barium swallow (R93.3) Active confirmed Problem 483401667 Gastroesophageal reflux disease, unspecified whether esophagitis present (K21.9) Active confirmed Problem 853400832 Presbyesophagus (K22.89) Active confirmed Plan Of Treatment Future Test Test Name Order Date UPPER GI ENDOSCOPY 03/13/2023 Insurance Providers Payer Name Payer Address Payer Phone Subscriber Number Group Number Insured Name Patient Relationship to Insured Coverage Start Date Coverage End Date [facility] [address] Attn Claims CLIFF Perez [id number] KOBE DAILY Self - patient is the insured Medical (General) History Medical History History ICD Code CE/COPD hypertension Fatty liver pulmonary nodule Elevated BMI Atrial fibrillation Hypothyroidism Gastroesophageal reflux disease/dysphagi a Surgical History Surgery Date(Month/Year) Cataract surgery Umbilical hernia repair Tonsillectomy
[2025-02-15 09:50] LABS: Resp Syncy Virus RNA Qual PCR NEGATIVE (Negative); SARS COV2 PCR INHOUSE NEGATIVE (Negative)
[2025-02-15] MEDS: Furosemide 40 MG/4 ML VIAL IVPUSH (10:22)
--- NOTE | 2025-02-15 10:44 | ECG_ITS ---
Test Reason : CP Blood Pressure : */* mmHG Vent. Rate : 114 BPM Atrial Rate : * BPM P-R Int : * ms QRS Dur : 78 ms QT Int : 310 ms P-R-T Axes : * 1 6 degrees QTcB Int : 427 ms Atrial fibrillation with rapid ventricular response Inferior infarct , age undetermined Abnormal ECG When compared with ECG of 15-Feb-2025 10:56, No significant change was found Referred By: Tavia Garcia Electronically Signed By: ANDIE DAVISON MD
[2025-02-15 12:18] LABS: Troponin-I High Sensitivity 4.1 ng/L (<3.5-35.0)
== END 2025-02-15 14:34 | disposition home or self-care (01) ==
PROVIDERS: Physician Assistant; Emergency Provider Emergency Medicine; PCP Internal Medicine
DX: J44.1 Chronic obstructive pulmonary disease with (acute) exacerbation (principal); I48.91 Unspecified atrial fibrillation; E11.9 Type 2 diabetes mellitus without complications; I11.0 Hypertensive heart disease with heart failure; I50.9 Heart failure, unspecified; Z79.01 Long term (current) use of anticoagulants; Z79.899 Other long term (current) drug therapy
CPT/HCPCS: 36415; 71046; 80048; 80076; 83735; 83880; 84484; 85025; 87637; 87651; 93005; 94640; 96374; 96375; 96376; 99285; J0616; J1938

== ENCOUNTER → 2025-02-15 08:16 | Outpatient (BNV) | payer OTHER, SELFPAY | PROVIDERS: Emergency Provider Emergency Medicine; PCP Internal Medicine; Visit Provider Internal Medicine Cardiovascular Disease | DX: I48.91 Unspecified atrial fibrillation (principal) | CPT/HCPCS: 93010 ==

== ENCOUNTER → 2025-02-15 08:41 | Outpatient (BNV) | payer OTHER, SELFPAY | PROVIDERS: Emergency Provider Emergency Medicine; PCP Internal Medicine; Visit Provider Radiology Diagnostic Radiology | DX: R06.02 Shortness of breath (principal); R05.9 Cough, unspecified | CPT/HCPCS: 71046 ==

== ENCOUNTER 2025-02-18 09:09 | Outpatient (REF) | payer OTHER, SELFPAY ==
--- NOTE | ~2025-02-18 | MR_ITS ---
EXAMINATION: MR SHOULDER WITHOUT CONTRAST, LEFT CLINICAL INFORMATION: Evaluate rotator cuff. COMPARISON: None available. TECHNIQUE: MRI of the shoulder without contrast was performed on a high-field scanner. FINDINGS: ROTATOR CUFF: Supraspinatus: Mild tendinosis. Possible small low-grade intrasubstance tear. Mild bursal surface fraying in the posterior fibers. Infraspinatus: Intact. Teres minor: Intact. Subscapularis: Intact No muscle atrophy or fatty infiltration. BICEPS: Intact CORACOACROMIAL ARCH: The undersurface of the acromion is flat with no subacromial spur. Mild acromioclavicular arthritis. Trace subacromial subdeltoid bursitis. LABRUM/CAPSULE: No labral tear is seen. Intact inferior capsule. GLENOHUMERAL JOINT/MARROW: No fracture. No aggressive marrow replacing lesion. No significant effusion. MR/MR shoulder LT wo con IMPRESSION: * Mild supraspinatus tendinosis. Possible small low-grade intrasubstance tear. Mild bursal surface fraying in the posterior fibers. * Mild acromioclavicular arthritis. * Additional findings as above Electronically signed by: Ric Pittman MD 02/18/2025 12:13 PM EDT
--- OUTSIDE RECORDS SUMMARY | 2025-02-18 09:36 | XMS_ITS | Patient Health Record ---
Author Organization [facility] Address [address] [place] [address] Care Team Providers Care Treating Machine Operator Name Role Phone Gemini Fisher M.D. Primary Care Provider Larry Angeles Jr Unavailable Cipriano Murphy MD Unavailable Unavailable Allergies No Known Allergies Reason For Referral No Information Medications Medication SIG (Take, Route, Frequency, Duration) Notes Start Date End Date Status Creon [id number] UNIT TOME 2 C PSULAS POR V A ORAL 4 TIMES A DAY FOR 30 DAYS ADMINISTER WITH MEALS AND/OR SNACKS Oral; Duration: 30 Active Simethicone Ultra Strength 1 80 MG Oral; Duration: 30 Active Flovent HFA 220 MCG/ACT Inhalation; Dura tion: 60 Active Furosemide 40 MG Oral; Duration: 90 Active Acetaminophen Extra Strength 500 MG TOME FAUSTINA TABLETA POR V A ORAL CADA SEIS HORAS CUANDO SEA NECESARIO MAX 8 TABS DAILY Oral; Duration: 5 Active Rosuvastatin Calcium 40 MG Oral; Duration: 90 Active Vitamin E 45 MG (100 UNIT) Oral; Duration: 30 Active Albuterol Sulfate (2.5 MG/3M L) 0.083% Inhalation; Duration: 17 Active Metoprolol Succinate ER 200 MG TOME FAUSTINA TABLETA POR V A ORAL TODOS LOS D Oral; Duration: 90 Active Lisinopril 40 MG Oral; Duration: 90 Active Vitamin D3 50 MCG (2000 UT) TOME FAUSTINA TAB FRAN TODOS LOS D Oral; Duration: 90 Active Levothyroxine Sodium 100 MCG Oral; Duration: 90 Active Zolpidem Tartrate 10 MG Oral; Duration: 30 Active Loratadine 10 MG TOME FAUSTINA TABLETA POR VIA ORAL TODOS LOS LANDEROS CUANDO SEA NECESARIO FOR ALLERGIES Oral; Duration: 90 Active hydroCHLOROthiazide 12.5 MG TOME FAUSTINA TAB FRAN TODOS LOS D Oral; Duration: 90 Active Meclizine HCl 25 MG PLEASE SEE ATTACHED FOR DETAILED DIRECTIONS Oral; Duration: 10 Active Pantoprazole Sodium 40 MG TOME FAUSTINA TABLE TA TODOS LOS D Oral; Duration: 90 Active clonazePAM 1 MG TOME FAUSTINA TABLETA DOS VECES AL D A CUANDO SEA NECESARIO Oral; Duration: 30 Active Incruse Ellipta 62.5 MCG/ACT INHALE 1 PU FF BY MOUTH EVERY DAY AT THE SAME TIME EACH DAY Inhalation; Duration: 30 Active Social History Tobacco Use: Social [...] Status W/U Status Risk Notes Problem Dysphagia (93716398) Dysphagia (R13.10) Active confirmed Problem Dysphagia (67735692) Dysphagia, unspecified type (R13.10) Active confirmed Problem Barium swallow abnormal (459833651) Abnormal barium swallow (R93.3) Active confirmed Problem Gastroesophageal reflux disease (753089500) Gastroesophageal reflux disease, unspecified whether esophagitis present (K21.9) Active confirmed Problem Presbyesophagus (137642204) Presbyesophagus (K22.89) Active confirmed Plan Of Treatment Future Test Test Name Order Date UPPER GI ENDOSCOPY 03/13/2023 Insurance Providers Payer Name Payer Address Payer Phone Subscriber Number Group Number Insured Name Patient Relationship to Insured Coverage Start Date Coverage End Date [facility] [address] Attn Claims CLIFF Perez [id number] KOBE DAILY Self - patient is the insured Medical (General) History Medical History History ICD Code CE/COPD hypertension Fatty liver pulmonary nodule Elevated BMI Atrial fibrillation Hypothyroidism Gastroesophageal reflux disease/dysphagi a Surgical History Surgery Date(Month/Year) Cataract surgery Umbilical hernia repair Tonsillectomy
--- OUTSIDE RECORDS SUMMARY | 2025-02-18 09:36 | XMS_ITS | Clinical Summary ---
Author Organization [address] [place] [address] Address [address] [place] [address] Phone Care Team Providers Care Information Management Officer Name Role Phone Gemini Chavez MD Primary Care Provide r Allergies No known active allergies Encounters Date Type Department Care Team Description 11/22/2024 4:00 PM EDT Office Visit Orthopedic Surgery [facility] [address] [address] Gallito Hancock DPM Cellulitis of [...] 02/22/2025 2:45 PM EDT Office Visit Orthopedic [facility] [address] [address] Gallito Hancock DPM [address] [address] Health Maintenance Due Date Last [...] complete this topic Insurance [place] - [place] [facility] Member Subscriber Plan / Payer (Ef fective 2022-Present) Name:Min Daily Relation to Subscriber:Self Name:Min Daily Payer ID:[id number] Group ID:[id number] Type:Not on file Address: [address] [place] [id number] Care Teams Information Management Officer Relationship Specialty Start Date End Date Gemini Chavez MD [address] [address] PCP - General 04/24/23
--- OUTSIDE RECORDS SUMMARY | 2025-02-18 09:36 | XMS_ITS | Clinical Summary ---
Author Organization [facility] Address [address] [facility] [address] [place] [address] Phone Care Team Providers Care Group Sales Representative Name Role Phone Curt Richey MD Primary [...] Medical Devices Not on file Insurance [address] [place] [id number] [facility] ONE CARE MEDICARE REPLACEMENT [employer] [place] [facility] MEDICARE REPLACEMENT MEDICARE REPLACEMENT CARE MEDICARE [place] [address] [place] [address] ONE CARE MEDICARE REPLACEMENT Care Teams Group Sales Representative Relationship Specialty Start Date End Date Curt Richey MD PCP - General Cardiology 12/21/19 Additional Source Comments The information contained in this document represents components of the legal health record. It is not the complete legal health record.[facility]
--- OUTSIDE RECORDS SUMMARY | 2025-02-18 09:36 | XMS_ITS | Encounter Summary ---
Author Organization [facility] Address [address] [facility] [address] [place] [address] Phone Care Team Providers Care Project Control Analyst Name Role Phone Curt Richey MD Primary Care Provider + Encounter Details Date Type Department Care Team (Latest Contact Info) Description 12/24/2019 Ancillary [facility] [address] [place] [address] [place] [address] Curt Richey MD [address] [place] [address] [email or web address] Atrial fibrillation, unspecified type Social History Tobacco [...] type documented in this encounter Care Teams Project Control Analyst Relationship Specialty Start Date End Date Curt Richey MD [email or web address] PCP - General Cardiology 12/21/19 documented as of this encounter Additional Source Comments The information contained in this document represents components of the legal health record. It is not the complete legal health record.[facility]
--- OUTSIDE RECORDS SUMMARY | 2025-02-18 09:36 | XMS_ITS | Encounter Summary ---
Author Organization [facility] Address [address] [place] [address] Phone Care Team Providers Care Blood Donor Unit Assistant Name Role Phone Curt Richey MD Primary Care Provider + Encounter Details Date Type Department Care Team (Late st Contact Info) Description 12/24/2019 Ancillary Orders [facility] [address] [facility] 3rd Floor, [address] [place] [address] Curt Richey MD [address] [place] [address] Social History Tobacco Use Types Packs/Day Years [...] on filedocumented in this encounter Care Teams Blood Donor Unit Assistant Relationship Specialty Start Date End Date Curt Richey MD PCP - General Cardiology 12/21/19 documented as of this encounter Additional Source Comments The information contained in this document represents components of the legal health record. It is not the complete legal health record.[facility]
== END 2025-02-18 09:10 | disposition home or self-care (01) ==
LOC: HO.MRI 09:09
PROVIDERS: PCP Internal Medicine; Visit Provider Physician Assistant
DX: S46.002D Unspecified injury of muscle(s) and tendon(s) of the rotator cuff of left shoulder, subsequent encounter (principal)
CPT/HCPCS: 73221

== ENCOUNTER → 2025-02-18 09:09 | Outpatient (BNV) | payer OTHER, SELFPAY | PROVIDERS: PCP Internal Medicine; Visit Provider Radiology Diagnostic Ultrasound | DX: M75.112 Incomplete rotator cuff tear or rupture of left shoulder, not specified as traumatic (principal); M19.012 Primary osteoarthritis, left shoulder | CPT/HCPCS: 73221 ==

== ENCOUNTER 2025-02-21 06:28 | Outpatient (REF) | payer OTHER, SELFPAY ==
--- OUTSIDE RECORDS SUMMARY | 2025-02-21 06:32 | XMS_ITS | Encounter Summary ---
Author Organization [employer] Address [address] [facility] 7t [place] [address] Care Team Providers Care Huller Operator Name Role Phone Gemini Chavez MD Primary Care Provide r Reason for Visit * Reason Comments Med Change Request Encounter Details Date Type Department Care Team (Late Contact Info) Description 01/08/[address] [facility] MEDICINE [address] [place], [place] [phone] Marsha Menjivar MD 230 [place] [address] Chronic obstructive pulmonary disease, unspecified COPD type (CMS/[facility]) Social History Tobacco Use Types [...] generated for Nebulizer signed and faxed to [facility] documented in this encounter Plan of Treatment Upcoming Encounters Date Type Department Care Team (Late st Contact Info) Description 03/23/2025 11:15 AM EST Office Visit [facility] MED[facility]INE [address] [place] [address] Gemini Chavez MD [address] [place] [address] documented as of this encounter Visit Diagnoses Diagnosis Chronic obstructive pulmonary disease, unspecified COPD type (CMS/HCC) ([facility]) documented in this encounter Additional Health Concerns Assessment Noted Time PHQ-9 Depression Total Score: 6 05/16/19 23 1:42 PM EST documented as of this encounter Care Teams Huller Operator Relationship Specialty Start Date End Date Gemini Chavez MD [address] [place] [address] PCP - General Family Medicine 01/21/18 [employer] 03/28/24 documented as of this encounter
--- OUTSIDE RECORDS SUMMARY | 2025-02-21 06:32 | XMS_ITS | Encounter Summary ---
Author Organization [employer] [facility] Address [address] [facility] 7t [place] [address] Care Team Providers Care Forest Law And Policy Professor Name Role Phone Gemini Chavez MD Primary Care Provide r Reason for Visit * Reason Comments Med Refill Encounter Details Date Type Department Care Team (Late Contact Info) Description 06/21/2022 Refill [facility] MED[facility]INE [address] [place] [phone] Marsha Menjivar MD [address] [place], [place] [phone] Chronic systolic heart failure (CMS/HCC) Social History [...] 11:15 AM EST Office Visit [facility] [address] [place] [phone] Gemini Chavez MD [address] [place] [address] documented as of this encounter Visit Diagnoses Diagnosis Chronic systolic heart failure (HCC) Chronic systolic heart failure documented in this encounter Additional Health Concerns Assessment Noted Time PHQ-9 Depression Total Score: 6 05/16/19 23 1:42 PM EST documented as of this encounter Care Teams Forest Law And Policy Professor Relationship Specialty Start Date End Date Gemini Chavez MD [address] [place] [address] PCP - General Family Medicine 01/21/18 [employer] 03/28/24 documented as of this encounter
--- OUTSIDE RECORDS SUMMARY | 2025-02-21 06:32 | XMS_ITS | Clinical Summary ---
Author Organization [employer] Address [address] [place] [address] 7t [place] [address] Care Team Providers Care Director Of Home Care Hospice Name Role Phone Gemini Chavez MD Primary [...] ANAPHYLAXIS AND CALL 911 2022 Active Creon [id number] units capsule delayed-release particles capsule Take 2 capsules by mouth 4 times daily. ADMINISTER WITH MEALS AND/OR SNACKS 2022 Active Fluticasone-Salmetero l 250-50 MCG/ACT aerosol powder Inhale 1 puff 2 times daily. 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 -on day of surgery can take BB and levothyroxine with a sip of water and to hold rest of meds -nurse staff to fax this note to surgeon COPD with asthma ([facility]) 01/22/2023 Assessment & Plan (11/29/2024 3:17 PM [...] Encounters Date Type Department Care Team Description 02/18/2025 Orders Only [facility] External Provider, [facility] 02/16/[address] [facility] [address] [place] [address] Gemini Chavez MD Nurse Triage 02/15/2025 Orders Only [facility] External Provider, [facility] 02/11/[address] [facility] [address] [place] [address] Gemini Chavez MD Hypertension, unspecified type 02/04/[address] [facility] [address] [place] [address] Gemini Chavez MD Acquired hypothyroidism 02/03/[address] [facility] [address] [place] [address] Gemini Chavez MD Fyi 02/02/2025 Orders Only GENERIC EXTERNAL DATA DEPARTMENT Provider, Generic External Data 01/31/[address] [facility] [address] [place] [address] Gemini Chavez MD Care Coordination (A Agency) 01/28/[address] [facility] [address] [place] [address] Gemini Chavez MD 01/27/[address] [facility] [address] [place] [address] Gemini Chavez MD Acquired hypothyroidism 01/20/2025 Orders Only GENERIC EXTERNAL DATA DEPARTMENT Provider, Generic External Data 01/18/2025 Telephone [facility] [address] [place], [place] [phone] Gemini Chavez MD NOV RECALL 12/22/[address] [facility] [address] [place] [address] Gemini Chavez MD Hypotension 12/16/[address] [facility] [address] [place] [address] Gemini Chavez MD Pure hypercholesterolemia 12/15/2024 10:30 AM EDT Office Visit [facility] [address] [place] [address] Jessica Ho NP Chronic left shoulder pain (Primary Dx); Acute reactive otitis externa of both ears 12/15/[address] [facility] [address] [place] [phone] Gemini Chavez MD telephone call 12/15/2024 Travel 12/14/[address] [facility] [address] [place] [phone] Gemini Chavez MD Nurse Triage 12/11/2024 Orders Only [facility] External Provider, [facility] 12/01/[address] [facility] [address] [place] [address] Gemini Chavez MD Prediabetes 12/01/[address] [facility] [address] [place] [phone] Gemini Chavez MD Primary hypertension 11/29/2024 11:00 AM EDT Office Visit [facility] [address] [place] [phone] Gemini Chavez MD Chronic left shoulder pain (Primary Dx); Hypertension, unspecified type; Chronic systolic heart failure (CMS/HCC); COPD with asthma ([facility]/HCC); Atrial fibrillation with RVR (CMS/HCC); Stage 3 chronic kidney disease, unspecified whether stage 3a or 3b CKD ([facility]/HCC); Prediabetes; Class 1 obesity due to excess calories with serious comorbidity and body mass index (BMI) of 34.0 to 34.9 in adult 11/29/[address] [facility] [address] [place] [phone] Gemini Chavez MD Prior Authorization (CCA PA: Claudia) 11/29/2024 Travel 11/26/[address] [address] Gemini Chavez MD Chartprep from Last 3 Months Immunizations Immunization Administration [...] AM EST Office Visit [facility] [address] [place] [address] Gemini Chavez MD [address] [place] [address] Health Maintenance Due Date Last Done Comments [...] Screening 12/15/2025 12/15/2024 Lipid Panel 05/03/2029 05/03/2024, 01/2024, 12/13/2022, Additional [...] Procedure Name Priority Date/Time Associated Diagnosis Comments MR SHOULDER WO CONTRAST LEFT Routine 02/18/2025 10:00 AM EDT HIGH SENSITIVITY TROPONIN I Routine 02/15/2025 11:52 AM EDT XR CHEST 2 VIEWS Routine 02/15/2025 9:30 AM EDT GLUCOSE, WHOLE BLOOD Routine 02/02/2025 9:24 AM [...] Recently Relevant to Health Maintenance Results * MR Shoulder w/o Contrast Left (02/18/2025 10:00 AM EDT) Anatomical Region Laterality Modality Upper Extremities, Shoulder Left Magn etic Resonance 02/18/2025 10:0 0 AM EDT Narrative 02/18/2025 12:15 PM EDT [place] [address] Magnetic Resonance Report Signed Patient: Min Rees MR#: [id number] : 1955 Acct:[id number] Age/Sex: 69 / M ADM Date: 02/18/25 Loc: HO.MRI Attending Dr: Mario Wild PA-C Ordering Physician: Mario Wild PA-C Date of Service: 02/18/25 Procedure(s): MR shoulder LT wo con Accession Number(s): [id number] cc: Gemini Chavez MD; Mario Wild PA-C Reason for Exam: S46.009A - Unspecified injury of muscle(s) and tendon(s) of the rotator ... EXAMINATION: MR SHOULDER WITHOUT CONTRAST, LEFT CLINICAL INFORMATION: Evaluate rotator cuff. COMPARISON: None available. TECHNIQUE: MRI of the shoulder without contrast was performed on a high-field scanner. FINDINGS: ROTATOR CUFF: Supraspinatus: Mild tendinosis. Possible small low-grade intrasubstance tear. Mild bursal surface fraying in the posterior fibers. Infraspinatus: Intact. Teres minor: Intact. Subscapularis: Intact No muscle atrophy or fatty infiltration. BICEPS: Intact CORACOACROMIAL ARCH: The undersurface of the acromion is flat with no subacromial spur. Mild acromioclavicular arthritis. Trace subacromial subdeltoid bursitis. LABRUM/CAPSULE: No labral tear is seen. Intact inferior capsule. GLENOHUMERAL JOINT/MARROW: No fracture. No aggressive marrow replacing lesion. No significant effusion. MR/MR shoulder LT wo con IMPRESSION: * Mild supraspinatus tendinosis. Possible small low-grade intrasubstance tear. Mild bursal surface fraying in the posterior fibers. * Mild acromioclavicular arthritis. * Additional findings as above Electronically signed by: Ric Pittman MD 02/18/2025 12:13 PM EDT Dictated By: Ric Pittman MD Signed By: <Electronically signed by Ric Pittman MD in OV> 02/18/25 1213 DD/ 1000 TD/TT: 02/18/25 1019 Safety Security Officer: RHODA Procedure Note Donotuseinterpreter, Image - 02/18/2025 [place] [address] Magnetic Resonance Report Signed Patient: Min Rees#: [id number] : 6Acct:[id number] Age/Sex: 69 / MADM Date: 02/18/25 Loc: HO.MRI Attending Dr: Mario Wild PA-C Ordering Physician: Mario Wild PA-C Date of Service: 02/18/25 Procedure(s): MR shoulder LT wo con Accession Number(s): [id number] cc: Gemini Chavez MD; Mario Wild PA-C Reason for Exam: S46.009A - Unspecified injury of muscle(s) and tendon(s)of the rotator ... EXAMINATION: MR SHOULDER WITHOUT CONTRAST, LEFT CLINICAL INFORMATION: Evaluate rotator cuff. COMPARISON: None available. TECHNIQUE: MRI of the shoulder without contrast was performed on a high-field scanner. FINDINGS: ROTATOR CUFF: Supraspinatus: Mild tendinosis. Possible small low-grade intrasubstance tear. Mild bursal surface fraying in the posterior fibers. Infraspinatus: Intact. Teres minor: Intact. Subscapularis: Intact No muscle atrophy or fatty infiltration. BICEPS: Intact CORACOACROMIAL ARCH: The undersurface of the acromion is flat with no subacromial spur. Mild acromioclavicular arthritis. Trace subacromial subdeltoid bursitis. LABRUM/CAPSULE: No labral tear is seen. Intact inferior capsule. GLENOHUMERAL JOINT/MARROW: No fracture. No aggressive marrow replacing lesion. No significant effusion. MR/MR shoulder LT wo con IMPRESSION: * Mild supraspinatus tendinosis. Possible small low-grade intrasubstance tear. Mild bursal surface fraying in the posterior fibers. * Mild acromioclavicular arthritis. * Additional findings as above Electronically signed by: Ric Pittman MD 02/18/2025 12:13 PM EDT Dictated By: Ric Pittman MD Signed By: <Electronically signed by Ric Pittman MD in OV> 02/18/25 1213 DD/ 1000 TD/TT: 02/18/25 1019 Safety Security Officer: RHODA [facility] External Provider IMG MRI PROCEDURES Final Result * High Sensitivity Troponin I (02/15/2025 11:52 AM EDT) TROPONIN I HIGH SENSITIVITY 4.1 <3.5 - 35.0 ng/L [facility] Comment:The Ham high sens itivity Troponin-I results should beused in conjunction with other diagnostic information suchas ECG, clinical observations and information, and patientsymptoms to aid in the diagnosis of [place]. 02/15/2025 11:5 2 AM EDT 02/15/2025 11:56 AM EDT Generic External Data Provider LAB BLOOD ORDERAB LES Final Result [facility] [address] [place] [phone] * XR Chest 2 Views (02/15/2025 9:30 AM EDT) Anatomical Region Laterality Modality Chest Radiographic Claire ging 02/15/2025 9:30 AM EDT Narrative 02/15/2025 9:44 AM EDT [address] [address] XRay Report Signed Patient: Min Rees MR#: [id number] : 1955 Acct:[id number] Age/Sex: 69 / M ADM Date: 02/15/25 Loc: HO.ED Attending Dr: Ordering Physician: Tavia Garcia Date of Service: 02/15/25 Procedure(s): XR chest 2V Accession Number(s): [id number] cc: Gemini Chavez MD; Tavia Garcia Reason for Exam: sobb, cough EXAMINATION: XR CHEST 2 VIEWS HISTORY: sob, cough COMPARISON: Comparison is made with the prior examination dated 09/28/2024. FINDINGS: PA and lateral views of the chest are submitted. The lungs are expanded and clear. There is no pleural effusion, pneumothorax, or pulmonary vascular congestion. The heart is normal in size. There is calcification of the aorta. The bones are intact. XR/XR chest 2V IMPRESSION: No acute cardiopulmonary abnormality. Electronically signed by: Ras Zhao MD 02/15/2025 09:41 AM EDT RP Dictated By: Ras Zhao MD Signed By: <Electronically signed by Ras Zhao MD in OV> 02/15/2541 DD/ 9 TD/TT: 02/15/25934 Safety Security Officer: Procedure Note Donotuseinterpreter, Image - 02/15/2025 [place] [address] XRay Report Signed Patient: Min ReesMR#: [id number] : 1955cct:[id number] Age/Sex: 69 / MADM Date: 02/15/25 Loc: HO.ED Attending Dr: Ordering Physician: Tavia Garcia Date of Service: 02/15/25 Procedure(s): XR chest 2V Accession Number(s): [id number] cc: Gemini Chavez MD; Tavia Garcia Reason for Exam: sobb, cough EXAMINATION: XR CHEST 2 VIEWS HISTORY: sob, cough COMPARISON: Comparison is made with the prior examination dated 09/28/2024. FINDINGS: PA and lateral views of the chest are submitted. The lungs are expanded and clear. There is no pleural effusion, pneumothorax, or pulmonary vascular congestion. The heart is normal in size. There is calcification of the aorta. The bones are intact. XR/XR chest 2V IMPRESSION: No acute cardiopulmonary abnormality. Electronically signed by: Ras Zhao MD 02/15/2025 09:41 AM EDT RP Dictated By: Ras Zhao MD Signed By: <Electronically signed by Ras Zhao MD in OV> 02/15/[address] DD/ 9 TD/TT: 02/15/25934 Safety Security Officer: [facility] External Provider IMG XR PROCEDURES Final Result * (ABNORMAL) Glucose, Whole Blood (02/02/2025 9:24 AM EDT) Glucose, Whole Blood 125(H) 60 - 115 mg/dL [facility] Comment:METER #: [id number] 02/02/2025 9:24 AM EDT 02/02/2025 9:28 AM EDT Generic External Data Provider LAB BLOOD ORDERAB LES Final Result [facility] [address] [place] [phone] * (ABNORMAL) Basic Metabolic Panel (01/20/2025 3:40 PM EDT) Sodium 144 135 - 145 mmol/L [facility] Potassium 4.1 3.3 - 5.1 mmol/L [facility] Chloride 108 96 - 108 mmol/L [facility] Carbon Dioxide 25 22 - 29 mmol/L [facility] Anion Gap 15 12 - 20 [facility] Urea Nitrogen (BUN) 26(H) 9 - 16 mg/dL [facility] Creatinine, Serum 1.43(H) 0.5 - 1.4 mg/dL [facility] Estimated Glomerular Filt Rate 49 [facility] Comment:Chronic Kidney Disea se: Estimated GFR < 60 mL/min/1.51t3Vhagkf Kidney Disease: Estimated GFR < 15 mL/min/1.73m2 Glucose 73 60 - 115 mg/dL [facility] Calcium 9.5 8.4 - 10.2 mg/dL [facility] 01/20/2025 3:40 PM EDT 01/20/2025 3:40 PM EDT us Generic External Data Provider LAB BLOOD ORDERAB LES Final Result Performing Organization Address City/State/[facility] Co de Phone Number [facility] [address] [place] [phone] * XR Shoulder 2+ Views Left (12/11/2024 9:05 AM EDT) Anatomical Region Laterality Modality Upper Extremities, Shoulder Left Radi ographic Imaging 12/11/2024 9:05 AM EDT Narrative 12/11/2024 9:06 AM EDT [address] [address] XRay Report Signed Patient: Min Rees MR#: [id number] : 1955 Acct:[id number] Age/Sex: 69 / M ADM Date: 12/11/24 Loc: HO.ED Attending Dr: Ordering Physician: Zenaida Zaragoza MD Date of Service: 12/11/24 Procedure(s): XR shoulder LT min 2V Accession Number(s): [id number] cc: Gemini Chavez MD; Zenaida Zaragoza MD [...] in OV> 12/11/249[address] DD/ 4 TD/TT: 12/11/24904 Safety Security Officer: Procedure Note Donotuseinterpreter, Image - 12/11/[address] [address] XRay Report Signed Patient: Min ReesMR#: [id number] : 1955cct:[id number] Age/Sex: 69 / MADM Date: 12/11/24 Loc: HO.ED Attending Dr: Ordering Physician: Zenaida Zaragoza MD Date of Service: 12/11/24 Procedure(s): XR shoulder LT min 2V Accession Number(s): [id number] cc: Gemini Chavez MD; Zenaida Zaragoza MD [...] in OV> 12/11/24905 DD/ 4 TD/TT: 12/11/24904 Safety Security Officer: [facility] External Provider IMG XR PROCEDURES Edited Result - Final * (ABNORMAL) POCT HGB A1C (11/29/2024 11:22 AM EDT) Hemoglobin A1C 5.7 4.0 - 5.7 % QC Media Lot # [id number] Lot# Expiration Date [id number] Blood 11/29/2024 11:2 2 AM EDT us Gemini Chung MD POINT OF CARE TEST ENTER/EDIT ORDERABLES Edited Result - Final * POCT Glucose (11/29/2024 11:22 AM EDT) Glucose Blood, POC 178 60 - 200 mg/dL QC Media Lot # [id number] Lot# Expiration Date ,906,475 Blood Capillary blood specimen / Unknown 11/29/2024 11:22 AM EDT us Gemini Chung MD POINT OF CARE TEST ENTER/EDIT ORDERABLES Edited Result - Final * (ABNORMAL) Lipid Panel, Standard (05/03/2024 8:15 AM EST) Triglycerides 230(H) <150 mg/dL [facility] Comment:Desirable Triglyceri de: less than 150 mg/dLBorderline High Triglyceride 150-199 mg/dLHigh Triglyceride: 200-499 mg/dLVery High Triglyceride: greater than or equal to 5OO mg/dL Cholesterol 118 <200 mg/dL [facility] Comment:Desirable Cholestero l: less than 200 mg/dLBorderline High Cholesterol: 200-239 mg/dLHigh Cholesterol: greater than 239 mg/dL LDL Cholesterol Calculated 41 <100 mg/dL [facility] Comment:Desirable LDL: less than 100 mg/dLNear Optimal/Above Optimal LDL: 110- 129 mg/dLBorderline High LDL: 130-159 mg/dLHigh LDL: 160-189 mg/dLVery High LDL: greater than or equal to 190 mg/dL HDL Cholesterol 31(L) >40 mg/dL [facility] Comment:Desirable HDL: great er than 40 mg/dL Note: This HDL assay may give artificially low results in patients with liver disease. Blood Venous blood specimen / Unknown 05/03/2024 8:15 AM EST 05/03/2024 11:40 AM EST us Gemini Chung MD LAB BLOOD ORDERABLES Final Result Performing Organization Address [facility]/ZIP Co de Phone Number [facility] [address] [place] [phone] * Hm Colonoscopy (01/21/2024 10:19 AM EDT) Colonoscopy Normal Normal Narrative Jamila Page - 01/21/2024 10:19 AM EDT Repeat Colonoscopy in 6-12 months due to poor right prep or earlier if clinically indicated see external hospital admission note on 01/21/2024 Bryon Provider HEALTH MAINTENANCE Edited Result - Final * Hepatitis C Antibody Reflex (12/13/2022 8:21 AM EDT) Hepatitis C Antibody Nonreactive Nonreactive [facility] Comment:Antibodies to HCV no t detected; does not exclude early acuteHCV infection. 12/13/2022 8:21 AM EDT 12/13/2022 11:08 AM EDT us Gemini Chung MD LAB BLOOD ORDERABLES Final Result Performing Organization Address [facility] Co de Phone Number [facility] [address] [place] [address] [phone] from Last 3 Months or Most Recently Relevant to Health Maintenance Insurance [address] [place] [phone] [facility] ASSISTED OPTIONS (HMO D-SNP) [place] [id number] [facility] [address] [place] [address] [place] [phone] Care Teams Director Of Home Care Hospice Relationship Specialty Start Date End Date Gemini Chavez MD [address] [place] [phone] PCP - General Family Medicine 01/21/18 [employer] 03/28/24
--- OUTSIDE RECORDS SUMMARY | 2025-02-21 06:32 | XMS_ITS | Encounter Summary ---
Author Organization [email or web address] [facility] Address [address] [facility] 7t [place] [address] Care Team Providers Care Parts Department Manager Name Role Phone Gemini Chavez MD Primary Care Provide r Reason for Visit * Reason Comments Med Refill Encounter Details Date Type Department Care Team (Late st Contact Info) Description 10/07/2022 Refill [facility] [address] [place], [place] [phone] Gemini Chavez MD [address] [place], [place] [phone] Chronic systolic heart failure (CMS/HCC) Social History [...] Description 03/23/2025 11:15 AM EST Office Visit [facility] [address] [place], [place] [phone] Gemini Chavez MD [address] [place] [address] documented as of this encounter Visit Diagnoses Diagnosis Chronic systolic heart failure (HCC) Chronic systolic heart failure documented in this encounter Additional Health Concerns Assessment Noted Time PHQ-9 Depression Total Score: 6 05/16/19 23 1:42 PM EST documented as of this encounter Care Teams Parts Department Manager Relationship Specialty Start Date End Date Gemini Chavez MD [address] [place] [address] PCP - General Family Medicine 01/21/18 [employer] 03/28/24 documented as of this encounter
--- OUTSIDE RECORDS SUMMARY | 2025-02-21 06:32 | XMS_ITS | Encounter Summary ---
Author Organization [employer] Address [address] [facility] 7t [place] [address] Care Team Providers Care Piper Installer Name Role Phone Gemini Chavez MD Primary Care Provide r Encounter Details Date Type Department Care Team (Late st Contact Info) Description 07/10/[address] [facility] [address] [place], [place] [phone] Gemini Chavez MD [address] [place], [place] [phone] Mixed stress and urge urinary incontinence (Primary [...] t he electric, gas, oil or water [employer] threatened to shut off services in your [...] 03/23/2025 11:15 AM EST Office Visit [facility] [address] [place] [phone] Gemini Chavez MD [address] [place] [address] documented as of this encounter Visit Diagnoses Diagnosis Mixed stress and urge urinary incontinence- Primary Mixed incontinence urge and stress (male)(female) documented in this encounter Additional Health Concerns Assessment Noted Time PHQ-9 Depression Total Score: 6 05/16/19 23 1:42 PM EST documented as of this encounter Care Teams Piper Installer Relationship Specialty Start Date End Date Gemini Chavez MD [address] [place] [address] PCP - General Family Medicine 01/21/18 [employer] 03/28/24 documented as of this encounter
--- OUTSIDE RECORDS SUMMARY | 2025-02-21 06:32 | XMS_ITS | Encounter Summary ---
Author Organization [employer] Address [address] [facility] 7[address] [place] [address] Care Team Providers Care Photograph Inspector Name Role Phone Gemini Chavez MD Primary Care Provide r Reason for Visit * Reason Comments Med Refill Encounter Details Date Type Department Care Team (Late st Contact Info) Description 09/08/2022 Refill [facility] [address] [place], [place] [phone] Umer Sears MD [address] [place], [place] [phone] Seasonal allergies Social History Tobacco Use Types [...] Description 03/23/2025 11:15 AM EST Office Visit [facility] [address] [place], [place] [phone] Gemini Chavez MD [address] [place], [place] [phone] documented as of this encounter Visit Diagnoses Diagnosis Seasonal allergies Allergic rhinitis, cause unspecified documented in this encounter Additional Health Concerns Assessment Noted Time PHQ-9 Depression Total Score: 6 05/16/19 23 1:42 PM EST documented as of this encounter Care Teams Photograph Inspector Relationship Specialty Start Date End Date Gemini Chavez MD [address] [place] [address] PCP - General Family Medicine 01/21/18 [employer] 03/28/24 documented as of this encounter
--- OUTSIDE RECORDS SUMMARY | 2025-02-21 06:32 | XMS_ITS | Clinical Summary ---
Author Organization [address] [place] [address] Address [address] [place] [address] Phone Care Team Providers Care Darkroom Technician Name Role Phone Gemini Chavez MD Primary Care Provide r Allergies No known active allergies Encounters Date Type Department Care Team Description 11/22/2024 4:00 PM EDT Office Visit Orthopedic [facility] [address] [phone] Gallito Hancock DPM Cellulitis of [...] 02/22/2025 2:45 PM EDT Office Visit Orthopedic [facility] [address] [phone] Gallito Hancock DPM [address] [phone] Health Maintenance Due Date Last [...] complete this topic Insurance MEDICAID - [place] [facility] Member Subscriber Plan / Payer (Ef fective 2022-Present) Name:Min Daily Relation to Subscriber:Self Name:Min Daily Payer ID:[id number] Group ID:[id number] Type:Not on file Address: [address] [place] [id number] Care Teams Darkroom Technician Relationship Specialty Start Date End Date Gemini Chavez MD [address] [phone] PCP - General 04/24/23
--- OUTSIDE RECORDS SUMMARY | 2025-02-21 06:32 | XMS_ITS | Encounter Summary ---
Author Organization [employer] [facility] Address 75 [facility] 7t [place] [address] Care Team Providers Care Chief Analytics Officer Name Role Phone Gemini Chavez MD Primary Care Provide r Encounter Details Date Type Department Care Team (Late st Contact Info) Description 01/22/2023 Orders Only [facility] MEDICINE [address] [place], [place] [phone] Gemini Chavez MD 230 [place], [place] [phone] COPD with asthma (CMS/HCC) Social History Tobacco [...] Office Visit [facility] 230 [place], [place] [phone] Gemini Chavez MD 230 [place], [place] [phone] documented as of this encounter Visit Diagnoses Diagnosis COPD with asthma (CMS/HCC) (HCC) documented in this encounter Additional Health Concerns Assessment Noted Time PHQ-9 Depression Total Score: 6 05/16/19 23 1:42 PM EST documented as of this encounter Care Teams Chief Analytics Officer Relationship Specialty Start Date End Date Gemini Chavez MD 230 [place] [address] PCP - General Family Medicine 01/21/18 [employer] 03/28/24 documented as of this encounter
--- OUTSIDE RECORDS SUMMARY | 2025-02-21 06:32 | XMS_ITS | Encounter Summary ---
Author Organization [employer] Address 75 [facility] 7t [place] [address] Care Team Providers Care Supervisor Hydrochloric Area Name Role Phone Gemini Chavez MD Primary Care Provide r Reason for Visit * Reason Comments Med Refill Encounter Details Date Type Department Care Team ([facility] st Contact Info) Description 02/12/2024 Refill [facility] MEDICINE 230 [place], [place] [phone] Gemini Chavez MD 230 [place] [address] Prediabetes Social History Tobacco Use Types Packs/Day [...] is your housing situation today? I have huebrt doshi 10/31/[address] you [...] Description 03/23/2025 11:15 AM EST Office Visit [facility] MEDICINE [address] [place] [address] Gemini Chavez MD [address] [place] [address] documented as of this encounter Visit Diagnoses Diagnosis Prediabetes Other abnormal glucose documented in this encounter Additional Health Concerns Assessment Noted Time PHQ-9 Depression Total Score: 0 09/03/19 24 9:55 AM EDT documented as of this encounter Care Teams Supervisor Hydrochloric Area Relationship Specialty Start Date End Date Gemini Chavez MD [address] [place] [address] PCP - General Family Medicine 01/21/18 [employer] 03/28/24 documented as of this encounter
--- OUTSIDE RECORDS SUMMARY | 2025-02-21 06:32 | XMS_ITS | Encounter Summary ---
Author Organization [employer] Address 75 [facility] 7t [place] [address] Care Team Providers Care Harvesting Contractor Name Role Phone Gemini Chavez MD Primary Care Provide r Reason for Visit * Reason Onset Date Comments Prior Authorization 06/10/2024 Encounter Details Date Type Department Care Team ([facility] st Contact Info) Description 06/10/2024 Telephone [facility] MEDICINE 230 [place], [place] [phone] Gemini Chavez MD [address] [place] [address] Prior Authorization Social History Tobacco Use Types [...] is required on PA. Contact pt at [phone] (anguillan) * Telephone Encounter - Rohit Cruz - 06/10/2024 9:00 AM EST Tc from pt requesting a PA for Tirzepatide-Weight Management (Zepbound) 2.5 MG/0.5ML solution auto-injector because pt stated that he received a letter stating that PA got denied. Contact pt: [phone] (Ukrainian) documented in this encounter Plan of Treatment Upcoming Encounters Date Type Department Care Team (Late st Contact Info) Description 03/23/2025 11:15 AM EST Office Visit [facility] MEDICINE 230 [place], [place] [phone] Gemini Chavez MD [address] [place] [address] documented as of this encounter Visit Diagnoses Not on filedocumented in this encounter Additional Health Concerns Assessment Noted Time PHQ-9 Depression Total Score: 0 09/03/19 9:55 AM EDT documented as of this encounter Care Teams Harvesting Contractor Relationship Specialty Start Date End Date Gemini Chavez MD [address] [place] [address] PCP - General Family Medicine 01/21/18 [employer] 03/28/24 documented as of this encounter
--- OUTSIDE RECORDS SUMMARY | 2025-02-21 06:32 | XMS_ITS | Encounter Summary ---
Author Organization [employer] Address 75 [facility] 7t [place] [address] Care Team Providers Care Water Resource Manager Name Role Phone Gemini Chavez MD Primary Care Provide r Reason for Visit * Reason Comments Med Refill Encounter Details Date Type Department Care Team ([facility] st Contact Info) Description 02/12/2024 Refill [facility] MEDICINE 230 [place], [place] [phone] Gemini Chavez MD 230 [place] [address] Prediabetes Social History Tobacco Use Types Packs/Day [...] EST Office Visit [facility] MEDICINE [address] [place] [address] Gemini Chavez MD [address] [place] [address] documented as of this encounter Visit Diagnoses Diagnosis Prediabetes Other abnormal glucose documented in this encounter Additional Health Concerns Assessment Noted Time PHQ-9 Depression Total Score: 0 09/03/19 24 9:55 AM EDT documented as of this encounter Care Teams Water Resource Manager Relationship Specialty Start Date End Date Gemini Chavez MD [address] [place] [address] PCP - General Family Medicine 01/21/18 [employer] 03/28/24 documented as of this encounter
--- OUTSIDE RECORDS SUMMARY | 2025-02-21 06:32 | XMS_ITS | Encounter Summary ---
Author Organization [employer] Address 75 [facility] 7t [place] [address] Care Team Providers Care Jig Hand Name Role Phone Gemini Chavez MD Primary Care Provide r Reason for Visit * Reason Comments Med Refill Encounter Details Date Type Department Care Team ([facility] st Contact Info) Description 03/03/2024 Refill [facility] 230 [place], [place] [phone] Gemini Chavez MD 230 [place], [place] [phone] Social History Tobacco Use Types Packs/Day Years [...] Description 03/23/2025 11:15 AM EST Office Visit [facility] MEDICINE [address] [place] [address] Gemini Chavez MD [address] [place] [address] documented as of this encounter Visit Diagnoses Not on filedocumented in this encounter Additional Health Concerns Assessment Noted Time PHQ-9 Depression Total Score: 0 09/03/19 24 9:55 AM EDT documented as of this encounter Care Teams Jig Hand Relationship Specialty Start Date End Date Gemini Chavez MD [address] [place] [address] PCP - General Family Medicine 01/21/18 [employer] 03/28/24 documented as of this encounter
--- OUTSIDE RECORDS SUMMARY | 2025-02-21 06:32 | XMS_ITS | Encounter Summary ---
Author Organization [employer] Address 75 [facility] 7t [place] [address] Care Team Providers Care Powder Nipper Name Role Phone Gemini Chavez MD Primary Care Provide r Reason for Visit * Reason Comments Med Refill Encounter Details Date Type Department Care Team ([facility] st Contact Info) Description 05/14/2024 Refill [facility] MEDICINE 230 [place], [place] [phone] Gemini Chavez MD 230 [place], [place] [phone] Class 1 obesity due to excess calories [...] 11:15 AM EST Office Visit [facility] MEDICINE [address] [place] [address] Gemini Chavez MD [address] [place] [address] documented as of this encounter Visit Diagnoses Diagnosis Class 1 obesity due to excess calories with serious comorbidity and body mass index (BMI) of 33.0 to 33.9 in adult documented in this encounter Additional Health Concerns Assessment Noted Time PHQ-9 Depression Total Score: 0 09/03/19 9:55 AM EDT documented as of this encounter Care Teams Powder Nipper Relationship Specialty Start Date End Date Gemini Chavez MD [address] [place] [address] PCP - General Family Medicine 01/21/18 [employer] 03/28/24 documented as of this encounter
--- OUTSIDE RECORDS SUMMARY | 2025-02-21 06:32 | XMS_ITS | Encounter Summary ---
Author Organization [employer] Address 75 [facility] 7t [place] [address] Care Team Providers Care Extruding Press Adjuster Name Role Phone Gemini Chavez MD Primary Care Provide r Encounter Details Date Type Department Care Team (Late st Contact Info) Description 02/19/2023 Abstract [facility] MEDICINE 230 [place], [place] [phone] Gemini Chavez MD 230 [place], [place] [phone] Social History Tobacco Use Types Packs/Day Years [...] Description 03/23/2025 11:15 AM EST Office Visit [facility] MEDICINE [address] [place] [address] Gemini Chavez MD 230 [place] [address] documented as of this encounter Visit Diagnoses Not on filedocumented in this encounter Additional Health Concerns Assessment Noted Time PHQ-9 Depression Total Score: 6 05/16/19 23 1:42 PM EST documented as of this encounter Care Teams Extruding Press Adjuster Relationship Specialty Start Date End Date Gemini Chavez MD 230 [place] [address] PCP - General Family Medicine 01/21/18 [employer] 03/28/24 documented as of this encounter
--- OUTSIDE RECORDS SUMMARY | 2025-02-21 06:32 | XMS_ITS | Patient Health Record ---
Author Organization [facility] Address [address] [place] [address] Care Team Providers Care Flat Surfacer Name Role Phone Gemini Fisher M.D. Primary Care Provider Larry Angeles Jr Unavailable Cipriano Murphy MD Unavailable Unavailable Allergies No Known Allergies Reason For Referral No Information Medications Medication SIG (Take, Route, Frequency, Duration) Notes Start Date End Date Status Creon [id number] UNIT TOME 2 C PSULAS POR V [...] 10 Active Pantoprazole Sodium 40 MG TOME AFUSTINA TABLE TA TODOS LOS D Oral; Duration: [...] Status W/U Status Risk Notes Problem Dysphagia (68493284) Dysphagia (R13.10) Active confirmed Problem Dysphagia (89155107) Dysphagia, unspecified type (R13.10) Active confirmed Problem Barium swallow abnormal (978310158) Abnormal barium swallow (R93.3) Active confirmed Problem Gastroesophageal reflux disease (388935869) Gastroesophageal reflux disease, unspecified whether esophagitis present (K21.9) Active confirmed Problem Presbyesophagus (541524444) Presbyesophagus (K22.89) Active confirmed Plan Of Treatment Future Test Test Name Order Date UPPER GI ENDOSCOPY 03/13/2023 Insurance Providers Payer Name Payer Address Payer Phone Subscriber Number Group Number Insured Name Patient Relationship to Insured Coverage Start Date Coverage End Date [facility] [address] Attn Claims CLIFF Perez [id number] KOBE DAILY Self - patient is the insured Medical (General) History Medical History History ICD Code CE/COPD hypertension Fatty liver pulmonary nodule Elevated BMI Atrial fibrillation Hypothyroidism Gastroesophageal reflux disease/dysphagi a Surgical History Surgery Date(Month/Year) Cataract surgery Umbilical hernia repair Tonsillectomy
--- OUTSIDE RECORDS SUMMARY | 2025-02-21 06:32 | XMS_ITS | Encounter Summary ---
Author Organization [employer] Address 75 [facility] 7t [place] [address] Care Team Providers Care Office Technology Professor Name Role Phone Gemini Chavez MD Primary Care Provide r Reason for Visit * Reason Onset Date Comments Appointment Request 08/21/2022 Encounter Details Date Type Department Care Team ([facility] st Contact Info) Description 08/21/[address] [facility] MEDICINE 230 [place], [place] [phone] Gemini Chavez MD 230 [place] [address] Appointment Request Social History Tobacco Use Types [...] an family emergency. Please contact pt at [phone] documented in this encounter Plan of Treatment Upcoming Encounters Date Type Department Care Team (Late st Contact Info) Description 03/23/2025 11:15 AM EST Office Visit [facility] MEDICINE 230 [place] [address] Gemini Chavez MD 230 [place] [address] documented as of this encounter Visit Diagnoses Not on filedocumented in this encounter Additional Health Concerns Assessment Noted Time PHQ-9 Depression Total Score: 6 05/16/19 23 1:42 PM EST documented as of this encounter Care Teams Office Technology Professor Relationship Specialty Start Date End Date Gemini Chavez MD [address] [place] [address] PCP - General Family Medicine 01/21/18 [employer] 03/28/24 documented as of this encounter
--- OUTSIDE RECORDS SUMMARY | 2025-02-21 06:32 | XMS_ITS | Encounter Summary ---
Author Organization [employer] Address 75 [facility] 7t [place] [address] Care Team Providers Care Professional Fee Coder Name Role Phone Gemini Chavez MD Primary Care Provide r Reason for Visit * Reason Onset Date Comments Referral 03/14/2023 Encounter Details Date Type Department Care Team ([facility] st Contact Info) Description 03/14/2023 Telephone [facility] MEDICINE 230 [place], [place] [phone] Gemini Chavez MD 230 [place], [place] [phone] Referral Social History Tobacco Use Types Packs/Day [...] t he electric, gas, oil or water [employer] threatened to shut off services in your [...] EST Office Visit [facility] MEDICINE 230 [place] [address] Gemini Chavez MD 230 [place] [address] documented as of this encounter Visit Diagnoses Not on filedocumented in this encounter Additional Health Concerns Assessment Noted Time PHQ-9 Depression Total Score: 6 05/16/19 23 1:42 PM EST documented as of this encounter Care Teams Professional Fee Coder Relationship Specialty Start Date End Date Gemini Chavez MD 230 [place] [address] PCP - General Family Medicine 01/21/18 [employer] 03/28/24 documented as of this encounter
--- OUTSIDE RECORDS SUMMARY | 2025-02-21 06:32 | XMS_ITS | Encounter Summary ---
Author Organization [employer] Address 75 [facility] 7t [place] [address] Care Team Providers Care Regional Owner Operator Truck Driver Name Role Phone Gemini Chavez MD Primary Care Provide r Reason for Visit * Reason Comments Med Change Request Encounter Details Date Type Department Care Team (Late st Contact Info) Description 02/04/2023 Refill [facility] [address] [place], [place] [phone] Marsha Menjivar MD 230 [place] [address] Primary hypertension Social History Tobacco Use Types [...] Office Visit [facility] MEDICINE 230 [place] [address] Gemini Chavez MD 230 [place] [address] documented as of this encounter Visit Diagnoses Diagnosis Primary hypertension Unspecified essential hypertension documented in this encounter Additional Health Concerns Assessment Noted Time PHQ-9 Depression Total Score: 6 05/16/19 23 1:42 PM EST documented as of this encounter Care Teams Regional Owner Operator Truck Driver Relationship Specialty Start Date End Date Gemini Chavez MD [address] [place] [address] PCP - General Family Medicine 01/21/18 [employer] 03/28/24 documented as of this encounter
--- OUTSIDE RECORDS SUMMARY | 2025-02-21 06:32 | XMS_ITS | Encounter Summary ---
Author Organization [employer] Address 75 [facility] 7t [place] [address] Care Team Providers Care Hat Liner Name Role Phone Gemini Chavez MD Primary Care Provide r Reason for Visit * Reason Onset Date Comments Nurse Triage 03/26/2023 Encounter Details Date Type Department Care Team ([facility] st Contact Info) Description 03/26/2023 Telephone [facility] MEDICINE 230 [place], [place] [phone] Gemini Chavez MD 230 [place] [address] Nurse Triage Social History Tobacco Use Types [...] 03/26/2023 11:47 AM EST Triage call with Terry Machine Hose Cutter [place] [id number] Pt reports ingrown toenail great toe on left foot for 3 days now. Pt reports it is painful and causes some limping when ambulating. Pt denies redness, drainage. Pt requests a referral to brand marketing specialist which was very helpful last time this happened. Pt is advised will send this request to PCP and nursing team for follow up and Pt agreed. Pt declined to come to [facility] only wants brand marketing specialist to cut this toenail. Protocol Used: Information [...] accepted this outcome Please contact pt at [phone] (loading unit operator crimping needed) documented in this encounter Plan of Treatment Upcoming Encounters Date Type Department Care Team ([facility] st Contact Info) Description 03/23/2025 11:15 AM EST Office Visit [facility] MEDICINE [address] [place] [address] [phone] Gemini Chavez MD 230 [place], [place] [phone] documented as of this encounter Visit Diagnoses Not on filedocumented in this encounter Additional Health Concerns Assessment Noted Time PHQ-9 Depression Total Score: 6 05/16/19 23 1:42 PM EST documented as of this encounter Care Teams Hat Liner Relationship Specialty Start Date End Date Gemini Chavez MD 230 [place], [place] [phone] PCP - General Family Medicine 01/21/18 [employer] 03/28/24 documented as of this encounter
--- OUTSIDE RECORDS SUMMARY | 2025-02-21 06:33 | XMS_ITS | Encounter Summary ---
Author Organization [employer] Address 75 [facility] 7t [place] [address] Care Team Providers Care Advertising Analyst Name Role Phone Gemini Chavez MD Primary Care Provide r Reason for Visit * Reason Comments Med Refill Encounter Details Date Type Department Care Team ([facility] st Contact Info) Description 10/16/2024 Refill [facility] MEDICINE 230 [place], [place] [phone] Gemini Chavez MD 230 [place] [address] Prediabetes Social History Tobacco Use Types Packs/Day [...] Description 03/23/2025 11:15 AM EST Office Visit [facility] MEDICINE [address] [place] [address] Gemini Chavez MD [address] [place] [address] documented as of this encounter Visit Diagnoses Diagnosis Prediabetes Other abnormal glucose documented in this encounter Additional Health Concerns Assessment Noted Time PHQ-9 Depression Total Score: 0 09/03/19 24 9:55 AM EDT documented as of this encounter Care Teams Advertising Analyst Relationship Specialty Start Date End Date Gemini Chavez MD [address] [place] [address] PCP - General Family Medicine 01/21/18 [employer] 03/28/24 documented as of this encounter
--- OUTSIDE RECORDS SUMMARY | 2025-02-21 06:33 | XMS_ITS | Encounter Summary ---
Author Organization [facility] Address [address] [facility] [address] [place] [address] Phone Care Team Providers Care Physician Aide Name Role Phone Curt Richey MD Primary Care Provider + Encounter Details Date Type Department Care Team (Latest Contact Info) Description 12/24/2019 Ancillary [facility] [address] [place] [address] [place] [address] Curt Richey MD [address] [place] [address] [email or web address] Atrial fibrillation, unspecified type Social [...] type documented in this encounter Care Teams Physician Aide Relationship Specialty Start Date End Date Curt Richey MD [email or web address] PCP - General Cardiology 12/21/19 documented as of this encounter Additional Source Comments The information contained in this document represents components of the legal health record. It is not the complete legal health record.[facility]
--- OUTSIDE RECORDS SUMMARY | 2025-02-21 06:33 | XMS_ITS | Encounter Summary ---
Author Organization [employer] Address 75 [facility] 7t [place] [address] Care Team Providers Care Classroom Instructor Name Role Phone Gemini Chavez MD Primary Care Provide r Encounter Details Date Type Department Care Team (Late st Contact Info) Description 02/18/2025 Orders Only [facility] External Provider, [facility] Social History Tobacco Use Types Packs/Day Years [...] Description 03/23/2025 11:15 AM EST Office Visit [facility] MEDICINE [address] [place] [address] Gemini Chavez MD 230 [place] [address] documented as of this encounter Procedures Procedure Name Priority Date/Time Associated Diagnosis Comments MR SHOULDER WO CONTRAST LEFT Routine 02/18/2025 10:00 AM EDT documented in this encounter Results * MR Shoulder w/o Contrast Left (02/18/2025 10:00 AM EDT) Anatomical Region Laterality Modality Upper Extremities, Shoulder Left Magn etic Resonance 02/18/2025 10:0 0 AM EDT Narrative 02/18/2025 12:15 PM EDT [address] [address] Magnetic Resonance Report Signed Patient: Min Rees MR#: [id number] : 1955 Acct:[id number] Age/Sex: 69 / M ADM Date: 02/18/25 Loc: HO.MRI Attending Dr: Mario Wild PA-C Ordering Physician: Mario Wild PA-C Date of Service: 02/18/25 Procedure(s): MR shoulder LT wo con Accession Number(s): [id number] cc: Gemini Chavez MD; Mario Wild PA-C [...] Ric Pittman MD 02/18/2025 12:13 PM EDT RP Dictated By: Ric Pittman MD Signed By: <Electronically signed by Ric Pittman MD in OV> 02/18/25 1213 DD/ 1000 TD/TT: 02/18/25 1019 Body Rolling Machine Tender: RHODA Procedure Note Donotuseinterpreter, Image - 02/18/[address] [address] Magnetic Resonance Report Signed Patient: Min Rees#: [id number] : 6Acct:[id number] Age/Sex: 69 / MADM Date: 02/18/25 Loc: HO.MRI Attending Dr: Mario Wild PA-C Ordering Physician: Mario Wild PA-C Date of Service: 02/18/25 Procedure(s): MR shoulder LT wo con Accession Number(s): [id number] cc: Gemini Chavez MD; Mario Wild PA-C [...] 02/18/25 1213 DD/ 1000 TD/TT: 02/18/25 1019 Body Rolling Machine Tender: RHODA [facility] External Provider IMG MRI PROCEDURES Final Result documented in this encounter Visit Diagnoses Not on filedocumented in this encounter Additional Health Concerns Assessment Noted Time PHQ-9 Depression Total Score: 0 11/30/19 10:53 AM EDT documented as of this encounter Care Teams Classroom Instructor Relationship Specialty Start Date End Date Gemini Chavez MD 230 [place] [address] PCP - General Family Medicine 01/21/18 [employer] 03/28/24 documented as of this encounter
--- OUTSIDE RECORDS SUMMARY | 2025-02-21 06:33 | XMS_ITS | Encounter Summary ---
Author Organization [employer] Address 75 [facility] 7t [place] [address] Care Team Providers Care Sanitation Associate Name Role Phone Gemini Chavez MD Primary Care Provide r Encounter Details Date Type Department Care Team (Late st Contact Info) Description 05/10/2024 Orders Only [facility] MEDICINE 230 [place], [place] [phone] Gemini Chavez MD 230 [place], [place] [phone] Stage 3 chronic kidney disease, unspecified whether [...] Description 03/23/2025 11:15 AM EST Office Visit [facility] MED[facility]INE [address] [place] [address] Gemini Chavez MD [address] [place] [address] documented as of this encounter Visit Diagnoses Diagnosis Stage 3 chronic kidney disease, unspecified whether stage 3a or 3b CKD (CMS/HCC) ([facility])- Primary Class 2 severe obesity due to excess calories with serious comorbidity and body mass index (BMI) of 38.0 to 38.9 in adult documented in this encounter Additional Health Concerns Assessment Noted Time PHQ-9 Depression Total Score: 0 09/03/19 9:55 AM EDT documented as of this encounter Care Teams Sanitation Associate Relationship Specialty Start Date End Date Gemini Chavez MD [address] [place] [address] PCP - General Family Medicine 01/21/18 [employer] 03/28/24 documented as of this encounter
--- OUTSIDE RECORDS SUMMARY | 2025-02-21 06:33 | XMS_ITS | Encounter Summary ---
Author Organization [employer] Address [address] [facility] 7t [place] [address] Care Team Providers Care Duct Cleaner Name Role Phone Gemini Chavez MD Primary Care Provide r Reason for Visit * Reason Comments Med Refill Encounter Details Date Type Department Care Team ([facility] st Contact Info) Description 05/08/2024 Refill [facility] MEDICINE 230 [place], [place] [phone] Gemini Chavez MD 230 [place] [address] Class 1 obesity due to excess calories [...] Visit [facility] MEDICINE [address] [place] [address] Gemini Chavez MD 230 [place] [address] documented as of this encounter Visit Diagnoses Diagnosis Class 1 obesity due to excess calories with serious comorbidity and body mass index (BMI) of 33.0 to 33.9 in adult documented in this encounter Additional Health Concerns Assessment Noted Time PHQ-9 Depression Total Score: 0 09/03/19 24 9:55 AM EDT documented as of this encounter Care Teams Duct Cleaner Relationship Specialty Start Date End Date Gemini Chavez MD [address] [place] [address] PCP - General Family Medicine 01/21/18 [employer] 03/28/24 documented as of this encounter
--- OUTSIDE RECORDS SUMMARY | 2025-02-21 06:33 | XMS_ITS | Clinical Summary ---
Author Organization [facility] Address [address] [facility] [address] [place] [phone] Phone Care Team Providers Care Vp Communications Name Role Phone Curt Richey MD Primary [...] Medical Devices Not on file Insurance [address] [place] [id number] [facility] [place] ONE CARE MEDICARE REPLACEMENT CLIFF [employer] [facility] MEDICARE REPLACEMENT MEDICARE REPLACEMENT CARE MEDICARE [place] [address] [place] [address] ONE CARE MEDICARE REPLACEMENT Care Teams Vp Communications Relationship Specialty Start Date End Date Curt Richey MD PCP - General Cardiology 12/21/19 Additional Source Comments The information contained in this document represents components of the legal health record. It is not the complete legal health record.[facility]
--- OUTSIDE RECORDS SUMMARY | 2025-02-21 06:33 | XMS_ITS | Encounter Summary ---
Author Organization [facility] Address [address] [place] [address] Phone Care Team Providers Care Professor Of Apologetics Name Role Phone Curt Richey MD Primary Care Provider + Encounter Details Date Type Department Care Team (Late st Contact Info) Description 12/24/2019 Ancillary Orders [facility] [address] [facility] 3rd Floor, [address] [place] [address] Curt Richey MD [address] [place] [address] Social History Tobacco Use Types Packs/Day Years [...] on filedocumented in this encounter Care Teams Professor Of Apologetics Relationship Specialty Start Date End Date Curt Richey MD PCP - General Cardiology 12/21/19 documented as of this encounter Additional Source Comments The information contained in this document represents components of the legal health record. It is not the complete legal health record.[facility]
--- OUTSIDE RECORDS SUMMARY | 2025-02-21 06:33 | XMS_ITS | Encounter Summary ---
Author Organization [employer] Address [address] [facility] 7t [place] [address] Care Team Providers Care Scaffolding Helper Name Role Phone Gemini Chavez MD Primary Care Provide r Reason for Visit * Reason Comments Med Refill Encounter Details Date Type Department Care Team (Late st Contact Info) Description 10/20/2023 Refill [facility] & PEDS [address] [place], [place] [phone] Gemini Chavez MD 230 [facility] [place] [address] Seasonal allergies Social History Tobacco Use Types [...] Description 03/23/2025 11:15 AM EST Office Visit [facility] MEDICINE [address] [place] [address] Gemini Chavez MD [address] [place] [address] documented as of this encounter Visit Diagnoses Diagnosis Seasonal allergies Allergic rhinitis, cause unspecified documented in this encounter Additional Health Concerns Assessment Noted Time PHQ-9 Depression Total Score: 0 09/03/19 9:55 AM EDT documented as of this encounter Care Teams Scaffolding Helper Relationship Specialty Start Date End Date Gemini Chavez MD [address] [place] [address] PCP - General Family Medicine 01/21/18 [employer] 03/28/24 documented as of this encounter
--- OUTSIDE RECORDS SUMMARY | 2025-02-21 06:33 | XMS_ITS | Encounter Summary ---
Author Organization [employer] Address [address] [facility] 7t [place] [address] Care Team Providers Care Women'S Activities Adviser Name Role Phone Gemini Chavez MD Primary Care Provide r Encounter Details Date Type Department Care Team (Late st Contact Info) Description 06/18/2024 Orders Only [facility] MEDICINE [address] [place], [place] [phone] Gemini Chavez MD 230 [place], [place] [phone] Social History Tobacco Use Types Packs/Day Years [...] Office Visit [facility] MEDICINE 230 [place] [address] Gemini Chavez MD 230 [place] [address] documented as of this encounter Visit Diagnoses Not on filedocumented in this encounter Additional Health Concerns Assessment Noted Time PHQ-9 Depression Total Score: 0 09/03/19 9:55 AM EDT documented as of this encounter Care Teams Women'S Activities Adviser Relationship Specialty Start Date End Date Gemini Chavez MD [address] [place] [address] PCP - General Family Medicine 01/21/18 [employer] 03/28/24 documented as of this encounter
--- OUTSIDE RECORDS SUMMARY | 2025-02-21 06:33 | XMS_ITS | Encounter Summary ---
Author Organization [employer] Address [address] [facility] 7t [place] [address] Care Team Providers Care Big Data Admin Name Role Phone Gemini Chavez MD Primary Care Provide r Reason for Visit * Reason Onset Date Comments Nurse Triage 02/16/2025 Encounter Details Date Type Department Care Team ([facility] st Contact Info) Description 02/16/2025 Telephone [facility] MEDICINE 230 [place] [address] Gemini Chavez MD 230 [place] [address] Nurse Triage Social History Tobacco Use Types [...] encounter Miscellaneous Notes * Telephone Encounter - Zoe Lopez RN - 02/16/2025 10:00 AM EDT Return call placed to the pt with S coagulating bath mixer #[id number] and another VM was left to call back the office * Telephone Encounter - Joni Grande - 02/16/2025 9:53 AM EDT Tc from pt requesting call back , stated call disconnected Contact pt at [phone] (argentine) * Telephone Encounter - Zoe Lopez RN - 02/16/2025 9:20 AM EDT TC placed to the pt and LVM to call back the office in regards to reported ED visit below * Telephone Encounter - Joni Grande - 02/16/2025 8:54 AM EDT Patient calling to report ED visit on : Date: 02/15 Hospital: [facility] Seen for: asthma , shortness of breath Symptomatic Yes *if yes message should go to Triage Patient advised will forward to team nurse for follow up Contact pt at [phone] (argentine) documented in this encounter Plan of Treatment Upcoming Encounters Date Type Department Care Team ([facility] st Contact Info) Description 03/23/2025 11:15 AM EST Office Visit [facility] MEDICINE 230 [place] [address] Gemini Chavez MD [address] [place] [address] documented as of this encounter Visit Diagnoses Not on filedocumented in this encounter Additional Health Concerns Assessment Noted Time PHQ-9 Depression Total Score: 0 11/30/19 25 10:53 AM EDT documented as of this encounter Care Teams Big Data Admin Relationship Specialty Start Date End Date Gemini Chavez MD [address] [place] [address] PCP - General Family Medicine 01/21/18 [employer] 03/28/24 documented as of this encounter
[2025-02-21 07:48] LABS: Anion Gap 12 (12-20); Blood Urea Nitrogen 26 mg/dL (9-16); Calcium 9.0 mg/dL (8.4-10.2); Carbon Dioxide 30 mmol/L (22-29); Chloride 105 mmol/L (96-108); Estimated Glomerular Filt Rate > 60; Potassium 3.4 mmol/L (3.3-5.1); Sodium 144 mmol/L (135-145)
== END 2025-02-21 06:29 | disposition home or self-care (01) ==
LOC: HO.LAB 06:28
PROVIDERS: PCP Internal Medicine; Visit Provider Internal Medicine Hypertension Specialist
DX: N18.9 Chronic kidney disease, unspecified (principal)
CPT/HCPCS: 36415; 80048

== ENCOUNTER 2025-02-28 11:18 | Outpatient (AMB) | payer OTHER, SELFPAY ==
--- NOTE | 2025-02-28 11:27 | MHC.OFFVIS ---
Intake Visit Reasons: OV-MR shoulder LT review Intake Note: Min is a 69 year old male who presents today for an MRI review of left shoulder. Patient reports his pain has gotten a little better since his last visit. Tube Building Machine Operator Required: Yes Tube Building Machine Operator Services: Tube Building Machine Operator Present Tube Building Machine Operator Name: Patricia ID#[id number] Allergies Iodinated Contrast Media (CONTRAST, IV) Allergy (Unknown, Verified 02/28/25 11:36) HIVES kiwi (KIWI) Allergy (Unknown, Verified 02/28/25 11:36) THROAT SWELLING HPI HPI OV-MR shoulder LT review: Details: 69-year-old gentleman returns to the office today for a follow-up left shoulder pain after MRI. He states the left shoulder is difficult to bring overhead and he has significant weakness. He does not recall any relief with the steroid injection as he is in constant discomfort. He did attend physical therapy with minimal relief. [facility] Medical History Diabetes Hoarseness Dysphagia Colon cancer screening Throat disorder Bronchitis CHF (congestive heart failure) Afib Allergic rhinitis COPD (chronic obstructive pulmonary disease) CE (obstructive sleep apnea) Obesity (BMI 30-39.9) Hypothyroid Anxiety Palpitation HTN (hypertension) Surgical History Hx of umbilical hernia repair History of surgery on arm Hx of eye surgery Hx of colonoscopy Hx of knee surgery Hx of tonsillectomy Family History Family/Other No problems noted. Social History Household Members: None Housing: Apartment Do you presently have visiting nurse or other home services: Yes Alcohol intake: former Patient Tobacco Use Status: Former Tobacco user Advance Directives Date on File: 08/11/23 service: No Review of Systems Const All systems reviewed & are unremarkable except as noted in HPI and below Physical Exam Const General: cooperative and no acute distress Orientation/consciousness: patient oriented x3 Resp Effort & Inspection: normal respiratory effort and able to speak in complete sentences Cardio Peripheral pulses: Peripheral pulses 2+ throughout Neuro General: patient oriented x3 Extrem Other: Left shoulder is normal to inspection. He has significant limitations with attempts at range of motion due to severe pain. I can passively forward flex him to 45 degrees. External rotation to 40 degrees. Positive Beavers and positive empty can when compared to contralateral side. He is unable to internally rotate. Results Reviewed Results Reviewed: MR shoulder LT wo con IMPRESSION: * Mild supraspinatus tendinosis. Possible small low-grade intrasubstance tear. Mild bursal surface fraying in the posterior fibers. * Mild acromioclavicular arthritis. * Additional findings as above Assessment & Plan Assessment & Plan (1) Left shoulder tendonitis: Code(s): M77.8 - Other enthesopathies, not elsewhere classified Category: Medical (2) Tear of left rotator cuff: Code(s): M75.102 - Unspecified rotator cuff tear or rupture of left shoulder, not specified as traumatic Category: Medical Plan The patient does have continued limitations with the left shoulder which would benefit from surgical intervention for optimal functioning. He has tried steroid injections along with physical therapy which has made no difference in his symptoms and daily function. I discussed with him the findings on MRI and how surgical intervention would consist of arthroscopic surgery to examine the cuff in the surrounding structures, decompress the subacromial space and if the rotator cuff is torn to the extent it would benefit from a repair we would do that as well. We discussed the procedure in detail along with the risks benefits and alternatives. Risks including but not limited to infection, injury to surrounding nerves and tissue and bone, small and large vessels, stiffness,need for further surgery, DVT/PE along with intraoperative complications including but not limited to . We discussed postoperative recovery which includes 6-12 weeks of rehab and caution. The patient does express understanding we would like to proceed with left shoulder arthroscopic subacromial decompression with possible rotator cuff repair with Dr. Ahumada. The patient will be booked accordingly. Medications: New celecoxib (Celebrex) 200 mg PO BID 60 caps 3RF 30 days Coding Level of Care Code Est Pt Level 4 (02465) Complex EM visit Add On G2211 Diagnoses Left shoulder tendonitis M77.8 Tear of left rotator cuff M75.102
--- OUTSIDE RECORDS SUMMARY | 2025-02-28 13:55 | XMS_ITS | Encounter Summary ---
Author Organization [employer] Address [address] [facility] 7t [place] [address] Care Team Providers Care Lumber Carrier Name Role Phone Gemini Chavez MD Primary Care Provide r Reason for Visit * Reason Onset Date Comments Prior Authorization 06/10/2024 Encounter Details Date Type Department Care Team ([facility] st Contact Info) Description 06/10/2024 Telephone [facility] MEDICINE 230 [place], [place] [phone] Gemini Chavez MD 230 [place] [address] Prior Authorization Social History Tobacco Use Types [...] is required on PA. Contact pt at [phone] (vietnamese) * Telephone Encounter - Rohit Cruz - 06/10/2024 9:00 AM EST Tc from pt requesting a PA for Tirzepatide-Weight Management (Zepbound) 2.5 MG/0.5ML solution auto-injector because pt stated that he received a letter stating that PA got denied. Contact pt: [phone] (Tuvaluan) documented in this encounter Plan of Treatment Upcoming Encounters Date Type Department Care Team (Late st Contact Info) Description 03/23/2025 11:15 AM EST Office Visit [facility] MEDICINE 230 [place], [place] [phone] Gemini Chavez MD 230 [place] [address] documented as of this encounter Visit Diagnoses Not on filedocumented in this encounter Additional Health Concerns Assessment Noted Time PHQ-9 Depression Total Score: 0 09/03/19 9:55 AM EDT documented as of this encounter Care Teams Lumber Carrier Relationship Specialty Start Date End Date Gemini Chavez MD 230 [place] [address] PCP - General Family Medicine 01/21/18 [employer] 03/28/24 documented as of this encounter
--- OUTSIDE RECORDS SUMMARY | 2025-02-28 13:55 | XMS_ITS | Encounter Summary ---
Author Organization [employer] Address [address] [facility] 7t [place] [address] Care Team Providers Care Sheet Fed Printer Name Role Phone Gemini Chavez MD Primary Care Provide r Reason for Visit * Reason Comments Med Refill Encounter Details Date Type Department Care Team ([facility] st Contact Info) Description 05/14/2024 Refill [facility] MEDICINE 230 [place], [place] [phone] Gemini Chavez MD 230 [place], [place] [phone] Class 1 obesity due to excess calories [...] AM EST Office Visit [facility] MEDICINE [address] [place] [address] Gemini Chavez MD [address] [place] [address] documented as of this encounter Visit Diagnoses Diagnosis Class 1 obesity due to excess calories with serious comorbidity and body mass index (BMI) of 33.0 to 33.9 in adult documented in this encounter Additional Health Concerns Assessment Noted Time PHQ-9 Depression Total Score: 0 09/03/19 9:55 AM EDT documented as of this encounter Care Teams Sheet Fed Printer Relationship Specialty Start Date End Date Gemini Chavez MD [address] [place] [address] PCP - General Family Medicine 01/21/18 [employer] 03/28/24 documented as of this encounter
--- OUTSIDE RECORDS SUMMARY | 2025-02-28 13:55 | XMS_ITS | Encounter Summary ---
Author Organization [employer] Address [address] [facility] 7t [place] [address] Care Team Providers Care Clinical Training Specialist Name Role Phone Gemini Chavez MD Primary Care Provide r Reason for Visit * Reason Comments Med Refill Encounter Details Date Type Department Care Team ([facility] st Contact Info) Description 02/12/2024 Refill [facility] 230 [place], [place] [phone] Gemini Chavez MD 230 [place] [address] Prediabetes Social History Tobacco Use Types Packs/Day [...] 03/23/2025 11:15 AM EST Office Visit [facility] MED[facility]INE [address] [place] [address] Gemini Chavez MD [address] [place] [address] documented as of this encounter Visit Diagnoses Diagnosis Prediabetes Other abnormal glucose documented in this encounter Additional Health Concerns Assessment Noted Time PHQ-9 Depression Total Score: 0 09/03/19 24 9:55 AM EDT documented as of this encounter Care Teams Clinical Training Specialist Relationship Specialty Start Date End Date Gemini Chavez MD [address] [place] [address] PCP - General Family Medicine 01/21/18 [employer] 03/28/24 documented as of this encounter
--- OUTSIDE RECORDS SUMMARY | 2025-02-28 13:55 | XMS_ITS | Encounter Summary ---
Author Organization [employer] Address [address] [facility] 7t [place] [address] Care Team Providers Care High Density Press Laborer Name Role Phone Gemini Chavez MD Primary Care Provide r Reason for Visit * Reason Comments Med Refill Encounter Details Date Type Department Care Team ([facility] st Contact Info) Description 03/03/2024 Refill [facility] 230 [place], [place] [phone] Gemini Chavez MD 230 [place], [place] [phone] Social History Tobacco Use Types Packs/Day Years [...] 03/23/2025 11:15 AM EST Office Visit [facility] MEDICINE [address] [place] [address] Gemini Chavez MD [address] [place] [address] documented as of this encounter Visit Diagnoses Not on filedocumented in this encounter Additional Health Concerns Assessment Noted Time PHQ-9 Depression Total Score: 0 09/03/19 24 9:55 AM EDT documented as of this encounter Care Teams High Density Press Laborer Relationship Specialty Start Date End Date Gemini Chavez MD [address] [place] [address] PCP - General Family Medicine 01/21/18 [employer] 03/28/24 documented as of this encounter
--- OUTSIDE RECORDS SUMMARY | 2025-02-28 13:55 | XMS_ITS | Encounter Summary ---
Author Organization [employer] Address [address] [facility] 7t [place] [address] Care Team Providers Care Water Resource Engineering Specialist Name Role Phone Gemini Chavez MD Primary Care Provide r Reason for Visit * Reason Onset Date Comments Appointment Request 08/21/2022 Encounter Details Date Type Department Care Team ([facility] st Contact Info) Description 08/21/2022 Telephone [facility] MEDICINE 230 [place], [place] [phone] Gemini Chavez MD 230 [place] [address] Appointment Request Social History Tobacco Use Types [...] an family emergency. Please contact pt at [phone] documented in this encounter Plan of Treatment Upcoming Encounters Date Type Department Care Team (Late st Contact Info) Description 03/23/2025 11:15 AM EST Office Visit [facility] MEDICINE 230 [place] [address] Gemini Chavez MD 230 [place] [address] documented as of this encounter Visit Diagnoses Not on filedocumented in this encounter Additional Health Concerns Assessment Noted Time PHQ-9 Depression Total Score: 6 05/16/19 23 1:42 PM EST documented as of this encounter Care Teams Water Resource Engineering Specialist Relationship Specialty Start Date End Date Gemini Chavez MD [address] [place] [address] PCP - General Family Medicine 01/21/18 [employer] 03/28/24 documented as of this encounter
--- OUTSIDE RECORDS SUMMARY | 2025-02-28 13:55 | XMS_ITS | Encounter Summary ---
Author Organization [employer] [facility] Address [address] [facility] [address] [place] [address] Care Team Providers Care Steam Pipe Fitter Name Role Phone Gemini Chavez MD Primary Care Provide r Reason for Visit * Reason Comments Med Refill Encounter Details Date Type Department Care Team (Late Contact Info) Description 06/21/2022 Refill [facility] MEDICINE [address] [place] [address] [phone] Marsha Menjivar MD 230 [place], [place] [phone] Chronic systolic heart failure (CMS/HCC) Social History [...] Description 03/23/2025 11:15 AM EST Office Visit [facility] MEDICINE [address] [place] [address] Gemini Chavez MD 230 [place] [address] documented as of this encounter Visit Diagnoses Diagnosis Chronic systolic heart failure (HCC) Chronic systolic heart failure documented in this encounter Additional Health Concerns Assessment Noted Time PHQ-9 Depression Total Score: 6 05/16/19 23 1:42 PM EST documented as of this encounter Care Teams Steam Pipe Fitter Relationship Specialty Start Date End Date Gemini Chavez MD 230 [place] [address] PCP - General Family Medicine 01/21/18 [employer] 03/28/24 documented as of this encounter
--- OUTSIDE RECORDS SUMMARY | 2025-02-28 13:55 | XMS_ITS | Encounter Summary ---
Author Organization [employer] Address [address] [facility] 7t [place] [address] Care Team Providers Care Chef'S Assistant Name Role Phone Gemini Chavez MD Primary Care Provide r Reason for Visit * Reason Comments Med Refill Encounter Details Date Type Department Care Team ([facility] st Contact Info) Description 02/12/2024 Refill [facility] MEDICINE 230 [place], [place] [phone] Gemini Chavez MD 230 [place] [address] Prediabetes Social History Tobacco Use Types Packs/Day [...] 11:15 AM EST Office Visit [facility] MEDICINE [address] [place] [address] Gemini Chavez MD [address] [place] [address] documented as of this encounter Visit Diagnoses Diagnosis Prediabetes Other abnormal glucose documented in this encounter Additional Health Concerns Assessment Noted Time PHQ-9 Depression Total Score: 0 09/03/19 24 9:55 AM EDT documented as of this encounter Care Teams Chef'S Assistant Relationship Specialty Start Date End Date Gemini Chavez MD [address] [place] [address] PCP - General Family Medicine 01/21/18 [employer] 03/28/24 documented as of this encounter
--- OUTSIDE RECORDS SUMMARY | 2025-02-28 13:56 | XMS_ITS | Encounter Summary ---
Author Organization [employer] [facility] Address [address] [facility] 7t [place] [address] Care Team Providers Care Account Analyst Name Role Phone Gemini Chavez MD Primary Care Provide r Encounter Details Date Type Department Care Team (Late st Contact Info) Description 01/22/2023 Orders Only [facility] MEDICINE 230 [place], [place] [phone] Gemini Chavez MD 230 [place], [place] [phone] COPD with asthma (CMS/HCC) Social History Tobacco [...] AM EST Office Visit [facility] MEDICINE 230 [place], [place] [phone] Gemini Chavez MD 230 [place], [place] [phone] documented as of this encounter Visit Diagnoses Diagnosis COPD with asthma (CMS/HCC) (HCC) documented in this encounter Additional Health Concerns Assessment Noted Time PHQ-9 Depression Total Score: 6 05/16/19 23 1:42 PM EST documented as of this encounter Care Teams Account Analyst Relationship Specialty Start Date End Date Gemini Chavez MD 230 [place] [address] PCP - General Family Medicine 01/21/18 [employer] 03/28/24 documented as of this encounter
--- OUTSIDE RECORDS SUMMARY | 2025-02-28 13:56 | XMS_ITS | Encounter Summary ---
Author Organization [employer] Address [address] [facility] 7t [place] [address] Care Team Providers Care De Icer Kit Assembler Name Role Phone Gemini Chavez MD Primary Care Provide r Reason for Visit * Reason Comments Med Refill Encounter Details Date Type Department Care Team (Late st Contact Info) Description 09/08/2022 Refill [facility] [address] [place], [place] [phone] Umer Sears MD [address] [place], [place] [phone] Seasonal allergies Social History Tobacco Use Types [...] 03/23/2025 11:15 AM EST Office Visit [facility] [address] [place], [place] [phone] Gemini Chavez MD [address] [place], [place] [phone] documented as of this encounter Visit Diagnoses Diagnosis Seasonal allergies Allergic rhinitis, cause unspecified documented in this encounter Additional Health Concerns Assessment Noted Time PHQ-9 Depression Total Score: 6 05/16/19 23 1:42 PM EST documented as of this encounter Care Teams De Icer Kit Assembler Relationship Specialty Start Date End Date Gemini Chavez MD [address] [place] [address] PCP - General Family Medicine 01/21/18 Socket (Work) 03/28/24 documented as of this encounter
--- OUTSIDE RECORDS SUMMARY | 2025-02-28 13:56 | XMS_ITS | Encounter Summary ---
Author Organization [employer] Address [address] [facility] 7t [place] [address] Care Team Providers Care Case Reviewer Name Role Phone Gemini Chavez MD Primary Care Provide r Reason for Visit * Reason Comments Med Change Request Encounter Details Date Type Department Care Team (Late Contact Info) Description 01/08/2023 Refill [facility] [address] [place], [place] [phone] Marsha Menjivar MD [address] [place] [address] Chronic obstructive pulmonary disease, unspecified COPD type (CMS/[facility]) Social History Tobacco Use Types [...] generated for Nebulizer signed and faxed to [facility] documented in this encounter Plan of Treatment Upcoming Encounters Date Type Department Care Team (Late st Contact Info) Description 03/23/2025 11:15 AM EST Office Visit [facility] [address] [place] [address] Gemini Chavez MD [address] [place] [address] documented as of this encounter Visit Diagnoses Diagnosis Chronic obstructive pulmonary disease, unspecified COPD type (CMS/HCC) ([facility]) documented in this encounter Additional Health Concerns Assessment Noted Time PHQ-9 Depression Total Score: 6 05/16/19 23 1:42 PM EST documented as of this encounter Care Teams Case Reviewer Relationship Specialty Start Date End Date Gemini Chavez MD [address] [place] [address] PCP - General Family Medicine 01/21/18 A[place]er 03/28/24 documented as of this encounter
--- OUTSIDE RECORDS SUMMARY | 2025-02-28 13:56 | XMS_ITS | Clinical Summary ---
Author Organization [employer] Address [address] [place] [address] 7t [place] [address] Care Team Providers Care Dumpcart Driver Name Role Phone Gemini Chavez MD [...] injection syringe INJECT 0.3 MG (0.3 ML) INTRAMUSCULAR LY EVERY 4 HOURS NEEDED FOR ANAPHYLAXIS AND CALL 911 2022 Active Creon [id number] units capsule delayed-release particles capsule Take 2 capsules by mouth 4 times daily. ADMINISTER WITH MEALS AND/OR SNACKS 2022 Active Fluticasone-Salmetero l 250-50 MCG/ACT aerosol powder Inhale 1 puff 2 times daily. 2023 Active Umeclidinium [place] (Incruse Ellipta) 62.5 MCG/ACT aerosol powderIndications:Chr onic obstructive pulmonary disease, unspecified COPD type (CMS/HCC) (HCC) Take 1 Inhalation. by mouth in the morning. Inhale 1 puff by inhalation route every day at the same time each day 30 each 3 2023 Active Semaglutide-Weight Management (Wegovy) 1 MG/0.5ML solution auto-injector INJECT ONE PEN (=1MG) SUBCUTANEOUSL Y ONCE A WEEK 2 mL 2023 Active [...] 09/03 Active Blood Glucose Monitoring Suppl (FreeStyle [place] Lite) w/Device kitIndications:Predia betes Use to test [...] 4 2024 Active lidocaine (Lidoderm) 5 % patchIndications:Supervisor Decorating haylee left shoulder pain Apply 1 patch topically Once per day. Remove & discard patch within 12 hours or as directed by MD. 14 patch 2024 Active rosuvastatin (Crestor) 40 [...] EVERY DAY 90 tablet 1 2024 Active predniSONE (Deltasone) 20 MG tabletIndications:Acu te exacerbation of COPD with asthma (CMS/[facility]) ([facility]) Take 2 tablets (40 mg) by mouth Once per day for 10 days. 20 tablet 03/04 Active guaiFENesin 200 MG tabletIndications:Acu te exacerbation of COPD with asthma ([facility]) ([facility]) Take 2 tablets (400 mg) by mouth every 4 (four) hours if needed for cough for up to 10 days. 30 suppository 03/04 Active Vitamin E 45 MG (100 UNIT) capsuleIndications:Ac quired hypothyroidism TOME 1 CAPSULA POR VIA ORAL CADA MANANA 30 capsule 11 02/04 Discontinued hydroCHLOROthiazide (HYDRODiuril) 25 MG tabletIndications:Hyp ertension, [...] being schedule yet Atrial fibrillation with RVR ([facility]) Assessment & Plan (11/29/2024 3:15 PM EDT): [...] TSH and contact him back Patient declines healthcare corporate account director appointment Prediabetes 05/19/2023 Assessment & Plan (11/29/2024 [...] will like to be re-evalauted for more RECREATIONAL DIRECTOR hours Preop examination 02/13/2023 Assessment & Plan [...] ideally next day of procedure--I called his crepe sole scourer-Dr Ely's # [phone] office and spoke w CLIFF rodriguez with plan to hold AC as rec above with no need for bridging. -on day of surgery can take BB and levothyroxine with a sip of water and to hold rest of meds -nurse staff to fax this note to surgeon COPD with asthma ([facility]) 01/22/2023 Assessment & Plan (11/29/2024 3:17 PM [...] Encounters Date Type Department Care Team Description 02/22/2025 8:40 AM EDT Office Visit [facility] [address] [place] [phone] Christal Edmonds MD Acute exacerbation of COPD with asthma ([facility]) ([facility]) (Primary Dx); Cough in adult 02/22/2025 Travel 02/21/2025 Telephone [facility] [address] [place] [phone] Gemini Chavez MD Nurse Triage; ER Follow-up 02/21/2025 Orders Only GENERIC EXTERNAL DATA DEPARTMENT Provider, Generic External Data 02/18/2025 Orders Only [facility] External Provider, [facility] 02/16/2025 Telephone [facility] [address] [place] [phone] Gemini Chavez MD Nurse Triage 02/15/2025 Orders Only [facility] External Provider, [facility] 02/11/2025 Refill [facility] [address] [place] [phone] Gemini Chavez MD Hypertension, unspecified type 02/04/2025 Refill [facility] [address] [place] [phone] Gemini Chavez MD Acquired hypothyroidism 02/03/2025 Telephone [facility] [address] [place] [phone] Gemini Chavez MD Fyi 02/02/2025 Orders Only GENERIC EXTERNAL DATA DEPARTMENT Provider, Generic External Data 01/31/2025 Patient Outreach [facility] [address] [place] [phone] Gemini Chavez MD Care Coordination (A Agency) 01/28/2025 Refill [facility] [address] [place] [address] Gemini Chavez MD 01/27/2025 Refill [facility] [address] [place] [address] Gemini Chavez MD Acquired hypothyroidism 01/20/2025 Orders Only GENERIC EXTERNAL DATA DEPARTMENT Provider, Generic External Data 01/18/2025 Telephone [facility] [address] [place] [address] Gemini Chavez MD NOV RECALL 12/22/2024 Telephone [facility] [address] [place] [address] Gemini Chavez MD Hypotension 12/16/2024 Refill [facility] [address] [place] [address] Gemini Chavez MD Pure hypercholesterolemia 12/15/2024 10:30 AM EDT Office Visit [facility] [address] [place] [address] Jessica Ho NP Chronic left shoulder pain (Primary Dx); Acute reactive otitis externa of both ears 12/15/2024 Telephone [facility] [address] [place] [address] Gemini Chavez MD telephone call 12/15/2024 Travel 12/14/2024 Telephone [facility] [address] [place] [address] Gemini Chavez MD Nurse Triage 12/11/2024 Orders Only [facility] External Provider, [facility] 12/01/2024 Refill [facility] [address] [place] [address] Gemini Chavez MD Prediabetes 12/01/2024 Refill [facility] [address] [place] [address] Gemini Chavez MD Primary hypertension 11/29/2024 11:00 AM EDT Office Visit [facility] [address] [place] [address] Gemini Chavez MD Chronic left shoulder pain (Primary Dx); Hypertension, unspecified type; Chronic systolic heart failure (CMS/HCC); COPD with asthma (CMS/HCC); Atrial fibrillation with RVR (CMS/HCC); Stage 3 chronic kidney disease, unspecified whether stage 3a or 3b CKD ([facility]/HCC); Prediabetes; Class 1 obesity due to excess calories with serious comorbidity and body mass index (BMI) of 34.0 to 34.9 in adult 11/29/2024 Telephone [facility] [address] [place] [address] Gemini Chavez MD Prior Authorization ([facility] PA: Claudia) 11/29/2024 Travel from Last 3 Months Immunizations Immunization Administration [...] Sign Reading Time Taken Comments Blood Pressure 127/83 02/22/2025 8:52 AM EDT Pulse 88 02/22/2025 8:52 AM EDT Temperature 36.8 C (98.3 F) 02/22/2025 8:52 AM EDT Respiratory Rate 18 02/22/2025 8:52 AM EDT Oxygen Saturation 99% 02/22/2025 8:52 AM EDT Inhaled Oxygen Concentration - - Weight 98.4 kg (217 lb) 02/22/2025 8:52 AM EDT Height 169.4 cm (5' 6.7 ) 12/15/2024 9:59 AM EDT Body Mass Index 34.29 12/15/2024 9:59 AM EDT Plan of Treatment Upcoming Encounters Date Type Department Care Team (Late st Contact Info) Description 03/23/2025 11:15 AM EST Office Visit [facility] [address] [place], [place] [phone] Gemini Chavez MD [address] [place], [place] [phone] Health Maintenance Due Date Last Done Comments [...] exists SDOH Screening 11/29/2025 11/29/2024 Tobacco Screening 02/22/2026 02/22/2025 Lipid Panel 05/03/2029 05/03/2024, 01/0 01/2024, 12/13/2022, [...] Procedure Name Priority Date/Time Associated Diagnosis Comments POCT RAPID STREP A Routine 02/22/2025 9: 09 AM EDT Cough in adult POCT INFLUENZA B (ID NOW RAPID MOLECULAR) Routine 02/22/2025 9:09 AM EDT Cough in adult POCT INFLUENZA A (ID NOW RAPID MOLECULAR) Routine 02/22/2025 9:09 AM EDT Cough in adult POCT RAPID COVID ANTIGEN Routine 02/22/2025 8:55 AM EDT Cough in adult BASIC METABOLIC PANEL Routine 02/21/2025 6:37 AM EDT MR SHOULDER WO CONTRAST LEFT Routine 02/18/2025 [...] Recently Relevant to Health Maintenance Results * Influenza B (ID NOW Rapid Molecular) (02/22/2025 9:09 AM EDT) Pathologist [facility] Influenza B Negative Negative, Indeterminate [facility] Swab 02/22/2025 9:09 AM EDT Christal Edmonds MD POINT OF CARE TEST ENTER/EDIT ORDERABLES Final Result [facility] [address] [place] [phone] * Influenza A (ID NOW Rapid Molecular) (02/22/2025 9:09 AM EDT) Pathologist [facility] Influenza A Negative Negative, Indeterminate [facility] Swab 02/22/2025 9:09 AM EDT Christal Edmonds MD POINT OF CARE TEST ENTER/EDIT ORDERABLES Final Result [facility] [address] [place] [address] [phone] * POCT rapid strep A manually resulted (02/22/2025 9:09 AM EDT) [facility] Rapid Strep A Screen Negative Negative, None Detected Swab 02/22/2025 9:09 AM EDT Christal Edmonds MD POINT OF CARE TEST ENTER/EDIT ORDERABLES Final Result * POCT Rapid COVID Ag (02/22/2025 8:55 AM EDT) [facility] Rapid COVID Ag Negative Swab 02/22/2025 8:55 AM EDT Christal Edmonds MD POINT OF CARE TEST ENTER/EDIT ORDERABLES Final Result * (ABNORMAL) Basic Metabolic Panel (02/21/2025 6:37 AM EDT) Only the most recent of2 resultswithin the time period is included. [facility] Sodium 144 135 - 145 mmol/L [facility] Potassium 3.4 3.3 - 5.1 mmol/L [facility] Chloride 105 96 - 108 mmol/L [facility] Carbon Dioxide 30(H) 22 - 29 mmol/L [facility] Anion Gap 12 12 - 20 [facility] Urea Nitrogen (BUN) 26(H) 9 - 16 mg/dL [facility] Creatinine, Serum 1.17 0.5 - 1.4 mg/dL [facility] Estimated Glomerular Filt Rate >60 [facility] Comment:Chronic Kidney Disea se: Estimated GFR < 60 mL/min/1.83f8Pzksvb Kidney Disease: Estimated GFR < 15 mL/min/1.73m2 Glucose 83 60 - 115 mg/dL [facility] Calcium 9.0 8.4 - 10.2 mg/dL [facility] 02/21/2025 6:37 AM EDT 02/21/2025 6:37 AM EDT us Generic External Data Provider LAB BLOOD ORDERAB LES Final Result [facility] [address] [place] [phone] * MR Shoulder w/o Contrast Left (02/18/2025 10:00 AM EDT) Anatomical Region Laterality Modality Upper Extremities, Shoulder Left Magn etic Resonance 02/18/2025 10:0 0 AM EDT Narrative 02/18/2025 12:15 PM EDT [address] [address] Magnetic Resonance Report Signed Patient: Min Rees MR#: [id number] : 1955 Acct:[id number] Age/Sex: 69 / M ADM Date: 02/18/25 Loc: HO.MRI Attending Dr: Mario Wild PA-C Ordering Physician: Mario Wild PA-C Date of Service: 02/18/25 Procedure(s): MR shoulder LT wo con Accession Number(s): [id number] cc: Gemini Chavez MD; Mario Wild PA-C [...] 02/18/25 1213 DD/ 1000 TD/TT: 02/18/25 1019 Day Habilitation Supervisor: RHODA Procedure Note Donotuseinterpreter, Image - 02/18/[address] [address] Magnetic Resonance Report Signed Patient: Min Rees#: [id number] : 1955cct:[id number] Age/Sex: 69 / MADM Date: 02/18/25 Loc: .MRI Attending Dr: Mario Wild PA-C Ordering Physician: Mario Wild PA-C Date of Service: 02/18/25 Procedure(s): MR shoulder LT wo con Accession Number(s): [id number] cc: Gemini Chavez MD; Mario Wild PA-C [...] 02/18/25 1213 DD/ 1000 TD/TT: 02/18/25 1019 Day Habilitation Supervisor: HB [facility] External Provider IMG MRI PROCEDURES Final Result * High Sensitivity Troponin I (02/15/2025 11:52 AM EDT) TROPONIN I HIGH SENSITIVITY 4.1 <3.5 - 35.0 ng/L [facility] Comment:The Ham high sens itivity Troponin-I results should beused in conjunction with other diagnostic information suchas ECG, clinical observations and information, and patientsymptoms to aid in the diagnosis of AL. 02/15/2025 11:5 2 AM EDT 02/15/2025 11:56 AM EDT Generic External Data Provider LAB BLOOD ORDERAB LES Final Result [facility] [address] [place] [phone] * XR Chest 2 Views (02/15/2025 9:30 AM EDT) Anatomical Region Laterality Modality Chest Radiographic Claire ging 02/15/2025 9:30 AM EDT Narrative 02/15/2025 9:44 AM EDT [address] [address] XRay Report Signed Patient: Min Rees MR#: [id number] : 1955 Acct:[id number] Age/Sex: 69 / M ADM Date: 02/15/25 Loc: HO.ED Attending Dr: Ordering Physician: Tavia Garcia Date of Service: 02/15/25 Procedure(s): XR chest 2V Accession Number(s): [id number] cc: Gemini Chavez MD; Tavia Garcia Reason [...] Ras Zhao MD 02/15/2025 09:41 AM EDT Dictated By: Ras Zhao MD Signed By: <Electronically signed by Ras Zhao MD in OV> 02/15/25940 DD/ 9 TD/TT: 02/15/25934 Day Habilitation Supervisor: Procedure Note Donotuseinterpreter, Image - 02/15/[address] [address] XRay Report Signed Patient: Min eResMR#: [id number] : 1955cct:[id number] Age/Sex: 69 / MADM Date: 02/15/25 Loc: HO.ED Attending Dr: Ordering Physician: Tavia Garcia Date of Service: 02/15/25 Procedure(s): XR chest 2V Accession Number(s): [id number] cc: Gemini Chavez MD; Tavia Garcia Reason [...] MD in OV> 02/15/2541 DD/ 9 TD/TT: 02/15/25 09 Day Habilitation Supervisor: us [facility] External Provider IMG XR PROCEDURES Final Result * (ABNORMAL) Glucose, Whole Blood (02/02/2025 9:24 AM EDT) Glucose, Whole Blood 125(H) 60 - 115 mg/dL [facility] Comment:METER #: [id number] 02/02/2025 9:24 AM EDT 02/02/2025 9:28 AM EDT Generic External Data Provider LAB BLOOD ORDERAB LES Final Result [facility] [address] [place] [phone] * XR Shoulder 2+ Views Left (12/11/2024 9:05 AM EDT) Anatomical Region Laterality Modality Upper Extremities, Shoulder Left Radi ographic Imaging 12/11/2024 9:05 AM EDT Narrative 12/11/2024 9:06 AM EDT [address] [address] XRay Report Signed Patient: Min Rees MR#: [id number] : 1955 Acct:[id number] Age/Sex: 69 / M ADM Date: 12/11/24 Loc: HO.ED Attending Dr: Ordering Physician: Zenaida Zaragoza MD Date of Service: 12/11/24 Procedure(s): XR shoulder LT min 2V Accession Number(s): [id number] cc: Gemini Chavez MD; Zenaida Zaragoza MD [...] MD in OV> 12/11/24905 DD/ 4 TD/TT: 12/11/24 09 Day Habilitation Supervisor: Procedure Note Donotuseinterpreter, Image - 12/11/[address] [address] XRay Report Signed Patient: Min ReesMR#: [id number] : 1955cct:[id number] Age/Sex: 69 / MADM Date: 12/11/24 Loc: HO.ED Attending Dr: Ordering Physician: Zenaida Zaragoza MD Date of Service: 12/11/24 Procedure(s): XR shoulder LT min 2V Accession Number(s): [id number] cc: Gemini Chavez MD; Zenaida Zaragoza MD [...] in OV> 12/11/24905 DD/ 4 TD/TT: 12/11/24904 Day Habilitation Supervisor: [facility] External Provider IMG XR PROCEDURES Edited Result - Final * (ABNORMAL) POCT HGB A1C (11/29/2024 11:22 AM EDT) Hemoglobin A1C 5.7 4.0 - 5.7 % QC Media Lot # [id number] Lot# Expiration Date 3541, Blood 11/29/2024 11:2 2 AM EDT Gemini Chung MD POINT OF CARE TEST ENTER/EDIT ORDERABLES Edited Result - Final * POCT Glucose (11/29/2024 11:22 AM EDT) Glucose Blood, POC 178 60 - 200 mg/dL QC Media Lot # [id number] Lot# Expiration Date 2029,206 Blood Capillary blood specimen / Unknown 11/29/2024 11:22 AM EDT Gemini Chung MD POINT OF CARE TEST ENTER/EDIT ORDERABLES Edited Result - Final * (ABNORMAL) Lipid Panel, Standard (05/03/2024 8:15 AM EST) Triglycerides 230(H) <150 mg/dL [facility] Comment:Desirable Triglyceri de: less than 150 mg/dLBorderline High Triglyceride 150-199 mg/dLHigh Triglyceride: 200-499 mg/dLVery High Triglyceride: greater than or equal to 5OO mg/dL Cholesterol 118 <200 mg/dL [facility] Comment:Desirable Cholestero l: less than 200 mg/dLBorderline High Cholesterol: 200-239 mg/dLHigh Cholesterol: greater than 239 mg/dL LDL Cholesterol Calculated 41 <100 mg/dL [facility] Comment:Desirable LDL: less than 100 mg/dLNear Optimal/Above Optimal LDL: 110- 129 mg/dLBorderline High LDL: 130-159 mg/dLHigh LDL: 160-189 mg/dLVery High LDL: greater than or equal to 190 mg/dL HDL Cholesterol 31(L) >40 mg/dL [facility] Comment:Desirable HDL: great er than 40 mg/dL Note: This HDL assay may give artificially low results in patients with liver disease. Blood Venous blood specimen / Unknown 05/03/2024 8:15 AM EST 05/03/2024 11:40 AM EST us Gemini Chung MD LAB BLOOD ORDERABLES Final Result [facility] [address] [place] [phone] * Hm Colonoscopy (01/21/2024 10:19 AM EDT) Colonoscopy Normal Normal Narrative Jamila Page - 01/21/2024 10:19 AM EDT Repeat Colonoscopy in 6-12 months due to poor right prep or earlier if clinically indicated see external hospital admission note on 01/21/2024 Historical Provider HEALTH MAINTENANCE Edited Result - Final * Hepatitis C Antibody Reflex (12/13/2022 8:21 AM EDT) Hepatitis C Antibody Nonreactive Nonreactive [facility] Comment:Antibodies to HCV no t detected; does not exclude early acuteHCV infection. 12/13/2022 8:21 AM EDT 12/13/2022 11:08 AM EDT Gemini Chung MD LAB BLOOD ORDERABLES Final Result [facility] [address] [place] [address] [phone] from Last 3 Months or Most Recently Relevant to Health Maintenance Insurance [facility] [employer] OPT[employer] (HMO D-SNP) [facility] STAND[facility] Care Teams Dumpcart Driver Relationship Specialty Start Date End Date Gemini Chavez MD [address] [facility] [place] [address] PCP - General Family Medicine 01/21/18 Saisei 03/28/24
--- OUTSIDE RECORDS SUMMARY | 2025-02-28 13:56 | XMS_ITS | Encounter Summary ---
Author Organization [facility] Address [address] [facility] [address]t [place] [address] Care Team Providers Care Professional Benefits Sales Consultant Name Role Phone Gemini Chavez MD Primary Care Provide r Reason for Visit * Reason Comments Med Refill Encounter Details Date Type Department Care Team (Late st Contact Info) Description 10/07/2022 Refill [facility] [address] [place], [place] [phone] Gemini Chavez MD [address] [place], [place] [phone] Chronic systolic heart failure (CMS/HCC) Social History [...] 11:15 AM EST Office Visit [facility] [address] [place], [place] [phone] Gemini Chavez MD [address] [place] [address] documented as of this encounter Visit Diagnoses Diagnosis Chronic systolic heart failure (HCC) Chronic systolic heart failure documented in this encounter Additional Health Concerns Assessment Noted Time PHQ-9 Depression Total Score: 6 05/16/19 23 1:42 PM EST documented as of this encounter Care Teams Professional Benefits Sales Consultant Relationship Specialty Start Date End Date Gemini Chavez MD [address] [place] [address] PCP - General Family Medicine 01/21/18 [employer] 03/28/24 documented as of this encounter
--- OUTSIDE RECORDS SUMMARY | 2025-02-28 13:56 | XMS_ITS | Clinical Summary ---
Author Organization [facility] Address 175 [place] [address] Phone Care Team Providers Care Material Flow Analyst Name Role Phone Gemini Chavez MD Primary Care Provide r Allergies Active Allergy Reactions Criticality Noted Date Comments Iodinated Contrast Media Hives 05/20/2023 Kiwi (Actinidia Chinensis) 7 Medications albuterol 2.5 mg /3 mL (0.083 %) nebulizer solution USE 1 VIAL VIA NEBULIZER 3 TIMES A DAY Active amLODIPine (NORVASC) 2.5 mg tablet Take 2 tablets (5 mg total) by mouth daily. 5 07/05/19 26 Active apixaban (ELIQUIS) 5 mg tablet TOME 1 TABLETA POR VIA ORAL DOS VECES AL СЕРГЕЙ 5 Active blood sugar diagnostic (FreeStyle Lite Strips) test strip USE TO TEST BLOOD SUGAR ONCE DAILY 5 Active FreeStyle [place] Lite monitoring kit USE TO TEST BLOOD SUGAR ONCE DAILY 5 Active Vitamin D3 50 mcg (2,000 unit) tablet TOME 1 TABLETA POR V A ORAL TODOS LOS D Active clonazePAM (KlonoPIN) 1 mg tablet TOME 1 TABLETA POR V A ORAL DOS VECES AL D A CUANDO SEA NECESARIO Active cyclobenzaprine (FLEXERIL) 10 mg tablet Take 1 tablet (10 mg total) by mouth. 4 Active hydroCHLOROthia zide 12.5 mg tablet TOME 1 TABLETA POR V A ORAL TODOS LOS D 5 Active L.acidoph,saliv a-B.bif-S.therm (ACIDOPHILUS PROBIOTIC BLEND) 175 mg capsule Take 1 capsule by mouth 1 (one) time each day. 5 Active FreeStyle Lancets 28 gauge lancets USE TO TEST BLOOD SUGAR ONCE DAILY Active lisinopril (PRINIVIL,ZESTR IL) 40 mg tablet TOME 1 TABLETA POR V A ORAL TODOS LOS D EN LA GUSTABO KUMAR Active Creon 36,000-114,000- 180,000 unit capsule,delayed release(DR/EC) TOME 2 C PSULAS POR V A ORAL CUATRO VECES AL D A Active metFORMIN (GLUCOPHAGE) 500 mg tablet TAKE 1 TABLET BY MOUTH WITH BREAKFAST AND EVENING MEAL Active metoprolol succinate (TOPROL-XL) 200 mg 24 hr tablet Take 1 tablet (200 mg total) by mouth 1 (one) time each day. 5 Active Encounters Date Type Department Care Team Description 02/22/2025 2:45 PM EDT Office Visit Orthopedic Surgery - [address] [address] Gallito Hancock, DPM Dermatophytosis of nail (Primary Dx); Ingrowing nail; Type II diabetes mellitus with peripheral circulatory disorder (CMS/HCC V24, CMS/HCC V28); Pain in toe of right foot; Pain in toe of left foot; Hammer toe of left foot; Acquired hammer toe of right foot; Diabetic mononeuropathy simplex (CMS/HCC V24, CMS/HCC V28) from Last 3 Months Social History [...] Care Team (Late st Contact Info) Description 05/25/2025 1:30 PM EST Office Visit Orthopedic Surgery - [place] [address] [address] Gallito Hancock, DPHollis [address] [address] Health Maintenance Due Date Last [...] of Health Screening 06/06/2023 Depression Screening 05/12/2024 COVID-19 Vaccine ( season) 2025 02/11/2024, 02/06/2023, 04/24/2022, Additional history exists Zoster Vaccines (2 of 2) 02/21/2025 12/27/2024 Diabetes: Annual Urine Albumin-Creatinine Ratio (uACR) 02/22/2025 Diabetes: Blood Sugar Control Test (HGBA1C) 06/01/2025 11/29/2024, 11/11/2023 Diabetes: Annual GFR (Glomerular Filtration Rate) 02/21/2026 02/21/2025, 01/20/2025, 10/01/2024, Additional history exists Hypertension/CHF/CAD Annual BMP Blood Test 02/21/2026 02/21/2025, 01/20/2025, 10/01/2024, Additional history exists Cholesterol Screening (Lipid Panel) 05/03/2029 05/03/2024 DTaP,Tdap,and Td Vaccines (5 - Td or Tdap) 04/10/2031 04/10/2021, 06/16/2014, 01/30/2006, Additional history exists Pneumococcal Vaccine: 50+ Years Completed 11/04/2022, 02/03/2015, 01/24/2015, Additional history exists RSV Immunization Adult Patients Completed 05/19/2023 Influenza Vaccine Completed 01/03/2025, , [...] complete this topic Insurance MEDICAID - [place] [facility] Member Subscriber Plan / Payer (Ef fective 2022-Present) Name:Min Daily Relation to Subscriber:Self Name:Min Daily Payer ID:[id number] Group ID:[id number] Type:Not on file Address: [address] [place] [phone] Care Teams Material Flow Analyst Relationship Specialty Start Date End Date Gemini Chavez MD [address] [place] [phone] [facility] - General 04/24/23
--- OUTSIDE RECORDS SUMMARY | 2025-02-28 13:56 | XMS_ITS | Encounter Summary ---
Author Organization [employer] Address 75 [facility] 7t [place] [address] Care Team Providers Care Tip Finisher Name Role Phone Gemini Chavez MD Primary Care Provide r Reason for Visit * Reason Comments Med Change Request Encounter Details Date Type Department Care Team (Late st Contact Info) Description 02/04/2023 Refill [facility] CHC MED & PEDS [address] [place], [place] [phone] Marsha Menjivar MD [address] [place] [address] Primary hypertension Social History Tobacco Use Types [...] Description 03/23/2025 11:15 AM EST Office Visit [facility] MEDICINE 230 [place] [address] Gemini Chavez MD [address] [place] [address] documented as of this encounter Visit Diagnoses Diagnosis Primary hypertension Unspecified essential hypertension documented in this encounter Additional Health Concerns Assessment Noted Time PHQ-9 Depression Total Score: 6 05/16/19 23 1:42 PM EST documented as of this encounter Care Teams Tip Finisher Relationship Specialty Start Date End Date Gemini Chavez MD [address] [place] [phone] PCP - General Family Medicine 01/21/18 [employer] 03/28/24 documented as of this encounter
--- OUTSIDE RECORDS SUMMARY | 2025-02-28 13:57 | XMS_ITS | Encounter Summary ---
Author Organization [employer] Address 75 [facility] 7t [place] [address] Care Team Providers Care Insert Operator Name Role Phone Gemini Chavez MD Primary Care Provide r Reason for Visit * Reason Onset Date Comments Referral 03/14/2023 Encounter Details Date Type Department Care Team ([facility] st Contact Info) Description 03/14/2023 Telephone [facility] MEDICINE 230 [place], [place] [phone] Gemini Chavez MD 230 [place], [place] [phone] Referral Social History Tobacco Use Types Packs/Day [...] t he electric, gas, oil or water [employer] threatened to shut off services in your [...] Description 03/23/2025 11:15 AM EST Office Visit [facility] MED[facility]INE 230 [place] [address] Gemini Chavez MD 230 [place] [address] documented as of this encounter Visit Diagnoses Not on filedocumented in this encounter Additional Health Concerns Assessment Noted Time PHQ-9 Depression Total Score: 6 05/16/19 23 1:42 PM EST documented as of this encounter Care Teams Insert Operator Relationship Specialty Start Date End Date Gemini Chavez MD [address] [place] [address] PCP - General Family Medicine 01/21/18 [employer] 03/28/24 documented as of this encounter
--- OUTSIDE RECORDS SUMMARY | 2025-02-28 13:57 | XMS_ITS | Encounter Summary ---
Author Organization [facility] Address [address] [place] [address] Phone Care Team Providers Care Cognos Administrator Name Role Phone Curt Richey MD Primary Care Provider + Encounter Details Date Type Department Care Team (Late st Contact Info) Description 12/24/2019 Ancillary Orders [facility] [address] [facility] 3rd Floor, [address] [place] [address] Curt Richey MD [address] [place] [address] [email or web address] Social History Tobacco Use Types Packs/Day Years [...] on filedocumented in this encounter Care Teams Cognos Administrator Relationship Specialty Start Date End Date Curt Richey MD [email or web address] PCP - General Cardiology 12/21/19 documented as of this encounter Additional Source Comments The information contained in this document represents components of the legal health record. It is not the complete legal health record.[facility]
--- OUTSIDE RECORDS SUMMARY | 2025-02-28 13:57 | XMS_ITS | Encounter Summary ---
Author Organization [employer] Address 75 [facility] 7t [place] [address] Care Team Providers Care House Rn Name Role Phone Gemini Chavez MD Primary Care Provide r Reason for Visit * Reason Comments Med Refill Encounter Details Date Type Department Care Team (Late st Contact Info) Description 10/20/2023 Refill [facility] CHC MED & PEDS [address] [place], [place] [phone] Gemini Chavez MD 230 [facility] [place] [address] Seasonal allergies Social History Tobacco Use Types [...] EST Office Visit [facility] MEDICINE [address] [place] [address] Gemini Chavez MD [address] [place] [address] documented as of this encounter Visit Diagnoses Diagnosis Seasonal allergies Allergic rhinitis, cause unspecified documented in this encounter Additional Health Concerns Assessment Noted Time PHQ-9 Depression Total Score: 0 09/03/19 9:55 AM EDT documented as of this encounter Care Teams House Rn Relationship Specialty Start Date End Date Gemini Chavez MD [address] [place] [address] PCP - General Family Medicine 01/21/18 [employer] 03/28/24 documented as of this encounter
--- OUTSIDE RECORDS SUMMARY | 2025-02-28 13:57 | XMS_ITS | Patient Health Record ---
Author Organization [facility] Address [address] [place] [address] Care Team Providers Care Thermal Intelligence Analyst Name Role Phone Gemini Fisher M.D. Primary Care Provider Larry Angeles Jr Unavailable Cipriano Murphy MD Unavailable Unavailable Allergies No Known Allergies Reason For Referral No Information Medications Medication SIG (Take, Route, Frequency, Duration) Notes Start Date End Date Status Creon [id number] UNIT TOME 2 C PSULAS POR V [...] Status W/U Status Risk Notes Problem Dysphagia (36957627) Dysphagia (R13.10) Active confirmed Problem Dysphagia (12409342) Dysphagia, unspecified type (R13.10) Active confirmed Problem Barium swallow abnormal (016420128) Abnormal barium swallow (R93.3) Active confirmed Problem Gastroesophageal reflux disease (443954409) Gastroesophageal reflux disease, unspecified whether esophagitis present (K21.9) Active confirmed Problem Presbyesophagus (657011854) Presbyesophagus (K22.89) Active confirmed Plan Of Treatment Future Test Test Name Order Date UPPER GI ENDOSCOPY 03/13/2023 Insurance Providers Payer Name Payer Address Payer Phone Subscriber Number Group Number Insured Name Patient Relationship to Insured Coverage Start Date Coverage End Date [facility] [address] Attn Claims [place] [id number] KOBE DAILY Self - patient is the insured Medical (General) History Medical History History ICD Code CE/COPD hypertension Fatty liver pulmonary nodule Elevated BMI Atrial fibrillation Hypothyroidism Gastroesophageal reflux disease/dysphagi a Surgical History Surgery Date(Month/Year) Cataract surgery Umbilical hernia repair Tonsillectomy
--- OUTSIDE RECORDS SUMMARY | 2025-02-28 13:57 | XMS_ITS | Clinical Summary ---
Author Organization [facility] Address [address] [facility] [address] [place] [address] Phone Care Team Providers Care Aquarist Name Role Phone Curt Richey MD Primary [...] Medical Devices Not on file Insurance [address] [place] [id number] [facility] ONE CARE MEDICARE REPLACEMENT [place] [facility] MEDICARE REPLACEMENT MEDICARE REPLACEMENT * Guarantor: Min Arauz Account Type Relation to Patient Date of Phone Billing Address Personal/Family Self [address] [place] [address] CARE [address] [place] [id number] ONE CARE MEDICARE REPLACEMENT Care Teams Aquarist Relationship Specialty Start Date End Date Curt Richey MD PCP - General Cardiology 12/21/19 Additional Source Comments The information contained in this document represents components of the legal health record. It is not the complete legal health record.[facility]
--- OUTSIDE RECORDS SUMMARY | 2025-02-28 13:57 | XMS_ITS | Encounter Summary ---
Author Organization [employer] Address 75 [facility] 7t [place] [address] Care Team Providers Care Cleaning Manager Name Role Phone Gemini Chavez MD Primary Care Provide r Encounter Details Date Type Department Care Team (Late st Contact Info) Description 02/19/[address] [facility] MEDICINE [address] [place], [place] [phone] Gemini Chavez MD 230 [place], [place] [phone] Social History Tobacco Use Types Packs/Day Years [...] [facility] [address] [place] [address] Gemini Chavez MD 230 [place] [address] documented as of this encounter Visit Diagnoses Not on filedocumented in this encounter Additional Health Concerns Assessment Noted Time PHQ-9 Depression Total Score: 6 05/16/19 23 1:42 PM EST documented as of this encounter Care Teams Cleaning Manager Relationship Specialty Start Date End Date Gemini Chavez MD 230 [place] [address] PCP - General Family Medicine 01/21/18 [employer] 03/28/24 documented as of this encounter
--- OUTSIDE RECORDS SUMMARY | 2025-02-28 13:57 | XMS_ITS | Encounter Summary ---
Author Organization [facility] Address [address] [facility] [address] [place] [address] Phone Care Team Providers Care Social And Human Services Assistant Name Role Phone Curt Richey MD Primary Care Provider + Encounter Details Date Type Department Care Team (Latest Contact Info) Description 12/24/2019 Ancillary [facility] [address] [place] [address] [place] [address] Curt Richey MD 50 [place] [address] [email or web address] Atrial fibrillation, unspecified type Social History Tobacco [...] type documented in this encounter Care Teams Social And Human Services Assistant Relationship Specialty Start Date End Date Curt Richey MD [email or web address] PCP - General Cardiology 12/21/19 documented as of this encounter Additional Source Comments The information contained in this document represents components of the legal health record. It is not the complete legal health record.[facility]
--- OUTSIDE RECORDS SUMMARY | 2025-02-28 13:57 | XMS_ITS | Encounter Summary ---
Author Organization [employer] Address 75 [facility] 7t [place] [address] Care Team Providers Care Icing Mixer Name Role Phone Gemini Chavez MD Primary Care Provide r Reason for Visit * Reason Onset Date Comments Nurse Triage 03/26/2023 Encounter Details Date Type Department Care Team ([facility] st Contact Info) Description 03/26/[address] [facility] MEDICINE [address] [place], [place] [phone] Gemini Chavez MD 230 [place] [address] Nurse Triage Social History Tobacco Use Types [...] 03/26/2023 11:47 AM EST Triage call with Wilkin Stacker [place] [id number] Pt reports ingrown toenail great toe on left foot for 3 days now. Pt reports it is painful and causes some limping when ambulating. Pt denies redness, drainage. Pt requests a referral to bulking machine operator which was very helpful last time this happened. Pt is advised will send this request to PCP and nursing team for follow up and Pt agreed. Pt declined to come to [facility] only wants bulking machine operator to cut this toenail. Protocol Used: Information [...] accepted this outcome Please contact pt at [phone] (stacker needed) documented in this encounter Plan of Treatment Upcoming Encounters Date Type Department Care Team ([facility] st Contact Info) Description 03/23/2025 11:15 AM EST Office Visit [facility] MEDICINE [address] [place] [phone] Gemini Chavez MD [address] [place], [place] [phone] documented as of this encounter Visit Diagnoses Not on filedocumented in this encounter Additional Health Concerns Assessment Noted Time PHQ-9 Depression Total Score: 6 05/16/19 23 1:42 PM EST documented as of this encounter Care Teams Icing Mixer Relationship Specialty Start Date End Date Gemini Chavez MD [address] [place], [place] [phone] PCP - General Family Medicine 01/21/18 [employer] 03/28/24 documented as of this encounter
--- OUTSIDE RECORDS SUMMARY | 2025-02-28 13:57 | XMS_ITS | Encounter Summary ---
Author Organization [facility] Address 75 [facility] 7t [place] [address] Care Team Providers Care Bow Maker Name Role Phone Gemini Chavez MD Primary Care Provide r Encounter Details Date Type Department Care Team (Late st Contact Info) Description 07/10/2023 Orders Only [facility] MEDICINE [address] [place], [place] [phone] Gemini Chavez MD 230 [place], [place] [phone] Mixed stress and urge urinary incontinence (Primary [...] t he electric, gas, oil or water [employer] threatened to shut off services in your [...] EST Office Visit [facility] MEDICINE [address] [place] [address] Gemini Chavez MD [address] [place] [address] documented as of this encounter Visit Diagnoses Diagnosis Mixed stress and urge urinary incontinence- Primary Mixed incontinence urge and stress (male)(female) documented in this encounter Additional Health Concerns Assessment Noted Time PHQ-9 Depression Total Score: 6 05/16/19 23 1:42 PM EST documented as of this encounter Care Teams Bow Maker Relationship Specialty Start Date End Date Gemini Chavez MD [address] [place] [address] PCP - General Family Medicine 01/21/18 [employer] 03/28/24 documented as of this encounter
--- OUTSIDE RECORDS SUMMARY | 2025-02-28 13:58 | XMS_ITS | Encounter Summary ---
Author Organization [employer] Address 75 [facility] 7t [place] [address] Care Team Providers Care Big Data Hadoop Developer Name Role Phone Gemini Chavez MD Primary Care Provide r Encounter Details Date Type Department Care Team (Late st Contact Info) Description 05/10/2024 Orders Only [facility] MEDICINE 230 [place], [place] [phone] Gemini Chavez MD 230 [place], [place] [phone] Stage 3 chronic kidney disease, unspecified whether [...] Office Visit [facility] MEDICINE [address] [place] [address] Gemini Chavez MD [address] [place] [address] documented as of this encounter Visit Diagnoses Diagnosis Stage 3 chronic kidney disease, unspecified whether stage 3a or 3b CKD (CMS/HCC) ([facility])- Primary Class 2 severe obesity due to excess calories with serious comorbidity and body mass index (BMI) of 38.0 to 38.9 in adult documented in this encounter Additional Health Concerns Assessment Noted Time PHQ-9 Depression Total Score: 0 09/03/19 9:55 AM EDT documented as of this encounter Care Teams Big Data Hadoop Developer Relationship Specialty Start Date End Date Gemini Chavez MD [address] [place] [address] PCP - General Family Medicine 01/21/18 [employer] 03/28/24 documented as of this encounter
--- OUTSIDE RECORDS SUMMARY | 2025-02-28 13:58 | XMS_ITS | Encounter Summary ---
Author Organization [employer] Address 75 [facility] 7t [place] [address] Care Team Providers Care Growth Hacker Name Role Phone Gemini Chavez MD Primary Care Provide r Reason for Visit * Reason Comments Med Refill Encounter Details Date Type Department Care Team ([facility] st Contact Info) Description 10/16/2024 Refill [facility] MEDICINE 230 [place], [place] [phone] Gemini Chavez MD 230 [place] [address] Prediabetes Social History Tobacco Use Types Packs/Day [...] AM EST Office Visit [facility] MEDICINE [address] [place] [address] Gemini Chavez MD [address] [place] [address] documented as of this encounter Visit Diagnoses Diagnosis Prediabetes Other abnormal glucose documented in this encounter Additional Health Concerns Assessment Noted Time PHQ-9 Depression Total Score: 0 09/03/19 24 9:55 AM EDT documented as of this encounter Care Teams Growth Hacker Relationship Specialty Start Date End Date Gemini Chavez MD [address] [place] [address] PCP - General Family Medicine 01/21/18 [employer] 03/28/24 documented as of this encounter
--- OUTSIDE RECORDS SUMMARY | 2025-02-28 13:58 | XMS_ITS | Encounter Summary ---
Author Organization [employer] Address [address] [facility] 7t [place] [address] Care Team Providers Care Media Coordinator Name Role Phone Gemini Chavez MD Primary Care Provide r Encounter Details Date Type Department Care Team (Late st Contact Info) Description 06/18/2024 Orders Only [facility] MEDICINE 230 [place], [place] [phone] Gemini Chavez MD [address] [place], [place] [phone] Social History Tobacco Use Types Packs/Day Years [...] EST Office Visit [facility] MEDICINE [address] [place] [address] Gemini Chavez MD [address] [place] [address] documented as of this encounter Visit Diagnoses Not on filedocumented in this encounter Additional Health Concerns Assessment Noted Time PHQ-9 Depression Total Score: 0 09/03/19 9:55 AM EDT documented as of this encounter Care Teams Media Coordinator Relationship Specialty Start Date End Date Gemini Chavez MD [address] [place] [address] PCP - General Family Medicine 01/21/18 [employer] 03/28/24 documented as of this encounter
--- OUTSIDE RECORDS SUMMARY | 2025-02-28 13:58 | XMS_ITS | Encounter Summary ---
Author Organization [employer] Address 75 [facility] 7t [place] [address] Care Team Providers Care Head Of It Name Role Phone Gemini Chavez MD Primary Care Provide r Reason for Visit * Reason Comments Med Refill Encounter Details Date Type Department Care Team ([facility] st Contact Info) Description 05/08/2024 Refill [facility] MEDICINE 230 [place], [place] [phone] Gemini Chavez MD 230 [place] [address] Class 1 obesity due to excess calories [...] 11:15 AM EST Office Visit [facility] [address] [place] [address] Gemini Chavez MD 230 [place] [address] documented as of this encounter Visit Diagnoses Diagnosis Class 1 obesity due to excess calories with serious comorbidity and body mass index (BMI) of 33.0 to 33.9 in adult documented in this encounter Additional Health Concerns Assessment Noted Time PHQ-9 Depression Total Score: 0 09/03/19 24 9:55 AM EDT documented as of this encounter Care Teams Head Of It Relationship Specialty Start Date End Date Gemini Chavez MD [address] [place] [address] PCP - General Family Medicine 01/21/18 [employer] 03/28/24 documented as of this encounter
== END 2025-02-28 12:17 | disposition home or self-care (01) ==
LOC: HO.HOS 11:19
PROVIDERS: PCP Internal Medicine; Visit Provider Physician Assistant
DX: M77.8 Other enthesopathies, not elsewhere classified (principal); M75.102 Unspecified rotator cuff tear or rupture of left shoulder, not specified as traumatic
CPT/HCPCS: 99214; G2211

== ENCOUNTER → 2025-02-28 11:18 | Outpatient (BNVA) | payer OTHER, SELFPAY | PROVIDERS: PCP Internal Medicine; Visit Provider Physician Assistant | DX: Z71.2 Person consulting for explanation of examination or test findings (principal); M25.512 Pain in left shoulder; M75.102 Unspecified rotator cuff tear or rupture of left shoulder, not specified as traumatic; M77.8 Other enthesopathies, not elsewhere classified | CPT/HCPCS: 99212 ==

== ENCOUNTER 2025-03-01 13:38 | Outpatient (AMB) | payer OTHER, SELFPAY ==
[2025-03-01 13:45] VITALS: BP 110/70; PULSE 75; O2SAT 96; BMI 35.5
--- NOTE | 2025-03-01 13:45 | HO.NEPHOV_ITS ---
Vital Signs 03/01/25 13:45 Height 5 ft 6 in Weight 220 lb BMI 35.5 BP 110/70 Blood Pressure Location Lt brachial Position Sitting Pulse 75 Pulse Source Pulse Oximeter Pulse Oximetry (%) 96 Oxygen Delivery Method Room Air Intake Visit Reasons: 4wk f/u w/labs confirmed [employer] Laboratory Assistant Required: Yes [employer] Laboratory Assistant Name: garland [id number] Accompanied by: Self / Same As Patient Allergies Iodinated Contrast Media (CONTRAST, IV) Allergy (Unknown, Verified 03/01/25 13:49) HIVES kiwi (KIWI) Allergy (Unknown, Verified 03/01/25 13:49) THROAT SWELLING Medication List - Last Reconciled 03/01/25 by Claudio Allan MD albuterol sulfate 3 mg inhalation QID PRN albuterol sulfate 90 mcg/actuation (Ventolin HFA) 2 puffs PO Q6H PRN amlodipine 10 mg PO DAILY apixaban 5 mg PO BID cholecalciferol (vitamin D3) 50 mcg PO DAILY clonazepam 1 mg PO BID PRN diclofenac sodium 1% 2 grams topical QID epinephrine (EpiPen 2-Blaise) 0.3 mg (0.3 mL) IM Q4H PRN fluticasone propion-salmeterol 250-50 mcg/dose (Wixela Inhub) 1 inh inhalation BID hydrochlorothiazide 25 mg PO DAILY hydroxyzine pamoate 25 mg PO BID PRN L.acidoph,saliva-B.bif-S.therm 175 mg (Acidophilus Probiotic Blend) 1 cap PO DA LAUREN levothyroxine 100 mcg PO DAILY jzgvhq-cxtaiwur-fozilzk (pork) 36,000-114,000- 180,000 unit (Creon) 2 caps PO BID lisinopril 20 mg PO DAILY metformin 500 mg PO BID metoprolol succinate ER 200 mg PO DAILY oxycodone 5 mg PO Q8H PRN pantoprazole 40 mg PO DAILY prednisone 40 mg (2 x 20 mg) PO DAILY 5 days rosuvastatin 40 mg PO DAILY sennosides (Senna Laxative) 17.2 mg (2 x 8.6 mg) PO BEDTIME simethicone 180 mg PO QID 30 days tramadol 50 mg PO BEDTIME 7 days vitamin E (dl, acetate) 45 mg PO DAILY zolpidem 10 mg PO BEDTIME PRN HPI Comments Details: Min is a pleasant 68-year-old man with a history of obesity with hypertension has been referred for chronic kidney disease. Two months ago creatinine was 1.46. Subsequently this has improved. He is on Wegovy and he was lost about 40 lb. 05/25/24;Wegovy had been discontinued Lost 4 lbs since last visit 3 weeks ago 08/24/24: Overall doing well. Gained about 10 lbs During last visit, BP is relatively low, Lisinopril can be decreased by 50 % to 20 mg a day but he is still on 40 mg I beleive. He is not sure 01/25/25 The patient is a 69-year-old male presenting with low blood pressure and CKD He has been taking furosemide and hydrochlorothiazide, contributing to hypotension. Blood pressure is currently too low, requiring medication adjustment. Medications: - Furosemide: 40 mg Q2D - Hydrochlorothiazide: Diuretic for fluid management - Lisinopril 40 m03/01/25 - The patient is a 69-year-old male presenting with follow-up for hypertension and kidney function. - Hypertension: Blood pressure improved to 110/70 mmHg. - Kidney function: Improved from previous visit. - Shoulder pain: Awaiting surgery, related to previous connection issue. Now on CELEBREX 200 mg BID - Medication adherence: Adjusted blood pressure medication and diuretics, correct dosage confirmed. - NSAID use: Advised to limit Celebrex due to kidney impact. [facility] Medical History Diabetes Hoarseness Dysphagia Colon cancer screening Throat disorder Bronchitis CHF (congestive heart failure) Afib Allergic rhinitis COPD (chronic obstructive pulmonary disease) CE (obstructive sleep apnea) Obesity (BMI 30-39.9) Hypothyroid Anxiety Palpitation HTN (hypertension) Surgical History Hx of umbilical hernia repair History of surgery on arm Hx of eye surgery Hx of colonoscopy Hx of knee surgery Hx of tonsillectomy Family History Family/Other No problems noted. Social History Household Members: None Housing: Apartment Do you presently have visiting nurse or other home services: Yes Alcohol intake: former Patient Tobacco Use Status: Former Tobacco user Advance Directives Date on File: 08/11/23 service: No Physical Exam Vital Signs: Last Vital Signs Pulse 75 03/01/25 13:45 BP 110/70 03/01/25 13:45 Pulse Ox 96 03/01/25 13:45 Oxygen Delivery Method Room Air 03/01/25 13:45 BMI result Body Mass Index 35.5 Comfortable Neck supple no JVD. Lungs entry equal no rales. Heart S1-S2 heard no gallop or rub. Abdomen soft nontender. Neuro alert awake oriented. No asterixis. Extremities no edema. Results Reviewed Nephrology Results: Hgb, (14.0-18.0) 13.0 g/dl L 02/15/25 WBC, (4.8-10.8) 8.8 X10*3/uL 02/15/25 Plt Count, (160-400) 160 X10*3/uL 02/15/25 Sodium, (135-145) 144 mmol/L 02/21/25 Potassium, (3.3-5.1) 3.4 mmol/L 02/21/25 Chloride, (96-108) 105 mmol/L 02/21/25 Carbon Dioxide, (22-29) 30 mmol/L H 02/21/25 BUN, (9-16) 26 mg/dL H 02/21/25 Creatinine, (0.5-1.4) 1.17 mg/dL 02/21/25 Calcium, (8.4-10.2) 9.0 mg/dL Δ 02/21/25 Renal US 05/11/24 Assessment & Plan Assessment & Plan (1) CKD (chronic kidney disease): Code(s): N18.9 - Chronic kidney disease, unspecified Category: Medical Plan 68-year-old man with the acute kidney injury superimposed on chronic kidney disease. Acute kidney injury has resolved. He was underlying chronic kidney disease most likely due to hypertensive nephrosclerosis. In 2022 abdominal ultrasonogram showed a nonobstructing calculi in the right kidney. No obstructive uropathy based on ultrasonogram in Apr 2024 Optimize blood pressure control. Avoid hypotension. Encouraged to bring all his meds during next visit May need to adjust diuretics. No need to stay on both Lasix and HCTZ 03/01/25 1. Hypertension BP better controlled - continue hydrochlorothiazide. lisinopril to 20 mg. 2. CKD BEE due to Hypoperfusion AVOID CELEBREX Improved after adjusting medications Orders: Orders Basic Metabolic Panel 6 Months N18.9 - Chronic kidney disease, unspecified Basic Metabolic Panel 3 Months N18.9 - Chronic kidney disease, unspecified Coding Level of Care Code Est Pt Level 4 (54976) Diagnoses CKD (chronic kidney disease) N18.9
--- OUTSIDE RECORDS SUMMARY | 2025-03-01 17:57 | XMS_ITS | Encounter Summary ---
Author Organization [employer] [facility] Address [address] [facility] 7t [place] [address] Care Team Providers Care Intramural Director Name Role Phone Gemini Chavez MD Primary Care Provide r Encounter Details Date Type Department Care Team (Late st Contact Info) Description 01/22/2023 Orders Only [facility] MEDICINE [address] [place] [address] [phone] Gemini Chavez MD [address] [place], [place] [phone] COPD with asthma ([facility]) Social History [...] Care Team (Late st Contact Info) Description 03/11/2025 10:30 AM EDT Office Visit [facility] MED[facility]INE [address] [place] [phone] Abhishek Gregory FNP 230 [place] [address] 03/23/2025 11:15 AM EST Office Visit [facility] MEDICINE 230 [place] [address] Gemini Chavez MD [address] [place] [address] documented as of this encounter Visit Diagnoses Diagnosis COPD with asthma (CMS/HCC) (HCC) documented in this encounter Additional Health Concerns Assessment Noted Time PHQ-9 Depression Total Score: 6 05/16/19 23 1:42 PM EST documented as of this encounter Care Teams Intramural Director Relationship Specialty Start Date End Date Gemini Chavez MD [address] [place] [address] PCP - General Family Medicine 01/21/18 [employer] 03/28/24 documented as of this encounter
--- OUTSIDE RECORDS SUMMARY | 2025-03-01 17:57 | XMS_ITS | Encounter Summary ---
Author Organization [email or web address] Address [address] [facility] 7t [place] [address] Care Team Providers Care Crib Tender Name Role Phone Gemini Chavez MD Primary Care Provide r Reason for Visit * Reason Comments Med Refill Encounter Details Date Type Department Care Team (Late st Contact Info) Description 09/08/2022 Refill [facility]C MED & PEDS [address] [place], [place] [phone] Umer Sears MD [address] [place], [place] [phone] Seasonal allergies Social History Tobacco Use Types [...] Department Care Team (Late Contact Info) Description 03/11/2025 10:30 AM EDT Office Visit [facility] MEDICINE [address] [place], [place] [phone] Abhishek Gregory FNP 230 [place] [address] 03/23/2025 11:15 AM EST Office Visit [facility] MEDICINE [address] [place] [address] Gemini Chavez MD [address] [place] [address] documented as of this encounter Visit Diagnoses Diagnosis Seasonal allergies Allergic rhinitis, cause unspecified documented in this encounter Additional Health Concerns Assessment Noted Time PHQ-9 Depression Total Score: 6 05/16/19 23 1:42 PM EST documented as of this encounter Care Teams Crib Tender Relationship Specialty Start Date End Date Gemini Chavez MD [address] [place] [address] PCP - General Family Medicine 01/21/18 [employer] 03/28/24 documented as of this encounter
--- OUTSIDE RECORDS SUMMARY | 2025-03-01 17:57 | XMS_ITS | Encounter Summary ---
Author Organization [employer] Address [address] [facility] 7t [place] [address] Care Team Providers Care Wireless Engineer Name Role Phone Gemini Chavez MD Primary Care Provide r Reason for Visit * Reason Comments Med Refill Encounter Details Date Type Department Care Team ([facility] st Contact Info) Description 02/12/2024 Refill [facility] MEDICINE [address] [place], [place] [phone] Gemini Chavez MD 230 [place] [address] Prediabetes Social History Tobacco Use Types Packs/Day [...] Description 03/11/2025 10:30 AM EDT Office Visit [facility] MEDICINE [address] [place] [phone] Abhishek Gregory FNP [address] [place] [phone] 03/23/2025 11:15 AM EST Office Visit [address] [address] Gemini Chavez MD [address] [place] [address] documented as of this encounter Visit Diagnoses Diagnosis Prediabetes Other abnormal glucose documented in this encounter Additional Health Concerns Assessment Noted Time PHQ-9 Depression Total Score: 0 09/03/19 9:55 AM EDT documented as of this encounter Care Teams Wireless Engineer Relationship Specialty Start Date End Date Gemnii Chavez MD [address] [place] [phone] PCP - General Family Medicine 01/21/18 [employer] 03/28/24 documented as of this encounter
--- OUTSIDE RECORDS SUMMARY | 2025-03-01 17:57 | XMS_ITS | Encounter Summary ---
Author Organization [employer] Address [address] [facility] 7t [place] [address] Care Team Providers Care Dairy Farmworker Name Role Phone Gemini Chavez MD Primary Care Provide r Reason for Visit * Reason Comments Med Change Request Encounter Details Date Type Department Care Team (Late st Contact Info) Description 02/04/2023 Refill [facility] CHC MED & PEDS [address] [place], [place] [phone] Marsha Menjivar MD 230 [place] [address] Primary hypertension Social History Tobacco Use Types [...] Miscellaneous Notes * Telephone Encounter - Gail Oliav RN - 03/03/2023 11:46 AM EDT Sent [...] 10:30 AM EDT Office Visit [facility] MEDICINE [address] [place] [address] [phone] Abhishek Gregory FNP 230 [place] [address] 03/23/2025 11:15 AM EST Office Visit [facility] MEDICINE [address] [place] [address] [phone] Gemini Chavez MD [address] [place] [address] [phone] documented as of this encounter Visit Diagnoses Diagnosis Primary hypertension Unspecified essential hypertension documented in this encounter Additional Health Concerns Assessment Noted Time PHQ-9 Depression Total Score: 6 05/16/19 23 1:42 PM EST documented as of this encounter Care Teams Dairy Farmworker Relationship Specialty Start Date End Date Gemini Chavez MD [address] [place] [address] [phone] PCP - General Family Medicine 01/21/18 [employer] 03/28/24 documented as of this encounter
--- OUTSIDE RECORDS SUMMARY | 2025-03-01 17:57 | XMS_ITS | Encounter Summary ---
Author Organization [employer] Address [address] [facility] 7t [place] [address] Care Team Providers Care Ibm Mainframe Developer Name Role Phone Gemini Chavez MD Primary Care Provide r Reason for Visit * Reason Comments Med Refill Encounter Details Date Type Department Care Team ([facility] st Contact Info) Description 02/12/2024 Refill [facility] 230 [place], [place] [phone] Gemini Chavez MD 230 [place] [address] Prediabetes Social History Tobacco Use Types Packs/Day [...] Description 03/11/2025 10:30 AM EDT Office Visit [facility] [address] [place] [phone] Abhishek Gregory FNP [address] [place] [address] 03/23/2025 11:15 AM EST Office Visit [address] [address] Gemini Chavez MD [address] [place] [phone] documented as of this encounter Visit Diagnoses Diagnosis Prediabetes Other abnormal glucose documented in this encounter Additional Health Concerns Assessment Noted Time PHQ-9 Depression Total Score: 0 09/03/19 9:55 AM EDT documented as of this encounter Care Teams Ibm Mainframe Developer Relationship Specialty Start Date End Date Gemini Chavez MD [address] [place] [phone] PCP - General Family Medicine 01/21/18 [employer] 03/28/24 documented as of this encounter
--- OUTSIDE RECORDS SUMMARY | 2025-03-01 17:57 | XMS_ITS | Clinical Summary ---
Author Organization [address] [facility] Address 175 [place] [address] Phone Care Team Providers Care Casting Technician Name Role Phone Gemini Chavez MD [...] BLOOD SUGAR ONCE DAILY 5 Active [employer] [place] Lite monitoring kit USE TO TEST BLOOD [...] PM EDT Office Visit Orthopedic Surgery - [address] [address] Gallito Hancock, DPM Dermatophytosis of [...] PM EST Office Visit Orthopedic Surgery - [place] [address] [address] Gallito Hancock, DPHollis [address] [address] Health Maintenance Due Date Last [...] complete this topic Insurance MEDICAID - [place] [facility] Member Subscriber Plan / Payer (Ef fective 2022-Present) Name:Min Daily Relation to Subscriber:Self Name:Min Daily Payer ID:[id number] Group ID:[id number] Type:Not on file Address: [address] [place] [id number] Care Teams Casting Technician Relationship Specialty Start Date End Date Gemini Chavez MD [address] [place] [phone] [facility] - General 04/24/23
--- OUTSIDE RECORDS SUMMARY | 2025-03-01 17:57 | XMS_ITS | Encounter Summary ---
Author Organization [employer] Address [address] [facility] 7t [place] [address] Care Team Providers Care Chemical Tank Worker Name Role Phone Gemini Chavez MD Primary Care Provide r Reason for Visit * Reason Onset Date Comments Appointment Request 08/21/2022 Encounter Details Date Type Department Care Team ([facility] st Contact Info) Description 08/21/2022 Telephone [facility] MEDICINE [address] [place], [place] [phone] Gemini Chavez MD 230 [place] [address] Appointment Request Social History Tobacco Use Types [...] an family emergency. Please contact pt at [phone] documented in this encounter Plan of Treatment Upcoming Encounters Date Type Department Care Team (Late st Contact Info) Description 03/11/2025 10:30 AM EDT Office Visit [facility] MEDICINE [address] [place] [address] Abhishek Gregory FNP 230 [place] [address] 03/23/2025 11:15 AM EST Office Visit [address] [phone] Gemini Chavez MD [address] [place] [address] [phone] documented as of this encounter Visit Diagnoses Not on filedocumented in this encounter Additional Health Concerns Assessment Noted Time PHQ-9 Depression Total Score: 6 05/16/19 23 1:42 PM EST documented as of this encounter Care Teams Chemical Tank Worker Relationship Specialty Start Date End Date Gemini Chavez MD [address] [place] [address] [phone] PCP - General Family Medicine 01/21/18 [employer] 03/28/24 documented as of this encounter
--- OUTSIDE RECORDS SUMMARY | 2025-03-01 17:57 | XMS_ITS | Encounter Summary ---
Author Organization [employer] Address [address] [facility] 7t [place] [address] Care Team Providers Care Cold Mill Supervisor Name Role Phone Gemini Chavez MD Primary Care Provide r Reason for Visit * Reason Onset Date Comments Prior Authorization 06/10/2024 Encounter Details Date Type Department Care Team ([facility] st Contact Info) Description 06/10/2024 Telephone [facility] MEDICINE 230 [place], [place] [phone] Gemini Chavez MD [address] [place] [address] Prior Authorization Social History Tobacco Use Types [...] is required on PA. Contact pt at [phone] (thai) * Telephone Encounter - Rohit Cruz - 06/10/2024 9:00 AM EST Tc from pt requesting a PA for Tirzepatide-Weight Management (Zepbound) 2.5 MG/0.5ML solution auto-injector because pt stated that he received a letter stating that PA got denied. Contact pt: [phone] (Kazakh) documented in this encounter Plan of Treatment Upcoming Encounters Date Type Department Care Team (Late st Contact Info) Description 03/11/2025 10:30 AM EDT Office Visit [facility] MEDICINE [address] [place] [address] [phone] Abhishek Gregory FNP 230 [place] [address] 03/23/2025 11:15 AM EST Office Visit [facility] [address] [place] [address] [place] [address] Gemini Chavez MD [address] [place] [address] documented as of this encounter Visit Diagnoses Not on filedocumented in this encounter Additional Health Concerns Assessment Noted Time PHQ-9 Depression Total Score: 0 09/03/19 24 9:55 AM EDT documented as of this encounter Care Teams Cold Mill Supervisor Relationship Specialty Start Date End Date Gemini Chavez MD [address] [place] [address] PCP - General Family Medicine 01/21/18 [employer] 03/28/24 documented as of this encounter
--- OUTSIDE RECORDS SUMMARY | 2025-03-01 17:57 | XMS_ITS | Encounter Summary ---
Author Organization [employer] [facility] Address [address] [facility] 7t [place] [address] Care Team Providers Care Bicycle Assembler Name Role Phone Gemini Chavez MD Primary Care Provide r Reason for Visit * Reason Comments Med Refill Encounter Details Date Type Department Care Team (Late st Contact Info) Description 10/07/2022 Refill [facility] MEDICINE [address] [place] [address] [phone] Gemini Chavez MD 230 [place], [place] [phone] Chronic systolic heart failure (CMS/HCC) Social History [...] 10:30 AM EDT Office Visit [facility] MEDICINE [address] [place] [address] Abhishek Gregory FNP 230 [place] [address] 03/23/2025 11:15 AM EST Office Visit [facility] MEDICINE [address] [place] [address] Gemini Chavez MD 230 [place] [address] documented as of this encounter Visit Diagnoses Diagnosis Chronic systolic heart failure (HCC) Chronic systolic heart failure documented in this encounter Additional Health Concerns Assessment Noted Time PHQ-9 Depression Total Score: 6 05/16/19 23 1:42 PM EST documented as of this encounter Care Teams Bicycle Assembler Relationship Specialty Start Date End Date Gemini Chavez MD 230 [place] [address] PCP - General Family Medicine 01/21/18 [employer] 03/28/24 documented as of this encounter
--- OUTSIDE RECORDS SUMMARY | 2025-03-01 17:57 | XMS_ITS | Encounter Summary ---
Author Organization [employer] Address [address] [facility] 7t [place] [address] Care Team Providers Care Rn Gynecology Name Role Phone Gemini Chavez MD Primary Care Provide r Reason for Visit * Reason Comments Med Change Request Encounter Details Date Type Department Care Team (Late Contact Info) Description 01/08/2023 Refill [facility] MEDICINE 230 [place], [place] [phone] Marsha Menjivar MD 230 [place] [address] Chronic obstructive pulmonary disease, unspecified COPD type (CMS/[facility]) Social History Tobacco Use Types Packs/Day [...] generated for Nebulizer signed and faxed to [facility]. documented in this encounter Plan of Treatment Upcoming Encounters Date Type Department Care Team (Late st Contact Info) Description 03/11/2025 10:30 AM EDT Office Visit [facility] MEDICINE [address] [place] [phone] Abhishek Gregory FNP 230 [place] [address] 03/23/2025 11:15 AM EST Office Visit [facility] MEDICINE [address] [place] [address] [phone] Gemini Chavez MD [address] [place] [address] [phone] documented as of this encounter Visit Diagnoses Diagnosis Chronic obstructive pulmonary disease, unspecified COPD type (CMS/HCC) (HCC) documented in this encounter Additional Health Concerns Assessment Noted Time PHQ-9 Depression Total Score: 6 05/16/19 23 1:42 PM EST documented as of this encounter Care Teams Rn Gynecology Relationship Specialty Start Date End Date Gemini Chavez MD [address] [place] [address] [phone] PCP - General Family Medicine 01/21/18 [employer] 03/28/24 documented as of this encounter
--- OUTSIDE RECORDS SUMMARY | 2025-03-01 17:57 | XMS_ITS | Encounter Summary ---
Author Organization [employer] Address 75 [facility] 7t [place] [address] Care Team Providers Care Hammer Mill Operator Name Role Phone Gemini Chavez MD Primary Care Provide r Reason for Visit * Reason Comments Med Refill Encounter Details Date Type Department Care Team ([facility] st Contact Info) Description 03/03/2024 Refill [facility] 230 [place], [place] [phone] Gemini Chavez MD 230 [place], [place] [phone] Social History Tobacco Use Types Packs/Day Years [...] Description 03/11/2025 10:30 AM EDT Office Visit [facility] MEDICINE [address] [place] [address] Abhishek Gregory FNP [address] [place] [address] 03/23/2025 11:15 AM EST Office Visit [address] [address] Gemini Chavez MD [address] [place] [address] documented as of this encounter Visit Diagnoses Not on filedocumented in this encounter Additional Health Concerns Assessment Noted Time PHQ-9 Depression Total Score: 0 09/03/19 9:55 AM EDT documented as of this encounter Care Teams Hammer Mill Operator Relationship Specialty Start Date End Date Gemini Chaevz MD [address] [place] [phone] PCP - General Family Medicine 01/21/18 [employer] 03/28/24 documented as of this encounter
--- OUTSIDE RECORDS SUMMARY | 2025-03-01 17:57 | XMS_ITS | Patient Health Record ---
Author Organization [facility] Address [address] [place] [address] Care Team Providers Care Sales Force Administrator Name Role Phone Gemini Fisher M.D. Primary Care Provider Larry Angeles Jr Unavailable Cipriano Murphy MD Unavailable Unavailable Allergies No Known Allergies Reason For Referral No Information Medications Medication SIG (Take, Route, Frequency, Duration) Notes Start Date End Date Status Creon [id number] UNIT TOME 2 C PSULAS POR V [...] Status W/U Status Risk Notes Problem Dysphagia (19468395) Dysphagia (R13.10) Active confirmed Problem Dysphagia (42259338) Dysphagia, unspecified type (R13.10) Active confirmed Problem Barium swallow abnormal (996236363) Abnormal barium swallow (R93.3) Active confirmed Problem Gastroesophageal reflux disease (293483908) Gastroesophageal reflux disease, unspecified whether esophagitis present (K21.9) Active confirmed Problem Presbyesophagus (251243472) Presbyesophagus (K22.89) Active confirmed Plan Of Treatment Future Test Test Name Order Date UPPER GI ENDOSCOPY 03/13/2023 Insurance Providers Payer Name Payer Address Payer Phone Subscriber Number Group Number Insured Name Patient Relationship to Insured Coverage Start Date Coverage End Date [facility] [address] Attn Claims CLIFF Perez [id number] [id number] DAILY Self - patient is the insured Medical (General) History Medical History History ICD Code CE/COPD hypertension Fatty liver pulmonary nodule Elevated BMI Atrial fibrillation Hypothyroidism Gastroesophageal reflux disease/dysphagi a Surgical History Surgery Date(Month/Year) Cataract surgery Umbilical hernia repair Tonsillectomy
--- OUTSIDE RECORDS SUMMARY | 2025-03-01 17:57 | XMS_ITS | Encounter Summary ---
Author Organization [employer] [facility] Address [address] 7t [place] [address] Care Team Providers Care Link Trainer Maintenance Man Name Role Phone Gemini Chavez MD Primary Care Provide r Reason for Visit * Reason Comments Med Refill Encounter Details Date Type Department Care Team (Late st Contact Info) Description 06/21/2022 Refill [facility] [address] [place], [place] [phone] Marsha Menjivar MD [address] [place], [place] [phone] Chronic systolic heart failure (CMS/HCC) Social History [...] Description 03/11/2025 10:30 AM EDT Office Visit [facility] [address], [place] [phone] Abhishek Gregory FNP [address] [place] [address] 03/23/2025 11:15 AM EST Office Visit [facility] [address] [place] [address] [phone] Gemini Chavez MD [address] [place] [address] [phone] documented as of this encounter Visit Diagnoses Diagnosis Chronic systolic heart failure (HCC) Chronic systolic heart failure documented in this encounter Additional Health Concerns Assessment Noted Time PHQ-9 Depression Total Score: 6 05/16/19 23 1:42 PM EST documented as of this encounter Care Teams Link Trainer Maintenance Man Relationship Specialty Start Date End Date Gemini Chavez MD [address] [place] [phone] PCP - General Family Medicine 01/21/18 [employer] 03/28/24 documented as of this encounter
--- OUTSIDE RECORDS SUMMARY | 2025-03-01 17:57 | XMS_ITS | Encounter Summary ---
Author Organization [employer] Address [address] [facility] 7t [place] [address] Care Team Providers Care Quality Eng Name Role Phone Gemini Chavez MD Primary Care Provide r Reason for Visit * Reason Comments Med Refill Encounter Details Date Type Department Care Team ([facility] st Contact Info) Description 05/14/2024 Refill [facility] [address] [place], [place] [phone] Gemini Chavez MD [address] [place], [place] [phone] Class 1 obesity due to excess calories [...] Description 03/11/2025 10:30 AM EDT Office Visit [address] [address] Abhishek Gregory FNP [address] [place] [phone] 03/23/2025 11:15 AM EST Office Visit [address] [address] Gemini Chavez MD [address] [place] [phone] documented as of this encounter Visit Diagnoses Diagnosis Class 1 obesity due to excess calories with serious comorbidity and body mass index (BMI) of 33.0 to 33.9 in adult documented in this encounter Additional Health Concerns Assessment Noted Time PHQ-9 Depression Total Score: 0 09/03/19 24 9:55 AM EDT documented as of this encounter Care Teams Quality Eng Relationship Specialty Start Date End Date Gemini Chavez MD [address] [place] [address] PCP - General Family Medicine 01/21/18 Clicker 03/28/24 documented as of this encounter
--- OUTSIDE RECORDS SUMMARY | 2025-03-01 17:57 | XMS_ITS | Clinical Summary ---
Author Organization [employer] Address [address] [place] [address] 7t [place] [address] Care Team Providers Care Internal Control Analyst Name Role Phone Gemini Chavez MD [...] ANAPHYLAXIS AND CALL [phone] Active Creon 91571-148867 units capsule delayed-release particles capsule Take 2 capsules by mouth 4 times daily. ADMINISTER WITH MEALS AND/OR SNACKS 2022 Active Fluticasone-Salmetero l 250-50 MCG/ACT aerosol powder Inhale 1 puff 2 times daily. 2023 Active Umeclidinium Woodruff (Incruse Ellipta) 62.5 MCG/ACT aerosol powderIndications:Chr onic [...] 09/03 Active Blood Glucose Monitoring Suppl (FreeStyle Sparks Lite) w/Device kitIndications:Predia betes Use to test [...] 4 2024 Active lidocaine (Lidoderm) 5 % patchIndications:City Carrier haylee left shoulder pain Apply 1 patch [...] te exacerbation of COPD with asthma (CMS/[facility]) ([facility]) Take 2 tablets (40 mg) by mouth Once per day for 10 days. 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 -on day of surgery can take BB and levothyroxine with a sip of water and to hold rest of meds -nurse staff to fax this note to surgeon COPD with asthma ([facility]) 01/22/2023 Assessment & Plan (11/29/2024 3:17 PM [...] Encounters Date Type Department Care Team Description 02/28/2025 Telephone [facility] [address] [place] [address] Gemini Chavez MD Pre-op appt 02/22/2025 8:40 AM EDT Office Visit [facility] [address] [place] [address] Christal Edmonds MD Acute exacerbation of COPD with asthma (CMS/HCC) (HCC) (Primary Dx); Cough in adult 02/22/2025 Travel 02/21/2025 Telephone [facility] [address] [place] [address] Gemini Chavez MD Nurse Triage; ER Follow-up 02/21/2025 Orders Only GENERIC EXTERNAL DATA DEPARTMENT Provider, Generic External Data 02/18/2025 Orders Only [facility] External Provider, [facility] 02/16/2025 Telephone [facility] [address] [place] [address] Gemini Chavez MD Nurse Triage 02/15/2025 Orders Only [facility] External Provider, [facility] 02/11/2025 Refill [facility] [address] [place] [address] Gemini Chavez MD Hypertension, unspecified type 02/04/2025 Refill [facility] [address] [place] [address] Gemini Chavez MD Acquired hypothyroidism 02/03/2025 Telephone [facility] [address] [place] [address] Gemini Chavez MD Fyi 02/02/2025 Orders Only GENERIC EXTERNAL DATA DEPARTMENT Provider, Generic External Data 01/31/2025 Patient Outreach [facility] [address] [place] [address] Gemini Chavez MD Care Coordination ([facility] Agency) 01/28/2025 Refill [facility] [address] [place] [address] Gemini Chavez MD 01/27/2025 Refill [facility] [address] [place] [address] Gemini Chavez MD Acquired hypothyroidism 01/20/2025 Orders Only GENERIC EXTERNAL DATA DEPARTMENT Provider, Generic External Data 01/18/2025 Telephone [facility] [address] [place] [address] Gemini Chavez MD NOV RECALL 12/22/2024 Telephone [facility] [address] [place] [address] Gemini Chavez MD Hypotension 12/16/2024 Refill [facility] [address] [place] [address] Gemini Chavez MD Pure hypercholesterolemia 12/15/2024 10:30 AM EDT Office Visit [facility] [address] [place] [address] Jessica Ho, CEDRIC Chronic left shoulder pain (Primary Dx); Acute reactive otitis externa of both ears 12/15/2024 Telephone [facility] [address] [place] [address] Gemini Chavez MD telephone call 12/15/2024 Travel 12/14/2024 Telephone [facility] [address] [place] [address] Gemini Chavez MD Nurse Triage 12/11/2024 Orders Only [facility] External Provider, [facility] 12/01/2024 Refill [facility] [address] [place] [address] Gemini Chavez MD Prediabetes 12/01/2024 Refill [facility] [address] [place], [place] [phone] Gemini Chavez MD Primary hypertension 11/29/2024 11:00 AM EDT Office Visit [facility] [address] [place] [address] Gemini Chavez MD Chronic left shoulder pain (Primary Dx); Hypertension, unspecified type; Chronic systolic heart failure (CMS/HCC); COPD with asthma (CMS/HCC); Atrial fibrillation with RVR (CMS/HCC); Stage 3 chronic kidney disease, unspecified whether stage 3a or 3b CKD (CMS/HCC); Prediabetes; Class 1 obesity due to excess calories with serious comorbidity and body mass index (BMI) of 34.0 to 34.9 in adult 11/29/2024 Telephone [facility] [address] [place] [address] Gemini Chavez MD Prior Authorization (CCA PA: [...] your housing situation today? I have hubert tico 11/29/[address] you li [...] Description 03/11/2025 10:30 AM EDT Office Visit [facility] [address] [place] [address] Abhishek Gregory FNP [address] [place] [address] 03/23/2025 11:15 AM EST Office Visit [address] [address] Gemini Chavez MD [address] [place] [address] Health Maintenance Due Date Last Done Comments [...] Screening 11/29/2025 11/29/2024 Depression Screening 11/29/2025 11/29/2024, 07/21/20 25 Diabetes: Hemoglobin A1C 11/29/2025 025, 11/11/2023, 05/20/2023, Additional history exists SDOH Screening 11/29/2025 11/29/2024 Tobacco Screening 02/22/2026 02/22/2025 Lipid Panel 05/03/2029 05/03/2024, 010 01/2024, 12/13/2022, [...] NOW Rapid Molecular) (02/22/2025 9:09 AM EDT) Influenza B Negative Negative, Indeterminate [facility] Swab 02/22/2025 9:09 AM EDT Christal Edmonds MD POINT OF CARE TEST ENTER/EDIT ORDERABLES Final Result [facility] [address] [place] [address] [phone] * Influenza A (ID NOW Rapid Molecular) (02/22/2025 9:09 AM EDT) [facility] Influenza A Negative Negative, Indeterminate [facility] Swab 02/22/2025 9:09 AM EDT Christal Edmonds MD POINT OF CARE TEST ENTER/EDIT ORDERABLES Final Result Performing Organization Address City/[facility]/ZIP Co de Phone Number [facility] [address] [place] [address] [phone] * POCT rapid strep A manually resulted (02/22/2025 9:09 AM EDT) [facility] Rapid Strep A Screen Negative Negative, None Detected Swab 02/22/2025 9:09 AM EDT Christal Edmonds MD POINT OF CARE TEST ENTER/EDIT ORDERABLES Final Result * POCT Rapid COVID Ag (02/22/2025 8:55 AM EDT) [facility] Rapid COVID Ag Negative Swab 02/22/2025 8:55 AM EDT Christal Edmonds MD POINT OF CARE TEST ENTER/EDIT ORDERABLES Final Result * (ABNORMAL) Basic Metabolic Panel (02/21/2025 6:37 AM EDT) Only the most recent of2 resultswithin the time period is included. [facility] Sodium 144 135 - 145 mmol/L [facility] Potassium 3.4 3.3 - 5.1 mmol/L [facility] Chloride 105 96 - 108 mmol/L [facility] Carbon Dioxide 30(H) 22 - 29 mmol/L [facility] Anion Gap 12 12 - 20 [facility] Urea Nitrogen (BUN) 26(H) 9 - 16 mg/dL [facility] Creatinine, Serum 1.17 0.5 - 1.4 mg/dL [facility] Estimated Glomerular Filt Rate >60 [facility] Comment:Chronic Kidney Disea se: Estimated GFR < 60 mL/min/1.72g5Dhzzjx Kidney Disease: Estimated GFR < 15 mL/min/1.73m2 Glucose 83 60 - 115 mg/dL [facility] Calcium 9.0 8.4 - 10.2 mg/dL [facility] 02/21/2025 6:37 AM EDT 02/21/2025 6:37 AM EDT us Generic External Data Provider LAB BLOOD ORDERAB LES Final Result Performing Organization Address City/State/[facility] de Phone Number [facility] [address] [place] [phone] * MR Shoulder w/o Contrast Left (02/18/2025 10:00 AM EDT) Anatomical Region Laterality Modality Upper Extremities, Shoulder Left Magn etic Resonance 02/18/2025 10:0 0 AM EDT Narrative 02/18/2025 12:15 PM EDT [place] [address] Magnetic Resonance Report Signed Patient: Min Rees MR#: [id number] : 1955 Acct:[id number] Age/Sex: 69 / M ADM Date: 02/18/25 Loc: HO.MRI Attending Dr: Mario Wild PA-C Ordering Physician: Mario Wild PA-C Date of Service: 02/18/25 Procedure(s): MR shoulder LT wo con Accession Number(s): [id number] cc: Gemini Chavez MD; Mario Wild PA-C [...] 02/18/25 1213 DD/ 1000 TD/TT: 02/18/25 1019 Local Coordinator: Procedure Note Donotuseinterpreter, Image - 02/18/[address] [address] Magnetic Resonance Report Signed Patient: Min ReesMR#: [id number] : 6Acct:[id number] Age/Sex: 69 / MADM Date: 02/18/25 Loc: HO.MRI Attending Dr: Mario Wild PA-C Ordering Physician: Mario Wild PA-C Date of Service: 02/18/25 Procedure(s): MR shoulder LT wo con Accession Number(s): [id number] cc: Gemini Chavez MD; Mario Wild PA-C [...] 02/18/25 1213 DD/ 1000 TD/TT: 02/18/25 1019 Local Coordinator: RHODA us [facility] External Provider IMG MRI PROCEDURES Final Result * High Sensitivity Troponin I (02/15/2025 11:52 AM EDT) TROPONIN I HIGH SENSITIVITY 4.1 <3.5 - 35.0 ng/L [facility] Comment:The Ham high sens itivity Troponin-I results should beused in conjunction with other diagnostic information suchas ECG, clinical observations and information, and patientsymptoms to aid in the diagnosis of VA. 02/15/2025 11:5 2 AM EDT 02/15/2025 11:56 AM EDT us Generic External Data Provider LAB BLOOD ORDERAB LES Final Result Performing Organization Address City/State/[facility] Co de Phone Number [facility] [address] [place] [phone] * XR Chest 2 Views (02/15/2025 9:30 AM EDT) Anatomical Region Laterality Modality Chest Radiographic Claire ging 02/15/2025 9:30 AM EDT Narrative 02/15/2025 9:44 AM EDT [address] [address] XRay Report Signed Patient: Min Rees MR#: [id number] : 1955 Acct:[id number] Age/Sex: 69 / M ADM Date: 02/15/25 Loc: .ED Attending Dr: Ordering Physician: Tavia Garcia Date of Service: 02/15/25 Procedure(s): XR chest 2V Accession Number(s): [id number] cc: Gemini Chavez MD; Tavia Garcia Reason [...] in OV> 02/15/25940 DD/ 9 TD/TT: 02/15/25934 Local Coordinator: Procedure Note Donotsuhailinterpreter, Image - 02/15/[address] [address] XRay Report Signed Patient: Mini Rees#: [id number] : 6Acct:[id number] Age/Sex: 69 / MADM Date: 02/15/25 Loc: HO.ED Attending Dr: Ordering Physician: Tavia Garcia Date of Service: 02/15/25 Procedure(s): XR chest 2V Accession Number(s): [id number] cc: Gemini Chavez MD; Tavia Garcia Reason [...] in OV> 02/15/25940 DD/ 9 TD/TT: 02/15/25934 Local Coordinator: us [facility] External Provider IMG XR PROCEDURES Final Result * (ABNORMAL) Glucose, Whole Blood (02/02/2025 9:24 AM EDT) Glucose, Whole Blood 125(H) 60 - 115 mg/dL [facility] Comment:METER #: [id number] 02/02/2025 9:24 AM EDT 02/02/2025 9:28 AM EDT us Generic External Data Provider LAB BLOOD ORDERAB LES Final Result [facility] [address] [place] [phone] * XR Shoulder 2+ Views Left (12/11/2024 9:05 AM EDT) Anatomical Region Laterality Modality Upper Extremities, Shoulder Left Radi ographic Imaging 12/11/2024 9:05 AM EDT Narrative 12/11/2024 9:06 AM EDT [address] [address] XRay Report Signed Patient: Min Rees MR#: [id number] : 1955 Acct:[id number] Age/Sex: 69 / M ADM Date: 12/11/24 Loc: HO.ED Attending Dr: Ordering Physician: Zenaida Zaragoza MD Date of Service: 12/11/24 Procedure(s): XR shoulder LT min 2V Accession Number(s): [id number] cc: Gemini Chavez MD; Zenaida Zaragoza MD [...] in OV> 12/11/24905 DD/ 4 TD/TT: 12/11/24904 Local Coordinator: Procedure Note Donotuseinterpreter, Image - 12/11/[address] [address] XRay Report Signed Patient: Min Rees#: [id number] : 6Acct:[id number] Age/Sex: 69 / MADM Date: 12/11/24 Loc: HO.ED Attending Dr: Ordering Physician: Zenaida Zaragoza MD Date of Service: 12/11/24 Procedure(s): XR shoulder LT min 2V Accession Number(s): [id number] cc: Gemini Chavez MD; Zenaida Zaragoza MD [...] in OV> 12/11/24905 DD/ 4 TD/TT: 12/11/24904 Local Coordinator: [facility] External Provider IMG XR PROCEDURES Edited Result - Final * (ABNORMAL) POCT HGB A1C (11/29/2024 11:22 AM EDT) Hemoglobin A1C 5.7 4.0 - 5.7 % QC Media Lot # [id number] Lot# Expiration Date 3, Blood 11/29/2024 11:2 2 AM EDT Gemini Chung MD POINT OF CARE TEST ENTER/EDIT ORDERABLES Edited Result - Final * POCT Glucose (11/29/2024 11:22 AM EDT) Glucose Blood, POC 178 60 - 200 mg/dL QC Media Lot # [id number] Lot# Expiration Date 611,901 Blood Capillary blood specimen / Unknown 11/29/2024 [...] to 5OO mg/dL Cholesterol 118 <200 mg/dL [facility] Comment:Desirable Cholestero l: less than 200 mg/dLBorderline High Cholesterol: 200-239 mg/dLHigh Cholesterol: greater than 239 mg/dL LDL Cholesterol Calculated 41 <100 mg/dL [facility] Comment:Desirable LDL: less than 100 mg/dLNear Optimal/Above Optimal LDL: 110- 129 mg/dLBorderline High LDL: 130-159 mg/dLHigh LDL: 160-189 mg/dLVery High LDL: greater than or equal to 190 mg/dL HDL Cholesterol 31(L) >40 mg/dL [facility] Comment:Desirable HDL: great er than 40 mg/dL Note: This HDL assay may give artificially low results in patients with liver disease. Blood Venous blood specimen / Unknown 05/03/2024 8:15 AM EST 05/03/2024 11:40 AM EST us Gemini Chung MD LAB BLOOD ORDERABLES Final Result [facility] [address] [place] [address] [phone] * Hm Colonoscopy (01/21/2024 10:19 AM EDT) Colonoscopy Normal Normal Narrative Jamila Page - 01/21/2024 10:19 AM EDT Repeat Colonoscopy in 6-12 months due to poor right prep or earlier if clinically indicated see external hospital admission note on 01/21/2024 us Historical Provider HEALTH MAINTENANCE Edited Result - Final * Hepatitis C Antibody Reflex (12/13/2022 8:21 AM EDT) Hepatitis C Antibody Nonreactive Nonreactive [facility] Comment:Antibodies to HCV no t detected; does not exclude early acuteHCV infection. 12/13/2022 8:21 AM EDT 12/13/2022 11:08 AM EDT us Gemini Chung MD LAB BLOOD ORDERABLES Final Result [facility] [address] [place] [address] [phone] from Last 3 Months or Most Recently Relevant to Health Maintenance Insurance [facility] [employer] OPTIONS (HMO D-SNP) [facility] STANDARD Care Teams Internal Control Analyst Relationship Specialty Start Date End Date Gemini Chavez MD [address] [place] [address] PCP - General Family Medicine 01/21/18 [employer] 03/28/24
--- OUTSIDE RECORDS SUMMARY | 2025-03-01 17:58 | XMS_ITS | Encounter Summary ---
Author Organization [employer] Address [address] [facility] 7t [place] [address] Care Team Providers Care Correctional Lieutenant Name Role Phone Gemini Chavez MD Primary Care Provide r Reason for Visit * Reason Onset Date Comments Pre-op appt 02/28/2025 Encounter Details Date Type Department Care Team ([facility] st Contact Info) Description 02/28/2025 Telephone [facility] [address] [place] [address] Gemini Chavez MD [address] [place] [address] Pre-op appt Social History Tobacco Use Types Packs/Day Years [...] encounter Miscellaneous Notes * Telephone Encounter - Tone Moore - 03/01/2025 2:11 PM EDT Facility agreed to pre-op on 03/11 with CEDRIC Gregory Detailed VM left to pt * Telephone Encounter - Shima Liang - 02/28/2025 2:34 PM EDT Date of Surgery: 04-06-2025 Surgical procedure being done: left shoulder surgery possible rotator Type of anesthesia: local anesthesia Lab needed: Yes EKG: Yes Surgeon's name: Romero Ahumada MD Facility name: [facility] Surgeon's office number: [phone] Surgeon's office fax number: [phone] Contact name: Grisel Last office note from surgeon requested: Yes documented in this encounter Plan of Treatment Upcoming Encounters Date Type Department Care Team ([facility] st Contact Info) Description 03/11/2025 10:30 AM EDT Office Visit [facility] [address] [place] [address] Abhishek Gregory FNP [address] [place] [address] 03/23/2025 11:15 AM EST Office Visit [facility] [address] [place] [address] Gemini Chavez MD [address] [place] [address] documented as of this encounter Visit Diagnoses Not on filedocumented in this encounter Additional Health Concerns Assessment Noted Time PHQ-9 Depression Total Score: 0 11/30/19 25 10:53 AM EDT documented as of this encounter Care Teams Correctional Lieutenant Relationship Specialty Start Date End Date Gemini Chavez MD [address] [place] [address] PCP - General Family Medicine 01/21/18 [place] 03/28/24 documented as of this encounter
--- OUTSIDE RECORDS SUMMARY | 2025-03-01 17:58 | XMS_ITS | Encounter Summary ---
Author Organization [employer] Address [address] [facility] 7t [place] [address] Care Team Providers Care Type Rolling Machine Operator Name Role Phone Gemini Chavez MD Primary Care Provide r Reason for Visit * Reason Onset Date Comments Nurse Triage 03/26/2023 Encounter Details Date Type Department Care Team ([facility] st Contact Info) Description 03/26/2023 Telephone [facility] [address] [place], [place] [phone] Gemini Chavez MD 230 [place] [address] Nurse Triage Social History Tobacco Use Types [...] 03/26/2023 11:47 AM EST Triage call with [place] Professor [place] [id number] Pt reports ingrown toenail great toe on left foot for 3 days now. Pt reports it is painful and causes some limping when ambulating. Pt denies redness, drainage. Pt requests a referral to motor and controls tester which was very helpful last time this happened. Pt is advised will send this request to PCP and nursing team for follow up and Pt agreed. Pt declined to come to [facility] only wants motor and controls tester to cut this toenail. Protocol Used: [...] accepted this outcome Please contact pt at [phone] (lining presser needed) documented in this encounter Plan of Treatment Upcoming Encounters Date Type Department Care Team ([facility] Contact Info) Description 03/11/2025 10:30 AM EDT Office Visit [facility] [address] [place] [address] [phone] Abhishek Gregory, LEV 230 [place] [address] 03/23/2025 11:15 AM EST Office Visit [facility] [address] [place] [address] [phone] Gemini Chavez MD [address] [place] [address] [phone] documented as of this encounter Visit Diagnoses Not on filedocumented in this encounter Additional Health Concerns Assessment Noted Time PHQ-9 Depression Total Score: 6 05/16/19 23 1:42 PM EST documented as of this encounter Care Teams Type Rolling Machine Operator Relationship Specialty Start Date End Date Gemini Chavez MD [address] [place] [address] [phone] PCP - General Family Medicine 01/21/18 [employer] 03/28/24 documented as of this encounter
--- OUTSIDE RECORDS SUMMARY | 2025-03-01 17:58 | XMS_ITS | Encounter Summary ---
Author Organization [employer] Address 75 [facility] 7t [place] [address] Care Team Providers Care Field Service Tech Name Role Phone Gemini Chavez MD Primary Care Provide r Reason for Visit * Reason Onset Date Comments Referral 03/14/2023 Encounter Details Date Type Department Care Team ([facility] st Contact Info) Description 03/14/2023 Telephone [facility] 230 [place], [place] [phone] Gemini Chavez MD 230 [place], [place] [phone] Referral Social History Tobacco Use Types Packs/Day [...] t he electric, gas, oil or water [employer] threatened to shut off services in your [...] Description 03/11/2025 10:30 AM EDT Office Visit [address] [address] Abhishek Gregory FNP [address] [place] [address] 03/23/2025 11:15 AM EST Office Visit [address] [address] Gemini Chavez MD [address] [place] [address] documented as of this encounter Visit Diagnoses Not on filedocumented in this encounter Additional Health Concerns Assessment Noted Time PHQ-9 Depression Total Score: 6 05/16/19 23 1:42 PM EST documented as of this encounter Care Teams Field Service Tech Relationship Specialty Start Date End Date Gemini Chavez MD [address] [place] [phone] PCP - General Family Medicine 01/21/18 [employer] 03/28/24 documented as of this encounter
--- OUTSIDE RECORDS SUMMARY | 2025-03-01 17:58 | XMS_ITS | Encounter Summary ---
Author Organization [employer] Address 75 [facility] 7t [place] [address] Care Team Providers Care Photocopying Equipment Repairer Name Role Phone Gemini Chavez MD Primary Care Provide r Reason for Visit * Reason Comments Med Refill Encounter Details Date Type Department Care Team ([facility] st Contact Info) Description 05/08/2024 Refill [facility] 230 [place], [place] [phone] Gemini Chavez MD 230 [place] [address] Class 1 obesity due to excess calories [...] 03/11/2025 10:30 AM EDT Office Visit [facility] [address] [place] [phone] Abhishek Gregory FNP [address] [place] [address] 03/23/2025 11:15 AM EST Office Visit [facility] [address] [place] [address] Gemini Chavez MD [address] [place] [address] documented as of this encounter Visit Diagnoses Diagnosis Class 1 obesity due to excess calories with serious comorbidity and body mass index (BMI) of 33.0 to 33.9 in adult documented in this encounter Additional Health Concerns Assessment Noted Time PHQ-9 Depression Total Score: 0 09/03/19 24 9:55 AM EDT documented as of this encounter Care Teams Photocopying Equipment Repairer Relationship Specialty Start Date End Date Gemini Chavez MD 230 [place] [address] PCP - General Family Medicine 01/21/18 [employer] 03/28/24 documented as of this encounter
--- OUTSIDE RECORDS SUMMARY | 2025-03-01 17:58 | XMS_ITS | Encounter Summary ---
Author Organization [employer] Address 75 [facility] 7t [place] [address] Care Team Providers Care Tower Supervisor Name Role Phone Gemini Chavez MD Primary Care Provide r Encounter Details Date Type Department Care Team (Late st Contact Info) Description 02/19/2023 Abstract [facility] 230 [place], [place] [phone] Gemini Chavez MD 230 [place], [place] [phone] Social History Tobacco Use Types Packs/Day Years [...] Description 03/11/2025 10:30 AM EDT Office Visit [facility] [address] [place] [address] Abhishek Gregory FNP 230 [place], [place] [phone] 03/23/2025 11:15 AM EST Office Visit [address] [address] Gemini Chavez MD [address] [place] [address] documented as of this encounter Visit Diagnoses Not on filedocumented in this encounter Additional Health Concerns Assessment Noted Time PHQ-9 Depression Total Score: 6 05/16/19 23 1:42 PM EST documented as of this encounter Care Teams Tower Supervisor Relationship Specialty Start Date End Date Gemini Chavez MD [address] [place] [address] [phone] PCP - General Family Medicine 01/21/18 [employer] 03/28/24 documented as of this encounter
--- OUTSIDE RECORDS SUMMARY | 2025-03-01 17:58 | XMS_ITS | Encounter Summary ---
Author Organization [employer] Address 75 [facility] 7t [place] [address] Care Team Providers Care Websphere Portal Developer Name Role Phone Gemini Chavez MD Primary Care Provide r Encounter Details Date Type Department Care Team (Late st Contact Info) Description 05/10/2024 Orders Only [facility] 230 [place], [place] [phone] Gemini Chavez MD 230 [place], [place] [phone] Stage 3 chronic kidney disease, unspecified whether [...] Description 03/11/2025 10:30 AM EDT Office Visit [address] [address] Abhishek Gregory FNP [address] [place] [address] 03/23/2025 11:15 AM EST Office Visit [address] [address] Gemini Chavez MD [address] [place] [address] documented as of this encounter Visit Diagnoses Diagnosis Stage 3 chronic kidney disease, unspecified whether stage 3a or 3b CKD (CMS/HCC) (HCC)- Primary Class 2 severe obesity due to excess calories with serious comorbidity and body mass index (BMI) of 38.0 to 38.9 in adult documented in this encounter Additional Health Concerns Assessment Noted Time PHQ-9 Depression Total Score: 0 09/03/19 9:55 AM EDT documented as of this encounter Care Teams Websphere Portal Developer Relationship Specialty Start Date End Date Gemini Chavez MD [address] [place] [address], [place] [address] PCP - General Family Medicine 01/21/18 [employer] 03/28/24 documented as of this encounter
--- OUTSIDE RECORDS SUMMARY | 2025-03-01 17:58 | XMS_ITS | Encounter Summary ---
Author Organization [employer] Address 75 [facility] 7t [place] [address] Care Team Providers Care Vp Packaging Name Role Phone Gemini Chavez MD Primary Care Provide r Encounter Details Date Type Department Care Team (Late st Contact Info) Description 06/18/2024 Orders Only [facility] 230 [place], [place] [phone] Gemini Chavez MD 230 [place], [place] [phone] Social History Tobacco Use Types Packs/Day Years [...] Description 03/11/2025 10:30 AM EDT Office Visit [facility] [address] [place] [address] Abhishek Gregory FNP [address] [place] [address] 03/23/2025 11:15 AM EST Office Visit [address] [address] Gemini Chavez MD [address] [place] [address] documented as of this encounter Visit Diagnoses Not on filedocumented in this encounter Additional Health Concerns Assessment Noted Time PHQ-9 Depression Total Score: 0 09/03/19 9:55 AM EDT documented as of this encounter Care Teams Vp Packaging Relationship Specialty Start Date End Date Gemini Chavez MD [address] [place] [address] [phone] PCP - General Family Medicine 01/21/18 [employer] 03/28/24 documented as of this encounter
--- OUTSIDE RECORDS SUMMARY | 2025-03-01 17:58 | XMS_ITS | Encounter Summary ---
Author Organization [employer] Address 75 [facility] 7t [place] [address] Care Team Providers Care Electrophonic Engineer Name Role Phone Gemini Chavez MD Primary Care Provide r Encounter Details Date Type Department Care Team (Late st Contact Info) Description 07/10/2023 Orders Only [facility] 230 [place], [place] [phone] Gemini Chavez MD 230 [place], [place] [phone] Mixed stress and urge urinary incontinence (Primary [...] t he electric, gas, oil or water [employer] threatened to shut off services in your [...] Description 03/11/2025 10:30 AM EDT Office Visit [facility] [address] [place] [address] Abhishek Gregory FNP [address] [place] [address] 03/23/2025 11:15 AM EST Office Visit [address] [address] Gemini Chavez MD [address] [place] [address] documented as of this encounter Visit Diagnoses Diagnosis Mixed stress and urge urinary incontinence- Primary Mixed incontinence urge and stress (male)(female) documented in this encounter Additional Health Concerns Assessment Noted Time PHQ-9 Depression Total Score: 6 05/16/19 23 1:42 PM EST documented as of this encounter Care Teams Electrophonic Engineer Relationship Specialty Start Date End Date Gemini Chavez MD [address] [place] [address] PCP - General Family Medicine 01/21/18 [employer] 03/28/24 documented as of this encounter
--- OUTSIDE RECORDS SUMMARY | 2025-03-01 17:58 | XMS_ITS | Encounter Summary ---
Author Organization [employer] Address 75 [facility] 7t [place] [address] Care Team Providers Care Continuous Washer Operator Name Role Phone Gemini Chavez MD Primary Care Provide r Reason for Visit * Reason Comments Med Refill Encounter Details Date Type Department Care Team (Late st Contact Info) Description 10/20/2023 Refill [facility] [address] [place], [place] [phone] Gemini Chavez MD 230 [facility] [place] [address] Seasonal allergies Social History Tobacco Use Types [...] Description 03/11/2025 10:30 AM EDT Office Visit [facility] [address] [place] [address] Abhishek Gregory FNP [address] [place] [address] 03/23/2025 11:15 AM EST Office Visit [address] [address] Gemini Chavez MD [address] [place] [phone] documented as of this encounter Visit Diagnoses Diagnosis Seasonal allergies Allergic rhinitis, cause unspecified documented in this encounter Additional Health Concerns Assessment Noted Time PHQ-9 Depression Total Score: 0 09/03/19 9:55 AM EDT documented as of this encounter Care Teams Continuous Washer Operator Relationship Specialty Start Date End Date Gemini Chavez MD [address] [place] [address] PCP - General Family Medicine 01/21/18 [employer] 03/28/24 documented as of this encounter
--- OUTSIDE RECORDS SUMMARY | 2025-03-01 17:58 | XMS_ITS | Encounter Summary ---
Author Organization [employer] Address 75 [facility] 7t [place] [address] Care Team Providers Care Technical Designer Name Role Phone Gemini Chavez MD Primary Care Provide r Reason for Visit * Reason Comments Med Refill Encounter Details Date Type Department Care Team ([facility] st Contact Info) Description 10/16/2024 Refill [facility] 230 [place], [place] [phone] Gemini Chavez MD 230 [place] [address] Prediabetes Social History Tobacco Use Types Packs/Day [...] Office Visit [facility] [address] [place] [address] Abhishek Gregory FNP [address] [place] [address] 03/23/2025 11:15 AM EST Office Visit [address] [address] Gemini Chavez MD [address] [place] [address] documented as of this encounter Visit Diagnoses Diagnosis Prediabetes Other abnormal glucose documented in this encounter Additional Health Concerns Assessment Noted Time PHQ-9 Depression Total Score: 0 09/03/19 9:55 AM EDT documented as of this encounter Care Teams Technical Designer Relationship Specialty Start Date End Date Gemini Chavez MD [address] [place] [address] PCP - General Family Medicine 01/21/18 [employer] 03/28/24 documented as of this encounter
--- OUTSIDE RECORDS SUMMARY | 2025-03-01 17:58 | XMS_ITS | Encounter Summary ---
Author Organization [facility] Address [address] [facility] [address] [place] [address] Phone Care Team Providers Care Licensed Mental Health Counselor Name Role Phone Curt Richey MD Primary Care Provider + Encounter Details Date Type Department Care Team (Latest Contact Info) Description 12/24/2019 Ancillary [facility] [address] [place] [address] [place] [address] Curt Richey MD [address] [place] [address] [email or web address] Atrial fibrillation, unspecified type Social History Tobacco [...] type documented in this encounter Care Teams Licensed Mental Health Counselor Relationship Specialty Start Date End Date Curt Richey MD [email or web address] PCP - General Cardiology 12/21/19 documented as of this encounter Additional Source Comments The information contained in this document represents components of the legal health record. It is not the complete legal health record.[facility]
--- OUTSIDE RECORDS SUMMARY | 2025-03-01 17:58 | XMS_ITS | Encounter Summary ---
Author Organization [facility] Address [address] [place] [address] Phone Care Team Providers Care Pie Bottomer Name Role Phone Curt Richey MD Primary Care Provider + Encounter Details Date Type Department Care Team (Late st Contact Info) Description 12/24/2019 Ancillary Orders [facility] [address] [facility] 3rd Floor, [address] [place] [address] Curt Richey MD [address] [place] [address] Social History Tobacco Use Types Packs/Day Years [...] on filedocumented in this encounter Care Teams Pie Bottomer Relationship Specialty Start Date End Date Curt Richey MD PCP - General Cardiology 12/21/19 documented as of this encounter Additional Source Comments The information contained in this document represents components of the legal health record. It is not the complete legal health record.[facility]
--- OUTSIDE RECORDS SUMMARY | 2025-03-01 17:58 | XMS_ITS | Clinical Summary ---
Author Organization [facility] Address [address] [facility] [address] [place] [address] Phone Care Team Providers Care Dye Room Helper Name Role Phone Curt Richey MD Primary [...] Medical Devices Not on file Insurance [address] [place] [id number] [facility] ONE C[employer] MEDICARE REPLACEMENT [employer] [facility] MEDICARE REPLACEMENT MEDICARE REPLACEMENT CARE [place]IC[place] [address] [place] [address] [employer] MEDICARE REPLACEMENT Care Teams Dye Room Helper Relationship Specialty Start Date End Date Curt Richey MD PCP - General Cardiology 12/21/19 Additional Source Comments The information contained in this document represents components of the legal health record. It is not the complete legal health record.[facility]
== END 2025-03-01 14:06 | disposition home or self-care (01) ==
LOC: HO.HKA 13:39
PROVIDERS: PCP Internal Medicine; Visit Provider Internal Medicine Hypertension Specialist
DX: N18.9 Chronic kidney disease, unspecified (principal)
CPT/HCPCS: 99214

== ENCOUNTER → 2025-03-01 13:38 | Outpatient (BNVA) | payer OTHER, SELFPAY | PROVIDERS: PCP Internal Medicine; Visit Provider Internal Medicine Hypertension Specialist | DX: I10 Essential (primary) hypertension (principal); N18.9 Chronic kidney disease, unspecified | CPT/HCPCS: 99212 ==

== ENCOUNTER 2025-03-03 02:59 | Emergency (ER) | payer OTHER, SELFPAY ==
--- NOTE | 2025-03-03 | ECG_ITS ---
Test Reason : SOB Blood Pressure : */* mmHG Vent. Rate : 84 BPM Atrial Rate : * BPM P-R Int : * ms QRS Dur : 84 ms QT Int : 372 ms P-R-T Axes : * 1 12 degrees QTcB Int : 439 ms Atrial fibrillation Abnormal ECG When compared with ECG of 15-Feb-2025 12:05, No significant change was found Referred By: Generic ED Physician Electronically Signed By: ANDIE DAVISON MD
--- NOTE | ~2025-03-03 | CT_ITS ---
CLINICAL HISTORY: Mid lower chest pain radiating to the back CT angiography chest, abdomen and pelvis with contrast. 3-D postprocessing. Comparison: None provided Findings: The ascending aorta is dilated at 4.1 cm. No dissection. Great vessels, thoracoabdominal aorta, mesenteric/renal arteries, and iliofemoral arteries are otherwise patent without aneurysm, dissection, hemodynamically significant stenoses, or occlusion. The visualized thyroid and mediastinum are unremarkable. The heart is normal size. No consolidation or effusion. Unremarkable gallbladder and solid organs. Bilateral simple appearing renal cysts. Nonobstructing subcentimeter stones. No hydronephrosis. No bowel obstruction, pneumoperitoneum, or pneumatosis. Pelvic contents unremarkable. Normal appendix. No fluid collections or adenopathy. [place] in the right lower quadrant. No acute fractures. IMPRESSION: 1. Dilation of the ascending aorta up to 4.1 cm. No dissection or significant stenosis. Scattered atheromatous plaquing. 2. No acute pulmonary embolus. 3. Additional findings of chest, abdomen, and pelvis as noted. This document has been electronically signed by: Lesly Fleming MD on 03/03/2025 06:13:05
--- NOTE | ~2025-03-03 | CT_ITS ---
CLINICAL HISTORY: Mid lower chest pain radiating to the back CT angiography chest, abdomen and pelvis with contrast. 3-D postprocessing. Comparison: None provided Findings: The ascending aorta is dilated at 4.1 cm. No dissection. Great vessels, thoracoabdominal aorta, mesenteric/renal arteries, and iliofemoral arteries are otherwise patent without aneurysm, dissection, hemodynamically significant stenoses, or occlusion. The visualized thyroid and mediastinum are unremarkable. The heart is normal size. No consolidation or effusion. Unremarkable gallbladder and solid organs. Bilateral simple appearing renal cysts. Nonobstructing subcentimeter stones. No hydronephrosis. No bowel obstruction, pneumoperitoneum, or pneumatosis. Pelvic contents unremarkable. Normal appendix. No fluid collections or adenopathy. [place] in the right lower quadrant. No acute fractures. IMPRESSION: 1. Dilation of the ascending aorta up to 4.1 cm. No dissection or significant stenosis. Scattered atheromatous plaquing. 2. No acute pulmonary embolus. 3. Additional findings of chest, abdomen, and pelvis as noted. This document has been electronically signed by: Lesly Fleming MD on 03/03/2025 06:13:52
[2025-03-03 03:08] VITALS: BP 177/109; BP 198/104; PULSE 90; PULSE 95; RESP 19; TEMP 36.4; O2SAT 95; BMI 35.5
[2025-03-03 03:27] LABS: Venous Blood Gas Refer to POC result
[2025-03-03 03:27] LABS: Hematocrit 40.0 % (42.0-52.0); Hemoglobin 13.5 g/dl (14.0-18.0); Imm Gran Abs Auto 0.11 X10*3/uL (0.00-0.03); Imm Gran Pct Auto 0.8 % (0.0-0.4); Lymphocytes Absolute Auto 1.2 X10*3/uL (1.2-4.9); MANUAL DIFF FLAG NO; Mean Corpuscular HGB Conc 33.8 g/dl (31.0-36.0); Mean Corpuscular Hemoglobin 29.7 pg (27.0-33.0); Mean Corpuscular Volume 88.1 fL (80.0-98.0); NRBC Abs Auto 0.000 X10*3/uL (0.0-0.012); NRBC Pct Auto 0.0 /100WBC (0.0-0.2); Platelet Count 162 X10*3/uL (160-400); Red Blood Count 4.54 X10*6/uL (4.60-5.80); White Blood Count 13.9 X10*3/uL (4.8-10.8)
--- NOTE | 2025-03-03 03:27 | ED.GENADULT ---
HPI - General Adult General Chief complaint: General Medical Stated complaint: weakness, cp abd pain Time Seen by Provider: 03/03/25 03:26 History of Present Illness ED Provider: Eleuterio Jenkins MD HPI narrative: 69-year-old male primarily coming in for chest pain. PMH: Moderate persistent asthma, AFib on anticoagulation, CE not on CPAP, hypertension, hyperlipidemia, vertigo, GERD Related Data Home Medications ?Medication ?Instructions ?Recorded ?Confirmed apixaban 5 mg tablet 5 mg PO BID 05/24/20 03/01/25 cholecalciferol (vitamin D3) 50 50 mcg PO DAILY 05/24/20 02/02/25 mcg (2,000 unit) tablet clonazepam 1 mg tablet 1 mg PO BID PRN Anxiety 05/24/20 03/01/25 hydroxyzine pamoate 25 mg capsule 25 mg PO BID PRN Anxiety 05/24/20 03/01/25 levothyroxine 100 mcg tablet 100 mcg PO DAILY 05/24/20 03/01/25 metoprolol succinate 200 mg 200 mg PO DAILY 05/24/20 03/01/25 tablet,extended release 24 hr rosuvastatin 40 mg tablet 40 mg PO DAILY 05/24/20 03/01/25 zolpidem 10 mg tablet 10 mg PO BEDTIME PRN Insomnia 05/24/20 03/01/25 albuterol sulfate 2.5 mg/3 mL 3 mg inhalation QID PRN Shortness 03/20/21 03/01/25 (0.083 %) solution for nebulization Of Breath Or Wheezing diclofenac sodium 1 % topical gel 2 g topical QID 08/08/23 02/02/25 vitamin E (dl, acetate) 45 mg (100 45 mg PO DAILY 08/08/23 03/01/25 unit) capsule metformin 500 mg tablet 500 mg PO BID 05/25/24 03/01/25 hydrochlorothiazide 25 mg tablet 25 mg PO DAILY 09/15/24 03/01/25 amlodipine 10 mg tablet 10 mg PO DAILY 01/20/25 03/01/25 lisinopril 40 mg tablet 20 mg PO DAILY 03/01/25 03/01/25 Previous Rx's ?Medication ?Instructions ?Recorded epinephrine 0.3 mg/0.3 mL 0.3 mg (0.3 mL) IM Q4H PRN 04/07/23 injection, auto-injector (EpiPen anaphylaxis #2 ea 2-Blaise) albuterol sulfate 90 mcg/actuation 2 puff PO Q6H PRN shortness of 12/23/23 aerosol inhaler (Ventolin HFA) breath or wheezing #18 ea vxfsgj-gssqcxgw-cfwsfia 2 cap PO BID #360 caps 09/17/24 (pork)36,000-114,000-180k unit capsule,del rel (Creon) pantoprazole 40 mg tablet,delayed 40 mg PO DAILY #30 tabs 09/17/24 release sennosides 8.6 mg tablet (Senna 17.2 mg (2 x 8.6 mg) PO BEDTIME 09/17/24 Laxative) #60 tabs simethicone 180 mg capsule 180 mg PO QID 30 days #120 caps 09/17/24 tramadol 50 mg tablet 50 mg PO BEDTIME 7 days #7 tabs 10/01/24 fluticasone 250 mcg-salmeterol 50 1 inh inhalation BID #180 ea 12/06/24 mcg/dose blistr powdr for inhalation (Wixela Inhub) oxycodone 5 mg tablet 5 mg PO Q8H PRN pain #7 tabs 12/11/24 L.acidophil,salivari-Bifido 1 cap PO DAILY #30 caps 02/15/25 bifidum-Strep thermoph 175 mg capsule (Acidophilus Probiotic Blend) prednisone 20 mg tablet 40 mg (2 x 20 mg) PO DAILY 5 days 02/15/25 #10 tabs sucralfate 1 gram tablet (Carafate) 1 g PO BID 2 weeks #28 tabs 03/03/25 Allergies Allergy/AdvReac Type Severity Reaction Status Date / Time Iodinated Contrast Media Allergy Unknown HIVES Verified 03/03/25 03:15 (CONTRAST, IV) kiwi (KIWI) Allergy Unknown THROAT Verified 03/03/25 03:15 SWELLING PMFSH Past Medical History Medical History Diabetes Hoarseness Dysphagia Colon cancer screening Throat disorder Bronchitis CHF (congestive heart failure) Afib Allergic rhinitis COPD (chronic obstructive pulmonary disease) CE (obstructive sleep apnea) Obesity (BMI 30-39.9) Hypothyroid Anxiety Palpitation HTN (hypertension) Surgical History Hx of umbilical hernia repair History of surgery on arm Hx of eye surgery Hx of colonoscopy Hx of knee surgery Hx of tonsillectomy Family History Family History Family/Other No problems noted. Social History Social History Household Members: None Housing: Apartment Do you presently have visiting nurse or other home services: Yes Alcohol intake: former Patient Tobacco Use Status: Former Tobacco user Smoked in Last 30 Days: No Use of substances other than those prescribed or required for medical reasons: No Advance Directives: Yes Advance Directives on File: Yes Advance Directives Date on File: 08/11/23 Do you have a plan to hurt others: No Plan service: No Physical Exam ED Exam Exam: EXAM: Gen: MORBIDLY OBESE Alert, awake, APPEARS UNCOMFORTABLE. Head: Atraumatic Eyes: Anicteric, Normal conjunctiva. ENT: Moist mucosa, no pallor. ? Neck: Supple. Skin: ?No observable rash or bruising on exposed or examined skin Respiratory: Breathing comfortably, No distress.Clear to auscultation bilaterally, symmetric chest expansion, No wheeze, rales, ronchi. Cardiovascular: Regular rate and rhythm. No murmurs or rub. Well perfused periphery, warm extremities. No edema. ? Abdominal: OBESE ROTUND ABDOMEN. NO PULSATILE MASS. NO FLUID WAVE. NO ECCHYMOSIS Soft, no objective distension. No palpable masses or obvious organomegaly. ?No guarding, no rebound tenderness or other peritoneal findings. : No flank tenderness. Neuro: Alert. Gross movement of all extremities intact. ? Psych: Calm. Cooperative. MSK: No grossly visible deformity. Vital signs: See flowsheet Vital Signs: Vital Signs - 24 hr 03/03/25 03:08 03/03/25 06:10 03/03/25 06:12 Temperature 97.5 F Pulse Rate 90 68 77 Respiratory Rate 19 12 12 Blood Pressure 177/109 H 174/104 H 168/94 H Pulse Oximetry 95 97 Oxygen Delivery Method Nasal Cannula Room Air BMI result Body Mass Index 35.5 Course Reevaluation(s) Reevaluation #1: 5:24 AM 03/03/2025 (Dr. Eleuterio CastilloZak): I was informed after the patient received the CT with IV contrast that both myself and air technician have inadvertently missed documented iodinated contrast allergy hives. The patient returned from CT after receiving the IV contrast completely asymptomatic does not appear to have any signs of angioedema or allergy at all. We will continue to monitor him closely for any signs of hypersensitivity or allergy. Medications Administered Discontinued Medications Generic Name Dose Route Start Last Admin Trade Name Freq PRN Reason Stop Dose Admin Al Hydroxide/Mg Hydroxide 30 ml 03/03/25 03:42 03/03/25 03:50 Magnesium Hydrox/Alum Hydrox 30 Ml Oral.Susp PO 03/03/25 03:43 30 ml ONCE ONE Administration Sodium Chloride 1,000 mls @ 999 mls/hr 03/03/25 04:45 03/03/25 05:50 Ns IV 03/03/25 05:45 Infused .Q1H1M ELMER Infusion Iohexol 80 ml 03/03/25 04:56 03/03/25 04:57 Iohexol 350 Mg/Ml 100 Ml Infus..Btl IV 03/03/25 04:57 80 ml ONCE ONE Administration Morphine Sulfate 5 mg 03/03/25 03:42 03/03/25 03:51 Morphine Sulfate 10 Mg/Ml Cartridge IVPUSH 03/03/25 03:43 5 mg ONCE ONE Administration Protocol Pantoprazole Sodium 40 mg 03/03/25 03:42 03/03/25 03:51 Pantoprazole Sodium 40 Mg/10 Ml Vial IVPUSH 03/03/25 03:43 40 mg ONCE ONE Administration Medical Decision Making Medical Decision Making MDM Narrative: Medical Decision Makin-YEAR-OLD MALE OBESE CKD NO KNOWN CARDIAC DISEASE. HERE WITH WORSENING MID LOWER CHEST AND EPIGASTRIC REGION PAIN. SOME RADIATION INITIAL CONCERN AND PLAN OF CARE WAS TO EXCLUDE AORTIC DISSECTION GIVEN THE PATIENT'S HYPERTENSION MEDICAL HISTORY AND SYMPTOMATOLOGY. CTA NEGATIVE. AFIB WITHOUT ISCHEMIC CHANGES ON ECG. BEDSIDE ECHO SOMEWHAT LIMITED VIEWS THOUGH I DID GET A REASONABLE PARASTERNAL LONG AXIS AND APICAL 4. THERE WAS NO EFFUSION NO OBVIOUS REGIONAL WALL MOTION ABNORMALITY OR HYPOKINESIS OR RV STRAIN. RENAL ULTRASOUND REASSURING. TROPONIN X2 NEGATIVE EXCLUDING MYOCARDIAL ISCHEMIA. GIVEN THE EPIGASTRIC REGION PAIN MAYBE GASTRITIS VERSUS PUD. PROTONIX MAALOX GIVEN. PATIENT'S PAIN IMPROVED AFTER MORPHINE MAALOX PPI. HE GOT IV FLUID. MONITORED SEVERAL HOURS AFTER CT WITH NO ALLERGIC REACTION TO CONTRAST. ADVISED TO CONTINUE ON PPI 40 MG PANTOPRAZOLE THAT I SEE IN HIS MED LIST. CARAFATE DAILY Preliminary Favored Differential Diagnosis: AORTIC DISSECTION, ACS, GASTRITIS, PANCREATITIS, BILIARY PATHOLOGY, among additional considered etiologies Testing Interpreted Independently: ?AFIB NO ACUTE ISCHEMIC CHANGES Radiology or Lab testing Results Reviewed: ?See below for details Consults: ?See below for details Independent Historians/External Chart Reviews: ?See below for details Social Determinants of Health Impacting MDM/Planning: ?See below for details Lab Data 03/03/25 03:20 03/03/25 03:20 Labs: Lab Results 03/03/25 03/03/25 03/03/25 Range/Units 03:19 03:20 03:26 WBC 13.9 H (4.8-10.8) X10*3/uL RBC 4.54 L (4.60-5.80) X10*6/uL Hgb 13.5 L (14.0-18.0) g/dl Hct 40.0 L (42.0-52.0) % MCV 88.1 (80.0-98.0) fL MCH 29.7 (27.0-33.0) pg MCHC 33.8 (31.0-36.0) g/dl RDW 12.1 (11.0-16.0) % Plt Count 162 (160-400) X10*3/uL MPV 9.7 (9.4-12.4) fL Immature Gran % (Auto) 0.8 H (0.0-0.4) % Neut % (Auto) 83.8 H (45-73) % Lymph % (Auto) 8.7 L (20-40) % Karnes % (Auto) 6.6 (2-11) % Eos % (Auto) 0.0 (0-4) % Baso % (Auto) 0.1 (0-2) % Lymph # (Auto) 1.2 (1.2-4.9) X10*3/uL Karnes # (Auto) 0.9 (0.1-1.2) X10*3/uL Eos # (Auto) 0.0 (0.0-0.4) X10*3/uL Baso # (Auto) 0.0 (0.0-0.2) X10*3/uL Abs Immat Gran (auto) 0.11 H (0.00-0.03) X10*3/uL Absolute Neuts (auto) 11.6 H (2.0-8.3) x10*3/uL Absolute Nucleated RBC 0.000 (0.0-0.012) X10*3/uL Nucleated RBC % (auto) 0.0 (0.0-0.2) /100WBC Hold Blue Top SEE NOTE VBG pH 7.45 H (7.32-7.43) VBG pCO2 40 mmHg VBG pO2 67 mmHg VBG HCO3 28 H (22-26) mmol/L VBG O2 Saturation 92.0 % VBG Base Excess 3.9 mmol/L Sodium 142 (135-145) mmol/L Potassium 3.7 (3.3-5.1) mmol/L Chloride 106 (96-108) mmol/L Carbon Dioxide 26 (22-29) mmol/L Anion Gap 14 (12-20) BUN 18 H (9-16) mg/dL Creatinine 1.02 (0.5-1.4) mg/dL Estim Creat Clear Calc 75.5 Estimated GFR > 60 Random Glucose 144 H (60-115) mg/dL Lactic Acid 3.0 H* (0.5-2.0) mmol/L Calcium 9.0 (8.4-10.2) mg/dL Total Bilirubin 1.2 H (0.0-1.0) mg/dL AST 23 (5-37) U/L ALT 49 H (0-40) U/L Alkaline Phosphatase 41 (39-117) U/L Troponin I High Sens 8.9 D (<3.5-35.0) ng/L Total Protein 5.9 L (6.5-8.0) g/dL Albumin 3.8 (3.5-5.0) g/dL Lipase 47 (8-78) U/L Influenza Type A (PCR) NEGATIVE (Negative) Influenza Type B (PCR) NEGATIVE (Negative) RSV RNA Qual (PCR) NEGATIVE (Negative) SARS-CoV-2 RNA (RT-PCR) NEGATIVE (Negative) 03/03/25 Range/Units 05:22 WBC (4.8-10.8) X10*3/uL RBC (4.60-5.80) X10*6/uL Hgb (14.0-18.0) g/dl Hct (42.0-52.0) % MCV (80.0-98.0) fL MCH (27.0-33.0) pg MCHC (31.0-36.0) g/dl RDW (11.0-16.0) % Plt Count (160-400) X10*3/uL MPV (9.4-12.4) fL Immature Gran % (Auto) (0.0-0.4) % Neut % (Auto) (45-73) % Lymph % (Auto) (20-40) % Karnes % (Auto) (2-11) % Eos % (Auto) (0-4) % Baso % (Auto) (0-2) % Lymph # (Auto) (1.2-4.9) X10*3/uL Karnes # (Auto) (0.1-1.2) X10*3/uL Eos # (Auto) (0.0-0.4) X10*3/uL Baso # (Auto) (0.0-0.2) X10*3/uL Abs Immat Gran (auto) (0.00-0.03) X10*3/uL Absolute Neuts (auto) (2.0-8.3) x10*3/uL Absolute Nucleated RBC (0.0-0.012) X10*3/uL Nucleated RBC % (auto) (0.0-0.2) /100WBC Hold Blue Top VBG pH (7.32-7.43) VBG pCO2 mmHg VBG pO2 mmHg VBG HCO3 (22-26) mmol/L VBG O2 Saturation % VBG Base Excess mmol/L Sodium (135-145) mmol/L Potassium (3.3-5.1) mmol/L Chloride (96-108) mmol/L Carbon Dioxide (22-29) mmol/L Anion Gap (12-20) BUN (9-16) mg/dL Creatinine (0.5-1.4) mg/dL Estim Creat Clear Calc Estimated GFR Random Glucose (60-115) mg/dL Lactic Acid 2.1 H* (0.5-2.0) mmol/L Calcium (8.4-10.2) mg/dL Total Bilirubin (0.0-1.0) mg/dL AST (5-37) U/L ALT (0-40) U/L Alkaline Phosphatase (39-117) U/L Troponin I High Sens 11.3 (<3.5-35.0) ng/L Total Protein (6.5-8.0) g/dL Albumin (3.5-5.0) g/dL Lipase (8-78) U/L Influenza Type A (PCR) (Negative) Influenza Type B (PCR) (Negative) RSV RNA Qual (PCR) (Negative) SARS-CoV-2 RNA (RT-PCR) (Negative) Discharge Plan Discharge Clinical Impression: Chest pain, Abdominal pain Patient Disposition: Home, Self-Care Instructions: Abdominal Pain (ED) Additional Instructions: DISCHARGE DIAGNOSES: CHEST/ABDOMINAL PAIN OF UNCLEAR CAUSE AT THIS TIME. WE WILL BEGIN TREATMENT FOR THE POSSIBILITY OF AN ULCER OR INFLAMMATION OF YOUR STOMACH LINING WE HAVE EXCLUDED OTHER SIGNIFICANT EMERGENCIES WITH TESTING IN THE EMERGENCY DEPARTMENT TODAY HISTORY OF PRESENTATION: ?CHEST AND ABDOMINAL PAIN EMERGENCY DEPARTMENT COURSE,TESTS, TREATMENTS: While in the ED today YOU HAD A CT SCAN INCLUDING ANGIOGRAPHY TO EVALUATE FOR YOUR AORTA OTHER SIGNIFICANT VESSELS AND YOUR CHEST AND ABDOMINAL ORGANS THERE WAS NO SIGNIFICANT ABNORMALITIES ON THIS YOUR PRIMARY DOCTOR CAN FOLLOW US SUBTLE ANEURYSM OF THE ASCENDING PART OF YOUR AORTA WHICH DOES NOT NEED ANY URGENT FOLLOW UP. DISCHARGE MEDICATIONS: ?[We have made no changes to your regular medication regimen] CONTINUE ALL YOUR MEDICATIONS INCLUDING PANTOPRAZOLE 40 MG DAILY WE HAVE ADDED CARAFATE TO YOUR MEDICATION LIST FOLLOW-UP: ?Call your primary or general physician soon as possible to discuss your symptoms, your ED visit and to discuss follow up plans CALL YOUR PRIMARY DOCTOR'S OFFICE INSTRUCTIONS ?& RETURN PRECAUTIONS: If any symptoms change first call your primary physician, if it is after-hours your primary doctors office should have a provider deputy felony clerk you can speak with. If the symptoms are severe or very concerning to you then call 911 or return to the ED. Eleuterio Jenkins MD Emergency Physician [facility] Prescriptions: New sucralfate [Carafate] 1 gram tablet 1 g PO BID 14 Days Qty: 28 0RF No Action albuterol sulfate [Ventolin HFA] 90 mcg/actuation HFA aerosol inhaler 2 puff PO Q6H PRN (Reason: shortness of breath or wheezing) Qty: 18 0RF tramadol 50 mg tablet 50 mg PO BEDTIME 7 Days Qty: 7 0RF fluticasone propion-salmeterol [Wixela Inhub] 250-50 mcg/dose blister with device 1 inh inhalation BID Qty: 180 1RF L.acidoph,saliva-B.bif-S.therm [Acidophilus Probiotic Blend] 175 mg capsule 1 cap PO DAILY Qty: 30 6RF epinephrine [EpiPen 2-Blaise] 0.3 mg/0.3 mL auto-injector 0.3 mg IM Q4H PRN (Reason: anaphylaxis) Qty: 2 0RF vitamin E (dl, acetate) 45 mg (100 unit) capsule 45 mg PO DAILY diclofenac sodium 1 % gel 2 g topical QID oxycodone 5 mg tablet 5 mg PO Q8H PRN (Reason: pain) Qty: 7 0RF Rx Instructions: Partial Fill upon patient request. prednisone 20 mg tablet 40 mg PO DAILY 5 Days Qty: 10 0RF zolpidem 10 mg tablet 10 mg PO BEDTIME PRN (Reason: Insomnia) hydroxyzine pamoate 25 mg capsule 25 mg PO BID PRN (Reason: Anxiety) cholecalciferol (vitamin D3) 50 mcg (2,000 unit) tablet 50 mcg PO DAILY apixaban 5 mg tablet 5 mg PO BID clonazepam 1 mg tablet 1 mg PO BID PRN (Reason: Anxiety) rosuvastatin 40 mg tablet 40 mg PO DAILY metoprolol succinate 200 mg tablet extended release 24 hr 200 mg PO DAILY levothyroxine 100 mcg tablet 100 mcg PO DAILY lisinopril 40 mg tablet 20 mg PO DAILY albuterol sulfate 2.5 mg /3 mL (0.083 %) solution for nebulization 3 mg inhalation QID PRN (Reason: Shortness Of Breath Or Wheezing) metformin 500 mg tablet 500 mg PO BID pantoprazole 40 mg tablet,delayed release (DR/EC) 40 mg PO DAILY Qty: 30 6RF Creon 36,000-114,000- 180,000 unit capsule,delayed release(DR/EC) 2 cap PO BID Qty: 360 1RF sennosides [Senna Laxative] 8.6 mg tablet 17.2 mg PO BEDTIME Qty: 60 6RF simethicone 180 mg capsule 180 mg PO QID 30 Days Qty: 120 6RF Rx Instructions: after meals hydrochlorothiazide 25 mg tablet 25 mg PO DAILY amlodipine 10 mg tablet 10 mg PO DAILY Interventions: ED Discharge Assessment Last Done: 03/03/25 06:43 Discharge Date/Time: 03/03/25 06:43 Print Language: Maltese
[2025-03-03 03:42] LABS: Alanine Aminotransferase 49 U/L (0-40); Albumin Level 3.8 g/dL (3.5-5.0); Alkaline Phosphatase 41 U/L (39-117); Anion Gap 14 (12-20); Aspartate Amino Transferase 23 U/L (5-37); Blood Urea Nitrogen 18 mg/dL (9-16); Calcium 9.0 mg/dL (8.4-10.2); Carbon Dioxide 26 mmol/L (22-29); Chloride 106 mmol/L (96-108); Creatinine Clr Calc Pharmacy 75.5; Estimated Glomerular Filt Rate > 60; Lipase 47 U/L (8-78); Potassium 3.7 mmol/L (3.3-5.1); Sodium 142 mmol/L (135-145); Total Protein 5.9 g/dL (6.5-8.0)
[2025-03-03 03:46] LABS: Troponin-I High Sensitivity 8.9 ng/L (<3.5-35.0)
[2025-03-03] MEDS: Magnesium Hydrox/Alum Hydrox 30 ML ORAL.SUSP PO (03:50)
--- NOTE | 2025-03-03 03:56 | PC.NURSE ---
pt change into hospital attire, ekg, labs collected and sent, provider ultrasound at the bedside of the abd.
[2025-03-03 03:58] LABS: VBG HCO3 28 mmol/L (22-26); VBG O2 % Saturation 92.0 %
[2025-03-03 04:06] LABS: Resp Syncy Virus RNA Qual PCR NEGATIVE (Negative); SARS COV2 PCR INHOUSE NEGATIVE (Negative)
--- OUTSIDE RECORDS SUMMARY | 2025-03-03 04:07 | XMS_ITS | Encounter Summary ---
Author Organization [employer] Address [address] [facility] 7t [place] [address] Care Team Providers Care Investigator Name Role Phone Gemini Chavez MD Primary Care Provide r Reason for Visit * Reason Onset Date Comments Pre-op appt 02/28/2025 Encounter Details Date Type Department Care Team ([facility] st Contact Info) Description 02/28/2025 Telephone [facility] [address] [place] [address] Gemini Chavez MD [address] [place] [address] Pre-op appt Social History Tobacco Use Types [...] Surgeon's name: Romero Ahumada MD Facility name: [facility] Surgeon's office number: [phone] Surgeon's office fax number: [phone] Contact name: Grisel Last office note from surgeon requested: Yes documented in this encounter Plan of Treatment Upcoming Encounters Date Type Department Care Team ([facility] st Contact Info) Description 03/11/2025 10:30 AM EDT Office Visit [facility] [address] [place] [address] Abhishek Gregory FNP [address] [place] [address] 03/23/2025 11:15 AM EST Office Visit [facility] [address] [place] [address] Gemini Chavez MD [address] [place] [address] documented as of this encounter Visit Diagnoses Not on filedocumented in this encounter Additional Health Concerns Assessment Noted Time PHQ-9 Depression Total Score: 0 11/30/19 25 10:53 AM EDT documented as of this encounter Care Teams Investigator Relationship Specialty Start Date End Date Gemini Chavez MD [address] [place] [address] PCP - General Family Medicine 01/21/18 [employer] 03/28/24 documented as of this encounter
--- OUTSIDE RECORDS SUMMARY | 2025-03-03 04:07 | XMS_ITS | Clinical Summary ---
Author Organization [facility] Address [address] [facility] [address] [place] [address] Phone Care Team Providers Care Pipeline Inspector Name Role Phone Curt Richey MD Primary [...] Medical Devices Not on file Insurance [address] [place] [id number] [facility] ONE CARE MEDICARE REPLACEMENT CLIFF DONAHUE [facility] MEDICARE REPLACEMENT MEDICARE REPLACEMENT CARE MEDICARE [place] [address] [place] [address] ONE CARE MEDICARE REPLACEMENT Care Teams Pipeline Inspector Relationship Specialty Start Date End Date Curt Richey MD PCP - General Cardiology 12/21/19 Additional Source Comments The information contained in this document represents components of the legal health record. It is not the complete legal health record.[facility]
--- OUTSIDE RECORDS SUMMARY | 2025-03-03 04:07 | XMS_ITS | Encounter Summary ---
Author Organization [employer] Address [address] [facility] 7t [place] [address] Care Team Providers Care 7Th Grade Social Studies Teacher Name Role Phone Gemini Chavez MD Primary Care Provide r Reason for Visit * Reason Comments Med Refill Encounter Details Date Type Department Care Team ([facility] st Contact Info) Description 02/12/2024 Refill [facility] [address] [place], [place] [phone] Gemini Chavez MD [address] [place] [address] Prediabetes Social History Tobacco Use Types Packs/Day [...] Description 03/11/2025 10:30 AM EDT Office Visit [facility] [address] [place] [address] Abhishek Gregory FNP [address] [place] [phone] 03/23/2025 11:15 AM EST Office Visit [address] [address] Gemini Chavez MD [address] [place] [address] documented as of this encounter Visit Diagnoses Diagnosis Prediabetes Other abnormal glucose documented in this encounter Additional Health Concerns Assessment Noted Time PHQ-9 Depression Total Score: 0 09/03/19 9:55 AM EDT documented as of this encounter Care Teams 7Th Grade Social Studies Teacher Relationship Specialty Start Date End Date Gemini Chavez MD [address] [place] [address] PCP - General Family Medicine 01/21/18 [employer] 03/28/24 documented as of this encounter
--- OUTSIDE RECORDS SUMMARY | 2025-03-03 04:07 | XMS_ITS | Patient Health Record ---
Author Organization [facility] Address [address] [place] [address] Care Team Providers Care Duplicator Punch Operator Name Role Phone Gemini Fisher M.D. Primary Care Provider Larry Angeles Jr Unavailable Cipriano Murphy MD Unavailable Unavailable Allergies No Known Allergies Reason For Referral No Information Medications Medication SIG (Take, Route, Frequency, Duration) Notes Start Date End Date Status Creon [id number] UNIT TOME 2 C PSULAS POR V [...] Status W/U Status Risk Notes Problem Dysphagia (13374820) Dysphagia (R13.10) Active confirmed Problem Dysphagia (18441165) Dysphagia, unspecified type (R13.10) Active confirmed Problem Barium swallow abnormal (417968044) Abnormal barium swallow (R93.3) Active confirmed Problem Gastroesophageal reflux disease (862040521) Gastroesophageal reflux disease, unspecified whether esophagitis present (K21.9) Active confirmed Problem Presbyesophagus (135241051) Presbyesophagus (K22.89) Active confirmed Plan Of Treatment Future Test Test Name Order Date UPPER GI ENDOSCOPY 03/13/2023 Insurance Providers Payer Name Payer Address Payer Phone Subscriber Number Group Number Insured Name Patient Relationship to Insured Coverage Start Date Coverage End Date [facility] [address] Attn Claims CLIFF Perez [id number] KOBE DAILY Self - patient is the insured Medical (General) History Medical History History ICD Code CE/COPD hypertension Fatty liver pulmonary nodule Elevated BMI Atrial fibrillation Hypothyroidism Gastroesophageal reflux disease/dysphagi a Surgical History Surgery Date(Month/Year) Cataract surgery Umbilical hernia repair Tonsillectomy
--- OUTSIDE RECORDS SUMMARY | 2025-03-03 04:07 | XMS_ITS | Encounter Summary ---
Author Organization [employer] Address [address] [facility] 7t [place] [address] Care Team Providers Care Hog Counter Name Role Phone Gemini Chavez MD Primary Care Provide r Reason for Visit * Reason Onset Date Comments Prior Authorization 06/10/2024 Encounter Details Date Type Department Care Team ([facility] st Contact Info) Description 06/10/2024 Telephone [facility] [address] [place], [place] [phone] Gemini Chavez MD [address] [place] [address] Prior Authorization Social History Tobacco Use Types [...] is required on PA. Contact pt at [phone] (burmese) * Telephone Encounter - Rohit Cruz - 06/10/2024 9:00 AM EST Tc from pt requesting a PA for Tirzepatide-Weight Management (Zepbound) 2.5 MG/0.5ML solution auto-injector because pt stated that he received a letter stating that PA got denied. Contact pt: [phone] (Martiniquais) documented in this encounter Plan of Treatment Upcoming Encounters Date Type Department Care Team (Late st Contact Info) Description 03/11/2025 10:30 AM EDT Office Visit [facility] [address] [place] [phone] Abhishek Gregory FNP [address] [place] [address] 03/23/2025 11:15 AM EST Office Visit [facility] [address] [place] [address] [place] [address] Gemini Chavez MD [address] [place] [address] documented as of this encounter Visit Diagnoses Not on filedocumented in this encounter Additional Health Concerns Assessment Noted Time PHQ-9 Depression Total Score: 0 09/03/19 24 9:55 AM EDT documented as of this encounter Care Teams Hog Counter Relationship Specialty Start Date End Date Gemini Chavez MD [address] [place] [address] PCP - General Family Medicine 01/21/18 [employer] 03/28/24 documented as of this encounter
--- OUTSIDE RECORDS SUMMARY | 2025-03-03 04:07 | XMS_ITS | Clinical Summary ---
Author Organization [facility] Address [address] [place] [address] Phone Care Team Providers Care Home Economics Teacher Name Role Phone Gemini Chavez MD [...] BLOOD SUGAR ONCE DAILY 5 Active [employer] [place] Lite monitoring kit USE TO TEST BLOOD [...] PM EDT Office Visit Orthopedic Surgery - [address] [address] Gallito Hancock, DPM Dermatophytosis of [...] PM EST Office Visit Orthopedic Surgery - [place] [address] [address] Gallito Hancock, DPHollis [address] [address] Health Maintenance Due Date Last [...] complete this topic Insurance [place]ICA[place] - [place] [facility] Member Subscriber Plan / Payer (Ef fective 2022-Present) Name:Min Daily Relation to Subscriber:Self Name:Min Daily Payer ID:[id number] Group ID:[id number] Type:Not on file Address: [address] [place] [id number] Care Teams Home Economics Teacher Relationship Specialty Start Date End Date Gemini Chavez MD [address] [place] [phone] [facility] - General 04/24/23
--- OUTSIDE RECORDS SUMMARY | 2025-03-03 04:07 | XMS_ITS | Encounter Summary ---
Author Organization [employer] Address [address] [facility] 7t [place] [address] Care Team Providers Care Learning And Development Manager Name Role Phone Gemini Chavez MD Primary Care Provide r Reason for Visit * Reason Comments Med Refill Encounter Details Date Type Department Care Team (Late st Contact Info) Description 09/08/2022 Refill [facility] [address] [place], [place] [phone] Umer Sears MD [address], [place] [phone] Seasonal allergies Social History Tobacco Use Types [...] 10:30 AM EDT Office Visit [facility] [address] [place], [place] [phone] Abhishek Gregory FNP 230 [place] [address] 03/23/2025 11:15 AM EST Office Visit [facility] [address] [place] [address] Gemini Chavez MD [address] [place] [address] documented as of this encounter Visit Diagnoses Diagnosis Seasonal allergies Allergic rhinitis, cause unspecified documented in this encounter Additional Health Concerns Assessment Noted Time PHQ-9 Depression Total Score: 6 05/16/19 23 1:42 PM EST documented as of this encounter Care Teams Learning And Development Manager Relationship Specialty Start Date End Date Gemini Chavez MD [address] [place] [address] PCP - General Family Medicine 01/21/18 [employer] 03/28/24 documented as of this encounter
--- OUTSIDE RECORDS SUMMARY | 2025-03-03 04:07 | XMS_ITS | Encounter Summary ---
Author Organization [employer] Address 75 [facility] 7t [place] [address] Care Team Providers Care Project Eng Name Role Phone Gemini Chavez MD Primary Care Provide r Reason for Visit * Reason Onset Date Comments Nurse Triage 03/26/2023 Encounter Details Date Type Department Care Team ([facility] st Contact Info) Description 03/26/2023 Telephone [facility] [address] [place], [place] [phone] Gemini Chavez MD 230 [place] [address] Nurse Triage Social History Tobacco Use Types [...] 03/26/2023 11:47 AM EST Triage call [place] [id number] Pt reports ingrown toenail great toe on left foot for 3 days now. Pt reports it is painful and causes some limping when ambulating. Pt denies redness, drainage. Pt requests a referral to physical therapy attendant which was very helpful last time this happened. Pt is advised will send this request to PCP and nursing team for follow up and Pt agreed. Pt declined to come to [facility] only wants physical therapy attendant to cut this toenail. Protocol Used: Information [...] accepted this outcome Please contact pt at [phone] (it instructor needed) documented in this encounter Plan of Treatment Upcoming Encounters Date Type Department Care Team ([facility] Contact Info) Description 03/11/2025 10:30 AM EDT Office Visit [facility] MED[facility]INE [address] [place] [address] [phone] Abhishek Gregory, LEV [address] [place] [address] 03/23/2025 11:15 AM EST Office Visit [facility] [address] [place] [address] [phone] Gemini Chavez MD [address] [place] [address] [phone] documented as of this encounter Visit Diagnoses Not on filedocumented in this encounter Additional Health Concerns Assessment Noted Time PHQ-9 Depression Total Score: 6 05/16/19 23 1:42 PM EST documented as of this encounter Care Teams Project Eng Relationship Specialty Start Date End Date Gemini Chavez MD [address] [place] [address] [phone] PCP - General Family Medicine 01/21/18 [email or web address] 03/28/24 documented as of this encounter
--- OUTSIDE RECORDS SUMMARY | 2025-03-03 04:07 | XMS_ITS | Clinical Summary ---
Author Organization [employer] Address [address] [place] [address] 7t [place] [address] Care Team Providers Care Access Registrar Name Role Phone Gemini Chavez MD Primary [...] ANAPHYLAXIS AND CALL 911 2022 Active Creon 10418-705627 units capsule delayed-release particles capsule Take 2 capsules by mouth 4 times daily. ADMINISTER WITH MEALS AND/OR SNACKS 2022 Active Fluticasone-Salmetero l 250-50 MCG/ACT aerosol powder Inhale 1 puff 2 times daily. 2023 Active Umeclidinium [place] (Incruse Ellipta) 62.5 MCG/ACT aerosol powderIndications:Chr onic [...] 09/03 Active Blood Glucose Monitoring Suppl (FreeStyle [place] Lite) w/Device kitIndications:Predia betes Use to test [...] 4 2024 Active lidocaine (Lidoderm) 5 % patchIndications:Pearl Digger haylee left shoulder pain Apply 1 patch [...] tabletIndications:Acu te exacerbation of COPD with asthma (CMS/[facility]) ([facility]) Take 2 tablets (40 mg) by mouth Once per day for 10 days. 20 tablet 03/04 Active guaiFENesin 200 MG tabletIndications:Acu te exacerbation of COPD with asthma ([facility]) ([facility]) Take 2 tablets (400 mg) by mouth [...] being schedule yet Atrial fibrillation with RVR ([facility]) Assessment & Plan (11/29/2024 3:15 PM EDT): [...] TSH and contact him back Patient declines hyperbaric tech appointment Prediabetes 05/19/2023 Assessment & Plan (11/29/2024 [...] will like to be re-evalauted for more [employer] hours Preop examination 02/13/2023 Assessment & Plan [...] ideally next day of procedure--I called his pattern repair person-Dr Ely's # [phone] office and spoke w CLIFF rodriguez with plan to hold AC as rec above with no need for bridging. -on day of surgery can take BB and levothyroxine with a sip of water and to hold rest of meds -nurse staff to fax this note to surgeon COPD with asthma ([facility]) 01/22/2023 Assessment & Plan (11/29/2024 3:17 PM [...] Type Department Care Team Description 02/28/2025 Telephone [facility] MED[facility]INE [address] [place] [phone] Gemini Chavez MD Pre-op appt 02/22/2025 8:40 AM EDT Office Visit [facility] [address] [place] [phone] Christal Edmonds MD Acute exacerbation of COPD with asthma (CMS/HCC) (HCC) (Primary Dx); Cough in adult 02/22/2025 Travel 02/21/2025 Telephone [facility] MEDICINE [address] [place] [phone] Gemini Chavez MD Nurse Triage; ER Follow-up 02/21/2025 Orders Only GENERIC EXTERNAL DATA DEPARTMENT Provider, Generic External Data 02/18/2025 Orders Only [facility] External Provider, [facility] 02/16/2025 Telephone [facility] MEDICINE [address] [place] [phone] Gemini Chavez MD Nurse Triage 02/15/2025 Orders Only [facility] External Provider, [facility] 02/11/2025 Refill [facility] [address] [place] [phone] Gemini Chavez MD Hypertension, unspecified type 02/04/2025 Refill [facility] MED[facility]INE [address] [place] [phone] Gemini Chavez MD Acquired hypothyroidism 02/03/2025 Telephone [facility] MEDICINE [address] [place] [phone] Gemini Chavez MD Fyi 02/02/2025 Orders Only GENERIC EXTERNAL DATA DEPARTMENT Provider, Generic External Data 01/31/2025 Patient Outreach [facility]INE [address] [place] [address] Gemini Chavez MD Care Coordination ([facility] Agency) 01/28/2025 Refill [facility] [address] [place] [address] Gemini Chavez MD 01/27/2025 Refill [facility] [address] [place] [address] Gemini Chavez MD Acquired hypothyroidism 01/20/2025 Orders Only GENERIC EXTERNAL DATA DEPARTMENT Provider, Generic External Data 01/18/2025 Telephone [facility] [address] [place] [address] Gemini Chavez MD NOV RECALL 12/22/2024 Telephone [facility] [address] [place] [address] Gemini Chavez MD Hypotension 12/16/2024 Refill [facility] [address] [place] [address] Gemini Chavez MD Pure hypercholesterolemia 12/15/2024 10:30 AM EDT Office Visit [facility] MEDICINE [address] [place] [phone] Jessica Ho, CEDRIC Chronic left shoulder pain (Primary Dx); Acute reactive otitis externa of both ears 12/15/2024 Telephone [facility] MEDICINE [address] [place] [phone] Gemini Chavez MD telephone call 12/15/2024 Travel 12/14/2024 Telephone [facility] MEDICINE [address] [place] [address] Gemini Chavez MD Nurse Triage 12/11/2024 Orders Only [facility] External Provider, [facility] 12/01/2024 Refill [facility]INE [address] [place] [address] Gemini Chavez MD Prediabetes 12/01/2024 Refill [facility] [address] [place], [place] [phone] Gemini Chavez MD Primary hypertension from Last 3 Months Immunizations Immunization Administration [...] [facility] [address] [place] [address] Abhishek Gregory FNP 230 [place], [place] [phone] 03/23/2025 11:15 AM EST Office Visit [facility] MED[facility]INE [address] [place] [address] Gemini Chavez MD 230 [place] [address] Health Maintenance Due Date Last Done Comments [...] Screening 02/22/2026 02/22/2025 Lipid Panel 05/03/2029 05/03/2024, 01/2024, 12/13/2022, Additional [...] TOTAL Routine 11/29/2024 11:22 AM EDT Prediabetes LIPID [...] AM EDT) Influenza B Negative Negative, Indeterminate [facility] Swab 02/22/2025 9:09 AM EDT Christal Edmonds MD POINT OF CARE TEST ENTER/EDIT ORDERABLES Final Result Performing Organization Address City/[facility]/ZIP Co de Phone Number [facility] [address] [place] [phone] * Influenza A (ID NOW Rapid Molecular) (02/22/2025 9:09 AM EDT) Influenza A Negative Negative, Indeterminate [facility] Swab 02/22/2025 9:09 AM EDT Christal Edmonds MD POINT OF CARE TEST ENTER/EDIT ORDERABLES Final Result Performing Organization Address [facility]/ZIP Co de Phone Number [facility] [address] [place] [phone] * POCT rapid strep A manually resulted (02/22/2025 9:09 AM EDT) Rapid Strep A Screen Negative Negative, None Detected Swab 02/22/2025 9:09 AM EDT Christal Edmonds MD POINT OF CARE TEST ENTER/EDIT ORDERABLES Final Result * POCT Rapid COVID Ag (02/22/2025 8:55 AM EDT) Rapid COVID Ag Negative Swab 02/22/2025 8:55 AM EDT Christal Edmonds MD POINT OF CARE TEST ENTER/EDIT ORDERABLES Final Result * (ABNORMAL) Basic Metabolic Panel (02/21/2025 6:37 AM EDT) Only the most recent of2 resultswithin the time period is included. Pathologist [facility] Sodium 144 135 - 145 mmol/L [facility] Potassium 3.4 3.3 - 5.1 mmol/L [facility] Chloride 105 96 - 108 mmol/L [facility] Carbon Dioxide 30(H) 22 - 29 mmol/L [facility] Anion Gap 12 12 - 20 [facility] Urea Nitrogen (BUN) 26(H) 9 - 16 mg/dL [facility] Creatinine, Serum 1.17 0.5 - 1.4 mg/dL [facility] Estimated Glomerular Filt Rate >60 [facility] Comment:Chronic Kidney Disea se: Estimated GFR < 60 mL/min/1.08l5Mwjayu Kidney Disease: Estimated GFR < 15 mL/min/1.73m2 Glucose 83 60 - 115 mg/dL [facility] Calcium 9.0 8.4 - 10.2 mg/dL [facility] 02/21/2025 6:37 AM EDT 02/21/2025 6:37 AM EDT Generic External Data Provider LAB BLOOD ORDERAB LES Final Result [facility] [address] [place] [phone] * MR Shoulder w/o Contrast Left (02/18/2025 10:00 AM EDT) Anatomical Region Laterality Modality Upper Extremities, Shoulder Left Magn etic Resonance 02/18/2025 10:0 0 AM EDT Narrative 02/18/2025 12:15 PM EDT [place] [address] Magnetic Resonance Report Signed Patient: Min Rees MR#: [id number] : 1955 Acct:[id number] Age/Sex: 69 / M ADM Date: 02/18/25 Loc: HO.MRI Attending Dr: Mario Wild PA-C Ordering Physician: Mario Wild PA-C Date of Service: 02/18/25 Procedure(s): MR shoulder LT wo con Accession Number(s): [id number] cc: Gemini Chavez MD; Mario Wild PA-C [...] 02/18/25 1213 DD/ 1000 TD/TT: 02/18/25 1019 Bias Machine Operator: Procedure Note Donotuseinterpreter, Image - 02/18/[address] [address] Magnetic Resonance Report Signed Patient: Min ReesMR#: [id number] : 6Acct:[id number] Age/Sex: 69 / MADM Date: 02/18/25 Loc: HO.MRI Attending Dr: Mario Wild PA-C Ordering Physician: Mario Wild PA-C Date of Service: 02/18/25 Procedure(s): MR shoulder LT wo con Accession Number(s): [id number] cc: Gemini Chavez MD; Mario Wild PA-C [...] 02/18/25 1213 DD/ 1000 TD/TT: 02/18/25 1019 Bias Machine Operator: RHODA [facility] External Provider IMG MRI PROCEDURES Final Result * High Sensitivity Troponin I (02/15/2025 11:52 AM EDT) TROPONIN I HIGH SENSITIVITY 4.1 <3.5 - 35.0 ng/L [facility] Comment:The [place] high sens itivity Troponin-I results should beused in conjunction with other diagnostic information suchas ECG, clinical observations and information, and patientsymptoms to aid in the diagnosis of [place]. 02/15/2025 11:5 2 AM EDT 02/15/2025 11:56 AM EDT Generic External Data Provider LAB BLOOD ORDERAB LES Final Result [facility] [address] [place] [phone] * XR Chest 2 Views (02/15/2025 9:30 AM EDT) Anatomical Region Laterality Modality Chest Radiographic Claire ging 02/15/2025 9:30 AM EDT Narrative 02/15/2025 9:44 AM EDT [address] [address] XRay Report Signed Patient: Min Rees MR#: [id number] : 1955 Acct:[id number] Age/Sex: 69 / M ADM Date: 02/15/25 Loc: HO.ED Attending Dr: Ordering Physician: Tavia Garcia Date of Service: 02/15/25 Procedure(s): XR chest 2V Accession Number(s): [id number] cc: Gemini Chavez MD; Tavia Garcia Reason [...] in OV> 02/15/25940 DD/ 9 TD/TT: 02/15/25934 Bias Machine Operator: Procedure Note Donotuseinterpreter, Image - 02/15/2025 [place] [address] XRay Report Signed Patient: Min Rees#: [id number] : 1955cct:[id number] Age/Sex: 69 / MADM Date: 02/15/25 Loc: HO.ED Attending Dr: Ordering Physician: Tavia Garcia Date of Service: 02/15/25 Procedure(s): XR chest 2V Accession Number(s): [id number] cc: Gemini Chavez MD; Tavia Garcia Reason [...] in OV> 02/15/25940 DD/ 9 TD/TT: 02/15/25934 Bias Machine Operator: [facility] External Provider IMG XR PROCEDURES Final Result * (ABNORMAL) Glucose, Whole Blood (02/02/2025 9:24 AM EDT) Glucose, Whole Blood 125(H) 60 - 115 mg/dL [facility] Comment:METER #: [id number] 02/02/2025 9:24 AM EDT 02/02/2025 9:28 AM EDT Generic External Data Provider LAB BLOOD ORDERAB LES Final Result [facility] [address] [place] [phone] * XR Shoulder 2+ Views Left (12/11/2024 9:05 AM EDT) Anatomical Region Laterality Modality Upper Extremities, Shoulder Left Radi ographic Imaging 12/11/2024 9:05 AM EDT Narrative 12/11/2024 9:06 AM EDT [address] [address] XRay Report Signed Patient: Min Rees MR#: [id number] : 1955 Acct:[id number] Age/Sex: 69 / M ADM Date: 12/11/24 Loc: HO.ED Attending Dr: Ordering Physician: Zenaida Zaragoza MD Date of Service: 12/11/24 Procedure(s): XR shoulder LT min 2V Accession Number(s): [id number] cc: Gemini Chavez MD; Zenaida Zaragoza MD [...] in OV> 12/11/24905 DD/ 4 TD/TT: 12/11/24904 Bias Machine Operator: Procedure Note Donotuseinterpreter, Image - 12/11/[address] [address] XRay Report Signed Patient: Min Rees#: [id number] : 1955cct:[id number] Age/Sex: 69 / MADM Date: 12/11/24 Loc: HO.ED Attending Dr: Ordering Physician: Zenaida Zaragoza MD Date of Service: 12/11/24 Procedure(s): XR shoulder LT min 2V Accession Number(s): [id number] cc: Gemini Chavez MD; Zenaida Zaragoza MD [...] in OV> 12/11/24905 DD/ 4 TD/TT: 12/11/24904 Bias Machine Operator: [facility] External Provider IMG XR PROCEDURES Edited Result - Final * (ABNORMAL) POCT HGB A1C (11/29/2024 11:22 AM EDT) Hemoglobin A1C 5.7 4.0 - 5.7 % QC Media Lot # [id number] Lot# Expiration Date ,[id number] Blood 11/29/2024 11:2 2 AM EDT Gemini Chung MD POINT OF CARE TEST ENTER/EDIT ORDERABLES Edited Result - Final * (ABNORMAL) Lipid Panel, Standard (05/03/2024 8:15 AM EST) Triglycerides 230(H) <150 mg/dL [facility] Comment:Desirable Triglyceri de: less than [...] 190 mg/dL HDL Cholesterol 31(L) >40 mg/dL [facility] Comment:Desirable HDL: great er than 40 mg/dL Note: This HDL assay may give artificially low results in patients with liver disease. Blood Venous blood specimen / Unknown 05/03/2024 8:15 AM EST 05/03/2024 11:40 AM EST us Gemini Chung MD LAB BLOOD ORDERABLES Final Result Performing Organization Address [facility] Co de Phone Number [facility] [address] [place] [address] [phone] * Hm Colonoscopy (01/21/2024 10:19 AM [...] BLOOD ORDERABLES Final Result Performing Organization Address [facility] Co de Phone Number [facility] [address] [place] [address] [phone] from Last 3 Months or Most Recently Relevant to Health Maintenance Insurance [address] [place] [id number] [facility] OPTIONS (HMO D-SNP) [facility] STANDARD Care Teams Access Registrar Relationship Specialty Start Date End Date Gemini Chavez MD [address] [place] [phone] PCP - General Family Medicine 01/21/18 [employer] 03/28/24
--- OUTSIDE RECORDS SUMMARY | 2025-03-03 04:07 | XMS_ITS | Encounter Summary ---
Author Organization [employer] Address 75 [facility] 7t [place] [address] Care Team Providers Care Chute Feeder Name Role Phone Gemini Chavez MD Primary Care Provide r Reason for Visit * Reason Comments Med Refill Encounter Details Date Type Department Care Team ([facility] st Contact Info) Description 05/14/2024 Refill [facility] MEDICINE [address] [place], [place] [phone] Gemini Chavez MD [address] [place], [place] [phone] Class 1 obesity due to excess calories [...] Description 03/11/2025 10:30 AM EDT Office Visit [address] [address] Abhishek Gregory FNP [address] [place] [phone] 03/23/2025 11:15 AM EST Office Visit [address] [address] Gemini Chavez MD [address] [place] [phone] documented as of this encounter Visit Diagnoses Diagnosis Class 1 obesity due to excess calories with serious comorbidity and body mass index (BMI) of 33.0 to 33.9 in adult documented in this encounter Additional Health Concerns Assessment Noted Time PHQ-9 Depression Total Score: 0 09/03/19 24 9:55 AM EDT documented as of this encounter Care Teams Chute Feeder Relationship Specialty Start Date End Date Gemini Chavez MD [address] [place] [phone] PCP - General Family Medicine 01/21/18 [employer] 03/28/24 documented as of this encounter
--- OUTSIDE RECORDS SUMMARY | 2025-03-03 04:07 | XMS_ITS | Encounter Summary ---
Author Organization [facility] Address [address] [place] [address] Phone Care Team Providers Care Building Maintenance Supervisor Name Role Phone Curt Richey MD Primary Care Provider + Encounter Details Date Type Department Care Team (Late st Contact Info) Description 12/24/2019 Ancillary Orders [facility] [address] [facility] 3rd Floor, [address] [place] [address] Curt Richey MD [address] [place] [address] Social History Tobacco Use Types Packs/Day Years [...] on filedocumented in this encounter Care Teams Building Maintenance Supervisor Relationship Specialty Start Date End Date Curt Richey MD PCP - General Cardiology 12/21/19 documented as of this encounter Additional Source Comments The information contained in this document represents components of the legal health record. It is not the complete legal health record.[facility]
--- OUTSIDE RECORDS SUMMARY | 2025-03-03 04:07 | XMS_ITS | Encounter Summary ---
Author Organization [facility] Address 75 [facility] 7t [place] [address] Care Team Providers Care Strand Galvanizer Name Role Phone Gemini Chavez MD Primary Care Provide r Reason for Visit * Reason Comments Med Refill Encounter Details Date Type Department Care Team (Late st Contact Info) Description 10/07/2022 Refill [facility] MEDICINE [address] [place] [address] [phone] Gemini Chavez MD [address] [place], [place] [phone] Chronic systolic heart failure (CMS/HCC) Social History [...] Description 03/11/2025 10:30 AM EDT Office Visit [facility] MED[facility]INE [address] [place] [phone] Abhishek Gregory FNP [address] [place] [address] 03/23/2025 11:15 AM EST Office Visit [facility] MED[facility]INE [address] [place] [address] Gemini Chavez MD [address] [place] [address] documented as of this encounter Visit Diagnoses Diagnosis Chronic systolic heart failure (HCC) Chronic systolic heart failure documented in this encounter Additional Health Concerns Assessment Noted Time PHQ-9 Depression Total Score: 6 05/16/19 23 1:42 PM EST documented as of this encounter Care Teams Strand Galvanizer Relationship Specialty Start Date End Date Gemini Chavez MD [address] [place] [address] PCP - General Family Medicine 01/21/18 [employer] 03/28/24 documented as of this encounter
--- OUTSIDE RECORDS SUMMARY | 2025-03-03 04:07 | XMS_ITS | Encounter Summary ---
Author Organization [employer] Address 75 [facility] 7t [place] [address] Care Team Providers Care Stator Connector Name Role Phone Gemini Chavez MD Primary Care Provide r Reason for Visit * Reason Comments Med Change Request Encounter Details Date Type Department Care Team (Late Contact Info) Description 01/08/2023 Refill [facility] [address] [place], [place] [phone] Marsha Menjivar MD [address] [place] [address] Chronic obstructive pulmonary disease, unspecified COPD type (CMS/[facility]) Social History Tobacco Use Types Packs/Day Years [...] Nebulizer signed and faxed to [facility]. documented in this encounter Plan of Treatment Upcoming Encounters Date Type Department Care Team (Late st Contact Info) Description 03/11/2025 10:30 AM EDT Office Visit [facility] MEDICINE [address] [place] [phone] Abhishek Gregory FNP [address] [place] [address] 03/23/2025 11:15 AM EST Office Visit [facility] MED[facility] [address] [place] [address] [phone] Gemini Chavez MD [address] [place] [address] [phone] documented as of this encounter Visit Diagnoses Diagnosis Chronic obstructive pulmonary disease, unspecified COPD type (CMS/HCC) (HCC) documented in this encounter Additional Health Concerns Assessment Noted Time PHQ-9 Depression Total Score: 6 05/16/19 23 1:42 PM EST documented as of this encounter Care Teams Stator Connector Relationship Specialty Start Date End Date Gemini Chavez MD [address] [place] [address] [phone] PCP - General Family Medicine 01/21/18 [employer] 03/28/24 documented as of this encounter
--- OUTSIDE RECORDS SUMMARY | 2025-03-03 04:07 | XMS_ITS | Encounter Summary ---
Author Organization [employer] Address [address] [facility] 7t [place] [address] Care Team Providers Care Director Pediatric Name Role Phone Gemini Chavez MD Primary Care Provide r Reason for Visit * Reason Onset Date Comments Appointment Request 08/21/2022 Encounter Details Date Type Department Care Team ([facility] st Contact Info) Description 08/21/2022 Telephone [facility] 230 [place], [place] [phone] Gemini Chavez MD 230 [place] [address] Appointment Request Social History Tobacco Use Types [...] an family emergency. Please contact pt at [phone] documented in this encounter Plan of Treatment Upcoming Encounters Date Type Department Care Team (Late st Contact Info) Description 03/11/2025 10:30 AM EDT Office Visit [facility] [address] [place] [address] Abhishek Gregory FNP 230 [place] [address] 03/23/2025 11:15 AM EST Office Visit [address] [phone] Gemini Chavez MD [address] [place] [address] [phone] documented as of this encounter Visit Diagnoses Not on filedocumented in this encounter Additional Health Concerns Assessment Noted Time PHQ-9 Depression Total Score: 6 05/16/19 23 1:42 PM EST documented as of this encounter Care Teams Director Pediatric Relationship Specialty Start Date End Date Gemini Chavez MD [address] [place] [address] [phone] PCP - General Family Medicine 01/21/18 [email or web address] 03/28/24 documented as of this encounter
--- OUTSIDE RECORDS SUMMARY | 2025-03-03 04:07 | XMS_ITS | Encounter Summary ---
Author Organization [facility] Address [address] [facility] [address] [place] [address] Phone Care Team Providers Care Obstetrician Name Role Phone Curt Richey MD Primary Care Provider + Encounter Details Date Type Department Care Team (Latest Contact Info) Description 12/24/2019 Ancillary [facility] [address] [place] [address] [place] [address] Curt Richey MD [address] [place] [address] [email or web address] Atrial fibrillation, unspecified type Social History Tobacco [...] type documented in this encounter Care Teams Obstetrician Relationship Specialty Start Date End Date Curt Richey MD [email or web address] PCP - General Cardiology 12/21/19 documented as of this encounter Additional Source Comments The information contained in this document represents components of the legal health record. It is not the complete legal health record.[facility]
--- OUTSIDE RECORDS SUMMARY | 2025-03-03 04:07 | XMS_ITS | Encounter Summary ---
Author Organization [employer] [facility] Address [address] [facility] 7t [place] [address] Care Team Providers Care Rotary Drum Tanner Name Role Phone Gemini Chavez MD Primary Care Provide r Encounter Details Date Type Department Care Team (Late st Contact Info) Description 01/22/2023 Orders Only [facility] [address] [place] [address] [phone] Gemini Chavez MD 230 [place], [place] [phone] COPD with asthma ([facility]) Social History Tobacco Use Types [...] Description 03/11/2025 10:30 AM EDT Office Visit [facility] [address] [place] [phone] Abhishek Gregory FNP 230 [place] [address] 03/23/2025 11:15 AM EST Office Visit [facility] 230 [place] [address] Gemini Chavez MD 230 [place] [address] documented as of this encounter Visit Diagnoses Diagnosis COPD with asthma (CMS/HCC) (HCC) documented in this encounter Additional Health Concerns Assessment Noted Time PHQ-9 Depression Total Score: 6 05/16/19 23 1:42 PM EST documented as of this encounter Care Teams Rotary Drum Tanner Relationship Specialty Start Date End Date Gemini Chavez MD 230 [place] [address] PCP - General Family Medicine 01/21/18 [employer] 03/28/24 documented as of this encounter
--- OUTSIDE RECORDS SUMMARY | 2025-03-03 04:07 | XMS_ITS | Encounter Summary ---
Author Organization [employer] Address [address] [facility] 7t [place] [address] Care Team Providers Care Flight Radio Officer Name Role Phone Gemini Chavez MD Primary Care Provide r Reason for Visit * Reason Comments Med Refill Encounter Details Date Type Department Care Team ([facility] st Contact Info) Description 03/03/2024 Refill [facility] 230 [place], [place] [phone] Gemini Chavez MD 230 [place], [place] [phone] Social History Tobacco Use Types Packs/Day Years [...] 10:30 AM EDT Office Visit [facility] [address] [place] [address] Abhishek Gregory FNP [address] [place] [address] 03/23/2025 11:15 AM EST Office Visit [address] [address] Gemini Chavez MD [address] [place] [address] documented as of this encounter Visit Diagnoses Not on filedocumented in this encounter Additional Health Concerns Assessment Noted Time PHQ-9 Depression Total Score: 0 09/03/19 9:55 AM EDT documented as of this encounter Care Teams Flight Radio Officer Relationship Specialty Start Date End Date Gemini Chavez MD [address] [place] [phone] PCP - General Family Medicine 01/21/18 [employer] 03/28/24 documented as of this encounter
--- OUTSIDE RECORDS SUMMARY | 2025-03-03 04:07 | XMS_ITS | Encounter Summary ---
Author Organization [employer] Address [address] [facility] 7t [place] [address] Care Team Providers Care Research Pharmacist Name Role Phone Gemini Chavez MD Primary Care Provide r Reason for Visit * Reason Onset Date Comments Referral 03/14/2023 Encounter Details Date Type Department Care Team ([facility] st Contact Info) Description 03/14/2023 Telephone [facility] 230 [place], [place] [phone] Gemini Chavez MD 230 [place], [place] [phone] Referral Social History Tobacco Use Types Packs/Day [...] t he electric, gas, oil or water [email or web address] threatened to shut off services in your [...] Description 03/11/2025 10:30 AM EDT Office Visit [address] [address] Abhishek Gregory FNP [address] [place] [address] 03/23/2025 11:15 AM EST Office Visit [address] [address] Gemini Chavez MD [address] [place] [address] documented as of this encounter Visit Diagnoses Not on filedocumented in this encounter Additional Health Concerns Assessment Noted Time PHQ-9 Depression Total Score: 6 05/16/19 23 1:42 PM EST documented as of this encounter Care Teams Research Pharmacist Relationship Specialty Start Date End Date Gemini Chavez MD [address] [place] [phone] PCP - General Family Medicine 01/21/18 [employer] 03/28/24 documented as of this encounter
--- OUTSIDE RECORDS SUMMARY | 2025-03-03 04:07 | XMS_ITS | Encounter Summary ---
Author Organization [employer] Address [address] [facility] 7t [place] [address] Care Team Providers Care Metal Filer Name Role Phone Gemini Chavez MD Primary Care Provide r Reason for Visit * Reason Comments Med Refill Encounter Details Date Type Department Care Team ([facility] st Contact Info) Description 02/12/2024 Refill [facility] 230 [place], [place] [phone] Gemini Chavez MD 230 [place] [address] Prediabetes Social History Tobacco Use Types Packs/Day [...] Description 03/11/2025 10:30 AM EDT Office Visit [facility] [address] [place] [address] Abhishek Gregory FNP [address] [place] [address] 03/23/2025 11:15 AM EST Office Visit [address] [address] Gemini Chavez MD [address] [place] [address] documented as of this encounter Visit Diagnoses Diagnosis Prediabetes Other abnormal glucose documented in this encounter Additional Health Concerns Assessment Noted Time PHQ-9 Depression Total Score: 0 09/03/19 9:55 AM EDT documented as of this encounter Care Teams Metal Filer Relationship Specialty Start Date End Date Gemini Chavez MD [address] [place] [address] PCP - General Family Medicine 01/21/18 [employer] 03/28/24 documented as of this encounter
--- OUTSIDE RECORDS SUMMARY | 2025-03-03 04:07 | XMS_ITS | Encounter Summary ---
Author Organization [employer] [facility] Address [address] [facility] 7t [place] [address] Care Team Providers Care Woodwork Salvage Inspector Name Role Phone Gemini Chavez MD Primary Care Provide r Reason for Visit * Reason Comments Med Refill Encounter Details Date Type Department Care Team (Late st Contact Info) Description 06/21/2022 Refill [facility] 230 [place], [place] [phone] Marsha Menjivar MD 230 [place], [place] [phone] Chronic systolic heart failure (CMS/HCC) Social History [...] Description 03/11/2025 10:30 AM EDT Office Visit [facility] 230 [place], [place] [phone] Abhishek Gregory FNP 230 [place] [address] 03/23/2025 11:15 AM EST Office Visit [facility] [address] [place] [address] [phone] Gemini Chavez MD [address] [place] [address] [phone] documented as of this encounter Visit Diagnoses Diagnosis Chronic systolic heart failure (HCC) Chronic systolic heart failure documented in this encounter Additional Health Concerns Assessment Noted Time PHQ-9 Depression Total Score: 6 05/16/19 23 1:42 PM EST documented as of this encounter Care Teams Woodwork Salvage Inspector Relationship Specialty Start Date End Date Gemini Chavez MD [address] [place] [phone] PCP - General Family Medicine 01/21/18 [employer] 03/28/24 documented as of this encounter
--- OUTSIDE RECORDS SUMMARY | 2025-03-03 04:07 | XMS_ITS | Encounter Summary ---
Author Organization [employer] Address [address] [facility] 7t [place] [address] Care Team Providers Care Steamboat Captain Name Role Phone Gemini Chavez MD Primary Care Provide r Encounter Details Date Type Department Care Team (Late st Contact Info) Description 02/19/2023 Abstract [facility] 230 [place], [place] [phone] Gemini Chavez MD 230 [place], [place] [phone] Social History Tobacco Use Types Packs/Day Years [...] 10:30 AM EDT Office Visit [facility] [address] [place] [address] Abhishek Gregory FNP 230 [place], [place] [phone] 03/23/2025 11:15 AM EST Office Visit [address] [address] Gemini Chavez MD [address] [place] [address] documented as of this encounter Visit Diagnoses Not on filedocumented in this encounter Additional Health Concerns Assessment Noted Time PHQ-9 Depression Total Score: 6 05/16/19 23 1:42 PM EST documented as of this encounter Care Teams Steamboat Captain Relationship Specialty Start Date End Date Gemini Chavez MD [address] [place] [address] [phone] PCP - General Family Medicine 01/21/18 [employer] 03/28/24 documented as of this encounter
--- OUTSIDE RECORDS SUMMARY | 2025-03-03 04:07 | XMS_ITS | Encounter Summary ---
Author Organization [employer] Address [address] [facility] 7t [place] [address] Care Team Providers Care Forest Pathology Professor Name Role Phone Gemini Chavez MD Primary Care Provide r Encounter Details Date Type Department Care Team (Late st Contact Info) Description 07/10/2023 Orders Only [facility] 230 [place], [place] [phone] Gemini Chavez MD 230 [place], [place] [phone] Mixed stress and urge urinary incontinence (Primary [...] t he electric, gas, oil or water [employer] threatened to shut off services in your [...] Description 03/11/2025 10:30 AM EDT Office Visit [facility] [address] [place] [address] Abhishek Gregory FNP [address] [place] [address] 03/23/2025 11:15 AM EST Office Visit [address] [address] Gemini Chavez MD [address] [place] [address] documented as of this encounter Visit Diagnoses Diagnosis 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
--- OUTSIDE RECORDS SUMMARY | 2025-03-03 04:07 | XMS_ITS | Encounter Summary ---
Author Organization [employer] Address [address] [facility] 7t [place] [address] Care Team Providers Care Citizenship Instructor Name Role Phone Gemini Chavez MD Primary Care Provide r Reason for Visit * Reason Comments Med Change Request Encounter Details Date Type Department Care Team (Late st Contact Info) Description 02/04/2023 Refill [facility] [address] [place], [place] [phone] Marsha Menjivar MD 230 [place] [address] Primary hypertension Social History Tobacco Use Types [...] Description 03/11/2025 10:30 AM EDT Office Visit [facility] [address] [place] [address] [phone] Abhishek Gregory FNP 230 [place] [address] 03/23/2025 11:15 AM EST Office Visit [facility] [address] [place] [address] [phone] Gemini Chavez MD [address] [place] [address] [phone] documented as of this encounter Visit Diagnoses Diagnosis Primary hypertension Unspecified essential hypertension documented in this encounter Additional Health Concerns Assessment Noted Time PHQ-9 Depression Total Score: 6 05/16/19 23 1:42 PM EST documented as of this encounter Care Teams Citizenship Instructor Relationship Specialty Start Date End Date Gemini Chavez MD [address] [place] [address] [phone] PCP - General Family Medicine 01/21/18 [employer] 03/28/24 documented as of this encounter
--- OUTSIDE RECORDS SUMMARY | 2025-03-03 04:08 | XMS_ITS | Encounter Summary ---
Author Organization [employer] Address [address] [facility] 7t [place] [address] Care Team Providers Care Line Decorator Name Role Phone Gemini Chavez MD Primary Care Provide r Encounter Details Date Type Department Care Team (Late st Contact Info) Description 06/18/2024 Orders Only [facility] 230 [place], [place] [phone] Gemini Chavez MD 230 [place], [place] [phone] Social History Tobacco Use Types Packs/Day Years [...] Description 03/11/2025 10:30 AM EDT Office Visit [facility] [address] [place] [address] Abhishek Gregory FNP [address] [place] [address] 03/23/2025 11:15 AM EST Office Visit [address] [address] Gemini Chavez MD [address] [place] [address] documented as of this encounter Visit Diagnoses Not on filedocumented in this encounter Additional Health Concerns Assessment Noted Time PHQ-9 Depression Total Score: 0 09/03/19 9:55 AM EDT documented as of this encounter Care Teams Line Decorator Relationship Specialty Start Date End Date Gemini Chavez MD [address] [place] [address] [phone] PCP - General Family Medicine 01/21/18 [employer] 03/28/24 documented as of this encounter
--- OUTSIDE RECORDS SUMMARY | 2025-03-03 04:08 | XMS_ITS | Encounter Summary ---
Author Organization [employer] Address [address] [facility] 7t [place] [address] Care Team Providers Care Bliss Press Operator Name Role Phone Gemini Chavez MD Primary Care Provide r Reason for Visit * Reason Comments Med Refill Encounter Details Date Type Department Care Team ([facility] st Contact Info) Description 05/08/2024 Refill [facility] 230 [place], [place] [phone] Gmeini Chavez MD 230 [place] [address] Class 1 obesity due to excess calories [...] Description 03/11/2025 10:30 AM EDT Office Visit [facility] [address] [place] [address] Abhishek Gregory FNP [address] [place] [address] 03/23/2025 11:15 AM EST Office Visit [facility] [address] [place] [address] Gemini Chavez MD [address] [place] [address] documented as of this encounter Visit Diagnoses Diagnosis Class 1 obesity due to excess calories with serious comorbidity and body mass index (BMI) of 33.0 to 33.9 in adult documented in this encounter Additional Health Concerns Assessment Noted Time PHQ-9 Depression Total Score: 0 09/03/19 24 9:55 AM EDT documented as of this encounter Care Teams Bliss Press Operator Relationship Specialty Start Date End Date Gemini Chavez MD 230 [place] [address] PCP - General Family Medicine 01/21/18 [employer] 03/28/24 documented as of this encounter
--- OUTSIDE RECORDS SUMMARY | 2025-03-03 04:08 | XMS_ITS | Encounter Summary ---
Author Organization [email or web address] Address [address] [facility] 7t [place] [address] Care Team Providers Care Sweat Band Sewer Name Role Phone Gemini Chavez MD Primary Care Provide r Encounter Details Date Type Department Care Team (Late st Contact Info) Description 05/10/2024 Orders Only [facility] 230 [place], [place] [phone] Gemini Chavez MD 230 [place], [place] [phone] Stage 3 chronic kidney disease, unspecified whether [...] Description 03/11/2025 10:30 AM EDT Office Visit [address] [address] Abhishek Gregory FNP [address] [place] [phone] 03/23/2025 11:15 AM EST Office Visit [address] [address] Gemini Chavez MD [address] [place] [phone] documented as of this encounter Visit Diagnoses [...] documented as of this encounter Care Teams Sweat Band Sewer Relationship Specialty Start Date End Date Gemini Chavez MD [address] [place] [address], [place] [address] PCP - General Family Medicine 01/21/18 [employer] 03/28/24 documented as of this encounter
--- OUTSIDE RECORDS SUMMARY | 2025-03-03 04:08 | XMS_ITS | Data Portability ---
Author Organization [facility], [facility] Address [address] [place] [address] Care Team Providers Care Pipe Fitter Maintenance Name Role Phone RONALDO RAZO Primary Care Provider HIM SUKH OTHER Assessment Encounter Date Assessment Date Assessment LastModified by Organization Details LastModified Time 04/21/2024 04/21/2024 I provided real -time medical direction via phone for this encounter and was available for additional phone-based assistance as needed. I have reviewed and agree with the Assessment and Plan as documented by the Production Control Planner. Patient given the opportunity to ask questions. [...] pressure. No change in functional status. Per finish inspector on the scene, vital signs are stable [...] Assessment and Plan as documented by the Production Control Planner. We discussed the diagnostic uncertainty of home [...] to call 911- verbalized understanding of instruction [email or web address] Not available 04/27/2024 20:25:46 09/27/2024 09/27/2024 Impression: 68yo/m with hx of copd not on 02, CHF, CKD, CAD, presenting with 1 day of symptoms. Seen by medic in home, states for past 1 day has been having body aches, nonproductive cough, nasal congestion/rhino rrhea, some subjective fevers/chills. For medic in home patient is awake, alert, in no distress. Breathing comfortably. No associated chest pain, dyspnea, pleurisy, hemoptysis. No LE edema, redness, asymmetry. No other abdominal pain, nausea/vomiting, diarrhea. No other neurologic symptoms of numbness/weaknes s/paresthesias. Ambulating comfortably, tolerating PO easily. On exam patient's vitals are WNL, no tachycardia, no hypoxia. No increased work of breathing, no LE edema, however patient does have diffuse expiratory wheezes throughout bilateral lung aragon. No focality, no asymmetry. No associated crackles. Patient has albuterol inhaler and nebulizer, does not appear to be on inhaled steroid. Patient denies other ROS. Plan: Patient has 24 hours of symptoms most consistent with a viral upper respiratory infection which may have also triggered some underlying copd given his wheezing on exam. Again no associated tachycardia, hypoxia, otherwise breathing comfortably. Covid and flu are negative. No other chest pain, back pain, pleurisy or other signs or symptoms of an emergency medical condition. I believe it's reasonable to treat patient with symptomatic medications for his viral URI as well as his COPD, patient given duoneb in the home and advised to take his albuterol nebulizer scheduled every 4-6 hours while feeling symptomatic. Advised that if not improving tomorrow can start several days of prednisone which I have sent to his pharmacy. Cough is nonproductive at this time, deferring any antibiotic therapy at this time. Otherwise recommended to continue to observe his symptoms at home and followup with PMD in 24-48 hours for recheck, and seek care immediately with any acute worsening or change in symptoms. I have a low clinical suspicion at this time for an occult emergency medical condition such as ACS, PE, aortic dissection, ARDS, multifocal pneumonia, sepsis. Primary care, consider 48 hour followup. Disposition: We discussed the diagnostic uncertainty of home visits and the risk associated with this. In this case, the patient and I felt this to be an acceptable and reasonable amount of risk given the benefit of avoiding an ED visit. We discussed the need to seek care urgently/emergen tly in the setting of any new or worsening serious symptoms [email or web address] Not available 09/27/2024 12:16:54 09/29/2024 09/29/2024 Impression: 68yo/m with pmhx as above presenting with 3-4 days of persistent respiratory symptoms. Patient states symptoms began 4 days ago, [facility] Evaluation at that time was re-assuring, negative for covid/flu, had wheezing and cough, treated as mild COPD. Patient states symptoms improving, taking albuterol 4 times a day, although today last dose with this morning. No new chest pain, dyspnea, back pain, pleurisy. No new fevers/chills, nausea/vomiting, abdominal pain. No LE edema, orthopnea, PND. [...] of any new or worsening serious symptoms Not available 09/29/2024 15:23:11 10/01/2024 10/01/2024 I provided real -time medical direction via phone for this encounter, and was available for additional phone based assistance as needed. I have reviewed and agree with the Assessment and Plan as documented by the Production Control Planner. We discussed the diagnostic uncertainty of home visits and the risk associated with this.. The patient given the opportunity to ask questions. [email or web address] Not available 10/01/2024 21:44:54 Plan of Treatment Reminders Order Date Submit Date Provider Last Modified By Organization Details Last Modified Time Details Appointments None recorded. Lab BMP, serum or plasma 2024 025 [facility], [address] [place] [address], [id number] 20:26:25 rapid SARS CoV 2 Ag, QL IA, respiratory specimen [address], [address] 13:07:32 rapid flu (A+B) 2024 025 [facility], [address] [place] [address], [id number] 5 13:15:39 rapid SARS CoV 2 Ag, QL IA, respiratory specimen 2023 024 [email or web address] 0 [facility], [address] [place] [address], [id number] 4 20:24:15 rapid flu (A+B) 2023 024 [email or web address] 0 [facility], [address] [place] [address], [id number] 4 20:24:15 BMP, serum or plasma 2023 024 [email or web address] 0 [facility], [address] [place] [address], [id number] 4 20:24:15 rapid flu (A+B) 2023 024 [email or web address] [facility], [address] [place] [address], [id number] 4 10:38:31 rapid SARS CoV 2 Ag, QL IA, respiratory specimen 2023 024 [email or web address] [facility], [address] [place] [address], [address] [place] [address] 4 10:38:31 Referral None recorded. Procedures None recorded. Surgeries None recorded. Imaging electrocard iogram 2024 025 [facility], [address] [place] [address], [id number] 5 21:51:19 electrocard iogram 2023 024 [email or web address] 0 [facility], [address] [place] [address], [id number] 4 20:24:15 Medication Orders ipratropium 0.5 mg-albutero l 3 mg (2.5 mg base)/3 mL nebulizatio n soln 2024 025 [email or web address] 0 [facility]acy #2071, [address] [place], [address], 5 13:35:51 ipratropium 0.5 mg-albutero l 3 mg (2.5 mg base)/3 mL nebulizatio n soln 2024 025 [email or web address] 84 [facility]/Pharmacy #2071, [address] [place], [address], 5 15:23:32 amoxicillin 875 mg-potassiu m clavulanate 125 mg tablet 2024 025 [facility]/Pharmacy #2071, [address] [place], [address], 5 15:23:55 prednisone 20 mg tablet 2024 025 [facility] [address] [place] [address], [address], 5 12:07:58 ipratropium 0.5 mg-albutero l 3 mg (2.5 mg base)/3 mL nebulizatio n soln 2024 025 [email or web address] 84 [facility]/Pharmacy #2071, [address] [place], [address], 5 12:07:56 albuterol sulfate 2.5 mg/3 mL (0.083 %) solution for nebulizatio n 2024 025 [facility]/Pharmacy #2071, [address] [place], [address], 5 12:07:59 fluticasone propionate 50 mcg/actuati on nasal spray,suspe nsion 2023 024 [facility]/Pharmacy #2071, [address] [place], [address], 4 12:56:56 Saline Nasal 0.65 % spray aerosol 2023 024 [facility]acy #2071, [address] [place], [address], 4 12:56:56 amoxicillin 500 mg capsule 2023 024 [facility]armacy #2071, [address] [place], [address], 4 12:56:55 sodium chloride 0.9 % intravenous solution 2023 024 [email or web address] 0 [facility]/Pharmacy #2071, [address] [place], [address], 4 20:24:15 prednisone 20 mg tablet 2023 024 [facility] [address] [place], [address], 4 10:38:33 prednisone 20 mg tablet 2023 [email or web address] [facility] [address] [place], [address], 4 10:38:31 Patient TargetsNo targets recorded. Patient InstructionsNo instructions recorded. Reason for Referral None Reported. Results Created Date Observation Date Name Description Value Unit Range Abnormal Flag Note LastModifiedBy Organization Detail LastModifiedTime 04/21/20 24 04/21/2024 rapid SARS CoV 2 Ag, QL IA, respi rator y speci men rapid SARS CoV 2 Ag, QL IA, respiratory specimen negati ve Not Available [facility] [address] [place] [address], [id number] 04/21/2024 10:37:26 04/21/20 24 04/21/2024 rapid flu (A+B) Flu negati ve Not Available [facility] [address] [place] [address], [id number] 04/21/2024 10:37:25 04/27/20 24 04/27/2024 rapid flu (A+B) Flu negati ve Not Available [facility] [address] [place] [address], [address] 04/27/2024 12:57:09 04/27/20 24 04/27/2024 rapid SARS CoV 2 Ag, QL IA, respi rator y speci men rapid SARS CoV 2 Ag, QL IA, respiratory specimen negati ve Not Available [facility] ed [address] [place] [address], [address] 04/27/2024 12:57:08 09/28/19 25 09/27/2024 rapid flu (A+B) Flu negati ve Not Available [facility] ed [address] [place] [address], [address] 09/27/2024 12:06:07 09/28/19 25 09/27/2024 rapid SARS CoV 2 Ag, QL IA, respi rator y speci men rapid SARS CoV 2 Ag, QL IA, respiratory specimen negati ve Not Available [facility] ed [address] [place] [address], [address] 09/27/2024 12:06:06 03/31/20 24 03/31/2024 elect rocar diogr am No observ ation record ed. [email or web address] [facility] - [address], [address] 03/31/2024 18:36:06 04/27/20 24 04/27/2024 elect rocar diogr am No observ ation record ed. [email or web address] [facility] - [address], [address] 04/27/2024 20:22:51 10/02/19 25 10/01/2024 elect rocar diogr am No observ ation record ed. [email or web address] [address], [address] 10/01/2024 20:26:07 Result Notes None recorded. Medical Equipment None Reported. Allergies Allergen ID Allergen Name Allergen Category Reaction Reaction Severity Criticality Documentation Date Start Date Code Code System Note Provider Name and Address Organization Details Recorded Time 90891 Iodinated contrast media (substanc e) medicatio n Not available Not available Not available 09/29/2024 21713 2003 SNOMED Not Available [facility] - production 13:32:48 Medications Name Sig Start Date Stop [...] V A ORAL TODOS LOS D FOR 90 DAYS active Not Available Not Available No [...] for nebulization USE 1 VIAL VIA NEBULIZER 3 TIMES A DAY active Not Available Not Available Not Available azithromycin 250 mg tablet TOME 2 TABLETAS POR V A ORAL HOY, [place] TOME 1 TABLETA POR D A CHAZ 4 D active Not Available Not Available No t Available simethicone 180 mg capsule TOME 1 C PSULA POR V A ORAL 4 TIMES A DAY FOR 30 DAYS AFTER MEALS active Not Available Not Available Not Available senna 8.6 mg tablet TOME DOS TABLETAS POR V A ORAL AL ACOSTARSE active Not Available Not Available No t Available metoprolol succinate ER 200 mg tablet,exten ded release 24 hr TOME 1 TABLETA POR V A ORAL TODOS LOS D active Not Available Not Available No t Available FreeStyle Lancets 28 gauge USE TO TEST BLOOD SUGAR ONCE DAILY active Not Available Not Available N ot Available prednisone 20 mg tablet TOME DOS TABLETAS POR V A ORAL ONCE DAILY active Not Available Not Available No t Available clonazepam 1 mg tablet TOME 1 TABLETA POR V A ORAL DOS VECES AL D A CUANDO SEA NECESARIO active Not Available Not Available No t Available amlodipine 2.5 mg tablet TAKE 2 TABLETS (5 MG) BY MOUTH ONCE PER DAY. active Not Available Not Available No t Available metronidazol e 500 mg tablet TOME 1 TABLETA POR V A ORAL KINJAL VECES AL D A POR 10 D active Not Available Not Available No t Available tramadol 50 mg tablet TOME 1 TABLETA POR V A ORAL TODOS LOS D AL ACOSTARSE POR 7 D active Not Available Not Available N ot Available acetaminophe n 500 mg tablet TOME FAUSTINA TABLETA CADA SEIS HORAS CUANDO SEA NECESARIO active Not Available Not Available No t Available levothyroxin e 100 mcg tablet TOME 1 TABLETA POR VIA ORAL TODOS [place] LANDEROS active Not Available Not Available No t Available meclizine 25 mg tablet PLEASE SEE ATTACHED FOR DETAILED DIRECTIONS active Not Available Not Available N ot Available amlodipine 10 mg tablet TAKE 1 TABLET (10 MG) BY MOUTH ONCE PER DAY. active Not Available Not Available No t Available benzonatate 100 mg capsule PLEASE SEE ATTACHED FOR DETAILED DIRECTIONS active Not Available Not Available N ot Available cephalexin 500 mg capsule TOME FAUSTINA C PSULA KINJAL VECES AL D A AFTER SURGERY active Not Available Not Available No t Available pantoprazole 40 mg tablet,delay ed release TOME FAUSTINA TABLETA POR V A ORAL A DIARIO active Not Available Not Available No t [...] Not Available No t Available hydrochlorot hiazide 25 mg tablet TOME 1 TABLETA POR V [...] amoxicillin 875 mg-potassium clavulanate 125 mg tablet TOME 1 TABLETA POR V A ORAL CADA 12 HORAS POR 5 D active Not Available Not Available No [...] Available Saline Nasal 0.65 % spray aerosol ADMINISTER 2 SPRAYS EVERY 3 TO 4 HOURS BY NASAL ROUTE NEEDED. active Not Available Not Available N ot Available rosuvastatin 40 mg tablet TOME 1 TABLETA [...] Not Available Not Available No t Available FreeStyle Lite Strips USE TO TEST BLOOD SUGAR ONCE DAILY active Not Available Not Available N ot Available FreeStyle [place] Lite kit USE TO TEST BLOOD SUGAR ONCE DAILY active Not Available Not Available N ot Available L.acidophil, salivari-Bif quang bifidum-Stre p thermoph [...] Not Available Not Available No t Available sodium,potas sium,mag sulfates 17.5 gram-3.13 gram-1.6 gram oral soln DILUTE DRINK 1/2 AT 6-8 PM AND HALF AT 11 PM- 1AM active Not Available Not Available N ot Available Eliquis 5 mg tablet TOME 1 TABLETA POR V A ORAL DOS VECES AL D A active Not Available Not Available No t Available Creon 36,000 unit-114,000 unit-180,000 unit capsule,eden yed release TOME 2 C PSULAS POR V A ORAL DOS VECES AL [...] 250 mcg-50 mcg/dose powder for inhalation INHALE 1 SPRAY DOS VECES AL D A active Not [...] t Available Vitals Date Recorded Respiratory rate Oxygen saturation Oxygen saturation in Arterial blood by Pulse oximetry Heart rate Body temperature Systolic And Diastolic Provider Name and Address Organization Details Last Updated DateTime 5 18 /min 97 % 97 % 84 /min 97.8 [degF] 118/68 mm[Hg] Not Available [facility] - production 5 11:58:08 Date Recorded Respiratory rate Heart rate Body temperature Oxygen saturation Oxygen saturation in Arterial blood by Pulse oximetry Systolic And Diastolic Provider Name and Address Organization Details Last Updated DateTime 5 20 /min 80 /min 98.5 [degF] 97 % 97 % 150/90 mm[Hg] Not Available [employer] 15:07:54 Date Recorded Body height Body mass index (BMI) Body weight Provider Name and Address Organization Details Last Updated DateTime 10/01/2024 162.56 cm 36 kg/m2 39327.4 g Davina Garner MD [address] [place] [address],[address] [place], [address], [employer] 10/01/2024 13:25:45 Date Recorded Oxygen saturation Oxygen saturation in Arterial blood by Pulse oximetry Heart rate Body temperature Respiratory rate Systolic And Diastolic Provider Name and Address Organization Details Last Updated DateTime 97 % 97 % 76 /min 97.6 [degF] 20 /min 118/60 mm[Hg] Not Available [facility] 13:23:31 Date Recorded Body height Body mass index (BMI) Body weight Provider Name and Address Organization Details Last Updated DateTime 04/27/2024 162.56 cm 33.5 kg/m2 96524.51 g Davina Garner MD [address] [place] [address],[address] [place] [address], [id number] 04/27/2024 20:03:55 Date Recorded Oxygen saturation Oxygen saturation in Arterial blood by Pulse oximetry Body temperature Respiratory rate Heart rate Systolic And Diastolic Provider Name and Address Organization Details Last Updated DateTime 98 % 98 % 98.1 [degF] 20 /min 95 /min 150/100 mm[Hg] Not Available [facility] 11:24:31 Social History None recorded. Functional Status None recorded. Mental Status None recorded. Family History Nothing Reported. Medical History No medical history recorded. Past Encounters Encounter ID Performer Location Encounter Start Date Encounter Closed Date Diagnosis/Indication Diagnosis SNOMED-CT Code Diagnosis ICD10 Code Diagnosis IMO Codes Diagnosis Note [id number] [facility] [address] [place] [id number] 04/11/2022 18:32:13 04/15/2022 15:46:34 Cough 88996806 R05.9 [id number] Davina Garner MD [facility] [address] [place] [id number] 01/07/2023 14:14:00 01/07/2023 22:56:53 Essential hypertension 37545349 I10 Patient exam is benign. Patient reassured/ his blood pressure is normal when taken with the medic cough. The medic measured the patient's blood pressure with his 5-year-old home machine and got 135/112 thus it is the patient's machine that is giving erroneous readingsNo te sent to [facility] to reach out to the healthcare network pricing consultant to assist the patient in obtaining a new home blood pressure monitor. Advised to continue all his regular medication s and follow-up with his PCP as needed [id number] Davina Garner MD [facility] [address] [place] [id number] 01/08/2023 15:21:28 01/08/2023 23:59:09 Viral upper respiratory tract infection 060814761 J06.9 And viral pharyngiti s-advised to gargle [...] pcp. Sandra Bloom MD [facility] [address] [place] [id number] 06/23/2023 18:11:30 06/24/2023 10:34:59 Dizziness 038862294 R42 [id number] Marlyn Casas MD [facility] [address] [place] [id number] 08/05/2023 10:57:00 08/05/2023 16:00:41 Asthma 982784875 J45.909 Exacerbati on of moderate persistent asthma 778057210 J45.41 [id number] Eric Israel MD [facility] [address] [place] [id number] 08/13/2023 12:51:38 08/13/2023 20:11:05 Acute exacerbation of chronic obstructive pulmonary disease 175363639 J44.1 The patient has a flare-up of his COPD. He will continue his current treatments . [id number] Eric Israel MD [facility] [address] [place] [phone] 11/14/2023 12:02:23 11/14/2023 21:31:15 Vertigo 072581061 R42 This 67-year-ol d male with a past history of vertigo developed mild vertigo today. He has taken Meclizine in the past with good relief. I ordered Meclizine 50 mg now. He will follow-up with his PCP if the vertigo persists. The patient agreed with this plan. [id number] Thomas Lyon MD [facility] [address] [place] [id number] 11/27/2023 21:44:10 11/28/2023 10:18:17 Headache 51313006 R51.9 [id number] Jeancarlos Gonsales MD [facility] - [address] [address] 03/20/2024 14:41:13 03/22/2024 13:41:42 Orthostatic hypotension 68351330 I95.1 Atrial fibrillation 4943 6004 I48.91 [id number] HAN MARIE MD [facility] [address] [place] [phone] 03/31/2024 18:19:08 04/01/2024 11:10:35 Dizziness 850902968 R42 Evaluation in the field was performed by my finish inspector colleague, as noted above, I provided real-time [...] , palpitatio ns or any other concerns. [id number] Marlyn Casas MD [facility] [address] [place] [id number] 04/21/2024 10:14:37 04/22/2024 00:16:20 Asthma-chronic obstructive pulmonary disease overlap syndrome [id number] 4252450 J44.9 Viral uppe r respiratory tract infection 079602733 J06.9 [id number] Davina Garner MD [facility] [address] [place] [id number] 04/27/2024 11:24:18 04/27/2024 22:19:18 Headache 08498526 R51.9 w/ dizziness- possibly sinusitisS lightly less [...] Tylenol max 3500 mg/day based on weight. [id number] Bladimir Ureña MD [facility] [address] [place] [phone] 09/27/2024 11:58:02 09/27/2024 18:16:19 Viral upper respiratory tract infection 893850974 J06.9 [id number] Acute exac erbation of chronic obstructive pulmonary disease 107117408 J44.1 [id number] Bladimir Ureña MD [facility] [address] [place] [phone] 09/29/2024 15:07:52 09/29/2024 18:34:43 Persistent cough 661327410 R05.3 [id number] Davina Garner MD [facility] [address] [place] [phone] 10/01/2024 13:23:27 10/02/2024 14:08:40 Dyspnea 747170669 R06.02 [id number] EKG reveals A-fib at 90 with biphasic T wave question T WI in lead III/T WI in aVR/narrow QRS 95 ms and normal QT 342 ms/QTc 421 ms. No ectopy unchanged essentiall y from 04/27/2024 . Patient informed. BMP is concerning for hyperglyce jorge luis of 246(likely due to recent steroids patient is prediabeti c not on diabetic medication )/elevated creatinine 44 and 1.6. His H&H is 13.9/41 both consistent with possible dehydratio n/BEE on top of CKD. Patient may clinically have some CHF, so cannot bolus ivf @ home. He improved briefly status post nebulizer but wheezing was still somewhat present, then the wheezing increased again and his dyspnea returned 10 minutes later. He needs a chest x-ray at this point to sort out COPD exacerbati on/pneumon ia/CHF -he will require more lab work and closer monitoring that we can provide at home. After 3 successive in-home visits with maximal available therapy he is not improving. Advised the need to be evaluated and treated at the hospital. He is agreeable. He request to go to [facility]. Report called to [facility] ED staff. Health Concerns Section Related Observation LastModified by Organization Detai ls LastModified Time None Recorded Concern Status LastModified by Organization Details LastModified Time None Recorded Advance Directives Directive None Recorded Payers Insurance Date Sequence Insurance Name Policy Number Policy Young Covered Member ID Young Member ID Guarantor Name 03/31/2024 1 [facility] - DOS PRIOR TO 2022 - DUAL ELIGIBLE (MEDICARE REPLACEMENT/AD VANTAGE - HMO) Min Davonte [id number] Min Arauz 09/27/2024 1 [facility] - DOS ON OR AFTER 2022 - DUAL ELIGIBLE - [facility] OPTIONS AND ONE CARE (MEDICARE REPLACEMENT/AD VANTAGE - HMO) Min Davonte [id number] Min Davonte Notes Date Note Type Note Provider Name and Address Organization Details Recorded Time 04/27/2024 text/html ROS as noted in the HPI CRC Nurse Triage Notes (Padmini Payne - [...] morning. Patient would like to be re-evaluated. Production Control Planner Organization Information for [facility] Legal Name: [employer]. Address: [address] [place] [address], Window Caser: Parish Ruiz MD CLIA No.: [id number] Production Control Planner POC Test Results from [facility] CHRIS EKG (13:04:26) EKG test performed. Reason for missing picture: Uploaded iSTAT Chem8+ (13:04:28) Na: 137 mEq/L K: 3.8 mEq/L Cl: 103 mEq/L iCa: 1.17 mmol/L TCO2: 22 mmol/L Glu: 94 mg/dL BUN: 25 mg/dL Crea: 1.3 mg/dL Hct: 34 % Hb: 11.6 g/dL A Rapid COVID antigen (13:04:29) COVID: - Rapid influenza antigen (13:04:30) Flu: - ...................... ...................... ...................... ...................... ...................... ...................... ......... Production Control Planner Note From [facility] Mejia: Dispatched for the scheduled visit for the male patient with a headache. pt. was found alert and oriented x3 sitting in bed c/o of a severe headache from yesterday with dizziness upon sitting up. pt. noted he had been seen by [facility] on the but could not remember his [...] in all extremities -dcaptbtls -stroke scale findings. [facility] contacted and ordered COVID and FLU swab, BMP and orthostatic vital signs while sitting and standing in addition. 21 gauge butterfly LAC performed for BMP. all results forwarded and [facility] then ordered a 12 lead ekg and IV with 750 ml Normal Saline. IV established 18 gauge left forearm-normal saline IV drip 750 ml. all results forwarded to [facility] with changed after normal saline. [facility] noted she would send amoxicillin and Fluticasone and saline nasal spray to the patients pharmacy for possible nasal infection. red flag warnings discussed and noted to call 911 if headache or dizziness worsened any slurred speech, weakness, facial droop or syncope occurred. all times are approx.report completed by rob mejia. [facility] Orders: rapid SARS CoV 2 Ag, QL IA, respiratory specimen: Performed ...................... ...................... ...................... ...................... ...................... ...................... ......... [facility] Consulted: Davina Garner ...................... ...................... ...................... ...................... ...................... ...................... ......... Disposition: FulfilledSEGMD: letty seen by [facility] on 04/21 and diagnosed with COPD exacerbation [...] Kidney Disease, Obesity. Davina Garner MD [address] [facility],[address], [place], [address], [employer] 04/27/2024 20:33:33 09/27/2024 text/html ROS as noted in the HPI CRC Nurse Triage Notes (Renetta Del Rosario): Reason For Request: Pt reporting cough>sore throat>body aches and pain>symptoms began yesterday Patient Reports: History of asthma, increased use of inhaler; COPD; Cough; Shortness of breath with exertion Denies: Increased work of breathing/labored with or without fever Unable to speak in full sentences without distress Discoloration of skin -cyanosis Needs to sleep sitting up, can t catch breath Shortness of breath in setting of confusion Chief Complaints: Common Cold, Cough, Breathing Problems PMH: COPD/Asthma, Hypertension, Congestive Heart Failure, Coronary Artery Disease, Gastroesophageal Reflux Disease (GERD), Chronic Kidney Disease, Obesity PMH Reviewed at 09/27/2024 - 11:06 Allergies Reviewed at 09/27/2024 - 11:06 Comments: Member calling in complaining of coughing, sore throat, congestion, and shortness of breath. Member is wheezing on the phone. Confirmed identity via name/. Symptoms started yesterday afternoon. Member also having full body aches and thinks he has a fever. Having soft BMs multiple times a day. Able to take pills but not eating and drinking much. Using inhaler but does not find it is helping much. Having shortness of beath but it doesn't seem worse than usual- biggest complaint is the cough. Denies chest pain. 68 y.o male complains of Common Cold, Cough, Breathing problems. I provided information on the mobile health provider response time and advised the patient and/or caregiver to monitor reported signs and symptoms. I discussed the warning signs of when to seek emergency care. Jamie Del Rosario RN Production Control Planner Organization Information for [employer] Business Legal Name: [employer]. Address: [address] [place] [address], Window Caser: Parish CAUSEY No.: [id number] Production Control Planner POC Test Results from [facility] Rapid influenza antigen (11:55:06) Flu: - Attachments uploaded as part of this test result can be found under Documents section. Rapid COVID antigen (11:55:07) COVID: - Attachments uploaded as part of this test result can be found under Documents section. ...................... ...................... ...................... ...................... ...................... ...................... ......... Production Control Planner Note From Brendan [facility]: Pt seen for complaint of respiratory symptoms. Found Pt, guerrero x 4 supine in bed. Pt reports cough, body aches and increased SOB with exertion starting yesterday. Pt reports occasionally producing clear mucus with cough. Pt reports minimal SOB at rest, mainly complaining of the cough. Pt reports he has not felt the need to use his rescue inhaler or nebulizer treatment more than he normally would. Pt denies all other complaints. Pt speaking in full sentences with no difficulty. No cyanosis. Pt has frequent cough in my presence, no mucus production. LS reveal expiratory wheezing in all aragon, no crackles. Pt has no edema. VS as noted. Pt exam otherwise unremarkable. Covid & flu A/B POC all negative. [facility] contacted and advised of Pt complaint, presentation and exam findings. [facility] orders Duoneb updraft and will send prescription for PO Prednisone to Pt's pharmacy, Pt allergies confirmed. [facility] orders for Pt to use his home nebulizer tx Q4-6 hrs. Duoneb administered. Pt advised of all [facility] tx plan and recommendations. Pt understanding and agreeable to this. Pt has no further questions or concerns. Call closed. [facility] Orders: rapid SARS CoV 2 Ag, QL IA, respiratory specimen: Performed rapid flu (A+B): Performed [facility] Medication Orders: ipratropium 0.5 mg-albuterol 3 mg (2.5 mg base)/3 mL nebulization soln: Administered ...................... ...................... ...................... ...................... ...................... ...................... ......... [facility] Consulted: Bladimir Ureña ...................... ...................... ...................... ...................... ...................... ...................... ......... Disposition: Fulfilled Bladimir Ureña MD [address] [place] [address],[address], [place], [address], [employer] 09/27/2024 12:32:54 09/29/2024 text/html ROS as noted in the HPI HPI: No consumer sales representative needed as this contract technical writer speaks Barbadian. Call returned to Min Cano via [employer] as this contract technical writer is remote to triage below. Reports having sx of cough, intermittent SOB since Friday. Denies any CP. PT having intermittent wheezing. No fever. Pt having ST and runny nose. NO homekit for COVID-19. Pt alert, oriented. Speaking clearly with noted hoarseness. Pt offered our walk in center. Prefers instED referral. Confirmed Demographics and allergies. ...................... ...................... ...................... ...................... ...................... ...................... ......... CRC Nurse Triage Notes (Kaitlyn Kline): Reason For Request: breathing problems Chief Complaints: Breathing Problems, Cough, Sore Throat PMH: COPD/Asthma, Hypertension, Congestive Heart Failure, Coronary Artery Disease, Gastroesophageal Reflux Disease (GERD), Chronic Kidney Disease, Obesity PMH Reviewed at 09/29/2024:32 Allergies Reviewed at 09/29/2024 - 13:32 Comments: HPI reviewed ...................... ...................... ...................... ...................... ...................... ...................... ......... Production Control Planner Note From Romero [employer]: SC12 dispatched to address listed above for the report of a male green party with breathing issues. Arrival on scene, patient [...] Patient advised that he was visited by [facility] over 09/27 for same complaints, tested negative [...] etc. Patient vital signs obtained as noted. [facility] consulted, provided orders for a Duoneb treatment, advised he would send prescription for antibiotics to patient preferred pharmacy. Above DuoNeb treatment (3mg Albuterol and 0.5mg Ipratropium [place]) was administered without incident with reported improvement, six patient rights verified prior. Patient reported that he was feeling much better after nebulizer treatment, advised that he felt okay staying home. Patient advised to continue taking his nebulizer up to 4 times a day per [facility], Prednisone, and Antibiotics when he picks it up. Red flags were discussed with patient, advised to call 911 if he begins to experience life threatening symptoms. SC12 Clear. [facility] Medication Orders: ipratropium 0.5 mg-albuterol 3 mg (2.5 mg base)/3 mL nebulization soln: Administered ...................... ...................... ...................... ...................... ...................... ...................... ......... [facility] Consulted: Bladimir Ureña ...................... ...................... ...................... ...................... ...................... ...................... ......... Disposition: Fulfilled Bladimir Ureña MD [address] [facility],[address], [place], [address], [employer] 09/29/2024 17:30:47 10/01/2024 text/html ROS as noted in the HPI HPI: 68 y.o male complains of Breathing ProblemsDee from [facility] calling reporting patient is having SOB and reports difficulty with his asthma. Patient is Barbadian speaking primarily, consumer sales representative# [phone] used for triage assessment. Patient reports he has been having difficulty breathing for the last 5 days. Patient's voice sounds strained, patient reports this is not his normal voice. Patient reports he last used his nebulizer around 0700. Patient advised to use another nebulizer treatment while this RN is on the phone. Offered to call 911 for patient due to reported difficulty breathing, but patient adamant he does not want to go to the hospital. Patient noted to have cough, pt denies fever. Patient states he is unable to sleep well at night, stating one of his arms is dislocated and causing him trouble sleeping. Unable to gain further clarification on whether patient has seen a doctor in regards to his dislocated arm. Patient reports he is taking 2 new medications, unclear what he is taking and why. Patient speaking in full, complete sentences at time of call. I provided information on the mobile health provider response time and advised the patient and/or caregiver to monitor reported signs and symptoms. I discussed the warning signs of when to seek emergency care -Mary Jane Hess RN ...................... ...................... ...................... ...................... ...................... ...................... ......... CRC Nurse Triage Notes (Ishmael Hess): Reason For Request: Patient has breathing problems.Denies: Increased work of breathing/labored with or without fever Unable to speak in full sentences without distress Discoloration of skin -cyanosis Needs to sleep sitting up, can t catch breath Shortness of breath in setting of confusion Chief Complaints: Breathing ProblemsPMH: COPD/Asthma, Hypertension, Congestive Heart Failure, Coronary Artery Disease, Gastroesophageal Reflux Disease (GERD), Chronic Kidney Disease, Obesity, Anxiety DisorderPMH Reviewed at 10/01/202416Allergies Reviewed at 10/01/2024:16 Production Control Planner Organization Information for [employer] Legal Name: [employer]. Address: [address] [place] [address], Window Caser: Parish Ruiz MD [place] No.: [id number] Production Control Planner POC Test Results from [employer] iSTAT Chem8+ (13:59:58) Na: 137 mEq/L K: 4.9 mEq/L Cl: 108 mEq/L iCa: 1.26 mmol/L TCO2: 22 mmol/L Glu: 246 mg/dL BUN: 44 mg/dL Crea: 1.6 mg/dL Hct: 41 % Hb: 13.9 g/dL A mmol/L Cartridge Number: --- Attachments uploaded as part of this test result can be found under Documents section. EKG (14:06:40) EKG test performed. Attachments uploaded as part of this test result can be found under Documents section. ...................... ...................... ...................... ...................... ...................... ...................... ......... Production Control Planner Note From Romero Tony: SC12 dispatched to the address listed above for the report of a male green party with shortness of breath. Arrival on scene, patient found inside apartment seated in chair, alert and oriented x4, patent airway, breathing slightly labored but still speaking in complete sentences, skin WPD. +/= Chest rise. +SOB, -CP, -NVD, -Trauma, -Fever. GCS 15. Lung sounds revealed diffuse wheezing on expiration and rhonchi in the bases. Abdomen Soft, non tender, but reported distention. No pitting edema or increased swelling to the lower extremities. Patient reports that he has been having increased shortness of breath over the past 5 days, specifically when laying flat or upon exertion, reports history of asthma and CHF. Patient reports that he has been visited by [facility] 2 separate times over the past week, prescribed Prednisone which he has been taking for 4 days and Augmentin which he has only been taking for a day. Patient reports symptoms management with Albuterol Nebulizer up to 4 times a day, last nebulizer about 20 minutes prior to [facility] arrival with reported improvement. Patient reports he begins to feel short of breath again within 20 minutes of finishing nebulizer treatment. Patient vital signs obtained as noted. [facility] consulted, provided orders for DuoNeb treatment, BMP, and 12 lead EKG. DuoNeb treatment administered with 3mg Albuterol/0.5mg Atrovent with reported improvement, six patient rights verified, [facility] noted patient began to experience labored breathing again shortly after finishing DuoNeb Treatment. Blood draw completed via 21 gauge butterfly needle in right forearm, removed at end of blood draw. ISTAT BMP performed as noted and uploaded to [facility]. 12 Lead EKG performed, uploaded to [facility] for remote interpretation. [facility] consulted again, recommended that patient go to the ED for imaging which patient agreed to. 911 called for patient, Maricel [facility] arrival on scene shortly after. Patient report given to [facility] and care was transferred. EMS assisted as needed until transport initiated. SC12 Clear. [facility] Orders: BMP, serum or plasma: Performed [facility] Medication Orders: ipratropium 0.5 mg-albuterol 3 mg (2.5 mg base)/3 mL nebulization soln: Administered ...................... ...................... ...................... ...................... ...................... ...................... ......... [facility] Consulted: Davina Garner ...................... ...................... ...................... ...................... ...................... ...................... ......... Disposition: Fulfilled SEGMD: Patient seen on 09/27/2024-rapid COVID and flu negative prescribed prednisone after being given nebulizer x 2. Patient reseen 09/29 given a DuoNeb and Augmentin. He has been compliant with his medication and his nebulizers and he is not improving. He is on Lasix 40 mg daily no potassium. Last labs I have for him are BUN 25/creat 1.3 with H&H 11.6 /34 on 04/27/2024. He denies chest pain, fever, chills, sweats, nausea, vomiting, diarrhea but he has marked BRYSON and orthopnea. No productive cough. Davina Garner MD [address] [facility],[address], [place], [address], [employer] - Tradyo, JANICE 10/01/2024 21:50:38
--- OUTSIDE RECORDS SUMMARY | 2025-03-03 04:08 | XMS_ITS | Encounter Summary ---
Author Organization [employer] Address [address] [facility] 7t [place] [address] Care Team Providers Care Scheduling Coordinator Name Role Phone Gemini Chavez MD Primary Care Provide r Reason for Visit * Reason Comments Med Refill Encounter Details Date Type Department Care Team ([facility] st Contact Info) Description 10/16/2024 Refill [facility] [address] [place], [place] [phone] Gemini Chavez MD [address] [place] [address] Prediabetes Social History Tobacco Use Types Packs/Day [...] Description 03/11/2025 10:30 AM EDT Office Visit [facility] [address] [place] [address] Abhishek Gregory FNP [address] [place] [address] 03/23/2025 11:15 AM EST Office Visit [address] [address] Gemini Chavez MD [address] [place] [address] documented as of this encounter Visit Diagnoses Diagnosis Prediabetes Other abnormal glucose documented in this encounter Additional Health Concerns Assessment Noted Time PHQ-9 Depression Total Score: 0 09/03/19 9:55 AM EDT documented as of this encounter Care Teams Scheduling Coordinator Relationship Specialty Start Date End Date Gemini Chavez MD [address] [place] [address] PCP - General Family Medicine 01/21/18 [employer] 03/28/24 documented as of this encounter
--- OUTSIDE RECORDS SUMMARY | 2025-03-03 04:08 | XMS_ITS | Encounter Summary ---
Author Organization [employer] Address [address] [facility] 7t [place] [address] Care Team Providers Care Wood Crew Supervisor Name Role Phone Gemini Chavez MD Primary Care Provide r Reason for Visit * Reason Comments Med Refill Encounter Details Date Type Department Care Team (Late st Contact Info) Description 10/20/2023 Refill [facility] [address] [place], [place] [phone] Gemini Chavez MD [address] [place] [address] Seasonal allergies Social History Tobacco Use Types [...] Description 03/11/2025 10:30 AM EDT Office Visit [facility] [address] [place] [address] Abhishek Gregory FNP [address] [place] [address] 03/23/2025 11:15 AM EST Office Visit [address] [address] Gemini Chavez MD [address] [place] [address] documented as of this encounter Visit Diagnoses Diagnosis Seasonal allergies Allergic rhinitis, cause unspecified documented in this encounter Additional Health Concerns Assessment Noted Time PHQ-9 Depression Total Score: 0 09/03/19 9:55 AM EDT documented as of this encounter Care Teams Wood Crew Supervisor Relationship Specialty Start Date End Date Gemini Chavez MD [address] [place] [phone] PCP - General Family Medicine 01/21/18 [employer] 03/28/24 documented as of this encounter
--- NOTE | 2025-03-03 04:44 | PC.NURSE ---
pt back from CT Scan, 1 liter of fluids started.
[2025-03-03] MEDS: iohexoL 350 MG/ML 100 ML INFUS..BTL 80 ML IV (04:57)
[2025-03-03 05:28] LABS: Reflex Lactate? Lactic Acid Added
[2025-03-03 05:48] LABS: Troponin-I High Sensitivity 11.3 ng/L (<3.5-35.0)
--- NOTE | 2025-03-03 05:58 | MHC.EDTECH ---
@0588 LACTIC ORDERED - DUPLICATE.
[2025-03-03 06:10] VITALS: BP 174/104; PULSE 68; RESP 12; O2SAT 97
[2025-03-03 06:12] VITALS: BP 168/94; PULSE 77; RESP 12
--- NOTE | 2025-03-03 06:14 | PC.NURSE ---
Notified Dr. Stiles of elevated blood pressure, no new changes at this time.
[2025-03-03 06:34] VITALS: BP 176/99; PULSE 74; RESP 13; TEMP 36.4; O2SAT 100
--- NOTE | 2025-03-03 06:42 | PC.NURSE ---
Iv removed, reviewed discharge instructions with pt. pt verbalized understanding, no sign of distress.
[2025-03-03 06:43] VITALS: BP 176/99; PULSE 74; RESP 13; TEMP 36.4; O2SAT 100
[2025-03-03 07:25] LABS: Reflex Lactate? Lactic Acid Added
== END 2025-03-03 06:43 | disposition home or self-care (01) ==
PROVIDERS: Emergency Provider Emergency Medicine; PCP Internal Medicine
DX: R07.89 Other chest pain (principal); R10.9 Unspecified abdominal pain; R53.1 Weakness; I48.91 Unspecified atrial fibrillation; G47.33 Obstructive sleep apnea (adult) (pediatric); E11.9 Type 2 diabetes mellitus without complications; I10 Essential (primary) hypertension; Z03.818 Encounter for observation for suspected exposure to other biological agents ruled out; Z79.01 Long term (current) use of anticoagulants; Z79.899 Other long term (current) drug therapy; Z79.84 Long term (current) use of oral hypoglycemic drugs; Z87.891 Personal history of nicotine dependence
CPT/HCPCS: 36415; 71275; 74174; 80053; 82803; 83605; 83690; 84484; 85025; 87040; 87637; 93005; 96361; 96374; 96375; 99285; J2270; J2470; Q9967

== ENCOUNTER → 2025-03-03 03:15 | Outpatient (BNV) | payer OTHER, SELFPAY | PROVIDERS: Emergency Provider Emergency Medicine; PCP Internal Medicine; Visit Provider Internal Medicine Cardiovascular Disease | DX: I48.91 Unspecified atrial fibrillation (principal) | CPT/HCPCS: 93010 ==

== ENCOUNTER → 2025-03-03 03:42 | Outpatient (BNV) | payer OTHER, SELFPAY | PROVIDERS: Emergency Provider Emergency Medicine; PCP Internal Medicine; Visit Provider Radiology Diagnostic Radiology | DX: I77.810 Thoracic aortic ectasia (principal) | CPT/HCPCS: 71275; 74174 ==

== ENCOUNTER 2025-03-11 11:38 | Outpatient (REF) | payer OTHER, SELFPAY ==
--- OUTSIDE RECORDS SUMMARY | 2025-03-11 10:30 | XMS_ITS | Encounter Summary ---
Author Organization [employer] Address 75 [facility] 7t [place] [address] Care Team Providers Care Assistant Manager Of Operations Name Role Phone Gemini Chavez MD Primary Care Provide r Reason for Visit * Reason Comments Pre-op Exam Encounter Details Date Type Department Care Team ([facility] st Contact Info) Description 03/11/2025 10:30 AM EDT Office Visit [facility] [address] [place] [address] Chronic systolic heart failure (HCC) (Primary Dx); Preop examination; Primary hypertension Social History Tobacco Use Types [...] Sign Reading Time Taken Comments Blood Pressure 120/78 03/11/2025 10:32 AM EDT Pulse 90 03/11/2025 10:32 AM EDT Temperature 36.7 C (98 F) 03/11/2025 10:32 AM EDT Respiratory Rate 16 03/11/2025 10:32 AM EDT Oxygen Saturation 98% 03/11/2025 10:32 AM EDT Inhaled Oxygen Concentration - - Weight 97 kg (213 lb 12.8 oz) 03/11/2025 10:32 A M EDT Height - - Body Mass Index 33.79 12/15/2024 9:59 AM EDT documented in this encounter Progress Notes * Abhishek Gregory, LEV - 03/11/2025 10:30 AM EDT Images from the original note were not included. Min Cano is a 69 y.o. @GENDER@ who presents to the office for a preoperative evaluation. Procedure: Rotator Cuff Surgery Date of Procedure: 04/06/25 Lab: EKG: At baseline; Afib / junctional rhythm HPI Min Cano, 69 years Left Shoulder Pain - Left shoulder pain for approximately one year - Pain worsens with movement, especially lifting the arm - Denies injury or trauma preceding onset - Scheduled for rotator cuff surgery on April 06, 2025 Shortness of Breath and Chest Sensation - Shortness of breath when walking up stairs or with exertion, relieved by rest - Reports a cold sensation or funny feeling in the chest during episodes, denies chest pain - Denies palpitations Lower Extremity Swelling - Occasional swelling in legs - Uses a device at home daily for leg compression as instructed by cardiology Dizziness - Occasional dizziness, especially in the morning after taking antihypertensive medication - Dizziness resolves within approximately 15 minutes Headaches - Occasional headaches in the afternoon, not daily - Headaches relieved by Tylenol within 15-20 minutes Gastrointestinal Symptoms - History of stomach pain and cold sensation, previously told had an ulcer during a hospital visit - Treated with medication for ulcer, name not recalled, reports improvement with medication Kidney Pain - Occasional back pain, follows with a kidney doctor - Last nephrology visit approximately 1-2 weeks ago, told everything is okay Mobility Issues - Uses a cane for ambulation due to knee pain - Reports dizziness and need for cane when walking Weight Gain - Reports weight gain, unsure of amount Denials - Denies fever, chills, sweating, cough, congestion, sinus pain, throat pain, ear pain, visual changes, constipation, diarrhea, blood in stool or urine, nausea, vomiting, urinary symptoms, numbness, weakness, or easy bruising - Denies changes in appetite or activity - Denies emotional agitation Denies personal or family history of bleeding diathesis or life-threatening anesthetic reactions Denies kidney disease, thyroid disease, liver disease, asthma, or diabetes. Denies history of stroke. Denies problems with pain, stiffness, or arthritis in neck or jaw. Denies history of sleep apnea, loud snoring, or waking from sleep choking or gasping. Denies allergy to tape, iodine, or latex Able to walk up a flight of stairs or run across a street without needing to stop to catch breath Pt has a known cardiac history, with Afib; on elaquis No history of alcohol withdrawal; not a regular, heavy drinker. Chronic Medical Conditions: Problem List[1] Allergies: Allergies[2] Pt states he has not had a reaction to contrast dye. Review of Systems Constitutional: Positive for unexpected weight change. Negative for activity change, appetite change, chills, diaphoresis, fatigue and fever. Unexpected gain weight HENT: Negative. Eyes: Negative. Respiratory: Positive for shortness of breath. Negative for cough, chest tightness, wheezing and stridor. Going up stairs; has to sit down occasionally when climbing stairs. No pain / chest tightness when climbing stairs. Cardiovascular: Positive for leg swelling. Negative for chest pain and palpitations. Gastrointestinal: Negative for abdominal pain, anal bleeding, blood in stool, constipation, diarrhea, nausea and vomiting. Pt states he was told during his last hospital visit that the pain / cold feeling he feels in the center of his chest is a gastric ulcer. Pt was a given a medication, which takes away this feeling; he's unsure what the medication is. Endocrine: Negative. Genitourinary: Positive for flank pain and urgency. Negative for difficulty urinating, dysuria, hematuria, penile discharge and testicular pain. Seeing renal doctor; saw him 2 weeks ago for CVA pain; pt states doctor told him everything is alright and will see him in 3 months. Musculoskeletal: Positive for gait problem. Negative for arthralgias, back pain, neck pain and neckstiffness. Has cane Skin: Negative. Allergic/Immunologic: Positive for food allergies. Negative for environmental allergies and immunocompromised state. Neurological: Positive for dizziness, light-headedness and headaches. Negative for seizures, facialasymmetry, weakness and numbness. Endorses dizziness in am after taking BP medication; this feeling passes within minutes. Occasional headaches; takes Tylenol - that stops the headache. Hematological: Negative. Does not bruise/bleed easily. Psychiatric/Behavioral: Positive for agitation. Negative for confusion. The patient is not nervous/anxious. OBJECTIVE Visit Vitals Smoking Status Former 08/26/2024 11:39 AM 09/09/2024 12:00 PM 09/09/2024 12:08 PM 11/29/2024 10:52 AM 12/15/2024 9:59 AM 02/22/2025 8:52 AM 03/11/2025 10:32 AM Vitals Systolic 158 118 124 139 130 127 120 Diastolic 108 75 78 89 90 83 78 Heart Rate 68 81 77 88 90 Temp 97 ??F (36.1 ??C) 95.9 ??F (35.5 ??C) 98.3 ??F (36.8 ??C) 98 ??F (36.7 ??C) Resp 16 16 16 18 16 Height (in) 5' 6.7 (1.694 m) 5' 6.7 (1.694 m) Weight (lb) 217 216 217 213.8 BMI 34.29 kg/m2 34.14 kg/m2 34.29 kg/m2 33.79 kg/m2 BSA (m2) 2.15 m2 2.15 m2 2.15 m2 2.14 m2 Visit Report Report Report Report Report Report Physical Exam Constitutional: Appearance: Normal appearance. He is obese. HENT: Head: Normocephalic. Right Ear: Tympanic membrane, ear canal and external ear normal. Left Ear: Tympanic membrane, ear canal and external ear normal. Nose: Nose normal. Mouth/Throat: Mouth: Mucous membranes are moist. Pharynx: Oropharynx is clear. Eyes: General: No scleral icterus. Pupils: Pupils are equal, round, and reactive to light. Comments: Left eye ptosis since Neck: Vascular: No carotid bruit. Cardiovascular: Rate and Rhythm: Normal rate. Rhythm irregular. Pulses: Normal pulses. Pulmonary: Effort: Pulmonary effort is normal. Breath sounds: No wheezing or rhonchi. Chest: Chest wall: No tenderness. Abdominal: General: Bowel sounds are normal. Palpations: Abdomen is soft. There is no mass. Tenderness: There is no abdominal tenderness. There is no right CVA tenderness, left CVA tenderness, guarding or rebound. Hernia: A hernia is present. Musculoskeletal: General: Normal range of motion. Cervical back: Normal range of motion and neck supple. No rigidity or tenderness. Right lower leg: No edema. Left lower leg: No edema. Skin: General: Skin is warm. Capillary Refill: Capillary refill takes less than 2 seconds. Coloration: Skin is not jaundiced. Findings: Bruising present. Comments: Bruising on arms from blood draws Neurological: General: No focal deficit present. Mental Status: He is alert and oriented to person, place, and time. Gait: Gait normal. Comments: Walks with cane for 10 years baseline Psychiatric: Mood and Affect: Mood normal. Behavior: Behavior normal. PREOPERATIVE ASSESSMENT AND PLAN: -H&P completed -Medication list reviewed with patient and up to date. -The incidence of perioperative cardiovascular events varies according to the patient risk profile,patient's functional capacity, and risk of the proposed surgery. Active cardiac conditions that are contraindications to elective surgery: Surgery-Specific Cardiac Risk: medium High = anything that involves a vessel - even if it is in your hand Low = skin, eyes Intermediate = everything else Cardiac risk by patient profile (RCRI): Patient has 2 risk factors corresponding to 5.4%risk of a major cardiac event during surgery. Functional capacity = 3.3 METS. The patient reports being able to walk up 1 one flight of stairs and 2 blocks without stopping. This patient is at at baseline and not at risk for an medium risk procedure. The patient is at acceptable risk for the proposed procedure. Reviewed with patient that no surgery is completely free of risk and this evaluation is to assist surgeon in accurately reviewing informed consent. Revised Cardiac Risk Index: No risk factors - 0.4% (95% CI 0.1-0.8) 1 risk factor - 1.0% (95% CI 0.5-1.4) 2 risk factors - 2.4% (95% CI 1.3-3.5) 3 or more risk factors - 5.4% (95% CI 2.8-7.9) Preop examination: - Preoperative evaluation for left rotator cuff surgery scheduled for April 06, 2025. - Ordered preoperative laboratory tests. Reviewed EKG. Cleared for surgery pending lab results. Left shoulder pain and upcoming rotator cuff surgery: - Persistent left shoulder pain, scheduled for rotator cuff repair. - Proceed with planned rotator cuff surgery on April 06, 2025. Lower extremity edema: - Intermittent lower extremity edema, managed with daily compression therapy. - Continue daily compression therapy as instructed by cardiology. Dizziness, especially in the morning: - Dizziness associated with antihypertensive medication, occurring primarily in the morning. - Monitor symptoms. Continue current antihypertensive regimen. Headaches: - Intermittent headaches, relieved by acetaminophen. - Continue acetaminophen as needed for headache relief. Allergy to kiwi: - Allergy to kiwi confirmed. Chronic kidney disease (follow-up with nephrology): - Chronic kidney disease under nephrology care, no acute issues reported. - Continue follow-up with nephrology as scheduled. Knee pain and gait instability: - Chronic knee pain requiring use of cane for ambulation. - Continue use of cane for stability. Medication Recs: -Pt consulted to be NPO at 12 pm the night before the procedure; take blood pressure medications the day of the procedure. Hold aspirin and NSAIDs 5 days before surgery; Stop Eliquis 48 hours before surgery. -Stop Metformin day of surgery. May restart day after the surgery unless directed differently by surgeon HHC AFFIRMATIVE ACTION OFFICER Attestation AFFIRMATIVE ACTION OFFICER Resident Attestation: Patient was seen and evaluated by Abhishek OHARA, in collaboration with Gemini Chung MD who has reviewed my assessment and plan. I, Gemini Chung MD , have reviewed the resident's note and agree with the assessment &plan of care as documented above. This note was drafted using Ambient (AI) technology. The patient/patient's guardian has been informed and has consented to the use of this technology: Yes [1] Patient Active Problem List Diagnosis Aching headache Acquired hypothyroidism Anxiety state Atrial fibrillation ([facility]/HCC) ([facility]) Chronic obstructive lung disease (HCC) Chronic systolic heart failure ([facility]) Coronary atherosclerosis Dyspnea on exertion Hypertension History of alcohol abuse Mood disorder (CMS/HCC) Ptosis of eyelid Pure hypercholesterolemia Rupture of quadriceps tendon Simple renal cyst Sleep apnea Steatohepatitis Vascular insufficiency Pain in right toe(s) Vertigo Hoarseness, persistent Venous stasis Venous insufficiency of lower extremity Needle exposure COPD with asthma (CMS/HCC) ([facility]) Preop examination Polyarthralgia Weight gain Prediabetes Mixed stress and urge urinary incontinence Atrial fibrillation with RVR ([facility]) ([facility]) Colon cancer screening Class 2 severe obesity due to excess calories with serious comorbidity and body mass index (BMI) of38.0 to 38.9 in adult Class 1 obesity due to excess calories with serious comorbidity and body mass index (BMI) of 33.0 to 33.9 in adult Benign prostatic hyperplasia (BPH) with straining on urination Stage 3 chronic kidney disease ([facility]/HCC) ([facility]) Precordial pain Chronic left shoulder pain Class 1 obesity due to excess calories with serious comorbidity and body mass index (BMI) of 34.0 to 34.9 in adult Acute reactive otitis externa of both ears [2] Allergies Allergen Reactions Iodinated Contrast Media Hives Kiwi Extract documented in this encounter Plan of Treatment Upcoming Encounters Date Type Department Care Team (Late st Contact Info) Description 03/23/2025 11:15 AM EST Office Visit [facility] [address] [place] [address] Gemini Chavez MD [address] [place], [place] [phone] Scheduled Orders Name Type Priority Associated Diagnoses Orde r Schedule CBC auto differential Lab Routine Preop examination Expected: 03/11/2025 (Approximate), Expires: 03/11/2026 Comprehensive Metabolic Panel Lab Routine Preop examination Expected: 03/11/2025 (Approximate), Expires: 03/11/2026 ECG 12 lead ECG Routine Preop examination Ordered: 03/11/2025 ECG 12 lead ECG Routine Preop examination Ordered: 03/11/2025 documented as of this encounter Visit Diagnoses Diagnosis Chronic systolic heart failure (HCC)- Primary Chronic systolic heart failure Preop examination Unspecified pre-operative examination Primary hypertension Unspecified essential hypertension documented in this encounter Additional Health Concerns Assessment Noted Time PHQ-9 Depression Total Score: 0 11/30/19 25 10:53 AM EDT documented as of this encounter Care Teams Assistant Manager Of Operations Relationship Specialty Start Date End Date Gemini Chavez MD [address] [place] [id number] PCP - General Family Medicine 01/21/18 [employer] 03/28/24 documented as of this encounter
[2025-03-11 13:14] LABS: MANUAL DIFF FLAG NO
--- OUTSIDE RECORDS SUMMARY | 2025-03-11 13:16 | XMS_ITS | Encounter Summary ---
Author Organization [employer] Address 75 [facility] 7t [place] [address] Care Team Providers Care Sales Support Representative Name Role Phone Gemini Chavez MD Primary Care Provide r Reason for Visit * Reason Comments Med Change Request Encounter Details Date Type Department Care Team (Late st Contact Info) Description 02/04/2023 Refill [facility] MED & PEDS [address] [place], [place] [phone] Marsha Menjivar MD [address] [place] [address] Primary hypertension Social History Tobacco Use Types [...] Office Visit [facility] MEDICINE [address] [place] [address] Gemini Chavez MD [address] [place] [phone] documented as of this encounter Visit Diagnoses Diagnosis Primary hypertension Unspecified essential hypertension documented in this encounter Additional Health Concerns Assessment Noted Time PHQ-9 Depression Total Score: 6 05/16/19 23 1:42 PM EST documented as of this encounter Care Teams Sales Support Representative Relationship Specialty Start Date End Date Gemini Chavez MD [address] [place] [id number] PCP - General Family Medicine 01/21/18 [employer] 03/28/24 documented as of this encounter
--- OUTSIDE RECORDS SUMMARY | 2025-03-11 13:16 | XMS_ITS | Encounter Summary ---
Author Organization [employer] Address 75 [facility] 7t [place] [address] Care Team Providers Care Postpartum Rn Name Role Phone Gemini Chavez MD Primary Care Provide r Reason for Visit * Reason Comments Med Refill Encounter Details Date Type Department Care Team ([facility] st Contact Info) Description 05/14/2024 Refill [facility] MEDICINE [address] [place], [place] [phone] Gemini Chavez MD [address] [place], [place] [phone] Class 1 obesity due to excess calories [...] 03/23/2025 11:15 AM EST Office Visit [facility] MEDICINE [address] [place] [phone] Gemini Chavez MD [address] [place] [phone] documented as of this encounter Visit Diagnoses Diagnosis Class 1 obesity due to excess calories with serious comorbidity and body mass index (BMI) of 33.0 to 33.9 in adult documented in this encounter Additional Health Concerns Assessment Noted Time PHQ-9 Depression Total Score: 0 09/03/19 9:55 AM EDT documented as of this encounter Care Teams Postpartum Rn Relationship Specialty Start Date End Date Gemini Chavez MD [address] [place] [id number] PCP - General Family Medicine 01/21/18 [employer] 03/28/24 documented as of this encounter
--- OUTSIDE RECORDS SUMMARY | 2025-03-11 13:16 | XMS_ITS | Encounter Summary ---
Author Organization [employer] [facility] Address [address] [facility] 7t [place] [address] Care Team Providers Care Statistical Developer Name Role Phone Gemini Chavez MD Primary Care Provide r Reason for Visit * Reason Comments Med Refill Encounter Details Date Type Department Care Team (Late Contact Info) Description 06/21/[address] [facility] MEDICINE [address] [place] [phone] Marsha Menjivar MD [address] [place], [place] [phone] Chronic systolic heart failure (CMS/HCC) Social History [...] [facility] MEDICINE [address] [place] [phone] Gemini Chavez MD [address] [place] [address] documented as of this encounter Visit Diagnoses Diagnosis Chronic systolic heart failure (HCC) Chronic systolic heart failure documented in this encounter Additional Health Concerns Assessment Noted Time PHQ-9 Depression Total Score: 6 05/16/19 23 1:42 PM EST documented as of this encounter Care Teams Statistical Developer Relationship Specialty Start Date End Date Gemini Chavez MD [address] [place] [address] PCP - General Family Medicine 01/21/18 [employer] 03/28/24 documented as of this encounter
--- OUTSIDE RECORDS SUMMARY | 2025-03-11 13:16 | XMS_ITS | Encounter Summary ---
Author Organization [employer] Address [address] [facility] 7t [place] [address] Care Team Providers Care Sand Mill Grinder Name Role Phone Gemini Chavez MD Primary Care Provide r Reason for Visit * Reason Onset Date Comments Appointment Request 08/21/2022 Encounter Details Date Type Department Care Team ([facility] st Contact Info) Description 08/21/2022 Telephone [facility] MEDICINE [address] [place], [place] [phone] Gemini Chavez MD [address] [place] [address] Appointment Request Social History Tobacco Use Types [...] an family emergency. Please contact pt at [phone] documented in this encounter Plan of Treatment Upcoming Encounters Date Type Department Care Team (Late st Contact Info) Description 03/23/2025 11:15 AM EST Office Visit [facility]INE [address] [place] [address] Gemini Chavez MD [address] [place] [address] documented as of this encounter Visit Diagnoses Not on filedocumented in this encounter Additional Health Concerns Assessment Noted Time PHQ-9 Depression Total Score: 6 05/16/19 23 1:42 PM EST documented as of this encounter Care Teams Sand Mill Grinder Relationship Specialty Start Date End Date Gemini Chavez MD [address] [place] [id number] PCP - General Family Medicine 01/21/18 [employer] 03/28/24 documented as of this encounter
--- OUTSIDE RECORDS SUMMARY | 2025-03-11 13:16 | XMS_ITS | Clinical Summary ---
Author Organization [address] [facility] Address [address] [place] [address] Phone Care Team Providers Care Carpet Mechanic Name Role Phone Gemini Chavez MD [...] BLOOD SUGAR ONCE DAILY 5 Active [employer] Lite monitoring kit USE TO TEST BLOOD [...] PM EDT Office Visit Orthopedic Surgery - [address] [phone] Gallito Hancock, DPM Dermatophytosis of [...] PM EST Office Visit Orthopedic Surgery - [place] [address] [place] [phone] Gallito Hancock, REBECCA [address] [place] [phone] Health Maintenance Due Date Last Done [...] complete this topic Insurance MEDICA[place] - [place] [facility] Member Subscriber Plan / Payer (Ef fective 2022-Present) Name:Min Daily Relation to Subscriber:Self Name:Min Daily Payer ID:[id number] Group ID:[id number] Type:Not on file Address: [address] [place] [address] Care Teams Carpet Mechanic Relationship Specialty Start Date End Date Gemini Chavez MD [address] [place] [phone] [facility] - General 04/24/23
--- OUTSIDE RECORDS SUMMARY | 2025-03-11 13:16 | XMS_ITS | Encounter Summary ---
Author Organization [employer] Address 75 [facility] 7t [place] [address] Care Team Providers Care Home Extension Agent Name Role Phone Gemini Chavez MD Primary Care Provide r Reason for Visit * Reason Onset Date Comments Referral 03/14/2023 Encounter Details Date Type Department Care Team ([facility] st Contact Info) Description 03/14/2023 Telephone [facility] MEDICINE [address] [place], [place] [phone] Gemini Chavez MD [address] [place], [place] [phone] Referral Social History Tobacco Use Types Packs/Day [...] t he electric, gas, oil or water [employer] threatened to shut off services in your [...] 03/23/2025 11:15 AM EST Office Visit [facility] MEDICINE [address] [place] [address] Gemini Chavez MD [address] [place] [address] documented as of this encounter Visit Diagnoses Not on filedocumented in this encounter Additional Health Concerns Assessment Noted Time PHQ-9 Depression Total Score: 6 05/16/19 23 1:42 PM EST documented as of this encounter Care Teams Home Extension Agent Relationship Specialty Start Date End Date Gemini Chavez MD [address] [place] [address] PCP - General Family Medicine 01/21/18 [employer] 03/28/24 documented as of this encounter
--- OUTSIDE RECORDS SUMMARY | 2025-03-11 13:16 | XMS_ITS | Encounter Summary ---
Author Organization [employer] Address 75 [facility] 7t [place] [address] Care Team Providers Care Installment Agent Name Role Phone Geimni Chavez MD Primary Care Provide r Encounter Details Date Type Department Care Team (Late st Contact Info) Description 07/10/2023 Orders Only [facility] MEDICINE [address] [place], [place] [phone] Gemini Chavez MD [address] [place], [place] [phone] Mixed stress and urge urinary incontinence (Primary [...] t he electric, gas, oil or water [employer] threatened to shut off services in your [...] Visit [facility] MEDICINE [address] [place] [phone] Gemini Chavez MD [address] [place] [phone] documented as of this encounter Visit Diagnoses Diagnosis Mixed stress and urge urinary incontinence- Primary Mixed incontinence urge and stress (male)(female) documented in this encounter Additional Health Concerns Assessment Noted Time PHQ-9 Depression Total Score: 6 05/16/19 23 1:42 PM EST documented as of this encounter Care Teams Installment Agent Relationship Specialty Start Date End Date Gemini Chavez MD [address] [place] [id number] PCP - General Family Medicine 01/21/18 [employer] 03/28/24 documented as of this encounter
--- OUTSIDE RECORDS SUMMARY | 2025-03-11 13:16 | XMS_ITS | Encounter Summary ---
Author Organization [employer] Address [address] [facility] 7t [place] [address] Care Team Providers Care Astronomy Instructor Name Role Phone Gemini Chavez MD Primary Care Provide r Reason for Visit * Reason Onset Date Comments Nurse Triage 03/26/2023 Encounter Details Date Type Department Care Team ([facility] st Contact Info) Description 03/26/2023 Telephone [facility] [address] [place], [place] [phone] Gemini Chavez MD [address] [place] [address] Nurse Triage Social History Tobacco Use Types [...] 03/26/2023 11:47 AM EST Triage call with [place] [employer] [id number] Pt reports ingrown toenail great toe on left foot for 3 days now. Pt reports it is painful and causes some limping when ambulating. Pt denies redness, drainage. Pt requests a referral to twist tester which was very helpful last time this happened. Pt is advised will send this request to PCP and nursing team for follow up and Pt agreed. Pt declined to come to [facility] only wants twist tester to cut this toenail. Protocol Used: [...] accepted this outcome Please contact pt at [phone] (jail keeper needed) documented in this encounter Plan of Treatment Upcoming Encounters Date Type Department Care Team ([facility] st Contact Info) Description 03/23/2025 11:15 AM EST Office Visit [facility] [address] [place] [phone] Gemini Chavez MD [address] [place], [place] [phone] documented as of this encounter Visit Diagnoses Not on filedocumented in this encounter Additional Health Concerns Assessment Noted Time PHQ-9 Depression Total Score: 6 05/16/19 23 1:42 PM EST documented as of this encounter Care Teams Astronomy Instructor Relationship Specialty Start Date End Date Gemini Chavez MD [address] [place], [place] [phone] PCP - General Family Medicine 01/21/18 [employer] 03/28/24 documented as of this encounter
--- OUTSIDE RECORDS SUMMARY | 2025-03-11 13:16 | XMS_ITS | Encounter Summary ---
Author Organization [facility] Address [address] [facility] [facility] [address] [place] [address] Phone Care Team Providers Care Charge Master Coordinator Name Role Phone Curt Richey MD Primary Care Provider + Encounter Details Date Type Department Care Team (Latest Contact Info) Description 12/24/2019 Ancillary [facility] [address] [place] [address] [place] [address] Curt Richey MD [address] [place] [address] [email or web address] Atrial fibrillation, unspecified type Social History Tobacco [...] type documented in this encounter Care Teams Charge Master Coordinator Relationship Specialty Start Date End Date Curt Richey MD [email or web address] PCP - General Cardiology 12/21/19 documented as of this encounter Additional Source Comments The information contained in this document represents components of the legal health record. It is not the complete legal health record.[facility]
--- OUTSIDE RECORDS SUMMARY | 2025-03-11 13:16 | XMS_ITS | Clinical Summary ---
Author Organization [facility] Address [address] [place] [address] Phone Care Team Providers Care Business Continuity Global Director Name Role Phone Curt Richey MD Primary [...] Medical Devices Not on file Insurance [address] [place] [id number] [facility] ONE CARE MEDICARE REPLACEMENT [employer] MEDICARE REPLACEMENT MEDICARE REPLACEMENT CARE MEDICARE REPLACEMENT [place] [address] ONE CARE MEDICARE REPLACEMENT Care Teams Business Continuity Global Director Relationship Specialty Start Date End Date Curt Richey MD PCP - General Cardiology 12/21/19 Additional Source Comments The information contained in this document represents components of the legal health record. It is not the complete legal health record.[facility]
--- OUTSIDE RECORDS SUMMARY | 2025-03-11 13:16 | XMS_ITS | Encounter Summary ---
Author Organization [employer] Address [address] [facility] 7t [place] [address] Care Team Providers Care Commercial Census Taker Name Role Phone Gemini Chavez MD Primary Care Provide r Reason for Visit * Reason Onset Date Comments Chart Prep 03/10/2025 Encounter Details Date Type Department Care Team ([facility] st Contact Info) Description 03/10/2025 Telephone [facility] [address] [place], [place] [phone] Gemini Chavez MD [address] [place] [address] Chart Prep Social History Tobacco Use Types Packs/Day Years [...] Telephone Encounter - Candida Castro [place] - 03/10/2025 9:19 AM EDT Chart Prep Labs: done Images: done Referrals: Booked for OrthoSur Vaccines due: Covid, Hep B, Hep A, and Zoster Screenings: colonoscopy Overdue care gaps: Oral health screening, Disability screen, and Tobacco Date of Surgery: 04-06-2025 Surgical procedure being done: left shoulder surgery possible rotator Type of anesthesia: local anesthesia Lab needed: Yes EKG: Yes Surgeon's name: Romero Ahumada MD Facility name: [facility] Surgeon's office number: [phone] Surgeon's office fax number: [phone] Contact name: Grisel documented in this encounter Plan of Treatment Upcoming Encounters Date Type Department Care Team ([facility] st Contact Info) Description 03/23/2025 11:15 AM EST Office Visit [facility] [address] [place] [address] Gemini Chavez MD [address] [place] [address] documented as of this encounter Visit Diagnoses Not on filedocumented in this encounter Additional Health Concerns Assessment Noted Time PHQ-9 Depression Total Score: 0 11/30/19 25 10:53 AM EDT documented as of this encounter Care Teams Commercial Census Taker Relationship Specialty Start Date End Date Gemini Chavez MD [address] [place] [address] PCP - General Family Medicine 01/21/18 [email or web address] 03/28/24 documented as of this encounter
--- OUTSIDE RECORDS SUMMARY | 2025-03-11 13:16 | XMS_ITS | Encounter Summary ---
Author Organization [employer] Address [address] [facility] 7t [place] [address] Care Team Providers Care Petroleum Inspector Supervisor Name Role Phone Gemini Chavez MD Primary Care Provide r Reason for Visit * Reason Comments Med Refill Encounter Details Date Type Department Care Team ([facility] st Contact Info) Description 02/12/2024 Refill [facility] 230 [place], [place] [phone] Gemini Chavez MD [address] [place] [address] Prediabetes Social History Tobacco Use Types Packs/Day [...] 11:15 AM EST Office Visit [facility] [address] [place] [address] Gemini Chavez MD [address] [place] [address] documented as of this encounter Visit Diagnoses Diagnosis Prediabetes Other abnormal glucose documented in this encounter Additional Health Concerns Assessment Noted Time PHQ-9 Depression Total Score: 0 09/03/19 24 9:55 AM EDT documented as of this encounter Care Teams Petroleum Inspector Supervisor Relationship Specialty Start Date End Date Gemini Chavez MD [address] [place] [address] PCP - General Family Medicine 01/21/18 [employer] 03/28/24 documented as of this encounter
--- OUTSIDE RECORDS SUMMARY | 2025-03-11 13:16 | XMS_ITS | Encounter Summary ---
Author Organization [employer] Address [address] [facility] 7t [place] [address] Care Team Providers Care Cobol Programmer Name Role Phone Gemini Chavez MD Primary Care Provide r Reason for Visit * Reason Comments Med Change Request Encounter Details Date Type Department Care Team (Late Contact Info) Description 01/08/2023 Refill [facility] [address] [place], [place] [phone] Marsha Menjivar MD 230 [place] [address] Chronic obstructive pulmonary disease, unspecified COPD type (CMS/[facility]) Social History Tobacco Use Types [...] for Nebulizer signed and faxed to [facility] documented in this encounter Plan of Treatment Upcoming Encounters Date Type Department Care Team (Late st Contact Info) Description 03/23/2025 11:15 AM EST Office Visit [facility] [address] [place] [address] Gemini Chavez MD [address] [place] [address] documented as of this encounter Visit Diagnoses Diagnosis Chronic obstructive pulmonary disease, unspecified COPD type (CMS/HCC) ([facility]) documented in this encounter Additional Health Concerns Assessment Noted Time PHQ-9 Depression Total Score: 6 05/16/19 23 1:42 PM EST documented as of this encounter Care Teams Cobol Programmer Relationship Specialty Start Date End Date Gemini Chavez MD [address] [place] [address] PCP - General Family Medicine 01/21/18 [employer] 03/28/24 documented as of this encounter
--- OUTSIDE RECORDS SUMMARY | 2025-03-11 13:16 | XMS_ITS | Encounter Summary ---
Author Organization [facility] Address [address] [place] [address] Phone Care Team Providers Care Associate Professor Of Chemistry Name Role Phone Curt Richey MD Primary Care Provider + Encounter Details Date Type Department Care Team (Late st Contact Info) Description 12/24/2019 Ancillary Orders [facility] [address] [facility] 3rd Floor, [address] [place] [address] Curt Richey MD 50 [place] [address] Social History Tobacco Use Types Packs/Day Years [...] on filedocumented in this encounter Care Teams Associate Professor Of Chemistry Relationship Specialty Start Date End Date Curt Richey MD PCP - General Cardiology 12/21/19 documented as of this encounter Additional Source Comments The information contained in this document represents components of the legal health record. It is not the complete legal health record.[facility]
--- OUTSIDE RECORDS SUMMARY | 2025-03-11 13:16 | XMS_ITS | Encounter Summary ---
Author Organization [employer] Address [address] [facility] 7t [place] [address] Care Team Providers Care Cake Wringer Name Role Phone Gemini Chavez MD Primary Care Provide r Reason for Visit * Reason Comments Med Refill Encounter Details Date Type Department Care Team ([facility] st Contact Info) Description 02/12/2024 Refill [facility] 230 [place], [place] [phone] Gemini Chavez MD 230 [place] [address] Prediabetes Social History Tobacco Use Types Packs/Day [...] Office Visit [facility] MEDICINE [address] [place] [address] Gemini Chavez MD [address] [place] [address] documented as of this encounter Visit Diagnoses Diagnosis Prediabetes Other abnormal glucose documented in this encounter Additional Health Concerns Assessment Noted Time PHQ-9 Depression Total Score: 0 09/03/19 24 9:55 AM EDT documented as of this encounter Care Teams Cake Wringer Relationship Specialty Start Date End Date Gemini Chavez MD [address] [place] [address] PCP - General Family Medicine 01/21/18 [employer] 03/28/24 documented as of this encounter
--- OUTSIDE RECORDS SUMMARY | 2025-03-11 13:16 | XMS_ITS | Encounter Summary ---
Author Organization [employer] Address [address] [facility] 7t [place] [address] Care Team Providers Care Package Dyer Name Role Phone Gemini Chavez MD Primary Care Provide r Encounter Details Date Type Department Care Team (Late st Contact Info) Description 02/19/2023 Abstract [facility] 230 [place], [place] [phone] Gemini Chavez MD [address] [place], [place] [phone] Social History Tobacco Use Types Packs/Day Years [...] 03/23/2025 11:15 AM EST Office Visit [facility] [address] [place] [address] Gemini Chavez MD [address] [place] [address] documented as of this encounter Visit Diagnoses Not on filedocumented in this encounter Additional Health Concerns Assessment Noted Time PHQ-9 Depression Total Score: 6 05/16/19 23 1:42 PM EST documented as of this encounter Care Teams Package Dyer Relationship Specialty Start Date End Date Gemini Chavez MD [address] [place] [address] PCP - General Family Medicine 01/21/18 [employer] 03/28/24 documented as of this encounter
--- OUTSIDE RECORDS SUMMARY | 2025-03-11 13:16 | XMS_ITS | Patient Health Record ---
Author Organization [facility] Address [address] [place] [address] Care Team Providers Care Rib Puller Name Role Phone Gemini Fisher M.D. Primary Care Provider Larry Angeles Jr Unavailable Cipriano Murphy MD Unavailable Unavailable Allergies No Known Allergies Reason For Referral No Information Medications Medication SIG (Take, Route, Frequency, Duration) Notes Start Date End Date Status Creon [id number] UNIT TOME 2 C PSULAS POR V [...] Status W/U Status Risk Notes Problem Dysphagia (83271533) Dysphagia (R13.10) Active confirmed Problem Dysphagia (80265066) Dysphagia, unspecified type (R13.10) Active confirmed Problem Barium swallow abnormal (252718200) Abnormal barium swallow (R93.3) Active confirmed Problem Gastroesophageal reflux disease (307353950) Gastroesophageal reflux disease, unspecified whether esophagitis present (K21.9) Active confirmed Problem Presbyesophagus (798113110) Presbyesophagus (K22.89) Active confirmed Plan Of Treatment Future Test Test Name Order Date UPPER GI ENDOSCOPY 03/13/2023 Insurance Providers Payer Name Payer Address Payer Phone Subscriber Number Group Number Insured Name Patient Relationship to Insured Coverage Start Date Coverage End Date [facility] [address] Attn Claims CLIFF Perez [id number] KOBE DAILY Self - patient is the insured Medical (General) History Medical History History ICD Code CE/COPD hypertension Fatty liver pulmonary nodule Elevated BMI Atrial fibrillation Hypothyroidism Gastroesophageal reflux disease/dysphagi a Surgical History Surgery Date(Month/Year) Cataract surgery Umbilical hernia repair Tonsillectomy
--- OUTSIDE RECORDS SUMMARY | 2025-03-11 13:16 | XMS_ITS | Encounter Summary ---
Author Organization [employer] [facility] Address [address] [facility] 7t [place] [address] Care Team Providers Care Family Welfare Social Work Professor Name Role Phone Gemini Chavez MD Primary Care Provide r Reason for Visit * Reason Comments Med Refill Encounter Details Date Type Department Care Team (Late st Contact Info) Description 10/07/2022 Refill [facility] 230 [place], [place] [phone] Gemini Chavez MD 230 [place], [place] [phone] Chronic systolic heart failure (CMS/HCC) Social History [...] 03/23/2025 11:15 AM EST Office Visit [facility] 230 [place], [place] [phone] Gemini Chavez MD [address] [place] [address] documented as of this encounter Visit Diagnoses Diagnosis Chronic systolic heart failure (HCC) Chronic systolic heart failure documented in this encounter Additional Health Concerns Assessment Noted Time PHQ-9 Depression Total Score: 6 05/16/19 23 1:42 PM EST documented as of this encounter Care Teams Family Welfare Social Work Professor Relationship Specialty Start Date End Date Gemini Chavez MD [address] [place] [address] PCP - General Family Medicine 01/21/18 [employer] 03/28/24 documented as of this encounter
--- OUTSIDE RECORDS SUMMARY | 2025-03-11 13:16 | XMS_ITS | Encounter Summary ---
Author Organization [employer] Address [address] [facility] 7t [place] [address] Care Team Providers Care Gymnastic Coach Name Role Phone Gemini Chavez MD Primary Care Provide r Reason for Visit * Reason Comments Med Refill Encounter Details Date Type Department Care Team ([facility] st Contact Info) Description 03/03/2024 Refill [facility] 230 [place], [place] [phone] Gemini Chavez MD 230 [place], [place] [phone] Social History Tobacco Use Types Packs/Day Years [...] AM EST Office Visit [facility] [address] [place] [address] Gemini Chavez MD [address] [place] [address] documented as of this encounter Visit Diagnoses Not on filedocumented in this encounter Additional Health Concerns Assessment Noted Time PHQ-9 Depression Total Score: 0 09/03/19 24 9:55 AM EDT documented as of this encounter Care Teams Gymnastic Coach Relationship Specialty Start Date End Date Gemini Chavez MD [address] [place] [address] PCP - General Family Medicine 01/21/18 [email or web address] 03/28/24 documented as of this encounter
--- OUTSIDE RECORDS SUMMARY | 2025-03-11 13:16 | XMS_ITS | Clinical Summary ---
Author Organization [employer] Address [address] [place] [address] 7t [place] [address] Care Team Providers Care Teradata Architect Name Role Phone Gemini Chavez MD [...] ANAPHYLAXIS AND CALL [phone] Active Creon 95999-135425 units capsule delayed-release particles capsule Take 2 capsules by mouth 4 times daily. ADMINISTER WITH MEALS AND/OR SNACKS 2022 Active Fluticasone-Salmetero l 250-50 MCG/ACT aerosol powder Inhale 1 puff 2 times daily. 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 -on day of surgery can take BB and levothyroxine with a sip of water and to hold rest of meds -nurse staff to fax this note to surgeon COPD with asthma ([facility]) 01/22/2023 Assessment & Plan (11/29/2024 [...] renal cyst 06/23/2012 Steatohepatitis 06/23/2012 Atrial fibrillation ([facility]/HCC) 12/12/2011 Assessment & Plan (05/19/2023 2:03 [...] Encounters Date Type Department Care Team Description 03/11/2025 10:30 AM EDT Office Visit [facility] [address] [place] [phone] Chronic systolic heart failure (HCC) (Primary Dx); Preop examination; Primary hypertension 03/11/[address] [address] Gemini Chavez MD 03/11/2025 Travel 03/10/2025 Telephone [facility] [address] [place], [place] [phone] Gemini Chavez MD Chart Prep 03/06/2025 Refill [facility] [address] [place] [address] Gemini Chavez MD 03/03/[address] [address] Gemini Chavez MD Transition Of Care (Tcm) 03/03/2025 Orders Only GENERIC EXTERNAL DATA DEPARTMENT Provider, Generic External Data 02/28/[address] [address] Gemini Chavez MD Pre-op appt 02/22/2025 8:40 AM EDT Office Visit [facility] [address] [place] [phone] Christal Edmonds MD Acute exacerbation of COPD with asthma (CMS/HCC) (HCC) (Primary Dx); Cough in adult 02/22/2025 Travel 02/21/2025 Telephone [facility] [address] [place] [address] Gemini Chavez MD Nurse Triage; ER Follow-up 02/21/2025 Orders Only GENERIC EXTERNAL DATA DEPARTMENT Provider, Generic External Data 02/18/2025 Orders Only [facility] External Provider, [facility] 02/16/2025 Telephone [facility] [address] [place] [address] Gemini Chavez MD Nurse Triage 02/15/2025 Orders Only [facility] External Provider, [facility] 02/11/2025 Refill [facility] [address] [place] [address] Gemini Chavez MD Hypertension, unspecified type 02/04/2025 Refill [facility] [address] [place] [address] Gemini Chavez MD Acquired hypothyroidism 02/03/2025 Telephone [facility] [address] [place] [address] Gemini Chavez MD Fyi 02/02/2025 Orders Only GENERIC EXTERNAL DATA DEPARTMENT Provider, Generic External Data 01/31/2025 Patient Outreach [facility] [address] [place] [address] Gemini Chavez MD Care Coordination (A Agency) 01/28/2025 Refill [facility] [address] [place] [address] Gemini Chavez MD 01/27/2025 Refill [facility] [address] [place] [address] Gemini Chavez MD Acquired hypothyroidism 01/20/2025 Orders Only GENERIC EXTERNAL DATA DEPARTMENT Provider, Generic External Data 01/18/2025 Telephone [facility] [address] [place] [address] Gemini Chavez MD NOV RECALL 12/22/2024 Telephone [facility] [address] [place] [address] Gemini Chavez MD Hypotension 12/16/2024 Refill [facility] [address] [place] [address] Gemini Chavez MD Pure hypercholesterolemia 12/15/2024 10:30 AM EDT Office Visit [facility] [address] [place] [address] Jessica Ho NP Chronic left shoulder pain (Primary Dx); Acute reactive otitis externa of both ears 12/15/2024 Telephone [facility] [address] [place] [address] Gemini Chavez MD telephone call 12/15/2024 Travel 12/14/2024 Telephone [facility] [address] [place] [address] Gemini Chavez MD Nurse Triage 12/11/2024 Orders Only [facility] External Provider, [facility] from Last 3 Months Immunizations Immunization Administration [...] oz) 03/11/2025 10:32 A M EDT Height 169.4 cm (5' 6.7 ) 12/15/2024 9:59 AM EDT Body Mass Index 33.79 12/15/2024 9:59 AM EDT Plan of Treatment Upcoming Encounters Date Type Department Care Team (Late st Contact Info) Description 03/23/2025 11:15 AM EST Office Visit [facility] [address] [place] [address] Gemini Chavez MD [address] [place] [address] Health Maintenance Due Date Last Done Comments [...] exists SDOH Screening 11/29/2025 11/29/2024 Tobacco Screening 03/11/2026 03/11/2025 Lipid Panel 05/03/2029 05/03/2024, 01/0 01/2024, 12/13/2022, [...] AM EDT Narrative 03/03/2025 6:15 AM EDT [address] [address] [address] Scan Report Signed Patient: Min Rees MR#: [id number] : 1955 Acct:[id number] Age/Sex: 69 / M ADM Date: 03/03/25 Loc: HO.ED Attending Dr: Ordering Physician: Eleuterio Jenkins MD Date of Service: 03/03/25 Procedure(s): CT angio abdomen pelvis Accession Number(s): [id number] cc: Gemini Chavez MD; Eleuterio Jenkins MD Report Number: [id number]: Total DLP = 0.00 mGy-cm Reason for [...] Normal appendix. No fluid collections or adenopathy. [place] in the right lower quadrant. No acute [...] in OV> 03/03/25613 DD/ 2 TD/TT: 03/03/25612 Compliance And Control Analyst: Procedure Note Donotuseinterpreter, Image - 03/03/[address] [place] [address] [address] Scan Report Signed Patient: Min Rees#: [id number] : 1955cct:[id number] Age/Sex: 69 / MADM Date: 03/03/25 Loc: HO.ED Attending Dr: Ordering Physician: Eleuterio Jenkins MD Date of Service: 03/03/25 Procedure(s): CT angio abdomen pelvis Accession Number(s): [id number] cc: Gemini Chavez MD; Eleuterio Jenkins MD Report Number: [id number]: Total DLP = 0.00 mGy-cm Reason for [...] Normal appendix. No fluid collections or adenopathy. [place] in the right lower quadrant. No acute [...] in OV> 03/03/25613 DD/ 2 TD/TT: 03/03/25612 Compliance And Control Analyst: [facility] External Provider IMG CT PROCEDURES Edited Result - Final * CTA Chest w/ and w/o Contrast (03/03/2025 6:13 AM EDT) Anatomical Region Laterality Modality Body, Chest Computed Tomogra phy 03/03/2025 6:13 AM EDT Narrative 03/03/2025 6:14 AM EDT [address] [address] [address] Scan Report Signed Patient: Min Rees MR#: [id number] : 1955 Acct:[id number] Age/Sex: 69 / M ADM Date: 03/03/25 Loc: HO.ED Attending Dr: Ordering Physician: Eleuterio Jenkins MD Date of Service: 03/03/25 Procedure(s): CT angio chest aorta Accession Number(s): [id number] cc: Gemini Chavez MD; Eleuterio Jenkins MD Report Number: [id number]: Total DLP = 936.00 mGy-cm Reason for [...] Normal appendix. No fluid collections or adenopathy. [place] in the right lower quadrant. No acute [...] in OV> 03/03/25612 DD/ 2 TD/TT: 03/03/25612 Compliance And Control Analyst: Procedure Note Donotuseinterpreter, Image - 03/03/[address] [address] [address] Scan Report Signed Patient: Mini Rees#: [id number] : 6Acct:[id number] Age/Sex: 69 / MADM Date: 03/03/25 Loc: HO.ED Attending Dr: Ordering Physician: Eleuterio Jenkins MD Date of Service: 03/03/25 Procedure(s): CT angio chest aorta Accession Number(s): [id number] cc: Gemini Chavez MD; Eleuterio Jenkins MD Report Number: [id number]: Total DLP = 936.00 mGy-cm Reason for [...] Normal appendix. No fluid collections or adenopathy. [place] in the right lower quadrant. No acute [...] in OV> 03/03/25612 DD/ 2 TD/TT: 03/03/25612 Compliance And Control Analyst: [facility] External Provider IMG CT PROCEDURES Edited Result - Final * High Sensitivity Troponin I (03/03/2025 5:22 AM EDT) Only the most recent of2 resultswithin the time period is included. [facility] TROPONIN I HIGH SENSITIVITY 11.3 <3.5 - 35.0 ng/L [facility] Comment:The Ham high sens itivity Troponin-I results should beused in conjunction with other diagnostic information suchas ECG, clinical observations and information, and patientsymptoms to aid in the diagnosis of NV. 03/03/2025 5:22 AM EDT 03/03/2025 5:25 AM EDT Generic External Data Provider LAB BLOOD ORDERAB LES Final Result Performing Organization Address [facility]/ZIP Co de Phone Number [facility] [address] [place] [phone] * (ABNORMAL) Lactic Acid (03/03/2025 5:22 AM EDT) [facility] Lactic Acid 2.1(HH) 0.5 - 2.0 mmol/L [facility] Comment:Critical value for t est(s): LACTIC ACID Results called toand read back by:MASON Person calling: NEGRA Date:03/03/25 Time:0556 03/03/2025 5:22 AM EDT 03/03/2025 5:25 AM EDT Generic External Data Provider LAB BLOOD ORDERAB LES Final Result Performing Organization Address City/[facility] Co de Phone Number [facility] [address] [place] [phone] * Influenza B (ID NOW Rapid Molecular) (02/22/2025 9:09 AM EDT) [facility] Influenza B Negative Negative, Indeterminate [facility] Swab 02/22/2025 9:09 AM EDT Christal Edmonds MD POINT OF CARE TEST ENTER/EDIT ORDERABLES Final Result [facility] [address] [place] [address] [phone] * Influenza A (ID NOW Rapid Molecular) (02/22/2025 9:09 AM EDT) [facility] Influenza A Negative Negative, Indeterminate [facility] Swab 02/22/2025 9:09 AM EDT Christal Edmonds MD POINT OF CARE TEST ENTER/EDIT ORDERABLES Final Result Performing Organization Address [facility] Co de Phone Number [facility] [address] [place] [phone] * POCT rapid strep A manually resulted (02/22/2025 9:09 AM EDT) [facility] Rapid Strep A Screen Negative Negative, None Detected Swab 02/22/2025 9:09 AM EDT Christal Edmonds MD POINT OF CARE TEST ENTER/EDIT ORDERABLES Final Result * POCT Rapid COVID Ag (02/22/2025 8:55 AM EDT) [facility] Rapid COVID Ag Negative Swab 02/22/2025 8:55 AM EDT Christal Edmonds MD POINT OF CARE TEST ENTER/EDIT ORDERABLES Final Result * (ABNORMAL) Basic Metabolic Panel (02/21/2025 6:37 AM EDT) Only the most recent of2 resultswithin the time period is included. [facility] Sodium 144 135 - 145 mmol/L [facility] Potassium 3.4 3.3 - 5.1 mmol/L [facility] Chloride 105 96 - 108 mmol/L [facility] Carbon Dioxide 30(H) 22 - 29 mmol/L [facility] Anion Gap 12 12 - 20 [facility] Urea Nitrogen (BUN) 26(H) 9 - 16 mg/dL [facility] Creatinine, Serum 1.17 0.5 - 1.4 mg/dL [facility] Estimated Glomerular Filt Rate >60 [facility] Comment:Chronic Kidney Disea se: Estimated GFR < 60 mL/min/1.96v7Cddtmz Kidney Disease: Estimated GFR < 15 mL/min/1.73m2 Glucose 83 60 - 115 mg/dL [facility] Calcium 9.0 8.4 - 10.2 mg/dL [facility] 02/21/2025 6:37 AM EDT 02/21/2025 6:37 AM EDT us Generic External Data Provider LAB BLOOD ORDERAB LES Final Result Performing Organization Address City/State/[facility] Co de Phone Number [facility] [address] [place] [phone] * MR Shoulder w/o Contrast Left (02/18/2025 10:00 AM EDT) Anatomical Region Laterality Modality Upper Extremities, Shoulder Left Magn etic Resonance 02/18/2025 10:0 0 AM EDT Narrative 02/18/2025 12:15 PM EDT [address] [address] Magnetic Resonance Report Signed Patient: Min Rees MR#: [id number] : 1955 Acct:[id number] Age/Sex: 69 / M ADM Date: 02/18/25 Loc: HO.MRI Attending Dr: Mario Wild PA-C Ordering Physician: Mario Wild PA-C Date of Service: 02/18/25 Procedure(s): MR shoulder LT wo con Accession Number(s): [id number] cc: Gemini Chavez MD; Mario Wild PA-C [...] 02/18/25 1213 DD/ 1000 TD/TT: 02/18/25 1019 Compliance And Control Analyst: Procedure Note Donotuseinterpreter, Image - 02/18/[address] [address] Magnetic Resonance Report Signed Patient: Min ReesMR#: [id number] : 6Acct:[id number] Age/Sex: 69 / MADM Date: 02/18/25 Loc: HO.MRI Attending Dr: Mario Wild PA-C Ordering Physician: Mario Wild PA-C Date of Service: 02/18/25 Procedure(s): MR shoulder LT wo con Accession Number(s): [id number] cc: Gemini Chavez MD; Mario Wild PA-C [...] 02/18/25 1213 DD/ 1000 TD/TT: 02/18/25 1019 Compliance And Control Analyst: RHODA [facility] External Provider IMG MRI PROCEDURES Final Result * XR Chest 2 Views (02/15/2025 9:30 AM EDT) Anatomical Region Laterality Modality Chest Radiographic Claire ging 02/15/2025 9:30 AM EDT Narrative 02/15/2025 9:44 AM EDT [address] [address] XRay Report Signed Patient: Min Rees MR#: [id number] : 1955 Acct:[id number] Age/Sex: 69 / M ADM Date: 02/15/25 Loc: HO.ED Attending Dr: Ordering Physician: Tavia Garcia Date of Service: 02/15/25 Procedure(s): XR chest 2V Accession Number(s): [id number] cc: Gemini Chavez MD; Tavia Garcia Reason [...] No acute cardiopulmonary abnormality. Electronically signed by: Rsa Zhao MD 02/15/2025 09:41 AM EDT RP Dictated By: Ras Zhao MD Signed By: <Electronically signed by Ras Zhao MD in OV> 02/15/2541 DD/ 9 TD/TT: 02/15/25934 Compliance And Control Analyst: Procedure Note Donotuseinterpreter, Image - 02/15/[address] [address] XRay Report Signed Patient: Min ReesMR#: [id number] : 1955cct:[id number] Age/Sex: 69 / MADM Date: 02/15/25 Loc: HO.ED Attending Dr: Ordering Physician: Tavia Garcia Date of Service: 02/15/25 Procedure(s): XR chest 2V Accession Number(s): [id number] cc: Gemini Chavez MD; Tavia Garcia Reason [...] in OV> 02/15/2541 DD/ 9 TD/TT: 02/15/25934 Compliance And Control Analyst: [facility] External Provider IMG XR PROCEDURES Final Result * (ABNORMAL) Glucose, Whole Blood (02/02/2025 9:24 AM EDT) Glucose, Whole Blood 125(H) 60 - 115 mg/dL [facility] Comment:METER #: [id number] 02/02/2025 9:24 AM EDT 02/02/2025 9:28 AM EDT Generic External Data Provider LAB BLOOD ORDERAB LES Final Result [facility] [address] [place] [phone] * XR Shoulder 2+ Views Left (12/11/2024 9:05 AM EDT) Anatomical Region Laterality Modality Upper Extremities, Shoulder Left Radi ographic Imaging 12/11/2024 9:05 AM EDT Narrative 12/11/2024 9:06 AM EDT [address] [address] XRay Report Signed Patient: Min Rees MR#: [id number] : 1955 Acct:[id number] Age/Sex: 69 / M ADM Date: 12/11/24 Loc: HO.ED Attending Dr: Ordering Physician: Zenaida Zaragoza MD Date of Service: 12/11/24 Procedure(s): XR shoulder LT min 2V Accession Number(s): [id number] cc: Gemini Chavez MD; Zenaida Zaragoza MD [...] in OV> 12/11/24905 DD/ 4 TD/TT: 12/11/24904 Compliance And Control Analyst: Procedure Note Donotuseinterpreter, Image - 12/11/[address] [address] XRay Report Signed Patient: Min ReesMR#: [id number] : 1955cct:[id number] Age/Sex: 69 / MADM Date: 12/11/24 Loc: HO.ED Attending Dr: Ordering Physician: Zenaida Zaragoza MD Date of Service: 12/11/24 Procedure(s): XR shoulder LT min 2V Accession Number(s): [id number] cc: Gemini Chavez MD; Zenaida Zaragoza MD [...] in OV> 12/11/24905 DD/ 4 TD/TT: 12/11/24904 Compliance And Control Analyst: [facility] External Provider IMG XR PROCEDURES Edited [...] 5OO mg/dL Cholesterol 118 <200 mg/dL [facility] Comment:Desirable Cholestero l: less than 200 mg/dLBorderline High Cholesterol: 200-239 mg/dLHigh Cholesterol: greater than 239 mg/dL LDL Cholesterol Calculated 41 <100 mg/dL [facility] Comment:Desirable LDL: less than 100 mg/dLNear Optimal/Above Optimal LDL: 110- 129 mg/dLBorderline High LDL: 130-159 mg/dLHigh LDL: 160-189 mg/dLVery High LDL: greater than or equal to 190 mg/dL HDL Cholesterol 31(L) >40 mg/dL [facility] Comment:Desirable HDL: great er than 40 mg/dL Note: This HDL assay may give artificially low results in patients with liver disease. Blood Venous blood specimen / Unknown 05/03/2024 8:15 AM EST 05/03/2024 11:40 AM EST us Gemini Chung MD LAB BLOOD ORDERABLES Final Result [facility] [address] [place], [place] [phone] * Hm Colonoscopy (01/21/2024 10:19 AM [...] EDT) Hepatitis C Antibody Nonreactive Nonreactive [facility] Comment:Antibodies to HCV no t detected; does not exclude early acuteHCV infection. 12/13/2022 8:21 AM EDT 12/13/2022 11:08 AM EDT us Gemini Chung MD LAB BLOOD ORDERABLES Final Result Performing Organization Address [facility]/ZIP Co de Phone Number [facility] [address] [place], [place] [phone] from Last 3 Months or Most Recently Relevant to Health Maintenance Insurance [address] [place] [id number] [employer] (HMO D-SNP) [facility] STANDARD [address] [place] [phone] Care Teams Teradata Architect Relationship Specialty Start Date End Date Gemini Chavez MD [address] [place] [address] PCP - General Family Medicine 01/21/18 [employer] 03/28/24
--- OUTSIDE RECORDS SUMMARY | 2025-03-11 13:16 | XMS_ITS | Encounter Summary ---
Author Organization [facility] Address [address]t [place] [address] Care Team Providers Care Sales Vendor Name Role Phone Gemini Chavez MD Primary Care Provide r Encounter Details Date Type Department Care Team (Late st Contact Info) Description 01/22/2023 Orders Only [facility] [address] [place], [place] [phone] Gemini Chavez MD [address] [place], [place] [phone] COPD with asthma (CMS/HCC) Social History Tobacco [...] AM EST Office Visit [facility] [address] [place], [place] [phone] Gemini Chavez MD [address] [place], [place] [phone] documented as of this encounter Visit Diagnoses Diagnosis COPD with asthma (CMS/HCC) (HCC) documented in this encounter Additional Health Concerns Assessment Noted Time PHQ-9 Depression Total Score: 6 05/16/19 23 1:42 PM EST documented as of this encounter Care Teams Sales Vendor Relationship Specialty Start Date End Date Gemini Chavez MD [address] [place] [address] PCP - General Family Medicine 01/21/18 [employer] 03/28/24 documented as of this encounter
--- OUTSIDE RECORDS SUMMARY | 2025-03-11 13:16 | XMS_ITS | Encounter Summary ---
Author Organization [employer] Address [address] [facility] [address] [place] [address] Care Team Providers Care Online Facilitator Name Role Phone Gemini Chavez MD Primary Care Provide r Reason for Visit * Reason Onset Date Comments Prior Authorization 06/10/2024 Encounter Details Date Type Department Care Team ([facility] st Contact Info) Description 06/10/2024 Telephone [facility] [address] [place], [place] [phone] Gemini Chavez MD [address] [place] [address] Prior Authorization Social History Tobacco Use Types [...] is required on PA. Contact pt at [phone] (taiwanese) * Telephone Encounter - Rohit Cruz - 06/10/2024 9:00 AM EST Tc from pt requesting a PA for Tirzepatide-Weight Management (Zepbound) 2.5 MG/0.5ML solution auto-injector because pt stated that he received a letter stating that PA got denied. Contact pt: [phone] (Tuvaluan) documented in this encounter Plan of Treatment Upcoming Encounters Date Type Department Care Team (Late st Contact Info) Description 03/23/2025 11:15 AM EST Office Visit [facility] [address] [place], [place] [phone] Gemini Chavez MD [address] [place] [address] documented as of this encounter Visit Diagnoses Not on filedocumented in this encounter Additional Health Concerns Assessment Noted Time PHQ-9 Depression Total Score: 0 09/03/19 9:55 AM EDT documented as of this encounter Care Teams Online Facilitator Relationship Specialty Start Date End Date Gemini Chavez MD [address] [place] [address] PCP - General Family Medicine 01/21/18 [employer] 03/28/24 documented as of this encounter
--- OUTSIDE RECORDS SUMMARY | 2025-03-11 13:16 | XMS_ITS | Encounter Summary ---
Author Organization [employer] Address [address] [facility] [address] [place] [address] Care Team Providers Care Mammography Tech Name Role Phone Gemini Chavez MD Primary Care Provide r Reason for Visit * Reason Comments Med Refill Encounter Details Date Type Department Care Team (Late st Contact Info) Description 09/08/2022 Refill [facility] [address] [place], [place] [phone] Umer Sears MD [address] [place], [place] [phone] Seasonal allergies Social History Tobacco Use Types [...] Office Visit [facility] [address] [place], [place] [phone] Gemini Chavez MD [address] [place], [place] [phone] documented as of this encounter Visit Diagnoses Diagnosis Seasonal allergies Allergic rhinitis, cause unspecified documented in this encounter Additional Health Concerns Assessment Noted Time PHQ-9 Depression Total Score: 6 05/16/19 23 1:42 PM EST documented as of this encounter Care Teams Mammography Tech Relationship Specialty Start Date End Date Gemini Chavez MD [address] [place] [address] PCP - General Family Medicine 01/21/18 [employer] 03/28/24 documented as of this encounter
--- OUTSIDE RECORDS SUMMARY | 2025-03-11 13:17 | XMS_ITS | Data Portability ---
Author Organization [employer] [facility], [facility] Address [address] [place] [address] Care Team Providers Care Airplane Cabin Attendant Name Role Phone RONALDO RAZO Primary Care Provider HIM SUKH OTHER Assessment Encounter Date Assessment Date Assessment LastModified by Organization Details LastModified Time 04/21/2024 04/21/2024 I provided real -time medical direction via phone for this encounter and was available for additional phone-based assistance as needed. I have reviewed and agree with the Assessment and Plan as documented by the Transformer Mechanic. Patient given the opportunity to ask questions. [...] pressure. No change in functional status. Per stitching machine setter on the scene, vital signs are stable [...] Assessment and Plan as documented by the Transformer Mechanic. We discussed the diagnostic uncertainty of home [...] to call 911- verbalized understanding of instruction [email or web address] Not available 04/27/2024 20:25:46 09/27/2024 09/27/2024 Impression: [...] of any new or worsening serious symptoms [email or web address] Not available 09/27/2024 12:16:54 09/29/2024 09/29/2024 Impression: 68yo/m with pmhx as above presenting with 3-4 days of persistent respiratory symptoms. Patient states symptoms began 4 days ago, [facility] Evaluation at that time was [...] of any new or worsening serious symptoms [email or web address] Not available 09/29/2024 15:23:11 10/01/2024 10/01/2024 I provided real -time medical direction via phone for this encounter, and was available for additional phone based assistance as needed. I have reviewed and agree with the Assessment and Plan as documented by the Transformer Mechanic. We discussed the diagnostic uncertainty of home visits and the risk associated with this.. The patient given the opportunity to ask questions. [email or web address] Not available 10/01/2024 21:44:54 Plan of Treatment Reminders Order Date Submit Date Provider Last Modified By Organization Details Last Modified Time Details Appointments None recorded. Lab BMP, serum or plasma 2024 025 [facility], [address] [place] [address], [id number] 20:26:25 rapid SARS CoV 2 Ag, QL IA, respiratory specimen [address], [address] 13:07:32 rapid flu (A+B) 2024 025 [facility], [address] [place] [address], [address] 5 13:15:39 rapid SARS CoV 2 Ag, QL IA, respiratory specimen 2023 024 [email or web address] 0 [facility], [address] [place] [address], [address] 4 20:24:15 rapid flu (A+B) 2023 024 [email or web address] 0 [facility], [address] [place] [address], [address] 4 20:24:15 BMP, serum or plasma 2023 024 [email or web address] 0 [facility], [address] [place] [address], [address] 4 20:24:15 rapid flu (A+B) 2023 024 [email or web address] [facility], [address] [place] [address], [address] 4 10:38:31 rapid SARS CoV 2 Ag, QL IA, respiratory specimen 2023 024 [email or web address] [facility], [address] [place] [address], [address] [place] [address] 4 10:38:31 Referral None recorded. Procedures None recorded. Surgeries None recorded. Imaging electrocard iogram 2024 025 [facility], [address] [place] [address], [address] 5 21:51:19 electrocard iogram 2023 024 [email or web address] 0 [facility], [address] [place] [address], [address] 4 20:24:15 Medication Orders ipratropium 0.5 mg-albutero l 3 mg (2.5 mg base)/3 mL nebulizatio n soln 2024 025 [email or web address] 0 [facility]acy #2071, [address] [place], [address], 5 13:35:51 ipratropium 0.5 mg-albutero l 3 mg (2.5 mg base)/3 mL nebulizatio n soln 2024 025 [email or web address] 84 [facility]/Pharmacy #2071, [address] [place], [address], 5 15:23:32 amoxicillin 875 mg-potassiu m clavulanate 125 mg tablet 2024 025 [facility]/Pharmacy #2071, [address] [place], [address], 5 15:23:55 prednisone 20 mg tablet 2024 025 [facility] [address] [place] [address], [address], 5 12:07:58 ipratropium 0.5 mg-albutero l 3 mg (2.5 mg base)/3 mL nebulizatio n soln 2024 025 [email or web address] 84 [facility]/Pharmacy #2071, [address] [place], [address], 5 12:07:56 albuterol sulfate 2.5 mg/3 mL (0.083 %) solution for nebulizatio n 2024 025 [facility]/Pharmacy #2071, [address] [place], [address], 5 12:07:59 fluticasone propionate 50 mcg/actuati on nasal spray,suspe nsion 2023 024 [facility]/Pharmacy #2071, [address] [place], [address], 4 12:56:56 Saline Nasal 0.65 % spray aerosol 2023 024 [facility], [address] [place], [address], 4 12:56:56 amoxicillin 500 mg capsule 2023 024 [facility]armacy #2071, [address] [place], [address], 4 12:56:55 sodium chloride 0.9 % intravenous solution 2023 024 [email or web address] 0 [facility]/Pharmacy #2071, [address] [place], [address], 4 20:24:15 prednisone 20 mg tablet 2023 024 [facility] [address] [place], [address], 4 10:38:33 prednisone 20 mg tablet 2023 [email or web address] [facility] [address] [place], [address], 4 10:38:31 Patient TargetsNo targets recorded. Patient [...] ve Not Available [facility] [address] [place] [address], [address] 04/21/2024 10:37:26 04/21/20 24 04/21/2024 rapid flu (A+B) Flu negati ve Not Available [facility] [address] [place] [address], [address] 04/21/2024 10:37:25 04/27/20 24 04/27/2024 rapid flu (A+B) Flu negati ve Not Available [facility] [address] [place] [address], [address] 04/27/2024 12:57:09 04/27/20 24 04/27/2024 rapid SARS CoV 2 Ag, QL IA, respi rator y speci men rapid SARS CoV 2 Ag, QL IA, respiratory specimen negati ve Not Available [facility] ed [address] [place] [address], [address] 04/27/2024 12:57:08 09/28/19 25 09/27/2024 rapid flu (A+B) Flu negati ve Not Available [facility] ed [address] [place] [address], [address] 09/27/2024 12:06:07 09/28/19 25 09/27/2024 rapid SARS CoV 2 Ag, QL IA, respi rator y speci men rapid SARS CoV 2 Ag, QL IA, respiratory specimen negati ve Not Available [facility] ed [address] [place] [address], [address] 09/27/2024 12:06:06 03/31/20 24 03/31/2024 elect rocar diogr am No observ ation record ed. [email or web address] [facility] - [address], [address] 03/31/2024 18:36:06 04/27/20 24 04/27/2024 elect rocar diogr am No observ ation record ed. [email or web address] [facility] - [address], [address] 04/27/2024 20:22:51 10/02/19 25 10/01/2024 elect rocar diogr am No observ ation record ed. [email or web address] [address], [address] 10/01/2024 20:26:07 Result Notes None recorded. Medical Equipment None Reported. Allergies Allergen ID Allergen Name Allergen Category Reaction Reaction Severity Criticality Documentation Date Start Date Code Code System Note Provider Name and Address Organization Details Recorded Time 07126 Iodinated contrast media (substanc e) medicatio n Not available Not available Not available 09/29/2024 44167 2003 SNOMED Not Available [facility] - production [...] Available Not Available N ot Available FreeStyle [place] Lite kit USE TO TEST BLOOD SUGAR [...] % 97 % 150/90 mm[Hg] Not Available [employer] 15:07:54 Date Recorded Body height Body mass index (BMI) Body weight Provider Name and Address Organization Details Last Updated DateTime 10/01/2024 162.56 cm 36 kg/m2 02454.4 g Davina Garner MD [address] [place] [address],[address] [place], [address], [place] 10/01/2024 13:25:45 Date Recorded Oxygen saturation Oxygen saturation in Arterial blood by Pulse oximetry Heart rate Body temperature Respiratory rate Systolic And Diastolic Provider Name and Address Organization Details Last Updated DateTime 97 % 97 % 76 /min 97.6 [degF] 20 /min 118/60 mm[Hg] Not Available [employer] 13:23:31 Date Recorded Body height Body mass index (BMI) Body weight Provider Name and Address Organization Details Last Updated DateTime 04/27/2024 162.56 cm 33.5 kg/m2 76504.51 g Davina Garner MD [address] [place] [address],[address] [place] [address], [address] 04/27/2024 20:03:55 Date Recorded Oxygen saturation Oxygen saturation in Arterial blood by Pulse oximetry Body temperature Respiratory rate Heart rate Systolic And Diastolic Provider Name and Address Organization Details Last Updated DateTime 98 % 98 % 98.1 [degF] 20 /min 95 /min 150/100 mm[Hg] Not Available [employer] 11:24:31 Social History None recorded. Functional Status None recorded. Mental Status None recorded. Family History Nothing Reported. Medical History No medical history recorded. Past Encounters Encounter ID Performer Location Encounter Start Date Encounter Closed Date Diagnosis/Indication Diagnosis SNOMED-CT Code Diagnosis ICD10 Code Diagnosis IMO Codes Diagnosis Note [id number] [facility] [address] [place] [address] 04/11/2022 18:32:13 04/15/2022 15:46:34 Cough 54576579 R05.9 [id number] Davina Garner MD [facility] [address] [place] [address] 01/07/2023 14:14:00 01/07/2023 22:56:53 Essential hypertension 50645746 I10 Patient exam is benign. Patient reassured/ his blood pressure is normal when taken with the medic cough. The medic measured the patient's blood pressure with his 5-year-old home machine and got 135/112 thus it is the patient's machine that is giving erroneous readingsNo te sent to [facility] to reach out to the adult care manager to assist the patient in obtaining a new home blood pressure monitor. Advised to continue all his regular medication s and follow-up with his PCP as needed [id number] Davina Garner MD [facility] [address] [place] [id number] 01/08/2023 15:21:28 01/08/2023 23:59:09 Viral upper respiratory tract infection 818508420 J06.9 And viral pharyngiti s-advised to gargle [...] pcp. Sandra Bloom MD [facility] [address] [place] [id number] 06/23/2023 18:11:30 06/24/2023 10:34:59 Dizziness 370668680 R42 [id number] Marlyn Casas MD [facility] [address] [place] [address] 08/05/2023 10:57:00 08/05/2023 16:00:41 Asthma 618425215 J45.909 Exacerbati on of moderate persistent asthma 740085318 J45.41 [id number] Eric Israel MD [facility] [address] [place] [id number] 08/13/2023 12:51:38 08/13/2023 20:11:05 Acute exacerbation of chronic obstructive pulmonary disease 783589209 J44.1 The patient has a flare-up of his COPD. He will continue his current treatments . [id number] Eric Israel MD [facility] [address] [place] [phone] 11/14/2023 12:02:23 11/14/2023 21:31:15 Vertigo 870080106 R42 This 67-year-ol d male with a past history of vertigo developed mild vertigo today. He has taken Meclizine in the past with good relief. I ordered Meclizine 50 mg now. He will follow-up with his PCP if the vertigo persists. The patient agreed with this plan. [id number] Thomas Lyon MD [facility] [address] [place] [id number] 11/27/2023 21:44:10 11/28/2023 10:18:17 Headache 63519602 R51.9 [id number] Jeancarlos Gonsales MD [facility] - [address] [address] 03/20/2024 14:41:13 03/22/2024 13:41:42 Orthostatic hypotension 62288075 I95.1 Atrial fibrillation 4943 6004 I48.91 [id number] HAN MARIE MD [facility] [address] [place] [phone] 03/31/2024 18:19:08 04/01/2024 11:10:35 Dizziness 862190616 R42 Evaluation in the field was performed by my stitching machine setter colleague, as noted above, I provided real-time [...] , palpitatio ns or any other concerns. [id number] Marlyn Casas MD [facility] [address] [place] [id number] 04/21/2024 10:14:37 04/22/2024 00:16:20 Asthma-chronic obstructive pulmonary disease overlap syndrome 8590628710 5305279 J44.9 Viral uppe r respiratory tract infection 592563811 J06.9 [id number] Davina Garner MD [facility] [address] [place] [phone] 04/27/2024 11:24:18 04/27/2024 22:19:18 Headache 46317434 R51.9 w/ dizziness- possibly sinusitisS lightly less [...] Tylenol max 3500 mg/day based on weight. [id number] Bladimir Ureña MD [facility] [address] [place] [id number] 09/27/2024 11:58:02 09/27/2024 18:16:19 Viral upper respiratory tract infection 197072029 J06.9 241493 Acute exac erbation of chronic obstructive pulmonary disease 725483994 J44.1 957525 [id number] Bladimir Ureña MD [facility] [address] [place] [phone] 09/29/2024 15:07:52 09/29/2024 18:34:43 Persistent cough 455461264 R05.3 735856 [id number] Davina Garner MD [facility] [address] [place] [id number] 10/01/2024 13:23:27 10/02/2024 14:08:40 Dyspnea 407686400 R06.02 70975 EKG reveals A-fib at 90 with biphasic [...] is agreeable. He request to go to [facility]. Report called to [facility] ED staff. Health Concerns Section Related Observation LastModified by Organization Detai ls LastModified Time None Recorded Concern Status LastModified by Organization Details LastModified Time None Recorded Advance Directives Directive None Recorded Payers Insurance Date Sequence Insurance Name Policy Number Policy Young Covered Member ID Young Member ID Guarantor Name 03/31/2024 1 [facility] - DOS PRIOR TO 2022 - DUAL ELIGIBLE (MEDICARE REPLACEMENT/AD VANTAGE - HMO) Min Davonte [id number] Min Arauz 09/27/2024 1 [facility] - DOS ON OR AFTER 2022 - DUAL ELIGIBLE - [facility] OPTIONS AND ONE CARE (MEDICARE REPLACEMENT/AD VANTAGE - HMO) Min Davonte [id number] Min Davonte Notes Date Note Type Note [...] morning. Patient would like to be re-evaluated. Transformer Mechanic Organization Information for Cheikh Mejia Legal Name: [employer]. Address: [address] [place] [address], Hollock Maker: Parish Ruiz MD CLIA No.: [id number] Transformer Mechanic POC Test Results from Cheikh Mejia CHRIS [...] ...................... ...................... ...................... ...................... ...................... ...................... ......... Transformer Mechanic Note From Cheikh Mejia: Dispatched for the scheduled visit for the male patient with a headache. pt. was found alert and oriented x3 sitting in bed c/o of a severe headache from yesterday with dizziness upon sitting up. pt. noted he had been seen by community health on the but could not remember [...] in all extremities -dcaptbtls -stroke scale findings. [facility] contacted and ordered COVID and FLU swab, BMP and orthostatic vital signs while sitting and standing in addition. 21 gauge butterfly LAC performed for BMP. all results forwarded and [facility] then ordered a 12 lead ekg and IV with 750 ml Normal Saline. IV established 18 gauge left forearm-normal saline IV drip 750 ml. all results forwarded to [facility] with changed after normal saline. [facility] noted she would send amoxicillin and Fluticasone and saline nasal spray to the patients pharmacy for possible nasal infection. red flag warnings discussed and noted to call 911 if headache or dizziness worsened any slurred speech, weakness, facial droop or syncope occurred. all times are approx.report completed by rob mejia. [facility] Lab Orders: rapid SARS CoV 2 Ag, QL IA, respiratory specimen: Performed ...................... ...................... ...................... ...................... ...................... ...................... ......... [facility] Consulted: Davina Garner ...................... ...................... ...................... ...................... ...................... ...................... ......... Disposition: FulfilledSEGMD: letty seen by [facility] on 04/21 and diagnosed with COPD exacerbation [...] [facility],[address], [place], [address], [place] 04/27/2024 20:33:33 09/27/2024 text/html ROS as noted [...] seek emergency care. Jamie Del Rosario RN Transformer Mechanic Organization Information for Brendan Howe Business Legal Name: [employer]. Address: [address] [place] [address], Hollock Maker: Parish CAUSEY No.: [id number] Transformer Mechanic POC Test Results from Brendan Howe Rapid influenza antigen (11:55:06) Flu: - Attachments uploaded as part of this test result can be found under Documents section. Rapid COVID antigen (11:55:07) COVID: - Attachments uploaded as part of this test result can be found under Documents section. ...................... ...................... ...................... ...................... ...................... ...................... ......... Transformer Mechanic Note From Brendan Howe: Pt seen for [...] Covid & flu A/B POC all negative. [facility] contacted and advised of Pt complaint, presentation and exam findings. [facility] orders Duoneb updraft and will send prescription for PO Prednisone to Pt's pharmacy, Pt allergies confirmed. [facility] orders for Pt to use his home nebulizer tx Q4-6 hrs. Duoneb administered. Pt advised of all [facility] tx plan and recommendations. Pt understanding and agreeable to this. Pt has no further questions or concerns. Call closed. [facility] Lab Orders: rapid SARS CoV 2 Ag, QL IA, respiratory specimen: Performed rapid flu (A+B): Performed [facility] Medication Orders: ipratropium 0.5 mg-albuterol 3 mg (2.5 mg base)/3 mL nebulization soln: Administered ...................... ...................... ...................... ...................... ...................... ...................... ......... [facility] Consulted: Bladimir Ureña ...................... ...................... ...................... ...................... ...................... ...................... ......... Disposition: Fulfilled Bladimir Ureña MD [address] [place] [address],[address], [place], [address], [place] 09/27/2024 12:32:54 09/29/2024 text/html ROS as noted in the HPI HPI: No maintenance engineer oil field needed as this keno writer speaks Gambian. Call returned to Min Cano via [employer] as this keno writer is remote to triage below. Reports [...] ...................... ...................... ...................... ...................... ...................... ...................... ......... Transformer Mechanic Note From Romero Tony: SC12 dispatched to address listed above for the report of a male democrat with breathing issues. Arrival on scene, patient [...] Patient advised that he was visited by [facility] over 09/27 for same complaints, tested [...] etc. Patient vital signs obtained as noted. [facility] consulted, provided orders for a Duoneb treatment, advised he would send prescription for antibiotics to patient preferred pharmacy. Above DuoNeb treatment (3mg Albuterol and 0.5mg Ipratropium [place]) was administered without incident with reported improvement, six patient rights verified prior. Patient reported that he was feeling much better after nebulizer treatment, advised that he felt okay staying home. Patient advised to continue taking his nebulizer up to 4 times a day per [facility], Prednisone, and Antibiotics when he picks it up. Red flags were discussed with patient, advised to call 911 if he begins to experience life threatening symptoms. SC12 Clear. [facility] Medication Orders: ipratropium 0.5 mg-albuterol 3 mg (2.5 mg base)/3 mL nebulization soln: Administered ...................... ...................... ...................... ...................... ...................... ...................... ......... [facility] Consulted: Bladimir Ureña ...................... ...................... ...................... ...................... ...................... ...................... ......... Disposition: Fulfilled Bladimir Ureña MD [address] [facility],[address], [place], [address], [place] 09/29/2024 17:30:47 10/01/2024 text/html ROS as noted in the HPI HPI: 68 y.o male complains of Breathing ProblemsDee from [facility] reporting patient is having SOB and reports difficulty with his asthma. Patient is Gambian speaking primarily, maintenance engineer oil field# [phone] used for triage assessment. Patient reports he [...] DisorderPMH Reviewed at 10/01/202416Allergies Reviewed at 10/01/2024:16 Transformer Mechanic Organization Information for Romero Tony Legal Name: [employer]. Address: [address] [place] [address], Hollock Maker: Parish Ruiz MD [place] No.: [id number] Transformer Mechanic POC Test Results from Romero Tony iSTAT [...] ...................... ...................... ...................... ...................... ...................... ...................... ......... Transformer Mechanic Note From Romero Tony: SC12 dispatched to the address listed above for the report of a male democrat with shortness of breath. Arrival on scene, [...] reports that he has been visited by [facility] 2 separate times over the past week, prescribed Prednisone which he has been taking for 4 days and Augmentin which he has only been taking for a day. Patient reports symptoms management with Albuterol Nebulizer up to 4 times a day, last nebulizer about [address] [facility] arrival with reported improvement. Patient reports he begins to feel short of breath again within 20 minutes of finishing nebulizer treatment. Patient vital signs obtained as noted. [facility] consulted, provided orders for DuoNeb treatment, BMP, and 12 lead EKG. DuoNeb treatment administered with 3mg Albuterol/0.5mg Atrovent with reported improvement, six patient rights verified, [facility] noted patient began to experience labored breathing again shortly after finishing DuoNeb Treatment. Blood draw completed via 21 gauge butterfly needle in right forearm, removed at end of blood draw. ISTAT BMP performed as noted and uploaded to [facility]. 12 Lead EKG performed, uploaded to [facility] for remote interpretation. [facility] consulted again, recommended that patient go to the ED for imaging which patient agreed to. 911 called for patient, Maric[facility] arrival on scene shortly after. Patient report given to [facility] and care was transferred. EMS assisted as needed until transport initiated. SC12 Clear. [facility] Lab Orders: BMP, serum or plasma: Performed [facility] Medication Orders: ipratropium 0.5 mg-albuterol 3 mg (2.5 mg base)/3 mL nebulization soln: Administered ...................... ...................... ...................... ...................... ...................... ...................... ......... [facility] Consulted: Davina Garner ...................... ...................... ...................... ...................... [...] No productive cough. Davina Garner MD [address] [facility],[address], [place], [address], GUSTABO - Percolate, JANICE 10/01/2024 21:50:38
--- OUTSIDE RECORDS SUMMARY | 2025-03-11 13:17 | XMS_ITS | Encounter Summary ---
Author Organization [employer] Address 75 [facility] 7t [place] [address] Care Team Providers Care High Scaler Name Role Phone Gemini Chavez MD Primary Care Provide r Reason for Visit * Reason Comments Med Refill Encounter Details Date Type Department Care Team ([facility] st Contact Info) Description 10/16/2024 Refill [facility] [address] [place], [place] [phone] Gemini Chavez MD 230 [place] [address] Prediabetes Social History Tobacco Use Types Packs/Day [...] Description 03/23/2025 11:15 AM EST Office Visit [facility] [address] [place] [phone] Gemini Chavez MD [address] [place] [address] documented as of this encounter Visit Diagnoses Diagnosis Prediabetes Other abnormal glucose documented in this encounter Additional Health Concerns Assessment Noted Time PHQ-9 Depression Total Score: 0 09/03/19 24 9:55 AM EDT documented as of this encounter Care Teams High Scaler Relationship Specialty Start Date End Date Gemini Chavez MD [address] [place] [address] PCP - General Family Medicine 01/21/18 [place] [employer] 03/28/24 documented as of this encounter
--- OUTSIDE RECORDS SUMMARY | 2025-03-11 13:17 | XMS_ITS | Encounter Summary ---
Author Organization [employer] Address 75 [facility] 7t [place] [address] Care Team Providers Care Business Systems Manager Name Role Phone Gemini Chavez MD Primary Care Provide r Encounter Details Date Type Department Care Team (Late st Contact Info) Description 06/18/2024 Orders Only [facility] [address] [place], [place] [phone] Gemini Chavez MD [address] [place], [place] [phone] Social History Tobacco Use Types Packs/Day Years [...] Description 03/23/2025 11:15 AM EST Office Visit [facility] [address] [place] [address] Gemini Chavez MD [address] [place] [address] documented as of this encounter Visit Diagnoses Not on filedocumented in this encounter Additional Health Concerns Assessment Noted Time PHQ-9 Depression Total Score: 0 09/03/19 9:55 AM EDT documented as of this encounter Care Teams Business Systems Manager Relationship Specialty Start Date End Date Gemini Chavez MD [address] [place] [phone] PCP - General Family Medicine 01/21/18 [employer] 03/28/24 documented as of this encounter
--- OUTSIDE RECORDS SUMMARY | 2025-03-11 13:17 | XMS_ITS | Encounter Summary ---
Author Organization [employer] Address 75 [facility] 7t [place] [address] Care Team Providers Care Rope Machine Setter Name Role Phone Gemini Chavez MD Primary Care Provide r Reason for Visit * Reason Comments Med Refill Encounter Details Date Type Department Care Team ([facility] st Contact Info) Description 05/08/2024 Refill [facility] 230 [place], [place] [phone] Gemini Chavez MD 230 [place] [address] Class 1 obesity due to excess calories [...] [facility] [address] [place] [phone] Gemini Chavez MD 230 [place] [address] documented as of this encounter Visit Diagnoses Diagnosis Class 1 obesity due to excess calories with serious comorbidity and body mass index (BMI) of 33.0 to 33.9 in adult documented in this encounter Additional Health Concerns Assessment Noted Time PHQ-9 Depression Total Score: 0 09/03/19 24 9:55 AM EDT documented as of this encounter Care Teams Rope Machine Setter Relationship Specialty Start Date End Date Gemini Chavez MD [address] [place] [address] PCP - General Family Medicine 01/21/18 [employer] 03/28/24 documented as of this encounter
--- OUTSIDE RECORDS SUMMARY | 2025-03-11 13:17 | XMS_ITS | Encounter Summary ---
Author Organization [employer] Address 75 [facility] 7t [place] [address] Care Team Providers Care Billing Auditor Name Role Phone Gemini Chavez MD Primary Care Provide r Reason for Visit * Reason Comments Med Refill Encounter Details Date Type Department Care Team (Late st Contact Info) Description 10/20/2023 Refill [facility] [address] [place], [place] [phone] Gemini Chavez MD 230 [facility] [place] [address] Seasonal allergies Social History Tobacco Use Types [...] EST Office Visit [facility] [address] [place] [phone] Gemini Chavez MD [address] [place] [phone] documented as of this encounter Visit Diagnoses Diagnosis Seasonal allergies Allergic rhinitis, cause unspecified documented in this encounter Additional Health Concerns Assessment Noted Time PHQ-9 Depression Total Score: 0 09/03/19 9:55 AM EDT documented as of this encounter Care Teams Billing Auditor Relationship Specialty Start Date End Date Gemini Chavez MD [address] [place] [address] PCP - General Family Medicine 01/21/18 [employer] 03/28/24 documented as of this encounter
--- OUTSIDE RECORDS SUMMARY | 2025-03-11 13:17 | XMS_ITS | Encounter Summary ---
Author Organization [id number] Address 75 [facility] 7t [place] [address] Care Team Providers Care Subway Train Driver Name Role Phone Gemini Chavez MD Primary Care Provide r Encounter Details Date Type Department Care Team (Late st Contact Info) Description 03/11/2025 Telephone [facility] MED[facility]INE 230 [place], [place] [phone] Gemini Chavez MD [address] [place], [place] [phone] Social History Tobacco Use Types Packs/Day Years [...] encounter Miscellaneous Notes * Telephone Encounter - Cally Tejeda RN - 03/11/2025 9:30 AM EDT T/C to [facility] Ortho per request of pcp who requests that BMP, CBC with diff and EKG be completed for pre-op clearance. PCP updated. documented in this encounter Plan of Treatment Upcoming Encounters Date Type Department Care Team (Late st Contact Info) Description 03/23/2025 11:15 AM EST Office Visit [facility] [address] [place] [address] Gemini Chavez MD [address] [place] [address] documented as of this encounter Visit Diagnoses Not on filedocumented in this encounter Additional Health Concerns Assessment Noted Time PHQ-9 Depression Total Score: 0 11/30/19 25 10:53 AM EDT documented as of this encounter Care Teams Subway Train Driver Relationship Specialty Start Date End Date Gemini Chavez MD [address] [place] [phone] PCP - General Family Medicine 01/21/18 [employer] 03/28/24 documented as of this encounter
--- OUTSIDE RECORDS SUMMARY | 2025-03-11 13:17 | XMS_ITS | Encounter Summary ---
Author Organization [employer] Address 75 [facility] 7t [place] [address] Care Team Providers Care Spragger Name Role Phone Gemini Chavez MD Primary Care Provide r Encounter Details Date Type Department Care Team (Latest Contact Info) Description 03/11/2025 Travel Social History Tobacco Use Types Packs/Day [...] Description 03/23/2025 11:15 AM EST Office Visit [facility] MED[facility]INE 230 [place] [address] Gemini Chavez MD 230 [place] [address] documented as of this encounter Visit Diagnoses Not on filedocumented in this encounter Additional Health Concerns Assessment Noted Time PHQ-9 Depression Total Score: 0 11/30/19 25 10:53 AM EDT documented as of this encounter Care Teams Spragger Relationship Specialty Start Date End Date Gemini Chavez MD 230 [place] [address] PCP - General Family Medicine 01/21/18 [employer] 03/28/24 documented as of this encounter
--- OUTSIDE RECORDS SUMMARY | 2025-03-11 13:17 | XMS_ITS | Encounter Summary ---
Author Organization [employer] Address 75 [facility] 7t [place] [address] Care Team Providers Care Assistant Director Of Public Works Name Role Phone Gemini Chavez MD Primary Care Provide r Encounter Details Date Type Department Care Team (Late st Contact Info) Description 05/10/2024 Orders Only [facility] MEDICINE 230 [place], [place] [phone] Gemini Chavez MD 230 [place], [place] [phone] Stage 3 chronic kidney disease, unspecified whether [...] 11:15 AM EST Office Visit [facility] MED[facility]INE [address] [place] [address] Gemini Chavez MD [address] [place] [phone] documented as of this encounter Visit Diagnoses Diagnosis Stage 3 chronic kidney disease, unspecified whether stage 3a or 3b CKD (CMS/HCC) ([facility])- Primary Class 2 severe obesity due to excess calories with serious comorbidity and body mass index (BMI) of 38.0 to 38.9 in adult documented in this encounter Additional Health Concerns Assessment Noted Time PHQ-9 Depression Total Score: 0 09/03/19 9:55 AM EDT documented as of this encounter Care Teams Assistant Director Of Public Works Relationship Specialty Start Date End Date Gemini Chavez MD [address] [place] [address] PCP - General Family Medicine 01/21/18 [employer] 03/28/24 documented as of this encounter
--- OUTSIDE RECORDS SUMMARY | 2025-03-11 13:17 | XMS_ITS | Encounter Summary ---
Author Organization [employer] Address 75 [facility] 7t [place] [address] Care Team Providers Care Manager Storage Name Role Phone Gemini Chavez MD Primary Care Provide r Reason for Visit * Reason Comments Med Refill Encounter Details Date Type Department Care Team ([facility] st Contact Info) Description 03/06/2025 Refill [facility] 230 [place], [place] [phone] Gemini Chavez MD 230 [place], [place] [phone] Social History Tobacco Use Types Packs/Day Years [...] Office Visit [facility] MEDICINE [address] [place] [address] Gemini Chavez MD 230 [place] [address] documented as of this encounter Visit Diagnoses Not on filedocumented in this encounter Additional Health Concerns Assessment Noted Time PHQ-9 Depression Total Score: 0 11/30/19 25 10:53 AM EDT documented as of this encounter Care Teams Manager Storage Relationship Specialty Start Date End Date Gemini Chavez MD [address] [place] [address] PCP - General Family Medicine 01/21/18 [employer] 03/28/24 documented as of this encounter
[2025-03-11 13:21] LABS: Hematocrit 44.1 % (42.0-52.0); Hemoglobin 14.5 g/dl (14.0-18.0); Imm Gran Abs Auto 0.02 X10*3/uL (0.00-0.03); Imm Gran Pct Auto 0.3 % (0.0-0.4); Lymphocytes Absolute Auto 1.4 X10*3/uL (1.2-4.9); Mean Corpuscular HGB Conc 32.9 g/dl (31.0-36.0); Mean Corpuscular Hemoglobin 29.8 pg (27.0-33.0); Mean Corpuscular Volume 90.7 fL (80.0-98.0); NRBC Abs Auto 0.000 X10*3/uL (0.0-0.012); NRBC Pct Auto 0.0 /100WBC (0.0-0.2); Platelet Count 222 X10*3/uL (160-400); Red Blood Count 4.86 X10*6/uL (4.60-5.80); White Blood Count 6.9 X10*3/uL (4.8-10.8)
[2025-03-11 13:55] LABS: Alanine Aminotransferase 30 U/L (0-40); Albumin Level 4.1 g/dL (3.5-5.0); Alkaline Phosphatase 51 U/L (39-117); Anion Gap 13 (12-20); Aspartate Amino Transferase 27 U/L (5-37); Blood Urea Nitrogen 10 mg/dL (9-16); Calcium 9.2 mg/dL (8.4-10.2); Carbon Dioxide 28 mmol/L (22-29); Chloride 105 mmol/L (96-108); Estimated Glomerular Filt Rate 53; Potassium 4.2 mmol/L (3.3-5.1); Sodium 142 mmol/L (135-145); Total Protein 6.9 g/dL (6.5-8.0)
== END 2025-03-11 11:39 | disposition home or self-care (01) ==
LOC: HO.HHCL 11:38
PROVIDERS: Internal Medicine; PCP Internal Medicine; Visit Provider Internal Medicine
DX: Z01.818 Encounter for other preprocedural examination (principal)
CPT/HCPCS: 36415; 80053; 85025

== ENCOUNTER 2025-03-23 | Outpatient (REF) | payer OTHER, SELFPAY ==
--- OUTSIDE RECORDS SUMMARY | 2025-03-08 08:35 | XMS_ITS | Encounter Summary ---
Author Organization [facility] Address [address] [facility] 7t [place] [address] Care Team Providers Care Assault Amphibious Vehicle Crewman Name Role Phone Gemini Chavez MD Primary Care Provide r Reason for Visit * Reason Comments Med Refill Encounter Details Date Type Department Care Team (Late st Contact Info) Description 06/21/2022 Refill [facility] [address] [place], [place] [phone] Marsha Menjivar MD [address] [place], [place] [phone] Chronic systolic heart failure (CMS/HCC) Social History [...] Description 03/11/2025 10:30 AM EDT Office Visit [facility] [address] [place], [place] [phone] Abhishek Gregory FNP 230 [place] [address] 03/23/2025 11:15 AM EST Office Visit [facility] MED[facility]INE [address] [place] [address] [phone] Gemini Chavez MD [address] [place] [phone] documented as of this encounter Visit Diagnoses Diagnosis Chronic systolic heart failure (HCC) Chronic systolic heart failure documented in this encounter Additional Health Concerns Assessment Noted Time PHQ-9 Depression Total Score: 6 05/16/19 23 1:42 PM EST documented as of this encounter Care Teams Assault Amphibious Vehicle Crewman Relationship Specialty Start Date End Date Gemini Chavez MD [address] [place] [address] PCP - General Family Medicine 01/21/18 [employer] 03/28/24 documented as of this encounter
--- OUTSIDE RECORDS SUMMARY | 2025-03-08 08:35 | XMS_ITS | Encounter Summary ---
Author Organization [employer] Address [address] [facility] 7t [place] [address] Care Team Providers Care Tipple Operator Name Role Phone Gemini Chavez MD Primary Care Provide r Reason for Visit * Reason Onset Date Comments Prior Authorization 06/10/2024 Encounter Details Date Type Department Care Team ([facility] st Contact Info) Description 06/10/2024 Telephone [facility] 230 [place], [place] [phone] Gemini Chavez MD [address] [place] [address] Prior Authorization Social History Tobacco Use Types [...] is required on PA. Contact pt at [phone] (romanian) * Telephone Encounter - Rohit Cruz - 06/10/2024 9:00 AM EST Tc from pt requesting a PA for Tirzepatide-Weight Management (Zepbound) 2.5 MG/0.5ML solution auto-injector because pt stated that he received a letter stating that PA got denied. Contact pt: [phone] (Pakistani) documented in this encounter Plan of Treatment Upcoming Encounters Date Type Department Care Team (Late st Contact Info) Description 03/11/2025 10:30 AM EDT Office Visit [facility] [address] [place] [phone] Abhishek Gregory FNP [address] [place] [address] 03/23/2025 11:15 AM EST Office Visit [facility] [address] [place] [address] [place] [address] Gemini Chavez MD [address] [place] [address] documented as of this encounter Visit Diagnoses Not on filedocumented in this encounter Additional Health Concerns Assessment Noted Time PHQ-9 Depression Total Score: 0 09/03/19 24 9:55 AM EDT documented as of this encounter Care Teams Tipple Operator Relationship Specialty Start Date End Date Gemini Chavez MD [address] [place] [address] PCP - General Family Medicine 01/21/18 [employer] 03/28/24 documented as of this encounter
--- OUTSIDE RECORDS SUMMARY | 2025-03-08 08:35 | XMS_ITS | Encounter Summary ---
Author Organization [employer] Address 75 [facility] 7t [place] [address] Care Team Providers Care Speaker Wirer Name Role Phone Gemini Chavez MD Primary Care Provide r Reason for Visit * Reason Comments Med Refill Encounter Details Date Type Department Care Team ([facility] st Contact Info) Description 02/12/2024 Refill [facility] 230 [place], [place] [phone] Gemini Chavez MD 230 [place] [address] Prediabetes Social History Tobacco Use Types Packs/Day [...] Description 03/11/2025 10:30 AM EDT Office Visit [facility] [address] [place] [address] Abhishek Gregory FNP [address] [place] [address] 03/23/2025 11:15 AM EST Office Visit [address] [address] Gemini Chavez MD [address] [place] [address] documented as of this encounter Visit Diagnoses Diagnosis Prediabetes Other abnormal glucose documented in this encounter Additional Health Concerns Assessment Noted Time PHQ-9 Depression Total Score: 0 09/03/19 9:55 AM EDT documented as of this encounter Care Teams Speaker Wirer Relationship Specialty Start Date End Date Gemini Chavez MD [address] [place] [phone] PCP - General Family Medicine 01/21/18 [employer] 03/28/24 documented as of this encounter
--- OUTSIDE RECORDS SUMMARY | 2025-03-08 08:35 | XMS_ITS | Encounter Summary ---
Author Organization [employer] Address 75 [facility] 7t [place] [address] Care Team Providers Care Safemaker Name Role Phone Gemini Chavez MD Primary Care Provide r Reason for Visit * Reason Comments Med Refill Encounter Details Date Type Department Care Team ([facility] st Contact Info) Description 05/14/2024 Refill [facility] 230 [place], [place] [phone] Gemini Chavez MD 230 [place], [place] [phone] Class 1 obesity due to excess calories [...] Description 03/11/2025 10:30 AM EDT Office Visit [address] [phone] Abhishek Gregory FNP [address] [place] [address] 03/23/2025 11:15 AM EST Office Visit [address] [address] Gemini Chavez MD [address] [place] [address] documented as of this encounter Visit Diagnoses Diagnosis Class 1 obesity due to excess calories with serious comorbidity and body mass index (BMI) of 33.0 to 33.9 in adult documented in this encounter Additional Health Concerns Assessment Noted Time PHQ-9 Depression Total Score: 0 09/03/19 24 9:55 AM EDT documented as of this encounter Care Teams Safemaker Relationship Specialty Start Date End Date Gemini Chavez MD [address] [place] [phone] PCP - General Family Medicine 01/21/18 [employer] 03/28/24 documented as of this encounter
--- OUTSIDE RECORDS SUMMARY | 2025-03-08 08:35 | XMS_ITS | Encounter Summary ---
Author Organization [employer] Address 75 [facility] 7t [place] [address] Care Team Providers Care Precision Agriculture Technician Name Role Phone Gemini Chavez MD Primary Care Provide r Reason for Visit * Reason Comments Med Refill Encounter Details Date Type Department Care Team ([facility] st Contact Info) Description 02/12/2024 Refill [facility] 230 [place], [place] [phone] Gemini Chavez MD 230 [place] [address] Prediabetes Social History Tobacco Use Types Packs/Day [...] Description 03/11/2025 10:30 AM EDT Office Visit [facility] [address] [place] [address] Abhishek Gregory FNP [address] [place] [address] 03/23/2025 11:15 AM EST Office Visit [address] [address] Gemini Chavez MD [address] [place] [address] documented as of this encounter Visit Diagnoses Diagnosis Prediabetes Other abnormal glucose documented in this encounter Additional Health Concerns Assessment Noted Time PHQ-9 Depression Total Score: 0 09/03/19 9:55 AM EDT documented as of this encounter Care Teams Precision Agriculture Technician Relationship Specialty Start Date End Date Gemini Chavez MD [address] [place] [phone] PCP - General Family Medicine 01/21/18 [employer] 03/28/24 documented as of this encounter
--- OUTSIDE RECORDS SUMMARY | 2025-03-08 08:35 | XMS_ITS | Encounter Summary ---
Author Organization [employer] Address 75 [facility] 7t [place] [address] Care Team Providers Care Bleaching Machine Operator Name Role Phone Gemini Chavez MD Primary Care Provide r Reason for Visit * Reason Comments Med Refill Encounter Details Date Type Department Care Team ([facility] st Contact Info) Description 03/03/2024 Refill [facility] 230 [place], [place] [phone] Gemini Chavez MD 230 [place], [place] [phone] Social History Tobacco Use Types Packs/Day Years [...] Description 03/11/2025 10:30 AM EDT Office Visit [facility] [address] [place] [address] Abhishek Gregory FNP [address] [place] [address] 03/23/2025 11:15 AM EST Office Visit [address] [address] Gemini Chavez MD [address] [place] [address] documented as of this encounter Visit Diagnoses Not on filedocumented in this encounter Additional Health Concerns Assessment Noted Time PHQ-9 Depression Total Score: 0 09/03/19 9:55 AM EDT documented as of this encounter Care Teams Bleaching Machine Operator Relationship Specialty Start Date End Date Gemini Chavez MD [address] [place] [address] PCP - General Family Medicine 01/21/18 [employer] 03/28/24 documented as of this encounter
--- OUTSIDE RECORDS SUMMARY | 2025-03-08 08:36 | XMS_ITS | Encounter Summary ---
Author Organization [employer] Address 75 [facility] 7t [place] [address] Care Team Providers Care Creel Selector Name Role Phone Gemini Chavez MD Primary Care Provide r Reason for Visit * Reason Onset Date Comments Appointment Request 08/21/2022 Encounter Details Date Type Department Care Team ([facility] st Contact Info) Description 08/21/2022 Telephone [facility]INE 230 [place], [place] [phone] Gemini Chavez MD 230 [place] [address] Appointment Request Social History Tobacco Use Types [...] an family emergency. Please contact pt at [phone] documented in this encounter Plan of Treatment Upcoming Encounters Date Type Department Care Team (Late st Contact Info) Description 03/11/2025 10:30 AM EDT Office Visit [facility] [address] [place] [address] Abhishek Gregory FNP 230 [place] [address] 03/23/2025 11:15 AM EST Office Visit [address] [phone] Gemini Chavez MD [address] [place] [address] [phone] documented as of this encounter Visit Diagnoses Not on filedocumented in this encounter Additional Health Concerns Assessment Noted Time PHQ-9 Depression Total Score: 6 05/16/19 23 1:42 PM EST documented as of this encounter Care Teams Creel Selector Relationship Specialty Start Date End Date Gemini Chavez MD [address] [place] [address] [phone] PCP - General Family Medicine 01/21/18 [employer] 03/28/24 documented as of this encounter
--- OUTSIDE RECORDS SUMMARY | 2025-03-08 08:36 | XMS_ITS | Encounter Summary ---
Author Organization [employer] Address 75 [facility] 7t [place] [address] Care Team Providers Care Patient Coordinator Name Role Phone Gemini Chavez MD Primary Care Provide r Reason for Visit * Reason Comments Med Refill Encounter Details Date Type Department Care Team (Late st Contact Info) Description 09/08/2022 Refill [facility] [address] [place], [place] [phone] Umer Sears MD 230 [place], [place] [phone] Seasonal allergies Social History Tobacco Use Types [...] Office Visit [facility] MEDICINE 230 [place], [place] [phone] Abhishek Gregory FNP 230 [place] [address] 03/23/2025 11:15 AM EST Office Visit [facility] MEDICINE 230 [place] [address] Gemini Chavez MD 230 [place] [address] documented as of this encounter Visit Diagnoses Diagnosis Seasonal allergies Allergic rhinitis, cause unspecified documented in this encounter Additional Health Concerns Assessment Noted Time PHQ-9 Depression Total Score: 6 05/16/19 23 1:42 PM EST documented as of this encounter Care Teams Patient Coordinator Relationship Specialty Start Date End Date Gemini Chavez MD 230 [place] [address] PCP - General Family Medicine 01/21/18 [employer] 03/28/24 documented as of this encounter
--- OUTSIDE RECORDS SUMMARY | 2025-03-08 08:36 | XMS_ITS | Clinical Summary ---
Author Organization [address] [facility] Address 175 [place] [address] Phone Care Team Providers Care Special Procedures Nurse Name Role Phone Gemini Chavez MD [...] BLOOD SUGAR ONCE DAILY 5 Active [employer] Trion Lite monitoring kit USE TO TEST BLOOD [...] PM EDT Office Visit Orthopedic Surgery - [address] [phone] Gallito Hancock, DPM Dermatophytosis of [...] PM EST Office Visit Orth[facility] Surgery - [facility] [address] [place] [phone] Gallito Hancock, REBECCA [address] [place] [phone] Health Maintenance Due Date Last Done Comments [...] complete this topic Insurance MEDICAID - [place] [facility] Member Subscriber Plan / Payer (Ef fective 2022-Present) Name:Min Daily Relation to Subscriber:Self Name:Min Daily Payer ID:[id number] Group ID:[id number] Type:Not on file Address: [address] [place] [phone] Care Teams Special Procedures Nurse Relationship Specialty Start Date End Date Gemini Chavez MD [address] [place] [phone] [facility] - General 04/24/23
--- OUTSIDE RECORDS SUMMARY | 2025-03-08 08:36 | XMS_ITS | Encounter Summary ---
Author Organization [facility] [facility] Address 75 [facility] 7t [place] [address] Care Team Providers Care Master Certified Rv Technician Name Role Phone Gemini Chavez MD Primary Care Provide r Reason for Visit * Reason Comments Med Refill Encounter Details Date Type Department Care Team (Late st Contact Info) Description 10/07/2022 Refill [facility] [address] [place] [address] [phone] Gemini Chavez MD 230 [place], [place] [phone] Chronic systolic heart failure (CMS/HCC) Social History [...] Description 03/11/2025 10:30 AM EDT Office Visit [facility] [address] [place] [address] Abhishek Gregory FNP 230 [place] [address] 03/23/2025 11:15 AM EST Office Visit [facility] 230 [place] [address] Gemini Chavez MD 230 [place] [address] documented as of this encounter Visit Diagnoses Diagnosis Chronic systolic heart failure (HCC) Chronic systolic heart failure documented in this encounter Additional Health Concerns Assessment Noted Time PHQ-9 Depression Total Score: 6 05/16/19 23 1:42 PM EST documented as of this encounter Care Teams Master Certified Rv Technician Relationship Specialty Start Date End Date Gemini Chavez MD 230 [place] [address] PCP - General Family Medicine 01/21/18 [employer] 03/28/24 documented as of this encounter
--- OUTSIDE RECORDS SUMMARY | 2025-03-08 08:37 | XMS_ITS | Encounter Summary ---
Author Organization [employer] Address 75 [facility] 7t [place] [address] Care Team Providers Care Tobacco Drier Operator Name Role Phone Gemini Chavez MD Primary Care Provide r Reason for Visit * Reason Comments Med Change Request Encounter Details Date Type Department Care Team (Late Contact Info) Description 01/08/2023 Refill [facility] MEDICINE 230 [place], [place] [phone] aMrsha Menjivar MD 230 [place] [address] Chronic obstructive pulmonary disease, unspecified COPD type [...] signed and faxed to [facility]. documented in this encounter Plan of Treatment Upcoming Encounters Date Type Department Care Team (Late st Contact Info) Description 03/11/2025 10:30 AM EDT Office Visit [facility] MED[facility] [address] [place] [address] Abhishek Gregory FNP 230 [place] [address] 03/23/2025 11:15 AM EST Office Visit [facility] [address] [place] [address] [phone] Gemini Chavez MD [address] [place] [address] [phone] documented as of this encounter Visit Diagnoses Diagnosis Chronic obstructive pulmonary disease, unspecified COPD type (CMS/HCC) (HCC) documented in this encounter Additional Health Concerns Assessment Noted Time PHQ-9 Depression Total Score: 6 05/16/19 23 1:42 PM EST documented as of this encounter Care Teams Tobacco Drier Operator Relationship Specialty Start Date End Date Gemini Chavez MD [address] [place] [address] [phone] PCP - General Family Medicine 01/21/18 [employer] 03/28/24 documented as of this encounter
--- OUTSIDE RECORDS SUMMARY | 2025-03-08 08:37 | XMS_ITS | Encounter Summary ---
Author Organization [employer] Address 75 [facility] 7t [place] [address] Care Team Providers Care Preservative Filler Machine Operator Name Role Phone Gemini Chavez MD Primary Care Provide r Reason for Visit * Reason Comments Med Change Request Encounter Details Date Type Department Care Team (Late st Contact Info) Description 02/04/2023 Refill [facility]S [address] [place], [place] [phone] Marsha Menjivar MD 230 [place] [address] Primary hypertension Social History Tobacco Use Types [...] AM EDT Office Visit [facility] [address] [place] [address] [phone] Abhishek Gregory FNP 230 [place] [address] 03/23/2025 11:15 AM EST Office Visit [facility] [address] [place] [address] [phone] Gemini Chavez MD [address] [place] [address] [phone] documented as of this encounter Visit Diagnoses Diagnosis Primary hypertension Unspecified essential hypertension documented in this encounter Additional Health Concerns Assessment Noted Time PHQ-9 Depression Total Score: 6 05/16/19 23 1:42 PM EST documented as of this encounter Care Teams Preservative Filler Machine Operator Relationship Specialty Start Date End Date Gemini Chavez MD [address] [place] [address] [phone] PCP - General Family Medicine 01/21/18 [employer] 03/28/24 documented as of this encounter
--- OUTSIDE RECORDS SUMMARY | 2025-03-08 08:37 | XMS_ITS | Clinical Summary ---
Author Organization [employer] Address [address] [place] [address] 7[address] [place] [address] Care Team Providers Care Supervisor Silvering Department Name Role Phone Gemini Chavez MD Primary [...] ANAPHYLAXIS AND CALL 911 2022 Active Creon [id number] units capsule delayed-release particles capsule Take 2 capsules by mouth 4 times daily. ADMINISTER WITH MEALS AND/OR SNACKS 2022 Active Fluticasone-Salmetero l 250-50 MCG/ACT aerosol powder Inhale 1 puff 2 times daily. 2023 Active Umeclidinium Wilson (Incruse Ellipta) 62.5 MCG/ACT aerosol powderIndications:Chr onic [...] time per week. 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 20 tablet 03/04 guaiFENesin 200 MG tabletIndications:Acu te exacerbation of COPD with asthma ([facility]) ([facility]) Take 2 tablets (400 mg) by mouth every 4 (four) hours if needed for cough for up to 10 days. 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 -on day of surgery can take BB and levothyroxine with a sip of water and to hold rest of meds -nurse staff to fax this note to surgeon COPD with asthma ([facility]) 01/22/2023 Assessment & Plan (11/29/2024 [...] renal cyst 06/23/2012 Steatohepatitis 06/23/2012 Atrial fibrillation ([facility]/HCC) 12/12/2011 Assessment & Plan (05/19/2023 2:03 PM [...] Encounters Date Type Department Care Team Description 03/06/2025 Refill [facility] [address] [place] [address] Gemini Chavez MD 03/03/2025 Telephone [facility] [address] [place] [address] Gemini Chavez MD Transition Of Care (Tcm) 03/03/2025 Orders Only GENERIC EXTERNAL DATA DEPARTMENT Provider, Generic External Data 02/28/2025 Telephone [facility] [address] [place] [phone] Gemini Chavez MD Pre-op appt 02/22/2025 8:40 AM EDT [facility] [address] [address] Christal Edmonds MD Acute exacerbation of COPD with asthma (CMS/HCC) (HCC) (Primary Dx); Cough in adult 02/22/2025 Travel 02/21/2025 Telephone [facility] [address] [place] [address] eGmini Chavez MD Nurse Triage; ER Follow-up 02/21/2025 Orders Only GENERIC EXTERNAL DATA DEPARTMENT Provider, Generic External Data 02/18/2025 Orders Only [facility] External Provider, [facility] 02/16/2025 Telephone [facility] [address] [place] [address] Gemini Chavez MD Nurse Triage 02/15/2025 Orders Only [facility] External Provider, [facility] 02/11/2025 Refill [facility] [address] [place] [address] Gemini Chavez MD Hypertension, unspecified type 02/04/2025 Refill [facility] [address] [place] [address] Gemini Chavez MD Acquired hypothyroidism 02/03/2025 Telephone [facility] [address] [place] [phone] Gemini Chavez MD Fyi 02/02/2025 Orders Only GENERIC EXTERNAL DATA DEPARTMENT Provider, Generic External Data 01/31/2025 Patient Outreach [facility] [address] [place] [phone] Gemini Chavez MD Care Coordination ([facility] Agency) 01/28/2025 Refill [facility] [address] [place] [phone] Gemini Chavez MD 01/27/2025 Refill [facility] [address] [place] [address] Gemini Chavez MD Acquired hypothyroidism 01/20/2025 Orders Only GENERIC EXTERNAL DATA DEPARTMENT Provider, Generic External Data 01/18/2025 Telephone [facility] [address] [place] [address] Gemini Chavez MD NOV RECALL 12/22/2024 Telephone [facility] [address] [place] [address] Gemini Chavez MD Hypotension 12/16/2024 Refill [facility] [address] [place] [address] Gemini Chavez MD Pure hypercholesterolemia 12/15/2024 10:30 AM EDT Office Visit [facility] [address] [place] [phone] Jessica Ho NP Chronic left shoulder pain (Primary Dx); Acute reactive otitis externa of both ears 12/15/2024 Telephone [facility] [address] [place] [address] Gemini Chavez MD telephone call 12/15/2024 Travel 12/14/2024 Telephone [facility] [address] [place] [phone] Gemini Chavez MD Nurse Triage 12/11/2024 Orders Only [facility] External Provider, [facility] from Last 3 Months Immunizations Immunization Administration [...] 03/11/2025 10:30 AM EDT Office Visit [facility] [address] [place], [place] [phone] Abhishek Gregory FNP [address] [place] [address] 03/23/2025 11:15 AM EST Office Visit [facility] [address] [place], [place] [phone] Gemini Chavez MD [address] [place], [place] [phone] Health Maintenance Due Date Last Done Comments [...] Procedure Name Priority Date/Time Associated Diagnosis Comments CTA ABDOMEN PELVIS W AND WO CONTRAST Routine 03/03/2025 6:13 AM EDT CTA CHEST W AND WO CONTRAST Routine 03/03/2025 6:13 AM EDT LACTIC ACID Routine 03/03/2025 5:22 AM EDT HIGH SENSITIVITY TROPONIN I Routine 03/03/2025 5:22 AM EDT POCT RAPID STREP A Routine 02/22/2025 9: [...] Recently Relevant to Health Maintenance Results * CTA Abdomen Pelvis w/ and w/o Contrast (03/03/2025 6:13 AM EDT) Anatomical Region Laterality Modality Body, Pelvis, Abdomen Computed T omography 03/03/2025 6:13 AM EDT Narrative 03/03/2025 6:15 AM EDT [address] [address] [address] Scan Report Signed Patient: Min Rees MR#: [id number] : 1955 Acct:[id number] Age/Sex: 69 / M ADM Date: 03/03/25 Loc: HO.ED Attending Dr: Ordering Physician: Eleuterio Jenkins MD Date of Service: 03/03/25 Procedure(s): CT angio abdomen pelvis Accession Number(s): [id number] cc: Gemini Chavez MD; Eleuterio Jenkins MD Report Number: [id number]: Total DLP = 0.00 mGy-cm Reason for Exam: Mid lower chest pain radiating to the back CLINICAL HISTORY: Mid lower chest pain radiating to the back CT angiography chest, abdomen and pelvis with contrast. 3-D postprocessing. Comparison: None provided Findings: The ascending aorta is dilated at 4.1 cm. No dissection. Great vessels, thoracoabdominal aorta, mesenteric/renal arteries, and iliofemoral arteries are otherwise patent without aneurysm, dissection, hemodynamically significant stenoses, or occlusion. The visualized thyroid and mediastinum are unremarkable. The heart is normal size. No consolidation or effusion. Unremarkable gallbladder and solid organs. Bilateral simple appearing renal cysts. Nonobstructing subcentimeter stones. No hydronephrosis. No bowel obstruction, pneumoperitoneum, or pneumatosis. Pelvic contents unremarkable. Normal appendix. No fluid collections or adenopathy. Marie in the right lower quadrant. No acute fractures. IMPRESSION: 1. Dilation of the ascending aorta up to 4.1 cm. No dissection or significant stenosis. Scattered atheromatous plaquing. 2. No acute pulmonary embolus. 3. Additional findings of chest, abdomen, and pelvis as noted. This document has been electronically signed by: Lesly Fleming MD on 03/03/2025 06:13:52 Dictated By: Lesly Fleming MD Signed By: <Electronically signed by Lesly Fleming MD in OV> 03/03/25613 DD/ 2 TD/TT: 03/03/25612 Leisure Studies Professor: Procedure Note Donotuseinterpreter, Image - 03/03/[address] [address] [address] Scan Report Signed Patient: Min Rees#: [id number] : 1955cct:[id number] Age/Sex: 69 / MADM Date: 03/03/25 Loc: HO.ED Attending Dr: Ordering Physician: Eleuterio Jenkins MD Date of Service: 03/03/25 Procedure(s): CT angio abdomen pelvis Accession Number(s): [id number] cc: Gemini Chavez MD; Eleuterio Jenkins MD Report Number: [id number]: Total DLP = 0.00 mGy-cm Reason for Exam: Mid lower chest pain radiating to the back CLINICAL HISTORY: Mid lower chest pain radiating to the back CT angiography chest, abdomen and pelvis with contrast. 3-D postprocessing. Comparison: None provided Findings: The ascending aorta is dilated at 4.1 cm. No dissection. Great vessels, thoracoabdominal aorta, mesenteric/renal arteries, and iliofemoral arteries are otherwise patent without aneurysm, dissection, hemodynamically significant stenoses, or occlusion. The visualized thyroid and mediastinum are unremarkable. The heart is normal size. No consolidation or effusion. Unremarkable gallbladder and solid organs. Bilateral simple appearing renal cysts. Nonobstructing subcentimeter stones. No hydronephrosis. No bowel obstruction, pneumoperitoneum, or pneumatosis. Pelvic contents unremarkable. Normal appendix. No fluid collections or adenopathy. Marie in the right lower quadrant. No acute fractures. IMPRESSION: 1. Dilation of the ascending aorta up to 4.1 cm. No dissection or significant stenosis. Scattered atheromatous plaquing. 2. No acute pulmonary embolus. 3. Additional findings of chest, abdomen, and pelvis as noted. This document has been electronically signed by: Lesly Fleming MD on 03/03/2025 06:13:52 Dictated By: Lesly Fleming MD Signed By: <Electronically signed by Lesly Fleming MD in OV> 03/03/25613 DD/ 2 TD/TT: 03/03/25612 Leisure Studies Professor: [facility] External Provider IMG CT PROCEDURES Edited Result - Final * CTA Chest w/ and w/o Contrast (03/03/2025 6:13 AM EDT) Anatomical Region Laterality Modality Body, Chest Computed Tomogra phy 03/03/2025 6:13 AM EDT Narrative 03/03/2025 6:14 AM EDT [address] [address] [address] Scan Report Signed Patient: Min Rees MR#: [id number] : 1955 Acct:[id number] Age/Sex: 69 / M ADM Date: 03/03/25 Loc: HO.ED Attending Dr: Ordering Physician: Eleuterio Jenkins MD Date of Service: 03/03/25 Procedure(s): CT angio chest aorta Accession Number(s): [id number] cc: Gemini Chavez MD; Eleuterio Jenkins MD Report Number: [id number]: Total DLP = 936.00 mGy-cm Reason for Exam: Mid lower chest pain radiating to the back CLINICAL HISTORY: Mid lower chest pain radiating to the back CT angiography chest, abdomen and pelvis with contrast. 3-D postprocessing. Comparison: None provided Findings: The ascending aorta is dilated at 4.1 cm. No dissection. Great vessels, thoracoabdominal aorta, mesenteric/renal arteries, and iliofemoral arteries are otherwise patent without aneurysm, dissection, hemodynamically significant stenoses, or occlusion. The visualized thyroid and mediastinum are unremarkable. The heart is normal size. No consolidation or effusion. Unremarkable gallbladder and solid organs. Bilateral simple appearing renal cysts. Nonobstructing subcentimeter stones. No hydronephrosis. No bowel obstruction, pneumoperitoneum, or pneumatosis. Pelvic contents unremarkable. Normal appendix. No fluid collections or adenopathy. Marie in the right lower quadrant. No acute fractures. IMPRESSION: 1. Dilation of the ascending aorta up to 4.1 cm. No dissection or significant stenosis. Scattered atheromatous plaquing. 2. No acute pulmonary embolus. 3. Additional findings of chest, abdomen, and pelvis as noted. This document has been electronically signed by: Lesly Fleming MD on 03/03/2025 06:13:05 Dictated By: Lesly Fleming MD Signed By: <Electronically signed by Lesly Fleming MD in OV> 03/03/25612 DD/ 2 TD/TT: 03/03/25612 Leisure Studies Professor: Procedure Note Donotuseinterpreter, Image - 03/03/[address] [address] [address] Scan Report Signed Patient: Min Rees#: [id number] : 6Acct:[id number] Age/Sex: 69 / MADM Date: 03/03/25 Loc: HO.ED Attending Dr: Ordering Physician: Eleuterio Jenkins MD Date of Service: 03/03/25 Procedure(s): CT angio chest aorta Accession Number(s): [id number] cc: Gemini Chavez MD; Eleuterio Jenkins MD Report Number: [id number]: Total DLP = 936.00 mGy-cm Reason for Exam: Mid lower chest pain radiating to the back CLINICAL HISTORY: Mid lower chest pain radiating to the back CT angiography chest, abdomen and pelvis with contrast. 3-D postprocessing. Comparison: None provided Findings: The ascending aorta is dilated at 4.1 cm. No dissection. Great vessels, thoracoabdominal aorta, mesenteric/renal arteries, and iliofemoral arteries are otherwise patent without aneurysm, dissection, hemodynamically significant stenoses, or occlusion. The visualized thyroid and mediastinum are unremarkable. The heart is normal size. No consolidation or effusion. Unremarkable gallbladder and solid organs. Bilateral simple appearing renal cysts. Nonobstructing subcentimeter stones. No hydronephrosis. No bowel obstruction, pneumoperitoneum, or pneumatosis. Pelvic contents unremarkable. Normal appendix. No fluid collections or adenopathy. Marie in the right lower quadrant. No acute fractures. IMPRESSION: 1. Dilation of the ascending aorta up to 4.1 cm. No dissection or significant stenosis. Scattered atheromatous plaquing. 2. No acute pulmonary embolus. 3. Additional findings of chest, abdomen, and pelvis as noted. This document has been electronically signed by: Lesly Fleming MD on 03/03/2025 06:13:05 Dictated By: Lesly Fleming MD Signed By: <Electronically signed by Lesly Fleming MD in OV> 03/03/25612 DD/ 2 TD/TT: 03/03/25612 Leisure Studies Professor: [facility] External Provider IMG CT PROCEDURES Edited Result - Final * High Sensitivity Troponin I (03/03/2025 5:22 AM EDT) Only the most recent of2 resultswithin the time period is included. [facility] TROPONIN I HIGH SENSITIVITY 11.3 <3.5 - 35.0 ng/L [facility] Comment:The [place] high sens itivity Troponin-I results should beused in conjunction with other diagnostic information suchas ECG, clinical observations and information, and patientsymptoms to aid in the diagnosis of [place]. 03/03/2025 5:22 AM EDT 03/03/2025 5:25 AM EDT us Generic External Data Provider LAB BLOOD ORDERAB LES Final Result Performing Organization Address [facility] de Phone Number [facility] [address] [place] [phone] * (ABNORMAL) Lactic Acid (03/03/2025 5:22 AM EDT) [facility] Lactic Acid 2.1(HH) 0.5 - 2.0 mmol/L [facility] Comment:Critical value for t est(s): LACTIC ACID Results called toand read back by:MASON Person calling: NEGRA Date:03/03/25 Time:0556 03/03/2025 5:22 AM EDT 03/03/2025 5:25 AM EDT us Generic External Data Provider LAB BLOOD ORDERAB LES Final Result Performing Organization Address [facility] de Phone Number [facility] [address] [place] [phone] * Influenza B (ID NOW Rapid Molecular) (02/22/2025 9:09 AM EDT) [facility] Influenza B Negative Negative, Indeterminate [facility] Swab 02/22/2025 9:09 AM EDT us Christal Edmonds MD POINT OF CARE TEST ENTER/EDIT ORDERABLES Final Result [facility] [address] [place] [address] [phone] * Influenza A (ID NOW Rapid Molecular) (02/22/2025 9:09 AM EDT) [facility] Influenza A Negative Negative, Indeterminate [facility] Swab 02/22/2025 9:09 AM EDT Christal Edmonds MD POINT OF CARE TEST ENTER/EDIT ORDERABLES Final Result [facility] [address] [place] [address] [phone] * POCT rapid strep A manually resulted (02/22/2025 9:09 AM EDT) [facility] Rapid Strep A Screen Negative Negative, None Detected Swab 02/22/2025 9:09 AM EDT Christal Edmonds MD POINT OF CARE TEST ENTER/EDIT ORDERABLES Final Result * POCT Rapid COVID Ag (02/22/2025 8:55 AM EDT) [facility] Rapid COVID Ag Negative Swab 02/22/2025 8:55 AM EDT Christal Edmonds MD POINT OF CARE TEST ENTER/EDIT ORDERABLES Final Result * (ABNORMAL) Basic Metabolic Panel (02/21/2025 6:37 AM EDT) Only the most recent of2 resultswithin the time period is included. [facility] Sodium 144 135 - 145 mmol/L [facility] Potassium 3.4 3.3 - 5.1 mmol/L [facility] Chloride 105 96 - 108 mmol/L [facility] Carbon Dioxide 30(H) 22 - 29 mmol/L [facility] Anion Gap 12 12 - 20 [facility] Urea Nitrogen (BUN) 26(H) 9 - 16 mg/dL [facility] Creatinine, Serum 1.17 0.5 - 1.4 mg/dL [facility] Estimated Glomerular Filt Rate >60 [facility] Comment:Chronic Kidney Disea se: Estimated GFR < 60 mL/min/1.99g6Pihwmz Kidney Disease: Estimated GFR < 15 mL/min/1.73m2 Glucose 83 60 - 115 mg/dL [facility] Calcium 9.0 8.4 - 10.2 mg/dL [facility] 02/21/2025 6:37 AM EDT 02/21/2025 6:37 AM EDT us Generic External Data Provider LAB BLOOD ORDERAB LES Final Result Performing Organization Address City/State/[facility] Co de Phone Number [facility] [address] [place] [phone] * MR Shoulder w/o Contrast Left (02/18/2025 10:00 AM EDT) Anatomical Region Laterality Modality Upper Extremities, Shoulder Left Magn etic Resonance 02/18/2025 10:0 0 AM EDT Narrative 02/18/2025 12:15 PM EDT [address] [address] Magnetic Resonance Report Signed Patient: Min Rees MR#: [id number] : 1955 Acct:[id number] Age/Sex: 69 / M ADM Date: 02/18/25 Loc: HO.MRI Attending Dr: Mario Wild PA-C Ordering Physician: Mario Wild PA-C Date of Service: 02/18/25 Procedure(s): MR shoulder LT wo con Accession Number(s): [id number] cc: Gemini Chavez MD; Mario Wild PA-C [...] 02/18/25 1213 DD/ 1000 TD/TT: 02/18/25 1019 Leisure Studies Professor: Procedure Note Donotuseinterpreter, Image - 02/18/[address] [address] Magnetic Resonance Report Signed Patient: Min ReesMR#: [id number] : 6Acct:[id number] Age/Sex: 69 / MADM Date: 02/18/25 Loc: HO.MRI Attending Dr: Mario Wild PA-C Ordering Physician: Mario Wild PA-C Date of Service: 02/18/25 Procedure(s): MR shoulder LT wo con Accession Number(s): [id number] cc: Gemini Chavez MD; Mario Wild PA-C [...] 02/18/25 1213 DD/ 1000 TD/TT: 02/18/25 1019 Leisure Studies Professor: RHODA [facility] External Provider IMG MRI PROCEDURES Final Result * XR Chest 2 Views (02/15/2025 9:30 AM EDT) Anatomical Region Laterality Modality Chest Radiographic Claire ging 02/15/2025 9:30 AM EDT Narrative 02/15/2025 9:44 AM EDT [address] [address] XRay Report Signed Patient: Min Rees MR#: [id number] : 1955 Acct:[id number] Age/Sex: 69 / M ADM Date: 02/15/25 Loc: HO.ED Attending Dr: Ordering Physician: Tavia Garcia Date of Service: 02/15/25 Procedure(s): XR chest 2V Accession Number(s): [id number] cc: Gemini Chavez MD; Tavia Garcia Reason [...] OV> 02/15/2541 DD/ 9 TD/TT: 02/15/25 09 Leisure Studies Professor: Procedure Note Donotuseinterpreter, Image - 02/15/2025 [place] [address] XRay Report Signed Patient: Min ReesMR#: [id number] : 1955cct:[id number] Age/Sex: 69 / MADM Date: 02/15/25 Loc: HO.ED Attending Dr: Ordering Physician: Tavia Garcia Date of Service: 02/15/25 Procedure(s): XR chest 2V Accession Number(s): [id number] cc: Gemini Chavez MD; Tavia Garcia Reason [...] in OV> 02/15/25940 DD/ 9 TD/TT: 02/15/25934 Leisure Studies Professor: [facility] External Provider IMG XR PROCEDURES Final Result * (ABNORMAL) Glucose, Whole Blood (02/02/2025 9:24 AM EDT) Glucose, Whole Blood 125(H) 60 - 115 mg/dL [facility] Comment:METER #: [id number] 02/02/2025 9:24 AM EDT 02/02/2025 9:28 AM EDT [facility] External Data Provider LAB BLOOD ORDERAB LES Final Result [facility] [address] [place] [phone] * XR Shoulder 2+ Views Left (12/11/2024 9:05 AM EDT) Anatomical Region Laterality Modality Upper Extremities, Shoulder Left Radi ographic Imaging 12/11/2024 9:05 AM EDT Narrative 12/11/2024 9:06 AM EDT [address] [address] XRay Report Signed Patient: Min Rees MR#: [id number] : 1955 Acct:[id number] Age/Sex: 69 / M ADM Date: 12/11/24 Loc: HO.ED Attending Dr: Ordering Physician: Zenaida Zaragoza MD Date of Service: 12/11/24 Procedure(s): XR shoulder LT min 2V Accession Number(s): [id number] cc: Gemini Chavez MD; Zenaida Zaragoza MD [...] in OV> 12/11/24905 DD/ 4 TD/TT: 12/11/24904 Leisure Studies Professor: Procedure Note Donotuseinterpreter, Image - 12/11/2024 [place] [address] XRay Report Signed Patient: Min Rees#: [id number] : 6Acct:[id number] Age/Sex: 69 / MADM Date: 12/11/24 Loc: .ED Attending Dr: Ordering Physician: Zenaida Zaragoza MD Date of Service: 12/11/24 Procedure(s): XR shoulder LT min 2V Accession Number(s): [id number] cc: Gemini Chavez MD; Zenaida Zaragoza MD [...] in OV> 12/11/24905 DD/ 4 TD/TT: 12/11/24904 Leisure Studies Professor: [facility] External Provider IMG XR [...] 8:15 AM EST) Triglycerides 230(H) <150 mg/dL [facility] Comment:Desirable Triglyceri de: less than 150 mg/dLBorderline High Triglyceride 150-199 mg/dLHigh Triglyceride: 200-499 mg/dLVery High Triglyceride: greater than or equal to 5OO mg/dL Cholesterol 118 <200 mg/dL [facility] Comment:Desirable Cholestero l: less than 200 mg/dLBorderline High Cholesterol: 200-239 mg/dLHigh Cholesterol: greater than 239 mg/dL LDL Cholesterol Calculated 41 <100 mg/dL [facility] Comment:Desirable LDL: less than 100 mg/dLNear Optimal/Above Optimal LDL: 110- 129 mg/dLBorderline High LDL: 130-159 mg/dLHigh LDL: 160-189 mg/dLVery High LDL: greater than or equal to 190 mg/dL HDL Cholesterol 31(L) >40 mg/dL [facility] Comment:Desirable HDL: great er than 40 mg/dL Note: This HDL assay may give artificially low results in patients with liver disease. Blood Venous blood specimen / Unknown 05/03/2024 8:15 AM EST 05/03/2024 11:40 AM EST Gemini Chung MD LAB BLOOD ORDERABLES Final Result Performing Organization Address City/[facility]/ZIP Co de Phone Number [facility] [address] [place] [address] [phone] * Hm Colonoscopy (01/21/2024 10:19 AM EDT) Colonoscopy Normal Normal Narrative Jamila Page - 01/21/2024 10:19 AM EDT Repeat Colonoscopy in 6-12 months due to poor right prep or earlier if clinically indicated see external hospital admission note on 01/21/2024 Historical Provider HEALTH MAINTENANCE Edited Result - Final * Hepatitis C Antibody Reflex (12/13/2022 8:21 AM EDT) Hepatitis C Antibody Nonreactive Nonreactive [facility] Comment:Antibodies to HCV no t detected; does not exclude early acuteHCV infection. 12/13/2022 8:21 AM EDT 12/13/2022 11:08 AM EDT Gemini Chung MD LAB BLOOD ORDERABLES Final Result Performing Organization Address [facility] Co de Phone Number [facility] [address] [place] [address] [phone] from Last 3 Months or Most Recently Relevant to Health Maintenance Insurance [address] [place] [phone] FORMERLY [facility] CARE HOME OPTIONS (HMO D-SNP) [facility] Care Teams Supervisor Silvering Department Relationship Specialty Start Date End Date Gemini Chavez MD [address] [place] [address] PCP - General Family Medicine 01/21/18 [employer] 03/28/24
--- OUTSIDE RECORDS SUMMARY | 2025-03-08 08:37 | XMS_ITS | Encounter Summary ---
Author Organization [employer] [facility] Address [address] [facility] 7t [place] [address] Care Team Providers Care Taxonomy Teacher Name Role Phone Gemini Chavez MD Primary Care Provide r Encounter Details Date Type Department Care Team (Late st Contact Info) Description 01/22/2023 Orders Only [facility] [address] [place] [address] [phone] Gemini Chavez MD [address] [place], [place] [phone] COPD with asthma ([facility]) Social History Tobacco Use Types [...] Description 03/11/2025 10:30 AM EDT Office Visit [facility] [address] [place] [phone] Abhishek Gregory FNP 230 [place] [address] 03/23/2025 11:15 AM EST Office Visit [facility] [address] [place] [address] Gemini Chavez MD [address] [place] [address] documented as of this encounter Visit Diagnoses Diagnosis COPD with asthma (CMS/HCC) (HCC) documented in this encounter Additional Health Concerns Assessment Noted Time PHQ-9 Depression Total Score: 6 05/16/19 23 1:42 PM EST documented as of this encounter Care Teams Taxonomy Teacher Relationship Specialty Start Date End Date Gemini Chavez MD [address] [place] [address] PCP - General Family Medicine 01/21/18 [employer] 03/28/24 documented as of this encounter
--- OUTSIDE RECORDS SUMMARY | 2025-03-08 08:38 | XMS_ITS | Encounter Summary ---
Author Organization [employer] Address [address] [facility] 7t [place] [address] Care Team Providers Care Manual Plate Filler Name Role Phone Gemini Chavez MD Primary Care Provide r Reason for Visit * Reason Onset Date Comments Referral 03/14/2023 Encounter Details Date Type Department Care Team ([facility] st Contact Info) Description 03/14/2023 Telephone [facility] 230 [place], [place] [phone] Gemini Chavez MD [address] [place], [place] [phone] Referral Social History Tobacco Use Types Packs/Day [...] t he electric, gas, oil or water [employer] threatened to shut off services in your [...] Description 03/11/2025 10:30 AM EDT Office Visit [address] [address] Abhishek Gregory FNP [address] [place] [address] 03/23/2025 11:15 AM EST Office Visit [address] [address] Gemini Chavez MD [address] [place] [address] documented as of this encounter Visit Diagnoses Not on filedocumented in this encounter Additional Health Concerns Assessment Noted Time PHQ-9 Depression Total Score: 6 05/16/19 23 1:42 PM EST documented as of this encounter Care Teams Manual Plate Filler Relationship Specialty Start Date End Date Gemini Chavez MD [address] [place] [address] PCP - General Family Medicine 01/21/18 [employer] 03/28/24 documented as of this encounter
--- OUTSIDE RECORDS SUMMARY | 2025-03-08 08:38 | XMS_ITS | Encounter Summary ---
Author Organization [employer] Address [address] [facility] 7t [place] [address] Care Team Providers Care Lead Process Engineer Name Role Phone Gemini Chavez MD Primary Care Provide r Encounter Details Date Type Department Care Team (Late st Contact Info) Description 02/19/2023 Abstract [facility] 230 [place], [place] [phone] Gemini Chavez MD 230 [place], [place] [phone] Social History Tobacco Use Types Packs/Day Years [...] Description 03/11/2025 10:30 AM EDT Office Visit [facility] [address] [place] [address] Abhishek Gregory FNP 230 [place], [place] [phone] 03/23/2025 11:15 AM EST Office Visit [address] [address] Gemini Chavez MD [address] [place] [address] documented as of this encounter Visit Diagnoses Not on filedocumented in this encounter Additional Health Concerns Assessment Noted Time PHQ-9 Depression Total Score: 6 05/16/19 23 1:42 PM EST documented as of this encounter Care Teams Lead Process Engineer Relationship Specialty Start Date End Date Gemini Chavez MD [address] [place] [address] [phone] PCP - General Family Medicine 01/21/18 [employer] 03/28/24 documented as of this encounter
--- OUTSIDE RECORDS SUMMARY | 2025-03-08 08:38 | XMS_ITS | Patient Health Record ---
Author Organization [facility] Address [address] [place] [address] Care Team Providers Care Wire Weaving Loom Setter Name Role Phone Gemini Fisher M.D. Primary Care Provider Larry Angeles Jr Unavailable Cipriano Murphy MD Unavailable Unavailable Allergies No Known Allergies Reason For Referral No Information Medications Medication SIG (Take, Route, Frequency, Duration) Notes Start Date End Date Status Creon [id number] UNIT TOME 2 C PSULAS POR V [...] Status W/U Status Risk Notes Problem Dysphagia (02742563) Dysphagia (R13.10) Active confirmed Problem Dysphagia (30122654) Dysphagia, unspecified type (R13.10) Active confirmed Problem Barium swallow abnormal (233500712) Abnormal barium swallow (R93.3) Active confirmed Problem Gastroesophageal reflux disease (775511583) Gastroesophageal reflux disease, unspecified whether esophagitis present (K21.9) Active confirmed Problem Presbyesophagus (882148984) Presbyesophagus (K22.89) Active confirmed Plan Of Treatment Future Test Test Name Order Date UPPER GI ENDOSCOPY 03/13/2023 Insurance Providers Payer Name Payer Address Payer Phone Subscriber Number Group Number Insured Name Patient Relationship to Insured Coverage Start Date Coverage End Date [facility] [address] Attn Claims CLIFF Perez [id number] [id number] DAILY Self - patient is the insured Medical (General) History Medical History History ICD Code CE/COPD hypertension Fatty liver pulmonary nodule Elevated BMI Atrial fibrillation Hypothyroidism Gastroesophageal reflux disease/dysphagi a Surgical History Surgery Date(Month/Year) Cataract surgery Umbilical hernia repair Tonsillectomy
--- OUTSIDE RECORDS SUMMARY | 2025-03-08 08:39 | XMS_ITS | Clinical Summary ---
Author Organization [facility] Address [address] [facility] [address] [place] [phone] Phone Care Team Providers Care Bingo Clerk Name Role Phone Curt Richey MD [...] Medical Devices Not on file Insurance [address] [place] [id number] [facility] ONE CARE MEDICARE REPLACEMENT CLIFF DONAHUE [facility] MEDICARE REPLACEMENT MEDICARE REPLACEMENT CARE MEDICARE REPLACEMENT [place] [address] ONE CARE MEDICARE REPLACEMENT Care Teams Bingo Clerk Relationship Specialty Start Date End Date Curt Richey MD PCP - General Cardiology 12/21/19 Additional Source Comments The information contained in this document represents components of the legal health record. It is not the complete legal health record.[facility]
--- OUTSIDE RECORDS SUMMARY | 2025-03-08 08:39 | XMS_ITS | Encounter Summary ---
Author Organization [employer] Address 75 [facility] 7t [place] [address] Care Team Providers Care Geophysical Prospecting Permit Agent Name Role Phone Gemini Chavez MD Primary Care Provide r Reason for Visit * Reason Onset Date Comments Nurse Triage 03/26/2023 Encounter Details Date Type Department Care Team ([facility] st Contact Info) Description 03/26/[address] [facility] 230 [place], [place] [phone] Gemini Chavez MD 230 [place] [address] Nurse Triage Social History Tobacco Use Types [...] 03/26/2023 11:47 AM EST Triage call with [place] Manager Of Selection And Assessment ID [id number] Pt reports ingrown toenail great toe on left foot for 3 days now. Pt reports it is painful and causes some limping when ambulating. Pt denies redness, drainage. Pt requests a referral to asphalt layer which was very helpful last time this happened. Pt is advised will send this request to PCP and nursing team for follow up and Pt agreed. Pt declined to come to [facility] only wants asphalt layer to cut this toenail. Protocol Used: Information [...] accepted this outcome Please contact pt at [phone] (tone artist apprentice needed) documented in this encounter Plan of Treatment Upcoming Encounters Date Type Department Care Team ([facility] Contact Info) Description 03/11/2025 10:30 AM EDT Office Visit [facility] [address] [place] [address] [phone] Abhishek Gregory, LEV [address] [place] [address] 03/23/2025 11:15 AM EST Office Visit [facility] [address] [place] [address] [phone] Gemini Chavez MD [address] [place] [address] [phone] documented as of this encounter Visit Diagnoses Not on filedocumented in this encounter Additional Health Concerns Assessment Noted Time PHQ-9 Depression Total Score: 6 05/16/19 23 1:42 PM EST documented as of this encounter Care Teams Geophysical Prospecting Permit Agent Relationship Specialty Start Date End Date Gemini Chavez MD [address] [place] [address] [phone] PCP - General Family Medicine 01/21/18 [employer] 03/28/24 documented as of this encounter
--- OUTSIDE RECORDS SUMMARY | 2025-03-08 08:39 | XMS_ITS | Encounter Summary ---
Author Organization [facility] Address [address] [facility] [address] [place] [address] Phone Care Team Providers Care Manager Heavy Equipment Name Role Phone Curt Rihcey MD Primary Care Provider + Encounter Details Date Type Department Care Team (Latest Contact Info) Description 12/24/2019 Ancillary [facility] [address] [place] [address] [place] [address] Curt Richey MD [address] [place] [address] [email or web address] Atrial fibrillation, unspecified type Social History Tobacco [...] type documented in this encounter Care Teams Manager Heavy Equipment Relationship Specialty Start Date End Date Curt Richey MD [email or web address] PCP - General Cardiology 12/21/19 documented as of this encounter Additional Source Comments The information contained in this document represents components of the legal health record. It is not the complete legal health record.[facility]
--- OUTSIDE RECORDS SUMMARY | 2025-03-08 08:39 | XMS_ITS | Encounter Summary ---
Author Organization [employer] Address [address] [facility] 7t [place] [address] Care Team Providers Care Pc Support Specialist Name Role Phone Gemini Chavez MD Primary Care Provide r Encounter Details Date Type Department Care Team (Late st Contact Info) Description 07/10/2023 Orders Only [facility] 230 [place], [place] [phone] Gemini Chavez MD 230 [place], [place] [phone] Mixed stress and urge urinary incontinence (Primary [...] t he electric, gas, oil or water [employer] threatened to shut off services in your [...] Description 03/11/2025 10:30 AM EDT Office Visit [facility] [address] [place] [address] Abhishek Gregory FNP [address] [place] [address] 03/23/2025 11:15 AM EST Office Visit [address] [address] Gemini Chavez MD [address] [place] [address] documented as of this encounter Visit Diagnoses Diagnosis Mixed stress and urge urinary incontinence- Primary Mixed incontinence urge and stress (male)(female) documented in this encounter Additional Health Concerns Assessment Noted Time PHQ-9 Depression Total Score: 6 05/16/19 23 1:42 PM EST documented as of this encounter Care Teams Pc Support Specialist Relationship Specialty Start Date End Date Gemini Chavez MD [address] [place] [address] PCP - General Family Medicine 01/21/18 [employer] 03/28/24 documented as of this encounter
--- OUTSIDE RECORDS SUMMARY | 2025-03-08 08:39 | XMS_ITS | Encounter Summary ---
Author Organization [facility] Address [address] [place] [address] Phone Care Team Providers Care Electronic Gaming Device Supervisor Name Role Phone Curt Richey MD Primary Care Provider + Encounter Details Date Type Department Care Team (Late st Contact Info) Description 12/24/2019 Ancillary Orders [facility] [address] [facility] 3rd Floor, [address] [place] [address] Curt Richey MD 50 [place] [address] [email or web address] Social History Tobacco Use Types Packs/Day Years [...] on filedocumented in this encounter Care Teams Electronic Gaming Device Supervisor Relationship Specialty Start Date End Date Curt Richey MD [email or web address] PCP - General Cardiology 12/21/19 documented as of this encounter Additional Source Comments The information contained in this document represents components of the legal health record. It is not the complete legal health record.[facility]
--- OUTSIDE RECORDS SUMMARY | 2025-03-08 08:40 | XMS_ITS | Encounter Summary ---
Author Organization [employer] Address [address] [facility] 7t [place] [address] Care Team Providers Care Pedigree Researcher Name Role Phone Gemini Chavez MD Primary Care Provide r Reason for Visit * Reason Comments Med Refill Encounter Details Date Type Department Care Team ([facility] st Contact Info) Description 03/06/2025 Refill [facility] 230 [place], [place] [phone] Gemini Chavez MD 230 [place], [place] [phone] Social History Tobacco Use Types Packs/Day Years [...] Office Visit [facility] [address] [place] [address] Abhishek Gregory FNP [address] [place] [address] 03/23/2025 11:15 AM EST Office Visit [address] [address] Gemini Chavez MD [address] [place] [address] documented as of this encounter Visit Diagnoses Not on filedocumented in this encounter Additional Health Concerns Assessment Noted Time PHQ-9 Depression Total Score: 0 11/30/19 25 10:53 AM EDT documented as of this encounter Care Teams Pedigree Researcher Relationship Specialty Start Date End Date Gemini Chavez MD [address] [place] [address] PCP - General Family Medicine 01/21/18 [employer] 03/28/24 documented as of this encounter
--- OUTSIDE RECORDS SUMMARY | 2025-03-08 08:40 | XMS_ITS | Encounter Summary ---
Author Organization [employer] Address [address] [facility] 7t [place] [address] Care Team Providers Care Physician Practice Market Manager Name Role Phone Gemini Chavez MD Primary Care Provide r Reason for Visit * Reason Comments Med Refill Encounter Details Date Type Department Care Team ([facility] st Contact Info) Description 05/08/2024 Refill [facility] 230 [place], [place] [phone] Gemini Chavez MD 230 [place] [address] Class 1 obesity due to excess calories [...] AM EDT Office Visit [facility] [address] [place] [address] Abhishek Gregory FNP [address] [place] [phone] 03/23/2025 11:15 AM EST Office Visit [facility] [address] [place] [address] Gemini Chavez MD [address] [place] [place] [address] documented as of this encounter Visit Diagnoses Diagnosis Class 1 obesity due to excess calories with serious comorbidity and body mass index (BMI) of 33.0 to 33.9 in adult documented in this encounter Additional Health Concerns Assessment Noted Time PHQ-9 Depression Total Score: 0 09/03/19 24 9:55 AM EDT documented as of this encounter Care Teams Physician Practice Market Manager Relationship Specialty Start Date End Date Gemini Chavez MD 230 [place] [address] PCP - General Family Medicine 01/21/18 [employer] 03/28/24 documented as of this encounter
--- OUTSIDE RECORDS SUMMARY | 2025-03-08 08:40 | XMS_ITS | Encounter Summary ---
Author Organization [employer] Address [address] [facility] 7t [place] [address] Care Team Providers Care Alarm Signal Operator Name Role Phone eGmini Chavez MD Primary Care Provide r Encounter Details Date Type Department Care Team (Late st Contact Info) Description 05/10/2024 Orders Only [facility] 230 [place], [place] [phone] Gemini Chavez MD 230 [place], [place] [phone] Stage 3 chronic kidney disease, unspecified whether [...] Description 03/11/2025 10:30 AM EDT Office Visit [address] [address] Abhishek Gregory FNP [address] [place] [address] 03/23/2025 11:15 AM EST Office Visit [address] [address] Gemini Chavez MD [address] [place] [address] documented as of this encounter Visit Diagnoses [...] documented as of this encounter Care Teams Alarm Signal Operator Relationship Specialty Start Date End Date Gemini Chavez MD [address] [place] [address], [place] [address] PCP - General Family Medicine 01/21/18 [employer] 03/28/24 documented as of this encounter
--- OUTSIDE RECORDS SUMMARY | 2025-03-08 08:40 | XMS_ITS | Encounter Summary ---
Author Organization [employer] Address [address] [facility] 7t [place] [address] Care Team Providers Care Veneer Trimmer Name Role Phone Gemini Chavez MD Primary Care Provide r Reason for Visit * Reason Comments Med Refill Encounter Details Date Type Department Care Team (Late st Contact Info) Description 10/20/2023 Refill [facility] [address] [place], [place] [phone] Gemini Chavez MD [address] [facility] [place] [address] Seasonal allergies Social History Tobacco Use Types [...] Description 03/11/2025 10:30 AM EDT Office Visit [facility] [address] [place] [address] Abhishek Gregory FNP [address] [place] [address] 03/23/2025 11:15 AM EST Office Visit [address] [address] Gemini Chavez MD [address] [place] [address] documented as of this encounter Visit Diagnoses Diagnosis Seasonal allergies Allergic rhinitis, cause unspecified documented in this encounter Additional Health Concerns Assessment Noted Time PHQ-9 Depression Total Score: 0 09/03/19 9:55 AM EDT documented as of this encounter Care Teams Veneer Trimmer Relationship Specialty Start Date End Date Gemini Chavez MD [address] [place] [address] PCP - General Family Medicine 01/21/18 [employer] 03/28/24 documented as of this encounter
--- OUTSIDE RECORDS SUMMARY | 2025-03-08 08:41 | XMS_ITS | Encounter Summary ---
Author Organization [employer] Address [address] [facility] 7t [place] [address] Care Team Providers Care Preparer Making Department Name Role Phone Gemini Chavez MD Primary Care Provide r Encounter Details Date Type Department Care Team (Late st Contact Info) Description 03/03/2025 Orders Only GENERIC EXTERNAL DATA DEPARTMENT [...] 10:30 AM EDT Office Visit [facility] [address] [place] [phone] Abhishek Gregory FNP [address] [place] [address] 03/23/2025 11:15 AM EST Office Visit [address] [address] Gemini Chavez MD [address] [place] [phone] documented as of this encounter Procedures Procedure Name Priority Date/Time Associated Diagnosis Comments CTA ABDOMEN PELVIS W AND WO CONTRAST Routine 03/03/2025 6:13 AM EDT CTA CHEST W AND WO CONTRAST Routine 03/03/2025 6:13 AM EDT HIGH SENSITIVITY TROPONIN I Routine 03/03/2025 5:22 AM EDT LACTIC ACID Routine 03/03/2025 5:22 AM EDT documented in this encounter Results * CTA Abdomen Pelvis w/ and w/o Contrast (03/03/2025 6:13 AM EDT) Anatomical Region Laterality Modality Body, Pelvis, Abdomen Computed T omography 03/03/2025 6:13 AM EDT Narrative 03/03/2025 6:15 AM EDT [address] [address] [address] Scan Report Signed Patient: Min Rees MR#: [id number] : 1955 Acct:[id number] Age/Sex: 69 / M ADM Date: 03/03/25 Loc: HO.ED Attending Dr: Ordering Physician: Eleuterio Jenkins MD Date of Service: 03/03/25 Procedure(s): CT angio abdomen pelvis Accession Number(s): [id number] cc: Gemini Chavez MD; Eleuterio Jenkins MD Report Number: [id number]: Total DLP = 0.00 mGy-cm Reason for [...] Normal appendix. No fluid collections or adenopathy. [place] in the right lower quadrant. No acute [...] in OV> 03/03/25613 DD/ 2 TD/TT: 03/03/25612 Combat Rifle Crewmember: Procedure Note Donotuseinterpreter, Image - 03/03/[address] [address] [address] Scan Report Signed Patient: Min ReesMR#: [id number] : [id number]:[id number] Age/Sex: 69 / MADM Date: 03/03/25 Loc: HO.ED Attending Dr: Ordering Physician: Eleuterio Jenkins MD Date of Service: 03/03/25 Procedure(s): CT angio abdomen pelvis Accession Number(s): [id number] cc: Gemini Chavez MD; Eleuterio Jenkins MD Report Number: [id number]: Total DLP = 0.00 mGy-cm Reason for [...] Normal appendix. No fluid collections or adenopathy. [place] in the right lower quadrant. No acute [...] in OV> 03/03/25613 DD/ 2 TD/TT: 03/03/25612 Combat Rifle Crewmember: [facility] External Provider IMG CT PROCEDURES Edited Result - Final * CTA Chest w/ and w/o Contrast (03/03/2025 6:13 AM EDT) Anatomical Region Laterality Modality Body, Chest Computed Tomogra phy 03/03/2025 6:13 AM EDT Narrative 03/03/2025 6:14 AM EDT [place] [address] CT Scan Report Signed Patient: Min Rees MR#: [id number] : 1955 Acct:[id number] Age/Sex: 69 / M ADM Date: 03/03/25 Loc: HO.ED Attending Dr: Ordering Physician: Eleuterio Jenkins MD Date of Service: 03/03/25 Procedure(s): CT angio chest aorta Accession Number(s): [id number] cc: Gemini Chavez MD; Eleuterio Jenkins MD Report Number: [id number]: Total DLP = 936.00 mGy-cm Reason for [...] Normal appendix. No fluid collections or adenopathy. [place] in the right lower quadrant. No acute [...] in OV> 03/03/25612 DD/ 2 TD/TT: 03/03/25612 [employer]ifle Crewmember: Procedure Note Tam, Image - 03/03/[address] [place] [address] [address] Scan Report Signed Patient: Min ReesMR#: [id number] : 1955cct:[id number] Age/Sex: 69 / MADM Date: 03/03/25 Loc: HO.ED Attending Dr: Ordering Physician: Eleuterio Jnekins MD Date of Service: 03/03/25 Procedure(s): CT angio chest aorta Accession Number(s): [id number] cc: Gemini Chavez MD; Eleuterio Jenkins MD Report Number: [id number]: Total DLP = 936.00 mGy-cm Reason for [...] Normal appendix. No fluid collections or adenopathy. [place] in the right lower quadrant. No acute [...] in OV> 03/03/25612 DD/ 2 TD/TT: 03/03/25612 [employer]ifle Crewmember: [facility] External Provider IMG CT PROCEDURES Edited Result - Final * (ABNORMAL) Lactic Acid (03/03/2025 5:22 AM EDT) Lactic Acid 2.1(HH) 0.5 - 2.0 mmol/L [facility] Comment:Critical value for t est(s): LACTIC ACID Results called toand read back by:MASON Person calling: NEGRA Date:03/03/25 Time:0556 03/03/2025 5:22 AM EDT 03/03/2025 5:25 AM EDT Generic External Data Provider LAB BLOOD ORDERAB LES Final Result Performing Organization Address [facility] Co de Phone Number [facility] [address] [place] [phone] * High Sensitivity Troponin I (03/03/2025 5:22 AM EDT) TROPONIN I HIGH SENSITIVITY 11.3 <3.5 - 35.0 ng/L [facility] Comment:The [place] high sens itivity Troponin-I results should beused in conjunction with other diagnostic information suchas ECG, clinical observations and information, and patientsymptoms to aid in the diagnosis of [place]. 03/03/2025 5:22 AM EDT 03/03/2025 5:25 AM EDT Generic External Data Provider LAB BLOOD ORDERAB LES Final Result Performing Organization Address [facility]/ZIP Co de Phone Number [facility] [address] [place] [phone] documented in this encounter Visit Diagnoses Not on filedocumented in this encounter Additional Health Concerns Assessment Noted Time PHQ-9 Depression Total Score: 0 11/30/19 25 10:53 AM EDT documented as of this encounter Care Teams Preparer Making Department Relationship Specialty Start Date End Date Gemini Chavez MD [address] [place] [address] PCP - General Family Medicine 01/21/18 Moblication 03/28/24 documented as of this encounter
--- OUTSIDE RECORDS SUMMARY | 2025-03-08 08:41 | XMS_ITS | Encounter Summary ---
Author Organization [employer] Address [address] [facility] 7t [place] [address] Care Team Providers Care Roads Superintendent Name Role Phone Gemini Chavez MD Primary Care Provide r Encounter Details Date Type Department Care Team (Late st Contact Info) Description 06/18/2024 Orders Only [facility] [address] [place], [place] [phone] Gemini Chavez MD [address] [place], [place] [phone] Social History Tobacco Use Types Packs/Day Years [...] EDT Office Visit [facility] [address] [place] [phone] Abhishek Gregory FNP [address] [place] [phone] 03/23/2025 11:15 AM EST Office Visit [address] [address] Gemini Chavez MD [address] [place] [phone] documented as of this encounter Visit Diagnoses Not on filedocumented in this encounter Additional Health Concerns Assessment Noted Time PHQ-9 Depression Total Score: 0 09/03/19 9:55 AM EDT documented as of this encounter Care Teams Roads Superintendent Relationship Specialty Start Date End Date Gemini Chavez MD [address] [place] [phone] PCP - General Family Medicine 01/21/18 [employer] 03/28/24 documented as of this encounter
--- OUTSIDE RECORDS SUMMARY | 2025-03-08 08:41 | XMS_ITS | Encounter Summary ---
Author Organization [employer] Address [address] [facility] 7t [place] [address] Care Team Providers Care Dough Mixer Helper Name Role Phone Gemini Chavez MD Primary Care Provide r Reason for Visit * Reason Onset Date Comments Transition Of Care (Tcm) 03/03/2025 Encounter Details Date Type Department Care Team ([facility] st Contact Info) Description 03/03/[address] [facility] [address] [place], [place] [phone] Gemini Chavez MD [address] [place] [phone] Transition Of Care (Tcm) Social History Tobacco Use Types Packs/Day Years [...] encounter Miscellaneous Notes * Telephone Encounter - Christy Diaz RN - 03/04/2025 10:07 AM EDT Noted. Patient seen at [facility] ED on 03/03/25 for chest pain and abdominal pain. [facility] ED was unable to find a cause of abdominal pain and chest pain based on BW/imaging completed at [facility]. Patient was advised to continue taking pantoprazole 40mg daily and to start carafate 1g PO BID for 14 days. TC placedto patient [phone] via [employer] interpreters ([facility] #[id number])to status check. Patient confirms his daughter obtained the carafate from the pharmacy and he has taken the first dose. Patient also confirms he is taking the pantoprazole daily. Patient advised if s/s return to seek [facility] evaluation or return to the ED. Patient verbalized understanding. RN reminded patient of pre-op appointment on 03/11/25 and routine f/u appointment on 03/23/25. RN has added ED visit to appointment details on 03/23/25.Patient to f/u PRN. * Telephone Encounter - Kim Mcgowan RN - 03/03/2025 8:28 AM EDT Transition of Care Note Min Cano is going through a recent transition of care. Emergency Room Visit Date: 03/03/2025 Facility: [facility] Diagnosis: weakness, chest pain, abdominal pain Disposition: Discharged home Discharge summary in the chart: Please contact for status check documented in this encounter Plan of Treatment Upcoming Encounters Date Type Department Care Team (Late st Contact Info) Description 03/11/2025 10:30 AM EDT Office Visit [facility] [address] [place] [phone] Abhishek Gregory FNP [address] [place] [phone] 03/23/2025 11:15 AM EST Office Visit [address] [address] Gemini Chavez MD [address] [place] [address] [phone] documented as of this encounter Visit Diagnoses Not on filedocumented in this encounter Additional Health Concerns Assessment Noted Time PHQ-9 Depression Total Score: 0 11/30/19 25 10:53 AM EDT documented as of this encounter Care Teams Dough Mixer Helper Relationship Specialty Start Date End Date Gemini Chavez MD [address] [place] [address] [phone] PCP - General Family Medicine 01/21/18 Flukle 03/28/24 documented as of this encounter
--- OUTSIDE RECORDS SUMMARY | 2025-03-08 08:41 | XMS_ITS | Encounter Summary ---
Author Organization [employer] Address [address] [facility] 7t [place] [address] Care Team Providers Care Federal Aid Coordinator Name Role Phone Gemini Chavez MD Primary Care Provide r Reason for Visit * Reason Comments Med Refill Encounter Details Date Type Department Care Team ([facility] st Contact Info) Description 10/16/[address] [facility] [address] [place], [place] [phone] Gemini Chavez MD [address] [place] [address] Prediabetes Social History Tobacco Use Types Packs/Day [...] 10:30 AM EDT Office Visit [facility] [address] [place] [phone] Abhishek Gregory FNP [address] [place] [phone] 03/23/2025 11:15 AM EST Office Visit [address] [address] Gemini Chavez MD [address] [place] [address] documented as of this encounter Visit Diagnoses Diagnosis Prediabetes Other abnormal glucose documented in this encounter Additional Health Concerns Assessment Noted Time PHQ-9 Depression Total Score: 0 09/03/19 9:55 AM EDT documented as of this encounter Care Teams Federal Aid Coordinator Relationship Specialty Start Date End Date Gemini Chavez MD [address] [place] [phone] PCP - General Family Medicine 01/21/18 [email or web address] 03/28/24 documented as of this encounter
[2025-03-23 09:40] VITALS: BP 135/90; PULSE 85; RESP 20; O2SAT 97; BMI 34.9
--- NOTE | 2025-03-23 10:00 | HO.ANESPROP2 ---
HPI - Anesthesia Eval Consult details Narrative: Surgery cx'd and referral to pain management 69yo M for Left Shoulder Arthroscopy,Subacromial decompression,possible rotaor cuff repair, 04/06/25 Medically optimized per PCP at 02/2025 visit. Re-eval 03/23/25 for COPD exac. Rx'd 5 days of prednisone and 5 days of lasix for some LE edema. T/C to patient 03/29/25 by PAT RN, pt states symptoms improved and LE edema minimal with compression stockings Pulmo optimized at 03/28/25 office visit Cardiac optimized at 02/2025 office visit. Pt follows [facility] Cardiology for venous insufficiency, htn, PAF (eliquis), HLD Follows [facility] renal for CKD/htn. Stable at 02/2025 Cough started 2 days ago. Product white phlegm. No fevers. No CP/SOB. Able to do ADL's. Limited activity with minimal walking AFib: eliquis COPD: sched rx BID, albuterol 1-3 days per week CE: No CPAP d/t noncompliance Vague c/o sore throat / ball sensation for ~5 years. Saw ENT, but pt unable to state findings of visit. Barium swallow and CT neck done 2022 without specific findings. DM: Does not check POC at home. A1C today PMFSH Active Problems Active Problems: All Active Problems Tear of left rotator cuff (Acute) Arthritis of left shoulder (Acute) Left shoulder tendonitis (Acute) CKD (chronic kidney disease) (Acute) Constipation (Acute) Asthma exacerbation (Acute) Acute exacerbation of chronic obstructive pulmonary disease (Acute) Pancreatic insufficiency (Acute) Abdominal bloating (Acute) Hepatic steatosis (Acute) Liver lesion (Acute) GERD (gastroesophageal reflux disease) (Acute) Afib (Acute) Hx of colonoscopy (Acute) Throat disorder (Acute) Bronchitis (Acute) Allergic rhinitis (Acute) COPD (chronic obstructive pulmonary disease) (Acute) CE (obstructive sleep apnea) (Acute) Obesity (BMI 30-39.9) (Acute) Past Medical History Medical History Asthma Ascending aorta dilatation Diabetes Hoarseness Dysphagia Colon cancer screening Throat disorder Bronchitis CHF (congestive heart failure) Afib Allergic rhinitis COPD (chronic obstructive pulmonary disease) CE (obstructive sleep apnea) Obesity (BMI 30-39.9) Hypothyroid Anxiety Palpitation HTN (hypertension) Family History Family History Family/Other No problems noted. Family history of problems with anesthesia: No Surgical History Surgical History Hx of umbilical hernia repair History of surgery on arm Hx of eye surgery Hx of colonoscopy Hx of knee surgery Hx of tonsillectomy History of Problems with Anesthesia: No Social History Social History (Updated 03/31/25 @ 09:17 by Too Arauz) Household Members: None Housing: Apartment Are you a primary hearing healthcare practitioner to a significant other at home: No Do you presently have visiting nurse or other home services: Yes ([employer] OR [employer]NA[employer]) Alcohol intake: former Patient Tobacco Use Status: Former Tobacco user Tobacco use type: Cigarette Advance Directives Date on File: 08/11/23 service: No Current occupational status: disabled Current occupation: right hand dominant Meds Allergies Allergy/AdvReac Type Severity Reaction Status Date / Time Iodinated Contrast Media Allergy Intermediate HIVES (X1 Verified 03/31/25 09:16 (CONTRAST, IV) occurrence only) kiwi (KIWI) Allergy Intermediate THROAT Verified 03/31/25 09:16 SWELLING Home Medications ?Medication ?Instructions ?Recorded ?Confirmed ?Last Taken ?Type apixaban 5 mg tablet 5 mg PO BID 05/24/20 03/28/25 01/30/25 History cholecalciferol (vitamin D3) 50 50 mcg PO DAILY 05/24/20 03/28/25 08/08/23 History mcg (2,000 unit) tablet clonazepam 1 mg tablet 1 mg PO BID PRN Anxiety 05/24/20 03/28/25 08/07/23 History hydroxyzine pamoate 25 mg capsule 25 mg PO BID PRN Anxiety 05/24/20 03/28/25 Unknown History levothyroxine 100 mcg tablet 100 mcg PO DAILY 05/24/20 03/28/25 08/08/23 History metoprolol succinate 200 mg 200 mg PO DAILY 05/24/20 03/28/25 08/08/23 History tablet,extended release 24 hr rosuvastatin 40 mg tablet 40 mg PO DAILY 05/24/20 03/28/25 08/08/23 History zolpidem 10 mg tablet 10 mg PO BEDTIME PRN Insomnia 05/24/20 03/28/25 Unknown History albuterol sulfate 2.5 mg/3 mL 3 mg inhalation QID PRN Shortness 03/20/21 03/28/25 Unknown History (0.083 %) solution for nebulization Of Breath Or Wheezing diclofenac sodium 1 % topical gel 2 g topical QID 08/08/23 03/28/25 08/08/23 History vitamin E (dl, acetate) 45 mg (100 45 mg PO DAILY 08/08/23 03/28/25 08/08/23 History unit) capsule metformin 500 mg tablet 500 mg PO BID 05/25/24 03/28/25 Unknown History hydrochlorothiazide 25 mg tablet 25 mg PO DAILY 09/15/24 03/28/25 Unknown History amlodipine 10 mg tablet 10 mg PO DAILY 01/20/25 03/28/25 Unknown History lisinopril 40 mg tablet 20 mg PO DAILY 03/01/25 03/28/25 Unknown History Exam Height,Weight and Vital Signs: Height 5 ft 6 in Weight 98 kg Last Vital Signs Pulse 85 03/23/25 09:40 Resp 20 03/23/25 09:40 BP 135/90 H 03/23/25 09:40 Pulse Ox 97 03/23/25 09:40 O2 Del Method Room Air 03/23/25 09:40 Pertinent Lab Results Pertinent Lab Results: Laboratory Tests 03/11/25 11:47 WBC 6.9 Hgb 14.5 Hct 44.1 Plt Count 222 D Sodium 142 Potassium 4.2 Chloride 105 Carbon Dioxide 28 BUN 10 Creatinine 1.33 Lab Results 03/23/25 Range/Units 10:37 Estimat Average Glucose 137 mg/dL Hemoglobin A1c % 6.4 H (<6.0) % Narrative Narrative: EKG 02/2025 Afib @ 81 ECHO 09/2024 1. LV size is nml. Mild conc LVH. Overall LV sys function is nml with an EF 55-60%. Cannot assess diastolic d/t afib. Septal E/e' ratio normal suggesting nml LA pressures. No evidence of WMA. 2. LA mildly dilated 3. RV is nml in size with nml sys function 4. Mild tricuspid regurg present 5. No evidence of pulmo htn. 6. No pericardial effusion 7. Aortic root dilated @ 38mm Chest CTA 02/2025 IMPRESSION: 1. Dilation of the ascending aorta up to 4.1 cm. No dissection or significant stenosis. Scattered atheromatous plaquing. 2. No acute pulmonary embolus. 3. Additional findings of chest, abdomen, and pelvis as noted. FL barium swallow 2022 IMPRESSION: Transient laryngeal penetration noted on thick barium, which was felt by the patient, and subsequently cleared with patient throat clearing. No gross aspiration in the subglottic region. No additional aspiration episode identified. Mild presbyesophagus. Esophagus otherwise normal. Remainder the examination is normal. CT soft tissue neck wo IV con 2022 IMPRESSION: 1. No specific cause for hoarseness identified. 2. No cervical lymphadenopathy. 3. Moderately extensive partially calcified atheromatous plaque at both carotid bulbs. Correlate for any bruits. 4. Noncalcified 2.5 mm right upper lobe pulmonary nodule. If this patient is not at elevated risk (no history of smoking or underlying malignancy), then no further followup for this is suggested on the basis of the current Fleischner criteria. If the patient is at elevated risk, then a followup CT the chest would be recommended in 12 months. Airway Mallampati Class: IV (small mouth opening) Neck ROM: Full Loose/Missing/Broken Teeth: Yes (missing except front lower - none loose or broken per patient) Heart: RRR Lungs: CTAB Assessment and Plan Assessment Anesthesia Assessment: Anesthesia Plan Discussed and PAT Visit Final Anesthetic Review Family History of Problems with Anesthesia: No History of Problems with Anesthesia: No
--- OUTSIDE RECORDS SUMMARY | 2025-06-02 07:51 | XMS_ITS | Encounter Summary ---
Author Organization [facility] Address [address] [place] [address] Phone Care Team Providers Care Photographic Equipment Assembler Name Role Phone Curt Richey MD Primary Care Provider + Encounter Details Date Type Department Care Team (Latest Contact Info) Description 12/24/2019 Ancillary [facility] [address] [place] [address] Curt Richey MD [address] [place] [address] [email or web address] Atrial fibrillation, unspecified type Social History Tobacco [...] type documented in this encounter Care Teams Photographic Equipment Assembler Relationship Specialty Start Date End Date Curt Richey MD [email or web address] PCP - General Cardiology 12/21/19 documented as of this encounter Additional Source Comments The information contained in this document represents components of the legal health record. It is not the complete legal health record.[facility]
--- OUTSIDE RECORDS SUMMARY | 2025-06-02 07:51 | XMS_ITS | Clinical Summary ---
Author Organization [facility] Address [address] [place] [address] [place] [phone] Phone Care Team Providers Care Service Parts Coordinator Name Role Phone Curt Richey MD [...] Medical Devices Not on file Insurance [address] [place] [id number] [facility] ONE [employer] MEDICARE REPLACEMENT [employer] [facility] MEDICARE REPLACEMENT MEDICARE REPLACEMENT CARE MEDICARE [place] [address] [place] [address] [employer] MEDICARE REPLACEMENT Care Teams Service Parts Coordinator Relationship Specialty Start Date End Date Curt Richey MD PCP - General Cardiology 12/21/19 Additional Source Comments The information contained in this document represents components of the legal health record. It is not the complete legal health record.[facility]
--- OUTSIDE RECORDS SUMMARY | 2025-06-02 07:51 | XMS_ITS | Encounter Summary ---
Author Organization [facility] Address [address] [place] [address] Phone Care Team Providers Care Livestock Buyer Name Role Phone Curt Richey MD Primary Care Provider + Encounter Details Date Type Department Care Team (Late st Contact Info) Description 12/24/2019 Ancillary Orders [facility] [address], [address] [place] [address] Curt Richey MD [address] [place] [address] Social History Tobacco Use Types Packs/Day Years [...] on filedocumented in this encounter Care Teams Livestock Buyer Relationship Specialty Start Date End Date Curt Richey MD PCP - General Cardiology 12/21/19 documented as of this encounter Additional Source Comments The information contained in this document represents components of the legal health record. It is not the complete legal health record.[facility]
--- OUTSIDE RECORDS SUMMARY | 2025-06-02 07:52 | XMS_ITS | Data Portability ---
Author Organization [employer] [facility], [facility] Address [address] [place] [address] Care Team Providers Care Computer Engineering Technologist Name Role Phone RONALDO RAZO Primary Care Provider HIM SUKH OTHER Assessment Encounter Date Assessment Date Assessment LastModified by Organization Details LastModified Time 04/21/2024 04/21/2024 I provided real -time medical direction via phone for this encounter and was available for additional phone-based assistance as needed. I have reviewed and agree with the Assessment and Plan as documented by the Disabilities Caregiver. Patient given the opportunity to ask questions. [...] pressure. No change in functional status. Per buggy operator on the scene, vital signs are [...] Assessment and Plan as documented by the Disabilities Caregiver. We discussed the diagnostic uncertainty of home [...] to call 911- verbalized understanding of instruction [email or web address] Not available 04/27/2024 20:25:46 09/27/2024 09/27/2024 Impression: [...] of any new or worsening serious symptoms [email or web address] Not available 09/27/2024 12:16:54 09/29/2024 09/29/2024 Impression: 68yo/m with pmhx as above presenting with 3-4 days of persistent respiratory symptoms. Patient states symptoms began 4 days ago, [facility] Evaluation at that time was [...] of any new or worsening serious symptoms [email or web address] Not available 09/29/2024 15:23:11 10/01/2024 10/01/2024 I provided real -time medical direction via phone for this encounter, and was available for additional phone based assistance as needed. I have reviewed and agree with the Assessment and Plan as documented by the Disabilities Caregiver. We discussed the diagnostic uncertainty of home visits and the risk associated with this.. The patient given the opportunity to ask questions. [email or web address] Not available 10/01/2024 21:44:54 Plan of Treatment Reminders Order Date Submit Date Provider Last Modified By Organization Details Last Modified Time Details Appointments None recorded. Lab BMP, serum or plasma 2024 025 [facility], [address] [place] [address], [id number] 20:26:25 rapid SARS CoV 2 Ag, QL IA, respiratory specimen [address], [id number] 13:07:32 rapid flu (A+B) 2024 025 [facility], [address] [place] [address], [address] 5 13:15:39 rapid SARS CoV 2 Ag, QL IA, respiratory specimen 2023 024 [email or web address] 0 [facility], [address] [place] [address], [address] 4 20:24:15 rapid flu (A+B) 2023 024 [email or web address] 0 [facility], [address] [place] [address], [address] 4 20:24:15 BMP, serum or plasma 2023 024 [email or web address] 0 [facility], [address] [place] [address], [address] 4 20:24:15 rapid flu (A+B) 2023 024 [email or web address] [facility], [address] [place] [address], [address] 4 10:38:31 rapid SARS CoV 2 Ag, QL IA, respiratory specimen 2023 024 [email or web address] [facility], [address] [place] [address], [address] [place] [address] 4 10:38:31 Referral None recorded. Procedures None recorded. Surgeries None recorded. Imaging electrocard iogram [address] [facility] - [facility], [address] [place] [address], [address] 5 21:51:19 electrocard iogram 2023 024 [email or web address] 0 [facility], [address] [place] [address], [address] 4 20:24:15 Medication Orders ipratropium 0.5 mg-albutero l 3 mg (2.5 mg base)/3 mL nebulizatio n soln 2024 025 [email or web address] 0 [facility]acy #2071, [address] [place], [address], 5 13:35:51 ipratropium 0.5 mg-albutero l 3 mg (2.5 mg base)/3 mL nebulizatio n soln 2024 025 [email or web address] [facility]armacy #2071, [address] [place], [address], 5 15:23:32 amoxicillin 875 mg-potassiu m clavulanate 125 mg tablet 2024 025 [facility]/Pharmacy #2071, [address] [place], [address], 5 15:23:55 prednisone 20 mg tablet 2024 025 [facility] [address] [place] [address], [address], 5 12:07:58 ipratropium 0.5 mg-albutero l 3 mg (2.5 mg base)/3 mL nebulizatio n soln 2024 025 [email or web address] 84 [facility]/Pharmacy #2071, [address] [place], [address], 5 12:07:56 albuterol sulfate 2.5 mg/3 mL (0.083 %) solution for nebulizatio n 2024 025 [facility]/Pharmacy #2071, [address] [place], [address], 5 12:07:59 fluticasone propionate 50 mcg/actuati on nasal spray,suspe nsion 2023 024 [facility]armacy #2071, [address] [place], [address], 4 12:56:56 Saline Nasal 0.65 % spray aerosol 2023 024 [facility]acy #2071, [address] [place], [address], 4 12:56:56 amoxicillin 500 mg capsule 2023 024 [facility]armacy #2071, [address] [place], [address], 4 12:56:55 sodium chloride 0.9 % intravenous solution 2023 024 [email or web address] 0 [facility]armacy #2071, [address] [place], [address], 4 20:24:15 prednisone 20 mg tablet 2023 024 [facility] [address] [place], [address], 4 10:38:33 prednisone 20 mg tablet 2023 [email or web address] [facility] [address] [place], [address], 4 10:38:31 Patient TargetsNo targets recorded. Patient [...] Not Available [facility] [address] [place] [address], [address] 04/21/2024 10:37:26 04/21/20 24 04/21/2024 rapid flu (A+B) Flu negati ve Not Available [facility] [address] [place] [address], [address] 04/21/2024 10:37:25 04/27/20 24 04/27/2024 rapid flu (A+B) Flu negati ve Not Available [facility] [address] [place] [address], [address] 04/27/2024 12:57:09 04/27/20 24 04/27/2024 rapid SARS CoV 2 Ag, QL IA, respi rator y speci men rapid SARS CoV 2 Ag, QL IA, respiratory specimen negati ve Not Available [facility] ed [address] [place] [address], [address] 04/27/2024 12:57:08 09/28/19 25 09/27/2024 rapid flu (A+B) Flu negati ve Not Available [facility] ed [address] [place] [address], [address] 09/27/2024 12:06:07 09/28/19 25 09/27/2024 rapid SARS CoV 2 Ag, QL IA, respi rator y speci men rapid SARS CoV 2 Ag, QL IA, respiratory specimen negati ve Not Available [facility] ed [address] [place] [address], [address] 09/27/2024 12:06:06 03/31/20 24 03/31/2024 elect rocar diogr am No observ ation record ed. [email or web address] [facility] - [address], [address] 03/31/2024 18:36:06 04/27/20 24 04/27/2024 elect rocar diogr am No observ ation record ed. [email or web address] [facility] - [address], [address] 04/27/2024 20:22:51 10/02/19 25 10/01/2024 elect rocar diogr am No observ ation record ed. [email or web address] [address], [address] 10/01/2024 20:26:07 Result Notes None recorded. Medical Equipment None Reported. Allergies Allergen ID Allergen Name Allergen Category Reaction Reaction Severity Criticality Documentation Date Start Date Code Code System Note Provider Name and Address Organization Details Recorded Time 51007 Iodinated contrast media (substanc e) medicatio n Not available Not available Not available 09/29/2024 49319 2003 SNOMED Not Available [facility] - production [...] Available Not Available N ot Available FreeStyle [place] Lite kit USE TO TEST BLOOD SUGAR [...] [degF] 97 % 150/90 mm[Hg] Not Available ERUCES 15:07:54 Date Recorded Body height Body mass index (BMI) Body weight Provider Name and Address Organization Details Last Updated DateTime 10/01/2024 162.56 cm 36 kg/m2 76196.4 g Davina Garner MD [address] [place] [address], [address] 10/01/2024 13:25:45 Date Recorded Oxygen saturation Heart rate Body temperature Respiratory rate Systolic And Diastolic Provider Name and Address Organization Details Last Updated DateTime 5 97 % 76 /min 97.6 [degF] 20 /min 118/60 mm[Hg] Not Available ERUCES 13:23:31 Date Recorded Body height Body mass index (BMI) Body weight Provider Name and Address Organization Details Last Updated DateTime 04/27/2024 162.56 cm 33.5 kg/m2 23070.51 g Davina Garner MD [address] [place] [address],[address] [place] [address], [address] 04/27/2024 20:03:55 Date Recorded Oxygen saturation Body temperature Respiratory rate Heart rate Systolic And Diastolic Provider Name and Address Organization Details Last Updated DateTime 4 98 % 98.1 [degF] 20 /min 95 /min 150/100 mm[Hg] Not Available ERUCES 4 11:24:31 Social History None recorded. Functional Status None recorded. Mental Status None recorded. Family History Nothing Reported. Medical History No medical history recorded. Past Encounters Encounter ID Performer Location Encounter Start Date Encounter Closed Date Diagnosis/Indication Diagnosis SNOMED-CT Code Diagnosis ICD10 Code Diagnosis IMO Codes Diagnosis Note [id number] Allison Newman MD [address] [address] 04/11/2022 18:32:13 04/15/2022 15:46:34 Cough 92423996 R05.9 [id number] [facility] [address] [place] [phone] 01/07/2023 14:14:00 01/07/2023 22:56:53 Essential hypertension 03190507 I10 Patient exam is benign. Patient reassured/ his blood pressure is normal when taken with the medic cough. The medic measured the patient's blood pressure with his 5-year-old home machine and got 135/112 thus it is the patient's machine that is giving erroneous readingsNo te sent to [facility] to reach out to the live in caregiver to assist the patient in obtaining a new home blood pressure monitor. Advised to continue all his regular medication s and follow-up with his PCP as needed [id number] Davina Garner MD [facility] [address] [place] [id number] 01/08/2023 15:21:28 01/08/2023 23:59:09 Viral upper respiratory tract infection 922004592 J06.9 And viral pharyngiti s-advised to gargle [...] Sandra Bloom MD [facility] [address] [place] [id number] 06/23/2023 18:11:30 06/24/2023 10:34:59 Dizziness [id number] R42 [id number] Marlyn Casas MD [facility] [address] [place] [id number] 08/05/2023 10:57:00 08/05/2023 16:00:41 Asthma 154312343 J45.909 Exacerbati on of moderate persistent asthma 731267895 J45.41 [id number] Eric Israel MD [facility] [address] [place] [id number] 08/13/2023 12:51:38 08/13/2023 20:11:05 Acute exacerbation of chronic obstructive pulmonary disease 927001781 J44.1 The patient has a flare-up of his COPD. He will continue his current treatments . [id number] Eric Israel MD [facility] [address] [place] [phone] 11/14/2023 12:02:23 11/14/2023 21:31:15 Vertigo 694661828 R42 This 67-year-ol d male with a past history of vertigo developed mild vertigo today. He has taken Meclizine in the past with good relief. I ordered Meclizine 50 mg now. He will follow-up with his PCP if the vertigo persists. The patient agreed with this plan. [id number] Thomas Lyon MD [facility] [address] [place] [phone] 11/27/2023 21:44:10 11/28/2023 10:18:17 Headache 02614705 R51.9 [id number] Jeancarlos Gonsales MD [facility] [address] [place] [id number] 03/20/2024 14:41:13 03/22/2024 13:41:42 Orthostatic hypotension 00528633 I95.1 Atrial fibrillation 4943 6004 I48.91 [id number] HAN MARIE MD [facility] [address] [place] [id number] 03/31/2024 18:19:08 04/01/2024 11:10:35 Dizziness 031163687 R42 Evaluation in the field was performed by my buggy operator colleague, as noted above, I provided [...] , palpitatio ns or any other concerns. [id number] Marlyn Casas MD [facility] [address] [place] [id number] 04/21/2024 10:14:37 04/22/2024 00:16:20 Asthma-chronic obstructive pulmonary disease overlap syndrome [id number] 4388648 J44.9 Viral uppe r respiratory tract infection 223521238 J06.9 [id number] Davina Garner MD [facility] [address] [place] [id number] 04/27/2024 11:24:18 04/27/2024 22:19:18 Headache 26194785 R51.9 w/ dizziness- possibly sinusitisS lightly less [...] Tylenol max 3500 mg/day based on weight. [id number] Bladimir Ureña MD [facility] [address] [place] [id number] 09/27/2024 11:58:02 09/27/2024 18:16:19 Viral upper respiratory tract infection 596101239 J06.9 238115 Acute exac erbation of chronic obstructive pulmonary disease 229747114 J44.1 [id number] [id number] Bladimir Ureña MD [facility] [address] [place] [phone] 09/29/2024 15:07:52 09/29/2024 18:34:43 Persistent cough 173543033 R05.3 [id number] Davina Garner MD [facility] [address] [place] [id number] 10/01/2024 13:23:27 10/02/2024 14:08:40 Dyspnea 724666563 R06.02 80795 EKG reveals A-fib at 90 with biphasic [...] is agreeable. He request to go to [facility]. Report called to [facility] ED staff. Health Concerns Section Related Observation LastModified by Organization Detai ls LastModified Time None Recorded Concern Status LastModified by Organization Details LastModified Time None Recorded Advance Directives Directive None Recorded Payers Insurance Date Sequence Insurance Name Policy Number Policy Young Covered Member ID Young Member ID Guarantor Name 03/31/2024 1 [facility] - DOS PRIOR TO 2022 - DUAL ELIGIBLE (MEDICARE REPLACEMENT/AD VANTAGE - HMO) Min Arauz [id number] Min Arauz 09/27/2024 1 [facility] - DOS ON OR AFTER 2022 - DUAL ELIGIBLE - FPC OPTIONS AND ONE CARE (MEDICARE REPLACEMENT/AD VANTAGE - HMO) Min Arauz [id number] Min Arauz Notes Date Note Type Note [...] morning. Patient would like to be re-evaluated. Disabilities Caregiver Organization Information for Cheikh Mejia Legal Name: [employer]. Address: [address] [place] [address], Waiter/Waitress Informal: Parish Ruiz MD CLIA No.: [id number] Disabilities Caregiver POC Test Results from Cheikh Mejia EKG [...] ...................... ...................... ...................... ...................... ...................... ...................... ......... Disabilities Caregiver Note From Cheikh Mejia: Dispatched for the scheduled visit for the male patient with a headache. pt. was found alert and oriented x3 sitting in bed c/o of a severe headache from yesterday with dizziness upon sitting up. pt. noted he had been seen by on [facility] on the but could not [...] in all extremities -dcaptbtls -stroke scale findings. [facility] contacted and ordered COVID and FLU swab, BMP and orthostatic vital signs while sitting and standing in addition. 21 gauge butterfly LAC performed for BMP. all results forwarded and [facility] then ordered a 12 lead ekg and IV with 750 ml Normal Saline. IV established 18 gauge left forearm-normal saline IV drip 750 ml. all results forwarded to [facility] with changed after normal saline. [facility] noted she would send amoxicillin and Fluticasone and saline nasal spray to the patients pharmacy for possible nasal infection. red flag warnings discussed and noted to call 911 if headache or dizziness worsened any slurred speech, weakness, facial droop or syncope occurred. all times are approx.report completed by rob mejia. [facility] Lab Orders: rapid SARS CoV 2 Ag, QL IA, respiratory specimen: Performed ...................... ...................... ...................... ...................... ...................... ...................... ......... [facility] Consulted: Davina Garner ...................... ...................... ...................... ...................... ...................... ...................... ......... Disposition: FulfilledSEGMD: pat seen by [facility] on 04/21 and diagnosed with COPD [...] Kidney Disease, Obesity. Davina Garner MD [address] [facility],[address], [place], [address], [place] [employer] 04/27/2024 20:33:33 09/27/2024 text/html ROS as noted [...] seek emergency care. Jamie Del Rosario RN Disabilities Caregiver Organization Information for Brendan Howe [employer] Legal Name: [employer]. Address: [address] [place] [id number], Waiter/Waitress Informal: Parish Ruiz MD [facility] No.: [id number] Disabilities Caregiver POC Test Results from Brendan Howe - ALS Rapid influenza antigen (11:55:06) Flu: - Attachments uploaded as part of this test result can be found under Documents section. Rapid COVID antigen (11:55:07) COVID: - Attachments uploaded as part of this test result can be found under Documents section. ...................... ...................... ...................... ...................... ...................... ...................... ......... Disabilities Caregiver Note From Brendan Howe: Pt seen for [...] Covid & flu A/B POC all negative. [facility] contacted and advised of Pt complaint, presentation and exam findings. [facility] orders Duoneb updraft and will send prescription for PO Prednisone to Pt's pharmacy, Pt allergies confirmed. [facility] orders for Pt to use his home nebulizer tx Q4-6 hrs. Duoneb administered. Pt advised of all [facility] tx plan and recommendations. Pt understanding and agreeable to this. Pt has no further questions or concerns. Call closed. [facility] Lab Orders: rapid SARS CoV 2 Ag, QL IA, respiratory specimen: Performed rapid flu (A+B): Performed [facility] Medication Orders: ipratropium 0.5 mg-albuterol 3 mg (2.5 mg base)/3 mL nebulization soln: Administered ...................... ...................... ...................... ...................... ...................... ...................... ......... [facility] Consulted: Bladimir Ureña ...................... ...................... ...................... ...................... ...................... ...................... ......... Disposition: Fulfilled Bladimir Ureña MD [address] [place] [address],[address], [place], [address], [employer] 09/27/2024 12:32:54 09/29/2024 text/html ROS as noted in the HPI HPI: No laundry helper needed as this underwriter solicitation director speaks Yi. [place] this underwriter solicitation director is remote to triage below. Reports having sx of cough, intermittent SOB since Friday. Denies any CP. PT having intermittent wheezing. No fever. Pt having ST and runny nose. NO homekit for COVID-19. Pt alert, oriented. Speaking clearly with noted hoarseness. Pt offered our walk in center. Prefers [facility] referral. Confirmed Demographics and allergies. ...................... ...................... [...] ...................... ...................... ...................... ...................... ...................... ...................... ......... Disabilities Caregiver Note From Chavo Romero: SC12 dispatched to address listed above for the report of a male alliance party with breathing issues. Arrival on scene, [...] advised that he was visited by [facility] over 09/27 for same complaints, tested [...] etc. Patient vital signs obtained as noted. [facility] consulted, provided orders for a Duoneb treatment, advised he would send prescription for antibiotics to patient preferred pharmacy. Above DuoNeb treatment (3mg Albuterol and 0.5mg Ipratropium Mott) was administered without incident with reported improvement, six patient rights verified prior. Patient reported that he was feeling much better after nebulizer treatment, advised that he felt okay staying home. Patient advised to continue taking his nebulizer up to 4 times a day per [facility], Prednisone, and Antibiotics when he picks it up. Red flags were discussed with patient, advised to call 911 if he begins to experience life threatening symptoms. SC12 Clear. [facility] Medication Orders: ipratropium 0.5 mg-albuterol 3 mg (2.5 mg base)/3 mL nebulization soln: Administered ...................... ...................... ...................... ...................... ...................... ...................... ......... [facility] Consulted: Bladimir Ureña ...................... ...................... ...................... ...................... ...................... ...................... ......... Disposition: Fulfilled Bladimir Ureña MD [address] [facility],[address], [place], [address], [employer] 09/29/2024 17:30:47 10/01/2024 text/html ROS as noted in the HPI HPI: 68 y.o male complains of Breathing ProblemsDee from [facility] calling reporting patient is having SOB and reports difficulty with his asthma. Patient is Yi speaking primarily, laundry helper# [id number] used for triage assessment. Patient reports he [...] DisorderPMH Reviewed at 10/01/202416Allergies Reviewed at 10/01/2024:16 Disabilities Caregiver Organization Information for Romero Tony Legal Name: [employer]. 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 ...................... ...................... ...................... ...................... ...................... ......... Disabilities Caregiver Note From Romero Tony: SC12 dispatched to the address listed above for the report of a male alliance party with shortness of breath. Arrival on [...] that he has been visited by [facility] 2 separate times over the past week, prescribed Prednisone which he has been taking for 4 days and Augmentin which he has only been taking for a day. Patient reports symptoms management with Albuterol Nebulizer up to 4 times a day, last nebulizer about [address] [facility] arrival with reported improvement. Patient reports he begins to feel short of breath again within 20 minutes of finishing nebulizer treatment. Patient vital signs obtained as noted. [facility] consulted, provided orders for DuoNeb treatment, BMP, and 12 lead EKG. DuoNeb treatment administered with 3mg Albuterol/0.5mg Atrovent with reported improvement, six patient rights verified, [facility] noted patient began to experience labored breathing again shortly after finishing DuoNeb Treatment. Blood draw completed via 21 gauge butterfly needle in right forearm, removed at end of blood draw. ISTAT BMP performed as noted and [facility] 12 Lead EKG performed, uploaded to [facility] for remote interpretation. [facility] consulted again, recommended that patient go to the ED for imaging which patient agreed to. 911 called for patient, Maricel PEREZ arrival on scene shortly after. Patient report given to Maricel PEREZ and care was transferred. EMS assisted as needed until transport initiated. SC12 Clear. [facility] Lab Orders: BMP, serum or plasma: Performed [facility] Medication Orders: ipratropium 0.5 mg-albuterol 3 mg (2.5 mg base)/3 mL nebulization soln: Administered ...................... ...................... ...................... ...................... ...................... ...................... ......... [facility] Consulted: Davina Garner [...] No productive cough. Davina Garner MD [address] [facility],[address], [place], [address], [employer] 10/01/2024 21:50:38
--- OUTSIDE RECORDS SUMMARY | 2025-06-02 07:52 | XMS_ITS | Clinical Summary ---
Author Organization [facility] Address [address] [place] [address] Phone Care Team Providers Care Sales Office Assistant Name Role Phone Gemini Chavez MD [...] BLOOD SUGAR ONCE DAILY 5 Active FreeStyle Kincaid Lite monitoring kit USE TO TEST BLOOD [...] TEST BLOOD SUGAR ONCE DAILY 5 Active lisinopril (PRINIVIL,ZESTR IL) 40 mg tablet TOME 1 TABLETA POR V A ORAL TODOS LOS D EN LOW KUMAR Active Creon 36,000-114,000- 180,000 unit capsule,delayed [...] Encounters Date Type Department Care Team Description 05/25/2025 1:30 PM EST Office Visit Orthopedic Surgery - [address] [phone] Gallito Hancock DPM Acquired hammer toe of right foot (Primary Dx); Dermatophytosis of nail; Ingrowing nail; Type II diabetes mellitus with peripheral circulatory disorder (CMS/HCC V24, CMS/HCC V28); Pain in toe of right foot; Pain in toe of left foot; Diabetic mononeuropathy simplex (CMS/HCC V24, CMS/HCC V28); Hammer toe of left foot; Primary osteoarthritis of both feet from Last 3 Months Social History Tobacco [...] Care Team (Late st Contact Info) Description 08/23/2025 10:15 AM EDT Office Visit Orthopedic Surgery - [place] [address] [facility] [address] [place] [address] Gallito Hancock, DPHollis [address] [address] Health Maintenance Due Date Last Done Comments Colorectal Cancer Screening: Colonoscopy 1955 Drug Screen 1955 Non-Opioid Controlled Substance Agreement 1955 Diabetes: Annual Foot Exam 11/18/1965 Diabetes: Annual Retina Eye Exam 11/18/1965 Hepatitis A Vaccines (1 of 2 - Risk 2-dose series) 11/18/1974 Hepatitis B Vaccines (1 of 3 - Risk 3-dose series) 2015 Abdominal Aortic Aneurysm (AAA) Screen 06/06/2023 Falls Risk Assessment 06/06/2023 Hepatitis C Screening 06/06/2023 Social Influencers of Health Screening 06/06/2023 Zoster Vaccines (2 of 2) 02/21/2025 12/27/2024 Depression Screening 05/12/2025 Diabetes: Annual Urine Albumin-Creatinine Ratio (uACR) 05/25/2025 Diabetes: Blood Sugar Control Test (HGBA1C) 09/20/2025 03/23/2025, 03/23/2025, 11/29/2024, Additional history exists COVID-19 Vaccine ( season) 2025 04/28/2025, 02/11/2024, 02/06/2023, Additional history exists Diabetes: Annual GFR (Glomerular Filtration Rate) 03/11/2026 03/11/2025, 02/21/2025, 01/20/2025, Additional history exists Hypertension/CHF/CAD Annual BMP Blood Test 03/11/2026 03/11/2025, 02/21/2025, 01/20/2025, Additional history exists Cholesterol Screening (Lipid Panel) [...] Group ID:[id number] Type:Not on file Address: [address] [place] [id number] Care Teams Sales Office Assistant Relationship Specialty Start Date End Date Barciona Chung, Christianne, MD [address] [id number] PCP - General 04/24/23
== END 2025-03-23 00:01 | disposition home or self-care (01) ==
LOC: HO.PAT
PROVIDERS: Nurse Practitioner; PCP Internal Medicine; Visit Provider Orthopaedic Surgery
DX: M75.102 Unspecified rotator cuff tear or rupture of left shoulder, not specified as traumatic (principal); Z13.1 Encounter for screening for diabetes mellitus
CPT/HCPCS: 36415; 83036

== ENCOUNTER 2025-03-28 11:05 | Outpatient (AMB) | payer OTHER, SELFPAY ==
--- NOTE | 2025-03-28 11:13 | A.OFFVIS_ITS ---
Vital Signs 03/28/25 11:14 Height 5 ft 6 in Weight 214 lb 15.211 oz BMI 34.7 BP 110/82 Blood Pressure Location Lt brachial Position Sitting Pulse 102 H Pulse Source Pulse Oximeter Pulse Oximetry (%) 98 Oxygen Delivery Method Room Air Intake Visit Reasons: Pre-operative H&P Intake Note: pt is here for pre-op clearance for shoulder surgery 04/06/25. he states he has an issue with his throat affecting his voice, come coughing, Lab Aid Required: Yes Lab Aid Services: Lab Aid Present Lab Aid Name: Alexandra (OA) pulmonary Allergies Iodinated Contrast Media (CONTRAST, IV) Allergy (Intermediate, Verified 03/28/25 11:36) HIVES (X1 occurrence only) kiwi (KIWI) Allergy (Intermediate, Verified 03/28/25 11:36) THROAT SWELLING Medication List - Last Reconciled 03/28/25 by Curt Marroquin MD albuterol sulfate 3 mg inhalation QID PRN albuterol sulfate 90 mcg/actuation (Ventolin HFA) 2 puffs PO Q6H PRN amlodipine 10 mg PO DAILY apixaban 5 mg PO BID cholecalciferol (vitamin D3) 50 mcg PO DAILY clonazepam 1 mg PO BID PRN diclofenac sodium 1% 2 grams topical QID epinephrine (EpiPen 2-Blaise) 0.3 mg (0.3 mL) IM Q4H PRN fluticasone propion-salmeterol 250-50 mcg/dose (Wixela Inhub) 1 inh inhalation BID hydrochlorothiazide 25 mg PO DAILY hydroxyzine pamoate 25 mg PO BID PRN L.acidoph,saliva-B.bif-S.therm 175 mg (Acidophilus Probiotic Blend) 1 cap PO DAILY levothyroxine 100 mcg PO DAILY mptmir-ovjbhmht-nnserfg (pork) 36,000-114,000- 180,000 unit (Creon) 2 caps PO BID lisinopril 20 mg PO DAILY metformin 500 mg PO BID metoprolol succinate ER 200 mg PO DAILY oxycodone 5 mg PO Q8H PRN pantoprazole 40 mg PO DAILY rosuvastatin 40 mg PO DAILY sennosides (Senna Laxative) 17.2 mg (2 x 8.6 mg) PO BEDTIME simethicone 180 mg PO QID 30 days sucralfate (Carafate) 1 g PO BID 2 weeks tramadol 50 mg PO BEDTIME 7 days vitamin E (dl, acetate) 45 mg PO DAILY zolpidem 10 mg PO BEDTIME PRN Do you need a note to return to daycare/school/sports/work: No HPI HPI Pre-operative H&P: Details: THIS 69 YEARS OLD VERY PLEASANT, 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 HE IS GROSSLY OBESE AND DOES HAVE OBSTRUCTIVE SLEEP APNEA, BUT HE IS NOT ABLE TO USE THE CPAP. HE CLAIMS THAT HE SLEEPS OKAY AND DOES NOT WANT TO CONSIDER BEING RETESTED FOR SLEEP APNEA OR TREATMENT WITH THE CPAP. HE DOES HAVE MILD SYMPTOMS OF ASTHMA/COPD. WITH MILD INTERMITTENT COUGH. HE USES WIXELA 250-50 B.I.D. HARDLY NEEDS TO USE ALBUTEROL. HE HAS HAD NO RESPIRATORY INFECTION OR ANY. ACUTE EXACERBATION TODAY HIS MAIN COMPLAINT IS ONGOING PAINFUL RIGHT SHOULDER FOR WHICH HE NEEDS SURGICAL INTERVENTION AND HE WOULD LIKE TO GET PULMONARY CLEARANCE. PATIENT IS NONSMOKER FOR MORE THAN 5 YEARS AND DOES HAVE HISTORY OF SMOKING IN THE PAST. [facility] Medical History Asthma Ascending aorta dilatation Diabetes Hoarseness Dysphagia Colon cancer screening Throat disorder Bronchitis CHF (congestive heart failure) Afib Allergic rhinitis COPD (chronic obstructive pulmonary disease) CE (obstructive sleep apnea) Obesity (BMI 30-39.9) Hypothyroid Anxiety Palpitation HTN (hypertension) Surgical History Hx of umbilical hernia repair History of surgery on arm Hx of eye surgery Hx of colonoscopy Hx of knee surgery Hx of tonsillectomy Family History Family/Other No problems noted. Social History Household Members: None Housing: Apartment Are you a primary family day carer to a significant other at home: No Do you presently have visiting nurse or other home services: Yes ([employer]) Alcohol intake: former Patient Tobacco Use Status: Former Tobacco user Tobacco use type: Cigarette Advance Directives Date on File: 08/11/23 service: No Review of Systems Const All systems reviewed & are unremarkable except as noted in HPI and below Eyes Reports no additional complaints ENT Reports nasal congestion (Mild intermittent) Card Denies chest pain, Reports irregular heart rhythm (Atrial fib) and Denies leg edema Resp Reports as per HPI GI Reports no additional complaints Reports no additional complaints Musc Reports abnormal gait (Uses cane), Reports back pain and Reports arthralgias Skin/Breast Reports system reviewed and no additional complaints, except as documented Neuro Reports no additional complaints and Reports abnormal gait (Uses cane) Psych Reports no additional complaints Physical Exam Vital Signs: Last Vital Signs Pulse 102 H 03/28/25 11:14 BP 110/82 03/28/25 11:14 Pulse Ox 98 03/28/25 11:14 Oxygen Delivery Method Room Air 03/28/25 11:14 BMI result Body Mass Index 34.7 Const General: comfortable, no acute distress, alert and awake Orientation/consciousness: patient oriented x3 HEENT Head: Yes normal to inspection General nose exam: No nasal polyps present and No nasal discharge present Face and sinus: Yes sinuses nontender Mouth: oropharynx normal Throat: Yes posterior oropharynx normal Eyes General: appearance normal, both eyes and all related structures Neck Neck: Yes normal visual inspection, Yes no lymphadenopathy, Yes trachea midline and Yes no JVD Thyroid: Thyroid normal Chest Chest palpation & inspection: normal inspection of the chest, normal palpation of entire chest wall and no tenderness Resp Other: Percussion note is resonant, breath sounds are distant with prolonged expiratory phase. No wheezes or rhonchi are heard. Cardio Palpation: normal PMI Rate: regular rate Rhythm: regular rhythm Heart sounds: no gallops and no murmurs GI Inspection: Yes other (Abdomen is obese and protuberant) Palpation (GI): Soft to palpation, nontender, No hepatosplenomegaly present and no masses Auscultation: normal bowel sounds Back/Spine/Pelvis Thoracic/Lumbar Spine: thoracic and lumbar spine normal to inspection and thoraco-lumbar ROM limited Skin General skin exam: no rashes or lesions noted Neuro General: patient oriented x3 and no focal motor deficits Cranial nerves: Yes CN's II-XII intact bilaterally Extrem General: Yes normal to inspection, Yes no clubbing, cyanosis or edema and Yes no calf tenderness Psych Appearance: grossly normal and well kempt Speech and movement: Normal speech and movement present Office Procedures Spirometry Testing Spirometry Comments: In office spirometry completed with results given to Dr Marroquin. [id number]- Spirometry Results Reviewed Results Reviewed: SPIROMETRY in office FVC = 89 % FEV1 = 90 % [id number] = 109 Assessment & Plan Assessment & Plan (1) COPD (chronic obstructive pulmonary disease): Comment: Nekx-qu-iztefvdh ASTHMA/COPD . CLINICALLY WELL CONTROLLED AT THIS TIME. DOES NOT NEED TO USE ALBUTEROL FREQUENTLY. USING WIXELA 250-50 ONLY ONCE A DAY Code(s): J44.9 - Chronic obstructive pulmonary disease, unspecified Category: Medical Plan: EXPLAINED THE FINDINGS OF SPIROMETRY. I REASSURED HIM THAT HIS BREATHING IS UNDER GOOD CONTROL. CONTINUE USING WIXELA 250-51 INHALATION DAILY IN THE MORNING AND. INCREASED TO TWICE A DAY WITH SYMPTOMS GET ANY WORSE USE ALBUTEROL HFA( VENTOLIN) Q 4 HOURS ONLY PRN (2) CE (obstructive sleep apnea): Comment: He does have CE but was not able to use CPAP . He lost his machine because of noncompliance. He claims that he sleeps okay, wakes up a few times due to pain in the shoulders and back. He is not going to be able to use the CPAP. Has not lost any weight, . Which is not expected anyway. Denies any excessive daytime sleepiness. Code(s): G47.33 - Obstructive sleep apnea (adult) (pediatric) Category: Medical Plan: As noted above he is not interested in being retested and would not use the CPAP anyway Plan * PREOP CLEARANCE FOR FORTHCOMING SURGERY/LEFT SHOULDER FROM PULMONARY POINT OF VIEW THERE IS NO CONTRAINDICATION, POSTOPERATIVELY HE WILL NEED TO BE WATCHED CLOSELY. HE MAY EXHIBIT SOME APNEAS/HYPOPNEAS POSTOPERATIVELY. IF HE HAS ANY HYPOXEMIA HE CAN BE TREATED WITH OXYGEN SUPPLEMENTATION. IF ANY WHEEZING NO RESPIRATORY DISTRESS THEN HE SHOULD BE TREATED WITH IPRATROPIUM-ALBUTEROL SOLUTION IN THE NEBULIZER Q.4 HOURS PRN. Orders: Orders AMB Spirometry Testing Today J44.9 - Chronic obstructive pulmonary disease, unspecified Coding Level of Care Code Est Pt Level 3 (77041) Diagnoses COPD (chronic obstructive pulmonary disease) J44.9 CE (obstructive sleep apnea) G47.33 CPT Codes Spirometry - CPT: 79151- Spirometry ([id number])
[2025-03-28 11:14] VITALS: BP 110/82; PULSE 102; O2SAT 98; BMI 34.7
--- OUTSIDE RECORDS SUMMARY | 2025-03-28 23:04 | XMS_ITS | Data Portability ---
Author Organization [email or web address] [facility], [facility] Address [address] [place] [address] Care Team Providers Care Crap Shooter Name Role Phone RONALDO ARZO Primary Care Provider [phone] HIM SUKH OTHER Assessment Encounter Date Assessment Date Assessment LastModified by Organization Details LastModified Time 04/21/2024 04/21/2024 I provided real -time medical direction via phone for this encounter and was available for additional phone-based assistance as needed. I have reviewed and agree with the Assessment and Plan as documented by the Software Sales Manager. Patient given the opportunity to ask [...] No change in functional status. Per oracle erp developer on the scene, vital signs are stable [...] Assessment and Plan as documented by the Software Sales Manager. We discussed the diagnostic uncertainty of [...] to call 911- verbalized understanding of instruction [email or web address] Not available 04/27/2024 20:25:46 09/27/2024 09/27/2024 Impression: [...] of any new or worsening serious symptoms [email or web address] Not available 09/27/2024 12:16:54 09/29/2024 09/29/2024 Impression: 68yo/m with pmhx as above presenting with 3-4 days of persistent respiratory symptoms. Patient states symptoms began 4 days ago, [facility] Evaluation at that time was [...] of any new or worsening serious symptoms [email or web address] Not available 09/29/2024 15:23:11 10/01/2024 10/01/2024 I provided real -time medical direction via phone for this encounter, and was available for additional phone based assistance as needed. I have reviewed and agree with the Assessment and Plan as documented by the Software Sales Manager. We discussed the diagnostic uncertainty of home visits and the risk associated with this.. The patient given the opportunity to ask questions. [email or web address] Not available 10/01/2024 21:44:54 Plan of Treatment Reminders Order Date Submit Date Provider Last Modified By Organization Details Last Modified Time Details Appointments None recorded. Lab BMP, serum or plasma 2024 025 [facility], [address] [place] [address], [id number] 20:26:25 rapid SARS CoV 2 Ag, QL IA, respiratory specimen [address], [phone] 13:07:32 rapid flu (A+B) 2024 025 [facility], [address] [place] [address], [id number] 5 13:15:39 rapid SARS CoV 2 Ag, QL IA, respiratory specimen 2023 024 [email or web address] 0 [facility], [address] [place] [address], [id number] 4 20:24:15 rapid flu (A+B) 2023 024 [email or web address] 0 [facility], [address] [place] [address], [address] 4 20:24:15 BMP, serum or plasma 2023 024 [email or web address] 0 [facility], [address] [place] [address], [address] [place] [address] 4 20:24:15 rapid flu (A+B) 2023 024 [email or web address] [facility], [address] [place] [address], [address] 4 10:38:31 rapid SARS CoV 2 Ag, QL IA, respiratory specimen 2023 024 [email or web address] [facility], [address] [place] [address], [address] [place] [address] 4 10:38:31 Referral None recorded. Procedures None recorded. Surgeries None recorded. Imaging electrocard iogram 2024 025 [facility], [address] [place] [address], [id number] 5 21:51:19 electrocard iogram 2023 024 [email or web address] 0 [facility], [address] [place] [address], [id number] 4 20:24:15 Medication Orders ipratropium 0.5 mg-albutero l 3 mg (2.5 mg base)/3 mL nebulizatio n soln 2024 025 [email or web address] 0 [facility], [address] [place], [address], 5 13:35:51 ipratropium 0.5 mg-albutero l 3 mg (2.5 mg base)/3 mL nebulizatio n soln 2024 025 [email or web address] [facility], [address] [place], [address], 5 15:23:32 amoxicillin 875 mg-potassiu m clavulanate 125 [address] tablet [address] [facility] #2071, [address] [place], [address], 5 15:23:55 prednisone 20 mg tablet 2024 025 [facility] [address] [place] [address], [address], 5 12:07:58 ipratropium 0.5 mg-albutero l 3 mg (2.5 mg base)/3 mL nebulizatio n soln 2024 025 [email or web address] 84 [facility], [address] [place], [address], 5 12:07:56 albuterol sulfate 2.5 mg/3 mL (0.083 %) solution for nebulizatio n [address] [facility]2071, [address] [place], [address], 5 12:07:59 fluticasone propionate 50 mcg/actuati on nasal spray,suspe nsion [address] [facility]2071, [address] [place], [address], 4 12:56:56 Saline Nasal 0.65 % spray aerosol 2023 024 [facility], [address] [place], [address], 4 12:56:56 amoxicillin 500 [address] capsule [address] [facility]20[facility], [address] [place], [address], 4 12:56:55 sodium chloride 0.9 % intravenous solution 2023 024 [email or web address] 0 [facility]20[facility], [address] [place], [address], 4 20:24:15 prednisone 20 mg tablet 2023 024 [facility] [address] [place], [address], 4 10:38:33 prednisone 20 mg tablet 2023 [email or web address] [facility] [address] [place], [address], 4 10:38:31 Patient TargetsNo targets recorded. Patient [...] ve Not Available [facility] [address] [place] [address], [id number] 04/21/2024 10:37:26 04/21/20 24 04/21/2024 rapid flu (A+B) Flu negati ve Not Available [facility] [address] [place] [address], [phone] 04/21/2024 10:37:25 04/27/20 24 04/27/2024 rapid flu (A+B) Flu negati ve Not Available [facility] [address] [place] [address], [address] 04/27/2024 12:57:09 04/27/20 24 04/27/2024 rapid SARS CoV 2 Ag, QL IA, respi rator y speci men rapid SARS CoV 2 Ag, QL IA, respiratory specimen negati ve Not Available [facility] ed [address] [place] [address], [address] 04/27/2024 12:57:08 09/28/19 25 09/27/2024 rapid flu (A+B) Flu negati ve Not Available [facility] ed [address] [place] [address], [address] 09/27/2024 12:06:07 09/28/19 25 09/27/2024 rapid SARS CoV 2 Ag, QL IA, respi rator y speci men rapid SARS CoV 2 Ag, QL IA, respiratory specimen negati ve Not Available [facility] ed [address] [place] [address], [address] 09/27/2024 12:06:06 03/31/20 24 03/31/2024 elect rocar diogr am No observ ation record ed. [email or web address] [facility] - [address], [address] 03/31/2024 18:36:06 04/27/20 24 04/27/2024 elect rocar diogr am No observ ation record ed. [email or web address] [facility] - [address], [address] 04/27/2024 20:22:51 10/02/19 25 10/01/2024 elect rocar diogr am No observ ation record ed. [email or web address] [address], [address] 10/01/2024 20:26:07 Result Notes None recorded. Medical Equipment None Reported. Allergies Allergen ID Allergen Name Allergen Category Reaction Reaction Severity Criticality Documentation Date Start Date Code Code System Note Provider Name and Address Organization Details Recorded Time 49585 Iodinated contrast media (substanc e) medicatio n Not available Not available Not available 09/29/2024 57469 2003 SNOMED Not Available [facility] - production [...] Available Not Available N ot Available FreeStyle Emerson Lite kit USE TO TEST BLOOD SUGAR [...] % 97 % 150/90 mm[Hg] Not Available [employer] 15:07:54 Date Recorded Body height Body mass index (BMI) Body weight Provider Name and Address Organization Details Last Updated DateTime 10/01/2024 162.56 cm 36 kg/m2 86005.4 g Davina Garner MD [address] [place] [address],[address] [place], [address], Rixty 10/01/2024 13:25:45 Date Recorded Oxygen saturation Oxygen saturation in Arterial blood by Pulse oximetry Heart rate Body temperature Respiratory rate Systolic And Diastolic Provider Name and Address Organization Details Last Updated DateTime 97 % 97 % 76 /min 97.6 [degF] 20 /min 118/60 mm[Hg] Not Available [employer] 13:23:31 Date Recorded Body height Body mass index (BMI) Body weight Provider Name and Address Organization Details Last Updated DateTime 04/27/2024 162.56 cm 33.5 kg/m2 59357.51 g Davina Garner MD [address] [place] [address],[address] [place] [address], [id number] 04/27/2024 20:03:55 Date Recorded Oxygen saturation Oxygen saturation in Arterial blood by Pulse oximetry Body temperature Respiratory rate Heart rate Systolic And Diastolic Provider Name and Address Organization Details Last Updated DateTime 98 % 98 % 98.1 [degF] 20 /min 95 /min 150/100 mm[Hg] Not Available [employer] 11:24:31 Social History None recorded. Functional Status None recorded. Mental Status None recorded. Family History Nothing Reported. Medical History No medical history recorded. Past Encounters Encounter ID Performer Location Encounter Start Date Encounter Closed Date Diagnosis/Indication Diagnosis SNOMED-CT Code Diagnosis ICD10 Code Diagnosis IMO Codes Diagnosis Note [id number] [facility] [address] [place] [address] 04/11/2022 18:32:13 04/15/2022 15:46:34 Cough 29827442 R05.9 [id number] Davina Garner MD [facility] [address] [place] [id number] 01/07/2023 14:14:00 01/07/2023 22:56:53 Essential hypertension 70678988 I10 Patient exam is benign. Patient reassured/ his blood pressure is normal when taken with the medic cough. The medic measured the patient's blood pressure with his 5-year-old home machine and got 135/112 thus it is the patient's machine that is giving erroneous readingsNo te sent to [facility] to reach out to the care worker to assist the patient in obtaining a new home blood pressure monitor. Advised to continue all his regular medication s and follow-up with his PCP as needed [id number] Davina Garner MD [facility] [address] [place] [id number] 01/08/2023 15:21:28 01/08/2023 23:59:09 Viral upper respiratory tract infection 593198927 J06.9 And viral pharyngiti s-advised to gargle [...] pcp. Sandra Bloom MD [facility] [address] [place] [id number] 06/23/2023 18:11:30 06/24/2023 10:34:59 Dizziness 614004681 R42 [id number] Marlyn Casas MD [facility] [address] [place] [id number] 08/05/2023 10:57:00 08/05/2023 16:00:41 Asthma 273382383 J45.909 Exacerbati on of moderate persistent asthma 370615062 J45.41 [id number] Eric Israel MD [facility] [address] [place] [address] 08/13/2023 12:51:38 08/13/2023 20:11:05 Acute exacerbation of chronic obstructive pulmonary disease 024145118 J44.1 The patient has a flare-up of his COPD. He will continue his current treatments . [id number] Eric Israel MD [facility] [address] [place] [phone] 11/14/2023 12:02:23 11/14/2023 21:31:15 Vertigo 297669413 R42 This 67-year-ol d male with a past history of vertigo developed mild vertigo today. He has taken Meclizine in the past with good relief. I ordered Meclizine 50 mg now. He will follow-up with his PCP if the vertigo persists. The patient agreed with this plan. [id number] Thomas Lyon MD [facility] [address] [place] [id number] 11/27/2023 21:44:10 11/28/2023 10:18:17 Headache 66048636 R51.9 [id number] Jeancarlos Gonsales MD [facility] - [address] [phone] 03/20/2024 14:41:13 03/22/2024 13:41:42 Orthostatic hypotension 95772666 I95.1 Atrial fibrillation 4943 6004 I48.91 [id number] HAN MARIE MD [facility] [address] [place] [id number] 03/31/2024 18:19:08 04/01/2024 11:10:35 Dizziness 665275755 R42 Evaluation in the field was performed by my oracle erp developer colleague, as noted above, I provided real-time [...] , palpitatio ns or any other concerns. [id number] Marlyn Casas MD [facility] [address] [place] [id number] 04/21/2024 10:14:37 04/22/2024 00:16:20 Asthma-chronic obstructive pulmonary disease overlap syndrome [id number] 0995964 J44.9 Viral uppe r respiratory tract infection 790985450 J06.9 [id number] Davina Garner MD [facility] [address] [place] [id number] 04/27/2024 11:24:18 04/27/2024 22:19:18 Headache 74463234 R51.9 w/ dizziness- possibly sinusitisS lightly less [...] Tylenol max 3500 mg/day based on weight. [id number] Bladimir Ureña MD [facility] [address] [place] [address] 09/27/2024 11:58:02 09/27/2024 18:16:19 Viral upper respiratory tract infection 300553324 J06.9 795925 Acute exac erbation of chronic obstructive pulmonary disease 633321049 J44.1 241241 [id number] Bladimir Ureña MD [facility] [address] [place] [id number] 09/29/2024 15:07:52 09/29/2024 18:34:43 Persistent cough 977324113 R05.3 [id number] [id number] Davina Garner MD [facility] [address] [place] [id number] 10/01/2024 13:23:27 10/02/2024 14:08:40 Dyspnea 853432212 R06.02 91136 EKG reveals A-fib at 90 with biphasic [...] is agreeable. He request to go to [place]. Report called to [place] ED staff. Health Concerns Section Related Observation LastModified by Organization Detai ls LastModified Time None Recorded Concern Status LastModified by Organization Details LastModified Time None Recorded Advance Directives Directive None Recorded Payers Insurance Date Sequence Insurance Name Policy Number Policy Young Covered Member ID Young Member ID Guarantor Name 03/31/2024 1 [facility] - DOS PRIOR TO 2022 - DUAL ELIGIBLE (MEDICARE REPLACEMENT/AD VANTAGE - HMO) Min Davonte [id number] Min Arauz 09/27/2024 1 [facility] - DOS ON OR AFTER 2022 - DUAL ELIGIBLE - JAIL OPTIONS AND ONE CARE (MEDICARE REPLACEMENT/AD VANTAGE - HMO) Min Davonte [id number] Min Davonte Notes Date Note Type Note [...] morning. Patient would like to be re-evaluated. Software Sales Manager Organization Information for Cheikh Mejia Legal Name: [employer]. Address: [address] [place] [address], Animal Caretaker: Parish Ruiz MD CLIA No.: [id number] Software Sales Manager POC Test Results from Cheikh Mejia CHRIS [...] ...................... ...................... ...................... ...................... ...................... ...................... ......... Software Sales Manager Note From Cheikh Mejia: Dispatched for the scheduled visit for the male patient with a headache. pt. was found alert and oriented x3 sitting in bed c/o of a severe headache from yesterday with dizziness upon sitting up. pt. noted he had been seen by [facility] on the but could not remember [...] in all extremities -dcaptbtls -stroke scale findings. [facility] contacted and ordered COVID and FLU swab, BMP and orthostatic vital signs while sitting and standing in addition. 21 gauge butterfly LAC performed for BMP. all results forwarded and [facility] then ordered a 12 lead ekg and IV with 750 ml Normal Saline. IV established 18 gauge left forearm-normal saline IV drip 750 ml. all results forwarded to [facility] with changed after normal saline. [facility] noted she would send amoxicillin and Fluticasone and saline nasal spray to the patients pharmacy for possible nasal infection. red flag warnings discussed and noted to call 911 if headache or dizziness worsened any slurred speech, weakness, facial droop or syncope occurred. all times are approx.report completed by rob mejia. [facility] Lab Orders: rapid SARS CoV 2 Ag, QL IA, respiratory specimen: Performed ...................... ...................... ...................... ...................... ...................... ...................... ......... [facility] Consulted: Davina Garner ...................... ...................... ...................... ...................... ...................... ...................... ......... Disposition: FulfilledSEGMD: letty seen by [facility] on 04/21 and diagnosed with COPD exacerbation [...] Kidney Disease, Obesity. Davina Garner MD [address] [facility],[address], [place], [address], Rixty 04/27/2024 20:33:33 09/27/2024 text/html ROS as noted [...] seek emergency care. Jamie Del Rosario RN Software Sales Manager Organization Information for Brendan [employer] Legal Name: [employer]. Address: [address] [place] [address], Animal Caretaker: Parish CAUSEY No.: [id number] Software Sales Manager POC Test Results from Brendan Howe Rapid influenza antigen (11:55:06) Flu: - Attachments uploaded as part of this test result can be found under Documents section. Rapid COVID antigen (11:55:07) COVID: - Attachments uploaded as part of this test result can be found under Documents section. ...................... ...................... ...................... ...................... ...................... ...................... ......... Software Sales Manager Note From Brendan Howe: Pt seen for [...] Covid & flu A/B POC all negative. [facility] contacted and advised of Pt complaint, presentation and exam findings. [facility] orders Duoneb updraft and will send prescription for PO Prednisone to Pt's pharmacy, Pt allergies confirmed. [facility] orders for Pt to use his home nebulizer tx Q4-6 hrs. Duoneb administered. Pt advised of all [facility] tx plan and recommendations. Pt understanding and agreeable to this. Pt has no further questions or concerns. Call closed. [facility] Lab Orders: rapid SARS CoV 2 Ag, QL IA, respiratory specimen: Performed rapid flu (A+B): Performed [facility] Medication Orders: ipratropium 0.5 mg-albuterol 3 mg (2.5 mg base)/3 mL nebulization soln: Administered ...................... ...................... ...................... ...................... ...................... ...................... ......... [facility] Consulted: Bladimir Ureña ...................... ...................... ...................... ...................... ...................... ...................... ......... 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 Call returned to Min Cano via [employer] Steel Layout Worker as this song writer is remote to triage below. Reports [...] ...................... ...................... ...................... ...................... ...................... ...................... ......... Software Sales Manager Note From Romero Tony: SC12 dispatched to [...] Patient advised that he was visited by [facility] over 09/27 for same complaints, tested negative [...] etc. Patient vital signs obtained as noted. [facility] consulted, provided orders for a Duoneb treatment, advised he would send prescription for antibiotics to patient preferred pharmacy. Above DuoNeb treatment (3mg Albuterol and 0.5mg Ipratropium [place]) was administered without incident with reported improvement, six patient rights verified prior. Patient reported that he was feeling much better after nebulizer treatment, advised that he felt okay staying home. Patient advised to continue taking his nebulizer up to 4 times a day per [facility], Prednisone, and Antibiotics when he picks it up. Red flags were discussed with patient, advised to call 911 if he begins to experience life threatening symptoms. SC12 Clear. [facility] Medication Orders: ipratropium 0.5 mg-albuterol 3 mg (2.5 mg base)/3 mL nebulization soln: Administered ...................... ...................... ...................... ...................... ...................... ...................... ......... [facility] Consulted: Bladimir Ureña ...................... ...................... ...................... ...................... ...................... ...................... ......... Disposition: Fulfilled Baldimir Ureña MD [address] [facility],[address], [place], [address], Rixty 09/29/2024 17:30:47 10/01/2024 text/html ROS as noted in the HPI HPI: 68 y.o male complains of Breathing ProblemsDee from [facility] calling reporting patient is having SOB and reports difficulty with his asthma. Patient is English speaking primarily, jet handler# [id number] used for triage assessment. Patient reports he [...] DisorderPMH Reviewed at 10/01/202416Allergies Reviewed at 10/01/2024:16 Software Sales Manager Organization Information for Romero Tony Legal Name: [employer]. Address: [address] [place] [address], Animal Caretaker: Parish Ruiz MD [place] No.: [id number] Software Sales Manager POC Test Results from Romero Tony iSTAT [...] ...................... ...................... ...................... ...................... ...................... ...................... ......... Software Sales Manager Note From Romero Tony: SC12 dispatched to [...] reports that he has been visited by [facility] 2 separate times over the past week, prescribed Prednisone which he has been taking for 4 days and Augmentin which he has only been taking for a day. Patient reports symptoms management with Albuterol Nebulizer up to 4 times a day, last nebulizer about 20 minutes prior to [facility] arrival with reported improvement. Patient reports he begins to feel short of breath again within 20 minutes of finishing nebulizer treatment. Patient vital signs obtained as noted. [facility] consulted, provided orders for DuoNeb treatment, BMP, and 12 lead EKG. DuoNeb treatment administered with 3mg Albuterol/0.5mg Atrovent with reported improvement, six patient rights verified, [facility] noted patient began to experience labored breathing again shortly after finishing DuoNeb Treatment. Blood draw completed via 21 gauge butterfly needle in right forearm, removed at end of blood draw. ISTAT BMP performed as noted and uploaded to [facility]. 12 Lead EKG performed, uploaded to [facility] for remote interpretation. [facility] consulted again, recommended that patient go to the ED for imaging which patient agreed to. 911 called for patient, Mar[facility] arrival on scene shortly after. Patient report given to [facility] and care was transferred. EMS assisted as needed until transport initiated. SC12 Clear. [facility] Lab Orders: BMP, serum or plasma: Performed [facility] Medication Orders: ipratropium 0.5 mg-albuterol 3 mg (2.5 mg base)/3 mL nebulization soln: Administered ...................... ...................... ...................... ...................... ...................... ...................... ......... [facility] Consulted: Davina Garner ...................... ...................... ...................... ...................... [...] No productive cough. Davina Garner MD [address] [facility],[address], [place], [address], [place] - [employer], JANICE 10/01/2024 21:50:38
--- OUTSIDE RECORDS SUMMARY | 2025-03-28 23:05 | XMS_ITS | Clinical Summary ---
Author Organization [facility] Address [address] [place] [address] Phone Care Team Providers Care Slicing Machine Operator Name Role Phone Gemini Chavez [...] BLOOD SUGAR ONCE DAILY 5 Active FreeStyle [place] Lite monitoring kit USE TO TEST BLOOD [...] PM EDT Office Visit Orthopedic Surgery - [address] [address] Gallito Hancock, DPM Dermatophytosis of [...] PM EST Office Visit Orthopedic Surgery - [place] [address] [address] Gallito Hancock, DPHollis [address] [address] Health Maintenance Due Date Last [...] complete this topic Insurance [place] - [place] [facility] Member Subscriber Plan / Payer (Ef fective 2022-Present) Name:Min Daily Relation to Subscriber:Self Name:Min Daily Payer ID:[id number] Group ID:[id number] Type:Not on file Address: [address] [place] [phone] Care Teams Slicing Machine Operator Relationship Specialty Start Date End Date Gemini Chavez MD [address] [place] [phone] [facility] - General 04/24/23
== END 2025-03-28 11:47 | disposition home or self-care (01) ==
PROVIDERS: PCP Internal Medicine; Visit Provider Internal Medicine
DX: J44.9 Chronic obstructive pulmonary disease, unspecified (principal); G47.33 Obstructive sleep apnea (adult) (pediatric)
CPT/HCPCS: 94010; 99213

== ENCOUNTER → 2025-03-28 11:05 | Outpatient (BNVA) | payer OTHER, SELFPAY | PROVIDERS: PCP Internal Medicine; Visit Provider Internal Medicine | DX: Z01.811 Encounter for preprocedural respiratory examination (principal); M75.02 Adhesive capsulitis of left shoulder; J44.9 Chronic obstructive pulmonary disease, unspecified; G47.33 Obstructive sleep apnea (adult) (pediatric); Z99.89 Dependence on other enabling machines and devices; Z91.199 Patient's noncompliance with other medical treatment and regimen due to unspecified reason | CPT/HCPCS: 94010; 99212 ==

== ENCOUNTER 2025-03-31 09:04 | Outpatient (AMB) | payer OTHER, SELFPAY ==
[2025-03-31 09:13] VITALS: BP 135/94; PULSE 90; O2SAT 97; BMI 34.5
--- NOTE | 2025-03-31 09:13 | A.OFFVIS_ITS ---
Vital Signs 03/31/25 09:13 Height 5 ft 6 in Weight 214 lb BMI 34.5 BP 135/94 H Blood Pressure Location Lt brachial Position Sitting Pulse 90 Pulse Source Pulse Oximeter Pulse Oximetry (%) 97 Oxygen Delivery Method Room Air Handedness Right Intake Visit Reasons: Preop LT shoulder /SAD/poss RTC 04/06/25 NE Intake Note: Min is a 69 year old right hand dominant male who presents today for a pre op appointment for a his LT shoulder /SAD/poss RTC 04/06/25 NE. Patient was given the pain management form to sign. Blow Torch Burner Services: Blow Torch Burner Present (Christian ([id number])) Allergies Iodinated Contrast Media (CONTRAST, IV) Allergy (Intermediate, Verified 03/31/25 09:16) HIVES (X1 occurrence only) kiwi (KIWI) Allergy (Intermediate, Verified 03/31/25 09:16) THROAT SWELLING HPI HPI Preop LT shoulder /SAD/poss RTC 04/06/25 NE: Details: Patient presents to the office today for preoperative history and physical evaluation pending left shoulder arthroscopy for possible rotator cuff repair. Patient reports ongoing pain for roughly 1 year. He has tried cortisone injection and physical therapy with no relief. He is unable to take NSAIDs due to AFib on Eliquis. [facility] Medical History Asthma Ascending aorta dilatation Diabetes Hoarseness Dysphagia Colon cancer screening Throat disorder Bronchitis CHF (congestive heart failure) Afib Allergic rhinitis COPD (chronic obstructive pulmonary disease) CE (obstructive sleep apnea) Obesity (BMI 30-39.9) Hypothyroid Anxiety Palpitation HTN (hypertension) Surgical History Hx of umbilical hernia repair History of surgery on arm Hx of eye surgery Hx of colonoscopy Hx of knee surgery Hx of tonsillectomy Family History Family/Other No problems noted. Social History (Updated 03/31/25 @ 09:17 by Too Arauz) Household Members: None Housing: Apartment Are you a primary home care consultant to a significant other at home: No Do you presently have visiting nurse or other home services: Yes ([employer]) Alcohol intake: former Patient Tobacco Use Status: Former Tobacco user Tobacco use type: Cigarette Advance Directives Date on File: 08/11/23 service: No Current occupational status: disabled Current occupation: right hand dominant Review of Systems Const All systems reviewed & are unremarkable except as noted in HPI and below Physical Exam Vital Signs: Last Vital Signs Pulse 90 03/31/25 09:13 BP 135/94 H 03/31/25 09:13 Pulse Ox 97 03/31/25 09:13 Oxygen Delivery Method Room Air 03/31/25 09:13 BMI result Body Mass Index 34.5 Const General: cooperative, healthy appearing and no acute distress Resp Effort & Inspection: normal respiratory effort and able to speak in complete s entences Extrem Other: Left shoulder FF 70 degrees. Abd 45 degrees. Able to perform passive ER with significant pain. Unable to perform empty can/drop arm due to ROM limitations. NVI. Psych Appearance: grossly normal Mental Status: mental status grossly normal Attitude: cooperative Assessment & Plan Assessment & Plan (1) Adhesive capsulitis of left shoulder: Code(s): M75.02 - Adhesive capsulitis of left shoulder Category: Medical Plan Dr. Ahumada was available to meet the patient while in the office today and discuss the patient's MRI findings and treatment plan. Unfortunately, at this time Dr. Ahumada does not feel that the patient would benefit from surgery. The patient has has one cortisone injection and has attended physical therapy with no relief. Unfortunately, he continues to have considerable stiffness from adhesive capsulitis. AN MRI was obtained and significant for a small intrasubstance RTC tear. It is felt that rotator cuff repair surgery risks would outweight the benefits due to the patient's significant past medical history of A. Fib on eliquis, PVD, COPD, DMII, Venous insufficiency, HTN, and ascending aortic dilation. At this time the patient has been referred to pain management for continuation of conservative treatment options. Surgery has been cancelled. Orders: Referrals Pain Management Referral M75.02 - Adhesive capsulitis of left shoulder Coding Level of Care Code Est Pt Level 3 (86094) Diagnoses Adhesive capsulitis of left shoulder M75.02
--- OUTSIDE RECORDS SUMMARY | 2025-03-31 11:06 | XMS_ITS | Encounter Summary ---
Author Organization [employer] Address [address] [facility] [address]t [place] [address] Care Team Providers Care Cutter First Name Role Phone Gemini Chavez MD Primary Care Provide r Reason for Visit * Reason Comments Med Refill Encounter Details Date Type Department Care Team ([facility] st Contact Info) Description 05/14/2024 Refill [facility] MEDICINE [address] [place], [place] [phone] Gemini Chavez MD [address] [place], [place] [phone] Class 1 obesity due to excess calories [...] documented as of this encounter Care Teams Cutter First Relationship Specialty Start Date End Date Gemini Chavez MD [address] [place] [phone] PCP - General Family Medicine 01/21/18 [employer] 03/28/24 documented as of this encounter
--- OUTSIDE RECORDS SUMMARY | 2025-03-31 11:06 | XMS_ITS | Encounter Summary ---
Author Organization [employer] Address [address] [facility] [address]t [place] [address] Care Team Providers Care Heel Packer Name Role Phone Gemini Chavez MD Primary Care Provide r Reason for Visit * Reason Comments Med Refill Encounter Details Date Type Department Care Team ([facility] st Contact Info) Description 02/12/2024 Refill [facility] MEDICINE [address] [place], [place] [phone] Gemini Chavez MD [address] [place] [address] Prediabetes Social History Tobacco Use Types Packs/Day [...] as of this encounter Care Teams Heel Packer Relationship Specialty Start Date End Date Gemini Chavez MD [address] [place] [phone] PCP - General Family Medicine 01/21/18 [email or web address] 03/28/24 documented as of this encounter
--- OUTSIDE RECORDS SUMMARY | 2025-03-31 11:06 | XMS_ITS | Encounter Summary ---
Author Organization [employer] Address [address] [facility] [address]t [place] [address] Care Team Providers Care Shaft Repairer Name Role Phone Gemini Chavez MD Primary Care Provide r Reason for Visit * Reason Comments Med Refill Encounter Details Date Type Department Care Team ([facility] st Contact Info) Description 02/12/2024 Refill [facility] MEDICINE [address] [place], [place] [phone] Gemini Chavez MD [address] [place] [address] Prediabetes Social History Tobacco Use Types Packs/Day [...] documented as of this encounter Care Teams Shaft Repairer Relationship Specialty Start Date End Date Gemini Chavez MD [address] [place] [phone] PCP - General Family Medicine 01/21/18 [employer] 03/28/24 documented as of this encounter
--- OUTSIDE RECORDS SUMMARY | 2025-03-31 11:07 | XMS_ITS | Clinical Summary ---
Author Organization [address] [facility] Address [address] [place] [address] Phone Care Team Providers Care Flower Shop Manager Name Role Phone Gemini Chavez MD [...] BLOOD SUGAR ONCE DAILY 5 Active FreeStyle [place] Lite monitoring kit USE TO TEST [...] PM EDT Office Visit Orthopedic Surgery - [address] [address] Gallito Hancock, DPM Dermatophytosis of [...] PM EST Office Visit Orthopedic Surgery - [place] [address] [phone] Gallito Hancock, DPHollis [address] [phone] Health Maintenance Due Date Last [...] complete this topic Insurance [place] - [place] [facility] Member Subscriber Plan / Payer (Ef fective 2022-Present) Name:Min Daily Relation to Subscriber:Self Name:Min Daily Payer ID:[id number] Group ID:[id number] Type:Not on file Address: [address] [place] [phone] Care Teams Flower Shop Manager Relationship Specialty Start Date End Date Gemini Chavez MD [address] [place] [phone] [facility] - General 04/24/23
--- OUTSIDE RECORDS SUMMARY | 2025-03-31 11:07 | XMS_ITS | Clinical Summary ---
Author Organization [employer] Address [address] [place] [address] [address] [place] [address] Care Team Providers Care Transition Manager Name Role Phone Gemini Chavez MD [...] ANAPHYLAXIS AND CALL [phone] Active Creon [id number] units capsule delayed-release particles capsule Take 2 capsules by mouth 4 times daily. ADMINISTER WITH MEALS AND/OR SNACKS 2022 Active Fluticasone-Salmetero l 250-50 MCG/ACT aerosol powder Inhale 1 puff 2 times daily. 2023 Active Umeclidinium [place] (Incruse Ellipta) 62.5 MCG/ACT aerosol powderIndications:Chr onic obstructive pulmonary disease, unspecified COPD type (CMS/HCC) (HCC) Take 1 Inhalation. by mouth in the morning. Inhale 1 puff by inhalation route every day at the same time each day 30 each 3 2023 Active cholecalciferol (Vitamin D-3) 25 MCG (1000 UT) tabletIndications:Pre diabetes Take 1 tablet (25 mcg) by mouth Once per day. 60 tablet 1 2023 Active meclizine (Antivert) 25 MG tabletIndications:Josh tigo TOME FAUSTINA TABLETA (25 MG) POR VIA ORAL CUANDO SEA NECESARIO KINJAL VECES AL СЕРГЕЙ (MORNING, NOON AND AT BEDTIME) PARA EL MAREO 30 tablet 2023 Active albuterol (2.5 MG/3ML) 0.083% nebulizer [...] per day. 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 5 tablet 2024 Active Tirzepatide (Mounjaro) 2.5 MG/0.5ML solution auto-injectorIndicati ons:Type 2 diabetes mellitus with hyperglycemia, without long-term current use of insulin (HCC) Inject 2.5 mg under the skin 1 (one) time per week. 2 mL 2 2024 Active azithromycin (Zithromax) 250 MG tabletIndications:FIELD HANDYMAN D exacerbation (CMS/HCC) (HCC) Take 2 tabs PO daily x 1d then 1 tab PO daily on D2 to D5 6 tablet 2024 Active Semaglutide-Weight Management (Wegovy) 1 MG/0.5ML solution auto-injector INJECT ONE PEN (=1MG) SUBCUTANEOUSL Y ONCE A WEEK 2 mL 03/23 Discontinued Semaglutide-Weight Management (Wegovy) 2.4 MG/0.75ML solution auto-injectorIndicati ons:Class 1 obesity due to excess calories with serious comorbidity and body mass index (BMI) of 33.0 to 33.9 in adult INJECT 2.4 ML UNDER THE SKIN EVERY 7 (SEVEN) DAYS. 2 mL 03/23 Discontinued Tirzepatide-Weight Management (Zepbound) 2.5 MG/0.5ML solution auto-injectorIndicati ons:Class 1 obesity due to excess calories with serious comorbidity and body mass index (BMI) of 33.0 to 33.9 in adult Inject 0.5 mL (2.5 mg) under the skin 1 (one) time per week. 2 mL 03/23 Discontinued Diclofenac Sodium 1 % gel APPLY 2 GRAMS TOPICALLY FOUR TIMES DAILY 300 g 2 03/07 Discontinued predniSONE (Deltasone) 20 MG tabletIndications:Acu te exacerbation of COPD with asthma ([facility]) ([facility]) Take 2 tablets (40 mg) by mouth Once per day for 10 days. 20 tablet 03/04 guaiFENesin 200 MG tabletIndications:Acu te exacerbation of COPD with asthma ([facility]) ([facility]) Take 2 tablets (400 mg) by mouth every 4 (four) hours if needed for cough for up to 10 days. 30 suppository 03/04 predniSONE (Deltasone) 20 MG tablet Take 1 tablet (20 mg) by mouth Once per day for 5 days. 5 tablet 03/23 Tirzepatide (Mounjaro) 2.5 MG/0.5ML solution auto-injectorIndicati ons:Type 2 diabetes mellitus with hyperglycemia, without long-term current use of insulin ([facility]) Inject 2.5 mg under the skin 1 (one) time per week. 2 mL 2 03/23 Discontinued predniSONE (Deltasone) 20 MG tabletIndications:FIELD HANDYMAN D exacerbation ([facility]) ([facility]) Take 3 tablets (60 mg) by mouth Once per day for 5 days. 15 tablet 03/28 benzonatate (Tessalon Perles) 100 MG capsuleIndications:[place] PD exacerbation ([facility]) ([facility]) Take 1 capsule (100 mg) by mouth if needed in the morning, at noon, and at bedtime for cough for up to 7 days. Do not crush or chew. 20 capsule 03/30 Hospital, Clinic, or Other Facility Administered Medication Ordered Dose Route Frequency Start Date End Date Status nitroglycerin (Nitrostat) SL tablet 0.4 mgIndications:Precordia l pain 0.4 mg SL Every 5 min PRN 07/22/2024 Active Active Problems Problem Noted Date Diagnosed Date Abdominal bloating 03/23/2025 Abnormal barium swallow 03/23/2025 Acute shoulder pain 03/23/2025 Allergic rhinitis 03/23/2025 Overview (03/23/2025): It is mild, seasonal, . Inactive at this time Arthritis of left shoulder 03/23/2025 Bronchitis 03/23/2025 Overview (03/23/2025): Recent visit to the emergency room secondary to nonspecific bronchitis, which seems to have resolved with minimal residual cough. For cough he may continue to take Tessalon Perles 100 mg t.i.d. p.r.n.. Chest pain 03/23/2025 Constipation 03/23/2025 Gastroesophageal reflux disease 03/23/2025 Hx of colonoscopy 03/23/2025 Overview (03/23/2025): 02/2024=hyperplastic polyps kandice repeat 1 year r/t poor prep; 02/2013 Dr. Robles Left shoulder tendonitis 03/23/2025 Obesity (BMI 30-39.9) 03/23/2025 Overview (03/23/2025): Discussed about his weight, he is not well motivated to lose weight. Also cannot walk much . Pancreatic insufficiency 03/23/2025 Presbyesophagus 03/23/2025 Dysphagia 03/23/2025 Throat disorder 03/23/2025 Overview (03/23/2025): Nonspecific, ball like feeling in the throat. On examination I do not see any obvious obstructive abnormality. There is no finding of thrush. Patient is instructed that he should rinse his throat with warm water 2 or 3 times a day. He should wait for seeing the throat specialist, Atrial fibrillation with rap id ventricular response ([facility]/HCC) 03/23/2025 Acute exacerbation of chroni c obstructive pulmonary disease ([facility]) 03/23/2025 Overview (03/23/2025): [id number] ASTHMA/COPD . CLINICALLY WELL CONTROLLED AT THIS TIME. DOES NOT NEED TO USE ALBUTEROL FREQUENTLY. Asthma exacerbation 03/23/2025 Asthma 03/23/2025 CE (obstructive sleep apnea) 03/23/2025 Overview (03/23/2025): Currently untreated. He lost his machine because of noncompliance. He claims that he sleeps okay, wakes up a few times due to pain in the shoulders and back. He is not going to be able to use the CPAP. Has not lost any weight, . Which is not expected anyway Pre-op examination 03/23/2025 CKD (chronic kidney disease) 03/23/2025 Hepatic steatosis 03/23/2025 Overview (03/23/2025): LIVER APPEARS NORMAL ON CAT SCAN 11/2021 SO HE IS REFERRED BACK TO HIS PRIMARY CARE PROVIDER FOR MONITORING OF HIS TRANSAMINASES. 11/2019 hepatic panel shows an elevated total bilirubin of 1.2 direct normal at 0.5, AST/ALT is 29/49 with a normal alk-phos, BNP is elevated at 343, TSH is low at 0.24 with no T4 yet available, autoimmune workup is negative, alpha fetoprotein from 05/2019 was 2.6, he is immune to hepatitis a is screen for hepatitis B and C is negative, HIV is also negative. * CURRENT Laboratory Tests Total Bili 0.7 0.0-1.0 mg/dL AST (GOT) 24 5-37 U/L ALT (GPT) 30 0-40 U/L Protein, Total 7.4 6.5-8.0 g/dL Alb 3.8 3.5-5.0 g/dL Alk Phos 52 39-117 U/L 10/03/22-[address] [facility] [address]: Gemini Chavez MD ORDERED: Alpha Feto Test Result Flag Reference Site AFPTM 2.7 ULTRASOUND OF THE ABDOMEN 08/20/22 IMPRESSION: 1. There is generalized increase in hepatic echotexture, consistent with fatty infiltration or hepatocellular disease. Please correlate clinically. No focal hepatic mass or intrahepatic biliary dilatation is seen. 2. A 4 mm nonobstructing right renal calculus is seen. No left renal calculus is seen. No hydronephrosis is noted bilaterally. 3. There are benign, simple bilateral renal cysts, for which no imaging follow-up recommended. 4. Technically limited ultrasound examination of the pancreas and abdominal aorta. Liver lesion 03/23/2025 Type 2 diabetes mellitus wit h hyperglycemia, without long-term current use of insulin 03/23/2025 COPD exacerbation (CMS/HCC) 03/23/2025 Lower extremity edema 03/23/2025 Moderate persistent asthma without complication 03/18/2025 Assessment & Plan (03/18/2025 9:44 AM EST): Viral upper respiratory tract infection 03/18/20 Assessment & Plan (03/18/2025 9:44 AM EST): Orders: Influenza A (ID NOW Rapid Molecular) Influenza B (ID NOW Rapid Molecular) POCT Rapid COVID Ag Acute reactive otitis externa of both ears [...] hyperplasia (BPH) with straining on urination 02/11/2024 Severe obesity (BMI 35.0-39.9) with comorbidity (CMS/[facility]) 11/11/2023 Assessment & Plan (11/11/2023 12:07 PM EDT): I will prescribed wegovy for patient, it is my medical opinion patient will benefit form medication Colon cancer screening 09/03/2023 Assessment & Plan (09/03/2023 1:57 PM EDT): Patient reports he received prep for colonoscopy but has not being schedule yet Atrial fibrillation with RVR (CMS/[facility]) Assessment & Plan (11/29/2024 3:15 PM EDT): [...] TSH and contact him back 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 -on day of surgery can take BB and levothyroxine with a sip of water and to hold rest of meds -nurse staff to fax this note to surgeon COPD with asthma ([facility]) 01/22/2023 Assessment & Plan (11/29/2024 3:17 PM [...] Encounters Date Type Department Care Team Description 03/23/2025 11:15 AM EST Office Visit [address] [address] Gemini Chavez MD Severe obesity (BMI 35.0-39.9) with comorbidity (CMS/HCC) (HCC) (Primary Dx); Type 2 diabetes mellitus with hyperglycemia, without long-term current use of insulin (HCC); COPD exacerbation (CMS/HCC) (HCC); Lower extremity edema 03/23/2025 Orders Only GENERIC EXTERNAL DATA DEPARTMENT Provider, Generic External Data 03/23/2025 Travel 03/22/[address] [address] Gemini Chavez MD Chart Prep 03/18/2025 9:00 AM EST Office Visit [facility] [address] [place] [phone] Jessica Ho NP Moderate persistent asthma without complication (Primary Dx); Viral upper respiratory tract infection 03/18/2025 Telephone [facility] [address] [place] [address] Gemini Chavez MD Nurse Triage 03/18/2025 Travel 03/17/[address] [address] Gemini Chavez MD Prior Authorization 03/11/2025 10:30 AM EDT Office Visit [address] [address] Gemini Chavez MD Chronic systolic heart failure (HCC) (Primary Dx); Preop examination; Primary hypertension 03/11/2025 Telephone [facility] [address] [place] [address] Gemini Chavez MD 03/11/2025 Travel 03/10/2025 Telephone [facility] [address] [place] [address] Gemini Chavez MD Chart Prep 03/06/2025 Refill [facility] [address] [place] [address] Gemini Chavez MD 03/03/2025 Telephone [facility] [address] [place] [address] Gemini Chavez MD Transition Of Care (Tcm) 03/03/2025 Orders Only GENERIC EXTERNAL DATA DEPARTMENT Provider, Generic External Data 02/28/2025 Telephone [facility] [address] [place] [address] Gemini Chavez MD Pre-op appt 02/22/2025 8:40 AM EDT Office Visit [facility] [address] [place] [address] Christal Edmonds MD Acute exacerbation of COPD with asthma (CMS/HCC) (HCC) (Primary Dx); Cough in adult 02/22/2025 Travel 02/21/2025 Telephone [facility] [address] [place] [address] Gemini Chavez MD Nurse Triage; ER Follow-up 02/21/2025 Orders Only GENERIC EXTERNAL DATA DEPARTMENT Provider, Generic External Data 02/18/2025 Orders Only [facility] External Provider, [facility] 02/16/2025 Telephone [facility] [address] [place] [address] Gemini Chavez MD Nurse Triage 02/15/2025 Orders Only [facility] External Provider, [facility] 02/11/2025 Refill [facility] [address] [place] [address] Gemini Chavez MD Hypertension, unspecified type 02/04/2025 Refill [facility] [address] [place] [address] Gemini Chavez MD Acquired hypothyroidism 02/03/2025 Telephone [facility] [address] [place] [address] Gemini Chavez MD Fyi 02/02/2025 Orders Only GENERIC EXTERNAL DATA DEPARTMENT Provider, Generic External Data 01/31/2025 Patient Outreach [facility] [address] [place] [address] Gemini Chavez MD Care Coordination (A Agency) 01/28/2025 Refill [facility] [address] [place] [address] Gemini Chavez MD 01/27/2025 Refill [facility] [address] [place] [address] Gemini Chavez MD Acquired hypothyroidism 01/20/2025 Orders Only GENERIC EXTERNAL DATA DEPARTMENT Provider, Generic External Data 01/18/2025 Telephone [facility] [address] [place] [address] Gemini Chavez MD NOV RECALL from Last 3 Months Immunizations Immunization Administration [...] Sign Reading Time Taken Comments Blood Pressure 126/84 03/23/2025 11:21 AM EST Pulse 90 03/23/2025 11:21 AM EST Temperature 35.6 C (96.1 F) 03/23/2025 11:21 AM EST Respiratory Rate 15 03/23/2025 11:2 1 AM EST Oxygen Saturation 95% 03/23/2025 11: 21 AM EST Inhaled Oxygen Concentration - - Weight 98.8 kg (217 lb 12.8 oz) 025 11:21 AM EST Height 167.6 cm (5' 6 ) 03/23/2025 11:2 1 AM EST Body Mass Index 35.15 03/23/2025 11:21 AM EST Plan of Treatment Health Maintenance Due Date Last Done Comments CT Colonography 1955 FIT DNA/Cologuard 1955 FIT 1955 FOBT 1955 Sigmoidoscopy 1955 Diabetes: Foot Exam 11/18/1965 Eye Exam 11/18/1965 Hepatitis A Vaccines (1 of 2 - Risk 2-dose series) 11/18/1974 Hepatitis B Vaccines (1 of 3 - Risk 3-dose series) 2015 COVID-19 Vaccine ( season) 2025 02/11/2024, 02/06/2023, 04/24/2022, Additional history exists Colonoscopy 01/20/2025 01/21/2024 Colorectal Cancer Screening 01/20/2025 Zoster Vaccines (2 of 2) 02/21/2025 12/27/2024 Lipid Panel 05/03/2025 05/03/2024, 01/0 01/2024, 12/13/2022, Additional history exists Diabetes: Urine Protein Screening 05/04/2025 05/04/2024, 06/13/2022 Diabetes: Hemoglobin A1C 09/20/2025 025, 03/23/2025, 11/29/2024, Additional history exists Alcohol/Substance Use Screening 11/29/2025 11/29/2024 Depression Screening 11/29/2025 11/29/2024, 11/30/19 SDOH Screening 11/29/2025 11/29/2024 Tobacco Screening 03/23/2026 03/23/2025 DTaP/Tdap/Td Vaccines (2 - Td or Tdap) [...] on patient's age to complete this topic Goals Goal Patient Goal Type Associated Problems Recent Progress Patient-Stated? Author Help patients manage their type 2 diabetes Care Plan Help patients manage their type 2 diabetes Gemini Wilson MD Weekly blood pressure task Care Plan Weekly blood pressure task Gemini Wilson MD Help patients manage their type 2 diabetes Care Plan Help patients manage their type 2 diabetes Gemini Wilson MD Patient has chronic kidney disease Care Plan Patient has chronic kidney disease Gemini Wilson MD Weekly blood pressure task Care Plan Weekly blood pressure task Gemini Wilson MD Patient has chronic kidney disease Care Plan Patient has chronic kidney disease Gemini Wilson MD Help patients manage their type 2 diabetes Care Plan Help patients manage their type 2 diabetes Gemini Wilson MD Help patients manage their type 2 diabetes Care Plan Help patients manage their type 2 diabetes No Gemini Chavez MD Patient has chronic kidney disease Care Plan Patient has chronic kidney disease No Gemini Chavez MD Patient has chronic kidney disease Care Plan Patient has chronic kidney disease Gemini Wilson MD Weekly blood pressure task Care Plan Weekly blood pressure task Gemini Wilson MD Weekly blood pressure task Care Plan Weekly blood pressure task No Gemini Chavez MD Procedures Procedure Name Priority Date/Time Associated Diagnosis Comments POCT GLYCATED HEMOGLOBIN, TOTAL Routine 03/23/2025 11:24 AM EST Type 2 diabetes mellitus with hyperglycemia, without long-term current use of insulin (HCC) POCT GLUCOSE Routine 03/23/2025 11:24 AM EST Type 2 diabetes mellitus with hyperglycemia, without long-term current use of insulin (HCC) HEMOGLOBIN A1C Routine 03/23/2025 10:37 AM EST POCT RAPID COVID ANTIGEN Routine 03/18/2025 9:36 AM EST Viral upper respiratory tract infection POCT INFLUENZA B (ID NOW RAPID MOLECULAR) Routine 03/18/2025 9:36 AM EST Viral upper respiratory tract infection POCT INFLUENZA A (ID NOW RAPID MOLECULAR) Routine 03/18/2025 9:36 AM EST Viral upper respiratory tract infection ECG 12-LEAD Routine 03/11/2025 1:16 PM EDT Preop examination COMPREHENSIVE METABOLIC PANEL Routine 03/11/2025 11:47 AM EDT Preop examination CBC WITH AUTO DIFFERENTIAL Routine 03/11/2025 11:47 AM EDT Preop examination CTA ABDOMEN PELVIS W AND WO CONTRAST [...] METABOLIC PANEL Routine 01/20/2025 3:40 PM EDT CREATININE, RANDOM URINE Routine 05/04/2024 10:18 AM EST LIPID PANEL, STANDARD Routine 05/03/2024 8:15 AM EST Stage 3 chronic kidney disease, unspecified whether stage 3a or 3b CKD (CMS/HCC) Prediabetes HM COLONOSCOPY Routine 01/21/2024 10:19 AM EDT HEPATITIS C ANTIBODY REFLEX Routine 12/13/2022 8:21 AM EDT from Last 3 Months or Most Recently Relevant to Health Maintenance Results * (ABNORMAL) POCT Hgb A1c (03/23/2025 11:24 AM EST) Hemoglobin A1C 6.6(A) 4.0 - 5.7 % QC Media Lot # [id number] Lot# Expiration Date [id number] Blood 03/23/2025 11:2 4 AM EST Gemini Chung MD POINT OF CARE TEST EN TER/EDIT ORDERABLES Final Result * POCT Glucose (03/23/2025 11:24 AM EST) Glucose Blood, POC 91 60 - 200 mg/dL QC Media Lot # [id number] Lot# Expiration Date 7,726 Blood Capillary blood specimen / Unknown 03/23/2025 11:24 AM EST Gemini Chung MD POINT OF CARE TEST EN TER/EDIT ORDERABLES Final Result * (ABNORMAL) Hemoglobin A1c (03/23/2025 10:37 AM EST) Hemoglobin A1c 6.4(H) <6.0 % [facility] Comment:Hemoglobin A1C Refer ence Range Adults: 4.8 - 6.0 % Non diabetic: < 6.0 % Goal: < 7.0 %Additional Action Suggested: > 8.0 %Note: Hemoglobin A1c results are invalid for patients with abnormal amounts of HbF. Blood transfusions may impact the HbA1c concentration in the patient sample. Estimated Average Glucose 137 mg/dL [facility] Comment:eAG = Estimated ave rage glucose which is %A1C expressed asaverage glucose, using the formula of the [id number] Glucose study (ADAG), Diabetes Care, Vol.31,#8,Dec. 2007 03/23/2025 10:3 7 AM EST 03/23/2025 10:37 AM EST us Generic External Data Provider LAB BLOOD ORDERAB LES Final Result Performing Organization Address [facility] Co de Phone Number [facility] [address] [place] [phone] * Influenza B (ID NOW Rapid Molecular) (03/18/2025 9:36 AM EST) Only the most recent of2 resultswithin the time period is included. Influenza B Negative Negative, Indeterminate [facility] Swab 03/18/2025 9:36 AM EST Jessica Graleif TECHNICAL ACCOUNT MANAGER POINT OF CARE TEST ENTER/EDIT OR DERABLES Final Result Performing Organization Address [facility] [[email or web address]] de Phone Number [facility] [address] [place] [phone] * Influenza A (ID NOW Rapid Molecular) (03/18/2025 9:36 AM EST) Only the most recent of2 resultswithin the time period is included. Pathologist [facility] Influenza A Negative Negative, Indeterminate [facility] Swab 03/18/2025 9:36 AM EST Jessica Graleif TECHNICAL ACCOUNT MANAGER POINT OF CARE TEST ENTER/EDIT OR DERABLES Final Result Performing Organization Address [facility] [[email or web address]] de Phone Number [facility] [address] [place] [phone] * POCT Rapid COVID Ag (03/18/2025 9:36 AM EST) Only the most recent of2 resultswithin the time period is included. Rapid COVID Ag Negative Swab 03/18/2025 9:36 AM EST Jessica Graef TECHNICAL ACCOUNT MANAGER POINT OF CARE TEST ENTER/EDIT OR DERABLES Final Result * ECG 12 lead (03/11/2025 1:16 PM EDT) Narrative Gemini Chavez MD - 03/11/2025 1:16 PM EDT No changes from previous EKG us Gemini Chung MD ECG ORDERABLES Final Result * (ABNORMAL) CBC auto differential (03/11/2025 11:47 AM EDT) White Blood Count 6.9 4.8 - 10.8 X10*3/uL [facility] Red Blood Count 4.86 4.60 - 5.80 X10*6/uL [facility] Hemoglobin 14.5 14.0 - 18.0 g/dl [facility] Hematocrit 44.1 42.0 - 52.0 % [facility] Mean Corpuscular Volume 90.7 80.0 - 98.0 fL [facility] Mean Corpuscular Hemoglobin 29.8 27.0 - 33.0 pg [facility] Mean Corpuscular HGB Conc 32.9 31.0 - 36.0 g/dl [facility] Red Cell Distribution Width 12.4 11.0 - 16.0 % [facility] Platelet Count 222 160 - 400 X10*3/uL [facility] Mean Platelet Volume 10.5 9.4 - 12.4 fL [facility] Neutrophils Percent Auto 63.6 45 - 73 % [facility] Imm Gran Pct Auto 0.3 0.0 - 0.4 % [facility] Lymphocytes Percent Auto 20.6 20 - 40 % [facility] Monocytes Percent Auto 14.5(H) 2 - 11 % [facility] Eosinophils Percent Auto 0.7 0 - 4 % [facility] Basophils Percent Auto 0.3 0 - 2 % [facility] NRBC Pct Auto 0.0 0.0 - 0.2 /100WBC [facility] Neutrophils Absolute Auto 4.4 2.0 - 8.3 x10*3/uL [facility] Imm Gran Abs Auto 0.02 0.00 - 0.03 X10*3/uL [facility] Lymphocytes Absolute Auto 1.4 1.2 - 4.9 X10*3/uL [facility] Monocytes Absolute Auto 1.0 0.1 - 1.2 X10*3/uL [facility] Eosinophils Absolute Auto 0.1 0.0 - 0.4 X10*3/uL [facility] Basophils Absolute Auto 0.0 0.0 - 0.2 X10*3/uL [facility] NRBC Abs Auto 0.000 0.0 - 0.012 X10*3/uL [facility] Blood Venous blood specimen / Unknown 03/11/2025 11:47 AM EDT 03/11/2025 1:09 PM EDT us Gemini Chung MD LAB BLOOD ORDERABLES Final Result [facility] [address] [place] [phone] * Comprehensive Metabolic Panel (03/11/2025 11:47 AM EDT) Sodium 142 135 - 145 mmol/L [facility] Potassium 4.2 3.3 - 5.1 mmol/L [facility] Comment:Slight Hemolysis.Int erpret result with caution. Chloride 105 96 - 108 mmol/L [facility] Carbon Dioxide 28 22 - 29 mmol/L [facility] Anion Gap 13 12 - 20 [facility] Urea Nitrogen (BUN) 10 9 - 16 mg/dL [facility] Creatinine, Serum 1.33 0.5 - 1.4 mg/dL [facility] Estimated Glomerular Filt Rate 53 [facility] Comment:Chronic Kidney Disea se: Estimated GFR < 60 mL/min/1.89l2Srhfjt Kidney Disease: Estimated GFR < 15 mL/min/1.73m2 Glucose 82 60 - 115 mg/dL [facility] Calcium 9.2 8.4 - 10.2 mg/dL [facility] Bilirubin, Total 1.0 0.0 - 1.0 mg/dL [facility] Aspartate Amino Transferase 27 5 - 37 U/L [facility] Comment:Slight Hemolysis.Int erpret result with caution. Alanine Aminotransferase 30 0 - 40 U/L [facility] Total Protein 6.9 6.5 - 8.0 g/dL [facility] Albumin Level 4.1 3.5 - 5.0 g/dL [facility] Alkaline Phosphatase 51 39 - 117 U/L [facility] Blood Venous blood specimen / Unknown 03/11/2025 11:47 AM EDT 03/11/2025 1:09 PM EDT us Gemini Chung MD LAB BLOOD ORDERABLES Final Result Performing Organization Address City/State/[facility] Co de Phone Number [facility] [address] [place] [address] [phone] * CTA Abdomen Pelvis w/ and w/o Contrast (03/03/2025 6:13 AM EDT) Anatomical Region Laterality Modality Body, Pelvis, Abdomen Computed T omography 03/03/2025 6:13 AM EDT Narrative 03/03/2025 6:15 AM EDT [place] [address] [address] Scan Report Signed Patient: Min Rees MR#: [id number] : 1955 Acct:[id number] Age/Sex: 69 / M ADM Date: 03/03/25 Loc: .ED Attending Dr: Ordering Physician: Eleuterio Jenkins MD Date of Service: 03/03/25 Procedure(s): CT angio abdomen pelvis Accession Number(s): [id number] cc: Gemini Chavez MD; Eleuterio Jenkins MD Report Number: [id number]: Total DLP = 0.00 mGy-cm Reason for [...] Normal appendix. No fluid collections or adenopathy. Jane Lew in the right lower quadrant. No acute [...] in OV> 03/03/25613 DD/ 2 TD/TT: 03/03/25612 Child Care Coordinator: Procedure Note Donotuseinterpreter, Image - 03/03/[address] [place] [address] [address] Scan Report Signed Patient: Min Rees#: [id number] : 6Acct:[id number] Age/Sex: 69 / MADM Date: 03/03/25 Loc: HO.ED Attending Dr: Ordering Physician: Eleuterio Jenkins MD Date of Service: 03/03/25 Procedure(s): CT angio abdomen pelvis Accession Number(s): [id number] cc: Gemini Chavez MD; Eleuterio Jenkins MD Report Number: [id number]: Total DLP = 0.00 mGy-cm Reason for [...] Normal appendix. No fluid collections or adenopathy. Jane Lew in the right lower quadrant. No acute [...] in OV> 03/03/25613 DD/ 2 TD/TT: 03/03/25612 Child Care Coordinator: [facility] External Provider IMG CT PROCEDURES Edited Result - Final * CTA Chest w/ and w/o Contrast (03/03/2025 6:13 AM EDT) Anatomical Region Laterality Modality Body, Chest Computed Tomogra phy 03/03/2025 6:13 AM EDT Narrative 03/03/2025 6:14 AM EDT [address] [address] [address] Scan Report Signed Patient: Min Rees MR#: [id number] : 1955 Acct:[id number] Age/Sex: 69 / M ADM Date: 03/03/25 Loc: HO.ED Attending Dr: Ordering Physician: Eletuerio Jenkins MD Date of Service: 03/03/25 Procedure(s): CT angio chest aorta Accession Number(s): [id number] cc: Gemini Chavez MD; Eleuterio Jenkins MD Report Number: [id number]: Total DLP = 936.00 mGy-cm Reason for [...] Normal appendix. No fluid collections or adenopathy. Jane Lew in the right lower quadrant. No acute [...] in OV> 03/03/25612 DD/ 2 TD/TT: 03/03/25612 Child Care Coordinator: Procedure Note Donotuseinterpreter, Image - 03/03/[address] [address] [address] Scan Report Signed Patient: Min Rees#: [id number] : 6Acct:[id number] Age/Sex: 69 / MADM Date: 03/03/25 Loc: HO.ED Attending Dr: Ordering Physician: Eleuterio Jenkins MD Date of Service: 03/03/25 Procedure(s): CT angio chest aorta Accession Number(s): [id number] cc: Gemini Chavez MD; Eleuterio Jenkins MD Report Number: [id number]: Total DLP = 936.00 mGy-cm Reason for [...] Normal appendix. No fluid collections or adenopathy. Jane Lew in the right lower quadrant. No acute [...] in OV> 03/03/25612 DD/ 2 TD/TT: 03/03/25612 Child Care Coordinator: [facility] External Provider IMG CT PROCEDURES Edited Result - Final * High Sensitivity Troponin I (03/03/2025 5:22 AM EDT) Only the most recent of2 resultswithin the time period is included. TROPONIN I HIGH SENSITIVITY 11.3 <3.5 - 35.0 ng/L [facility] Comment:The Ham high sens itivity Troponin-I results should beused in conjunction with other diagnostic information suchas ECG, clinical observations and information, and patientsymptoms to aid in the diagnosis of [place]. 03/03/2025 5:22 AM EDT 03/03/2025 5:25 AM EDT us Generic External Data Provider LAB BLOOD ORDERAB LES Final Result Performing Organization Address [facility]/ZIP Co de Phone Number [facility] [address] [place] [phone] * (ABNORMAL) Lactic Acid (03/03/2025 5:22 AM EDT) Pathologist [facility] Lactic Acid 2.1(HH) 0.5 - 2.0 mmol/L [facility] Comment:Critical value for t est(s): LACTIC ACID Results called toand read back by:MASON Person calling: NEGRA Date:03/03/25 Time:0556 03/03/2025 5:22 AM EDT 03/03/2025 5:25 AM EDT Generic External Data Provider LAB BLOOD ORDERAB LES Final Result Performing Organization Address [facility] Co de Phone Number [facility] [address] [place] [phone] * POCT rapid strep A manually resulted (02/22/2025 9:09 AM EDT) [facility] Rapid Strep A Screen Negative Negative, None Detected Swab 02/22/2025 9:09 AM EDT Christal Edmonds MD POINT OF CARE TEST ENTER/EDIT ORDERABLES Final Result * (ABNORMAL) Basic Metabolic Panel (02/21/2025 6:37 AM EDT) Only the most recent of2 resultswithin the time period is included. Pathologist [facility] Sodium 144 135 - 145 mmol/L [facility] Potassium 3.4 3.3 - 5.1 mmol/L [facility] Chloride 105 96 - 108 mmol/L [facility] Carbon Dioxide 30(H) 22 - 29 mmol/L [facility] Anion Gap 12 12 - 20 [facility] Urea Nitrogen (BUN) 26(H) 9 - 16 mg/dL [facility] Creatinine, Serum 1.17 0.5 - 1.4 mg/dL [facility] Estimated Glomerular Filt Rate >60 [facility] Comment:Chronic Kidney Disea se: Estimated GFR < 60 mL/min/1.32e7Gnultn Kidney Disease: Estimated GFR < 15 mL/min/1.73m2 Glucose 83 60 - 115 mg/dL [facility] Calcium 9.0 8.4 - 10.2 mg/dL [facility] 02/21/2025 6:37 AM EDT 02/21/2025 6:37 AM EDT us Generic External Data Provider LAB BLOOD ORDERAB LES Final Result Performing Organization Address City/State/[facility] Co de Phone Number [facility] [address] [place] [phone] * MR Shoulder w/o Contrast Left (02/18/2025 10:00 AM EDT) Anatomical Region Laterality Modality Upper Extremities, Shoulder Left Magn etic Resonance 02/18/2025 10:0 0 AM EDT Narrative 02/18/2025 12:15 PM EDT [address] [address] Magnetic Resonance Report Signed Patient: Min Rees MR#: [id number] : 1955 Acct:[id number] Age/Sex: 69 / M ADM Date: 02/18/25 Loc: HO.MRI Attending Dr: Mario Wild PA-C Ordering Physician: Mario Wild PA-C Date of Service: 02/18/25 Procedure(s): MR shoulder LT wo con Accession Number(s): [id number] cc: Gemini Chavez MD; Mario Wild PA-C [...] 02/18/25 1213 DD/ 1000 TD/TT: 02/18/25 1019 Child Care Coordinator: RHODA Procedure Note Donotuseinterpreter, Image - 02/18/[address] [address] Magnetic Resonance Report Signed Patient: Min Rees#: [id number] : 6Acct:[id number] Age/Sex: 69 / MADM Date: 02/18/25 Loc: HO.MRI Attending Dr: Mario Wild PA-C Ordering Physician: Mario Wild PA-C Date of Service: 02/18/25 Procedure(s): MR shoulder LT wo con Accession Number(s): [id number] cc: Gemini Chavez MD; Mario Wild PA-C [...] 02/18/25 1213 DD/ 1000 TD/TT: 02/18/25 1019 Child Care Coordinator: RHODA [facility] External Provider IMG MRI PROCEDURES Final Result * XR Chest 2 Views (02/15/2025 9:30 AM EDT) Anatomical Region Laterality Modality Chest Radiographic Claire ging 02/15/2025 9:30 AM EDT Narrative 02/15/2025 9:44 AM EDT [address] [address] XRay Report Signed Patient: Min Rees MR#: [id number] : 1955 Acct:[id number] Age/Sex: 69 / M ADM Date: 02/15/25 Loc: HO.ED Attending Dr: Ordering Physician: Tavia Garcia Date of Service: 02/15/25 Procedure(s): XR chest 2V Accession Number(s): [id number] cc: Gemini Chavez MD; Tavia Garcia Reason [...] in OV> 02/15/25940 DD/ 9 TD/TT: 02/15/25934 Child Care Coordinator: Procedure Note Donotuseinterpreter, Image - 02/15/[address] [address] XRay Report Signed Patient: Min ReesMR#: [id number] : 1955cct:[id number] Age/Sex: 69 / MADM Date: 02/15/25 Loc: .ED Attending Dr: Ordering Physician: Tavia Garcia Date of Service: 02/15/25 Procedure(s): XR chest 2V Accession Number(s): [id number] cc: Gemini Chavez MD; Tavia Garcia Reason [...] in OV> 02/15/25940 DD/ 9 TD/TT: 02/15/25934 Child Care Coordinator: [facility] External Provider IMG XR PROCEDURES Final Result * (ABNORMAL) Glucose, Whole Blood (02/02/2025 9:24 AM EDT) Glucose, Whole Blood 125(H) 60 - 115 mg/dL [facility] Comment:METER #: [id number] 02/02/2025 9:24 AM EDT 02/02/2025 9:28 AM EDT Generic External Data Provider LAB BLOOD ORDERAB LES Final Result Performing Organization Address [facility] Co de Phone Number [facility] [address] [place] [address] [phone] * Creatinine, Random Urine (05/04/2024 10:18 AM EST) Creatinine, Urine 306.08 mg/dL [facility] 05/04/2024 10:1 8 AM EST 05/04/2024 10:48 AM EST Generic External Data Provider LAB URINE ORDERAB LES Final Result Performing Organization Address [facility] Co de Phone Number [facility] [address] [place] [address] [phone] * (ABNORMAL) Lipid Panel, Standard (05/03/2024 8:15 AM EST) Triglycerides 230(H) <150 mg/dL [facility] Comment:Desirable Triglyceri de: less than 150 mg/dLBorderline High Triglyceride 150-199 mg/dLHigh Triglyceride: 200-499 mg/dLVery High Triglyceride: greater than or equal to 5OO mg/dL Cholesterol 118 <200 mg/dL [facility] Comment:Desirable Cholestero l: less than 200 mg/dLBorderline High Cholesterol: 200-239 mg/dLHigh Cholesterol: greater than 239 mg/dL LDL Cholesterol Calculated 41 <100 mg/dL [facility] Comment:Desirable LDL: less than 100 mg/dLNear Optimal/Above Optimal LDL: 110- 129 mg/dLBorderline High LDL: 130-159 mg/dLHigh LDL: 160-189 mg/dLVery High LDL: greater than or equal to 190 mg/dL HDL Cholesterol 31(L) >40 mg/dL [facility] Comment:Desirable HDL: great er than 40 mg/dL Note: This HDL assay may give artificially low results in patients with liver disease. Blood Venous blood specimen / Unknown 05/03/2024 8:15 AM EST 05/03/2024 11:40 AM EST us Gemini Chung MD LAB BLOOD ORDERABLES Final Result [facility] [address] [place] [phone] * Hm Colonoscopy (01/21/2024 10:19 AM EDT) Colonoscopy Normal Normal Narrative Jamila Page - 01/21/2024 10:19 AM EDT Repeat Colonoscopy in 6-12 months due to poor right prep or earlier if clinically indicated see external hospital admission note on 01/21/2024 Historical Provider HEALTH MAINTENANCE Edited Result - Final * Hepatitis C Antibody Reflex (12/13/2022 8:21 AM EDT) Hepatitis C Antibody Nonreactive Nonreactive [facility] Comment:Antibodies to HCV no t detected; does not exclude early acuteHCV infection. 12/13/2022 8:21 AM EDT 12/13/2022 11:08 AM EDT Gemini Chung MD LAB BLOOD ORDERABLES Final Result [facility] [address] [place] [phone] [phone] from Last 3 Months or Most Recently Relevant to Health Maintenance Additional Health Concerns Active Problems Noted Date Diagnosed Date Help patients manage their type 2 diabetes 03/23 Weekly blood pressure task 03/23/2025 Help patients manage their type 2 diabetes 03/23 Patient has chronic kidney disease 03/23/2025 Weekly blood pressure task 03/23/2025 Patient has chronic kidney disease 03/23/2025 Help patients manage their type 2 diabetes 03/23 Help patients manage their type 2 diabetes 03/23 Patient has chronic kidney disease 03/23/2025 Patient has chronic kidney disease 03/23/2025 Weekly blood pressure task 03/23/2025 Weekly blood pressure task 03/23/[address] [place] [phone] [facility] OPTIONS (HMO D-SNP) [place] [id number] [employer] [address] [place] [phone] [address] [place] [phone] Care Teams Transition Manager Relationship Specialty Start Date End Date Gemini Chavez MD [address] [place] [address] PCP - General Family Medicine 01/21/18 [employer] 03/28/24
--- OUTSIDE RECORDS SUMMARY | 2025-03-31 11:07 | XMS_ITS | Encounter Summary ---
Author Organization [employer] Address [address] [facility] 7t [place] [address] Care Team Providers Care Gang Bore Operator Name Role Phone Gemini Chavez MD Primary Care Provide r Reason for Visit * Reason Comments Med Refill Encounter Details Date Type Department Care Team ([facility] st Contact Info) Description 03/03/2024 Refill [facility] [address] [place], [place] [phone] Gemini Chavez MD [address] [place], [place] [phone] Social History Tobacco Use Types Packs/Day Years [...] documented as of this encounter Care Teams Gang Bore Operator Relationship Specialty Start Date End Date Gemini Chavez MD [address] [place] [address] PCP - General Family Medicine 01/21/18 [employer] 03/28/24 documented as of this encounter
--- OUTSIDE RECORDS SUMMARY | 2025-03-31 11:07 | XMS_ITS | Encounter Summary ---
Author Organization [employer] Address [address] [facility] [address]t [place] [address] Care Team Providers Care Grinder Machine Knife Setter Name Role Phone Gemini Chavez MD Primary Care Provide r Reason for Visit * Reason Comments Med Refill Encounter Details Date Type Department Care Team ([facility] st Contact Info) Description 06/21/2022 Refill [facility] MEDICINE [address] [place], [place] [phone] Marsha Menjivar MD [address] [place], [place] [phone] Chronic systolic heart failure (CMS/HCC) Social History [...] documented as of this encounter Care Teams Grinder Machine Knife Setter Relationship Specialty Start Date End Date Gemini Chavez MD [address] [place] [address] PCP - General Family Medicine 01/21/18 [employer] 03/28/24 documented as of this encounter
--- OUTSIDE RECORDS SUMMARY | 2025-03-31 11:07 | XMS_ITS | Encounter Summary ---
Author Organization [employer] Address [address] [facility] 7t [place] [address] Care Team Providers Care Public Relations Counselor Name Role Phone Gemini Chavez MD Primary Care Provide r Reason for Visit * Reason Comments Med Refill Encounter Details Date Type Department Care Team (Late st Contact Info) Description 10/07/2022 Refill [facility] MEDICINE [address] [place], [place] [phone] Gemini Chavez MD [address] [place], [place] [phone] Chronic systolic heart failure (CMS/HCC) Social History [...] documented as of this encounter Care Teams Public Relations Counselor Relationship Specialty Start Date End Date Gemini Chavez MD [address] [place], [place] [phone] PCP - General Family Medicine 01/21/18 [employer] 03/28/24 documented as of this encounter
--- OUTSIDE RECORDS SUMMARY | 2025-03-31 11:07 | XMS_ITS | Encounter Summary ---
Author Organization [employer] Address [address] [facility] 7t [place] [address] Care Team Providers Care Air Conditioning Mechanic Industrial Name Role Phone Gemini hCavez MD Primary Care Provide r Reason for Visit * Reason Onset Date Comments Prior Authorization 06/10/2024 Encounter Details Date Type Department Care Team ([facility] st Contact Info) Description 06/10/2024 Telephone [facility] MED[facility]INE 230 [place], [place] [phone] Gemini Chavez MD [address] [place] [address] Prior Authorization Social History Tobacco Use Types [...] is required on PA. Contact pt at [phone] (arabic) * Telephone Encounter - Rohit Cruz - 06/10/2024 9:00 AM EST Tc from pt requesting a PA for Tirzepatide-Weight Management (Zepbound) 2.5 MG/0.5ML solution auto-injector because pt stated that he received a letter stating that PA got denied. Contact pt: [phone] (Martiniquais) documented in this encounter Plan of Treatment Not on file documented as of this encounter Visit Diagnoses Not on filedocumented in this encounter Additional Health Concerns Assessment Noted Time PHQ-9 Depression Total Score: 0 09/03/19 24 9:55 AM EDT documented as of this encounter Care Teams Air Conditioning Mechanic Industrial Relationship Specialty Start Date End Date Gemini Chavez MD [address] [place] [phone] PCP - General Family Medicine 01/21/18 [employer] 03/28/24 documented as of this encounter
--- OUTSIDE RECORDS SUMMARY | 2025-03-31 11:07 | XMS_ITS | Encounter Summary ---
Author Organization [employer] Address [address] [facility] [address]t [place] [address] Care Team Providers Care Laser Beam Trim Operator Name Role Phone Gemini Chavez MD Primary Care Provide r Reason for Visit * Reason Comments Med Refill Encounter Details Date Type Department Care Team ([facility] st Contact Info) Description 09/08/2022 Refill [facility] MED & PEDS [address] [place], [place] [phone] Umer Sears MD [address] [place], [place] [phone] Seasonal allergies Social History Tobacco Use Types [...] documented as of this encounter Care Teams Laser Beam Trim Operator Relationship Specialty Start Date End Date Gemini Chavez MD [address] [place], [place] [phone] PCP - General Family Medicine 01/21/18 Before the Call 03/28/24 documented as of this encounter
--- OUTSIDE RECORDS SUMMARY | 2025-03-31 11:07 | XMS_ITS | Encounter Summary ---
Author Organization [employer] Address [address] [facility] 7[address] [place] [address] Care Team Providers Care Trace Clerk Name Role Phone Gemini Chavez MD Primary Care Provide r Reason for Visit * Reason Onset Date Comments Appointment Request 08/21/2022 Encounter Details Date Type Department Care Team ([facility] st Contact Info) Description 08/21/2022 Telephone [facility] MEDICINE [address] [place], [place] [phone] Gemini Chavez MD [address] [place] [address] Appointment Request Social History Tobacco Use Types [...] an family emergency. Please contact pt at [phone] documented in this encounter Plan of Treatment Not on file documented as of this encounter Visit Diagnoses Not on filedocumented in this encounter Additional Health Concerns Assessment Noted Time PHQ-9 Depression Total Score: 6 05/16/19 23 1:42 PM EST documented as of this encounter Care Teams Trace Clerk Relationship Specialty Start Date End Date Gemini Chavez MD [address] [place] [address] PCP - General Family Medicine 01/21/18 [employer] 03/28/24 documented as of this encounter
--- OUTSIDE RECORDS SUMMARY | 2025-03-31 11:08 | XMS_ITS | Encounter Summary ---
Author Organization [employer] Address [address] [facility] [address]t [place] [address] Care Team Providers Care Food Service Specialist Name Role Phone Gemini Chavez MD Primary Care Provide r Reason for Visit * Reason Comments Med Change Request Encounter Details Date Type Department Care Team (Late st Contact Info) Description 02/04/2023 Refill [facility] [address] [place], [place] [phone] Marsha Menjivar MD [address] [place] [address] Primary hypertension Social History Tobacco Use Types [...] as of this encounter Care Teams Food Service Specialist Relationship Specialty Start Date End Date Gemini Chavez MD [address] [place] [address] PCP - General Family Medicine 01/21/18 [employer] 03/28/24 documented as of this encounter
--- OUTSIDE RECORDS SUMMARY | 2025-03-31 11:08 | XMS_ITS | Encounter Summary ---
Author Organization [employer] Address [address] [facility] 7t [place] [address] Care Team Providers Care Laser Operator Name Role Phone Gemini Chavez MD Primary Care Provide r Reason for Visit * Reason Onset Date Comments Nurse Triage 03/26/2023 Encounter Details Date Type Department Care Team ([facility] st Contact Info) Description 03/26/2023 Telephone [facility] MED[facility] 230 [place], [place] [phone] Gemini Chavez MD [address] [place] [address] Nurse Triage Social History Tobacco Use Types [...] 03/26/2023 11:47 AM EST Triage call with Person [place] Att[place] [id number] Pt reports ingrown toenail great toe on left foot for 3 days now. Pt reports it is painful and causes some limping when ambulating. Pt denies redness, drainage. Pt requests a referral to back gray cloth washer which was very helpful last time this happened. Pt is advised will send this request to PCP and nursing team for follow up and Pt agreed. Pt declined to come to [facility] only wants back gray cloth washer to cut this toenail. Protocol Used: Information [...] accepted this outcome Please contact pt at [phone] (japanese interpreter needed) documented in this encounter Plan of Treatment Not on file documented as of this encounter Visit Diagnoses Not on filedocumented in this encounter Additional Health Concerns Assessment Noted Time PHQ-9 Depression Total Score: 6 05/16/19 23 1:42 PM EST documented as of this encounter Care Teams Laser Operator Relationship Specialty Start Date End Date Gemini Chavez MD [address] [place] [address] PCP - General Family Medicine 01/21/18 [employer] 03/28/24 documented as of this encounter
--- OUTSIDE RECORDS SUMMARY | 2025-03-31 11:08 | XMS_ITS | Data Portability ---
Author Organization [employer] [facility], [email or web address] Address [address] [place] [address] Care Team Providers Care Textile Technologist Name Role Phone RONALDO RAZO Primary Care Provider [phone] HIM SUKH OTHER Assessment Encounter Date Assessment Date Assessment LastModified by Organization Details LastModified Time 04/21/2024 04/21/2024 I provided real -time medical direction via phone for this encounter and was available for additional phone-based assistance as needed. I have reviewed and agree with the Assessment and Plan as documented by the Solar Crew Member. Patient given the opportunity to ask questions. [...] pressure. No change in functional status. Per shelf stocker on the scene, vital signs are stable [...] Assessment and Plan as documented by the Solar Crew Member. We discussed the diagnostic uncertainty of home [...] to call 911- verbalized understanding of instruction [email or web address] Not available 04/27/2024 20:25:46 09/27/2024 09/27/2024 Impression: [...] of any new or worsening serious symptoms [email or web address] Not available 09/27/2024 12:16:54 09/29/2024 09/29/2024 Impression: 68yo/m with pmhx as above presenting with 3-4 days of persistent respiratory symptoms. Patient states symptoms began 4 days ago, [facility] Evaluation at that time [...] of any new or worsening serious symptoms [email or web address] Not available 09/29/2024 15:23:11 10/01/2024 10/01/2024 I provided real -time medical direction via phone for this encounter, and was available for additional phone based assistance as needed. I have reviewed and agree with the Assessment and Plan as documented by the Solar Crew Member. We discussed the diagnostic uncertainty of home visits and the risk associated with this.. The patient given the opportunity to ask questions. [email or web address] Not available 10/01/2024 21:44:54 Plan of Treatment Reminders Order Date Submit Date Provider Last Modified By Organization Details Last Modified Time Details Appointments None recorded. Lab BMP, serum or plasma 2024 025 [facility], [address] [place] [address], [phone] 20:26:25 rapid SARS CoV 2 Ag, QL IA, respiratory specimen [address], [phone] 13:07:32 rapid flu (A+B) 2024 025 W[facility], [address] [place] [address], [address] 5 13:15:39 rapid SARS CoV 2 Ag, QL IA, respiratory specimen 2023 024 [email or web address] 0 [facility], [address] [place] [address], [id number] 4 20:24:15 rapid flu (A+B) 2023 024 [email or web address] 0 [facility], [address] [place] [address], [address] 4 20:24:15 BMP, serum or plasma 2023 024 [email or web address] 0 [facility], [address] [place] [address], [address] [place] [address] 4 20:24:15 rapid flu (A+B) 2023 024 [email or web address] [facility], [address] [place] [address], [address] 4 10:38:31 rapid SARS CoV 2 Ag, QL IA, respiratory specimen 2023 024 [email or web address] [facility], [address] [place] [address], [address] [place] [address] 4 10:38:31 Referral None recorded. Procedures None recorded. Surgeries None recorded. Imaging electrocard iogram 2024 025 [facility] - [facility], [address] [place] [address], [address] 5 21:51:19 electrocard iogram 2023 024 [email or web address] 0 [facility], [address] [place] [address], [address] 4 20:24:15 Medication Orders ipratropium 0.5 mg-albutero l 3 mg (2.5 mg base)/3 mL nebulizatio n soln 2024 025 [email or web address] 0 [facility] #2071, [address] [place], [address], 5 13:35:51 ipratropium 0.5 mg-albutero l 3 mg (2.5 mg base)/3 mL nebulizatio n soln 2024 025 [email or web address] 84 [facility]acy #2071, [address] [place], [address], 5 15:23:32 amoxicillin 875 mg-potassiu m clavulanate 125 mg tablet 2024 025 [facility]/Pharmacy #2071, [address] [place], [address], 5 15:23:55 prednisone 20 mg tablet 2024 025 [facility] [address] [place] [address], [address], 5 12:07:58 ipratropium 0.5 mg-albutero l 3 mg (2.5 mg base)/3 mL nebulizatio n soln 2024 025 [email or web address] 84 [facility] #2071, [address] [place], [address], 5 12:07:56 albuterol sulfate 2.5 mg/3 mL (0.083 %) solution for nebulizatio n 2024 025 [facility]/Pharmacy #2071, [address] [place], [address], 5 12:07:59 fluticasone propionate 50 mcg/actuati on nasal spray,suspe nsion 2023 024 [facility]armacy #2071, [address] [place], [address], 4 12:56:56 Saline Nasal 0.65 % spray aerosol 2023 024 WERNER [facility], [address] [place], [address], 4 12:56:56 amoxicillin 500 mg capsule 2023 024 [facility]acy #2071, [address] [place], [address], 4 12:56:55 sodium chloride 0.9 % intravenous solution 2023 024 [email or web address] 0 [facility]armacy #2071, [address] [place], [address], 4 20:24:15 prednisone 20 mg tablet 2023 024 [facility] [address] [place], [address], 4 10:38:33 prednisone 20 mg tablet 2023 [email or web address] [facility] [address] [place], [address], 4 10:38:31 Patient TargetsNo targets recorded. Patient [...] ve Not Available [facility] [address] [place] [address], [address] 04/21/2024 10:37:26 04/21/20 24 04/21/2024 rapid flu (A+B) Flu negati ve Not Available [facility] [address] [place] [address], [address] 04/21/2024 10:37:25 04/27/20 24 04/27/2024 rapid flu (A+B) Flu negati ve Not Available [facility] [address] [place] [address], [address] 04/27/2024 12:57:09 04/27/20 24 04/27/2024 rapid SARS CoV 2 Ag, QL IA, respi rator y speci men rapid SARS CoV 2 Ag, QL IA, respiratory specimen negati ve Not Available [facility] [address] [place] [address], [address] 04/27/2024 12:57:08 09/28/19 25 09/27/2024 rapid flu (A+B) Flu negati ve Not Available [facility] [address] [place] [address], [address] 09/27/2024 12:06:07 09/28/19 25 09/27/2024 rapid SARS CoV 2 Ag, QL IA, respi rator y speci men rapid SARS CoV 2 Ag, QL IA, respiratory specimen negati ve Not Available [facility] [address] [place] [address], [address] 09/27/2024 12:06:06 03/31/20 24 03/31/2024 elect rocar diogr am No observ ation record ed. [email or web address] [facility] - [address], [address] 03/31/2024 18:36:06 04/27/20 24 04/27/2024 elect rocar diogr am No observ ation record ed. [facility] - [address], [address] 04/27/2024 20:22:51 10/02/19 25 10/01/2024 elect rocar diogr am No observ ation record ed. [email or web address] [address], [address] 10/01/2024 20:26:07 Result Notes None recorded. Medical Equipment None Reported. Allergies Allergen ID Allergen Name Allergen Category Reaction Reaction Severity Criticality Documentation Date Start Date Code Code System Note Provider Name and Address Organization Details Recorded Time 85862 Iodinated contrast media (substanc e) medicatio n Not available Not available Not available 09/29/2024 78432 2003 SNOMED Not Available [facility] - production [...] Available Not Available N ot Available [employer]Style [place] Lite kit USE TO TEST BLOOD SUGAR [...] Vitals Date Recorded Respiratory rate Oxygen saturation Heart rate Body temperature Systolic And Diastolic Provider Name and Address Organization Details Last Updated DateTime 5 18 /min 97 % 84 /min 97.8 [degF] 118/68 mm[Hg] Not Available [facility] - production 5 11:58:08 Date Recorded Respiratory rate Heart rate Body temperature Oxygen saturation Systolic And Diastolic Provider Name and Address Organization Details Last Updated DateTime 5 20 /min 80 /min 98.5 [degF] 97 % 150/90 mm[Hg] Not Available [employer] 15:07:54 Date Recorded Body height Body mass index (BMI) Body weight Provider Name and Address Organization Details Last Updated DateTime 10/01/2024 162.56 cm 36 kg/m2 69353.4 g Davina Garner MD [address] [place] [address], [id number] 10/01/2024 13:25:45 Date Recorded Oxygen saturation Heart rate Body temperature Respiratory rate Systolic And Diastolic Provider Name and Address Organization Details Last Updated DateTime 5 97 % 76 /min 97.6 [degF] 20 /min 118/60 mm[Hg] Not Available [employer] 13:23:31 Date Recorded Body height Body mass index (BMI) Body weight Provider Name and Address Organization Details Last Updated DateTime 04/27/2024 162.56 cm 33.5 kg/m2 29304.51 g Davina Garner MD [address] [place] [address],[address] [place] [address], [id number] 04/27/2024 20:03:55 Date Recorded Oxygen saturation Body temperature Respiratory rate Heart rate Systolic And Diastolic Provider Name and Address Organization Details Last Updated DateTime 4 98 % 98.1 [degF] 20 /min 95 /min 150/100 mm[Hg] Not Available [employer] 4 11:24:31 Social History None recorded. Functional Status None recorded. Mental Status None recorded. Family History Nothing Reported. Medical History No medical history recorded. Past Encounters Encounter ID Performer Location Encounter Start Date Encounter Closed Date Diagnosis/Indication Diagnosis SNOMED-CT Code Diagnosis ICD10 Code Diagnosis IMO Codes Diagnosis Note [id number] Allison Newman MD [address] [phone] 04/11/2022 18:32:13 04/15/2022 15:46:34 Cough 47824288 R05.9 [id number] [facility]ina [facility] MD [facility] [address] [place] [address] 01/07/2023 14:14:00 01/07/2023 22:56:53 Essential hypertension 40084065 I10 Patient exam is benign. Patient reassured/ his blood pressure is normal when taken with the medic cough. The medic measured the patient's blood pressure with his 5-year-old home machine and got 135/112 thus it is the patient's machine that is giving erroneous readingsNo te sent to [facility] to reach out to the critical care rn to assist the patient in obtaining a new home blood pressure monitor. Advised to continue all his regular medication s and follow-up with his PCP as needed [id number] Davina Garner MD [facility] [address] [place] [phone] 01/08/2023 15:21:28 01/08/2023 23:59:09 Viral upper respiratory tract infection 365802396 J06.9 And viral pharyngiti s-advised to gargle [...] pcp. Sandra Bloom MD [facility] [address] [place] [phone] 06/23/2023 18:11:30 06/24/2023 10:34:59 Dizziness [id number] R42 [id number] Marlyn Casas MD [facility] [address] [place] [phone] 08/05/2023 10:57:00 08/05/2023 16:00:41 Asthma 017555155 J45.909 Exacerbati on of moderate persistent asthma 326290631 J45.41 [id number] Eric Israel MD [facility] [address] [place] [phone] 08/13/2023 12:51:38 08/13/2023 20:11:05 Acute exacerbation of chronic obstructive pulmonary disease 051689201 J44.1 The patient has a flare-up of his COPD. He will continue his current treatments . [id number] Eric Israel MD [facility] [address] [place] [phone] 11/14/2023 12:02:23 11/14/2023 21:31:15 Vertigo 754970184 R42 This 67-year-ol d male with a past history of vertigo developed mild vertigo today. He has taken Meclizine in the past with good relief. I ordered Meclizine 50 mg now. He will follow-up with his PCP if the vertigo persists. The patient agreed with this plan. [id number] Thomas Lyon MD [facility] [address] [place] [phone] 11/27/2023 21:44:10 11/28/2023 10:18:17 Headache 73533294 R51.9 [id number] Jeancarlos Gonsales MD [facility] [address] [place] [phone] 03/20/2024 14:41:13 03/22/2024 13:41:42 Orthostatic hypotension 25367996 I95.1 Atrial fibrillation 4943 6004 I48.91 [id number] HAN MARIE MD [facility] [address] [place] [phone] 03/31/2024 18:19:08 04/01/2024 11:10:35 Dizziness 468448524 R42 Evaluation in the field was performed by my shelf stocker colleague, as noted above, I provided real-time [...] , palpitatio ns or any other concerns. [id number] Marlyn Casas MD [facility] [address] [place] [id number] 04/21/2024 10:14:37 04/22/2024 00:16:20 Asthma-chronic obstructive pulmonary disease overlap syndrome [id number] 6695003 J44.9 Viral uppe r respiratory tract infection 709406645 J06.9 [id number] Davina Garner MD [facility] [address] [place] [phone] 04/27/2024 11:24:18 04/27/2024 22:19:18 Headache 99612579 R51.9 w/ dizziness- possibly sinusitisS lightly less [...] Tylenol max 3500 mg/day based on weight. [id number] Bladimir Ureña MD [facility] [address] [place] [phone] 09/27/2024 11:58:02 09/27/2024 18:16:19 Viral upper respiratory tract infection 949542675 J06.9 851731 Acute exac erbation of chronic obstructive pulmonary disease 986576219 J44.1 091803 [id number] Bladimir Ureña MD [facility] [address] [place] [phone] 09/29/2024 15:07:52 09/29/2024 18:34:43 Persistent cough 848020523 R05.3 362551 [id number] Davina Garner MD [facility] [address] [place] [id number] 10/01/2024 13:23:27 10/02/2024 14:08:40 Dyspnea 955826926 R06.02 37238 EKG reveals A-fib at 90 with biphasic [...] is agreeable. He request to go to [facility]. Report called to [facility] ED staff. Health Concerns Section Related Observation LastModified by Organization Detai ls LastModified Time None Recorded Concern Status LastModified by Organization Details LastModified Time None Recorded Advance Directives Directive None Recorded Payers Insurance Date Sequence Insurance Name Policy Number Policy Young Covered Member ID Young Member ID Guarantor Name 03/31/2024 1 [facility] - DOS PRIOR TO 2022 - DUAL ELIGIBLE (MEDICARE REPLACEMENT/AD VANTAGE - HMO) Min Arauz [id number] Min Arauz 09/27/2024 1 [facility] - DOS ON OR AFTER 2022 - DUAL ELIGIBLE - CORRECTION OPTIONS AND ONE CARE (MEDICARE REPLACEMENT/AD VANTAGE - HMO) Min Arauz [id number] Min Arauz Notes Date Note Type Note [...] morning. Patient would like to be re-evaluated. Solar Crew Member Organization Information for Cheikh Mejia Legal Name: [employer]. Address: [address] [place] [address], [place]: Parish Ruiz MD CLIA No.: [id number] Solar Crew Member POC Test Results from Cheikh Mejia EKG [...] ...................... ...................... ...................... ...................... ...................... ...................... ......... Solar Crew Member Note From Cheikh Mejia: Dispatched for the scheduled visit for the male patient with a headache. pt. was found alert and oriented x3 sitting in bed c/o of a severe headache from yesterday with dizziness upon sitting up. pt. noted he had been seen by [facility] on the but could not remember [...] in all extremities -dcaptbtls -stroke scale findings. [facility] contacted and ordered COVID and FLU swab, BMP and orthostatic vital signs while sitting and standing in addition. 21 gauge butterfly LAC performed for BMP. all results forwarded and [facility] then ordered a 12 lead ekg and IV with 750 ml Normal Saline. IV established 18 gauge left forearm-normal saline IV drip 750 ml. all results forwarded to [facility] with changed after normal saline. [facility] noted she would send amoxicillin and Fluticasone and saline nasal spray to the patients pharmacy for possible nasal infection. red flag warnings discussed and noted to call 911 if headache or dizziness worsened any slurred speech, weakness, facial droop or syncope occurred. all times are approx.report completed by rob mejia. [facility] Lab Orders: rapid SARS CoV 2 Ag, QL IA, respiratory specimen: Performed ...................... ...................... ...................... ...................... ...................... ...................... ......... [facility] Consulted: Davina Garner ...................... ...................... ...................... ...................... ...................... ...................... ......... Disposition: FulfilledSEGMD: pat seen by [facility] on 04/21 and diagnosed with COPD [...] Disease, Obesity. Davina Garner MD [address] [facility],[address], [place], [address], [place] [employer] 04/27/2024 20:33:33 09/27/2024 text/html ROS as noted [...] seek emergency care. Jamie Del Rosario RN Solar Crew Member Organization Information for Brendan Howe [employer] Legal Name: [employer]. Address: [address] [place] [id number], [place]: Parish Ruiz MD [facility] No.: [id number] Solar Crew Member POC Test Results from Brendan Howe - ALS Rapid influenza antigen (11:55:06) Flu: - Attachments uploaded as part of this test result can be found under Documents section. Rapid COVID antigen (11:55:07) COVID: - Attachments uploaded as part of this test result can be found under Documents section. ...................... ...................... ...................... ...................... ...................... ...................... ......... Solar Crew Member Note From Brendan Howe: Pt seen for [...] Covid & flu A/B POC all negative. [facility] contacted and advised of Pt complaint, presentation and exam findings. [facility] orders Duoneb updraft and will send prescription for PO Prednisone to Pt's pharmacy, Pt allergies confirmed. [facility] orders for Pt to use his home nebulizer tx Q4-6 hrs. Duoneb administered. Pt advised of all [facility] tx plan and recommendations. Pt understanding and agreeable to this. Pt has no further questions or concerns. Call closed. [facility] Lab Orders: rapid SARS CoV 2 Ag, QL IA, respiratory specimen: Performed rapid flu (A+B): Performed [facility] Medication Orders: ipratropium 0.5 mg-albuterol 3 mg (2.5 mg base)/3 mL nebulization soln: Administered ...................... ...................... ...................... ...................... ...................... ...................... ......... [facility] Consulted: Bladimir Ureña ...................... ...................... ...................... ...................... ...................... ...................... ......... Disposition: Fulfilled Bladimir Ureña MD [address] [place] [address],[address], [place], [address], [employer] [facility] [employer] 09/27/2024 12:32:54 09/29/2024 text/html ROS as noted in the HPI HPI: No hops farmworker needed as this marketing underwriter speaks Comoran. Call returned to Min Cano via [employer] as this marketing underwriter is remote to triage below. Reports having sx of cough, intermittent SOB since Friday. Denies any CP. PT having intermittent wheezing. No fever. Pt having ST and runny nose. NO homekit for COVID-19. Pt alert, oriented. Speaking clearly with noted hoarseness. Pt offered our walk in center. Prefers [facility] referral. Confirmed Demographics and allergies. ...................... ...................... [...] ...................... ...................... ...................... ...................... ...................... ...................... ......... Solar Crew Member Note From Chavo Romero: SC12 dispatched to address listed above for the report of a male republican with breathing issues. Arrival on scene, patient [...] Patient advised that he was visited by [facility] over 09/27 for same complaints, tested [...] etc. Patient vital signs obtained as noted. [facility] consulted, provided orders for a Duoneb treatment, advised he would send prescription for antibiotics to patient preferred pharmacy. Above DuoNeb treatment (3mg Albuterol and 0.5mg Ipratropium [place]) was administered without incident with reported improvement, six patient rights verified prior. Patient reported that he was feeling much better after nebulizer treatment, advised that he felt okay staying home. Patient advised to continue taking his nebulizer up to 4 times a day per [facility], Prednisone, and Antibiotics when he picks it up. Red flags were discussed with patient, advised to call 911 if he begins to experience life threatening symptoms. SC12 Clear. [facility] Medication Orders: ipratropium 0.5 mg-albuterol 3 mg (2.5 mg base)/3 mL nebulization soln: Administered ...................... ...................... ...................... ...................... ...................... ...................... ......... [facility] Consulted: Bladimir Ureña ...................... ...................... ...................... ...................... ...................... ...................... ......... Disposition: Fulfilled Bladimir Ureña MD [address] [facility],[address], [place], [address], [employer] [place] 09/29/2024 17:30:47 10/01/2024 text/html ROS as noted in the HPI HPI: 68 y.o male complains of Breathing ProblemsDee from [facility] calling reporting patient is having SOB and reports difficulty with his asthma. Patient is Comoran speaking primarily, hops farmworker# [id number] used for triage assessment. Patient reports he [...] DisorderPMH Reviewed at 10/01/202416Allergies Reviewed at 10/01/2024:16 Solar Crew Member Organization Information for Romero Tony Legal Name: [employer]. Address: [address] [place] [address], [place]: Parish Ruiz MD CLIA No.: [id number] Solar Crew Member POC Test Results from [facility]ero TonyTAT [facility] (13:59:58) Na: 137 mEq/L K: 4.9 [...] ...................... ...................... ...................... ...................... ...................... ...................... ......... Solar Crew Member Note From Romero Tony: SC12 dispatched to the address listed above for the report of a male republican with shortness of breath. Arrival on scene, [...] reports that he has been visited by [facility] 2 separate times over the past week, prescribed Prednisone which he has been taking for 4 days and Augmentin which he has only been taking for a day. Patient reports symptoms management with Albuterol Nebulizer up to 4 times a day, last nebulizer about 20 minutes prior to [facility] arrival with reported improvement. Patient reports he begins to feel short of breath again within 20 minutes of finishing nebulizer treatment. Patient vital signs obtained as noted. [facility] consulted, provided orders for DuoNeb treatment, BMP, and 12 lead EKG. DuoNeb treatment administered with 3mg Albuterol/0.5mg Atrovent with reported improvement, six patient rights verified, [facility] noted patient began to experience labored breathing again shortly after finishing DuoNeb Treatment. Blood draw completed via 21 gauge butterfly needle in right forearm, removed at end of blood draw. ISTAT BMP performed as noted [facility] 12 Lead EKG performed, uploaded to [facility] for remote interpretation. [facility] consulted again, recommended that patient go to the ED for imaging which patient agreed to. 911 called for patient, Maricel PEREZ arrival on scene shortly after. Patient report given to Maricel PEREZ and care was transferred. EMS assisted as needed until transport initiated. SC12 Clear. [facility] Lab Orders: BMP, serum or plasma: Performed [facility] [place] Orders: ipratropium 0.5 mg-albuterol 3 mg (2.5 mg base)/3 mL nebulization soln: Administered ...................... ...................... ...................... ...................... ...................... ...................... ......... [facility] Consulted: Davina Garner ...................... ...................... ...................... ...................... [...] No productive cough. Davina Garner MD [address] [facility],[address], [place], [address], [employer] 10/01/2024 21:50:38
--- OUTSIDE RECORDS SUMMARY | 2025-03-31 11:08 | XMS_ITS | Encounter Summary ---
Author Organization [employer] Address [address] [facility] 7t [place] [address] Care Team Providers Care Supervisor Shuttle Preparation Name Role Phone Gemini Chavez MD Primary Care Provide r Reason for Visit * Reason Comments Med Change Request Encounter Details Date Type Department Care Team ([facility] st Contact Info) Description 01/08/2023 Refill [facility] MEDICINE [address] [place], [place] [phone] Marsha Menjivar MD [address] [place], [place] [phone] Chronic obstructive pulmonary disease, unspecified COPD type (CMS/[facility]) Social History Tobacco Use [...] for Nebulizer signed and faxed to [facility]. documented in this encounter Plan of Treatment Not on file documented as of this encounter Visit Diagnoses Diagnosis Chronic obstructive pulmonary disease, unspecified COPD type (CMS/HCC) (HCC) documented in this encounter Additional Health Concerns Assessment Noted Time PHQ-9 Depression Total Score: 6 05/16/19 23 1:42 PM EST documented as of this encounter Care Teams Supervisor Shuttle Preparation Relationship Specialty Start Date End Date Gemini Chavez MD [address] [place] [address] PCP - General Family Medicine 01/21/18 [employer] 03/28/24 documented as of this encounter
--- OUTSIDE RECORDS SUMMARY | 2025-03-31 11:08 | XMS_ITS | Patient Health Record ---
Author Organization [facility] Address [address] [place] [address] Care Team Providers Care Cardiology Coordinator Name Role Phone Gemini Fisher M.D. Primary Care Provider Larry Angeles Jr Unavailable Katherine FORTE, [employer] Unavailable Unavailable Allergies No Known Allergies Reason For Referral No Information Medications Medication SIG (Take, Route, Frequency, Duration) Notes Start Date End Date Status Creon [id number] UNIT Caps ule Delayed Release Particles TOME 2 C PSULAS POR V A ORAL 4 TIMES A DAY FOR 30 DAYS ADMINISTER WITH MEALS AND/OR SNACKS Oral; Duration: 30 Active Simethicone Ultra Strength 1 80 MG Capsule Oral; Duration: 30 Active Flovent HFA 220 MCG/ACT Aerosol Inhalati on; Duration: 60 Active Furosemide 40 MG Tablet Oral; Duration: 90 Active Acetaminophen Extra Strength 500 MG Tablet TOME FAUSTINA TABLETA POR V A ORAL CADA SEIS HORAS CUANDO SEA NECESARIO MAX 8 TABS DAILY Oral; Duration: 5 Active Rosuvastatin Calcium 40 MG Tablet Oral; Duration: 90 Active Vitamin E 45 MG (100 UNIT) Capsule Oral; Duration: 30 Active Albuterol Sulfate (2.5 MG/3M L) 0.083% Nebulization Solution Inhalation; Duration: 17 Active Metoprolol Succinate ER 200 MG Tablet Extended Release 24 Hour TOME FAUSTINA TABLETA POR V A ORAL TODOS LOS D Oral; Duration: 90 Active Lisinopril 40 MG Tablet Oral; Duration: 90 Active Vitamin D3 50 MCG (2000 UT) Tablet TOME FAUSTINA TABLETA TODOS LOS D Oral; Duration: 90 Active Levothyroxine Sodium 100 MCG Tablet Oral; Duration: 90 Active Zolpidem Tartrate 10 MG Tablet Oral; Duration: 30 Active Loratadine 10 MG Tablet TOME FAUSTINA TABLETA POR VIA ORAL TODOS LOS LANDEROS CUANDO SEA NECESARIO FOR ALLERGIES Oral; Duration: 90 Active hydroCHLOROthiazide 12.5 MG Tablet TOME FAUSTINA TABLETA TODOS LOS D Oral; Duration: 90 Active Meclizine HCl 25 MG Tablet PLEASE SEE AT TACHED FOR DETAILED DIRECTIONS Oral; Duration: 10 Active Pantoprazole Sodium 40 MG Tablet Delayed Release TOME FAUSTINA TABLETA TODOS LOS D Oral; Duration: 90 Active clonazePAM 1 MG Tablet TOME FAUSTINA TABLETA DOS VECES AL D A CUANDO SEA NECESARIO Oral; Duration: 30 Active Incruse Ellipta 62.5 MCG/ACT Aerosol Powder Breath Activated INHALE 1 PUFF BY MOUTH EVERY DAY AT THE SAME TIME EACH DAY Inhalation; Duration: 30 Active Social History Tobacco Use: Social History Observation Description Date Details (start date - stop date) Never Smoker NA - NA Social History Drugs/Alcohol: Social Info Question Answer Notes Alcohol Screen Did you have a drink containing alcohol in the past year? No Points 0 Interpretation Negative Tobacco Use: Social Info Question Answer Notes Tobacco Use/Smoking Patient is a nonsmoker Additional Details Category Social Info Options Details Miscellaneous: Marital status: Occupation: disability Problems Problem Type SNOMED Code ICD Code Onset Dates Problem Status W/U Status Risk Notes Problem Dysphagia (91153089) Dysphagia (R13.10) Active confirmed Problem Dysphagia (84624921) Dysphagia, unspecified type (R13.10) Active confirmed Problem Barium swallow abnormal (565466518) Abnormal barium swallow (R93.3) Active confirmed Problem Gastroesophageal reflux disease (579947464) Gastroesophageal reflux disease, unspecified whether esophagitis present (K21.9) Active confirmed Problem Presbyesophagus (058524333) Presbyesophagus (K22.89) Active confirmed Plan Of Treatment Future Test Test Name Order Date UPPER GI ENDOSCOPY 03/13/2023 Insurance Providers Payer Name Payer Address Payer Phone Subscriber Number Group Number Insured Name Patient Relationship to Insured Coverage Start Date Coverage End Date [facility] [address] Attn Claims CLIFF [place] [id number] [id number] DAILY Self - patient is the insured Medical (General) History Medical History History ICD Code CE/COPD hypertension Fatty liver pulmonary nodule Elevated BMI Atrial fibrillation Hypothyroidism Gastroesophageal reflux disease/dysphagi a Surgical History Surgery Date(Month/Year) Cataract surgery Umbilical hernia repair Tonsillectomy
--- OUTSIDE RECORDS SUMMARY | 2025-03-31 11:08 | XMS_ITS | Encounter Summary ---
Author Organization [employer] Address [address] [facility] 7t [place] [address] Care Team Providers Care Insulation Batting Machine Operator Name Role Phone Gemini Chavez MD Primary Care Provide r Encounter Details Date Type Department Care Team (Late st Contact Info) Description 02/19/2023 Abstract [facility] MEDICINE 230 [place], [place] [phone] Gemini Chavez MD [address] [place], [place] [phone] Social History Tobacco Use Types Packs/Day Years [...] documented as of this encounter Care Teams Insulation Batting Machine Operator Relationship Specialty Start Date End Date Gemini Chavez MD [address] [place] [address] PCP - General Family Medicine 01/21/18 [email or web address] 03/28/24 documented as of this encounter
--- OUTSIDE RECORDS SUMMARY | 2025-03-31 11:08 | XMS_ITS | Encounter Summary ---
Author Organization [employer] Address [address] [facility] 7t [place] [address] Care Team Providers Care Gunner'S Mate M Name Role Phone Gemini Chavez MD Primary Care Provide r Reason for Visit * Reason Onset Date Comments Referral 03/14/2023 Encounter Details Date Type Department Care Team ([facility] st Contact Info) Description 03/14/[address] [facility] MEDICINE 230 [place], [place] [phone] Gemini Chavez MD 230 [place], [place] [phone] Referral Social History Tobacco Use Types Packs/Day [...] t he electric, gas, oil or water [employer] threatened to shut off services in your [...] documented as of this encounter Care Teams Gunner'S Mate M Relationship Specialty Start Date End Date Gemini Chavez MD [address] [place] [address] PCP - General Family Medicine 01/21/18 [employer] 03/28/24 documented as of this encounter
--- OUTSIDE RECORDS SUMMARY | 2025-03-31 11:08 | XMS_ITS | Encounter Summary ---
Author Organization [employer] Address [address] [facility] 7t [place] [address] Care Team Providers Care Banana Expert Name Role Phone Gemini Chavez MD Primary Care Provide r Encounter Details Date Type Department Care Team (Late st Contact Info) Description 07/10/2023 Orders Only [facility] MEDICINE 230 [place], [place] [phone] Gemini Chavez MD 230 [place], [place] [phone] Mixed stress and urge urinary incontinence (Primary [...] t he electric, gas, oil or water [employer] threatened to shut off services in your [...] documented as of this encounter Care Teams Banana Expert Relationship Specialty Start Date End Date Gemini Cahvez MD [address] [place] [address] PCP - General Family Medicine 01/21/18 [employer] 03/28/24 documented as of this encounter
--- OUTSIDE RECORDS SUMMARY | 2025-03-31 11:08 | XMS_ITS | Clinical Summary ---
Author Organization [facility] Address [address] [facility] [address] [place] [address] Phone Care Team Providers Care Client Engagement Specialist Name Role Phone Curt Richey MD Primary [...] Medical Devices Not on file Insurance [address] [place] [id number] [facility] ONE CARE MEDICARE REPLACEMENT CLIFF DONAH[employer] [facility] MEDICARE REPLACEMENT MEDICARE REPLACEMENT CARE MEDICARE [place] [address] [place] [address] ONE CARE MEDICARE REPLACEMENT Care Teams Client Engagement Specialist Relationship Specialty Start Date End Date Curt Richey MD PCP - General Cardiology 12/21/19 Additional Source Comments The information contained in this document represents components of the legal health record. It is not the complete legal health record.[facility]
--- OUTSIDE RECORDS SUMMARY | 2025-03-31 11:08 | XMS_ITS | Encounter Summary ---
Author Organization [facility] Address [address] [facility] [address] [place] [address] Phone Care Team Providers Care Police Crime Scene Technician Name Role Phone Curt Richey MD Primary Care Provider + Encounter Details Date Type Department Care Team (Latest Contact Info) Description 12/24/2019 Ancillary [facility] [address] [place] [address] [place] [address] Curt Richey MD [address] [place] [address] [email or web address] Atrial fibrillation, unspecified type Social History Tobacco [...] type documented in this encounter Care Teams Police Crime Scene Technician Relationship Specialty Start Date End Date Curt Richey MD [email or web address] PCP - General Cardiology 12/21/19 documented as of this encounter Additional Source Comments The information contained in this document represents components of the legal health record. It is not the complete legal health record.[facility]
--- OUTSIDE RECORDS SUMMARY | 2025-03-31 11:08 | XMS_ITS | Encounter Summary ---
Author Organization [employer] Address [address] [facility] 7t [place] [address] Care Team Providers Care Client Manager Name Role Phone Gemini Chavez MD Primary Care Provide r Encounter Details Date Type Department Care Team (Late st Contact Info) Description 01/22/2023 Orders Only [facility] MEDICINE 230 [place], [place] [phone] Gemini Chavez MD 230 [place], [place] [phone] COPD with asthma (CMS/HCC) Social History Tobacco [...] Visit Diagnoses Diagnosis COPD with asthma (CMS/HCC) ([facility]) documented in this encounter Additional Health Concerns Assessment Noted Time PHQ-9 Depression Total Score: 6 05/16/19 23 1:42 PM EST documented as of this encounter Care Teams Client Manager Relationship Specialty Start Date End Date Gemini Chavez MD 230 [place], [place] [phone] PCP - General Family Medicine 01/21/18 [employer] 03/28/24 documented as of this encounter
--- OUTSIDE RECORDS SUMMARY | 2025-03-31 11:09 | XMS_ITS | Encounter Summary ---
Author Organization [employer] Address [address] [facility] 7t [place] [address] Care Team Providers Care Hooker On Name Role Phone Gemini Chavez MD Primary Care Provide r Encounter Details Date Type Department Care Team (Late st Contact Info) Description 06/18/2024 Orders Only [facility] MEDICINE 230 [place], [place] [phone] Gemini Chavez MD 230 [place], [place] [phone] Social History Tobacco Use Types Packs/Day Years [...] as of this encounter Care Teams Hooker On Relationship Specialty Start Date End Date Gemini Chavez MD [address] [place] [address] PCP - General Family Medicine 01/21/18 [email or web address] 03/28/24 documented as of this encounter
--- OUTSIDE RECORDS SUMMARY | 2025-03-31 11:09 | XMS_ITS | Encounter Summary ---
Author Organization [facility] Address [address] [place] [address] Phone Care Team Providers Care Director Of Culture Name Role Phone Curt Richey MD Primary Care Provider + Encounter Details Date Type Department Care Team (Late st Contact Info) Description 12/24/2019 Ancillary Orders [facility] [address] [facility] 3rd Floor, [address] [place] [address] Curt Richey MD [address] [place] [address] Social History Tobacco Use Types Packs/Day Years [...] on filedocumented in this encounter Care Teams Director Of Culture Relationship Specialty Start Date End Date Curt Richey MD PCP - General Cardiology 12/21/19 documented as of this encounter Additional Source Comments The information contained in this document represents components of the legal health record. It is not the complete legal health record.[facility]
--- OUTSIDE RECORDS SUMMARY | 2025-03-31 11:09 | XMS_ITS | Encounter Summary ---
Author Organization [employer] Address [address] [facility] 7[address] [place] [address] Care Team Providers Care Field Aide Name Role Phone Gemini Chavez MD Primary Care Provide r Reason for Visit * Reason Comments Med Refill Encounter Details Date Type Department Care Team (Late st Contact Info) Description 10/20/2023 Refill [facility] [address] [place], [place] [phone] Gemini Chavez MD [address] [facility] [place] [address] Seasonal allergies Social History Tobacco Use Types [...] as of this encounter Care Teams Field Aide Relationship Specialty Start Date End Date Gemini Chavez MD [address] [place] [address] PCP - General Family Medicine 01/21/18 [employer] 03/28/24 documented as of this encounter
--- OUTSIDE RECORDS SUMMARY | 2025-03-31 11:09 | XMS_ITS | Encounter Summary ---
Author Organization [employer] Address [address] [facility] 7t [place] [address] Care Team Providers Care And Taxi Instructor Bus Trolley Name Role Phone Gemini Chavez MD Primary Care Provide r Reason for Visit * Reason Comments Med Refill Encounter Details Date Type Department Care Team ([facility] st Contact Info) Description 05/08/2024 Refill [facility] MEDICINE 230 [place], [place] [phone] Gemini Chavez MD 230 [place] [address] Class 1 obesity due to excess calories [...] documented as of this encounter Care Teams And Taxi Instructor Bus Trolley Relationship Specialty Start Date End Date Gemini Chavez MD [address] [place] [address] PCP - General Family Medicine 01/21/18 [employer] 03/28/24 documented as of this encounter
--- OUTSIDE RECORDS SUMMARY | 2025-03-31 11:09 | XMS_ITS | Encounter Summary ---
Author Organization [employer] Address [address] [facility] 7t [place] [address] Care Team Providers Care Grain Elevator Operator Name Role Phone Gemini Chavez MD Primary Care Provide r Encounter Details Date Type Department Care Team (Late st Contact Info) Description 05/10/2024 Orders Only [facility] MEDICINE 230 [place], [place] [phone] Gemini Chavez MD 230 [place], [place] [phone] Stage 3 chronic kidney disease, unspecified whether [...] whether stage 3a or 3b CKD (CMS/HCC) ([facility])- Primary Class 2 severe obesity due to excess calories with serious comorbidity and body mass index (BMI) of 38.0 to 38.9 in adult documented in this encounter Additional Health Concerns Assessment Noted Time PHQ-9 Depression Total Score: 0 09/03/19 9:55 AM EDT documented as of this encounter Care Teams Grain Elevator Operator Relationship Specialty Start Date End Date Gemini Chavez MD [address] [place] [address] PCP - General Family Medicine 01/21/18 [employer] 03/28/24 documented as of this encounter
--- OUTSIDE RECORDS SUMMARY | 2025-03-31 11:09 | XMS_ITS | Encounter Summary ---
Author Organization [employer] Address [address] [facility] 7t [place] [address] Care Team Providers Care Health Occupations Instructor Name Role Phone Gemini Chavez MD Primary Care Provide r Reason for Visit * Reason Comments Med Refill Encounter Details Date Type Department Care Team ([facility] st Contact Info) Description 10/16/2024 Refill [facility] MEDICINE 230 [place], [place] [phone] Gemini Chavez MD 230 [place] [address] Prediabetes Social History Tobacco Use Types Packs/Day [...] documented as of this encounter Care Teams Health Occupations Instructor Relationship Specialty Start Date End Date Gemini Chavez MD [address] [place] [address] PCP - General Family Medicine 01/21/18 [employer] 03/28/24 documented as of this encounter
== END 2025-03-31 10:17 | disposition home or self-care (01) ==
LOC: HO.HOS 09:05
PROVIDERS: PCP Internal Medicine; Visit Provider Physician Assistant
DX: M75.02 Adhesive capsulitis of left shoulder (principal)
CPT/HCPCS: 99213

== ENCOUNTER → 2025-03-31 09:04 | Outpatient (BNVA) | payer OTHER, SELFPAY | PROVIDERS: PCP Internal Medicine; Visit Provider Physician Assistant | DX: M75.02 Adhesive capsulitis of left shoulder (principal) | CPT/HCPCS: 99212 ==

== ENCOUNTER 2025-04-21 13:26 | Outpatient (AMB) | payer OTHER, SELFPAY ==
--- NOTE | 2025-04-21 13:58 | MHC.OFFVIS ---
Vital Signs 04/21/25 14:07 Height 5 ft 6 in Weight 210 lb BMI 33.9 BP 132/86 Blood Pressure Location Rt brachial Position Sitting Pulse 86 Pulse Source Pulse Oximeter Pulse Oximetry (%) 96 Oxygen Delivery Method Room Air Intake Visit Reasons: Adhesive capsulitis of left shoulder Intake Note: Pain today 12/19 Assistant Football Coach Required: Yes Assistant Football Coach Language: Economic Adviser Services: Assistant Football Coach Present Assistant Football Coach Name: Ivanna Ross [id number] Information Interpreted: non-clinical & clinical Accompanied by: Self / Same As Patient Allergies Iodinated Contrast Media (CONTRAST, IV) Allergy (Intermediate, Verified 04/21/25 14:11) HIVES (X1 occurrence only) kiwi (KIWI) Allergy (Intermediate, Verified 04/21/25 14:11) THROAT SWELLING HPI Comments Details: The patient is a 69 year old male presenting for an initial evaluation for left shoulder pain. He was referred by [facility] for left shoulder adhesive capsulitis, which began about a year ago with an unknown cause. He reports having received one cortisone injection, which provided slight relief, and has also attended physical therapy without any improvement. An MRI revealed a small rotator cuff tear. His Orthopedist felt that the risks of rotator cuff surgery outweighed the benefits due to his significant medical history, including significant cardiac history, and the surgery was canceled. His past medical history is significant for atrial fibrillation (for which he takes Eliquis prescribed by his analog device designer), peripheral vascular disease, COPD, diabetes, venous insufficiency, hypertension, and ascending aortic dilatation. His most recent HbA1c was 6.4% on 03/23/25. Functionally, he lives alone, drives, and does his own grocery shopping. His use of the left arm is very limited due to pain and limited movement. Pain Description - Onset: The patient has had left shoulder pain for approximately one year. - Location: The pain is in the whole left shoulder, radiating from the back to the front. - Quality: The pain is described as aching, sore, hurting, heavy, and tight. - Interference with Activities: The pain and stiffness limit his ability to lift or raise his left arm above heart level and cause difficulty reaching his backside pocket. - Exacerbating Factors: He is able to sleep on his left side, but when he wakes up, the pain is unbearable. Movements, carrying, lifting, pulling. Physical therapy aggravated his pain symptoms. - Relieving Factors: A prior cortisone injection helped a little bit. Pain Management - Affect: The patient's mood was not explicitly discussed, though he initially stated he would rather have the pain than receive injections. - Analgesia: The patient does not take any medications for pain at home and does not want a prescription for pain medication. - Adverse Effects: Not applicable as he is not taking pain medications. - Activities of Daily Living: The pain and stiffness from his left shoulder adhesive capsulitis and small rotator cuff tear limit his ability to lift his arm or reach behind his back. - Aberrant Drug Related Behaviors: None noted [facility] Medical History Asthma Ascending aorta dilatation Diabetes Hoarseness Dysphagia Colon cancer screening Throat disorder Bronchitis CHF (congestive heart failure) Afib Allergic rhinitis COPD (chronic obstructive pulmonary disease) CE (obstructive sleep apnea) Obesity (BMI 30-39.9) Hypothyroid Anxiety Palpitation HTN (hypertension) Surgical History Hx of umbilical hernia repair History of surgery on arm Hx of eye surgery Hx of colonoscopy Hx of knee surgery Hx of tonsillectomy Family History Family/Other No problems noted. Social History Household Members: None Housing: Apartment Are you a primary disabilities caregiver to a significant other at home: No Do you presently have visiting nurse or other home services: Yes ([employer]PER[employer]) Alcohol intake: former Patient Tobacco Use Status: Former Tobacco user Tobacco use type: Cigarette Advance Directives Date on File: 08/11/23 service: No Current occupational status: disabled Current occupation: right hand dominant Review of Systems Narrative - Musculoskeletal: Reports chronic left shoulder pain, stiffness, and aching. - General: Reports disturbed sleep due to shoulder pain, waking with unbearable pain. Const All systems reviewed & are unremarkable except as noted in HPI and below Physical Exam Vital Signs: Last Vital Signs Pulse 86 04/21/25 14:07 BP 132/86 04/21/25 14:07 Pulse Ox 96 04/21/25 14:07 Oxygen Delivery Method Room Air 04/21/25 14:07 BMI result Body Mass Index 33.9 General: Appears afebrile. Alert and oriented. Mood and affect appropriate. Follows and participates in conversation appropriately. Respiratory effort is unlabored. No cough. Able to transition from sit to stand unassisted. Uses cane with ambulation. Ambulates with bilaterally normal heel strike and toe off. Antalgic gait. Extrem Left upper extremity: shoulder/upper arm (Limited ROM due to pain. Unable lift arm above shoulder level.) Details: inspection abnormal, tenderness Location: of the A-C joint, over the biceps tendon and over the subacromial bursa and crepitus; no swelling, no ecchymosis, no deformity and no unsual warmth Assessment & Plan Assessment & Plan (1) Tear of left rotator cuff: Code(s): M75.102 - Unspecified rotator cuff tear or rupture of left shoulder, not specified as traumatic Category: Medical (2) Arthritis of left shoulder: Code(s): M19.012 - Primary osteoarthritis, left shoulder Category: Medical (3) Adhesive capsulitis of left shoulder: Code(s): M75.02 - Adhesive capsulitis of left shoulder Category: Medical (4) Chronic left shoulder pain: Code(s): M25.512 - Pain in left shoulder; G89.29 - Other chronic pain Category: Medical Plan The patient was educated on options for his left shoulder adhesive capsulitis, as his significant comorbidities, particularly cardiac disease, preclude him from being a candidate for surgery. Interventional procedures, including peripheral nerve stimulation (PNS) and radiofrequency ablation (RFA), were discussed as alternatives that could offer long-term pain relief. It was explained that to qualify for these procedures, a diagnostic suprascapular nerve block injection is required. He will be scheduled for a left diagnostic suprascapular nerve block with local and fluoroscopy for potential peripheral nerve stimulation. Expectations, risks and benefits were reviewed. Patient is aware he will be contacted to schedule this procedure. Cardiology will be consulted to obtain clearance for temporarily holding his Eliquis prior to the procedure. The patient was provided with educational materials in Armenian regarding the proposed treatments. All questions and concerns have been answered and patient agreed with the treatment plan. Follow up after injection and sooner as needed. Patient was informed and verbally consented to the use of an ambient scribe for clinic note documentation during this visit. Coding Level of Care Code New Pt Level 4 (81654) Diagnoses Tear of left rotator cuff M75.102 Arthritis of left shoulder M19.012 Adhesive capsulitis of left shoulder M75.02 Chronic left shoulder pain M25.512; G89.29
[2025-04-21 14:07] VITALS: BP 132/86; PULSE 86; O2SAT 96; BMI 33.9
== END 2025-04-21 14:52 | disposition home or self-care (01) ==
LOC: HO.PMC 13:26
PROVIDERS: PCP Internal Medicine; Visit Provider Nurse Practitioner Family
DX: M75.102 Unspecified rotator cuff tear or rupture of left shoulder, not specified as traumatic (principal); M19.012 Primary osteoarthritis, left shoulder; M75.02 Adhesive capsulitis of left shoulder; M25.512 Pain in left shoulder; G89.29 Other chronic pain
CPT/HCPCS: 99204

== ENCOUNTER → 2025-04-21 13:26 | Outpatient (BNVA) | payer OTHER, SELFPAY | PROVIDERS: PCP Internal Medicine; Visit Provider Nurse Practitioner Family | DX: M19.012 Primary osteoarthritis, left shoulder (principal); M75.02 Adhesive capsulitis of left shoulder; M75.102 Unspecified rotator cuff tear or rupture of left shoulder, not specified as traumatic; G89.29 Other chronic pain | CPT/HCPCS: 99202 ==